=== PATIENT | male | born 1945 | race Caucasian/White ===

== ENCOUNTER 2023-02-10 11:54 | Outpatient (OUT) | payer MEDICARE, MEDICAID, SELFPAY ==
[2023-02-10 12:50] LABS: Basophils Percent Auto 0.4 % (0.2-2.0); Eosinophils Absolute Auto 0.1 10^3/uL (0.0-0.7); Eosinophils Percent Auto 1.3 % (0.9-7.0); Hematocrit 43.6 % (42.0-54.0); Immature Granulocytes Abs Auto 0.02 10^3/uL (0.00-0.03); Immature Granulocytes Pct Auto 0.3 % (0.0-0.5); Lymphocytes Absolute Auto 1.3 10^3/uL (1.2-3.8); Lymphocytes Percent Auto 18.8 % (20.5-60.0); Mean Corpuscular HGB Conc 32.1 g/dL (29.9-35.2); Mean Corpuscular Hemoglobin 28.3 pg (25.9-34.0); Mean Corpuscular Volume 88.1 fL (80.0-94.0); Mean Platelet Volume 12.8 fL (9.5-13.5); Monocytes Absolute Auto 0.7 10^3/uL (0.3-0.8); Monocytes Percent Auto 9.9 % (1.7-12.0); Neutrophils Absolute Auto 4.7 10^3/uL (1.4-6.5); Neutrophils Percent Auto 69.3 % (43.0-75.0); Platelet Count 153 10^3/uL (150-450); Red Blood Count 4.95 10^6/uL (4.70-6.10); Red Cell Distribution Width 14.8 % (11.0-15.0); White Blood Count 6.8 10^3/uL (4.0-11.0)
[2023-02-10 14:02] LABS: Alanine Aminotransferase 16 U/L (16-63); Albumin Globulin Ratio 0.9; Albumin Level 3.4 g/dL (3.4-5.0); Alkaline Phosphatase 77 U/L (46-116); Anion Gap 10.3; Aspartate Amino Transferase 18 U/L (15-37); BUN Creatinine Ratio 11.3; Bilirubin Total 0.7 mg/dL (0.2-1.0); Calcium 9.4 mg/dL (8.5-10.1); Carbon Dioxide 29.7 mmol/L (21.0-32.0); Chloride 104 mmol/L (98-107); Chol HDL Ratio 2.6; Cholesterol 108 mg/dL (<=200); Estimated GFR (African America >60 (>=60); Estimated GFR (Non-African Ame 52 (>=60); Globulin 3.6 g/dL; Glucose 124 mg/dL (74-106); HDL Cholesterol 42 mg/dL (40-60); LDL Cholesterol Calculated 52.6 mg/dL; Sodium 140 mmol/L (136-145); Triglycerides 67 mg/dL (<=150); Uric Acid 9.3 mg/dL (3.5-7.2); VLDL CHOLESTEROL 13.4 mg/dL
== END 2023-02-10 11:55 ==
LOC: LAB 12:00
PROVIDERS: PCP Internal Medicine; Visit Provider Internal Medicine
DX: J44.9 Chronic obstructive pulmonary disease, unspecified (principal); I73.9 Peripheral vascular disease, unspecified; F33.9 Major depressive disorder, recurrent, unspecified; I48.0 Paroxysmal atrial fibrillation; N18.31 Chronic kidney disease, stage 3a; I50.43 Acute on chronic combined systolic (congestive) and diastolic (congestive) heart failure; M48.05 Spinal stenosis, thoracolumbar region; E78.00 Pure hypercholesterolemia, unspecified; I13.0 Hypertensive heart and chronic kidney disease with heart failure and stage 1 through stage 4 chronic kidney disease, or unspecified chronic kidney disease; E79.0 Hyperuricemia without signs of inflammatory arthritis and tophaceous disease
CPT/HCPCS: 36415; 80053; 80061; 84550; 85025

== ENCOUNTER 2023-08-26 13:36 | Outpatient (OUT) | payer MEDICARE, MEDICAID, SELFPAY ==
--- NOTE | 2023-08-26 | XR_ITS ---
[place] [id number] Patient Name: CHOCO WHITE MRN: [id number] date: 1945 Sex: M Assigned Patient Location: [facility] Current Patient Location: Accession/Order Number: [id number] Exam Date: 08/26/2023 14:30 Report Date: 08/28/2023 06:56 At the request of: SAMEER DAVIS Procedure: XR foot LT min 3V PROCEDURE: XR ankle LT min 3V, XR foot LT min 3V HISTORY: LEFT ANKLE PAIN COMPARISON: None. 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 Old, ununited fracture of the lateral malleolus above the level of the ankle joint . Mild degenerative changes of the midfoot and first metatarsophalangeal joint. SOFT TISSUES:Soft tissue swelling surrounding the ankle. Marked atherosclerotic disease. EFFUSION:None visible. OTHER: Negative. XR/XR foot LT min 3V IMPRESSION: 1. Remote fracture of lateral malleolus without visible osseous union. 2. 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 Electronically authenticated by: MABEL BARCLAY Date: 08/28/2023 06:56
--- NOTE | 2023-08-26 | XR_ITS ---
[place] [id number] Patient Name: CHOCO WHITE MRN: [id number] date: 1945 Sex: M Assigned Patient Location: [facility] Current Patient Location: Accession/Order Number: [id number] Exam Date: 08/26/2023 14:30 Report Date: 08/28/2023 06:56 At the request of: SAMEER DAVIS Procedure: XR ankle LT min 3V PROCEDURE: XR ankle LT min 3V, XR foot LT min 3V HISTORY: LEFT ANKLE PAIN COMPARISON: None. 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 Old, ununited fracture of the lateral malleolus above the level of the ankle joint . Mild degenerative changes of the midfoot and first metatarsophalangeal joint. SOFT TISSUES:Soft tissue swelling surrounding the ankle. Marked atherosclerotic disease. EFFUSION:None visible. OTHER: Negative. XR/XR ankle LT min 3V IMPRESSION: 1. Remote fracture of lateral malleolus without visible osseous union. 2. 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 Electronically authenticated by: MABEL BARCLAY Date: 08/28/2023 06:56
== END 2023-08-26 13:37 | disposition home or self-care (01) ==
LOC: RAD 13:39
PROVIDERS: PCP Internal Medicine; Visit Provider Podiatrist Foot & Ankle Surgery
DX: M79.672 Pain in left foot (principal); M25.572 Pain in left ankle and joints of left foot; M19.072 Primary osteoarthritis, left ankle and foot
CPT/HCPCS: 73610; 73630

== ENCOUNTER 2023-09-07 12:20 | Outpatient (OUT) | payer MEDICARE, MEDICAID, SELFPAY ==
--- OUTSIDE RECORDS SUMMARY | 2023-09-07 12:26 | XMS_ITS | CCD ---
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 Name Role Phone PROVIDER, UNKNOWN Attending Unavailable PROVIDER, UNKNOWN Admitting Unavailable PROVIDER, UNKNOWN Attending Unavailable PROVIDER, UNKNOWN Admitting Unavailable PROVIDER, UNKNOWN Attending Unavailable PROVIDER, UNKNOWN Admitting Unavailable PATIENT, SELF Referring Unavailable PROVIDER, UNKNOWN Attending Unavailable PROVIDER, UNKNOWN Admitting Unavailable PROVIDER, UNKNOWN Attending Unavailable PROVIDER, UNKNOWN Admitting Unavailable PROVIDER, UNKNOWN Admitting Unavailable PROVIDER, UNKNOWN Attending Unavailable PROVIDER, UNKNOWN Attending Unavailable PROVIDER, UNKNOWN Admitting Unavailable VALLIER, DWAINE A. Referring Unavailable PROVIDER, UNKNOWN Attending Unavailable VALLIER, DWAINE A. Referring Unavailable PROVIDER, UNKNOWN Admitting Unavailable PROVIDER, UNKNOWN Attending Unavailable PROVIDER, UNKNOWN Admitting Unavailable VALLIER, DWAINE A. Referring Unavailable PROVIDER, UNKNOWN Attending Unavailable PROVIDER, UNKNOWN Admitting Unavailable VALLIER, DWAINE A. Referring Unavailable PROVIDER, UNKNOWN Attending Unavailable PROVIDER, UNKNOWN Admitting Unavailable PROVIDER, UNKNOWN Attending Unavailable PROVIDER, UNKNOWN Admitting Unavailable PROVIDER, UNKNOWN Admitting Unavailable PROVIDER, UNKNOWN Attending Unavailable PROVIDER, UNKNOWN Attending Unavailable PROVIDER, UNKNOWN Admitting Unavailable PROVIDER, UNKNOWN Admitting Unavailable PROVIDER, UNKNOWN Attending Unavailable PROVIDER, UNKNOWN Admitting Unavailable PROVIDER, UNKNOWN Attending Unavailable PROVIDER, UNKNOWN Attending Unavailable PROVIDER, UNKNOWN Admitting Unavailable PROVIDER, UNKNOWN Admitting Unavailable PROVIDER, UNKNOWN Attending Unavailable PROVIDER, UNKNOWN Admitting Unavailable PROVIDER, UNKNOWN Attending Unavailable PROVIDER, UNKNOWN Admitting Unavailable PROVIDER, UNKNOWN Attending Unavailable PROVIDER, UNKNOWN Attending Unavailable PROVIDER, UNKNOWN Admitting Unavailable PATIENT, SELF Referring Unavailable PROVIDER, UNKNOWN Attending Unavailable PROVIDER, UNKNOWN Admitting Unavailable PROVIDER, UNKNOWN Admitting Unavailable PROVIDER, UNKNOWN Attending Unavailable HAJDARI, ASTRIT Referring Unavailable SEGOVIA, NIMITT Admitting Unavailable PROVIDER, UNKNOWN Attending Unavailable HAJDARI, ASTRIT Referring Unavailable SEGOVIA, NIMITT Admitting Unavailable PROVIDER, UNKNOWN Attending Unavailable HAJDARI, ASTRIT Referring Unavailable PROVIDER, UNKNOWN Attending Unavailable PROVIDER, UNKNOWN Admitting Unavailable PROVIDER, UNKNOWN Admitting Unavailable PROVIDER, UNKNOWN Attending Unavailable PROVIDER, UNKNOWN Attending Unavailable PROVIDER, UNKNOWN Admitting Unavailable PROVIDER, UNKNOWN Attending Unavailable PROVIDER, UNKNOWN Admitting Unavailable PROVIDER, UNKNOWN Attending Unavailable PROVIDER, UNKNOWN Admitting Unavailable PROVIDER, UNKNOWN Attending Unavailable PROVIDER, UNKNOWN Admitting Unavailable PROVIDER, UNKNOWN Admitting Unavailable PROVIDER, UNKNOWN Attending Unavailable HAJDARI, ASTRIT Referring Unavailable CARLA MORSE Attending Unavailable CONSULT, IP ORTHOPAEDIC TRAUMA Consulting U navailable SEGOVIA, NIMITT Admitting Unavailable REQUEST, IP PHYSICAL THERAPY SERVICE Consulting Unavailable REQUEST, IP OCCUPATIONAL THERAPY SERVICE Consult ing Unavailable CONSULT, NEUROCRITICAL Consulting Unavailab le CONSULT, IP SURGERY VASCULAR Consulting Usha vailable CONSULT, IP SURGERY NEURO Consulting Unavai lable REQUEST, IP HYPERBARIC NURSE SERVICE Consul ting Unavailable CONSULT, IP CARDIOLOGY ELECTROPHYSIOLOGY (EP) Co nsulting Unavailable REQUEST, IP BANDER OPERATOR SERVICE Consulting Unavaila ble CONSULT, IP DENTISTRY ADULT Consulting Unav ailable HAJDARI, ASTRIT Referring Unavailable SEGOVIA, NIMITT Admitting Unavailable PROVIDER, UNKNOWN Attending Unavailable PROVIDER, UNKNOWN Attending Unavailable PROVIDER, UNKNOWN Admitting Unavailable PATIENT, SELF Referring Unavailable PROVIDER, UNKNOWN Attending Unavailable PROVIDER, UNKNOWN Admitting Unavailable PROVIDER, UNKNOWN Attending Unavailable PROVIDER, UNKNOWN Admitting Unavailable DWAINE SANTOS Referring Unavailable DWAINE SANTOS Attending Unavailable DWAINE SANTOS Referring Unavailable DWAINE SANTOS Admitting Unavailable PROVIDER, UNKNOWN Admitting Unavailable PROVIDER, UNKNOWN Attending Unavailable PROVIDER, UNKNOWN Admitting Unavailable PROVIDER, UNKNOWN Attending Unavailable PROVIDER, UNKNOWN Admitting Unavailable PROVIDER, UNKNOWN Attending Unavailable Lopze MCKINNEY Attending Unavailable DR KARTHIK IRELAND Admitting Unavailable DR KARTHIK IRELAND Attending Unavailable DR KARTHIK IRELAND Primary Care Unavailable DR KARTHIK IRELAND Consulting Unavailable DR KARTHIK IRELAND Admitting Unavailable DR KARTHIK IRELAND Attending Unavailable DR KARTHIK IRELAND Primary Care Unavailable DR KARTHIK IRELAND Consulting Unavailable DR KARTHIK IRELAND Admitting Unavailable DR KARTHIK IRELAND Attending Unavailable DR KARTHIK IRELAND Primary Care Unavailable DR KARTHIK IRELAND Consulting Unavailable Allergies Allergy Classification Reported Allergen(s) Allergy Type Date of Onset Reaction(s) Facility (1 source) SULFA DRUGS CROSS REACTORS; Translations: [SULFA DRUGS CROSS REACTORS] Propensity to adverse reactions to drug (disorder) 1 [facility] Repository (1 source) Sulfamethoxazole ; Translations: [sulfamethoxazol e] Drug Allergy [facility] Repository (1 source) Unable to obtain; Translations: [Unable to obtain] Propensity to adverse reactions (disorder) [facility] Repository (1 source) Sulfonamides (Antibiotic) Drug allergy (disorder) 4 [facility] Repository Problems Active Problems Problem Classification Problem Date Documented Date Episodic/Chronic Cardiac dysrhythmias (2 sources) Unspecified atrial fibrillation; Translations: [Paroxysmal atrial fibrillation] Onset: 2 Chronic Chronic obstructive pulmonary disease and bronchiectasis (5 sources) Chronic obstructive pulmonary disease, unspecified; Translations: [COPD UNSPECIFIED] Onset: 2 Chronic Congestive heart failure; nonhypertensive (1 source) Chronic combined systolic (congestive) and diastolic (congestive) heart failure; Translations: [CHRON COMB SYSTOLIC AND DIASTOLIC CHF] Onset: 2 Chronic Coronary atherosclerosis and other heart disease (1 source) Atherosclerotic heart disease of [place] coronary artery without angina pectoris; Translations: [ASHD NEZ PERCE CA W/O ANGINA PECTORIS] Onset: 2 Chronic Disorders of lipid metabolism (1 source) Pure hypercholesterolemia, unspecified; Translations: [PURE HYPERCHOLESTEROLEMIA UNSPEC] Onset: 2 Chronic Essential hypertension (5 sources) Essential (primary) hypertension; Translations: [ESSENTIAL PRIMARY HYPERTENSION] Onset: 2 Chronic Hypertension with complications and secondary hypertension (1 source) Hypertensive heart disease with heart failure; Translations: [HTN HEART DISEASE W/HEART FAIL] Onset: 2 Chronic Nutritional deficiencies (1 source) Vitamin D deficiency, unspecified; Translations: [VITAMIN D DEFICIENCY UNSPECIFIED] Onset: 2 Chronic Other nervous system disorders (1 source) Chronic pain syndrome; Translations: [CHRONIC PAIN SYNDROME] Onset: 2 Chronic Other nutritional; endocrine; and metabolic disorders (1 source) Hyperuricemia without signs of inflammatory arthritis and tophaceous disease; Translations: [HU W/O SIGNS IA AND TOPHACEOUS DZ] Onset: 3 Episodic Past or Other Problems Problem Classification Problem Date Documented Da te Episodic/Chronic Acute and unspecified renal failure (1 source) Acute kidney failure, unspecified; Translations: [ACUTE KIDNEY FAILURE UNSPECIFIED] Onset: 07-13-2022 Episodic Deficiency and other anemia (1 source) Anemia, unspecified; Translations: [ANEMIA UNSPECIFIED] Onset: 07-13-2022 Episodic Other aftercare (1 source) Other supervisor intermediates (current) drug therapy; Translations: [OTH SENIOR CARE CURRENT DRUG THERAPY] Onset: 07-13-2022 Episodic Other screening for suspected conditions (not mental disorders or infectious disease) (4 sources) Encounter for screening for malignant neoplasm of prostate; Translations: [ENC SCREEN MALIG NEOPLASM PROSTATE] Onset: 07-08-2022 Episodic Residual codes; unclassified (1 source) Edema, unspecified; Translations: [EDEMA UNSPECIFIED] Onset: 02-21-2022 Episodic Results Test Name Value Interpretation Reference Range Facility CBC AUTO DIFFon 11-10-2022 BASO # 0.0 103/ul Normal 0.0-0.1 [facility] Comment on above: Performed By: #### C BC #### [facility] [address] [place] [address] Dr. Karen Marie Basophils/100 WBC (Bld) 0.4 % Normal 0.2-2.0 [facility] Comment on above: Performed By: #### C BC #### [facility] [address] [address] [address] Karen Marie EO # 0.1 103/ul Normal 0.0-0.7 [facility] Comment on above: Performed By: #### C BC #### [facility] [address] [address] [address] Karen Marie Eosinophils/100 WBC (Bld) 1.9 % Normal 0.9-7.0 [facility] Comment on above: Performed By: #### C BC #### [facility] [address] [address] [address] Karen Marie Erythrocyte distribution width (RBC) [Ratio] 16.1 % Critically high 11.0-15.0 [facility] Comment on above: Performed By: #### C BC #### [facility] [address] [place] [address] Dr. Karen Marie Hematocrit (Bld) [Volume fraction] 42.5 % Normal 42.0-54.0 [facility] Comment on above: Performed By: #### C BC #### [facility] [address] [address] [address] Karen Marie Hemoglobin (Bld) [Mass/Vol] 13.5 g/dL Critically low 14.0-18.0 [facility] Comment on above: Performed By: #### C BC #### [facility] [address] [address] [address] Karen Marie IG # 0.03 10e3/ul Normal 0.00-0.03 [facility] Comment on above: Performed By: #### C BC #### [facility] [address] [place] [address] Dr. Karen Marie IG % 0.4 % Normal 0.0-0.5 [facility] Comment on above: Performed By: #### C BC #### [facility] [address] [place] [address] Dr. Karen Marie LYMPH # 1.7 103/ul Normal 1.2-3.8 [facility] Comment on above: Performed By: #### C BC #### [facility] [address] [place] [address] Dr. Karen Marie Lymphocytes/100 WBC (Bld) 22.3 % Normal 20.5-60.0 [facility] Comment on above: Performed By: #### C BC #### [facility] [address] [place] [address] Dr. Karen Marie MANUAL DIFF REQ NO Normal [facility] Comment on above: Performed By: #### C BC #### [facility] [address] [place] [address] Dr. Karen Marie MCH (RBC) [Entitic mass] 27.8 pg Normal 25.9-34.0 [facility] Comment on above: Performed By: #### C BC #### [facility] [address] [place] [address] Dr. Karen Marie MCHC (RBC) [Mass/Vol] 31.8 g/dL Normal 29.9-35.2 [facility] Comment on above: Performed By: #### C BC #### [facility] [address] [address] [address] Karen Marie MCV (RBC) [Entitic vol] 87.4 fL Normal 80.0-94.0 [facility] Comment on above: Performed By: #### C BC #### [facility] [address] [address] [address] Karen Marie MONO # 0.9 103/ul Critically high 0.3-0.8 [facility] Comment on above: Performed By: #### C BC #### [facility] [address] [address] [address] Karen Marie Monocytes/100 WBC (Bld) 11.4 % Normal 1.7-12.0 [facility] Comment on above: Performed By: #### C BC #### [facility] [address] [place] [address] Dr. Karen Marie NEUT # 4.7 103/ul Normal 1.4-6.5 [facility] Comment on above: Performed By: #### C BC #### [facility] [address] [address] [address] Karen Marie Neutrophils/100 WBC (Bld) 63.6 % Normal 43.0-75.0 [facility] Comment on above: Performed By: #### C BC #### [facility] [address] [address] [address] Karen Marie Platelet mean volume (Bld) [Entitic vol] 11.9 fL Normal 9.5-13.5 [facility] Comment on above: Performed By: #### C BC #### [facility] [address] [address] [address] Karen Marie PLT 162 103/ul Normal 150-450 [facility] Comment on above: Performed By: #### C BC #### [facility] [address] [address] [address] Karen Marie RBC 4.86 106/ul Normal 4.70-6.10 [facility] Comment on above: Performed By: #### C BC #### [facility] [address] [address] [address] Karen Marie WBC 7.4 103/ul Normal 4.0-11.0 [facility] Comment on above: Performed By: #### C BC #### [facility] [address] [address] [address] Karen Marie PROF 14(COMP METB)on 023 Albumin [Mass/Vol] 3.8 g/dL Normal 3.4-5.0 [facility] Comment on above: Performed By: #### P SAD, FERR, FETIBC #### [facility] [address] [address] [address] Karen Marie Albumin/Globulin [Mass ratio] 1.1 {ratio} Normal [facility] Comment on above: Performed By: #### P SAD, FERR, FETIBC #### [facility] [address] [address] [address] Karen Marie ALP [Catalytic activity/Vol] 79 U/L Normal 46-116 [facility] Comment on above: Performed By: #### P SAD, FERR, FETIBC #### [facility] [address] [address] [address] Karen Marie ALT [Catalytic activity/Vol] 15 U/L Critically low 16-63 [facility] Comment on above: Performed By: #### P SAD, FERR, FETIBC #### [facility] [address] [address] [address] Karen Marie Anion gap [Moles/Vol] 12.3 mmol/L Normal [facility] Comment on above: Performed By: #### P SAD, FERR, FETIBC #### [facility] [address] [address] [address] Karen Marie AST [Catalytic activity/Vol] 17 U/L Normal 15-37 [facility] Comment on above: Performed By: #### P SAD, FERR, FETIBC #### [facility] [address] [address] [address] Karen Marie Bilirubin [Mass/Vol] 0.9 mg/dL Normal 0.2-1.0 [facility] Comment on above: Performed By: #### P SAD, FERR, FETIBC #### [facility] [address] [address] [address] Karen Marie Calcium [Mass/Vol] 9.3 mg/dL Normal 8.5-10.1 [facility] Comment on above: Performed By: #### P SAD, FERR, FETIBC #### [facility] [address] [place] [address] Dr. Karen Marie Chloride [Moles/Vol] 103 mmol/L Normal 98-107 [facility] Comment on above: Performed By: #### P SAD, FERR, FETIBC #### [facility] [address] [place] [address] Dr. Karen Marie CO2 [Moles/Vol] 30.7 mmol/L Normal 21.0-32.0 [facility] Comment on above: Performed By: #### P SAD, FERR, FETIBC #### [facility] [address] [place] [address] Dr. Karen Marie Creatinine [Mass/Vol] 1.37 mg/dL Critically high 0.70-1.30 [facility] Comment on above: Performed By: #### P SAD, FERR, FETIBC #### [facility] [address] [place] [address] Dr. Karen Marie EGFR-AF GERMAN >60 Normal >=60 [facility] Comment on above: Performed By: #### P SAD, FERR, FETIBC #### [facility] [address] [place] [address] Dr. Karen Marie EGFR-NON AF GERMAN 51 mL/min/1.73m2 Critically low >=60 [facility] Comment on above: Performed By: #### P SAD, FERR, FETIBC #### [facility] [address] [place] [address] Dr. Karen Marie Globulin (S) [Mass/Vol] 3.5 g/dL Normal [facility] Comment on above: Performed By: #### P SAD, FERR, FETIBC #### [facility] [address] [address] [address] Karen Marie Glucose [Mass/Vol] 102 mg/dL Normal 74-106 [facility] Comment on above: Performed By: #### P SAD, FERR, FETIBC #### [facility] [address] [place] [address] Dr. Karen Marie Potassium [Moles/Vol] 4.0 mmol/L Normal 3.5-5.1 [facility] Comment on above: Performed By: #### P SAD, FERR, FETIBC #### [facility] [address] [place] [address] Dr. Karen Marie Protein [Mass/Vol] 7.3 g/dL Normal 6.4-8.2 [facility] Comment on above: Performed By: #### P SAD, FERR, FETIBC #### [facility] [address] [place] [address] Dr. Karen Marie Sodium [Moles/Vol] 142 mmol/L Normal 136-145 [facility] Comment on above: Performed By: #### P SAD, FERR, FETIBC #### [facility] [address] [place] [address] Dr. Karen Marie Urea nitrogen [Mass/Vol] 16.0 mg/dL Normal 7.0-18.0 [facility] Comment on above: Performed By: #### P SAD, FERR, FETIBC #### [facility] [address] [place] [address] Dr. Karen Marie Urea nitrogen/Creatinine [Mass ratio] 11.7 mg/mg Normal [facility] Comment on above: Performed By: #### P SAD, FERR, FETIBC #### [facility] [address] [place] [address] Dr. Karen Marie URIC ACID SERUMon 11-10-2022 Urate [Mass/Vol] 8.9 mg/dL Critically high 3.5-7.2 [facility] Comment on above: Performed By: #### P SAD, FERR, FETIBC #### [facility] [address] [place] [address] Dr. Karen Marie Lab Reportson 07-14-2022 Lab Reports [id number] #[id number]:127 Normal [facility] Lab Reports [id number] #[id number]:127 Normal [facility] CBC AUTO DIFFon 07-08-2022 BASO # 0.0 103/ul Normal 0.0-0.1 [facility] Comment on above: Performed By: #### P SAD, FERR, FETIBC #### [facility] [address] [address] [address] Karen Marie Basophils/100 WBC (Bld) 0.4 % Normal 0.2-2.0 [facility] Comment on above: Performed By: #### P SAD, FERR, FETIBC #### [facility] [address] [place] [address] Dr. Karen Marie EO # 0.1 103/ul Normal 0.0-0.7 [facility] Comment on above: Performed By: #### P SAD, FERR, FETIBC #### [facility] [address] [address] [address] Karen Marie Eosinophils/100 WBC (Bld) 1.7 % Normal 0.9-7.0 [facility] Comment on above: Performed By: #### P SAD, FERR, FETIBC #### [facility] [address] [address] [address] Karen Marie Erythrocyte distribution width (RBC) [Ratio] 13.6 % Normal 11.0-15.0 [facility] Comment on above: Performed By: #### P SAD, FERR, FETIBC #### [facility] [address] [place] [address] Dr. Karen Marie Hematocrit (Bld) [Volume fraction] 43.3 % Normal 42.0-54.0 [facility] Comment on above: Performed By: #### P SAD, FERR, FETIBC #### [facility] [address] [place] [address] Dr. Karen Marie Hemoglobin (Bld) [Mass/Vol] 14.3 g/dL Normal 14.0-18.0 [facility] Comment on above: Performed By: #### P SAD, FERR, FETIBC #### [facility] [address] [place] [address] Dr. Karen Marie IG # 0.01 10e3/ul Normal 0.00-0.03 [facility] Comment on above: Performed By: #### P SAD, FERR, FETIBC #### [facility] [address] [place] [address] Dr. Karen Marie IG % 0.1 % Normal 0.0-0.5 [facility] Comment on above: Performed By: #### P SAD, FERR, FETIBC #### [facility] [address] [place] [address] Dr. Karen Marie LYMPH # 1.9 103/ul Normal 1.2-3.8 [facility] Comment on above: Performed By: #### P SAD, FERR, FETIBC #### [facility] [address] [place] [address] Dr. Karen Marie Lymphocytes/100 WBC (Bld) 27.7 % Normal 20.5-60.0 [facility] Comment on above: Performed By: #### P SAD, FERR, FETIBC #### [facility] [address] [place] [address] Dr. Karen Marie MANUAL DIFF REQ NO Normal [facility] Comment on above: Performed By: #### P SAD, FERR, FETIBC #### [facility] [address] [place] [address] Dr. Karen Marie MCH (RBC) [Entitic mass] 29.9 pg Normal 25.9-34.0 [facility] Comment on above: Performed By: #### P SAD, FERR, FETIBC #### [facility] [address] [place] [address] Dr. Karen Marie MCHC (RBC) [Mass/Vol] 33.0 g/dL Normal 29.9-35.2 [facility] Comment on above: Performed By: #### P SAD, FERR, FETIBC #### [facility] [address] [place] [address] Dr. Karen Marie MCV (RBC) [Entitic vol] 90.6 fL Normal 80.0-94.0 [facility] Comment on above: Performed By: #### P SAD, FERR, FETIBC #### [facility] [address] [place] [address] Dr. Karen Marie MONO # 0.8 103/ul Normal 0.3-0.8 [facility] Comment on above: Performed By: #### P SAD, FERR, FETIBC #### [facility] [address] [place] [address] Dr. Karen Marie Monocytes/100 WBC (Bld) 11.1 % Normal 1.7-12.0 [facility] Comment on above: Performed By: #### P SAD, FERR, FETIBC #### [facility] [address] [place] [address] Dr. Karen Marie NEUT # 4.1 103/ul Normal 1.4-6.5 [facility] Comment on above: Performed By: #### P SAD, FERR, FETIBC #### [facility] [address] [place] [address] Dr. Karen Marie Neutrophils/100 WBC (Bld) 59.0 % Normal 43.0-75.0 [facility] Comment on above: Performed By: #### P SAD, FERR, FETIBC #### [facility] [address] [place] [address] Dr. Karen Marie Platelet mean volume (Bld) [Entitic vol] 11.3 fL Normal 9.5-13.5 [facility] Comment on above: Performed By: #### P SAD, FERR, FETIBC #### [facility] [address] [place] [address] Dr. Karen Marie PLT 175 103/ul Normal 150-450 [facility] Comment on above: Performed By: #### P SAD, FERR, FETIBC #### [facility] [address] [place] [address] Dr. Karen Marie RBC 4.78 106/ul Normal 4.70-6.10 [facility] Comment on above: Performed By: #### P SAD, FERR, FETIBC #### [facility] [address] [address] [address] Karen Marie WBC 7.0 103/ul Normal 4.0-11.0 [facility] Comment on above: Performed By: #### P SAD, FERR, FETIBC #### [facility] [facility] [address] [address] [address] Karen Marie FERRITINon 07-08-2022 Ferritin [Mass/Vol] 43.0 ng/mL Normal 26.0-388.0 [facility] Comment on above: Performed By: #### P SAD, FERR, FETIBC #### [facility] [address] [place] [address] Dr. Karen Marie IRON AND TIBCon 07-08-2022 % SATURATION 12.7 % Normal [facility] Comment on above: Performed By: #### P SAD, FERR, FETIBC #### [facility] [address] [address] [address] Karen Marie Iron [Mass/Vol] 46.0 ug/dL Critically low 65.0-175.0 [facility] Comment on above: Performed By: #### P SAD, FERR, FETIBC #### [facility] [address] [place] [address] Dr. Karen Marie TIBC DIRECT 363.0 ug/dL Normal 250.0-450.0 [facility] Comment on above: Performed By: #### P SAD, FERR, FETIBC #### [facility] [address] [place] [address] Dr. Karen Marie LIPID PROFILEon 07-08-2022 CHOL-HDL RATIO NORM SEE BELOW Normal [facility] Comment on above: Result Comment: 3.3 - 4.4 LOW RISK 4.4 - 7.1 AVERAGE RISK 7.1 - 11.0 MODERATE RISK >11.0 HIGH RISK Performed By: #### L IPID, CMP, URIC, TSH #### [facility] [address] [address] [address] Karen Marie Cholesterol [Mass/Vol] 131 mg/dL Normal <=200 [facility] Comment on above: Performed By: #### L IPID, CMP, URIC, TSH #### [facility] [address] [address] [address] Karen Marie Cholesterol in HDL [Mass/Vol] 52 mg/dL Normal 40-60 [facility] Comment on above: Performed By: #### L IPID, CMP, URIC, TSH #### [facility] [address] [address] [address] Karen Marie Cholesterol in LDL [Mass/Vol] 59.2 mg/dL Normal [facility] Comment on above: Performed By: #### L IPID, CMP, URIC, TSH #### [facility] [address] [address] [address] Karen Marie Cholesterol.total/Chol esterol in HDL [Mass ratio] 2.5 {ratio} Normal [facility] Comment on above: Performed By: #### L IPID, CMP, URIC, TSH #### [facility] [address] [address] [address] Karen Marie HDL NORMAL > or = 60 mg/dl - LOW CARDIOVASCULAR RISK <40 mg/dl - HIGH CARDIOVASCULAR RISK Normal [facility] Comment on above: Performed By: #### L IPID, CMP, URIC, TSH #### [facility] [address] [address] [address] Karen Marie LDL CALC NORMAL SEE BELOW Normal [facility] Comment on above: Result Comment: <100 mg/dl OPTIMAL 100 - 129 mg/dl NEAR OR ABOVE OPTIMAL 130 - 159 mg/dl BORDERLINE HIGH 160 - 189 mg/dl HIGH >190 mg/dl VERY HIGH Performed By: #### L IPID, CMP, URIC, TSH #### [facility] [address] [address] [address] Karen Marie Triglyceride [Mass/Vol] 99 mg/dL Normal <=150 [facility] Comment on above: Performed By: #### L IPID, CMP, URIC, TSH #### [facility] [address] [address] [address] Karen Marie VLDL CALC 19.8 mg/dL Normal [facility] Comment on above: Performed By: #### L IPID, CMP, URIC, TSH #### [facility] [address] [address] [address] Karen Marie PROF 14(COMP METB)on 022 Albumin [Mass/Vol] 3.5 g/dL Normal 3.4-5.0 [facility] Comment on above: Performed By: #### L IPID, CMP, URIC, TSH #### [facility] [address] [address] [address] Karen Marie Albumin/Globulin [Mass ratio] 0.9 {ratio} Normal [facility] Comment on above: Performed By: #### L IPID, CMP, URIC, TSH #### [facility] [address] [place] [address] Dr. Karen Marie ALP [Catalytic activity/Vol] 83 U/L Normal 46-116 [facility] Comment on above: Performed By: #### L IPID, CMP, URIC, TSH #### [facility] [address] [address] [address] Karen Marie ALT [Catalytic activity/Vol] 13 U/L Critically low 16-63 [facility] Comment on above: Performed By: #### L IPID, CMP, URIC, TSH #### [facility] [address] [address] [address] Karen Marie Anion gap [Moles/Vol] 6.9 mmol/L Normal [facility] Comment on above: Performed By: #### L IPID, CMP, URIC, TSH #### [facility] [address] [address] [address] Karen Marie AST [Catalytic activity/Vol] 25 U/L Normal 15-37 [facility] Comment on above: Performed By: #### L IPID, CMP, URIC, TSH #### [facility] [address] [address] [address] Karen Marie Bilirubin [Mass/Vol] 0.5 mg/dL Normal 0.2-1.0 [facility] Comment on above: Performed By: #### L IPID, CMP, URIC, TSH #### [facility] [address] [place] [address] Dr. Karen Marie Calcium [Mass/Vol] 9.9 mg/dL Normal 8.5-10.1 [facility] Comment on above: Performed By: #### L IPID, CMP, URIC, TSH #### [facility] [address] [place] [address] Dr. Karen Marie Chloride [Moles/Vol] 101 mmol/L Normal 98-107 [facility] Comment on above: Performed By: #### L IPID, CMP, URIC, TSH #### [facility] [address] [place] [address] Dr. Karen Marie CO2 [Moles/Vol] 31.5 mmol/L Normal 21.0-32.0 [facility] Comment on above: Performed By: #### L IPID, CMP, URIC, TSH #### [facility] [address] [place] [address] Dr. Karen Marie Creatinine [Mass/Vol] 1.51 mg/dL Critically high 0.70-1.30 [facility] Comment on above: Performed By: #### L IPID, CMP, URIC, TSH #### [facility] [address] [place] [address] Dr. Karen Marie EGFR-AF GERMAN 55 mL/min/1.73m2 Critically low >=60 [facility] Comment on above: Performed By: #### L IPID, CMP, URIC, TSH #### [facility] [address] [place] [address] Dr. Karen Marie EGFR-NON AF GERMAN 45 mL/min/1.73m2 Critically low >=60 [facility] Comment on above: Performed By: #### L IPID, CMP, URIC, TSH #### [facility] [address] [place] [address] Dr. Karen Marie Globulin (S) [Mass/Vol] 3.9 g/dL Normal [facility] Comment on above: Performed By: #### L IPID, CMP, URIC, TSH #### [facility] [address] [place] [address] Dr. Karen Marie Glucose [Mass/Vol] 124 mg/dL Critically high 74-106 [facility] Comment on above: Performed By: #### L IPID, CMP, URIC, TSH #### [facility] [address] [place] [address] Dr. Karen Marie Potassium [Moles/Vol] 3.4 mmol/L Critically low 3.5-5.1 [facility] Comment on above: Performed By: #### L IPID, CMP, URIC, TSH #### [facility] [address] [place] [address] Dr. Karen Marie Protein [Mass/Vol] 7.4 g/dL Normal 6.4-8.2 [facility] Comment on above: Performed By: #### L IPID, CMP, URIC, TSH #### [facility] [address] [place] [address] Dr. Karen Marie Sodium [Moles/Vol] 136 mmol/L Normal 136-145 [facility] Comment on above: Performed By: #### L IPID, CMP, URIC, TSH #### [facility] [address] [place] [address] Dr. Karen Marie Urea nitrogen [Mass/Vol] 13.0 mg/dL Normal 7.0-18.0 [facility] Comment on above: Performed By: #### L IPID, CMP, URIC, TSH #### [facility] [address] [place] [address] Dr. Karen Marie Urea nitrogen/Creatinine [Mass ratio] 8.6 mg/mg Normal [facility] Comment on above: Performed By: #### L IPID, CMP, URIC, TSH #### [facility] [address] [place] [address] Dr. Karen Marie TSHon 07-08-2022 TSH 2.103 uIU/mL Normal 0.358-3.740 [facility] Comment on above: Performed By: #### L IPID, CMP, URIC, TSH #### [facility] [address] [place] [address] Dr. Karen Marie URIC ACID SERUMon 07-08-2022 Urate [Mass/Vol] 9.4 mg/dL Critically high 3.5-7.2 [facility] Comment on above: Performed By: #### L IPID, CMP, URIC, TSH #### [facility] [address] [place] [address] Dr. Karen Marie CBC AUTO DIFFon 02-19-2022 BASO # 0.0 103/ul Normal 0.0-0.1 [facility] Comment on above: Performed By: #### C BC #### [facility] [address] [place] [address] Dr. Karen Marie Basophils/100 WBC (Bld) 0.4 % Normal 0.2-2.0 [facility] Comment on above: Performed By: #### C BC #### [facility] [address] [place] [address] Dr. aKren Marie EO # 0.2 103/ul Normal 0.0-0.7 [facility] Comment on above: Performed By: #### C BC #### [facility] [address] [place] [address] Dr. Karen Marie Eosinophils/100 WBC (Bld) 3.2 % Normal 0.9-7.0 [facility] Comment on above: Performed By: #### C BC #### [facility] [address] [place] [address] Dr. Karen Marie Erythrocyte distribution width (RBC) [Ratio] 13.7 % Normal 11.0-15.0 [facility] Comment on above: Performed By: #### C BC #### [facility] [address] [place] [address] Dr. Karen Marie Hematocrit (Bld) [Volume fraction] 43.2 % Normal 42.0-54.0 [facility] Comment on above: Performed By: #### C BC #### [facility] [address] [place] [address] Dr. Karen Marie Hemoglobin (Bld) [Mass/Vol] 13.8 g/dL Critically low 14.0-18.0 [facility] Comment on above: Performed By: #### C BC #### [facility] [address] [place] [address] Dr. Karen Marie IG # 0.03 10e3/ul Normal 0.00-0.03 [facility] Comment on above: Performed By: #### C BC #### [facility] [address] [place] [address] Dr. Karen Marie IG % 0.4 % Normal 0.0-0.5 [facility] Comment on above: Performed By: #### C BC #### [facility] [address] [place] [address] Dr. Karen Marie LYMPH # 1.6 103/ul Normal 1.2-3.8 [facility] Comment on above: Performed By: #### C BC #### [facility] [address] [place] [address] Dr. Karen Marie Lymphocytes/100 WBC (Bld) 23.7 % Normal 20.5-60.0 [facility] Comment on above: Performed By: #### C BC #### [facility] [address] [place] [address] Dr. Karen Marie MANUAL DIFF REQ NO Normal [facility] Comment on above: Performed By: #### C BC #### [facility] [address] [place] [address] Dr. Karen Marie MCH (RBC) [Entitic mass] 30.1 pg Normal 25.9-34.0 [facility] Comment on above: Performed By: #### C BC #### [facility] [address] [place] [address] Dr. Karen Marie MCHC (RBC) [Mass/Vol] 31.9 g/dL Normal 29.9-35.2 [facility] Comment on above: Performed By: #### C BC #### [facility] [address] [place] [address] Dr. Karen Marie MCV (RBC) [Entitic vol] 94.3 fL Critically high 80.0-94.0 [facility] Comment on above: Performed By: #### C BC #### [facility] [address] [address] [address] Karen Marie MONO # 0.8 103/ul Normal 0.3-0.8 [facility] Comment on above: Performed By: #### C BC #### [facility] [address] [address] [address] Karen Marie Monocytes/100 WBC (Bld) 11.7 % Normal 1.7-12.0 [facility] Comment on above: Performed By: #### C BC #### [facility] [address] [address] [address] Karen Marie NEUT # 4.1 103/ul Normal 1.4-6.5 [facility] Comment on above: Performed By: #### C BC #### [facility] [address] [address] [address] Karen Marie Neutrophils/100 WBC (Bld) 60.6 % Normal 43.0-75.0 [facility] Comment on above: Performed By: #### C BC #### [facility] [address] [address] [address] Karen Marie Platelet mean volume (Bld) [Entitic vol] 11.9 fL Normal 9.5-13.5 [facility] Comment on above: Performed By: #### C BC #### [facility] [address] [address] [address] Karen Marie PLT 129 103/ul Critically low 150-450 [facility] Comment on above: Performed By: #### C BC #### [facility] [address] [address] [address] Karen Marie RBC 4.58 106/ul Critically low 4.70-6.10 [facility] Comment on above: Performed By: #### C BC #### [facility] [address] [address] [address] Karen Marie WBC 6.8 103/ul Normal 4.0-11.0 [facility] Comment on above: Performed By: #### C BC #### [facility] [address] [address] [address] Karen Marie PROF CHEM 8 (BAS METB)on Anion gap [Moles/Vol] 11.7 mmol/L Normal Th [facility] Comment on above: Performed By: #### B MP #### [facility] [address] [address] [address] Karen Marie Calcium [Mass/Vol] 9.3 mg/dL Normal 8.5-10.1 [facility] Comment on above: Performed By: #### B MP #### [facility] [address] [address] [address] Karen Marie Chloride [Moles/Vol] 106 mmol/L Normal 98-107 [facility] Comment on above: Performed By: #### B MP #### [facility] [address] [place] [address] Dr. Karen Marie CO2 [Moles/Vol] 28.3 mmol/L Normal 21.0-32.0 [facility] Comment on above: Performed By: #### B MP #### [facility] [address] [address] [address] Karen Marie Creatinine [Mass/Vol] 1.49 mg/dL Critically high 0.70-1.30 [facility] Comment on above: Performed By: #### B MP #### [facility] [address] [address] [address] Karen Marie EGFR-AF GERMAN 56 mL/min/1.73m2 Critically low >=60 [facility] Comment on above: Performed By: #### B MP #### [facility] [address] [address] [address] Karen Marie EGFR-NON AF GERMAN 46 mL/min/1.73m2 Critically low >=60 [facility] Comment on above: Performed By: #### B MP #### [facility] [address] [address] [address] Karen Marie Glucose [Mass/Vol] 101 mg/dL Normal 74-106 [facility] Comment on above: Performed By: #### B MP #### [facility] [address] [place], [place] [address] Dr. Karen Marie Potassium [Moles/Vol] 5.0 mmol/L Normal 3.5-5.1 [facility] Comment on above: Performed By: #### B MP #### [facility] [address] [place], [place] [address] Dr. Karen Marie Sodium [Moles/Vol] 141 mmol/L Normal 136-145 [facility] Comment on above: Performed By: #### B MP #### [facility] [address] [place], [place] [address] Dr. Karen Marie Urea nitrogen [Mass/Vol] 17.0 mg/dL Normal 7.0-18.0 [facility] Comment on above: Performed By: #### B MP #### [facility] [address] [place], [place] [address] Dr. Karen Marie Urea nitrogen/Creatinine [Mass ratio] 11.4 mg/mg Normal [facility] Comment on above: Performed By: #### B MP #### [facility] [address] [place], [place] [address] Dr. Karen Marie XR Foot Complete Left*on XR Foot Complete Left* CLINICAL HISTORY: Left medial foot pain that radiates to medial ankle for the past year. Patient fell one year ago and treated for multiple foot fractures. COMPARISON: None. TECHNIQUE: 3 Views were obtained. FINDINGS: Bones are demineralized. Marginal spurring at the first MTP joint. There is an old fracture of the distal fibula. Periosteal bone formation is seen along the distal fibula. There is fusion of the fifth DIP joint, normal variant. There are atherosclerotic calcifications and in the distal leg arteries. Tibiotalar in not well visualized. No definite acute fracture. IMPRESSION: NO DEFINITE ACUTE FRACTURE OR DISLOCATION. DEGENERATIVE CHANGES FIRST MTP JOINT. BONES ARE DEMINERALIZED. Report reported and signed by Wandy Lees on 10/17/2021 1252 Normal [facility] [employer] Progress Noteson 08-08-2021 [employer] Authentication Interface Message Text Called pt Dec 6 as scheduled-no ans Called pt Dec 7-no ans Normal [facility] Progress Noteson 06-04-2021 [employer] Authentication Interface Message Text Normal [facility] Progress Noteson 06-03-2021 [employer] Authentication Interface Message Text Patient at risk for falls:No Falls Risk protocol implemented: Yes wheelchair in locked position when not in use for transport Normal [facility] XR ANKLE LEFT 3 VIEWSon 10-0 XR ANKLE LEFT 3 VIEWS Normal [facility] Anesthesia Attestationon [employer] Authentication Interface Message Text Normal [facility] Anesthesia Postprocedure Lucretia luationon 05-21-2021 [employer] Authentication Interface Message Text Normal [facility] Anesthesia Preprocedure Eval uationon 05-21-2021 [employer] Authentication Interface Message Text Normal [facility] Anesthesia Transfer Of Careo n 05-21-2021 [employer] Authentication Interface Message Text Normal [facility] H AND Martin 05-21-2021 [employer] Authentication Interface Message Text Normal [facility] OP Noteon 05-21-2021 [employer] Authentication Interface Message Text Normal [facility] Procedureson 05-21-2021 [employer] Authentication Interface Message Text Preop dx: L ankle fx Postop dx: same Proc; Removal pins L ankle () Removal LLE ex fix () Comp:none Plan NWB LLE, rest, elevation RTC Jun 03 Normal [facility] Progress Noteson 04-29-2021 [employer] Authentication Interface Message Text Patient was identified by name and date of . Mayra Trujillo Applied short leg cast and discussed cast care with patient. Normal [facility] [employer] Authentication Interface Message Text Patient was identified by name and date of . Amy Gonzalez RN Patient at risk for falls:yes Falls Risk protocol implemented: Yes wheelchair in locked position when not in use for transport Normal [facility] [employer] Authentication Interface Message Text Normal [facility] XR ANKLE LEFT 3 VIEWSon 04-02 XR ANKLE LEFT 3 VIEWS Normal [facility] Complete Blood Count Auto Di ffon 04-18-2021 Basophils (Bld) [#/Vol] 0.0 10*3/uL Normal 0.0-0.2 [facility] Comment on above: Order Comment: CAMDEN Souza FAX TO Result Comment: PERF ORMED BY: [place] [address] PATHOLOGIST LINING MARKER DAKOTAH SMITH M.D. Performed By: #### C MP, CBC #### [address] Basophils/100 WBC (Bld) 0.5 % Normal . [facility] Comment on above: Order Comment: PLEAS E FAX TO Performed By: #### C MP, CBC #### [address] Eosinophils (Bld) [#/Vol] 0.2 10*3/uL Normal 0.0-0.45 [facility] Comment on above: Order Comment: PLEAS E FAX TO Performed By: #### C MP, CBC #### [address] Eosinophils/100 WBC (Bld) 3.4 % Normal . [facility] Comment on above: Order Comment: PLEAS E FAX TO Performed By: #### C MP, CBC #### [address] Erythrocyte distribution width (RBC) [Ratio] 15.5 % High 12.0-14.8 [facility] Comment on above: Order Comment: PLEAS E FAX TO Performed By: #### C MP, CBC #### [address] Hematocrit (Bld) [Volume fraction] 36.7 % Low 38.8-50.0 [facility] Comment on above: Order Comment: PLEAS E FAX TO Performed By: #### C MP, CBC #### [address] Hemoglobin (Bld) [Mass/Vol] 12.0 g/dL Low 13.0-17.0 [facility] Comment on above: Order Comment: PLEAS E FAX TO Performed By: #### C MP, CBC #### [address] Lymphocytes (Bld) [#/Vol] 1.8 10*3/uL Normal 1.00-4.8 [facility] Comment on above: Order Comment: PLEAS E FAX TO Performed By: #### C MP, CBC #### [address] Lymphocytes/100 WBC (Bld) 35.6 % Normal . [facility] Comment on above: Order Comment: PLEAS E FAX TO Performed By: #### C MP, CBC #### [address] MCH (RBC) [Entitic mass] 30.5 pg Normal 27.5-35.2 [facility] Comment on above: Order Comment: PLEAS E FAX TO Performed By: #### C MP, CBC #### [address] MCV (RBC) [Entitic vol] 93.1 fL Normal 83.5-101 [facility] Comment on above: Order Comment: PLEAS E FAX TO Performed By: #### C MP, CBC #### [address] Mean Corpuscular HGB Conc 32.7 g/dL Normal 32.5-35.6 [facility] Comment on above: Order Comment: PLEAS E FAX TO Performed By: #### C MP, CBC #### [address] Monocytes (Bld) [#/Vol] 0.7 10*3/uL Normal 0.0-0.8 [facility] Comment on above: Order Comment: PLEAS E FAX TO Performed By: #### C MP, CBC #### [facility] [address] [place] [address] [place] Monocytes/100 WBC (Bld) 14.1 % Normal . [facility] Comment on above: Order Comment: PLEAS E FAX TO Performed By: #### C MP, CBC #### [facility] [address] [place] [address] [place] Neutrophils (Bld) [#/Vol] 2.3 10*3/uL Normal 1.8-7.7 [facility] Comment on above: Order Comment: PLEAS E FAX TO Performed By: #### C MP, CBC #### [address] Neutrophils/100 WBC (Bld) 46.4 % Normal . [facility] Comment on above: Order Comment: PLEAS E FAX TO Performed By: #### C MP, CBC #### [place] [address] [place] Nucleated RBC/100 WBC (Bld) [Ratio] 0.2 % Normal 0-0.5 [facility] Comment on above: Order Comment: PLEAS E FAX TO Performed By: #### C MP, CBC #### [address] Platelet mean volume (Bld) [Entitic vol] 10.0 fL Normal 6.6-10.1 [facility] Comment on above: Order Comment: PLEAS E FAX TO Performed By: #### C MP, CBC #### [facility] [address] [place] [address] [place] Platelets (Bld) [#/Vol] 137 10*3/uL Low 150-450 [facility] Comment on above: Order Comment: PLEAS E FAX TO Performed By: #### C MP, CBC #### [place] [address] [place] RBC (Bld) [#/Vol] 3.95 10*6/uL Normal 3.90-5.60 [facility] Comment on above: Order Comment: PLEAS E FAX TO Performed By: #### C MP, CBC #### [facility] [address] [place] [address] WBC (Bld) [#/Vol] 5.0 10*3/uL Normal 4.5-11.0 [facility] Comment on above: Order Comment: PLEAS E FAX TO Performed By: #### C MP, CBC #### [facility] [address] [place], [place] [id number] Comprehensive Metabolic Pane navin 04-18-2021 Albumin [Mass/Vol] 2.9 g/dL Low 3.2-5.5 [facility] Comment on above: Order Comment: PLEAS E FAX TO Performed By: #### C MP, CBC #### [facility] [address] [place] [address] Albumin/Globulin [Mass ratio] 1.2 {ratio} Normal [facility] Comment on above: Order Comment: PLEAS E FAX TO Performed By: #### C MP, CBC #### [place] [id number] [facility] ALP [Catalytic activity/Vol] 50 U/L Normal 32-92 [facility] Comment on above: Order Comment: PLEAS E FAX TO Result Comment: PERF ORMED BY: [place] [address] PATHOLOGIST LINING MARKER DAKOTAH SMITH M.D. Performed By: #### C MP, CBC #### [facility] [address] [place], [place] [id number] [facility] ALT [Catalytic activity/Vol] 12 U/L Normal 10-60 [facility] Comment on above: Order Comment: PLEAS E FAX TO Performed By: #### C MP, CBC #### [facility] [address] [place] [id number] [facility] AST [Catalytic activity/Vol] 14 U/L Normal 10-42 [facility] Comment on above: Order Comment: PLEAS E FAX TO Performed By: #### C MP, CBC #### [facility] [address] Bilirubin [Mass/Vol] 0.3 mg/dL Normal 0.3-1.2 [facility] Comment on above: Order Comment: PLEAS E FAX TO Performed By: #### C MP, CBC #### [facility] [address] Calcium [Mass/Vol] 8.8 mg/dL Normal 8.2-10.2 [facility] Comment on above: Order Comment: PLEAS E FAX TO Performed By: #### C MP, CBC #### [facility] [address] Chloride [Moles/Vol] 105 mmol/L Normal 95-114 [facility] Comment on above: Order Comment: PLEAS E FAX TO Performed By: #### C MP, CBC #### [facility] [address] [place] [address] CO2 [Moles/Vol] 24.5 mmol/L Normal 22.0-30.0 [facility] Comment on above: Order Comment: PLEAS E FAX TO Performed By: #### C MP, CBC #### [facility] [address] [place] [id number] [place] Creatinine [Mass/Vol] 1.13 mg/dL Normal 0.64-1.27 [facility] Comment on above: Order Comment: PLEAS E FAX TO Performed By: #### C MP, CBC #### [facility] [address] [place] [address] [place] Estimated GFR ( Mary Jo > 60 [facility] Comment on above: Order Comment: PLEAS E FAX TO Result Comment: GFR estimated reference range: According to KDOQI guidelines, <60 ml/min/1.73m2 is sufficient to diagnose a patient with chronic kidney disease. Performed By: #### C MP, CBC #### [address] Estimated GFR (Non- Am > 60 [facility] Comment on above: Order Comment: PLEAS E FAX TO Performed By: #### C MP, CBC #### [facility] [address] Globulin (S) [Mass/Vol] 2.5 g/dL [facility] Comment on above: Order Comment: PLEAS E FAX TO Performed By: #### C MP, CBC #### [address] Glucose [Mass/Vol] 108 mg/dL High 70-100 [facility] Comment on above: Order Comment: PLEAS E FAX TO Result Comment: [place] om Glucose Reference Range is dependent on time and content of last meal. Glucose of more than 200 mg/dL in a nonstressed, ambulatory subject supports the diagnosis of Diabetes Mellitus. ADA recommended reference range Performed By: #### C MP, CBC #### [place] [address] [place] Potassium [Moles/Vol] 3.8 mmol/L Normal 3.5-5.1 [facility] Comment on above: Order Comment: PLEAS E FAX TO Performed By: #### C MP, CBC #### [address] Protein [Mass/Vol] 5.4 g/dL Low 6.1-7.9 [facility] Comment on above: Order Comment: PLEAS E FAX TO Performed By: #### C MP, CBC #### [facility] [address] [place] [id number] [facility] Sodium [Moles/Vol] 138 mmol/L Normal 136-146 [facility] Comment on above: Order Comment: PLEAS E FAX TO Performed By: #### C MP, CBC #### [facility] [address] Urea nitrogen [Mass/Vol] 16 mg/dL Normal 9-23 [facility] Comment on above: Order Comment: PLEAS E FAX TO Performed By: #### C MP, CBC #### [facility] [address] Progress Noteson 04-02-2021 [employer]maker Garment Fitter Authentication Interface Message Text Normal [facility] Progress Noteson 04-01-2021 Dressmaker Garment Fitter Authentication Interface Message Text Patient was identified by name and date of . Lennice Hampton Short leg cast applied. Pins care and extra gauze applied. Care and instructions provided. Normal [facility] Dressmaker Garment Fitter Authentication Interface Message Text Patient at risk for falls:Yes Falls Risk protocol implemented: Yes wheelchair in locked position when not in use for transport Normal [facility] Patient Instructionson 03-18 Dressmaker Garment Fitter Authentication Interface Message Text Normal [facility] Progress Noteson 03-18-2021 Dressmaker Garment Fitter Authentication Interface Message Text Normal [facility] Dressmaker Garment Fitter Authentication Interface Message Text Patient was identified by name and date of . Rehab Zoqash .Patient at risk for falls:No Falls Risk protocol implemented: No Normal [facility] Progress Noteson 03-12-2021 Dressmaker Garment Fitter Authentication Interface Message Text Normal [facility] Progress Noteson 03-11-2021 Dressmaker Garment Fitter Authentication Interface Message Text Patient was identified by name and date of . Lennice Hampton Suture removal. Short leg cast applied to LLE over fixator pins. Care and instructions provided. Normal [facility] Telephone Encounteron 2020 Dressmaker Garment Fitter Authentication Interface Message Text Normal [facility] BASIC METABOLIC PANELon 07-0 Anion gap [Moles/Vol] 13 mmol/L Normal 01-10 [facility] Comment on above: Performed By: #### C H8 ####S PATHOLOGY [id number] [place], Calcium [Mass/Vol] 8.9 mg/dL Normal 8.4-10.4 [facility] Comment on above: Performed By: #### C H8 ####S PATHOLOGY [id number] [place], Chloride [Moles/Vol] 104 mmol/L Normal 97-111 [facility] Comment on above: Performed By: #### C H8 ####S PATHOLOGY [id number] [place], CO2 [Moles/Vol] 25 mmol/L Normal 21-30 [facility] Comment on above: Performed By: #### C H8 ####[facility] PATHOLOGY [id number] [place], Creatinine [Mass/Vol] 0.99 mg/dL Normal 0.80-1.30 [facility] Comment on above: Performed By: #### C H8 ####[facility] PATHOLOGY [id number] [place], ESTIMATED GFR (CKD-EPI) 75 mL/min/1.73sqm Normal >=60 [facility] Comment on above: Performed By: #### C H8 ####S PATHOLOGY [id number] [place], Glucose [Mass/Vol] 101 mg/dL Normal 80-116 [facility] Comment on above: Performed By: #### C H8 ####S PATHOLOGY [id number] [place], Potassium [Moles/Vol] 4.1 mmol/L Normal 3.3-5.3 [facility] Comment on above: Performed By: #### C H8 ####S PATHOLOGY [id number] [place], Sodium [Moles/Vol] 138 mmol/L Normal 135-148 [facility] Comment on above: Performed By: #### C H8 ####S PATHOLOGY [id number] [place], Urea nitrogen [Mass/Vol] 19 mg/dL Normal 8-22 [facility] Comment on above: Performed By: #### Austyn H8 ####[facility] [id number] [place], Care Plan Noteon 02-28-2021 Dressmaker Garment Fitter Authentication Interface Message Text Normal [facility] DIGOXINon 02-28-2021 DIG 0.78 ng/mL Low 0.80-2.00 [facility] Comment on above: Performed By: #### D IG ####S PATHOLOGY [id number] [place], Discharge Planning Noteon [employer]maker Gar[employer] Fitter Authentication Interface Message Text Normal [facility] Progress Noteson 02-28-2021 Dressmaker Garment Fitter Authentication Interface Message Text Report called to next facility to [facility]. Phone number provided to outside facility for any further questions. Reporting off to next shift. Normal [facility] Dressmaker Garment Fitter Authentication Interface Message Text Normal [facility] BASIC METABOLIC PANELon 06-3 Anion gap [Moles/Vol] 13 mmol/L Normal 5-13 [facility] Comment on above: Performed By: #### Austyn H8, MG ####S PATHOLOGY [id number] [place], Calcium [Mass/Vol] 8.8 mg/dL Normal 8.4-10.4 [facility] Comment on above: Performed By: #### Austyn H8, MG ####[facility] [id number] [place], Chloride [Moles/Vol] 104 mmol/L Normal 97-111 [facility] Comment on above: Performed By: #### Austyn H8, MG ####[facility] [id number] [place], CO2 [Moles/Vol] 25 mmol/L Normal 21-30 [facility] Comment on above: Performed By: #### Austyn H8, MG ####[facility] [id number] [place], Creatinine [Mass/Vol] 1.00 mg/dL Normal 0.80-1.30 [facility] Comment on above: Performed By: #### Austyn Tamez, MG ####S PATHOLOGY [id number] [place], ESTIMATED GFR (CKD-EPI) 74 mL/min/1.73sqm Normal >=60 [facility] Comment on above: Performed By: #### Austyn Tamez, MG ####S PATHOLOGY [id number] [place], Glucose [Mass/Vol] 108 mg/dL Normal 80-116 [facility] Comment on above: Performed By: #### Austyn Tamez, MG ####S PATHOLOGY SXNLEBADLE[address] [place] [address], Potassium [Moles/Vol] 4.3 mmol/L Normal 3.3-5.3 [facility] Comment on above: Performed By: #### Austyn Tamez, MG ####[facility] [id number] [place] [address], Sodium [Moles/Vol] 138 mmol/L Normal 135-148 [facility] Comment on above: Performed By: #### Austyn Tamez, MG ####S PATHOLOGY [id number] [place] [address], Urea nitrogen [Mass/Vol] 20 mg/dL Normal 8-22 [facility] Comment on above: Performed By: #### Austyn Tamez, MG ####S PATHOLOGY [id number] [place], COMPLETE BLOOD COUNTon 02-27 Erythrocyte distribution width (RBC) [Ratio] 15.1 % High 11.5-14.5 [facility] Comment on above: Performed By: #### Austyn BC ####[facility] [id number] [place] [address], Hematocrit (Bld) [Volume fraction] 30.9 % Low 41.0-53.0 [facility] Comment on above: Performed By: #### Austyn FAJARDO ####[facility] [id number] [place] [address], Hemoglobin (Bld) [Mass/Vol] 10.3 g/dL Low 13.9-16.3 [facility] Comment on above: Performed By: #### C BC ####[facility] PATHOLOGY [id number] [place], MCH (RBC) [Entitic mass] 31.8 pg Normal 26.0-34.0 [facility] Comment on above: Performed By: #### C BC ####[facility] PATHOLOGY [id number] [place] [address], MCHC (RBC) [Mass/Vol] 33.3 g/dL Normal 32.0-35.9 [facility] Comment on above: Performed By: #### C BC ####[facility] PATHOLOGY [id number] [place] [address], MCV (RBC) [Entitic vol] 95 fL Normal 80-100 [facility] Comment on above: Performed By: #### C BC ####[facility] PATHOLOGY [id number] [place] [address], Platelet mean volume (Bld) [Entitic vol] 10.2 fL Normal 7.5-11.2 [facility] Comment on above: Performed By: #### C BC ####[facility] PATHOLOGY [id number] [place] [address], Platelets (Bld) [#/Vol] 209 10*3/uL Normal 150-400 [facility] Comment on above: Performed By: #### C BC ####[facility] PATHOLOGY [id number] [place] [address], RBC (Bld) [#/Vol] 3.24 10*6/uL Low 4.50-5.90 [facility] Comment on above: Performed By: #### C BC ####[facility] PATHOLOGY [id number] [place] [address], WBC (Bld) [#/Vol] 5.2 10*3/uL Normal 4.5-11.5 [facility] Comment on above: Performed By: #### C BC ####[facility] PATHOLOGY [id number] [place] [address] [place], Care Plan Noteon 02-27-2021 Dressmaker Garment Fitter Authentication Interface Message Text Normal [facility] Consultson 02-27-2021 Dressmaker Garment Fitter Authentication Interface Message Text Normal [facility] Dressmaker Garment Fitter Authentication Interface Message Text Normal [facility] MAGNESIUMon 02-27-2021 Magnesium [Mass/Vol] 2.3 mg/dL Normal 1.6-2.8 [facility] Comment on above: Performed By: #### C H8, MG ####S PATHOLOGY [id number] [place] [address], Progress Noteson 02-27-2021 Dressmaker Garment Fitter Authentication Interface Message Text Normal [facility] Dressmaker Garment Fitter Authentication Interface Message Text Normal [facility] Dressmaker Garment Fitter Authentication Interface Message Text Normal [facility] BASIC METABOLIC PANELon 01-30 Anion gap [Moles/Vol] 14 mmol/L High 5-13 [facility] Comment on above: Performed By: #### Rajiv Roque, CH8 ####S PATHOLOGY [id number] [place] [address], Calcium [Mass/Vol] 9.0 mg/dL Normal 8.4-10.4 [facility] Comment on above: Performed By: #### Rajiv Roque, CH8 ####S PATHOLOGY [id number] [place], Chloride [Moles/Vol] 103 mmol/L Normal 97-111 [facility] Comment on above: Performed By: #### Rajiv Roque, CH8 ####S PATHOLOGY [id number] [place], CO2 [Moles/Vol] 24 mmol/L Normal 21-30 [facility] Comment on above: Performed By: #### Rajiv Roque, CH8 ####S PATHOLOGY [id number] [place], Creatinine [Mass/Vol] 1.00 mg/dL Normal 0.80-1.30 [facility] Comment on above: Performed By: #### Rajiv Roque, CH8 ####S PATHOLOGY [id number] [place], ESTIMATED GFR (CKD-EPI) 74 mL/min/1.73sqm Normal >=60 [facility] Comment on above: Performed By: #### Rajiv Roque, ALESHA8 ####S PATHOLOGY [id number] [place], Glucose [Mass/Vol] 103 mg/dL Normal 80-116 [facility] Comment on above: Performed By: #### Rajiv Roque, ALESHA8 ####S PATHOLOGY [id number] [place], Potassium [Moles/Vol] 4.3 mmol/L Normal 3.3-5.3 [facility] Comment on above: Performed By: #### Rajiv Roque, ALESHA8 ####S PATHOLOGY [id number] [place], Sodium [Moles/Vol] 137 mmol/L Normal 135-148 [facility] Comment on above: Performed By: #### Rajiv Roque, ALESHA8 ####[facility] PATHOLOGY [id number] [place] [address], Urea nitrogen [Mass/Vol] 17 mg/dL Normal 8-22 [facility] Comment on above: Performed By: #### Rajiv Roque, ALESHA8 ####[facility] PATHOLOGY [id number] [place], COMPLETE BLOOD COUNTon 02-26 Erythrocyte distribution width (RBC) [Ratio] 14.6 % High 11.5-14.5 [facility] Comment on above: Performed By: #### Austyn BC ####S PATHOLOGY [id number] [place], Hematocrit (Bld) [Volume fraction] 30.7 % Low 41.0-53.0 [facility] Comment on above: Performed By: #### C BC ####S PATHOLOGY [id number] [place] [address], Hemoglobin (Bld) [Mass/Vol] 10.5 g/dL Low 13.9-16.3 [facility] Comment on above: Performed By: #### Austyn BC ####S PATHOLOGY [id number] [place], MCH (RBC) [Entitic mass] 31.7 pg Normal 26.0-34.0 [facility] Comment on above: Performed By: #### C BC ####S PATHOLOGY [id number] [place], MCHC (RBC) [Mass/Vol] 34.1 g/dL Normal 32.0-35.9 [facility] Comment on above: Performed By: #### C BC ####[facility] PATHOLOGY [id number] [place], MCV (RBC) [Entitic vol] 93 fL Normal 80-100 [facility] Comment on above: Performed By: #### C BC ####[facility] PATHOLOGY [id number] [place], Platelet mean volume (Bld) [Entitic vol] 10.3 fL Normal 7.5-11.2 [facility] Comment on above: Performed By: #### C BC ####[facility] PATHOLOGY [id number] [place], Platelets (Bld) [#/Vol] 205 10*3/uL Normal 150-400 [facility] Comment on above: Performed By: #### C BC ####[facility] PATHOLOGY [id number] [place], RBC (Bld) [#/Vol] 3.30 10*6/uL Low 4.50-5.90 [facility] Comment on above: Performed By: #### C BC ####[facility] PATHOLOGY [id number] [place], WBC (Bld) [#/Vol] 5.3 10*3/uL Normal 4.5-11.5 [facility] Comment on above: Performed By: #### C BC ####S PATHOLOGY [id number] [place], Care Plan Noteon 02-26-2021 [employer]maker Garment [employer]itter Authentication Interface Message Text Normal [facility] Consultson 02-26-2021 Dressmaker Garment Fitter Authentication Interface Message Text Normal [facility] [employer]maker Garment Fitter Authentication Interface Message Text Normal [facility] MAGNESIUMon 02-26-2021 Magnesium [Mass/Vol] 2.2 mg/dL Normal 1.6-2.8 [facility] Comment on above: Performed By: #### Rajiv Roque, ALESHA8 ####[facility] PATHOLOGY [id number] [place], Progress Noteson 02-26-2021 Dressmaker Garment Fitter Authentication Interface Message Text Normal [facility] Dressmaker Garment Fitter Authentication Interface Message Text Normal [facility] Dressmaker Garment Fitter Authentication Interface Message Text Normal [facility] Dressmaker Garment Fitter Authentication Interface Message Text Normal [facility] BASIC METABOLIC PANELon 01-30 Anion gap [Moles/Vol] 15 mmol/L High 5-13 [facility] Comment on above: Performed By: #### Rajiv Roque, ALESHA8 ####[facility] PATHOLOGY [id number] [place] [address], Calcium [Mass/Vol] 9.7 mg/dL Normal 8.4-10.4 [facility] Comment on above: Performed By: #### Rajiv Roque, ALESHA8 ####[facility] PATHOLOGY [id number] [place] [address], Chloride [Moles/Vol] 112 mmol/L High 97-111 [facility] Comment on above: Performed By: #### Rajiv Roque, ALESHA8 ####[facility] PATHOLOGY [id number] [place] [address], CO2 [Moles/Vol] 27 mmol/L Normal 21-30 [facility] Comment on above: Performed By: #### Rajiv Roque, CH8 ####[facility] PATHOLOGY [id number] [place], Creatinine [Mass/Vol] 0.96 mg/dL Normal 0.80-1.30 [facility] Comment on above: Performed By: ###Sabrina Roque, ALESHA8 ####[facility] PATHOLOGY [id number] [place], ESTIMATED GFR (CKD-EPI) 78 mL/min/1.73sqm Normal >=60 [facility] Comment on above: Performed By: ###Sabrina Roque, ALESHA8 ####[facility] PATHOLOGY [id number] [place], Glucose [Mass/Vol] 113 mg/dL Normal 80-116 [facility] Comment on above: Performed By: #### Rajiv Roque, ALESHA8 ####[facility] PATHOLOGY [id number] [place], Potassium [Moles/Vol] 4.9 mmol/L Normal 3.3-5.3 [facility] Comment on above: Performed By: #### Rajiv Roque, ALESHA8 ####[facility] PATHOLOGY [id number] [place] [address], Sodium [Moles/Vol] 149 mmol/L High 135-148 [facility] Comment on above: Performed By: #### Rajiv Roque, ALESHA8 ####[facility] PATHOLOGY [id number] [place] [address], Urea nitrogen [Mass/Vol] 16 mg/dL Normal 8-22 [facility] Comment on above: Performed By: #### Rajiv Roque, ALESHA8 ####[facility] PATHOLOGY [id number] [place] [address], COMPLETE BLOOD COUNTon 02-25 Erythrocyte distribution width (RBC) [Ratio] 14.5 % Normal 11.5-14.5 [facility] Comment on above: Performed By: #### C BC ####[facility] PATHOLOGY [id number] [place] [address], Hematocrit (Bld) [Volume fraction] 29.6 % Low 41.0-53.0 [facility] Comment on above: Performed By: #### C BC ####[facility] PATHOLOGY [id number] [place] [address], Hemoglobin (Bld) [Mass/Vol] 9.9 g/dL Low 13.9-16.3 [facility] Comment on above: Performed By: #### C BC ####[facility] PATHOLOGY [id number] [place] [address], MCH (RBC) [Entitic mass] 31.2 pg Normal 26.0-34.0 [facility] Comment on above: Performed By: #### C BC ####[facility] [id number] [place], MCHC (RBC) [Mass/Vol] 33.6 g/dL Normal 32.0-35.9 [facility] Comment on above: Performed By: #### C BC ####S PATHOLOGY [id number] [place], MCV (RBC) [Entitic vol] 93 fL Normal 80-100 [facility] Comment on above: Performed By: #### C BC ####[facility] PATHOLOGY [id number] [place], Platelet mean volume (Bld) [Entitic vol] 9.8 fL Normal 7.5-11.2 [facility] Comment on above: Performed By: #### C BC ####[facility] PATHOLOGY [id number] [place], Platelets (Bld) [#/Vol] 207 10*3/uL Normal 150-400 [facility] Comment on above: Performed By: #### C BC ####[facility] PATHOLOGY [id number] [place], RBC (Bld) [#/Vol] 3.19 10*6/uL Low 4.50-5.90 [facility] Comment on above: Performed By: #### C BC ####[facility] PATHOLOGY [id number] [place], WBC (Bld) [#/Vol] 5.6 10*3/uL Normal 4.5-11.5 [facility] Comment on above: Performed By: #### C BC ####[facility] PATHOLOGY [id number] [place], Care Plan Noteon 02-25-2021 [employer]maker Garment [employer]itter Authentication Interface Message Text Normal [facility] Consultson 02-25-2021 Dressmaker Garment Fitter Authentication Interface Message Text Normal [facility] [employer]maker Garment Fitter Authentication Interface Message Text Normal [facility] MAGNESIUMon 02-25-2021 Magnesium [Mass/Vol] 2.1 mg/dL Normal 1.6-2.8 [facility] Comment on above: Performed By: #### Rajiv Roque CH8 ####[facility] [id number] [place], Nursing Noteon 02-25-2021 [employer]maker Gar[employer]itter Authentication Interface Message Text Normal [facility] Progress Noteson 02-25-2021 Dressmaker Garment Fitter Authentication Interface Message Text Normal [facility] [employer]maker Gar[employer]itter Authentication Interface Message Text Normal [facility] BASIC METABOLIC PANELon 06- Anion gap [Moles/Vol] 14 mmol/L High 5-13 [facility] Comment on above: Performed By: #### Austyn Saleh8, MG ####[facility] [id number] [place], [place], Calcium [Mass/Vol] 9.0 mg/dL Normal 8.4-10.4 [facility] Comment on above: Performed By: #### Austyn Tamez, MG ####[facility] [id number] [place], Chloride [Moles/Vol] 102 mmol/L Normal 97-111 [facility] Comment on above: Performed By: #### Austyn H8, MG ####[facility] [id number] [place], CO2 [Moles/Vol] 23 mmol/L Normal 21-30 [facility] Comment on above: Performed By: #### Austyn H8, MG ####[facility] [id number] [place], Creatinine [Mass/Vol] 0.94 mg/dL Normal 0.80-1.30 [facility] Comment on above: Performed By: #### Austyn H8, MG ####[facility] [id number] [place], ESTIMATED GFR (CKD-EPI) 80 mL/min/1.73sqm Normal >=60 [facility] Comment on above: Performed By: #### Austyn H8, MG ####[facility] [id number] [place], Glucose [Mass/Vol] 108 mg/dL Normal 80-116 [facility] Comment on above: Performed By: #### Austyn H8, MG ####[facility] [id number] [place], Potassium [Moles/Vol] 4.3 mmol/L Normal 3.3-5.3 [facility] Comment on above: Performed By: #### C H8, MG ####[facility] PATHOLOGY [id number] [place], Sodium [Moles/Vol] 135 mmol/L Normal 135-148 [facility] Comment on above: Performed By: #### C H8, MG ####[facility] PATHOLOGY [id number] [place], Urea nitrogen [Mass/Vol] 15 mg/dL Normal 8-22 [facility] Comment on above: Performed By: #### C H8, MG ####[facility] PATHOLOGY [id number] [place], COMPLETE BLOOD COUNTon 02-24 Erythrocyte distribution width (RBC) [Ratio] 14.9 % High 11.5-14.5 [facility] Comment on above: Performed By: #### C BC ####[facility] PATHOLOGY [id number] [place], Hematocrit (Bld) [Volume fraction] 28.2 % Low 41.0-53.0 [facility] Comment on above: Performed By: #### C BC ####[facility] PATHOLOGY [id number] [place], Hemoglobin (Bld) [Mass/Vol] 9.8 g/dL Low 13.9-16.3 [facility] Comment on above: Performed By: #### C BC ####[facility] PATHOLOGY [id number] [place], MCH (RBC) [Entitic mass] 33.0 pg Normal 26.0-34.0 [facility] Comment on above: Performed By: #### C BC ####[facility] PATHOLOGY [id number] [place] [address], MCHC (RBC) [Mass/Vol] 34.7 g/dL Normal 32.0-35.9 [facility] Comment on above: Performed By: #### C BC ####[facility] PATHOLOGY [id number] [place], MCV (RBC) [Entitic vol] 95 fL Normal 80-100 [facility] Comment on above: Performed By: #### C BC ####[facility] PATHOLOGY [id number] [place], Platelet mean volume (Bld) [Entitic vol] 10.1 fL Normal 7.5-11.2 [facility] Comment on above: Performed By: #### C BC ####[facility] PATHOLOGY [id number] [place], Platelets (Bld) [#/Vol] 206 10*3/uL Normal 150-400 [facility] Comment on above: Performed By: #### C BC ####[facility] PATHOLOGY [id number] [place], RBC (Bld) [#/Vol] 2.96 10*6/uL Low 4.50-5.90 [facility] Comment on above: Performed By: #### C BC ####[facility] PATHOLOGY [id number] [place], WBC (Bld) [#/Vol] 5.8 10*3/uL Normal 4.5-11.5 [facility] Comment on above: Performed By: #### C BC ####[facility] PATHOLOGY [id number] [place], Care Plan Noteon 02-24-2021 [employer] Authentication Interface Message Text Normal [facility] MAGNESIUMon 02-24-2021 Magnesium [Mass/Vol] 1.9 mg/dL Normal 1.6-2.8 [facility] Comment on above: Performed By: #### C H8, MG ####[facility] PATHOLOGY [id number] [place], [place] Noteson 02-24-2021 [employer] Authentication Interface Message Text Normal [facility] BASIC METABOLIC PANELon 01-30 Anion gap [Moles/Vol] 15 mmol/L High 5-13 [facility] Comment on above: Performed By: #### M G, CH8 ####S PATHOLOGY [id number] [place], Calcium [Mass/Vol] 8.9 mg/dL Normal 8.4-10.4 [facility] Comment on above: Performed By: #### Rajiv Roque, CH8 ####S PATHOLOGY [id number] [place], Chloride [Moles/Vol] 105 mmol/L Normal 97-111 [facility] Comment on above: Performed By: #### Rajiv Roque, CH8 ####S PATHOLOGY [id number] [place], CO2 [Moles/Vol] 22 mmol/L Normal 21-30 [facility] Comment on above: Performed By: #### Rajiv Roque, CH8 ####S PATHOLOGY [id number] [place], Creatinine [Mass/Vol] 0.87 mg/dL Normal 0.80-1.30 [facility] Comment on above: Performed By: #### Rajiv Roque, CH8 ####S PATHOLOGY [id number] [place], ESTIMATED GFR (CKD-EPI) 85 mL/min/1.73sqm Normal >=60 [facility] Comment on above: Performed By: #### Rajiv Roque, CH8 ####S PATHOLOGY [id number] [place], Glucose [Mass/Vol] 103 mg/dL Normal 80-116 [facility] Comment on above: Performed By: #### Rajiv Roque, CH8 ####S PATHOLOGY [id number] [place], Potassium [Moles/Vol] 4.6 mmol/L Normal 3.3-5.3 [facility] Comment on above: Performed By: #### Rajiv Roque, CH8 ####S PATHOLOGY [id number] [place], Sodium [Moles/Vol] 137 mmol/L Normal 135-148 [facility] Comment on above: Performed By: #### M G, CH8 ####[facility] [id number] [place], Urea nitrogen [Mass/Vol] 20 mg/dL Normal 8-22 [facility] Comment on above: Performed By: #### Rajiv Roque CH8 ####[facility] PATHOLOGY [id number] [place], COMPLETE BLOOD COUNTon 02-23 Erythrocyte distribution width (RBC) [Ratio] 15.1 % High 11.5-14.5 [facility] Comment on above: Performed By: #### C BC ####[facility] PATHOLOGY [id number] [place], Hematocrit (Bld) [Volume fraction] 29.0 % Low 41.0-53.0 [facility] Comment on above: Performed By: #### C BC ####[facility] PATHOLOGY [id number] [place], Hemoglobin (Bld) [Mass/Vol] 9.6 g/dL Low 13.9-16.3 [facility] Comment on above: Performed By: #### C BC ####[facility] PATHOLOGY [id number] [place], MCH (RBC) [Entitic mass] 31.6 pg Normal 26.0-34.0 [facility] Comment on above: Performed By: #### C BC ####[facility] PATHOLOGY [id number] [place], MCHC (RBC) [Mass/Vol] 33.1 g/dL Normal 32.0-35.9 [facility] Comment on above: Performed By: #### C BC ####[facility] PATHOLOGY [id number] [place], MCV (RBC) [Entitic vol] 95 fL Normal 80-100 [facility] Comment on above: Performed By: #### C BC ####[facility] PATHOLOGY [id number] [place], Platelet mean volume (Bld) [Entitic vol] 10.4 fL Normal 7.5-11.2 [facility] Comment on above: Performed By: #### C BC ####S PATHOLOGY [id number] [place], Platelets (Bld) [#/Vol] 212 10*3/uL Normal 150-400 [facility] Comment on above: Performed By: #### C BC ####S PATHOLOGY [id number] [place], RBC (Bld) [#/Vol] 3.04 10*6/uL Low 4.50-5.90 [facility] Comment on above: Performed By: #### C BC ####[facility] PATHOLOGY [id number] [place], WBC (Bld) [#/Vol] 6.8 10*3/uL Normal 4.5-11.5 [facility] Comment on above: Performed By: #### Austyn BC ####[facility] PATHOLOGY [id number] [place] [address], Care Plan Noteon 02-23-2021 [employer] Authentication Interface Message Text Normal [facility] MAGNESIUMon 02-23-2021 Magnesium [Mass/Vol] 2.0 mg/dL Normal 1.6-2.8 [facility] Comment on above: Performed By: #### Rajiv Roque 8 ####[facility] PATHOLOGY [id number] [place] [address], Progress Noteson 02-23-2021 [employer] Authentication Interface Message Text Normal [facility] BASIC METABOLIC PANELon 01-30 Anion gap [Moles/Vol] 13 mmol/L Normal 5-13 [facility] Comment on above: Performed By: #### Austyn H8, MG ####[facility] PATHOLOGY [id number] [place], Calcium [Mass/Vol] 8.7 mg/dL Normal 8.4-10.4 [facility] Comment on above: Performed By: #### Austyn H8, MG ####S PATHOLOGY [id number] [place], Chloride [Moles/Vol] 106 mmol/L Normal 97-111 [facility] Comment on above: Performed By: #### C H8, MG ####[facility] [id number] [place], CO2 [Moles/Vol] 22 mmol/L Normal 21-30 [facility] Comment on above: Performed By: #### C H8, MG ####[facility] [id number] [place], Creatinine [Mass/Vol] 0.90 mg/dL Normal 0.80-1.30 [facility] Comment on above: Performed By: #### C H8, MG ####[facility] [id number] [place], ESTIMATED GFR (CKD-EPI) 84 mL/min/1.73sqm Normal >=60 [facility] Comment on above: Performed By: #### Austyn H8, MG ####S PATHOLOGY [id number] [place], Glucose [Mass/Vol] 97 mg/dL Normal 80-116 [facility] Comment on above: Performed By: #### Austyn H8, MG ####S PATHOLOGY [id number] [place], Potassium [Moles/Vol] 4.2 mmol/L Normal 3.3-5.3 [facility] Comment on above: Performed By: #### Austyn H8, MG ####S PATHOLOGY [id number] [place], Sodium [Moles/Vol] 137 mmol/L Normal 135-148 [facility] Comment on above: Performed By: #### C H8, MG ####[facility] [id number] [place], Urea nitrogen [Mass/Vol] 17 mg/dL Normal 8-22 [facility] Comment on above: Performed By: #### C H8, MG ####[facility] [id number] [place], COMPLETE BLOOD COUNTon 02-22 Erythrocyte distribution width (RBC) [Ratio] 15.0 % High 11.5-14.5 [facility] Comment on above: Performed By: #### C BC ####[facility] PATHOLOGY [id number] [place], Hematocrit (Bld) [Volume fraction] 27.4 % Low 41.0-53.0 [facility] Comment on above: Performed By: #### C BC ####[facility] PATHOLOGY [id number] [place], Hemoglobin (Bld) [Mass/Vol] 9.2 g/dL Low 13.9-16.3 [facility] Comment on above: Performed By: #### C BC ####[facility] PATHOLOGY [id number] [place], MCH (RBC) [Entitic mass] 31.4 pg Normal 26.0-34.0 [facility] Comment on above: Performed By: #### C BC ####[facility] PATHOLOGY [id number] [place], MCHC (RBC) [Mass/Vol] 33.6 g/dL Normal 32.0-35.9 [facility] Comment on above: Performed By: #### C BC ####[facility] PATHOLOGY [id number] [place], MCV (RBC) [Entitic vol] 93 fL Normal 80-100 [facility] Comment on above: Performed By: #### C BC ####[facility] PATHOLOGY [id number] [place], Platelet mean volume (Bld) [Entitic vol] 9.9 fL Normal 7.5-11.2 [facility] Comment on above: Performed By: #### C BC ####[facility] PATHOLOGY [id number] [place], Platelets (Bld) [#/Vol] 204 10*3/uL Normal 150-400 [facility] Comment on above: Performed By: #### C BC ####[facility] PATHOLOGY [id number] [place], RBC (Bld) [#/Vol] 2.94 10*6/uL Low 4.50-5.90 [facility] Comment on above: Performed By: #### C BC ####[facility] [id number] [place], WBC (Bld) [#/Vol] 6.7 10*3/uL Normal 4.5-11.5 [facility] Comment on above: Performed By: #### C BC ####[facility] [id number] [place], Care Plan Noteon 02-22-2021 [employer] Authentication Interface Message Text Normal [facility] Consultson 02-22-2021 [employer] Authentication Interface Message Text Normal [facility] MAGNESIUMon 02-22-2021 Magnesium [Mass/Vol] 2.0 mg/dL Normal 1.6-2.8 [facility] Comment on above: Performed By: #### Austyn H8, MG ####S PATHOLOGY [id number] [place], Progress Noteson 02-22-2021 [employer] Authentication Interface Message Text Normal [facility] [employer] Authentication Interface Message Text Normal [facility] [employer] Authentication Interface Message Text Normal [facility] BASIC METABOLIC PANELon 01-30 Anion gap [Moles/Vol] 13 mmol/L Normal 5-13 [facility] Comment on above: Performed By: #### Austyn H8, MG ####[facility] [id number] [place], Calcium [Mass/Vol] 8.4 mg/dL Normal 8.4-10.4 [facility] Comment on above: Performed By: #### Austyn H8, MG ####[facility] [id number] [place], Chloride [Moles/Vol] 107 mmol/L Normal 97-111 [facility] Comment on above: Performed By: #### Austyn H8, MG ####[facility] [id number] [place], CO2 [Moles/Vol] 22 mmol/L Normal 21-30 [facility] Comment on above: Performed By: #### Austyn H8, MG ####[facility] [id number] [place], Creatinine [Mass/Vol] 0.85 mg/dL Normal 0.80-1.30 [facility] Comment on above: Performed By: #### Austyn Tamez, MG ####S PATHOLOGY [id number] [place], ESTIMATED GFR (CKD-EPI) 86 mL/min/1.73sqm Normal >=60 [facility] Comment on above: Performed By: #### Austyn Tamez, MG ####S PATHOLOGY [id number] [place], Glucose [Mass/Vol] 107 mg/dL Normal 80-116 [facility] Comment on above: Performed By: #### Austyn Tamez, MG ####S PATHOLOGY [id number] [place], Potassium [Moles/Vol] 4.0 mmol/L Normal 3.3-5.3 [facility] Comment on above: Performed By: #### Austyn Tamez, MG ####S PATHOLOGY [id number] [place], Sodium [Moles/Vol] 138 mmol/L Normal 135-148 [facility] Comment on above: Performed By: #### Austyn Tamez, MG ####S PATHOLOGY [id number] [place], Urea nitrogen [Mass/Vol] 16 mg/dL Normal 8-22 [facility] Comment on above: Performed By: #### Austyn Tamez, MG ####S PATHOLOGY [id number] [place], COMPLETE BLOOD COUNTon 02-21 Erythrocyte distribution width (RBC) [Ratio] 15.2 % High 11.5-14.5 [facility] Comment on above: Performed By: #### Austyn BC ####[facility] [id number] [place], Hematocrit (Bld) [Volume fraction] 26.7 % Low 41.0-53.0 [facility] Comment on above: Performed By: #### Austyn BC ####[facility] [id number] [place], Hemoglobin (Bld) [Mass/Vol] 9.2 g/dL Low 13.9-16.3 [facility] Comment on above: Performed By: #### C BC ####[facility] PATHOLOGY [id number] [place], MCH (RBC) [Entitic mass] 32.3 pg Normal 26.0-34.0 [facility] Comment on above: Performed By: #### C BC ####[facility] PATHOLOGY [id number] [place], MCHC (RBC) [Mass/Vol] 34.2 g/dL Normal 32.0-35.9 [facility] Comment on above: Performed By: #### C BC ####[facility] PATHOLOGY [id number] [place], MCV (RBC) [Entitic vol] 94 fL Normal 80-100 [facility] Comment on above: Performed By: #### C BC ####[facility] PATHOLOGY [id number] [place], Platelet mean volume (Bld) [Entitic vol] 10.2 fL Normal 7.5-11.2 [facility] Comment on above: Performed By: #### C BC ####[facility] PATHOLOGY [id number] [place], Platelets (Bld) [#/Vol] 204 10*3/uL Normal 150-400 [facility] Comment on above: Performed By: #### C BC ####[facility] PATHOLOGY [id number] [place], RBC (Bld) [#/Vol] 2.83 10*6/uL Low 4.50-5.90 [facility] Comment on above: Performed By: #### C BC ####[facility] PATHOLOGY [id number] [place], WBC (Bld) [#/Vol] 7.8 10*3/uL Normal 4.5-11.5 [facility] Comment on above: Performed By: #### C BC ####[facility] [id number] [place], Care Plan Noteon 02-21-2021 [employer] Authentication Interface Message Text Normal [facility] Consultson 02-21-2021 [employer] Authentication Interface Message Text Normal [facility] [employer] Authentication Interface Message Text Normal [facility] [employer] Authentication Interface Message Text Normal [facility] MAGNESIUMon 02-21-2021 Magnesium [Mass/Vol] 2.1 mg/dL Normal 1.6-2.8 [facility] Comment on above: Performed By: #### C H8, MG ####[facility] PATHOLOGY [id number] [place], Progress Noteson 02-21-2021 [employer] Authentication Interface Message Text Per Trauma, unclear when pt is ready for DC. Pt accepted to [facility]. Please alert SW when pt is nearing DC. Pt will require a precert. Amada Saul, [facility], [facility] [phone] Normal [facility] [employer] Authentication Interface Message Text Normal [facility] [employer] Authentication Interface Message Text Normal [facility] BASIC METABOLIC PANELon 01-30 Anion gap [Moles/Vol] 9 mmol/L Normal 5-13 [facility] Comment on above: Performed By: #### Rajiv Roque CH8 ####[facility] [id number] [place], Calcium [Mass/Vol] 8.5 mg/dL Normal 8.4-10.4 [facility] Comment on above: Performed By: #### Rajiv Roque, CH8 ####S PATHOLOGY [id number] [place], Chloride [Moles/Vol] 104 mmol/L Normal 97-111 [facility] Comment on above: Performed By: #### Rajiv Roque, CH8 ####[facility] [id number] [place], CO2 [Moles/Vol] 24 mmol/L Normal 21-30 [facility] Comment on above: Performed By: #### Rajiv Roque, CH8 ####S PATHOLOGY [id number] [place], Creatinine [Mass/Vol] 0.95 mg/dL Normal 0.80-1.30 [facility] Comment on above: Performed By: #### Rajiv Roque, CH8 ####S PATHOLOGY [id number] [place], ESTIMATED GFR (CKD-EPI) 79 mL/min/1.73sqm Normal >=60 [facility] Comment on above: Performed By: #### Rajiv Roque, CH8 ####S PATHOLOGY [id number] [place], Glucose [Mass/Vol] 112 mg/dL Normal 80-116 [facility] Comment on above: Performed By: #### Rajiv Roque, ALESHA8 ####S PATHOLOGY [id number] [place], Potassium [Moles/Vol] 4.3 mmol/L Normal 3.3-5.3 [facility] Comment on above: Performed By: #### Rajiv Roque, ALESHA8 ####[facility] PATHOLOGY [id number] [place], Sodium [Moles/Vol] 133 mmol/L Low 135-148 [facility] Comment on above: Performed By: #### Rajiv Roque, ALESHA8 ####[facility] PATHOLOGY [id number] [place], Urea nitrogen [Mass/Vol] 16 mg/dL Normal 8-22 [facility] Comment on above: Performed By: #### Rajiv Roque, ALESHA8 ####S PATHOLOGY [id number] [place], COMPLETE BLOOD COUNTon 02-20 Erythrocyte distribution width (RBC) [Ratio] 14.9 % High 11.5-14.5 [facility] Comment on above: Performed By: #### Austyn BC ####S PATHOLOGY [id number] [place], Hematocrit (Bld) [Volume fraction] 30.1 % Low 41.0-53.0 [facility] Comment on above: Performed By: #### Austyn BC ####[facility] PATHOLOGY [id number] [place], Hemoglobin (Bld) [Mass/Vol] 10.1 g/dL Low 13.9-16.3 [facility] Comment on above: Performed By: #### C BC ####[facility] PATHOLOGY [id number] [place], MCH (RBC) [Entitic mass] 31.7 pg Normal 26.0-34.0 [facility] Comment on above: Performed By: #### C BC ####[facility] PATHOLOGY [id number] [place], MCHC (RBC) [Mass/Vol] 33.5 g/dL Normal 32.0-35.9 [facility] Comment on above: Performed By: #### C BC ####[facility] PATHOLOGY [id number] [place], MCV (RBC) [Entitic vol] 95 fL Normal 80-100 [facility] Comment on above: Performed By: #### C BC ####[facility] PATHOLOGY [id number] [place], Platelet mean volume (Bld) [Entitic vol] 10.1 fL Normal 7.5-11.2 [facility] Comment on above: Performed By: #### C BC ####[facility] PATHOLOGY [id number] [place], Platelets (Bld) [#/Vol] 225 10*3/uL Normal 150-400 [facility] Comment on above: Performed By: #### C BC ####[facility] PATHOLOGY [id number] [place], RBC (Bld) [#/Vol] 3.18 10*6/uL Low 4.50-5.90 [facility] Comment on above: Performed By: #### C BC ####[facility] PATHOLOGY [id number] [place], WBC (Bld) [#/Vol] 8.3 10*3/uL Normal 4.5-11.5 [facility] Comment on above: Performed By: #### C BC ####[facility] [id number] [place], Care Plan Noteon 02-20-2021 [employer] Authentication Interface Message Text Normal [facility] Consultson 02-20-2021 [employer] Authentication Interface Message Text Normal [facility] H AND Martin 02-20-2021 [employer] Authentication Interface Message Text Normal [facility] MAGNESIUMon 02-20-2021 Magnesium [Mass/Vol] 1.8 mg/dL Normal 1.6-2.8 [facility] Comment on above: Performed By: #### Rajiv Roque CH8 ####S PATHOLOGY [id number] [place], Procedureson 02-20-2021 [employer] Authentication Interface Message Text Normal [facility] Progress Noteson 02-20-2021 [employer] Authentication Interface Message Text Normal The [facility] [employer] Authentication Interface Message Text Entered in error. Normal [facility] [employer] Authentication Interface Message Text Normal [facility] [employer] Authentication Interface Message Text Normal [facility] Anesthesia Acute Painon 01-30 [employer] Authentication Interface Message Text Normal [facility] Anesthesia Attestationon [employer] Authentication Interface Message Text Normal [facility] Anesthesia Postprocedure Lucretia luationon 02-19-2021 [employer] Authentication Interface Message Text Normal [facility] [employer] Authentication Interface Message Text Normal [facility] Anesthesia Procedure Noteson 02-19-2021 [employer] Authentication Interface Message Text Normal [facility] Anesthesia Transfer Of Careo n 02-19-2021 [employer] Authentication Interface Message Text Normal [facility] BASIC METABOLIC PANELon 01-30 Anion gap [Moles/Vol] 13 mmol/L Normal 5-13 [facility] Comment on above: Performed By: #### Rajiv Roque CH8 ####[facility] [id number] [place], Calcium [Mass/Vol] 8.9 mg/dL Normal 8.4-10.4 [facility] Comment on above: Performed By: #### Rajiv Roque, ALESHA8 ####[facility] [id number] [place], Chloride [Moles/Vol] 107 mmol/L Normal 97-111 [facility] Comment on above: Performed By: ###Sabrina Roque, CH8 ####[facility] PATHOLOGY [id number] [place], CO2 [Moles/Vol] 21 mmol/L Normal 21-30 [facility] Comment on above: Performed By: #### Rajiv Roque, CH8 ####[facility] PATHOLOGY [id number] [place] [address], Creatinine [Mass/Vol] 1.00 mg/dL Normal 0.80-1.30 [facility] Comment on above: Performed By: #### Rajiv Roque, ALESHA8 ####[facility] PATHOLOGY [id number] [place], ESTIMATED GFR (CKD-EPI) 74 mL/min/1.73sqm Normal >=60 [facility] Comment on above: Performed By: ###Sabrina Roque, ALESHA8 ####[facility] PATHOLOGY [id number] [place] [address], Glucose [Mass/Vol] 102 mg/dL Normal 80-116 [facility] Comment on above: Performed By: #### Rajiv Roque, ALESHA8 ####[facility] PATHOLOGY [id number] [place] [address], Potassium [Moles/Vol] 4.3 mmol/L Normal 3.3-5.3 [facility] Comment on above: Performed By: ###Sabrina Roque, ALESHA8 ####[facility] PATHOLOGY [id number] [place] [address], Sodium [Moles/Vol] 137 mmol/L Normal 135-148 [facility] Comment on above: Performed By: ###Sabrina oRque, CH8 ####[facility] PATHOLOGY [id number] [place], Urea nitrogen [Mass/Vol] 23 mg/dL High 8-22 [facility] Comment on above: Performed By: ###Sabrina Roque, ALESHA8 ####[facility] PATHOLOGY [id number] [place] [address], BLOOD GAS, ARTERIALon 2020 CR % O2 SAT > 99.4 Normal >=95.1 [facility] Comment on above: Performed By: #### C R GLU, CR COOX, CR ICA, CR BGA, CR LYTES, LACT ####[facility] PATHOLOGY [id number] [place], [place], CR MAYCOL -2.1 mmol/L Low -2.0-2.0 [facility] Comment on above: Performed By: #### C R GLU, CR COOX, CR ICA, CR BGA, CR LYTES, LACT ####[facility] PATHOLOGY [id number] [place], CR PCO2 32.5 mm Hg Low 35.0-45.0 [facility] Comment on above: Performed By: #### C R GLU, CR COOX, CR ICA, CR BGA, CR LYTES, LACT ####[facility] PATHOLOGY [id number] [place] [address], CR PHA 7.429 Normal 7.35-7.45 [facility] Comment on above: Performed By: #### C R GLU, CR COOX, CR ICA, CR BGA, CR LYTES, LACT ####[facility] PATHOLOGY [id number] [place] [address], CR PO2 190 mm Hg High 80-100 mm Hg [facility] Comment on above: Performed By: #### C R GLU, CR COOX, CR ICA, CR BGA, CR LYTES, LACT ####[facility] PATHOLOGY [id number] [place] [address], HCO3 (Bld) [Moles/Vol] 21 mmol/L Low - e [facility] Comment on above: Performed By: #### C R GLU, CR COOX, CR ICA, CR BGA, CR LYTES, LACT ####[facility] PATHOLOGY [id number] [place] [address], Brief Operative Noteon 02-19 [employer] Authentication Interface Message Text Normal [facility] CALCIUM, IONIZEDon CR ICA 1.12 mmol/L Normal 1.10-1.40 [facility] Comment on above: Performed By: #### C R GLU, CR COOX, CR ICA, CR BGA, CR LYTES, LACT ####[facility] PATHOLOGY [id number] [place] [address], CO-OXIMETERon 02-19-2021 CARBOXYHEMOGLOBIN 2.2 % Normal <3.0 [facility] Comment on above: Performed By: #### C R GLU, CR COOX, CR ICA, CR BGA, CR LYTES, LACT ####[facility] PATHOLOGY [id number] [place] [address], CR HBMET 1.4 % Normal <3.0 [facility] Comment on above: Performed By: #### C R GLU, CR COOX, CR ICA, CR BGA, CR LYTES, LACT ####[facility] PATHOLOGY [id number] [place] [address], Hematocrit (Bld) [Volume fraction] 31.1 % Low 42.0-52.0 [facility] Comment on above: Performed By: #### C R GLU, CR COOX, CR ICA, CR BGA, CR LYTES, LACT ####[facility] PATHOLOGY [id number] [place] [address], Hemoglobin (Bld) [Mass/Vol] 10.1 g/dL Low 14.0-18.0 [facility] Comment on above: Performed By: #### C R GLU, CR COOX, CR ICA, CR BGA, CR LYTES, LACT ####[facility] PATHOLOGY [id number] [place] [address], OXYHEMOGLOBIN 96.1 % Normal 95.0-100.0 [facility] Comment on above: Performed By: #### C R GLU, CR COOX, CR ICA, CR BGA, CR LYTES, LACT ####[facility] PATHOLOGY [id number] [place] [address], COMPLETE BLOOD COUNTon 02-19 Erythrocyte distribution width (RBC) [Ratio] 14.9 % High 11.5-14.5 [facility] Comment on above: Performed By: #### C BC ####[facility] PATHOLOGY [id number] [place], Hematocrit (Bld) [Volume fraction] 31.8 % Low 41.0-53.0 [facility] Comment on above: Performed By: #### C BC ####[facility] PATHOLOGY [id number] [place], Hemoglobin (Bld) [Mass/Vol] 10.7 g/dL Low 13.9-16.3 [facility] Comment on above: Performed By: #### C BC ####[facility] PATHOLOGY [id number] [place], MCH (RBC) [Entitic mass] 31.7 pg Normal 26.0-34.0 [facility] Comment on above: Performed By: #### C BC ####[facility] PATHOLOGY [id number] [place], MCHC (RBC) [Mass/Vol] 33.8 g/dL Normal 32.0-35.9 [facility] Comment on above: Performed By: #### C BC ####[facility] PATHOLOGY [id number] [place], MCV (RBC) [Entitic vol] 94 fL Normal 80-100 [facility] Comment on above: Performed By: #### C BC ####[facility] PATHOLOGY [id number] [place], Platelet mean volume (Bld) [Entitic vol] 9.6 fL Normal 7.5-11.2 [facility] Comment on above: Performed By: #### C BC ####[facility] PATHOLOGY [id number] [place], Platelets (Bld) [#/Vol] 235 10*3/uL Normal 150-400 [facility] Comment on above: Performed By: #### C BC ####[facility] PATHOLOGY [id number] [place], RBC (Bld) [#/Vol] 3.38 10*6/uL Low 4.50-5.90 [facility] Comment on above: Performed By: #### C BC ####[facility] PATHOLOGY [id number] [place], WBC (Bld) [#/Vol] 6.3 10*3/uL Normal 4.5-11.5 [facility] Comment on above: Performed By: #### C BC ####[facility] PATHOLOGY [id number] [place], Care Plan Noteon 02-19-2021 [employer] Authentication Interface Message Text Normal [facility] Consultson 02-19-2021 [employer] Authentication Interface Message Text PHYSICAL THERAPY and OCCUPATIONAL THERAPY Attempt at Tx this AM is unsuccessful as Patient is off floor in OR with Orthopedics for definitive fixation of (L) ankle. Will f/u Maribell Ocasio, PT, MPT (B) [phone] Rosa Vick, OTR/L Normal [facility] ELECTROLYTESon 02-19-2021 Chloride [Moles/Vol] 109 mmol/L Normal 97-111 [facility] Comment on above: Performed By: #### C R GLU, CR COOX, CR ICA, CR BGA, CR LYTES, LACT ####[facility] PATHOLOGY [id number] [place], Potassium [Moles/Vol] 3.8 mmol/L Normal 3.3-5.3 [facility] Comment on above: Performed By: #### C R GLU, CR COOX, CR ICA, CR BGA, CR LYTES, LACT ####[facility] PATHOLOGY [id number] [place], Sodium [Moles/Vol] 134 mmol/L Low 135-148 [facility] Comment on above: Performed By: #### C R GLU, CR COOX, CR ICA, CR BGA, CR LYTES, LACT ####[facility] PATHOLOGY [id number] [place], GLUCOSE, WHOLE BLOODon 02-19 CR GLU 101 mg/dL High 68-98 [facility] Comment on above: Performed By: #### C R GLU, CR COOX, CR ICA, CR BGA, CR LYTES, LACT ####[facility] PATHOLOGY [id number] [place], H AND Martin 02-19-2021 [employer] Authentication Interface Message Text Normal [facility] LACTIC ACIDon 02-19-2021 CR LACT 0.7 mmol/L Normal 0.5-2.0 [facility] Comment on above: Performed By: #### C R GLU, CR COOX, CR ICA, CR BGA, CR LYTES, LACT ####[facility] PATHOLOGY [id number] [place] [address], MAGNESIUMon 02-19-2021 Magnesium [Mass/Vol] 2.0 mg/dL Normal 1.6-2.8 [facility] Comment on above: Performed By: #### BRITTANI Blum ####[facility] PATHOLOGY [id number] [place] [address], Magnesium [Mass/Vol] 2.0 mg/dL Normal 1.6-2.8 [facility] Comment on above: Performed By: #### Rajiv Roque CH8 ####[facility] PATHOLOGY [id number] [place] [address], OP Noteon 02-19-2021 [employer] Authentication Interface Message Text Normal [facility] PARTIAL THROMBOPLASTIN TIMEo n 02-19-2021 aPTT Coag (Bld) [Time] 34 s Normal 25-37 Th e [facility] Comment on above: Performed By: #### A PTT, PT ####[facility] PATHOLOGY [id number] [place] [address], PHOSPHORUSon 02-19-2021 Phosphate [Mass/Vol] 3.8 mg/dL Normal 2.3-4.2 [facility] Comment on above: Performed By: #### Rajiv Roque PHOS ####[facility] PATHOLOGY [id number] [place] [address], PROTHROMBIN TIME AND INRon 0 02-19-2021 INR Coag (PPP) [Relative time] 1.09 {INR} Normal 0.90-1.10 [facility] Comment on above: Performed By: #### A PTT, PT ####[facility] PATHOLOGY [id number] [place] [address], PT Coag (PPP) [Time] 12.3 s Normal 9.7-12.9 [facility] Comment on above: Performed By: #### A PTT, PT ####S PATHOLOGY [id number] [place], Progress Noteson 02-19-2021 [employer] Authentication Interface Message Text Normal [facility] [employer] Authentication Interface Message Text Peripheral nerve block has been completed at bedside by anesthesia; will maintain cardiac monitoring for at least 30 minutes. Normal [facility] [employer] [employer] Authentication Interface Message Text OK for patient to get peripheral nerve block per Dr. Santos. Normal [facility] [employer] Authentication Interface Message Text Normal [facility] TYPE AND SCREENon 02-19-2021 ABO and Rh group Nom (Bld) Blood group A Rh(D) positive Normal [facility] Comment on above: Performed By: #### T S ####[facility] [id number] [place], ABSC INT Negative Normal [facility] Comment on above: Performed By: #### T S ####S PATHOLOGY [id number] [place], [place] GUIDANCE NEEDLE PLACEMENT on 02-19-2021 US GUIDANCE NEEDLE PLACEMENT Normal [facility] XR ANKLE LEFTon 02-19-2021 XR ANKLE LEFT Normal The [facility] Anesthesia Preprocedure Eval uationon 02-18-2021 [employer] Authentication Interface Message Text Normal The [facility] Care Plan Noteon 02-18-2021 [employer]maker Gar[employer] Authentication Interface Message Text Normal The [facility] Progress Noteson 02-18-2021 [employer]maker Garment [employer] Authentication Interface Message Text SW is aware pt to go to the OR tomorrow: 02/19/2021. Pt will need post-op PT/OT for SNF placement and precert. [facility] has accepted and following for placement. They were made aware of the above TRINIDAD Malcolm, FLOATLIGHT POWDER MIXER [phone] Normal [facility] [employer] Authentication Interface Message Text Normal [facility] [employer] Authentication Interface Message Text Normal [facility] [employer] Authentication Interface Message Text Normal [facility] BASIC METABOLIC PANELon 06-2 Anion gap [Moles/Vol] 12 mmol/L Normal 5-13 [facility] Comment on above: Performed By: #### EDMOND Dupont, MG ####[facility] [id number] [place], Calcium [Mass/Vol] 8.9 mg/dL Normal 8.4-10.4 [facility] Comment on above: Performed By: #### EDMOND Dupont, MG ####[facility] [id number] [place], Chloride [Moles/Vol] 106 mmol/L Normal 97-111 [facility] Comment on above: Performed By: #### EDMOND Dupont, MG ####[facility] [id number] [place], CO2 [Moles/Vol] 22 mmol/L Normal 21-30 [facility] Comment on above: Performed By: #### EDMOND Dupont, MG ####[facility]Y [id number] [place], Creatinine [Mass/Vol] 1.17 mg/dL Normal 0.80-1.30 [facility] Comment on above: Performed By: #### EDMOND Dupont, MG ####[facility] [id number] [place], ESTIMATED GFR (CKD-EPI) 61 mL/min/1.73sqm Normal >=60 [facility] Comment on above: Performed By: #### EDMOND Dupont, MG ####[facility] [id number] [place], Glucose [Mass/Vol] 104 mg/dL Normal 80-116 [facility] Comment on above: Performed By: #### EDMOND Dupont, MG ####[facility] PATH[facility] [id number] [place], Potassium [Moles/Vol] 4.4 mmol/L Normal 3.3-5.3 [facility] Comment on above: Performed By: #### EDMOND Dupont, MG ####[facility] [id number] [place], Sodium [Moles/Vol] 136 mmol/L Normal 135-148 [facility] Comment on above: Performed By: #### C H8EDMOND, MG ####S PATHOLOGY [id number] [place], Urea nitrogen [Mass/Vol] 33 mg/dL High 8-22 [facility] Comment on above: Performed By: #### C H8EDMOND, MG ####[facility] PATHOLOGY [id number] [place], COMPLETE BLOOD COUNTon 02-17 Erythrocyte distribution width (RBC) [Ratio] 14.6 % High 11.5-14.5 [facility] Comment on above: Performed By: #### C BC ####[facility] PATHOLOGY [id number] [place], Hematocrit (Bld) [Volume fraction] 30.4 % Low 41.0-53.0 [facility] Comment on above: Performed By: #### C BC ####[facility] PATHOLOGY [id number] [place], Hemoglobin (Bld) [Mass/Vol] 10.4 g/dL Low 13.9-16.3 [facility] Comment on above: Performed By: #### C BC ####[facility] PATHOLOGY [id number] [place], MCH (RBC) [Entitic mass] 32.4 pg Normal 26.0-34.0 [facility] Comment on above: Performed By: #### C BC ####[facility] PATHOLOGY [id number] [place], MCHC (RBC) [Mass/Vol] 34.2 g/dL Normal 32.0-35.9 [facility] Comment on above: Performed By: #### C BC ####[facility] PATHOLOGY [id number] [place], MCV (RBC) [Entitic vol] 95 fL Normal 80-100 [facility] Comment on above: Performed By: #### C BC ####S PATHOLOGY [id number] [place], Platelet mean volume (Bld) [Entitic vol] 10.2 fL Normal 7.5-11.2 [facility] Comment on above: Performed By: #### C BC ####S PATHOLOGY [id number] [place], Platelets (Bld) [#/Vol] 207 10*3/uL Normal 150-400 [facility] Comment on above: Performed By: #### C BC ####[facility] PATHOLOGY [id number] [place], RBC (Bld) [#/Vol] 3.20 10*6/uL Low 4.50-5.90 [facility] Comment on above: Performed By: #### C BC ####[facility] PATHOLOGY [id number] [place], WBC (Bld) [#/Vol] 9.1 10*3/uL Normal 4.5-11.5 [facility] Comment on above: Performed By: #### C BC ####[facility] PATHOLOGY [id number] [place], Care Plan Noteon 02-17-2021 [employer] Gar[employer] Authentication Interface Message Text Normal [facility] Consultson 02-17-2021 [employer]maker Garment Fitter Authentication Interface Message Text Normal [facility] [employer]maker [employer]itter Authentication Interface Message Text Normal [facility] DIGOXINon 02-17-2021 DIG 0.91 ng/mL Normal 0.80-2.00 [facility] Comment on above: Performed By: #### C H8, DIG, MG ####[facility] PATHOLOGY [id number] [place], MAGNESIUMon 02-17-2021 Magnesium [Mass/Vol] 2.0 mg/dL Normal 1.6-2.8 [facility] Comment on above: Performed By: #### C H8, DIG, MG ####S PATHOLOGY [id number] [place], Progress Noteson 02-17-2021 [employer] Gar[employer] Authentication Interface Message Text Normal [facility] Care Plan Noteon 02-16-2021 [employer]maker Garment Fitter Authentication Interface Message Text Normal [facility] Progress Noteson 02-16-2021 [employer]maker Garment Fitter Authentication Interface Message Text Normal [facility] 1:1 Interactionon 02-15-2021 [employer]maker Garment Fitter Authentication Interface Message Text Normal [facility] BASIC METABOLIC PANELon 06- Anion gap [Moles/Vol] 11 mmol/L Normal 5-13 [facility] Comment on above: Performed By: #### Rajiv Roque, ALESHA8 ####S PATHOLOGY [id number] [place], Calcium [Mass/Vol] 8.8 mg/dL Normal 8.4-10.4 [facility] Comment on above: Performed By: #### Rajiv Roque, ALESHA8 ####S PATHOLOGY [id number] [place], Chloride [Moles/Vol] 108 mmol/L Normal 97-111 [facility] Comment on above: Performed By: ###Sabrina Roque, ALESHA8 ####S PATHOLOGY [id number] [place], CO2 [Moles/Vol] 23 mmol/L Normal 21-30 [facility] Comment on above: Performed By: ###Sabrina Roque, ALESHA8 ####S PATHOLOGY [id number] [place], Creatinine [Mass/Vol] 1.06 mg/dL Normal 0.80-1.30 [facility] Comment on above: Performed By: ###Sabrina Roque, ALESHA8 ####S PATHOLOGY [id number] [place], ESTIMATED GFR (CKD-EPI) 69 mL/min/1.73sqm Normal >=60 [facility] Comment on above: Performed By: ###Sabrina Roque, ALESHA8 ####S PATHOLOGY [id number] [place], Glucose [Mass/Vol] 110 mg/dL Normal 80-116 [facility] Comment on above: Performed By: #### Rajiv Roque, ALESHA8 ####S PATHOLOGY [id number] [place], Potassium [Moles/Vol] 4.3 mmol/L Normal 3.3-5.3 [facility] Comment on above: Performed By: #### Rajiv Roque, CH8 ####[facility] PATHOLOGY [id number] [place], Sodium [Moles/Vol] 138 mmol/L Normal 135-148 [facility] Comment on above: Performed By: #### Rajiv Roque, ALESHA8 ####[facility] PATHOLOGY [id number] [place], Urea nitrogen [Mass/Vol] 34 mg/dL High 8-22 [facility] Comment on above: Performed By: #### Rajiv Roque CH8 ####[facility] PATHOLOGY [id number] [place] [address], COMPLETE BLOOD COUNTon 02-15 Erythrocyte distribution width (RBC) [Ratio] 14.8 % High 11.5-14.5 [facility] Comment on above: Performed By: #### C BC ####[facility] PATHOLOGY [id number] [place] [address], Hematocrit (Bld) [Volume fraction] 30.1 % Low 41.0-53.0 [facility] Comment on above: Performed By: #### C BC ####[facility] PATHOLOGY [id number] [place], Hemoglobin (Bld) [Mass/Vol] 10.1 g/dL Low 13.9-16.3 [facility] Comment on above: Performed By: #### C BC ####[facility] PATHOLOGY [id number] [place], MCH (RBC) [Entitic mass] 31.3 pg Normal 26.0-34.0 [facility] Comment on above: Performed By: #### C BC ####S PATHOLOGY [id number] [place], MCHC (RBC) [Mass/Vol] 33.5 g/dL Normal 32.0-35.9 [facility] Comment on above: Performed By: #### C BC ####[facility] PATHOLOGY [id number] [place], MCV (RBC) [Entitic vol] 93 fL Normal 80-100 [facility] Comment on above: Performed By: #### C BC ####S PATHOLOGY [id number] [place], Platelet mean volume (Bld) [Entitic vol] 10.2 fL Normal 7.5-11.2 [facility] Comment on above: Performed By: #### C BC ####[facility] PATHOLOGY [id number] [place], Platelets (Bld) [#/Vol] 172 10*3/uL Normal 150-400 [facility] Comment on above: Performed By: #### C BC ####[facility] PATHOLOGY [id number] [place], RBC (Bld) [#/Vol] 3.23 10*6/uL Low 4.50-5.90 [facility] Comment on above: Performed By: #### C BC ####[facility] PATHOLOGY [id number] [place], WBC (Bld) [#/Vol] 9.1 10*3/uL Normal 4.5-11.5 [facility] Comment on above: Performed By: #### C BC ####[facility] PATHOLOGY [id number] [place], Care Plan Noteon 02-15-2021 Dressmaker Garment [employer]itter Authentication Interface Message Text Normal [facility] Consultson 02-15-2021 Dressmaker Garment Fitter Authentication Interface Message Text Normal [facility] Dressmaker Garment Fitter Authentication Interface Message Text Normal [facility] MAGNESIUMon 02-15-2021 Magnesium [Mass/Vol] 2.0 mg/dL Normal 1.6-2.8 [facility] Comment on above: Performed By: #### M ALESHA Roque8 ####[facility] PATHOLOGY [id number] [place], [place], Progress Noteson 02-15-2021 Dressmaker Garment Fitter Authentication Interface Message Text Labs and vitals stable, known current state of variable aflutter block causing HR variability from 70-140s. No acute issues since ICU transfer. Normal [facility] Dressmaker Garment Fitter Authentication Interface Message Text Normal [facility] Dressmaker Garment Fitter Authentication Interface Message Text Normal [facility] 1:1 Interactionon 02-14-2021 Dressmaker Garment Fitter Authentication Interface Message Text Normal [facility] BASIC METABOLIC PANELon 01-29 Anion gap [Moles/Vol] 11 mmol/L Normal 5-13 [facility] Comment on above: Performed By: #### Rajiv Roque, ALESHA8 ####S PATHOLOGY [id number] [place], Calcium [Mass/Vol] 8.6 mg/dL Normal 8.4-10.4 [facility] Comment on above: Performed By: ###Sabrina Roque, ALESHA8 ####S PATHOLOGY [id number] [place], Chloride [Moles/Vol] 110 mmol/L Normal 97-111 [facility] Comment on above: Performed By: ###Sabrina Roque, ALESHA8 ####[facility] PATHOLOGY [id number] [place], CO2 [Moles/Vol] 24 mmol/L Normal 21-30 [facility] Comment on above: Performed By: ###Sabrina Roqeu, ALESHA8 ####S PATHOLOGY [id number] [place], Creatinine [Mass/Vol] 0.92 mg/dL Normal 0.80-1.30 [facility] Comment on above: Performed By: ###Sabrina Roque, ALESHA8 ####S PATHOLOGY [id number] [place], ESTIMATED GFR (CKD-EPI) 82 mL/min/1.73sqm Normal >=60 [facility] Comment on above: Performed By: ###Sabrina Roque, ALESHA8 ####S PATHOLOGY [id number] [place], Glucose [Mass/Vol] 116 mg/dL Normal 80-116 [facility] Comment on above: Performed By: #### Rajiv Roque, ALESHA8 ####S PATHOLOGY [id number] [place], Potassium [Moles/Vol] 4.3 mmol/L Normal 3.3-5.3 [facility] Comment on above: Performed By: #### Rajiv Roque, ALESHA8 ####[facility] PATHOLOGY [id number] [place], Sodium [Moles/Vol] 141 mmol/L Normal 135-148 [facility] Comment on above: Performed By: #### Rajiv Roque, ALESHA8 ####[facility] PATHOLOGY [id number] [place], Urea nitrogen [Mass/Vol] 36 mg/dL High 8-22 [facility] Comment on above: Performed By: #### Rajiv Roque, ALESHA8 ####[facility] PATHOLOGY [id number] [place], COMPLETE BLOOD COUNTon 02-14 Erythrocyte distribution width (RBC) [Ratio] 14.8 % High 11.5-14.5 [facility] Comment on above: Performed By: #### C BC ####[facility] PATHOLOGY [id number] [place] [address], Hematocrit (Bld) [Volume fraction] 29.5 % Low 41.0-53.0 [facility] Comment on above: Performed By: #### C BC ####[facility] PATHOLOGY [id number] [place] [address], Hemoglobin (Bld) [Mass/Vol] 9.9 g/dL Low 13.9-16.3 [facility] Comment on above: Performed By: #### C BC ####[facility] PATHOLOGY [id number] [place], MCH (RBC) [Entitic mass] 31.9 pg Normal 26.0-34.0 [facility] Comment on above: Performed By: #### C BC ####[facility] PATHOLOGY [id number] [place] [address], MCHC (RBC) [Mass/Vol] 33.5 g/dL Normal 32.0-35.9 [facility] Comment on above: Performed By: #### C BC ####[facility] PATHOLOGY [id number] [place] [address], MCV (RBC) [Entitic vol] 95 fL Normal 80-100 [facility] Comment on above: Performed By: #### C BC ####S PATHOLOGY [id number] [place], Platelet mean volume (Bld) [Entitic vol] 10.8 fL Normal 7.5-11.2 [facility] Comment on above: Performed By: #### C BC ####[facility] PATHOLOGY [id number] [place], Platelets (Bld) [#/Vol] 131 10*3/uL Low 150-400 [facility] Comment on above: Performed By: #### C BC ####[facility] PATHOLOGY [id number] [place], RBC (Bld) [#/Vol] 3.09 10*6/uL Low 4.50-5.90 [facility] Comment on above: Performed By: #### C BC ####[facility] PATHOLOGY [id number] [place], WBC (Bld) [#/Vol] 6.8 10*3/uL Normal 4.5-11.5 [facility] Comment on above: Performed By: #### C BC ####[facility] PATHOLOGY [id number] [place] [address], Care Plan Noteon 02-14-2021 Dressmaker Garment Fitter Authentication Interface Message Text Normal [facility] Dressmaker Garment Fitter Authentication Interface Message Text Normal [facility] Consultson 02-14-2021 Dressmaker Garment Fitter Authentication Interface Message Text Normal [facility] Dressmaker Garment Fitter Authentication Interface Message Text Normal [facility] Dressmaker Garment Fitter Authentication Interface Message Text Normal [facility] MAGNESIUMon 02-14-2021 Magnesium [Mass/Vol] 2.5 mg/dL Normal 1.6-2.8 [facility] Comment on above: Performed By: #### M G, CH8 ####S PATHOLOGY [id number] [place], Progress Noteson 02-14-2021 Dressmaker Garment Fitter Authentication Interface Message Text Normal [facility] Dressmaker Garment Fitter Authentication Interface Message Text Normal [facility] Dressmaker Garment Fitter Authentication Interface Message Text Normal [facility] BASIC METABOLIC PANELon 01-29 Anion gap [Moles/Vol] 9 mmol/L Normal 5-13 [facility] Comment on above: Performed By: #### Austyn Saleh8, MG ####[facility] [id number] [place], Calcium [Mass/Vol] 8.9 mg/dL Normal 8.4-10.4 [facility] Comment on above: Performed By: #### Austyn H8, MG ####[facility] [id number] [place], Chloride [Moles/Vol] 108 mmol/L Normal 97-111 [facility] Comment on above: Performed By: #### Austyn Tamez, MG ####S PATHOLOGY [id number] [place], CO2 [Moles/Vol] 27 mmol/L Normal 21-30 [facility] Comment on above: Performed By: #### Austyn H8, MG ####[facility] [id number] [place], Creatinine [Mass/Vol] 0.89 mg/dL Normal 0.80-1.30 [facility] Comment on above: Performed By: #### Austyn H8, MG ####[facility] [id number] [place], ESTIMATED GFR (CKD-EPI) 84 mL/min/1.73sqm Normal >=60 [facility] Comment on above: Performed By: #### Austyn H8, MG ####[facility] [id number] [place], Glucose [Mass/Vol] 127 mg/dL High 80-116 [facility] Comment on above: Performed By: #### Austyn H8, MG ####[facility] [id number] [place], Potassium [Moles/Vol] 3.9 mmol/L Normal 3.3-5.3 [facility] Comment on above: Performed By: #### Austyn H8, MG ####S PATHOLOGY [id number] [place], Sodium [Moles/Vol] 140 mmol/L Normal 135-148 [facility] Comment on above: Performed By: #### C H8, MG ####S PATHOLOGY [id number] [place], Urea nitrogen [Mass/Vol] 29 mg/dL High 8-22 [facility] Comment on above: Performed By: #### C H8, MG ####[facility] PATHOLOGY [id number] [place], COMPLETE BLOOD COUNTon 02-13 Erythrocyte distribution width (RBC) [Ratio] 14.5 % Normal 11.5-14.5 [facility] Comment on above: Performed By: #### C BC ####[facility] PATHOLOGY [id number] [place], Hematocrit (Bld) [Volume fraction] 29.0 % Low 41.0-53.0 [facility] Comment on above: Performed By: #### C BC ####[facility] PATHOLOGY [id number] [place], Hemoglobin (Bld) [Mass/Vol] 9.8 g/dL Low 13.9-16.3 [facility] Comment on above: Performed By: #### C BC ####[facility] PATHOLOGY [id number] [place], MCH (RBC) [Entitic mass] 31.6 pg Normal 26.0-34.0 [facility] Comment on above: Performed By: #### C BC ####[facility] PATHOLOGY [id number] [place], MCHC (RBC) [Mass/Vol] 33.9 g/dL Normal 32.0-35.9 [facility] Comment on above: Performed By: #### C BC ####S PATHOLOGY [id number] [place], MCV (RBC) [Entitic vol] 93 fL Normal 80-100 [facility] Comment on above: Performed By: #### C BC ####S PATHOLOGY [id number] [place], Platelet mean volume (Bld) [Entitic vol] 10.8 fL Normal 7.5-11.2 [facility] Comment on above: Performed By: #### C BC ####[facility] [id number] [place], Platelets (Bld) [#/Vol] 132 10*3/uL Low 150-400 [facility] Comment on above: Performed By: #### C BC ####S PATHOLOGY [id number] [place], RBC (Bld) [#/Vol] 3.11 10*6/uL Low 4.50-5.90 [facility] Comment on above: Performed By: #### C BC ####[facility] PATHOLOGY [id number] [place], WBC (Bld) [#/Vol] 7.1 10*3/uL Normal 4.5-11.5 [facility] Comment on above: Performed By: #### C BC ####[facility] PATHOLOGY [id number] [place], Consultson 02-13-2021 Dressmaker Garment Fitter Authentication Interface Message Text Normal [facility] Dressmaker Garment Fitter Authentication Interface Message Text Normal [facility] MAGNESIUMon 02-13-2021 Magnesium [Mass/Vol] 1.9 mg/dL Normal 1.6-2.8 [facility] Comment on above: Performed By: #### C H8, MG ####S PATHOLOGY [id number] [place], Progress Noteson 02-13-2021 Dressmaker Garment Fitter Authentication Interface Message Text Normal [facility] Dressmaker Garment Fitter Authentication Interface Message Text Normal [facility] 1:1 Interactionon 02-12-2021 Dressmaker Garment Fitter Authentication Interface Message Text Normal [facility] BASIC METABOLIC PANELon 01-29 Anion gap [Moles/Vol] 10 mmol/L Normal 5-13 [facility] Comment on above: Performed By: #### C H8, MG, DIG ####S PATHOLOGY [id number] [place], Calcium [Mass/Vol] 8.7 mg/dL Normal 8.4-10.4 [facility] Comment on above: Performed By: #### Austyn Tamez MG, DIG ####[facility] [id number] [place], Chloride [Moles/Vol] 108 mmol/L Normal 97-111 [facility] Comment on above: Performed By: #### MG Kiah, DIG ####[facility] [id number] [place], CO2 [Moles/Vol] 26 mmol/L Normal 21-30 [facility] Comment on above: Performed By: #### MG Kiah, DIG ####[facility] [id number] [place], Creatinine [Mass/Vol] 1.10 mg/dL Normal 0.80-1.30 [facility] Comment on above: Performed By: #### MG Kiah, DIG ####[facility] [id number] [place], ESTIMATED GFR (CKD-EPI) 66 mL/min/1.73sqm Normal >=60 [facility] Comment on above: Performed By: #### Austyn Tamez MG, DIG ####[facility] [id number] [place], Glucose [Mass/Vol] 116 mg/dL Normal 80-116 [facility] Comment on above: Performed By: #### Austyn Tamez MG, DIG ####[facility] [id number] [place], Potassium [Moles/Vol] 4.2 mmol/L Normal 3.3-5.3 [facility] Comment on above: Performed By: #### Austyn Tamez MG, DIG ####[facility] [id number] [place], Sodium [Moles/Vol] 140 mmol/L Normal 135-148 [facility] Comment on above: Performed By: #### C H8, MG, DIG ####S PATHOLOGY [id number] [place], Urea nitrogen [Mass/Vol] 33 mg/dL High 8-22 [facility] Comment on above: Performed By: #### C MG Joi, DIG ####S PATHOLOGY [id number] [place], COMPLETE BLOOD COUNTon 02-12 Erythrocyte distribution width (RBC) [Ratio] 14.5 % Normal 11.5-14.5 [facility] Comment on above: Performed By: #### C BC ####[facility] PATHOLOGY [id number] [place], Hematocrit (Bld) [Volume fraction] 27.5 % Low 41.0-53.0 [facility] Comment on above: Performed By: #### C BC ####[facility] PATHOLOGY [id number] [place], Hemoglobin (Bld) [Mass/Vol] 9.2 g/dL Low 13.9-16.3 [facility] Comment on above: Performed By: #### C BC ####[facility] PATHOLOGY [id number] [place], MCH (RBC) [Entitic mass] 31.1 pg Normal 26.0-34.0 [facility] Comment on above: Performed By: #### C BC ####[facility] PATHOLOGY [id number] [place], MCHC (RBC) [Mass/Vol] 33.4 g/dL Normal 32.0-35.9 [facility] Comment on above: Performed By: #### C BC ####[facility] PATHOLOGY [id number] [place], MCV (RBC) [Entitic vol] 93 fL Normal 80-100 [facility] Comment on above: Performed By: #### C BC ####S PATHOLOGY [id number] [place], Platelet mean volume (Bld) [Entitic vol] 10.8 fL Normal 7.5-11.2 [facility] Comment on above: Performed By: #### C BC ####[facility] [id number] [place], Platelets (Bld) [#/Vol] 109 10*3/uL Low 150-400 [facility] Comment on above: Performed By: #### C BC ####[facility] [id number] [place], RBC (Bld) [#/Vol] 2.95 10*6/uL Low 4.50-5.90 [facility] Comment on above: Performed By: #### C BC ####S PATHOLOGY [id number] [place], WBC (Bld) [#/Vol] 7.5 10*3/uL Normal 4.5-11.5 [facility] Comment on above: Performed By: #### C BC ####S PATHOLOGY [id number] [place], Care Plan Noteon 02-12-2021 Dressmaker Garment Fitter Authentication Interface Message Text Normal [facility] Consultson 02-12-2021 Dressmaker Garment Fitter Authentication Interface Message Text Normal [facility] Dressmaker Garment Fitter Authentication Interface Message Text Normal [facility] Dressmaker Garment Fitter Authentication Interface Message Text Normal [facility] DIGOXINon 02-12-2021 DIG 0.92 ng/mL Normal 0.80-2.00 [facility] Comment on above: Performed By: #### C H8, MG, DIG ####S PATHOLOGY [id number] [place], [place] MODIFIED BARIUM SWALLOWon 02-12-2021 [place] MODIFIED BARIUM SWALLOW Normal [facility] MAGNESIUMon 02-12-2021 Magnesium [Mass/Vol] 2.0 mg/dL Normal 1.6-2.8 [facility] Comment on above: Performed By: #### C H8, MG, DIG ####[facility] [id number] [place], [place] Noteson 02-12-2021 Dressmaker Garment Fitter Authentication Interface Message Text Normal [facility] Dressmaker Garment Fitter Authentication Interface Message Text Normal [facility] BASIC METABOLIC PANELon 01-291 Anion gap [Moles/Vol] 10 mmol/L Normal 5-13 [facility] Comment on above: Performed By: #### Austyn Tamez, MG ####[facility] PATH[facility] [id number] [place], Calcium [Mass/Vol] 8.6 mg/dL Normal 8.4-10.4 [facility] Comment on above: Performed By: #### Austyn Tamez, MG ####[facility] [id number] [place], Chloride [Moles/Vol] 106 mmol/L Normal 97-111 [facility] Comment on above: Performed By: #### Austyn Tamez, MG ####[facility] [id number] [place], CO2 [Moles/Vol] 26 mmol/L Normal 21-30 [facility] Comment on above: Performed By: #### Austyn Tamez, MG ####S PATHOLOGY [id number] [place], Creatinine [Mass/Vol] 1.01 mg/dL Normal 0.80-1.30 [facility] Comment on above: Performed By: #### Austyn Tamez, MG ####S PATHOLOGY [id number] [place], ESTIMATED GFR (CKD-EPI) 73 mL/min/1.73sqm Normal >=60 [facility] Comment on above: Performed By: #### Austyn Tamez, MG ####[facility] [id number] [place], Glucose [Mass/Vol] 121 mg/dL High 80-116 [facility] Comment on above: Performed By: #### Austyn Tamez, MG ####[facility] [id number] [place], Potassium [Moles/Vol] 4.0 mmol/L Normal 3.3-5.3 [facility] Comment on above: Performed By: #### Austyn Tamez, MG ####[facility] [id number] [place], Sodium [Moles/Vol] 138 mmol/L Normal 135-148 [facility] Comment on above: Performed By: #### C H8, MG ####[facility] PATHOLOGY [id number] [place], Urea nitrogen [Mass/Vol] 22 mg/dL Normal 8-22 [facility] Comment on above: Performed By: #### C H8, MG ####[facility] PATHOLOGY [id number] [place] [address], COMPLETE BLOOD COUNTon 02-11 Erythrocyte distribution width (RBC) [Ratio] 14.1 % Normal 11.5-14.5 [facility] Comment on above: Performed By: #### C BC ####[facility] PATHOLOGY [id number] [place] [address], Hematocrit (Bld) [Volume fraction] 29.6 % Low 41.0-53.0 [facility] Comment on above: Performed By: #### C BC ####[facility] PATHOLOGY [id number] [place] [address], Hemoglobin (Bld) [Mass/Vol] 10.2 g/dL Low 13.9-16.3 [facility] Comment on above: Performed By: #### C BC ####[facility] PATHOLOGY [id number] [place] [address], MCH (RBC) [Entitic mass] 32.3 pg Normal 26.0-34.0 [facility] Comment on above: Performed By: #### C BC ####[facility] PATHOLOGY [id number] [place] [address], MCHC (RBC) [Mass/Vol] 34.4 g/dL Normal 32.0-35.9 [facility] Comment on above: Performed By: #### C BC ####[facility] PATHOLOGY [id number] [place] [address], MCV (RBC) [Entitic vol] 94 fL Normal 80-100 [facility] Comment on above: Performed By: #### C BC ####[facility] PATHOLOGY [id number] [place] [address], Platelet mean volume (Bld) [Entitic vol] 10.3 fL Normal 7.5-11.2 [facility] Comment on above: Performed By: #### C BC ####S PATHOLOGY [id number] [place], Platelets (Bld) [#/Vol] 101 10*3/uL Low 150-400 [facility] Comment on above: Performed By: #### C BC ####[facility] PATHOLOGY [id number] [place] [address], RBC (Bld) [#/Vol] 3.15 10*6/uL Low 4.50-5.90 [facility] Comment on above: Performed By: #### C BC ####[facility] PATHOLOGY [id number] [place], WBC (Bld) [#/Vol] 8.2 10*3/uL Normal 4.5-11.5 [facility] Comment on above: Performed By: #### C BC ####[facility] PATHOLOGY [id number] [place] [address], Care Plan Noteon 02-11-2021 Dressmaker Garment Fitter Authentication Interface Message Text Normal [facility] Dressmaker Garment Fitter Authentication Interface Message Text Normal [facility] Consultson 02-11-2021 Dressmaker Garment Fitter Authentication Interface Message Text Normal [facility] DIGOXINon 02-11-2021 DIG 1.91 ng/mL Normal 0.80-2.00 [facility] Comment on above: Performed By: #### D IG ####S PATHOLOGY [id number] [place] [address], MAGNESIUMon 02-11-2021 Magnesium [Mass/Vol] 2.0 mg/dL Normal 1.6-2.8 [facility] Comment on above: Performed By: #### C H8, MG ####S PATHOLOGY [id number] [place], Progress Noteson 02-11-2021 Dressmaker Garment Fitter Authentication Interface Message Text Normal [facility] Dressmaker Garment Fitter Authentication Interface Message Text Normal [facility] Dressmaker Garment Fitter Authentication Interface Message Text Normal [facility] Dressmaker Garment Fitter Authentication Interface Message Text Normal [facility] Dressmaker Garment Fitter Authentication Interface Message Text Normal [facility] 1:1 Interactionon 02-10-2021 Dressmaker Garment Fitter Authentication Interface Message Text Normal [facility] ANTI FXA-LMW HEPARINon 02-10 ANTI FXA-LMW HEPARIN ASSAY 1.35 IU/mL Normal [facility] Comment on above: Order Comment: The r ecommended therapeutic range for treatment of thrombosis with Low Molecular Weight Heparin is 0.5 - 1.0 IU/mLThe recommended range for VTE prophylaxis with Low Molecular Weight Heparin is 0.2 - 0.4 IU/mL. Performed By: #### A XL ####[facility] [id number] [place], BASIC METABOLIC PANELon 01-29 Anion gap [Moles/Vol] 9 mmol/L Normal 5-13 [facility] Comment on above: Performed By: #### C H8, MG ####S PATHOLOGY [id number] [place], Calcium [Mass/Vol] 8.9 mg/dL Normal 8.4-10.4 [facility] Comment on above: Performed By: #### C H8, MG ####[facility] [id number] [place], Chloride [Moles/Vol] 110 mmol/L Normal 97-111 [facility] Comment on above: Performed By: #### C H8, MG ####[facility] [id number] [place], CO2 [Moles/Vol] 26 mmol/L Normal 21-30 [facility] Comment on above: Performed By: #### C H8, MG ####[facility] [id number] [place], Creatinine [Mass/Vol] 1.10 mg/dL Normal 0.80-1.30 [facility] Comment on above: Performed By: #### C H8, MG ####[facility] [id number] [place], ESTIMATED GFR (CKD-EPI) 66 mL/min/1.73sqm Normal >=60 [facility] Comment on above: Performed By: #### C H8, MG ####[facility] [id number] [place], Glucose [Mass/Vol] 128 mg/dL High 80-116 [facility] Comment on above: Performed By: #### C H8, MG ####[facility] [id number] [place], Potassium [Moles/Vol] 3.7 mmol/L Normal 3.3-5.3 [facility] Comment on above: Performed By: #### C H8, MG ####S PATHOLOGY [id number] [place], [place], Sodium [Moles/Vol] 141 mmol/L Normal 135-148 [facility] Comment on above: Performed By: #### C H8, MG ####S PATHOLOGY [id number] [place], Urea nitrogen [Mass/Vol] 17 mg/dL Normal 8-22 [facility] Comment on above: Performed By: #### C H8, MG ####S PATHOLOGY [id number] [place], COMPLETE BLOOD COUNT 02-10 Erythrocyte distribution width (RBC) [Ratio] 14.0 % Normal 11.5-14.5 [facility] Comment on above: Performed By: #### C BC ####[facility] [id number] [place], Hematocrit (Bld) [Volume fraction] 29.7 % Low 41.0-53.0 [facility] Comment on above: Performed By: #### C BC ####S PATHOLOGY [id number] [place], Hemoglobin (Bld) [Mass/Vol] 10.1 g/dL Low 13.9-16.3 [facility] Comment on above: Performed By: #### C BC ####[facility] PATH[facility] [id number] [place], MCH (RBC) [Entitic mass] 31.5 pg Normal 26.0-34.0 [facility] Comment on above: Performed By: #### C BC ####S PATHOLOGY [id number] [place], MCHC (RBC) [Mass/Vol] 34.0 g/dL Normal 32.0-35.9 [facility] Comment on above: Performed By: #### C BC ####S PATHOLOGY [id number] [place], MCV (RBC) [Entitic vol] 93 fL Normal 80-100 [facility] Comment on above: Performed By: #### C BC ####S PATHOLOGY [id number] [place], Platelet mean volume (Bld) [Entitic vol] 10.6 fL Normal 7.5-11.2 [facility] Comment on above: Performed By: #### C BC ####[facility] PATHOLOGY [id number] [place], Platelets (Bld) [#/Vol] 90 10*3/uL Low 150-400 [facility] Comment on above: Performed By: #### C BC ####[facility] PATHOLOGY [id number] [place], RBC (Bld) [#/Vol] 3.20 10*6/uL Low 4.50-5.90 [facility] Comment on above: Performed By: #### C BC ####S PATHOLOGY [id number] [place], WBC (Bld) [#/Vol] 6.9 10*3/uL Normal 4.5-11.5 [facility] Comment on above: Performed By: #### C BC ####[facility] PATHOLOGY [id number] [place], Care Plan Noteon 02-10-2021 [employer] Authentication Interface Message Text Normal [facility] [employer] [employer] Authentication Interface Message Text Normal [facility] Consultson 02-10-2021 [employer] Authentication Interface Message Text Normal [facility] ED US FOCUSED CARDIACon - ED US FOCUSED CARDIAC Normal [facility] MAGNESIUMon 02-10-2021 Magnesium [Mass/Vol] 1.7 mg/dL Normal 1.6-2.8 [facility] Comment on above: Performed By: #### Austyn Tamez, MG ####[facility] PATHOLOGY [id number] [place], Progress Noteson 02-10-2021 [employer] Authentication Interface Message Text Normal [facility] [employer] Authentication Interface Message Text Normal [facility] [employer] Authentication Interface Message Text Normal [facility] Treatment Plan Noteon 2020 [employer] Authentication Interface Message Text Normal [facility] XR CHEST AP OR PA 1 VIEWon 0 02-10-2021 XR CHEST AP OR PA 1 VIEW Normal [facility] ANTI FXA-LMW HEPARINon 02-09 ANTI FXA-LMW HEPARIN ASSAY 0.41 IU/mL Normal [facility] Comment on above: Order Comment: The r ecommended therapeutic range for treatment of thrombosis with Low Molecular Weight Heparin is 0.5 - 1.0 IU/mLThe recommended range for VTE prophylaxis with Low Molecular Weight Heparin is 0.2 - 0.4 IU/mL. Performed By: #### A XL ####S PATHOLOGY [id number] [place], BASIC METABOLIC PANELon 01-29 Anion gap [Moles/Vol] 12 mmol/L Normal 5-13 [facility] Comment on above: Performed By: #### Austyn HSajan, MG ####[facility] PATHOLOGY [id number] [place], Calcium [Mass/Vol] 8.4 mg/dL Normal 8.4-10.4 [facility] Comment on above: Performed By: #### Austyn Tamez, MG ####[facility] PATHOLOGY [id number] [place], Chloride [Moles/Vol] 114 mmol/L High 97-111 [facility] Comment on above: Performed By: #### Austyn Tamez, MG ####[facility] PATHOLOGY [id number] [place], CO2 [Moles/Vol] 22 mmol/L Normal 21-[address] [facility] Comment on above: Performed By: #### C H8, MG ####[facility] PATHOLOGY [id number] [place], Creatinine [Mass/Vol] 1.04 mg/dL Normal 0.80-1.[address] [facility] Comment on above: Performed By: #### C H8, MG ####[facility] PATHOLOGY [id number] [place], ESTIMATED GFR (CKD-EPI) 70 mL/min/1.73sqm Normal >=[address] [facility] Comment on above: Performed By: #### C H8, MG ####S PATHOLOGY [id number] [place], Glucose [Mass/Vol] 103 mg/dL Normal 80-[address] [facility] Comment on above: Performed By: #### C H8, MG ####S PATHOLOGY [id number] [place], Potassium [Moles/Vol] 3.7 mmol/L Normal 3.3-5.3 [facility] Comment on above: Performed By: #### C H8, MG ####S PATHOLOGY YUJWZLEYWV77[address] [place] [address], Sodium [Moles/Vol] 144 mmol/L Normal 135-[address] [facility] Comment on above: Performed By: #### C H8, MG ####S PATHOLOGY [id number] [place], Urea nitrogen [Mass/Vol] 18 mg/dL Normal 8-[address] [facility] Comment on above: Performed By: #### C H8, MG ####[facility] PATHOLOGY [id number] [place], COMPLETE BLOOD COUNTon 02-09 Erythrocyte distribution width (RBC) [Ratio] 14.0 % Normal 11.5-14.[address] [facility] Comment on above: Performed By: #### C BC ####[facility] PATHOLOGY [id number] [place], Hematocrit (Bld) [Volume fraction] 29.9 % Low 41.0-53.0 [facility] Comment on above: Performed By: #### C BC ####[facility] PATHOLOGY [id number] [place], Hemoglobin (Bld) [Mass/Vol] 10.1 g/dL Low 13.9-16.3 [facility] Comment on above: Performed By: #### C BC ####[facility] PATHOLOGY [id number] [place], MCH (RBC) [Entitic mass] 31.7 pg Normal 26.0-34.0 [facility] Comment on above: Performed By: #### C BC ####[facility] PATHOLOGY [id number] [place], MCHC (RBC) [Mass/Vol] 33.7 g/dL Normal 32.0-35.9 [facility] Comment on above: Performed By: #### C BC ####[facility] PATHOLOGY [id number] [place] [address], MCV (RBC) [Entitic vol] 94 fL Normal 80-100 [facility] Comment on above: Performed By: #### C BC ####[facility] PATHOLOGY [id number] [place], Platelet mean volume (Bld) [Entitic vol] 10.8 fL Normal 7.5-11.2 [facility] Comment on above: Performed By: #### C BC ####[facility] PATHOLOGY [id number] [place], Platelets (Bld) [#/Vol] 92 10*3/uL Low 150-400 [facility] Comment on above: Performed By: #### C BC ####[facility] PATHOLOGY [id number] [place], RBC (Bld) [#/Vol] 3.18 10*6/uL Low 4.50-5.90 [facility] Comment on above: Performed By: #### C BC ####[facility] PATHOLOGY [id number] [place], WBC (Bld) [#/Vol] 6.5 10*3/uL Normal 4.5-11.5 [facility] Comment on above: Performed By: #### C BC ####[facility] PATHOLOGY [id number] [place], Care Plan Noteon 02-09-2021 [employer] Authentication Interface Message Text Normal [facility] [employer] Authentication Interface Message Text Normal [facility] Consultson 02-09-2021 [employer]maker [employer] Authentication Interface Message Text Normal [facility] MAGNESIUMon 02-09-2021 Magnesium [Mass/Vol] 2.0 mg/dL Normal 1.6-2.8 [facility] Comment on above: Performed By: #### Austyn H8, MG ####[facility] PATHOLOGY [id number] [place], Progress Noteson 02-09-2021 [employer] Authentication Interface Message Text Normal [facility] [employer] Authentication Interface Message Text Normal [facility] XR CHEST AP OR PA 1 VIEWon 0 02-09-2021 XR CHEST AP OR PA 1 VIEW Normal [facility] 1:1 Interactionon 02-08-2021 [employer]maker Gar[employer] Authentication Interface Message Text Normal [facility] AMMONIAon 02-08-2021 AMMO 14 umol/L Normal 11-35 [facility] Comment on above: Performed By: #### A MMO ####[facility] PATHOLOGY [id number] [place], BASIC METABOLIC PANELon 01-29 Anion gap [Moles/Vol] 8 mmol/L Normal 5-13 [facility] Comment on above: Performed By: #### Austyn H8, MG, CK ####[facility] PATHOLOGY [id number] [place], Calcium [Mass/Vol] 8.2 mg/dL Low 8.4-10.4 [facility] Comment on above: Performed By: #### Austyn HSajan, MG, CK ####[facility] PATHOLOGY [id number] [place], Chloride [Moles/Vol] 117 mmol/L High 97-111 [facility] Comment on above: Performed By: #### C H8, MG, CK ####[facility] PATHOLOGY [id number] [place], CO2 [Moles/Vol] 22 mmol/L Normal 21-30 [facility] Comment on above: Performed By: #### C H8, MG, CK ####[facility] PATHOLOGY [id number] [place], Creatinine [Mass/Vol] 0.99 mg/dL Normal 0.80-1.30 [facility] Comment on above: Performed By: #### C H8, MG, CK ####[facility] PATHOLOGY [id number] [place], ESTIMATED GFR (CKD-EPI) 75 mL/min/1.73sqm Normal >=60 [facility] Comment on above: Performed By: #### C H8, MG, CK ####S PATHOLOGY [id number] [place], Glucose [Mass/Vol] 93 mg/dL Normal 80-116 [facility] Comment on above: Performed By: #### C H8, MG, CK ####S PATHOLOGY [id number] [place], Potassium [Moles/Vol] 3.9 mmol/L Normal 3.3-5.3 [facility] Comment on above: Performed By: #### C H8, MG, CK ####S PATHOLOGY [id number] [place], Sodium [Moles/Vol] 143 mmol/L Normal 135-148 [facility] Comment on above: Performed By: #### C H8, MG, CK ####S PATHOLOGY [id number] [place], Urea nitrogen [Mass/Vol] 17 mg/dL Normal 8-22 [facility] Comment on above: Performed By: #### C H8, MG, CK ####[facility] PATHOLOGY [id number] [place], BLOOD GAS, ARTERIALon 2020 CR % O2 SAT > 99.4 Normal >=95.1 [facility] Comment on above: Performed By: #### C R BGA ####[facility] PATHOLOGY [id number] [place], CR MAYCOL -3.3 mmol/L Low -2.0-2.0 [facility] Comment on above: Performed By: #### C R BGA ####[facility] PATHOLOGY [id number] [place], CR PCO2 30.3 mm Hg Low 35.0-45.0 [facility] Comment on above: Performed By: #### C R BGA ####[facility] PATHOLOGY [id number] [place] [address], CR PHA 7.430 Normal 7.35-7.45 [facility] Comment on above: Performed By: #### C R BGA ####[facility] PATHOLOGY [id number] [place] [address], CR PO2 179 mm Hg High 80-100 mm Hg [facility] Comment on above: Performed By: #### C R BGA ####[facility] PATHOLOGY [id number] [place] [address], FIO2 (CATEGORY) 5 LPM Normal [facility] Comment on above: Performed By: #### C R BGA ####[facility] PATHOLOGY [id number] [place] [address], HCO3 (Bld) [Moles/Vol] 20 mmol/L Low 22-28 [facility] Comment on above: Performed By: #### C R BGA ####[facility] PATHOLOGY [id number] [place] [address], MODE Nasal Canula Normal [facility] Comment on above: Performed By: #### C R BGA ####[facility] PATHOLOGY [id number] [place], COMPLETE BLOOD COUNTon 02-08 Erythrocyte distribution width (RBC) [Ratio] 14.3 % Normal 11.5-14.5 [facility] Comment on above: Performed By: #### C BC ####[facility] PATHOLOGY [id number] [place] [address], Hematocrit (Bld) [Volume fraction] 31.5 % Low 41.0-53.0 [facility] Comment on above: Performed By: #### C BC ####[facility] PATHOLOGY [id number] [place], Hemoglobin (Bld) [Mass/Vol] 10.4 g/dL Low 13.9-16.3 [facility] Comment on above: Performed By: #### C BC ####[facility] PATHOLOGY [id number] [place] [address], MCH (RBC) [Entitic mass] 31.1 pg Normal 26.0-34.0 [facility] Comment on above: Performed By: #### C BC ####[facility] PATHOLOGY [id number] [place] [address], MCHC (RBC) [Mass/Vol] 33.1 g/dL Normal 32.0-35.9 [facility] Comment on above: Performed By: #### C BC ####[facility] PATHOLOGY [id number] [place] [address], MCV (RBC) [Entitic vol] 94 fL Normal 80-100 [facility] Comment on above: Performed By: #### C BC ####[facility] PATHOLOGY [id number] [place] [address], Platelet mean volume (Bld) [Entitic vol] 11.0 fL Normal 7.5-11.2 [facility] Comment on above: Performed By: #### C BC ####[facility] PATHOLOGY [id number] [place] [address], Platelets (Bld) [#/Vol] 80 10*3/uL Low 150-400 [facility] Comment on above: Performed By: #### C BC ####[facility] PATHOLOGY [id number] [place], RBC (Bld) [#/Vol] 3.34 10*6/uL Low 4.50-5.90 [facility] Comment on above: Performed By: #### C BC ####[facility] PATHOLOGY [id number] [place], WBC (Bld) [#/Vol] 6.9 10*3/uL Normal 4.5-11.5 [facility] Comment on above: Performed By: #### C BC ####[facility] PATHOLOG[facility] [id number] [place], CREATINE KINASEon 02-08-2021 CK [Catalytic activity/Vol] 1850 U/L High 57-374 [facility] Comment on above: Performed By: #### C H8, MG, CK ####[facility] PATH[facility] [id number] [place], CT CEREBRAL PERFUSION W/+W/O CONTRASTon 02-08-2021 CT CEREBRAL PERFUSION W/+W/O CONTRAST Normal [facility] Care Plan Noteon 02-08-2021 [employer] Authentication Interface Message Text Normal [facility] [employer] Authentication Interface Message Text Normal [facility] Consultson 02-08-2021 [employer]maker Gar[employer]itter Authentication Interface Message Text Normal [facility] [employer]itter Authentication Interface Message Text Normal [facility] [employer]itter Authentication Interface Message Text Normal [facility] [employer] Authentication Interface Message Text Normal [facility] FULL LIPID PROFILEon 021 Cholesterol [Mass/Vol] 139 mg/dL Normal <181 [facility] Comment on above: Performed By: #### H DL ####S PATHOLOGY [id number] [place], Cholesterol in LDL [Mass/Vol] 85 mg/dL Normal <111 [facility] Comment on above: Performed By: #### H DL ####[facility] PATHOLOGY [id number] [place], Cholesterol.total/Chol esterol in HDL [Mass ratio] 3.48 {ratio} Normal [facility] Comment on above: Performed By: #### H DL ####[facility] PATHOLOGY [id number] [place], HDL CHOL 40 mg/dL Low >44 [facility] Comment on above: Performed By: #### H DL ####[facility] PATHOLOGY [id number] [place], LDL/HDL 2.13 Normal <3.57 [facility] Comment on above: Performed By: #### H DL ####S PATHOLOGY [id number] [place], NON-HDL CHOLESTEROL 99 mg/dL Normal <130 [facility] Comment on above: Performed By: #### H DL ####S PATHOLOGY [id number] [place], Triglyceride [Mass/Vol] 108 mg/dL Normal <151 [facility] Comment on above: Performed By: #### H DL ####S PATHOLOGY [id number] [place], MAGNESIUMon 02-08-2021 Magnesium [Mass/Vol] 1.8 mg/dL Normal 1.6-2.8 [facility] Comment on above: Performed By: #### M G ####[facility] PATHOLOGY [id number] [place], Magnesium [Mass/Vol] 1.7 mg/dL Normal 1.6-2.8 [facility] Comment on above: Performed By: #### C H8, MG, CK ####[facility] PATHOLOGY [id number] [place], Procedureson 02-08-2021 [employer] Authentication Interface Message Text Normal [facility] [employer] Authentication Interface Message Text Normal [facility] [employer]itter Authentication Interface Message Text Normal [facility] Progress Noteson 02-08-2021 [employer]maker Gar[employer]itter Authentication Interface Message Text Normal [facility] [employer]maker [employer]itter Authentication Interface Message Text Normal [facility] [employer]maker [employer]itter Authentication Interface Message Text Normal [facility] [employer]maker [employer]itter Authentication Interface Message Text Normal [facility] [employer]maker Gar[employer] Fitter Authentication Interface Message Text Normal [facility] XR ABDOMEN APon 02-08-2021 XR ABDOMEN AP Normal [facility] XR CHEST AP OR PA 1 VIEWon 0 02-08-2021 XR CHEST AP OR PA 1 VIEW Normal [facility] XR CHEST AP OR PA 1 VIEW Normal [facility] 1:1 Interactionon 02-07-2021 [employer]maker Garment [employer]itter Authentication Interface Message Text Normal [facility] BASIC METABOLIC PANELon 01-29 Anion gap [Moles/Vol] 11 mmol/L Normal 5-13 [facility] Comment on above: Performed By: #### P HOS, CH8, CK, MG ####S PATHOLOGY [id number] [place], Calcium [Mass/Vol] 8.1 mg/dL Low 8.4-10.4 [facility] Comment on above: Performed By: #### P HOS, CH8, CK, MG ####S PATHOLOGY [id number] [place], Chloride [Moles/Vol] 119 mmol/L High 97-111 [facility] Comment on above: Performed By: #### P HOS, CH8, CK, MG ####S PATHOLOGY [id number] [place], CO2 [Moles/Vol] 21 mmol/L Normal 21-30 [facility] Comment on above: Performed By: #### P HOS, CH8, CK, MG ####S PATHOLOGY [id number] [place], Creatinine [Mass/Vol] 1.05 mg/dL Normal 0.80-1.30 [facility] Comment on above: Performed By: #### P HOS, CH8, CK, MG ####S PATHOLOGY [id number] [place], ESTIMATED GFR (CKD-EPI) 70 mL/min/1.73sqm Normal >=60 [facility] Comment on above: Performed By: #### P HOS, CH8, CK, MG ####S PATHOLOGY [id number] [place], Glucose [Mass/Vol] 98 mg/dL Normal 80-116 [facility] Comment on above: Performed By: #### P HOS, CH8, CK, MG ####[facility] PATH[facility] [id number] [place], Potassium [Moles/Vol] 4.0 mmol/L Normal 3.3-5.3 [facility] Comment on above: Performed By: #### P HOS, CH8, CK, MG ####S PATHOLOGY [id number] [place], Sodium [Moles/Vol] 147 mmol/L Normal 135-148 [facility] Comment on above: Performed By: #### P HOS, CH8, CK, MG ####[facility] PATHOLOGY [id number] [place], Urea nitrogen [Mass/Vol] 26 mg/dL High 8-22 [facility] Comment on above: Performed By: #### P HOS, CH8, CK, MG ####[facility] PATHOLOGY [id number] [place], BLOOD CULTUREon 02-07-2021 Bacteria identified Cx Nom (Bld) C BLOOD: No Growth Normal [facility] Comment on above: Order Comment: The r esults may be compromised due to inadequate volume of fluid received. A negative result does not rule out an infectious process. Performed By: #### C BLOOD ####[facility] P[address]emdpqd8161 [place], [place] BLOOD GAS, ARTERIALon 2020 CR MAYCOL -4.3 mmol/L Low -2.0-2.0 [facility] Comment on above: Performed By: #### C R BGA ####[facility] PATHOLOGY [id number] [place], CR PCO2 35.1 mm Hg Normal 35.0-45.0 [facility] Comment on above: Performed By: #### C R BGA ####S PATHOLOGY [id number] [place], CR PHA 7.371 Normal 7.35-7.45 [facility] Comment on above: Performed By: #### C R BGA ####[facility] PATHOLOGY [id number] [place], CR PO2 110 mm Hg High 80-100 mm Hg [facility] Comment on above: Performed By: #### C R BGA ####[facility] PATHOLOGY [id number] [place], FIO2 (CATEGORY) 40% Normal [facility] Comment on above: Performed By: #### C R BGA ####S PATHOLOGY [id number] [place], HCO3 (Bld) [Moles/Vol] 20 mmol/L Low 22-28 [facility] Comment on above: Performed By: #### C R BGA ####S PATHOLOGY [id number] [place], MODE Vent Normal [facility] Comment on above: Performed By: #### C R BGA ####S PATHOLOGY [id number] [place], Oxygen saturation in Blood 98.0 % Normal >=95.1 [facility] Comment on above: Performed By: #### C R BGA ####[facility] PATHOLOGY [id number] [place], CALCIUM, IONIZEDon CR ICA 1.17 mmol/L Normal 1.10-1.40 [facility] Comment on above: Performed By: #### C R ICA, LACT ####[facility] PATHOLOGY [id number] [place], COMPLETE BLOOD COUNTon 02-07 Erythrocyte distribution width (RBC) [Ratio] 14.7 % High 11.5-14.5 [facility] Comment on above: Performed By: #### C BC ####[facility] PATHOLOGY [id number] [place], Hematocrit (Bld) [Volume fraction] 33.4 % Low 41.0-53.0 [facility] Comment on above: Performed By: #### C BC ####[facility] PATHOLOGY [id number] [place], Hemoglobin (Bld) [Mass/Vol] 10.7 g/dL Low 13.9-16.3 [facility] Comment on above: Performed By: #### C BC ####S PATHOLOGY [id number] [place], MCH (RBC) [Entitic mass] 30.2 pg Normal 26.0-34.0 [facility] Comment on above: Performed By: #### C BC ####S PATHOLOGY [id number] [place], MCHC (RBC) [Mass/Vol] 32.0 g/dL Normal 32.0-35.9 [facility] Comment on above: Performed By: #### C BC ####S PATHOLOGY [id number] [place], MCV (RBC) [Entitic vol] 94 fL Normal 80-100 [facility] Comment on above: Performed By: #### C BC ####S PATHOLOGY [id number] [place], Platelet mean volume (Bld) [Entitic vol] 10.4 fL Normal 7.5-11.2 The [facility] Comment on above: Performed By: #### C BC ####[facility] PATHOLOGY [id number] [place], [place], Platelets (Bld) [#/Vol] 86 10*3/uL Low 150-400 [facility] Comment on above: Performed By: #### C BC ####[facility] PATHOLOGY [id number] [place], [place], RBC (Bld) [#/Vol] 3.54 10*6/uL Low 4.50-5.90 [facility] Comment on above: Performed By: #### C BC ####[facility] PATHOLOGY [id number] [place], [place], WBC (Bld) [#/Vol] 8.2 10*3/uL Normal 4.5-11.5 [facility] Comment on above: Performed By: #### C BC ####S PATHOLOGY [id number] [place], [place], Erythrocyte distribution width (RBC) [Ratio] 14.9 % High 11.5-14.5 [facility] Comment on above: Performed By: #### C BC ####[facility] [id number] [place], [place], Hematocrit (Bld) [Volume fraction] 34.6 % Low 41.0-53.0 [facility] Comment on above: Performed By: #### C BC ####[facility] PATHOLOGY [id number] [place], [place], Hemoglobin (Bld) [Mass/Vol] 11.5 g/dL Low 13.9-16.3 [facility] Comment on above: Performed By: #### C BC ####[facility] PATHOLOGY [id number] [place], [place], MCH (RBC) [Entitic mass] 31.8 pg Normal 26.0-34.0 [facility] Comment on above: Performed By: #### C BC ####[facility] PATHOLOGY [id number] [place], MCHC (RBC) [Mass/Vol] 33.2 g/dL Normal 32.0-35.9 [facility] Comment on above: Performed By: #### C BC ####[facility] PATHOLOGY [id number] [place], MCV (RBC) [Entitic vol] 96 fL Normal 80-100 [facility] Comment on above: Performed By: #### C BC ####[facility] PATHOLOGY [id number] [place], Platelet mean volume (Bld) [Entitic vol] 10.7 fL Normal 7.5-11.2 [facility] Comment on above: Performed By: #### C BC ####[facility] PATHOLOGY [id number] [place], Platelets (Bld) [#/Vol] 85 10*3/uL Low 150-400 [facility] Comment on above: Performed By: #### C BC ####[facility] PATHOLOGY [id number] [place], RBC (Bld) [#/Vol] 3.62 10*6/uL Low 4.50-5.90 [facility] Comment on above: Performed By: #### C BC ####[facility] PATHOLOGY [id number] [place], WBC (Bld) [#/Vol] 10.6 10*3/uL Normal 4.5-11.5 [facility] Comment on above: Performed By: #### C BC ####[facility] PATHOLOGY [id number] [place], CREATINE KINASEon 02-07-2021 CK [Catalytic activity/Vol] 1944 U/L High 57-374 [facility] Comment on above: Performed By: #### C K ####[facility] PATHOLOGY [id number] [place], CK [Catalytic activity/Vol] 1978 U/L High 57-374 [facility] Comment on above: Performed By: #### C K ####[facility] PATHOLOGY [id number] [place], CK [Catalytic activity/Vol] 2265 U/L High 57-374 [facility] Comment on above: Performed By: #### P HOS, CH8, CK, MG ####[facility] PATHOLOGY [id number] [place], [place], CK [Catalytic activity/Vol] 2537 U/L High 57-374 [facility] Comment on above: Performed By: #### C K ####[facility] PATHOLOGY [id number] [place], [place], Care Plan Noteon 02-07-2021 [employer] Authentication Interface Message Text Normal [facility] Consultson 02-07-2021 [employer] Authentication Interface Message Text Normal [facility] [employer] Authentication Interface Message Text Normal [facility] [employer] Authentication Interface Message Text Normal [facility] GLUCOSE, FINGERSTICK-IN OFFI CEon 02-07-2021 Glucose [Mass/Vol] 92 mg/dL Normal 80-116 [facility] Comment on above: Performed By: #### 8 [id number] ####NURSING GLUCOSE [id number] [place], [address] Glucose [Mass/Vol] 82 mg/dL Normal 80-116 [facility] Comment on above: Performed By: #### 8 2948 ####NURSING GLUCOSE [id number] [place], [address] Glucose [Mass/Vol] 89 mg/dL Normal 80-116 [facility] Comment on above: Performed By: #### 8 2948 ####NURSING GLUCOSE [id number] [place], [address] LACTIC ACIDon 02-07-2021 CR LACT 1.0 mmol/L Normal 0.5-2.0 [facility] Comment on above: Performed By: #### C R ICA, LACT ####S PATHOLOGY [id number] [place], MAGNESIUMon 02-07-2021 Magnesium [Mass/Vol] 2.0 mg/dL Normal 1.6-2.8 [facility] Comment on above: Performed By: #### P HOS, CH8, CK, MG ####S PATHOLOGY [id number] [place], NOVEL CORONAVIRUS (COVID-19) on 02-07-2021 SARS-CoV-2 (COVID-19) RNA RICK+probe Ql (Unsp spec) Not detected Normal Not Detected [facility] Comment on above: Order Comment: This test is intended for use only under Emergency Use Authorization (EUA). This test was developed, and its performance characteristics determined by [facility] which is certified under CLIA as qualified to perform high complexity clinical laboratory testing. Result Comment: This assay was performed using [employer] RTPCR technology. Performed By: #### C OVID19 ####S PATHOLOGY [id number] [place], [place], PHOSPHORUSon 02-07-2021 Phosphate [Mass/Vol] 2.5 mg/dL Normal 2.3-4.2 [facility] Comment on above: Performed By: #### P HOS, CH8, CK, MG ####[facility]Y [id number] [place], [place], Procedureson 02-07-2021 [employer] Authentication Interface Message Text Normal [facility] Progress Noteson 02-07-2021 [employer] Authentication Interface Message Text Normal [facility] [employer] Authentication Interface Message Text Normal [facility] [employer]itter Authentication Interface Message Text Normal [facility] [employer]maker [employer]itter Authentication Interface Message Text Normal [facility] [employer]itter Authentication Interface Message Text Normal [facility] TOXICOLOGY SCREEN, UNCONFIRM EDon 02-07-2021 [facility] Negative Normal Negative [facility] Comment on above: Order Comment: This toxicology screen provides unconfirmed analytical results suitable for clinical management. Results are reported as positive (at or above the cutoff) or negative (below the cutoff). Amphetamines 1000 ng/mL Barbiturates 200 ng/mL Methadone 300 ng/mL Opiates 300 ng/mL Oxycodone 100 ng/mL Fentanyl 1 ng/mL Hydrocodone 100 ng/mL Benzodiazepines 200 ng/mL Cocaine Metabolite 300 ng/mL PCP 25 ng/mL THC 50 ng/mL Norbuprenorphine 10 ng/mL Alcohol 10 mg/dLPositive qualitative result does not indicate or measure intoxication. For toxicology consultation please call the laboratory at [phone]. Performed By: #### T OX SC ####S PATHOLOGY [id number] [place], [address] BARBIT Negative Normal Negative [facility] Comment on above: Order Comment: This toxicology screen provides unconfirmed analytical results suitable for clinical management. Results are reported as positive (at or above the cutoff) or negative (below the cutoff). Amphetamines 1000 ng/mL Barbiturates 200 ng/mL Methadone 300 ng/mL Opiates 300 ng/mL Oxycodone 100 ng/mL Fentanyl 1 ng/mL Hydrocodone 100 ng/mL Benzodiazepines 200 ng/mL Cocaine Metabolite 300 ng/mL PCP 25 ng/mL THC 50 ng/mL Norbuprenorphine 10 ng/mL Alcohol 10 mg/dLPositive qualitative result does not indicate or measure intoxication. For toxicology consultation please call the laboratory at [phone]. Performed By: #### T OX SC ####S PATHOLOGY [id number] [place], [place], BENZO Positive Abnormal Negative [facility] Comment on above: Order Comment: This toxicology screen provides unconfirmed analytical results suitable for clinical management. Results are reported as positive (at or above the cutoff) or negative (below the cutoff). Amphetamines 1000 ng/mL Barbiturates 200 ng/mL Methadone 300 ng/mL Opiates 300 ng/mL Oxycodone 100 ng/mL Fentanyl 1 ng/mL Hydrocodone 100 ng/mL Benzodiazepines 200 ng/mL Cocaine Metabolite 300 ng/mL PCP 25 ng/mL THC 50 ng/mL Norbuprenorphine 10 ng/mL Alcohol 10 mg/dLPositive qualitative result does not indicate or measure intoxication. For toxicology consultation please call the laboratory at [phone]. Performed By: #### T OX SC ####[facility] PATHOLOGY [id number] [place], [place], COCAINE CL Negative Normal Negative [facility] Comment on above: Order Comment: This toxicology screen provides unconfirmed analytical results suitable for clinical management. Results are reported as positive (at or above the cutoff) or negative (below the cutoff). Amphetamines 1000 ng/mL Barbiturates 200 ng/mL Methadone 300 ng/mL Opiates 300 ng/mL Oxycodone 100 ng/mL Fentanyl 1 ng/mL Hydrocodone 100 ng/mL Benzodiazepines 200 ng/mL Cocaine Metabolite 300 ng/mL PCP 25 ng/mL THC 50 ng/mL Norbuprenorphine 10 ng/mL Alcohol 10 mg/dLPositive qualitative result does not indicate or measure intoxication. For toxicology consultation please call the laboratory at [phone]. Performed By: #### T OX SC ####[facility] PATHOLOGY [id number] [place], [place], Ethanol [Mass/Vol] Negative Normal Cutoff: 1 0 mg/dL [facility] Comment on above: Order Comment: This toxicology screen provides unconfirmed analytical results suitable for clinical management. Results are reported as positive (at or above the cutoff) or negative (below the cutoff). Amphetamines 1000 ng/mL Barbiturates 200 ng/mL Methadone 300 ng/mL Opiates 300 ng/mL Oxycodone 100 ng/mL Fentanyl 1 ng/mL Hydrocodone 100 ng/mL Benzodiazepines 200 ng/mL Cocaine Metabolite 300 ng/mL PCP 25 ng/mL THC 50 ng/mL Norbuprenorphine 10 ng/mL Alcohol 10 mg/dLPositive qualitative result does not indicate or measure intoxication. For toxicology consultation please call the laboratory at [phone]. Performed By: #### T OX SC ####[facility] PATHOLOGY [id number] [place], [place], FENTANYL Positive Abnormal Negative [facility] Comment on above: Order Comment: This toxicology screen provides unconfirmed analytical results suitable for clinical management. Results are reported as positive (at or above the cutoff) or negative (below the cutoff). Amphetamines 1000 ng/mL Barbiturates 200 ng/mL Methadone 300 ng/mL Opiates 300 ng/mL Oxycodone 100 ng/mL Fentanyl 1 ng/mL Hydrocodone 100 ng/mL Benzodiazepines 200 ng/mL Cocaine Metabolite 300 ng/mL PCP 25 ng/mL THC 50 ng/mL Norbuprenorphine 10 ng/mL Alcohol 10 mg/dLPositive qualitative result does not indicate or measure intoxication. For toxicology consultation please call the laboratory at [phone]. Performed By: #### T OX SC ####[facility] PATHOLOGY [id number] [place] [address], HYDROCODONE (PM) Negative Normal Negative [facility] Comment on above: Order Comment: This toxicology screen provides unconfirmed analytical results suitable for clinical management. Results are reported as positive (at or above the cutoff) or negative (below the cutoff). Amphetamines 1000 ng/mL Barbiturates 200 ng/mL Methadone 300 ng/mL Opiates 300 ng/mL Oxycodone 100 ng/mL Fentanyl 1 ng/mL Hydrocodone 100 ng/mL Benzodiazepines 200 ng/mL Cocaine Metabolite 300 ng/mL PCP 25 ng/mL THC 50 ng/mL Norbuprenorphine 10 ng/mL Alcohol 10 mg/dLPositive qualitative result does not indicate or measure intoxication. For toxicology consultation please call the laboratory at [phone]. Performed By: #### T OX SC ####[facility] PATHOLOGY [id number] [place] [address], Methadone Ql (U) Negative Normal Negative [facility] Comment on above: Order Comment: This toxicology screen provides unconfirmed analytical results suitable for clinical management. Results are reported as positive (at or above the cutoff) or negative (below the cutoff). Amphetamines 1000 ng/mL Barbiturates 200 ng/mL Methadone 300 ng/mL Opiates 300 ng/mL Oxycodone 100 ng/mL Fentanyl 1 ng/mL Hydrocodone 100 ng/mL Benzodiazepines 200 ng/mL Cocaine Metabolite 300 ng/mL PCP 25 ng/mL THC 50 ng/mL Norbuprenorphine 10 ng/mL Alcohol 10 mg/dLPositive qualitative result does not indicate or measure intoxication. For toxicology consultation please call the laboratory at [phone]. Performed By: #### T OX SC ####[facility] PATHOLOGY [id number] [place], [place], NORBUPRENORPHINE Negative Normal Cutoff: 10 ng/mL [facility] Comment on above: Order Comment: This toxicology screen provides unconfirmed analytical results suitable for clinical management. Results are reported as positive (at or above the cutoff) or negative (below the cutoff). Amphetamines 1000 ng/mL Barbiturates 200 ng/mL Methadone 300 ng/mL Opiates 300 ng/mL Oxycodone 100 ng/mL Fentanyl 1 ng/mL Hydrocodone 100 ng/mL Benzodiazepines 200 ng/mL Cocaine Metabolite 300 ng/mL PCP 25 ng/mL THC 50 ng/mL Norbuprenorphine 10 ng/mL Alcohol 10 mg/dLPositive qualitative result does not indicate or measure intoxication. For toxicology consultation please call the laboratory at [phone]. Performed By: #### T OX KS ####[facility] PATHOLOGY [id number] [place], OPIATE Negative Normal Negative [facility] Comment on above: Order Comment: This toxicology screen provides unconfirmed analytical results suitable for clinical management. Results are reported as positive (at or above the cutoff) or negative (below the cutoff). Amphetamines 1000 ng/mL Barbiturates 200 ng/mL Methadone 300 ng/mL Opiates 300 ng/mL Oxycodone 100 ng/mL Fentanyl 1 ng/mL Hydrocodone 100 ng/mL Benzodiazepines 200 ng/mL Cocaine Metabolite 300 ng/mL PCP 25 ng/mL THC 50 ng/mL Norbuprenorphine 10 ng/mL Alcohol 10 mg/dLPositive qualitative result does not indicate or measure intoxication. For toxicology consultation please call the laboratory at [phone]. Performed By: #### T OX SC ####[facility] PATHOLOGY [id number] [place], [place], OXYCODONE Positive Abnormal Cutoff: 100 [facility] Comment on above: Order Comment: This toxicology screen provides unconfirmed analytical results suitable for clinical management. Results are reported as positive (at or above the cutoff) or negative (below the cutoff). Amphetamines 1000 ng/mL Barbiturates 200 ng/mL Methadone 300 ng/mL Opiates 300 ng/mL Oxycodone 100 ng/mL Fentanyl 1 ng/mL Hydrocodone 100 ng/mL Benzodiazepines 200 ng/mL Cocaine Metabolite 300 ng/mL PCP 25 ng/mL THC 50 ng/mL Norbuprenorphine 10 ng/mL Alcohol 10 mg/dLPositive qualitative result does not indicate or measure intoxication. For toxicology consultation please call the laboratory at [phone]. Result Comment: Oxyc odone and metabolites of Oxycodone (Oxymorphone, Noroxycodone, and Noroxymorphone) are measured/detected in this assay method. Performed By: #### T OX SC ####S PATHOLOGY [id number] [place], PHENCYCL Negative Normal Negative [facility] Comment on above: Order Comment: This toxicology screen provides unconfirmed analytical results suitable for clinical management. Results are reported as positive (at or above the cutoff) or negative (below the cutoff). Amphetamines 1000 ng/mL Barbiturates 200 ng/mL Methadone 300 ng/mL Opiates 300 ng/mL Oxycodone 100 ng/mL Fentanyl 1 ng/mL Hydrocodone 100 ng/mL Benzodiazepines 200 ng/mL Cocaine Metabolite 300 ng/mL PCP 25 ng/mL THC 50 ng/mL Norbuprenorphine 10 ng/mL Alcohol 10 mg/dLPositive qualitative result does not indicate or measure intoxication. For toxicology consultation please call the laboratory at [phone]. Performed By: #### T OX SC ####S PATHOLOGY [id number] [place], [address] THC CL Negative Normal Negative [facility] Comment on above: Order Comment: This toxicology screen provides unconfirmed analytical results suitable for clinical management. Results are reported as positive (at or above the cutoff) or negative (below the cutoff). Amphetamines 1000 ng/mL Barbiturates 200 ng/mL Methadone 300 ng/mL Opiates 300 ng/mL Oxycodone 100 ng/mL Fentanyl 1 ng/mL Hydrocodone 100 ng/mL Benzodiazepines 200 ng/mL Cocaine Metabolite 300 ng/mL PCP 25 ng/mL THC 50 ng/mL Norbuprenorphine 10 ng/mL Alcohol 10 mg/dLPositive qualitative result does not indicate or measure intoxication. For toxicology consultation please call the laboratory at [phone]. Performed By: #### T OX SC ####[facility] [id number] [place], [place], AMPH Negative Normal Negative [facility] Comment on above: Order Comment: This toxicology screen provides unconfirmed analytical results suitable for clinical management. Results are reported as positive (at or above the cutoff) or negative (below the cutoff). Amphetamines 1000 ng/mL Barbiturates 200 ng/mL Methadone 300 ng/mL Opiates 300 ng/mL Oxycodone 100 ng/mL Fentanyl 1 ng/mL Hydrocodone 100 ng/mL Benzodiazepines 200 ng/mL Cocaine Metabolite 300 ng/mL PCP 25 ng/mL THC 50 ng/mL Norbuprenorphine 10 ng/mL Alcohol 10 mg/dLPositive qualitative result does not indicate or measure intoxication. For toxicology consultation please call the laboratory at [phone]. Performed By: #### T OX KS ####[facility] PATHOLOGY [id number] [place], BARBIT Negative Normal Negative [facility] Comment on above: Order Comment: This toxicology screen provides unconfirmed analytical results suitable for clinical management. Results are reported as positive (at or above the cutoff) or negative (below the cutoff). Amphetamines 1000 ng/mL Barbiturates 200 ng/mL Methadone 300 ng/mL Opiates 300 ng/mL Oxycodone 100 ng/mL Fentanyl 1 ng/mL Hydrocodone 100 ng/mL Benzodiazepines 200 ng/mL Cocaine Metabolite 300 ng/mL PCP 25 ng/mL THC 50 ng/mL Norbuprenorphine 10 ng/mL Alcohol 10 mg/dLPositive qualitative result does not indicate or measure intoxication. For toxicology consultation please call the laboratory at [phone]. Performed By: #### T OX KS ####[facility] PATHOLOGY [id number] [place], BENZO Positive Abnormal Negative [facility] Comment on above: Order Comment: This toxicology screen provides unconfirmed analytical results suitable for clinical management. Results are reported as positive (at or above the cutoff) or negative (below the cutoff). Amphetamines 1000 ng/mL Barbiturates 200 ng/mL Methadone 300 ng/mL Opiates 300 ng/mL Oxycodone 100 ng/mL Fentanyl 1 ng/mL Hydrocodone 100 ng/mL Benzodiazepines 200 ng/mL Cocaine Metabolite 300 ng/mL PCP 25 ng/mL THC 50 ng/mL Norbuprenorphine 10 ng/mL Alcohol 10 mg/dLPositive qualitative result does not indicate or measure intoxication. For toxicology consultation please call the laboratory at [phone]. Performed By: #### T OX SC ####[facility] PATHOLOGY [id number] [place], COCAINE CL Negative Normal Negative [facility] Comment on above: Order Comment: This toxicology screen provides unconfirmed analytical results suitable for clinical management. Results are reported as positive (at or above the cutoff) or negative (below the cutoff). Amphetamines 1000 ng/mL Barbiturates 200 ng/mL Methadone 300 ng/mL Opiates 300 ng/mL Oxycodone 100 ng/mL Fentanyl 1 ng/mL Hydrocodone 100 ng/mL Benzodiazepines 200 ng/mL Cocaine Metabolite 300 ng/mL PCP 25 ng/mL THC 50 ng/mL Norbuprenorphine 10 ng/mL Alcohol 10 mg/dLPositive qualitative result does not indicate or measure intoxication. For toxicology consultation please call the laboratory at [phone]. Performed By: #### T OX SC ####[facility] PATHOLOGY [id number] [place], Ethanol [Mass/Vol] Negative Normal Cutoff: 1 0 mg/dL [facility] Comment on above: Order Comment: This toxicology screen provides unconfirmed analytical results suitable for clinical management. Results are reported as positive (at or above the cutoff) or negative (below the cutoff). Amphetamines 1000 ng/mL Barbiturates 200 ng/mL Methadone 300 ng/mL Opiates 300 ng/mL Oxycodone 100 ng/mL Fentanyl 1 ng/mL Hydrocodone 100 ng/mL Benzodiazepines 200 ng/mL Cocaine Metabolite 300 ng/mL PCP 25 ng/mL THC 50 ng/mL Norbuprenorphine 10 ng/mL Alcohol 10 mg/dLPositive qualitative result does not indicate or measure intoxication. For toxicology consultation please call the laboratory at [phone]. Performed By: #### T OX SC ####[facility] PATHOLOGY [id number] [place], FENTANYL Positive Abnormal Negative [facility] Comment on above: Order Comment: This toxicology screen provides unconfirmed analytical results suitable for clinical management. Results are reported as positive (at or above the cutoff) or negative (below the cutoff). Amphetamines 1000 ng/mL Barbiturates 200 ng/mL Methadone 300 ng/mL Opiates 300 ng/mL Oxycodone 100 ng/mL Fentanyl 1 ng/mL Hydrocodone 100 ng/mL Benzodiazepines 200 ng/mL Cocaine Metabolite 300 ng/mL PCP 25 ng/mL THC 50 ng/mL Norbuprenorphine 10 ng/mL Alcohol 10 mg/dLPositive qualitative result does not indicate or measure intoxication. For toxicology consultation please call the laboratory at [phone]. Performed By: #### T OX KS ####[facility] PATHOLOGY [id number] [place] [address], HYDROCODONE (PM) Negative Normal Negative [facility] Comment on above: Order Comment: This toxicology screen provides unconfirmed analytical results suitable for clinical management. Results are reported as positive (at or above the cutoff) or negative (below the cutoff). Amphetamines 1000 ng/mL Barbiturates 200 ng/mL Methadone 300 ng/mL Opiates 300 ng/mL Oxycodone 100 ng/mL Fentanyl 1 ng/mL Hydrocodone 100 ng/mL Benzodiazepines 200 ng/mL Cocaine Metabolite 300 ng/mL PCP 25 ng/mL THC 50 ng/mL Norbuprenorphine 10 ng/mL Alcohol 10 mg/dLPositive qualitative result does not indicate or measure intoxication. For toxicology consultation please call the laboratory at [phone]. Performed By: #### T OX KS ####[facility] PATHOLOGY [id number] [place] [address], Methadone Ql (U) Negative Normal Negative [facility] Comment on above: Order Comment: This toxicology screen provides unconfirmed analytical results suitable for clinical management. Results are reported as positive (at or above the cutoff) or negative (below the cutoff). Amphetamines 1000 ng/mL Barbiturates 200 ng/mL Methadone 300 ng/mL Opiates 300 ng/mL Oxycodone 100 ng/mL Fentanyl 1 ng/mL Hydrocodone 100 ng/mL Benzodiazepines 200 ng/mL Cocaine Metabolite 300 ng/mL PCP 25 ng/mL THC 50 ng/mL Norbuprenorphine 10 ng/mL Alcohol 10 mg/dLPositive qualitative result does not indicate or measure intoxication. For toxicology consultation please call the laboratory at [phone]. Performed By: #### T OX SC ####[facility] PATHOLOGY [id number] [place], NORBUPRENORPHINE Negative Normal Cutoff: 10 ng/mL [facility] Comment on above: Order Comment: This toxicology screen provides unconfirmed analytical results suitable for clinical management. Results are reported as positive (at or above the cutoff) or negative (below the cutoff). Amphetamines 1000 ng/mL Barbiturates 200 ng/mL Methadone 300 ng/mL Opiates 300 ng/mL Oxycodone 100 ng/mL Fentanyl 1 ng/mL Hydrocodone 100 ng/mL Benzodiazepines 200 ng/mL Cocaine Metabolite 300 ng/mL PCP 25 ng/mL THC 50 ng/mL Norbuprenorphine 10 ng/mL Alcohol 10 mg/dLPositive qualitative result does not indicate or measure intoxication. For toxicology consultation please call the laboratory at [phone]. Performed By: #### T OX KS ####[facility] PATHOLOGY [id number] [place], [place], OPIATE Negative Normal Negative [facility] Comment on above: Order Comment: This toxicology screen provides unconfirmed analytical results suitable for clinical management. Results are reported as positive (at or above the cutoff) or negative (below the cutoff). Amphetamines 1000 ng/mL Barbiturates 200 ng/mL Methadone 300 ng/mL Opiates 300 ng/mL Oxycodone 100 ng/mL Fentanyl 1 ng/mL Hydrocodone 100 ng/mL Benzodiazepines 200 ng/mL Cocaine Metabolite 300 ng/mL PCP 25 ng/mL THC 50 ng/mL Norbuprenorphine 10 ng/mL Alcohol 10 mg/dLPositive qualitative result does not indicate or measure intoxication. For toxicology consultation please call the laboratory at [phone]. Performed By: #### T OX SC ####[facility] PATHOLOGY [id number] [place], [place], OXYCODONE Positive Abnormal Cutoff: 100 [facility] Comment on above: Order Comment: This toxicology screen provides unconfirmed analytical results suitable for clinical management. Results are reported as positive (at or above the cutoff) or negative (below the cutoff). Amphetamines 1000 ng/mL Barbiturates 200 ng/mL Methadone 300 ng/mL Opiates 300 ng/mL Oxycodone 100 ng/mL Fentanyl 1 ng/mL Hydrocodone 100 ng/mL Benzodiazepines 200 ng/mL Cocaine Metabolite 300 ng/mL PCP 25 ng/mL THC 50 ng/mL Norbuprenorphine 10 ng/mL Alcohol 10 mg/dLPositive qualitative result does not indicate or measure intoxication. For toxicology consultation please call the laboratory at [phone]. Result Comment: Oxyc odone and metabolites of Oxycodone (Oxymorphone, Noroxycodone, and Noroxymorphone) are measured/detected in this assay method. Performed By: #### T OX SC ####[facility] PATHOLOGY [id number] [place] [address], PHENCYCL Negative Normal Negative [facility] Comment on above: Order Comment: This toxicology screen provides unconfirmed analytical results suitable for clinical management. Results are reported as positive (at or above the cutoff) or negative (below the cutoff). Amphetamines 1000 ng/mL Barbiturates 200 ng/mL Methadone 300 ng/mL Opiates 300 ng/mL Oxycodone 100 ng/mL Fentanyl 1 ng/mL Hydrocodone 100 ng/mL Benzodiazepines 200 ng/mL Cocaine Metabolite 300 ng/mL PCP 25 ng/mL THC 50 ng/mL Norbuprenorphine 10 ng/mL Alcohol 10 mg/dLPositive qualitative result does not indicate or measure intoxication. For toxicology consultation please call the laboratory at [phone]. Performed By: #### T OX SC ####[facility] PATHOLOGY [id number] [place] [address], THC CL Negative Normal Negative [facility] Comment on above: Order Comment: This toxicology screen provides unconfirmed analytical results suitable for clinical management. Results are reported as positive (at or above the cutoff) or negative (below the cutoff). Amphetamines 1000 ng/mL Barbiturates 200 ng/mL Methadone 300 ng/mL Opiates 300 ng/mL Oxycodone 100 ng/mL Fentanyl 1 ng/mL Hydrocodone 100 ng/mL Benzodiazepines 200 ng/mL Cocaine Metabolite 300 ng/mL PCP 25 ng/mL THC 50 ng/mL Norbuprenorphine 10 ng/mL Alcohol 10 mg/dLPositive qualitative result does not indicate or measure intoxication. For toxicology consultation please call the laboratory at [phone]. Performed By: #### T OX SC ####[facility] PATHOLOGY [id number] [place], [place], URINALYSISon 02-07-2021 Glucose Ql (U) Negative Normal Negative [facility] Comment on above: Order Comment: A neg ative leukocyte esterase AND negative nitrite test or absence of pyuria (urine WBC count <= 5-10) make a UTI (urinary tract infection) very unlikely in a non-neutropenic adult (<=5% likelihood in many studies). A positive leukocyte esterase, nitrite and/or pyuria is a nonspecific result. This can be seen in conditions other than a UTI e.g. asymptomatic bacteriuria, gynecologic infections, sexually transmitted infections, and noninfectious conditions (positive predictive value for UTI around 50%) Performed By: #### u rinalysis ####[facility] PATHOLOGY [id number] [place] [address], Protein (U) [Mass/Vol] 30 mg/dL Abnormal Negative [facility] Comment on above: Order Comment: A neg ative leukocyte esterase AND negative nitrite test or absence of pyuria (urine WBC count <= 5-10) make a UTI (urinary tract infection) very unlikely in a non-neutropenic adult (<=5% likelihood in many studies). A positive leukocyte esterase, nitrite and/or pyuria is a nonspecific result. This can be seen in conditions other than a UTI e.g. asymptomatic bacteriuria, gynecologic infections, sexually transmitted infections, and noninfectious conditions (positive predictive value for UTI around 50%) Performed By: #### u rinalysis ####[facility] PATHOLOGY [id number] [place] [address], SQUAMOUS EPITHELIAL 0-2 Normal 0-10 [facility] Comment on above: Order Comment: A neg ative leukocyte esterase AND negative nitrite test or absence of pyuria (urine WBC count <= 5-10) make a UTI (urinary tract infection) very unlikely in a non-neutropenic adult (<=5% likelihood in many studies). A positive leukocyte esterase, nitrite and/or pyuria is a nonspecific result. This can be seen in conditions other than a UTI e.g. asymptomatic bacteriuria, gynecologic infections, sexually transmitted infections, and noninfectious conditions (positive predictive value for UTI around 50%) Performed By: #### u rinalysis ####[facility] PATHOLOGY [id number] [place], [place], U APPEAR Hazy Normal Clear [facility] Comment on above: Order Comment: A neg ative leukocyte esterase AND negative nitrite test or absence of pyuria (urine WBC count <= 5-10) make a UTI (urinary tract infection) very unlikely in a non-neutropenic adult (<=5% likelihood in many studies). A positive leukocyte esterase, nitrite and/or pyuria is a nonspecific result. This can be seen in conditions other than a UTI e.g. asymptomatic bacteriuria, gynecologic infections, sexually transmitted infections, and noninfectious conditions (positive predictive value for UTI around 50%) Performed By: #### u rinalysis ####[facility] PATHOLOGY [id number] [place], [place], U BILI Negative Normal Negative [facility] Comment on above: Order Comment: A neg ative leukocyte esterase AND negative nitrite test or absence of pyuria (urine WBC count <= 5-10) make a UTI (urinary tract infection) very unlikely in a non-neutropenic adult (<=5% likelihood in many studies). A positive leukocyte esterase, nitrite and/or pyuria is a nonspecific result. This can be seen in conditions other than a UTI e.g. asymptomatic bacteriuria, gynecologic infections, sexually transmitted infections, and noninfectious conditions (positive predictive value for UTI around 50%) Performed By: #### u rinalysis ####S PATHOLOGY [id number] [place], [place], U BLOOD Moderate Abnormal Negative [facility] Comment on above: Order Comment: A neg ative leukocyte esterase AND negative nitrite test or absence of pyuria (urine WBC count <= 5-10) make a UTI (urinary tract infection) very unlikely in a non-neutropenic adult (<=5% likelihood in many studies). A positive leukocyte esterase, nitrite and/or pyuria is a nonspecific result. This can be seen in conditions other than a UTI e.g. asymptomatic bacteriuria, gynecologic infections, sexually transmitted infections, and noninfectious conditions (positive predictive value for UTI around 50%) Performed By: #### u rinalysis ####[facility]Y [id number] [place], [place], U COLOR Yellow Normal Yellow [facility] Comment on above: Order Comment: A neg ative leukocyte esterase AND negative nitrite test or absence of pyuria (urine WBC count <= 5-10) make a UTI (urinary tract infection) very unlikely in a non-neutropenic adult (<=5% likelihood in many studies). A positive leukocyte esterase, nitrite and/or pyuria is a nonspecific result. This can be seen in conditions other than a UTI e.g. asymptomatic bacteriuria, gynecologic infections, sexually transmitted infections, and noninfectious conditions (positive predictive value for UTI around 50%) Performed By: #### u rinalysis ####[facility] PATHOLOGY [id number] [place], [place], U KETONE Negative Normal Negative [facility] Comment on above: Order Comment: A neg ative leukocyte esterase AND negative nitrite test or absence of pyuria (urine WBC count <= 5-10) make a UTI (urinary tract infection) very unlikely in a non-neutropenic adult (<=5% likelihood in many studies). A positive leukocyte esterase, nitrite and/or pyuria is a nonspecific result. This can be seen in conditions other than a UTI e.g. asymptomatic bacteriuria, gynecologic infections, sexually transmitted infections, and noninfectious conditions (positive predictive value for UTI around 50%) Performed By: #### u rinalysis ####[facility] PATHOLOGY [id number] [place], U LEUK Negative Normal Negative [facility] Comment on above: Order Comment: A neg ative leukocyte esterase AND negative nitrite test or absence of pyuria (urine WBC count <= 5-10) make a UTI (urinary tract infection) very unlikely in a non-neutropenic adult (<=5% likelihood in many studies). A positive leukocyte esterase, nitrite and/or pyuria is a nonspecific result. This can be seen in conditions other than a UTI e.g. asymptomatic bacteriuria, gynecologic infections, sexually transmitted infections, and noninfectious conditions (positive predictive value for UTI around 50%) Performed By: #### u rinalysis ####[facility] PATHOLOGY [id number] [place], [place], U MUCOUS Present Normal [facility] Comment on above: Order Comment: A neg ative leukocyte esterase AND negative nitrite test or absence of pyuria (urine WBC count <= 5-10) make a UTI (urinary tract infection) very unlikely in a non-neutropenic adult (<=5% likelihood in many studies). A positive leukocyte esterase, nitrite and/or pyuria is a nonspecific result. This can be seen in conditions other than a UTI e.g. asymptomatic bacteriuria, gynecologic infections, sexually transmitted infections, and noninfectious conditions (positive predictive value for UTI around 50%) Performed By: #### u rinalysis ####S PATHOLOGY [id number] [place], [place], U NITRITE Negative Normal Negative [facility] Comment on above: Order Comment: A neg ative leukocyte esterase AND negative nitrite test or absence of pyuria (urine WBC count <= 5-10) make a UTI (urinary tract infection) very unlikely in a non-neutropenic adult (<=5% likelihood in many studies). A positive leukocyte esterase, nitrite and/or pyuria is a nonspecific result. This can be seen in conditions other than a UTI e.g. asymptomatic bacteriuria, gynecologic infections, sexually transmitted infections, and noninfectious conditions (positive predictive value for UTI around 50%) Performed By: #### u rinalysis ####S PATHOLOGY [id number] [place], [place], U PH 5.0 Normal 5.0-8.0 [facility] Comment on above: Order Comment: A neg ative leukocyte esterase AND negative nitrite test or absence of pyuria (urine WBC count <= 5-10) make a UTI (urinary tract infection) very unlikely in a non-neutropenic adult (<=5% likelihood in many studies). A positive leukocyte esterase, nitrite and/or pyuria is a nonspecific result. This can be seen in conditions other than a UTI e.g. asymptomatic bacteriuria, gynecologic infections, sexually transmitted infections, and noninfectious conditions (positive predictive value for UTI around 50%) Performed By: #### u rinalysis ####S PATHOLOGY [id number] [place], U RBC 31-100 Abnormal 0-2 [facility] Comment on above: Order Comment: A neg ative leukocyte esterase AND negative nitrite test or absence of pyuria (urine WBC count <= 5-10) make a UTI (urinary tract infection) very unlikely in a non-neutropenic adult (<=5% likelihood in many studies). A positive leukocyte esterase, nitrite and/or pyuria is a nonspecific result. This can be seen in conditions other than a UTI e.g. asymptomatic bacteriuria, gynecologic infections, sexually transmitted infections, and noninfectious conditions (positive predictive value for UTI around 50%) Performed By: #### u rinalysis ####S PATHOLOGY [id number] [place], [place], U SG 1.045 High 1.005-1.030 [facility] Comment on above: Order Comment: A neg ative leukocyte esterase AND negative nitrite test or absence of pyuria (urine WBC count <= 5-10) make a UTI (urinary tract infection) very unlikely in a non-neutropenic adult (<=5% likelihood in many studies). A positive leukocyte esterase, nitrite and/or pyuria is a nonspecific result. This can be seen in conditions other than a UTI e.g. asymptomatic bacteriuria, gynecologic infections, sexually transmitted infections, and noninfectious conditions (positive predictive value for UTI around 50%) Performed By: #### u rinalysis ####[facility] PATHOLOGY [id number] [place], [place] UROBILI Negative Normal 0.1 - 1.0 [facility] Comment on above: Order Comment: A neg ative leukocyte esterase AND negative nitrite test or absence of pyuria (urine WBC count <= 5-10) make a UTI (urinary tract infection) very unlikely in a non-neutropenic adult (<=5% likelihood in many studies). A positive leukocyte esterase, nitrite and/or pyuria is a nonspecific result. This can be seen in conditions other than a UTI e.g. asymptomatic bacteriuria, gynecologic infections, sexually transmitted infections, and noninfectious conditions (positive predictive value for UTI around 50%) Performed By: #### u rinalysis ####S PATHOLOGY [id number] [place], U WBC 3-5 Abnormal 0-2 [facility] Comment on above: Order Comment: A neg ative leukocyte esterase AND negative nitrite test or absence of pyuria (urine WBC count <= 5-10) make a UTI (urinary tract infection) very unlikely in a non-neutropenic adult (<=5% likelihood in many studies). A positive leukocyte esterase, nitrite and/or pyuria is a nonspecific result. This can be seen in conditions other than a UTI e.g. asymptomatic bacteriuria, gynecologic infections, sexually transmitted infections, and noninfectious conditions (positive predictive value for UTI around 50%) Performed By: #### u rinalysis ####[facility] [id number] [place], [place], URINE MYOGLOBINon 02-07-2021 U CARLA Negative Normal Negative [facility] Comment on above: Performed By: #### U CARLA ####[facility] PATHOLOGY [id number] [place], [place], XR ANKLE LEFTon 02-07-2021 XR ANKLE LEFT Normal [facility] XR ANKLE RIGHT 2 VIEWon 01-29 XR ANKLE RIGHT 2 VIEW Normal [facility] XR CHEST AP OR PA 1 VIEWon 0 02-07-2021 XR CHEST AP OR PA 1 VIEW Normal [facility] XR CHEST AP OR PA 1 VIEW Normal [facility] BASIC METABOLIC PANELon - Anion gap [Moles/Vol] 9 mmol/L Normal 5-13 [facility] Comment on above: Performed By: #### C H8, CK, MG, HEPATIC, PHOS ####[facility] [id number] [place], Calcium [Mass/Vol] 6.5 mg/dL Low 8.4-10.4 [facility] Comment on above: Performed By: #### C H8, CK, MG, HEPATIC, PHOS ####[facility] [id number] [place], Chloride [Moles/Vol] 113 mmol/L High 97-[address] [facility] Comment on above: Performed By: #### C H8, CK, MG, HEPATIC, PHOS ####[facility] [id number] [place], CO2 [Moles/Vol] 18 mmol/L Low 21-30 [facility] Comment on above: Performed By: #### C H8, CK, MG, HEPATIC, PHOS ####[facility] [id number] [place], Creatinine [Mass/Vol] 0.96 mg/dL Normal 0.80-1.30 [facility] Comment on above: Performed By: #### C H8, CK, MG, HEPATIC, PHOS ####[facility] [id number] [place], ESTIMATED GFR (CKD-EPI) 78 mL/min/1.73sqm Normal >=60 [facility] Comment on above: Performed By: #### C H8, CK, MG, HEPATIC, PHOS ####S PATHOLOGY [id number] [place], Glucose [Mass/Vol] 87 mg/dL Normal 80-116 [facility] Comment on above: Performed By: #### C H8, CK, MG, HEPATIC, PHOS ####[facility] [id number] [place], Potassium [Moles/Vol] 4.2 mmol/L Normal 3.3-5.3 [facility] Comment on above: Result Comment: Hemo lysis present Performed By: #### C H8, CK, MG, HEPATIC, PHOS ####[facility] [id number] [place], Sodium [Moles/Vol] 136 mmol/L Normal 135-148 [facility] Comment on above: Performed By: #### C H8, CK, MG, HEPATIC, PHOS ####[facility] [id number] [place], Urea nitrogen [Mass/Vol] 26 mg/dL High 8-22 [facility] Comment on above: Performed By: #### C H8, CK, MG, HEPATIC, PHOS ####[facility] [id number] [place], BLOOD GAS, ARTERIALon 2020 CR MAYCOL -4.6 mmol/L Low -2.0-2.0 [facility] Comment on above: Performed By: #### C R BGA ####[facility] PATHOLOGY [id number] [place], CR PCO2 37.3 mm Hg Normal 35.0-45.0 [facility] Comment on above: Performed By: #### C R BGA ####[facility] PATHOLOGY [id number] [place] [address], CR PHA 7.349 Low 7.35-7.45 [facility] Comment on above: Performed By: #### C R BGA ####[facility] PATHOLOGY [id number] [place], CR PO2 113 mm Hg High 80-100 mm Hg [facility] Comment on above: Performed By: #### C R BGA ####[facility] PATHOLOGY [id number] [place] [address], FIO2 (CATEGORY) 40% Normal [facility] Comment on above: Performed By: #### C R BGA ####[facility] PATHOLOGY [id number] [place], HCO3 (Bld) [Moles/Vol] 20 mmol/L Low 22-28 [facility] Comment on above: Performed By: #### C R BGA ####[facility] PATHOLOGY [id number] [place] [address], MODE Vent Normal [facility] Comment on above: Result Comment: 500 x 16 +5 Performed By: #### C R BGA ####[facility] PATHOLOGY [id number] [place], Oxygen saturation in Blood 98.2 % Normal >=95.1 [facility] Comment on above: Performed By: #### C R BGA ####[facility] PATHOLOGY [id number] [place], CBC WITH DIFFERENTIALon 06-0 Basophils (Bld) [#/Vol] 0.02 10*3/uL Normal 0.00-0.20 [facility] Comment on above: Performed By: #### C BCDSAT ####[facility] PATHOLOGY [id number] [place], Basophils/100 WBC (Bld) 0.2 % Normal <=1.9 [facility] Comment on above: Performed By: #### C BCDSAT ####[facility] PATHOLOGY [id number] [place], Eosinophils (Bld) [#/Vol] 0.00 10*3/uL Normal 0.00-0.70 [facility] Comment on above: Performed By: #### C BCDSAT ####[facility] PATHOLOGY [id number] [place], Eosinophils/100 WBC (Bld) 0.0 % Low 0.1-4.0 [facility] Comment on above: Performed By: #### C BCDSAT ####[facility] PATHOLOGY [id number] [place], Erythrocyte distribution width (RBC) [Ratio] 14.6 % High 11.5-14.5 [facility] Comment on above: Performed By: #### C BCDSAT ####[facility] PATHOLOGY [id number] [place], Hematocrit (Bld) [Volume fraction] 37.5 % Low 41.0-53.0 [facility] Comment on above: Performed By: #### C BCDSAT ####[facility] PATHOLOGY [id number] [place], Hemoglobin (Bld) [Mass/Vol] 12.2 g/dL Low 13.9-16.3 [facility] Comment on above: Performed By: #### C BCDSAT ####[facility] PATHOLOGY [id number] [place], Lymphocytes (Bld) [#/Vol] 1.55 10*3/uL Normal 1.00-4.80 [facility] Comment on above: Performed By: #### C BCDSAT ####[facility] PATHOLOGY [id number] [place], Lymphocytes/100 WBC (Bld) 12.9 % Low 24.0-44.0 [facility] Comment on above: Performed By: #### C BCDSAT ####[facility] PATHOLOGY [id number] [place], MCH (RBC) [Entitic mass] 30.6 pg Normal 26.0-34.0 [facility] Comment on above: Performed By: #### C SCOTTYDSAT ####[facility] PATHOLOGY [id number] [place], MCHC (RBC) [Mass/Vol] 32.5 g/dL Normal 32.0-35.9 [facility] Comment on above: Performed By: #### C BCDSAT ####[facility] PATHOLOGY [id number] [place], MCV (RBC) [Entitic vol] 94 fL Normal 80-100 [facility] Comment on above: Performed By: #### C ALEJANDROAT ####[facility] PATHOLOGY [id number] [place] [address], MONOCYTE DISTRIBUTION WIDTH 22 High <=20 [facility] Comment on above: Performed By: #### C SCOTTYDSAT ####[facility] PATHOLOGY [id number] [place], Monocytes (Bld) [#/Vol] 1.48 10*3/uL High 0.20-1.00 [facility] Comment on above: Performed By: #### C BCDSAT ####[facility] PATHOLOGY [id number] [place], Monocytes/100 WBC (Bld) 12.4 % High 2.0-11.0 [facility] Comment on above: Performed By: #### C BCDSAT ####[facility] PATHOLOGY [id number] [place], Neutrophils (Bld) [#/Vol] 8.92 10*3/uL High 1.50-8.00 [facility] Comment on above: Performed By: #### C BCDSAT ####[facility] PATHOLOGY [id number] [place], Neutrophils/100 WBC (Bld) 74.5 % Normal 31.0-76.0 [facility] Comment on above: Performed By: #### C BCDSAT ####[facility] PATHOLOGY [id number] [place], Platelet mean volume (Bld) [Entitic vol] 11.2 fL Normal 7.5-11.2 [facility] Comment on above: Performed By: #### C BCDSAT ####[facility] PATHOLOGY [id number] [place], Platelets (Bld) [#/Vol] 96 10*3/uL Low 150-400 [facility] Comment on above: Performed By: #### C SCOTTYDSAT ####[facility] PATHOLOGY [id number] [place] [address], RBC (Bld) [#/Vol] 3.98 10*6/uL Low 4.50-5.90 [facility] Comment on above: Performed By: #### C SCOTTYDSAT ####[facility] PATHOLOGY [id number] [place] [address], WBC (Bld) [#/Vol] 12.0 10*3/uL High 4.5-11.5 [facility] Comment on above: Performed By: #### C BCDSAT ####[facility] PATHOLOGY [id number] [place] [address], COMPLETE BLOOD COUNTon 02-06 Erythrocyte distribution width (RBC) [Ratio] 14.8 % High 11.5-14.5 [facility] Comment on above: Performed By: #### C BC ####[facility] PATHOLOGY [id number] [place], [place], Hematocrit (Bld) [Volume fraction] 36.9 % Low 41.0-53.0 [facility] Comment on above: Performed By: #### C BC ####S PATHOLOGY [id number] [place], Hemoglobin (Bld) [Mass/Vol] 12.0 g/dL Low 13.9-16.3 [facility] Comment on above: Performed By: #### C BC ####[facility] PATHOLOGY [id number] [place], [place], MCH (RBC) [Entitic mass] 30.5 pg Normal 26.0-34.0 [facility] Comment on above: Performed By: #### C BC ####[facility] PATHOLOGY [id number] [place], MCHC (RBC) [Mass/Vol] 32.4 g/dL Normal 32.0-35.9 [facility] Comment on above: Performed By: #### C BC ####[facility] PATHOLOGY [id number] [place], MCV (RBC) [Entitic vol] 94 fL Normal 80-100 [facility] Comment on above: Performed By: #### C BC ####[facility] PATHOLOGY [id number] [place], Platelet mean volume (Bld) [Entitic vol] 10.5 fL Normal 7.5-11.2 [facility] Comment on above: Performed By: #### C BC ####[facility] PATHOLOGY [id number] [place], Platelets (Bld) [#/Vol] 100 10*3/uL Low 150-400 [facility] Comment on above: Performed By: #### C BC ####[facility] PATHOLOGY [id number] [place], RBC (Bld) [#/Vol] 3.92 10*6/uL Low 4.50-5.90 [facility] Comment on above: Performed By: #### C BC ####[facility] PATHOLOGY [id number] [place], WBC (Bld) [#/Vol] 12.6 10*3/uL High 4.5-11.5 [facility] Comment on above: Performed By: #### C BC ####[facility] PATHOLOGY [id number] [place], CREATINE KINASEon 02-06-2021 CK [Catalytic activity/Vol] 1957 U/L High 57-374 [facility] Comment on above: Performed By: #### C H8, CK, MG, HEPATIC, PHOS ####[facility] [id number] [place], [place], CT C-SPINE W/O CONTRASTon CT C-SPINE W/O CONTRAST Normal [facility] CTA HEAD/NECK W/+W/O CONTRAS Ton 02-06-2021 CTA HEAD/NECK W/+W/O CONTRAST Normal [facility] Consultson 02-06-2021 [employer] Authentication Interface Message Text Normal [facility] ED Provider Noteson 02-07-20 [employer] Authentication Interface Message Text Normal [facility] ED Triage Noteson 02-06-2021 [employer] Authentication Interface Message Text 75M, found down, unresponsive Normal [facility] ETHANOL, SERUMon 02-06-2021 ETHANOL Normal None Detected [facility] Comment on above: Result Comment: Karyna sly hemolyzed, result is invalid.This is a corrected result. Previous result on 02/06/2021 at 1508 EDT was <5 mg/dL Performed By: #### E TOMAS ####[facility] PATH[facility]Y [id number] [place], GLUCOSE, FINGERSTICK-IN OFFI CEon 02-06-2021 Glucose [Mass/Vol] 97 mg/dL Normal 80-116 [facility] Comment on above: Performed By: #### 8 2948 ####NURSING GLUCOSE [id number] [place], [address] Glucose [Mass/Vol] 108 mg/dL Normal 80-116 [facility] Comment on above: Performed By: #### 8 2948 ####NURSING GLUCOSE [id number] [place], [address] H AND Martin 02-06-2021 [employer] Authentication Interface Message Text Normal [facility] HEPATIC FUNCTION PANELon Albumin [Mass/Vol] 2.4 g/dL Low 3.4-5.1 [facility] Comment on above: Performed By: #### C H8, CK, MG, HEPATIC, PHOS ####[facility] PATH[facility]Y [id number] [place], ALK 27 IU/L Low 40-200 [facility] Comment on above: Performed By: #### C H8, CK, MG, HEPATIC, PHOS ####[facility] PATHOLOGY [id number] [place], ALT [Catalytic activity/Vol] 20 U/L Normal 7-40 [facility] Comment on above: Performed By: #### C H8, CK, MG, HEPATIC, PHOS ####[facility] PATHOLOGY [id number] [place], AST [Catalytic activity/Vol] 48 U/L High 7-40 [facility] Comment on above: Result Comment: Hemo lysis present Performed By: #### C H8, CK, MG, HEPATIC, PHOS ####[facility] PATHOLOGY [id number] [place], Bilirubin [Mass/Vol] 1.3 mg/dL Normal 0.1-1.5 [facility] Comment on above: Performed By: #### C H8, CK, MG, HEPATIC, PHOS ####[facility] PATHOLOGY [id number] [place], Bilirubin.direct [Mass/Vol] 0.20 mg/dL Normal 0.10-0.30 [facility] Comment on above: Performed By: #### C H8, CK, MG, HEPATIC, PHOS ####[facility] PATHOLOGY [id number] [place], Protein [Mass/Vol] 3.8 g/dL Low 5.7-8.1 [facility] Comment on above: Performed By: #### C H8, CK, MG, HEPATIC, PHOS ####[facility] PATH[facility]Y [id number] [place], LACTIC ACIDon 02-06-2021 CR LACT 0.9 mmol/L Normal 0.5-2.0 [facility] Comment on above: Performed By: #### L ACT ####[facility] PATHOLOGY [id number] [place], CR LACT 2.8 mmol/L High 0.5-2.0 [facility] Comment on above: Performed By: #### L ACT ####[facility] PATHOLOGY [id number] [place], MAGNESIUMon 02-06-2021 Magnesium [Mass/Vol] 2.2 mg/dL Normal 1.6-2.8 [facility] Comment on above: Result Comment: Hemo lysis present Performed By: #### C H8, CK, MG, HEPATIC, PHOS ####[facility] PATHOLOGY [id number] [place], PARTIAL THROMBOPLASTIN TIMEo n 02-06-2021 aPTT Coag (Bld) [Time] 28 s Normal 25-37 [facility] Comment on above: Performed By: #### A PTT, PT ####[facility] PATHOLOGY [id number] [place], PHOSPHORUSon 02-06-2021 Phosphate [Mass/Vol] 2.4 mg/dL Normal 2.3-4.2 [facility] Comment on above: Performed By: #### C H8, CK, MG, HEPATIC, PHOS ####[facility] PATHOLOGY [id number] [place], PROTHROMBIN TIME AND INRon 0 02-06-2021 INR Coag (PPP) [Relative time] 1.27 {INR} High 0.90-1.10 [facility] Comment on above: Performed By: #### A PTT, PT ####S PATHOLOGY [id number] [place], PT Coag (PPP) [Time] 14.3 s High 9.7-12.9 [facility] Comment on above: Performed By: #### A PTT, PT ####[facility] PATHOLOGY [id number] [place], [place], Progress Noteson 02-06-2021 [employer] Authentication Interface Message Text Normal [facility] [employer] Authentication Interface Message Text Normal [facility] [employer] Authentication Interface Message Text Normal [facility] TROPONIN Ion 02-06-2021 TROP I 0.102 ng/mL Normal <0.120 [facility] Comment on above: Result Comment: Rang e <=0.04 ng/mL: NegativeInterpretation: Repeat testing in four to six hours if clinically indicated.Range 0.04-0.11 ng/mL: Suspected for acute myocardial injury.Interpretation: Serial measurements may be necessary to confirm or exclude the diagnosis of acute coronary syndrome. Repeat testing in four to six hours if clinically indicated.Range >=0.12 ng/mL: Results consistent with myocardial injury. Interpretation: Clinical and laboratory correlation recommended. Performed By: #### T ROP I ####[facility] PATHOLOGY [id number] [place], [place], TYPE AND SCREENon 02-06-2021 ABO and Rh group Nom (Bld) Blood group A Rh(D) positive Normal [facility] Comment on above: Performed By: #### T S ####[facility] PATHOLOGY [id number] [place], ABO and Rh group Nom (Bld) No Previous Results Normal [facility] Comment on above: Performed By: #### T S ####[facility] PATHOLOGY [id number] [place], [place], ABSC INT Negative Normal [facility] Comment on above: Performed By: #### T S ####[facility] PATHOLOGY [id number] [place], [place], XR ANKLE LEFTon 02-06-2021 XR ANKLE LEFT Normal [facility] XR ANKLE LEFT Normal [facility] XR ANKLE RIGHTon 02-06-2021 XR ANKLE RIGHT Normal [facility] XR CHEST AP OR PA 1 VIEWon 0 02-06-2021 XR CHEST AP OR PA 1 VIEW Normal [facility] XR KNEE LEFT AP+LATon 2020 XR KNEE LEFT AP+LAT Normal [facility] XR KNEE RIGHT AP+LATon 02-06 XR KNEE RIGHT AP+LAT Normal [facility] XR TIBIA LEFTon 02-06-2021 XR TIBIA LEFT Normal [facility] XR TIBIA RIGHTon 02-06-2021 XR TIBIA RIGHT Normal [facility] Dermatopathologyon Dermatopathology [facility] Dermatopathology [facility] [address] [place] [id number] DERMATOPATHOLOGY REPORT Name:CHOCO WHITE [facility]. Rec #. [id number] Location: [facility] Date of Procedure: 04/05/2020 Race: Date Received: 04/09/2020 /Sex: 1945 (Age: 74) / M Date Reported: 04/10/2020 Other: Submitting Physician:VICTORINA WILKS MD FINAL DIAGNOSIS SKIN, L CHEEK, BIOPSY: ACTINIC KERATOSIS WITH ADNEXAL INVOLVEMENT, PRESENT ON THE DEEP AND PERIPHERAL MARGIN. Electronically Signed Out by BROCK OTT M.D. Electronically Signed Out By BROCK OTT MD/[facility] By the signature on this report, the individual or group listed as making the Final Interpretation/Diagn osis certifies that they have reviewed this case. Clinical History: 1.0x0.8cm AK vs. SCC. Biopsy. Specimens Submitted As: A: SKIN, L CHEEK Gross Description: Received in formalin is a huang piece of skin measuring [id number]. The specimen is inked and embedded in toto. ink/04/09/2020 Microscopic Description: Microscopic analysis shows disordered keratinocyte proliferation with focal areas of parakeratosis and atrophy. Crowding of basal keratinocyte nuclei is present, and the atypia involves the lower one-third of the epidermis. The actinic keratosis lines adnexal epithelium, and the lesion may extend more deeply than apparent in these sections, via the adnexae. The dermis shows elastotic actinic damage. Normal [facility] Comment on above: Performed By: #### D #### Dermatopathology Encounters Encounter Date Encounter Type Care Provider Facility Start: 11-10-2022 End: 11-11-[address] KARTHIK IRELAND Facility:[facility] Start: 08-18-2022 End: 08-19-2022 ambulatory Lopez MCKINNEY Facility:[facility] Start: 07-08-2022 End: 07-09-[address] KARTHIK IRELAND Facility:[facility] Start: 02-19-2022 End: 02-20-[address] KARTHIK IRELAND Facility:[facility] Start: 08-08-2021 End: 08-08-2021 ambulatory UNKNOWN PROVIDER Facility:[facility] Start: 06-03-2021 End: 06-05-2021 ambulatory UNKNOWN PROVIDER Facility:[facility] Start: 05-21-2021 End: 05-21-2021 ambulatory DWAINE SANTOS Facility:[facility] Start: 04-29-2021 End: 04-30-2021 ambulatory UNKNOWN PROVIDER Facility:[facility] Start: 04-01-2021 End: 04-03-2021 ambulatory SELF PATIENT Facility:[facility] Start: 03-18-2021 End: 03-18-2021 ambulatory SELF PATIENT Facility:[facility] Start: 03-11-2021 End: 03-13-2021 ambulatory UNKNOWN PROVIDER Facility:[facility] Start: 02-19-2021 ambulatory UNKNOWN PROVIDER Facili ty:[facility] Start: 02-10-2021 ambulatory UNKNOWN PROVIDER Facili ty:[facility] Start: 02-08-2021 ambulatory [facility]ARI [facility] Start: 02-07-2021 [facility]ulatory [facility] Start: 02-06-2021 End: 03-01-2021 Evaluation and management of inpatient ASTRIT HAJDARI [facility] Start: 02-06-2021 End: 02-06-2021 ambulatory UNKNOWN PROVIDER Facility:[facility] Procedures Date Procedure Procedure Detail Performing Clinician Start: 07-08-[address] RADHA IRELAND Comment on above: Performed By: #### P SAD, FERR, FETIBC #### [facility] [address] [place] [address] Dr. Karen Marie Payers Date Payer Category Payer Medicaid [id number] 1958 Medicare [id number] 1945 Unknown [id number] .1.472238.3.579.2. 1945 Unknown [id number] .1.269799.3.579.2 1945 Unknown [id number] .1.461669.3.579.2. 1945 Unknown [id number] 2.16. 840.1.269325.3.579.2.732 1945 Unknown [id number] 2.16. 840.1.123954.3.579.2. 1945 Unknown [id number] 2.16. 840.1.363527.3.579.2.73 1945 Unknown [id number] 2.16. 840.1.353462.3.579.2. 1945 Unknown [id number] 2.16. 840.1.377010.3.579.2. 1945 Unknown [id number] 2.16 840.1.550758.3.579.2 1945 Unknown [id number] 2.16 840.1.248231.3.579.2 1945 Unknown [id number] 2.16 840.1.553640.3.579.2 1945 Unknown [id number] 2.16 840.1.470100.3.579.2. 1945 Unknown [id number] 2.16 840.1.932856.3.579.2 1945 Unknown [id number] 2.16 840.1.250655.3.579.2. 1945 Unknown [id number] 2.16 840.1.748121.3.579.2 1945 Unknown [id number] 2.16. 840.1.633204.3.579.2. 1945 Unknown [id number] 2.16. 840.1.505815.3.579.2 1945 Unknown [id number] 2.16. 840.1.757446.3.579.2. 1945 Unknown [id number] 2.16. 840.1.676070.3.579.2.732 1945 Unknown [id number] 2.16. 840.1.617614.3.579.2.732 1945 Unknown [id number] 2.16. 840.1.634658.3.579.2.732 1945 Unknown [id number] 2.16. 840.1.758915.3.579.2.73 1945 Unknown [id number] 2.16. 840.1.917186.3.579.2.73 1945 Unknown [id number] 2.16. 840.1.191271.3.579.2. 1945 Unknown [id number] 2.16. 840.1.483985.3.579.2. 1945 Unknown [id number] 2.16. 840.1.780918.3.579.2. 1945 Unknown [id number] 2.16. 840.1.883996.3.579.2.73 1945 Unknown [id number] 2.16. 840.1.839704.3.579.2. 1945 Unknown [id number] 2.16. 840.1.569495.3.579.2.73 1945 Unknown [id number] 2.16. 840.1.844754.3.579.2. 1945 Unknown [id number] 2.16. 840.1.762383.3.579.2.73 1945 Unknown [id number] 2.16. 840.1.146436.3.579.2. 1945 Unknown [id number] 2.16. 840.1.663317.3.579.2.73 1945 Unknown [id number] 2.16. 840.1.272818.3.579.2.736 Unknown [id number] 2.16. 840.1.426429.3.579.2.732 1945 Unknown [id number] 2.16. 840.1.381672.3.579.2.732 1945 Unknown [id number] 2.16. 840.1.403217.3.579.2.732 1945 Unknown [id number] 2.16. 840.1.549017.3.579.2.732 1945 Unknown [id number] 2.16. 840.1.586785.3.579.2.732 1945 Unknown [id number] 2.16. 840.1.735273.3.579.2.732 1945 Unknown [id number] 2.16. 840.1.121853.3.579.2.732 1945 Unknown [id number] 2.16.8 40.1.907659.3.579.2.727 1945 Unknown [id number] 2.16.84 0.1.259095.3.579.2.593 1945 Unknown [id number] 2.16.84 0.1.044857.3.579.2.593 1945 Unknown [id number] 2.16.84 0.1.142651.3.579.2.593 Discharge summary note 02-28-2021 Note Date & Type Note Facility 02-28-2021 Note [facility] Clinical Note 02-07-2021 Note Date & Type Note Facility 02-07-2021 Note Problem: Restraint: Goal: Remain safe while in restraints and once discontinued Outcome: Progressing Restraints needed to maintain safety/airway [facility] Summary Purpose Family History No Family History Records FoundNo Family History Records FoundNo Family History Records FoundNo Family History Records FoundNo Family History Records FoundNo Family History Records Found Advance Directives No Advanced Directives Records FoundNo Advanced Directives Records FoundNo Advanced Directives Records FoundNo Advanced Directives Records FoundNo Advanced Directives Records FoundNo Advanced Directives Records Found Additional Source Comments (unrecognized sect ion and content) No Status Records FoundNo Status Records FoundNo Status Records FoundNo Status Records FoundNo Status Records FoundNo Status Records Found INFORMATION SOURCE (unrecogn ized section and content) DATE CREATED AUTHOR 04/11/2020 [facility] DATE CREATED AUTHOR AUTHOR'S ORGANIZ ATION 09/23/2021 [facility] DATE CREATED AUTHOR AUTHOR'S ORGANIZ ATION 10/07/2021 [facility] DATE CREATED AUTHOR AUTHOR'S ORGANIZ ATION 10/18/2021 [facility] Special[facility] DATE CREATED AUTHOR AUTHOR'S ORGANIZ ATION 08/22/2022 [facility] DATE CREATED AUTHOR AUTHOR'S ORGANIZ ATION 11/17/2022 [facility] FOR RECORDS PERTAINING TO PATIENTS WHO ARE OR HAVE BEEN ENROLLED IN A CHEMICAL DEPENDENCY/SUBSTANCEABUSE PROGRAM, SOME INFORMATION MAY BE OMITTED. This clinical summary was aggregated from multiple sources. Caution should be exercised in using it in the provision of clinical care. This summary normalizes information from multiple sources, and as a consequence, information in this document may materially change the coding, format and clinical context of patient data. In addition, data may be omitted in some cases. CLINICAL DECISIONS SHOULD BE BASED ON THE PRIMARY CLINICAL RECORDS. [facility] [employer] [facility]. provides no warranty or guarantee of the accuracy or completeness of information in this document.
[2023-09-07 13:04] LABS: Basophils Percent Auto 0.6 % (0.2-2.0); Eosinophils Absolute Auto 0.1 10^3/uL (0.0-0.7); Hematocrit 43.4 % (42.0-54.0); Hemoglobin 13.6 g/dL (14.0-18.0); Immature Granulocytes Abs Auto 0.01 10^3/uL (0.00-0.03); Immature Granulocytes Pct Auto 0.2 % (0.0-0.5); Lymphocytes Absolute Auto 1.5 10^3/uL (1.2-3.8); Lymphocytes Percent Auto 28.4 % (20.5-60.0); Mean Corpuscular HGB Conc 31.3 g/dL (29.9-35.2); Mean Corpuscular Volume 92.5 fL (80.0-94.0); Mean Platelet Volume 12.1 fL (9.5-13.5); Monocytes Absolute Auto 0.7 10^3/uL (0.3-0.8); Monocytes Percent Auto 12.4 % (1.7-12.0); Neutrophils Absolute Auto 3.1 10^3/uL (1.4-6.5); Neutrophils Percent Auto 56.4 % (43.0-75.0); Platelet Count 131 10^3/uL (150-450); Red Blood Count 4.69 10^6/uL (4.70-6.10); Red Cell Distribution Width 14.9 % (11.0-15.0); White Blood Count 5.4 10^3/uL (4.0-11.0)
[2023-09-07 14:56] LABS: Prostate Specific Antigen Dx 6.71 ng/mL (<=4.00)
[2023-09-07 15:35] LABS: Alanine Aminotransferase 19 U/L (16-63); Albumin Level 3.6 g/dL (3.4-5.0); Alkaline Phosphatase 69 U/L (46-116); Anion Gap 10.2; Aspartate Amino Transferase 14 U/L (15-37); BUN Creatinine Ratio 11.1; Bilirubin Total 0.7 mg/dL (0.2-1.0); Calcium 9.4 mg/dL (8.5-10.1); Carbon Dioxide 30.9 mmol/L (21.0-32.0); Chloride 100 mmol/L (98-107); Chol HDL Ratio 2.4; Cholesterol 114 mg/dL (<=200); Estimated GFR (African America 54 (>=60); Estimated GFR (Non-African Ame 44 (>=60); Globulin 3.5 g/dL; Glucose 110 mg/dL (74-106); HDL Cholesterol 47 mg/dL (40-60); LDL Cholesterol Calculated 54.8 mg/dL; Potassium 4.1 mmol/L (3.5-5.1); Sodium 137 mmol/L (136-145); Total Protein 7.1 g/dL (6.4-8.2); Triglycerides 61 mg/dL (<=150); Uric Acid 8.8 mg/dL (3.5-7.2); VLDL CHOLESTEROL 12.2 mg/dL
== END 2023-09-07 12:21 | disposition home or self-care (01) ==
PROVIDERS: PCP Internal Medicine; Visit Provider Nurse Practitioner Adult Health
DX: I12.9 Hypertensive chronic kidney disease with stage 1 through stage 4 chronic kidney disease, or unspecified chronic kidney disease (principal); N18.31 Chronic kidney disease, stage 3a; Z51.81 Encounter for therapeutic drug level monitoring; R97.20 Elevated prostate specific antigen [PSA]; E79.0 Hyperuricemia without signs of inflammatory arthritis and tophaceous disease; E78.2 Mixed hyperlipidemia
CPT/HCPCS: 36415; 80053; 80061; 84153; 84550; 85025

== ENCOUNTER 2023-12-28 12:47 | Outpatient (OUT) | payer MEDICARE, MEDICAID, SELFPAY ==
[2023-12-28 14:29] LABS: Alanine Aminotransferase 19 U/L (16-63); Albumin Globulin Ratio 0.9; Albumin Level 3.2 g/dL (3.4-5.0); Alkaline Phosphatase 73 U/L (46-116); Anion Gap 9.3; Aspartate Amino Transferase 19 U/L (15-37); BUN Creatinine Ratio 11.9; Bilirubin Total 0.5 mg/dL (0.2-1.0); Calcium 9.6 mg/dL (8.5-10.1); Carbon Dioxide 30.5 mmol/L (21.0-32.0); Chloride 104 mmol/L (98-107); Estimated GFR (African America 58 (>=60); Estimated GFR (Non-African Ame 48 (>=60); Globulin 3.5 g/dL; Glucose 132 mg/dL (74-106); Potassium 3.8 mmol/L (3.5-5.1); Sodium 140 mmol/L (136-145); Total Protein 6.7 g/dL (6.4-8.2)
== END 2023-12-28 12:48 | disposition home or self-care (01) ==
LOC: LAB 12:49
PROVIDERS: PCP Internal Medicine; Visit Provider Nurse Practitioner Adult Health
DX: I10 Essential (primary) hypertension (principal)
CPT/HCPCS: 36415; 80053

== ENCOUNTER 2024-03-29 12:51 | Outpatient (OUT) | payer MEDICARE, MEDICAID, SELFPAY ==
[2024-03-29 13:34] LABS: Basophils Percent Auto 0.5 % (0.2-2.0); Eosinophils Absolute Auto 0.2 10^3/uL (0.0-0.7); Hematocrit 42.7 % (42.0-54.0); Hemoglobin 13.6 g/dL (14.0-18.0); Immature Granulocytes Abs Auto 0.01 10^3/uL (0.00-0.03); Immature Granulocytes Pct Auto 0.2 % (0.0-0.5); Lymphocytes Absolute Auto 1.5 10^3/uL (1.2-3.8); Lymphocytes Percent Auto 22.7 % (20.5-60.0); Mean Corpuscular HGB Conc 31.9 g/dL (29.9-35.2); Mean Corpuscular Hemoglobin 29.9 pg (25.9-34.0); Mean Corpuscular Volume 93.8 fL (80.0-94.0); Mean Platelet Volume 12.2 fL (9.5-13.5); Monocytes Absolute Auto 0.7 10^3/uL (0.3-0.8); Neutrophils Percent Auto 62.6 % (43.0-75.0); Platelet Count 124 10^3/uL (150-450); Red Blood Count 4.55 10^6/uL (4.70-6.10); Red Cell Distribution Width 15.8 % (11.0-15.0); White Blood Count 6.4 10^3/uL (4.0-11.0)
[2024-03-29 13:46] LABS: Creatinine Urine Random 124.27 mg/dL (20.00-300.00); Microalbum Creatinine Ratio Ur 11.2 mg/g (0.0-29.9); Microalbumin Urine Random 1.4 mg/dL (<=30.0)
[2024-03-29 14:22] LABS: Alanine Aminotransferase 20 U/L (16-63); Albumin Globulin Ratio 1.1; Albumin Level 3.3 g/dL (3.4-5.0); Alkaline Phosphatase 57 U/L (46-116); Anion Gap 6.7; Aspartate Amino Transferase 14 U/L (15-37); BUN Creatinine Ratio 13.8; Bilirubin Total 0.7 mg/dL (0.2-1.0); Carbon Dioxide 33.2 mmol/L (21.0-32.0); Chloride 103 mmol/L (98-107); Chol HDL Ratio 2.2; Cholesterol 114 mg/dL (<=200); Estimated GFR (African America >60 (>=60); Estimated GFR (Non-African Ame 50 (>=60); Free T3 2.42 pg/mL (2.18-3.98); Globulin 3.1 g/dL; Glucose 102 mg/dL (74-106); HDL Cholesterol 52 mg/dL (40-60); LDL Cholesterol Calculated 51.4 mg/dL; Potassium 3.9 mmol/L (3.5-5.1); Sodium 139 mmol/L (136-145); Thyroid Stimulating Hormone 2.863 uIU/mL (0.358-3.740); Total Protein 6.4 g/dL (6.4-8.2); Triglycerides 53 mg/dL (<=150); VLDL CHOLESTEROL 10.6 mg/dL
== END 2024-03-29 12:52 | disposition home or self-care (01) ==
LOC: LAB 12:53
PROVIDERS: PCP Internal Medicine; Visit Provider Internal Medicine
DX: G89.4 Chronic pain syndrome (principal); D68.59 Other primary thrombophilia; N18.31 Chronic kidney disease, stage 3a; E78.2 Mixed hyperlipidemia; R97.20 Elevated prostate specific antigen [PSA]; F33.9 Major depressive disorder, recurrent, unspecified; I73.9 Peripheral vascular disease, unspecified; G62.89 Other specified polyneuropathies; J44.9 Chronic obstructive pulmonary disease, unspecified; I50.42 Chronic combined systolic (congestive) and diastolic (congestive) heart failure; I25.10 Atherosclerotic heart disease of native coronary artery without angina pectoris; I48.0 Paroxysmal atrial fibrillation; M53.3 Sacrococcygeal disorders, not elsewhere classified; M47.817 Spondylosis without myelopathy or radiculopathy, lumbosacral region
CPT/HCPCS: 36415; 80053; 80061; 82043; 82306; 82570; 84439; 84443; 84481; 85025; G0103

== ENCOUNTER 2024-04-16 18:41 | Inpatient (IN) | payer MEDICARE, MEDICAID, SELFPAY ==
[2024-04-16] VITALS (12 sets, daily range): BP systolic 94–128; BP diastolic 63–88; PULSE 74–103; TEMP 36.8; O2SAT 93–96; BMI 27.5
--- OUTSIDE RECORDS SUMMARY | 2024-04-16 19:00 | XMS_ITS | CCD ---
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 Name Role Phone PROVIDER, UNKNOWN Attending Unavailable [...] SURGERY NEURO Consulting Unavai lable REQUEST, IP CHAIN SALES CONSULTANT SERVICE Consul ting Unavailable CONSULT, IP CARDIOLOGY ELECTROPHYSIOLOGY (EP) Co nsulting Unavailable REQUEST, IP TENTER SERVICE Consulting Unavaila ble CONSULT, IP DENTISTRY ADULT Consulting Unav ailable HAJDARI, ASTRIT Referring Unavailable SEGOVIA, NIMITT Admitting Unavailable PROVIDER, UNKNOWN Attending Unavailable PROVIDER, UNKNOWN Attending Unavailable PROVIDER, UNKNOWN Admitting Unavailable PATIENT, SELF Referring Unavailable PROVIDER, UNKNOWN Attending Unavailable PROVIDER, UNKNOWN Admitting Unavailable PROVIDER, UNKNOWN Attending Unavailable PROVIDER, UNKNOWN Admitting Unavailable MENG DWAINE AHilda Referring Unavailable DWAINE SANTOS Attending Unavailable DWANIE SANTOS Referring Unavailable DWAINE SANTOS Admitting Unavailable PROVIDER, UNKNOWN Admitting Unavailable PROVIDER, UNKNOWN Attending Unavailable PROVIDER, UNKNOWN Admitting Unavailable PROVIDER, UNKNOWN Attending Unavailable PROVIDER, UNKNOWN Admitting Unavailable PROVIDER, UNKNOWN Attending Unavailable DR KARTHIK IRELAND Admitting Unavailable [...] Care Unavailable DR KARTHIK IRELAND Consulting Unavailable Karthik Ireland DO Primary Care Provider [phone] Karthik Ireland DO Unavailable [phone] KARTHIK IRELAND Primary Care Physician Unavail able Cody Celeste Unavailable Unavailable SWAPNA FONSECA Referring Unavailable Lincoln MATTHEWS Attending Unavailable KARTHIK IRELAND Attending Unavailable KARTHIK IRELAND Referring Unavailable GIGI YU Attending Unavailable GIGI YU Referring Unavailable GIGI YU Attending Unavailable KARTHIK IRELAND Attending Unavailable KARTHIK IRELAND Referring Unavailable GIGI YU Attending Unavailable JUAN RAMON FERRARA Attending Unavailable GIGI YU Attending Unavailable SWAPNA FONSECA Attending Unavailable Allergies Allergy Classification Reported Allergen(s) Allergy Type Date of Onset Reaction(s) Facility (1 source) SULFA DRUGS CROSS REACTORS; Translations: [SULFA DRUGS CROSS REACTORS] Propensity to adverse reactions to drug (disorder) 1 [facility] (1 source) Sulfonamides (Antibiotic) Drug allergy (disorder) 4 [facility] (2 sources) Sulfonamides (Antibiotic) Drug Allergy 3 [facility] (2 sources) Sulfamethoxazole ; Translations: [sulfamethoxazol e] Drug Allergy Unknown (qualifier value) [facility] (2 sources) Unable to obtain; Translations: [Unable to obtain] Drug allergy [facility] Medications Current Medications Medication Drug Class(es) Dates Sig (Normalized) Sig (Original) [id number] 200 actuat albuterol 0.09 mg/actuat metered dose inhaler (2 sources) beta2-Adrenergic Agonist Start: 09-10-2023 take 1 puff(s) by mouth every four hours as needed for wheezing albuterol HFA 90 mcg/act inhaler Indications: 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 0 07/22/2022 Active apixaban 5 mg oral tablet (3 sources) Factor Xa Inhibitor Start: 06-20-2019 take 1 tablet by mouth twice daily apixaban (Eliquis) 5 MG tablet Indications: Other pulmonary embolism with acute cor pulmonale, unspecified chronicity (CMS/HCC) TAKE ONE (1) TABLET BY MOUTH TWICE DAILY 180 tablet 3 08/03/2023 Active aspirin 81 mg chewable tablet (2 sources) Platelet Aggregation Inhibitor, Nonsteroidal Anti-inflammatory Drug Start: 08-03-2023 take 1 tablet by mouth once daily aspirin (Aspirin Low Dose) 81 MG chewable tablet Indications: Other pulmonary embolism with acute cor pulmonale, unspecified chronicity (CMS/HCC) CHEW AND SWALLOW 1 TABLET BY MOUTH ONCE DAILY 90 tablet 3 08/03/2023 Active Atenolol (1 source) beta-Adrenergic Dann Start: 06-08-2019 atenolol Start Date: 06/08/19 Status: Ordered calcium carbonate 1500 mg oral tablet (2 sources) Start: 08-03-2023 take 1 tablet by mouth twice daily at mealtime calcium carbonate 1500 (600 Ca) MG tablet Indications: Hypocalcemia TAKE ONE (1) TABLET BY MOUTH TWICE DAILY WITH MEALS 180 tablet 3 08/03/2023 Active calcium polycarbophil 625 mg oral tablet (2 sources) take 2 capsules by mouth once daily [facility] Fiber Laxative 625 MG tablet TAKE 2 CAPSULES BY MOUTH EVERY DAY for 14 0 Active cholecalciferol 0.025 mg oral tablet (4 sources) Vitamin D Start: 05-06-2023 take 1 tablet by mouth once daily cholecalciferol (Vitamin D3) 25 MCG (1000 UT) tablet Indications: Mixed hyperlipidemia ([facility]) TAKE 1 TABLET BY MOUTH DAILY DIRECTED 30 tablet 10 05/06/2023 Active Start: 08-27-2022 cholecalcifero l (Vitamin D-3) 25 MCG (1000 UT) capsule Take by mouth Daily. as directed 0 08/27/2022 Active diclofenac sodium 0.01 mg/mg topical gel (3 sources) Nonsteroidal Anti-inflammatory Drug Start: 10-05-2023 diclofenac sodium 1 % gel Indications: Chronic pain syndrome APPLY TO AFFECTED AREA ON KNEE AND BACK 4 TIMES DAILY 100 g 5 10/05/2023 Active Start: 06-20-2019 Voltaren Gel 1 % Gel gram, Topical, QID Start Date: 06/20/19 Status: Ordered fluticasone / vilanterol (3 sources) Corticosteroid, beta2-Adrenergic Agonist Start: 03-26-2020 Breo Ellipta Inhalation, Daily, Refill(s) 0 Start Date: 03/26/20 Status: Ordered Fluticasone Furo ate-Vilanterol (Breo Ellipta) 100-25 MCG/ACT aerosol powder 1 puff in the morning. 0 Active furosemide 40 mg oral tablet (5 sources) Loop Diuretic Start: 05-28-2023 End: 05-27-2024 take 1 tablet by mouth once daily furosemide (Lasix) 40 MG tablet Indications: Acute on chronic combined systolic (congestive) and diastolic (congestive) heart failure (CMS/HCC) TAKE 1 TABLET BY MOUTH EVERY DAY FOR 90 DAYS 90 tablet 3 06/01/2023 Active Start: 03-26-2020 take 1 mg by mouth once daily furosemide 20 mg Tab mg tab(s), Oral, Daily, Refills(s) 0 Start Date: 03/26/20 Status: Ordered gabapentin 300 mg oral capsule (2 sources) Anti-epileptic Agent Start: 03-05-2023 take 1 capsule by mouth twice daily gabapentin (Neurontin) 300 MG capsule Indications: Chronic pain syndrome TAKE ONE (1) CAPSULE BY MOUTH TWICE DAILY 60 capsule 10 03/05/2023 Active HYDROcodone (1 source) Opioid Agonist Start: 06-08-2019 hydrocodone Refills(s) 0 Start Date: 06/08/19 Status: Ordered hydrocortisone 10 mg/ml rectal cream (2 sources) Corticosteroid hydrocortisone 1 % cream Apply topically 2 (two) times a day. 0 Active ibuprofen 800 mg oral tablet (2 sources) Nonsteroidal Anti-inflammatory Drug Start: 06-25-2022 take 1 tablet by mouth every eight hours as needed ibuprofen 800 MG tablet Take 800 mg by mouth every 8 (eight) hours if needed. 0 06/25/2022 Active magnesium hydroxide 80 mg/ml oral suspension (2 sources) magnesium hydrox torey (Milk of Magnesia) 400 MG/5ML suspension Take by mouth every 6 (six) hours. 0 Active metoprolol tartrate 25 mg oral tablet (2 sources) beta-Adrenergic Dann Start: 05-06-2023 take 1 tablet by mouth twice daily at mealtime metoprolol tartrate (Lopressor) 25 MG tablet Indications: Mixed hyperlipidemia (CMS/HCC) TAKE ONE (1) TABLET BY MOUTH TWICE DAILY WITH FOOD 180 tablet 3 05/06/2023 Active omeprazole 40 mg delayed release oral capsule (3 sources) Proton Pump Inhibitor Start: 06-20-2019 take 1 capsule by mouth once daily omeprazole (PriLOSEC) [address] capsule Indications: Gastro-esophageal reflux disease without esophagitis TAKE ONE (1) CAPSULE BY MOUTH ONCE DAILY 30 capsule 10 03/06/2023 Active oxyCODONE hydrochloride 10 mg oral tablet (3 sources) Opioid Agonist Start: 10-05-2023 End: 11-04-2023 take 1 tablet by mouth in the morning, then take 1 tablet by mouth in the evening, then take 1 tablet by mouth at bedtime oxyCODONE (Roxicodone) 10 MG immediate release tablet Indications: Chronic pain syndrome Take 1 tablet (10 mg) by mouth in the morning and 1 tablet (10 mg) in the evening and 1 tablet (10 mg) before bedtime. 90 tablet 0 10/05/2023 11/04/2023 Active Start: 06-08-2019 oxycodone Refi lls(s) 0 Start Date: 06/08/19 Status: Ordered Respiratory Therapy Supplies (Nebulizer/Tubing/Mouthpiece) kit (2 sources) Respiratory Ther apy Supplies (Nebulizer/Tubing/Mouthpiece) kit Sertraline (1 source) Serotonin Reuptake Inhibitor St ar t: 0 sertraline Start Date: Status: Ordered simvastatin 40 mg oral table t (3 sources) HMG-CoA Reductase Inhibitor St ar t: 06 0 take 1 tablet by mouth at bedtime simvastatin (Zocor) 40 MG tablet Indications: Pure hypertriglyceridemia (CMS/HCC) Take 1 tablet (40 mg) by mouth at bedtime. 90 tablet 3 02/05/2023 Active Start: 06-08-[address] art Date: 06/08/19 Status: Ordered Spiriva HandiHaler (1 source) Start: 03-26-2020 Spiriva HandiH aler microgram, Inhalation, Daily, Refills(s) 0 Start Date: 03/26/20 Status: Ordered tamsulosin hydrochloride 0.4 mg oral capsule (3 sources) alpha-Adrenergic Dann Start: 03-05-2023 tamsulosin (Flomax) 0.4 MG 24 hr capsule Indications: BPH without obstruction/lower urinary tract symptoms TAKE ONE (1) CAPSULE BY MOUTH ONCE DAILY 30 MINUTES AFTER THE SAME MEAL 30 capsule 03/05/2023 Active Start: 06-08-2019 tamsulosin mg Start Date: 06/08/19 Status: Ordered tiotropium 0.018 mg inhalation powder (2 sources) Anticholinergic Start: 02-05-2023 take 1 capsule by inhalation in the morning Spiriva HandiHaler 18 MCG inhalation capsule Indications: 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) Place 1 capsule (18 mcg) into inhaler and inhale in the morning. 90 capsule 3 02/05/2023 Active tiZANidine 4 mg oral tablet (3 sources) Central alpha-2 Adrenergic Agonist Start: 03-05-2023 take 1 tablet by mouth twice daily as needed tiZANidine (Zanaflex) 4 MG tablet Indications: Chronic pain syndrome TAKE ONE (1) TABLET BY MOUTH TWICE DAILY NEEDED 60 tablet 10 03/05/2023 Active Start: 06-08-2019 Zanaflex Start Date: 06/08/19 Status: Ordered traZODone hydrochloride 100 mg oral tablet (2 sources) Serotonin Reuptake Inhibitor Start: 07-10-2023 take 1 tablet by mouth once daily at bedtime as needed traZODone (Desyrel) 100 MG tablet Indications: Essential hypertension, benign (CMS/HCC) TAKE 1 TABLET BY MOUTH EVERY DAY AT BEDTIME NEEDED 90 tablet 3 07/10/2023 Active Ambien (1 source) gamma-Aminobutyr ic Acid-ergic Agonist Start: 06-08-2019 Ambien Start Date: 06/08/19 Status: Ordered Problems Active Problems Problem Classification Problem Date Documented Date Episodic/Chronic Acute myocardial infarction (1 source) Myocardial infarction 02-06-2021 Chronic Cardiac dysrhythmias (4 sources) Unspecified atrial fibrillation; Translations: [Paroxysmal atrial fibrillation] Onset: 02-21-2022 02-09-2023 Chronic Chronic kidney disease (2 sources) Chronic kidney disease stage 3A ; Translations: [Stage 3a chronic kidney disease (HCC)] Onset: 02-09-2023 02-09-2023 Chronic Chronic obstructive pulmonary disease and bronchiectasis (7 sources) Chronic obstructive pulmonary disease, unspecified; Translations: [Chronic obstructive lung disease] Onset: 02-19-2022 Chronic Congestive heart failure; nonhypertensive (3 sources) Chronic combined systolic (congestive) and diastolic (congestive) heart failure; Translations: [Chronic combined systolic and diastolic heart failure] Onset: 02-21-2022 02-09-2023 Chronic Coronary atherosclerosis and other heart disease (4 sources) Atherosclerotic heart disease of [place] coronary artery without angina pectoris; Translations: [Coronary atherosclerosis] Onset: 07-13-2022 02-09-2023 Chronic Disorders of lipid metabolism (4 sources) Pure hypercholesterolemia, unspecified; Translations: [Mixed hyperlipidemia] Onset: 07-13-2022 02-09-2023 Chronic Esophageal disorders (3 sources) Gastroesophageal reflux disease without esophagitis; Translations: [Gastro-esophageal reflux disease without esophagitis] Onset: 02-09-2023 02-09-2023 Chronic Essential hypertension (8 sources) Essential (primary) hypertension; Translations: [Essential hypertension] Onset: 07-13-2022 Chronic Genitourinary symptoms and ill-defined conditions (1 source) Post-micturition incontinence 02-06-2021 Chronic Genitourinary symptoms and ill-defined conditions (3 sources) Increased frequency of urination; Translations: [Microscopic hematuria] 02-06-2021 Episodic Hyperplasia of prostate (3 sources) Benign prostatic hyperplasia; Translations: [Benign prostatic hyperplasia without lower urinary tract symptoms] Onset: 02-09-2023 02-09-2023 Chronic Hypertension with complications and secondary hypertension (1 source) Hypertensive heart disease with heart failure; Translations: [HTN HEART DISEASE W/HEART FAIL] Onset: 02-21-2022 Chronic Mycoses (1 source) Onychomycosis; Translations: [Tinea unguium] 10-15-2023 Episodic Nutritional deficiencies (1 source) Vitamin D deficiency, unspecified; Translations: [VITAMIN D DEFICIENCY UNSPECIFIED] Onset: 07-13-2022 Chronic Osteoarthritis (1 source) Degenerative joint disease of ankle AND/OR foot; Translations: [Primary osteoarthritis, left ankle and foot] 10-15-2023 Chronic Other connective tissue disease (1 source) Pain of toe of right foot; Translations: [Pain in right toe(s)] 10-15-2023 Episodic Other connective tissue disease (1 source) Pain of toe of left foot; Translations: [Pain in left toe(s)] 10-15-2023 Episodic Other diseases of veins and lymphatics (1 source) Vascular insufficiency; Translations: [Venous insufficiency (chronic) (peripheral)] 10-15-2023 Episodic Other nervous system disorders (1 source) Chronic pain syndrome; Translations: [CHRONIC PAIN SYNDROME] Onset: 07-13-2022 Chronic Other nervous system disorders (2 sources) Chronic pain syndrome; Translations: [Chronic pain syndrome] Onset: 02-09-2023 02-09-2023 Chronic Other nervous system disorders (2 sources) Peripheral nerve disease ; Translations: [Polyneuropathy, unspecified] Onset: 02-09-2023 02-09-2023 Chronic Other nervous system disorders (1 source) Polyneuropathy; Translations: [Other specified polyneuropathies] 10-15-2023 Chronic Other nutritional; endocrine; and metabolic disorders (1 source) Hyperuricemia without signs of inflammatory arthritis and tophaceous disease; Translations: [HU W/O SIGNS IA AND TOPHACEOUS DZ] Onset: 11-17-2022 Episodic Other screening for suspected conditions (not mental disorders or infectious disease) (7 sources) Encounter for screening for malignant neoplasm of prostate; Translations: [Raised prostate specific antigen] Onset: 07-08-2022 Episodic Peripheral and visceral atherosclerosis (2 sources) Peripheral vascular disease; Translations: [Peripheral vascular disease, unspecified] Onset: 02-09-2023 02-09-2023 Chronic Pulmonary heart disease (3 sources) Pulmonary embolism; Translations: [Other pulmonary embolism without acute cor pulmonale] Onset: 02-09-2023 02-09-2023 Episodic Residual codes; unclassified (1 source) H/O: anticoagulant therapy 02-06-2021 Episodic Thyroid disorders (2 sources) Thyroid nodule; Translations: [Nontoxic single thyroid nodule] Onset: 02-09-2023 02-09-2023 Chronic Past or Other Problems Problem Classification Problem Date Documented Da te Episodic/Chronic Acute and unspecified renal failure (1 source) Acute kidney failure, unspecified; Translations: [ACUTE KIDNEY FAILURE UNSPECIFIED] Onset: 07-13-2022 Episodic Administrative/social admission (2 sources) Patient encounter status; Translations: [Other specified counseling] Onset: 02-12-2023 Resolved: 09-10-2023 09-10-2023 Episodic Deficiency and other anemia (1 source) Anemia, unspecified; Translations: [ANEMIA UNSPECIFIED] Onset: 07-13-2022 Episodic Other aftercare (1 source) Other retirement (current) drug therapy; Translations: [OTH 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] Onset: 07-13-2022 Episodic Other gastrointestinal disorders (2 sources) Constipation; Translations: [Constipation, unspecified] Onset: 02-09-2023 Resolved: 09-10-2023 09-10-2023 Episodic Other nutritional; endocrine; and metabolic disorders (2 sources) Hyperuricemia; Translations: [Hyperuricemia without signs of inflammatory arthritis and tophaceous disease] Onset: 02-09-2023 02-09-2023 Episodic Residual codes; unclassified (1 source) Edema, unspecified; Translations: [EDEMA UNSPECIFIED] Onset: 02-21-2022 Episodic Residual codes; unclassified (2 sources) Insomnia; Translations: [Insomnia, unspecified] Onset: 02-09-2023 02-09-2023 Episodic Results Test Name Value Interpretation Reference Range Facility CBC AUTO DIFFon 11-10-2022 BASO # 0.0 103/ul Normal 0.0-0.1 [facility] Comment on above: Performed By: #### C BC #### [facility] [address] [place] [address] Dr. Karen Marie Basophils/100 WBC (Bld) 0.4 % Normal 0.2-2.0 [facility] Comment on above: Performed By: #### C BC #### [facility] [address] [place] [address] Dr. Karen Marie EO # 0.1 103/ul Normal 0.0-0.7 [facility] Comment on above: Performed By: #### C BC #### [facility] [address] [place] [address] Dr. Karen Marie Eosinophils/100 WBC (Bld) 1.9 % Normal 0.9-7.0 [facility] Comment on above: Performed By: #### C BC #### [facility] [address] [place] [address] Dr. Karen Marie Erythrocyte distribution width (RBC) [Ratio] 16.1 % Critically high 11.0-15.0 [facility] Comment on above: Performed By: #### C BC #### [facility] [address] [place] [address] Dr. Karen Marie Hematocrit (Bld) [Volume fraction] 42.5 % Normal 42.0-54.0 [facility] Comment on above: Performed By: #### C BC #### [facility] [address] [place] [address] Dr. Karen Marie Hemoglobin (Bld) [Mass/Vol] 13.5 g/dL Critically low 14.0-18.0 [facility] Comment on above: Performed By: #### C BC #### [facility] [address] [place] [address] Dr. Karen Marie IG # 0.03 10e3/ul Normal 0.00-0.03 [facility] Comment on above: Performed By: #### C BC #### [facility] [address] [place] [address] Dr. Karen Marie IG % 0.4 % Normal 0.0-0.5 [facility] Comment on above: Performed By: #### C BC #### [facility] [address] [place] [address] Dr. Karen Marie LYMPH # 1.7 103/ul Normal 1.2-3.8 [facility] Comment on above: Performed By: #### C BC #### [facility] [address] [place] [address] Dr. Karen Marie Lymphocytes/100 WBC (Bld) 22.3 % Normal 20.5-60.0 [facility] Comment on above: Performed By: #### C BC #### [facility] [address] [place] [address] Dr. Karen Marie MANUAL DIFF REQ NO Normal [facility] Comment on above: Performed By: #### C BC #### [facility] [address] [place] [address] Dr. Karen Marie MCH (RBC) [Entitic mass] 27.8 pg Normal 25.9-34.0 [facility] Comment on above: Performed By: #### C BC #### [facility] [address] [place] [address] Dr. Karen Marie MCHC (RBC) [Mass/Vol] 31.8 g/dL Normal 29.9-35.2 [facility] Comment on above: Performed By: #### C BC #### [facility] [address] [place] [address] Dr. Karen Marie MCV (RBC) [Entitic vol] 87.4 fL Normal 80.0-94.0 [facility] Comment on above: Performed By: #### C BC #### [facility] [address] [address] [address] Karen Marie MONO # 0.9 103/ul Critically high 0.3-0.[address] [facility] Comment on above: Performed By: #### C BC #### [facility] [address] [place] [address] Dr. Karen Marie Monocytes/100 WBC (Bld) 11.4 % Normal 1.7-12.0 [facility] Comment on above: Performed By: #### C BC #### [facility] [address] [place] [address] Dr. Karen Marie NEUT # 4.7 103/ul Normal 1.4-6.5 [facility] Comment on above: Performed By: #### C BC #### [facility] [address] [place] [address] Dr. Karen Marie Neutrophils/100 WBC (Bld) 63.6 % Normal 43.0-75.0 [facility] Comment on above: Performed By: #### C BC #### [facility] [address] [place] [address] Dr. Karen Marie Platelet mean volume (Bld) [Entitic vol] 11.9 fL Normal 9.5-13.5 [facility] Comment on above: Performed By: #### C BC #### [facility] [address] [place] [address] Dr. Karen Marie PLT 162 103/ul Normal 150-450 [facility] Comment on above: Performed By: #### C BC #### [facility] [address] [place] [address] Dr. Karen Marie RBC 4.86 106/ul Normal 4.70-6.10 [facility] Comment on above: Performed By: #### C BC #### [facility] [address] [place] [address] Dr. Karen Marie WBC 7.4 103/ul Normal 4.0-11.0 [facility] Comment on above: Performed By: #### C BC #### [facility] [address] [place] [address] Dr. Karen Marie PROF 14(COMP METB)on 023 Albumin [Mass/Vol] 3.8 g/dL Normal 3.4-5.0 [facility] Comment on above: Performed By: #### P SAD, FERR, FETIBC #### [facility] [address] [place] [address] Dr. Karen Marie Albumin/Globulin [Mass ratio] 1.1 {ratio} Normal [facility] Comment on above: Performed By: #### P SAD, FERR, FETIBC #### [facility] [address] [place] [address] Dr. Karen Marie ALP [Catalytic activity/Vol] 79 U/L Normal 46-116 [facility] Comment on above: Performed By: #### P SAD, FERR, FETIBC #### [facility] [address] [place] [address] Dr. Karen Marie ALT [Catalytic activity/Vol] 15 U/L Critically low 16-63 [facility] Comment on above: Performed By: #### P SAD, FERR, FETIBC #### [facility] [address] [place] [address] Dr. Karen Marie Anion gap [Moles/Vol] 12.3 mmol/L Normal [facility] Comment on above: Performed By: #### P SAD, FERR, FETIBC #### [facility] [address] [place] [address] Dr. Karen Marie AST [Catalytic activity/Vol] 17 U/L Normal 15-37 [facility] Comment on above: Performed By: #### P SAD, FERR, FETIBC #### [facility] [address] [address] [address] Karen Marie Bilirubin [Mass/Vol] 0.9 mg/dL Normal 0.2-1.0 [facility] Comment on above: Performed By: #### P SAD, FERR, FETIBC #### [facility] [address] [address] [address] Karen Marie Calcium [Mass/Vol] 9.3 mg/dL Normal 8.5-10.1 [facility] Comment on above: Performed By: #### P SAD, FERR, FETIBC #### [facility] [address] [address] [address] Karen Marie Chloride [Moles/Vol] 103 mmol/L Normal 98-107 [facility] Comment on above: Performed By: #### P SAD, FERR, FETIBC #### [facility] [address] [place] [address] Dr. Karen Marie CO2 [Moles/Vol] 30.7 mmol/L Normal 21.0-32.0 [facility] Comment on above: Performed By: #### P SAD, FERR, FETIBC #### [facility] [facility] [address] [address] [address] Karen Marie Creatinine [Mass/Vol] 1.37 mg/dL Critically high 0.70-1.30 [facility] Comment on above: Performed By: #### P SAD, FERR, FETIBC #### [facility] [address] [address] [address] Karen Marie EGFR-AF TRINIDADIAN >60 Normal >=60 [facility] Comment on above: Performed By: #### P SAD, FERR, FETIBC #### [facility] [address] [address] [address] Karen Marie EGFR-NON AF TRINIDADIAN 51 mL/min/1.73m2 Critically low >=60 [facility] Comment on above: Performed By: #### P SAD, FERR, FETIBC #### [facility] [address] [address] [address] Karen Marie Globulin (S) [Mass/Vol] 3.5 g/dL Normal [facility] Comment on above: Performed By: #### P SAD, FERR, FETIBC #### [facility] [address] [address] [address] Karen Marie Glucose [Mass/Vol] 102 mg/dL Normal 74-106 [facility] Comment on above: Performed By: #### P SAD, FERR, FETIBC #### [facility] [address] [place] [address] Dr. Karen Marie Potassium [Moles/Vol] 4.0 mmol/L Normal 3.5-5.1 [facility] Comment on above: Performed By: #### P SAD FERR, FETIBC #### [facility] [address] [place] [address] Dr. Karen Marie Protein [Mass/Vol] 7.3 g/dL Normal 6.4-8.2 [facility] Comment on above: Performed By: #### P SAD FERR, FETIBC #### [facility] [address] [place] [address] Dr. Karen Marie Sodium [Moles/Vol] 142 mmol/L Normal 136-145 [facility] Comment on above: Performed By: #### P SAD FERR, FETIBC #### [facility] [address] [place] [address] Dr. Karen Marie Urea nitrogen [Mass/Vol] 16.0 mg/dL Normal 7.0-18.0 [facility] Comment on above: Performed By: #### P SAD, FERR, FETIBC #### [facility] [address] [place] [address] Dr. Karen Marie Urea nitrogen/Creatinine [Mass ratio] 11.7 mg/mg Normal [facility] Comment on above: Performed By: #### P SAD, FERR, FETIBC #### [facility] [address] [place] [address] Dr. Karen Marie URIC ACID SERUMon 11-10-2022 Urate [Mass/Vol] 8.9 mg/dL Critically high 3.5-7.2 [facility] Comment on above: Performed By: #### P SAD, FERR, FETIBC #### [facility] [address] [place] [address] Dr. Karen Marie CBC AUTO DIFFon 07-08-2022 BASO # 0.0 103/ul Normal 0.0-0.1 [facility] Comment on above: Performed By: #### P SAD, FERR, FETIBC #### [facility] [address] [place] [address] Dr. Karen Marie Basophils/100 WBC (Bld) 0.4 % Normal 0.2-2.0 [facility] Comment on above: Performed By: #### P SAD, FERR, FETIBC #### [facility] [address] [place] [address] Dr. Karen Marie EO # 0.1 103/ul Normal 0.0-0.7 [facility] Comment on above: Performed By: #### P SAD, FERR, FETIBC #### [facility] [address] [place] [address] Dr. Karen Marie Eosinophils/100 WBC (Bld) 1.7 % Normal 0.9-7.0 [facility] Comment on above: Performed By: #### P SAD, FERR, FETIBC #### [facility] [address] [place] [address] Dr. Karen Marie Erythrocyte distribution width (RBC) [Ratio] 13.6 % Normal 11.0-15.0 [facility] Comment on above: Performed By: #### P SAD, FERR, FETIBC #### [facility] [address] [place] [address] Dr. Karen Marie Hematocrit (Bld) [Volume fraction] 43.3 % Normal 42.0-54.0 [facility] Comment on above: Performed By: #### P SAD, FERR, FETIBC #### [facility] [address] [place] [address] Dr. Karen Marie Hemoglobin (Bld) [Mass/Vol] 14.3 g/dL Normal 14.0-18.0 [facility] Comment on above: Performed By: #### P SAD, FERR, FETIBC #### [facility] [address] [address] [address] Karen Marie IG # 0.01 10e3/ul Normal 0.00-0.03 [facility] Comment on above: Performed By: #### P SAD, FERR, FETIBC #### [facility] [address] [place] [address] Dr. Karen Marie IG % 0.1 % Normal 0.0-0.5 [facility] Comment on above: Performed By: #### P SAD, FERR, FETIBC #### [facility] [address] [place] [address] Dr. Karen Marie LYMPH # 1.9 103/ul Normal 1.2-3.8 [facility] Comment on above: Performed By: #### P SAD, FERR, FETIBC #### [facility] [address] [place] [address] Dr. Karen Marie Lymphocytes/100 WBC (Bld) 27.7 % Normal 20.5-60.0 [facility] Comment on above: Performed By: #### P SAD, FERR, FETIBC #### [facility] [address] [place] [address] Dr. Karen Marie MANUAL DIFF REQ NO Normal [facility] Comment on above: Performed By: #### P SAD, FERR, FETIBC #### [facility] [address] [place] [address] Dr. Karen Marie MCH (RBC) [Entitic mass] 29.9 pg Normal 25.9-34.0 [facility] Comment on above: Performed By: #### P SAD, FERR, FETIBC #### [facility] [address] [place] [address] Dr. Karen Marie MCHC (RBC) [Mass/Vol] 33.0 g/dL Normal 29.9-35.2 [facility] Comment on above: Performed By: #### P SAD, FERR, FETIBC #### [facility] [address] [place] [address] Dr. Karen Marie MCV (RBC) [Entitic vol] 90.6 fL Normal 80.0-94.0 [facility] Comment on above: Performed By: #### P SAD, FERR, FETIBC #### [facility] [address] [place] [address] Dr. Karen Marie MONO # 0.8 103/ul Normal 0.3-0.8 [facility] Comment on above: Performed By: #### P SAD, FERR, FETIBC #### [facility] [address] [place] [address] Dr. Karen Marie Monocytes/100 WBC (Bld) 11.1 % Normal 1.7-12.0 [facility] Comment on above: Performed By: #### P SAD, FERR, FETIBC #### [facility] [address] [place] [address] Dr. Karen Marie NEUT # 4.1 103/ul Normal 1.4-6.5 [facility] Comment on above: Performed By: #### P SAD, FERR, FETIBC #### [facility] [address] [place] [address] Dr. Karen Marie Neutrophils/100 WBC (Bld) 59.0 % Normal 43.0-75.0 [facility] Comment on above: Performed By: #### P SAD, FERR, FETIBC #### [facility] [address] [place] [address] Dr. Karen Marie Platelet mean volume (Bld) [Entitic vol] 11.3 fL Normal 9.5-13.5 [facility] Comment on above: Performed By: #### P SAD, FERR, FETIBC #### [facility] [address] [place] [address] Dr. Karen Marie PLT 175 103/ul Normal 150-450 [facility] Comment on above: Performed By: #### P SAD, FERR, FETIBC #### [facility] [address] [place] [address] Dr. Karen Marie RBC 4.78 106/ul Normal 4.70-6.10 [facility] Comment on above: Performed By: #### P SAD, FERR, FETIBC #### [facility] [address] [address] [address] Karen Marie WBC 7.0 103/ul Normal 4.0-11.0 [facility] Comment on above: Performed By: #### P SAD, FERR, FETIBC #### [facility] [address] [address] [address] Karen Marie FERRITINon 07-08-2022 Ferritin [Mass/Vol] 43.0 ng/mL Normal 26.0-388.0 [facility] Comment on above: Performed By: #### P SAD, FERR, FETIBC #### [facility] [address] [place] [address] Dr. Karen Marie IRON AND TIBCon 07-08-2022 % SATURATION 12.7 % Normal [facility] Comment on above: Performed By: #### P SAD, FERR, FETIBC #### [facility] [address] [place] [address] Dr. Karen Marie Iron [Mass/Vol] 46.0 ug/dL Critically low 65.0-175.0 [facility] Comment on above: Performed By: #### P SAD, FERR, FETIBC #### [facility] [address] [place] [address] Dr. Karen Marie TIBC DIRECT 363.0 ug/dL Normal 250.0-450.0 [facility] Comment on above: Performed By: #### P SAD, FERR, FETIBC #### [facility] [address] [place] [address] Dr. Karen Marie LIPID PROFILEon 07-08-2022 CHOL-HDL RATIO NORM SEE BELOW Normal [facility] Comment on above: Result Comment: 3.3 - 4.4 LOW RISK 4.4 - 7.1 AVERAGE RISK 7.1 - 11.0 MODERATE RISK >11.0 HIGH RISK Performed By: #### L IPID, CMP, URIC, TSH #### [facility] [address] [place] [address] Dr. Karen Marie Cholesterol [Mass/Vol] 131 mg/dL Normal <=[address] [facility] Comment on above: Performed By: #### L IPID, CMP, URIC, TSH #### [facility] [address] [address] [address] Karen Marie Cholesterol in HDL [Mass/Vol] 52 mg/dL Normal 40-60 [facility] Comment on above: Performed By: #### L IPID, CMP, URIC, TSH #### [facility] [address] [address] [address] Karen Marie Cholesterol in LDL [Mass/Vol] 59.2 mg/dL Normal [facility] Comment on above: Performed By: #### L IPID, CMP, URIC, TSH #### [facility] [address] [address] [address] Karen Marie Cholesterol.total/Chol esterol in HDL [Mass ratio] 2.5 {ratio} Normal [facility] Comment on above: Performed By: #### L IPID, CMP, URIC, TSH #### [facility] [address] [address] [address] Karen Marie HDL NORMAL > or = 60 mg/dl - LOW CARDIOVASCULAR RISK <40 mg/dl - HIGH CARDIOVASCULAR RISK Normal [facility] Comment on above: Performed By: #### L IPID, CMP, URIC, TSH #### [facility] [address] [address] [address] Karen Marie LDL CALC NORMAL SEE BELOW Normal [facility] Comment on above: Result Comment: <100 mg/dl OPTIMAL 100 - 129 mg/dl NEAR OR ABOVE OPTIMAL 130 - 159 mg/dl BORDERLINE HIGH 160 - 189 mg/dl HIGH >190 mg/dl VERY HIGH Performed By: #### L IPID, CMP, URIC, TSH #### [facility] [address] [address] [address] Karen Marie Triglyceride [Mass/Vol] 99 mg/dL Normal <=150 [facility] Comment on above: Performed By: #### L IPID, CMP, URIC, TSH #### [facility] [address] [address] [address] Karen Marie VLDL CALC 19.8 mg/dL Normal [facility] Comment on above: Performed By: #### L IPID, CMP, URIC, TSH #### [facility] [address] [place] [address] Dr. Karen Marie PROF 14(COMP METB)on 022 Albumin [Mass/Vol] 3.5 g/dL Normal 3.4-5.0 [facility] Comment on above: Performed By: #### L IPID, CMP, URIC, TSH #### [facility] [address] [place] [address] Dr. Karen Marie Albumin/Globulin [Mass ratio] 0.9 {ratio} Normal [facility] Comment on above: Performed By: #### L IPID, CMP, URIC, TSH #### [facility] [address] [place] [address] Dr. Karen Marie ALP [Catalytic activity/Vol] 83 U/L Normal 46-116 [facility] Comment on above: Performed By: #### L IPID, CMP, URIC, TSH #### [facility] [address] [place] [address] Dr. Karen Marie ALT [Catalytic activity/Vol] 13 U/L Critically low 16-63 [facility] Comment on above: Performed By: #### L IPID, CMP, URIC, TSH #### [facility] [address] [place] [address] Dr. Karen Marie Anion gap [Moles/Vol] 6.9 mmol/L Normal [facility] Comment on above: Performed By: #### L IPID, CMP, URIC, TSH #### [facility] [address] [place] [address] Dr. Karen Marie AST [Catalytic activity/Vol] 25 U/L Normal 15-37 [facility] Comment on above: Performed By: #### L IPID, CMP, URIC, TSH #### [facility] [address] [place] [address] Dr. Karen Marie Bilirubin [Mass/Vol] 0.5 mg/dL Normal 0.2-1.0 [facility] Comment on above: Performed By: #### L IPID, CMP, URIC, TSH #### [facility] [address] [address] [address] Karen Marie Calcium [Mass/Vol] 9.9 mg/dL Normal 8.5-10.1 [facility] Comment on above: Performed By: #### L IPID, CMP, URIC, TSH #### [facility] [address] [address] [address] Karen Marie Chloride [Moles/Vol] 101 mmol/L Normal 98-107 [facility] Comment on above: Performed By: #### L IPID, CMP, URIC, TSH #### [facility] [address] [address] [address] Karen Marie CO2 [Moles/Vol] 31.5 mmol/L Normal 21.0-32.0 [facility] Comment on above: Performed By: #### L IPID, CMP, URIC, TSH #### [facility] [address] [place] [address] Dr. Karen Marie Creatinine [Mass/Vol] 1.51 mg/dL Critically high 0.70-1.30 [facility] Comment on above: Performed By: #### L IPID, CMP, URIC, TSH #### [facility] [address] [address] [address] Karen Marie EGFR-AF TRINIDADIAN 55 mL/min/1.73m2 Critically low >=60 [facility] Comment on above: Performed By: #### L IPID, CMP, URIC, TSH #### [facility] [address] [address] [address] Karen Marie EGFR-NON AF TRINIDADIAN 45 mL/min/1.73m2 Critically low >=60 [facility] Comment on above: Performed By: #### L IPID, CMP, URIC, TSH #### [facility] [address] [address] [address] Karen Marie Globulin (S) [Mass/Vol] 3.9 g/dL Normal [facility] Comment on above: Performed By: #### L IPID, CMP, URIC, TSH #### [facility] [address] [address] [address] Karen Marie Glucose [Mass/Vol] 124 mg/dL Critically high 74-106 [facility] Comment on above: Performed By: #### L IPID, CMP, URIC, TSH #### [facility] [address] [place] [address] Dr. Karen Marie Potassium [Moles/Vol] 3.4 mmol/L Critically low 3.5-5.1 [facility] Comment on above: Performed By: #### L IPID, CMP, URIC, TSH #### [facility] [address] [address] [address] Karen Marie Protein [Mass/Vol] 7.4 g/dL Normal 6.4-8.2 [facility] Comment on above: Performed By: #### L IPID, CMP, URIC, TSH #### [facility] [address] [place] [address] Dr. Karen Marie Sodium [Moles/Vol] 136 mmol/L Normal 136-145 [facility] Comment on above: Performed By: #### L IPID, CMP, URIC, TSH #### [facility] [address] [address] [address] Karen Marie Urea nitrogen [Mass/Vol] 13.0 mg/dL Normal 7.0-18.0 [facility] Comment on above: Performed By: #### L IPID, CMP, URIC, TSH #### [facility] [address] [place] [address] Dr. Karen Marie Urea nitrogen/Creatinine [Mass ratio] 8.6 mg/mg Normal [facility] Comment on above: Performed By: #### L IPID, CMP, URIC, TSH #### [facility] [address] [place] [address] Dr. Karen Marie TSHon 07-08-2022 TSH 2.103 uIU/mL Normal 0.358-3.740 [facility] Comment on above: Performed By: #### L IPID, CMP, URIC, TSH #### [facility] [address] [place] [address] Dr. Karen Marie URIC ACID SERUMon 07-08-2022 Urate [Mass/Vol] 9.4 mg/dL Critically high 3.5-7.2 [facility] Comment on above: Performed By: #### L IPID, CMP, URIC, TSH #### [facility] [address] [place] [address] Dr. Karen Marie CBC AUTO DIFFon 02-19-2022 BASO # 0.0 103/ul Normal 0.0-0.1 [facility] Comment on above: Performed By: #### C BC #### [facility] [address] [place] [address] Dr. Karen Marie Basophils/100 WBC (Bld) 0.4 % Normal 0.2-2.0 [facility] Comment on above: Performed By: #### C BC #### [facility] [address] [place] [address] Dr. Karen Marie EO # 0.2 103/ul Normal 0.0-0.7 [facility] Comment on above: Performed By: #### C BC #### [facility] [address] [place] [address] Dr. Karen Marie Eosinophils/100 WBC (Bld) 3.2 % Normal 0.9-7.0 [facility] Comment on above: Performed By: #### C BC #### [facility] [address] [place] [address] Dr. Karen Marie Erythrocyte distribution width (RBC) [Ratio] 13.7 % Normal 11.0-15.0 [facility] Comment on above: Performed By: #### C BC #### [facility] [address] [place] [address] Dr. Karen Marie Hematocrit (Bld) [Volume fraction] 43.2 % Normal 42.0-54.0 [facility] Comment on above: Performed By: #### C BC #### [facility] [address] [place] [address] Dr. Karen Marie Hemoglobin (Bld) [Mass/Vol] 13.8 g/dL Critically low 14.0-18.0 [facility] Comment on above: Performed By: #### C BC #### [facility] [address] [place] [address] Dr. Karen Marie IG # 0.03 10e3/ul Normal 0.00-0.03 [facility] Comment on above: Performed By: #### C BC #### [facility] [address] [place] [address] Dr. Karen Marie IG % 0.4 % Normal 0.0-0.5 [facility] Comment on above: Performed By: #### C BC #### [facility] [address] [place] [address] Dr. Karen Marie LYMPH # 1.6 103/ul Normal 1.2-3.8 [facility] Comment on above: Performed By: #### C BC #### [facility] [address] [place] [address] Dr. Karen Marie Lymphocytes/100 WBC (Bld) 23.7 % Normal 20.5-60.0 [facility] Comment on above: Performed By: #### C BC #### [facility] [address] [place] [address] Dr. Karen Marie MANUAL DIFF REQ NO Normal [facility] Comment on above: Performed By: #### C BC #### [facility] [address] [place] [address] Dr. Karen Marie MCH (RBC) [Entitic mass] 30.1 pg Normal 25.9-34.0 [facility] Comment on above: Performed By: #### C BC #### [facility] [address] [place] [address] Dr. Karen Marie MCHC (RBC) [Mass/Vol] 31.9 g/dL Normal 29.9-35.2 [facility] Comment on above: Performed By: #### C BC #### [facility] [address] [place] [address] Dr. Karen Marie MCV (RBC) [Entitic vol] 94.3 fL Critically high 80.0-94.0 [facility] Comment on above: Performed By: #### C BC #### [facility] [address] [place] [address] Dr. Karen Marie MONO # 0.8 103/ul Normal 0.3-0.8 [facility] Comment on above: Performed By: #### C BC #### [facility] [address] [place] [address] Dr. Karen Marie Monocytes/100 WBC (Bld) 11.7 % Normal 1.7-12.0 [facility] Comment on above: Performed By: #### C BC #### [facility] [address] [place] [address] Dr. Karen Marie NEUT # 4.1 103/ul Normal 1.4-6.5 [facility] Comment on above: Performed By: #### C BC #### [facility] [address] [place] [address] Dr. Karen Marie Neutrophils/100 WBC (Bld) 60.6 % Normal 43.0-75.0 [facility] Comment on above: Performed By: #### C BC #### [facility] [address] [place] [address] Dr. Karen Marie Platelet mean volume (Bld) [Entitic vol] 11.9 fL Normal 9.5-13.5 [facility] Comment on above: Performed By: #### C BC #### [facility] [address] [place] [address] Dr. Karen Marie PLT 129 103/ul Critically low 150-450 [facility] Comment on above: Performed By: #### C BC #### [facility] [address] [place] [address] Dr. Karen Marie RBC 4.58 106/ul Critically low 4.70-6.[address] [facility] Comment on above: Performed By: #### C BC #### [facility] [address] [place] [address] Dr. Karen Marie WBC 6.8 103/ul Normal 4.0-11.0 [facility] Comment on above: Performed By: #### C BC #### [facility] [address] [place] [address] Dr. Karen Marie PROF CHEM 8 (BAS METB)on Anion gap [Moles/Vol] 11.7 mmol/L Normal [facility] Comment on above: Performed By: #### B MP #### [facility] [address] [address] [address] Karen Marie Calcium [Mass/Vol] 9.3 mg/dL Normal 8.5-10.1 [facility] Comment on above: Performed By: #### B MP #### [facility] [address] [address] [address] Karen Marie Chloride [Moles/Vol] 106 mmol/L Normal 98-107 [facility] Comment on above: Performed By: #### B MP #### [facility] [address] [place] [address] Dr. Karen Marie CO2 [Moles/Vol] 28.3 mmol/L Normal 21.0-32.0 [facility] Comment on above: Performed By: #### B MP #### [facility] [address] [address] [address] Karen Marie Creatinine [Mass/Vol] 1.49 mg/dL Critically high 0.70-1.30 [facility] Comment on above: Performed By: #### B MP #### [facility] [address] [place] [address] Dr. Karen Marie EGFR-AF TRINIDADIAN 56 mL/min/1.73m2 Critically low >=60 [facility] Comment on above: Performed By: #### B MP #### [facility] [address] [address] [address] Karen Marie EGFR-NON AF TRINIDADIAN 46 mL/min/1.73m2 Critically low >=60 [facility] Comment on above: Performed By: #### B MP #### [facility] [address] [address] [address] Kraen Marie Glucose [Mass/Vol] 101 mg/dL Normal 74-106 [facility] Comment on above: Performed By: #### B MP #### [facility] [address] [address] [address] Karen Marie Potassium [Moles/Vol] 5.0 mmol/L Normal 3.5-5.1 [facility] Comment on above: Performed By: #### B MP #### [facility] [address] [address] [address] Karen Marie Sodium [Moles/Vol] 141 mmol/L Normal 136-145 [facility] Comment on above: Performed By: #### B MP #### [facility] [id number] Karen Marie Urea nitrogen [Mass/Vol] 17.0 mg/dL Normal 7.0-18.0 [facility] Comment on above: Performed By: #### B MP #### [facility] [address] [address] [address] Karen Marie Urea nitrogen/Creatinine [Mass ratio] 11.4 mg/mg Normal [facility] Comment on above: Performed By: #### B MP #### [facility] [address] [address] [address] Karen Marie XR Foot Complete Left*on [...] by Wandy Lees on 10/17/2021 1252 Normal [facility] [employer] Operator Progress Noteson 08-08-2021 [employer] Operator Authentication Interface Message Text Called pt Jul 6 as scheduled-no ans Called pt Jul 7-no ans [facility]-2021 [employer] Operator Authentication Interface Message Text Normal [facility] Progress Noteson 06-03-2021 [employer] Operator Authentication Interface Message Text Patient at risk for falls:No Falls Risk protocol implemented: Yes wheelchair in locked position when not in use for transport Normal [facility] XR ANKLE LEFT 3 VIEWSon 10-0 XR ANKLE LEFT 3 VIEWS Normal [facility] Anesthesia Attestationon [employer] Operator Authentication Interface Message Text Normal [facility] Anesthesia Postprocedure Lucretia luationon 05-21-2021 [employer] Operator Authentication Interface Message Text Normal [facility] Anesthesia Preprocedure Eval uationon 05-21-2021 [employer] Operator Authentication Interface Message Text Normal [facility] Anesthesia Transfer Of Careo n 05-21-2021 [employer] Gr[employer] Operator Authentication Interface Message Text Normal [facility] H AND Martin 05-21-2021 [employer] Gr[employer] Operator Authentication Interface Message Text Normal [facility] OP Noteon 05-21-2021 [employer] Gr[employer] Operator Authentication Interface Message Text Normal [facility] Procedureson 05-21-2021 [employer] Operator Authentication Interface Message Text Preop dx: L ankle fx Postop dx: same Proc; Removal pins L ankle ([id number]) Removal LLE ex fix () Comp:none Plan NWB LLE, rest, elevation RTC Oct Normal [facility] Progress Noteson 04-29-2021 [employer] Operator Authentication Interface Message Text Patient was identified by name and date of . Mayra Trujillo Applied short leg cast and discussed cast care with patient. Normal [facility] Prec[employer] Thread Grinder Operator Authentication Interface Message Text Patient was identified by name and date of . Amy Gonzalez RN Patient at risk for falls:yes Falls Risk protocol implemented: Yes wheelchair in locked position when not in use for transport Normal [facility] [employer] Operator Authentication Interface Message Text Normal [facility] XR ANKLE LEFT 3 VIEWSon 08-3 XR ANKLE LEFT 3 VIEWS Normal [facility] Complete Blood Count Auto Di ffon 04-18-2021 Basophils (Bld) [#/Vol] 0.0 10*3/uL Normal 0.0-0.2 [facility] Comment on above: Order Comment: CAMDEN Souza FAX TO Result Comment: PERF ORMED BY: [address] [address] PATHOLOGIST SHOE LAY OUT PLANNER JIANLAN SUN M.D. Performed By: #### C MP, CBC #### [address] Basophils/100 WBC (Bld) 0.5 % Normal . [facility] Comment on above: Order Comment: PLEAS E FAX TO Performed By: #### C MP, CBC #### [address] Eosinophils (Bld) [#/Vol] 0.2 10*3/uL Normal 0.0-0.45 [facility] Comment on above: Order Comment: PLEAS E FAX TO Performed By: #### C MP, CBC #### [address] Eosinophils/100 WBC (Bld) 3.4 % Normal . [facility] Comment on above: Order Comment: PLEAS E FAX TO Performed By: #### C MP, CBC #### [address] Erythrocyte distribution width (RBC) [Ratio] 15.5 % High 12.0-14.8 [facility] Comment on above: Order Comment: PLEAS E FAX TO Performed By: #### C MP, CBC #### [address] Hematocrit (Bld) [Volume fraction] 36.7 % Low 38.8-50.0 [facility] Comment on above: Order Comment: PLEAS E FAX TO Performed By: #### C MP, CBC #### [address] Hemoglobin (Bld) [Mass/Vol] 12.0 g/dL Low 13.0-17.0 [facility] Comment on above: Order Comment: PLEAS E FAX TO Performed By: #### C MP, CBC #### [address] Lymphocytes (Bld) [#/Vol] 1.8 10*3/uL Normal 1.00-4.8 [facility] Comment on above: Order Comment: PLEAS E FAX TO Performed By: #### C MP, CBC #### [address] Lymphocytes/100 WBC (Bld) 35.6 % Normal . [facility] Comment on above: Order Comment: PLEAS E FAX TO Performed By: #### C MP, CBC #### [address] MCH (RBC) [Entitic mass] 30.5 pg Normal 27.5-35.2 [facility] Comment on above: Order Comment: PLEAS E FAX TO Performed By: #### C MP, CBC #### [address] MCV (RBC) [Entitic vol] 93.1 fL Normal 83.5-101 [facility] Comment on above: Order Comment: PLEAS E FAX TO Performed By: #### C MP, CBC #### [address] Mean Corpuscular HGB Conc 32.7 g/dL Normal 32.5-35.6 [facility] Comment on above: Order Comment: PLEAS E FAX TO Performed By: #### C MP, CBC #### [place] [address] [place] Monocytes (Bld) [#/Vol] 0.7 10*3/uL Normal 0.0-0.8 [facility] Comment on above: Order Comment: PLEAS E FAX TO Performed By: #### C MP, CBC #### [place] [address] [place] Monocytes/100 WBC (Bld) 14.1 % Normal . [facility] Comment on above: Order Comment: PLEAS E FAX TO Performed By: #### C MP, CBC #### [facility] [address] [place] [address] [place] Neutrophils (Bld) [#/Vol] 2.3 10*3/uL Normal 1.8-7.7 [facility] Comment on above: Order Comment: PLEAS E FAX TO Performed By: #### C MP, CBC #### [address] Neutrophils/100 WBC (Bld) 46.4 % Normal . [facility] Comment on above: Order Comment: PLEAS E FAX TO Performed By: #### C MP, CBC #### [facility] [address] [place] [address] [place] Nucleated RBC/100 WBC (Bld) [Ratio] 0.2 % Normal 0-0.5 [facility] Comment on above: Order Comment: PLEAS E FAX TO Performed By: #### C MP, CBC #### [facility] [address] [place] [address] Platelet mean volume (Bld) [Entitic vol] 10.0 fL Normal 6.6-10.1 [facility] Comment on above: Order Comment: PLEAS E FAX TO Performed By: #### C MP, CBC #### [facility] [address] [place] [address] [place] Platelets (Bld) [#/Vol] 137 10*3/uL Low 150-450 [facility] Comment on above: Order Comment: PLEAS E FAX TO Performed By: #### C MP, CBC #### [facility] [address] [place] [address] [place] RBC (Bld) [#/Vol] 3.95 10*6/uL Normal 3.90-5.60 [facility] Comment on above: Order Comment: PLEAS E FAX TO Performed By: #### C MP, CBC #### [facility] [address] [place] [address] WBC (Bld) [#/Vol] 5.0 10*3/uL Normal 4.5-11.0 [facility] Comment on above: Order Comment: PLEAS E FAX TO Performed By: #### C MP, CBC #### [facility] [address] [place] [address] Comprehensive Metabolic Pane navin 04-18-2021 Albumin [Mass/Vol] 2.9 g/dL Low 3.2-5.5 [facility] Comment on above: Order Comment: PLEAS E FAX TO Performed By: #### C MP, CBC #### [facility] [address] [place] [address] Albumin/Globulin [Mass ratio] 1.2 {ratio} Normal [facility] Comment on above: Order Comment: PLEAS E FAX TO Performed By: #### C MP, CBC #### [facility] [address] [place] [address] ALP [Catalytic activity/Vol] 50 U/L Normal 32-92 [facility] Comment on above: Order Comment: PLEAS E FAX TO Result Comment: PERF ORMED BY: [place] [address] PATHOLOGIST SHOE LAY OUT PLANNER DAKOTAH SMITH M.D. Performed By: #### C MP, CBC #### [facility] [address] [place] [address] ALT [Catalytic activity/Vol] 12 U/L Normal 10-60 [facility] Comment on above: Order Comment: PLEAS E FAX TO Performed By: #### C MP, CBC #### [facility] [address] [place] [address] AST [Catalytic activity/Vol] 14 U/L Normal 10-42 [facility] Comment on above: Order Comment: PLEAS E FAX TO Performed By: #### C MP, CBC #### [facility] [address] Bilirubin [Mass/Vol] 0.3 mg/dL Normal 0.3-1.2 [facility] Comment on above: Order Comment: PLEAS E FAX TO Performed By: #### C MP, CBC #### [facility] [address] Calcium [Mass/Vol] 8.8 mg/dL Normal 8.2-10.2 [facility] Comment on above: Order Comment: PLEAS E FAX TO Performed By: #### C MP, CBC #### [facility] [address] [place] [address] Chloride [Moles/Vol] 105 mmol/L Normal 95-114 [facility] Comment on above: Order Comment: PLEAS E FAX TO Performed By: #### C MP, CBC #### [facility] [address] [place] [address] [place] CO2 [Moles/Vol] 24.5 mmol/L Normal 22.0-30.0 [facility] Comment on above: Order Comment: PLEAS E FAX TO Performed By: #### C MP, CBC #### [facility] [address] [place] [address] [place] Creatinine [Mass/Vol] 1.13 mg/dL Normal 0.64-1.27 [facility] Comment on above: Order Comment: PLEAS E FAX TO Performed By: #### C MP, CBC #### [facility] [address] [place] [address] [place] Estimated GFR ( Mary Jo > 60 Normal [facility] Comment on above: Order Comment: PLEAS E FAX TO Result Comment: GFR estimated reference range: According to KDOQI guidelines, <60 ml/min/1.73m2 is sufficient to diagnose a patient with chronic kidney disease. Performed By: #### C MP, CBC #### [address] Estimated GFR (Non- Am > 60 [facility] Comment on above: Order Comment: PLEAS E FAX TO Performed By: #### C MP, CBC #### [address] Globulin (S) [Mass/Vol] 2.5 g/dL [facility] Comment on above: Order Comment: PLEAS E FAX TO Performed By: #### C MP, CBC #### [address] Glucose [Mass/Vol] 108 mg/dL High 70-100 [facility] Comment on above: Order Comment: PLEAS E FAX TO Result Comment: [place] om Glucose Reference Range is dependent on time and content of last meal. Glucose of more than 200 mg/dL in a nonstressed, ambulatory subject supports the diagnosis of Diabetes Mellitus. ADA recommended reference range Performed By: #### C MP, CBC #### [address] Potassium [Moles/Vol] 3.8 mmol/L Normal 3.5-5.1 [facility] Comment on above: Order Comment: PLEAS E FAX TO Performed By: #### C MP, CBC #### [place] [address] [place] Protein [Mass/Vol] 5.4 g/dL Low 6.1-7.9 [facility] Comment on above: Order Comment: PLEAS E FAX TO Performed By: #### C MP, CBC #### [place] [address] [place] Sodium [Moles/Vol] 138 mmol/L Normal 136-146 [facility] Comment on above: Order Comment: PLEAS E FAX TO Performed By: #### C MP, CBC #### [facility] [address] [place] [id number] [facility] Urea nitrogen [Mass/Vol] 16 mg/dL Normal 9- [facility] Comment on above: Order Comment: PLEAS E FAX TO Performed By: #### C MP, CBC #### [facility] [address] [place] [id number] [facility] Progress Noteson 04-02-2021 Precision Thread Grinder Operator Authentication Interface Message Text Normal [facility] [employer] [facility] Progress Noteson 04-01-2021 Precision Thread Grinder Operator Authentication Interface Message Text Patient was identified by name and date of . Lennice Hampton Short leg cast applied. Pins care and extra gauze applied. Care and instructions provided. Normal [facility] [employer] [facility] Precision Thread Grinder Operator Authentication Interface Message Text Patient at risk for falls:Yes Falls Risk protocol implemented: Yes wheelchair in locked position when not in use for transport Normal [facility] [employer] [facility] Patient Instructionson 03-18 Precision Thread Grinder Operator Authentication Interface Message Text Normal [facility] [employer] [facility] Progress Noteson 03-18-2021 Precision Thread Grinder Operator Authentication Interface Message Text Normal [facility] [employer] [facility] Precision Thread Grinder Operator Authentication Interface Message Text Patient was identified by name and date of . Rehab Zoqash .Patient at risk for falls:No Falls Risk protocol implemented: No Normal [facility] [employer] [facility] Progress Noteson 03-12-2021 Precision Thread Grinder Operator Authentication Interface Message Text Normal [facility] [employer] [facility] Progress Noteson 03-11-2021 Precision Thread Grinder Operator Authentication Interface Message Text Patient was identified by name and date of . Lennice Hampton Suture removal. Short leg cast applied to LLE over fixator pins. Care and instructions provided. Normal [facility] [employer] [facility] Telephone Encounteron 2020 Precision Thread Grinder Operator Authentication Interface Message Text Normal [facility] [employer] [facility] BASIC METABOLIC PANELon Anion gap [Moles/Vol] 13 mmol/L Normal - [facility] [employer] [facility] Comment on above: Performed By: #### C H8 ####[facility] [id number] [place], [place], Calcium [Mass/Vol] 8.9 mg/dL Normal 8.4-10.4 [facility] Comment on above: Performed By: #### C H8 ####S PATHOLOGY [id number] [place], [place], Chloride [Moles/Vol] 104 mmol/L Normal 97-111 [facility] Comment on above: Performed By: #### C H8 ####S PATHOLOGY [id number] [place], [place], CO2 [Moles/Vol] 25 mmol/L Normal 21-30 [facility] Comment on above: Performed By: #### C H8 ####[facility] PATHOLOGY [id number] [place], [place], Creatinine [Mass/Vol] 0.99 mg/dL Normal 0.80-1.30 [facility] Comment on above: Performed By: #### C H8 ####[facility] PATHOLOGY [id number] [place], [place], ESTIMATED GFR (CKD-EPI) 75 mL/min/1.73sqm Normal >=60 [facility] Comment on above: Performed By: #### C H8 ####S PATHOLOGY [id number] [place], [place], Glucose [Mass/Vol] 101 mg/dL Normal 80-116 [facility] Comment on above: Performed By: #### C H8 ####S PATHOLOGY [id number] [place], [place], Potassium [Moles/Vol] 4.1 mmol/L Normal 3.3-5.3 [facility] Comment on above: Performed By: #### C H8 ####S PATHOLOGY [id number] [place], Sodium [Moles/Vol] 138 mmol/L Normal 135-148 [facility] Comment on above: Performed By: #### C H8 ####S PATHOLOGY [id number] [place], Urea nitrogen [Mass/Vol] 19 mg/dL Normal 8-22 [facility] Comment on above: Performed By: #### C H8 ####[facility] [id number] [place], [place], Care Plan Noteon 02-28-2021 Precision Thread Grinder Operator Authentication Interface Message Text Normal [facility] DIGOXINon 02-28-2021 DIG 0.78 ng/mL Low 0.80-2.00 [facility] Comment on above: Performed By: #### D IG ####[facility] [id number] [place], [place], Discharge Planning Noteon Prec[employer] Grinder Operator Authentication Interface Message Text Normal [facility] Progress Noteson 02-28-2021 Precision Thread Grinder Operator Authentication Interface Message Text Report called to next facility to [facility]. Phone number provided to outside facility for any further questions. Reporting off to next shift. Normal [facility] Precision Thread Grinder Operator Authentication Interface Message Text Normal [facility] BASIC METABOLIC PANELon 01-31 Anion gap [Moles/Vol] 13 mmol/L Normal 5-13 [facility] Comment on above: Performed By: #### C H8, MG ####[facility] [id number] [place], Calcium [Mass/Vol] 8.8 mg/dL Normal 8.4-10.4 [facility] Comment on above: Performed By: #### C H8, MG ####[facility] [id number] [place], Chloride [Moles/Vol] 104 mmol/L Normal 97-111 [facility] Comment on above: Performed By: #### C H8, MG ####[facility] [id number] [place], CO2 [Moles/Vol] 25 mmol/L Normal 21-30 [facility] Comment on above: Performed By: #### C H8, MG ####[facility] [id number] [place], Creatinine [Mass/Vol] 1.00 mg/dL Normal 0.80-1.30 [facility] Comment on above: Performed By: #### C H8, MG ####[facility] [id number] [place], ESTIMATED GFR (CKD-EPI) 74 mL/min/1.73sqm Normal >=60 [facility] Comment on above: Performed By: #### Austyn Tamez, MG ####[facility] [id number] [place], Glucose [Mass/Vol] 108 mg/dL Normal 80-116 [facility] Comment on above: Performed By: #### Austyn Tamez, MG ####[facility] [id number] [place], Potassium [Moles/Vol] 4.3 mmol/L Normal 3.3-5.3 [facility] Comment on above: Performed By: #### Austyn Tamez, MG ####S PATHOLOGY [id number] [place], Sodium [Moles/Vol] 138 mmol/L Normal 135-148 [facility] Comment on above: Performed By: #### Austyn Tamez, MG ####S PATHOLOGY [id number] [place], Urea nitrogen [Mass/Vol] 20 mg/dL Normal 8-22 [facility] Comment on above: Performed By: #### Austyn Saleh8, MG ####[facility] [id number] [place], COMPLETE BLOOD COUNTon 02-27 Erythrocyte distribution width (RBC) [Ratio] 15.1 % High 11.5-14.5 [facility] Comment on above: Performed By: #### C BC ####[facility] [id number] [place], Hematocrit (Bld) [Volume fraction] 30.9 % Low 41.0-53.0 [facility] Comment on above: Performed By: #### C BC ####[facility] [id number] [place], Hemoglobin (Bld) [Mass/Vol] 10.3 g/dL Low 13.9-16.3 [facility] Comment on above: Performed By: #### C BC ####[facility] PATHOLOGY [id number] [place], MCH (RBC) [Entitic mass] 31.8 pg Normal 26.0-34.0 [facility] Comment on above: Performed By: #### C BC ####S PATHOLOGY [id number] [place], MCHC (RBC) [Mass/Vol] 33.3 g/dL Normal 32.0-35.9 [facility] Comment on above: Performed By: #### C BC ####[facility] PATHOLOGY [id number] [place], MCV (RBC) [Entitic vol] 95 fL Normal 80-100 [facility] Comment on above: Performed By: #### C BC ####[facility] PATHOLOG[facility] [id number] [place], Platelet mean volume (Bld) [Entitic vol] 10.2 fL Normal 7.5-11.2 [facility] Comment on above: Performed By: #### C BC ####[facility] PATHOLOG[facility] [id number] [place], Platelets (Bld) [#/Vol] 209 10*3/uL Normal 150-400 [facility] Comment on above: Performed By: #### C BC ####[facility] PATHOLOGY [id number] [place], RBC (Bld) [#/Vol] 3.24 10*6/uL Low 4.50-5.90 [facility] Comment on above: Performed By: #### C BC ####[facility] PATHOLOGY [id number] [place], WBC (Bld) [#/Vol] 5.2 10*3/uL Normal 4.5-11.5 [facility] Comment on above: Performed By: #### C BC ####S PATHOLOGY [id number] [place], Care Plan Noteon 02-27-2021 [employer] Operator Authentication Interface Message Text Normal [facility] Consultson 02-27-2021 [employer] Operator Authentication Interface Message Text Normal [facility] [employer] Gr[employer] Operator Authentication Interface Message Text Normal [facility] MAGNESIUMon 02-27-2021 Magnesium [Mass/Vol] 2.3 mg/dL Normal 1.6-2.8 [facility] Comment on above: Performed By: #### C H8, MG ####S PATHOLOGY [id number] [place], [place], Progress Noteson 02-27-2021 [employer] Gr[employer] Operator Authentication Interface Message Text Normal [facility] [employer] Grinder Operator Authentication Interface Message Text Normal [facility] [employer] Grinder Operator Authentication Interface Message Text Normal [facility] BASIC METABOLIC PANELon 01-30 Anion gap [Moles/Vol] 14 mmol/L High 5-13 [facility] Comment on above: Performed By: #### Rajiv Roque, CH8 ####S PATHOLOGY [id number] [place], Calcium [Mass/Vol] 9.0 mg/dL Normal 8.4-10.4 [facility] Comment on above: Performed By: #### Rajiv Roque, CH8 ####S PATHOLOGY [id number] [place], Chloride [Moles/Vol] 103 mmol/L Normal 97-111 [facility] Comment on above: Performed By: #### Rajiv Roque, CH8 ####S PATHOLOGY [id number] [place], CO2 [Moles/Vol] 24 mmol/L Normal 21-30 [facility] Comment on above: Performed By: #### Rajiv Roque, CH8 ####S PATHOLOGY [id number] [place], Creatinine [Mass/Vol] 1.00 mg/dL Normal 0.80-1.30 [facility] Comment on above: Performed By: #### Rajiv Roque, CH8 ####S PATHOLOGY [id number] [place], ESTIMATED GFR (CKD-EPI) 74 mL/min/1.73sqm Normal >=60 [facility] Comment on above: Performed By: #### Rajiv Roque, CH8 ####S PATHOLOGY [id number] [place], Glucose [Mass/Vol] 103 mg/dL Normal 80-116 [facility] Comment on above: Performed By: #### Rajiv Roque, CH8 ####S PATHOLOGY [id number] [place], Potassium [Moles/Vol] 4.3 mmol/L Normal 3.3-5.3 [facility] Comment on above: Performed By: #### Rajiv Roque, CH8 ####[facility] PATHOLOGY [id number] [place], Sodium [Moles/Vol] 137 mmol/L Normal 135-148 [facility] Comment on above: Performed By: #### Rajiv Roque, CH8 ####[facility] PATHOLOGY [id number] [place], Urea nitrogen [Mass/Vol] 17 mg/dL Normal 8-22 [facility] Comment on above: Performed By: #### Rajiv Roque, CH8 ####[facility] PATHOLOGY [id number] [place], COMPLETE BLOOD COUNTon 02-26 Erythrocyte distribution width (RBC) [Ratio] 14.6 % High 11.5-14.5 [facility] Comment on above: Performed By: #### C BC ####[facility] PATHOLOGY [id number] [place], Hematocrit (Bld) [Volume fraction] 30.7 % Low 41.0-53.0 [facility] Comment on above: Performed By: #### C BC ####[facility] PATHOLOGY [id number] [place], Hemoglobin (Bld) [Mass/Vol] 10.5 g/dL Low 13.9-16.3 [facility] Comment on above: Performed By: #### C BC ####[facility] PATHOLOGY [id number] [place], MCH (RBC) [Entitic mass] 31.7 pg Normal 26.0-34.0 [facility] Comment on above: Performed By: #### C BC ####S PATHOLOGY [id number] [place], MCHC (RBC) [Mass/Vol] 34.1 g/dL Normal 32.0-35.9 [facility] Comment on above: Performed By: #### C BC ####S PATHOLOGY [id number] [place], MCV (RBC) [Entitic vol] 93 fL Normal 80-100 [facility] Comment on above: Performed By: #### C BC ####S PATHOLOGY [id number] [place], Platelet mean volume (Bld) [Entitic vol] 10.3 fL Normal 7.5-11.2 [facility] Comment on above: Performed By: #### C BC ####[facility] PATHOLOGY [id number] [place], [place], Platelets (Bld) [#/Vol] 205 10*3/uL Normal 150-400 [facility] Comment on above: Performed By: #### C BC ####[facility] PATHOLOGY [id number] [place], RBC (Bld) [#/Vol] 3.30 10*6/uL Low 4.50-5.90 [facility] Comment on above: Performed By: #### C BC ####[facility] PATHOLOGY [id number] [place], WBC (Bld) [#/Vol] 5.3 10*3/uL Normal 4.5-11.5 [facility] Comment on above: Performed By: #### C BC ####S PATHOLOGY [id number] [place], [place], Care Plan Noteon 02-26-2021 [employer] Authentication Interface Message Text Normal [facility] Consultson 02-26-2021 [employer] Operator Authentication Interface Message Text Normal [facility] [employer] Operator Authentication Interface Message Text Normal [facility] MAGNESIUMon 02-26-2021 Magnesium [Mass/Vol] 2.2 mg/dL Normal 1.6-2.8 [facility] Comment on above: Performed By: #### Rajiv Roque, CH8 ####S PATHOLOGY [id number] [place], [place], Progress Noteson 02-26-2021 [employer] Operator Authentication Interface Message Text Normal [facility] [employer] Operator Authentication Interface Message Text Normal [facility] [employer] Operator Authentication Interface Message Text Normal [facility] [employer] Operator Authentication Interface Message Text Normal [facility] BASIC METABOLIC PANELon 06-2 Anion gap [Moles/Vol] 15 mmol/L High 5-13 [facility] Comment on above: Performed By: #### Rajiv Roque, ALESHA8 ####S PATHOLOGY [id number] [place], Calcium [Mass/Vol] 9.7 mg/dL Normal 8.4-10.4 [facility] Comment on above: Performed By: #### Rajiv Roque, ALESHA8 ####S PATHOLOGY [id number] [place], Chloride [Moles/Vol] 112 mmol/L High 97-111 [facility] Comment on above: Performed By: #### Rajiv Roque, ALESHA8 ####S PATHOLOGY [id number] [place], CO2 [Moles/Vol] 27 mmol/L Normal 21-30 [facility] Comment on above: Performed By: #### Rajiv Roque, ALESHA8 ####S PATHOLOGY [id number] [place], Creatinine [Mass/Vol] 0.96 mg/dL Normal 0.80-1.30 [facility] Comment on above: Performed By: #### Rajiv Roque, CH8 ####S PATHOLOGY [id number] [place], ESTIMATED GFR (CKD-EPI) 78 mL/min/1.73sqm Normal >=60 [facility] Comment on above: Performed By: #### Rajiv Roque, CH8 ####[facility] [id number] [place], Glucose [Mass/Vol] 113 mg/dL Normal 80-116 [facility] Comment on above: Performed By: #### Rajiv Roque, CH8 ####S PATHOLOGY [id number] [place], Potassium [Moles/Vol] 4.9 mmol/L Normal 3.3-5.3 [facility] Comment on above: Performed By: #### Rajiv Roque, CH8 ####S PATHOLOGY [id number] [place], Sodium [Moles/Vol] 149 mmol/L High 135-148 [facility] Comment on above: Performed By: #### Rajiv Roque, CH8 ####[facility] PATHOLOGY [id number] [place], Urea nitrogen [Mass/Vol] 16 mg/dL Normal 8-22 [facility] Comment on above: Performed By: #### Rajiv Roque, ALESHA8 ####[facility] PATHOLOGY [id number] [place], COMPLETE BLOOD COUNTon 02-25 Erythrocyte distribution width (RBC) [Ratio] 14.5 % Normal 11.5-14.5 [facility] Comment on above: Performed By: #### C BC ####[facility] PATHOLOGY [id number] [place], Hematocrit (Bld) [Volume fraction] 29.6 % Low 41.0-53.0 [facility] Comment on above: Performed By: #### C BC ####[facility] PATHOLOGY [id number] [place], Hemoglobin (Bld) [Mass/Vol] 9.9 g/dL Low 13.9-16.3 [facility] Comment on above: Performed By: #### C BC ####S PATHOLOGY [id number] [place], MCH (RBC) [Entitic mass] 31.2 pg Normal 26.0-34.0 [facility] Comment on above: Performed By: #### C BC ####S PATHOLOGY [id number] [place], MCHC (RBC) [Mass/Vol] 33.6 g/dL Normal 32.0-35.9 [facility] Comment on above: Performed By: #### C BC ####S PATHOLOGY [id number] [place], MCV (RBC) [Entitic vol] 93 fL Normal 80-100 [facility] Comment on above: Performed By: #### C BC ####[facility] [id number] [place], Platelet mean volume (Bld) [Entitic vol] 9.8 fL Normal 7.5-11.2 [facility] Comment on above: Performed By: #### C BC ####S PATHOLOGY [id number] [place], Platelets (Bld) [#/Vol] 207 10*3/uL Normal 150-400 [facility] Comment on above: Performed By: #### C BC ####[facility] PATHOLOGY [id number] [place], RBC (Bld) [#/Vol] 3.19 10*6/uL Low 4.50-5.90 [facility] Comment on above: Performed By: #### C BC ####[facility] PATHOLOGY [id number] [place], WBC (Bld) [#/Vol] 5.6 10*3/uL Normal 4.5-11.5 [facility] Comment on above: Performed By: #### C BC ####[facility] PATHOLOGY [id number] [place], Care Plan Noteon 02-25-2021 [employer] Operator Authentication Interface Message Text Normal [facility] Consultson 02-25-2021 [employer] Operator Authentication Interface Message Text Normal [facility] [employer] Operator Authentication Interface Message Text Normal [facility] MAGNESIUMon 02-25-2021 Magnesium [Mass/Vol] 2.1 mg/dL Normal 1.6-2.8 [facility] Comment on above: Performed By: #### M Mya, CH8 ####S PATHOLOGY [id number] [place], Nursing Noteon 02-25-2021 [employer] Operator Authentication Interface Message Text Normal [facility] Progress Noteson 02-25-2021 [employer] Operator Authentication Interface Message Text Normal [facility] [employer] Operator Authentication Interface Message Text Normal [facility] BASIC METABOLIC PANELon - Anion gap [Moles/Vol] 14 mmol/L High 5-13 [facility] Comment on above: Performed By: #### C H8, MG ####[facility] [id number] [place], Calcium [Mass/Vol] 9.0 mg/dL Normal 8.4-10.4 [facility] Comment on above: Performed By: #### C H8, MG ####[facility] [id number] [place], Chloride [Moles/Vol] 102 mmol/L Normal 97-111 [facility] Comment on above: Performed By: #### C H8, MG ####[facility] [id number] [place], CO2 [Moles/Vol] 23 mmol/L Normal 21-30 [facility] Comment on above: Performed By: #### C H8, MG ####[facility] [id number] [place], Creatinine [Mass/Vol] 0.94 mg/dL Normal 0.80-1.30 [facility] Comment on above: Performed By: #### C H8, MG ####[facility] [id number] [place], ESTIMATED GFR (CKD-EPI) 80 mL/min/1.73sqm Normal >=60 [facility] Comment on above: Performed By: #### C H8, MG ####[facility] [id number] [place], Glucose [Mass/Vol] 108 mg/dL Normal 80-116 [facility] Comment on above: Performed By: #### C H8, MG ####[facility] [id number] [place], Potassium [Moles/Vol] 4.3 mmol/L Normal 3.3-5.3 [facility] Comment on above: Performed By: #### C H8, MG ####S PATHOLOGY [id number] [place], Sodium [Moles/Vol] 135 mmol/L Normal 135-148 [facility] Comment on above: Performed By: #### C H8, MG ####[facility] PATHOLOGY [id number] [place], Urea nitrogen [Mass/Vol] 15 mg/dL Normal 8-22 [facility] Comment on above: Performed By: #### C H8, MG ####[facility] PATHOLOGY [id number] [place], COMPLETE BLOOD COUNTon 02-24 Erythrocyte distribution width (RBC) [Ratio] 14.9 % High 11.5-14.5 [facility] Comment on above: Performed By: #### C BC ####[facility] PATHOLOGY [id number] [place], Hematocrit (Bld) [Volume fraction] 28.2 % Low 41.0-53.0 [facility] Comment on above: Performed By: #### C BC ####[facility] PATHOLOGY [id number] [place], Hemoglobin (Bld) [Mass/Vol] 9.8 g/dL Low 13.9-16.3 [facility] Comment on above: Performed By: #### C BC ####[facility] PATHOLOGY [id number] [place], MCH (RBC) [Entitic mass] 33.0 pg Normal 26.0-34.0 [facility] Comment on above: Performed By: #### C BC ####[facility] PATHOLOGY [id number] [place], MCHC (RBC) [Mass/Vol] 34.7 g/dL Normal 32.0-35.9 [facility] Comment on above: Performed By: #### C BC ####S PATHOLOGY [id number] [place], MCV (RBC) [Entitic vol] 95 fL Normal 80-100 [facility] Comment on above: Performed By: #### C BC ####S PATHOLOGY [id number] [place], Platelet mean volume (Bld) [Entitic vol] 10.1 fL Normal 7.5-11.2 [facility] Comment on above: Performed By: #### C BC ####S PATHOLOGY [id number] [place], Platelets (Bld) [#/Vol] 206 10*3/uL Normal 150-400 [facility] Comment on above: Performed By: #### C BC ####[facility] PATHOLOGY [id number] [place], RBC (Bld) [#/Vol] 2.96 10*6/uL Low 4.50-5.90 [facility] Comment on above: Performed By: #### C BC ####[facility] PATHOLOGY [id number] [place], WBC (Bld) [#/Vol] 5.8 10*3/uL Normal 4.5-11.5 [facility] Comment on above: Performed By: #### C BC ####[facility] PATHOLOGY [id number] [place], Care Plan Noteon 02-24-2021 [employer] Operator Authentication Interface Message Text Normal [facility] MAGNESIUMon 02-24-2021 Magnesium [Mass/Vol] 1.9 mg/dL Normal 1.6-2.8 [facility] Comment on above: Performed By: #### C H8, MG ####S PATHOLOGY [id number] [place], Progress Noteson 02-24-2021 [employer] Operator Authentication Interface Message Text Normal [facility] BASIC METABOLIC PANELon 01-30 Anion gap [Moles/Vol] 15 mmol/L High 5-13 [facility] Comment on above: Performed By: #### M G, CH8 ####S PATHOLOGY [id number] [place], Calcium [Mass/Vol] 8.9 mg/dL Normal 8.4-10.4 [facility] Comment on above: Performed By: #### Rajiv Roque, CH8 ####S PATHOLOGY [id number] [place], Chloride [Moles/Vol] 105 mmol/L Normal 97-111 [facility] Comment on above: Performed By: #### Rajiv Roque, CH8 ####S PATHOLOGY [id number] [place], CO2 [Moles/Vol] 22 mmol/L Normal 21-30 [facility] Comment on above: Performed By: #### Rajiv Roque, CH8 ####S PATHOLOGY [id number] [place], Creatinine [Mass/Vol] 0.87 mg/dL Normal 0.80-1.30 [facility] Comment on above: Performed By: #### Rajiv Roque, CH8 ####[facility] PATHOLOGY [id number] [place], ESTIMATED GFR (CKD-EPI) 85 mL/min/1.73sqm Normal >=60 [facility] Comment on above: Performed By: #### Rajiv Roque, CH8 ####[facility] PATHOLOGY [id number] [place], Glucose [Mass/Vol] 103 mg/dL Normal 80-116 [facility] Comment on above: Performed By: #### Rajiv Roque, CH8 ####S PATHOLOGY [id number] [place], Potassium [Moles/Vol] 4.6 mmol/L Normal 3.3-5.3 [facility] Comment on above: Performed By: #### Rajiv Roque, CH8 ####S PATHOLOGY [id number] [place], Sodium [Moles/Vol] 137 mmol/L Normal 135-148 [facility] Comment on above: Performed By: #### Rajiv Roque, ALESHA8 ####S PATHOLOGY [id number] [place], Urea nitrogen [Mass/Vol] 20 mg/dL Normal 8-22 [facility] Comment on above: Performed By: #### M G, CH8 ####[facility] PATHOLOGY [id number] [place], COMPLETE BLOOD COUNTon 02-23 Erythrocyte distribution width (RBC) [Ratio] 15.1 % High 11.5-14.5 [facility] Comment on above: Performed By: #### C BC ####[facility] PATHOLOGY [id number] [place], Hematocrit (Bld) [Volume fraction] 29.0 % Low 41.0-53.0 [facility] Comment on above: Performed By: #### C BC ####[facility] PATHOLOGY [id number] [place], Hemoglobin (Bld) [Mass/Vol] 9.6 g/dL Low 13.9-16.3 [facility] Comment on above: Performed By: #### C BC ####[facility] PATHOLOGY [id number] [place] [address], MCH (RBC) [Entitic mass] 31.6 pg Normal 26.0-34.0 [facility] Comment on above: Performed By: #### C BC ####[facility] PATHOLOGY [id number] [place], MCHC (RBC) [Mass/Vol] 33.1 g/dL Normal 32.0-35.9 [facility] Comment on above: Performed By: #### C BC ####[facility] PATHOLOGY [id number] [place], MCV (RBC) [Entitic vol] 95 fL Normal 80-100 [facility] Comment on above: Performed By: #### C BC ####[facility] PATHOLOGY [id number] [place], Platelet mean volume (Bld) [Entitic vol] 10.4 fL Normal 7.5-11.2 [facility] Comment on above: Performed By: #### C BC ####[facility] PATHOLOGY [id number] [place], Platelets (Bld) [#/Vol] 212 10*3/uL Normal 150-400 [facility] Comment on above: Performed By: #### C BC ####S PATHOLOGY [id number] [place], RBC (Bld) [#/Vol] 3.04 10*6/uL Low 4.50-5.90 [facility] Comment on above: Performed By: #### C BC ####[facility] PATHOLOGY [id number] [place], WBC (Bld) [#/Vol] 6.8 10*3/uL Normal 4.5-11.5 [facility] Comment on above: Performed By: #### C BC ####[facility] PATHOLOGY [id number] [place], Care Plan Noteon 02-23-2021 [employer] Operator Authentication Interface Message Text Normal [facility] MAGNESIUMon 02-23-2021 Magnesium [Mass/Vol] 2.0 mg/dL Normal 1.6-2.8 [facility] Comment on above: Performed By: #### Rajiv Roque CH8 ####[facility] PATHOLOGY [id number] [place] [address], Progress Noteson 02-23-2021 [employer] Operator Authentication Interface Message Text Normal [facility] BASIC METABOLIC PANELon 01-30 Anion gap [Moles/Vol] 13 mmol/L Normal 5-13 [facility] Comment on above: Performed By: #### Austyn H8, MG ####S PATHOLOGY [id number] [place], Calcium [Mass/Vol] 8.7 mg/dL Normal 8.4-10.4 [facility] Comment on above: Performed By: #### Austyn H8, MG ####S PATHOLOGY [id number] [place], Chloride [Moles/Vol] 106 mmol/L Normal 97-111 [facility] Comment on above: Performed By: #### Austyn H8, MG ####S PATHOLOGY [id number] [place], CO2 [Moles/Vol] 22 mmol/L Normal 21-30 [facility] Comment on above: Performed By: #### C H8, MG ####S PATHOLOGY [id number] [place], Creatinine [Mass/Vol] 0.90 mg/dL Normal 0.80-1.30 [facility] Comment on above: Performed By: #### C H8, MG ####S PATHOLOGY [id number] [place], ESTIMATED GFR (CKD-EPI) 84 mL/min/1.73sqm Normal >=60 [facility] Comment on above: Performed By: #### C H8, MG ####S PATHOLOGY [id number] [place], Glucose [Mass/Vol] 97 mg/dL Normal 80-116 [facility] Comment on above: Performed By: #### C H8, MG ####S PATHOLOGY [id number] [place], Potassium [Moles/Vol] 4.2 mmol/L Normal 3.3-5.3 [facility] Comment on above: Performed By: #### C H8, MG ####S PATHOLOGY [id number] [place] [address], Sodium [Moles/Vol] 137 mmol/L Normal 135-148 [facility] Comment on above: Performed By: #### C H8, MG ####S PATHOLOGY [id number] [place], Urea nitrogen [Mass/Vol] 17 mg/dL Normal 8-22 [facility] Comment on above: Performed By: #### C H8, MG ####[facility] [id number] [place], COMPLETE BLOOD COUNTon 02-22 Erythrocyte distribution width (RBC) [Ratio] 15.0 % High 11.5-14.5 [facility] Comment on above: Performed By: #### C BC ####[facility] [id number] [place] [address], Hematocrit (Bld) [Volume fraction] 27.4 % Low 41.0-53.0 [facility] Comment on above: Performed By: #### C BC ####[facility] PATHOLOG[facility] [id number] [place], Hemoglobin (Bld) [Mass/Vol] 9.2 g/dL Low 13.9-16.3 [facility] Comment on above: Performed By: #### C BC ####[facility] PATHOLOG[facility] [id number] [place], MCH (RBC) [Entitic mass] 31.4 pg Normal 26.0-34.0 [facility] Comment on above: Performed By: #### C BC ####[facility] PATHOLOGY [id number] [place] [address], MCHC (RBC) [Mass/Vol] 33.6 g/dL Normal 32.0-35.9 [facility] Comment on above: Performed By: #### C BC ####[facility] PATHOLOGY [id number] [place] [address], MCV (RBC) [Entitic vol] 93 fL Normal 80-100 [facility] Comment on above: Performed By: #### C BC ####[facility] PATHOLOGY [id number] [place] [address], Platelet mean volume (Bld) [Entitic vol] 9.9 fL Normal 7.5-11.2 [facility] Comment on above: Performed By: #### C BC ####[facility] PATHOLOG[facility] [id number] [place], Platelets (Bld) [#/Vol] 204 10*3/uL Normal 150-400 [facility] Comment on above: Performed By: #### C BC ####[facility] PATHOLOG[facility] [id number] [place], RBC (Bld) [#/Vol] 2.94 10*6/uL Low 4.50-5.90 [facility] Comment on above: Performed By: #### C BC ####[facility]OLOG[facility] [id number] [place], WBC (Bld) [#/Vol] 6.7 10*3/uL Normal 4.5-11.5 [facility] Comment on above: Performed By: #### C BC ####[facility] [id number] [place], Care Plan Noteon 02-22-2021 [employer] Operator Authentication Interface Message Text Normal [facility] Consultson 02-22-2021 [employer] Operator Authentication Interface Message Text Normal [facility] MAGNESIUMon 02-22-2021 Magnesium [Mass/Vol] 2.0 mg/dL Normal 1.6-2.8 [facility] Comment on above: Performed By: #### C H8, MG ####[facility] [id number] [place], Progress Noteson 02-22-2021 [employer] Operator Authentication Interface Message Text Normal [facility] [employer] Operator Authentication Interface Message Text Normal [facility] [employer] Operator Authentication Interface Message Text Normal [facility] BASIC METABOLIC PANELon 01-30 Anion gap [Moles/Vol] 13 mmol/L Normal 5-13 [facility] Comment on above: Performed By: #### Austyn H8, MG ####[facility] [id number] [place], Calcium [Mass/Vol] 8.4 mg/dL Normal 8.4-10.4 [facility] Comment on above: Performed By: #### C H8, MG ####[facility] [id number] [place], Chloride [Moles/Vol] 107 mmol/L Normal 97-111 [facility] Comment on above: Performed By: #### C H8, MG ####[facility] [id number] [place], CO2 [Moles/Vol] 22 mmol/L Normal 21-30 [facility] Comment on above: Performed By: #### C H8, MG ####[facility] [id number] [place], Creatinine [Mass/Vol] 0.85 mg/dL Normal 0.80-1.30 [facility] Comment on above: Performed By: #### C H8, MG ####[facility] [id number] [place], ESTIMATED GFR (CKD-EPI) 86 mL/min/1.73sqm Normal >=60 [facility] Comment on above: Performed By: #### C H8, MG ####[facility] [id number] [place], Glucose [Mass/Vol] 107 mg/dL Normal 80-116 [facility] Comment on above: Performed By: #### C H8, MG ####[facility] [id number] [place], Potassium [Moles/Vol] 4.0 mmol/L Normal 3.3-5.3 [facility] Comment on above: Performed By: #### C H8, MG ####[facility] [id number] [place], Sodium [Moles/Vol] 138 mmol/L Normal 135-148 [facility] Comment on above: Performed By: #### C H8, MG ####[facility] [id number] [place], Urea nitrogen [Mass/Vol] 16 mg/dL Normal 8-22 [facility] Comment on above: Performed By: #### C H8, MG ####[facility] [id number] [place], COMPLETE BLOOD COUNTon 02-21 Erythrocyte distribution width (RBC) [Ratio] 15.2 % High 11.5-14.5 [facility] Comment on above: Performed By: #### C BC ####[facility] [id number] [place], [place], Hematocrit (Bld) [Volume fraction] 26.7 % Low 41.0-53.0 [facility] Comment on above: Performed By: #### C BC ####[facility] [id number] [place], [place], Hemoglobin (Bld) [Mass/Vol] 9.2 g/dL Low 13.9-16.3 [facility] Comment on above: Performed By: #### C BC ####[facility] PATHOLOGY [id number] [place], [place], MCH (RBC) [Entitic mass] 32.3 pg Normal 26.0-34.0 [facility] Comment on above: Performed By: #### C BC ####[facility] PATHOLOGY [id number] [place], MCHC (RBC) [Mass/Vol] 34.2 g/dL Normal 32.0-35.9 [facility] Comment on above: Performed By: #### C BC ####[facility] PATHOLOGY [id number] [place], MCV (RBC) [Entitic vol] 94 fL Normal 80-100 [facility] Comment on above: Performed By: #### C BC ####[facility] PATHOLOGY [id number] [place], Platelet mean volume (Bld) [Entitic vol] 10.2 fL Normal 7.5-11.2 [facility] Comment on above: Performed By: #### C BC ####[facility] PATHOLOGY [id number] [place], Platelets (Bld) [#/Vol] 204 10*3/uL Normal 150-400 [facility] Comment on above: Performed By: #### C BC ####[facility] PATHOLOGY [id number] [place], RBC (Bld) [#/Vol] 2.83 10*6/uL Low 4.50-5.90 [facility] Comment on above: Performed By: #### C BC ####[facility] PATHOLOGY [id number] [place], WBC (Bld) [#/Vol] 7.8 10*3/uL Normal 4.5-11.5 [facility] Comment on above: Performed By: #### C BC ####S PATHOLOGY [id number] [place], Care Plan Noteon 02-21-2021 [employer] Authentication Interface Message Text Normal [facility] Consultson 02-21-2021 [employer] Operator Authentication Interface Message Text Normal [facility] [employer] Operator Authentication Interface Message Text Normal [facility] [employer] Gr[employer] Operator Authentication Interface Message Text Normal [facility] MAGNESIUMon 02-21-2021 Magnesium [Mass/Vol] 2.1 mg/dL Normal 1.6-2.8 [facility] Comment on above: Performed By: #### C H8, MG ####[facility] [id number] [place], [place], Progress Noteson 02-21-2021 [employer] Operator Authentication Interface Message Text Per Trauma, unclear when pt is ready for DC. Pt accepted to [facility]. Please alert SW when pt is nearing DC. Pt will require a precert. Amada Saul [facility], DRESS FITTER [phone] Normal [facility] [employer] Grinder Operator Authentication Interface Message Text Normal [facility] [employer] Grinder Operator Authentication Interface Message Text Normal [facility] BASIC METABOLIC PANELon 01-30 Anion gap [Moles/Vol] 9 mmol/L Normal 5-13 [facility] Comment on above: Performed By: #### Rajiv Roque CH8 ####[facility] [id number] [place], Calcium [Mass/Vol] 8.5 mg/dL Normal 8.4-10.4 [facility] Comment on above: Performed By: #### Rajiv Roque, CH8 ####[facility] [id number] [place], Chloride [Moles/Vol] 104 mmol/L Normal 97-111 [facility] Comment on above: Performed By: #### Rajiv Roque, CH8 ####[facility] [id number] [place], CO2 [Moles/Vol] 24 mmol/L Normal 21-30 [facility] Comment on above: Performed By: #### Rajiv Roque, CH8 ####[facility] [id number] [place], Creatinine [Mass/Vol] 0.95 mg/dL Normal 0.80-1.30 [facility] Comment on above: Performed By: #### Rajiv Roque, CH8 ####S PATHOLOGY [id number] [place], ESTIMATED GFR (CKD-EPI) 79 mL/min/1.73sqm Normal >=60 [facility] Comment on above: Performed By: #### Rajiv Roque, CH8 ####S PATHOLOGY [id number] [place], Glucose [Mass/Vol] 112 mg/dL Normal 80-116 [facility] Comment on above: Performed By: #### Rajiv Roque, CH8 ####S PATHOLOGY [id number] [place], Potassium [Moles/Vol] 4.3 mmol/L Normal 3.3-5.3 [facility] Comment on above: Performed By: #### Rajiv Roque, CH8 ####S PATHOLOGY [id number] [place], Sodium [Moles/Vol] 133 mmol/L Low 135-148 [facility] Comment on above: Performed By: #### Rajiv Roque, CH8 ####S PATHOLOGY [id number] [place], Urea nitrogen [Mass/Vol] 16 mg/dL Normal 8-22 [facility] Comment on above: Performed By: #### Rajiv Roque, CH8 ####S PATHOLOGY [id number] [place], COMPLETE BLOOD COUNTon 02-20 Erythrocyte distribution width (RBC) [Ratio] 14.9 % High 11.5-14.5 [facility] Comment on above: Performed By: #### C BC ####S PATHOLOGY [id number] [place], Hematocrit (Bld) [Volume fraction] 30.1 % Low 41.0-53.0 [facility] Comment on above: Performed By: #### C BC ####S PATHOLOGY [id number] [place], Hemoglobin (Bld) [Mass/Vol] 10.1 g/dL Low 13.9-16.3 [facility] Comment on above: Performed By: #### C BC ####[facility] PATHOLOGY [id number] [place], MCH (RBC) [Entitic mass] 31.7 pg Normal 26.0-34.0 [facility] Comment on above: Performed By: #### C BC ####[facility] PATHOLOGY [id number] [place], MCHC (RBC) [Mass/Vol] 33.5 g/dL Normal 32.0-35.9 [facility] Comment on above: Performed By: #### C BC ####[facility] PATHOLOGY [id number] [place], MCV (RBC) [Entitic vol] 95 fL Normal 80-100 [facility] Comment on above: Performed By: #### C BC ####[facility] PATHOLOGY [id number] [place], Platelet mean volume (Bld) [Entitic vol] 10.1 fL Normal 7.5-11.2 [facility] Comment on above: Performed By: #### C BC ####[facility] PATHOLOGY [id number] [place], Platelets (Bld) [#/Vol] 225 10*3/uL Normal 150-400 [facility] Comment on above: Performed By: #### C BC ####[facility] PATHOLOGY [id number] [place], RBC (Bld) [#/Vol] 3.18 10*6/uL Low 4.50-5.90 [facility] Comment on above: Performed By: #### C BC ####[facility] PATHOLOGY [id number] [place], WBC (Bld) [#/Vol] 8.3 10*3/uL Normal 4.5-11.5 [facility] Comment on above: Performed By: #### C BC ####[facility] PATHOLOGY [id number] [place], Care Plan Noteon 02-20-2021 [employer] Operator Authentication Interface Message Text Normal [facility] Consultson 02-20-2021 [employer] Operator Authentication Interface Message Text Normal [facility] H AND Martin 02-20-2021 [employer] Operator Authentication Interface Message Text Normal [facility] MAGNESIUMon 02-20-2021 Magnesium [Mass/Vol] 1.8 mg/dL Normal 1.6-2.8 [facility] Comment on above: Performed By: #### JENNIFER Blum ####S PATHOLOGY [id number] [place], Procedureson 02-20-2021 [employer] Operator Authentication Interface Message Text Normal [facility] Progress Noteson 02-20-2021 [employer] Operator Authentication Interface Message Text Normal [facility] [employer] Operator Authentication Interface Message Text Entered in error. Normal [facility] [employer] Grinder Operator Authentication Interface Message Text Normal [facility] [employer] Operator Authentication Interface Message Text Normal [facility] Anesthesia Acute Painon 01-30 [employer] Operator Authentication Interface Message Text Normal [facility] Anesthesia Attestationon [employer] Operator Authentication Interface Message Text Normal [facility] Anesthesia Postprocedure Lucretia luationon 02-19-2021 [employer] Gr[employer] Operator Authentication Interface Message Text Normal [facility] [employer] Operator Authentication Interface Message Text Normal [facility] Anesthesia Procedure Noteson 02-19-2021 [employer] Operator Authentication Interface Message Text Normal [facility] Anesthesia Transfer Of Careo n 02-19-2021 [employer] Operator Authentication Interface Message Text Normal [facility] BASIC METABOLIC PANELon 01-30 Anion gap [Moles/Vol] 13 mmol/L Normal 5-13 [facility] Comment on above: Performed By: #### JENNIFER Blum ####[facility] [id number] [place], Calcium [Mass/Vol] 8.9 mg/dL Normal 8.4-10.4 [facility] Comment on above: Performed By: #### JENNIFER Blum ####[facility] [id number] [place], Chloride [Moles/Vol] 107 mmol/L Normal 97-111 [facility] Comment on above: Performed By: #### Rajiv Roque, CH8 ####S PATHOLOGY [id number] [place], CO2 [Moles/Vol] 21 mmol/L Normal 21-30 [facility] Comment on above: Performed By: #### Rajiv Roque, CH8 ####S PATHOLOGY [id number] [place], Creatinine [Mass/Vol] 1.00 mg/dL Normal 0.80-1.30 [facility] Comment on above: Performed By: #### Rajiv Roque, CH8 ####S PATHOLOGY [id number] [place], ESTIMATED GFR (CKD-EPI) 74 mL/min/1.73sqm Normal >=60 [facility] Comment on above: Performed By: #### Rajiv Roque, CH8 ####S PATHOLOGY [id number] [place], Glucose [Mass/Vol] 102 mg/dL Normal 80-116 [facility] Comment on above: Performed By: #### Rajiv Roque, CH8 ####S PATHOLOGY [id number] [place], Potassium [Moles/Vol] 4.3 mmol/L Normal 3.3-5.3 [facility] Comment on above: Performed By: #### Rajiv Roque, CH8 ####S PATHOLOGY [id number] [place], Sodium [Moles/Vol] 137 mmol/L Normal 135-148 [facility] Comment on above: Performed By: #### Rajiv Roque, CH8 ####S PATHOLOGY [id number] [place], Urea nitrogen [Mass/Vol] 23 mg/dL High 8-22 [facility] Comment on above: Performed By: #### Rajiv Roque, CH8 ####S PATHOLOGY [id number] [place], BLOOD GAS, ARTERIALon 2020 CR % O2 SAT > 99.4 Normal >=95.1 [facility] Comment on above: Performed By: #### C R GLU, CR COOX, CR ICA, CR BGA, CR LYTES, LACT ####[facility] PATHOLOGY [id number] [place] [address], CR MAYCOL -2.1 mmol/L Low -2.0-2.0 [facility] Comment on above: Performed By: #### C R GLU, CR COOX, CR ICA, CR BGA, CR LYTES, LACT ####[facility] PATHOLOGY [id number] [place] [address], CR PCO2 32.5 mm Hg Low 35.0-45.0 [facility] Comment on above: Performed By: #### C R GLU, CR COOX, CR ICA, CR BGA, CR LYTES, LACT ####[facility] PATHOLOGY [id number] [place] [address], CR PHA 7.429 Normal 7.35-7.45 [facility] Comment on above: Performed By: #### C R GLU, CR COOX, CR ICA, CR BGA, CR LYTES, LACT ####[facility] PATHOLOGY [id number] [place] [address], CR PO2 190 mm Hg High 80-100 mm Hg [facility] Comment on above: Performed By: #### C R GLU, CR COOX, CR ICA, CR BGA, CR LYTES, LACT ####[facility] PATHOLOGY [id number] [place] [address], HCO3 (Bld) [Moles/Vol] 21 mmol/L Low 22-28 e [facility] Comment on above: Performed By: #### C R GLU, CR COOX, CR ICA, CR BGA, CR LYTES, LACT ####[facility] PATHOLOGY [id number] [place] [address], Brief Operative Noteon 02-19 [employer] Operator Authentication Interface Message Text Normal [facility] CALCIUM, IONIZEDon CR ICA 1.12 mmol/L Normal 1.10-1.40 [facility] Comment on above: Performed By: #### C R GLU, CR COOX, CR ICA, CR BGA, CR LYTES, LACT ####[facility] PATHOLOGY [id number] [place] [address], CO-OXIMETERon 02-19-2021 CARBOXYHEMOGLOBIN 2.2 % Normal <3.0 [facility] Comment on above: Performed By: #### C R GLU, CR COOX, CR ICA, CR BGA, CR LYTES, LACT ####[facility] PATHOLOGY [id number] [place] [address], CR HBMET 1.4 % Normal <3.0 [facility] Comment on above: Performed By: #### C R GLU, CR COOX, CR ICA, CR BGA, CR LYTES, LACT ####[facility] PATHOLOGY [id number] [place] [address], Hematocrit (Bld) [Volume fraction] 31.1 % Low 42.0-52.0 [facility] Comment on above: Performed By: #### C R GLU, CR COOX, CR ICA, CR BGA, CR LYTES, LACT ####[facility] PATHOLOGY [id number] [place] [address], Hemoglobin (Bld) [Mass/Vol] 10.1 g/dL Low 14.0-18.0 [facility] Comment on above: Performed By: #### C R GLU, CR COOX, CR ICA, CR BGA, CR LYTES, LACT ####[facility] PATHOLOGY [id number] [place] [address], OXYHEMOGLOBIN 96.1 % Normal 95.0-100.0 [facility] Comment on above: Performed By: #### C R GLU, CR COOX, CR ICA, CR BGA, CR LYTES, LACT ####[facility] PATHOLOGY [id number] [place] [address], COMPLETE BLOOD COUNTon 02-19 Erythrocyte distribution width (RBC) [Ratio] 14.9 % High 11.5-14.5 [facility] Comment on above: Performed By: #### C BC ####[facility] PATHOLOGY [id number] [place] [address], Hematocrit (Bld) [Volume fraction] 31.8 % Low 41.0-53.0 [facility] Comment on above: Performed By: #### C BC ####[facility] PATHOLOG[facility] [id number] [place], Hemoglobin (Bld) [Mass/Vol] 10.7 g/dL Low 13.9-16.3 [facility] Comment on above: Performed By: #### C BC ####[facility] PATHOLOG[facility] [id number] [place], MCH (RBC) [Entitic mass] 31.7 pg Normal 26.0-34.0 [facility] Comment on above: Performed By: #### C BC ####[facility] PATHOLOGY [id number] [place], MCHC (RBC) [Mass/Vol] 33.8 g/dL Normal 32.0-35.9 [facility] Comment on above: Performed By: #### C BC ####[facility] PATHOLOGY [id number] [place] [address], MCV (RBC) [Entitic vol] 94 fL Normal 80-100 [facility] Comment on above: Performed By: #### C BC ####[facility] PATHOLOG[facility] [id number] [place], Platelet mean volume (Bld) [Entitic vol] 9.6 fL Normal 7.5-11.2 [facility] Comment on above: Performed By: #### C BC ####[facility] PATHOLOGY [id number] [place], Platelets (Bld) [#/Vol] 235 10*3/uL Normal 150-400 [facility] Comment on above: Performed By: #### C BC ####[facility] PATHOLOG[facility] [id number] [place], RBC (Bld) [#/Vol] 3.38 10*6/uL Low 4.50-5.90 [facility] Comment on above: Performed By: #### C BC ####[facility] PATHOLOG[facility] [id number] [place], WBC (Bld) [#/Vol] 6.3 10*3/uL Normal 4.5-11.5 [facility] Comment on above: Performed By: #### C BC ####[facility] PATHOLOGY [id number] [place], Care Plan Noteon 02-19-2021 [employer] Operator Authentication Interface Message Text Normal [facility] Consultson 02-19-2021 [employer] Operator Authentication Interface Message Text PHYSICAL THERAPY and OCCUPATIONAL THERAPY Attempt at Tx this AM is unsuccessful as Patient is off floor in OR with Orthopedics for definitive fixation of (L) ankle. Will f/u Maribell Ocasio, PT, MPT (B) [phone] Rosa Vick, OTR/L Normal [facility] ELECTROLYTESon 02-19-2021 Chloride [Moles/Vol] 109 mmol/L Normal 97-111 [facility] Comment on above: Performed By: #### C R GLU, CR COOX, CR ICA, CR BGA, CR LYTES, LACT ####[facility] PATHOLOG[facility] [id number] [place], Potassium [Moles/Vol] 3.8 mmol/L Normal 3.3-5.3 [facility] Comment on above: Performed By: #### C R GLU, CR COOX, CR ICA, CR BGA, CR LYTES, LACT ####[facility] PATHOLOG[facility] [id number] [place], Sodium [Moles/Vol] 134 mmol/L Low 135-148 [facility] Comment on above: Performed By: #### C R GLU, CR COOX, CR ICA, CR BGA, CR LYTES, LACT ####[facility] PATHOLOG[facility] [id number] [place], GLUCOSE, WHOLE BLOODon 02-19 CR GLU 101 mg/dL High 68-98 [facility] Comment on above: Performed By: #### C R GLU, CR COOX, CR ICA, CR BGA, CR LYTES, LACT ####[facility] PATHOLOG[facility] [id number] [place], H AND Martin 02-19-2021 [employer] Operator Authentication Interface Message Text Normal [facility] LACTIC ACIDon 02-19-2021 CR LACT 0.7 mmol/L Normal 0.5-2.0 [facility] Comment on above: Performed By: #### C R GLU, CR COOX, CR ICA, CR BGA, CR LYTES, LACT ####[facility] PATHOLOG[facility] [id number] [place], MAGNESIUMon 02-19-2021 Magnesium [Mass/Vol] 2.0 mg/dL Normal 1.6-2.8 [facility] Comment on above: Performed By: #### Rajiv Roque PHOS ####[facility] PATHOLOG[facility] [id number] [place], Magnesium [Mass/Vol] 2.0 mg/dL Normal 1.6-2.8 [facility] Comment on above: Performed By: #### Rajiv Roque, CH8 ####[facility] PATHOLOGY [id number] [place] [address], OP Noteon 02-19-2021 [employer] Operator Authentication Interface Message Text Normal [facility] PARTIAL THROMBOPLASTIN TIMEo n 02-19-2021 aPTT Coag (Bld) [Time] 34 s Normal 25-37 Th [facility] Comment on above: Performed By: #### A PTT, PT ####[facility] PATHOLOG[facility] [id number] [place], PHOSPHORUSon 02-19-2021 Phosphate [Mass/Vol] 3.8 mg/dL Normal 2.3-4.2 [facility] Comment on above: Performed By: #### Rajiv Roque PHOS ####[facility] PATHOLOGY [id number] [place] [address], PROTHROMBIN TIME AND INRon 0 02-19-2021 INR Coag (PPP) [Relative time] 1.09 {INR} Normal 0.90-1.10 [facility] Comment on above: Performed By: #### A PTT, PT ####[facility] PATHOLOGY [id number] [place] [address], PT Coag (PPP) [Time] 12.3 s Normal 9.7-12.9 [facility] Comment on above: Performed By: #### A PTT, PT ####S PATHOLOGY [id number] [place], Progress Noteson 02-19-2021 [employer] Operator Authentication Interface Message Text Normal [facility] [employer] Operator Authentication Interface Message Text Peripheral nerve block has been completed at bedside by anesthesia; will maintain cardiac monitoring for at least 30 minutes. Normal [facility] [employer]inder Operator Authentication Interface Message Text OK for patient to get peripheral nerve block per Dr. Santos. Normal [facility] [employer] Grinder Operator Authentication Interface Message Text Normal [facility] TYPE AND SCREENon 02-19-2021 ABO and Rh group Nom (Bld) Blood group A Rh(D) positive Normal [facility] Comment on above: Performed By: #### T S ####[facility] [id number] [place], ABSC INT Negative Normal [facility] Comment on above: Performed By: #### T S ####[facility] [id number] [place], [place] GUIDANCE NEEDLE PLACEMENT on 02-19-2021 US GUIDANCE NEEDLE PLACEMENT Normal [facility] XR ANKLE LEFTon 02-19-2021 XR ANKLE LEFT Normal [facility] Anesthesia Preprocedure Eval uationon 02-18-2021 [employer] Operator Authentication Interface Message Text Normal The [employer] [facility] Care Plan Noteon 02-18-2021 [employer] Gr[employer] Operator Authentication Interface Message Text Normal [facility] Progress Noteson 02-18-2021 [employer] Operator Authentication Interface Message Text SW is aware pt to go to the OR tomorrow: 02/19/2021. Pt will need post-op PT/OT for SNF placement and precert. [facility] has accepted and following for placement. 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 [phone] Normal [facility] [employer] Grinder Operator Authentication Interface Message Text Normal [facility] [employer] Grinder Operator Authentication Interface Message Text Normal [facility] [employer] Grinder Operator Authentication Interface Message Text Normal The [employer] [facility] BASIC METABOLIC PANELon - Anion gap [Moles/Vol] 12 mmol/L Normal 5-13 [facility] [employer] [facility] Comment on above: Performed By: #### C H8, DIG, MG ####[facility] [id number] [place], Calcium [Mass/Vol] 8.9 mg/dL Normal 8.4-10.4 [facility] Comment on above: Performed By: #### C H8, DIG, MG ####[facility] [id number] [place], Chloride [Moles/Vol] 106 mmol/L Normal 97-111 [facility] Comment on above: Performed By: #### C H8, DIG, MG ####[facility] [id number] [place], CO2 [Moles/Vol] 22 mmol/L Normal 21-30 [facility] Comment on above: Performed By: #### C H8, DIG, MG ####[facility] [id number] [place], Creatinine [Mass/Vol] 1.17 mg/dL Normal 0.80-1.30 [facility] Comment on above: Performed By: #### Austyn HSajan, DIG, MG ####[facility] [id number] [place], ESTIMATED GFR (CKD-EPI) 61 mL/min/1.73sqm Normal >=60 [facility] Comment on above: Performed By: #### C H8, DIG, MG ####[facility] [id number] [place], [place], Glucose [Mass/Vol] 104 mg/dL Normal 80-116 [facility] Comment on above: Performed By: #### C H8, DIG, MG ####[facility] [id number] [place], [place], Potassium [Moles/Vol] 4.4 mmol/L Normal 3.3-5.3 [facility] Comment on above: Performed By: #### C H8, DIG, MG ####[facility] [id number] [place], Sodium [Moles/Vol] 136 mmol/L Normal 135-148 [facility] Comment on above: Performed By: #### C H8, DIG, MG ####S PATHOLOGY [id number] [place], Urea nitrogen [Mass/Vol] 33 mg/dL High 8-22 [facility] Comment on above: Performed By: #### C H8, DIG, MG ####S PATHOLOGY [id number] [place], COMPLETE BLOOD COUNTon 02-17 Erythrocyte distribution width (RBC) [Ratio] 14.6 % High 11.5-14.5 [facility] Comment on above: Performed By: #### C BC ####[facility] PATHOLOGY [id number] [place], [place], Hematocrit (Bld) [Volume fraction] 30.4 % Low 41.0-53.0 [facility] Comment on above: Performed By: #### C BC ####[facility] PATHOLOGY [id number] [place], Hemoglobin (Bld) [Mass/Vol] 10.4 g/dL Low 13.9-16.3 [facility] Comment on above: Performed By: #### C BC ####[facility] PATHOLOGY [id number] [place], MCH (RBC) [Entitic mass] 32.4 pg Normal 26.0-34.0 [facility] Comment on above: Performed By: #### C BC ####S PATHOLOGY [id number] [place], MCHC (RBC) [Mass/Vol] 34.2 g/dL Normal 32.0-35.9 [facility] Comment on above: Performed By: #### C BC ####S PATHOLOGY [id number] [place], MCV (RBC) [Entitic vol] 95 fL Normal 80-100 [facility] Comment on above: Performed By: #### C BC ####S PATHOLOGY [id number] [place], Platelet mean volume (Bld) [Entitic vol] 10.2 fL Normal 7.5-11.2 [facility] Comment on above: Performed By: #### C BC ####S PATHOLOGY [id number] [place], Platelets (Bld) [#/Vol] 207 10*3/uL Normal 150-400 [facility] Comment on above: Performed By: #### C BC ####S PATHOLOGY [id number] [place], RBC (Bld) [#/Vol] 3.20 10*6/uL Low 4.50-5.90 [facility] Comment on above: Performed By: #### C BC ####[facility] PATHOLOGY [id number] [place], WBC (Bld) [#/Vol] 9.1 10*3/uL Normal 4.5-11.5 [facility] Comment on above: Performed By: #### C BC ####[facility] PATHOLOGY [id number] [place], Care Plan Noteon 02-17-2021 [employer] Authentication Interface Message Text Normal [facility] Consultson 02-17-2021 [employer] Operator Authentication Interface Message Text Normal [facility] [employer] Operator Authentication Interface Message Text Normal [facility] DIGOXINon 02-17-2021 DIG 0.91 ng/mL Normal 0.80-2.00 [facility] Comment on above: Performed By: #### Austyn H8, DIG, MG ####S PATHOLOGY [id number] [place], MAGNESIUMon 02-17-2021 Magnesium [Mass/Vol] 2.0 mg/dL Normal 1.6-2.8 [facility] Comment on above: Performed By: #### Austyn H8, DIG, MG ####[facility] [id number] [place], [place], Progress Noteson 02-17-2021 [employer] Operator Authentication Interface Message Text Normal [facility] Care Plan Noteon 02-16-2021 [employer] Operator Authentication Interface Message Text Normal [facility] Progress Noteson 02-16-2021 [employer] Operator Authentication Interface Message Text Normal [facility]:1 Interactionon 02-15-2021 [employer] Operator Authentication Interface Message Text Normal [facility] BASIC METABOLIC PANELon 01-29 Anion gap [Moles/Vol] 11 mmol/L Normal 5-13 [facility] Comment on above: Performed By: #### Rajiv Roque, ALESHA8 ####[facility] [id number] [place], Calcium [Mass/Vol] 8.8 mg/dL Normal 8.4-10.4 [facility] Comment on above: Performed By: #### Rajiv Roque, ALESHA8 ####S PATHOLOGY [id number] [place], Chloride [Moles/Vol] 108 mmol/L Normal 97-111 [facility] Comment on above: Performed By: #### Rajiv Roque, ALESHA8 ####S PATHOLOGY [id number] [place], CO2 [Moles/Vol] 23 mmol/L Normal 21-30 [facility] Comment on above: Performed By: #### Rajiv Roque, ALESHA8 ####[facility] [id number] [place], Creatinine [Mass/Vol] 1.06 mg/dL Normal 0.80-1.30 [facility] Comment on above: Performed By: #### Rajiv Roque, ALESHA8 ####[facility] [id number] [place], ESTIMATED GFR (CKD-EPI) 69 mL/min/1.73sqm Normal >=60 [facility] Comment on above: Performed By: #### Rajiv Roque, CH8 ####[facility] [id number] [place], Glucose [Mass/Vol] 110 mg/dL Normal 80-116 [facility] Comment on above: Performed By: #### Rajiv Roque, CH8 ####[facility] [id number] [place], Potassium [Moles/Vol] 4.3 mmol/L Normal 3.3-5.3 [facility] Comment on above: Performed By: #### Rajiv Roque, CH8 ####S PATHOLOGY [id number] [place], Sodium [Moles/Vol] 138 mmol/L Normal 135-148 [facility] Comment on above: Performed By: #### Rajiv Roque, CH8 ####S PATHOLOGY [id number] [place], Urea nitrogen [Mass/Vol] 34 mg/dL High 8-22 [facility] Comment on above: Performed By: #### Rajiv Roque, ALESHA8 ####[facility] PATHOLOGY [id number] [place], COMPLETE BLOOD COUNTon 02-15 Erythrocyte distribution width (RBC) [Ratio] 14.8 % High 11.5-14.5 [facility] Comment on above: Performed By: #### C BC ####[facility] PATHOLOGY [id number] [place], Hematocrit (Bld) [Volume fraction] 30.1 % Low 41.0-53.0 [facility] Comment on above: Performed By: #### C BC ####[facility] PATHOLOGY [id number] [place], Hemoglobin (Bld) [Mass/Vol] 10.1 g/dL Low 13.9-16.3 [facility] Comment on above: Performed By: #### C BC ####[facility] PATHOLOGY [id number] [place], MCH (RBC) [Entitic mass] 31.3 pg Normal 26.0-34.0 [facility] Comment on above: Performed By: #### C BC ####[facility] PATHOLOGY [id number] [place], MCHC (RBC) [Mass/Vol] 33.5 g/dL Normal 32.0-35.9 [facility] Comment on above: Performed By: #### C BC ####S PATHOLOGY [id number] [place], MCV (RBC) [Entitic vol] 93 fL Normal 80-100 [facility] Comment on above: Performed By: #### C BC ####S PATHOLOGY [id number] [place], Platelet mean volume (Bld) [Entitic vol] 10.2 fL Normal 7.5-11.2 [facility] Comment on above: Performed By: #### C BC ####[facility] [id number] [place], Platelets (Bld) [#/Vol] 172 10*3/uL Normal 150-400 [facility] Comment on above: Performed By: #### C BC ####S PATHOLOGY [id number] [place], RBC (Bld) [#/Vol] 3.23 10*6/uL Low 4.50-5.90 [facility] Comment on above: Performed By: #### C BC ####S PATHOLOGY [id number] [place], WBC (Bld) [#/Vol] 9.1 10*3/uL Normal 4.5-11.5 [facility] Comment on above: Performed By: #### C BC ####[facility] PATHOLOGY [id number] [place], Care Plan Noteon 02-15-2021 [employer] Operator Authentication Interface Message Text Normal [facility] Consultson 02-15-2021 [employer] Operator Authentication Interface Message Text Normal [facility] [employer] Operator Authentication Interface Message Text Normal [facility] MAGNESIUMon 02-15-2021 Magnesium [Mass/Vol] 2.0 mg/dL Normal 1.6-2.8 [facility] Comment on above: Performed By: #### Rajiv G, CH8 ####S PATHOLOGY [id number] [place], Progress Noteson 02-15-2021 [employer] Operator Authentication Interface Message Text Labs and vitals stable, known current state of variable aflutter block causing HR variability from 70-140s. No acute issues since ICU transfer. Normal [facility] [employer] Operator Authentication Interface Message Text Normal [facility] [employer] Operator Authentication Interface Message Text Normal [facility] 1:1 Interactionon 02-14-2021 [employer] Operator Authentication Interface Message Text Normal [facility] BASIC METABOLIC PANELon 01-29 Anion gap [Moles/Vol] 11 mmol/L Normal 5-13 [facility] Comment on above: Performed By: #### Rajiv Roque, CH8 ####S PATHOLOGY [id number] [place], Calcium [Mass/Vol] 8.6 mg/dL Normal 8.4-10.4 [facility] Comment on above: Performed By: #### Rajiv Roque, CH8 ####S PATHOLOGY [id number] [place], Chloride [Moles/Vol] 110 mmol/L Normal 97-111 [facility] Comment on above: Performed By: #### Rajiv Roque, ALESHA8 ####[facility] PATHOLOGY [id number] [place], CO2 [Moles/Vol] 24 mmol/L Normal 21-30 [facility] Comment on above: Performed By: #### Rajiv Roque, ALESHA8 ####[facility] PATHOLOGY [id number] [place], Creatinine [Mass/Vol] 0.92 mg/dL Normal 0.80-1.30 [facility] Comment on above: Performed By: ###Sabrina Roque, CH8 ####[facility] PATHOLOGY [id number] [place], ESTIMATED GFR (CKD-EPI) 82 mL/min/1.73sqm Normal >=60 [facility] Comment on above: Performed By: #### Rajiv Roque, CH8 ####S PATHOLOGY [id number] [place], Glucose [Mass/Vol] 116 mg/dL Normal 80-116 [facility] Comment on above: Performed By: #### Rajiv Roque, CH8 ####S PATHOLOGY [id number] [place], Potassium [Moles/Vol] 4.3 mmol/L Normal 3.3-5.3 [facility] Comment on above: Performed By: #### Rajiv Roque, CH8 ####[facility] PATHOLOGY [id number] [place], Sodium [Moles/Vol] 141 mmol/L Normal 135-148 [facility] Comment on above: Performed By: #### Rajiv Roque, CH8 ####[facility] PATHOLOGY [id number] [place], Urea nitrogen [Mass/Vol] 36 mg/dL High 8-22 [facility] Comment on above: Performed By: #### Rajiv Roque, CH8 ####[facility] PATHOLOGY [id number] [place], COMPLETE BLOOD COUNTon 02-14 Erythrocyte distribution width (RBC) [Ratio] 14.8 % High 11.5-14.5 [facility] Comment on above: Performed By: #### C BC ####[facility] PATHOLOGY [id number] [place], Hematocrit (Bld) [Volume fraction] 29.5 % Low 41.0-53.0 [facility] Comment on above: Performed By: #### C BC ####[facility] PATHOLOGY [id number] [place], Hemoglobin (Bld) [Mass/Vol] 9.9 g/dL Low 13.9-16.3 [facility] Comment on above: Performed By: #### C BC ####[facility] PATHOLOGY [id number] [place], MCH (RBC) [Entitic mass] 31.9 pg Normal 26.0-34.0 [facility] Comment on above: Performed By: #### C BC ####[facility] PATHOLOGY [id number] [place], MCHC (RBC) [Mass/Vol] 33.5 g/dL Normal 32.0-35.9 [facility] Comment on above: Performed By: #### C BC ####[facility] PATHOLOGY [id number] [place], MCV (RBC) [Entitic vol] 95 fL Normal 80-100 [facility] Comment on above: Performed By: #### C BC ####S PATHOLOGY [id number] [place], Platelet mean volume (Bld) [Entitic vol] 10.8 fL Normal 7.5-11.2 [facility] Comment on above: Performed By: #### C BC ####S PATHOLOGY [id number] [place], Platelets (Bld) [#/Vol] 131 10*3/uL Low 150-400 [facility] Comment on above: Performed By: #### C BC ####[facility] PATHOLOGY [id number] [place], RBC (Bld) [#/Vol] 3.09 10*6/uL Low 4.50-5.90 [facility] Comment on above: Performed By: #### C BC ####[facility] PATHOLOGY [id number] [place], WBC (Bld) [#/Vol] 6.8 10*3/uL Normal 4.5-11.5 [facility] Comment on above: Performed By: #### C BC ####[facility] PATHOLOGY [id number] [place], Care Plan Noteon 02-14-2021 [employer] Operator Authentication Interface Message Text Normal [facility] [employer] Operator Authentication Interface Message Text Normal [facility] Consultson 02-14-2021 [employer] Operator Authentication Interface Message Text Normal [facility] [employer] Operator Authentication Interface Message Text Normal [facility] [employer] Operator Authentication Interface Message Text Normal [facility] MAGNESIUMon 02-14-2021 Magnesium [Mass/Vol] 2.5 mg/dL Normal 1.6-2.8 [facility] Comment on above: Performed By: #### Rajiv Roque CH8 ####[facility] PATHOLOGY [id number] [place], Progress Noteson 02-14-2021 [employer] Operator Authentication Interface Message Text Normal [facility] [employer] Operator Authentication Interface Message Text Normal [facility] [employer] Operator Authentication Interface Message Text Normal [facility] BASIC METABOLIC PANELon 01-29 Anion gap [Moles/Vol] 9 mmol/L Normal 5-13 [facility] Comment on above: Performed By: #### C H8, MG ####[facility] [id number] [place], Calcium [Mass/Vol] 8.9 mg/dL Normal 8.4-10.4 [facility] Comment on above: Performed By: #### C H8, MG ####[facility] [id number] [place], Chloride [Moles/Vol] 108 mmol/L Normal 97-111 [facility] Comment on above: Performed By: #### C H8, MG ####[facility] [id number] [place], CO2 [Moles/Vol] 27 mmol/L Normal 21-30 [facility] Comment on above: Performed By: #### C H8, MG ####[facility] [id number] [place], Creatinine [Mass/Vol] 0.89 mg/dL Normal 0.80-1.30 [facility] Comment on above: Performed By: #### C H8, MG ####[facility] [id number] [place], ESTIMATED GFR (CKD-EPI) 84 mL/min/1.73sqm Normal >=60 [facility] Comment on above: Performed By: #### C H8, MG ####[facility] [id number] [place], Glucose [Mass/Vol] 127 mg/dL High 80-116 [facility] Comment on above: Performed By: #### C H8, MG ####[facility] [id number] [place], Potassium [Moles/Vol] 3.9 mmol/L Normal 3.3-5.3 [facility] Comment on above: Performed By: #### C H8, MG ####[facility] [id number] [place], Sodium [Moles/Vol] 140 mmol/L Normal 135-148 [facility] Comment on above: Performed By: #### C H8, MG ####S PATHOLOGY [id number] [place], Urea nitrogen [Mass/Vol] 29 mg/dL High 8-22 [facility] Comment on above: Performed By: #### C H8, MG ####[facility] PATHOLOGY [id number] [place], COMPLETE BLOOD COUNTon 02-13 Erythrocyte distribution width (RBC) [Ratio] 14.5 % Normal 11.5-14.5 [facility] Comment on above: Performed By: #### C BC ####[facility] PATHOLOGY [id number] [place], Hematocrit (Bld) [Volume fraction] 29.0 % Low 41.0-53.0 [facility] Comment on above: Performed By: #### C BC ####[facility] PATHOLOGY [id number] [place], Hemoglobin (Bld) [Mass/Vol] 9.8 g/dL Low 13.9-16.3 [facility] Comment on above: Performed By: #### C BC ####[facility] PATHOLOGY [id number] [place], MCH (RBC) [Entitic mass] 31.6 pg Normal 26.0-34.0 [facility] Comment on above: Performed By: #### C BC ####S PATHOLOGY [id number] [place], MCHC (RBC) [Mass/Vol] 33.9 g/dL Normal 32.0-35.9 [facility] Comment on above: Performed By: #### C BC ####S PATHOLOGY [id number] [place], MCV (RBC) [Entitic vol] 93 fL Normal 80-100 [facility] Comment on above: Performed By: #### C BC ####S PATHOLOGY [id number] [place], Platelet mean volume (Bld) [Entitic vol] 10.8 fL Normal 7.5-11.2 [facility] Comment on above: Performed By: #### C BC ####S PATHOLOGY [id number] [place], Platelets (Bld) [#/Vol] 132 10*3/uL Low 150-400 [facility] Comment on above: Performed By: #### C BC ####S PATHOLOGY [id number] [place], RBC (Bld) [#/Vol] 3.11 10*6/uL Low 4.50-5.90 [facility] Comment on above: Performed By: #### C BC ####[facility] PATHOLOGY [id number] [place], WBC (Bld) [#/Vol] 7.1 10*3/uL Normal 4.5-11.5 [facility] Comment on above: Performed By: #### C BC ####[facility] PATHOLOGY [id number] [place], Consultson 02-13-2021 [employer] Operator Authentication Interface Message Text Normal [facility] [employer] Operator Authentication Interface Message Text Normal [facility] MAGNESIUMon 02-13-2021 Magnesium [Mass/Vol] 1.9 mg/dL Normal 1.6-2.8 [facility] Comment on above: Performed By: #### C H8, MG ####[facility] PATHOLOGY [id number] [place], Progress Noteson 02-13-2021 [employer] Operator Authentication Interface Message Text Normal [facility] [employer] Operator Authentication Interface Message Text Normal [facility] 1:1 Interactionon 02-12-2021 [employer] Operator Authentication Interface Message Text Normal [facility] BASIC METABOLIC PANELon 01-29 Anion gap [Moles/Vol] 10 mmol/L Normal 5-13 [facility] Comment on above: Performed By: #### C H8, MG, DIG ####S PATHOLOGY [id number] [place], Calcium [Mass/Vol] 8.7 mg/dL Normal 8.4-10.4 [facility] Comment on above: Performed By: #### C H8, MG, DIG ####[facility] [id number] [place], Chloride [Moles/Vol] 108 mmol/L Normal 97-111 [facility] Comment on above: Performed By: #### C H8, MG, DIG ####[facility] [id number] [place], CO2 [Moles/Vol] 26 mmol/L Normal 21-30 [facility] Comment on above: Performed By: #### C H8, MG, DIG ####[facility] [id number] [place], Creatinine [Mass/Vol] 1.10 mg/dL Normal 0.80-1.30 [facility] Comment on above: Performed By: #### C H8, MG, DIG ####[facility] [id number] [place], ESTIMATED GFR (CKD-EPI) 66 mL/min/1.73sqm Normal >=60 [facility] Comment on above: Performed By: #### C HSajan, MG, DIG ####[facility] [id number] [place], Glucose [Mass/Vol] 116 mg/dL Normal 80-116 [facility] Comment on above: Performed By: #### C H8, MG, DIG ####[facility] [id number] [place], Potassium [Moles/Vol] 4.2 mmol/L Normal 3.3-5.3 [facility] Comment on above: Performed By: #### C H8, MG, DIG ####[facility] [id number] [place], Sodium [Moles/Vol] 140 mmol/L Normal 135-148 [facility] Comment on above: Performed By: #### C H8, MG, DIG ####[facility] [id number] [place], Urea nitrogen [Mass/Vol] 33 mg/dL High 8-22 [facility] Comment on above: Performed By: #### C H8, MG, DIG ####[facility] PATHOLOGY [id number] [place], COMPLETE BLOOD COUNTon 02-12 Erythrocyte distribution width (RBC) [Ratio] 14.5 % Normal 11.5-14.5 [facility] Comment on above: Performed By: #### C BC ####[facility] PATHOLOGY [id number] [place] [address], Hematocrit (Bld) [Volume fraction] 27.5 % Low 41.0-53.0 [facility] Comment on above: Performed By: #### C BC ####[facility] PATHOLOGY [id number] [place] [address], Hemoglobin (Bld) [Mass/Vol] 9.2 g/dL Low 13.9-16.3 [facility] Comment on above: Performed By: #### C BC ####[facility] PATHOLOGY [id number] [place] [address], MCH (RBC) [Entitic mass] 31.1 pg Normal 26.0-34.0 [facility] Comment on above: Performed By: #### C BC ####[facility] PATHOLOGY [id number] [place] [address], MCHC (RBC) [Mass/Vol] 33.4 g/dL Normal 32.0-35.9 [facility] Comment on above: Performed By: #### C BC ####[facility] PATHOLOGY [id number] [place] [address], MCV (RBC) [Entitic vol] 93 fL Normal 80-100 [facility] Comment on above: Performed By: #### C BC ####[facility] PATHOLOG[facility] [id number] [place], [place], Platelet mean volume (Bld) [Entitic vol] 10.8 fL Normal 7.5-11.2 [facility] Comment on above: Performed By: #### C BC ####[facility] PATHOLOGY [id number] [place] [address], Platelets (Bld) [#/Vol] 109 10*3/uL Low 150-400 [facility] Comment on above: Performed By: #### C BC ####[facility] [id number] [place], [place], RBC (Bld) [#/Vol] 2.95 10*6/uL Low 4.50-5.90 [facility] Comment on above: Performed By: #### C BC ####[facility] [id number] [place], [place], WBC (Bld) [#/Vol] 7.5 10*3/uL Normal 4.5-11.5 [facility] Comment on above: Performed By: #### C BC ####[facility] [id number] [place], [place], Care Plan Noteon 02-12-2021 [employer] Authentication Interface Message Text Normal [facility] Consultson 02-12-2021 [employer] Operator Authentication Interface Message Text Normal [facility] [employer] Operator Authentication Interface Message Text Normal [facility] [employer] Operator Authentication Interface Message Text Normal [facility] DIGOXINon 02-12-2021 DIG 0.92 ng/mL Normal 0.80-2.00 [facility] Comment on above: Performed By: #### Austyn H8, MG, DIG ####[facility] [id number] [place], [place], [place] MODIFIED BARIUM SWALLOWon 02-12-2021 [place] MODIFIED BARIUM SWALLOW Normal [facility] MAGNESIUMon 02-12-2021 Magnesium [Mass/Vol] 2.0 mg/dL Normal 1.6-2.8 [facility] Comment on above: Performed By: #### C H8, MG, DIG ####[facility] [id number] [place], [place], Progress Noteson 02-12-2021 [employer] Authentication Interface Message Text Normal [facility] [employer] Operator Authentication Interface Message Text Normal [facility] BASIC METABOLIC PANELon 01-29 Anion gap [Moles/Vol] 10 mmol/L Normal 5-13 [facility] Comment on above: Performed By: #### C H8, MG ####[facility] [id number] [place], Calcium [Mass/Vol] 8.6 mg/dL Normal 8.4-10.4 [facility] Comment on above: Performed By: #### Austyn Saleh8, MG ####[facility] [id number] [place], Chloride [Moles/Vol] 106 mmol/L Normal 97-111 [facility] Comment on above: Performed By: #### Austyn Tamez, MG ####[facility] [id number] [place], CO2 [Moles/Vol] 26 mmol/L Normal 21-30 [facility] Comment on above: Performed By: #### Austyn Tamez, MG ####[facility] [id number] [place], Creatinine [Mass/Vol] 1.01 mg/dL Normal 0.80-1.30 [facility] Comment on above: Performed By: #### Austyn Tamez, MG ####[facility] [id number] [place], ESTIMATED GFR (CKD-EPI) 73 mL/min/1.73sqm Normal >=60 [facility] Comment on above: Performed By: #### Austyn Tamez, MG ####[facility] [id number] [place], Glucose [Mass/Vol] 121 mg/dL High 80-116 [facility] Comment on above: Performed By: #### Austyn H8, MG ####[facility] [id number] [place], Potassium [Moles/Vol] 4.0 mmol/L Normal 3.3-5.3 [facility] Comment on above: Performed By: #### Austyn H8, MG ####[facility] [id number] [place], Sodium [Moles/Vol] 138 mmol/L Normal 135-148 [facility] Comment on above: Performed By: #### Austyn H8, MG ####[facility] [id number] [place], Urea nitrogen [Mass/Vol] 22 mg/dL Normal 8-22 [facility] Comment on above: Performed By: #### C H8, MG ####[facility] PATHOLOG[facility] [id number] [place], COMPLETE BLOOD COUNTon 02-11 Erythrocyte distribution width (RBC) [Ratio] 14.1 % Normal 11.5-14.5 [facility] Comment on above: Performed By: #### C BC ####[facility] PATH[facility] [id number] [place], Hematocrit (Bld) [Volume fraction] 29.6 % Low 41.0-53.0 [facility] Comment on above: Performed By: #### C BC ####[facility] PATH[facility] [id number] [place], Hemoglobin (Bld) [Mass/Vol] 10.2 g/dL Low 13.9-16.3 [facility] Comment on above: Performed By: #### C BC ####[facility] PATHOLOG[facility] [id number] [place], MCH (RBC) [Entitic mass] 32.3 pg Normal 26.0-34.0 [facility] Comment on above: Performed By: #### C BC ####[facility] PATHOLOG[facility] [id number] [place], MCHC (RBC) [Mass/Vol] 34.4 g/dL Normal 32.0-35.9 [facility] Comment on above: Performed By: #### C BC ####[facility] PATHOLOG[facility] [id number] [place], MCV (RBC) [Entitic vol] 94 fL Normal 80-100 [facility] Comment on above: Performed By: #### C BC ####[facility] PATHOLOG[facility] [id number] [place], Platelet mean volume (Bld) [Entitic vol] 10.3 fL Normal 7.5-11.2 [facility] Comment on above: Performed By: #### C BC ####[facility] [id number] [place], Platelets (Bld) [#/Vol] 101 10*3/uL Low 150-400 [facility] Comment on above: Performed By: #### C BC ####S PATHOLOGY [id number] [place], RBC (Bld) [#/Vol] 3.15 10*6/uL Low 4.50-5.90 [facility] Comment on above: Performed By: #### C BC ####S PATHOLOGY [id number] [place], WBC (Bld) [#/Vol] 8.2 10*3/uL Normal 4.5-11.5 [facility] Comment on above: Performed By: #### C BC ####[facility] PATHOLOG[facility] [id number] [place], Care Plan Noteon 02-11-2021 [employer] Operator Authentication Interface Message Text Normal [facility] [employer] Operator Authentication Interface Message Text Normal [facility] Consultson 02-11-2021 [employer] Operator Authentication Interface Message Text Normal [facility] DIGOXINon 02-11-2021 DIG 1.91 ng/mL Normal 0.80-2.00 [facility] Comment on above: Performed By: #### D IG ####S PATHOLOGY [id number] [place], MAGNESIUMon 02-11-2021 Magnesium [Mass/Vol] 2.0 mg/dL Normal 1.6-2.8 [facility] Comment on above: Performed By: #### C H8, MG ####S PATHOLOGY [id number] [place], Progress Noteson 02-11-2021 [employer] Operator Authentication Interface Message Text Normal [facility] [employer] Operator Authentication Interface Message Text Normal [facility] [employer] Operator Authentication Interface Message Text Normal [facility] [employer] Operator Authentication Interface Message Text Normal [facility] [employer] Operator Authentication Interface Message Text Normal [facility] 1:1 Interactionon 02-10-2021 [employer] Operator Authentication Interface Message Text Normal [facility] ANTI FXA-LMW HEPARINon 02-10 ANTI FXA-LMW HEPARIN ASSAY 1.35 IU/mL Normal [facility] Comment on above: Order Comment: The r ecommended therapeutic range for treatment of thrombosis with Low Molecular Weight Heparin is 0.5 - 1.0 IU/mLThe recommended range for VTE prophylaxis with Low Molecular Weight Heparin is 0.2 - 0.4 IU/mL. Performed By: #### A XL ####S PATHOLOGY [id number] [place] [address], BASIC METABOLIC PANELon 01-29 Anion gap [Moles/Vol] 9 mmol/L Normal 5-13 [facility] Comment on above: Performed By: #### Austyn Tamez, MG ####S PATHOLOGY [id number] [place] [address], Calcium [Mass/Vol] 8.9 mg/dL Normal 8.4-10.4 [facility] Comment on above: Performed By: #### Austyn Tamez, MG ####[facility] PATHOLOGY [id number] [place] [address], Chloride [Moles/Vol] 110 mmol/L Normal 97-111 [facility] Comment on above: Performed By: #### Austyn Tamez, MG ####[facility] PATHOLOGY [id number] [place] [address], CO2 [Moles/Vol] 26 mmol/L Normal 21-30 [facility] Comment on above: Performed By: #### Austyn Tamez, MG ####S PATHOLOGY [id number] [place] [address], Creatinine [Mass/Vol] 1.10 mg/dL Normal 0.80-1.30 [facility] Comment on above: Performed By: #### Austyn Saleh8, MG ####S PATHOLOGY [id number] [place] [address], ESTIMATED GFR (CKD-EPI) 66 mL/min/1.73sqm Normal >=60 [facility] Comment on above: Performed By: #### Austyn Saleh8, MG ####S PATHOLOGY [id number] [place] [address], Glucose [Mass/Vol] 128 mg/dL High 80-116 [facility] Comment on above: Performed By: #### Austyn H8, MG ####S PATHOLOGY [id number] [place], Potassium [Moles/Vol] 3.7 mmol/L Normal 3.3-5.3 [facility] Comment on above: Performed By: #### Austyn H8, MG ####[facility] PATH[facility] [id number] [place], Sodium [Moles/Vol] 141 mmol/L Normal 135-148 [facility] Comment on above: Performed By: #### Austyn Saleh8, MG ####[facility] PATHOLOGY [id number] [place] [address], Urea nitrogen [Mass/Vol] 17 mg/dL Normal 8-22 [facility] Comment on above: Performed By: #### Austyn Saleh8, MG ####[facility] PATHOLOGY [id number] [place] [address], COMPLETE BLOOD COUNTon 02-10 Erythrocyte distribution width (RBC) [Ratio] 14.0 % Normal 11.5-14.5 [facility] Comment on above: Performed By: #### C BC ####[facility] PATHOLOGY [id number] [place], Hematocrit (Bld) [Volume fraction] 29.7 % Low 41.0-53.0 [facility] Comment on above: Performed By: #### C BC ####[facility] PATHOLOG[facility] [id number] [place], Hemoglobin (Bld) [Mass/Vol] 10.1 g/dL Low 13.9-16.3 [facility] Comment on above: Performed By: #### C BC ####S PATHOLOGY [id number] [place] [address], MCH (RBC) [Entitic mass] 31.5 pg Normal 26.0-34.0 [facility] Comment on above: Performed By: #### C BC ####S PATHOLOGY [id number] [place] [address], MCHC (RBC) [Mass/Vol] 34.0 g/dL Normal 32.0-35.9 [facility] Comment on above: Performed By: #### C BC ####S PATHOLOGY [id number] [place], MCV (RBC) [Entitic vol] 93 fL Normal 80-100 [facility] Comment on above: Performed By: #### C BC ####[facility] PATHOLOG[facility] [id number] [place], Platelet mean volume (Bld) [Entitic vol] 10.6 fL Normal 7.5-11.2 [facility] Comment on above: Performed By: #### C BC ####S PATHOLOGY [id number] [place], Platelets (Bld) [#/Vol] 90 10*3/uL Low 150-400 [facility] Comment on above: Performed By: #### C BC ####[facility] PATHOLOG[facility] [id number] [place], RBC (Bld) [#/Vol] 3.20 10*6/uL Low 4.50-5.90 [facility] Comment on above: Performed By: #### C BC ####[facility] PATHOLOGY [id number] [place], WBC (Bld) [#/Vol] 6.9 10*3/uL Normal 4.5-11.5 [facility] Comment on above: Performed By: #### C BC ####[facility] PATHOLOGY [id number] [place] [address], Care Plan Noteon 02-10-2021 [employer] Operator Authentication Interface Message Text Normal [facility] [employer] Operator Authentication Interface Message Text Normal [facility] Consultson 02-10-2021 [employer] Operator Authentication Interface Message Text Normal [facility] ED US FOCUSED CARDIACon 01-29 ED US FOCUSED CARDIAC Normal [facility] MAGNESIUMon 02-10-2021 Magnesium [Mass/Vol] 1.7 mg/dL Normal 1.6-2.8 [facility] Comment on above: Performed By: #### Austyn Tamez, MG ####S PATHOLOGY [id number] [place], Progress Noteson 02-10-2021 [employer] Operator Authentication Interface Message Text Normal [facility] [employer] Operator Authentication Interface Message Text Normal [facility] [employer] Operator Authentication Interface Message Text Normal [facility] Treatment Plan Noteon 2020 [employer] Operator Authentication Interface Message Text Normal [facility] XR CHEST AP OR PA 1 VIEWon 0 02-10-2021 XR CHEST AP OR PA 1 VIEW Normal [facility] ANTI FXA-LMW HEPARINon 02-09 ANTI FXA-LMW HEPARIN ASSAY 0.41 IU/mL Normal [facility] Comment on above: Order Comment: The r ecommended therapeutic range for treatment of thrombosis with Low Molecular Weight Heparin is 0.5 - 1.0 IU/mLThe recommended range for VTE prophylaxis with Low Molecular Weight Heparin is 0.2 - 0.4 IU/mL. Performed By: #### A XL ####S PATHOLOGY [id number] [place], BASIC METABOLIC PANELon 01-29 Anion gap [Moles/Vol] 12 mmol/L Normal 5-13 [facility] Comment on above: Performed By: #### Austyn Tamez, MG ####S PATHOLOGY [id number] [place], Calcium [Mass/Vol] 8.4 mg/dL Normal 8.4-10.4 [facility] Comment on above: Performed By: #### Austyn Tamez, MG ####S PATHOLOGY [id number] [place], Chloride [Moles/Vol] 114 mmol/L High 97-111 [facility] Comment on above: Performed By: #### Austyn Tamez, MG ####[facility] [id number] [place], CO2 [Moles/Vol] 22 mmol/L Normal 21-30 [facility] Comment on above: Performed By: #### Austyn Tamez, MG ####S PATHOLOGY [id number] [place], Creatinine [Mass/Vol] 1.04 mg/dL Normal 0.80-1.30 [facility] Comment on above: Performed By: #### Austyn Tamez, MG ####[facility] PATHOLOGY [id number] [place] [address], ESTIMATED GFR (CKD-EPI) 70 mL/min/1.73sqm Normal >=60 [facility] Comment on above: Performed By: #### Austyn Tamez, MG ####S PATHOLOGY [id number] [place] [address], Glucose [Mass/Vol] 103 mg/dL Normal 80-116 [facility] Comment on above: Performed By: #### Austyn Tamez, MG ####S PATHOLOGY [id number] [place] [address], Potassium [Moles/Vol] 3.7 mmol/L Normal 3.3-5.3 [facility] Comment on above: Performed By: #### Austyn Tamez, MG ####[facility] PATHOLOGY [id number] [place] [address], Sodium [Moles/Vol] 144 mmol/L Normal 135-148 [facility] Comment on above: Performed By: #### Austyn Tamez, MG ####[facility] PATHOLOG[facility] [id number] [place] [address], Urea nitrogen [Mass/Vol] 18 mg/dL Normal 8-22 [facility] Comment on above: Performed By: ###Sabrina Tamez, MG ####S PATHOLOGY [id number] [place] [address], COMPLETE BLOOD COUNTon 02-09 Erythrocyte distribution width (RBC) [Ratio] 14.0 % Normal 11.5-14.5 [facility] Comment on above: Performed By: #### Austyn FAJARDO ####S PATHOLOGY [id number] [place] [address], Hematocrit (Bld) [Volume fraction] 29.9 % Low 41.0-53.0 [facility] Comment on above: Performed By: #### Austyn FAJARDO ####S PATHOLOGY [id number] [place], Hemoglobin (Bld) [Mass/Vol] 10.1 g/dL Low 13.9-16.3 [facility] Comment on above: Performed By: #### C BC ####[facility] [id number] [place], MCH (RBC) [Entitic mass] 31.7 pg Normal 26.0-34.0 [facility] Comment on above: Performed By: #### C BC ####[facility] [id number] [place], MCHC (RBC) [Mass/Vol] 33.7 g/dL Normal 32.0-35.9 [facility] Comment on above: Performed By: #### C BC ####[facility] PATHOLOG[facility] [id number] [place] [address], MCV (RBC) [Entitic vol] 94 fL Normal 80-100 [facility] Comment on above: Performed By: #### C BC ####[facility] [id number] [place], Platelet mean volume (Bld) [Entitic vol] 10.8 fL Normal 7.5-11.2 [facility] Comment on above: Performed By: #### C BC ####[facility] PATHOLOG[facility] [id number] [place], Platelets (Bld) [#/Vol] 92 10*3/uL Low 150-400 [facility] Comment on above: Performed By: #### C BC ####[facility] PATHOLOG[facility] [id number] [place], RBC (Bld) [#/Vol] 3.18 10*6/uL Low 4.50-5.90 [facility] Comment on above: Performed By: #### C BC ####[facility] [id number] [place], WBC (Bld) [#/Vol] 6.5 10*3/uL Normal 4.5-11.5 [facility] Comment on above: Performed By: #### C BC ####[facility] PATHOLOG[facility] [id number] [place], Care Plan Noteon 02-09-2021 [employer] Operator Authentication Interface Message Text Normal [facility] [employer] Operator Authentication Interface Message Text Normal [facility] Consultson 02-09-2021 [employer] Operator Authentication Interface Message Text Normal [facility] MAGNESIUMon 02-09-2021 Magnesium [Mass/Vol] 2.0 mg/dL Normal 1.6-2.8 [facility] Comment on above: Performed By: #### C H8, MG ####[facility] [id number] [place], Progress Noteson 02-09-2021 [employer] Operator Authentication Interface Message Text Normal [facility] [employer] Operator Authentication Interface Message Text Normal [facility] XR CHEST AP OR PA 1 VIEWon 0 02-09-2021 XR CHEST AP OR PA 1 VIEW Normal [facility] 1:1 Interactionon 02-08-2021 [employer] Operator Authentication Interface Message Text Normal [facility] AMMONIAon 02-08-2021 AMMO 14 umol/L Normal 11-35 [facility] Comment on above: Performed By: #### A MMO ####S PATHOLOGY [id number] [place], BASIC METABOLIC PANELon 01-29 Anion gap [Moles/Vol] 8 mmol/L Normal 5-13 [facility] Comment on above: Performed By: #### C H8, MG, CK ####[facility] [id number] [place], Calcium [Mass/Vol] 8.2 mg/dL Low 8.4-10.4 [facility] Comment on above: Performed By: #### Austyn H8, MG, CK ####[facility] [id number] [place], Chloride [Moles/Vol] 117 mmol/L High 97-111 [facility] Comment on above: Performed By: #### C H8, MG, CK ####[facility] [id number] [place], CO2 [Moles/Vol] 22 mmol/L Normal 21-30 [facility] Comment on above: Performed By: #### Austyn Tamez MG, CK ####S PATHOLOGY [id number] [place], Creatinine [Mass/Vol] 0.99 mg/dL Normal 0.80-1.30 [facility] Comment on above: Performed By: #### Austyn Tamez MG, CK ####[facility] PATH[facility] [id number] [place], ESTIMATED GFR (CKD-EPI) 75 mL/min/1.73sqm Normal >=60 [facility] Comment on above: Performed By: #### Austyn Tamez MG, CK ####[facility] PATHOLOG[facility] [id number] [place], Glucose [Mass/Vol] 93 mg/dL Normal 80-116 [facility] Comment on above: Performed By: #### Austyn Tamez MG, CK ####[facility] PATHOLOG[facility] [id number] [place], Potassium [Moles/Vol] 3.9 mmol/L Normal 3.3-5.3 [facility] Comment on above: Performed By: #### Austyn Tamez MG, CK ####[facility] [id number] [place], Sodium [Moles/Vol] 143 mmol/L Normal 135-148 [facility] Comment on above: Performed By: #### Austyn Tamez MG, CK ####S PATHOLOGY [id number] [place], Urea nitrogen [Mass/Vol] 17 mg/dL Normal 8-22 [facility] Comment on above: Performed By: #### Austyn HSajan MG, CK ####S PATHOLOGY [id number] [place], BLOOD GAS, ARTERIALon 2020 CR % O2 SAT > 99.4 Normal >=95.1 [facility] Comment on above: Performed By: #### Austyn R BGA ####S PATHOLOGY [id number] [place], CR MAYCOL -3.3 mmol/L Low -2.0-2.0 [facility] Comment on above: Performed By: #### C R BGA ####[facility] [id number] [place], CR PCO2 30.3 mm Hg Low 35.0-45.0 [facility] Comment on above: Performed By: #### C R BGA ####[facility] PATHOLOGY [id number] [place] [address], CR PHA 7.430 Normal 7.35-7.45 [facility] Comment on above: Performed By: #### C R BGA ####[facility] PATHOLOGY [id number] [place] [address], CR PO2 179 mm Hg High 80-100 mm Hg [facility] Comment on above: Performed By: #### C R BGA ####[facility] [id number] [place] [address], FIO2 (CATEGORY) 5 LPM Normal [facility] Comment on above: Performed By: #### C R BGA ####[facility] [id number] [place] [address], HCO3 (Bld) [Moles/Vol] 20 mmol/L Low 22-28 [facility] Comment on above: Performed By: #### C R BGA ####[facility] [id number] [place], [place], MODE Nasal Canula Normal [facility] Comment on above: Performed By: #### C R BGA ####[facility] [id number] [place] [address], COMPLETE BLOOD COUNTon 02-08 Erythrocyte distribution width (RBC) [Ratio] 14.3 % Normal 11.5-14.5 [facility] Comment on above: Performed By: #### C BC ####[facility] [id number] [place], [place], Hematocrit (Bld) [Volume fraction] 31.5 % Low 41.0-53.0 [facility] Comment on above: Performed By: #### C BC ####[facility] [id number] [place], [place], Hemoglobin (Bld) [Mass/Vol] 10.4 g/dL Low 13.9-16.3 [facility] Comment on above: Performed By: #### C BC ####[facility] [id number] [place], MCH (RBC) [Entitic mass] 31.1 pg Normal 26.0-34.0 [facility] Comment on above: Performed By: #### C BC ####[facility] [id number] [place], MCHC (RBC) [Mass/Vol] 33.1 g/dL Normal 32.0-35.9 [facility] Comment on above: Performed By: #### C BC ####[facility] [id number] [place], MCV (RBC) [Entitic vol] 94 fL Normal 80-100 [facility] Comment on above: Performed By: #### C BC ####[facility] [id number] [place], Platelet mean volume (Bld) [Entitic vol] 11.0 fL Normal 7.5-11.2 [facility] Comment on above: Performed By: #### C BC ####[facility] [id number] [place], Platelets (Bld) [#/Vol] 80 10*3/uL Low 150-400 [facility] Comment on above: Performed By: #### C BC ####[facility] [id number] [place], RBC (Bld) [#/Vol] 3.34 10*6/uL Low 4.50-5.90 [facility] Comment on above: Performed By: #### C BC ####[facility] [id number] [place], WBC (Bld) [#/Vol] 6.9 10*3/uL Normal 4.5-11.5 [facility] Comment on above: Performed By: #### C BC ####[facility] [id number] [place], [place], CREATINE KINASEon 02-08-2021 CK [Catalytic activity/Vol] 1850 U/L High 57-374 [facility] Comment on above: Performed By: #### C H8, MG, CK ####[facility] [id number] [place], [place], CT CEREBRAL PERFUSION W/+W/O CONTRASTon 02-08-2021 CT CEREBRAL PERFUSION W/+W/O CONTRAST Normal [facility] Care Plan Noteon 02-08-2021 Precision Thread Grinder Operator Authentication Interface Message Text Normal [facility] Prec[employer] Thread Grinder Operator Authentication Interface Message Text Normal [facility] Consultson 02-08-2021 [employer] Thread Grinder Operator Authentication Interface Message Text Normal [facility] Precision Thread Grinder Operator Authentication Interface Message Text Normal [facility] Prec[employer] Thread Grinder Operator Authentication Interface Message Text Normal [facility] Prec[employer] Thread Grinder Operator Authentication Interface Message Text Normal [facility] FULL LIPID PROFILEon 021 Cholesterol [Mass/Vol] 139 mg/dL Normal <181 [facility] Comment on above: Performed By: #### H DL ####[facility] [id number] [place], Cholesterol in LDL [Mass/Vol] 85 mg/dL Normal <111 [facility] Comment on above: Performed By: #### H DL ####[facility] [id number] [place], Cholesterol.total/Chol esterol in HDL [Mass ratio] 3.48 {ratio} Normal [facility] Comment on above: Performed By: #### H DL ####S PATHOLOGY [id number] [place], HDL CHOL 40 mg/dL Low >44 [facility] Comment on above: Performed By: #### H DL ####S PATHOLOGY [id number] [place], LDL/HDL 2.13 Normal <3.57 [facility] Comment on above: Performed By: #### H DL ####S PATHOLOGY [id number] [place], NON-HDL CHOLESTEROL 99 mg/dL Normal <130 [facility] Comment on above: Performed By: #### H DL ####S PATHOLOGY [id number] [place], Triglyceride [Mass/Vol] 108 mg/dL Normal <151 [facility] Comment on above: Performed By: #### H DL ####[facility] [id number] [place], MAGNESIUMon 02-08-2021 Magnesium [Mass/Vol] 1.8 mg/dL Normal 1.6-2.8 [facility] Comment on above: Performed By: #### M G ####[facility] [id number] [place], Magnesium [Mass/Vol] 1.7 mg/dL Normal 1.6-2.8 [facility] Comment on above: Performed By: #### C H8, MG, CK ####[facility] [id number] [place], [place], Procedureson 02-08-2021 [employer] Thread Grinder Operator Authentication Interface Message Text Normal [facility] Precision Thread Grinder Operator Authentication Interface Message Text Normal [facility] Precision Thread Grinder Operator Authentication Interface Message Text Normal [facility] Progress Noteson 02-08-2021 Prec[employer] Thread Grinder Operator Authentication Interface Message Text Normal [facility] Prec[employer] Grinder Operator Authentication Interface Message Text Normal [facility] Prec[employer] Thread Grinder Operator Authentication Interface Message Text Normal [facility] Precision Thread Grinder Operator Authentication Interface Message Text Normal [facility] Precision Thread Grinder Operator Authentication Interface Message Text Normal [facility] XR ABDOMEN APon 02-08-2021 XR ABDOMEN AP Normal [facility] XR CHEST AP OR PA 1 VIEWon 0 02-08-2021 XR CHEST AP OR PA 1 VIEW Normal [facility] XR CHEST AP OR PA 1 VIEW Normal [facility] 1:1 Interactionon 02-07-2021 [employer] Grinder Operator Authentication Interface Message Text Normal [facility] BASIC METABOLIC PANELon 01-29 Anion gap [Moles/Vol] 11 mmol/L Normal 5-13 [facility] Comment on above: Performed By: #### P HOS, CH8, CK, MG ####[facility] [id number] [place], Calcium [Mass/Vol] 8.1 mg/dL Low 8.4-10.4 [facility] Comment on above: Performed By: #### P HOS, CH8, CK, MG ####[facility] [id number] [place], Chloride [Moles/Vol] 119 mmol/L High 97-111 [facility] Comment on above: Performed By: #### P HOS, CH8, CK, MG ####S PATHOLOGY [id number] [place], CO2 [Moles/Vol] 21 mmol/L Normal 21-30 [facility] Comment on above: Performed By: #### P HOS, CH8, CK, MG ####S PATHOLOGY [id number] [place], Creatinine [Mass/Vol] 1.05 mg/dL Normal 0.80-1.30 [facility] Comment on above: Performed By: #### P HOS, CH8, CK, MG ####S PATHOLOGY [id number] [place], ESTIMATED GFR (CKD-EPI) 70 mL/min/1.73sqm Normal >=60 [facility] Comment on above: Performed By: #### P HOS, CH8, CK, MG ####S PATHOLOGY [id number] [place], Glucose [Mass/Vol] 98 mg/dL Normal 80-116 [facility] Comment on above: Performed By: #### P HOS, CH8, CK, MG ####S PATHOLOGY [id number] [place], Potassium [Moles/Vol] 4.0 mmol/L Normal 3.3-5.3 [facility] Comment on above: Performed By: #### P HOS, CH8, CK, MG ####[facility] [id number] [place], Sodium [Moles/Vol] 147 mmol/L Normal 135-148 [facility] Comment on above: Performed By: #### P HOS, CH8, CK, MG ####[facility] [id number] [place], Urea nitrogen [Mass/Vol] 26 mg/dL High 8-22 [facility] Comment on above: Performed By: #### P HOS, CH8, CK, MG ####[facility] [id number] [place], BLOOD CULTUREon 02-07-2021 Bacteria identified Cx Nom (Bld) C BLOOD: No Growth Normal [facility] Comment on above: Order Comment: The r esults may be compromised due to inadequate volume of fluid received. A negative result does not rule out an infectious process. Performed By: #### C BLOOD ####[facility] Airsemffn4523 [place], [place] BLOOD GAS, ARTERIALon 2020 CR MAYCOL -4.3 mmol/L Low -2.0-2.0 [facility] Comment on above: Performed By: #### C R BGA ####[facility] [id number] [place], [place], CR PCO2 35.1 mm Hg Normal 35.0-45.0 [facility] Comment on above: Performed By: #### C R BGA ####[facility] [id number] [place], CR PHA 7.371 Normal 7.35-7.45 [facility] Comment on above: Performed By: #### C R BGA ####[facility] [id number] [place], CR PO2 110 mm Hg High 80-100 mm Hg [facility] Comment on above: Performed By: #### C R BGA ####[facility] [id number] [place], FIO2 (CATEGORY) 40% Normal [facility] Comment on above: Performed By: #### C R BGA ####[facility] [id number] [place], HCO3 (Bld) [Moles/Vol] 20 mmol/L Low 22-28 [facility] Comment on above: Performed By: #### C R BGA ####[facility] [id number] [place], MODE Vent Normal [facility] Comment on above: Performed By: #### C R BGA ####[facility] [id number] [place], Oxygen saturation in Blood 98.0 % Normal >=95.1 [facility] Comment on above: Performed By: #### C R BGA ####[facility] [id number] [place], CALCIUM, IONIZEDon CR ICA 1.17 mmol/L Normal 1.10-1.40 [facility] Comment on above: Performed By: #### C R ICA, LACT ####[facility] [id number] [place] [address], COMPLETE BLOOD COUNTon 02-07 Erythrocyte distribution width (RBC) [Ratio] 14.7 % High 11.5-14.5 [facility] Comment on above: Performed By: #### C BC ####[facility] [id number] [place] [address], Hematocrit (Bld) [Volume fraction] 33.4 % Low 41.0-53.0 [facility] Comment on above: Performed By: #### C BC ####[facility] [id number] [place], Hemoglobin (Bld) [Mass/Vol] 10.7 g/dL Low 13.9-16.3 [facility] Comment on above: Performed By: #### C BC ####[facility] [id number] [place], MCH (RBC) [Entitic mass] 30.2 pg Normal 26.0-34.0 [facility] Comment on above: Performed By: #### C BC ####[facility] [id number] [place], MCHC (RBC) [Mass/Vol] 32.0 g/dL Normal 32.0-35.9 [facility] Comment on above: Performed By: #### C BC ####[facility] [id number] [place], MCV (RBC) [Entitic vol] 94 fL Normal 80-100 [facility] Comment on above: Performed By: #### C BC ####[facility] [id number] [place], Platelet mean volume (Bld) [Entitic vol] 10.4 fL Normal 7.5-11.2 [facility] Comment on above: Performed By: #### C BC ####[facility] [id number] [place] [address], Platelets (Bld) [#/Vol] 86 10*3/uL Low 150-400 [facility] Comment on above: Performed By: #### C BC ####[facility] [id number] [place] [address], RBC (Bld) [#/Vol] 3.54 10*6/uL Low 4.50-5.90 [facility] Comment on above: Performed By: #### C BC ####[facility] [id number] [place] [address], WBC (Bld) [#/Vol] 8.2 10*3/uL Normal 4.5-11.5 [facility] Comment on above: Performed By: #### C BC ####[facility] [id number] [place] [address], Erythrocyte distribution width (RBC) [Ratio] 14.9 % High 11.5-14.5 [facility] Comment on above: Performed By: #### C BC ####[facility] [id number] [place] [address], Hematocrit (Bld) [Volume fraction] 34.6 % Low 41.0-53.0 [facility] Comment on above: Performed By: #### C BC ####[facility] [id number] [place] [address], Hemoglobin (Bld) [Mass/Vol] 11.5 g/dL Low 13.9-16.3 [facility] Comment on above: Performed By: #### C BC ####[facility] [id number] [place], MCH (RBC) [Entitic mass] 31.8 pg Normal 26.0-34.0 [facility] Comment on above: Performed By: #### C BC ####[facility] [id number] [place], MCHC (RBC) [Mass/Vol] 33.2 g/dL Normal 32.0-35.9 [facility] Comment on above: Performed By: #### C BC ####[facility] [id number] [place] [address], MCV (RBC) [Entitic vol] 96 fL Normal 80-100 [facility] Comment on above: Performed By: #### C BC ####[facility] [id number] [place] [address], Platelet mean volume (Bld) [Entitic vol] 10.7 fL Normal 7.5-11.2 [facility] Comment on above: Performed By: #### C BC ####[facility] [id number] [place] [address], Platelets (Bld) [#/Vol] 85 10*3/uL Low 150-400 [facility] Comment on above: Performed By: #### C BC ####[facility] [id number] [place] [address], RBC (Bld) [#/Vol] 3.62 10*6/uL Low 4.50-5.90 [facility] Comment on above: Performed By: #### C BC ####[facility] [id number] [place] [address], WBC (Bld) [#/Vol] 10.6 10*3/uL Normal 4.5-11.5 [facility] Comment on above: Performed By: #### C BC ####[facility] [id number] [place], CREATINE KINASEon 02-07-2021 CK [Catalytic activity/Vol] 1944 U/L High 57-374 [facility] Comment on above: Performed By: #### C K ####[facility] [id number] [place], CK [Catalytic activity/Vol] 1978 U/L High 57-374 [facility] Comment on above: Performed By: #### C K ####[facility] [id number] [place], CK [Catalytic activity/Vol] 2265 U/L High 57-374 [facility] Comment on above: Performed By: #### P HOS, CH8, CK, MG ####[facility] [id number] [place], CK [Catalytic activity/Vol] 2537 U/L High 57-374 [facility] Comment on above: Performed By: #### C K ####[facility] [id number] [place], Care Plan Noteon 02-07-2021 Precision Thread Grinder Operator Authentication Interface Message Text Normal [facility] Consultson 02-07-2021 Precision Thread Grinder Operator Authentication Interface Message Text Normal [facility] Precision Thread Grinder Operator Authentication Interface Message Text Normal [facility] Precision Thread Grinder Operator Authentication Interface Message Text Normal [facility] GLUCOSE, FINGERSTICK-IN OFFI CEon 02-07-2021 Glucose [Mass/Vol] 92 mg/dL Normal 80-116 [facility] Comment on above: Performed By: #### 8 2948 ####NURSING GLUCOSE [id number] [place], [address] Glucose [Mass/Vol] 82 mg/dL Normal 80-116 [facility] Comment on above: Performed By: #### 8 2948 ####NURSING GLUCOSE [id number] [place], [address] Glucose [Mass/Vol] 89 mg/dL Normal 80-116 [facility] Comment on above: Performed By: #### 8 2948 ####NURSING GLUCOSE [id number] [place], [address] LACTIC ACIDon 02-07-2021 CR LACT 1.0 mmol/L Normal 0.5-2.0 [facility] Comment on above: Performed By: #### C R ICA, LACT ####S PATHOLOGY [id number] [place], MAGNESIUMon 02-07-2021 Magnesium [Mass/Vol] 2.0 mg/dL Normal 1.6-2.8 [facility] Comment on above: Performed By: #### P HOS, CH8, CK, MG ####[facility] [id number] [place], NOVEL CORONAVIRUS (COVID-19) on 02-07-2021 SARS-CoV-2 (COVID-19) RNA RICK+probe Ql (Unsp spec) Not detected Normal Not Detected [facility] Comment on above: Order Comment: This test is intended for use only under Emergency Use Authorization (EUA). This test was developed, and its performance characteristics determined by [facility] which is certified under CLIA as qualified to perform high complexity clinical laboratory testing. Result Comment: This assay was performed using [employer] RTPCR technology. Performed By: #### C OVID19 ####[facility] [id number] [place], PHOSPHORUSon 02-07-2021 Phosphate [Mass/Vol] 2.5 mg/dL Normal 2.3-4.2 [facility] Comment on above: Performed By: #### P HOS, CH8, CK, MG ####[facility] [id number] [place], Procedureson 02-07-2021 Precision Thread Grinder Operator Authentication Interface Message Text Normal [facility] Progress Noteson 02-07-2021 Precision Thread Grinder Operator Authentication Interface Message Text Normal [facility] Precision Thread Grinder Operator Authentication Interface Message Text Normal [facility] Precision Thread Grinder Operator Authentication Interface Message Text Normal [facility] Precision Thread Grinder Operator Authentication Interface Message Text Normal [facility] Precision Thread Grinder Operator Authentication Interface Message Text Normal [facility] TOXICOLOGY SCREEN, UNCONFIRM EDon 02-07-2021 AMPH Negative Normal Negative [facility] Comment on above: Order Comment: This [...] toxicology consultation please call the laboratory at [phone]. Performed By: #### T OX CT ####S PATHOLOGY [id number] [place] [address], [id number] BARBIT Negative Normal Negative [facility] [employer] [facility] Comment on above: Order Comment: This [...] toxicology consultation please call the laboratory at [phone]. Performed By: #### T OX CT ####S PATHOLOGY [id number] [place] [address], BENZO Positive Abnormal Negative [facility] [employer] [facility] Comment on above: Order Comment: This [...] toxicology consultation please call the laboratory at [phone]. Performed By: #### T OX CT ####S PATHOLOGY [id number] [place], COCAINE CL Negative Normal Negative [facility] [employer] [facility] Comment on above: Order Comment: This [...] toxicology consultation please call the laboratory at [phone]. Performed By: #### T OX CT ####S PATHOLOGY [id number] [place], Ethanol [Mass/Vol] Negative Normal Cutoff: 1 0 mg/dL [facility] [employer] [facility] Comment on above: Order Comment: This [...] toxicology consultation please call the laboratory at [phone]. Performed By: #### T OX CT ####S PATHOLOGY [id number] [place], FENTANYL Positive Abnormal Negative [facility] [employer] [facility] Comment on above: Order Comment: This [...] toxicology consultation please call the laboratory at [phone]. Performed By: #### T OX SC ####S PATHOLOGY [id number] [place], HYDROCODONE (PM) Negative Normal Negative [facility] [employer] [facility] Comment on above: Order Comment: This [...] toxicology consultation please call the laboratory at [phone]. Performed By: #### T OX SC ####S PATHOLOGY [id number] [place], Methadone Ql (U) Negative Normal Negative [facility] [employer] [facility] Comment on above: Order Comment: This [...] toxicology consultation please call the laboratory at [phone]. Performed By: #### T OX SC ####S PATHOLOGY [id number] [place], NORBUPRENORPHINE Negative Normal Cutoff: 10 ng/mL [facility] [employer] [facility] Comment on above: Order Comment: This [...] toxicology consultation please call the laboratory at [phone]. Performed By: #### T OX SC ####S PATHOLOGY [id number] [place], OPIATE Negative Normal Negative [facility] [employer] Comment on above: Order Comment: This toxicology [...] toxicology consultation please call the laboratory at [phone]. Performed By: #### T OX SC ####S PATHOLOGY [id number] [place], OXYCODONE Positive Abnormal Cutoff: 100 [facility] [employer] [facility] Comment on above: Order Comment: This [...] toxicology consultation please call the laboratory at [phone]. Result Comment: Oxyc odone and metabolites of Oxycodone (Oxymorphone, Noroxycodone, and Noroxymorphone) are measured/detected in this assay method. Performed By: #### T OX CT ####[facility] [id number] [place], PHENCYCL Negative Normal Negative [facility] Comment on above: Order Comment: This [...] toxicology consultation please call the laboratory at [phone]. Performed By: #### T OX CT ####[facility] [id number] [place], THC CL Negative Normal Negative [facility] Comment on above: Order Comment: This [...] toxicology consultation please call the laboratory at [phone]. Performed By: #### T OX CT ####S PATHOLOGY [id number] [place], AMPH Negative Normal Negative [facility] [facility] Comment on above: Order Comment: This [...] toxicology consultation please call the laboratory at [phone]. Performed By: #### T OX CT ####[facility] [id number] [place], [place], BARBIT Negative Normal Negative [facility] [employer] [facility] Comment on above: Order Comment: This [...] toxicology consultation please call the laboratory at [phone]. Performed By: #### T OX CT ####[facility] PATH[facility] [id number] [place], [place], BENZO Positive Abnormal Negative [facility] [employer] [facility] Comment on above: Order Comment: This [...] toxicology consultation please call the laboratory at [phone]. Performed By: #### T OX SC ####S PATHOLOGY [id number] [place], [place], COCAINE CL Negative Normal Negative [facility] [employer] [facility] Comment on above: Order Comment: This [...] toxicology consultation please call the laboratory at [phone]. Performed By: #### T OX SC ####S PATHOLOGY [id number] [place], [place], Ethanol [Mass/Vol] Negative Normal Cutoff: 1 0 mg/dL [facility] Comment on above: Order Comment: This [...] toxicology consultation please call the laboratory at [phone]. Performed By: #### T OX SC ####S PATHOLOGY [id number] [place], [place], FENTANYL Positive Abnormal Negative [facility] Comment on above: Order Comment: This toxicology [...] toxicology consultation please call the laboratory at [phone]. Performed By: #### T OX SC ####S PATHOLOGY [id number] [place], [place], HYDROCODONE (PM) Negative Normal Negative [facility] [employer] [facility] Comment on above: Order Comment: This [...] toxicology consultation please call the laboratory at [phone]. Performed By: #### T OX SC ####S PATHOLOGY [id number] [place] [address], Methadone Ql (U) Negative Normal Negative [facility] [employer] [facility] Comment on above: Order Comment: This [...] toxicology consultation please call the laboratory at [phone]. Performed By: #### T OX SC ####S PATHOLOGY [id number] [place], NORBUPRENORPHINE Negative Normal Cutoff: 10 ng/mL [facility] [employer] [facility] Comment on above: Order Comment: This [...] toxicology consultation please call the laboratory at [phone]. Performed By: #### T OX CT ####[facility] PATH[facility] [id number] [place], OPIATE Negative Normal Negative [facility] [employer] [facility] Comment on above: Order Comment: This [...] toxicology consultation please call the laboratory at [phone]. Performed By: #### T OX CT ####S PATHOLOGY [id number] [place], OXYCODONE Positive Abnormal Cutoff: 100 [facility] [employer] [facility] Comment on above: Order Comment: This [...] toxicology consultation please call the laboratory at [phone]. Result Comment: Oxyc odone and metabolites of Oxycodone (Oxymorphone, Noroxycodone, and Noroxymorphone) are measured/detected in this assay method. Performed By: #### T OX SC ####S PATHOLOGY [id number] [place], PHENCYCL Negative Normal Negative [facility] Comment on above: Order Comment: This [...] toxicology consultation please call the laboratory at [phone]. Performed By: #### T OX SC ####[facility] [id number] [place], THC CL Negative Normal Negative [facility] Comment on above: Order Comment: This [...] toxicology consultation please call the laboratory at [phone]. Performed By: #### T OX SC ####S PATHOLOGY [id number] [place], URINALYSISon 02-07-2021 Glucose Ql (U) Negative Normal Negative [facility] [employer] [facility] Comment on above: Order Comment: A [...] Performed By: #### u rinalysis ####S PATHOLOGY [id number] [place], Protein (U) [Mass/Vol] 30 mg/dL Abnormal Negative Th [facility] [employer] [facility] Comment on above: Order Comment: A [...] Performed By: #### u rinalysis ####S PATHOLOGY [id number] [place], SQUAMOUS EPITHELIAL 0-2 Normal 0-10 [facility] Comment on above: Order Comment: A [...] Performed By: #### u rinalysis ####S PATHOLOGY [id number] [place], [place], U APPEAR Hazy Normal Clear [facility] Comment on above: Order Comment: A [...] around 50%) Performed By: #### u rinalysis ####[facility] PATH[facility] [id number] [place] [address], U BILI Negative Normal Negative [facility] Comment on above: Order Comment: A [...] around 50%) Performed By: #### u rinalysis ####[facility] PATH[facility] [id number] [place] [address], U BLOOD Moderate Abnormal Negative [facility] Comment on above: Order Comment: A [...] around 50%) Performed By: #### u rinalysis ####[facility] PATH[facility] [id number] [place] [address], U COLOR Yellow Normal Yellow [facility] Comment on above: Order Comment: A [...] Performed By: #### u rinalysis ####S PATHOLOGY [id number] [place], [place] KETONE Negative Normal Negative [facility] Comment on above: Order Comment: A [...] around 50%) Performed By: #### u rinalysis ####[facility] PATH[facility] [id number] [place] [address], U LEUK Negative Normal Negative [facility] Comment on above: Order Comment: A [...] Performed By: #### u rinalysis ####S PATHOLOGY [id number] [place] [address], U MUCOUS Present Normal [facility] Comment on above: Order Comment: A [...] around 50%) Performed By: #### u rinalysis ####[facility] [id number] [place], [place] NITRITE Negative Normal Negative [facility] Comment on above: Order Comment: A [...] around 50%) Performed By: #### u rinalysis ####[facility] [id number] [place], [place] PH 5.0 Normal 5.0-8.0 [facility] Comment on above: Order Comment: A [...] around 50%) Performed By: #### u rinalysis ####[facility] [id number] [place], [place] RBC 31-100 Abnormal 0-2 [facility] Comment on above: Order Comment: A [...] around 50%) Performed By: #### u rinalysis ####[facility] [id number] [place], [place], [place] SG 1.045 High 1.005-1.030 [facility] Comment on above: Order Comment: A [...] around 50%) Performed By: #### u rinalysis ####[facility] [id number] [place], [place] UROBILI Negative Normal 0.1 - 1.0 [facility] Comment on above: Order Comment: A [...] around 50%) Performed By: #### u rinalysis ####[facility] [id number] [place], [place] WBC 3-5 Abnormal 0-2 [facility] Comment on above: Order Comment: A [...] Performed By: #### u rinalysis ####S PATHOLOGY [id number] [place], URINE MYOGLOBINon 02-07-2021 U CARLA Negative Normal Negative [facility] Comment on above: Performed By: #### U CARLA ####[facility] PATH[facility] [id number] [place], XR ANKLE LEFTon 02-07-2021 XR ANKLE LEFT Normal [facility] XR ANKLE RIGHT 2 VIEWon 01-29 XR ANKLE RIGHT 2 VIEW Normal [facility] XR CHEST AP OR PA 1 VIEWon 0 02-07-2021 XR CHEST AP OR PA 1 VIEW Normal [facility] XR CHEST AP OR PA 1 VIEW Normal [facility] BASIC METABOLIC PANELon Anion gap [Moles/Vol] 9 mmol/L Normal 5-13 [facility] Comment on above: Performed By: #### C H8, CK, MG, HEPATIC, PHOS ####S PATHOLOGY [id number] [place], Calcium [Mass/Vol] 6.5 mg/dL Low 8.4-10.4 [facility] Comment on above: Performed By: #### C H8, CK, MG, HEPATIC, PHOS ####[facility] [id number] [place], Chloride [Moles/Vol] 113 mmol/L High 97-111 [facility] Comment on above: Performed By: #### C H8, CK, MG, HEPATIC, PHOS ####[facility] [id number] [place], CO2 [Moles/Vol] 18 mmol/L Low 21-30 [facility] Comment on above: Performed By: #### C H8, CK, MG, HEPATIC, PHOS ####S PATHOLOGY [id number] [place], Creatinine [Mass/Vol] 0.96 mg/dL Normal 0.80-1.30 [facility] Comment on above: Performed By: #### C H8, CK, MG, HEPATIC, PHOS ####[facility] [id number] [place], ESTIMATED GFR (CKD-EPI) 78 mL/min/1.73sqm Normal >=60 [facility] Comment on above: Performed By: #### C H8, CK, MG, HEPATIC, PHOS ####S PATHOLOGY [id number] [place], Glucose [Mass/Vol] 87 mg/dL Normal 80-116 [facility] Comment on above: Performed By: #### C H8, CK, MG, HEPATIC, PHOS ####S PATHOLOGY [id number] [place] [address], Potassium [Moles/Vol] 4.2 mmol/L Normal 3.3-5.3 [facility] Comment on above: Result Comment: Hemo lysis present Performed By: #### C H8, CK, MG, HEPATIC, PHOS ####[facility] [id number] [place], Sodium [Moles/Vol] 136 mmol/L Normal 135-148 [facility] Comment on above: Performed By: #### C H8, CK, MG, HEPATIC, PHOS ####S PATHOLOGY [id number] [place], Urea nitrogen [Mass/Vol] 26 mg/dL High 8-22 [facility] Comment on above: Performed By: #### C H8, CK, MG, HEPATIC, PHOS ####[facility] [id number] [place], BLOOD GAS, ARTERIALon 2020 CR MAYCOL -4.6 mmol/L Low -2.0-2.0 [facility] Comment on above: Performed By: #### C R BGA ####[facility] [id number] [place], CR PCO2 37.3 mm Hg Normal 35.0-45.0 [facility] Comment on above: Performed By: #### C R BGA ####[facility] [id number] [place], CR PHA 7.349 Low 7.35-7.45 [facility] Comment on above: Performed By: #### C R BGA ####[facility] PATHOLOG[facility] [id number] [place] [address], CR PO2 113 mm Hg High 80-100 mm Hg [facility] Comment on above: Performed By: #### C R BGA ####[facility] PATHOLOG[facility] [id number] [place] [address], FIO2 (CATEGORY) 40% Normal [facility] Comment on above: Performed By: #### C R BGA ####[facility] PATH[facility] [id number] [place] [address], HCO3 (Bld) [Moles/Vol] 20 mmol/L Low 22-28 [facility] Comment on above: Performed By: #### C R BGA ####[facility] PATH[facility] [id number] [place] [address], MODE Vent Normal [facility] Comment on above: Result Comment: 500 x 16 +5 Performed By: #### C R BGA ####[facility] PATH[facility] [id number] [place] [address], Oxygen saturation in Blood 98.2 % Normal >=95.1 [facility] Comment on above: Performed By: #### C R BGA ####[facility] [id number] [place], CBC WITH DIFFERENTIALon 06-0 -2020 Basophils (Bld) [#/Vol] 0.02 10*3/uL Normal 0.00-0.20 [facility] Comment on above: Performed By: #### C BCDSAT ####[facility] PATHOLOG[facility] [id number] [place] [address], Basophils/100 WBC (Bld) 0.2 % Normal <=1.9 [facility] Comment on above: Performed By: #### C BCDSAT ####[facility] PATH[facility] [id number] [place], Eosinophils (Bld) [#/Vol] 0.00 10*3/uL Normal 0.00-0.70 [facility] Comment on above: Performed By: #### C BCDSAT ####[facility] PATHOLOG[facility] [id number] [place] [address], Eosinophils/100 WBC (Bld) 0.0 % Low 0.1-4.0 [facility] Comment on above: Performed By: #### C BCDSAT ####[facility] PATHOLOG[facility] [id number] [place] [address], Erythrocyte distribution width (RBC) [Ratio] 14.6 % High 11.5-14.5 [facility] Comment on above: Performed By: #### C BCDSAT ####[facility] PATHOLOG[facility] [id number] [place] [address], Hematocrit (Bld) [Volume fraction] 37.5 % Low 41.0-53.0 [facility] Comment on above: Performed By: #### C BCDSAT ####[facility] PATH[facility] [id number] [place] [address], Hemoglobin (Bld) [Mass/Vol] 12.2 g/dL Low 13.9-16.3 [facility] Comment on above: Performed By: #### C BCDSAT ####[facility] PATHOLOG[facility] [id number] [place] [address], Lymphocytes (Bld) [#/Vol] 1.55 10*3/uL Normal 1.00-4.80 [facility] Comment on above: Performed By: #### C BCDSAT ####[facility]OLOG[facility] [id number] [place] [address], Lymphocytes/100 WBC (Bld) 12.9 % Low 24.0-44.0 [facility] Comment on above: Performed By: #### C BCDSAT ####[facility] [id number] [place], MCH (RBC) [Entitic mass] 30.6 pg Normal 26.0-34.0 [facility] Comment on above: Performed By: #### Austyn ALLENAT ####[facility] [id number] [place], MCHC (RBC) [Mass/Vol] 32.5 g/dL Normal 32.0-35.9 [facility] Comment on above: Performed By: #### Austyn ALLENAT ####[facility] [id number] [place], MCV (RBC) [Entitic vol] 94 fL Normal 80-100 [facility] Comment on above: Performed By: #### Austyn ALLENAT ####[facility] [id number] [place], MONOCYTE DISTRIBUTION WIDTH 22 High <=20 [facility] Comment on above: Performed By: #### Austyn ALLENAT ####[facility] [id number] [place], Monocytes (Bld) [#/Vol] 1.48 10*3/uL High 0.20-1.00 [facility] Comment on above: Performed By: #### Austyn ALLENAT ####[facility] [id number] [place], Monocytes/100 WBC (Bld) 12.4 % High 2.0-11.0 [facility] Comment on above: Performed By: #### Austyn ALLENAT ####[facility] [id number] [place], Neutrophils (Bld) [#/Vol] 8.92 10*3/uL High 1.50-8.00 [facility] Comment on above: Performed By: #### Austyn ALLENAT ####[facility] [id number] [place], Neutrophils/100 WBC (Bld) 74.5 % Normal 31.0-76.0 [facility] Comment on above: Performed By: #### C BCDSAT ####[facility] [id number] [place], Platelet mean volume (Bld) [Entitic vol] 11.2 fL Normal 7.5-11.2 [facility] Comment on above: Performed By: #### C BCDSAT ####[facility] [id number] [place], Platelets (Bld) [#/Vol] 96 10*3/uL Low 150-400 [facility] Comment on above: Performed By: #### C BCDSAT ####[facility] [id number] [place], RBC (Bld) [#/Vol] 3.98 10*6/uL Low 4.50-5.90 [facility] Comment on above: Performed By: #### C BCDSAT ####[facility] [id number] [place], WBC (Bld) [#/Vol] 12.0 10*3/uL High 4.5-11.5 [facility] Comment on above: Performed By: #### C BCDSAT ####[facility] [id number] [place], COMPLETE BLOOD COUNTon 02-06 Erythrocyte distribution width (RBC) [Ratio] 14.8 % High 11.5-14.5 [facility] Comment on above: Performed By: #### C BC ####[facility] [id number] [place], Hematocrit (Bld) [Volume fraction] 36.9 % Low 41.0-53.0 [facility] Comment on above: Performed By: #### C BC ####[facility] [id number] [place], Hemoglobin (Bld) [Mass/Vol] 12.0 g/dL Low 13.9-16.3 [facility] Comment on above: Performed By: #### C BC ####[facility] [id number] [place], MCH (RBC) [Entitic mass] 30.5 pg Normal 26.0-34.0 [facility] Comment on above: Performed By: #### C BC ####[facility] [id number] [place], MCHC (RBC) [Mass/Vol] 32.4 g/dL Normal 32.0-35.9 [facility] Comment on above: Performed By: #### C BC ####[facility] [id number] [place], MCV (RBC) [Entitic vol] 94 fL Normal 80-100 [facility] Comment on above: Performed By: #### C BC ####[facility] [id number] [place], Platelet mean volume (Bld) [Entitic vol] 10.5 fL Normal 7.5-11.2 [facility] Comment on above: Performed By: #### C BC ####[facility] [id number] [place], Platelets (Bld) [#/Vol] 100 10*3/uL Low 150-400 [facility] Comment on above: Performed By: #### C BC ####[facility] [id number] [place], RBC (Bld) [#/Vol] 3.92 10*6/uL Low 4.50-5.90 [facility] Comment on above: Performed By: #### C BC ####[facility] [id number] [place], WBC (Bld) [#/Vol] 12.6 10*3/uL High 4.5-11.5 [facility] Comment on above: Performed By: #### C BC ####[facility] [id number] [place], CREATINE KINASEon 02-06-2021 CK [Catalytic activity/Vol] 1957 U/L High 57-374 [facility] Comment on above: Performed By: #### C H8, CK, MG, HEPATIC, PHOS ####[facility] [id number] [place], [place], CT C-SPINE W/O CONTRASTon CT C-SPINE W/O CONTRAST Normal [facility] CTA HEAD/NECK W/+W/O CONTRAS Ton 02-06-2021 CTA HEAD/NECK W/+W/O CONTRAST Normal [facility] Consultson 02-06-2021 [employer] Authentication Interface Message Text Normal [facility] ED Provider Noteson 02-07-20 [employer] Authentication Interface Message Text Normal [facility] ED Triage Noteson 02-06-2021 [employer] Authentication Interface Message Text 75M, found down, unresponsive Normal [facility] ETHANOL, SERUMon 02-06-2021 ETHANOL Normal None Detected [facility] Comment on above: Result Comment: Karyna sly hemolyzed, result is invalid.This is a corrected result. Previous result on 02/06/2021 at 1508 EDT was <5 mg/dL Performed By: #### E TOMAS ####[facility] [id number] [place], GLUCOSE, FINGERSTICK-IN OFFI CEon 02-06-2021 Glucose [Mass/Vol] 97 mg/dL Normal 80-116 [facility] Comment on above: Performed By: #### 8 2948 ####NURSING GLUCOSE [id number] [place], [address] Glucose [Mass/Vol] 108 mg/dL Normal 80-116 [facility] Comment on above: Performed By: #### 8 2948 ####NURSING GLUCOSE [id number] [place], [address] H AND Martin 02-06-2021 [employer] Authentication Interface Message Text Normal [facility] HEPATIC FUNCTION PANELon Albumin [Mass/Vol] 2.4 g/dL Low 3.4-5.1 [facility] Comment on above: Performed By: #### C H8, CK, MG, HEPATIC, PHOS ####[facility] [id number] [place], ALK 27 IU/L Low 40-200 [facility] Comment on above: Performed By: #### C H8, CK, MG, HEPATIC, PHOS ####S PATHOLOGY [id number] [place], ALT [Catalytic activity/Vol] 20 U/L Normal 7-40 [facility] Comment on above: Performed By: #### C H8, CK, MG, HEPATIC, PHOS ####S PATHOLOGY [id number] [place], AST [Catalytic activity/Vol] 48 U/L High 7-40 [facility] Comment on above: Result Comment: Hemo lysis present Performed By: #### C H8, CK, MG, HEPATIC, PHOS ####[facility] [id number] [place], Bilirubin [Mass/Vol] 1.3 mg/dL Normal 0.1-1.5 [facility] Comment on above: Performed By: #### Austyn H8, CK, MG, HEPATIC, PHOS ####[facility] [id number] [place] [address], Bilirubin.direct [Mass/Vol] 0.20 mg/dL Normal 0.10-0.30 [facility] Comment on above: Performed By: #### C H8, CK, MG, HEPATIC, PHOS ####[facility] [id number] [place] [address], Protein [Mass/Vol] 3.8 g/dL Low 5.7-8.1 [facility] Comment on above: Performed By: #### C H8, CK, MG, HEPATIC, PHOS ####[facility] [id number] [place] [address], LACTIC ACIDon 02-06-2021 CR LACT 0.9 mmol/L Normal 0.5-2.0 [facility] Comment on above: Performed By: #### L ACT ####[facility] [id number] [place] [address], CR LACT 2.8 mmol/L High 0.5-2.0 [facility] Comment on above: Performed By: #### L ACT ####[facility] [id number] [place] [address], MAGNESIUMon 02-06-2021 Magnesium [Mass/Vol] 2.2 mg/dL Normal 1.6-2.8 [facility] Comment on above: Result Comment: Hemo lysis present Performed By: #### C H8, CK, MG, HEPATIC, PHOS ####[facility] [id number] [place], PARTIAL THROMBOPLASTIN TIMEo n 02-06-2021 aPTT Coag (Bld) [Time] 28 s Normal 25-37 [facility] Comment on above: Performed By: #### A PTT, PT ####[facility] [id number] [place], PHOSPHORUSon 02-06-2021 Phosphate [Mass/Vol] 2.4 mg/dL Normal 2.3-4.2 [facility] Comment on above: Performed By: #### C H8, CK, MG, HEPATIC, PHOS ####[facility] [id number] [place], PROTHROMBIN TIME AND INRon 0 02-06-2021 INR Coag (PPP) [Relative time] 1.27 {INR} High 0.90-1.10 [facility] Comment on above: Performed By: #### A PTT, PT ####S PATHOLOGY [id number] [place], PT Coag (PPP) [Time] 14.3 s High 9.7-12.9 [facility] Comment on above: Performed By: #### A PTT, PT ####[facility] [id number] [place], [place], Progress Noteson 02-06-2021 Precision Thread Grinder Operator Authentication Interface Message Text Normal [facility]ision Thread Grinder Operator Authentication Interface Message Text Normal [facility] Precision Thread Grinder Operator Authentication Interface Message Text Normal [facility] TROPONIN Ion 02-06-2021 TROP I 0.102 ng/mL Normal <0.120 [facility] Comment on above: Result Comment: Rang [...] recommended. Performed By: #### T ROP I ####S PATHOLOGY [id number] [place], [place], TYPE AND SCREENon 02-06-2021 ABO and Rh group Nom (Bld) Blood group A Rh(D) positive Normal [facility] Comment on above: Performed By: #### T S ####[facility] PATHOLOGY [id number] [place], [place], ABO and Rh group Nom (Bld) No Previous Results Normal [facility] Comment on above: Performed By: #### T S ####S PATHOLOGY [id number] [place], [place], ABSC INT Negative Normal [facility] Comment on above: Performed By: #### T S ####[facility] PATHOLOGY [id number] [place], [place], XR ANKLE LEFTon 02-06-2021 XR ANKLE [...] RIGHT Normal [facility] Dermatopathologyon Dermatopathology [facility] Dermatopathology Laboratory [address] [place] [id number] DERMATOPATHOLOGY REPORT Name:CHOCO ACUNA [facility]. Rec #. [id number] Location: [facility] Date of Procedure: 04/05/2020 Race: Date Received: 04/09/2020 /Sex: 1945 (Age: 74) / M Date Reported: 04/10/2020 Other: Submitting Physician:VICTORINA WILKS MD FINAL DIAGNOSIS SKIN, L CHEEK, BIOPSY: ACTINIC KERATOSIS WITH ADNEXAL INVOLVEMENT, PRESENT ON THE DEEP AND PERIPHERAL MARGIN. Electronically Signed Out by BROCK OTT M.D. Electronically Signed Out By BROCK OTT MD/[facility] By the signature on this report, the individual or group listed as making the Final Interpretation/Diagn osis certifies that they have reviewed this case. Clinical History: 1.0x0.8cm AK vs. SCC. Biopsy. Specimens Submitted As: A: SKIN, L CHEEK Gross Description: Received in formalin is a huang piece of skin measuring [id number]. The specimen is inked and embedded in [...] The dermis shows elastotic actinic damage. Normal [facility] Comment on above: Performed By: #### D #### Dermatopathology Vital Signs Date Time Vital Sign Value Performing Clinician Faci lity 10-15-2023 13:16050 Body height 180.3 cm Gigi BARRIENTOSM Work Phone: [facility] 10-15-2023 13:16050 Body mass index (BMI) [Ratio] 29.57 kg/m2 Gigi uY DPM Work Phone: [facility] 10-15-2023 13:16050 Body weight 96.16 kg Gigi Yu DPM Work Phone: [facility] 10-15-2023 13:16-0500 Diastolic blood pressure 81 mm[Hg] Gigi Yu DPM Work Phone: [facility] 10-15-2023 13:16-0500 Heart rate 88 /min Gigi Yu DPM Work Phone: [facility] 10-15-2023 13:16-0500 Systolic blood pressure 130 mm[Hg] Gigi Yu DPM Work Phone: [facility] Encounters Encounter Date Encounter Type Care Provider Facility Start: 04-05-2024 End: 04-05-2024 ambulatory SWAPNA FONSECA Not Available Start: 03-10-2024 End: 03-10-2024 ambulatory GIGI YU Not Available Start: 02-24-2024 End: 02-24-2024 ambulatory JUAN RAMON FERRARA Not Available Start: 02-11-2024 End: 02-11-2024 ambulatory GIGI YU Not Available Start: 12-31-2023 End: 12-31-2023 ambulatory KARTHIK IRELAND Not Available Start: 12-24-2023 End: 12-24-2023 ambulatory GIGI YU Not Available Start: 11-30-2023 End: 12-01-2023 ambulatory SWAPNA FONSECA Facility:[facility] Start: 11-30-2023 End: 11-30-2023 Patient encounter procedure Lincoln MATTHEWS [facility] Start: 10-15-2023 Chart abstracting Gigi husain DPM Work Phone: [facility] Start: 10-15-2023 End: 10-15-2023 Office outpatient visit 15 minutes Gigi Yu DPM Work Phone: [facility] Comment on above: Venous insufficiency (Primary Dx); Other polyneuropathy; Onychomycosis; Toe pain, right; Toe pain, left; DJD (degenerative joint disease), ankle and foot, left Start: 10-15-2023 End: 10-15-2023 ambulatory GIGI YU Not Available Start: 09-17-2023 ambulatory SWAPNA FONSECA Facility :[facility] Start: 09-10-2023 End: 09-10-2023 ambulatory KARTHIK IRELAND Not Available Start: 02-12-2023 End: 09-10-2023 Patient encounter procedure Gigi Yu DPRajiv Work Phone: [facility] Start: 11-10-2022 End: 11-11-[address] KARTHIK IRELAND Facility:[facility] Start: 07-08-2022 End: 07-09-[address] KARTHIK [...] UNKNOWN PROVIDER Facili ty:[facility] Start: 02-08-2021 ambulatory ASTRIT HAJDARI Facility :[facility] Start: 02-07-2021 ambulatory UNKNOWN PROVIDER Facili ty:[facility] Start: 02-06-2021 End: 03-01-2021 Evaluation and management of inpatient ASTRIT HAJDARI Facility:[facility] Start: 02-06-2021 End: 02-06-2021 ambulatory UNKNOWN PROVIDER Facility:[facility] Procedures Date Procedure Procedure Detail Performing Clinician Start: 07-08-[address] RADHA IRELAND Comment on above: Performed By: #### P PEYTON VENTURA, RENEA #### [facility] [address] [place] [address] Dr. Karen Marie Colonoscopy [place] MATTHEWS Extraction of cataract Adam MATTHEWS Comment on above: Bilateral Eye Surgery Lincoln MATTHEWS Hernia repair Lincoln MATTHEWS Tonsillectomy Lincoln MATTHEWS Plan of Treatment Date Care Activity Detail Author Start: 02-13-2024 Medicare Annual Well ness (AWV) Medicare Annual Wellness (AWV) [facility] Start: 12-31-2023 End: 12-31-2023 Patient encounter procedure 12/31/2023 11:15 AM EDT Office Visit [facility] [address] [place] [address] Karthik Ireland, DO [address] [facility] [address] [place] [address] [facility] Start: 10-15-2023 End: 10-15-2023 Patient encounter procedure 10/15/2023 1:30 PM EST Procedure Visit [facility] [address] [facility] [address] [place] [address] Gigi Yu, DPM [address] [facility] [address] [place] [address] [facility] Immunizations Immunization Date Immunization Notes Care Provider Fa cility 08-18-2023 Pneumococcal Conjuga te PCV 20 Gigi Yu DPM Work Phone: [facility] 05-11-2023 Influenza, Seasonal, Quadrivalent, Adjuvanted Gigi Yu DPM Work Phone: [facility] Payers Date Payer Category Payer Medicare [facility] MEDICARE ADVANTAGE [facility] MEDICARE ADVANTAGE [id number] 2019-Present [address] [place] [address] [id number] 2018 Medicaid MEDICAID [place] [facility] [id number] 2018-Present [phone] [address] [place] [address] Medicaid [id number] 1959 Medicaid [id number] 1959 Medicare [id number] 1945 Unknown [id number] 2.16.840.1.869349.3.579.2.732 1945 Unknown [id number] 2.16.840.1.594436.3.579.2.73 1945 Unknown [id number] 2.16.840.1.362714.3.579.2.732 1945 Unknown [id number] 2.16.840.1.491263.3.579.2.732 1945 Unknown [id number] 2.16.840.1.475923.3.579.2.732 1945 Unknown [id number] 2.16.840.1.159499.3.579.2.732 1945 Unknown [id number] 2.16.840.1.647126.3.579.2.732 1945 Unknown [id number] 2.16.840.1.840514.3.579.2.732 1945 Unknown [id number] 2.16.840.1.844934.3.579.2.732 1945 Unknown [id number] 2.16.840.1.339474.3.579.2.732 1945 Unknown [id number] 2.16.840.1.637790.3.579.2.732 1945 Unknown [id number] 2.16.840.1.247505.3.579.2.732 1945 Unknown [id number] 2.16.840.1.511839.3.579.2.73 1945 Unknown [id number] 2.16.840.1.498043.3.579.2. 1945 Unknown [id number] 2.16.840.1.040539.3.579.2. 1945 Unknown [id number] 2.16.840.1.847708.3.579.2. 1945 Unknown [id number] 2.16.840.1.994864.3.579.2. 1945 Unknown [id number] 2.16.840.1.931732.3.579.2 1945 Unknown [id number] 2.16.840.1.526063.3.579.2 1945 Unknown [id number] 2.16.840.1.231646.3.579.2 1945 Unknown [id number] 2.16.840.1.181060.3.579.2 1945 Unknown [id number] 2.16.840.1.048222.3.579.2 1945 Unknown [id number] 2.16.840.1.756820.3.579.2. 1945 Unknown [id number] 2.16.840.1.337363.3.579.2. 1945 Unknown [id number] 2.16.840.1.701875.3.579.2. 1945 Unknown [id number] 2.16.840.1.804943.3.579.2. 1945 Unknown [id number] 2.16.840.1.228482.3.579.2 1945 Unknown [id number] 2.16.840.1.172454.3.579.2.732 1945 Unknown [id number] 2.16.840.1.187566.3.579.2.732 1945 Unknown [id number] 2.16.840.1.407863.3.579.2.732 1945 Unknown [id number] 2.16.840.1.028181.3.579.2.73 1945 Unknown [id number] 2.16.840.1.927217.3.579.2.73 1945 Unknown [id number] 2.16.840.1.010168.3.579.2.73 1945 Unknown [id number] 2.16.840.1.473278.3.579.2.73 1945 Unknown [id number] 2.16.840.1.460668.3.579.2.73 1945 Unknown [id number] 2.16.840.1.632537.3.579.2.732 1945 Unknown [id number] 2.16.840.1.042657.3.579.2.732 1945 Unknown [id number] 2.16.840.1.595384.3.579.2.73 1945 Unknown [id number] 2.16.840.1.389394.3.579.2.73 1945 Unknown [id number] 2.16.840.1.017591.3.579.2.732 1945 Unknown [id number] 2.16.840.1.401119.3.579.2.73 1945 Unknown [id number] 2.16.840.1.223781.3.579.2.593 1945 Unknown [id number] 2.16.840.1.062616.3.579.2.593 1945 Unknown [id number] 2.16.840.1.886226.3.579.2.593 1945 Unknown [id number] 2.16.840.1.933037.3.579.2.727 1945 Unknown [id number] 2.16.840.1.117165.3.579.2.1259 1946 Unknown [id number] 2.16.840.1.443146.3.579.2.1259 1946 Unknown [id number] 2.16.840.1.808017.3.579.2.1259 1946 Unknown [id number] 2.16.840.1.584654.3.579.2.1259 1946 Unknown [id number] 2.16.840.1.622889.3.579.2.1259 1946 Unknown [id number] 2.16.840.1.830525.3.579.2.1259 1945 Unknown [id number] 2.16.840.1.932434.3.579.2.1259 1945 Unknown [id number] 2.16.840.1.458043.3.579.2.1259 Social History Date Type Detail Facility Start: 02-12-2023 Tobacco smoking stat [facility] Ex-smoker [facility] End: 07-11-2021 History of tobacco use Current smoker [facility] End: 07-11-2021 History of tobacco use Cigarette Smoker [facility] History of tobacco use Passive smoker [facility] Start: 02-12-2023 Tobacco use and exposure Smokeless tobacco non-user [facility] Start: 09-10-2023 End: 10-15-2023 Alcohol intake Lifetime non-drinker (finding) [facility] Start: 02-12-2023 End: 09-10-2023 History of Social function [facility] Start: 02-12-2023 End: 09-10-2023 Tobacco use panel [facility] Start: 02-11-2023 Alcohol Comment Caffeine: 1-2 cups/day tea, 7up [facility] Start: 1945 Sex Assigned At Not on file N [facility] Start: 03-26-2020 Tobacco smoking status Never s moked tobacco (finding) [facility] Tobacco smoking status Never [facility] History of Present illness Narrative 10-15-2023 Gigi Yu, KATH - 10/15/2023 1:30 PM EST Note Date & Type Note Facility 10-15-2023 History of Presen t illness Narrative Patient: Choco Acuna : 1945 PCP: Karthik Ireland, SUBJECTIVE This is a 78 y.o. male that presents today with a CC of elongated, thick nails. Pt states nails have been elongated and thick for many years and cause pain with ambulation in shoegear. Pt has tried previous treatment with minimal relief. Pt presents today for nail care and treatment. Patient has positive history of peripheral neuropathy Patient states increased pain left ankle since prior fracture and has issues with degenerative joint disease to the ankle and is achy and painful at all times had multiple injections in the past with minimal improvement and states now he has increased swelling to bilateral lower extremities and would like to try compression stockings. 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 Dental caries GERD (gastroesophageal reflux disease) HTN (hypertension), benign (CMS/HCC) Lung granuloma (CMS/HCC) Marijuana smoker Myocardial infarction (CMS/HCC) OM (onychomycosis) Peripheral neuropathy Primary localized osteoarthrosis, lower leg Pulmonary embolism (CMS/HCC) Snuff user Thyroid nodule (CMS/HCC) Medications: Current Outpatient Medications: albuterol HFA 90 mcg/act inhaler, INHALE ONE (1) PUFF BY MOUTH EVERY 4 HOURS NEEDED FOR SHORTNESS OF BREATH/WHEEZING, Disp: 18 g, Rfl: 10 apixaban (Eliquis) 5 MG tablet, TAKE ONE (1) TABLET BY MOUTH TWICE DAILY, Disp: 180 tablet, Rfl: 3 aspirin (Aspirin Low Dose) 81 MG chewable tablet, CHEW AND SWALLOW 1 TABLET BY MOUTH ONCE DAILY, Disp: 90 tablet, Rfl: 3 calcium carbonate 1500 (600 Ca) MG tablet, TAKE ONE (1) TABLET BY MOUTH TWICE DAILY WITH MEALS, Disp: 180 tablet, Rfl: 3 cholecalciferol (Vitamin D-3) 25 MCG (1000 UT) capsule, Take by mouth Daily. as directed, Disp: , Rfl: cholecalciferol (Vitamin D3) 25 MCG (1000 UT) tablet, TAKE 1 TABLET BY MOUTH DAILY DIRECTED, Disp: 30 tablet, Rfl: 10 [employer] Fiber Laxative 625 MG tablet, TAKE 2 CAPSULES BY MOUTH EVERY DAY for 14, Disp: , Rfl: diclofenac sodium 1 % gel, APPLY TO AFFECTED AREA ON KNEE AND BACK 4 TIMES DAILY, Disp: 100 g, Rfl: 5 Fluticasone Furoate-Vilanterol (Breo Ellipta) 100-25 MCG/ACT aerosol powder , 1 puff in the morning., Disp: , Rfl: furosemide (Lasix) 40 MG tablet, Take 1 tablet (40 mg) by mouth in the morning., Disp: 90 tablet, Rfl: 3 furosemide (Lasix) 40 MG tablet, TAKE 1 TABLET BY MOUTH EVERY DAY FOR 90 DAYS, Disp: 90 tablet, Rfl: 3 gabapentin (Neurontin) 300 MG capsule, TAKE ONE (1) CAPSULE BY MOUTH TWICE DAILY, Disp: 60 capsule, Rfl: 10 hydrocortisone 1 % cream, Apply topically 2 (two) times a day., Disp: , Rfl: ibuprofen 800 MG tablet, Take 800 mg by mouth every 8 (eight) hours if needed., Disp: , Rfl: ipratropium-albuterol (Duo-Neb) 0.5-2.5 mg/3 mL nebulizer solution, Take 3 mL by nebulization in the morning and 3 mL at noon and 3 mL in the evening and 3 mL before bedtime., Disp: , Rfl: magnesium hydroxide (Milk of Magnesia) 400 MG/5ML suspension, Take by mouth every 6 (six) hours., Disp: , Rfl: metoprolol tartrate (Lopressor) 25 MG tablet, TAKE ONE (1) TABLET BY MOUTH TWICE DAILY WITH FOOD, Disp: 180 tablet, Rfl: 3 omeprazole (PriLOSEC) [address] capsule, TAKE ONE (1) CAPSULE BY MOUTH ONCE DAILY, Disp: 30 capsule, Rfl: 10 oxyCODONE (Roxicodone) 10 MG immediate release tablet, Take 1 tablet (10 mg) by mouth in the morning and 1 tablet (10 mg) in the evening and 1 tablet (10 mg) before bedtime., Disp: 90 tablet, Rfl: 0 Respiratory Therapy Supplies (Nebulizer/Tubing/Mouthpiece) kit, , Disp: , Rfl: simvastatin (Zocor) 40 MG tablet, Take 1 tablet (40 mg) by mouth at bedtime., Disp: 90 tablet, Rfl: 3 Spiriva HandiHaler 18 MCG inhalation capsule, Place 1 capsule (18 mcg) into inhaler and inhale in the morning., Disp: 90 capsule, Rfl: 3 tamsulosin (Flomax) 0.4 MG 24 hr capsule, TAKE ONE (1) CAPSULE BY MOUTH ONCE DAILY 30 MINUTES AFTER THE SAME MEAL, Disp: 30 capsule, Rfl: 10 tiZANidine (Zanaflex) 4 MG tablet, TAKE ONE (1) TABLET BY MOUTH TWICE DAILY NEEDED, Disp: 60 tablet, Rfl: 10 traZODone (Desyrel) 100 MG tablet, TAKE 1 TABLET BY MOUTH EVERY DAY AT BEDTIME NEEDED, Disp: 90 tablet, Rfl: 3 Social History: Social History Socioeconomic History Marital status: Spouse name: Not on file Number of children: Not on file Years of education: Not on file Highest education level: Not on file Occupational History Not on file Tobacco Use Smoking status: Former Types: Cigarettes Quit date: 07/11/2021 Years since quittin.2 Passive exposure: Past Smokeless tobacco: Never Vaping Use Vaping Use: Unknown Substance and Sexual Activity Alcohol use: Never Comment: Caffeine: 1-2 cups/day tea, 7up Drug use: Yes Types: Marijuana Sexual activity: Defer Partners: Decline to Answer Other Topics Concern Not on file Social History Narrative Not on file Social Determinants of Health Financial Resource Strain: Not on file Food Insecurity: Not on file Transportation Needs: Not on file Physical Activity: Not on file Stress: Not on file Social Connections: Not on file Intimate Partner Violence: Not on file Housing Stability: Not on file ROS: General: denies fever, chills, fatigue, malaise OBJECTIVE LE EXAM: DERM: Elongated thick yellow crumbly nails digits 1 through 10. Positive hair growth b/l feet. Plus one pitting edema to bilateral ankles VASC: Positive palpable pedal pulses bilaterally NEURO: Gross sensation diminished to bilateral feet ORTHO: Positive pain on palpation to nails 1 through 10 Deformity to left ankle with pes planovalgus left secondary to the ankle fracture in past Positive palpation left tibiotalar joint ASSESSMENT 1. Other polyneuropathy 2. Onychomycosis 3. Toe pain, right 4. Toe pain, left 5. DJD (degenerative joint disease), ankle and foot, left 6. Venous insufficiency PLAN Discussed proper foot care with patient today. Debride nails in length and thickness digits 1 through 10 Patient to continue with oral anti - inflammatories as needed for pain and recommended OTC medications such as tylenol or Ibuprofen Visit spent with patient education on condition and treatment of condition. Pt to continue with elevation of feet while resting or NWB. Discussed compression hose and the use of stockings for edema. Discussed condition in detail. Recommendation for jgcf-[id number]-[id number] compression stockings at this time and may consider prescription stockings in the future. Patient is to begin with dwqr-zhw-aacohaw compression stockings and discussed where to purchase today Gigi Yu DPM documented in this encounter [facility] Discharge instructions 09-15-2023 Note Date & Type Note Facility 09-15-2023 Hospital Discharg e instructions Follow Up Care 09/15/2023 10:44:19 With:BYRON MCCLOUD, Lincoln Patricia, URL Address: [facility] [address] [place] [address] [phone] When: Unknown [facility] Discharge summary note 02-28-2021 Note Date & Type Note Facility 02-28-2021 Note [facility] Clinical Note 02-07-2021 Note Date & Type Note Facility 02-07-2021 Note Problem: Restraint: Goal: Remain safe while in restraints and once discontinued Outcome: Progressing Restraints needed to maintain safety/airway [facility] Evaluation + Plan note Note Date & Type Note Facility Evaluation + Plan note No data available for this section [facility] Evaluation note Note Date & Type Note Facility Evaluation note Diagnosis Venous insufficiency- Primary Unspecified venous (peripheral) insufficiency Other polyneuropathy Onychomycosis Dermatophytosis of nail Toe pain, right Pain in soft tissues of limb Toe pain, left Pain in soft tissues of limb DJD (degenerative joint disease), ankle and foot, left documented in this encounter [facility] Progress note Note Date & Type Note Facility Progress note No data available for this section [facility] Summary Purpose Family History No Family History Records FoundNo Family History Records FoundNo Family History Records FoundNo Family History Records FoundNo Family History Records Found No data available for this section No Family History Records FoundNo Family History [...] section and content) DATE CREATED AUTHOR 04/11/2020 [facility] DATE CREATED AUTHOR AUTHOR'S ORGANIZ ATION 09/23/2021 [facility] DATE CREATED AUTHOR AUTHOR'S ORGANIZ ATION 10/07/2021 [facility] DATE CREATED AUTHOR AUTHOR'S ORGANIZ ATION 10/18/2021 [facility] Specialist DATE CREATED AUTHOR AUTHOR'S ORGANIZ ATION 11/17/2022 [facility] DATE CREATED AUTHOR AUTHOR'S ORGANIZ ATION 12/01/2023 [facility] DATE CREATED AUTHOR AUTHOR'S ORGANIZ ATION 04/07/2024 [facility] dical Specialists EPIC Care Teams (unrecognized sec tion and content) 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 Relationship Specialty Start Date End Date Karthik Ireland DO [address] [place] [address] PCP - General Internal Medicine 01/29/23 Karthik Ireland DO [address] [place] [address] PCP - Toña TELLEZ 05/01/23 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 [employer] provides no warranty or guarantee of the accuracy or completeness of information in this document.
--- NOTE | 2024-04-16 19:45 | ECG_ITS ---
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
--- NOTE | 2024-04-16 19:45 | XR_ITS ---
The [address] [address] Patient Name: CHOCO WHITE MRN: [id number] date: 1945 Sex: M Assigned Patient Location: ER Current Patient Location: ER Accession/Order Number: [id number] Exam Date: 04/16/2024 20:24 Report Date: 04/16/2024 21:45 At the request of: BUCK NAVARRO Procedure: XR chest 1V EXAM: XR chest 1V HISTORY: Peripheral edema COMPARISON: Chest x-ray 07/30/2020. Chest CT 01/14/2017. TECHNIQUE: AP portable upright chest x-ray. FINDINGS: Cardiac enlargement is similar to previous. Lung markings prominent slightly increased. Questionable groundglass density right mid lower lung field new from previous may be mild edema or pneumonitis. No dense consolidation. Slight elevation left diaphragm with blunting the costophrenic angle suggesting pleural thickening or small effusion. No effusion on the right. No pneumothorax Distended bowel upper abdomen. XR/XR chest 1V IMPRESSION: Mild groundglass density right mid lower lung field is a change from previous. Questionable mild edema or pneumonitis. No definite focal infiltrate or consolidation. Poorly defined left costophrenic angle, questionable small effusion versus pleural thickening. Follow-up recommended.. Electronically authenticated by: AUGUSTO MATTA Date: 04/16/2024 21:45
--- NOTE | 2024-04-16 19:46 | ED.GENADUL1 ---
HPI HPI - General Adult General Chief complaint: Extremity Problem, Nontraumatic Stated complaint: LOWER EXTREMITY SWELLING, DISCOLORATION Time Seen by Provider: 04/16/24 19:31 Source: patient and family Mode of arrival: walk-in Limitations: no limitations History of Present Illness HPI narrative: 78-year-old male presents to the emergency department for a chief complaint of swelling to his legs. Family was not able to tell me how long this has been going on but they think maybe months. It is not clear what was different about it tonight. He was having some trouble getting up and walking around but that has been an ongoing issue. He does not complain of chest pain or shortness of breath. He is on a diuretic and has been taking it. Related Data Home Medications ?Medication ?Instructions ?Recorded ?Confirmed albuterol sulfate 90 mcg/actuation 2 inh inhalation Q8H PRN shortness 04/16/24 04/16/24 aerosol inhaler of breath or wheezing apixaban 5 mg tablet (Eliquis) 5 mg PO BID 04/16/24 04/16/24 aspirin 81 mg chewable tablet 1 tab PO DAILY 04/16/24 04/16/24 calcium carbonate 600 mg PO DAILY 04/16/24 04/16/24 cholecalciferol (vitamin D3) 25 1,000 unit PO DAILY 04/16/24 04/16/24 mcg (1,000 unit) tablet furosemide 20 mg tablet 20 mg PO DAILY 04/16/24 04/16/24 gabapentin 300 mg capsule 300 mg PO BID 04/16/24 04/16/24 metoprolol tartrate 25 mg tablet 25 mg PO DAILY 04/16/24 04/16/24 omeprazole 40 mg capsule,delayed 40 mg PO DAILY 04/16/24 04/16/24 release oxycodone 10 mg tablet 5 mg PO TID 04/16/24 04/16/24 simvastatin 40 mg tablet 40 mg PO DAILY 04/16/24 04/16/24 tamsulosin 0.4 mg capsule 0.4 mg PO DAILY 04/16/24 04/16/24 tiotropium bromide 18 mcg capsule 1 cap inhalation DAILY 04/16/24 04/16/24 with inhalation device tizanidine 4 mg tablet 4 mg PO BID 04/16/24 04/16/24 trazodone 100 mg tablet 100 mg PO BEDTIME PRN insomnia 04/16/24 04/16/24 Allergies Allergy/AdvReac Type Severity Reaction Status Date / Time Sulfa (Sulfonamide AdvReac Mild Hives Verified 04/16/24 19:10 Antibiotics) Opioid HPI Opioid Management Most Recent Opioid Data: No Data to Display Review of Systems ROS Narrative A ten point review of systems is negative except as noted above. Exam Narrative Exam Narrative: Nurses note and vital signs reviewed and patient is not hypoxic. General: The patient appears in no apparent distress. Patient is resting comfortably on cart. Skin: Warm, dry, no pallor noted. There is no rash noted. Head: Normocephalic, atraumatic Eye: Normal conjunctiva, no drainage Ears, Nose, Mouth, and Throat: oral mucosa is moist. Nares patent. Cardiovascular: Regular Rate and Rhythm Respiratory: Patient is in no distress, no accessory muscle use, lungs are clear to auscultation, no wheezing, rales or rhonchi Back: non-tender GI: Soft and nontender Musculoskeletal: Significant bilateral lower extremity edema in his feet ankles and legs up to just distal to the knees. There is some erythema bilaterally in the distal lower leg as well. No open area or purulent drainage. Neurological: A&O, normal speech Psychiatric: Cooperative Constitutional Vital Signs, click to edit/add: Last Vital Signs Temp 98.2 F 04/16/24 18:46 Pulse 95 H 04/16/24 21:30 Resp 19 04/16/24 21:30 BP 128/82 04/16/24 21:30 Pulse Ox 96 04/16/24 21:30 O2 Del Method Room Air 04/16/24 19:15 Course Vital Signs Vital signs: Vital Signs Temperature 98.2 F 04/16/24 18:46 Pulse Rate 103 H 04/16/24 18:46 Respiratory Rate 16 04/16/24 18:46 Blood Pressure 123/85 04/16/24 18:46 Pulse Oximetry 94 L 04/16/24 18:46 Oxygen Delivery Method Room Air 04/16/24 18:46 Temperature 98.2 F 04/16/24 18:46 Pulse Rate 95 H 04/16/24 21:30 Respiratory Rate 19 04/16/24 21:30 Blood Pressure 128/82 04/16/24 21:30 Pulse Oximetry 96 04/16/24 21:30 Oxygen Delivery Method Room Air 04/16/24 19:15 Medical Decision Making MDM Narrative Medical decision making narrative: On physical exam he has significant lower extremity edema. Chest x-ray per radiologist also suggest the possibility of edema. He was given IV Bumex and is being admitted. Treatment diagnosis and disposition were discussed with the patient and his family. At this point I do not suspect cellulitis in his legs. The erythema is likely from venous stasis Differential Diagnosis Differential Diagnosis: Peripheral edema, cellulitis Lab Data Lab results reviewed: Yes I reviewed the patient's lab results Labs: Lab Results 04/16/24 Range/Units 20:15 WBC 7.5 (4.0-11.0) 10^3/uL RBC 4.37 L (4.70-6.10) 10^6/uL Hgb 13.3 L (14.0-18.0) g/dL Hct 40.7 L (42.0-54.0) % MCV 93.1 (80.0-94.0) fL MCH 30.4 (25.9-34.0) pg MCHC 32.7 (29.9-35.2) g/dL RDW 14.6 (11.0-15.0) % Plt Count 116 L (150-450) 10^3/uL MPV 12.1 (9.5-13.5) fL Neut % (Auto) 66.1 (43.0-75.0) % Lymph % (Auto) 17.9 L (20.5-60.0) % Osborne % (Auto) 13.2 H (1.7-12.0) % Eos % (Auto) 2.1 (0.9-7.0) % Baso % (Auto) 0.4 (0.2-2.0) % Neut # (Auto) 5.0 (1.4-6.5) 10^3/uL Lymph # (Auto) 1.3 (1.2-3.8) 10^3/uL Osborne # (Auto) 1.0 H (0.3-0.8) 10^3/uL Eos # (Auto) 0.2 (0.0-0.7) 10^3/uL Baso # (Auto) 0.0 (0.0-0.1) 10^3/uL Abs Immat Gran (auto) 0.02 (0.00-0.03) 10^3/uL Imm/Tot Granulo (auto) 0.3 (0.0-0.5) % Sodium 139 (136-145) mmol/L Potassium 3.5 (3.5-5.1) mmol/L Chloride 101 (98-107) mmol/L Carbon Dioxide 35.3 H (21.0-32.0) mmol/L Anion Gap 6.2 BUN 15.0 (7.0-18.0) mg/dL Creatinine 1.68 H (0.70-1.30) mg/dL Est GFR ( Amer) 48 L (>=60) Est GFR (Non-Af Amer) 40 L (>=60) BUN/Creatinine Ratio 8.9 Glucose 109 H (74-106) mg/dL Calcium 9.4 (8.5-10.1) mg/dL Troponin I High Sens 5.7 (4.0-76.1) pg/mL NT-Pro-B Natriuret Pep 1676.0 (<=1800.0) pg/mL Imaging Data Chest x-ray: Radiologist's impression: ITS Impressions Chest X-Ray 04/16/24 19:45 IMPRESSION: Mild groundglass density right mid lower lung field is a change from previous. Questionable mild edema or pneumonitis. No definite focal infiltrate or consolidation. Poorly defined left costophrenic angle, questionable small effusion versus pleural thickening. Follow-up recommended.. Electronically authenticated by: AUGUSTO MATTA Date: 04/16/2024 21:45 ECG Data Attestation: I personally reviewed and interpreted this ECG as follows: (EKG on my interpretation shows A-fib with a rate of 94) Critical Care Time Critical Care Time Critical Care Time: Yes Total Critical Care Time: 35 Attestation: Due to the high probability of sudden and clinically significant deterioration in the patient's condition he/she required the highest level of my preparedness to intervene urgently I provided critical care time including documentation time, medication orders and management, reevaluation, vital sign assessment, ordering and reviewing of lab tests, ordering and reviewing of x-ray studies, and admission orders. Aggregate critical care time is 35 minutes including only time during which I was engaged in work directly related to his/her care and did not include time spent treating other patients simultaneously. Discharge Plan Discharge Chief Complaint: Extremity Problem, Nontraumatic Clinical Impression: Peripheral edema, Congestive heart failure Patient Disposition: Admitted As Inpatient Time of Disposition Decision: 22:14 Condition: Fair
[2024-04-16 20:31] LABS: Basophils Percent Auto 0.4 % (0.2-2.0); Eosinophils Absolute Auto 0.2 10^3/uL (0.0-0.7); Eosinophils Percent Auto 2.1 % (0.9-7.0); Hematocrit 40.7 % (42.0-54.0); Hemoglobin 13.3 g/dL (14.0-18.0); Immature Granulocytes Abs Auto 0.02 10^3/uL (0.00-0.03); Immature Granulocytes Pct Auto 0.3 % (0.0-0.5); Lymphocytes Absolute Auto 1.3 10^3/uL (1.2-3.8); Lymphocytes Percent Auto 17.9 % (20.5-60.0); Mean Corpuscular HGB Conc 32.7 g/dL (29.9-35.2); Mean Corpuscular Hemoglobin 30.4 pg (25.9-34.0); Mean Corpuscular Volume 93.1 fL (80.0-94.0); Mean Platelet Volume 12.1 fL (9.5-13.5); Monocytes Percent Auto 13.2 % (1.7-12.0); Neutrophils Percent Auto 66.1 % (43.0-75.0); Platelet Count 116 10^3/uL (150-450); Red Blood Count 4.37 10^6/uL (4.70-6.10); Red Cell Distribution Width 14.6 % (11.0-15.0); White Blood Count 7.5 10^3/uL (4.0-11.0)
[2024-04-16 20:55] LABS: Anion Gap 6.2; BUN Creatinine Ratio 8.9; Calcium 9.4 mg/dL (8.5-10.1); Carbon Dioxide 35.3 mmol/L (21.0-32.0); Chloride 101 mmol/L (98-107); Estimated GFR (African America 48 (>=60); Estimated GFR (Non-African Ame 40 (>=60); Glucose 109 mg/dL (74-106); Potassium 3.5 mmol/L (3.5-5.1); Sodium 139 mmol/L (136-145); Troponin I High Sensitivity 5.7 pg/mL (4.0-76.1)
[2024-04-16] MEDS: BUMETANIDE 1 MG/4 ML VIAL IVP (22:00)
[2024-04-17] VITALS (18 sets, daily range): BP systolic 88–114; BP diastolic 51–76; PULSE 69–125; TEMP 36.3–37.3; O2SAT 90–96; BMI 27.5
--- OUTSIDE RECORDS SUMMARY | 2024-04-17 00:08 | XMS_ITS | CCD ---
Author Organization [facility] Care Team Providers Care Senior Sales Associate Name Role Phone PROVIDER, UNKNOWN Attending Unavailable [...] SURGERY NEURO Consulting Unavai lable REQUEST, IP PAYROLL HUMAN RESOURCES ASSISTANT SERVICE Consul ting Unavailable CONSULT, IP CARDIOLOGY ELECTROPHYSIOLOGY (EP) Co nsulting Unavailable REQUEST, IP SENIOR JAVA WEB APPLICATION DEVELOPER SERVICE Consulting Unavaila ble CONSULT, IP DENTISTRY ADULT Consulting Unav ailable HAJDARI, ASTRIT Referring Unavailable SEGOVIA, NIMITT Admitting Unavailable PROVIDER, UNKNOWN Attending Unavailable PROVIDER, UNKNOWN Attending Unavailable PROVIDER, UNKNOWN Admitting Unavailable PATIENT, SELF Referring Unavailable PROVIDER, UNKNOWN Attending Unavailable PROVIDER, UNKNOWN Admitting Unavailable PROVIDER, UNKNOWN Attending Unavailable PROVIDER, UNKNOWN Admitting Unavailable MENG DWAINE AHilda Referring Unavailable DWAINE SANTOS Attending Unavailable DWAINE [...] Unavailable Karthik Ireland DO Primary Care Provider Karthik Ireland DO Unavailable [phone] KARTHIK IRELAND Primary Care Physician Unavail able [...] adverse reactions to drug (disorder) 1 [facility] Rep[facility] (1 source) Sulfonamides (Antibiotic) Drug allergy (disorder) 4 [facility] Rep[facility] (2 sources) Sulfonamides (Antibiotic) Drug Allergy 3 [facility] (2 sources) Sulfamethoxazole ; Translations: [sulfamethoxazol e] Drug Allergy Unknown (qualifier value) [facility] (2 sources) Unable to obtain; Translations: [Unable to obtain] Drug allergy [facility] Medications Current Medications Medication Drug Class(es) Dates Sig (Normalized) Sig (Original) [id number] 200 actuat albuterol 0.09 mg/actuat metered dose [...] MCG (1000 UT) tablet Indications: Mixed hyperlipidemia ([facility]) TAKE 1 TABLET BY MOUTH DAILY DIRECTED [...] disease (4 sources) Atherosclerotic heart disease of [place] coronary artery without angina pectoris; Translations: [Coronary [...] 07-13-2022 Episodic Other aftercare (1 source) Other fpc (current) drug therapy; Translations: [OTH ACCESS SPECIALIST CURRENT DRUG THERAPY] Onset: 07-13-2022 Episodic Other [...] 11-10-2022 BASO # 0.0 103/ul Normal 0.0-0.1 [facility] Comment on above: Performed By: #### C BC #### [facility] [address] [place] [address] Dr. Karen Marie Basophils/100 WBC (Bld) 0.4 % Normal 0.2-2.0 [facility] Comment on above: Performed By: #### C BC #### [facility] [address] [place] [address] Dr. Karen Marie EO # 0.1 103/ul Normal 0.0-0.7 [facility] Comment on above: Performed By: #### C BC #### [facility] [address] [place] [address] Dr. Karen Marie Eosinophils/100 WBC (Bld) 1.9 % Normal 0.9-7.0 [facility] Comment on above: Performed By: #### C BC #### [facility] [address] [place] [address] Dr. Karen Marie Erythrocyte distribution width (RBC) [Ratio] 16.1 % Critically high 11.0-15.0 [facility] Comment on above: Performed By: #### C BC #### [facility] [address] [place] [address] Dr. Karen Marie Hematocrit (Bld) [Volume fraction] 42.5 % Normal 42.0-54.0 [facility] Comment on above: Performed By: #### C BC #### [facility] [address] [place] [address] Dr. Karen Marie Hemoglobin (Bld) [Mass/Vol] 13.5 g/dL Critically low 14.0-18.0 [facility] Comment on above: Performed By: #### C BC #### [facility] [address] [place] [address] Dr. Karen Marie IG # 0.03 10e3/ul Normal 0.00-0.03 [facility] Comment on above: Performed By: #### C BC #### [facility] [address] [place] [address] Dr. Karen Marie IG % 0.4 % Normal 0.0-0.5 [facility] Comment on above: Performed By: #### C BC #### [facility] [address] [place] [address] Dr. Karen Marie LYMPH # 1.7 103/ul Normal 1.2-3.8 [facility] Comment on above: Performed By: #### C BC #### [facility] [address] [place] [address] Dr. Karen Marie Lymphocytes/100 WBC (Bld) 22.3 % Normal 20.5-60.0 [facility] Comment on above: Performed By: #### C BC #### [facility] [address] [place] [address] Dr. Karen Marie MANUAL DIFF REQ NO Normal [facility] Comment on above: Performed By: #### C BC #### [facility] [address] [place] [address] Dr. Karen Marie MCH (RBC) [Entitic mass] 27.8 pg Normal 25.9-34.0 [facility] Comment on above: Performed By: #### C BC #### [facility] [address] [place] [address] Dr. Karen Marie MCHC (RBC) [Mass/Vol] 31.8 g/dL Normal 29.9-35.2 [facility] Comment on above: Performed By: #### C BC #### [facility] [address] [place] [address] Dr. Karen Marie MCV (RBC) [Entitic vol] 87.4 fL Normal 80.0-94.0 [facility] Comment on above: Performed By: #### C BC #### [facility] [address] [address] [address] Karen Marie MONO # 0.9 103/ul Critically high 0.3-0.8 [facility] Comment on above: Performed By: #### C BC #### [facility] [address] [place] [address] Dr. Karen Marie Monocytes/100 WBC (Bld) 11.4 % Normal 1.7-12.0 [facility] Comment on above: Performed By: #### C BC #### [facility] [address] [place] [address] Dr. Karen Marie NEUT # 4.7 103/ul Normal 1.4-6.5 [facility] Comment on above: Performed By: #### C BC #### [facility] [address] [place] [address] Dr. Karen Marie Neutrophils/100 WBC (Bld) 63.6 % Normal 43.0-75.0 [facility] Comment on above: Performed By: #### C BC #### [facility] [address] [place] [address] Dr. Karen Marie Platelet mean volume (Bld) [Entitic vol] 11.9 fL Normal 9.5-13.5 [facility] Comment on above: Performed By: #### C BC #### [facility] [address] [place] [address] Dr. Karen Marie PLT 162 103/ul Normal 150-450 [facility] Comment on above: Performed By: #### C BC #### [facility] [address] [place] [address] Dr. Karen Marie RBC 4.86 106/ul Normal 4.70-6.10 [facility] Comment on above: Performed By: #### C BC #### [facility] [address] [place] [address] Dr. Karen Marie WBC 7.4 103/ul Normal 4.0-11.0 [facility] Comment on above: Performed By: #### C BC #### [facility] [address] [place] [address] Dr. Karen Marie PROF 14(COMP METB)on 023 Albumin [Mass/Vol] 3.8 g/dL Normal 3.4-5.0 [facility] Comment on above: Performed By: #### P SAD, FERR, FETIBC #### [facility] [address] [place] [address] Dr. Karen Marie Albumin/Globulin [Mass ratio] 1.1 {ratio} Normal [facility] Comment on above: Performed By: #### P SAD, FERR, FETIBC #### [facility] [address] [place] [address] Dr. Karen Marie ALP [Catalytic activity/Vol] 79 U/L Normal 46-116 [facility] Comment on above: Performed By: #### P SAD, FERR, FETIBC #### [facility] [address] [place] [address] Dr. Karen Marie ALT [Catalytic activity/Vol] 15 U/L Critically low 16-63 [facility] Comment on above: Performed By: #### P SAD, FERR, FETIBC #### [facility] [address] [place] [address] Dr. Karen Marie Anion gap [Moles/Vol] 12.3 mmol/L Normal [facility] Comment on above: Performed By: #### P SAD, FERR, FETIBC #### [facility] [address] [place] [address] Dr. Karen Marie AST [Catalytic activity/Vol] 17 U/L Normal 15-37 [facility] Comment on above: Performed By: #### P SAD, FERR, FETIBC #### [facility] [address] [address] [address] Karen Marie Bilirubin [Mass/Vol] 0.9 mg/dL Normal 0.2-1.0 [facility] Comment on above: Performed By: #### P SAD, FERR, FETIBC #### [facility] [address] [address] [address] Karen Marie Calcium [Mass/Vol] 9.3 mg/dL Normal 8.5-10.1 [facility] Comment on above: Performed By: #### P SAD, FERR, FETIBC #### [facility] [address] [address] [address] Karen Marie Chloride [Moles/Vol] 103 mmol/L Normal 98-107 [facility] Comment on above: Performed By: #### P SAD, FERR, FETIBC #### [facility] [address] [place] [address] Dr. Karen Marie CO2 [Moles/Vol] 30.7 mmol/L Normal 21.0-32.0 [facility] Comment on above: Performed By: #### P SAD, FERR, FETIBC #### [facility] [address] [address] [address] Karen Marie Creatinine [Mass/Vol] 1.37 mg/dL Critically high 0.70-1.30 [facility] Comment on above: Performed By: #### P SAD, FERR, FETIBC #### [facility] [address] [address] [address] Karen Marie EGFR-AF HONDURAN >60 Normal >=60 [facility] Comment on above: Performed By: #### P SAD, FERR, FETIBC #### [facility] [address] [address] [address] Karen Marie EGFR-NON AF HONDURAN 51 mL/min/1.73m2 Critically low >=60 [facility] Comment on above: Performed By: #### P SAD, FERR, FETIBC #### [facility] [address] [address] [address] Karen Marie Globulin (S) [Mass/Vol] 3.5 g/dL Normal [facility] Comment on above: Performed By: #### P SAD, FERR, FETIBC #### [facility] [address] [address] [address] Karen Marie Glucose [Mass/Vol] 102 mg/dL Normal 74-106 [facility] Comment on above: Performed By: #### P SAD, FERR, FETIBC #### [facility] [address] [place] [address] Dr. Karen Marie Potassium [Moles/Vol] 4.0 mmol/L Normal 3.5-5.1 [facility] Comment on above: Performed By: #### P SAD FERR, FETIBC #### [facility] [address] [place] [address] Dr. Karen Marie Protein [Mass/Vol] 7.3 g/dL Normal 6.4-8.2 [facility] Comment on above: Performed By: #### P SAD FERR, FETIBC #### [facility] [address] [place] [address] Dr. Karen Marie Sodium [Moles/Vol] 142 mmol/L Normal 136-145 [facility] Comment on above: Performed By: #### P SAD FERR, FETIBC #### [facility] [address] [place] [address] Dr. Karen Marie Urea nitrogen [Mass/Vol] 16.0 mg/dL Normal 7.0-18.0 [facility] Comment on above: Performed By: #### P SAD, FERR, FETIBC #### [facility] [address] [place] [address] Dr. Karen Marie Urea nitrogen/Creatinine [Mass ratio] 11.7 mg/mg Normal [facility] Comment on above: Performed By: #### P SAD, FERR, FETIBC #### [facility] [address] [place] [address] Dr. Karen Marie URIC ACID SERUMon 11-10-2022 Urate [Mass/Vol] 8.9 mg/dL Critically high 3.5-7.2 [facility] Comment on above: Performed By: #### P SAD, FERR, FETIBC #### [facility] [address] [place] [address] Dr. Karen Marie CBC AUTO DIFFon 07-08-2022 BASO # 0.0 103/ul Normal 0.0-0.1 [facility] Comment on above: Performed By: #### P SAD, FERR, FETIBC #### [facility] [address] [place] [address] Dr. Karen Marie Basophils/100 WBC (Bld) 0.4 % Normal 0.2-2.0 [facility] Comment on above: Performed By: #### P SAD, FERR, FETIBC #### [facility] [address] [place] [address] Dr. Karen Marie EO # 0.1 103/ul Normal 0.0-0.7 [facility] Comment on above: Performed By: #### P SAD, FERR, FETIBC #### [facility] [address] [place] [address] Dr. Karen Marie Eosinophils/100 WBC (Bld) 1.7 % Normal 0.9-7.0 [facility] Comment on above: Performed By: #### P SAD, FERR, FETIBC #### [facility] [address] [place] [address] Dr. Karen Marie Erythrocyte distribution width (RBC) [Ratio] 13.6 % Normal 11.0-15.0 [facility] Comment on above: Performed By: #### P SAD, FERR, FETIBC #### [facility] [address] [place] [address] Dr. Karen Marie Hematocrit (Bld) [Volume fraction] 43.3 % Normal 42.0-54.0 [facility] Comment on above: Performed By: #### P SAD, FERR, FETIBC #### [facility] [address] [place] [address] Dr. Karen Marie Hemoglobin (Bld) [Mass/Vol] 14.3 g/dL Normal 14.0-18.0 [facility] Comment on above: Performed By: #### P SAD, FERR, FETIBC #### [facility] [address] [address] [address] Karen Marie IG # 0.01 10e3/ul Normal 0.00-0.03 [facility] Comment on above: Performed By: #### P SAD, FERR, FETIBC #### [facility] [address] [place] [address] Dr. Karen Marie IG % 0.1 % Normal 0.0-0.5 [facility] Comment on above: Performed By: #### P SAD, FERR, FETIBC #### [facility] [address] [place] [address] Dr. Karen Marie LYMPH # 1.9 103/ul Normal 1.2-3.8 [facility] Comment on above: Performed By: #### P SAD, FERR, FETIBC #### [facility] [address] [place] [address] Dr. Karen Marie Lymphocytes/100 WBC (Bld) 27.7 % Normal 20.5-60.0 [facility] Comment on above: Performed By: #### P SAD, FERR, FETIBC #### [facility] [address] [place] [address] Dr. Karen Marie MANUAL DIFF REQ NO Normal [facility] Comment on above: Performed By: #### P SAD, FERR, FETIBC #### [facility] [address] [place] [address] Dr. Karen Marie MCH (RBC) [Entitic mass] 29.9 pg Normal 25.9-34.0 [facility] Comment on above: Performed By: #### P SAD, FERR, FETIBC #### [facility] [address] [place] [address] Dr. Karen Marie MCHC (RBC) [Mass/Vol] 33.0 g/dL Normal 29.9-35.2 [facility] Comment on above: Performed By: #### P SAD, FERR, FETIBC #### [facility] [address] [place] [address] Dr. Karen Marie MCV (RBC) [Entitic vol] 90.6 fL Normal 80.0-94.0 [facility] Comment on above: Performed By: #### P SAD, FERR, FETIBC #### [facility] [address] [place] [address] Dr. Karen Marie MONO # 0.8 103/ul Normal 0.3-0.8 [facility] Comment on above: Performed By: #### P SAD, FERR, FETIBC #### [facility] [address] [place] [address] Dr. Karen Marie Monocytes/100 WBC (Bld) 11.1 % Normal 1.7-12.0 [facility] Comment on above: Performed By: #### P SAD, FERR, FETIBC #### [facility] [address] [place] [address] Dr. Karen Marie NEUT # 4.1 103/ul Normal 1.4-6.5 [facility] Comment on above: Performed By: #### P SAD, FERR, FETIBC #### [facility] [address] [place] [address] Dr. Karen Marie Neutrophils/100 WBC (Bld) 59.0 % Normal 43.0-75.0 [facility] Comment on above: Performed By: #### P SAD, FERR, FETIBC #### [facility] [address] [place] [address] Dr. Karen Marie Platelet mean volume (Bld) [Entitic vol] 11.3 fL Normal 9.5-13.5 [facility] Comment on above: Performed By: #### P SAD, FERR, FETIBC #### [facility] [address] [place] [address] Dr. Karen Marie PLT 175 103/ul Normal 150-450 [facility] Comment on above: Performed By: #### P SAD, FERR, FETIBC #### [facility] [address] [place] [address] Dr. Karen Marie RBC 4.78 106/ul Normal 4.70-6.10 [facility] Comment on above: Performed By: #### P SAD, FERR, FETIBC #### [facility] [address] [address] [address] Karen Marie WBC 7.0 103/ul Normal 4.0-11.0 [facility] Comment on above: Performed By: #### P SAD, FERR, FETIBC #### [facility] [address] [address] [address] Karen Marie FERRITINon 07-08-2022 Ferritin [Mass/Vol] 43.0 ng/mL Normal 26.0-388.0 [facility] Comment on above: Performed By: #### P SAD, FERR, FETIBC #### [facility] [address] [place] [address] Dr. Karen Marie IRON AND TIBCon 07-08-2022 % SATURATION 12.7 % Normal [facility] Comment on above: Performed By: #### P SAD, FERR, FETIBC #### [facility] [address] [place] [address] Dr. Karen Marie Iron [Mass/Vol] 46.0 ug/dL Critically low 65.0-175.0 [facility] Comment on above: Performed By: #### P SAD, FERR, FETIBC #### [facility] [address] [place] [address] Dr. Karen Marie TIBC DIRECT 363.0 ug/dL Normal 250.0-450.0 [facility] Comment on above: Performed By: #### P SAD, FERR, FETIBC #### [facility] [address] [place] [address] Dr. Karen Marie LIPID PROFILEon 07-08-2022 CHOL-HDL RATIO NORM SEE BELOW Normal [facility] Comment on above: Result Comment: 3.3 - 4.4 LOW RISK 4.4 - 7.1 AVERAGE RISK 7.1 - 11.0 MODERATE RISK >11.0 HIGH RISK Performed By: #### L IPID, CMP, URIC, TSH #### [facility] [address] [place] [address] Dr. Karen Marie Cholesterol [Mass/Vol] 131 mg/dL Normal <=200 [facility] Comment on above: Performed By: #### L IPID, CMP, URIC, TSH #### [facility] [address] [address] [address] Karen Marie Cholesterol in HDL [Mass/Vol] 52 mg/dL Normal 40-60 [facility] Comment on above: Performed By: #### L IPID, CMP, URIC, TSH #### [facility] [address] [address] [address] Karen Marie Cholesterol in LDL [Mass/Vol] 59.2 mg/dL Normal [facility] Comment on above: Performed By: #### L IPID, CMP, URIC, TSH #### [facility] [address] [address] [address] Karen Marie Cholesterol.total/Chol esterol in HDL [Mass ratio] 2.5 {ratio} Normal [facility] Comment on above: Performed By: #### L IPID, CMP, URIC, TSH #### [facility] [address] [address] [address] Karen Marie HDL NORMAL > or = 60 mg/dl - LOW CARDIOVASCULAR RISK <40 mg/dl - HIGH CARDIOVASCULAR RISK Normal [facility] Comment on above: Performed By: #### L IPID, CMP, URIC, TSH #### [facility] [address] [address] [address] Karen Marie LDL CALC NORMAL SEE BELOW Normal [facility] Comment on above: Result Comment: <100 mg/dl OPTIMAL 100 - 129 mg/dl NEAR OR ABOVE OPTIMAL 130 - 159 mg/dl BORDERLINE HIGH 160 - 189 mg/dl HIGH >190 mg/dl VERY HIGH Performed By: #### L IPID, CMP, URIC, TSH #### [facility] [address] [address] [address] Karen Marie Triglyceride [Mass/Vol] 99 mg/dL Normal <=150 [facility] Comment on above: Performed By: #### L IPID, CMP, URIC, TSH #### [facility] [address] [address] [address] Karen Marie VLDL CALC 19.8 mg/dL Normal [facility] Comment on above: Performed By: #### L IPID, CMP, URIC, TSH #### [facility] [address] [place] [address] Dr. Karen Marie PROF 14(COMP METB)on 022 Albumin [Mass/Vol] 3.5 g/dL Normal 3.4-5.0 [facility] Comment on above: Performed By: #### L IPID, CMP, URIC, TSH #### [facility] [address] [place] [address] Dr. Karen Marie Albumin/Globulin [Mass ratio] 0.9 {ratio} Normal [facility] Comment on above: Performed By: #### L IPID, CMP, URIC, TSH #### [facility] [address] [place] [address] Dr. Karen Marie ALP [Catalytic activity/Vol] 83 U/L Normal 46-116 [facility] Comment on above: Performed By: #### L IPID, CMP, URIC, TSH #### [facility] [address] [place] [address] Dr. Karen Marie ALT [Catalytic activity/Vol] 13 U/L Critically low 16-63 [facility] Comment on above: Performed By: #### L IPID, CMP, URIC, TSH #### [facility] [address] [place] [address] Dr. Karen Marie Anion gap [Moles/Vol] 6.9 mmol/L Normal [facility] Comment on above: Performed By: #### L IPID, CMP, URIC, TSH #### [facility] [address] [place] [address] Dr. Karen Marie AST [Catalytic activity/Vol] 25 U/L Normal 15-37 [facility] Comment on above: Performed By: #### L IPID, CMP, URIC, TSH #### [facility] [address] [place] [address] Dr. Karen Marie Bilirubin [Mass/Vol] 0.5 mg/dL Normal 0.2-1.0 [facility] Comment on above: Performed By: #### L IPID, CMP, URIC, TSH #### [facility] [address] [address] [address] Karen Marie Calcium [Mass/Vol] 9.9 mg/dL Normal 8.5-10.1 [facility] Comment on above: Performed By: #### L IPID, CMP, URIC, TSH #### [facility] [address] [address] [address] Karen Marie Chloride [Moles/Vol] 101 mmol/L Normal 98-107 [facility] Comment on above: Performed By: #### L IPID, CMP, URIC, TSH #### [facility] [address] [address] [address] Karen Marie CO2 [Moles/Vol] 31.5 mmol/L Normal 21.0-32.0 [facility] Comment on above: Performed By: #### L IPID, CMP, URIC, TSH #### [facility] [address] [place] [address] Dr. Karen Marie Creatinine [Mass/Vol] 1.51 mg/dL Critically high 0.70-1.30 [facility] Comment on above: Performed By: #### L IPID, CMP, URIC, TSH #### [facility] [address] [address] [address] Karen Marie EGFR-AF HONDURAN 55 mL/min/1.73m2 Critically low >=60 [facility] Comment on above: Performed By: #### L IPID, CMP, URIC, TSH #### [facility] [address] [address] [address] Karen Marie EGFR-NON AF HONDURAN 45 mL/min/1.73m2 Critically low >=60 [facility] Comment on above: Performed By: #### L IPID, CMP, URIC, TSH #### [facility] [address] [address] [address] Karen Marie Globulin (S) [Mass/Vol] 3.9 g/dL Normal [facility] Comment on above: Performed By: #### L IPID, CMP, URIC, TSH #### [facility] [address] [address] [address] Karen Marie Glucose [Mass/Vol] 124 mg/dL Critically high 74-106 T [facility] Comment on above: Performed By: #### L IPID, CMP, URIC, TSH #### [facility] [address] [place] [address] Dr. Karen Marie Potassium [Moles/Vol] 3.4 mmol/L Critically low 3.5-5.1 [facility] Comment on above: Performed By: #### L IPID, CMP, URIC, TSH #### [facility] [address] [address] [address] Karen Marie Protein [Mass/Vol] 7.4 g/dL Normal 6.4-8.2 [facility] Comment on above: Performed By: #### L IPID, CMP, URIC, TSH #### [facility] [address] [place] [address] Dr. Karen Marie Sodium [Moles/Vol] 136 mmol/L Normal 136-145 [facility] Comment on above: Performed By: #### L IPID, CMP, URIC, TSH #### [facility] [address] [address] [address] Karen Marie Urea nitrogen [Mass/Vol] 13.0 mg/dL Normal 7.0-18.0 [facility] Comment on above: Performed By: #### L IPID, CMP, URIC, TSH #### [facility] [address] [place] [address] Dr. Karen Marie Urea nitrogen/Creatinine [Mass ratio] 8.6 mg/mg Normal The [facility] Comment on above: Performed By: #### L IPID, CMP, URIC, TSH #### [facility] [address] [place] [address] Dr. Karen Marie TSHon 07-08-2022 TSH 2.103 uIU/mL Normal 0.358-3.740 [facility] Comment on above: Performed By: #### L IPID, CMP, URIC, TSH #### [facility] [address] [place] [address] Dr. Karen Marie URIC ACID SERUMon 07-08-2022 Urate [Mass/Vol] 9.4 mg/dL Critically high 3.5-7.2 The [facility] Comment on above: Performed By: #### L IPID, CMP, URIC, TSH #### [facility] [address] [place] [address] Dr. Karen Marie CBC AUTO DIFFon 02-19-2022 BASO # 0.0 103/ul Normal 0.0-0.1 The [facility] Comment on above: Performed By: #### C BC #### [facility] [address] [place] [address] Dr. Karen Marie Basophils/100 WBC (Bld) 0.4 % Normal 0.2-2.0 The [facility] Comment on above: Performed By: #### C BC #### [facility] [address] [place] [address] Dr. Karen Marie EO # 0.2 103/ul Normal 0.0-0.7 The [facility] Comment on above: Performed By: #### C BC #### [facility] [address] [place] [address] Dr. Karen Marie Eosinophils/100 WBC (Bld) 3.2 % Normal 0.9-7.0 The [facility] Comment on above: Performed By: #### C BC #### [facility] [address] [place] [address] Dr. Karen Marie Erythrocyte distribution width (RBC) [Ratio] 13.7 % Normal 11.0-15.0 The [facility] Comment on above: Performed By: #### C BC #### [facility] [address] [place] [address] Dr. Karen Marie Hematocrit (Bld) [Volume fraction] 43.2 % Normal 42.0-54.0 The [facility] Comment on above: Performed By: #### C BC #### [facility] [address] [place] [address] Dr. Karen Marie Hemoglobin (Bld) [Mass/Vol] 13.8 g/dL Critically low 14.0-18.0 The [facility] Comment on above: Performed By: #### C BC #### [facility] [address] [place] [address] Dr. Karen Marie IG # 0.03 10e3/ul Normal 0.00-0.03 [facility] Comment on above: Performed By: #### C BC #### [facility] [address] [place] [address] Dr. Karen Marie IG % 0.4 % Normal 0.0-0.5 [facility] Comment on above: Performed By: #### C BC #### [facility] [address] [place] [address] Dr. Karen Marie LYMPH # 1.6 103/ul Normal 1.2-3.8 [facility] Comment on above: Performed By: #### C BC #### [facility] [address] [place] [address] Dr. Karen Marie Lymphocytes/100 WBC (Bld) 23.7 % Normal 20.5-60.0 [facility] Comment on above: Performed By: #### C BC #### [facility] [address] [place] [address] Dr. Karen Marie MANUAL DIFF REQ NO Normal [facility] Comment on above: Performed By: #### C BC #### [facility] [address] [place] [address] Dr. Karen Marie MCH (RBC) [Entitic mass] 30.1 pg Normal 25.9-34.0 [facility] Comment on above: Performed By: #### C BC #### [facility] [address] [place] [address] Dr. Karen Marie MCHC (RBC) [Mass/Vol] 31.9 g/dL Normal 29.9-35.2 The [facility] Comment on above: Performed By: #### C BC #### [facility] [address] [place] [address] Dr. Karen Marie MCV (RBC) [Entitic vol] 94.3 fL Critically high 80.0-94.0 [facility] Comment on above: Performed By: #### C BC #### [facility] [address] [place] [address] Dr. Karen Marie MONO # 0.8 103/ul Normal 0.3-0.8 [facility] Comment on above: Performed By: #### C BC #### [facility] [address] [place] [address] Dr. Karen Marie Monocytes/100 WBC (Bld) 11.7 % Normal 1.7-12.0 [facility] Comment on above: Performed By: #### C BC #### [facility] [address] [place] [address] Dr. Karen Marie NEUT # 4.1 103/ul Normal 1.4-6.5 [facility] Comment on above: Performed By: #### C BC #### [facility] [address] [place] [address] Dr. Karen Marie Neutrophils/100 WBC (Bld) 60.6 % Normal 43.0-75.0 [facility] Comment on above: Performed By: #### C BC #### [facility] [address] [place] [address] Dr. Karen Marie Platelet mean volume (Bld) [Entitic vol] 11.9 fL Normal 9.5-13.5 [facility] Comment on above: Performed By: #### C BC #### [facility] [address] [place] [address] Dr. Karen Marie PLT 129 103/ul Critically low 150-450 [facility] Comment on above: Performed By: #### C BC #### [facility] [address] [place] [address] Dr. Karen Marie RBC 4.58 106/ul Critically low 4.70-6.10 [facility] Comment on above: Performed By: #### C BC #### [facility] [address] [place] [address] Dr. Karne Marie WBC 6.8 103/ul Normal 4.0-11.0 The [facility] Comment on above: Performed By: #### C BC #### [facility] [address] [place] [address] Dr. Karen Marie PROF CHEM 8 (BAS METB)on Anion gap [Moles/Vol] 11.7 mmol/L Normal Th [facility] Comment on above: Performed By: #### B MP #### [facility] [address] [address] [address] Karen Marie Calcium [Mass/Vol] 9.3 mg/dL Normal 8.5-10.1 [facility] Comment on above: Performed By: #### B MP #### [facility] [address] [address] [address] Karen Marie Chloride [Moles/Vol] 106 mmol/L Normal 98-107 [facility] Comment on above: Performed By: #### B MP #### [facility] [address] [place] [address] Dr. Karen Marie CO2 [Moles/Vol] 28.3 mmol/L Normal 21.0-32.0 [facility] Comment on above: Performed By: #### B MP #### [facility] [address] [address] [address] Karen Marie Creatinine [Mass/Vol] 1.49 mg/dL Critically high 0.70-1.30 [facility] Comment on above: Performed By: #### B MP #### [facility] [address] [place] [address] Dr. Karen Marie EGFR-AF HONDURAN 56 mL/min/1.73m2 Critically low >=60 [facility] Comment on above: Performed By: #### B MP #### [facility] [address] [address] [address] Karen Marie EGFR-NON AF HONDURAN 46 mL/min/1.73m2 Critically low >=60 [facility] Comment on above: Performed By: #### B MP #### [facility] [address] [address] [address] Karen Marie Glucose [Mass/Vol] 101 mg/dL Normal 74-106 [facility] Comment on above: Performed By: #### B MP #### [facility] [address] [address] [address] Karen Marie Potassium [Moles/Vol] 5.0 mmol/L Normal 3.5-5.1 [facility] Comment on above: Performed By: #### B MP #### [facility] [address] [address] [address] Karen Marie Sodium [Moles/Vol] 141 mmol/L Normal 136-145 [facility] Comment on above: Performed By: #### B MP #### [facility] [id number] Karen Marie Urea nitrogen [Mass/Vol] 17.0 mg/dL Normal 7.0-18.0 [facility] Comment on above: Performed By: #### B MP #### [facility] [address] [address] [address] Karen Marie Urea nitrogen/Creatinine [Mass ratio] 11.4 mg/mg Normal [facility] Comment on above: Performed By: #### B MP #### [facility] [address] [address] [address] 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 08-08-2021 Stereo Equipment Repairer Authentication Interface Message Text Called pt Jul 6 as scheduled-no ans Called pt Jul 7-no ans Normal [facility] 06-04-2021 Stereo Equipment Repairer Authentication Interface Message Text Normal [facility] Progress Noteson 06-03-2021 Stereo Equipment Repairer Authentication Interface Message Text Patient at risk for falls:No Falls Risk protocol implemented: Yes wheelchair in locked position when not in use for transport Normal [facility] XR ANKLE LEFT 3 VIEWSon 10-0 XR ANKLE LEFT 3 VIEWS Normal [facility] Anesthesia Attestationon Stereo Equipment Repairer Authentication Interface Message Text Normal [facility] Anesthesia Postprocedure Lucretia luationon 05-21-2021 Stereo Equipment Repairer Authentication Interface Message Text Normal [facility] Anesthesia Preprocedure Eval uationon 05-21-2021 Stereo Equipment Repairer Authentication Interface Message Text Normal [facility] Anesthesia Transfer Of Careo n 05-21-2021 Stereo Equipment Repairer Authentication Interface Message Text Normal [facility] H AND Martin 05-21-2021 Stereo Equipment Repairer Authentication Interface Message Text Normal [facility] OP Noteon 05-21-2021 Stereo Equipment Repairer Authentication Interface Message Text Normal [facility] Procedureson 05-21-2021 Stereo Equipment Repairer Authentication Interface Message Text Preop dx: L ankle fx Postop dx: same Proc; Removal pins L ankle ([id number]) Removal LLE ex fix () Comp:none Plan NWB LLE, rest, elevation RTC Oct Normal [facility] Progress Noteson 04-29-2021 Stereo Equipment Repairer Authentication Interface Message Text Patient was identified by name and date of . Mayra Trujillo Applied short leg cast and discussed cast care with patient. Normal [facility] Stereo Equipment Repairer Authentication Interface Message Text Patient was identified by name and date of . Amy Gonzalez RN Patient at risk for falls:yes Falls Risk protocol implemented: Yes wheelchair in locked position when not in use for transport Normal [facility] Stereo Equipment Repairer Authentication Interface Message Text Normal [facility] XR ANKLE LEFT 3 VIEWSon 08-3 XR ANKLE LEFT 3 VIEWS Normal [facility] Complete Blood Count Auto Di ffon 04-18-2021 Basophils (Bld) [#/Vol] 0.0 10*3/uL Normal 0.0-0.2 [facility] Comment on above: Order Comment: CAMDEN Souza FAX TO Result Comment: PERF ORMED BY: [address] [place] [address] PATHOLOGIST WHITING CAN WORKER JIANLAN SUN M.D. Performed By: #### C MP, CBC #### [address] Basophils/100 WBC (Bld) 0.5 % Normal . [facility] Comment on above: Order Comment: PLEAS E FAX TO Performed By: #### C MP, CBC #### [address] Eosinophils (Bld) [#/Vol] 0.2 10*3/uL Normal 0.0-0.45 [facility] Comment on above: Order Comment: PLEAS E FAX TO Performed By: #### C MP, CBC #### [address] Eosinophils/100 WBC (Bld) 3.4 % Normal . [facility] Comment on above: Order Comment: PLEAS E FAX TO Performed By: #### C MP, CBC #### [address] Erythrocyte distribution width (RBC) [Ratio] 15.5 % High 12.0-14.8 [facility] Comment on above: Order Comment: PLEAS E FAX TO Performed By: #### C MP, CBC #### [address] Hematocrit (Bld) [Volume fraction] 36.7 % Low 38.8-50.0 [facility] Comment on above: Order Comment: PLEAS E FAX TO Performed By: #### C MP, CBC #### [address] Hemoglobin (Bld) [Mass/Vol] 12.0 g/dL Low 13.0-17.0 [facility] Comment on above: Order Comment: PLEAS E FAX TO Performed By: #### C MP, CBC #### [address] Lymphocytes (Bld) [#/Vol] 1.8 10*3/uL Normal 1.00-4.8 [facility] Comment on above: Order Comment: PLEAS E FAX TO Performed By: #### C MP, CBC #### [address] Lymphocytes/100 WBC (Bld) 35.6 % Normal . [facility] Comment on above: Order Comment: PLEAS E FAX TO Performed By: #### C MP, CBC #### [address] MCH (RBC) [Entitic mass] 30.5 pg Normal 27.5-35.2 [facility] Comment on above: Order Comment: PLEAS E FAX TO Performed By: #### C MP, CBC #### [address] MCV (RBC) [Entitic vol] 93.1 fL Normal 83.5-101 [facility] Comment on above: Order Comment: PLEAS E FAX TO Performed By: #### C MP, CBC #### [address] Mean Corpuscular HGB Conc 32.7 g/dL Normal 32.5-35.6 [facility] Comment on above: Order Comment: PLEAS E FAX TO Performed By: #### C MP, CBC #### [place] [address] [place] Monocytes (Bld) [#/Vol] 0.7 10*3/uL Normal 0.0-0.8 [facility] Comment on above: Order Comment: PLEAS E FAX TO Performed By: #### C MP, CBC #### [place] [address] [place] Monocytes/100 WBC (Bld) 14.1 % Normal . [facility] Comment on above: Order Comment: PLEAS E FAX TO Performed By: #### C MP, CBC #### [facility] [address] [place] [address] [place] Neutrophils (Bld) [#/Vol] 2.3 10*3/uL Normal 1.8-7.7 [facility] Comment on above: Order Comment: PLEAS E FAX TO Performed By: #### C MP, CBC #### [address] Neutrophils/100 WBC (Bld) 46.4 % Normal . [facility] Comment on above: Order Comment: PLEAS E FAX TO Performed By: #### C MP, CBC #### [facility] [address] [place] [address] [place] Nucleated RBC/100 WBC (Bld) [Ratio] 0.2 % Normal 0-0.5 [facility] Comment on above: Order Comment: PLEAS E FAX TO Performed By: #### C MP, CBC #### [facility] [address] [place] [address] Platelet mean volume (Bld) [Entitic vol] 10.0 fL Normal 6.6-10.1 [facility] Comment on above: Order Comment: PLEAS E FAX TO Performed By: #### C MP, CBC #### [facility] [address] [place] [address] [place] Platelets (Bld) [#/Vol] 137 10*3/uL Low 150-450 [facility] Comment on above: Order Comment: PLEAS E FAX TO Performed By: #### C MP, CBC #### [facility] [address] [place] [address] [place] RBC (Bld) [#/Vol] 3.95 10*6/uL Normal 3.90-5.60 [facility] Comment on above: Order Comment: PLEAS E FAX TO Performed By: #### C MP, CBC #### [facility] [address] [place] [address] WBC (Bld) [#/Vol] 5.0 10*3/uL Normal 4.5-11.0 [facility] Comment on above: Order Comment: PLEAS E FAX TO Performed By: #### C MP, CBC #### [facility] [address] [place] [address] Comprehensive Metabolic Pane navin 04-18-2021 Albumin [Mass/Vol] 2.9 g/dL Low 3.2-5.5 [facility] Comment on above: Order Comment: PLEAS E FAX TO Performed By: #### C MP, CBC #### [facility] [address] [place] [address] Albumin/Globulin [Mass ratio] 1.2 {ratio} Normal [facility] Comment on above: Order Comment: PLEAS E FAX TO Performed By: #### C MP, CBC #### [facility] [address] [place] [address] ALP [Catalytic activity/Vol] 50 U/L Normal 32-92 [facility] Comment on above: Order Comment: PLEAS E FAX TO Result Comment: PERF ORMED BY: [place] [address] PATHOLOGIST WHITING CAN WORKER DAKOTAH SMITH M.D. Performed By: #### C MP, CBC #### [facility] [address] [place] [address] ALT [Catalytic activity/Vol] 12 U/L Normal 10-60 [facility] Comment on above: Order Comment: PLEAS E FAX TO Performed By: #### C MP, CBC #### [facility] [address] [place] [address] AST [Catalytic activity/Vol] 14 U/L Normal 10-42 [facility] Comment on above: Order Comment: PLEAS E FAX TO Performed By: #### C MP, CBC #### [facility] [address] Bilirubin [Mass/Vol] 0.3 mg/dL Normal 0.3-1.2 [facility] Comment on above: Order Comment: PLEAS E FAX TO Performed By: #### C MP, CBC #### [facility] [address] Calcium [Mass/Vol] 8.8 mg/dL Normal 8.2-10.2 [facility] Comment on above: Order Comment: PLEAS E FAX TO Performed By: #### C MP, CBC #### [facility] [address] [place] [address] Chloride [Moles/Vol] 105 mmol/L Normal 95-114 [facility] Comment on above: Order Comment: PLEAS E FAX TO Performed By: #### C MP, CBC #### [facility] [address] [place] [address] [place] CO2 [Moles/Vol] 24.5 mmol/L Normal 22.0-30.0 [facility] Comment on above: Order Comment: PLEAS E FAX TO Performed By: #### C MP, CBC #### [facility] [address] [place] [address] [place] Creatinine [Mass/Vol] 1.13 mg/dL Normal 0.64-1.27 [facility] Comment on above: Order Comment: PLEAS E FAX TO Performed By: #### C MP, CBC #### [facility] [address] [place] [address] [place] Estimated GFR ( Mary Jo > 60 Normal [facility] Comment on above: Order Comment: PLEAS E FAX TO Result Comment: GFR estimated reference range: According to KDOQI guidelines, <60 ml/min/1.73m2 is sufficient to diagnose a patient with chronic kidney disease. Performed By: #### C MP, CBC #### [address] Estimated GFR (Non- Am > 60 [facility] Comment on above: Order Comment: PLEAS E FAX TO Performed By: #### C MP, CBC #### [address] Globulin (S) [Mass/Vol] 2.5 g/dL [facility] Comment on above: Order Comment: PLEAS E FAX TO Performed By: #### C MP, CBC #### [address] Glucose [Mass/Vol] 108 mg/dL High 70-100 [facility] Comment on above: Order Comment: PLEAS E FAX TO Result Comment: [place] om Glucose Reference Range is dependent on time and content of last meal. Glucose of more than 200 mg/dL in a nonstressed, ambulatory subject supports the diagnosis of Diabetes Mellitus. ADA recommended reference range Performed By: #### C MP, CBC #### [address] Potassium [Moles/Vol] 3.8 mmol/L Normal 3.5-5.1 [facility] Comment on above: Order Comment: PLEAS E FAX TO Performed By: #### C MP, CBC #### [place] [address] [place] Protein [Mass/Vol] 5.4 g/dL Low 6.1-7.9 [facility] Comment on above: Order Comment: PLEAS E FAX TO Performed By: #### C MP, CBC #### [place] [address] [place] Sodium [Moles/Vol] 138 mmol/L Normal 136-146 [facility] Comment on above: Order Comment: PLEAS E FAX TO Performed By: #### C MP, CBC #### [facility] [address] [id number] [email or web address]] Urea nitrogen [Mass/Vol] 16 mg/dL Normal 9- [facility] Comment on above: Order Comment: PLEAS E FAX TO Performed By: #### C MP, CBC #### [facility] [address] [id number] [facility] [[email or web address]] Progress Noteson 04-02-2021 Stereo Equipment Repairer Authentication Interface Message Text Normal [facility] Progress Noteson 04-01-2021 Stereo Equipment Repairer Authentication Interface Message Text Patient was identified by name and date of . Lennice Hampton Short leg cast applied. Pins care and extra gauze applied. Care and instructions provided. Normal [facility] Stereo Equipment Repairer Authentication Interface Message Text Patient at risk for falls:Yes Falls Risk protocol implemented: Yes wheelchair in locked position when not in use for transport Normal [facility] Patient Instructionson 03-18 Stereo Equipment Repairer Authentication Interface Message Text Normal [facility] Progress Noteson 03-18-2021 Stereo Equipment Repairer Authentication Interface Message Text Normal [facility] Stereo Equipment Repairer Authentication Interface Message Text Patient was identified by name and date of . Rehab Zoqash .Patient at risk for falls:No Falls Risk protocol implemented: No Normal [facility] Progress Noteson 03-12-2021 Stereo Equipment Repairer Authentication Interface Message Text Normal [facility] Progress Noteson 03-11-2021 Stereo Equipment Repairer Authentication Interface Message Text Patient was identified by name and date of . Lennice Hampton Suture removal. Short leg cast applied to LLE over fixator pins. Care and instructions provided. Normal [facility] Telephone Encounteron 2020 Stereo Equipment Repairer Authentication Interface Message Text Normal [facility] BASIC METABOLIC PANELon Anion gap [Moles/Vol] 13 mmol/L Normal - [facility] Comment on above: Performed By: #### C H8 ####[facility] [id number] [place], [place], Calcium [Mass/Vol] 8.9 mg/dL Normal 8.4-10.4 [facility] Comment on above: Performed By: #### C H8 ####S PATHOLOGY [id number] [place], [place], Chloride [Moles/Vol] 104 mmol/L Normal 97-111 [facility] Comment on above: Performed By: #### C H8 ####S PATHOLOGY [id number] [place], [place], CO2 [Moles/Vol] 25 mmol/L Normal 21-30 [facility] Comment on above: Performed By: #### C H8 ####[facility] PATHOLOGY [id number] [place], [place], Creatinine [Mass/Vol] 0.99 mg/dL Normal 0.80-1.30 [facility] Comment on above: Performed By: #### C H8 ####[facility] PATHOLOGY [id number] [place], [place], ESTIMATED GFR (CKD-EPI) 75 mL/min/1.73sqm Normal >=60 [facility] Comment on above: Performed By: #### C H8 ####S PATHOLOGY [id number] [place], [place], Glucose [Mass/Vol] 101 mg/dL Normal 80-116 [facility] Comment on above: Performed By: #### C H8 ####S PATHOLOGY [id number] [place], [place], Potassium [Moles/Vol] 4.1 mmol/L Normal 3.3-5.3 [facility] Comment on above: Performed By: #### C H8 ####S PATHOLOGY [id number] [place], [place], Sodium [Moles/Vol] 138 mmol/L Normal 135-148 [facility] Comment on above: Performed By: #### C H8 ####S PATHOLOGY [id number] [place], Urea nitrogen [Mass/Vol] 19 mg/dL Normal 8-22 [facility] Comment on above: Performed By: #### C H8 ####[facility] [id number] [place], [place], Care Plan Noteon 02-28-2021 Stereo Equipment Repairer Authentication Interface Message Text Normal [facility] DIGOXINon 02-28-2021 DIG 0.78 ng/mL Low 0.80-2.00 [facility] Comment on above: Performed By: #### D IG ####[facility] [id number] [place], [place], Discharge Planning Noteon Stereo Equipment Repairer Authentication Interface Message Text Normal [facility] Progress Noteson 02-28-2021 Stereo Equipment Repairer Authentication Interface Message Text Report called to next facility to [facility]. Phone number provided to outside facility for any further questions. Reporting off to next shift. Normal [facility] Stereo Equipment Repairer Authentication Interface Message Text Normal [facility] BASIC METABOLIC PANELon 01-31 Anion gap [Moles/Vol] 13 mmol/L Normal 5-13 [facility] Comment on above: Performed By: #### C H8, MG ####[facility] [id number] [place], Calcium [Mass/Vol] 8.8 mg/dL Normal 8.4-10.4 [facility] Comment on above: Performed By: #### C H8, MG ####[facility] [id number] [place], Chloride [Moles/Vol] 104 mmol/L Normal 97-111 [facility] Comment on above: Performed By: #### C H8, MG ####[facility] [id number] [place], CO2 [Moles/Vol] 25 mmol/L Normal 21-30 [facility] Comment on above: Performed By: #### C H8, MG ####[facility] [id number] [place], Creatinine [Mass/Vol] 1.00 mg/dL Normal 0.80-1.30 [facility] Comment on above: Performed By: #### C H8, MG ####[facility] [id number] [place], ESTIMATED GFR (CKD-EPI) 74 mL/min/1.73sqm Normal >=60 [facility] Comment on above: Performed By: #### Austyn Tamez, MG ####[facility] [id number] [place], Glucose [Mass/Vol] 108 mg/dL Normal 80-116 [facility] Comment on above: Performed By: #### Austyn Tamez, MG ####[facility] [id number] [place], Potassium [Moles/Vol] 4.3 mmol/L Normal 3.3-5.3 [facility] Comment on above: Performed By: #### Austyn Tamez, MG ####S PATHOLOGY [id number] [place], Sodium [Moles/Vol] 138 mmol/L Normal 135-148 [facility] Comment on above: Performed By: #### Austyn Tamez, MG ####S PATHOLOGY [id number] [place], Urea nitrogen [Mass/Vol] 20 mg/dL Normal 8-22 [facility] Comment on above: Performed By: #### Austyn Saleh8, MG ####[facility] [id number] [place], COMPLETE BLOOD COUNTon 02-27 Erythrocyte distribution width (RBC) [Ratio] 15.1 % High 11.5-14.5 [facility] Comment on above: Performed By: #### C BC ####[facility] [id number] [place], Hematocrit (Bld) [Volume fraction] 30.9 % Low 41.0-53.0 [facility] Comment on above: Performed By: #### C BC ####[facility] [id number] [place], Hemoglobin (Bld) [Mass/Vol] 10.3 g/dL Low 13.9-16.3 [facility] Comment on above: Performed By: #### C BC ####[facility] PATHOLOGY [id number] [place], MCH (RBC) [Entitic mass] 31.8 pg Normal 26.0-34.0 [facility] Comment on above: Performed By: #### C BC ####S PATHOLOGY [id number] [place], MCHC (RBC) [Mass/Vol] 33.3 g/dL Normal 32.0-35.9 [facility] Comment on above: Performed By: #### C BC ####[facility] PATHOLOGY [id number] [place], MCV (RBC) [Entitic vol] 95 fL Normal 80-100 [facility] Comment on above: Performed By: #### C BC ####[facility] PATHOLOGY [id number] [place], Platelet mean volume (Bld) [Entitic vol] 10.2 fL Normal 7.5-11.2 [facility] Comment on above: Performed By: #### C BC ####[facility] PATHOLOGY [id number] [place], Platelets (Bld) [#/Vol] 209 10*3/uL Normal 150-400 [facility] Comment on above: Performed By: #### C BC ####[facility] PATHOLOGY [id number] [place], RBC (Bld) [#/Vol] 3.24 10*6/uL Low 4.50-5.90 [facility] Comment on above: Performed By: #### C BC ####[facility] PATHOLOGY [id number] [place], WBC (Bld) [#/Vol] 5.2 10*3/uL Normal 4.5-11.5 [facility] Comment on above: Performed By: #### C BC ####S PATHOLOGY [id number] [place], Care Plan Noteon 02-27-2021 Stereo Equipment Repairer Authentication Interface Message Text Normal [facility] Consultson 02-27-2021 Stereo Equipment Repairer Authentication Interface Message Text Normal [facility] Stereo Equipment Repairer Authentication Interface Message Text Normal [facility] MAGNESIUMon 02-27-2021 Magnesium [Mass/Vol] 2.3 mg/dL Normal 1.6-2.8 [facility] Comment on above: Performed By: #### C H8, MG ####S PATHOLOGY [id number] [place], Progress Noteson 02-27-2021 Stereo Equipment Repairer Authentication Interface Message Text Normal [facility] Stereo Equipment Repairer Authentication Interface Message Text Normal [facility] Stereo Equipment Repairer Authentication Interface Message Text Normal [facility] BASIC METABOLIC PANELon 01-30 Anion gap [Moles/Vol] 14 mmol/L High 5-13 [facility] Comment on above: Performed By: #### Rajiv Roque, CH8 ####S PATHOLOGY [id number] [place], Calcium [Mass/Vol] 9.0 mg/dL Normal 8.4-10.4 [facility] Comment on above: Performed By: #### Rajiv Roque, CH8 ####S PATHOLOGY [id number] [place], Chloride [Moles/Vol] 103 mmol/L Normal 97-111 [facility] Comment on above: Performed By: #### Rajiv Roque, CH8 ####S PATHOLOGY [id number] [place], CO2 [Moles/Vol] 24 mmol/L Normal 21-30 [facility] Comment on above: Performed By: #### Rajiv Roque, CH8 ####S PATHOLOGY [id number] [place], Creatinine [Mass/Vol] 1.00 mg/dL Normal 0.80-1.30 [facility] Comment on above: Performed By: #### Rajiv Roque, CH8 ####S PATHOLOGY [id number] [place], ESTIMATED GFR (CKD-EPI) 74 mL/min/1.73sqm Normal >=60 [facility] Comment on above: Performed By: #### Rajiv Roque, CH8 ####S PATHOLOGY [id number] [place], Glucose [Mass/Vol] 103 mg/dL Normal 80-116 The [facility] Comment on above: Performed By: #### Rajiv Roque, CH8 ####S PATHOLOGY [id number] [place], Potassium [Moles/Vol] 4.3 mmol/L Normal 3.3-5.3 [facility] Comment on above: Performed By: #### Rajiv Roque, CH8 ####[facility] PATHOLOGY [id number] [place], Sodium [Moles/Vol] 137 mmol/L Normal 135-148 [facility] Comment on above: Performed By: #### Rajiv Roque, CH8 ####[facility] PATHOLOGY [id number] [place], Urea nitrogen [Mass/Vol] 17 mg/dL Normal 8-22 [facility] Comment on above: Performed By: #### Rajiv Roque, CH8 ####[facility] PATHOLOGY [id number] [place], COMPLETE BLOOD COUNTon 02-26 Erythrocyte distribution width (RBC) [Ratio] 14.6 % High 11.5-14.5 [facility] Comment on above: Performed By: #### C BC ####[facility] PATHOLOGY [id number] [place], Hematocrit (Bld) [Volume fraction] 30.7 % Low 41.0-53.0 [facility] Comment on above: Performed By: #### C BC ####[facility] PATHOLOGY [id number] [place], Hemoglobin (Bld) [Mass/Vol] 10.5 g/dL Low 13.9-16.3 [facility] Comment on above: Performed By: #### C BC ####[facility] PATHOLOGY [id number] [place], MCH (RBC) [Entitic mass] 31.7 pg Normal 26.0-34.0 [facility] Comment on above: Performed By: #### C BC ####S PATHOLOGY [id number] [place], MCHC (RBC) [Mass/Vol] 34.1 g/dL Normal 32.0-35.9 [facility] Comment on above: Performed By: #### C BC ####S PATHOLOGY [id number] [place], MCV (RBC) [Entitic vol] 93 fL Normal 80-100 [facility] Comment on above: Performed By: #### C BC ####S PATHOLOGY [id number] [place], Platelet mean volume (Bld) [Entitic vol] 10.3 fL Normal 7.5-11.2 [facility] Comment on above: Performed By: #### C BC ####[facility] PATHOLOGY [id number] [place], Platelets (Bld) [#/Vol] 205 10*3/uL Normal 150-400 [facility] Comment on above: Performed By: #### C BC ####[facility] PATHOLOGY [id number] [place], RBC (Bld) [#/Vol] 3.30 10*6/uL Low 4.50-5.90 [facility] Comment on above: Performed By: #### C BC ####[facility] PATHOLOGY [id number] [place], WBC (Bld) [#/Vol] 5.3 10*3/uL Normal 4.5-11.5 [facility] Comment on above: Performed By: #### C BC ####S PATHOLOGY [id number] [place], Care Plan Noteon 02-26-2021 Stereo Equipment Repairer Authentication Interface Message Text Normal [facility] Consultson 02-26-2021 Stereo Equipment Repairer Authentication Interface Message Text Normal [facility] Stereo Equipment Repairer Authentication Interface Message Text Normal [facility] MAGNESIUMon 02-26-2021 Magnesium [Mass/Vol] 2.2 mg/dL Normal 1.6-2.8 [facility] Comment on above: Performed By: #### Rajiv Roque, CH8 ####S PATHOLOGY [id number] [place], Progress Noteson 02-26-2021 Stereo Equipment Repairer Authentication Interface Message Text Normal [facility] Stereo Equipment Repairer Authentication Interface Message Text Normal [facility] Stereo Equipment Repairer Authentication Interface Message Text Normal [facility] Stereo Equipment Repairer Authentication Interface Message Text Normal [facility] BASIC METABOLIC PANELon 06-2 Anion gap [Moles/Vol] 15 mmol/L High 5-13 [facility] Comment on above: Performed By: #### Rajiv Roque, ALESHA8 ####S PATHOLOGY [id number] [place], Calcium [Mass/Vol] 9.7 mg/dL Normal 8.4-10.4 [facility] Comment on above: Performed By: #### Rajiv Roque, ALESHA8 ####S PATHOLOGY [id number] [place], Chloride [Moles/Vol] 112 mmol/L High 97-111 [facility] Comment on above: Performed By: #### Rajiv Roque, ALESHA8 ####S PATHOLOGY [id number] [place], CO2 [Moles/Vol] 27 mmol/L Normal 21-30 [facility] Comment on above: Performed By: #### Rajiv Roque, ALESHA8 ####S PATHOLOGY [id number] [place], Creatinine [Mass/Vol] 0.96 mg/dL Normal 0.80-1.30 [facility] Comment on above: Performed By: #### Rajiv Roque, CH8 ####S PATHOLOGY [id number] [place], ESTIMATED GFR (CKD-EPI) 78 mL/min/1.73sqm Normal >=60 [facility] Comment on above: Performed By: #### Rajiv Roque, CH8 ####[facility] [id number] [place], Glucose [Mass/Vol] 113 mg/dL Normal 80-116 [facility] Comment on above: Performed By: #### Rajiv Roque, CH8 ####S PATHOLOGY [id number] [place], Potassium [Moles/Vol] 4.9 mmol/L Normal 3.3-5.3 [facility] Comment on above: Performed By: #### Rajiv Roque, CH8 ####S PATHOLOGY [id number] [place], Sodium [Moles/Vol] 149 mmol/L High 135-148 [facility] Comment on above: Performed By: #### Rajiv Roque, CH8 ####[facility] PATHOLOGY [id number] [place], Urea nitrogen [Mass/Vol] 16 mg/dL Normal 8-22 [facility] Comment on above: Performed By: #### Rajiv Roque, ALESHA8 ####[facility] PATHOLOGY [id number] [place], COMPLETE BLOOD COUNTon 02-25 Erythrocyte distribution width (RBC) [Ratio] 14.5 % Normal 11.5-14.5 [facility] Comment on above: Performed By: #### C BC ####[facility] PATHOLOGY [id number] [place], Hematocrit (Bld) [Volume fraction] 29.6 % Low 41.0-53.0 [facility] Comment on above: Performed By: #### C BC ####[facility] PATHOLOGY [id number] [place], Hemoglobin (Bld) [Mass/Vol] 9.9 g/dL Low 13.9-16.3 [facility] Comment on above: Performed By: #### C BC ####S PATHOLOGY [id number] [place], MCH (RBC) [Entitic mass] 31.2 pg Normal 26.0-34.0 [facility] Comment on above: Performed By: #### C BC ####S PATHOLOGY [id number] [place], MCHC (RBC) [Mass/Vol] 33.6 g/dL Normal 32.0-35.9 [facility] Comment on above: Performed By: #### C BC ####S PATHOLOGY [id number] [place], MCV (RBC) [Entitic vol] 93 fL Normal 80-100 [facility] Comment on above: Performed By: #### C BC ####[facility] [id number] [place], Platelet mean volume (Bld) [Entitic vol] 9.8 fL Normal 7.5-11.2 [facility] Comment on above: Performed By: #### C BC ####S PATHOLOGY [id number] [place], Platelets (Bld) [#/Vol] 207 10*3/uL Normal 150-400 [facility] Comment on above: Performed By: #### C BC ####[facility] PATHOLOGY [id number] [place], RBC (Bld) [#/Vol] 3.19 10*6/uL Low 4.50-5.90 [facility] Comment on above: Performed By: #### C BC ####[facility] PATHOLOGY [id number] [place], WBC (Bld) [#/Vol] 5.6 10*3/uL Normal 4.5-11.5 [facility] Comment on above: Performed By: #### C BC ####[facility] PATHOLOGY [id number] [place], Care Plan Noteon 02-25-2021 Stereo Equipment Repairer Authentication Interface Message Text Normal [facility] Consultson 02-25-2021 Stereo Equipment Repairer Authentication Interface Message Text Normal [facility] Stereo Equipment Repairer Authentication Interface Message Text Normal [facility] MAGNESIUMon 02-25-2021 Magnesium [Mass/Vol] 2.1 mg/dL Normal 1.6-2.8 [facility] Comment on above: Performed By: #### M Mya, CH8 ####S PATHOLOGY [id number] [place], Nursing Noteon 02-25-2021 Stereo Equipment Repairer Authentication Interface Message Text Normal [facility] Progress Noteson 02-25-2021 Stereo Equipment Repairer Authentication Interface Message Text Normal [facility] Stereo Equipment Repairer Authentication Interface Message Text Normal [facility] BASIC METABOLIC PANELon - Anion gap [Moles/Vol] 14 mmol/L High 5-13 [facility] Comment on above: Performed By: #### C H8, MG ####[facility] [id number] [place], Calcium [Mass/Vol] 9.0 mg/dL Normal 8.4-10.4 [facility] Comment on above: Performed By: #### C H8, MG ####[facility] [id number] [place], Chloride [Moles/Vol] 102 mmol/L Normal 97-111 [facility] Comment on above: Performed By: #### C H8, MG ####[facility] [id number] [place], CO2 [Moles/Vol] 23 mmol/L Normal 21-30 [facility] Comment on above: Performed By: #### C H8, MG ####[facility] [id number] [place], Creatinine [Mass/Vol] 0.94 mg/dL Normal 0.80-1.30 [facility] Comment on above: Performed By: #### C H8, MG ####[facility] [id number] [place], ESTIMATED GFR (CKD-EPI) 80 mL/min/1.73sqm Normal >=60 [facility] Comment on above: Performed By: #### C H8, MG ####[facility] PATH[facility] [id number] [place], Glucose [Mass/Vol] 108 mg/dL Normal 80-116 [facility] Comment on above: Performed By: #### C H8, MG ####[facility] [id number] [place], Potassium [Moles/Vol] 4.3 mmol/L Normal 3.3-5.3 [facility] Comment on above: Performed By: #### C H8, MG ####S PATHOLOGY [id number] [place], Sodium [Moles/Vol] 135 mmol/L Normal 135-148 [facility] Comment on above: Performed By: #### C H8, MG ####[facility] PATHOLOGY [id number] [place], Urea nitrogen [Mass/Vol] 15 mg/dL Normal 8-22 [facility] Comment on above: Performed By: #### C H8, MG ####[facility] PATHOLOGY [id number] [place], COMPLETE BLOOD COUNTon 02-24 Erythrocyte distribution width (RBC) [Ratio] 14.9 % High 11.5-14.5 [facility] Comment on above: Performed By: #### C BC ####[facility] PATHOLOGY [id number] [place], Hematocrit (Bld) [Volume fraction] 28.2 % Low 41.0-53.0 [facility] Comment on above: Performed By: #### C BC ####[facility] PATHOLOGY [id number] [place], Hemoglobin (Bld) [Mass/Vol] 9.8 g/dL Low 13.9-16.3 [facility] Comment on above: Performed By: #### C BC ####[facility] PATHOLOGY [id number] [place], MCH (RBC) [Entitic mass] 33.0 pg Normal 26.0-34.0 [facility] Comment on above: Performed By: #### C BC ####[facility] PATHOLOGY [id number] [place], MCHC (RBC) [Mass/Vol] 34.7 g/dL Normal 32.0-35.9 [facility] Comment on above: Performed By: #### C BC ####S PATHOLOGY [id number] [place], MCV (RBC) [Entitic vol] 95 fL Normal 80-100 [facility] Comment on above: Performed By: #### C BC ####S PATHOLOGY [id number] [place], Platelet mean volume (Bld) [Entitic vol] 10.1 fL Normal 7.5-11.2 [facility] Comment on above: Performed By: #### C BC ####S PATHOLOGY [id number] [place], Platelets (Bld) [#/Vol] 206 10*3/uL Normal 150-400 [facility] Comment on above: Performed By: #### C BC ####[facility] PATHOLOGY [id number] [place], RBC (Bld) [#/Vol] 2.96 10*6/uL Low 4.50-5.90 [facility] Comment on above: Performed By: #### C BC ####[facility] PATHOLOGY [id number] [place], WBC (Bld) [#/Vol] 5.8 10*3/uL Normal 4.5-11.5 [facility] Comment on above: Performed By: #### C BC ####[facility] PATHOLOGY [id number] [place], Care Plan Noteon 02-24-2021 Stereo Equipment Repairer Authentication Interface Message Text Normal [facility] MAGNESIUMon 02-24-2021 Magnesium [Mass/Vol] 1.9 mg/dL Normal 1.6-2.8 [facility] Comment on above: Performed By: #### C H8, MG ####S PATHOLOGY [id number] [place], Progress Noteson 02-24-2021 Stereo Equipment Repairer Authentication Interface Message Text Normal [facility] BASIC METABOLIC PANELon 01-30 Anion gap [Moles/Vol] 15 mmol/L High 5-13 [facility] Comment on above: Performed By: #### M G, CH8 ####S PATHOLOGY [id number] [place], Calcium [Mass/Vol] 8.9 mg/dL Normal 8.4-10.4 [facility] Comment on above: Performed By: #### Rajiv Roque, CH8 ####S PATHOLOGY [id number] [place], Chloride [Moles/Vol] 105 mmol/L Normal 97-111 [facility] Comment on above: Performed By: #### Rajiv Roque, CH8 ####S PATHOLOGY [id number] [place], CO2 [Moles/Vol] 22 mmol/L Normal 21-30 [facility] Comment on above: Performed By: #### Rajiv Roque, CH8 ####S PATHOLOGY [id number] [place], Creatinine [Mass/Vol] 0.87 mg/dL Normal 0.80-1.30 [facility] Comment on above: Performed By: #### Rajiv Roque, CH8 ####[facility] PATHOLOGY [id number] [place], ESTIMATED GFR (CKD-EPI) 85 mL/min/1.73sqm Normal >=60 [facility] Comment on above: Performed By: #### Rajiv Roque, CH8 ####[facility] PATHOLOGY [id number] [place], Glucose [Mass/Vol] 103 mg/dL Normal 80-116 [facility] Comment on above: Performed By: #### Rajiv Roque, CH8 ####S PATHOLOGY [id number] [place], Potassium [Moles/Vol] 4.6 mmol/L Normal 3.3-5.3 [facility] Comment on above: Performed By: #### Rajiv Roque, CH8 ####S PATHOLOGY [id number] [place], Sodium [Moles/Vol] 137 mmol/L Normal 135-148 [facility] Comment on above: Performed By: #### Rajiv Roque, ALESHA8 ####S PATHOLOGY [id number] [place], Urea nitrogen [Mass/Vol] 20 mg/dL Normal 8-22 [facility] Comment on above: Performed By: #### M G, CH8 ####[facility] PATHOLOGY [id number] [place], COMPLETE BLOOD COUNTon 02-23 Erythrocyte distribution width (RBC) [Ratio] 15.1 % High 11.5-14.5 [facility] Comment on above: Performed By: #### C BC ####[facility] PATHOLOGY [id number] [place], Hematocrit (Bld) [Volume fraction] 29.0 % Low 41.0-53.0 [facility] Comment on above: Performed By: #### C BC ####[facility] PATHOLOGY [id number] [place], Hemoglobin (Bld) [Mass/Vol] 9.6 g/dL Low 13.9-16.3 [facility] Comment on above: Performed By: #### C BC ####[facility] PATHOLOGY [id number] [place] [address], MCH (RBC) [Entitic mass] 31.6 pg Normal 26.0-34.0 [facility] Comment on above: Performed By: #### C BC ####[facility] PATHOLOGY [id number] [place] MCHC (RBC) [Mass/Vol] 33.1 g/dL Normal 32.0-35.9 [facility] Comment on above: Performed By: #### C BC ####[facility] PATHOLOGY [id number] [place], MCV (RBC) [Entitic vol] 95 fL Normal 80-100 [facility] Comment on above: Performed By: #### C BC ####[facility] PATHOLOGY [id number] [place], Platelet mean volume (Bld) [Entitic vol] 10.4 fL Normal 7.5-11.2 The [facility] Comment on above: Performed By: #### C BC ####[facility] PATHOLOGY [id number] [place], [place], Platelets (Bld) [#/Vol] 212 10*3/uL Normal 150-400 The [facility] Comment on above: Performed By: #### C BC ####S PATHOLOGY [id number] [place], RBC (Bld) [#/Vol] 3.04 10*6/uL Low 4.50-5.90 The [facility] Comment on above: Performed By: #### C BC ####[facility] PATHOLOGY [id number] [place], WBC (Bld) [#/Vol] 6.8 10*3/uL Normal 4.5-11.5 The [facility] Comment on above: Performed By: #### C BC ####[facility] PATHOLOGY [id number] [place], Care Plan Noteon 02-23-2021 Stereo Equipment Repairer Authentication Interface Message Text Normal [facility] MAGNESIUMon 02-23-2021 Magnesium [Mass/Vol] 2.0 mg/dL Normal 1.6-2.8 The [facility] Comment on above: Performed By: #### Rajiv Roque CH8 ####[facility] PATHOLOGY [id number] [place] [address], Progress Noteson 02-23-2021 Stereo Equipment Repairer Authentication Interface Message Text Normal The [facility] BASIC METABOLIC PANELon 01-30 Anion gap [Moles/Vol] 13 mmol/L Normal 5-13 The [facility] Comment on above: Performed By: #### Austyn H8, MG ####S PATHOLOGY [id number] [place], Calcium [Mass/Vol] 8.7 mg/dL Normal 8.4-10.4 The [facility] Comment on above: Performed By: #### Austyn H8, MG ####S PATHOLOGY [id number] [place], Chloride [Moles/Vol] 106 mmol/L Normal 97-111 The [facility] Comment on above: Performed By: #### Austyn H8, MG ####S PATHOLOGY [id number] [place], CO2 [Moles/Vol] 22 mmol/L Normal 21-30 The [facility] Comment on above: Performed By: #### C H8, MG ####S PATHOLOGY [id number] [place], Creatinine [Mass/Vol] 0.90 mg/dL Normal 0.80-1.30 The [facility] Comment on above: Performed By: #### C H8, MG ####S PATHOLOGY [id number] [place], ESTIMATED GFR (CKD-EPI) 84 mL/min/1.73sqm Normal >=60 The [facility] Comment on above: Performed By: #### C H8, MG ####S PATHOLOGY [id number] [place], Glucose [Mass/Vol] 97 mg/dL Normal 80-116 The [facility] Comment on above: Performed By: #### C H8, MG ####S PATHOLOGY [id number] [place], Potassium [Moles/Vol] 4.2 mmol/L Normal 3.3-5.3 The [facility] Comment on above: Performed By: #### C H8, MG ####S PATHOLOGY [id number] [place] [address], Sodium [Moles/Vol] 137 mmol/L Normal 135-148 The [facility] Comment on above: Performed By: #### C H8, MG ####S PATHOLOGY [id number] [place], Urea nitrogen [Mass/Vol] 17 mg/dL Normal 8-22 The [facility] Comment on above: Performed By: #### C H8, MG ####[facility] [id number] [place], COMPLETE BLOOD COUNTon 02-22 Erythrocyte distribution width (RBC) [Ratio] 15.0 % High 11.5-14.5 The [facility] Comment on above: Performed By: #### C BC ####[facility] PATHOLOGY [id number] [place] [address], Hematocrit (Bld) [Volume fraction] 27.4 % Low 41.0-53.0 The [facility] Comment on above: Performed By: #### C BC ####[facility] PATHOLOGY [id number] [place], Hemoglobin (Bld) [Mass/Vol] 9.2 g/dL Low 13.9-16.3 The [facility] Comment on above: Performed By: #### C BC ####[facility] PATHOLOGY [id number] [place], MCH (RBC) [Entitic mass] 31.4 pg Normal 26.0-34.0 The [facility] Comment on above: Performed By: #### C BC ####[facility] PATHOLOGY [id number] [place] [address], MCHC (RBC) [Mass/Vol] 33.6 g/dL Normal 32.0-35.9 The [facility] Comment on above: Performed By: #### C BC ####[facility] PATHOLOGY [id number] [place] [address], MCV (RBC) [Entitic vol] 93 fL Normal 80-100 The [facility] Comment on above: Performed By: #### C BC ####[facility] PATHOLOGY [id number] [place] [address], Platelet mean volume (Bld) [Entitic vol] 9.9 fL Normal 7.5-11.2 The [facility] Comment on above: Performed By: #### C BC ####[facility] PATHOLOGY [id number] [place], Platelets (Bld) [#/Vol] 204 10*3/uL Normal 150-400 The [facility] Comment on above: Performed By: #### C BC ####[facility] PATHOLOGY [id number] [place], RBC (Bld) [#/Vol] 2.94 10*6/uL Low 4.50-5.90 The [facility] Comment on above: Performed By: #### C BC ####[facility] PATHOLOGY [id number] [place], WBC (Bld) [#/Vol] 6.7 10*3/uL Normal 4.5-11.5 The [facility] Comment on above: Performed By: #### C BC ####[facility] [id number] [place], Care Plan Noteon 02-22-2021 Stereo Equipment Repairer Authentication Interface Message Text Normal [facility] Consultson 02-22-2021 Stereo Equipment Repairer Authentication Interface Message Text Normal [facility] MAGNESIUMon 02-22-2021 Magnesium [Mass/Vol] 2.0 mg/dL Normal 1.6-2.8 The [facility] Comment on above: Performed By: #### C H8, MG ####[facility] PATH[facility]Y [id number] [place], Progress Noteson 02-22-2021 Stereo Equipment Repairer Authentication Interface Message Text Normal [facility] Stereo Equipment Repairer Authentication Interface Message Text Normal [facility] Stereo Equipment Repairer Authentication Interface Message Text Normal [facility] BASIC METABOLIC PANELon 01-30 Anion gap [Moles/Vol] 13 mmol/L Normal 5-13 The [facility] Comment on above: Performed By: #### Austyn H8, MG ####[facility] PATH[facility]Y [id number] [place], Calcium [Mass/Vol] 8.4 mg/dL Normal 8.4-10.4 The [facility] Comment on above: Performed By: #### C H8, MG ####[facility] PATH[facility]Y [id number] [place], Chloride [Moles/Vol] 107 mmol/L Normal 97-111 The [facility] Comment on above: Performed By: #### C H8, MG ####[facility] PATH[facility]Y [id number] [place], CO2 [Moles/Vol] 22 mmol/L Normal 21-30 [facility] Comment on above: Performed By: #### C H8, MG ####[facility] PATH[facility]Y [id number] [place], Creatinine [Mass/Vol] 0.85 mg/dL Normal 0.80-1.30 The [facility] Comment on above: Performed By: #### C H8, MG ####[facility] PATH[facility]Y [id number] [place], ESTIMATED GFR (CKD-EPI) 86 mL/min/1.73sqm Normal >=60 The [facility] Comment on above: Performed By: #### C H8, MG ####[facility] PATH[facility]Y [id number] [place], Glucose [Mass/Vol] 107 mg/dL Normal 80-116 The [facility] Comment on above: Performed By: #### C H8, MG ####[facility] PATH[facility]Y [id number] [place], Potassium [Moles/Vol] 4.0 mmol/L Normal 3.3-5.3 The [facility] Comment on above: Performed By: #### C H8, MG ####[facility] PATH[facility]Y [id number] [place], Sodium [Moles/Vol] 138 mmol/L Normal 135-148 The [facility] Comment on above: Performed By: #### C H8, MG ####[facility] PATH[facility]Y [id number] [place], Urea nitrogen [Mass/Vol] 16 mg/dL Normal 8-22 The [facility] Comment on above: Performed By: #### C H8, MG ####[facility] PATH[facility]Y [id number] [place], COMPLETE BLOOD COUNTon 02-21 Erythrocyte distribution width (RBC) [Ratio] 15.2 % High 11.5-14.5 The [facility] Comment on above: Performed By: #### C BC ####[facility] [id number] [place], Hematocrit (Bld) [Volume fraction] 26.7 % Low 41.0-53.0 The [facility] Comment on above: Performed By: #### C BC ####[facility] PATH[facility] [id number] [place], Hemoglobin (Bld) [Mass/Vol] 9.2 g/dL Low 13.9-16.3 The [facility] Comment on above: Performed By: #### C BC ####[facility] PATHOLOGY [id number] [place], MCH (RBC) [Entitic mass] 32.3 pg Normal 26.0-34.0 The [facility] Comment on above: Performed By: #### C BC ####[facility] PATHOLOGY [id number] [place], MCHC (RBC) [Mass/Vol] 34.2 g/dL Normal 32.0-35.9 The [facility] Comment on above: Performed By: #### C BC ####[facility] PATHOLOGY [id number] [place], MCV (RBC) [Entitic vol] 94 fL Normal 80-100 The [facility] Comment on above: Performed By: #### C BC ####[facility] PATHOLOGY [id number] [place], Plate[place] mean volume (Bld) [Entitic vol] 10.2 fL Normal 7.5-11.2 The [facility] Comment on above: Performed By: #### C BC ####[facility] PATHOLOGY [id number] [place], Platelets (Bld) [#/Vol] 204 10*3/uL Normal 150-400 The [facility] Comment on above: Performed By: #### C BC ####[facility] PATHOLOGY [id number] [place], RBC (Bld) [#/Vol] 2.83 10*6/uL Low 4.50-5.90 The [facility] Comment on above: Performed By: #### C BC ####[facility] PATHOLOGY [id number] [place], WBC (Bld) [#/Vol] 7.8 10*3/uL Normal 4.5-11.5 The [facility] Comment on above: Performed By: #### C BC ####S PATHOLOGY [id number] [place], Care Plan Noteon 02-21-2021 Stereo Equipment Repairer Authentication Interface Message Text Normal The [facility] Consultson 02-21-2021 Stereo Equipment Repairer Authentication Interface Message Text Normal [facility] Stereo Equipment Repairer Authentication Interface Message Text Normal [facility] Stereo Equipment Repairer Authentication Interface Message Text Normal [facility] MAGNESIUMon 02-21-2021 Magnesium [Mass/Vol] 2.1 mg/dL Normal 1.6-2.8 [facility] Comment on above: Performed By: #### C H8, MG ####[facility] [id number] [place], Progress Noteson 02-21-2021 Stereo Equipment Repairer Authentication Interface Message Text Per Trauma, unclear when pt is ready for DC. Pt accepted to [facility]. Please alert SW when pt is nearing DC. Pt will require a precert. Amada Saul [facility], [employer] [phone] Normal The [facility] Stereo Equipment Repairer Authentication Interface Message Text Normal [facility] Stereo Equipment Repairer Authentication Interface Message Text Normal [facility] BASIC METABOLIC PANELon 01-30 Anion gap [Moles/Vol] 9 mmol/L Normal 5-13 [facility] Comment on above: Performed By: #### Rajiv Roque CH8 ####[facility] [id number] [place], Calcium [Mass/Vol] 8.5 mg/dL Normal 8.4-10.4 [facility] Comment on above: Performed By: #### Rajiv Roque, CH8 ####[facility] [id number] [place], Chloride [Moles/Vol] 104 mmol/L Normal 97-111 [facility] Comment on above: Performed By: #### Rajiv Roque, CH8 ####[facility] PATH[facility]Y [id number] [place], CO2 [Moles/Vol] 24 mmol/L Normal 21-30 [facility] Comment on above: Performed By: #### Rajiv Roque, CH8 ####[facility]Y [id number] [place], Creatinine [Mass/Vol] 0.95 mg/dL Normal 0.80-1.30 The [facility] Comment on above: Performed By: #### Rajiv Roque, CH8 ####S PATHOLOGY [id number] [place], ESTIMATED GFR (CKD-EPI) 79 mL/min/1.73sqm Normal >=60 The [facility] Comment on above: Performed By: #### Rajiv Roque, CH8 ####S PATHOLOGY [id number] [place], Glucose [Mass/Vol] 112 mg/dL Normal 80-116 The [facility] Comment on above: Performed By: #### Rajiv Roque, CH8 ####S PATHOLOGY [id number] [place], Potassium [Moles/Vol] 4.3 mmol/L Normal 3.3-5.3 The [facility] Comment on above: Performed By: #### Rajiv Roque, CH8 ####S PATHOLOGY [id number] [place], Sodium [Moles/Vol] 133 mmol/L Low 135-148 The [facility] Comment on above: Performed By: #### Rajiv Roque, CH8 ####S PATHOLOGY [id number] [place], Urea nitrogen [Mass/Vol] 16 mg/dL Normal 8-22 The [facility] Comment on above: Performed By: #### Rajiv Roque, CH8 ####S PATHOLOGY [id number] [place], COMPLETE BLOOD COUNTon 02-20 Erythrocyte distribution width (RBC) [Ratio] 14.9 % High 11.5-14.5 The [facility] Comment on above: Performed By: #### C BC ####S PATHOLOGY [id number] [place], Hematocrit (Bld) [Volume fraction] 30.1 % Low 41.0-53.0 The [facility] Comment on above: Performed By: #### C BC ####S PATHOLOGY [id number] [place], Hemoglobin (Bld) [Mass/Vol] 10.1 g/dL Low 13.9-16.3 The [facility] Comment on above: Performed By: #### C BC ####[facility] PATHOLOGY [id number] [place], MCH (RBC) [Entitic mass] 31.7 pg Normal 26.0-34.0 The [facility] Comment on above: Performed By: #### C BC ####[facility] PATHOLOGY [id number] [place], MCHC (RBC) [Mass/Vol] 33.5 g/dL Normal 32.0-35.9 The [facility] Comment on above: Performed By: #### C BC ####[facility] PATHOLOGY [id number] [place], MCV (RBC) [Entitic vol] 95 fL Normal 80-100 The [facility] Comment on above: Performed By: #### C BC ####[facility] PATHOLOGY [id number] [place], Platelet mean volume (Bld) [Entitic vol] 10.1 fL Normal 7.5-11.2 The [facility] Comment on above: Performed By: #### C BC ####[facility] PATHOLOGY [id number] [place], Platelets (Bld) [#/Vol] 225 10*3/uL Normal 150-400 The [facility] Comment on above: Performed By: #### C BC ####[facility] PATHOLOGY [id number] [place], RBC (Bld) [#/Vol] 3.18 10*6/uL Low 4.50-5.90 The [facility] Comment on above: Performed By: #### C BC ####[facility] PATHOLOGY [id number] [place], WBC (Bld) [#/Vol] 8.3 10*3/uL Normal 4.5-11.5 The [facility] Comment on above: Performed By: #### C BC ####[facility] PATHOLOGY [id number] [place], Care Plan Noteon 02-20-2021 Stereo Equipment Repairer Authentication Interface Message Text Normal [facility] Consultson 02-20-2021 Stereo Equipment Repairer Authentication Interface Message Text Normal [facility] H AND Martin 02-20-2021 Stereo Equipment Repairer Authentication Interface Message Text Normal [facility] MAGNESIUMon 02-20-2021 Magnesium [Mass/Vol] 1.8 mg/dL Normal 1.6-2.8 [facility] Comment on above: Performed By: #### JENNIFER Blum ####S PATHOLOGY [id number] [place], Procedureson 02-20-2021 Stereo Equipment Repairer Authentication Interface Message Text Normal The [facility] Progress Noteson 02-20-2021 Stereo Equipment Repairer Authentication Interface Message Text Normal [facility] Stereo Equipment Repairer Authentication Interface Message Text Entered in error. Normal [facility] Stereo Equipment Repairer Authentication Interface Message Text Normal [facility] Stereo Equipment Repairer Authentication Interface Message Text Normal [facility] Anesthesia Acute Painon 01-30 Stereo Equipment Repairer Authentication Interface Message Text Normal [facility] Anesthesia Attestationon Stereo Equipment Repairer Authentication Interface Message Text Normal [facility] Anesthesia Postprocedure Lucretia luationon 02-19-2021 Stereo Equipment Repairer Authentication Interface Message Text Normal [facility] Stereo Equipment Repairer Authentication Interface Message Text Normal [facility] Anesthesia Procedure Noteson 02-19-2021 Stereo Equipment Repairer Authentication Interface Message Text Normal [facility] Anesthesia Transfer Of Careo n 02-19-2021 Stereo Equipment Repairer Authentication Interface Message Text Normal [facility] BASIC METABOLIC PANELon 01-30 Anion gap [Moles/Vol] 13 mmol/L Normal 5-13 [facility] Comment on above: Performed By: #### JENNIFER Blum ####[facility] [id number] [place], Calcium [Mass/Vol] 8.9 mg/dL Normal 8.4-10.4 The [facility] Comment on above: Performed By: #### JENNIFER Blum ####[facility] [id number] [place], Chloride [Moles/Vol] 107 mmol/L Normal 97-111 The [facility] Comment on above: Performed By: #### Rajiv Roque, CH8 ####S PATHOLOGY [id number] [place], CO2 [Moles/Vol] 21 mmol/L Normal 21-30 [facility] Comment on above: Performed By: #### Rajiv Roque, CH8 ####S PATHOLOGY [id number] [place], Creatinine [Mass/Vol] 1.00 mg/dL Normal 0.80-1.30 [facility] Comment on above: Performed By: #### Rajiv Roque, CH8 ####S PATHOLOGY [id number] [place], ESTIMATED GFR (CKD-EPI) 74 mL/min/1.73sqm Normal >=60 [facility] Comment on above: Performed By: #### Rajiv Roque, CH8 ####S PATHOLOGY [id number] [place], Glucose [Mass/Vol] 102 mg/dL Normal 80-116 [facility] Comment on above: Performed By: #### Rajiv Roque, CH8 ####S PATHOLOGY [id number] [place], Potassium [Moles/Vol] 4.3 mmol/L Normal 3.3-5.3 [facility] Comment on above: Performed By: #### Rajiv Roque, CH8 ####S PATHOLOGY [id number] [place], Sodium [Moles/Vol] 137 mmol/L Normal 135-148 [facility] Comment on above: Performed By: #### Rajiv Roque, CH8 ####S PATHOLOGY [id number] [place], Urea nitrogen [Mass/Vol] 23 mg/dL High 8-22 [facility] Comment on above: Performed By: #### Rajiv Roque, CH8 ####S PATHOLOGY [id number] [place], BLOOD GAS, ARTERIALon 2020 CR % O2 SAT > 99.4 Normal >=95.1 [facility] Comment on above: Performed By: #### C R GLU, CR COOX, CR ICA, CR BGA, CR LYTES, LACT ####[facility] PATHOLOGY [id number] [place] [address], CR MAYCOL -2.1 mmol/L Low -2.0-2.0 [facility] Comment on above: Performed By: #### C R GLU, CR COOX, CR ICA, CR BGA, CR LYTES, LACT ####[facility] PATHOLOGY [id number] [place] [address], CR PCO2 32.5 mm Hg Low 35.0-45.0 [facility] Comment on above: Performed By: #### C R GLU, CR COOX, CR ICA, CR BGA, CR LYTES, LACT ####[facility] PATHOLOGY [id number] [place] [address], CR PHA 7.429 Normal 7.35-7.45 The [facility] Comment on above: Performed By: #### C R GLU, CR COOX, CR ICA, CR BGA, CR LYTES, LACT ####[facility] PATHOLOGY [id number] [place] [address], CR PO2 190 mm Hg High 80-100 mm Hg [facility] Comment on above: Performed By: #### C R GLU, CR COOX, CR ICA, CR BGA, CR LYTES, LACT ####[facility] PATHOLOGY [id number] [place] [address], HCO3 (Bld) [Moles/Vol] 21 mmol/L Low 22-28 [facility] Comment on above: Performed By: #### C R GLU, CR COOX, CR ICA, CR BGA, CR LYTES, LACT ####[facility] PATHOLOGY [id number] [place] [address], Brief Operative Noteon 02-19 Stereo Equipment Repairer Authentication Interface Message Text Normal [facility] CALCIUM, IONIZEDon CR ICA 1.12 mmol/L Normal 1.10-1.40 [facility] Comment on above: Performed By: #### C R GLU, CR COOX, CR ICA, CR BGA, CR LYTES, LACT ####[facility] PATHOLOGY [id number] [place] [address], CO-OXIMETERon 02-19-2021 CARBOXYHEMOGLOBIN 2.2 % Normal <3.0 The [facility] Comment on above: Performed By: #### C R GLU, CR COOX, CR ICA, CR BGA, CR LYTES, LACT ####[facility] PATHOLOGY [id number] [place] [address], CR HBMET 1.4 % Normal <3.0 The [facility] Comment on above: Performed By: #### C R GLU, CR COOX, CR ICA, CR BGA, CR LYTES, LACT ####[facility] PATHOLOGY [id number] [place] [address], Hematocrit (Bld) [Volume fraction] 31.1 % Low 42.0-52.0 [facility] Comment on above: Performed By: #### C R GLU, CR COOX, CR ICA, CR BGA, CR LYTES, LACT ####[facility] PATHOLOGY [id number] [place] [address], Hemoglobin (Bld) [Mass/Vol] 10.1 g/dL Low 14.0-18.0 The [facility] Comment on above: Performed By: #### C R GLU, CR COOX, CR ICA, CR BGA, CR LYTES, LACT ####[facility] PATHOLOGY [id number] [place] [address], OXYHEMOGLOBIN 96.1 % Normal 95.0-100.0 The [facility] Comment on above: Performed By: #### C R GLU, CR COOX, CR ICA, CR BGA, CR LYTES, LACT ####[facility] PATHOLOGY [id number] [place] [address], COMPLETE BLOOD COUNTon 02-19 Erythrocyte distribution width (RBC) [Ratio] 14.9 % High 11.5-14.5 The [facility] Comment on above: Performed By: #### C BC ####[facility] PATHOLOGY [id number] [place] [address], Hematocrit (Bld) [Volume fraction] 31.8 % Low 41.0-53.0 The [facility] Comment on above: Performed By: #### C BC ####[facility] PATHOLOGY [id number] [place], Hemoglobin (Bld) [Mass/Vol] 10.7 g/dL Low 13.9-16.3 The [facility] Comment on above: Performed By: #### C BC ####[facility] PATHOLOGY [id number] [place], MCH (RBC) [Entitic mass] 31.7 pg Normal 26.0-34.0 The [facility] Comment on above: Performed By: #### C BC ####[facility] PATHOLOGY [id number] [place], MCHC (RBC) [Mass/Vol] 33.8 g/dL Normal 32.0-35.9 The [facility] Comment on above: Performed By: #### C BC ####[facility] PATHOLOGY [id number] [place] [address], MCV (RBC) [Entitic vol] 94 fL Normal 80-100 The [facility] Comment on above: Performed By: #### C BC ####[facility] PATHOLOGY [id number] [place], [place], Platelet mean volume (Bld) [Entitic vol] 9.6 fL Normal 7.5-11.2 The [facility] Comment on above: Performed By: #### C BC ####[facility] PATHOLOGY [id number] [place], Platelets (Bld) [#/Vol] 235 10*3/uL Normal 150-400 The [facility] Comment on above: Performed By: #### C BC ####[facility] PATHOLOGY [id number] [place], RBC (Bld) [#/Vol] 3.38 10*6/uL Low 4.50-5.90 The [facility] Comment on above: Performed By: #### C BC ####[facility] PATHOLOGY [id number] [place], WBC (Bld) [#/Vol] 6.3 10*3/uL Normal 4.5-11.5 [facility] Comment on above: Performed By: #### C BC ####[facility] PATHOLOGY [id number] [place], Care Plan Noteon 02-19-2021 Stereo Equipment Repairer Authentication Interface Message Text Normal [facility] Consultson 02-19-2021 Stereo Equipment Repairer Authentication Interface Message Text PHYSICAL THERAPY and OCCUPATIONAL THERAPY Attempt at Tx this AM is unsuccessful as Patient is off floor in OR with Orthopedics for definitive fixation of (L) ankle. Will f/u Maribell Ocasio, PT, MPT (B) [phone] Rosa Vcik, OTR/L Normal [facility] ELECTROLYTESon 02-19-2021 Chloride [Moles/Vol] 109 mmol/L Normal 97-111 [facility] Comment on above: Performed By: #### C R GLU, CR COOX, CR ICA, CR BGA, CR LYTES, LACT ####[facility] PATHOLOGY [id number] [place], Potassium [Moles/Vol] 3.8 mmol/L Normal 3.3-5.3 [facility] Comment on above: Performed By: #### C R GLU, CR COOX, CR ICA, CR BGA, CR LYTES, LACT ####[facility] PATHOLOGY [id number] [place], Sodium [Moles/Vol] 134 mmol/L Low 135-148 [facility] Comment on above: Performed By: #### C R GLU, CR COOX, CR ICA, CR BGA, CR LYTES, LACT ####[facility] PATHOLOGY [id number] [place], GLUCOSE, WHOLE BLOODon 02-19 CR GLU 101 mg/dL High 68-98 [facility] Comment on above: Performed By: #### C R GLU, CR COOX, CR ICA, CR BGA, CR LYTES, LACT ####[facility] PATHOLOGY [id number] [place], H AND Martin 02-19-2021 Stereo Equipment Repairer Authentication Interface Message Text Normal [facility] LACTIC ACIDon 02-19-2021 CR LACT 0.7 mmol/L Normal 0.5-2.0 [facility] Comment on above: Performed By: #### C R GLU, CR COOX, CR ICA, CR BGA, CR LYTES, LACT ####[facility] PATHOLOGY [id number] [place], MAGNESIUMon 02-19-2021 Magnesium [Mass/Vol] 2.0 mg/dL Normal 1.6-2.8 [facility] Comment on above: Performed By: #### Rajiv Roque PHOS ####[facility] PATHOLOGY [id number] [place], Magnesium [Mass/Vol] 2.0 mg/dL Normal 1.6-2.8 [facility] Comment on above: Performed By: #### Rajiv Roque, CH8 ####[facility] PATHOLOGY [id number] [place] [address], OP Noteon 02-19-2021 Stereo Equipment Repairer Authentication Interface Message Text Normal [facility] PARTIAL THROMBOPLASTIN TIMEo n 02-19-2021 aPTT Coag (Bld) [Time] 34 s Normal 25-37 Th [facility] Comment on above: Performed By: #### A PTT, PT ####[facility] PATHOLOGY [id number] [place], PHOSPHORUSon 02-19-2021 Phosphate [Mass/Vol] 3.8 mg/dL Normal 2.3-4.2 [facility] Comment on above: Performed By: #### Rajiv Roque PHOS ####[facility] PATHOLOGY [id number] [place] [address], PROTHROMBIN TIME AND INRon 0 02-19-2021 INR Coag (PPP) [Relative time] 1.09 {INR} Normal 0.90-1.10 [facility] Comment on above: Performed By: #### A PTT, PT ####[facility] PATHOLOGY [id number] [place] [address], PT Coag (PPP) [Time] 12.3 s Normal 9.7-12.9 [facility] Comment on above: Performed By: #### A PTT, PT ####S PATHOLOGY [id number] [place], Progress Noteson 02-19-2021 Stereo Equipment Repairer Authentication Interface Message Text Normal [facility] Stereo Equipment Repairer Authentication Interface Message Text Peripheral nerve block has been completed at bedside by anesthesia; will maintain cardiac monitoring for at least 30 minutes. Normal [facility] Stereo Equipment Repairer Authentication Interface Message Text OK for patient to get peripheral nerve block per Dr. Santos. Normal [facility] Stereo Equipment Repairer Authentication Interface Message Text Normal [facility] TYPE AND SCREENon 02-19-2021 ABO and Rh group Nom (Bld) Blood group A Rh(D) positive Normal [facility] Comment on above: Performed By: #### T S ####[facility] [id number] [place], ABSC INT Negative Normal [facility] Comment on above: Performed By: #### T S ####[facility] [id number] [place], [place] GUIDANCE NEEDLE PLACEMENT on 02-19-2021 US GUIDANCE NEEDLE PLACEMENT Normal [facility] XR ANKLE LEFTon 02-19-2021 XR ANKLE LEFT Normal [facility] Anesthesia Preprocedure Eval uationon 02-18-2021 Stereo Equipment Repairer Authentication Interface Message Text Normal The [facility] Care Plan Noteon 02-18-2021 Stereo Equipment Repairer Authentication Interface Message Text Normal [facility] Progress Noteson 02-18-2021 Stereo Equipment Repairer Authentication Interface Message Text SW is aware pt to go to the OR tomorrow: 02/19/2021. Pt will need post-op PT/OT for SNF placement and precert. [facility] has accepted and following for placement. They were made aware of the above TRINIDAD Malcolm, SPINNING SUPERVISOR [phone] Normal The [facility] Stereo Equipment Repairer Authentication Interface Message Text Normal [facility] Stereo Equipment Repairer Authentication Interface Message Text Normal [facility] Stereo Equipment Repairer Authentication Interface Message Text Normal The [facility] BASIC METABOLIC PANELon - Anion gap [Moles/Vol] 12 mmol/L Normal 5-13 The [facility] Comment on above: Performed By: #### C H8, DIG, MG ####[facility] [id number] [place], Calcium [Mass/Vol] 8.9 mg/dL Normal 8.4-10.4 The [facility] Comment on above: Performed By: #### C H8, DIG, MG ####[facility] [id number] [place], Chloride [Moles/Vol] 106 mmol/L Normal 97-111 The [facility] Comment on above: Performed By: #### C H8, DIG, MG ####[facility]Y [id number] [place], CO2 [Moles/Vol] 22 mmol/L Normal 21-30 The [facility] Comment on above: Performed By: #### C H8, DIG, MG ####[facility]Y [id number] [place], Creatinine [Mass/Vol] 1.17 mg/dL Normal 0.80-1.30 The [facility] Comment on above: Performed By: #### Austyn HSajan, DIG, MG ####[facility]Y [id number] [place], ESTIMATED GFR (CKD-EPI) 61 mL/min/1.73sqm Normal >=60 The [facility] Comment on above: Performed By: #### C H8, DIG, MG ####[facility]Y [id number] [place], Glucose [Mass/Vol] 104 mg/dL Normal 80-116 The [facility] Comment on above: Performed By: #### C H8, DIG, MG ####[facility]Y [id number] [place], Potassium [Moles/Vol] 4.4 mmol/L Normal 3.3-5.3 The [facility] Comment on above: Performed By: #### C H8, DIG, MG ####[facility]Y [id number] [place], Sodium [Moles/Vol] 136 mmol/L Normal 135-148 The [facility] Comment on above: Performed By: #### C H8, DIG, MG ####S PATHOLOGY [id number] [place], Urea nitrogen [Mass/Vol] 33 mg/dL High 8-22 The [facility] Comment on above: Performed By: #### C H8, DIG, MG ####S PATHOLOGY [id number] [place], COMPLETE BLOOD COUNTon 02-17 Erythrocyte distribution width (RBC) [Ratio] 14.6 % High 11.5-14.5 The [facility] Comment on above: Performed By: #### C BC ####[facility] PATHOLOGY [id number] [place], Hematocrit (Bld) [Volume fraction] 30.4 % Low 41.0-53.0 [facility] Comment on above: Performed By: #### C BC ####[facility] PATHOLOGY [id number] [place], Hemoglobin (Bld) [Mass/Vol] 10.4 g/dL Low 13.9-16.3 The [facility] Comment on above: Performed By: #### C BC ####[facility] PATHOLOGY [id number] [place], MCH (RBC) [Entitic mass] 32.4 pg Normal 26.0-34.0 The [facility] Comment on above: Performed By: #### C BC ####S PATHOLOGY [id number] [place], MCHC (RBC) [Mass/Vol] 34.2 g/dL Normal 32.0-35.9 The [facility] Comment on above: Performed By: #### C BC ####S PATHOLOGY [id number] [place], MCV (RBC) [Entitic vol] 95 fL Normal 80-100 The [facility] Comment on above: Performed By: #### C BC ####S PATHOLOGY [id number] [place], Platelet mean volume (Bld) [Entitic vol] 10.2 fL Normal 7.5-11.2 The [facility] Comment on above: Performed By: #### C BC ####S PATHOLOGY [id number] [place], Platelets (Bld) [#/Vol] 207 10*3/uL Normal 150-400 The [facility] Comment on above: Performed By: #### C BC ####S PATHOLOGY [id number] [place], RBC (Bld) [#/Vol] 3.20 10*6/uL Low 4.50-5.90 The [facility] Comment on above: Performed By: #### C BC ####[facility] PATHOLOGY [id number] [place], WBC (Bld) [#/Vol] 9.1 10*3/uL Normal 4.5-11.5 The [facility] Comment on above: Performed By: #### C BC ####[facility] PATHOLOGY [id number] [place], Care Plan Noteon 02-17-2021 Stereo Equipment Repairer Authentication Interface Message Text Normal [facility] Consultson 02-17-2021 Stereo Equipment Repairer Authentication Interface Message Text Normal The [facility] Stereo Equipment Repairer Authentication Interface Message Text Normal [facility] DIGOXINon 02-17-2021 DIG 0.91 ng/mL Normal 0.80-2.00 The [facility] Comment on above: Performed By: #### Austyn H8, DIG, MG ####S PATHOLOGY [id number] [place], MAGNESIUMon 02-17-2021 Magnesium [Mass/Vol] 2.0 mg/dL Normal 1.6-2.8 The [facility] Comment on above: Performed By: #### Austyn H8, DIG, MG ####[facility] [id number] [place], Progress Noteson 02-17-2021 Stereo Equipment Repairer Authentication Interface Message Text Normal The [facility] Care Plan Noteon 02-16-2021 Stereo Equipment Repairer Authentication Interface Message Text Normal [facility] Progress Noteson 02-16-2021 Stereo Equipment Repairer Authentication Interface Message Text Normal [facility] 1:1 Interactionon 02-15-2021 Stereo Equipment Repairer Authentication Interface Message Text Normal [facility] BASIC METABOLIC PANELon 01-29 Anion gap [Moles/Vol] 11 mmol/L Normal 5-13 [facility] Comment on above: Performed By: #### Rajiv Roque, ALESHA8 ####[facility] [id number] [place], Calcium [Mass/Vol] 8.8 mg/dL Normal 8.4-10.4 [facility] Comment on above: Performed By: #### Rajvi Roque, ALESHA8 ####S PATHOLOGY [id number] [place], Chloride [Moles/Vol] 108 mmol/L Normal 97-111 [facility] Comment on above: Performed By: #### Rajiv Roque, ALESHA8 ####S PATHOLOGY [id number] [place], CO2 [Moles/Vol] 23 mmol/L Normal 21-30 [facility] Comment on above: Performed By: #### Rajiv Roque, ALESHA8 ####[facility] [id number] [place], Creatinine [Mass/Vol] 1.06 mg/dL Normal 0.80-1.30 [facility] Comment on above: Performed By: #### Rajiv Roque, ALESHA8 ####[facility] [id number] [place], ESTIMATED GFR (CKD-EPI) 69 mL/min/1.73sqm Normal >=60 [facility] Comment on above: Performed By: #### Rajiv Roque, CH8 ####[facility] [id number] [place], Glucose [Mass/Vol] 110 mg/dL Normal 80-116 The [facility] Comment on above: Performed By: #### Rajiv Roque, CH8 ####[facility] [id number] [place], Potassium [Moles/Vol] 4.3 mmol/L Normal 3.3-5.3 [facility] Comment on above: Performed By: #### Rajiv Roque, CH8 ####S PATHOLOGY [id number] [place], Sodium [Moles/Vol] 138 mmol/L Normal 135-148 The [facility] Comment on above: Performed By: #### Rajiv Roque, CH8 ####S PATHOLOGY [id number] [place], Urea nitrogen [Mass/Vol] 34 mg/dL High 8-22 The [facility] Comment on above: Performed By: #### Rajiv Roque, ALESHA8 ####[facility] PATHOLOGY [id number] [place], COMPLETE BLOOD COUNTon 02-15 Erythrocyte distribution width (RBC) [Ratio] 14.8 % High 11.5-14.5 The [facility] Comment on above: Performed By: #### C BC ####[facility] PATHOLOGY [id number] [place], Hematocrit (Bld) [Volume fraction] 30.1 % Low 41.0-53.0 The [facility] Comment on above: Performed By: #### C BC ####[facility] PATHOLOGY [id number] [place], Hemoglobin (Bld) [Mass/Vol] 10.1 g/dL Low 13.9-16.3 The [facility] Comment on above: Performed By: #### C BC ####[facility] PATHOLOGY [id number] [place], MCH (RBC) [Entitic mass] 31.3 pg Normal 26.0-34.0 The [facility] Comment on above: Performed By: #### C BC ####[facility] PATHOLOGY [id number] [place], MCHC (RBC) [Mass/Vol] 33.5 g/dL Normal 32.0-35.9 The [facility] Comment on above: Performed By: #### C BC ####S PATHOLOGY [id number] [place], MCV (RBC) [Entitic vol] 93 fL Normal 80-100 The [facility] Comment on above: Performed By: #### C BC ####S PATHOLOGY [id number] [place], Platelet mean volume (Bld) [Entitic vol] 10.2 fL Normal 7.5-11.2 [facility] Comment on above: Performed By: #### C BC ####[facility] [id number] [place], Platelets (Bld) [#/Vol] 172 10*3/uL Normal 150-400 [facility] Comment on above: Performed By: #### C BC ####S PATHOLOGY [id number] [place], RBC (Bld) [#/Vol] 3.23 10*6/uL Low 4.50-5.90 [facility] Comment on above: Performed By: #### C BC ####S PATHOLOGY [id number] [place], WBC (Bld) [#/Vol] 9.1 10*3/uL Normal 4.5-11.5 [facility] Comment on above: Performed By: #### C BC ####[facility] PATHOLOGY [id number] [place], Care Plan Noteon 02-15-2021 Stereo Equipment Repairer Authentication Interface Message Text Normal [facility] Consultson 02-15-2021 Stereo Equipment Repairer Authentication Interface Message Text Normal [facility] Stereo Equipment Repairer Authentication Interface Message Text Normal [facility] MAGNESIUMon 02-15-2021 Magnesium [Mass/Vol] 2.0 mg/dL Normal 1.6-2.8 [facility] Comment on above: Performed By: #### Rajiv G, CH8 ####S PATHOLOGY [id number] [place], Progress Noteson 02-15-2021 Stereo Equipment Repairer Authentication Interface Message Text Labs and vitals stable, known current state of variable aflutter block causing HR variability from 70-140s. No acute issues since ICU transfer. Normal The [facility] Stereo Equipment Repairer Authentication Interface Message Text Normal The [facility] Stereo Equipment Repairer Authentication Interface Message Text Normal [facility] 1:1 Interactionon 02-14-2021 Stereo Equipment Repairer Authentication Interface Message Text Normal [facility] BASIC METABOLIC PANELon 01-29 Anion gap [Moles/Vol] 11 mmol/L Normal 5-13 The [facility] Comment on above: Performed By: #### Rajiv Roque, CH8 ####S PATHOLOGY [id number] [place], Calcium [Mass/Vol] 8.6 mg/dL Normal 8.4-10.4 [facility] Comment on above: Performed By: #### Rajiv Roque, CH8 ####S PATHOLOGY [id number] [place], Chloride [Moles/Vol] 110 mmol/L Normal 97-111 [facility] Comment on above: Performed By: #### Rajiv Roque, ALESHA8 ####[facility] PATHOLOGY [id number] [place], CO2 [Moles/Vol] 24 mmol/L Normal 21-30 [facility] Comment on above: Performed By: #### Rajiv Roque, ALESHA8 ####[facility] PATHOLOGY [id number] [place], Creatinine [Mass/Vol] 0.92 mg/dL Normal 0.80-1.30 The [facility] Comment on above: Performed By: ###Sabrina Roque, CH8 ####[facility] PATHOLOGY [id number] [place], ESTIMATED GFR (CKD-EPI) 82 mL/min/1.73sqm Normal >=60 The [facility] Comment on above: Performed By: #### Rajiv Roque, CH8 ####S PATHOLOGY [id number] [place], Glucose [Mass/Vol] 116 mg/dL Normal 80-116 The [facility] Comment on above: Performed By: #### Rajiv Roque, CH8 ####S PATHOLOGY [id number] [place], Potassium [Moles/Vol] 4.3 mmol/L Normal 3.3-5.3 [facility] Comment on above: Performed By: #### Rajiv Roque, CH8 ####[facility] PATHOLOGY [id number] [place], Sodium [Moles/Vol] 141 mmol/L Normal 135-148 [facility] Comment on above: Performed By: #### Rajiv Roque, CH8 ####[facility] PATHOLOGY [id number] [place], Urea nitrogen [Mass/Vol] 36 mg/dL High 8-22 [facility] Comment on above: Performed By: #### Rajiv Roque, CH8 ####[facility] PATHOLOGY [id number] [place], COMPLETE BLOOD COUNTon 02-14 Erythrocyte distribution width (RBC) [Ratio] 14.8 % High 11.5-14.5 [facility] Comment on above: Performed By: #### C BC ####[facility] PATHOLOGY [id number] [place], Hematocrit (Bld) [Volume fraction] 29.5 % Low 41.0-53.0 [facility] Comment on above: Performed By: #### C BC ####[facility] PATHOLOGY [id number] [place], Hemoglobin (Bld) [Mass/Vol] 9.9 g/dL Low 13.9-16.3 [facility] Comment on above: Performed By: #### C BC ####[facility] PATHOLOGY [id number] [place], MCH (RBC) [Entitic mass] 31.9 pg Normal 26.0-34.0 [facility] Comment on above: Performed By: #### C BC ####[facility] PATHOLOGY [id number] [place], MCHC (RBC) [Mass/Vol] 33.5 g/dL Normal 32.0-35.9 [facility] Comment on above: Performed By: #### C BC ####[facility] PATHOLOGY [id number] [place], MCV (RBC) [Entitic vol] 95 fL Normal 80-100 [facility] Comment on above: Performed By: #### C BC ####S PATHOLOGY [id number] [place], Platelet mean volume (Bld) [Entitic vol] 10.8 fL Normal 7.5-11.2 [facility] Comment on above: Performed By: #### C BC ####S PATHOLOGY [id number] [place], Platelets (Bld) [#/Vol] 131 10*3/uL Low 150-400 [facility] Comment on above: Performed By: #### C BC ####[facility] PATHOLOGY [id number] [place], RBC (Bld) [#/Vol] 3.09 10*6/uL Low 4.50-5.90 [facility] Comment on above: Performed By: #### C BC ####[facility] PATHOLOGY [id number] [place], WBC (Bld) [#/Vol] 6.8 10*3/uL Normal 4.5-11.5 [facility] Comment on above: Performed By: #### C BC ####[facility] PATHOLOGY [id number] [place], Care Plan Noteon 02-14-2021 Stereo Equipment Repairer Authentication Interface Message Text Normal [facility] Stereo Equipment Repairer Authentication Interface Message Text Normal [facility] Consultson 02-14-2021 Stereo Equipment Repairer Authentication Interface Message Text Normal [facility] Stereo Equipment Repairer Authentication Interface Message Text Normal [facility] Stereo Equipment Repairer Authentication Interface Message Text Normal [facility] MAGNESIUMon 02-14-2021 Magnesium [Mass/Vol] 2.5 mg/dL Normal 1.6-2.8 [facility] Comment on above: Performed By: #### Rajiv Roque CH8 ####[facility] PATHOLOGY [id number] [place], Progress Noteson 02-14-2021 Stereo Equipment Repairer Authentication Interface Message Text Normal [facility] Stereo Equipment Repairer Authentication Interface Message Text Normal [facility] Stereo Equipment Repairer Authentication Interface Message Text Normal [facility] BASIC METABOLIC PANELon 01-29 Anion gap [Moles/Vol] 9 mmol/L Normal 5-13 The [facility] Comment on above: Performed By: #### C H8, MG ####[facility] [id number] [place], Calcium [Mass/Vol] 8.9 mg/dL Normal 8.4-10.4 The [facility] Comment on above: Performed By: #### C H8, MG ####[facility] [id number] [place], Chloride [Moles/Vol] 108 mmol/L Normal 97-111 The [facility] Comment on above: Performed By: #### C H8, MG ####[facility] [id number] [place], CO2 [Moles/Vol] 27 mmol/L Normal 21-30 The [facility] Comment on above: Performed By: #### C H8, MG ####[facility] [id number] [place], Creatinine [Mass/Vol] 0.89 mg/dL Normal 0.80-1.30 The [facility] Comment on above: Performed By: #### C H8, MG ####[facility] [id number] [place], ESTIMATED GFR (CKD-EPI) 84 mL/min/1.73sqm Normal >=60 The [facility] Comment on above: Performed By: #### C H8, MG ####[facility] [id number] [place], Glucose [Mass/Vol] 127 mg/dL High 80-116 The [facility] Comment on above: Performed By: #### C H8, MG ####[facility] [id number] [place], [place], Potassium [Moles/Vol] 3.9 mmol/L Normal 3.3-5.3 The [facility] Comment on above: Performed By: #### C H8, MG ####[facility] [id number] [place], Sodium [Moles/Vol] 140 mmol/L Normal 135-148 The [facility] Comment on above: Performed By: #### C H8, MG ####S PATHOLOGY [id number] [place], Urea nitrogen [Mass/Vol] 29 mg/dL High 8-22 The [facility] Comment on above: Performed By: #### C H8, MG ####[facility] PATHOLOGY [id number] [place], COMPLETE BLOOD COUNTon 02-13 Erythrocyte distribution width (RBC) [Ratio] 14.5 % Normal 11.5-14.5 The [facility] Comment on above: Performed By: #### C BC ####[facility] PATHOLOGY [id number] [place], Hematocrit (Bld) [Volume fraction] 29.0 % Low 41.0-53.0 The [facility] Comment on above: Performed By: #### C BC ####[facility] PATHOLOGY [id number] [place], Hemoglobin (Bld) [Mass/Vol] 9.8 g/dL Low 13.9-16.3 The [facility] Comment on above: Performed By: #### C BC ####[facility] PATHOLOGY [id number] [place], MCH (RBC) [Entitic mass] 31.6 pg Normal 26.0-34.0 The [facility] Comment on above: Performed By: #### C BC ####S PATHOLOGY [id number] [place], MCHC (RBC) [Mass/Vol] 33.9 g/dL Normal 32.0-35.9 The [facility] Comment on above: Performed By: #### C BC ####S PATHOLOGY [id number] [place], MCV (RBC) [Entitic vol] 93 fL Normal 80-100 The [facility] Comment on above: Performed By: #### C BC ####S PATHOLOGY [id number] [place], Platelet mean volume (Bld) [Entitic vol] 10.8 fL Normal 7.5-11.2 [facility] Comment on above: Performed By: #### C BC ####S PATHOLOGY [id number] [place], Platelets (Bld) [#/Vol] 132 10*3/uL Low 150-400 The [facility] Comment on above: Performed By: #### C BC ####S PATHOLOGY [id number] [place], RBC (Bld) [#/Vol] 3.11 10*6/uL Low 4.50-5.90 The [facility] Comment on above: Performed By: #### C BC ####[facility] PATHOLOGY [id number] [place], WBC (Bld) [#/Vol] 7.1 10*3/uL Normal 4.5-11.5 The [facility] Comment on above: Performed By: #### C BC ####[facility] PATHOLOGY [id number] [place], Consultson 02-13-2021 Stereo Equipment Repairer Authentication Interface Message Text Normal [facility] Stereo Equipment Repairer Authentication Interface Message Text Normal [facility] MAGNESIUMon 02-13-2021 Magnesium [Mass/Vol] 1.9 mg/dL Normal 1.6-2.8 The [facility] Comment on above: Performed By: #### C H8, MG ####[facility] PATHOLOGY [id number] [place], Progress Noteson 02-13-2021 Stereo Equipment Repairer Authentication Interface Message Text Normal [facility] Stereo Equipment Repairer Authentication Interface Message Text Normal [facility] 1:1 Interactionon 02-12-2021 Stereo Equipment Repairer Authentication Interface Message Text Normal [facility] BASIC METABOLIC PANELon 01-29 Anion gap [Moles/Vol] 10 mmol/L Normal 5-13 The [facility] Comment on above: Performed By: #### C H8, MG, DIG ####S PATHOLOGY [id number] [place], Calcium [Mass/Vol] 8.7 mg/dL Normal 8.4-10.4 The [facility] Comment on above: Performed By: #### C H8, MG, DIG ####[facility] [id number] [place], Chloride [Moles/Vol] 108 mmol/L Normal 97-111 The [facility] Comment on above: Performed By: #### C H8, MG, DIG ####[facility] [id number] [place], CO2 [Moles/Vol] 26 mmol/L Normal 21-30 The [facility] Comment on above: Performed By: #### C H8, MG, DIG ####[facility] [id number] [place], Creatinine [Mass/Vol] 1.10 mg/dL Normal 0.80-1.30 The [facility] Comment on above: Performed By: #### C H8, MG, DIG ####[facility] [id number] [place], ESTIMATED GFR (CKD-EPI) 66 mL/min/1.73sqm Normal >=60 The [facility] Comment on above: Performed By: #### C HSajan, MG, DIG ####[facility] [id number] [place], Glucose [Mass/Vol] 116 mg/dL Normal 80-116 The [facility] Comment on above: Performed By: #### C H8, MG, DIG ####[facility] [id number] [place], Potassium [Moles/Vol] 4.2 mmol/L Normal 3.3-5.3 The [facility] Comment on above: Performed By: #### C H8, MG, DIG ####[facility] [id number] [place], Sodium [Moles/Vol] 140 mmol/L Normal 135-148 The [facility] Comment on above: Performed By: #### C H8, MG, DIG ####[facility] [id number] [place], Urea nitrogen [Mass/Vol] 33 mg/dL High 8-22 The [facility] Comment on above: Performed By: #### C H8, MG, DIG ####[facility] PATHOLOGY [id number] [place], COMPLETE BLOOD COUNTon 02-12 Erythrocyte distribution width (RBC) [Ratio] 14.5 % Normal 11.5-14.5 The [facility] Comment on above: Performed By: #### C BC ####[facility] PATHOLOGY [id number] [place] [address], Hematocrit (Bld) [Volume fraction] 27.5 % Low 41.0-53.0 The [facility] Comment on above: Performed By: #### C BC ####[facility] PATHOLOGY [id number] [place] [address], Hemoglobin (Bld) [Mass/Vol] 9.2 g/dL Low 13.9-16.3 The [facility] Comment on above: Performed By: #### C BC ####[facility] PATHOLOGY [id number] [place] [address], MCH (RBC) [Entitic mass] 31.1 pg Normal 26.0-34.0 The [facility] Comment on above: Performed By: #### C BC ####[facility] PATHOLOGY [id number] [place] [address], MCHC (RBC) [Mass/Vol] 33.4 g/dL Normal 32.0-35.9 The [facility] Comment on above: Performed By: #### C BC ####[facility] PATHOLOGY [id number] [place] [address], MCV (RBC) [Entitic vol] 93 fL Normal 80-100 The [facility] Comment on above: Performed By: #### C BC ####[facility] PATHOLOGY [id number] [place], Platelet mean volume (Bld) [Entitic vol] 10.8 fL Normal 7.5-11.2 The [facility] Comment on above: Performed By: #### C BC ####[facility] PATHOLOGY [id number] [place] [address], Platelets (Bld) [#/Vol] 109 10*3/uL Low 150-400 The [facility] Comment on above: Performed By: #### C BC ####[facility] [id number] [place], RBC (Bld) [#/Vol] 2.95 10*6/uL Low 4.50-5.90 The [facility] Comment on above: Performed By: #### C BC ####[facility] PATH[facility] [id number] [place], WBC (Bld) [#/Vol] 7.5 10*3/uL Normal 4.5-11.5 The [facility] Comment on above: Performed By: #### C BC ####[facility] [id number] [place], Care Plan Noteon 02-12-2021 Stereo Equipment Repairer Authentication Interface Message Text Normal [facility] Consultson 02-12-2021 Stereo Equipment Repairer Authentication Interface Message Text Normal [facility] Stereo Equipment Repairer Authentication Interface Message Text Normal [facility] Stereo Equipment Repairer Authentication Interface Message Text Normal [facility] DIGOXINon 02-12-2021 DIG 0.92 ng/mL Normal 0.80-2.00 The [facility] Comment on above: Performed By: #### Austyn H8, MG, DIG ####[facility] PATH[facility] [id number] [place], [place] MODIFIED BARIUM SWALLOWon 02-12-2021 [place] MODIFIED BARIUM SWALLOW Normal [facility] MAGNESIUMon 02-12-2021 Magnesium [Mass/Vol] 2.0 mg/dL Normal 1.6-2.8 The [facility] Comment on above: Performed By: #### C H8, MG, DIG ####[facility] PATH[facility] [id number] [place], Progress Noteson 02-12-2021 Stereo Equipment Repairer Authentication Interface Message Text Normal [facility] Stereo Equipment Repairer Authentication Interface Message Text Normal [facility] BASIC METABOLIC PANELon 01-29 Anion gap [Moles/Vol] 10 mmol/L Normal 5-13 The [facility] Comment on above: Performed By: #### C H8, MG ####[facility] PATH[facility] [id number] [place], Calcium [Mass/Vol] 8.6 mg/dL Normal 8.4-10.4 [facility] Comment on above: Performed By: #### Austyn Saleh8, MG ####[facility] [id number] [place], Chloride [Moles/Vol] 106 mmol/L Normal 97-111 The [facility] Comment on above: Performed By: #### Austyn Tamez, MG ####[facility] HSBDAWNCXM0117 [place], CO2 [Moles/Vol] 26 mmol/L Normal 21-30 The [facility] Comment on above: Performed By: #### Austyn Tamez, MG ####[facility] PATH[facility] [id number] [place], Creatinine [Mass/Vol] 1.01 mg/dL Normal 0.80-1.30 The [facility] Comment on above: Performed By: #### Austyn Tamez, MG ####[facility] [id number] [place], ESTIMATED GFR (CKD-EPI) 73 mL/min/1.73sqm Normal >=60 The [facility] Comment on above: Performed By: #### Austyn Tamez, MG ####[facility] [id number] [place], Glucose [Mass/Vol] 121 mg/dL High 80-116 The [facility] Comment on above: Performed By: #### Austyn H8, MG ####[facility] PATH[facility] [id number] [place], Potassium [Moles/Vol] 4.0 mmol/L Normal 3.3-5.3 The [facility] Comment on above: Performed By: #### Austyn H8, MG ####[facility] PATH[facility] [id number] [place], Sodium [Moles/Vol] 138 mmol/L Normal 135-148 The [facility] Comment on above: Performed By: #### Austyn H8, MG ####[facility] PATH[facility] [id number] [place], Urea nitrogen [Mass/Vol] 22 mg/dL Normal 8-22 [facility] Comment on above: Performed By: #### C H8, MG ####[facility] PATHOLOGY [id number] [place], COMPLETE BLOOD COUNTon 02-11 Erythrocyte distribution width (RBC) [Ratio] 14.1 % Normal 11.5-14.5 [facility] Comment on above: Performed By: #### C BC ####[facility] PATHOLOGY [id number] [place], Hematocrit (Bld) [Volume fraction] 29.6 % Low 41.0-53.0 [facility] Comment on above: Performed By: #### C BC ####[facility] PATHOLOGY [id number] [place], Hemoglobin (Bld) [Mass/Vol] 10.2 g/dL Low 13.9-16.3 [facility] Comment on above: Performed By: #### C BC ####[facility] PATHOLOGY [id number] [place], MCH (RBC) [Entitic mass] 32.3 pg Normal 26.0-34.0 The [facility] Comment on above: Performed By: #### C BC ####[facility] PATHOLOGY [id number] [place], MCHC (RBC) [Mass/Vol] 34.4 g/dL Normal 32.0-35.9 [facility] Comment on above: Performed By: #### C BC ####[facility] PATHOLOGY [id number] [place], MCV (RBC) [Entitic vol] 94 fL Normal 80-100 The [facility] Comment on above: Performed By: #### C BC ####[facility] PATHOLOGY [id number] [place], Platelet mean volume (Bld) [Entitic vol] 10.3 fL Normal 7.5-11.2 [facility] Comment on above: Performed By: #### C BC ####[facility] [id number] [place], Platelets (Bld) [#/Vol] 101 10*3/uL Low 150-400 [facility] Comment on above: Performed By: #### C BC ####S PATHOLOGY [id number] [place], RBC (Bld) [#/Vol] 3.15 10*6/uL Low 4.50-5.90 [facility] Comment on above: Performed By: #### C BC ####S PATHOLOGY [id number] [place], WBC (Bld) [#/Vol] 8.2 10*3/uL Normal 4.5-11.5 [facility] Comment on above: Performed By: #### C BC ####[facility] PATHOLOGY [id number] [place], Care Plan Noteon 02-11-2021 Stereo Equipment Repairer Authentication Interface Message Text Normal [facility] Stereo Equipment Repairer Authentication Interface Message Text Normal [facility] Consultson 02-11-2021 Stereo Equipment Repairer Authentication Interface Message Text Normal [facility] DIGOXINon 02-11-2021 DIG 1.91 ng/mL Normal 0.80-2.00 [facility] Comment on above: Performed By: #### D IG ####S PATHOLOGY [id number] [place], MAGNESIUMon 02-11-2021 Magnesium [Mass/Vol] 2.0 mg/dL Normal 1.6-2.8 [facility] Comment on above: Performed By: #### C H8, MG ####S PATHOLOGY [id number] [place], Progress Noteson 02-11-2021 Stereo Equipment Repairer Authentication Interface Message Text Normal The [facility] Stereo Equipment Repairer Authentication Interface Message Text Normal The [facility] Stereo Equipment Repairer Authentication Interface Message Text Normal [facility] Stereo Equipment Repairer Authentication Interface Message Text Normal [facility] Stereo Equipment Repairer Authentication Interface Message Text Normal The [facility] 1:1 Interactionon 02-10-2021 Stereo Equipment Repairer Authentication Interface Message Text Normal The [facility] ANTI FXA-LMW HEPARINon 02-10 ANTI FXA-LMW HEPARIN ASSAY 1.35 IU/mL Normal [facility] Comment on above: Order Comment: The r ecommended therapeutic range for treatment of thrombosis with Low Molecular Weight Heparin is 0.5 - 1.0 IU/mLThe recommended range for VTE prophylaxis with Low Molecular Weight Heparin is 0.2 - 0.4 IU/mL. Performed By: #### A XL ####S PATHOLOGY [id number] [place] [address], BASIC METABOLIC PANELon 01-29 Anion gap [Moles/Vol] 9 mmol/L Normal 5-13 The [facility] Comment on above: Performed By: #### Austyn Tamez, MG ####S PATHOLOGY [id number] [place] [address], Calcium [Mass/Vol] 8.9 mg/dL Normal 8.4-10.4 [facility] Comment on above: Performed By: #### Austyn Tamez, MG ####[facility] PATHOLOGY [id number] [place] [address], Chloride [Moles/Vol] 110 mmol/L Normal 97-111 The [facility] Comment on above: Performed By: #### Austyn Tamez, MG ####[facility] PATHOLOGY [id number] [place] [address], CO2 [Moles/Vol] 26 mmol/L Normal 21-30 The [facility] Comment on above: Performed By: #### Austyn Tamez, MG ####S PATHOLOGY [id number] [place] [address], Creatinine [Mass/Vol] 1.10 mg/dL Normal 0.80-1.30 The [facility] Comment on above: Performed By: #### Austyn Saleh8, MG ####S PATHOLOGY [id number] [place] [address], ESTIMATED GFR (CKD-EPI) 66 mL/min/1.73sqm Normal >=60 The [facility] Comment on above: Performed By: #### Austyn Saleh8, MG ####S PATHOLOGY [id number] [place] [address], Glucose [Mass/Vol] 128 mg/dL High 80-116 The [facility] Comment on above: Performed By: #### Austyn H8, MG ####S PATHOLOGY [id number] [place], Potassium [Moles/Vol] 3.7 mmol/L Normal 3.3-5.3 The [facility] Comment on above: Performed By: #### Austyn H8, MG ####[facility] PATHOLOGY [id number] [place], Sodium [Moles/Vol] 141 mmol/L Normal 135-148 The [facility] Comment on above: Performed By: #### Austyn Saleh8, MG ####[facility] PATHOLOGY [id number] [place] [address], Urea nitrogen [Mass/Vol] 17 mg/dL Normal 8-22 The [facility] Comment on above: Performed By: #### Austyn Saleh8, MG ####[facility] PATHOLOGY [id number] [place] [address], COMPLETE BLOOD COUNTon 02-10 Erythrocyte distribution width (RBC) [Ratio] 14.0 % Normal 11.5-14.5 The [facility] Comment on above: Performed By: #### C BC ####[facility] PATHOLOGY [id number] [place], Hematocrit (Bld) [Volume fraction] 29.7 % Low 41.0-53.0 The [facility] Comment on above: Performed By: #### C BC ####[facility] PATHOLOGY [id number] [place], Hemoglobin (Bld) [Mass/Vol] 10.1 g/dL Low 13.9-16.3 The [facility] Comment on above: Performed By: #### C BC ####S PATHOLOGY [id number] [place] [address], MCH (RBC) [Entitic mass] 31.5 pg Normal 26.0-34.0 The [facility] Comment on above: Performed By: #### C BC ####S PATHOLOGY [id number] [place] [address], MCHC (RBC) [Mass/Vol] 34.0 g/dL Normal 32.0-35.9 [facility] Comment on above: Performed By: #### C BC ####S PATHOLOGY [id number] [place], MCV (RBC) [Entitic vol] 93 fL Normal 80-100 [facility] Comment on above: Performed By: #### C BC ####[facility] PATHOLOGY [id number] [place], Platelet mean volume (Bld) [Entitic vol] 10.6 fL Normal 7.5-11.2 [facility] Comment on above: Performed By: #### C BC ####S PATHOLOGY [id number] [place], Platelets (Bld) [#/Vol] 90 10*3/uL Low 150-400 [facility] Comment on above: Performed By: #### C BC ####[facility] PATHOLOGY [id number] [place], RBC (Bld) [#/Vol] 3.20 10*6/uL Low 4.50-5.90 [facility] Comment on above: Performed By: #### C BC ####[facility] PATHOLOGY [id number] [place], WBC (Bld) [#/Vol] 6.9 10*3/uL Normal 4.5-11.5 [facility] Comment on above: Performed By: #### C BC ####[facility] PATHOLOGY [id number] [place] [address], Care Plan Noteon 02-10-2021 Stereo Equipment Repairer Authentication Interface Message Text Normal [facility] Stereo Equipment Repairer Authentication Interface Message Text Normal [facility] Consultson 02-10-2021 Stereo Equipment Repairer Authentication Interface Message Text Normal [facility] ED US FOCUSED CARDIACon 01-29 ED US FOCUSED CARDIAC Normal [facility] MAGNESIUMon 02-10-2021 Magnesium [Mass/Vol] 1.7 mg/dL Normal 1.6-2.8 [facility] Comment on above: Performed By: #### Austyn Tamez, MG ####S PATHOLOGY [id number] [place], Progress Noteson 02-10-2021 Stereo Equipment Repairer Authentication Interface Message Text Normal [facility] Stereo Equipment Repairer Authentication Interface Message Text Normal [facility] Stereo Equipment Repairer Authentication Interface Message Text Normal [facility] Treatment Plan Noteon 2020 Stereo Equipment Repairer Authentication Interface Message Text Normal [facility] XR CHEST AP OR PA 1 VIEWon 0 02-10-2021 XR CHEST AP OR PA 1 VIEW Normal [facility] ANTI FXA-LMW HEPARINon 02-09 ANTI FXA-LMW HEPARIN ASSAY 0.41 IU/mL Normal [facility] Comment on above: Order Comment: The r ecommended therapeutic range for treatment of thrombosis with Low Molecular Weight Heparin is 0.5 - 1.0 IU/mLThe recommended range for VTE prophylaxis with Low Molecular Weight Heparin is 0.2 - 0.4 IU/mL. Performed By: #### A XL ####S PATHOLOGY [id number] [place], BASIC METABOLIC PANELon 01-29 Anion gap [Moles/Vol] 12 mmol/L Normal 5-13 The [facility] Comment on above: Performed By: #### Austyn Tamez, MG ####S PATHOLOGY [id number] [place], Calcium [Mass/Vol] 8.4 mg/dL Normal 8.4-10.4 The [facility] Comment on above: Performed By: #### Austyn Tamez, MG ####S PATHOLOGY [id number] [place], Chloride [Moles/Vol] 114 mmol/L High 97-111 The [facility] Comment on above: Performed By: #### Austyn Tamez, MG ####[facility] [id number] [place], CO2 [Moles/Vol] 22 mmol/L Normal 21-30 The [facility] Comment on above: Performed By: #### Austyn Tamez, MG ####S PATHOLOGY [id number] [place], Creatinine [Mass/Vol] 1.04 mg/dL Normal 0.80-1.30 The [facility] Comment on above: Performed By: #### Austyn Tamez, MG ####[facility] PATHOLOGY [id number] [place] [address], ESTIMATED GFR (CKD-EPI) 70 mL/min/1.73sqm Normal >=60 [facility] Comment on above: Performed By: #### Austyn Tamez, MG ####S PATHOLOGY [id number] [place] [address], Glucose [Mass/Vol] 103 mg/dL Normal 80-116 The [facility] Comment on above: Performed By: #### Austyn Tamez, MG ####S PATHOLOGY [id number] [place] [address], Potassium [Moles/Vol] 3.7 mmol/L Normal 3.3-5.3 The [facility] Comment on above: Performed By: #### Austyn Tamez, MG ####[facility] PATHOLOGY [id number] [place] [address], Sodium [Moles/Vol] 144 mmol/L Normal 135-148 The [facility] Comment on above: Performed By: #### Austyn Tamez, MG ####[facility] PATHOLOGY [id number] [place] [address], Urea nitrogen [Mass/Vol] 18 mg/dL Normal 8-22 The [facility] Comment on above: Performed By: ###Sabrina Tamez, MG ####S PATHOLOGY [id number] [place] [address], COMPLETE BLOOD COUNTon 02-09 Erythrocyte distribution width (RBC) [Ratio] 14.0 % Normal 11.5-14.5 The [facility] Comment on above: Performed By: #### Austyn FAJARDO ####S PATHOLOGY [id number] [place] [address], Hematocrit (Bld) [Volume fraction] 29.9 % Low 41.0-53.0 [facility] Comment on above: Performed By: #### Austyn FAJARDO ####S PATHOLOGY [id number] [place], Hemoglobin (Bld) [Mass/Vol] 10.1 g/dL Low 13.9-16.3 The [facility] Comment on above: Performed By: #### C BC ####[facility] PATHOLOGY [id number] [place], [place], MCH (RBC) [Entitic mass] 31.7 pg Normal 26.0-34.0 The [facility] Comment on above: Performed By: #### C BC ####[facility] PATHOLOGY [id number] [place], MCHC (RBC) [Mass/Vol] 33.7 g/dL Normal 32.0-35.9 The [facility] Comment on above: Performed By: #### C BC ####[facility] PATHOLOGY [id number] [place] [address], MCV (RBC) [Entitic vol] 94 fL Normal 80-100 The [facility] Comment on above: Performed By: #### C BC ####[facility] PATHOLOGY [id number] [place], Platelet mean volume (Bld) [Entitic vol] 10.8 fL Normal 7.5-11.2 [facility] Comment on above: Performed By: #### C BC ####[facility] PATHOLOGY [id number] [place], Platelets (Bld) [#/Vol] 92 10*3/uL Low 150-400 The [facility] Comment on above: Performed By: #### C BC ####[facility] PATHOLOGY [id number] [place], RBC (Bld) [#/Vol] 3.18 10*6/uL Low 4.50-5.90 The [facility] Comment on above: Performed By: #### C BC ####[facility] PATHOLOGY [id number] [place], WBC (Bld) [#/Vol] 6.5 10*3/uL Normal 4.5-11.5 [facility] Comment on above: Performed By: #### C BC ####[facility] PATHOLOGY [id number] [place], Care Plan Noteon 02-09-2021 Stereo Equipment Repairer Authentication Interface Message Text Normal The [facility] Stereo Equipment Repairer Authentication Interface Message Text Normal [facility] Consultson 02-09-2021 Stereo Equipment Repairer Authentication Interface Message Text Normal [facility] MAGNESIUMon 02-09-2021 Magnesium [Mass/Vol] 2.0 mg/dL Normal 1.6-2.8 The [facility] Comment on above: Performed By: #### C H8, MG ####[facility] [id number] [place], Progress Noteson 02-09-2021 Stereo Equipment Repairer Authentication Interface Message Text Normal [facility] Stereo Equipment Repairer Authentication Interface Message Text Normal [facility] XR CHEST AP OR PA 1 VIEWon 0 02-09-2021 XR CHEST AP OR PA 1 VIEW Normal [facility] 1:1 Interactionon 02-08-2021 Stereo Equipment Repairer Authentication Interface Message Text Normal [facility] AMMONIAon 02-08-2021 AMMO 14 umol/L Normal 11-35 The [facility] Comment on above: Performed By: #### A MMO ####S PATHOLOGY [id number] [place], BASIC METABOLIC PANELon 01-29 Anion gap [Moles/Vol] 8 mmol/L Normal 5-13 The [facility] Comment on above: Performed By: #### C H8, MG, CK ####[facility] [id number] [place], Calcium [Mass/Vol] 8.2 mg/dL Low 8.4-10.4 The [facility] Comment on above: Performed By: #### Austyn H8, MG, CK ####[facility] [id number] [place], Chloride [Moles/Vol] 117 mmol/L High 97-111 The [facility] Comment on above: Performed By: #### C H8, MG, CK ####[facility] [id number] [place], CO2 [Moles/Vol] 22 mmol/L Normal 21-30 The [facility] Comment on above: Performed By: #### Austyn Tamez MG, CK ####S PATHOLOGY [id number] [place], Creatinine [Mass/Vol] 0.99 mg/dL Normal 0.80-1.30 The [facility] Comment on above: Performed By: #### Austyn Tamez MG, CK ####[facility] PATHOLOGY [id number] [place], ESTIMATED GFR (CKD-EPI) 75 mL/min/1.73sqm Normal >=60 The [facility] Comment on above: Performed By: #### Austyn Tamez MG, CK ####[facility] PATHOLOGY [id number] [place], Glucose [Mass/Vol] 93 mg/dL Normal 80-116 The [facility] Comment on above: Performed By: #### Austyn Tamez MG, CK ####[facility] PATHOLOGY [id number] [place], Potassium [Moles/Vol] 3.9 mmol/L Normal 3.3-5.3 The [facility] Comment on above: Performed By: #### Austyn Tamez MG, CK ####[facility] PATHOLOGY [id number] [place], Sodium [Moles/Vol] 143 mmol/L Normal 135-148 The [facility] Comment on above: Performed By: #### Austyn Tamez MG, CK ####S PATHOLOGY [id number] [place], Urea nitrogen [Mass/Vol] 17 mg/dL Normal 8-22 The [facility] Comment on above: Performed By: #### Austyn HSajan MG, CK ####S PATHOLOGY [id number] [place], BLOOD GAS, ARTERIALon 2020 CR % O2 SAT > 99.4 Normal >=95.1 The [facility] Comment on above: Performed By: #### Austyn R BGA ####S PATHOLOGY [id number] [place], CR MAYCOL -3.3 mmol/L Low -2.0-2.0 [facility] Comment on above: Performed By: #### C R BGA ####[facility] PATHOLOGY [id number] [place], CR PCO2 30.3 mm Hg Low 35.0-45.0 [facility] Comment on above: Performed By: #### C R BGA ####[facility] PATHOLOGY [id number] [place] [address], CR PHA 7.430 Normal 7.35-7.45 [facility] Comment on above: Performed By: #### C R BGA ####[facility] PATHOLOGY [id number] [place] [address], CR PO2 179 mm Hg High 80-100 mm Hg [facility] Comment on above: Performed By: #### C R BGA ####[facility] PATHOLOGY [id number] [place] [address], FIO2 (CATEGORY) 5 LPM Normal [facility] Comment on above: Performed By: #### C R BGA ####[facility] PATHOLOGY [id number] [place] [address], HCO3 (Bld) [Moles/Vol] 20 mmol/L Low 22-28 Th e [facility] Comment on above: Performed By: #### C R BGA ####[facility] PATHOLOGY [id number] [place], MODE Nasal Canula Normal [facility] Comment on above: Performed By: #### C R BGA ####[facility] PATHOLOGY [id number] [place] [address], COMPLETE BLOOD COUNTon 02-08 Erythrocyte distribution width (RBC) [Ratio] 14.3 % Normal 11.5-14.5 [facility] Comment on above: Performed By: #### C BC ####[facility] PATHOLOGY [id number] [place], Hematocrit (Bld) [Volume fraction] 31.5 % Low 41.0-53.0 [facility] Comment on above: Performed By: #### C BC ####[facility] PATHOLOGY [id number] [place], Hemoglobin (Bld) [Mass/Vol] 10.4 g/dL Low 13.9-16.3 [facility] Comment on above: Performed By: #### C BC ####[facility] PATHOLOGY [id number] [place], MCH (RBC) [Entitic mass] 31.1 pg Normal 26.0-34.0 [facility] Comment on above: Performed By: #### C BC ####[facility] PATHOLOGY [id number] [place], MCHC (RBC) [Mass/Vol] 33.1 g/dL Normal 32.0-35.9 [facility] Comment on above: Performed By: #### C BC ####[facility] PATHOLOGY [id number] [place], MCV (RBC) [Entitic vol] 94 fL Normal 80-100 [facility] Comment on above: Performed By: #### C BC ####[facility] PATHOLOGY [id number] [place], Platelet mean volume (Bld) [Entitic vol] 11.0 fL Normal 7.5-11.2 [facility] Comment on above: Performed By: #### C BC ####[facility] PATHOLOGY [id number] [place], Platelets (Bld) [#/Vol] 80 10*3/uL Low 150-400 [facility] Comment on above: Performed By: #### C BC ####[facility] PATHOLOGY [id number] [place], RBC (Bld) [#/Vol] 3.34 10*6/uL Low 4.50-5.90 [facility] Comment on above: Performed By: #### C BC ####[facility] PATHOLOGY [id number] [place], WBC (Bld) [#/Vol] 6.9 10*3/uL Normal 4.5-11.5 The [facility] Comment on above: Performed By: #### C BC ####[facility] PATHOLOGY [id number] [place], CREATINE KINASEon 02-08-2021 CK [Catalytic activity/Vol] 1850 U/L High 57-374 The [facility] Comment on above: Performed By: #### C H8, MG, CK ####[facility] PATHOLOGY [id number] [place], CT CEREBRAL PERFUSION W/+W/O CONTRASTon 02-08-2021 CT CEREBRAL PERFUSION W/+W/O CONTRAST Normal The [facility] Care Plan Noteon 02-08-2021 Stereo Equipment Repairer Authentication Interface Message Text Normal [facility] Stereo Equipment Repairer Authentication Interface Message Text Normal [facility] Consultson 02-08-2021 Stereo Equipment Repairer Authentication Interface Message Text Normal [facility] Stereo Equipment Repairer Authentication Interface Message Text Normal The [facility] Stereo Equipment Repairer Authentication Interface Message Text Normal The [facility] Stereo Equipment Repairer Authentication Interface Message Text Normal The [facility] FULL LIPID PROFILEon 021 Cholesterol [Mass/Vol] 139 mg/dL Normal <181 Th e [facility] Comment on above: Performed By: #### H DL ####[facility] PATHOLOGY [id number] [place], Cholesterol in LDL [Mass/Vol] 85 mg/dL Normal <111 The [facility] Comment on above: Performed By: #### H DL ####[facility] PATHOLOGY [id number] [place], Cholesterol.total/Chol esterol in HDL [Mass ratio] 3.48 {ratio} Normal The [facility] Comment on above: Performed By: #### H DL ####S PATHOLOGY [id number] [place], HDL CHOL 40 mg/dL Low >44 The [facility] Comment on above: Performed By: #### H DL ####S PATHOLOGY [id number] [place], LDL/HDL 2.13 Normal <3.57 The [facility] Comment on above: Performed By: #### H DL ####S PATHOLOGY [id number] [place], NON-HDL CHOLESTEROL 99 mg/dL Normal <130 [facility] Comment on above: Performed By: #### H DL ####S PATHOLOGY [id number] [place], Triglyceride [Mass/Vol] 108 mg/dL Normal <151 [facility] Comment on above: Performed By: #### H DL ####[facility] PATHOLOGY [id number] [place], MAGNESIUMon 02-08-2021 Magnesium [Mass/Vol] 1.8 mg/dL Normal 1.6-2.8 [facility] Comment on above: Performed By: #### M G ####[facility] PATHOLOGY [id number] [place], Magnesium [Mass/Vol] 1.7 mg/dL Normal 1.6-2.8 [facility] Comment on above: Performed By: #### C H8, MG, CK ####[facility] PATHOLOGY [id number] [place], Procedureson 02-08-2021 Stereo Equipment Repairer Authentication Interface Message Text Normal [facility] Stereo Equipment Repairer Authentication Interface Message Text Normal [facility] Stereo Equipment Repairer Authentication Interface Message Text Normal [facility] Progress Noteson 02-08-2021 Stereo Equipment Repairer Authentication Interface Message Text Normal [facility] Stereo Equipment Repairer Authentication Interface Message Text Normal [facility] Stereo Equipment Repairer Authentication Interface Message Text Normal [facility] Stereo Equipment Repairer Authentication Interface Message Text Normal [facility] Stereo Equipment Repairer Authentication Interface Message Text Normal [facility] XR ABDOMEN APon 02-08-2021 XR ABDOMEN AP Normal [facility] XR CHEST AP OR PA 1 VIEWon 0 02-08-2021 XR CHEST AP OR PA 1 VIEW Normal [facility] XR CHEST AP OR PA 1 VIEW Normal [facility] 1:1 Interactionon 02-07-2021 Stereo Equipment Repairer Authentication Interface Message Text Normal The [facility] BASIC METABOLIC PANELon 01-29 Anion gap [Moles/Vol] 11 mmol/L Normal 5-13 [facility] Comment on above: Performed By: #### P HOS, CH8, CK, MG ####[facility] [id number] [place], Calcium [Mass/Vol] 8.1 mg/dL Low 8.4-10.4 The [facility] Comment on above: Performed By: #### P HOS, CH8, CK, MG ####[facility] [id number] [place], Chloride [Moles/Vol] 119 mmol/L High 97-111 The [facility] Comment on above: Performed By: #### P HOS, CH8, CK, MG ####S PATHOLOGY [id number] [place], CO2 [Moles/Vol] 21 mmol/L Normal 21-30 The [facility] Comment on above: Performed By: #### P HOS, CH8, CK, MG ####S PATHOLOGY SELATKCCBX5751 [place], Creatinine [Mass/Vol] 1.05 mg/dL Normal 0.80-1.30 The [facility] Comment on above: Performed By: #### P HOS, CH8, CK, MG ####S PATHOLOGY [id number] [place], ESTIMATED GFR (CKD-EPI) 70 mL/min/1.73sqm Normal >=60 The [facility] Comment on above: Performed By: #### P HOS, CH8, CK, MG ####S PATHOLOGY [id number] [place], Glucose [Mass/Vol] 98 mg/dL Normal 80-116 The [facility] Comment on above: Performed By: #### P HOS, CH8, CK, MG ####S PATHOLOGY UYNTHFYQGX5990 [place], Potassium [Moles/Vol] 4.0 mmol/L Normal 3.3-5.3 The [facility] Comment on above: Performed By: #### P HOS, CH8, CK, MG ####[facility] MNUVNDCRAO7163 [place], Sodium [Moles/Vol] 147 mmol/L Normal 135-148 The [facility] Comment on above: Performed By: #### P HOS, CH8, CK, MG ####[facility] PATHOLOGY [id number] [place], Urea nitrogen [Mass/Vol] 26 mg/dL High 8-22 The [facility] Comment on above: Performed By: #### P HOS, CH8, CK, MG ####[facility] PATHOLOGY [id number] [place], BLOOD CULTUREon 02-07-2021 Bacteria identified Cx Nom (Bld) C BLOOD: No Growth Normal The [facility] Comment on above: Order Comment: The r esults may be compromised due to inadequate volume of fluid received. A negative result does not rule out an infectious process. Performed By: #### C BLOOD ####[facility] Iaycmpxvn0809 [place], [place] BLOOD GAS, ARTERIALon 2020 CR MAYCOL -4.3 mmol/L Low -2.0-2.0 The [facility] Comment on above: Performed By: #### C R BGA ####[facility] PATHOLOGY [id number] [place], CR PCO2 35.1 mm Hg Normal 35.0-45.0 The [facility] Comment on above: Performed By: #### C R BGA ####[facility] PATHOLOGY [id number] [place], CR PHA 7.371 Normal 7.35-7.45 The [facility] Comment on above: Performed By: #### C R BGA ####[facility] PATHOLOGY [id number] [place], CR PO2 110 mm Hg High 80-100 mm Hg [facility] Comment on above: Performed By: #### C R BGA ####[facility] PATHOLOGY [id number] [place], FIO2 (CATEGORY) 40% Normal [facility] Comment on above: Performed By: #### C R BGA ####[facility] PATHOLOGY [id number] [place], HCO3 (Bld) [Moles/Vol] 20 mmol/L Low 22-28 Th e [facility] Comment on above: Performed By: #### C R BGA ####[facility] PATHOLOGY [id number] [place], MODE Vent Normal [facility] Comment on above: Performed By: #### C R BGA ####[facility] PATHOLOGY [id number] [place], Oxygen saturation in Blood 98.0 % Normal >=95.1 [facility] Comment on above: Performed By: #### C R BGA ####[facility] PATHOLOGY [id number] [place], CALCIUM, IONIZEDon CR ICA 1.17 mmol/L Normal 1.10-1.40 [facility] Comment on above: Performed By: #### C R ICA, LACT ####[facility] PATHOLOGY [id number] [place] [address], COMPLETE BLOOD COUNTon 02-07 Erythrocyte distribution width (RBC) [Ratio] 14.7 % High 11.5-14.5 [facility] Comment on above: Performed By: #### C BC ####[facility] PATHOLOGY [id number] [place] [address], Hematocrit (Bld) [Volume fraction] 33.4 % Low 41.0-53.0 [facility] Comment on above: Performed By: #### C BC ####[facility] PATHOLOGY [id number] [place], Hemoglobin (Bld) [Mass/Vol] 10.7 g/dL Low 13.9-16.3 [facility] Comment on above: Performed By: #### C BC ####[facility] PATHOLOGY [id number] [place], MCH (RBC) [Entitic mass] 30.2 pg Normal 26.0-34.0 [facility] Comment on above: Performed By: #### C BC ####[facility] PATHOLOGY [id number] [place], MCHC (RBC) [Mass/Vol] 32.0 g/dL Normal 32.0-35.9 [facility] Comment on above: Performed By: #### C BC ####[facility] PATHOLOGY [id number] [place], MCV (RBC) [Entitic vol] 94 fL Normal 80-100 [facility] Comment on above: Performed By: #### C BC ####[facility] PATHOLOGY [id number] [place], Platelet mean volume (Bld) [Entitic vol] 10.4 fL Normal 7.5-11.2 [facility] Comment on above: Performed By: #### C BC ####[facility] PATHOLOGY [id number] [place] [address], Platelets (Bld) [#/Vol] 86 10*3/uL Low 150-400 [facility] Comment on above: Performed By: #### C BC ####[facility] PATHOLOGY [id number] [place] [address], RBC (Bld) [#/Vol] 3.54 10*6/uL Low 4.50-5.90 [facility] Comment on above: Performed By: #### C BC ####[facility] PATHOLOGY [id number] [place] [address], WBC (Bld) [#/Vol] 8.2 10*3/uL Normal 4.5-11.5 [facility] Comment on above: Performed By: #### C BC ####[facility] PATHOLOGY [id number] [place] [address], Erythrocyte distribution width (RBC) [Ratio] 14.9 % High 11.5-14.5 The [facility] Comment on above: Performed By: #### C BC ####[facility] PATHOLOGY [id number] [place] [address], Hematocrit (Bld) [Volume fraction] 34.6 % Low 41.0-53.0 [facility] Comment on above: Performed By: #### C BC ####[facility] PATHOLOGY [id number] [place] [address], Hemoglobin (Bld) [Mass/Vol] 11.5 g/dL Low 13.9-16.3 The [facility] Comment on above: Performed By: #### C BC ####[facility] PATHOLOGY [id number] [place], MCH (RBC) [Entitic mass] 31.8 pg Normal 26.0-34.0 The [facility] Comment on above: Performed By: #### C BC ####[facility] PATHOLOGY [id number] [place], MCHC (RBC) [Mass/Vol] 33.2 g/dL Normal 32.0-35.9 The [facility] Comment on above: Performed By: #### C BC ####[facility] PATHOLOGY [id number] [place] [address], MCV (RBC) [Entitic vol] 96 fL Normal 80-100 The [facility] Comment on above: Performed By: #### C BC ####[facility] PATHOLOGY [id number] [place] [address], Platelet mean volume (Bld) [Entitic vol] 10.7 fL Normal 7.5-11.2 The [facility] Comment on above: Performed By: #### C BC ####[facility] PATHOLOGY [id number] [place] [address], Platelets (Bld) [#/Vol] 85 10*3/uL Low 150-400 The [facility] Comment on above: Performed By: #### C BC ####[facility] PATHOLOGY [id number] [place] [address], RBC (Bld) [#/Vol] 3.62 10*6/uL Low 4.50-5.90 The [facility] Comment on above: Performed By: #### C BC ####[facility] PATHOLOGY [id number] [place] [address], WBC (Bld) [#/Vol] 10.6 10*3/uL Normal 4.5-11.5 The [facility] Comment on above: Performed By: #### C BC ####[facility] PATHOLOGY [id number] [place], CREATINE KINASEon 02-07-2021 CK [Catalytic activity/Vol] 1944 U/L High 57-374 [facility] Comment on above: Performed By: #### C K ####[facility] [id number] [place], CK [Catalytic activity/Vol] 1978 U/L High 57-374 [facility] Comment on above: Performed By: #### C K ####[facility] [id number] [place], CK [Catalytic activity/Vol] 2265 U/L High 57-374 [facility] Comment on above: Performed By: #### P HOS, CH8, CK, MG ####[facility] [id number] [place], CK [Catalytic activity/Vol] 2537 U/L High 57-374 [facility] Comment on above: Performed By: #### C K ####[facility] PATHOLOGY [id number] [place], Care Plan Noteon 02-07-2021 Stereo Equipment Repairer Authentication Interface Message Text Normal [facility] Consultson 02-07-2021 Stereo Equipment Repairer Authentication Interface Message Text Normal [facility] Stereo Equipment Repairer Authentication Interface Message Text Normal [facility] Stereo Equipment Repairer Authentication Interface Message Text Normal [facility] GLUCOSE, FINGERSTICK-IN OFFI CEon 02-07-2021 Glucose [Mass/Vol] 92 mg/dL Normal 80-116 [facility] Comment on above: Performed By: #### 8 2948 ####NURSING GLUCOSE [id number] [place], [address] Glucose [Mass/Vol] 82 mg/dL Normal 80-116 [facility] Comment on above: Performed By: #### 8 2948 ####NURSING GLUCOSE [id number] [place], [address] Glucose [Mass/Vol] 89 mg/dL Normal 80-116 [facility] Comment on above: Performed By: #### 8 2948 ####NURSING GLUCOSE [id number] [place], [address] LACTIC ACIDon 02-07-2021 CR LACT 1.0 mmol/L Normal 0.5-2.0 [facility] Comment on above: Performed By: #### C R ICA, LACT ####S PATHOLOGY [id number] [place], [place], MAGNESIUMon 02-07-2021 Magnesium [Mass/Vol] 2.0 mg/dL Normal 1.6-2.8 [facility] Comment on above: Performed By: #### P HOS, CH8, CK, MG ####[facility] PATH[facility] [id number] [place], NOVEL CORONAVIRUS (COVID-19) on 02-07-2021 SARS-CoV-2 (COVID-19) RNA RICK+probe Ql (Unsp spec) Not detected Normal Not Detected [facility] Comment on above: Order Comment: This test is intended for use only under Emergency Use Authorization (EUA). This test was developed, and its performance characteristics determined by [facility] which is certified under CLIA as qualified to perform high complexity clinical laboratory testing. Result Comment: This assay was performed using [employer] LIONEL RTPCR technology. Performed By: #### C OVID19 ####[facility] PATH[facility]Y [id number] [place], PHOSPHORUSon 02-07-2021 Phosphate [Mass/Vol] 2.5 mg/dL Normal 2.3-4.2 [facility] Comment on above: Performed By: #### P HOS, CH8, CK, MG ####[facility] PATHOLOGY [id number] [place], [place], Procedureson 02-07-2021 Stereo Equipment Repairer Authentication Interface Message Text Normal [facility] Progress Noteson 02-07-2021 Stereo Equipment Repairer Authentication Interface Message Text Normal [facility] Stereo Equipment Repairer Authentication Interface Message Text Normal [facility] Stereo Equipment Repairer Authentication Interface Message Text Normal [facility] Stereo Equipment Repairer Authentication Interface Message Text Normal [facility] Stereo Equipment Repairer Authentication Interface Message Text Normal [facility] TOXICOLOGY SCREEN, UNCONFIRM EDon 02-07-2021 AMPH Negative Normal Negative [facility] Comment on above: Order Comment: This [...] toxicology consultation please call the laboratory at [phone]. Performed By: #### T OX CO ####S PATHOLOGY [id number] [place] [address], [id number] BARBIT Negative Normal Negative The [facility] Comment on above: Order Comment: This [...] toxicology consultation please call the laboratory at [phone]. Performed By: #### T OX CO ####S PATHOLOGY [id number] [place] [address], BENZO Positive Abnormal Negative The [facility] Comment on above: Order Comment: This [...] toxicology consultation please call the laboratory at [phone]. Performed By: #### T OX CO ####S PATHOLOGY [id number] [place], COCAINE CL Negative Normal Negative The [facility] Comment on above: Order Comment: This [...] toxicology consultation please call the laboratory at [phone]. Performed By: #### T OX CO ####S PATHOLOGY [id number] [place], Ethanol [Mass/Vol] Negative Normal Cutoff: 1 0 mg/dL The [facility] Comment on above: Order Comment: This [...] toxicology consultation please call the laboratory at [phone]. Performed By: #### T OX CO ####S PATHOLOGY [id number] [place], FENTANYL Positive Abnormal Negative The [facility] Comment on above: Order Comment: This [...] toxicology consultation please call the laboratory at [phone]. Performed By: #### T OX SC ####S PATHOLOGY [id number] [place], HYDROCODONE (PM) Negative Normal Negative The [facility] Comment on above: Order Comment: This [...] toxicology consultation please call the laboratory at [phone]. Performed By: #### T OX SC ####S PATHOLOGY [id number] [place], Methadone Ql (U) Negative Normal Negative The [facility] Comment on above: Order Comment: This [...] toxicology consultation please call the laboratory at [phone]. Performed By: #### T OX SC ####S PATHOLOGY [id number] [place], NORBUPRENORPHINE Negative Normal Cutoff: 10 ng/mL The [facility] Comment on above: Order Comment: This [...] toxicology consultation please call the laboratory at [phone]. Performed By: #### T OX SC ####S PATHOLOGY [id number] [place], OPIATE Negative Normal Negative The [employer] [facility] Comment on above: Order Comment: This toxicology [...] toxicology consultation please call the laboratory at [phone]. Performed By: #### T OX SC ####S PATHOLOGY [id number] [place], OXYCODONE Positive Abnormal Cutoff: 100 The [facility] Comment on above: Order Comment: This [...] toxicology consultation please call the laboratory at [phone]. Result Comment: Oxyc odone and metabolites of Oxycodone (Oxymorphone, Noroxycodone, and Noroxymorphone) are measured/detected in this assay method. Performed By: #### T OX CO ####[facility] PATHOLOGY [id number] [place], PHENCYCL Negative Normal Negative [facility] Comment on above: Order Comment: This [...] toxicology consultation please call the laboratory at [phone]. Performed By: #### T OX CO ####[facility] PATHOLOGY [id number] [place], THC CL Negative Normal Negative [facility] Comment on above: Order Comment: This toxicology [...] toxicology consultation please call the laboratory at [phone]. Performed By: #### T OX CO ####S PATHOLOGY [id number] [place], AMPH Negative Normal Negative [facility] Comment on above: Order Comment: This toxicology [...] toxicology consultation please call the laboratory at [phone]. Performed By: #### T OX CO ####[facility] PATHOLOGY [id number] [place], BARBIT Negative Normal Negative The [facility] Comment on above: Order Comment: This [...] toxicology consultation please call the laboratory at [phone]. Performed By: #### T OX CO ####[facility] PATHOLOGY [id number] [place], BENZO Positive Abnormal Negative The [facility] Comment on above: Order Comment: This [...] toxicology consultation please call the laboratory at [phone]. Performed By: #### T OX SC ####S PATHOLOGY [id number] [place], COCAINE CL Negative Normal Negative The [facility] Comment on above: Order Comment: This [...] toxicology consultation please call the laboratory at [phone]. Performed By: #### T OX SC ####S PATHOLOGY HIZPRAMYQL8816 [place], Ethanol [Mass/Vol] Negative Normal Cutoff: 1 0 mg/dL [facility] Comment on above: Order Comment: This [...] toxicology consultation please call the laboratory at [phone]. Performed By: #### T OX SC ####S PATHOLOGY [id number] [place], FENTANYL Positive Abnormal Negative [facility] Comment on above: Order Comment: This toxicology [...] toxicology consultation please call the laboratory at [phone]. Performed By: #### T OX SC ####S PATHOLOGY [id number] [place], HYDROCODONE (PM) Negative Normal Negative The [facility] Comment on above: Order Comment: This [...] toxicology consultation please call the laboratory at [phone]. Performed By: #### T OX SC ####S PATHOLOGY [id number] [place] [address], Methadone Ql (U) Negative Normal Negative The [facility] Comment on above: Order Comment: This [...] toxicology consultation please call the laboratory at [phone]. Performed By: #### T OX SC ####S PATHOLOGY [id number] [place], NORBUPRENORPHINE Negative Normal Cutoff: 10 ng/mL The [facility] Comment on above: Order Comment: This [...] toxicology consultation please call the laboratory at [phone]. Performed By: #### T OX CO ####[facility] PATHOLOGY [id number] [place], OPIATE Negative Normal Negative The [facility] Comment on above: Order Comment: This [...] toxicology consultation please call the laboratory at [phone]. Performed By: #### T OX CO ####S PATHOLOGY [id number] [place], OXYCODONE Positive Abnormal Cutoff: 100 The [facility] Comment on above: Order Comment: This [...] toxicology consultation please call the laboratory at [phone]. Result Comment: Oxyc odone and metabolites of Oxycodone (Oxymorphone, Noroxycodone, and Noroxymorphone) are measured/detected in this assay method. Performed By: #### T OX SC ####S PATHOLOGY [id number] [place], PHENCYCL Negative Normal Negative [facility] Comment on above: Order Comment: This [...] toxicology consultation please call the laboratory at [phone]. Performed By: #### T OX SC ####[facility] PATHOLOGY [id number] [place], THC CL Negative Normal Negative [facility] Comment on above: Order Comment: This [...] toxicology consultation please call the laboratory at [phone]. Performed By: #### T OX SC ####S PATHOLOGY [id number] [place], URINALYSISon 02-07-2021 Glucose Ql (U) Negative Normal Negative The [facility] Comment on above: Order Comment: A [...] Performed By: #### u rinalysis ####S PATHOLOGY [id number] [place], Protein (U) [Mass/Vol] 30 mg/dL Abnormal Negative Th e [facility] Comment on above: Order Comment: A [...] Performed By: #### u rinalysis ####S PATHOLOGY [id number] [place], SQUAMOUS EPITHELIAL 0-2 Normal 0-10 [facility] Comment on above: Order Comment: A [...] Performed By: #### u rinalysis ####S PATHOLOGY [id number] [place], [place] APPEAR Hazy Normal Clear [facility] Comment on above: Order Comment: A [...] around 50%) Performed By: #### u rinalysis ####[facility] PATHOLOGY [id number] [place] [address], U BILI Negative Normal Negative [facility] Comment on above: Order Comment: A [...] around 50%) Performed By: #### u rinalysis ####[facility] PATHOLOGY [id number] [place] [address], U BLOOD Moderate Abnormal Negative [facility] Comment on above: Order Comment: A [...] around 50%) Performed By: #### u rinalysis ####[facility] PATHOLOGY [id number] [place] [address], U COLOR Yellow Normal Yellow [facility] Comment on above: Order Comment: A [...] Performed By: #### u rinalysis ####S PATHOLOGY [id number] [place], [place] KETONE Negative Normal Negative [facility] Comment on above: Order Comment: A [...] around 50%) Performed By: #### u rinalysis ####[facility] PATHOLOGY [id number] [place] [address], U LEUK Negative Normal Negative [facility] Comment on above: Order Comment: A [...] Performed By: #### u rinalysis ####S PATHOLOGY [id number] [place] [address], U MUCOUS Present Normal [facility] Comment on above: Order Comment: A [...] around 50%) Performed By: #### u rinalysis ####[facility] PATHOLOGY [id number] [place], [place] NITRITE Negative Normal Negative [facility] Comment on above: Order Comment: A [...] around 50%) Performed By: #### u rinalysis ####[facility] PATHOLOGY [id number] [place], [place] PH 5.0 Normal 5.0-8.0 [facility] Comment on above: Order Comment: A [...] around 50%) Performed By: #### u rinalysis ####[facility] PATHOLOGY [id number] [place], U RBC 31-100 Abnormal 0-2 [facility] Comment on above: Order Comment: A [...] around 50%) Performed By: #### u rinalysis ####[facility] PATHOLOGY [id number] [place], [place] SG 1.045 High 1.005-1.030 [facility] Comment on above: Order Comment: A [...] around 50%) Performed By: #### u rinalysis ####[facility] PATHOLOGY [id number] [place], [place] UROBILI Negative Normal 0.1 - 1.0 [facility] Comment on above: Order Comment: A [...] around 50%) Performed By: #### u rinalysis ####[facility] PATHOLOGY [id number] [place], U WBC 3-5 Abnormal 0-2 [facility] Comment on above: Order Comment: A [...] Performed By: #### u rinalysis ####S PATHOLOGY [id number] [place], URINE MYOGLOBINon 02-07-2021 U CARLA Negative Normal Negative [facility] Comment on above: Performed By: #### U CARLA ####[facility] PATHOLOGY [id number] [place], XR ANKLE LEFTon 02-07-2021 XR ANKLE LEFT Normal [facility] XR ANKLE RIGHT 2 VIEWon 01-29 XR ANKLE RIGHT 2 VIEW Normal [facility] XR CHEST AP OR PA 1 VIEWon 0 02-07-2021 XR CHEST AP OR PA 1 VIEW Normal [facility] XR CHEST AP OR PA 1 VIEW Normal [facility] BASIC METABOLIC PANELon Anion gap [Moles/Vol] 9 mmol/L Normal 5-13 [facility] Comment on above: Performed By: #### C H8, CK, MG, HEPATIC, PHOS ####S PATHOLOGY [id number] [place], Calcium [Mass/Vol] 6.5 mg/dL Low 8.4-10.4 [facility] Comment on above: Performed By: #### C H8, CK, MG, HEPATIC, PHOS ####[facility] PATH[facility] [id number] [place], Chloride [Moles/Vol] 113 mmol/L High 97-111 [facility] Comment on above: Performed By: #### C H8, CK, MG, HEPATIC, PHOS ####[facility] PATHOLOGY [id number] [place], CO2 [Moles/Vol] 18 mmol/L Low 21-30 [facility] Comment on above: Performed By: #### C H8, CK, MG, HEPATIC, PHOS ####S PATHOLOGY [id number] [place], Creatinine [Mass/Vol] 0.96 mg/dL Normal 0.80-1.30 The [facility] Comment on above: Performed By: #### C H8, CK, MG, HEPATIC, PHOS ####[facility] PATHOLOGY [id number] [place], ESTIMATED GFR (CKD-EPI) 78 mL/min/1.73sqm Normal >=60 The [facility] Comment on above: Performed By: #### C H8, CK, MG, HEPATIC, PHOS ####S PATHOLOGY [id number] [place], Glucose [Mass/Vol] 87 mg/dL Normal 80-116 The [facility] Comment on above: Performed By: #### C H8, CK, MG, HEPATIC, PHOS ####S PATHOLOGY [address]QPGNVEQC[address] [place] [address], Potassium [Moles/Vol] 4.2 mmol/L Normal 3.3-5.3 The [facility] Comment on above: Result Comment: Hemo lysis present Performed By: #### C H8, CK, MG, HEPATIC, PHOS ####[facility] PATH[facility]Y [id number] [place], Sodium [Moles/Vol] 136 mmol/L Normal 135-148 The [facility] Comment on above: Performed By: #### C H8, CK, MG, HEPATIC, PHOS ####S PATHOLOGY [id number] [place], Urea nitrogen [Mass/Vol] 26 mg/dL High 8-22 The [facility] Comment on above: Performed By: #### C H8, CK, MG, HEPATIC, PHOS ####[facility] PATHOLOGY [id number] [place], BLOOD GAS, ARTERIALon 2020 CR MAYCOL -4.6 mmol/L Low -2.0-2.0 The [facility] Comment on above: Performed By: #### C R BGA ####[facility] PATHOLOGY [id number] [place], CR PCO2 37.3 mm Hg Normal 35.0-45.0 [facility] Comment on above: Performed By: #### C R BGA ####[facility] PATHOLOGY [id number] [place], CR PHA 7.349 Low 7.35-7.45 [facility] Comment on above: Performed By: #### C R BGA ####[facility] PATHOLOGY [id number] [place] [address], CR PO2 113 mm Hg High 80-100 mm Hg [facility] Comment on above: Performed By: #### C R BGA ####[facility] PATHOLOGY [id number] [place] [address], FIO2 (CATEGORY) 40% Normal [facility] Comment on above: Performed By: #### C R BGA ####[facility] PATHOLOGY [id number] [place] [address], HCO3 (Bld) [Moles/Vol] 20 mmol/L Low 22-28 Th e [facility] Comment on above: Performed By: #### C R BGA ####[facility] PATHOLOGY [id number] [place] [address], MODE Vent Normal [facility] Comment on above: Result Comment: 500 x 16 +5 Performed By: #### C R BGA ####[facility] PATHOLOGY [id number] [place] [address], Oxygen saturation in Blood 98.2 % Normal >=95.1 The [facility] Comment on above: Performed By: #### C R BGA ####[facility] PATHOLOGY [id number] [place], CBC WITH DIFFERENTIALon 06-0 -2020 Basophils (Bld) [#/Vol] 0.02 10*3/uL Normal 0.00-0.20 [facility] Comment on above: Performed By: #### C BCDSAT ####[facility] PATHOLOGY [id number] [place] [address], Basophils/100 WBC (Bld) 0.2 % Normal <=1.9 [facility] Comment on above: Performed By: #### C BCDSAT ####[facility] PATHOLOGY [id number] [place], Eosinophils (Bld) [#/Vol] 0.00 10*3/uL Normal 0.00-0.70 [facility] Comment on above: Performed By: #### C BCDSAT ####[facility] PATHOLOGY [id number] [place] [address], Eosinophils/100 WBC (Bld) 0.0 % Low 0.1-4.0 [facility] Comment on above: Performed By: #### C BCDSAT ####[facility] PATHOLOGY [id number] [place] [address], Erythrocyte distribution width (RBC) [Ratio] 14.6 % High 11.5-14.5 [facility] Comment on above: Performed By: #### C BCDSAT ####[facility] PATHOLOGY [id number] [place] [address], Hematocrit (Bld) [Volume fraction] 37.5 % Low 41.0-53.0 [facility] Comment on above: Performed By: #### C BCDSAT ####[facility] PATHOLOGY [id number] [place] [address], Hemoglobin (Bld) [Mass/Vol] 12.2 g/dL Low 13.9-16.3 [facility] Comment on above: Performed By: #### C BCDSAT ####[facility] PATHOLOGY [id number] [place] [address], Lymphocytes (Bld) [#/Vol] 1.55 10*3/uL Normal 1.00-4.80 [facility] Comment on above: Performed By: #### C BCDSAT ####[facility] PATHOLOGY [id number] [place] [address], Lymphocytes/100 WBC (Bld) 12.9 % Low 24.0-44.0 [facility] Comment on above: Performed By: #### C BCDSAT ####[facility] PATHOLOGY [id number] [place], MCH (RBC) [Entitic mass] 30.6 pg Normal 26.0-34.0 [facility] Comment on above: Performed By: #### Austyn ALLENAT ####[facility] PATHOLOGY [id number] [place], MCHC (RBC) [Mass/Vol] 32.5 g/dL Normal 32.0-35.9 The [facility] Comment on above: Performed By: #### Austyn ALLENAT ####[facility] PATHOLOGY [id number] [place], MCV (RBC) [Entitic vol] 94 fL Normal 80-100 The [facility] Comment on above: Performed By: #### Austyn ALLENAT ####[facility] PATHOLOGY [id number] [place], MONOCYTE DISTRIBUTION WIDTH 22 High <=20 [facility] Comment on above: Performed By: #### Austyn ALLENAT ####[facility] PATHOLOGY [id number] [place], Monocytes (Bld) [#/Vol] 1.48 10*3/uL High 0.20-1.00 [facility] Comment on above: Performed By: #### Austyn ALLENAT ####[facility] PATHOLOGY [id number] [place], Monocytes/100 WBC (Bld) 12.4 % High 2.0-11.0 [facility] Comment on above: Performed By: #### Austyn ALLENAT ####[facility] PATHOLOGY [id number] [place], Neutrophils (Bld) [#/Vol] 8.92 10*3/uL High 1.50-8.00 [facility] Comment on above: Performed By: #### Austyn ALLENAT ####[facility] PATHOLOGY [id number] [place], Neutrophils/100 WBC (Bld) 74.5 % Normal 31.0-76.0 [facility] Comment on above: Performed By: #### C BCDSAT ####[facility] PATH[facility] [id number] [place], Platelet mean volume (Bld) [Entitic vol] 11.2 fL Normal 7.5-11.2 The [facility] Comment on above: Performed By: #### C BCDSAT ####[facility] PATHOLOGY [id number] [place], Platelets (Bld) [#/Vol] 96 10*3/uL Low 150-400 [facility] Comment on above: Performed By: #### C BCDSAT ####[facility] PATHOLOGY [id number] [place], RBC (Bld) [#/Vol] 3.98 10*6/uL Low 4.50-5.90 The [facility] Comment on above: Performed By: #### C BCDSAT ####[facility] PATHOLOGY [id number] [place], WBC (Bld) [#/Vol] 12.0 10*3/uL High 4.5-11.5 The [facility] Comment on above: Performed By: #### C BCDSAT ####[facility] PATHOLOGY [id number] [place], COMPLETE BLOOD COUNTon 02-06 Erythrocyte distribution width (RBC) [Ratio] 14.8 % High 11.5-14.5 The [facility] Comment on above: Performed By: #### C BC ####[facility] PATHOLOGY [id number] [place], Hematocrit (Bld) [Volume fraction] 36.9 % Low 41.0-53.0 The [facility] Comment on above: Performed By: #### C BC ####[facility] PATHOLOGY [id number] [place], Hemoglobin (Bld) [Mass/Vol] 12.0 g/dL Low 13.9-16.3 The [facility] Comment on above: Performed By: #### C BC ####[facility] PATHOLOGY [id number] [place], MCH (RBC) [Entitic mass] 30.5 pg Normal 26.0-34.0 The [facility] Comment on above: Performed By: #### C BC ####[facility] PATHOLOGY [id number] [place], MCHC (RBC) [Mass/Vol] 32.4 g/dL Normal 32.0-35.9 The [facility] Comment on above: Performed By: #### C BC ####[facility] PATHOLOGY [id number] [place], MCV (RBC) [Entitic vol] 94 fL Normal 80-100 The [facility] Comment on above: Performed By: #### C BC ####[facility] PATHOLOGY [id number] [place], Platelet mean volume (Bld) [Entitic vol] 10.5 fL Normal 7.5-11.2 The [facility] Comment on above: Performed By: #### C BC ####[facility] PATHOLOGY [id number] [place], Platelets (Bld) [#/Vol] 100 10*3/uL Low 150-400 The [facility] Comment on above: Performed By: #### C BC ####[facility] PATHOLOGY [id number] [place], RBC (Bld) [#/Vol] 3.92 10*6/uL Low 4.50-5.90 The [facility] Comment on above: Performed By: #### C BC ####[facility] PATHOLOGY [id number] [place], WBC (Bld) [#/Vol] 12.6 10*3/uL High 4.5-11.5 The [facility] Comment on above: Performed By: #### C BC ####[facility] PATHOLOGY [id number] [place], CREATINE KINASEon 02-06-2021 CK [Catalytic activity/Vol] 1957 U/L High 57-374 [facility] [facility] Comment on above: Performed By: #### C H8, CK, MG, HEPATIC, PHOS ####[facility] PATHOLOGY [id number] [place], [place], CT C-SPINE W/O CONTRASTon CT C-SPINE W/O CONTRAST Normal [facility] CTA HEAD/NECK W/+W/O CONTRAS Ton 02-06-2021 CTA HEAD/NECK W/+W/O CONTRAST Normal [facility] Consultson 02-06-2021 Stereo Equipment Repairer Authentication Interface Message Text Normal [facility] ED Provider Noteson 02-07-20 Stereo Equipment Repairer Authentication Interface Message Text Normal [facility] ED Triage Noteson 02-06-2021 Stereo Equipment Repairer Authentication Interface Message Text 75M, found down, unresponsive Normal [facility] ETHANOL, SERUMon 02-06-2021 ETHANOL Normal None Detected [facility] Comment on above: Result Comment: Karyna sly hemolyzed, result is invalid.This is a corrected result. Previous result on 02/06/2021 at 1508 EDT was <5 mg/dL Performed By: #### E TOMAS ####[facility] [id number] [place], GLUCOSE, FINGERSTICK-IN OFFI CEon 02-06-2021 Glucose [Mass/Vol] 97 mg/dL Normal 80-116 [facility] Comment on above: Performed By: #### 8 2948 ####NURSING GLUCOSE [id number] [place], [address] Glucose [Mass/Vol] 108 mg/dL Normal 80-116 [facility] Comment on above: Performed By: #### 8 2948 ####NURSING GLUCOSE [id number] [place], [address] H AND Martin 02-06-2021 Stereo Equipment Repairer Authentication Interface Message Text Normal [facility] HEPATIC FUNCTION PANELon Albumin [Mass/Vol] 2.4 g/dL Low 3.4-5.1 [facility] Comment on above: Performed By: #### C H8, CK, MG, HEPATIC, PHOS ####[facility] [id number] [place], ALK 27 IU/L Low 40-200 [facility] Comment on above: Performed By: #### C H8, CK, MG, HEPATIC, PHOS ####S PATHOLOGY [id number] [place], ALT [Catalytic activity/Vol] 20 U/L Normal 7-40 The [facility] Comment on above: Performed By: #### C H8, CK, MG, HEPATIC, PHOS ####S PATHOLOGY [id number] [place], AST [Catalytic activity/Vol] 48 U/L High 7-40 [facility] Comment on above: Result Comment: Hemo lysis present Performed By: #### C H8, CK, MG, HEPATIC, PHOS ####[facility] PATHOLOGY [id number] [place], Bilirubin [Mass/Vol] 1.3 mg/dL Normal 0.1-1.5 [facility] Comment on above: Performed By: #### Austyn H8, CK, MG, HEPATIC, PHOS ####[facility] PATHOLOGY [id number] [place] [address], Bilirubin.direct [Mass/Vol] 0.20 mg/dL Normal 0.10-0.30 [facility] Comment on above: Performed By: #### C H8, CK, MG, HEPATIC, PHOS ####[facility] PATHOLOGY [id number] [place] [address], Protein [Mass/Vol] 3.8 g/dL Low 5.7-8.1 [facility] Comment on above: Performed By: #### C H8, CK, MG, HEPATIC, PHOS ####[facility] PATHOLOGY [id number] [place] [address], LACTIC ACIDon 02-06-2021 CR LACT 0.9 mmol/L Normal 0.5-2.0 [facility] Comment on above: Performed By: #### L ACT ####[facility] PATHOLOGY [id number] [place] [address], CR LACT 2.8 mmol/L High 0.5-2.0 [facility] Comment on above: Performed By: #### L ACT ####[facility] PATHOLOGY [id number] [place] [address], MAGNESIUMon 02-06-2021 Magnesium [Mass/Vol] 2.2 mg/dL Normal 1.6-2.8 [facility] Comment on above: Result Comment: Hemo lysis present Performed By: #### C H8, CK, MG, HEPATIC, PHOS ####[facility] PATHOLOGY [id number] [place], PARTIAL THROMBOPLASTIN TIMEo n 02-06-2021 aPTT Coag (Bld) [Time] 28 s Normal 25-37 [facility] Comment on above: Performed By: #### A PTT, PT ####[facility] PATHOLOGY [id number] [place], PHOSPHORUSon 02-06-2021 Phosphate [Mass/Vol] 2.4 mg/dL Normal 2.3-4.2 [facility] Comment on above: Performed By: #### C H8, CK, MG, HEPATIC, PHOS ####[facility] PATHOLOGY [id number] [place], PROTHROMBIN TIME AND INRon 0 02-06-2021 INR Coag (PPP) [Relative time] 1.27 {INR} High 0.90-1.10 [facility] Comment on above: Performed By: #### A PTT, PT ####S PATHOLOGY [id number] [place], PT Coag (PPP) [Time] 14.3 s High 9.7-12.9 [facility] Comment on above: Performed By: #### A PTT, PT ####[facility] PATHOLOGY [id number] [place], Progress Noteson 02-06-2021 Stereo Equipment Repairer Authentication Interface Message Text Normal [facility] Stereo Equipment Repairer Authentication Interface Message Text Normal [facility] Stereo Equipment Repairer Authentication Interface Message Text Normal [facility] TROPONIN Ion 02-06-2021 TROP I 0.102 ng/mL Normal <0.120 [facility] Comment on above: Result Comment: Rang [...] By: #### T ROP I ####S PATHOLOGY [id number] [place], TYPE AND SCREENon 02-06-2021 ABO and Rh group Nom (Bld) Blood group A Rh(D) positive Normal [facility] Comment on above: Performed By: #### T S ####[facility] PATHOLOGY [id number] [place], ABO and Rh group Nom (Bld) No Previous Results Normal [facility] Comment on above: Performed By: #### T S ####S PATHOLOGY [id number] [place], ABSC INT Negative Normal [facility] Comment on above: Performed By: #### T S ####[facility] PATHOLOGY [id number] [place], XR ANKLE LEFTon 02-06-2021 XR ANKLE [...] RIGHT Normal [facility] Dermatopathologyon Dermatopathology [facility] Dermatopathology Laboratory [address] [place] [id number] DERMATOPATHOLOGY REPORT Name:CHOCO ACUNA [facility]. Rec #. [id number] Location: [facility] Date of Procedure: 04/05/2020 Race: Date Received: 04/09/2020 /Sex: 1945 (Age: 74) / M Date Reported: 04/10/2020 Other: Submitting Physician:VICTORINA WILKS MD FINAL DIAGNOSIS SKIN, L CHEEK, BIOPSY: ACTINIC KERATOSIS WITH ADNEXAL INVOLVEMENT, PRESENT ON THE DEEP AND PERIPHERAL MARGIN. Electronically Signed Out by BROCK OTT M.D. Electronically Signed Out By BROCK OTT MD/[facility] By the signature on this report, the individual or group listed as making the Final Interpretation/Diagn osis certifies that they have reviewed this case. Clinical History: 1.0x0.8cm AK vs. SCC. Biopsy. Specimens Submitted As: A: SKIN, L CHEEK Gross Description: Received in formalin is a huang piece of skin measuring 5o3t3tu. The specimen is inked and embedded in [...] The dermis shows elastotic actinic damage. Normal [facility] Comment on above: Performed By: #### D #### Dermatopathology Vital Signs Date Time Vital Sign Value Performing Clinician Faci lity 10-15-2023 13:16050 Body height 180.3 cm Gigi BARRIENTOSM Work Phone: [facility] 10-15-2023 13:16050 Body mass index (BMI) [Ratio] 29.57 kg/m2 Gigi Yu DPM Work Phone: [facility] 10-15-2023 13:16050 Body weight 96.16 kg Gigi Yu DPM Work Phone: [facility] 10-15-2023 13:16-0500 Diastolic blood pressure 81 mm[Hg] Gigi Yu DPM Work Phone: [facility] 10-15-2023 13:16-0500 Heart rate 88 /min Gigi Yu DPM Work Phone: [facility] 10-15-2023 13:16-0500 Systolic blood pressure 130 mm[Hg] Gigi Yu DPM Work Phone: [facility] Encounters Encounter Date Encounter Type [...] Start: 11-30-2023 End: 12-01-2023 ambulatory SWAPNA FONSECA Facility:[facility] Start: 11-30-2023 End: 11-30-2023 Patient encounter procedure Lincoln MATTHEWS [facility] Start: 10-15-2023 Chart abstracting Gigi husain DPM Work Phone: [facility] Start: 10-15-2023 End: 10-15-2023 Office outpatient visit 15 minutes Gigi Yu DPM Work Phone: [facility] Comment on above: Venous insufficiency (Primary Dx); Other polyneuropathy; Onychomycosis; Toe pain, right; Toe pain, left; DJD (degenerative joint disease), ankle and foot, left Start: 10-15-2023 End: 10-15-2023 ambulatory GIGI YU Not Available Start: 09-17-2023 ambulatory SWAPNA FONSECA Facility :[facility] Start: 09-10-2023 End: 09-10-2023 ambulatory KARTHIK IRELAND Not Available Start: 02-12-2023 End: 09-10-2023 Patient encounter procedure Gigi Yu DPRajiv Work Phone: [facility] Start: 11-10-2022 End: 11-11-[address] KARTHIK [...] Start: 02-06-2021 End: 02-06-2021 ambulatory UNKNOWN PROVIDER Facility:[facility] Procedures Date Procedure Procedure Detail Performing Clinician Start: 07-08-[address] RADHA IRELAND Comment on above: Performed By: #### P PEYTON VENTURA, RENEA #### [facility] [address] [place] [address] Dr. Karen Marie Colonoscopy Lincoln MATTHEWS Extraction [...] IM [address] [place] [address] Karthik Ireland, DO [address] [facility] [address] [place] [address] [facility] Start: 10-15-2023 End: 10-15-2023 Patient encounter procedure 10/15/2023 1:30 PM EST Procedure Visit [facility] [address] [facility] [address] [place] [address] Gigi Yu, DPM [address] [facility] [address] [place] [address] [facility] Immunizations Immunization Date Immunization Notes Care Provider Fa cility 08-18-2023 Pneumococcal Conjuga te PCV 20 Gigi Yu DPM Work Phone: [facility] 05-11-2023 Influenza, Seasonal, Quadrivalent, Adjuvanted Gigi Yu DPM Work Phone: [facility] Payers Date Payer Category Payer Medicare [facility] MEDICARE ADVANTAGE [facility] MEDICARE ADVANTAGE [id number] 2019-Present [address] [place] [address] [id number] 2018 Medicaid MEDICAID [place] [employer] [id number] 2018-Present [phone] [address] [place] [address] Medicaid [id number] [id number] 1959 Medicaid [id number] 1959 Medicare [id number] 1945 Unknown [id number] 2.16.840.1.997038.3.579.2.732 1945 Unknown [id number] 2.16.840.1.642441.3.579.2.73 1945 Unknown [id number] 2.16.840.1.182519.3.579.2.732 1945 Unknown [id number] 2.16.840.1.113094.3.579.2.732 1945 Unknown [id number] 2.16.840.1.017446.3.579.2.732 1945 Unknown [id number] 2.16.840.1.212990.3.579.2.732 1945 Unknown [id number] 2.16.840.1.216878.3.579.2.732 1945 Unknown [id number] 2.16.840.1.742051.3.579.2.732 1945 Unknown [id number] 2.16.840.1.291140.3.579.2.732 1945 Unknown [id number] 2.16.840.1.899717.3.579.2.732 1945 Unknown [id number] 2.16.840.1.255191.3.579.2.732 1945 Unknown [id number] 2.16.840.1.812744.3.579.2.732 1945 Unknown [id number] 2.16.840.1.789610.3.579.2.73 1945 Unknown [id number] 2.16.840.1.959407.3.579.2. 1945 Unknown [id number] 2.16.840.1.646696.3.579.2. 1945 Unknown [id number] 2.16.840.1.684938.3.579.2. 1945 Unknown [id number] 2.16.840.1.132666.3.579.2. 1945 Unknown [id number] 2.16.840.1.220361.3.579.2 1945 Unknown [id number] 2.16.840.1.678154.3.579.2 1945 Unknown [id number] 2.16.840.1.274607.3.579.2 1945 Unknown [id number] 2.16.840.1.003015.3.579.2 1945 Unknown [id number] 2.16.840.1.931736.3.579.2 1945 Unknown [id number] 2.16.840.1.136020.3.579.2. 1945 Unknown [id number] 2.16.840.1.276163.3.579.2. 1945 Unknown [id number] 2.16.840.1.498362.3.579.2. 1945 Unknown [id number] 2.16.840.1.176698.3.579.2. 1945 Unknown [id number] 2.16.840.1.235193.3.579.2 1945 Unknown [id number] 2.16.840.1.319061.3.579.2.732 1945 Unknown [id number] 2.16.840.1.300834.3.579.2.732 1945 Unknown [id number] 2.16.840.1.915269.3.579.2.732 1945 Unknown [id number] 2.16.840.1.092505.3.579.2.73 1945 Unknown [id number] 2.16.840.1.608562.3.579.2.73 1945 Unknown [id number] 2.16.840.1.124719.3.579.2.73 1945 Unknown [id number] 2.16.840.1.975920.3.579.2.73 1945 Unknown [id number] 2.16.840.1.342206.3.579.2.73 1945 Unknown [id number] 2.16.840.1.008273.3.579.2.732 1945 Unknown [id number] 2.16.840.1.284876.3.579.2.732 1946 Unknown [id number] 2.16.840.1.278346.3.579.2.73 1945 Unknown [id number] 2.16.840.1.421161.3.579.2.73 1945 Unknown [id number] 2.16.840.1.025060.3.579.2.732 1945 Unknown [id number] 2.16.840.1.670224.3.579.2.73 1945 Unknown [id number] 2.16.840.1.418029.3.579.2.593 1945 Unknown [id number] 2.16.840.1.850318.3.579.2.593 1945 Unknown [id number] 2.16.840.1.894005.3.579.2.593 1945 Unknown [id number] 2.16.840.1.438201.3.579.2.727 1945 Unknown [id number] 2.16.840.1.242117.3.579.2.1259 1946 Unknown [id number] 2.16.840.1.250140.3.579.2.1259 1946 Unknown [id number] 2.16.840.1.024982.3.579.2.1259 1946 Unknown [id number] 2.16.840.1.061757.3.579.2.1259 1946 Unknown [id number] 2.16.840.1.595332.3.579.2.1259 1946 Unknown [id number] 2.16.840.1.301268.3.579.2.1259 1945 Unknown [id number] 2.16.840.1.336820.3.579.2.1259 1945 Unknown [id number] 2.16.840.1.815058.3.579.2.1259 Social History Date Type Detail Facility Start: 02-12-2023 Tobacco smoking stat [facility] Ex-smoker [facility] End: 07-11-2021 History of [...] Alcohol Comment Caffeine: 1-2 cups/day tea, 7up [facility] Start: 1945 Sex Assigned At Not on file N [facility] Start: 03-26-2020 Tobacco smoking status Never s moked tobacco (finding) [facility] Tobacco smoking status Never Chrissie [facility] History of Present illness Narrative 10-15-2023 Gigi [...] edema. Discussed condition in detail. Recommendation for jpdh-kqv-rgcaojv compression stockings at this time and may consider prescription stockings in the future. Patient is to begin with twil-wdk-icrawbd compression stockings and discussed where to purchase today Gigi Yu DPM documented in this encounter [facility] Discharge instructions 09-15-2023 Note Date & Type Note Facility 09-15-2023 Hospital Discharg e instructions Follow Up Care 09/15/2023 10:44:19 With:BYRON MCCLOUD, Lincoln Patricia, URL Address: [facility] [address] [place] [phone] When: Unknown [facility] Discharge summary note 02-28-2021 Note Date & Type Note Facility 02-28-2021 Note [facility] Clinical Note 02-07-2021 Note Date & Type Note Facility 02-07-2021 Note Problem: Restraint: Goal: Remain safe while in restraints and once discontinued Outcome: Progressing Restraints needed to maintain safety/airway [facility] Evaluation + Plan note Note Date & Type Note Facility Evaluation + Plan note No data available for this section [facility] Evaluation note Note Date & Type [...] available for this section [facility] Summary Purpose Family History No Family History [...] section and content) DATE CREATED AUTHOR 04/11/2020 [facility] DATE CREATED AUTHOR AUTHOR'S ORGANIZ ATION 09/23/2021 [facility] DATE CREATED AUTHOR AUTHOR'S ORGANIZ ATION 10/07/2021 [facility] DATE CREATED AUTHOR AUTHOR'S ORGANIZ ATION 10/18/2021 [facility] dical Specialist DATE CREATED AUTHOR AUTHOR'S ORGANIZ ATION 11/17/2022 [facility] DATE CREATED AUTHOR AUTHOR'S ORGANIZ ATION 12/01/2023 [facility] DATE CREATED AUTHOR AUTHOR'S ORGANIZ ATION 04/07/2024 [facility] dical Specialists EPIC Care Teams (unrecognized sec tion and content) Senior Sales Associate Relationship Specialty Start Date End Date Karthik Ireland DO [address] [place] [address] PCP - General Internal Medicine 01/29/23 Karthik Ireland DO [address] [place] [address] PCP - Toña TELLEZ 05/01/23 Senior Sales Associate Relationship Specialty Start Date End Date Karthik Ireland DO [address] [place] [address] PCP - General Internal Medicine 01/29/23 Karthik Ireland DO [address] [place] [address] PCP - Toña TELLEZ 05/01/23 Reason for [...] BE BASED ON THE PRIMARY CLINICAL RECORDS. [employer] provides no warranty or guarantee of the accuracy or completeness of information in this document.
[2024-04-17 08:11] LABS: Basophils Percent Auto 0.5 % (0.2-2.0); Eosinophils Absolute Auto 0.1 10^3/uL (0.0-0.7); Eosinophils Percent Auto 2.3 % (0.9-7.0); Hematocrit 37.9 % (42.0-54.0); Hemoglobin 12.1 g/dL (14.0-18.0); Immature Granulocytes Abs Auto 0.01 10^3/uL (0.00-0.03); Immature Granulocytes Pct Auto 0.2 % (0.0-0.5); Lymphocytes Absolute Auto 1.3 10^3/uL (1.2-3.8); Lymphocytes Percent Auto 29.5 % (20.5-60.0); Mean Corpuscular HGB Conc 31.9 g/dL (29.9-35.2); Mean Corpuscular Hemoglobin 29.8 pg (25.9-34.0); Mean Corpuscular Volume 93.3 fL (80.0-94.0); Mean Platelet Volume 12.8 fL (9.5-13.5); Monocytes Absolute Auto 0.8 10^3/uL (0.3-0.8); Monocytes Percent Auto 18.7 % (1.7-12.0); Neutrophils Absolute Auto 2.1 10^3/uL (1.4-6.5); Neutrophils Percent Auto 48.8 % (43.0-75.0); Platelet Count 107 10^3/uL (150-450); Red Blood Count 4.06 10^6/uL (4.70-6.10); Red Cell Distribution Width 14.6 % (11.0-15.0); White Blood Count 4.3 10^3/uL (4.0-11.0)
[2024-04-17 08:26] LABS: INR 1.16; Partial Thromboplastin Time 25.4 sec (22.3-36.2); Prothrombin Time 12.1 sec (9.0-11.6)
[2024-04-17] MEDS: OMEPRAZOLE 40 MG CAPSULE.DR PO (08:33)
[2024-04-17] MEDS: TAMSULOSIN HCL 0.4 MG CAPSULE PO (08:33)
[2024-04-17] MEDS: ASPIRIN 81 MG TAB.CHEW PO (08:33)
[2024-04-17] MEDS: CHOLECALCIFEROL (VITAMIN D3) 25 MCG/1,000 UNITS TABLET PO (08:33)
[2024-04-17] MEDS: FUROSEMIDE 20 MG TABLET PO (08:33)
[2024-04-17] MEDS: ATORVASTATIN CALCIUM 20 MG TABLET PO (08:33)
[2024-04-17] MEDS: GABAPENTIN 300 MG CAPSULE PO ×2 (08:33→22:34)
[2024-04-17] MEDS: TIZANIDINE HCL 4 MG TABLET PO ×2 (08:34→22:34)
[2024-04-17] MEDS: METOPROLOL TARTRATE 25 MG TABLET PO (08:34)
[2024-04-17] MEDS: APIXABAN 5 MG TABLET PO ×2 (08:34→22:35)
[2024-04-17] MEDS: CALCIUM CARBONATE 600 MG TABLET PO (08:34)
[2024-04-17 08:37] LABS: Alanine Aminotransferase 16 U/L (16-63); Albumin Level 2.7 g/dL (3.4-5.0); Alkaline Phosphatase 58 U/L (46-116); Anion Gap 9.5; Aspartate Amino Transferase 17 U/L (15-37); Bilirubin Total 0.8 mg/dL (0.2-1.0); Carbon Dioxide 30.6 mmol/L (21.0-32.0); Chloride 105 mmol/L (98-107); Estimated GFR (African America >60 (>=60); Estimated GFR (Non-African Ame 54 (>=60); Globulin 2.6 g/dL; Glucose 90 mg/dL (74-106); Phosphorus 3.2 mg/dL (2.6-4.7); Potassium 3.1 mmol/L (3.5-5.1); Sodium 142 mmol/L (136-145); Total Protein 5.3 g/dL (6.4-8.2)
[2024-04-17] MEDS: VANCOMYCIN HCL 1,000 MG in 0.9 % SODIUM CHLORIDE 250 ML 250 MG IV (09:39)
[2024-04-17] MEDS: FUROSEMIDE 40 MG/4 ML VIAL IVP ×2 (09:39→22:33)
--- OUTSIDE RECORDS SUMMARY | 2024-04-17 10:03 | XMS_ITS | CCD ---
Author Organization [facility] Care Team Providers Care Coffee Sampler Name Role Phone PROVIDER, UNKNOWN Attending Unavailable [...] SURGERY NEURO Consulting Unavai lable REQUEST, IP HEAD PASTRY CHEF SERVICE Consul ting Unavailable CONSULT, IP CARDIOLOGY ELECTROPHYSIOLOGY (EP) Co nsulting Unavailable REQUEST, IP BRAND MANAGER SERVICE Consulting Unavaila ble CONSULT, IP DENTISTRY [...] Unavailable Karthik Ireland DO Primary Care Provider [phone] Karthik Ireland DO Unavailable [phone] KARTHIK IRELAND Primary Care Physician Unavail able [...] adverse reactions to drug (disorder) 1 [facility] (1 source) Sulfonamides (Antibiotic) Drug allergy (disorder) 4 [facility] (2 sources) Sulfonamides (Antibiotic) Drug Allergy 3 [facility] (2 sources) Sulfamethoxazole ; Translations: [sulfamethoxazol e] Drug Allergy Unknown (qualifier value) [facility] (2 sources) Unable to obtain; Translations: [Unable to obtain] Drug allergy [facility] Medications Current Medications Medication Drug Class(es) Dates Sig (Normalized) Sig (Original) [id number] 200 actuat albuterol 0.09 mg/actuat metered dose [...] MCG (1000 UT) tablet Indications: Mixed hyperlipidemia ([facility]) TAKE 1 TABLET BY MOUTH [...] disease (4 sources) Atherosclerotic heart disease of [place] coronary artery without angina pectoris; Translations: [Coronary [...] 07-13-2022 Episodic Other aftercare (1 source) Other longterm (current) drug therapy; Translations: [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 Karen Marie Basophils/100 WBC (Bld) 0.4 % Normal 0.2-2.0 [facility] Comment on above: Performed By: #### C BC #### [facility] [address] [place] [address] Dr. Karen Marie EO # 0.1 103/ul Normal 0.0-0.7 [facility] Comment on above: Performed By: #### C BC #### [facility] [address] [place] [address] Dr. Karen Marie Eosinophils/100 WBC (Bld) 1.9 % Normal 0.9-7.0 [facility] Comment on above: Performed By: #### C BC #### [facility] [address] [place] [address] Dr. Karen Marie Erythrocyte distribution width (RBC) [Ratio] 16.1 % Critically high 11.0-15.0 [facility] Comment on above: Performed By: #### C BC #### [facility] [address] [place] [address] Dr. Karen Marie Hematocrit (Bld) [Volume fraction] 42.5 % Normal 42.0-54.0 [facility] Comment on above: Performed By: #### C BC #### [facility] [address] [place] [address] Dr. Karen Marie Hemoglobin (Bld) [Mass/Vol] 13.5 g/dL Critically low 14.0-18.0 [facility] Comment on above: Performed By: #### C BC #### [facility] [address] [place] [address] Dr. Karen Marie IG # 0.03 10e3/ul Normal 0.00-0.03 [facility] Comment on above: Performed By: #### C BC #### [facility] [address] [place] [address] Dr. Karen Marie IG % 0.4 % Normal 0.0-0.5 [facility] Comment on above: Performed By: #### C BC #### [facility] [address] [place] [address] Dr. Karen Marie LYMPH # 1.7 103/ul Normal 1.2-3.8 [facility] Comment on above: Performed By: #### C BC #### [facility] [address] [place] [address] Dr. Karen Marie Lymphocytes/100 WBC (Bld) 22.3 % Normal 20.5-60.0 [facility] Comment on above: Performed By: #### C BC #### [facility] [address] [place] [address] Dr. Karen Marie MANUAL DIFF REQ NO Normal [facility] Comment on above: Performed By: #### C BC #### [facility] [address] [place] [address] Dr. Karen Marie MCH (RBC) [Entitic mass] 27.8 pg Normal 25.9-34.0 [facility] Comment on above: Performed By: #### C BC #### [facility] [address] [place] [address] Dr. Karen Marie MCHC (RBC) [Mass/Vol] 31.8 g/dL Normal 29.9-35.2 [facility] Comment on above: Performed By: #### C BC #### [facility] [address] [place] [address] Dr. Karen Marie MCV (RBC) [Entitic vol] 87.4 fL Normal 80.0-94.0 [facility] Comment on above: Performed By: #### C BC #### [facility] [address] [address] [address] Karen Marie MONO # 0.9 103/ul Critically high 0.3-0.8 [facility] Comment on above: Performed By: #### C BC #### [facility] [address] [place] [address] Dr. Karen Marie Monocytes/100 WBC (Bld) 11.4 % Normal 1.7-12.0 [facility] Comment on above: Performed By: #### C BC #### [facility] [address] [place] [address] Dr. Karen Marie NEUT # 4.7 103/ul Normal 1.4-6.5 [facility] Comment on above: Performed By: #### C BC #### [facility] [address] [place] [address] Dr. Karen Marie Neutrophils/100 WBC (Bld) 63.6 % Normal 43.0-75.0 [facility] Comment on above: Performed By: #### C BC #### [facility] [address] [place] [address] Dr. Karen Marie Platelet mean volume (Bld) [Entitic vol] 11.9 fL Normal 9.5-13.5 [facility] Comment on above: Performed By: #### C BC #### [facility] [address] [place] [address] Dr. Karen Marie PLT 162 103/ul Normal 150-450 [facility] Comment on above: Performed By: #### C BC #### [facility] [address] [place] [address] Dr. Karen Marie RBC 4.86 106/ul Normal 4.70-6.10 [facility] Comment on above: Performed By: #### C BC #### [facility] [address] [place] [address] Dr. Karen Marie WBC 7.4 103/ul Normal 4.0-11.0 [facility] Comment on above: Performed By: #### C BC #### [facility] [address] [place] [address] Dr. Karen Marie PROF 14(COMP METB)on 023 Albumin [Mass/Vol] 3.8 g/dL Normal 3.4-5.[address] [facility] Comment on above: Performed By: #### P SAD, FERR, FETIBC #### [facility] [address] [place] [address] Dr. Karen Marie Albumin/Globulin [Mass ratio] 1.1 {ratio} Normal [facility] Comment on above: Performed By: #### P SAD, FERR, FETIBC #### [facility] [address] [place] [address] Dr. Karen Marie ALP [Catalytic activity/Vol] 79 U/L Normal 46-116 [facility] Comment on above: Performed By: #### P SAD, FERR, FETIBC #### [facility] [address] [place] [address] Dr. Karen Marie ALT [Catalytic activity/Vol] 15 U/L Critically low 16-63 [facility] Comment on above: Performed By: #### P SAD, FERR, FETIBC #### [facility] [address] [place] [address] Dr. Karen Marie Anion gap [Moles/Vol] 12.3 mmol/L Normal [facility] Comment on above: Performed By: #### P SAD, FERR, FETIBC #### [facility] [address] [place] [address] Dr. Karen Marie AST [Catalytic activity/Vol] 17 U/L Normal 15-37 [facility] Comment on above: Performed By: #### P SAD, FERR, FETIBC #### [facility] [address] [address] [address] Karen Marie Bilirubin [Mass/Vol] 0.9 mg/dL Normal 0.2-1.0 [facility] Comment on above: Performed By: #### P SAD, FERR, FETIBC #### [facility] [address] [address] [address] Karen Marie Calcium [Mass/Vol] 9.3 mg/dL Normal 8.5-10.[address] [facility] Comment on above: Performed By: #### P SAD, FERR, FETIBC #### [facility] [address] [address] [address] Karen Marie Chloride [Moles/Vol] 103 mmol/L Normal 98-107 [facility] Comment on above: Performed By: #### P SAD, FERR, FETIBC #### [facility] [address] [place] [address] Dr. Karen Marie CO2 [Moles/Vol] 30.7 mmol/L Normal 21.0-32.0 [facility] Comment on above: Performed By: #### P SAD, FERR, FETIBC #### [facility] [address] [address] [address] Karen Marie Creatinine [Mass/Vol] 1.37 mg/dL Critically high 0.70-1.30 [facility] Comment on above: Performed By: #### P SAD, FERR, FETIBC #### [facility] [address] [address] [address] Karen Marie EGFR-AF JAMAICAN >60 Normal >=60 [facility] Comment on above: Performed By: #### P SAD, FERR, FETIBC #### [facility] [address] [address] [address] Karen Marie EGFR-NON AF [place] 51 mL/min/1.73m2 Critically low >=60 [facility] Comment on above: Performed By: #### P SAD, FERR, FETIBC #### [facility] [address] [address] [address] Karen Marie Globulin (S) [Mass/Vol] 3.5 g/dL Normal [facility] Comment on above: Performed By: #### P SAD, FERR, FETIBC #### [facility] [address] [address] [address] Karen Marie Glucose [Mass/Vol] 102 mg/dL Normal 74-[address] [facility] Comment on above: Performed By: #### P SAD, FERR, FETIBC #### [facility] [address] [place] [address] Dr. Karen Marie Potassium [Moles/Vol] 4.0 mmol/L Normal 3.5-5.1 [facility] Comment on above: Performed By: #### P SAD FERR, FETIBC #### [facility] [address] [place] [address] Dr. Karen Marie Protein [Mass/Vol] 7.3 g/dL Normal 6.4-8.[address] [facility] Comment on above: Performed By: #### P SAD FERR, FETIBC #### [facility] [address] [place] [address] Dr. Karen Marie Sodium [Moles/Vol] 142 mmol/L Normal 136-[address] [facility] Comment on above: Performed By: #### P SAD FERR, FETIBC #### [facility] [address] [place] [address] Dr. Karen Marie Urea nitrogen [Mass/Vol] 16.0 mg/dL Normal 7.0-18.0 [facility] Comment on above: Performed By: #### P SAD, FERR, FETIBC #### [facility] [address] [place] [address] Dr. Karen Marie Urea nitrogen/Creatinine [Mass ratio] 11.7 mg/mg Normal [facility] Comment on above: Performed By: #### P SAD, FERR, FETIBC #### [facility] [address] [place] [address] Dr. Karen Marie URIC ACID SERUMon 11-10-2022 Urate [Mass/Vol] 8.9 mg/dL Critically high 3.5-7.2 [facility] Comment on above: Performed By: #### P SAD, FERR, FETIBC #### [facility] [address] [place] [address] Dr. Karen Marie CBC AUTO DIFFon 07-08-2022 BASO # 0.0 103/ul Normal 0.0-0.1 [facility] Comment on above: Performed By: #### P SAD, FERR, FETIBC #### [facility] [address] [place] [address] Dr. Karen Marie Basophils/100 WBC (Bld) 0.4 % Normal 0.2-2.0 [facility] Comment on above: Performed By: #### P SAD, FERR, FETIBC #### [facility] [address] [place] [address] Dr. Karen Marie EO # 0.1 103/ul Normal 0.0-0.7 [facility] Comment on above: Performed By: #### P SAD, FERR, FETIBC #### [facility] [address] [place] [address] Dr. Karen Marie Eosinophils/100 WBC (Bld) 1.7 % Normal 0.9-7.0 [facility] Comment on above: Performed By: #### P SAD, FERR, FETIBC #### [facility] [address] [place] [address] Dr. Karen Marie Erythrocyte distribution width (RBC) [Ratio] 13.6 % Normal 11.0-15.0 [facility] Comment on above: Performed By: #### P SAD, FERR, FETIBC #### [facility] [address] [place] [address] Dr. Karen Marie Hematocrit (Bld) [Volume fraction] 43.3 % Normal 42.0-54.0 [facility] Comment on above: Performed By: #### P SAD, FERR, FETIBC #### [facility] [address] [place] [address] Dr. Karen Marie Hemoglobin (Bld) [Mass/Vol] 14.3 g/dL Normal 14.0-18.0 [facility] Comment on above: Performed By: #### P SAD, FERR, FETIBC #### [facility] [address] [address] [address] Karen Marie IG # 0.01 10e3/ul Normal 0.00-0.03 [facility] Comment on above: Performed By: #### P SAD, FERR, FETIBC #### [facility] [address] [place] [address] Dr. Karen Marie IG % 0.1 % Normal 0.0-0.5 [facility] Comment on above: Performed By: #### P SAD, FERR, FETIBC #### [facility] [address] [place] [address] Dr. Karen Marie LYMPH # 1.9 103/ul Normal 1.2-3.8 [facility] Comment on above: Performed By: #### P SAD, FERR, FETIBC #### [facility] [address] [place] [address] Dr. Karen Marie Lymphocytes/100 WBC (Bld) 27.7 % Normal 20.5-60.0 [facility] Comment on above: Performed By: #### P SAD, FERR, FETIBC #### [facility] [address] [place] [address] Dr. Karen Marie MANUAL DIFF REQ NO Normal [facility] Comment on above: Performed By: #### P SAD, FERR, FETIBC #### [facility] [address] [place] [address] Dr. Karen Marie MCH (RBC) [Entitic mass] 29.9 pg Normal 25.9-34.0 [facility] Comment on above: Performed By: #### P SAD, FERR, FETIBC #### [facility] [address] [place] [address] Dr. Karen Marie MCHC (RBC) [Mass/Vol] 33.0 g/dL Normal 29.9-35.2 [facility] Comment on above: Performed By: #### P SAD, FERR, FETIBC #### [facility] [address] [place] [address] Dr. Karen Marie MCV (RBC) [Entitic vol] 90.6 fL Normal 80.0-94.0 [facility] Comment on above: Performed By: #### P SAD, FERR, FETIBC #### [facility] [address] [place] [address] Dr. Karen Marie MONO # 0.8 103/ul Normal 0.3-0.8 [facility] Comment on above: Performed By: #### P SAD, FERR, FETIBC #### [facility] [address] [place] [address] Dr. Karen Marie Monocytes/100 WBC (Bld) 11.1 % Normal 1.7-12.0 [facility] Comment on above: Performed By: #### P SAD, FERR, FETIBC #### [facility] [address] [place] [address] Dr. Karen Marie NEUT # 4.1 103/ul Normal 1.4-6.5 [facility] Comment on above: Performed By: #### P SAD, FERR, FETIBC #### [facility] [address] [place] [address] Dr. Karen Marie Neutrophils/100 WBC (Bld) 59.0 % Normal 43.0-75.0 [facility] Comment on above: Performed By: #### P SAD, FERR, FETIBC #### [facility] [address] [place] [address] Dr. Karen Marie Platelet mean volume (Bld) [Entitic vol] 11.3 fL Normal 9.5-13.5 [facility] Comment on above: Performed By: #### P SAD, FERR, FETIBC #### [facility] [address] [place] [address] Dr. Karen Marie PLT 175 103/ul Normal 150-450 [facility] Comment on above: Performed By: #### P SAD, FERR, FETIBC #### [facility] [address] [place] [address] Dr. Karen Marie RBC 4.78 106/ul Normal 4.70-6.10 [facility] Comment on above: Performed By: #### P SAD, FERR, FETIBC #### [facility] [address] [address] [address] Karen Marie WBC 7.0 103/ul Normal 4.0-11.0 [facility] Comment on above: Performed By: #### P SAD, FERR, FETIBC #### [facility] [address] [address] [address] Karen Marie FERRITINon 07-08-2022 Ferritin [Mass/Vol] 43.0 ng/mL Normal 26.0-388.0 The [facility] Comment on above: Performed By: #### P SAD, FERR, FETIBC #### [facility] [address] [place] [address] Dr. Karen Marie IRON AND TIBCon 07-08-2022 % SATURATION 12.7 % Normal [facility] Comment on above: Performed By: #### P SAD, FERR, FETIBC #### [facility] [address] [place] [address] Dr. Karen Marie Iron [Mass/Vol] 46.0 ug/dL Critically low 65.0-175.0 The [facility] Comment on above: Performed By: #### P SAD, FERR, FETIBC #### [facility] [address] [place] [address] Dr. Karen Marie TIBC DIRECT 363.0 ug/dL Normal 250.0-450.0 [facility] Comment on above: Performed By: #### P SAD, FERR, FETIBC #### [facility] [address] [place] [address] Dr. Karen Marie LIPID PROFILEon 07-08-2022 CHOL-HDL RATIO NORM SEE BELOW Normal The [facility] Comment on above: Result Comment: 3.3 - 4.4 LOW RISK 4.4 - 7.1 AVERAGE RISK 7.1 - 11.0 MODERATE RISK >11.0 HIGH RISK Performed By: #### L IPID, CMP, URIC, TSH #### [facility] [address] [place] [address] Dr. Karen Marie Cholesterol [Mass/Vol] 131 mg/dL Normal <=200 [facility] Comment on above: Performed By: #### L IPID, CMP, URIC, TSH #### [facility] [address] [address] [address] Karen Marie Cholesterol in HDL [Mass/Vol] 52 mg/dL Normal 40-60 [facility] Comment on above: Performed By: #### L IPID, CMP, URIC, TSH #### [facility] [address] [address] [address] Karen Marie Cholesterol in LDL [Mass/Vol] 59.2 mg/dL Normal [facility] Comment on above: Performed By: #### L IPID, CMP, URIC, TSH #### [facility] [address] [address] [address] Karen Marie Cholesterol.total/Chol esterol in HDL [Mass ratio] 2.5 {ratio} Normal [facility] Comment on above: Performed By: #### L IPID, CMP, URIC, TSH #### [facility] [address] [address] [address] Karen Marie HDL NORMAL > or = 60 mg/dl - LOW CARDIOVASCULAR RISK <40 mg/dl - HIGH CARDIOVASCULAR RISK Normal [facility] Comment on above: Performed By: #### L IPID, CMP, URIC, TSH #### [facility] [address] [address] [address] Karen Marie LDL CALC NORMAL SEE BELOW Normal [facility] Comment on above: Result Comment: <100 mg/dl OPTIMAL 100 - 129 mg/dl NEAR OR ABOVE OPTIMAL 130 - 159 mg/dl BORDERLINE HIGH 160 - 189 mg/dl HIGH >190 mg/dl VERY HIGH Performed By: #### L IPID, CMP, URIC, TSH #### [facility] [address] [address] [address] Karen Marie Triglyceride [Mass/Vol] 99 mg/dL Normal <=150 [facility] Comment on above: Performed By: #### L IPID, CMP, URIC, TSH #### [facility] [address] [address] [address] Karen Marie VLDL CALC 19.8 mg/dL Normal [facility] Comment on above: Performed By: #### L IPID, CMP, URIC, TSH #### [facility] [address] [place] [address] Dr. Karen Marie PROF 14(COMP METB)on 022 Albumin [Mass/Vol] 3.5 g/dL Normal 3.4-5.[address] [facility] Comment on above: Performed By: #### L IPID, CMP, URIC, TSH #### [facility] [address] [place] [address] Dr. Karen Marie Albumin/Globulin [Mass ratio] 0.9 {ratio} Normal [facility] Comment on above: Performed By: #### L IPID, CMP, URIC, TSH #### [facility] [address] [place] [address] Dr. Karen Marie ALP [Catalytic activity/Vol] 83 U/L Normal 46-116 [facility] Comment on above: Performed By: #### L IPID, CMP, URIC, TSH #### [facility] [address] [place] [address] Dr. Karen Marie ALT [Catalytic activity/Vol] 13 U/L Critically low 16-63 [facility] Comment on above: Performed By: #### L IPID, CMP, URIC, TSH #### [facility] [address] [place] [address] Dr. Karen Marie Anion gap [Moles/Vol] 6.9 mmol/L Normal [facility] Comment on above: Performed By: #### L IPID, CMP, URIC, TSH #### [facility] [address] [place] [address] Dr. Karen Marie AST [Catalytic activity/Vol] 25 U/L Normal 15-37 [facility] Comment on above: Performed By: #### L IPID, CMP, URIC, TSH #### [facility] [address] [place] [address] Dr. Karen Marie Bilirubin [Mass/Vol] 0.5 mg/dL Normal 0.2-1.0 [facility] Comment on above: Performed By: #### L IPID, CMP, URIC, TSH #### [facility] [address] [address] [address] Karen Marie Calcium [Mass/Vol] 9.9 mg/dL Normal 8.5-10.[address] [facility] Comment on above: Performed By: #### L IPID, CMP, URIC, TSH #### [facility] [address] [address] [address] Karen Marie Chloride [Moles/Vol] 101 mmol/L Normal 98-107 [facility] Comment on above: Performed By: #### L IPID, CMP, URIC, TSH #### [facility] [address] [address] [address] Karen Marie CO2 [Moles/Vol] 31.5 mmol/L Normal 21.0-32.0 [facility] Comment on above: Performed By: #### L IPID, CMP, URIC, TSH #### [facility] [address] [place] [address] Dr. Karen Marie Creatinine [Mass/Vol] 1.51 mg/dL Critically high 0.70-1.30 [facility] Comment on above: Performed By: #### L IPID, CMP, URIC, TSH #### [facility] [address] [address] [address] Karen Marie EGFR-AF [place] 55 mL/min/1.73m2 Critically low >=60 [facility] Comment on above: Performed By: #### L IPID, CMP, URIC, TSH #### [facility] [address] [address] [address] Karen Marie EGFR-NON AF [place] 45 mL/min/1.73m2 Critically low >=60 [facility] Comment on above: Performed By: #### L IPID, CMP, URIC, TSH #### [facility] [address] [address] [address] Karen Marie Globulin (S) [Mass/Vol] 3.9 g/dL Normal [facility] Comment on above: Performed By: #### L IPID, CMP, URIC, TSH #### [facility] [address] [address] [address] Karen Marie Glucose [Mass/Vol] 124 mg/dL Critically high 74-106 [facility] Comment on above: Performed By: #### L IPID, CMP, URIC, TSH #### [facility] [address] [place] [address] Dr. Karen Marie Potassium [Moles/Vol] 3.4 mmol/L Critically low 3.5-5.1 [facility] Comment on above: Performed By: #### L IPID, CMP, URIC, TSH #### [facility] [address] [address] [address] Karen Marie Protein [Mass/Vol] 7.4 g/dL Normal 6.4-8.[address] [facility] Comment on above: Performed By: #### L IPID, CMP, URIC, TSH #### [facility] [address] [place] [address] Dr. Karen Marie Sodium [Moles/Vol] 136 mmol/L Normal 136-[address] [facility] Comment on above: Performed By: #### L IPID, CMP, URIC, TSH #### [facility] [address] [address] [address] Karen Marie Urea nitrogen [Mass/Vol] 13.0 mg/dL Normal 7.0-18.0 [facility] Comment on above: Performed By: #### L IPID, CMP, URIC, TSH #### [facility] [address] [place] [address] Dr. Karen Marie Urea nitrogen/Creatinine [Mass ratio] 8.6 mg/mg Normal [facility] Comment on above: Performed By: #### L IPID, CMP, URIC, TSH #### [facility] [address] [place] [address] Dr. Karen Marie TSHon 07-08-2022 TSH 2.103 uIU/mL Normal 0.358-3.740 [facility] Comment on above: Performed By: #### L IPID, CMP, URIC, TSH #### [facility] [address] [place] [address] Dr. Karen Marie URIC ACID SERUMon 07-08-2022 Urate [Mass/Vol] 9.4 mg/dL Critically high 3.5-7.2 [facility] Comment on above: Performed By: #### L IPID, CMP, URIC, TSH #### [facility] [address] [place] [address] Dr. Karen Marie CBC AUTO DIFFon 02-19-2022 BASO # 0.0 103/ul Normal 0.0-0.1 [facility] Comment on above: Performed By: #### C BC #### [facility] [address] [place] [address] Dr. Karen Marie Basophils/100 WBC (Bld) 0.4 % Normal 0.2-2.0 [facility] Comment on above: Performed By: #### C BC #### [facility] [address] [place] [address] Dr. Karen Marie EO # 0.2 103/ul Normal 0.0-0.7 [facility] Comment on above: Performed By: #### C BC #### [facility] [address] [place] [address] Dr. Karen Marie Eosinophils/100 WBC (Bld) 3.2 % Normal 0.9-7.0 [facility] Comment on above: Performed By: #### C BC #### [facility] [address] [place] [address] Dr. Karen Marie Erythrocyte distribution width (RBC) [Ratio] 13.7 % Normal 11.0-15.0 [facility] Comment on above: Performed By: #### C BC #### [facility] [address] [place] [address] Dr. Karen Marie Hematocrit (Bld) [Volume fraction] 43.2 % Normal 42.0-54.0 [facility] Comment on above: Performed By: #### C BC #### [facility] [address] [place] [address] Dr. Karen Marie Hemoglobin (Bld) [Mass/Vol] 13.8 g/dL Critically low 14.0-18.0 [facility] Comment on above: Performed By: #### C BC #### [facility] [address] [place] [address] Dr. Karen Marie IG # 0.03 10e3/ul Normal 0.00-0.03 [facility] Comment on above: Performed By: #### C BC #### [facility] [address] [place] [address] Dr. Karen Marie IG % 0.4 % Normal 0.0-0.5 [facility] Comment on above: Performed By: #### C BC #### [facility] [address] [place] [address] Dr. Karen Marie LYMPH # 1.6 103/ul Normal 1.2-3.8 [facility] Comment on above: Performed By: #### C BC #### [facility] [address] [place] [address] Dr. Karen Marie Lymphocytes/100 WBC (Bld) 23.7 % Normal 20.5-60.0 [facility] Comment on above: Performed By: #### C BC #### [facility] [address] [place] [address] Dr. Karen Marie MANUAL DIFF REQ NO Normal [facility] Comment on above: Performed By: #### C BC #### [facility] [address] [place] [address] Dr. Karen Marie MCH (RBC) [Entitic mass] 30.1 pg Normal 25.9-34.0 [facility] Comment on above: Performed By: #### C BC #### [facility] [address] [place] [address] Dr. Karen Marie MCHC (RBC) [Mass/Vol] 31.9 g/dL Normal 29.9-35.2 [facility] Comment on above: Performed By: #### C BC #### [facility] [address] [place] [address] Dr. Karen Marie MCV (RBC) [Entitic vol] 94.3 fL Critically high 80.0-94.0 [facility] Comment on above: Performed By: #### C BC #### [facility] [address] [place] [address] Dr. Karen Marie MONO # 0.8 103/ul Normal 0.3-0.8 [facility] Comment on above: Performed By: #### C BC #### [facility] [address] [place] [address] Dr. Karen Marie Monocytes/100 WBC (Bld) 11.7 % Normal 1.7-12.0 [facility] Comment on above: Performed By: #### C BC #### [facility] [address] [place] [address] Dr. Karen Marie NEUT # 4.1 103/ul Normal 1.4-6.5 [facility] Comment on above: Performed By: #### C BC #### [facility] [address] [place] [address] Dr. Karen Marie Neutrophils/100 WBC (Bld) 60.6 % Normal 43.0-75.0 [facility] Comment on above: Performed By: #### C BC #### [facility] [address] [place] [address] Dr. Karen Marie Platelet mean volume (Bld) [Entitic vol] 11.9 fL Normal 9.5-13.5 [facility] Comment on above: Performed By: #### C BC #### [facility] [address] [place] [address] Dr. Karen Marie PLT 129 103/ul Critically low 150-450 [facility] Comment on above: Performed By: #### C BC #### [facility] [address] [place] [address] Dr. Karen Marie RBC 4.58 106/ul Critically low 4.70-6.10 [facility] Comment on above: Performed By: #### C BC #### [facility] [address] [place] [address] Dr. Karen Marie WBC 6.8 103/ul Normal 4.0-11.0 [facility] Comment on above: Performed By: #### C BC #### [facility] [address] [place] [address] Dr. Karen Marie PROF CHEM 8 (BAS METB)on Anion gap [Moles/Vol] 11.7 mmol/L Normal Th [facility] Comment on above: Performed By: #### B MP #### [facility] [address] [address] [address] Karen Marie Calcium [Mass/Vol] 9.3 mg/dL Normal 8.5-10.[address] [facility] Comment on above: Performed By: #### B MP #### [facility] [address] [address] [address] Karen Marie Chloride [Moles/Vol] 106 mmol/L Normal 98-107 [facility] Comment on above: Performed By: #### B MP #### [facility] [address] [place] [address] Dr. Karen Marie CO2 [Moles/Vol] 28.3 mmol/L Normal 21.0-32.0 [facility] Comment on above: Performed By: #### B MP #### [facility] [address] [address] [address] Karen Marie Creatinine [Mass/Vol] 1.49 mg/dL Critically high 0.70-1.30 [facility] Comment on above: Performed By: #### B MP #### [facility] [address] [place] [address] Dr. Karen Marie EGFR-AF JAMAICAN 56 mL/min/1.73m2 Critically low >=60 [facility] Comment on above: Performed By: #### B MP #### [facility] [address] [address] [address] Karen Marie EGFR-NON AF J[place] 46 mL/min/1.73m2 Critically low >=60 [facility] Comment on above: Performed By: #### B MP #### [facility] [address] [address] [address] Karen Marie Glucose [Mass/Vol] 101 mg/dL Normal 74-[address] [facility] Comment on above: Performed By: #### B MP #### [facility] [address] [address] [address] Karen Marie Potassium [Moles/Vol] 5.0 mmol/L Normal 3.5-5.1 [facility] Comment on above: Performed By: #### B MP #### [facility] [address] [address] [address] Karen Marie Sodium [Moles/Vol] 141 mmol/L Normal 136-[address] [facility] Comment on above: Performed By: #### B MP #### [facility] [id number] Karen Marie Urea nitrogen [Mass/Vol] 17.0 mg/dL Normal 7.0-18.0 [facility] Comment on above: Performed By: #### B MP #### [facility] [address] [address] [address] Karen Marie Urea nitrogen/Creatinine [Mass ratio] 11.4 mg/mg Normal [facility] Comment on above: Performed By: #### B MP #### [facility] [address] [address] [address] Karen Marie XR Foot Complete Left*on [...] by Wandy Lees on 10/17/2021 1252 Normal [facility] Progress Noteson 08-08-2021 [employer] Authentication Interface Message Text Called pt Jul 6 as scheduled-no ans Called pt Jul 7-no ans [facility] 06-04-2021 [employer] Authentication Interface Message Text Normal [facility] 06-03-2021 [employer] Authentication Interface Message Text Patient at risk for falls:No Falls Risk protocol implemented: Yes wheelchair in locked position when not in use for transport Normal [facility] XR ANKLE LEFT 3 VIEWSon 10-0 XR ANKLE LEFT 3 VIEWS Normal [facility] Anesthesia Attestationon [employer] Authentication Interface Message Text Normal [facility] Anesthesia Postprocedure Lucretia luationon 05-21-2021 [employer] Authentication Interface Message Text Normal [facility] Anesthesia Preprocedure Eval uationon 05-21-2021 [employer] Authentication Interface Message Text Normal [facility] Anesthesia Transfer Of Careo n 05-21-2021 [employer] Authentication Interface Message Text Normal [facility] H AND Martin 05-21-2021 [employer] Authentication Interface Message Text Normal [facility] OP Noteon 05-21-2021 [employer] Authentication Interface Message Text Normal [facility] Procedureson 05-21-2021 [employer] Authentication Interface Message Text Preop dx: L ankle fx Postop dx: same Proc; Removal pins L ankle ([id number]) Removal LLE ex fix () Comp:none Plan NWB LLE, rest, elevation RTC Oct Normal [facility] Progress Noteson 04-29-2021 [employer] Authentication Interface Message Text Patient was identified by name and date of . Mayra Trujillo Applied short leg cast and discussed cast care with patient. Normal [facility] [employer] Authentication Interface Message Text Patient was identified by name and date of . Amy Gonzalez RN Patient at risk for falls:yes Falls Risk protocol implemented: Yes wheelchair in locked position when not in use for transport Normal [facility] [employer] Authentication Interface Message Text Normal [facility] XR ANKLE LEFT 3 VIEWSon 08-3 XR ANKLE LEFT 3 VIEWS Normal [facility] Complete Blood Count Auto Di ffon 04-18-2021 Basophils (Bld) [#/Vol] 0.0 10*3/uL Normal 0.0-0.2 [facility] Comment on above: Order Comment: CAMDEN Souza FAX TO Result Comment: PERF ORMED BY: [address] [place] [address] PATHOLOGIST PROGRAM TRAINER JIANLAN SUN M.D. Performed By: #### C MP, CBC #### [address] Basophils/100 WBC (Bld) 0.5 % Normal . [facility] Comment on above: Order Comment: PLEAS E FAX TO Performed By: #### C MP, CBC #### [address] Eosinophils (Bld) [#/Vol] 0.2 10*3/uL Normal 0.0-0.45 [facility] Comment on above: Order Comment: PLEAS E FAX TO Performed By: #### C MP, CBC #### [address] Eosinophils/100 WBC (Bld) 3.4 % Normal . [facility] Comment on above: Order Comment: PLEAS E FAX TO Performed By: #### C MP, CBC #### [address] Erythrocyte distribution width (RBC) [Ratio] 15.5 % High 12.0-14.8 [facility] Comment on above: Order Comment: PLEAS E FAX TO Performed By: #### C MP, CBC #### [address] Hematocrit (Bld) [Volume fraction] 36.7 % Low 38.8-50.0 [facility] Comment on above: Order Comment: PLEAS E FAX TO Performed By: #### C MP, CBC #### [address] Hemoglobin (Bld) [Mass/Vol] 12.0 g/dL Low 13.0-17.0 [facility] Comment on above: Order Comment: PLEAS E FAX TO Performed By: #### C MP, CBC #### [address] Lymphocytes (Bld) [#/Vol] 1.8 10*3/uL Normal 1.00-4.8 [facility] Comment on above: Order Comment: PLEAS E FAX TO Performed By: #### C MP, CBC #### [address] Lymphocytes/100 WBC (Bld) 35.6 % Normal . [facility] Comment on above: Order Comment: PLEAS E FAX TO Performed By: #### C MP, CBC #### [address] MCH (RBC) [Entitic mass] 30.5 pg Normal 27.5-35.2 [facility] Comment on above: Order Comment: PLEAS E FAX TO Performed By: #### C MP, CBC #### [address] MCV (RBC) [Entitic vol] 93.1 fL Normal 83.5-101 [facility] Comment on above: Order Comment: PLEAS E FAX TO Performed By: #### C MP, CBC #### [address] Mean Corpuscular HGB Conc 32.7 g/dL Normal 32.5-35.6 [facility] Comment on above: Order Comment: PLEAS E FAX TO Performed By: #### C MP, CBC #### [place] [address] [place] Monocytes (Bld) [#/Vol] 0.7 10*3/uL Normal 0.0-0.8 [facility] Comment on above: Order Comment: PLEAS E FAX TO Performed By: #### C MP, CBC #### [place] [address] [place] Monocytes/100 WBC (Bld) 14.1 % Normal . [facility] Comment on above: Order Comment: PLEAS E FAX TO Performed By: #### C MP, CBC #### [facility] [address] [place] [address] [place] Neutrophils (Bld) [#/Vol] 2.3 10*3/uL Normal 1.8-7.7 [facility] Comment on above: Order Comment: PLEAS E FAX TO Performed By: #### C MP, CBC #### [address] Neutrophils/100 WBC (Bld) 46.4 % Normal . [facility] Comment on above: Order Comment: PLEAS E FAX TO Performed By: #### C MP, CBC #### [facility] [address] [place] [address] [place] Nucleated RBC/100 WBC (Bld) [Ratio] 0.2 % Normal 0-0.5 [facility] Comment on above: Order Comment: PLEAS E FAX TO Performed By: #### C MP, CBC #### [facility] [address] [place] [address] Platelet mean volume (Bld) [Entitic vol] 10.0 fL Normal 6.6-10.1 [facility] Comment on above: Order Comment: PLEAS E FAX TO Performed By: #### C MP, CBC #### [facility] [address] [place] [address] [place] Platelets (Bld) [#/Vol] 137 10*3/uL Low 150-450 [facility] Comment on above: Order Comment: PLEAS E FAX TO Performed By: #### C MP, CBC #### [facility] [address] [place] [address] [place] RBC (Bld) [#/Vol] 3.95 10*6/uL Normal 3.90-5.60 [facility] Comment on above: Order Comment: PLEAS E FAX TO Performed By: #### C MP, CBC #### [facility] [address] [place] [address] WBC (Bld) [#/Vol] 5.0 10*3/uL Normal 4.5-11.0 [facility] Comment on above: Order Comment: PLEAS E FAX TO Performed By: #### C MP, CBC #### [facility] [address] [place] [address] Comprehensive Metabolic Pane navin 04-18-2021 Albumin [Mass/Vol] 2.9 g/dL Low 3.2-5.5 [facility] Comment on above: Order Comment: PLEAS E FAX TO Performed By: #### C MP, CBC #### [facility] [address] [place] [address] Albumin/Globulin [Mass ratio] 1.2 {ratio} Normal [facility] Comment on above: Order Comment: PLEAS E FAX TO Performed By: #### C MP, CBC #### [facility] [address] [place] [address] ALP [Catalytic activity/Vol] 50 U/L Normal 32-92 [facility] Comment on above: Order Comment: PLEAS E FAX TO Result Comment: PERF ORMED BY: [place] [address] PATHOLOGIST PROGRAM TRAINER DAKOTAH SMITH M.D. Performed By: #### C MP, CBC #### [facility] [address] [place] [address] ALT [Catalytic activity/Vol] 12 U/L Normal 10-60 [facility] Comment on above: Order Comment: PLEAS E FAX TO Performed By: #### C MP, CBC #### [facility] [address] [place] [address] AST [Catalytic activity/Vol] 14 U/L Normal 10-42 [facility] Comment on above: Order Comment: PLEAS E FAX TO Performed By: #### C MP, CBC #### [facility] [address] Bilirubin [Mass/Vol] 0.3 mg/dL Normal 0.3-1.2 [facility] Comment on above: Order Comment: PLEAS E FAX TO Performed By: #### C MP, CBC #### [facility] [address] Calcium [Mass/Vol] 8.8 mg/dL Normal 8.2-10.2 [facility] Comment on above: Order Comment: PLEAS E FAX TO Performed By: #### C MP, CBC #### [facility] [address] [place] [address] Chloride [Moles/Vol] 105 mmol/L Normal 95-114 [facility] Comment on above: Order Comment: PLEAS E FAX TO Performed By: #### C MP, CBC #### [facility] [address] [place] [address] [place] CO2 [Moles/Vol] 24.5 mmol/L Normal 22.0-30.0 [facility] Comment on above: Order Comment: PLEAS E FAX TO Performed By: #### C MP, CBC #### [facility] [address] [place] [address] [place] Creatinine [Mass/Vol] 1.13 mg/dL Normal 0.64-1.27 [facility] Comment on above: Order Comment: PLEAS E FAX TO Performed By: #### C MP, CBC #### [facility] [address] [place] [address] [place] Estimated GFR ( Mary Jo > 60 Normal [facility] Comment on above: Order Comment: PLEAS E FAX TO Result Comment: GFR estimated reference range: According to KDOQI guidelines, <60 ml/min/1.73m2 is sufficient to diagnose a patient with chronic kidney disease. Performed By: #### C MP, CBC #### [address] Estimated GFR (Non- Am > 60 [facility] Comment on above: Order Comment: PLEAS E FAX TO Performed By: #### C MP, CBC #### [address] Globulin (S) [Mass/Vol] 2.5 g/dL [facility] Comment on above: Order Comment: PLEAS E FAX TO Performed By: #### C MP, CBC #### [address] Glucose [Mass/Vol] 108 mg/dL High 70-100 [facility] Comment on above: Order Comment: PLEAS E FAX TO Result Comment: [place] om Glucose Reference Range is dependent on time and content of last meal. Glucose of more than 200 mg/dL in a nonstressed, ambulatory subject supports the diagnosis of Diabetes Mellitus. ADA recommended reference range Performed By: #### C MP, CBC #### [address] Potassium [Moles/Vol] 3.8 mmol/L Normal 3.5-5.1 [facility] Comment on above: Order Comment: PLEAS E FAX TO Performed By: #### C MP, CBC #### [place] [address] [place] Protein [Mass/Vol] 5.4 g/dL Low 6.1-7.9 [facility] Comment on above: Order Comment: PLEAS E FAX TO Performed By: #### C MP, CBC #### [place] [address] [place] Sodium [Moles/Vol] 138 mmol/L Normal 136-146 [facility] Comment on above: Order Comment: PLEAS E FAX TO Performed By: #### C MP, CBC #### [facility] [address] [id number] [facility] Urea nitrogen [Mass/Vol] 16 mg/dL Normal 9- [facility] Comment on above: Order Comment: PLEAS E FAX TO Performed By: #### C MP, CBC #### [facility] [address] [id number] [facility] Progress Noteson 04-02-2021 [employer] Authentication Interface Message Text Normal [facility] Progress Noteson 04-01-2021 [employer] Authentication Interface Message Text Patient was identified by name and date of . Lennice Hampton Short leg cast applied. Pins care and extra gauze applied. Care and instructions provided. Normal [facility] [employer] Authentication Interface Message Text Patient at risk for falls:Yes Falls Risk protocol implemented: Yes wheelchair in locked position when not in use for transport Normal [facility] Patient Instructionson 03-18 [employer] Authentication Interface Message Text Normal [facility] Progress Noteson 03-18-2021 [employer] Authentication Interface Message Text Normal [facility] [employer] Authentication Interface Message Text Patient was identified by name and date of . Rehab Zoqash .Patient at risk for falls:No Falls Risk protocol implemented: No Normal [facility] Progress Noteson 03-12-2021 [employer] Authentication Interface Message Text Normal [facility] Progress Noteson 03-11-2021 [employer] Authentication Interface Message Text Patient was identified by name and date of . Lennice Hampton Suture removal. Short leg cast applied to LLE over fixator pins. Care and instructions provided. Normal [facility] Telephone Encounteron 2020 [employer] Authentication Interface Message Text Normal [facility] BASIC METABOLIC PANELon Anion gap [Moles/Vol] 13 mmol/L Normal - [facility] Comment on above: Performed By: #### C H8 ####[facility] [id number] [place], [place], Calcium [Mass/Vol] 8.9 mg/dL Normal 8.4-10.4 [facility] Comment on above: Performed By: #### C H8 ####S PATHOLOGY [id number] [place], [place], Chloride [Moles/Vol] 104 mmol/L Normal 97-111 [facility] Comment on above: Performed By: #### C H8 ####S PATHOLOGY [id number] [place], CO2 [Moles/Vol] 25 mmol/L Normal 21-30 [facility] Comment on above: Performed By: #### C H8 ####[facility] PATHOLOGY [id number] [place], Creatinine [Mass/Vol] 0.99 mg/dL Normal 0.80-1.30 [facility] Comment on above: Performed By: #### C H8 ####[facility] PATHOLOGY [id number] [place], ESTIMATED GFR (CKD-EPI) 75 mL/min/1.73sqm Normal >=60 [facility] Comment on above: Performed By: #### C H8 ####S PATHOLOGY [id number] [place], Glucose [Mass/Vol] 101 mg/dL Normal 80-116 [facility] Comment on above: Performed By: #### C H8 ####S PATHOLOGY [id number] [place], Potassium [Moles/Vol] 4.1 mmol/L Normal 3.3-5.3 [facility] Comment on above: Performed By: #### C H8 ####S PATHOLOGY [id number] [place], Sodium [Moles/Vol] 138 mmol/L Normal 135-148 [facility] Comment on above: Performed By: #### C H8 ####S PATHOLOGY [id number] [place], Urea nitrogen [Mass/Vol] 19 mg/dL Normal 8-22 [facility] Comment on above: Performed By: #### C H8 ####[facility] [id number] [place], [place], Care Plan Noteon 02-28-2021 [employer] Authentication Interface Message Text Normal [facility] DIGOXINon 02-28-2021 DIG 0.78 ng/mL Low 0.80-2.00 [facility] Comment on above: Performed By: #### D IG ####[facility] [id number] [place], [place], Discharge Planning Noteon [employer] Authentication Interface Message Text Normal [facility] Progress Noteson 02-28-2021 [employer] Authentication Interface Message Text Report called to next facility to [facility]. Phone number provided to outside facility for any further questions. Reporting off to next shift. Normal [facility] [employer] Controller Authentication Interface Message Text Normal [facility] BASIC METABOLIC PANELon 01-31 Anion gap [Moles/Vol] 13 mmol/L Normal 5-13 [facility] Comment on above: Performed By: #### C H8, MG ####[facility] [id number] [place], Calcium [Mass/Vol] 8.8 mg/dL Normal 8.4-10.4 [facility] Comment on above: Performed By: #### C H8, MG ####[facility] [id number] [place], Chloride [Moles/Vol] 104 mmol/L Normal 97-111 [facility] Comment on above: Performed By: #### C H8, MG ####[facility] [id number] [place], CO2 [Moles/Vol] 25 mmol/L Normal 21-30 [facility] Comment on above: Performed By: #### C H8, MG ####[facility] [id number] [place], Creatinine [Mass/Vol] 1.00 mg/dL Normal 0.80-1.30 [facility] Comment on above: Performed By: #### C H8, MG ####[facility] [id number] [place], ESTIMATED GFR (CKD-EPI) 74 mL/min/1.73sqm Normal >=60 [facility] Comment on above: Performed By: #### Austyn Tamez, MG ####[facility] [id number] [place], Glucose [Mass/Vol] 108 mg/dL Normal 80-116 [facility] Comment on above: Performed By: #### Austyn Tamez, MG ####[facility] [id number] [place], Potassium [Moles/Vol] 4.3 mmol/L Normal 3.3-5.3 [facility] Comment on above: Performed By: #### Austyn Tamez, MG ####S PATHOLOGY [id number] [place], Sodium [Moles/Vol] 138 mmol/L Normal 135-148 [facility] Comment on above: Performed By: #### Austyn Tamez, MG ####S PATHOLOGY [id number] [place], Urea nitrogen [Mass/Vol] 20 mg/dL Normal 8-22 [facility] Comment on above: Performed By: #### Austyn Saleh8, MG ####[facility] [id number] [place], COMPLETE BLOOD COUNTon 02-27 Erythrocyte distribution width (RBC) [Ratio] 15.1 % High 11.5-14.5 [facility] Comment on above: Performed By: #### C BC ####[facility] [id number] [place], Hematocrit (Bld) [Volume fraction] 30.9 % Low 41.0-53.0 [facility] Comment on above: Performed By: #### C BC ####[facility] [id number] [place], Hemoglobin (Bld) [Mass/Vol] 10.3 g/dL Low 13.9-16.3 [facility] Comment on above: Performed By: #### C BC ####[facility] PATHOLOGY [id number] [place], MCH (RBC) [Entitic mass] 31.8 pg Normal 26.0-34.0 [facility] Comment on above: Performed By: #### C BC ####S PATHOLOGY [id number] [place], MCHC (RBC) [Mass/Vol] 33.3 g/dL Normal 32.0-35.9 [facility] Comment on above: Performed By: #### C BC ####[facility] PATHOLOGY [id number] [place], MCV (RBC) [Entitic vol] 95 fL Normal 80-100 [facility] Comment on above: Performed By: #### C BC ####[facility] PATHOLOGY [id number] [place], Plate[place] mean volume (Bld) [Entitic vol] 10.2 fL Normal 7.5-11.2 [facility] Comment on above: Performed By: #### C BC ####[facility] PATHOLOGY [id number] [place], Platelets (Bld) [#/Vol] 209 10*3/uL Normal 150-400 [facility] Comment on above: Performed By: #### C BC ####[facility] PATHOLOGY [id number] [place], RBC (Bld) [#/Vol] 3.24 10*6/uL Low 4.50-5.90 [facility] Comment on above: Performed By: #### C BC ####[facility] PATHOLOGY [id number] [place], WBC (Bld) [#/Vol] 5.2 10*3/uL Normal 4.5-11.5 [facility] Comment on above: Performed By: #### C BC ####S PATHOLOGY [id number] [place], Care Plan Noteon 02-27-2021 [employer] Authentication Interface Message Text Normal [facility] Consultson 02-27-2021 [employer] Attack Controller Authentication Interface Message Text Normal [facility] [employer] Attack Controller Authentication Interface Message Text Normal [facility] MAGNESIUMon 02-27-2021 Magnesium [Mass/Vol] 2.3 mg/dL Normal 1.6-2.8 [facility] Comment on above: Performed By: #### C H8, MG ####S PATHOLOGY [id number] [place], [place] Noteson 02-27-2021 [employer] Authentication Interface Message Text Normal [facility] [employer] Controller Authentication Interface Message Text Normal [facility] [employer] Controller Authentication Interface Message Text Normal [facility] BASIC METABOLIC PANELon 01-30 Anion gap [Moles/Vol] 14 mmol/L High 5-13 [facility] Comment on above: Performed By: #### Rajiv Roque, CH8 ####S PATHOLOGY [id number] [place], Calcium [Mass/Vol] 9.0 mg/dL Normal 8.4-10.4 [facility] Comment on above: Performed By: #### Rajiv Roque, CH8 ####S PATHOLOGY [id number] [place], Chloride [Moles/Vol] 103 mmol/L Normal 97-111 [facility] Comment on above: Performed By: #### Rajiv Roque, CH8 ####S PATHOLOGY [id number] [place], CO2 [Moles/Vol] 24 mmol/L Normal 21-30 [facility] Comment on above: Performed By: #### Rajiv Roque, CH8 ####S PATHOLOGY [id number] [place], Creatinine [Mass/Vol] 1.00 mg/dL Normal 0.80-1.30 [facility] Comment on above: Performed By: #### Rajiv Roque, CH8 ####S PATHOLOGY [id number] [place], ESTIMATED GFR (CKD-EPI) 74 mL/min/1.73sqm Normal >=60 [facility] Comment on above: Performed By: #### Rajiv Roque, CH8 ####S PATHOLOGY [id number] [place], Glucose [Mass/Vol] 103 mg/dL Normal 80-116 [facility] Comment on above: Performed By: #### Rajiv Roque, CH8 ####S PATHOLOGY [id number] [place], Potassium [Moles/Vol] 4.3 mmol/L Normal 3.3-5.3 [facility] Comment on above: Performed By: #### Rajiv Roque, CH8 ####[facility] PATHOLOGY [id number] [place], Sodium [Moles/Vol] 137 mmol/L Normal 135-148 [facility] Comment on above: Performed By: #### Rajiv Roque, CH8 ####[facility] PATHOLOGY [id number] [place], Urea nitrogen [Mass/Vol] 17 mg/dL Normal 8-22 [facility] Comment on above: Performed By: #### Rajiv Roque, CH8 ####[facility] PATHOLOGY [id number] [place], COMPLETE BLOOD COUNTon 02-26 Erythrocyte distribution width (RBC) [Ratio] 14.6 % High 11.5-14.5 [facility] Comment on above: Performed By: #### C BC ####[facility] PATHOLOGY [id number] [place], Hematocrit (Bld) [Volume fraction] 30.7 % Low 41.0-53.0 [facility] Comment on above: Performed By: #### C BC ####[facility] PATHOLOGY [id number] [place], Hemoglobin (Bld) [Mass/Vol] 10.5 g/dL Low 13.9-16.3 [facility] Comment on above: Performed By: #### C BC ####[facility] PATHOLOGY [id number] [place], MCH (RBC) [Entitic mass] 31.7 pg Normal 26.0-34.0 [facility] Comment on above: Performed By: #### C BC ####S PATHOLOGY [id number] [place], MCHC (RBC) [Mass/Vol] 34.1 g/dL Normal 32.0-35.9 [facility] Comment on above: Performed By: #### C BC ####S PATHOLOGY [id number] [place], MCV (RBC) [Entitic vol] 93 fL Normal 80-100 [facility] Comment on above: Performed By: #### C BC ####S PATHOLOGY [id number] [place], Plate[place] mean volume (Bld) [Entitic vol] 10.3 fL Normal 7.5-11.2 [facility] Comment on above: Performed By: #### C BC ####[facility] PATHOLOGY [id number] [place], Platelets (Bld) [#/Vol] 205 10*3/uL Normal 150-400 [facility] Comment on above: Performed By: #### C BC ####[facility] PATHOLOGY [id number] [place], RBC (Bld) [#/Vol] 3.30 10*6/uL Low 4.50-5.90 [facility] Comment on above: Performed By: #### C BC ####[facility] PATHOLOGY [id number] [place], WBC (Bld) [#/Vol] 5.3 10*3/uL Normal 4.5-11.5 [facility] Comment on above: Performed By: #### C BC ####S PATHOLOGY [id number] [place], Care Plan Noteon 02-26-2021 [employer] Authentication Interface Message Text Normal [facility] Consultson 02-26-2021 [employer] Attack Controller Authentication Interface Message Text Normal [facility] [employer] Attack Controller Authentication Interface Message Text Normal [facility] MAGNESIUMon 02-26-2021 Magnesium [Mass/Vol] 2.2 mg/dL Normal 1.6-2.8 [facility] Comment on above: Performed By: #### Rajiv Roque, CH8 ####S PATHOLOGY [id number] [place], Progress Noteson 02-26-2021 [employer] Controller Authentication Interface Message Text Normal [facility] [employer] Attack Controller Authentication Interface Message Text Normal [facility] [employer] Attack Controller Authentication Interface Message Text Normal [facility] [employer] Attack Controller Authentication Interface Message Text Normal [facility] BASIC METABOLIC PANELon 06-2 Anion gap [Moles/Vol] 15 mmol/L High 5-13 [facility] Comment on above: Performed By: #### Rajiv Roque, ALESHA8 ####S PATHOLOGY [id number] [place], Calcium [Mass/Vol] 9.7 mg/dL Normal 8.4-10.4 [facility] Comment on above: Performed By: #### Rajiv Roque, ALESHA8 ####S PATHOLOGY [id number] [place], Chloride [Moles/Vol] 112 mmol/L High 97-111 [facility] Comment on above: Performed By: #### Rajiv Roque, ALESHA8 ####S PATHOLOGY [id number] [place], CO2 [Moles/Vol] 27 mmol/L Normal 21-30 [facility] Comment on above: Performed By: #### Rajiv Roque, ALESHA8 ####S PATHOLOGY [id number] [place], Creatinine [Mass/Vol] 0.96 mg/dL Normal 0.80-1.30 [facility] Comment on above: Performed By: #### Rajiv Roque, CH8 ####S PATHOLOGY [id number] [place], ESTIMATED GFR (CKD-EPI) 78 mL/min/1.73sqm Normal >=60 [facility] Comment on above: Performed By: #### Rajiv Roque, CH8 ####[facility] [id number] [place], Glucose [Mass/Vol] 113 mg/dL Normal 80-116 [facility] Comment on above: Performed By: #### Rajiv Roque, CH8 ####S PATHOLOGY [id number] [place], Potassium [Moles/Vol] 4.9 mmol/L Normal 3.3-5.3 [facility] Comment on above: Performed By: #### Rajiv Roque, CH8 ####S PATHOLOGY [id number] [place], Sodium [Moles/Vol] 149 mmol/L High 135-148 [facility] Comment on above: Performed By: #### Rajiv Roque, CH8 ####[facility] PATHOLOGY [id number] [place], Urea nitrogen [Mass/Vol] 16 mg/dL Normal 8-22 [facility] Comment on above: Performed By: #### Rajiv Roque, ALESHA8 ####[facility] PATHOLOGY [id number] [place], COMPLETE BLOOD COUNTon 02-25 Erythrocyte distribution width (RBC) [Ratio] 14.5 % Normal 11.5-14.5 [facility] Comment on above: Performed By: #### C BC ####[facility] PATHOLOGY [id number] [place], Hematocrit (Bld) [Volume fraction] 29.6 % Low 41.0-53.0 [facility] Comment on above: Performed By: #### C BC ####[facility] PATHOLOGY [id number] [place], Hemoglobin (Bld) [Mass/Vol] 9.9 g/dL Low 13.9-16.3 [facility] Comment on above: Performed By: #### C BC ####S PATHOLOGY [id number] [place], MCH (RBC) [Entitic mass] 31.2 pg Normal 26.0-34.0 [facility] Comment on above: Performed By: #### C BC ####S PATHOLOGY RHMKJKDOWN0461 [place], MCHC (RBC) [Mass/Vol] 33.6 g/dL Normal 32.0-35.9 [facility] Comment on above: Performed By: #### C BC ####S PATHOLOGY HQCRNUWEQU7412 [place], MCV (RBC) [Entitic vol] 93 fL Normal 80-100 [facility] Comment on above: Performed By: #### C BC ####[facility] [id number] [place], Platelet mean volume (Bld) [Entitic vol] 9.8 fL Normal 7.5-11.2 [facility] Comment on above: Performed By: #### C BC ####S PATHOLOGY [id number] [place], Platelets (Bld) [#/Vol] 207 10*3/uL Normal 150-400 [facility] Comment on above: Performed By: #### C BC ####[facility] PATHOLOGY [id number] [place], RBC (Bld) [#/Vol] 3.19 10*6/uL Low 4.50-5.90 [facility] Comment on above: Performed By: #### C BC ####[facility] PATHOLOGY [id number] [place], WBC (Bld) [#/Vol] 5.6 10*3/uL Normal 4.5-11.5 [facility] Comment on above: Performed By: #### C BC ####[facility] PATHOLOGY [id number] [place], Care Plan Noteon 02-25-2021 [employer] Controller Authentication Interface Message Text Normal [facility] Consultson 02-25-2021 [employer] Attack Controller Authentication Interface Message Text Normal [facility] [employer] Attack Controller Authentication Interface Message Text Normal [facility] MAGNESIUMon 02-25-2021 Magnesium [Mass/Vol] 2.1 mg/dL Normal 1.6-2.8 [facility] Comment on above: Performed By: #### M Mya, CH8 ####S PATHOLOGY [id number] [place], Nursing Noteon 02-25-2021 [employer] Attack Controller Authentication Interface Message Text Normal [facility] Progress Noteson 02-25-2021 [employer] Attack Controller Authentication Interface Message Text Normal [facility] [employer] Attack Controller Authentication Interface Message Text Normal [facility] BASIC METABOLIC PANELon - Anion gap [Moles/Vol] 14 mmol/L High 5-13 [facility] Comment on above: Performed By: #### C H8, MG ####[facility] [id number] [place], Calcium [Mass/Vol] 9.0 mg/dL Normal 8.4-10.4 [facility] Comment on above: Performed By: #### C H8, MG ####[facility] [id number] [place], Chloride [Moles/Vol] 102 mmol/L Normal 97-111 [facility] Comment on above: Performed By: #### C H8, MG ####[facility] [id number] [place], CO2 [Moles/Vol] 23 mmol/L Normal 21-30 [facility] Comment on above: Performed By: #### C H8, MG ####[facility] [id number] [place], Creatinine [Mass/Vol] 0.94 mg/dL Normal 0.80-1.30 [facility] Comment on above: Performed By: #### C H8, MG ####[facility] [id number] [place], ESTIMATED GFR (CKD-EPI) 80 mL/min/1.73sqm Normal >=60 [facility] Comment on above: Performed By: #### C H8, MG ####[facility] [id number] [place], Glucose [Mass/Vol] 108 mg/dL Normal 80-116 [facility] Comment on above: Performed By: #### C H8, MG ####[facility] [id number] [place], Potassium [Moles/Vol] 4.3 mmol/L Normal 3.3-5.3 [facility] Comment on above: Performed By: #### C H8, MG ####S PATHOLOGY [id number] [place], Sodium [Moles/Vol] 135 mmol/L Normal 135-148 [facility] Comment on above: Performed By: #### C H8, MG ####[facility] PATHOLOGY [id number] [place], Urea nitrogen [Mass/Vol] 15 mg/dL Normal 8-22 [facility] Comment on above: Performed By: #### C H8, MG ####[facility] PATHOLOGY [id number] [place], COMPLETE BLOOD COUNTon 02-24 Erythrocyte distribution width (RBC) [Ratio] 14.9 % High 11.5-14.5 [facility] Comment on above: Performed By: #### C BC ####[facility] PATHOLOGY [id number] [place], Hematocrit (Bld) [Volume fraction] 28.2 % Low 41.0-53.0 [facility] Comment on above: Performed By: #### C BC ####[facility] PATHOLOGY [id number] [place], Hemoglobin (Bld) [Mass/Vol] 9.8 g/dL Low 13.9-16.3 [facility] Comment on above: Performed By: #### C BC ####[facility] PATHOLOGY [id number] [place], MCH (RBC) [Entitic mass] 33.0 pg Normal 26.0-34.0 [facility] Comment on above: Performed By: #### C BC ####[facility] PATHOLOGY [id number] [place], MCHC (RBC) [Mass/Vol] 34.7 g/dL Normal 32.0-35.9 [facility] Comment on above: Performed By: #### C BC ####S PATHOLOGY [id number] [place], MCV (RBC) [Entitic vol] 95 fL Normal 80-100 [facility] Comment on above: Performed By: #### C BC ####S PATHOLOGY [id number] [place], Platelet mean volume (Bld) [Entitic vol] 10.1 fL Normal 7.5-11.2 [facility] Comment on above: Performed By: #### C BC ####S PATHOLOGY [id number] [place], Platelets (Bld) [#/Vol] 206 10*3/uL Normal 150-400 [facility] Comment on above: Performed By: #### C BC ####[facility] PATHOLOGY [id number] [place], RBC (Bld) [#/Vol] 2.96 10*6/uL Low 4.50-5.90 [facility] Comment on above: Performed By: #### C BC ####[facility] PATHOLOGY [id number] [place], WBC (Bld) [#/Vol] 5.8 10*3/uL Normal 4.5-11.5 [facility] Comment on above: Performed By: #### C BC ####[facility] PATHOLOGY [id number] [place], Care Plan Noteon 02-24-2021 [employer] Attack Controller Authentication Interface Message Text Normal [facility] MAGNESIUMon 02-24-2021 Magnesium [Mass/Vol] 1.9 mg/dL Normal 1.6-2.8 [facility] Comment on above: Performed By: #### C H8, MG ####S PATHOLOGY [id number] [place], Progress Noteson 02-24-2021 [employer] Controller Authentication Interface Message Text Normal [facility] BASIC METABOLIC PANELon 01-30 Anion gap [Moles/Vol] 15 mmol/L High 5-13 [facility] Comment on above: Performed By: #### M G, CH8 ####S PATHOLOGY [id number] [place], Calcium [Mass/Vol] 8.9 mg/dL Normal 8.4-10.4 [facility] Comment on above: Performed By: #### Rajiv Roque, CH8 ####S PATHOLOGY [id number] [place], Chloride [Moles/Vol] 105 mmol/L Normal 97-111 [facility] Comment on above: Performed By: #### Rajiv Roque, CH8 ####S PATHOLOGY [id number] [place], CO2 [Moles/Vol] 22 mmol/L Normal 21-30 [facility] Comment on above: Performed By: #### Rajiv Roque, CH8 ####S PATHOLOGY [id number] [place], Creatinine [Mass/Vol] 0.87 mg/dL Normal 0.80-1.30 [facility] Comment on above: Performed By: #### Rajiv Roque, CH8 ####[facility] PATHOLOGY [id number] [place], ESTIMATED GFR (CKD-EPI) 85 mL/min/1.73sqm Normal >=60 [facility] Comment on above: Performed By: #### Rajiv Roque, CH8 ####[facility] PATHOLOGY [id number] [place], Glucose [Mass/Vol] 103 mg/dL Normal 80-116 [facility] Comment on above: Performed By: #### Rajiv Roque, CH8 ####S PATHOLOGY [id number] [place], Potassium [Moles/Vol] 4.6 mmol/L Normal 3.3-5.3 [facility] Comment on above: Performed By: #### Rajiv Roque, CH8 ####S PATHOLOGY [id number] [place], Sodium [Moles/Vol] 137 mmol/L Normal 135-148 [facility] Comment on above: Performed By: #### Rajiv Roque, ALESHA8 ####S PATHOLOGY [id number] [place], Urea nitrogen [Mass/Vol] 20 mg/dL Normal 8-22 [facility] Comment on above: Performed By: #### M G, CH8 ####[facility] PATHOLOGY [id number] [place], COMPLETE BLOOD COUNTon 02-23 Erythrocyte distribution width (RBC) [Ratio] 15.1 % High 11.5-14.5 [facility] Comment on above: Performed By: #### C BC ####[facility] PATHOLOGY [id number] [place], Hematocrit (Bld) [Volume fraction] 29.0 % Low 41.0-53.0 [facility] Comment on above: Performed By: #### C BC ####[facility] PATHOLOGY [id number] [place], Hemoglobin (Bld) [Mass/Vol] 9.6 g/dL Low 13.9-16.3 [facility] Comment on above: Performed By: #### C BC ####[facility] PATHOLOGY [id number] [place] [address], MCH (RBC) [Entitic mass] 31.6 pg Normal 26.0-34.0 [facility] Comment on above: Performed By: #### C BC ####[facility] PATHOLOGY [id number] [place], MCHC (RBC) [Mass/Vol] 33.1 g/dL Normal 32.0-35.9 [facility] Comment on above: Performed By: #### C BC ####[facility] PATHOLOGY [id number] [place], MCV (RBC) [Entitic vol] 95 fL Normal 80-100 [facility] Comment on above: Performed By: #### C BC ####[facility] PATHOLOGY [id number] [place], Platelet mean volume (Bld) [Entitic vol] 10.4 fL Normal 7.5-11.2 [facility] Comment on above: Performed By: #### C BC ####[facility] PATHOLOGY [id number] [place], Platelets (Bld) [#/Vol] 212 10*3/uL Normal 150-400 [facility] Comment on above: Performed By: #### C BC ####S PATHOLOGY [id number] [place], RBC (Bld) [#/Vol] 3.04 10*6/uL Low 4.50-5.90 [facility] Comment on above: Performed By: #### C BC ####[facility] PATHOLOGY [id number] [place], WBC (Bld) [#/Vol] 6.8 10*3/uL Normal 4.5-11.5 The [facility] Comment on above: Performed By: #### C BC ####[facility] PATHOLOGY [id number] [place], [place], Care Plan Noteon 02-23-2021 [employer] Controller Authentication Interface Message Text Normal [facility] MAGNESIUMon 02-23-2021 Magnesium [Mass/Vol] 2.0 mg/dL Normal 1.6-2.8 The [facility] Comment on above: Performed By: #### Rajiv Roque CH8 ####[facility] PATHOLOGY [id number] [place] [address], Progress Noteson 02-23-2021 [employer] Attack Controller Authentication Interface Message Text Normal The [facility] BASIC METABOLIC PANELon 01-30 Anion gap [Moles/Vol] 13 mmol/L Normal 5-13 The [facility] Comment on above: Performed By: #### Austyn H8, MG ####S PATHOLOGY [id number] [place], Calcium [Mass/Vol] 8.7 mg/dL Normal 8.4-10.4 The [facility] Comment on above: Performed By: #### Austyn H8, MG ####S PATHOLOGY [id number] [place], Chloride [Moles/Vol] 106 mmol/L Normal 97-111 The [facility] Comment on above: Performed By: #### Austyn H8, MG ####S PATHOLOGY [id number] [place], CO2 [Moles/Vol] 22 mmol/L Normal 21-30 The [facility] Comment on above: Performed By: #### C H8, MG ####S PATHOLOGY [id number] [place], Creatinine [Mass/Vol] 0.90 mg/dL Normal 0.80-1.30 The [facility] Comment on above: Performed By: #### C H8, MG ####S PATHOLOGY [id number] [place], ESTIMATED GFR (CKD-EPI) 84 mL/min/1.73sqm Normal >=60 The [facility] Comment on above: Performed By: #### C H8, MG ####S PATHOLOGY [id number] [place], Glucose [Mass/Vol] 97 mg/dL Normal 80-116 The [facility] Comment on above: Performed By: #### C H8, MG ####S PATHOLOGY [id number] [place], Potassium [Moles/Vol] 4.2 mmol/L Normal 3.3-5.3 The [facility] Comment on above: Performed By: #### C H8, MG ####S PATHOLOGY [id number] [place] [address], Sodium [Moles/Vol] 137 mmol/L Normal 135-148 The [facility] Comment on above: Performed By: #### C H8, MG ####S PATHOLOGY [id number] [place], Urea nitrogen [Mass/Vol] 17 mg/dL Normal 8-22 [facility] Comment on above: Performed By: #### C H8, MG ####[facility] [id number] [place], COMPLETE BLOOD COUNTon 02-22 Erythrocyte distribution width (RBC) [Ratio] 15.0 % High 11.5-14.5 The [facility] Comment on above: Performed By: #### C BC ####[facility] PATH[facility] [id number] [place] [address], Hematocrit (Bld) [Volume fraction] 27.4 % Low 41.0-53.0 The [facility] Comment on above: Performed By: #### C BC ####[facility] PATHOLOGY [id number] [place], Hemoglobin (Bld) [Mass/Vol] 9.2 g/dL Low 13.9-16.3 The [facility] Comment on above: Performed By: #### C BC ####[facility] PATHOLOGY [id number] [place], MCH (RBC) [Entitic mass] 31.4 pg Normal 26.0-34.0 The [facility] Comment on above: Performed By: #### C BC ####[facility] PATHOLOGY [id number] [place] [address], MCHC (RBC) [Mass/Vol] 33.6 g/dL Normal 32.0-35.9 The [facility] Comment on above: Performed By: #### C BC ####[facility] PATHOLOGY [id number] [place] [address], MCV (RBC) [Entitic vol] 93 fL Normal 80-100 The [facility] Comment on above: Performed By: #### C BC ####[facility] PATHOLOGY [id number] [place] [address], Platelet mean volume (Bld) [Entitic vol] 9.9 fL Normal 7.5-11.2 The [facility] Comment on above: Performed By: #### C BC ####[facility] PATHOLOGY [id number] [place], Platelets (Bld) [#/Vol] 204 10*3/uL Normal 150-400 The [facility] Comment on above: Performed By: #### C BC ####[facility] PATHOLOGY [id number] [place], RBC (Bld) [#/Vol] 2.94 10*6/uL Low 4.50-5.90 The [facility] Comment on above: Performed By: #### C BC ####[facility] PATHOLOGY [id number] [place], WBC (Bld) [#/Vol] 6.7 10*3/uL Normal 4.5-11.5 The [facility] Comment on above: Performed By: #### C BC ####[facility] [id number] [place], Care Plan Noteon 02-22-2021 [employer] Controller Authentication Interface Message Text Normal [facility] Consultson 02-22-2021 [employer] Attack Controller Authentication Interface Message Text Normal [facility] MAGNESIUMon 02-22-2021 Magnesium [Mass/Vol] 2.0 mg/dL Normal 1.6-2.8 The [facility] Comment on above: Performed By: #### C H8, MG ####[facility] PATH[facility]Y [id number] [place], Progress Noteson 02-22-2021 [employer] Controller Authentication Interface Message Text Normal [facility] Joint Terminal Attack Controller Authentication Interface Message Text Normal [facility] Joint Terminal Attack Controller Authentication Interface Message Text Normal [facility] BASIC METABOLIC PANELon 01-30 Anion gap [Moles/Vol] 13 mmol/L Normal 5-13 The [facility] Comment on above: Performed By: #### Austyn H8, MG ####[facility] PATH[facility]Y [id number] [place], Calcium [Mass/Vol] 8.4 mg/dL Normal 8.4-10.4 The [facility] Comment on above: Performed By: #### C H8, MG ####[facility] PATH[facility] [id number] [place], Chloride [Moles/Vol] 107 mmol/L Normal 97-111 The [facility] Comment on above: Performed By: #### C H8, MG ####[facility] PATH[facility]Y [id number] [place], CO2 [Moles/Vol] 22 mmol/L Normal 21-30 [facility] Comment on above: Performed By: #### C H8, MG ####[facility] PATH[facility]Y [id number] [place], Creatinine [Mass/Vol] 0.85 mg/dL Normal 0.80-1.30 The [facility] Comment on above: Performed By: #### C H8, MG ####[facility] PATH[facility]Y [id number] [place], ESTIMATED GFR (CKD-EPI) 86 mL/min/1.73sqm Normal >=60 The [facility] Comment on above: Performed By: #### C H8, MG ####[facility] PATHOLOGY [id number] [place], Glucose [Mass/Vol] 107 mg/dL Normal 80-116 The [facility] Comment on above: Performed By: #### C H8, MG ####[facility] PATHOLOGY [id number] [place], Potassium [Moles/Vol] 4.0 mmol/L Normal 3.3-5.3 The [facility] Comment on above: Performed By: #### C H8, MG ####[facility] PATH[facility] [id number] [place], Sodium [Moles/Vol] 138 mmol/L Normal 135-148 The [facility] Comment on above: Performed By: #### C H8, MG ####[facility] PATH[facility] [id number] [place], Urea nitrogen [Mass/Vol] 16 mg/dL Normal 8-22 [facility] Comment on above: Performed By: #### C H8, MG ####[facility] PATH[facility] [id number] [place], COMPLETE BLOOD COUNTon 02-21 Erythrocyte distribution width (RBC) [Ratio] 15.2 % High 11.5-14.5 [facility] Comment on above: Performed By: #### C BC ####[facility] PATH[facility] [id number] [place], Hematocrit (Bld) [Volume fraction] 26.7 % Low 41.0-53.0 The [facility] Comment on above: Performed By: #### C BC ####[facility] PATH[facility] [id number] [place], Hemoglobin (Bld) [Mass/Vol] 9.2 g/dL Low 13.9-16.3 The [facility] Comment on above: Performed By: #### C BC ####[facility] PATHOLOGY [id number] [place], MCH (RBC) [Entitic mass] 32.3 pg Normal 26.0-34.0 The [facility] Comment on above: Performed By: #### C BC ####[facility] PATHOLOGY [id number] [place], MCHC (RBC) [Mass/Vol] 34.2 g/dL Normal 32.0-35.9 The [facility] Comment on above: Performed By: #### C BC ####[facility] PATHOLOGY [id number] [place], MCV (RBC) [Entitic vol] 94 fL Normal 80-100 The [facility] Comment on above: Performed By: #### C BC ####[facility] PATHOLOGY [id number] [place], Platelet mean volume (Bld) [Entitic vol] 10.2 fL Normal 7.5-11.2 The [facility] Comment on above: Performed By: #### C BC ####[facility] PATHOLOGY [id number] [place], Platelets (Bld) [#/Vol] 204 10*3/uL Normal 150-400 The [facility] Comment on above: Performed By: #### C BC ####[facility] PATHOLOGY [id number] [place], RBC (Bld) [#/Vol] 2.83 10*6/uL Low 4.50-5.90 The [facility] Comment on above: Performed By: #### C BC ####[facility] PATHOLOGY [id number] [place], WBC (Bld) [#/Vol] 7.8 10*3/uL Normal 4.5-11.5 The [facility] Comment on above: Performed By: #### C BC ####S PATHOLOGY [id number] [place], Care Plan Noteon 02-21-2021 [employer] Attack Controller Authentication Interface Message Text Normal [facility] Consultson 02-21-2021 Joint Terminal Attack Controller Authentication Interface Message Text Normal [facility] Joint Terminal Attack Controller Authentication Interface Message Text Normal [facility] Joint Terminal Attack Controller Authentication Interface Message Text Normal [facility] MAGNESIUMon 02-21-2021 Magnesium [Mass/Vol] 2.1 mg/dL Normal 1.6-2.8 [facility] Comment on above: Performed By: #### C H8, MG ####[facility] PATH[facility] [id number] [place], Progress Noteson 02-21-2021 [employer] Attack Controller Authentication Interface Message Text Per Trauma, unclear when pt is ready for DC. Pt accepted to [facility]. Please alert SW when pt is nearing DC. Pt will require a precert. Amada Saul [facility], [employer] ATTENDANT [phone] Normal [facility] Joint Terminal Attack Controller Authentication Interface Message Text Normal [facility] Joint [employer] Attack Controller Authentication Interface Message Text Normal [facility] BASIC METABOLIC PANELon 01-30 Anion gap [Moles/Vol] 9 mmol/L Normal 5-13 [facility] Comment on above: Performed By: #### Rajiv Roque CH8 ####[facility] PATH[facility] [id number] [place], Calcium [Mass/Vol] 8.5 mg/dL Normal 8.4-10.4 [facility] Comment on above: Performed By: #### Rajiv Roque, CH8 ####[facility] [id number] [place], Chloride [Moles/Vol] 104 mmol/L Normal 97-111 [facility] Comment on above: Performed By: #### Rajiv Roque, CH8 ####[facility] PATH[facility] [id number] [place], CO2 [Moles/Vol] 24 mmol/L Normal 21-30 [facility] Comment on above: Performed By: #### Rajiv Roque, CH8 ####[facility] PATH[facility]Y [id number] [place], Creatinine [Mass/Vol] 0.95 mg/dL Normal 0.80-1.30 The [facility] Comment on above: Performed By: #### Rajiv Roque, CH8 ####S PATHOLOGY [id number] [place], ESTIMATED GFR (CKD-EPI) 79 mL/min/1.73sqm Normal >=60 The [facility] Comment on above: Performed By: #### Rajiv Roque, CH8 ####S PATHOLOGY [id number] [place], Glucose [Mass/Vol] 112 mg/dL Normal 80-116 The [facility] Comment on above: Performed By: #### Rajiv Roque, CH8 ####S PATHOLOGY [id number] [place], Potassium [Moles/Vol] 4.3 mmol/L Normal 3.3-5.3 The [facility] Comment on above: Performed By: #### Rajiv Roque, CH8 ####S PATHOLOGY [id number] [place], Sodium [Moles/Vol] 133 mmol/L Low 135-148 The [facility] Comment on above: Performed By: #### Rajiv Roque, CH8 ####S PATHOLOGY [id number] [place], Urea nitrogen [Mass/Vol] 16 mg/dL Normal 8-22 [facility] Comment on above: Performed By: #### Rajiv Roque, CH8 ####S PATHOLOGY [id number] [place], COMPLETE BLOOD COUNTon 02-20 Erythrocyte distribution width (RBC) [Ratio] 14.9 % High 11.5-14.5 [facility] Comment on above: Performed By: #### C BC ####S PATHOLOGY [id number] [place], Hematocrit (Bld) [Volume fraction] 30.1 % Low 41.0-53.0 The [facility] Comment on above: Performed By: #### C BC ####S PATHOLOGY [id number] [place], Hemoglobin (Bld) [Mass/Vol] 10.1 g/dL Low 13.9-16.3 The [facility] Comment on above: Performed By: #### C BC ####[facility] PATHOLOGY [id number] [place], MCH (RBC) [Entitic mass] 31.7 pg Normal 26.0-34.0 The [facility] Comment on above: Performed By: #### C BC ####[facility] PATHOLOGY [id number] [place], MCHC (RBC) [Mass/Vol] 33.5 g/dL Normal 32.0-35.9 The [facility] Comment on above: Performed By: #### C BC ####[facility] PATHOLOGY [id number] [place], MCV (RBC) [Entitic vol] 95 fL Normal 80-100 The [facility] Comment on above: Performed By: #### C BC ####[facility] PATHOLOGY [id number] [place], Platelet mean volume (Bld) [Entitic vol] 10.1 fL Normal 7.5-11.2 The [facility] Comment on above: Performed By: #### C BC ####[facility] PATHOLOGY [id number] [place], Platelets (Bld) [#/Vol] 225 10*3/uL Normal 150-400 The [facility] Comment on above: Performed By: #### C BC ####[facility] PATHOLOGY [id number] [place], RBC (Bld) [#/Vol] 3.18 10*6/uL Low 4.50-5.90 The [facility] Comment on above: Performed By: #### C BC ####[facility] PATHOLOGY [id number] [place], WBC (Bld) [#/Vol] 8.3 10*3/uL Normal 4.5-11.5 The [facility] Comment on above: Performed By: #### C BC ####[facility] PATHOLOGY [id number] [place], Care Plan Noteon 02-20-2021 [employer] Controller Authentication Interface Message Text Normal [facility] Consultson 02-20-2021 Joint Terminal Attack Controller Authentication Interface Message Text Normal [facility] H AND Martin 02-20-2021 Joint Terminal Attack Controller Authentication Interface Message Text Normal [facility] MAGNESIUMon 02-20-2021 Magnesium [Mass/Vol] 1.8 mg/dL Normal 1.6-2.8 [facility] Comment on above: Performed By: #### JENNIFER Blum ####S PATHOLOGY [id number] [place], Procedureson 02-20-2021 [employer] Attack Controller Authentication Interface Message Text Normal [facility] Progress Noteson 02-20-2021 [employer] Attack Controller Authentication Interface Message Text Normal [facility] Joint [employer] Attack Controller Authentication Interface Message Text Entered in error. Normal [facility] Joint [employer] Attack Controller Authentication Interface Message Text Normal [facility] [employer] Attack Controller Authentication Interface Message Text Normal [facility] Anesthesia Acute Painon 01-30 [employer] Controller Authentication Interface Message Text Normal [facility] Anesthesia Attestationon [employer] Controller Authentication Interface Message Text Normal [facility] Anesthesia Postprocedure Lucretia luationon 02-19-2021 Joint [employer] Attack Controller Authentication Interface Message Text Normal [facility] [employer] Attack Controller Authentication Interface Message Text Normal [facility] Anesthesia Procedure Noteson 02-19-2021 Joint [employer] Attack Controller Authentication Interface Message Text Normal [facility] Anesthesia Transfer Of Careo n 02-19-2021 Joint Terminal Attack Controller Authentication Interface Message Text Normal [facility] BASIC METABOLIC PANELon 01-30 Anion gap [Moles/Vol] 13 mmol/L Normal 5-13 [facility] Comment on above: Performed By: #### JENNIFER Blum ####[facility] [id number] [place], Calcium [Mass/Vol] 8.9 mg/dL Normal 8.4-10.4 The [facility] Comment on above: Performed By: #### JENNIFER Blum ####[facility] PATH[facility] [id number] [place], Chloride [Moles/Vol] 107 mmol/L Normal 97-111 The [facility] Comment on above: Performed By: #### Rajiv Roque, CH8 ####S PATHOLOGY [id number] [place], CO2 [Moles/Vol] 21 mmol/L Normal 21-30 [facility] Comment on above: Performed By: #### Rajiv Roque, CH8 ####S PATHOLOGY [id number] [place], Creatinine [Mass/Vol] 1.00 mg/dL Normal 0.80-1.30 [facility] Comment on above: Performed By: #### Rajiv Roque, CH8 ####S PATHOLOGY [id number] [place], ESTIMATED GFR (CKD-EPI) 74 mL/min/1.73sqm Normal >=60 [facility] Comment on above: Performed By: #### Rajiv Roque, CH8 ####S PATHOLOGY [id number] [place], Glucose [Mass/Vol] 102 mg/dL Normal 80-116 [facility] Comment on above: Performed By: #### Rajiv Roque, CH8 ####S PATHOLOGY [id number] [place], Potassium [Moles/Vol] 4.3 mmol/L Normal 3.3-5.3 [facility] Comment on above: Performed By: #### Rajiv Roque, CH8 ####S PATHOLOGY [id number] [place], Sodium [Moles/Vol] 137 mmol/L Normal 135-148 [facility] Comment on above: Performed By: #### Rajiv Roque, CH8 ####S PATHOLOGY [id number] [place], Urea nitrogen [Mass/Vol] 23 mg/dL High 8-22 [facility] Comment on above: Performed By: #### Rajiv Roque, CH8 ####S PATHOLOGY [id number] [place], BLOOD GAS, ARTERIALon 2020 CR % O2 SAT > 99.4 Normal >=95.1 [facility] Comment on above: Performed By: #### C R GLU, CR COOX, CR ICA, CR BGA, CR LYTES, LACT ####[facility] PATHOLOGY [id number] [place] [address], CR MAYCOL -2.1 mmol/L Low -2.0-2.0 [facility] Comment on above: Performed By: #### C R GLU, CR COOX, CR ICA, CR BGA, CR LYTES, LACT ####[facility] PATHOLOGY [id number] [place] [address], CR PCO2 32.5 mm Hg Low 35.0-45.0 [facility] Comment on above: Performed By: #### C R GLU, CR COOX, CR ICA, CR BGA, CR LYTES, LACT ####[facility] PATHOLOGY [id number] [place] [address], CR PHA 7.429 Normal 7.35-7.45 The [facility] Comment on above: Performed By: #### C R GLU, CR COOX, CR ICA, CR BGA, CR LYTES, LACT ####[facility] PATHOLOGY [id number] [place] [address], CR PO2 190 mm Hg High 80-100 mm Hg [facility] Comment on above: Performed By: #### C R GLU, CR COOX, CR ICA, CR BGA, CR LYTES, LACT ####[facility] PATHOLOGY [id number] [place] [address], HCO3 (Bld) [Moles/Vol] 21 mmol/L Low 22-28 [facility] Comment on above: Performed By: #### C R GLU, CR COOX, CR ICA, CR BGA, CR LYTES, LACT ####[facility] PATHOLOGY [id number] [place] [address], Brief Operative Noteon 02-19 Joint [employer] Attack Controller Authentication Interface Message Text Normal [facility] CALCIUM, IONIZEDon CR ICA 1.12 mmol/L Normal 1.10-1.40 [facility] Comment on above: Performed By: #### C R GLU, CR COOX, CR ICA, CR BGA, CR LYTES, LACT ####[facility] PATHOLOGY [id number] [place] [address], CO-OXIMETERon 02-19-2021 CARBOXYHEMOGLOBIN 2.2 % Normal <3.0 The [facility] Comment on above: Performed By: #### C R GLU, CR COOX, CR ICA, CR BGA, CR LYTES, LACT ####[facility] PATHOLOGY [id number] [place] [address], CR HBMET 1.4 % Normal <3.0 The [facility] Comment on above: Performed By: #### C R GLU, CR COOX, CR ICA, CR BGA, CR LYTES, LACT ####[facility] PATHOLOGY [id number] [place] [address], Hematocrit (Bld) [Volume fraction] 31.1 % Low 42.0-52.0 [facility] Comment on above: Performed By: #### C R GLU, CR COOX, CR ICA, CR BGA, CR LYTES, LACT ####[facility] PATHOLOGY [id number] [place] [address], Hemoglobin (Bld) [Mass/Vol] 10.1 g/dL Low 14.0-18.0 The [facility] Comment on above: Performed By: #### C R GLU, CR COOX, CR ICA, CR BGA, CR LYTES, LACT ####[facility] PATHOLOGY [id number] [place] [address], OXYHEMOGLOBIN 96.1 % Normal 95.0-100.0 The [facility] Comment on above: Performed By: #### C R GLU, CR COOX, CR ICA, CR BGA, CR LYTES, LACT ####[facility] PATHOLOGY [id number] [place] [address], COMPLETE BLOOD COUNTon 02-19 Erythrocyte distribution width (RBC) [Ratio] 14.9 % High 11.5-14.5 The [facility] Comment on above: Performed By: #### C BC ####[facility] PATHOLOGY [id number] [place] [address], Hematocrit (Bld) [Volume fraction] 31.8 % Low 41.0-53.0 The [facility] Comment on above: Performed By: #### C BC ####[facility] PATHOLOGY [id number] [place], Hemoglobin (Bld) [Mass/Vol] 10.7 g/dL Low 13.9-16.3 The [facility] Comment on above: Performed By: #### C BC ####[facility] PATHOLOGY [id number] [place], MCH (RBC) [Entitic mass] 31.7 pg Normal 26.0-34.0 [facility] Comment on above: Performed By: #### C BC ####[facility] PATHOLOGY [id number] [place], MCHC (RBC) [Mass/Vol] 33.8 g/dL Normal 32.0-35.9 [facility] Comment on above: Performed By: #### C BC ####[facility] PATHOLOGY [id number] [place] [address], MCV (RBC) [Entitic vol] 94 fL Normal 80-100 The [facility] Comment on above: Performed By: #### C BC ####[facility] PATHOLOGY [id number] [place], Platelet mean volume (Bld) [Entitic vol] 9.6 fL Normal 7.5-11.2 The [facility] Comment on above: Performed By: #### C BC ####[facility] PATHOLOGY [id number] [place], [place], Platelets (Bld) [#/Vol] 235 10*3/uL Normal 150-400 [facility] Comment on above: Performed By: #### C BC ####[facility] PATHOLOGY [id number] [place], RBC (Bld) [#/Vol] 3.38 10*6/uL Low 4.50-5.90 [facility] Comment on above: Performed By: #### C BC ####[facility] PATHOLOGY [id number] [place], WBC (Bld) [#/Vol] 6.3 10*3/uL Normal 4.5-11.5 [facility] Comment on above: Performed By: #### C BC ####[facility] PATHOLOGY [id number] [place], Care Plan Noteon 02-19-2021 [employer] Authentication Interface Message Text Normal [facility] Consultson 02-19-2021 [employer] Controller Authentication Interface Message Text PHYSICAL THERAPY and OCCUPATIONAL THERAPY Attempt at Tx this AM is unsuccessful as Patient is off floor in OR with Orthopedics for definitive fixation of (L) ankle. Will f/u Maribell Ocasio, PT, MPT (B) [phone] Rosa Vick, OTR/L Normal [facility] ELECTROLYTESon 02-19-2021 Chloride [Moles/Vol] 109 mmol/L Normal 97-111 [facility] Comment on above: Performed By: #### C R GLU, CR COOX, CR ICA, CR BGA, CR LYTES, LACT ####[facility] PATHOLOGY [id number] [place], Potassium [Moles/Vol] 3.8 mmol/L Normal 3.3-5.3 [facility] Comment on above: Performed By: #### C R GLU, CR COOX, CR ICA, CR BGA, CR LYTES, LACT ####[facility] PATHOLOGY [id number] [place], Sodium [Moles/Vol] 134 mmol/L Low 135-148 [facility] Comment on above: Performed By: #### C R GLU, CR COOX, CR ICA, CR BGA, CR LYTES, LACT ####[facility] PATHOLOGY [id number] [place], GLUCOSE, WHOLE BLOODon 02-19 CR GLU 101 mg/dL High 68-98 [facility] Comment on above: Performed By: #### C R GLU, CR COOX, CR ICA, CR BGA, CR LYTES, LACT ####[facility] PATHOLOGY [id number] [place], H AND Martin 02-19-2021 [employer] Controller Authentication Interface Message Text Normal [facility] LACTIC ACIDon 02-19-2021 CR LACT 0.7 mmol/L Normal 0.5-2.0 [facility] Comment on above: Performed By: #### C R GLU, CR COOX, CR ICA, CR BGA, CR LYTES, LACT ####[facility] PATHOLOGY [id number] [place], MAGNESIUMon 02-19-2021 Magnesium [Mass/Vol] 2.0 mg/dL Normal 1.6-2.8 [facility] Comment on above: Performed By: #### Rajiv Roque PHOS ####[facility] PATHOLOGY [id number] [place], Magnesium [Mass/Vol] 2.0 mg/dL Normal 1.6-2.8 [facility] Comment on above: Performed By: #### Rajiv Roque, CH8 ####[facility] PATHOLOGY [id number] [place] [address], OP Noteon 02-19-2021 [employer] Controller Authentication Interface Message Text Normal [facility] PARTIAL THROMBOPLASTIN TIMEo n 02-19-2021 aPTT Coag (Bld) [Time] 34 s Normal 25-37 Th [facility] Comment on above: Performed By: #### A PTT, PT ####[facility] PATHOLOGY [id number] [place], PHOSPHORUSon 02-19-2021 Phosphate [Mass/Vol] 3.8 mg/dL Normal 2.3-4.2 [facility] Comment on above: Performed By: #### Rajiv Roque PHOS ####[facility] PATHOLOGY [id number] [place] [address], PROTHROMBIN TIME AND INRon 0 02-19-2021 INR Coag (PPP) [Relative time] 1.09 {INR} Normal 0.90-1.10 [facility] Comment on above: Performed By: #### A PTT, PT ####[facility] PATHOLOGY [id number] [place] [address], PT Coag (PPP) [Time] 12.3 s Normal 9.7-12.9 [facility] Comment on above: Performed By: #### A PTT, PT ####S PATHOLOGY [id number] [place], Progress Noteson 02-19-2021 [employer] Controller Authentication Interface Message Text Normal [facility] [employer] Attack Controller Authentication Interface Message Text Peripheral nerve block has been completed at bedside by anesthesia; will maintain cardiac monitoring for at least 30 minutes. Normal [facility] [employer] Attack Controller Authentication Interface Message Text OK for patient to get peripheral nerve block per Dr. Santos. Normal [facility] [employer] Attack Controller Authentication Interface Message Text Normal [facility] TYPE AND SCREENon 02-19-2021 ABO and Rh group Nom (Bld) Blood group A Rh(D) positive Normal [facility] Comment on above: Performed By: #### T S ####[facility] [id number] [place], ABSC INT Negative Normal [facility] Comment on above: Performed By: #### T S ####[facility] [id number] [place], [place] GUIDANCE NEEDLE PLACEMENT on 02-19-2021 US GUIDANCE NEEDLE PLACEMENT Normal [facility] XR ANKLE LEFTon 02-19-2021 XR ANKLE LEFT Normal [facility] Anesthesia Preprocedure Eval uationon 02-18-2021 [employer] Controller Authentication Interface Message Text Normal The [facility] Care Plan Noteon 02-18-2021 [employer] Attack Controller Authentication Interface Message Text Normal The [facility] Progress Noteson 02-18-2021 [employer] Attack Controller Authentication Interface Message Text SW is aware pt to go to the OR tomorrow: 02/19/2021. Pt will need post-op PT/OT for SNF placement and precert. [facility] has accepted and following for placement. They were made aware of the above TRINIDAD Malcolm, AIRPORT RAMP ATTENDANT [phone] Normal [facility] Joint [employer] Attack Controller Authentication Interface Message Text Normal [facility] [employer] Attack Controller Authentication Interface Message Text Normal [facility] [employer] Controller Authentication Interface Message Text Normal [facility] BASIC METABOLIC PANELon - Anion gap [Moles/Vol] 12 mmol/L Normal 5-13 [facility] Comment on above: Performed By: #### C H8, DIG, MG ####[facility] [id number] [place], Calcium [Mass/Vol] 8.9 mg/dL Normal 8.4-10.4 [facility] Comment on above: Performed By: #### C H8, DIG, MG ####[facility] [id number] [place], Chloride [Moles/Vol] 106 mmol/L Normal 97-111 [facility] Comment on above: Performed By: #### C H8, DIG, MG ####[facility] [id number] [place], CO2 [Moles/Vol] 22 mmol/L Normal 21-30 [facility] Comment on above: Performed By: #### C H8, DIG, MG ####[facility] [id number] [place], Creatinine [Mass/Vol] 1.17 mg/dL Normal 0.80-1.30 [facility] Comment on above: Performed By: #### Austyn HSajan, DIG, MG ####[facility] [id number] [place], ESTIMATED GFR (CKD-EPI) 61 mL/min/1.73sqm Normal >=60 [facility] Comment on above: Performed By: #### C H8, DIG, MG ####[facility] [id number] [place], Glucose [Mass/Vol] 104 mg/dL Normal 80-116 [facility] Comment on above: Performed By: #### C H8, DIG, MG ####[facility] [id number] [place], Potassium [Moles/Vol] 4.4 mmol/L Normal 3.3-5.3 [facility] Comment on above: Performed By: #### C H8, DIG, MG ####[facility] [id number] [place], Sodium [Moles/Vol] 136 mmol/L Normal 135-148 [facility] Comment on above: Performed By: #### C H8, DIG, MG ####S PATHOLOGY [id number] [place], Urea nitrogen [Mass/Vol] 33 mg/dL High 8-22 [facility] Comment on above: Performed By: #### C H8, DIG, MG ####S PATHOLOGY [id number] [place], COMPLETE BLOOD COUNTon 02-17 Erythrocyte distribution width (RBC) [Ratio] 14.6 % High 11.5-14.5 [facility] Comment on above: Performed By: #### C BC ####[facility] PATHOLOGY [id number] [place], Hematocrit (Bld) [Volume fraction] 30.4 % Low 41.0-53.0 [facility] Comment on above: Performed By: #### C BC ####[facility] PATHOLOGY [id number] [place], Hemoglobin (Bld) [Mass/Vol] 10.4 g/dL Low 13.9-16.3 [facility] Comment on above: Performed By: #### C BC ####[facility] PATHOLOGY [id number] [place], MCH (RBC) [Entitic mass] 32.4 pg Normal 26.0-34.0 [facility] Comment on above: Performed By: #### C BC ####S PATHOLOGY [id number] [place], MCHC (RBC) [Mass/Vol] 34.2 g/dL Normal 32.0-35.9 [facility] Comment on above: Performed By: #### C BC ####S PATHOLOGY [id number] [place], MCV (RBC) [Entitic vol] 95 fL Normal 80-100 [facility] Comment on above: Performed By: #### C BC ####S PATHOLOGY [id number] [place], Platelet mean volume (Bld) [Entitic vol] 10.2 fL Normal 7.5-11.2 [facility] Comment on above: Performed By: #### C BC ####S PATHOLOGY [id number] [place], Platelets (Bld) [#/Vol] 207 10*3/uL Normal 150-400 [facility] Comment on above: Performed By: #### C BC ####S PATHOLOGY [id number] [place], RBC (Bld) [#/Vol] 3.20 10*6/uL Low 4.50-5.90 [facility] Comment on above: Performed By: #### C BC ####[facility] PATHOLOGY [id number] [place], WBC (Bld) [#/Vol] 9.1 10*3/uL Normal 4.5-11.5 [facility] Comment on above: Performed By: #### C BC ####[facility] PATHOLOGY [id number] [place], Care Plan Noteon 02-17-2021 Joint [employer] Attack Controller Authentication Interface Message Text Normal [facility] Consultson 02-17-2021 Joint Terminal Attack Controller Authentication Interface Message Text Normal [facility] Joint Terminal Attack Controller Authentication Interface Message Text Normal [facility] DIGOXINon 02-17-2021 DIG 0.91 ng/mL Normal 0.80-2.00 [facility] Comment on above: Performed By: #### Austyn H8, DIG, MG ####S PATHOLOGY [id number] [place], MAGNESIUMon 02-17-2021 Magnesium [Mass/Vol] 2.0 mg/dL Normal 1.6-2.8 [facility] Comment on above: Performed By: #### Austyn H8, DIG, MG ####[facility] [id number] [place], Progress Noteson 02-17-2021 Joint [employer] Attack Controller Authentication Interface Message Text Normal [facility] Care Plan Noteon 02-16-2021 Joint Terminal Attack Controller Authentication Interface Message Text Normal [facility] Progress Noteson 02-16-2021 Joint Terminal Attack Controller Authentication Interface Message Text Normal [facility] 1:1 Interactionon 02-15-2021 Joint Terminal Attack Controller Authentication Interface Message Text Normal [facility] BASIC METABOLIC PANELon 01-29 Anion gap [Moles/Vol] 11 mmol/L Normal 5-13 [facility] Comment on above: Performed By: #### Rajiv Roque, ALESHA8 ####[facility] [id number] [place], Calcium [Mass/Vol] 8.8 mg/dL Normal 8.4-10.4 [facility] Comment on above: Performed By: #### Rajiv Roque, ALESHA8 ####S PATHOLOGY [id number] [place], Chloride [Moles/Vol] 108 mmol/L Normal 97-111 [facility] Comment on above: Performed By: #### Rajiv Roque, ALESHA8 ####S PATHOLOGY [id number] [place], CO2 [Moles/Vol] 23 mmol/L Normal 21-30 [facility] Comment on above: Performed By: #### Rajiv Roque, ALESHA8 ####[facility] [id number] [place], Creatinine [Mass/Vol] 1.06 mg/dL Normal 0.80-1.30 [facility] Comment on above: Performed By: #### Rajiv Roque, ALESHA8 ####[facility] [id number] [place], ESTIMATED GFR (CKD-EPI) 69 mL/min/1.73sqm Normal >=60 [facility] Comment on above: Performed By: #### Rajiv Roque, CH8 ####[facility] [id number] [place], Glucose [Mass/Vol] 110 mg/dL Normal 80-116 [facility] Comment on above: Performed By: #### Rajiv Roque, CH8 ####[facility] [id number] [place], Potassium [Moles/Vol] 4.3 mmol/L Normal 3.3-5.3 [facility] Comment on above: Performed By: #### Rajiv Roque, CH8 ####S PATHOLOGY [id number] [place], Sodium [Moles/Vol] 138 mmol/L Normal 135-148 [facility] Comment on above: Performed By: #### Rajiv Roque, CH8 ####S PATHOLOGY [id number] [place], Urea nitrogen [Mass/Vol] 34 mg/dL High 8-22 [facility] Comment on above: Performed By: #### Rajiv Roque, ALESHA8 ####[facility] PATHOLOGY [id number] [place], COMPLETE BLOOD COUNTon 02-15 Erythrocyte distribution width (RBC) [Ratio] 14.8 % High 11.5-14.5 [facility] Comment on above: Performed By: #### C BC ####[facility] PATHOLOGY [id number] [place], Hematocrit (Bld) [Volume fraction] 30.1 % Low 41.0-53.0 [facility] Comment on above: Performed By: #### C BC ####[facility] PATHOLOGY [id number] [place], Hemoglobin (Bld) [Mass/Vol] 10.1 g/dL Low 13.9-16.3 [facility] Comment on above: Performed By: #### C BC ####[facility] PATHOLOGY [id number] [place], MCH (RBC) [Entitic mass] 31.3 pg Normal 26.0-34.0 [facility] Comment on above: Performed By: #### C BC ####[facility] PATHOLOGY [id number] [place], MCHC (RBC) [Mass/Vol] 33.5 g/dL Normal 32.0-35.9 [facility] Comment on above: Performed By: #### C BC ####S PATHOLOGY [id number] [place], MCV (RBC) [Entitic vol] 93 fL Normal 80-100 [facility] Comment on above: Performed By: #### C BC ####S PATHOLOGY [id number] [place], Plate[place] mean volume (Bld) [Entitic vol] 10.2 fL Normal 7.5-11.2 [facility] Comment on above: Performed By: #### C BC ####[facility] [id number] [place], Platelets (Bld) [#/Vol] 172 10*3/uL Normal 150-400 [facility] Comment on above: Performed By: #### C BC ####S PATHOLOGY [id number] [place], RBC (Bld) [#/Vol] 3.23 10*6/uL Low 4.50-5.90 [facility] Comment on above: Performed By: #### C BC ####S PATHOLOGY [id number] [place], WBC (Bld) [#/Vol] 9.1 10*3/uL Normal 4.5-11.5 [facility] Comment on above: Performed By: #### C BC ####[facility] PATHOLOGY [id number] [place], Care Plan Noteon 02-15-2021 [employer] Attack Controller Authentication Interface Message Text Normal [facility] Consultson 02-15-2021 Joint Terminal Attack Controller Authentication Interface Message Text Normal [facility] [employer] Attack Controller Authentication Interface Message Text Normal [facility] MAGNESIUMon 02-15-2021 Magnesium [Mass/Vol] 2.0 mg/dL Normal 1.6-2.8 [facility] Comment on above: Performed By: #### Rajiv G, CH8 ####S PATHOLOGY [id number] [place], Progress Noteson 02-15-2021 [employer] Attack Controller Authentication Interface Message Text Labs and vitals stable, known current state of variable aflutter block causing HR variability from 70-140s. No acute issues since ICU transfer. Normal [facility] Joint Terminal Attack Controller Authentication Interface Message Text Normal [facility] Joint Terminal Attack Controller Authentication Interface Message Text Normal [facility] 1:1 Interactionon 02-14-2021 Joint Terminal Attack Controller Authentication Interface Message Text Normal [facility] BASIC METABOLIC PANELon 01-29 Anion gap [Moles/Vol] 11 mmol/L Normal 5-13 [facility] Comment on above: Performed By: #### Rajiv Roque, CH8 ####S PATHOLOGY [id number] [place], Calcium [Mass/Vol] 8.6 mg/dL Normal 8.4-10.4 [facility] Comment on above: Performed By: #### aRjiv Roque, CH8 ####S PATHOLOGY [id number] [place], Chloride [Moles/Vol] 110 mmol/L Normal 97-111 [facility] Comment on above: Performed By: #### Rajiv Roque, ALESHA8 ####[facility] PATHOLOGY [id number] [place], CO2 [Moles/Vol] 24 mmol/L Normal 21-30 [facility] Comment on above: Performed By: #### Rajiv Roque, ALESHA8 ####[facility] PATHOLOGY [id number] [place], Creatinine [Mass/Vol] 0.92 mg/dL Normal 0.80-1.30 [facility] Comment on above: Performed By: ###Sabrina Roque, CH8 ####[facility] PATHOLOGY [id number] [place], ESTIMATED GFR (CKD-EPI) 82 mL/min/1.73sqm Normal >=60 [facility] Comment on above: Performed By: #### Rajiv Roque, CH8 ####S PATHOLOGY [id number] [place], Glucose [Mass/Vol] 116 mg/dL Normal 80-116 [facility] Comment on above: Performed By: #### Rajiv Roque, CH8 ####S PATHOLOGY [id number] [place], Potassium [Moles/Vol] 4.3 mmol/L Normal 3.3-5.3 [facility] Comment on above: Performed By: #### Rajiv Roque, CH8 ####[facility] PATHOLOGY [id number] [place], Sodium [Moles/Vol] 141 mmol/L Normal 135-148 [facility] Comment on above: Performed By: #### Rajiv Roque, CH8 ####[facility] PATHOLOGY [id number] [place], Urea nitrogen [Mass/Vol] 36 mg/dL High 8-22 [facility] Comment on above: Performed By: #### Rajiv Roque, CH8 ####[facility] PATHOLOGY [id number] [place], COMPLETE BLOOD COUNTon 02-14 Erythrocyte distribution width (RBC) [Ratio] 14.8 % High 11.5-14.5 [facility] Comment on above: Performed By: #### C BC ####[facility] PATHOLOGY [id number] [place], Hematocrit (Bld) [Volume fraction] 29.5 % Low 41.0-53.0 [facility] Comment on above: Performed By: #### C BC ####[facility] PATHOLOGY [id number] [place], Hemoglobin (Bld) [Mass/Vol] 9.9 g/dL Low 13.9-16.3 [facility] Comment on above: Performed By: #### C BC ####[facility] PATHOLOGY [id number] [place], MCH (RBC) [Entitic mass] 31.9 pg Normal 26.0-34.0 [facility] Comment on above: Performed By: #### C BC ####[facility] PATHOLOGY [id number] [place], MCHC (RBC) [Mass/Vol] 33.5 g/dL Normal 32.0-35.9 [facility] Comment on above: Performed By: #### C BC ####[facility] PATHOLOGY [id number] [place], MCV (RBC) [Entitic vol] 95 fL Normal 80-100 [facility] Comment on above: Performed By: #### C BC ####S PATHOLOGY [id number] [place], Plate[place] mean volume (Bld) [Entitic vol] 10.8 fL Normal 7.5-11.2 [facility] Comment on above: Performed By: #### C BC ####S PATHOLOGY [id number] [place], Platelets (Bld) [#/Vol] 131 10*3/uL Low 150-400 [facility] Comment on above: Performed By: #### C BC ####[facility] PATHOLOGY [id number] [place], RBC (Bld) [#/Vol] 3.09 10*6/uL Low 4.50-5.90 [facility] Comment on above: Performed By: #### C BC ####[facility] PATHOLOGY [id number] [place], WBC (Bld) [#/Vol] 6.8 10*3/uL Normal 4.5-11.5 [facility] Comment on above: Performed By: #### C BC ####[facility] PATHOLOGY [id number] [place], Care Plan Noteon 02-14-2021 [employer] Attack Controller Authentication Interface Message Text Normal [facility] Joint [employer] Attack Controller Authentication Interface Message Text Normal [facility] Consultson 02-14-2021 Joint Terminal Attack Controller Authentication Interface Message Text Normal [facility] Joint Terminal Attack Controller Authentication Interface Message Text Normal [facility] Joint Terminal Attack Controller Authentication Interface Message Text Normal [facility] MAGNESIUMon 02-14-2021 Magnesium [Mass/Vol] 2.5 mg/dL Normal 1.6-2.8 [facility] Comment on above: Performed By: #### Rajiv Roque CH8 ####[facility] PATHOLOGY [id number] [place], Progress Noteson 02-14-2021 [employer] Attack Controller Authentication Interface Message Text Normal [facility] Joint [employer] Attack Controller Authentication Interface Message Text Normal [facility] [employer] Attack Controller Authentication Interface Message Text Normal [facility] BASIC METABOLIC PANELon 01-29 Anion gap [Moles/Vol] 9 mmol/L Normal 5-13 [facility] Comment on above: Performed By: #### C H8, MG ####[facility] [id number] [place], Calcium [Mass/Vol] 8.9 mg/dL Normal 8.4-10.4 [facility] Comment on above: Performed By: #### C H8, MG ####[facility] [id number] [place], Chloride [Moles/Vol] 108 mmol/L Normal 97-111 [facility] Comment on above: Performed By: #### C H8, MG ####[facility] [id number] [place], CO2 [Moles/Vol] 27 mmol/L Normal 21-30 [facility] Comment on above: Performed By: #### C H8, MG ####[facility] [id number] [place], Creatinine [Mass/Vol] 0.89 mg/dL Normal 0.80-1.30 [facility] Comment on above: Performed By: #### C H8, MG ####[facility] [id number] [place], ESTIMATED GFR (CKD-EPI) 84 mL/min/1.73sqm Normal >=60 [facility] Comment on above: Performed By: #### C H8, MG ####[facility] [id number] [place], Glucose [Mass/Vol] 127 mg/dL High 80-116 [facility] Comment on above: Performed By: #### C H8, MG ####[facility] [id number] [place], Potassium [Moles/Vol] 3.9 mmol/L Normal 3.3-5.3 [facility] Comment on above: Performed By: #### C H8, MG ####[facility] [id number] [place], [place], Sodium [Moles/Vol] 140 mmol/L Normal 135-148 [facility] Comment on above: Performed By: #### C H8, MG ####S PATHOLOGY [id number] [place], Urea nitrogen [Mass/Vol] 29 mg/dL High 8-22 [facility] Comment on above: Performed By: #### C H8, MG ####[facility] PATHOLOGY [id number] [place], COMPLETE BLOOD COUNTon 02-13 Erythrocyte distribution width (RBC) [Ratio] 14.5 % Normal 11.5-14.5 [facility] Comment on above: Performed By: #### C BC ####[facility] PATHOLOGY [id number] [place], Hematocrit (Bld) [Volume fraction] 29.0 % Low 41.0-53.0 [facility] Comment on above: Performed By: #### C BC ####[facility] PATHOLOGY [id number] [place], Hemoglobin (Bld) [Mass/Vol] 9.8 g/dL Low 13.9-16.3 [facility] Comment on above: Performed By: #### C BC ####[facility] PATHOLOGY [id number] [place], MCH (RBC) [Entitic mass] 31.6 pg Normal 26.0-34.0 [facility] Comment on above: Performed By: #### C BC ####S PATHOLOGY [id number] [place], MCHC (RBC) [Mass/Vol] 33.9 g/dL Normal 32.0-35.9 [facility] Comment on above: Performed By: #### C BC ####S PATHOLOGY [id number] [place], MCV (RBC) [Entitic vol] 93 fL Normal 80-100 [facility] Comment on above: Performed By: #### C BC ####S PATHOLOGY [id number] [place], Platelet mean volume (Bld) [Entitic vol] 10.8 fL Normal 7.5-11.2 [facility] Comment on above: Performed By: #### C BC ####S PATHOLOGY [id number] [place], Platelets (Bld) [#/Vol] 132 10*3/uL Low 150-400 [facility] Comment on above: Performed By: #### C BC ####S PATHOLOGY [id number] [place], RBC (Bld) [#/Vol] 3.11 10*6/uL Low 4.50-5.90 [facility] Comment on above: Performed By: #### C BC ####[facility] PATHOLOGY [id number] [place], WBC (Bld) [#/Vol] 7.1 10*3/uL Normal 4.5-11.5 [facility] Comment on above: Performed By: #### C BC ####[facility] PATHOLOGY [id number] [place], Consultson 02-13-2021 [employer] Authentication Interface Message Text Normal [facility] [employer] Authentication Interface Message Text Normal [facility] MAGNESIUMon 02-13-2021 Magnesium [Mass/Vol] 1.9 mg/dL Normal 1.6-2.8 [facility] Comment on above: Performed By: #### C H8, MG ####[facility] PATHOLOGY [id number] [place], Progress Noteson 02-13-2021 [employer] Authentication Interface Message Text Normal [facility] [employer] Authentication Interface Message Text Normal [facility] 1:1 Interactionon 02-12-2021 [employer] Authentication Interface Message Text Normal [facility] BASIC METABOLIC PANELon 01-29 Anion gap [Moles/Vol] 10 mmol/L Normal 5-13 [facility] Comment on above: Performed By: #### C H8, MG, DIG ####S PATHOLOGY [id number] [place], Calcium [Mass/Vol] 8.7 mg/dL Normal 8.4-10.4 [facility] Comment on above: Performed By: #### C H8, MG, DIG ####[facility] [id number] [place], Chloride [Moles/Vol] 108 mmol/L Normal 97-111 [facility] Comment on above: Performed By: #### C H8, MG, DIG ####[facility] [id number] [place], CO2 [Moles/Vol] 26 mmol/L Normal 21-30 [facility] Comment on above: Performed By: #### C H8, MG, DIG ####[facility] [id number] [place], Creatinine [Mass/Vol] 1.10 mg/dL Normal 0.80-1.30 [facility] Comment on above: Performed By: #### C H8, MG, DIG ####[facility] [id number] [place], ESTIMATED GFR (CKD-EPI) 66 mL/min/1.73sqm Normal >=60 [facility] Comment on above: Performed By: #### C HSajan, MG, DIG ####[facility] [id number] [place], Glucose [Mass/Vol] 116 mg/dL Normal 80-116 [facility] Comment on above: Performed By: #### C H8, MG, DIG ####[facility] [id number] [place], Potassium [Moles/Vol] 4.2 mmol/L Normal 3.3-5.3 [facility] Comment on above: Performed By: #### C H8, MG, DIG ####[facility] [id number] [place], Sodium [Moles/Vol] 140 mmol/L Normal 135-148 [facility] Comment on above: Performed By: #### C H8, MG, DIG ####[facility] [id number] [place], Urea nitrogen [Mass/Vol] 33 mg/dL High 8-22 [facility] Comment on above: Performed By: #### C H8, MG, DIG ####[facility] PATHOLOGY [id number] [place], COMPLETE BLOOD COUNTon 02-12 Erythrocyte distribution width (RBC) [Ratio] 14.5 % Normal 11.5-14.5 [facility] Comment on above: Performed By: #### C BC ####[facility] PATHOLOGY [id number] [place] [address], Hematocrit (Bld) [Volume fraction] 27.5 % Low 41.0-53.0 [facility] Comment on above: Performed By: #### C BC ####[facility] PATHOLOGY [id number] [place] [address], Hemoglobin (Bld) [Mass/Vol] 9.2 g/dL Low 13.9-16.3 [facility] Comment on above: Performed By: #### C BC ####[facility] PATHOLOGY [id number] [place] [address], MCH (RBC) [Entitic mass] 31.1 pg Normal 26.0-34.0 [facility] Comment on above: Performed By: #### C BC ####[facility] PATHOLOGY [id number] [place] [address], MCHC (RBC) [Mass/Vol] 33.4 g/dL Normal 32.0-35.9 [facility] Comment on above: Performed By: #### C BC ####[facility] PATHOLOGY [id number] [place] [address], MCV (RBC) [Entitic vol] 93 fL Normal 80-100 [facility] Comment on above: Performed By: #### C BC ####[facility] PATHOLOGY [id number] [place], Platelet mean volume (Bld) [Entitic vol] 10.8 fL Normal 7.5-11.2 [facility] Comment on above: Performed By: #### C BC ####[facility] PATHOLOGY [id number] [place] [address], Platelets (Bld) [#/Vol] 109 10*3/uL Low 150-400 [facility] Comment on above: Performed By: #### C BC ####[facility] [id number] [place], RBC (Bld) [#/Vol] 2.95 10*6/uL Low 4.50-5.90 [facility] Comment on above: Performed By: #### C BC ####[facility] [id number] [place], WBC (Bld) [#/Vol] 7.5 10*3/uL Normal 4.5-11.5 [facility] Comment on above: Performed By: #### C BC ####[facility] [id number] [place], Care Plan Noteon 02-12-2021 [employer] Authentication Interface Message Text Normal [facility] Consultson 02-12-2021 [employer] Authentication Interface Message Text Normal [facility] [employer] Authentication Interface Message Text Normal [facility] [employer] Authentication Interface Message Text Normal [facility] DIGOXINon 02-12-2021 DIG 0.92 ng/mL Normal 0.80-2.00 [facility] Comment on above: Performed By: #### Austyn H8, MG, DIG ####[facility] [id number] [place], [place] MODIFIED BARIUM SWALLOWon 02-12-2021 [place] MODIFIED BARIUM SWALLOW Normal [facility] MAGNESIUMon 02-12-2021 Magnesium [Mass/Vol] 2.0 mg/dL Normal 1.6-2.8 [facility] Comment on above: Performed By: #### C H8, MG, DIG ####[facility] [id number] [place], Progress Noteson 02-12-2021 [employer] Authentication Interface Message Text Normal [facility] [employer] Authentication Interface Message Text Normal [facility] BASIC METABOLIC PANELon 01-29 Anion gap [Moles/Vol] 10 mmol/L Normal 5-13 [facility] Comment on above: Performed By: #### C H8, MG ####[facility] [id number] [place], Calcium [Mass/Vol] 8.6 mg/dL Normal 8.4-10.4 [facility] Comment on above: Performed By: #### Austyn Saleh8, MG ####[facility] [id number] [place], Chloride [Moles/Vol] 106 mmol/L Normal 97-111 [facility] Comment on above: Performed By: #### Austyn Tamez, MG ####[facility] [id number] [place], CO2 [Moles/Vol] 26 mmol/L Normal 21-30 [facility] Comment on above: Performed By: #### Austyn Tamez, MG ####[facility] [id number] [place], Creatinine [Mass/Vol] 1.01 mg/dL Normal 0.80-1.30 [facility] Comment on above: Performed By: #### Austyn Tamez, MG ####[facility] [id number] [place], ESTIMATED GFR (CKD-EPI) 73 mL/min/1.73sqm Normal >=60 [facility] Comment on above: Performed By: #### Austyn Tamez, MG ####[facility] [id number] [place], Glucose [Mass/Vol] 121 mg/dL High 80-116 [facility] Comment on above: Performed By: #### Austyn H8, MG ####[facility] [id number] [place], Potassium [Moles/Vol] 4.0 mmol/L Normal 3.3-5.3 [facility] Comment on above: Performed By: #### Austyn H8, MG ####[facility] [id number] [place], Sodium [Moles/Vol] 138 mmol/L Normal 135-148 [facility] Comment on above: Performed By: #### Austyn H8, MG ####[facility] [id number] [place], Urea nitrogen [Mass/Vol] 22 mg/dL Normal 8-22 [facility] Comment on above: Performed By: #### C H8, MG ####[facility] PATHOLOGY [id number] [place], COMPLETE BLOOD COUNTon 02-11 Erythrocyte distribution width (RBC) [Ratio] 14.1 % Normal 11.5-14.5 [facility] Comment on above: Performed By: #### C BC ####[facility] PATHOLOGY [id number] [place], Hematocrit (Bld) [Volume fraction] 29.6 % Low 41.0-53.0 [facility] Comment on above: Performed By: #### C BC ####[facility] PATHOLOGY [id number] [place], Hemoglobin (Bld) [Mass/Vol] 10.2 g/dL Low 13.9-16.3 [facility] Comment on above: Performed By: #### C BC ####[facility] PATHOLOGY [id number] [place], MCH (RBC) [Entitic mass] 32.3 pg Normal 26.0-34.0 [facility] Comment on above: Performed By: #### C BC ####[facility] PATHOLOGY [id number] [place], MCHC (RBC) [Mass/Vol] 34.4 g/dL Normal 32.0-35.9 [facility] Comment on above: Performed By: #### C BC ####[facility] PATHOLOGY [id number] [place], MCV (RBC) [Entitic vol] 94 fL Normal 80-100 [facility] Comment on above: Performed By: #### C BC ####[facility] PATHOLOGY [id number] [place], Platelet mean volume (Bld) [Entitic vol] 10.3 fL Normal 7.5-11.2 [facility] Comment on above: Performed By: #### C BC ####[facility] [id number] [place], Platelets (Bld) [#/Vol] 101 10*3/uL Low 150-400 [facility] Comment on above: Performed By: #### C BC ####S PATHOLOGY [id number] [place], RBC (Bld) [#/Vol] 3.15 10*6/uL Low 4.50-5.90 [facility] Comment on above: Performed By: #### C BC ####S PATHOLOGY [id number] [place], WBC (Bld) [#/Vol] 8.2 10*3/uL Normal 4.5-11.5 [facility] Comment on above: Performed By: #### C BC ####[facility] PATHOLOGY [id number] [place], Care Plan Noteon 02-11-2021 [employer] Authentication Interface Message Text Normal [facility] [employer] Authentication Interface Message Text Normal [facility] Consultson 02-11-2021 [employer] Authentication Interface Message Text Normal [facility] DIGOXINon 02-11-2021 DIG 1.91 ng/mL Normal 0.80-2.00 [facility] Comment on above: Performed By: #### D IG ####S PATHOLOGY [id number] [place], MAGNESIUMon 02-11-2021 Magnesium [Mass/Vol] 2.0 mg/dL Normal 1.6-2.8 [facility] Comment on above: Performed By: #### C H8, MG ####S PATHOLOGY [id number] [place], Progress Noteson 02-11-2021 [employer] Authentication Interface Message Text Normal [facility] [employer] Authentication Interface Message Text Normal [facility] [employer] Authentication Interface Message Text Normal [facility] [employer] Authentication Interface Message Text Normal [facility] [employer] Authentication Interface Message Text Normal [facility] 1:1 Interactionon 02-10-2021 [employer] Authentication Interface Message Text Normal [facility] ANTI FXA-LMW HEPARINon 02-10 ANTI FXA-LMW HEPARIN ASSAY 1.35 IU/mL Normal [facility] Comment on above: Order Comment: The r ecommended therapeutic range for treatment of thrombosis with Low Molecular Weight Heparin is 0.5 - 1.0 IU/mLThe recommended range for VTE prophylaxis with Low Molecular Weight Heparin is 0.2 - 0.4 IU/mL. Performed By: #### A XL ####S PATHOLOGY [id number] [place] [address], BASIC METABOLIC PANELon 01-29 Anion gap [Moles/Vol] 9 mmol/L Normal 5-13 [facility] Comment on above: Performed By: #### Austyn Tamez, MG ####S PATHOLOGY [id number] [place] [address], Calcium [Mass/Vol] 8.9 mg/dL Normal 8.4-10.4 [facility] Comment on above: Performed By: #### Austyn Tamez, MG ####[facility] PATHOLOGY [id number] [place] [address], Chloride [Moles/Vol] 110 mmol/L Normal 97-111 [facility] Comment on above: Performed By: #### Austyn Tamez, MG ####[facility] PATHOLOGY [id number] [place] [address], CO2 [Moles/Vol] 26 mmol/L Normal 21-30 [facility] Comment on above: Performed By: #### Austyn Tamez, MG ####S PATHOLOGY [id number] [place] [address], Creatinine [Mass/Vol] 1.10 mg/dL Normal 0.80-1.30 [facility] Comment on above: Performed By: #### Austyn Saleh8, MG ####S PATHOLOGY [id number] [place] [address], ESTIMATED GFR (CKD-EPI) 66 mL/min/1.73sqm Normal >=60 [facility] Comment on above: Performed By: #### Austyn Saleh8, MG ####S PATHOLOGY [id number] [place] [address], Glucose [Mass/Vol] 128 mg/dL High 80-116 [facility] Comment on above: Performed By: #### Austyn H8, MG ####S PATHOLOGY [id number] [place], Potassium [Moles/Vol] 3.7 mmol/L Normal 3.3-5.3 [facility] Comment on above: Performed By: #### Austyn H8, MG ####[facility] PATHOLOGY [id number] [place], Sodium [Moles/Vol] 141 mmol/L Normal 135-148 [facility] Comment on above: Performed By: #### Austyn Saleh8, MG ####[facility] PATHOLOGY [id number] [place] [address], Urea nitrogen [Mass/Vol] 17 mg/dL Normal 8-22 [facility] Comment on above: Performed By: #### Austyn Saleh8, MG ####[facility] PATHOLOGY [id number] [place] [address], COMPLETE BLOOD COUNTon 02-10 Erythrocyte distribution width (RBC) [Ratio] 14.0 % Normal 11.5-14.5 [facility] Comment on above: Performed By: #### C BC ####[facility] PATHOLOGY [id number] [place], Hematocrit (Bld) [Volume fraction] 29.7 % Low 41.0-53.0 [facility] Comment on above: Performed By: #### C BC ####[facility] PATHOLOGY [id number] [place], Hemoglobin (Bld) [Mass/Vol] 10.1 g/dL Low 13.9-16.3 [facility] Comment on above: Performed By: #### C BC ####S PATHOLOGY [id number] [place] [address], MCH (RBC) [Entitic mass] 31.5 pg Normal 26.0-34.0 [facility] Comment on above: Performed By: #### C BC ####S PATHOLOGY [id number] [place] [address], MCHC (RBC) [Mass/Vol] 34.0 g/dL Normal 32.0-35.9 [facility] Comment on above: Performed By: #### C BC ####S PATHOLOGY [id number] [place], MCV (RBC) [Entitic vol] 93 fL Normal 80-100 [facility] Comment on above: Performed By: #### C BC ####[facility] PATHOLOGY [id number] [place], Platelet mean volume (Bld) [Entitic vol] 10.6 fL Normal 7.5-11.2 [facility] Comment on above: Performed By: #### C BC ####S PATHOLOGY [id number] [place], Platelets (Bld) [#/Vol] 90 10*3/uL Low 150-400 [facility] Comment on above: Performed By: #### C BC ####[facility] PATHOLOGY [id number] [place], RBC (Bld) [#/Vol] 3.20 10*6/uL Low 4.50-5.90 [facility] Comment on above: Performed By: #### C BC ####[facility] PATHOLOGY [id number] [place], WBC (Bld) [#/Vol] 6.9 10*3/uL Normal 4.5-11.5 [facility] Comment on above: Performed By: #### C BC ####[facility] PATHOLOGY [id number] [place] [address], Care Plan Noteon 02-10-2021 [employer] Authentication Interface Message Text Normal [facility] [employer] Authentication Interface Message Text Normal [facility] Consultson 02-10-2021 [employer] Authentication Interface Message Text Normal [facility] ED US FOCUSED CARDIACon 01-29 ED US FOCUSED CARDIAC Normal [facility] MAGNESIUMon 02-10-2021 Magnesium [Mass/Vol] 1.7 mg/dL Normal 1.6-2.8 [facility] Comment on above: Performed By: #### Austyn Tamez, MG ####S PATHOLOGY [id number] [place], Progress Noteson 02-10-2021 [employer] Authentication Interface Message Text Normal [facility] [employer] Authentication Interface Message Text Normal [facility] [employer] Authentication Interface Message Text Normal [facility] Treatment Plan Noteon 2020 [employer] Authentication Interface Message Text Normal [facility] XR CHEST AP OR PA 1 VIEWon 0 02-10-2021 XR CHEST AP OR PA 1 VIEW Normal [facility] ANTI FXA-LMW HEPARINon 02-09 ANTI FXA-LMW HEPARIN ASSAY 0.41 IU/mL Normal [facility] Comment on above: Order Comment: The r ecommended therapeutic range for treatment of thrombosis with Low Molecular Weight Heparin is 0.5 - 1.0 IU/mLThe recommended range for VTE prophylaxis with Low Molecular Weight Heparin is 0.2 - 0.4 IU/mL. Performed By: #### A XL ####S PATHOLOGY [id number] [place], BASIC METABOLIC PANELon 01-29 Anion gap [Moles/Vol] 12 mmol/L Normal 5-13 [facility] Comment on above: Performed By: #### Austyn Tamez, MG ####S PATHOLOGY [id number] [place], Calcium [Mass/Vol] 8.4 mg/dL Normal 8.4-10.4 [facility] Comment on above: Performed By: #### Austyn Tamez, MG ####S PATHOLOGY [id number] [place], Chloride [Moles/Vol] 114 mmol/L High 97-111 [facility] Comment on above: Performed By: #### Austyn Tamez, MG ####[facility] [id number] [place], CO2 [Moles/Vol] 22 mmol/L Normal 21-30 [facility] Comment on above: Performed By: #### Austyn Tamez, MG ####S PATHOLOGY [id number] [place], Creatinine [Mass/Vol] 1.04 mg/dL Normal 0.80-1.30 [facility] Comment on above: Performed By: #### Austyn Tamez, MG ####[facility] PATHOLOGY [id number] [place] [address], ESTIMATED GFR (CKD-EPI) 70 mL/min/1.73sqm Normal >=60 [facility] Comment on above: Performed By: #### Austyn Tamez, MG ####S PATHOLOGY [id number] [place] [address], Glucose [Mass/Vol] 103 mg/dL Normal 80-116 [facility] Comment on above: Performed By: #### Austyn Tamez, MG ####S PATHOLOGY [id number] [place] [address], Potassium [Moles/Vol] 3.7 mmol/L Normal 3.3-5.3 [facility] Comment on above: Performed By: #### Austyn Tamez, MG ####[facility] PATHOLOGY [id number] [place] [address], Sodium [Moles/Vol] 144 mmol/L Normal 135-148 [facility] Comment on above: Performed By: #### Austyn Tamez, MG ####[facility] PATHOLOGY [id number] [place] [address], Urea nitrogen [Mass/Vol] 18 mg/dL Normal 8-22 [facility] Comment on above: Performed By: ###Sabrina Tamez, MG ####S PATHOLOGY [id number] [place] [address], COMPLETE BLOOD COUNTon 02-09 Erythrocyte distribution width (RBC) [Ratio] 14.0 % Normal 11.5-14.5 [facility] Comment on above: Performed By: #### Austyn FAJARDO ####S PATHOLOGY [id number] [place] [address], Hematocrit (Bld) [Volume fraction] 29.9 % Low 41.0-53.0 [facility] Comment on above: Performed By: #### Austyn FAJARDO ####S PATHOLOGY [id number] [place], Hemoglobin (Bld) [Mass/Vol] 10.1 g/dL Low 13.9-16.3 [facility] [facility] Comment on above: Performed By: #### C BC ####[facility] PATHOLOGY [id number] [place], [place], MCH (RBC) [Entitic mass] 31.7 pg Normal 26.0-34.0 The [facility] Comment on above: Performed By: #### C BC ####[facility] PATHOLOGY [id number] [place], MCHC (RBC) [Mass/Vol] 33.7 g/dL Normal 32.0-35.9 The [facility] Comment on above: Performed By: #### C BC ####[facility] PATHOLOGY [id number] [place] [address], MCV (RBC) [Entitic vol] 94 fL Normal 80-100 The [facility] Comment on above: Performed By: #### C BC ####[facility] PATHOLOGY [id number] [place], Platelet mean volume (Bld) [Entitic vol] 10.8 fL Normal 7.5-11.2 [facility] Comment on above: Performed By: #### C BC ####[facility] PATHOLOGY [id number] [place], Platelets (Bld) [#/Vol] 92 10*3/uL Low 150-400 The [facility] Comment on above: Performed By: #### C BC ####[facility] PATHOLOGY [id number] [place], RBC (Bld) [#/Vol] 3.18 10*6/uL Low 4.50-5.90 The [facility] Comment on above: Performed By: #### C BC ####[facility] PATHOLOGY [id number] [place], WBC (Bld) [#/Vol] 6.5 10*3/uL Normal 4.5-11.5 [facility] Comment on above: Performed By: #### C BC ####[facility] PATHOLOGY [id number] [place], Care Plan Noteon 02-09-2021 [employer] Authentication Interface Message Text Normal [facility] [employer] Controller Authentication Interface Message Text Normal [facility] Consultson 02-09-2021 [employer] Controller Authentication Interface Message Text Normal [facility] MAGNESIUMon 02-09-2021 Magnesium [Mass/Vol] 2.0 mg/dL Normal 1.6-2.8 The [facility] Comment on above: Performed By: #### C H8, MG ####[facility] [id number] [place], Progress Noteson 02-09-2021 [employer] Controller Authentication Interface Message Text Normal [facility] [employer] Attack Controller Authentication Interface Message Text Normal [facility] XR CHEST AP OR PA 1 VIEWon 0 02-09-2021 XR CHEST AP OR PA 1 VIEW Normal [facility] 1:1 Interactionon 02-08-2021 [employer] Controller Authentication Interface Message Text Normal [facility] AMMONIAon 02-08-2021 AMMO 14 umol/L Normal 11-35 The [facility] Comment on above: Performed By: #### A MMO ####S PATHOLOGY [id number] [place], BASIC METABOLIC PANELon 01-29 Anion gap [Moles/Vol] 8 mmol/L Normal 5-13 The [facility] Comment on above: Performed By: #### C H8, MG, CK ####[facility] [id number] [place], Calcium [Mass/Vol] 8.2 mg/dL Low 8.4-10.4 The [facility] Comment on above: Performed By: #### Austyn H8, MG, CK ####[facility] [id number] [place], Chloride [Moles/Vol] 117 mmol/L High 97-111 The [facility] Comment on above: Performed By: #### C H8, MG, CK ####[facility] [id number] [place], CO2 [Moles/Vol] 22 mmol/L Normal 21-30 The [facility] Comment on above: Performed By: #### Austyn Tamez MG, CK ####S PATHOLOGY [id number] [place], Creatinine [Mass/Vol] 0.99 mg/dL Normal 0.80-1.30 The [facility] Comment on above: Performed By: #### Austyn Tamez MG, CK ####[facility] PATHOLOGY [id number] [place], ESTIMATED GFR (CKD-EPI) 75 mL/min/1.73sqm Normal >=60 The [facility] Comment on above: Performed By: #### Austyn Tamez MG, CK ####[facility] PATHOLOGY [id number] [place], Glucose [Mass/Vol] 93 mg/dL Normal 80-116 The [facility] Comment on above: Performed By: #### Austyn Tamez MG, CK ####[facility] PATHOLOGY [id number] [place], Potassium [Moles/Vol] 3.9 mmol/L Normal 3.3-5.3 The [facility] Comment on above: Performed By: #### Austyn Tamez MG, CK ####[facility] PATHOLOGY [id number] [place], Sodium [Moles/Vol] 143 mmol/L Normal 135-148 The [facility] Comment on above: Performed By: #### Austyn Tamez MG, CK ####S PATHOLOGY [id number] [place], Urea nitrogen [Mass/Vol] 17 mg/dL Normal 8-22 The [facility] Comment on above: Performed By: #### Austyn HSajan MG, CK ####S PATHOLOGY [id number] [place], BLOOD GAS, ARTERIALon 2020 CR % O2 SAT > 99.4 Normal >=95.1 The [facility] Comment on above: Performed By: #### Austyn R BGA ####S PATHOLOGY [id number] [place], CR MAYCOL -3.3 mmol/L Low -2.0-2.0 [facility] Comment on above: Performed By: #### C R BGA ####[facility] PATHOLOGY [id number] [place], CR PCO2 30.3 mm Hg Low 35.0-45.0 [facility] Comment on above: Performed By: #### C R BGA ####[facility] PATHOLOGY [id number] [place] [address], CR PHA 7.430 Normal 7.35-7.45 [facility] Comment on above: Performed By: #### C R BGA ####[facility] PATHOLOGY [id number] [place] [address], CR PO2 179 mm Hg High 80-100 mm Hg [facility] Comment on above: Performed By: #### C R BGA ####[facility] PATHOLOGY [id number] [place] [address], FIO2 (CATEGORY) 5 LPM Normal [facility] Comment on above: Performed By: #### C R BGA ####[facility] PATHOLOGY [id number] [place] [address], HCO3 (Bld) [Moles/Vol] 20 mmol/L Low 22-28 Th e [facility] Comment on above: Performed By: #### C R BGA ####[facility] PATHOLOGY [id number] [place], MODE Nasal Canula Normal [facility] Comment on above: Performed By: #### C R BGA ####[facility] PATHOLOGY [id number] [place] [address], COMPLETE BLOOD COUNTon 02-08 Erythrocyte distribution width (RBC) [Ratio] 14.3 % Normal 11.5-14.5 [facility] Comment on above: Performed By: #### C BC ####[facility] PATHOLOGY [id number] [place], Hematocrit (Bld) [Volume fraction] 31.5 % Low 41.0-53.0 [facility] Comment on above: Performed By: #### C BC ####[facility] PATHOLOGY [id number] [place], Hemoglobin (Bld) [Mass/Vol] 10.4 g/dL Low 13.9-16.3 [facility] Comment on above: Performed By: #### C BC ####[facility] PATHOLOGY [id number] [place], MCH (RBC) [Entitic mass] 31.1 pg Normal 26.0-34.0 [facility] Comment on above: Performed By: #### C BC ####[facility] PATHOLOGY [id number] [place], MCHC (RBC) [Mass/Vol] 33.1 g/dL Normal 32.0-35.9 [facility] Comment on above: Performed By: #### C BC ####[facility] PATHOLOGY [id number] [place], MCV (RBC) [Entitic vol] 94 fL Normal 80-100 [facility] Comment on above: Performed By: #### C BC ####[facility] PATHOLOGY [id number] [place], Platelet mean volume (Bld) [Entitic vol] 11.0 fL Normal 7.5-11.2 [facility] Comment on above: Performed By: #### C BC ####[facility] PATHOLOGY [id number] [place], Platelets (Bld) [#/Vol] 80 10*3/uL Low 150-400 [facility] Comment on above: Performed By: #### C BC ####[facility] PATHOLOGY [id number] [place], RBC (Bld) [#/Vol] 3.34 10*6/uL Low 4.50-5.90 [facility] Comment on above: Performed By: #### C BC ####[facility] PATHOLOGY [id number] [place], WBC (Bld) [#/Vol] 6.9 10*3/uL Normal 4.5-11.5 The [facility] Comment on above: Performed By: #### C BC ####[facility] PATHOLOGY [id number] [place], CREATINE KINASEon 02-08-2021 CK [Catalytic activity/Vol] 1850 U/L High 57-374 The [facility] Comment on above: Performed By: #### C H8, MG, CK ####[facility] PATHOLOGY [id number] [place], [place], [place] CEREBRAL PERFUSION W/+W/O CONTRASTon 02-08-2021 CT CEREBRAL PERFUSION W/+W/O CONTRAST Normal The [facility] Care Plan Noteon 02-08-2021 [employer] Controller Authentication Interface Message Text Normal [facility] [employer] Controller Authentication Interface Message Text Normal [facility] Consultson 02-08-2021 [employer] Attack Controller Authentication Interface Message Text Normal [facility] [employer] Controller Authentication Interface Message Text Normal The [facility] [employer] Controller Authentication Interface Message Text Normal The [facility] [employer] Attack Controller Authentication Interface Message Text Normal The [facility] FULL LIPID PROFILEon 021 Cholesterol [Mass/Vol] 139 mg/dL Normal <181 Th e [facility] Comment on above: Performed By: #### H DL ####[facility] PATHOLOGY [id number] [place], Cholesterol in LDL [Mass/Vol] 85 mg/dL Normal <111 The [facility] Comment on above: Performed By: #### H DL ####[facility] PATHOLOGY [id number] [place], Cholesterol.total/Chol esterol in HDL [Mass ratio] 3.48 {ratio} Normal The [facility] Comment on above: Performed By: #### H DL ####S PATHOLOGY [id number] [place], HDL CHOL 40 mg/dL Low >44 The [facility] Comment on above: Performed By: #### H DL ####S PATHOLOGY [id number] [place], LDL/HDL 2.13 Normal <3.57 The [facility] Comment on above: Performed By: #### H DL ####S PATHOLOGY [id number] [place], NON-HDL CHOLESTEROL 99 mg/dL Normal <130 [facility] Comment on above: Performed By: #### H DL ####S PATHOLOGY [id number] [place], Triglyceride [Mass/Vol] 108 mg/dL Normal <151 [facility] Comment on above: Performed By: #### H DL ####[facility] PATHOLOGY [id number] [place], MAGNESIUMon 02-08-2021 Magnesium [Mass/Vol] 1.8 mg/dL Normal 1.6-2.8 [facility] Comment on above: Performed By: #### M G ####[facility] PATHOLOGY [id number] [place], Magnesium [Mass/Vol] 1.7 mg/dL Normal 1.6-2.8 [facility] Comment on above: Performed By: #### C H8, MG, CK ####[facility] PATHOLOGY [id number] [place], Procedureson 02-08-2021 [employer] Controller Authentication Interface Message Text Normal [facility] Joint [employer] Attack Controller Authentication Interface Message Text Normal [facility] [employer] Attack Controller Authentication Interface Message Text Normal [facility] Progress Noteson 02-08-2021 Joint [employer] Attack Controller Authentication Interface Message Text Normal [facility] [employer] Attack Controller Authentication Interface Message Text Normal [facility] [employer] Attack Controller Authentication Interface Message Text Normal [facility] Joint [employer] Attack Controller Authentication Interface Message Text Normal [facility] Joint [employer] Attack Controller Authentication Interface Message Text Normal [facility] XR ABDOMEN APon 02-08-2021 XR ABDOMEN AP Normal [facility] XR CHEST AP OR PA 1 VIEWon 0 02-08-2021 XR CHEST AP OR PA 1 VIEW Normal [facility] XR CHEST AP OR PA 1 VIEW Normal [facility] 1:1 Interactionon 02-07-2021 [employer] Attack Controller Authentication Interface Message Text Normal [facility] BASIC METABOLIC PANELon 01-29 Anion gap [Moles/Vol] 11 mmol/L Normal 5-13 [facility] Comment on above: Performed By: #### P HOS, CH8, CK, MG ####[facility] [id number] [place], Calcium [Mass/Vol] 8.1 mg/dL Low 8.4-10.4 The [facility] Comment on above: Performed By: #### P HOS, CH8, CK, MG ####[facility] [id number] [place], Chloride [Moles/Vol] 119 mmol/L High 97-111 The [facility] Comment on above: Performed By: #### P HOS, CH8, CK, MG ####S PATHOLOGY [id number] [place], CO2 [Moles/Vol] 21 mmol/L Normal 21-30 The [facility] Comment on above: Performed By: #### P HOS, CH8, CK, MG ####S PATHOLOGY [id number] [place], Creatinine [Mass/Vol] 1.05 mg/dL Normal 0.80-1.30 The [facility] Comment on above: Performed By: #### P HOS, CH8, CK, MG ####S PATHOLOGY [id number] [place], ESTIMATED GFR (CKD-EPI) 70 mL/min/1.73sqm Normal >=60 The [facility] Comment on above: Performed By: #### P HOS, CH8, CK, MG ####S PATHOLOGY [id number] [place], Glucose [Mass/Vol] 98 mg/dL Normal 80-116 The [facility] Comment on above: Performed By: #### P HOS, CH8, CK, MG ####S PATHOLOGY [id number] [place], Potassium [Moles/Vol] 4.0 mmol/L Normal 3.3-5.3 The [facility] Comment on above: Performed By: #### P HOS, CH8, CK, MG ####[facility] [id number] [place], Sodium [Moles/Vol] 147 mmol/L Normal 135-148 The [facility] Comment on above: Performed By: #### P HOS, CH8, CK, MG ####[facility] PATHOLOGY [id number] [place], Urea nitrogen [Mass/Vol] 26 mg/dL High 8-22 The [facility] Comment on above: Performed By: #### P HOS, CH8, CK, MG ####[facility] PATHOLOGY [id number] [place], BLOOD CULTUREon 02-07-2021 Bacteria identified Cx Nom (Bld) C BLOOD: No Growth Normal The [facility] Comment on above: Order Comment: The r esults may be compromised due to inadequate volume of fluid received. A negative result does not rule out an infectious process. Performed By: #### C BLOOD ####[facility] Hmpjsgzih5087 [place], [place] BLOOD GAS, ARTERIALon 2020 CR MAYCOL -4.3 mmol/L Low -2.0-2.0 The [facility] Comment on above: Performed By: #### C R BGA ####[facility] PATHOLOGY [id number] [place], CR PCO2 35.1 mm Hg Normal 35.0-45.0 The [facility] Comment on above: Performed By: #### C R BGA ####[facility] PATHOLOGY [id number] [place], CR PHA 7.371 Normal 7.35-7.45 The [facility] Comment on above: Performed By: #### C R BGA ####[facility] PATHOLOGY [id number] [place], CR PO2 110 mm Hg High 80-100 mm Hg [facility] Comment on above: Performed By: #### C R BGA ####[facility] PATHOLOGY [id number] [place], FIO2 (CATEGORY) 40% Normal [facility] Comment on above: Performed By: #### C R BGA ####[facility] PATHOLOGY [id number] [place], HCO3 (Bld) [Moles/Vol] 20 mmol/L Low 22-28 Th [facility] Comment on above: Performed By: #### C R BGA ####[facility] PATHOLOGY [id number] [place], MODE Vent Normal [facility] Comment on above: Performed By: #### C R BGA ####[facility] PATHOLOGY [id number] [place], Oxygen saturation in Blood 98.0 % Normal >=95.1 [facility] Comment on above: Performed By: #### C R BGA ####[facility] PATHOLOGY [id number] [place], CALCIUM, IONIZEDon CR ICA 1.17 mmol/L Normal 1.10-1.40 [facility] Comment on above: Performed By: #### C R ICA, LACT ####[facility] PATHOLOGY [id number] [place] [address], COMPLETE BLOOD COUNTon 02-07 Erythrocyte distribution width (RBC) [Ratio] 14.7 % High 11.5-14.5 [facility] Comment on above: Performed By: #### C BC ####[facility] PATHOLOGY [id number] [place] [address], Hematocrit (Bld) [Volume fraction] 33.4 % Low 41.0-53.0 [facility] Comment on above: Performed By: #### C BC ####[facility] PATHOLOGY [id number] [place], Hemoglobin (Bld) [Mass/Vol] 10.7 g/dL Low 13.9-16.3 [facility] Comment on above: Performed By: #### C BC ####[facility] PATHOLOGY [id number] [place], MCH (RBC) [Entitic mass] 30.2 pg Normal 26.0-34.0 [facility] Comment on above: Performed By: #### C BC ####[facility] PATHOLOGY [id number] [place], MCHC (RBC) [Mass/Vol] 32.0 g/dL Normal 32.0-35.9 [facility] Comment on above: Performed By: #### C BC ####[facility] PATHOLOGY [id number] [place], MCV (RBC) [Entitic vol] 94 fL Normal 80-100 [facility] Comment on above: Performed By: #### C BC ####[facility] PATHOLOGY [id number] [place], Platelet mean volume (Bld) [Entitic vol] 10.4 fL Normal 7.5-11.2 [facility] Comment on above: Performed By: #### C BC ####[facility] PATHOLOGY [id number] [place] [address], Platelets (Bld) [#/Vol] 86 10*3/uL Low 150-400 [facility] Comment on above: Performed By: #### C BC ####[facility] PATHOLOGY [id number] [place] [address], RBC (Bld) [#/Vol] 3.54 10*6/uL Low 4.50-5.90 [facility] Comment on above: Performed By: #### C BC ####[facility] PATHOLOGY [id number] [place] [address], WBC (Bld) [#/Vol] 8.2 10*3/uL Normal 4.5-11.5 [facility] Comment on above: Performed By: #### C BC ####[facility] PATHOLOGY [id number] [place] [address], Erythrocyte distribution width (RBC) [Ratio] 14.9 % High 11.5-14.5 The [facility] Comment on above: Performed By: #### C BC ####[facility] PATHOLOGY [id number] [place] [address], Hematocrit (Bld) [Volume fraction] 34.6 % Low 41.0-53.0 [facility] Comment on above: Performed By: #### C BC ####[facility] PATHOLOGY [id number] [place] [address], Hemoglobin (Bld) [Mass/Vol] 11.5 g/dL Low 13.9-16.3 The [facility] Comment on above: Performed By: #### C BC ####[facility] PATHOLOGY [id number] [place], MCH (RBC) [Entitic mass] 31.8 pg Normal 26.0-34.0 The [facility] Comment on above: Performed By: #### C BC ####[facility] PATHOLOGY [id number] [place], MCHC (RBC) [Mass/Vol] 33.2 g/dL Normal 32.0-35.9 The [facility] Comment on above: Performed By: #### C BC ####[facility] PATHOLOGY [id number] [place] [address], MCV (RBC) [Entitic vol] 96 fL Normal 80-100 The [facility] Comment on above: Performed By: #### C BC ####[facility] PATHOLOGY [id number] [place] [address], Platelet mean volume (Bld) [Entitic vol] 10.7 fL Normal 7.5-11.2 The [facility] Comment on above: Performed By: #### C BC ####[facility] PATHOLOGY [id number] [place] [address], Platelets (Bld) [#/Vol] 85 10*3/uL Low 150-400 The [facility] Comment on above: Performed By: #### C BC ####[facility] PATHOLOGY [id number] [place] [address], RBC (Bld) [#/Vol] 3.62 10*6/uL Low 4.50-5.90 The [facility] Comment on above: Performed By: #### C BC ####[facility] PATHOLOGY [id number] [place] [address], WBC (Bld) [#/Vol] 10.6 10*3/uL Normal 4.5-11.5 The [facility] Comment on above: Performed By: #### C BC ####[facility] PATHOLOGY [id number] [place], CREATINE KINASEon 02-07-2021 CK [Catalytic activity/Vol] 1944 U/L High 57-374 [facility] Comment on above: Performed By: #### C K ####[facility] [id number] [place], CK [Catalytic activity/Vol] 1978 U/L High 57-374 [facility] Comment on above: Performed By: #### C K ####[facility] [id number] [place], CK [Catalytic activity/Vol] 2265 U/L High 57-374 [facility] Comment on above: Performed By: #### P HOS, CH8, CK, MG ####[facility] [id number] [place], CK [Catalytic activity/Vol] 2537 U/L High 57-374 [facility] Comment on above: Performed By: #### C K ####[facility] PATHOLOGY [id number] [place], Care Plan Noteon 02-07-2021 [employer] Controller Authentication Interface Message Text Normal [facility] Consultson 02-07-2021 [employer] Attack Controller Authentication Interface Message Text Normal [facility] Joint [employer] Attack Controller Authentication Interface Message Text Normal [facility] [employer] Attack Controller Authentication Interface Message Text Normal [facility] GLUCOSE, FINGERSTICK-IN OFFI CEon 02-07-2021 Glucose [Mass/Vol] 92 mg/dL Normal 80-116 [facility] Comment on above: Performed By: #### 8 2948 ####NURSING GLUCOSE [id number] [place], [address] Glucose [Mass/Vol] 82 mg/dL Normal 80-116 [facility] Comment on above: Performed By: #### 8 2948 ####NURSING GLUCOSE [id number] [place], [address] Glucose [Mass/Vol] 89 mg/dL Normal 80-116 [facility] Comment on above: Performed By: #### [id number] ####NURSING GLUCOSE [id number] [place], [address] LACTIC ACIDon 02-07-2021 CR LACT 1.0 mmol/L Normal 0.5-2.0 [facility] Comment on above: Performed By: #### C R ICA, LACT ####S PATHOLOGY [id number] [place], MAGNESIUMon 02-07-2021 Magnesium [Mass/Vol] 2.0 mg/dL Normal 1.6-2.8 [facility] Comment on above: Performed By: #### P HOS, CH8, CK, MG ####[facility] [id number] [place], NOVEL CORONAVIRUS (COVID-19) on 02-07-2021 SARS-CoV-2 (COVID-19) RNA RICK+probe Ql (Unsp spec) Not detected Normal Not Detected [facility] Comment on above: Order Comment: This test is intended for use only under Emergency Use Authorization (EUA). This test was developed, and its performance characteristics determined by [facility] which is certified under CLIA as qualified to perform high complexity clinical laboratory testing. Result Comment: This assay was performed using [employer] LIONEL RTPCR technology. Performed By: #### C OVID19 ####[facility] PATH[facility] [id number] [place], PHOSPHORUSon 02-07-2021 Phosphate [Mass/Vol] 2.5 mg/dL Normal 2.3-4.2 [facility] Comment on above: Performed By: #### P HOS, CH8, CK, MG ####[facility] PATHOLOGY [id number] [place], Procedureson 02-07-2021 [employer] Controller Authentication Interface Message Text Normal [facility] Progress Noteson 02-07-2021 [employer] Attack Controller Authentication Interface Message Text Normal [facility] [employer] Attack Controller Authentication Interface Message Text Normal [facility] [employer] Attack Controller Authentication Interface Message Text Normal [facility] [employer] Attack Controller Authentication Interface Message Text Normal [facility] [employer] Attack Controller Authentication Interface Message Text Normal [facility] TOXICOLOGY SCREEN, UNCONFIRM EDon 02-07-2021 AMPH Negative Normal Negative [facility] Comment on above: Order Comment: This [...] toxicology consultation please call the laboratory at [phone]. Performed By: #### T OX TN ####S PATHOLOGY [id number] [place] [address], [id number] BARBIT Negative Normal Negative [facility] Comment on above: Order Comment: This [...] toxicology consultation please call the laboratory at [phone]. Performed By: #### T OX TN ####S PATHOLOGY [id number] [place] [address], BENZO Positive Abnormal Negative [facility] Comment on above: Order Comment: This [...] toxicology consultation please call the laboratory at [phone]. Performed By: #### T OX TN ####S PATHOLOGY [id number] [place], COCAINE CL Negative Normal Negative [facility] Comment on above: Order Comment: This [...] toxicology consultation please call the laboratory at [phone]. Performed By: #### T OX TN ####S PATHOLOGY [id number] [place], Ethanol [Mass/Vol] Negative Normal Cutoff: 1 0 mg/dL [facility] Comment on above: Order Comment: This [...] toxicology consultation please call the laboratory at [phone]. Performed By: #### T OX TN ####S PATHOLOGY [id number] [place], FENTANYL Positive Abnormal Negative [facility] Comment on above: Order Comment: This [...] toxicology consultation please call the laboratory at [phone]. Performed By: #### T OX SC ####S PATHOLOGY [id number] [place], HYDROCODONE (PM) Negative Normal Negative [facility] Comment on above: Order Comment: This [...] toxicology consultation please call the laboratory at [phone]. Performed By: #### T OX SC ####S PATHOLOGY [id number] [place], Methadone Ql (U) Negative Normal Negative [facility] Comment on above: Order Comment: This [...] toxicology consultation please call the laboratory at [phone]. Performed By: #### T OX SC ####S PATHOLOGY [id number] [place], NORBUPRENORPHINE Negative Normal Cutoff: 10 ng/mL [facility] Comment on above: Order Comment: This [...] toxicology consultation please call the laboratory at [phone]. Performed By: #### T OX SC ####S PATHOLOGY [id number] [place], OPIATE Negative Normal Negative [facility] Comment on above: Order Comment: This toxicology [...] toxicology consultation please call the laboratory at [phone]. Performed By: #### T OX SC ####S PATHOLOGY [id number] [place], OXYCODONE Positive Abnormal Cutoff: 100 [facility] Comment on above: Order Comment: This [...] toxicology consultation please call the laboratory at [phone]. Result Comment: Oxyc odone and metabolites of Oxycodone (Oxymorphone, Noroxycodone, and Noroxymorphone) are measured/detected in this assay method. Performed By: #### T OX TN ####[facility] PATHOLOGY [id number] [place], PHENCYCL Negative Normal Negative [facility] Comment on above: Order Comment: This [...] toxicology consultation please call the laboratory at [phone]. Performed By: #### T OX TN ####[facility] PATHOLOGY [id number] [place], THC CL Negative Normal Negative [facility] Comment on above: Order Comment: This toxicology [...] toxicology consultation please call the laboratory at [phone]. Performed By: #### T OX TN ####S PATHOLOGY [id number] [place], AMPH Negative Normal Negative [facility] Comment on above: Order Comment: This toxicology [...] toxicology consultation please call the laboratory at [phone]. Performed By: #### T OX TN ####[facility] PATHOLOGY [id number] [place], BARBIT Negative Normal Negative [facility] Comment on above: Order Comment: This [...] toxicology consultation please call the laboratory at [phone]. Performed By: #### T OX TN ####[facility] PATHOLOGY [id number] [place], BENZO Positive Abnormal Negative [facility] Comment on above: Order Comment: This [...] toxicology consultation please call the laboratory at [phone]. Performed By: #### T OX SC ####S PATHOLOGY [id number] [place], COCAINE CL Negative Normal Negative [facility] Comment on above: Order Comment: This [...] toxicology consultation please call the laboratory at [phone]. Performed By: #### T OX SC ####S PATHOLOGY [id number] [place], Ethanol [Mass/Vol] Negative Normal Cutoff: 1 0 mg/dL [facility] Comment on above: Order Comment: This [...] toxicology consultation please call the laboratory at [phone]. Performed By: #### T OX SC ####S PATHOLOGY [id number] [place], FENTANYL Positive Abnormal Negative [facility] Comment on above: Order Comment: This toxicology [...] toxicology consultation please call the laboratory at [phone]. Performed By: #### T OX SC ####S PATHOLOGY [id number] [place], HYDROCODONE (PM) Negative Normal Negative [facility] Comment on above: Order Comment: This [...] toxicology consultation please call the laboratory at [phone]. Performed By: #### T OX SC ####S PATHOLOGY [id number] [place] [address], Methadone Ql (U) Negative Normal Negative [facility] Comment on above: Order Comment: This [...] toxicology consultation please call the laboratory at [phone]. Performed By: #### T OX SC ####S PATHOLOGY [id number] [place], NORBUPRENORPHINE Negative Normal Cutoff: 10 ng/mL [facility] Comment on above: Order Comment: This [...] toxicology consultation please call the laboratory at [phone]. Performed By: #### T OX TN ####[facility] PATHOLOGY [id number] [place], OPIATE Negative Normal Negative [facility] Comment on above: Order Comment: This [...] toxicology consultation please call the laboratory at [phone]. Performed By: #### T OX TN ####S PATHOLOGY [id number] [place], OXYCODONE Positive Abnormal Cutoff: 100 [facility] Comment on above: Order Comment: This [...] toxicology consultation please call the laboratory at [phone]. Result Comment: Oxyc odone and metabolites of Oxycodone (Oxymorphone, Noroxycodone, and Noroxymorphone) are measured/detected in this assay method. Performed By: #### T OX SC ####S PATHOLOGY [id number] [place], PHENCYCL Negative Normal Negative [facility] Comment on above: Order Comment: This [...] toxicology consultation please call the laboratory at [phone]. Performed By: #### T OX SC ####[facility] PATHOLOGY [id number] [place], THC CL Negative Normal Negative [facility] Comment on above: Order Comment: This [...] toxicology consultation please call the laboratory at [phone]. Performed By: #### T OX SC ####S PATHOLOGY [id number] [place], URINALYSISon 02-07-2021 Glucose Ql (U) Negative Normal Negative [facility] Comment on above: Order Comment: A [...] Performed By: #### u rinalysis ####S PATHOLOGY [id number] [place], Protein (U) [Mass/Vol] 30 mg/dL Abnormal Negative Th [facility] Comment on above: Order Comment: A [...] Performed By: #### u rinalysis ####S PATHOLOGY [id number] [place], SQUAMOUS EPITHELIAL 0-2 Normal 0-10 [facility] Comment on above: Order Comment: A [...] Performed By: #### u rinalysis ####S PATHOLOGY [id number] [place], [place] APPEAR Hazy Normal Clear [facility] Comment on above: Order Comment: A [...] rinalysis ####[facility] PATHOLOGY [id number] [place] [address], U BILI Negative Normal Negative [facility] Comment on above: Order Comment: A [...] rinalysis ####[facility] PATHOLOGY [id number] [place] [address], U BLOOD Moderate Abnormal Negative [facility] Comment on above: Order Comment: A [...] rinalysis ####[facility] PATHOLOGY [id number] [place] [address], U COLOR Yellow Normal Yellow [facility] Comment on above: Order Comment: A [...] Performed By: #### u rinalysis ####S PATHOLOGY [id number] [place], [place] KETONE Negative Normal Negative [facility] Comment on above: Order Comment: A [...] rinalysis ####[facility] PATHOLOGY [id number] [place] [address], U LEUK Negative Normal Negative [facility] Comment on above: Order Comment: A [...] Performed By: #### u rinalysis ####S PATHOLOGY [id number] [place] [address], U MUCOUS Present Normal [facility] Comment on above: Order Comment: A [...] rinalysis ####[facility] PATHOLOGY [id number] [place], [place] NITRITE Negative Normal Negative [facility] Comment on above: Order Comment: A [...] rinalysis ####[facility] PATHOLOGY [id number] [place], [place] PH 5.0 Normal 5.0-8.0 [facility] Comment on above: Order Comment: A [...] rinalysis ####[facility] PATHOLOGY [id number] [place], [place] RBC 31-100 Abnormal 0-2 [facility] Comment on above: Order Comment: A [...] rinalysis ####[facility] PATHOLOGY [id number] [place], [place] SG 1.045 High 1.005-1.030 [facility] Comment on above: Order Comment: A [...] rinalysis ####[facility] PATHOLOGY [id number] [place], [place] UROBILI Negative Normal 0.1 - 1.0 [facility] Comment on above: Order Comment: A [...] rinalysis ####[facility] PATHOLOGY [id number] [place], [place] WBC 3-5 Abnormal 0-2 [facility] Comment on above: Order Comment: A [...] Performed By: #### u rinalysis ####S PATHOLOGY [id number] [place], URINE MYOGLOBINon 02-07-2021 U CARLA Negative Normal Negative [facility] Comment on above: Performed By: #### U CARLA ####[facility] PATHOLOGY [id number] [place], XR ANKLE LEFTon 02-07-2021 XR ANKLE LEFT Normal [facility] XR ANKLE RIGHT 2 VIEWon 01-29 XR ANKLE RIGHT 2 VIEW Normal [facility] XR CHEST AP OR PA 1 VIEWon 0 02-07-2021 XR CHEST AP OR PA 1 VIEW Normal [facility] XR CHEST AP OR PA 1 VIEW Normal [facility] BASIC METABOLIC PANELon Anion gap [Moles/Vol] 9 mmol/L Normal 5-13 [facility] Comment on above: Performed By: #### C H8, CK, MG, HEPATIC, PHOS ####S PATHOLOGY [id number] [place], Calcium [Mass/Vol] 6.5 mg/dL Low 8.4-10.4 [facility] Comment on above: Performed By: #### C H8, CK, MG, HEPATIC, PHOS ####[facility] PATH[facility] [id number] [place], Chloride [Moles/Vol] 113 mmol/L High 97-111 [facility] Comment on above: Performed By: #### C H8, CK, MG, HEPATIC, PHOS ####[facility] PATH[facility] [id number] [place], CO2 [Moles/Vol] 18 mmol/L Low 21-30 [facility] Comment on above: Performed By: #### C H8, CK, MG, HEPATIC, PHOS ####S PATHOLOGY [id number] [place], Creatinine [Mass/Vol] 0.96 mg/dL Normal 0.80-1.30 The [facility] Comment on above: Performed By: #### C H8, CK, MG, HEPATIC, PHOS ####[facility] PATHOLOGY [id number] [place], ESTIMATED GFR (CKD-EPI) 78 mL/min/1.73sqm Normal >=60 [facility] Comment on above: Performed By: #### C H8, CK, MG, HEPATIC, PHOS ####S PATHOLOGY [id number] [place], Glucose [Mass/Vol] 87 mg/dL Normal 80-116 [facility] Comment on above: Performed By: #### C H8, CK, MG, HEPATIC, PHOS ####S PATHOLOGY [id number] [place] [address], Potassium [Moles/Vol] 4.2 mmol/L Normal 3.3-5.3 [facility] Comment on above: Result Comment: Hemo lysis present Performed By: #### C H8, CK, MG, HEPATIC, PHOS ####[facility] PATH[facility] [id number] [place], Sodium [Moles/Vol] 136 mmol/L Normal 135-148 [facility] Comment on above: Performed By: #### C H8, CK, MG, HEPATIC, PHOS ####S PATHOLOGY [id number] [place], Urea nitrogen [Mass/Vol] 26 mg/dL High 8-22 [facility] Comment on above: Performed By: #### C H8, CK, MG, HEPATIC, PHOS ####[facility] [id number] [place], BLOOD GAS, ARTERIALon 2020 CR MAYCOL -4.6 mmol/L Low -2.0-2.0 [facility] Comment on above: Performed By: #### C R BGA ####[facility] PATHOLOGY [id number] [place], CR PCO2 37.3 mm Hg Normal 35.0-45.0 [facility] Comment on above: Performed By: #### C R BGA ####[facility] PATHOLOGY [id number] [place], CR PHA 7.349 Low 7.35-7.45 [facility] Comment on above: Performed By: #### C R BGA ####[facility] PATHOLOGY [id number] [place] [address], CR PO2 113 mm Hg High 80-100 mm Hg [facility] Comment on above: Performed By: #### C R BGA ####[facility] PATHOLOGY [id number] [place] [address], FIO2 (CATEGORY) 40% Normal [facility] Comment on above: Performed By: #### C R BGA ####[facility] PATHOLOGY [id number] [place] [address], HCO3 (Bld) [Moles/Vol] 20 mmol/L Low 22-28 Th e [facility] Comment on above: Performed By: #### C R BGA ####[facility] PATHOLOGY [id number] [place] [address], MODE Vent Normal [facility] Comment on above: Result Comment: 500 x 16 +5 Performed By: #### C R BGA ####[facility] PATHOLOGY [id number] [place] [address], Oxygen saturation in Blood 98.2 % Normal >=95.1 The [facility] Comment on above: Performed By: #### C R BGA ####[facility] PATHOLOGY [id number] [place], CBC WITH DIFFERENTIALon 06-0 -2020 Basophils (Bld) [#/Vol] 0.02 10*3/uL Normal 0.00-0.20 [facility] Comment on above: Performed By: #### C BCDSAT ####[facility] PATHOLOGY [id number] [place] [address], Basophils/100 WBC (Bld) 0.2 % Normal <=1.9 [facility] Comment on above: Performed By: #### C BCDSAT ####[facility] PATHOLOGY [id number] [place], Eosinophils (Bld) [#/Vol] 0.00 10*3/uL Normal 0.00-0.70 [facility] Comment on above: Performed By: #### C BCDSAT ####[facility] PATHOLOGY [id number] [place] [address], Eosinophils/100 WBC (Bld) 0.0 % Low 0.1-4.0 [facility] Comment on above: Performed By: #### C BCDSAT ####[facility] PATHOLOGY [id number] [place] [address], Erythrocyte distribution width (RBC) [Ratio] 14.6 % High 11.5-14.5 [facility] Comment on above: Performed By: #### C BCDSAT ####[facility] PATHOLOGY [id number] [place] [address], Hematocrit (Bld) [Volume fraction] 37.5 % Low 41.0-53.0 [facility] Comment on above: Performed By: #### C BCDSAT ####[facility] PATHOLOGY [id number] [place] [address], Hemoglobin (Bld) [Mass/Vol] 12.2 g/dL Low 13.9-16.3 [facility] Comment on above: Performed By: #### C BCDSAT ####[facility] PATHOLOGY [id number] [place] [address], Lymphocytes (Bld) [#/Vol] 1.55 10*3/uL Normal 1.00-4.80 [facility] Comment on above: Performed By: #### C BCDSAT ####[facility] PATHOLOGY [id number] [place] [address], Lymphocytes/100 WBC (Bld) 12.9 % Low 24.0-44.0 [facility] Comment on above: Performed By: #### C BCDSAT ####[facility] PATHOLOGY GHRVJHJIQR7404 [place], MCH (RBC) [Entitic mass] 30.6 pg Normal 26.0-34.0 [facility] Comment on above: Performed By: #### Austyn ALLENAT ####[facility] PATHOLOGY [id number] [place], MCHC (RBC) [Mass/Vol] 32.5 g/dL Normal 32.0-35.9 The [facility] Comment on above: Performed By: #### Austyn ALLENAT ####[facility] PATHOLOGY [id number] [place], MCV (RBC) [Entitic vol] 94 fL Normal 80-100 The [facility] Comment on above: Performed By: #### Austyn ALLENAT ####[facility] PATHOLOGY PGFZYBYZHS5764 [place], MONOCYTE DISTRIBUTION WIDTH 22 High <=20 [facility] Comment on above: Performed By: #### Austyn ALLENAT ####[facility] PATHOLOGY [id number] [place], Monocytes (Bld) [#/Vol] 1.48 10*3/uL High 0.20-1.00 [facility] Comment on above: Performed By: #### Austyn ALLENAT ####[facility] PATHOLOGY [id number] [place], Monocytes/100 WBC (Bld) 12.4 % High 2.0-11.0 [facility] Comment on above: Performed By: #### Austyn ALLENAT ####[facility] PATHOLOGY [id number] [place], Neutrophils (Bld) [#/Vol] 8.92 10*3/uL High 1.50-8.00 [facility] Comment on above: Performed By: #### Austyn ALLENAT ####[facility] PATHOLOGY [id number] [place], Neutrophils/100 WBC (Bld) 74.5 % Normal 31.0-76.0 [facility] Comment on above: Performed By: #### C BCDSAT ####[facility] PATH[facility] [id number] [place], Platelet mean volume (Bld) [Entitic vol] 11.2 fL Normal 7.5-11.2 The [facility] Comment on above: Performed By: #### C BCDSAT ####[facility] PATHOLOGY [id number] [place], Platelets (Bld) [#/Vol] 96 10*3/uL Low 150-400 [facility] Comment on above: Performed By: #### C BCDSAT ####[facility] PATHOLOGY [id number] [place], RBC (Bld) [#/Vol] 3.98 10*6/uL Low 4.50-5.90 The [facility] Comment on above: Performed By: #### C BCDSAT ####[facility] PATHOLOGY [id number] [place], WBC (Bld) [#/Vol] 12.0 10*3/uL High 4.5-11.5 The [facility] Comment on above: Performed By: #### C BCDSAT ####[facility] PATHOLOGY [id number] [place], COMPLETE BLOOD COUNTon 02-06 Erythrocyte distribution width (RBC) [Ratio] 14.8 % High 11.5-14.5 The [facility] Comment on above: Performed By: #### C BC ####[facility] PATHOLOGY [id number] [place], Hematocrit (Bld) [Volume fraction] 36.9 % Low 41.0-53.0 The [facility] Comment on above: Performed By: #### C BC ####[facility] PATHOLOGY [id number] [place], Hemoglobin (Bld) [Mass/Vol] 12.0 g/dL Low 13.9-16.3 The [facility] Comment on above: Performed By: #### C BC ####[facility] PATHOLOGY [id number] [place], MCH (RBC) [Entitic mass] 30.5 pg Normal 26.0-34.0 The [facility] Comment on above: Performed By: #### C BC ####[facility] PATHOLOGY [id number] [place], MCHC (RBC) [Mass/Vol] 32.4 g/dL Normal 32.0-35.9 The [facility] Comment on above: Performed By: #### C BC ####[facility] PATHOLOGY [id number] [place], MCV (RBC) [Entitic vol] 94 fL Normal 80-100 The [facility] Comment on above: Performed By: #### C BC ####[facility] PATHOLOGY [id number] [place], Platelet mean volume (Bld) [Entitic vol] 10.5 fL Normal 7.5-11.2 The [facility] Comment on above: Performed By: #### C BC ####[facility] PATHOLOGY [id number] [place], Platelets (Bld) [#/Vol] 100 10*3/uL Low 150-400 The [facility] Comment on above: Performed By: #### C BC ####[facility] PATHOLOGY [id number] [place], RBC (Bld) [#/Vol] 3.92 10*6/uL Low 4.50-5.90 The [facility] Comment on above: Performed By: #### C BC ####[facility] PATHOLOGY [id number] [place], WBC (Bld) [#/Vol] 12.6 10*3/uL High 4.5-11.5 The [facility] Comment on above: Performed By: #### C BC ####[facility] PATHOLOGY [id number] [place], CREATINE KINASEon 02-06-2021 CK [Catalytic activity/Vol] 1957 U/L High 57-374 [facility] Comment on above: Performed By: #### C H8, CK, MG, HEPATIC, PHOS ####[facility] PATHOLOGY [id number] [place], [place], CT C-SPINE W/O CONTRASTon CT C-SPINE W/O CONTRAST Normal [facility] CTA HEAD/NECK W/+W/O CONTRAS Ton 02-06-2021 CTA HEAD/NECK W/+W/O CONTRAST Normal [facility] Consultson 02-06-2021 [employer] Authentication Interface Message Text Normal [facility] ED Provider Noteson 02-07-20 [employer] Authentication Interface Message Text Normal [facility] ED Triage Noteson 02-06-2021 [employer] Authentication Interface Message Text 75M, found down, unresponsive Normal [facility] ETHANOL, SERUMon 02-06-2021 ETHANOL Normal None Detected [facility] Comment on above: Result Comment: Karyna sly hemolyzed, result is invalid.This is a corrected result. Previous result on 02/06/2021 at 1508 EDT was <5 mg/dL Performed By: #### E TOMAS ####[facility] [id number] [place], GLUCOSE, FINGERSTICK-IN OFFI CEon 02-06-2021 Glucose [Mass/Vol] 97 mg/dL Normal 80-116 [facility] Comment on above: Performed By: #### 8 [id number] ####NURSING GLUCOSE [id number] [place], [address] Glucose [Mass/Vol] 108 mg/dL Normal 80-116 [facility] Comment on above: Performed By: #### 8 2948 ####NURSING GLUCOSE [id number] [place], [address] H AND Martin 02-06-2021 [employer] Controller Authentication Interface Message Text Normal [facility] HEPATIC FUNCTION PANELon Albumin [Mass/Vol] 2.4 g/dL Low 3.4-5.1 [facility] Comment on above: Performed By: #### C H8, CK, MG, HEPATIC, PHOS ####[facility] [id number] [place], ALK 27 IU/L Low 40-200 [facility] Comment on above: Performed By: #### C H8, CK, MG, HEPATIC, PHOS ####S PATHOLOGY [id number] [place], ALT [Catalytic activity/Vol] 20 U/L Normal 7-40 [facility] Comment on above: Performed By: #### C H8, CK, MG, HEPATIC, PHOS ####S PATHOLOGY [id number] [place], AST [Catalytic activity/Vol] 48 U/L High 7-40 [facility] Comment on above: Result Comment: Hemo lysis present Performed By: #### C H8, CK, MG, HEPATIC, PHOS ####[facility] PATHOLOGY [id number] [place], Bilirubin [Mass/Vol] 1.3 mg/dL Normal 0.1-1.5 [facility] Comment on above: Performed By: #### Austyn H8, CK, MG, HEPATIC, PHOS ####[facility] PATHOLOGY [id number] [place] [address], Bilirubin.direct [Mass/Vol] 0.20 mg/dL Normal 0.10-0.30 [facility] Comment on above: Performed By: #### C H8, CK, MG, HEPATIC, PHOS ####[facility] PATHOLOGY [id number] [place] [address], Protein [Mass/Vol] 3.8 g/dL Low 5.7-8.1 [facility] Comment on above: Performed By: #### C H8, CK, MG, HEPATIC, PHOS ####[facility] PATHOLOGY [id number] [place] [address], LACTIC ACIDon 02-06-2021 CR LACT 0.9 mmol/L Normal 0.5-2.0 [facility] Comment on above: Performed By: #### L ACT ####[facility] PATHOLOGY [id number] [place] [address], CR LACT 2.8 mmol/L High 0.5-2.0 [facility] Comment on above: Performed By: #### L ACT ####[facility] PATHOLOGY [id number] [place] [address], MAGNESIUMon 02-06-2021 Magnesium [Mass/Vol] 2.2 mg/dL Normal 1.6-2.8 [facility] Comment on above: Result Comment: Hemo lysis present Performed By: #### C H8, CK, MG, HEPATIC, PHOS ####[facility] PATHOLOGY [id number] [place], PARTIAL THROMBOPLASTIN TIMEo n 02-06-2021 aPTT Coag (Bld) [Time] 28 s Normal 25-37 [facility] Comment on above: Performed By: #### A PTT, PT ####[facility] PATHOLOGY [id number] [place], PHOSPHORUSon 02-06-2021 Phosphate [Mass/Vol] 2.4 mg/dL Normal 2.3-4.2 [facility] Comment on above: Performed By: #### C H8, CK, MG, HEPATIC, PHOS ####[facility] PATHOLOGY [id number] [place], PROTHROMBIN TIME AND INRon 0 02-06-2021 INR Coag (PPP) [Relative time] 1.27 {INR} High 0.90-1.10 [facility] Comment on above: Performed By: #### A PTT, PT ####S PATHOLOGY [id number] [place], PT Coag (PPP) [Time] 14.3 s High 9.7-12.9 [facility] Comment on above: Performed By: #### A PTT, PT ####[facility] PATHOLOGY [id number] [place], Progress Noteson 02-06-2021 [employer] Controller Authentication Interface Message Text Normal [facility] [employer] Authentication Interface Message Text Normal [facility] [employer] Authentication Interface Message Text Normal [facility] TROPONIN Ion 02-06-2021 TROP I 0.102 ng/mL Normal <0.120 [facility] Comment on above: Result Comment: Rang [...] By: #### T ROP I ####S PATHOLOGY [id number] [place], TYPE AND SCREENon 02-06-2021 ABO and Rh group Nom (Bld) Blood group A Rh(D) positive Normal [facility] Comment on above: Performed By: #### T S ####[facility] PATHOLOGY [id number] [place], ABO and Rh group Nom (Bld) No Previous Results Normal [facility] Comment on above: Performed By: #### T S ####S PATHOLOGY [id number] [place], ABSC INT Negative Normal [facility] Comment on above: Performed By: #### T S ####[facility] PATHOLOGY [id number] [place], XR ANKLE LEFTon 02-06-2021 XR ANKLE [...] RIGHT Normal [facility] Dermatopathologyon Dermatopathology [facility] [address] [place] [id number] DERMATOPATHOLOGY REPORT Name:CHOCO ACUNA [facility]. Rec #. [id number] Location: [facility] Date of Procedure: 04/05/2020 Race: Date Received: 04/09/2020 /Sex: 1945 (Age: 74) / M Date Reported: 04/10/2020 Other: Submitting Physician:VICTORINA WILKS MD FINAL DIAGNOSIS SKIN, L CHEEK, BIOPSY: ACTINIC KERATOSIS WITH ADNEXAL INVOLVEMENT, PRESENT ON THE DEEP AND PERIPHERAL MARGIN. Electronically Signed Out by BROCK OTT M.D. Electronically Signed Out By BROCK OTT MD/[facility] By the signature on this report, the individual or group listed as making the Final Interpretation/Diagn osis certifies that they have reviewed this case. Clinical History: 1.0x0.8cm AK vs. SCC. Biopsy. Specimens Submitted As: A: SKIN, L CHEEK Gross Description: Received in formalin is a huang piece of skin measuring [id number]. The specimen is inked and embedded in [...] The dermis shows elastotic actinic damage. Normal [facility] Comment on above: Performed By: #### D #### Dermatopathology Vital Signs Date Time Vital Sign Value Performing Clinician Faci lity 10-15-2023 13:16050 Body height 180.3 cm Gigi BARRIENTOSM Work Phone: [facility] 10-15-2023 13:16050 Body mass index (BMI) [Ratio] 29.57 kg/m2 Gigi Yu DPM Work Phone: [facility] 10-15-2023 13:16050 Body weight 96.16 kg Gigi Yu DPM Work Phone: [facility] 10-15-2023 13:16-0500 Diastolic blood pressure 81 mm[Hg] Gigi Yu DPM Work Phone: [facility] 10-15-2023 13:16-0500 Heart rate 88 /min Gigi Yu DPM Work Phone: [facility] 10-15-2023 13:16-0500 Systolic blood pressure 130 mm[Hg] Gigi Yu DPM Work Phone: [facility] Encounters Encounter Date Encounter Type Care [...] Start: 11-30-2023 End: 12-01-2023 ambulatory SWAPNA FONSECA Facility:[facility] Start: 11-30-2023 End: 11-30-2023 Patient encounter procedure Lincoln MATTHEWS [facility] Start: 10-15-2023 Chart abstracting Gigi husain DPM Work Phone: [facility] Start: 10-15-2023 End: 10-15-2023 Office outpatient visit 15 minutes Gigi Yu DPM Work Phone: [facility] Comment on above: Venous insufficiency (Primary Dx); Other polyneuropathy; Onychomycosis; Toe pain, right; Toe pain, left; DJD (degenerative joint disease), ankle and foot, left Start: 10-15-2023 End: 10-15-2023 ambulatory GIGI YU Not Available Start: 09-17-2023 ambulatory SWAPNA FONSECA Facility :[facility] Start: 09-10-2023 End: 09-10-2023 ambulatory KARTHIK IRELAND Not Available Start: 02-12-2023 End: 09-10-2023 Patient encounter procedure Gigi Yu DPRajiv Work Phone: [facility] Start: 11-10-2022 End: 11-11-[address] [...] Start: 02-06-2021 End: 02-06-2021 ambulatory UNKNOWN PROVIDER Facility:[facility] Procedures Date Procedure Procedure Detail Performing Clinician Start: 07-08-[address] RADHA IRELAND Comment on above: Performed By: #### P PEYTON VENTURA, RENEA #### [facility] [address] [place] [address] Dr. Karen Marie Colonoscopy Lincoln MATTHEWS Extraction [...] IM [address] [place] [address] Karthik Ireland, DO [address] [facility] [address] [place] [address] [facility] Start: 10-15-2023 End: 10-15-2023 Patient encounter procedure 10/15/2023 1:30 PM EST Procedure Visit [facility] [address] [facility] [address] [place] [address] Gigi Yu, DPM [address] [facility] [address] [place] [address] [facility] Immunizations Immunization Date Immunization Notes Care Provider Fa cility 08-18-2023 Pneumococcal Conjuga te PCV 20 Gigi Yu DPM Work Phone: [facility] 05-11-2023 Influenza, Seasonal, Quadrivalent, Adjuvanted Gigi Yu DPM Work Phone: [facility] Payers Date Payer Category Payer Medicare [facility] MED[facility] MEDIC[facility] ADV[facility]AGE [id number] 2019-Present [address] [place] [address] [id number] 2018 Medicaid [place] [facility] [id number] 2018-Present [phone] [address] [place] [address] Medicaid [id number] 1959 Medicaid [id number] 1959 Medicare [id number] 1945 Unknown [id number] 2.16.840.1.471668.3.579.2.732 1945 Unknown [id number] 2.16.840.1.625489.3.579.2.73 1945 Unknown [id number] 2.16.840.1.085339.3.579.2.732 1945 Unknown [id number] 2.16.840.1.805795.3.579.2.732 1945 Unknown [id number] 2.16.840.1.476867.3.579.2.732 1945 Unknown [id number] 2.16.840.1.595529.3.579.2.732 1945 Unknown [id number] 2.16.840.1.835758.3.579.2.732 1945 Unknown [id number] 2.16.840.1.452370.3.579.2.732 1946 Unknown [id number] 2.16.840.1.640239.3.579.2.732 1945 Unknown [id number] 2.16.840.1.929650.3.579.2.732 1945 Unknown [id number] 2.16.840.1.222172.3.579.2.732 1945 Unknown [id number] 2.16.840.1.790660.3.579.2.732 1945 Unknown [id number] 2.16.840.1.658805.3.579.2.73 1945 Unknown [id number] 2.16.840.1.870144.3.579.2. 1945 Unknown [id number] 2.16.840.1.787751.3.579.2. 1945 Unknown [id number] 2.16.840.1.068001.3.579.2. 1945 Unknown [id number] 2.16.840.1.460869.3.579.2. 1945 Unknown [id number] 2.16.840.1.365885.3.579.2 1945 Unknown [id number] 2.16.840.1.007352.3.579.2 1945 Unknown [id number] 2.16.840.1.041117.3.579.2 1945 Unknown [id number] 2.16.840.1.250731.3.579.2 1945 Unknown [id number] 2.16.840.1.686106.3.579.2 1945 Unknown [id number] 2.16.840.1.389885.3.579.2. 1945 Unknown [id number] 2.16.840.1.220025.3.579.2. 1945 Unknown [id number] 2.16.840.1.373978.3.579.2. 1945 Unknown [id number] 2.16.840.1.367524.3.579.2. 1945 Unknown [id number] 2.16.840.1.302473.3.579.2 1945 Unknown [id number] 2.16.840.1.885915.3.579.2.732 1945 Unknown [id number] 2.16.840.1.818302.3.579.2.732 1945 Unknown [id number] 2.16.840.1.677775.3.579.2.732 1945 Unknown [id number] 2.16.840.1.365137.3.579.2.73 1945 Unknown [id number] 2.16.840.1.027419.3.579.2.73 1946 Unknown [id number] 2.16.840.1.019716.3.579.2.73 1945 Unknown [id number] 2.16.840.1.866207.3.579.2.73 1945 Unknown [id number] 2.16.840.1.719155.3.579.2.73 1945 Unknown [id number] 2.16.840.1.831466.3.579.2.732 1946 Unknown [id number] 2.16.840.1.984726.3.579.2.732 1946 Unknown [id number] 2.16.840.1.376777.3.579.2.73 1946 Unknown [id number] 2.16.840.1.196223.3.579.2.73 1946 Unknown [id number] 2.16.840.1.534371.3.579.2.732 1945 Unknown [id number] 2.16.840.1.814730.3.579.2.73 1946 Unknown [id number] 2.16.840.1.683419.3.579.2.593 1945 Unknown [id number] 2.16.840.1.891737.3.579.2.593 1946 Unknown [id number] 2.16.840.1.112440.3.579.2.593 1945 Unknown [id number] 2.16.840.1.505515.3.579.2.727 1945 Unknown [id number] 2.16.840.1.693931.3.579.2.1259 1946 Unknown [id number] 2.16.840.1.031721.3.579.2.1259 1946 Unknown [id number] 2.16.840.1.444059.3.579.2.1259 1946 Unknown [id number] 2.16.840.1.728464.3.579.2.1259 1946 Unknown [id number] 2.16.840.1.520137.3.579.2.1259 1946 Unknown [id number] 2.16.840.1.093530.3.579.2.1259 1945 Unknown [id number] 2.16.840.1.246487.3.579.2.1259 1945 Unknown [id number] 2.16.840.1.113980.3.579.2.1259 Social History Date Type Detail Facility Start: 02-12-2023 Tobacco smoking stat [facility] Ex-smoker [facility] End: 07-11-2021 [...] Alcohol Comment Caffeine: 1-2 cups/day tea, 7up [facility] Start: 1945 Sex Assigned At Not on file [place] [facility] Start: 03-26-2020 Tobacco smoking status Never s moked tobacco (finding) [facility] Tobacco smoking status Never [facility] History of Present illness Narrative 10-15-2023 Gigi [...] edema. Discussed condition in detail. Recommendation for xppv-exl-swvojon compression stockings at this time and may consider prescription stockings in the future. Patient is to begin with zizf-hnp-hwtqzvr compression stockings and discussed where to purchase today Gigi Yu DPM documented in this encounter [facility] Discharge instructions 09-15-2023 Note Date & Type Note Facility 09-15-2023 Hospital Discharg e instructions Follow Up Care 09/15/2023 10:44:19 With:BYRON MCCLOUD, Lincoln Patricia, URL Address: [facility] [address] [place] [address] [phone] When: Unknown [facility] Discharge summary note 02-28-2021 Note Date & Type Note Facility 02-28-2021 Note [facility] Clinical Note 02-07-2021 Note Date & Type Note Facility 02-07-2021 Note Problem: Restraint: Goal: Remain safe while in restraints and once discontinued Outcome: Progressing Restraints needed to maintain safety/airway [facility] Evaluation + Plan note Note Date & Type Note Facility Evaluation + Plan note No data available for this section [facility] Evaluation note Note Date & Type [...] available for this section [facility] [place] Summary Purpose Family History No Family History [...] section and content) DATE CREATED AUTHOR 04/11/2020 [facility] DATE CREATED AUTHOR AUTHOR'S ORGANIZ ATION 09/23/2021 [facility] DATE CREATED AUTHOR AUTHOR'S ORGANIZ ATION 10/07/2021 [facility] DATE CREATED AUTHOR AUTHOR'S ORGANIZ ATION 10/18/2021 [facility] dical Specialist DATE CREATED AUTHOR AUTHOR'S ORGANIZ ATION 11/17/2022 [facility] DATE CREATED AUTHOR AUTHOR'S ORGANIZ ATION 12/01/2023 [facility] DATE CREATED AUTHOR AUTHOR'S ORGANIZ ATION 04/07/2024 [facility] dical Specialists [employer] Care Teams (unrecognized sec tion and content) Coffee Sampler Relationship Specialty Start Date End Date Karthik Ireland DO [address] [place] [address] PCP - General Internal Medicine 01/29/23 Karthik Ireland DO [address] [place] [address] PCP - Toña TELLEZ 05/01/23 Coffee Sampler Relationship Specialty Start Date End Date Karthik Ireland DO [address] [place] [address] PCP - General Internal Medicine 01/29/23 Karthik Ireland DO [address] [place] [address] PCP - Toña TELLEZ 05/01/23 Reason for [...] BE BASED ON THE PRIMARY CLINICAL RECORDS. [employer] provides no warranty or guarantee of the accuracy or completeness of information in this document.
--- NOTE | 2024-04-17 11:05 | P.HP_ITS ---
HPI H&P: HPI History of Present Illness Chief complaint: peripheral edema chf Narrative: 78-year-old male who lives with his presented to ER last night with worsening shortness of breath that is ongoing for a month and is associated with bilateral lower extremity edema. He was also noted to have bilateral lower extremity erythema/tenderness, swelling with up to +3 lower extremity edema that according to him has been ongoing for a month. Patient is a very poor historian and has little to no insight into his medical history. When inquired about made him come last night and why did he wait for a month, he responded by saying that his made him come to ER last night. Denies fever, nausea, vomiting. He reports orthopnea and paroxysmal nocturnal dyspnea. He denies cough, fever, chills, nausea, vomiting. Workup in ED was consistent with acute on chronic diastolic heart failure and possibly COPD exacerbation for which she was given one-time dose of IV Bumex and started on DuoNebs. On exam, he seems to have bilateral lower extremity cellulitis extending from his foot just below knee bilaterally. There is no drainage but there is significant edema up to +3, erythema along with tenderness. Patient denies any trauma to his lower extremities. He reports that he has history of chronic lower extremity edema but this is significantly worse from his baseline. Patient admitted as inpatient as he has bilateral lower extremity cellulitis and significant volume overload with shortness of breath/dyspnea on exertion due to acute on chronic congestive heart failure and will also require IV diuresis for it Opioid HPI Opioid Management Most Recent Pain and Opioid Data: Last Pain Scale 3 04/17/24 10:00 Last Pain Assessment 04/17/24 10:00 Last ORT Total Score 0 04/17/24 00:23 Last ORT Risk Category Low Risk 04/17/24 00:23 Review of Systems ROS Status of ROS 10 or more systems reviewed and unremark able except as noted in history and below [facility] Medical History (Updated 04/17/24 @ 11:20 by Shaikh Cate MD) H/O: CVA (cerebrovascular accident) ?Z86.73 - Personal history of transient ischemic attack (TIA), and cerebral infarction without residual deficits (ICD-10) Afib ?I48.91 - Unspecified atrial fibrillation (ICD-10) HLD (hyperlipidemia) ?E78.5 - Hyperlipidemia, unspecified (ICD-10) COPD (chronic obstructive pulmonary disease) ?J44.9 - Chronic obstructive pulmonary disease, unspecified (ICD-10) Social History (Updated 04/17/24 @ 11:12 by Shaikh Cate MD) Within the past year, how often did you have a drink containing alcohol: monthly or less Within the past year, how many standard drinks containing alcohol did you have on a typical day: 1 or 2 Total score: 0 Score interpretation: A score less than 4 is consistent with normal alcohol consumption. Non-prescribed substance use: denies use Highest level of school completed/degree received: high school graduate Meds Home Medications and Allergies Home Medications ?Medication ?Instructions ?Recorded ?Confirmed ?Type albuterol sulfate 90 mcg/actuation 2 inh inhalation Q8H PRN shortness 04/16/24 04/16/24 History aerosol inhaler of breath or wheezing apixaban 5 mg tablet (Eliquis) 5 mg PO BID 04/16/24 04/16/24 History aspirin 81 mg chewable tablet 1 tab PO DAILY 04/16/24 04/16/24 History calcium carbonate 600 mg PO DAILY 04/16/24 04/16/24 History cholecalciferol (vitamin D3) 25 1,000 unit PO DAILY 04/16/24 04/16/24 History mcg (1,000 unit) tablet furosemide 20 mg tablet 20 mg PO DAILY 04/16/24 04/16/24 History gabapentin 300 mg capsule 300 mg PO BID 04/16/24 04/16/24 History metoprolol tartrate 25 mg tablet 25 mg PO DAILY 04/16/24 04/16/24 History omeprazole 40 mg capsule,delayed 40 mg PO DAILY 04/16/24 04/16/24 History release oxycodone 10 mg tablet 5 mg PO TID 04/16/24 04/16/24 History simvastatin 40 mg tablet 40 mg PO DAILY 04/16/24 04/16/24 History tamsulosin 0.4 mg capsule 0.4 mg PO DAILY 04/16/24 04/16/24 History tiotropium bromide 18 mcg capsule 1 cap inhalation DAILY 04/16/24 04/16/24 History with inhalation device tizanidine 4 mg tablet 4 mg PO BID 04/16/24 04/16/24 History trazodone 100 mg tablet 100 mg PO BEDTIME PRN insomnia 04/16/24 04/16/24 History Allergies Allergy/AdvReac Type Severity Reaction Status Date / Time Sulfa (Sulfonamide AdvReac Mild Hives Verified 04/16/24 19:10 Antibiotics) Exam Constitutional Vital Signs, click to edit/add: Last Vital Signs Temp 97.7 F 04/17/24 07:58 Pulse 69 04/17/24 10:00 Resp 18 04/17/24 07:58 BP 112/75 04/17/24 07:58 Pulse Ox 90 L 04/17/24 07:58 O2 Del Method Room Air 04/17/24 07:58 Common normals: no apparent distress General appearance: cooperative and comfortable HENMT Common normals: normocephalic and head/scalp atraumatic Respiratory Common normals: no use of accessory muscles Effort & inspection: able to speak in complete sentences Auscultation: diminished lung sounds Other: conversational dyspnea noted Cardio Common normals: regular rate, regular rhythm, S1 normal heart sound and S2 normal heart sound Jugular venous distention: JVD GI Common normals: Normal to inspection, nondistended, normoactive bowel sounds present, soft to palpation, non-tender and no hepatosplenomegaly Extremity Other: b/l LE - erythema, induration, tenderness noted extending from feet b/l to just below knee joint. Warm to touch +3 LE edema Neuro Common normals: oriented x3, moves all extremities and no focal motor deficits Psych Common normals: mental status grossly normal, thought process normal, denies homicidal ideation and denies suicidal ideation Results Labs Labs: Short CBC 04/16/24 04/17/24 Range/Units 20:15 07:29 WBC 7.5 4.3 (4.0-11.0) 10^3/uL Hgb 13.3 L 12.1 L (14.0-18.0) g/dL Hct 40.7 L 37.9 L (42.0-54.0) % Plt Count 116 L 107 L (150-450) 10^3/uL BMP 04/16/24 04/17/24 20:15 07:29 Sodium 139 142 Potassium 3.5 3.1 L Chloride 101 105 Carbon Dioxide 35.3 H 30.6 BUN 15.0 13.0 Creatinine 1.68 H 1.30 Glucose 109 H 90 Calcium 9.4 9.0 Liver Function 04/17/24 Range/Units 07:29 Total Bilirubin 0.8 (0.2-1.0) mg/dL AST 17 (15-37) U/L ALT 16 (16-63) U/L Alkaline Phosphatase 58 (46-116) U/L Albumin 2.7 L (3.4-5.0) g/dL Assessment and Plan Assessment and Plan (1) Acute on chronic diastolic (congestive) heart failure: Assessment and Plan: Elevated BNP, clinically volume overload with +3 lower extremity edema along with shortness of breath at rest that is worse on exertion. Started on IV Lasix 40 twice daily. Monitor intake and output along with daily weights. Monitor serum electrolytes and renal function closely. Echocardiogram ordered (2) Bilateral cellulitis of lower leg: Assessment and Plan: Bilateral lower extremity cellulitis, ongoing for a month. Started patient on IV vancomycin. Continue with leg elevation. (3) COPD (chronic obstructive pulmonary disease): Assessment and Plan: No evidence of active bronchospasm. Continue with DuoNebs as needed. Qualifiers: COPD type: unspecified COPD Qualified Code(s): J44.9 - Chronic obstructive pulmonary disease, unspecified (4) H/O: CVA (cerebrovascular accident): Assessment and Plan: Poor historian and insight. Patient reports prior history of CVA but he is unsure about (5) Afib: Assessment and Plan: Patient is on Eliquis for stroke prophylaxis. Continue with same. Qualifiers: Atrial fibrillation type: paroxysmal Qualified Code(s): I48.0 - Paroxysmal atrial fibrillation (6) HLD (hyperlipidemia): Assessment and Plan: Continue with simvastatin. Qualifiers: Hyperlipidemia type: mixed hyperlipidemia Qualified Code(s): E78.2 - Mixed hyperlipidemia
--- NOTE | 2024-04-17 11:21 | CA_ITS ---
Patient Name: CHOCO WHITE MR#: [id number] : 1945 Exam Date: 04/18/2024 Ordering Doctor: SHAIKH Kamron WINSTON . ECHOCARDIOGRAM REPORT PROCEDURE: CA ECHO DOPPLER COMPLETE INDICATIONS: CHF, elevated BNP, atrial fibrillation, COPD, h/o CVA COMPARISON: None. DESCRIPTION: COMPLETE ECHOCARDIOGRAM Real-time transthoracic echocardiography with 2D, M-mode, spectral and color flow Doppler performed. QUALITY: Technical quality was good. LEFT VENTRICLE: Normal chamber size. Mildly Thickened septal wall. LV EF: Mildly reduced left ventricular ejection fraction globally, (40-50%). DIASTOLIC: Not adequately assessed due to heart rhythm. ATRIAL SEPTUM: LEFT ATRIUM: Severe dilatation. RIGHT ATRIUM: Moderate dilatation. RIGHT VENTRICLE: Normal size. Normal right ventricular systolic function. TRICUSPID VALVE: Normal mobility and thickness. No stenosis with trivial regurgitation. Doppler studies reveal normal right sided pressures. MITRAL VALVE: Normal mobility and thickness. No evidence of mitral valve stenosis. There is no mitral annular calcification. Trivial mitral regurgitation. AORTIC VALVE: Normal trileaflet appearance. No visible sclerosis. Normal leaflet mobility. No evidence of aortic valve stenosis. No aortic regurgitation. AORTIC ROOT: Normal diameter and appearance. Ascending aorta is normal in size PULMONIC VALVE: Normal thickness and mobility. No stenosis. Trivial regurgitation. PERICARDIUM: No evidence of pericardial effusion. IVC: Not well visualized. PLEURA: CONCLUSION: Mildly depressed systolic function with ejection fraction of 45-50%. Trace Mitral and tricuspid regurgitation Bi-atrial dilatation Adult Echocardiography Procedure Report Left Ventricle LVEDD (3.7 - 5.6 cm): 5.44 cm LVESD (2.2 - 4.0 cm): 4.12 cm LVIVS thickness (0.6 - 1.2 cm): 1.39 cm LVPW thickness (0.5 - 1.0 cm): 1.15 cm LVOT Max Gradient: 1.10 mm[Hg], 1.35 mm[Hg] LVOT Area (cm2): 0.55 m/s Peak Velocity (LVOT): 0.52 m/s, 0.58 m/s LVOT Diameter 2.42 cm Left Atrium LA Volume Index (2D A2C): 60.30 ml/m2 Left Atrium Systolic Dimension: 4.98 cm Mitral Valve Mitral Valve E-Wave Peak Velocity: 0.65 m/s Right Ventricle Aorta AO Root Diam: 3.74 cm Ascending Ao Diam: 2.84 cm Aortic Valve AoV Area (Peak Jean): 3.90 cm2, 3.48 cm2, 4.36 cm2 Peak Velocity(Antegrade Flow): 0.69 m/s, 0.61 m/s Peak Gradient(Antegrade Flow): 1.92 mm[Hg], 1.50 mm[Hg] Tricuspid Valve Peak Velocity (Regurgitant Flow): 2.56 m/s, 2.38 m/s Pulmonic Valve Mean Gradient: 1.56 mm[Hg] Mean Velocity: 0.59 m/s Peak Velocity: 0.87 m/s, 0.75 m/s Peak Gradient: 2.27 mm[Hg], 3.03 mm[Hg] Right Atrium Right Atrium Systolic Pressure: Dictated by: Dixon Joyce MD on 04/18/2024 at 13:42 Approved by: Dixon Joyce MD on 04/18/2024 at 13:51
[2024-04-17] MEDS: OXYCODONE HCL 5 MG TABLET PO ×2 (13:41→22:33)
[2024-04-17] MEDS: VANCOMYCIN HCL 1,000 MG in 0.9 % SODIUM CHLORIDE 250 ML 150 MG IV (22:35)
[2024-04-18] VITALS (11 sets, daily range): BP systolic 100–124; BP diastolic 63–74; PULSE 62–115; TEMP 36.7–36.9; O2SAT 90–94
[2024-04-18 06:06] LABS: Basophils Percent Auto 0.3 % (0.2-2.0); Eosinophils Absolute Auto 0.1 10^3/uL (0.0-0.7); Eosinophils Percent Auto 1.8 % (0.9-7.0); Hematocrit 37.2 % (42.0-54.0); Hemoglobin 12.1 g/dL (14.0-18.0); Immature Granulocytes Abs Auto 0.02 10^3/uL (0.00-0.03); Immature Granulocytes Pct Auto 0.3 % (0.0-0.5); Lymphocytes Absolute Auto 1.5 10^3/uL (1.2-3.8); Lymphocytes Percent Auto 23.4 % (20.5-60.0); Mean Corpuscular HGB Conc 32.5 g/dL (29.9-35.2); Mean Corpuscular Hemoglobin 30.9 pg (25.9-34.0); Mean Corpuscular Volume 94.9 fL (80.0-94.0); Monocytes Percent Auto 15.2 % (1.7-12.0); Neutrophils Absolute Auto 3.7 10^3/uL (1.4-6.5); Platelet Count 114 10^3/uL (150-450); Red Blood Count 3.92 10^6/uL (4.70-6.10); Red Cell Distribution Width 14.6 % (11.0-15.0); White Blood Count 6.2 10^3/uL (4.0-11.0)
[2024-04-18] MEDS: OXYCODONE HCL 5 MG TABLET PO (06:31)
[2024-04-18 06:36] LABS: Alanine Aminotransferase 15 U/L (16-63); Albumin Level 2.7 g/dL (3.4-5.0); Alkaline Phosphatase 60 U/L (46-116); Anion Gap 7.3; Aspartate Amino Transferase 14 U/L (15-37); BUN Creatinine Ratio 8.9; Bilirubin Total 0.4 mg/dL (0.2-1.0); Calcium 8.8 mg/dL (8.5-10.1); Carbon Dioxide 33.6 mmol/L (21.0-32.0); Chloride 103 mmol/L (98-107); Estimated GFR (African America >60 (>=60); Estimated GFR (Non-African Ame 51 (>=60); Globulin 2.6 g/dL; Glucose 137 mg/dL (74-106); Sodium 141 mmol/L (136-145); Total Protein 5.3 g/dL (6.4-8.2)
[2024-04-18 07:05] LABS: Potassium 2.9 mmol/L (3.5-5.1)
[2024-04-18] MEDS: CALCIUM CARBONATE 600 MG TABLET PO (08:08)
[2024-04-18] MEDS: CHOLECALCIFEROL (VITAMIN D3) 25 MCG/1,000 UNITS TABLET PO (08:08)
[2024-04-18] MEDS: TIZANIDINE HCL 4 MG TABLET PO (08:08)
[2024-04-18] MEDS: POTASSIUM CHLORIDE 40 MEQ in 0.9 % SODIUM CHLORIDE 250 ML 67.5 MEQ IV (08:08)
[2024-04-18] MEDS: 0.9 % SODIUM CHLORIDE 250 ML 10 ML IV (08:08)
[2024-04-18] MEDS: POTASSIUM CHLORIDE 10 MEQ ER TABLET 40 MEQ PO (08:08)
[2024-04-18] MEDS: ASPIRIN 81 MG TAB.CHEW PO (08:08)
[2024-04-18] MEDS: OMEPRAZOLE 40 MG CAPSULE.DR PO (08:09)
[2024-04-18] MEDS: METOPROLOL TARTRATE 25 MG TABLET PO (08:09)
[2024-04-18] MEDS: GABAPENTIN 300 MG CAPSULE PO (08:09)
[2024-04-18] MEDS: ATORVASTATIN CALCIUM 20 MG TABLET PO (08:09)
[2024-04-18] MEDS: APIXABAN 5 MG TABLET PO (08:09)
[2024-04-18] MEDS: TAMSULOSIN HCL 0.4 MG CAPSULE PO (08:09)
[2024-04-18] MEDS: FUROSEMIDE 40 MG/4 ML VIAL IVP (08:10)
--- NOTE | 2024-04-18 10:30 | CM.NOTE ---
Rounds made with Dr. Esposito, pt will discahrge to home today and f/u with primary care doctor.
--- NOTE | 2024-04-18 12:13 | CM.NOTE ---
Important Message From Medicare discussed with pt, pt verbalizes understanding and signs paper. Original given to pt and copy placed in pt's chart.
--- NOTE | 2024-04-18 14:27 | PM.DS1 ---
DS: Providers Provider Date of admission: 04/17/24 00:02 Primary care physician: KARTHIK SEGURA Admitting clinician: Shaikh Cate Attending physician on admission: Shaikh Cate Attending physician on discharge: Shaikh Cate Discharging clinician: Shaikh Cate Anticipated date of discharge: 04/18/24 DS: Diagnosis Discharge Diagnosis (1) Acute on chronic systolic (congestive) heart failure: Assessment and plan: Acute on chronic systolic heart failure. Improved volume status with IV Lasix. Will discharge patient on oral Lasix 40 daily. He was previously on 20 mg daily Lasix. Added Toprol and losartan for heart failure with reduced ejection fraction. His blood pressure is borderline low so his medications need to be carefully titrated. Recommend follow-up with cardiology as outpatient. (2) Bilateral cellulitis of lower leg: Assessment and plan: Improved with IV vancomycin. Will discharge on oral clindamycin. (3) COPD (chronic obstructive pulmonary disease): Assessment and plan: Continue with home medications. No active wheezing noted Qualifiers: COPD type: unspecified COPD Qualified Code(s): J44.9 - Chronic obstructive pulmonary disease, unspecified (4) H/O: CVA (cerebrovascular accident): Assessment and plan: Prior history of CVA. At baseline neurological function. Monitor. (5) Afib: Assessment and plan: On Eliquis for paroxysmal A-fib. Monitor as outpatient. Follow-up with Cardiology Qualifiers: Atrial fibrillation type: paroxysmal Qualified Code(s): I48.0 - Paroxysmal atrial fibrillation (6) HLD (hyperlipidemia): Assessment and plan: Continue with statin Qualifiers: Hyperlipidemia type: mixed hyperlipidemia Qualified Code(s): E78.2 - Mixed hyperlipidemia DS: Summary Hospital Course Hospital Course: 78-year-old male presented with worsening shortness of breath, orthopnea and PND along with lower extremity edema. He also reported bilateral lower extremity swelling, erythema, tenderness. He is a poor historian and has poor insight into his medical hx. Patient was admitted initially for obs then changed to inpatient for treatment of b/l cellulitis and acute on chronic systolic HF (new finding). He was treated with iv lasix, iv vancomycin for it. Patient improved sooner than anticipated and feels better today. Erythema/induration/pain has sig improved. Stable for d/c on oral clindamcycin and lasix. Added toprol and losartan for hfref. will need outpatient f/u with pcp and cardiology. Status at Discharge Functional status at discharge: uses cane/walker Overall status at discharge: patient is back to baseline Time Spent with Patient Time attestation: Total time spent providing and/or coordinating discharge services: Time spent: greater than 30 minutes Exam Constitutional Vital Signs, click to edit/add: Last Vital Signs Temp 98.0 F 04/18/24 12:01 Pulse 108 H 04/18/24 14:00 Resp 16 04/18/24 12:01 BP 100/63 04/18/24 12:01 Pulse Ox 90 L 04/18/24 12:01 O2 Del Method Room Air 04/18/24 12:01 Documenting provider has reviewed patient's vital signs: yes Common normals: no apparent distress and oriented x3 General appearance: cooperative Respiratory Common normals: normal respiratory effort and clear to auscultation bilaterally Effort & inspection: able to speak in complete sentences Auscultation: clear to auscultation bilaterally Cardio Common normals: regular rate, S1 normal heart sound and S2 normal heart sound Rate: regular rate Heart sounds: S1 normal and S2 normal Extremity Other: b/l erythema/tenderness improved from before. LE edema is also better Neuro Common normals: oriented x3, moves all extremities and no focal motor deficits Psych Common normals: mental status grossly normal, denies hallucinations, denies homicidal ideation and denies suicidal ideation DS: Data Data Completed and Pending Labs on day of discharge: Labs from last 24 hours 04/18/24 04:54 WBC 6.2 RBC 3.92 L Hgb 12.1 L Hct 37.2 L MCV 94.9 H MCH 30.9 MCHC 32.5 RDW 14.6 Plt Count 114 L MPV 13.0 Neut % (Auto) 59.0 Lymph % (Auto) 23.4 [place] % (Auto) 15.2 H Eos % (Auto) 1.8 Baso % (Auto) 0.3 Neut # (Auto) 3.7 Lymph # (Auto) 1.5 [place] # (Auto) 1.0 H Eos # (Auto) 0.1 Baso # (Auto) 0.0 Abs Immat Gran (auto) 0.02 Imm/Tot Granulo (auto) 0.3 Sodium 141 Potassium 2.9 L* Chloride 103 Carbon Dioxide 33.6 H Anion Gap 7.3 BUN 12.0 Creatinine 1.35 H Est GFR ( Amer) >60 Est GFR (Non-Af Amer) 51 L BUN/Creatinine Ratio 8.9 Glucose 137 H Calcium 8.8 Total Bilirubin 0.4 AST 14 L ALT 15 L Alkaline Phosphatase 60 NT-Pro-B Natriuret Pep 3157.0 H* Total Protein 5.3 L Albumin 2.7 L Globulin 2.6 Albumin/Globulin Ratio 1.0 Discharge Plan Discharge Disposition: Home, Self-Care Condition: Fair Discharge Medications: New losartan 25 mg tablet 25 mg PO DAILY Qty: 30 0RF metoprolol succinate [Toprol XL] 50 mg tablet extended release 24 hr 50 mg PO DAILY Qty: 30 0RF clindamycin HCl 300 mg capsule 300 mg PO Q6H 7 Days Qty: 28 0RF Continued tizanidine 4 mg tablet 4 mg PO BID omeprazole 40 mg capsule,delayed release(DR/EC) 40 mg PO DAILY simvastatin 40 mg tablet 40 mg PO DAILY calcium carbonate 600 mg calcium (1,500 mg) tablet 600 mg PO DAILY tamsulosin 0.4 mg capsule 0.4 mg PO DAILY trazodone 100 mg tablet 100 mg PO BEDTIME PRN (Reason: insomnia) gabapentin 300 mg capsule 300 mg PO BID aspirin 81 mg tablet,chewable 1 tab PO DAILY albuterol sulfate 90 mcg/actuation HFA aerosol inhaler 2 inh INHALATION Q8H PRN (Reason: shortness of breath or wheezing) tiotropium bromide 18 mcg capsule, w/inhalation device 1 cap INHALATION DAILY cholecalciferol (vitamin D3) 25 mcg (1,000 unit) tablet 1,000 unit PO DAILY oxycodone 10 mg tablet 5 mg PO TID Eliquis 5 mg tablet 5 mg PO BID Changed furosemide 20 mg tablet 40 mg PO DAILY Qty: 0 0RF Discontinued metoprolol tartrate 25 mg tablet 25 mg PO DAILY Activity: increase activity as tolerated Diet: low fat, low cholesterol and low salt diet Print Language: Slovak Patient Instructions: Heart Failure (DC), Cellulitis (ED), Edema (DC) Forms: Portal Instructions Follow Up Appointments: Schedule a follow up appt. with Dr. Segura for 5-7 days following discharge. [phone] Follow up with [facility] Cardiology in 2-3 weeks BMP in one week
[2024-04-18 15:10] LABS: Anion Gap 9.1; BUN Creatinine Ratio 8.5; Calcium 9.1 mg/dL (8.5-10.1); Carbon Dioxide 31.5 mmol/L (21.0-32.0); Chloride 103 mmol/L (98-107); Estimated GFR (African America 59 (>=60); Estimated GFR (Non-African Ame 49 (>=60); Glucose 132 mg/dL (74-106); Potassium 3.6 mmol/L (3.5-5.1); Sodium 140 mmol/L (136-145)
--- NOTE | 2024-04-19 14:14 | CM.DCFOLLOWU ---
Person spoke with: patient How are you feeling? well How is your pain? none Did you understand your discharge instructions? yes Do you have any questions about your discharge instructions? no Were you given any prescriptions at discharge? yes Were you able to get your prescriptions filled? yes Do you understand how to take your medications as ordered? yes Do you have any questions about your follow up appointment and do you plan to keep your follow up appointment? no questions, he voiced he call to schedule follow up Is there anything else that you would like to discuss? no Questions/Comments/Concerns/Other: none
== END 2024-04-18 15:47 | disposition home or self-care (01) | DRG 292 ==
LOC: ER 22:14 → MS 04-17 10:00
PROVIDERS: Registered Nurse; Admitting Provider Internal Medicine; Emergency Provider Emergency Medicine; PCP Internal Medicine; Visit Provider Internal Medicine
DX: I50.23 Acute on chronic systolic (congestive) heart failure (principal); L03.115 Cellulitis of right lower limb; L03.116 Cellulitis of left lower limb; J44.9 Chronic obstructive pulmonary disease, unspecified; Z86.73 Personal history of transient ischemic attack (TIA), and cerebral infarction without residual deficits; I48.0 Paroxysmal atrial fibrillation; Z79.01 Long term (current) use of anticoagulants; E78.2 Mixed hyperlipidemia
CPT/HCPCS: 36415; 71045; 80048; 80053; 80202; 83735; 83880; 84100; 84484; 85025; 85610; 85730; 93005; 93306; 94761; 96365; 96366; 96367; 96375; 96376; 99285; J1940; J3370; J3480

== ENCOUNTER 2024-05-04 18:10 | Emergency (ER) | payer MEDICARE, MEDICAID, SELFPAY ==
[2024-05-04] VITALS (24 sets, daily range): BP systolic 111–116; BP diastolic 64–79; PULSE 80–148; TEMP 36.8; O2SAT 90–97; BMI 29.0
--- NOTE | 2024-05-04 18:19 | ECG_ITS ---
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
--- NOTE | 2024-05-04 18:19 | XR_ITS ---
The [address] [address] Patient Name: CHOCO WHITE MRN: [id number] date: 1945 Sex: M Assigned Patient Location: ED.MAIN Current Patient Location: ER Accession/Order Number: [id number] Exam Date: 05/04/2024 18:30 Report Date: 05/04/2024 18:48 At the request of: PAYAL MCKINNEY Procedure: XR chest 1V Exam: Radiographs: XR chest 1V Reason for exam: shakiness Comparison: Plain films dated 04/16/2024 XR/XR chest 1V IMPRESSION: Minimal atelectasis or scarring in the lower lungs bilaterally. Pulmonary venous hypertension. Elevation of the left hemidiaphragm. Remainder the chest is unremarkable. Electronically authenticated by: JOAQUINA PRESSLEY Date: 05/04/2024 18:48
[2024-05-04] MEDS: 0.9 % SODIUM CHLORIDE 500 ML IV (18:25)
--- OUTSIDE RECORDS SUMMARY | 2024-05-04 18:27 | XMS_ITS | CCD ---
Author Organization [facility] Care Team Providers Care Corner Block Cutter Name Role Phone PROVIDER, UNKNOWN Attending Unavailable [...] SURGERY NEURO Consulting Unavai lable REQUEST, IP HOSPITALIST MEDICAL DIRECTOR SERVICE Consul ting Unavailable CONSULT, IP CARDIOLOGY ELECTROPHYSIOLOGY (EP) Co nsulting Unavailable REQUEST, IP QUARTER SECTION IRONER SERVICE Consulting Unavaila ble CONSULT, IP DENTISTRY [...] Unavailable Karthik Ireland DO Primary Care Provider [phone] Karthik Ireland DO Unavailable [phone] KARTHIK IRELAND Primary Care Physician Unavail able [...] YU Attending Unavailable SWAPNA FONSECA Attending Unavailable KARTHIK IRELAND Attending Unavailable KARTHIK IRELAND Referring Unavailable Allergies Allergy Classification Reported Allergen(s) Allergy Type Date of Onset Reaction(s) Facility (1 source) SULFA DRUGS CROSS REACTORS; Translations: [SULFA DRUGS CROSS REACTORS] Propensity to adverse reactions to drug (disorder) [address] [facility] (1 source) Sulfonamides (Antibiotic) Drug allergy (disorder) 4 [facility] (2 sources) Sulfonamides (Antibiotic) Drug Allergy 3 [facility] (2 sources) Sulfamethoxazole ; Translations: [sulfamethoxazol e] Drug Allergy Unknown (qualifier value) [facility] (2 sources) Unable to obtain; Translations: [Unable to obtain] Drug allergy [facility] Medications Current Medications Medication Drug Class(es) Dates Sig (Normalized) Sig (Original) [id number] 200 actuat albuterol 0.09 mg/actuat metered dose [...] MCG (1000 UT) tablet Indications: Mixed hyperlipidemia (CMS/HCC) TAKE 1 TABLET BY MOUTH DAILY DIRECTED [...] HMG-CoA Reductase Inhibitor St ar t: 06 take 1 tablet by mouth at bedtime [...] MINUTES AFTER THE SAME MEAL 30 capsule 10 03/05/2023 Active Start: 06-08-2019 tamsulosin mg Start [...] disease (4 sources) Atherosclerotic heart disease of [place] coronary artery without angina pectoris; Translations: [Coronary [...] 07-13-2022 Episodic Other aftercare (1 source) Other intermediate manager (current) drug therapy; Translations: [OTH [facility] CURRENT DRUG THERAPY] Onset: 07-13-2022 Episodic Other [...] 11-10-2022 BASO # 0.0 103/ul Normal 0.0-0.1 [facility] Comment on above: Performed By: #### C BC #### [facility] [address] [place] [address] Dr. Karen Marie Basophils/100 WBC (Bld) 0.4 % Normal 0.2-2.0 [facility] Comment on above: Performed By: #### C BC #### [facility] [address] [place] [address] Dr. Karen Marie EO # 0.1 103/ul Normal 0.0-0.7 [facility] Comment on above: Performed By: #### C BC #### [facility] [address] [address] [address] Karen Marie Eosinophils/100 WBC (Bld) 1.9 % Normal 0.9-7.0 [facility] Comment on above: Performed By: #### C BC #### [facility] [address] [place] [address] Dr. Karen Marie Erythrocyte distribution width (RBC) [Ratio] 16.1 % Critically high 11.0-15.0 [facility] Comment on above: Performed By: #### C BC #### [facility] [address] [place] [address] Dr. Karen Marie Hematocrit (Bld) [Volume fraction] 42.5 % Normal 42.0-54.0 [facility] Comment on above: Performed By: #### C BC #### [facility] [address] [place] [address] Dr. Karen Marie Hemoglobin (Bld) [Mass/Vol] 13.5 g/dL Critically low 14.0-18.0 [facility] Comment on above: Performed By: #### C BC #### [facility] [address] [place] [address] Dr. Karen Marie IG # 0.03 10e3/ul Normal 0.00-0.03 [facility] Comment on above: Performed By: #### C BC #### [facility] [address] [place] [address] Dr. Karen Marie IG % 0.4 % Normal 0.0-0.5 [facility] Comment on above: Performed By: #### C BC #### [facility] [address] [place] [address] Dr. Karen Marie LYMPH # 1.7 103/ul Normal 1.2-3.8 [facility] Comment on above: Performed By: #### C BC #### [facility] [address] [place] [address] Dr. Karen Marie Lymphocytes/100 WBC (Bld) 22.3 % Normal 20.5-60.0 [facility] Comment on above: Performed By: #### C BC #### [facility] [address] [place] [address] Dr. Karen Marie MANUAL DIFF REQ NO Normal [facility] Comment on above: Performed By: #### C BC #### [facility] [address] [place] [address] Dr. Karen Marie MCH (RBC) [Entitic mass] 27.8 pg Normal 25.9-34.0 [facility] Comment on above: Performed By: #### C BC #### [facility] [address] [address] [address] Karen Marie MCHC (RBC) [Mass/Vol] 31.8 g/dL Normal 29.9-35.2 [facility] Comment on above: Performed By: #### C BC #### [facility] [address] [address] [address] Karen Marie MCV (RBC) [Entitic vol] 87.4 fL Normal 80.0-94.0 [facility] Comment on above: Performed By: #### C BC #### [facility] [address] [address] [address] Karen Marie MONO # 0.9 103/ul Critically high 0.3-0.8 [facility] Comment on above: Performed By: #### C BC #### [facility] [address] [place] [address] Dr. Karen Marie Monocytes/100 WBC (Bld) 11.4 % Normal 1.7-12.0 [facility] Comment on above: Performed By: #### C BC #### [facility] [address] [address] [address] Karen Marie NEUT # 4.7 103/ul Normal 1.4-6.5 [facility] Comment on above: Performed By: #### C BC #### [facility] [address] [place] [address] Dr. Karen Marie Neutrophils/100 WBC (Bld) 63.6 % Normal 43.0-75.0 [facility] Comment on above: Performed By: #### C BC #### [facility] [address] [address] [address] Karen Marie Platelet mean volume (Bld) [Entitic vol] 11.9 fL Normal 9.5-13.5 [facility] Comment on above: Performed By: #### C BC #### [facility] [address] [place] [address] Dr. Karen Marie PLT 162 103/ul Normal 150-450 [facility] Comment on above: Performed By: #### C BC #### [facility] [address] [place] [address] Dr. Karen Marie RBC 4.86 106/ul Normal 4.70-6.10 [facility] Comment on above: Performed By: #### C BC #### [facility] [address] [place] [address] Dr. Karen Marie WBC 7.4 103/ul Normal 4.0-11.0 [facility] Comment on above: Performed By: #### C BC #### [facility] [address] [place] [address] Dr. Karen Marie PROF 14(COMP METB)on 023 Albumin [Mass/Vol] 3.8 g/dL Normal 3.4-5.[address] [facility] Comment on above: Performed By: #### P SAD, FERR, FETIBC #### [facility] [address] [place] [address] Dr. Karen Marie Albumin/Globulin [Mass ratio] 1.1 {ratio} Normal [facility] Comment on above: Performed By: #### P SAD, FERR, FETIBC #### [facility] [address] [place] [address] Dr. Karen Marie ALP [Catalytic activity/Vol] 79 U/L Normal 46-116 [facility] Comment on above: Performed By: #### P SAD, FERR, FETIBC #### [facility] [address] [place] [address] Dr. Karen Marie ALT [Catalytic activity/Vol] 15 U/L Critically low 16-63 [facility] Comment on above: Performed By: #### P SAD, FERR, FETIBC #### [facility] [address] [place] [address] Dr. Karen Marie Anion gap [Moles/Vol] 12.3 mmol/L Normal [facility] Comment on above: Performed By: #### P SAD, FERR, FETIBC #### [facility] [address] [place] [address] Dr. Karen Marie AST [Catalytic activity/Vol] 17 U/L Normal 15-37 [facility] Comment on above: Performed By: #### P SAD, FERR, FETIBC #### [facility] [address] [address] [address] Karen Marie Bilirubin [Mass/Vol] 0.9 mg/dL Normal 0.2-1.0 [facility] Comment on above: Performed By: #### P SAD, FERR, FETIBC #### [facility] [address] [place] [address] Dr. Karen Marie Calcium [Mass/Vol] 9.3 mg/dL Normal 8.5-10.[address] [facility] Comment on above: Performed By: #### P SAD, FERR, FETIBC #### [facility] [address] [place] [address] Dr. Karen Marie Chloride [Moles/Vol] 103 mmol/L Normal 98-107 [facility] Comment on above: Performed By: #### P SAD, FERR, FETIBC #### [facility] [address] [place] [address] Dr. Karen Marie CO2 [Moles/Vol] 30.7 mmol/L Normal 21.0-32.[address] [facility] Comment on above: Performed By: #### P SAD, FERR, FETIBC #### [facility] [address] [place] [address] Dr. Karen Marie Creatinine [Mass/Vol] 1.37 mg/dL Critically high 0.70-1.30 [facility] Comment on above: Performed By: #### P SAD, FERR, FETIBC #### [facility] [address] [place] [address] Dr. Karen Marie EGFR-AF [facility] >60 Normal >=60 [facility] Comment on above: Performed By: #### P SAD, FERR, FETIBC #### [facility] [address] [place] [address] Dr. Karen Marie EGFR-NON AF [facility] 51 mL/min/1.73m2 Critically low >=60 [facility] Comment on above: Performed By: #### P SAD, FERR, FETIBC #### [facility] [address] [place] [address] Dr. Karen Marie Globulin (S) [Mass/Vol] 3.5 g/dL Normal [facility] Comment on above: Performed By: #### P SAD FERR, FETIBC #### [facility] [address] [address] [address] Karen Marie Glucose [Mass/Vol] 102 mg/dL Normal 74-106 [facility] Comment on above: Performed By: #### P SAD FERR, FETIBC #### [facility] [address] [address] [address] Karen Marie Potassium [Moles/Vol] 4.0 mmol/L Normal 3.5-5.1 [facility] Comment on above: Performed By: #### P SAD FERR, FETIBC #### [facility] [address] [place] [address] Dr. Karen Marie Protein [Mass/Vol] 7.3 g/dL Normal 6.4-8.2 [facility] Comment on above: Performed By: #### P SAD, FERR, FETIBC #### [facility] [address] [place] [address] Dr. Karen Marie Sodium [Moles/Vol] 142 mmol/L Normal 136-145 [facility] Comment on above: Performed By: #### P SAD, FERR, FETIBC #### [facility] [address] [place] [address] Dr. Karen Marie Urea nitrogen [Mass/Vol] 16.0 mg/dL Normal 7.0-18.0 [facility] Comment on above: Performed By: #### P SAD, FERR, FETIBC #### [facility] [address] [place] [address] Dr. Karen Marie Urea nitrogen/Creatinine [Mass ratio] 11.7 mg/mg Normal [facility] Comment on above: Performed By: #### P SAD, FERR, FETIBC #### [facility] [address] [place] [address] Dr. Karen Marie URIC ACID SERUMon 11-10-2022 Urate [Mass/Vol] 8.9 mg/dL Critically high 3.5-7.2 [facility] Comment on above: Performed By: #### P SAD, FERR, FETIBC #### [facility] [address] [place] [address] Dr. Karen Marie CBC AUTO DIFFon 07-08-2022 BASO # 0.0 103/ul Normal 0.0-0.1 [facility] Comment on above: Performed By: #### P SAD, FERR, FETIBC #### [facility] [address] [place] [address] Dr. Karen Marie Basophils/100 WBC (Bld) 0.4 % Normal 0.2-2.0 [facility] Comment on above: Performed By: #### P SAD, FERR, FETIBC #### [facility] [address] [place] [address] Dr. Karen Marie EO # 0.1 103/ul Normal 0.0-0.7 [facility] Comment on above: Performed By: #### P SAD, FERR, FETIBC #### [facility] [address] [place] [address] Dr. Karen Marie Eosinophils/100 WBC (Bld) 1.7 % Normal 0.9-7.0 [facility] Comment on above: Performed By: #### P SAD, FERR, FETIBC #### [facility] [address] [place] [address] Dr. Karen Marie Erythrocyte distribution width (RBC) [Ratio] 13.6 % Normal 11.0-15.0 [facility] Comment on above: Performed By: #### P SAD, FERR, FETIBC #### [facility] [address] [place] [address] Dr. Karen Marie Hematocrit (Bld) [Volume fraction] 43.3 % Normal 42.0-54.0 [facility] Comment on above: Performed By: #### P SAD, FERR, FETIBC #### [facility] [address] [place] [address] Dr. Karen Marie Hemoglobin (Bld) [Mass/Vol] 14.3 g/dL Normal 14.0-18.0 [facility] Comment on above: Performed By: #### P SAD, FERR, FETIBC #### [facility] [address] [place] [address] Dr. Karen Marie IG # 0.01 10e3/ul Normal 0.00-0.03 [facility] Comment on above: Performed By: #### P SAD, FERR, FETIBC #### [facility] [address] [place] [address] Dr. Karen Marie IG % 0.1 % Normal 0.0-0.5 [facility] Comment on above: Performed By: #### P SAD, FERR, FETIBC #### [facility] [address] [place] [address] Dr. Karen Marie LYMPH # 1.9 103/ul Normal 1.2-3.8 [facility] Comment on above: Performed By: #### P SAD, FERR, FETIBC #### [facility] [address] [place] [address] Dr. Karen Marie Lymphocytes/100 WBC (Bld) 27.7 % Normal 20.5-60.0 [facility] Comment on above: Performed By: #### P SAD, FERR, FETIBC #### [facility] [address] [place] [address] Dr. Karen Marie MANUAL DIFF REQ NO Normal [facility] Comment on above: Performed By: #### P SAD, FERR, FETIBC #### [facility] [address] [place] [address] Dr. Karen Marie MCH (RBC) [Entitic mass] 29.9 pg Normal 25.9-34.0 [facility] Comment on above: Performed By: #### P SAD, FERR, FETIBC #### [facility] [address] [place] [address] Dr. Karen Marie MCHC (RBC) [Mass/Vol] 33.0 g/dL Normal 29.9-35.2 [facility] Comment on above: Performed By: #### P SAD, FERR, FETIBC #### [facility] [address] [place] [address] Dr. Karen Marie MCV (RBC) [Entitic vol] 90.6 fL Normal 80.0-94.0 [facility] Comment on above: Performed By: #### P SAD, FERR, FETIBC #### [facility] [address] [place] [address] Dr. Karen Marie MONO # 0.8 103/ul Normal 0.3-0.8 [facility] Comment on above: Performed By: #### P SAD, FERR, FETIBC #### [facility] [address] [place] [address] Dr. Karen Marie Monocytes/100 WBC (Bld) 11.1 % Normal 1.7-12.0 [facility] Comment on above: Performed By: #### P SAD, FERR, FETIBC #### [facility] [address] [place] [address] Dr. Karen Marie NEUT # 4.1 103/ul Normal 1.4-6.5 [facility] Comment on above: Performed By: #### P SAD, FERR, FETIBC #### [facility] [address] [place] [address] Dr. Karen Marie Neutrophils/100 WBC (Bld) 59.0 % Normal 43.0-75.0 [facility] Comment on above: Performed By: #### P SAD, FERR, FETIBC #### [facility] [address] [place] [address] Dr. Karen Marie Platelet mean volume (Bld) [Entitic vol] 11.3 fL Normal 9.5-13.5 [facility] Comment on above: Performed By: #### P SAD, FERR, FETIBC #### [facility] [address] [place] [address] Dr. Karen Marie PLT 175 103/ul Normal 150-450 [facility] Comment on above: Performed By: #### P SAD, FERR, FETIBC #### [facility] [address] [place] [address] Dr. Karen Marie RBC 4.78 106/ul Normal 4.70-6.10 [facility] Comment on above: Performed By: #### P SAD, FERR, FETIBC #### [facility] [address] [address] [address] Karen Marie WBC 7.0 103/ul Normal 4.0-11.0 [facility] Comment on above: Performed By: #### P SAD, FERR, FETIBC #### [facility] [address] [address] [address] Karen Marie FERRITINon 07-08-2022 Ferritin [Mass/Vol] 43.0 ng/mL Normal 26.0-388.0 [facility] Comment on above: Performed By: #### P SAD, FERR, FETIBC #### [facility] [address] [place] [address] Dr. Karen Marie IRON AND TIBCon 07-08-2022 % SATURATION 12.7 % Normal [facility] Comment on above: Performed By: #### P SAD, FERR, FETIBC #### [facility] [address] [address] [address] Karen Marie Iron [Mass/Vol] 46.0 ug/dL Critically low 65.0-175.0 [facility] Comment on above: Performed By: #### P SAD, FERR, FETIBC #### [facility] [address] [place] [address] Dr. Karen Marie TIBC DIRECT 363.0 ug/dL Normal 250.0-450.0 [facility] Comment on above: Performed By: #### P SAD, FERR, FETIBC #### [facility] [address] [place] [address] Dr. Karen Marie LIPID PROFILEon 07-08-2022 CHOL-HDL RATIO NORM SEE BELOW Normal [facility] Comment on above: Result Comment: 3.3 - 4.4 LOW RISK 4.4 - 7.1 AVERAGE RISK 7.1 - 11.0 MODERATE RISK >11.0 HIGH RISK Performed By: #### L IPID, CMP, URIC, TSH #### [facility] [address] [place] [address] Dr. Karen Marie Cholesterol [Mass/Vol] 131 mg/dL Normal <=200 [facility] Comment on above: Performed By: #### L IPID, CMP, URIC, TSH #### [facility] [address] [address] [address] Karen Marie Cholesterol in HDL [Mass/Vol] 52 mg/dL Normal 40-60 [facility] Comment on above: Performed By: #### L IPID, CMP, URIC, TSH #### [facility] [address] [address] [address] Karen Marie Cholesterol in LDL [Mass/Vol] 59.2 mg/dL Normal [facility] Comment on above: Performed By: #### L IPID, CMP, URIC, TSH #### [facility] [address] [address] [address] Karen Marie Cholesterol.total/Chol esterol in HDL [Mass ratio] 2.5 {ratio} Normal [facility] Comment on above: Performed By: #### L IPID, CMP, URIC, TSH #### [facility] [address] [address] [address] Karen Marie HDL NORMAL > or = 60 mg/dl - LOW CARDIOVASCULAR RISK <40 mg/dl - HIGH CARDIOVASCULAR RISK Normal [facility] Comment on above: Performed By: #### L IPID, CMP, URIC, TSH #### [facility] [address] [address] [address] Karen Marie LDL CALC NORMAL SEE BELOW Normal [facility] Comment on above: Result Comment: <100 mg/dl OPTIMAL 100 - 129 mg/dl NEAR OR ABOVE OPTIMAL 130 - 159 mg/dl BORDERLINE HIGH 160 - 189 mg/dl HIGH >190 mg/dl VERY HIGH Performed By: #### L IPID, CMP, URIC, TSH #### [facility] [address] [address] [address] Karen Marie Triglyceride [Mass/Vol] 99 mg/dL Normal <=150 [facility] Comment on above: Performed By: #### L IPID, CMP, URIC, TSH #### [facility] [address] [address] [address] Karen Marie VLDL CALC 19.8 mg/dL Normal [facility] Comment on above: Performed By: #### L IPID, CMP, URIC, TSH #### [facility] [address] [address] [address] Karen Marie PROF 14(COMP METB)on 022 Albumin [Mass/Vol] 3.5 g/dL Normal 3.4-5.[address] [facility] Comment on above: Performed By: #### L IPID, CMP, URIC, TSH #### [facility] [address] [address] [address] Karen Marie Albumin/Globulin [Mass ratio] 0.9 {ratio} Normal [facility] Comment on above: Performed By: #### L IPID, CMP, URIC, TSH #### [facility] [address] [place] [address] Dr. Karen Marie ALP [Catalytic activity/Vol] 83 U/L Normal 46-116 [facility] Comment on above: Performed By: #### L IPID, CMP, URIC, TSH #### [facility] [address] [place] [address] Dr. Karen Marie ALT [Catalytic activity/Vol] 13 U/L Critically low 16-63 [facility] Comment on above: Performed By: #### L IPID, CMP, URIC, TSH #### [facility] [address] [place] [address] Dr. Karen Marie Anion gap [Moles/Vol] 6.9 mmol/L Normal [facility] Comment on above: Performed By: #### L IPID, CMP, URIC, TSH #### [facility] [address] [place] [address] Dr. Karen Marie AST [Catalytic activity/Vol] 25 U/L Normal 15-37 [facility] Comment on above: Performed By: #### L IPID, CMP, URIC, TSH #### [facility] [address] [place] [address] Dr. Karen Marie Bilirubin [Mass/Vol] 0.5 mg/dL Normal 0.2-1.0 [facility] Comment on above: Performed By: #### L IPID, CMP, URIC, TSH #### [facility] [address] [address] [address] Karen Marie Calcium [Mass/Vol] 9.9 mg/dL Normal 8.5-10.[address] [facility] Comment on above: Performed By: #### L IPID, CMP, URIC, TSH #### [facility] [address] [address] [address] Karen Marie Chloride [Moles/Vol] 101 mmol/L Normal 98-107 [facility] Comment on above: Performed By: #### L IPID, CMP, URIC, TSH #### [facility] [address] [address] [address] Karen Marie CO2 [Moles/Vol] 31.5 mmol/L Normal 21.0-32.[address] [facility] Comment on above: Performed By: #### L IPID, CMP, URIC, TSH #### [facility] [address] [place] [address] Dr. Karen Marie Creatinine [Mass/Vol] 1.51 mg/dL Critically high 0.70-1.30 [facility] Comment on above: Performed By: #### L IPID, CMP, URIC, TSH #### [facility] [address] [place] [address] Dr. Karen Marie EGFR-AF [facility] 55 mL/min/1.73m2 Critically low >=60 [facility] Comment on above: Performed By: #### L IPID, CMP, URIC, TSH #### [facility] [address] [address] [address] Karen Marie EGFR-NON AF [facility] 45 mL/min/1.73m2 Critically low >=60 [facility] Comment on above: Performed By: #### L IPID, CMP, URIC, TSH #### [facility] [address] [address] [address] Karen Marie Globulin (S) [Mass/Vol] 3.9 g/dL Normal [facility] Comment on above: Performed By: #### L IPID, CMP, URIC, TSH #### [facility] [address] [address] [address] Karen Marie Glucose [Mass/Vol] 124 mg/dL Critically high 74-106 [facility] Comment on above: Performed By: #### L IPID, CMP, URIC, TSH #### [facility] [address] [place] [address] Dr. Karen Marie Potassium [Moles/Vol] 3.4 mmol/L Critically low 3.5-5.1 [facility] Comment on above: Performed By: #### L IPID, CMP, URIC, TSH #### [facility] [address] [place] [address] Dr. Karen Marie Protein [Mass/Vol] 7.4 g/dL Normal 6.4-8.[address] [facility] Comment on above: Performed By: #### L IPID, CMP, URIC, TSH #### [facility] [address] [place] [address] Dr. Karen Marie Sodium [Moles/Vol] 136 mmol/L Normal 136-[address] [facility] Comment on above: Performed By: #### L IPID, CMP, URIC, TSH #### [facility] [address] [place] [address] Dr. Karen Marie Urea nitrogen [Mass/Vol] 13.0 mg/dL Normal 7.0-18.0 [facility] Comment on above: Performed By: #### L IPID, CMP, URIC, TSH #### [facility] [address] [place] [address] Dr. Karen Marie Urea nitrogen/Creatinine [Mass ratio] 8.6 mg/mg Normal [facility] Comment on above: Performed By: #### L IPID, CMP, URIC, TSH #### [facility] [address] [place] [address] Dr. Karen Marie TSHon 07-08-2022 TSH 2.103 uIU/mL Normal 0.358-3.740 [facility] Comment on above: Performed By: #### L IPID, CMP, URIC, TSH #### [facility] [facility] [address] [place] [address] Dr. Karen Marie URIC ACID SERUMon 07-08-2022 Urate [Mass/Vol] 9.4 mg/dL Critically high 3.5-7.2 [facility] Comment on above: Performed By: #### L IPID, CMP, URIC, TSH #### [facility] [address] [place] [address] Dr. Karen Marie CBC AUTO DIFFon 02-19-2022 BASO # 0.0 103/ul Normal 0.0-0.1 [facility] Comment on above: Performed By: #### C BC #### [facility] [address] [place] [address] Dr. Karen Marie Basophils/100 WBC (Bld) 0.4 % Normal 0.2-2.0 [facility] Comment on above: Performed By: #### C BC #### [facility] [address] [place] [address] Dr. Karen Marie EO # 0.2 103/ul Normal 0.0-0.7 [facility] Comment on above: Performed By: #### C BC #### [facility] [address] [place] [address] Dr. Karen Marie Eosinophils/100 WBC (Bld) 3.2 % Normal 0.9-7.0 [facility] Comment on above: Performed By: #### C BC #### [facility] [address] [place] [address] Dr. Karen Marie Erythrocyte distribution width (RBC) [Ratio] 13.7 % Normal 11.0-15.0 [facility] Comment on above: Performed By: #### C BC #### [facility] [address] [place] [address] Dr. Karen Marie Hematocrit (Bld) [Volume fraction] 43.2 % Normal 42.0-54.0 [facility] Comment on above: Performed By: #### C BC #### [facility] [address] [place] [address] Dr. Karen Marie Hemoglobin (Bld) [Mass/Vol] 13.8 g/dL Critically low 14.0-18.0 [facility] Comment on above: Performed By: #### C BC #### [facility] [address] [place] [address] Dr. Karen Marie IG # 0.03 10e3/ul Normal 0.00-0.03 [facility] Comment on above: Performed By: #### C BC #### [facility] [address] [place] [address] Dr. Karen Marie IG % 0.4 % Normal 0.0-0.5 [facility] Comment on above: Performed By: #### C BC #### [facility] [address] [place] [address] Dr. Karen Marie LYMPH # 1.6 103/ul Normal 1.2-3.8 [facility] Comment on above: Performed By: #### C BC #### [facility] [address] [place] [address] Dr. Karen Marie Lymphocytes/100 WBC (Bld) 23.7 % Normal 20.5-60.0 [facility] Comment on above: Performed By: #### C BC #### [facility] [address] [place] [address] Dr. Karen Marie MANUAL DIFF REQ NO Normal [facility] Comment on above: Performed By: #### C BC #### [facility] [address] [place] [address] Dr. Karen Marie MCH (RBC) [Entitic mass] 30.1 pg Normal 25.9-34.0 [facility] Comment on above: Performed By: #### C BC #### [facility] [address] [place] [address] Dr. Karen Marie MCHC (RBC) [Mass/Vol] 31.9 g/dL Normal 29.9-35.2 [facility] Comment on above: Performed By: #### C BC #### [facility] [address] [place] [address] Dr. Karen Marie MCV (RBC) [Entitic vol] 94.3 fL Critically high 80.0-94.0 [facility] Comment on above: Performed By: #### C BC #### [facility] [address] [place] [address] Dr. Karen Marie MONO # 0.8 103/ul Normal 0.3-0.8 [facility] Comment on above: Performed By: #### C BC #### [facility] [address] [place] [address] Dr. Karen Marie Monocytes/100 WBC (Bld) 11.7 % Normal 1.7-12.0 [facility] Comment on above: Performed By: #### C BC #### [facility] [address] [place] [address] Dr. Karen Marie NEUT # 4.1 103/ul Normal 1.4-6.5 [facility] Comment on above: Performed By: #### C BC #### [facility] [address] [place] [address] Dr. Karen Marie Neutrophils/100 WBC (Bld) 60.6 % Normal 43.0-75.0 [facility] Comment on above: Performed By: #### C BC #### [facility] [address] [place] [address] Dr. Karen Marie Platelet mean volume (Bld) [Entitic vol] 11.9 fL Normal 9.5-13.5 [facility] Comment on above: Performed By: #### C BC #### [facility] [address] [place] [address] Dr. Karen Marie PLT 129 103/ul Critically low 150-450 [facility] Comment on above: Performed By: #### C BC #### [facility] [address] [place] [address] Dr. Karen Marie RBC 4.58 106/ul Critically low 4.70-6.10 [facility] Comment on above: Performed By: #### C BC #### [facility] [address] [place] [address] Dr. Karen Marie WBC 6.8 103/ul Normal 4.0-11.0 [facility] Comment on above: Performed By: #### C BC #### [facility] [address] [place] [address] Dr. Karen Marie PROF CHEM 8 (BAS METB)on Anion gap [Moles/Vol] 11.7 mmol/L Normal [facility] Comment on above: Performed By: #### B MP #### [facility] [address] [address] [address] Karen Marie Calcium [Mass/Vol] 9.3 mg/dL Normal 8.5-10.[address] [facility] Comment on above: Performed By: #### B MP #### [facility] [address] [address] [address] Karen Marie Chloride [Moles/Vol] 106 mmol/L Normal 98-107 [facility] Comment on above: Performed By: #### B MP #### [facility] [address] [address] [address] Karen Marie CO2 [Moles/Vol] 28.3 mmol/L Normal 21.0-32.[address] [facility] Comment on above: Performed By: #### B MP #### [facility] [address] [address] [address] Karen Marie Creatinine [Mass/Vol] 1.49 mg/dL Critically high 0.70-1.30 [facility] Comment on above: Performed By: #### B MP #### [facility] [address] [place] [address] Dr. Karen Marie EGFR-AF [facility] 56 mL/min/1.73m2 Critically low >=60 [facility] Comment on above: Performed By: #### B MP #### [facility] [address] [address] [address] Karen Marie EGFR-NON AF [facility] 46 mL/min/1.73m2 Critically low >=60 [facility] Comment on above: Performed By: #### B MP #### [facility] [address] [address] [address] Karen Marie Glucose [Mass/Vol] 101 mg/dL Normal 74-106 [facility] Comment on above: Performed By: #### B MP #### [facility] [address] [address] [address] Karen Marie Potassium [Moles/Vol] 5.0 mmol/L Normal 3.5-5.1 [facility] Comment on above: Performed By: #### B MP #### [facility] [address] [address] [address] Karen Marie Sodium [Moles/Vol] 141 mmol/L Normal 136-[address] [facility] Comment on above: Performed By: #### B MP #### [facility] [address] [address] [address] Karen Marie Urea nitrogen [Mass/Vol] 17.0 mg/dL Normal 7.0-18.0 [facility] Comment on above: Performed By: #### B MP #### [facility] [address] [address] [address] Karen Marie Urea nitrogen/Creatinine [Mass ratio] 11.4 mg/mg Normal [facility] Comment on above: Performed By: #### B MP #### [facility] [address] [address] [address] Karen Marie XR Foot Complete Left*on [...] by Wandy Lees on 10/17/2021 1252 Normal [facility] [employer] Progress Noteson 08-08-2021 Gas Analyst Authentication Interface Message Text Called pt Dec 6 as scheduled-no ans Called pt Dec 7-no ans Normal [facility] 06-04-2021 Gas Analyst Authentication Interface Message Text Normal [facility] Progress Noteson 06-03-2021 Gas Analyst Authentication Interface Message Text Patient at risk for falls:No Falls Risk protocol implemented: Yes wheelchair in locked position when not in use for transport Normal [facility] XR ANKLE LEFT 3 VIEWSon 10-0 XR ANKLE LEFT 3 VIEWS Normal [facility] Anesthesia Attestationon Gas Analyst Authentication Interface Message Text Normal [facility] Anesthesia Postprocedure Lucretia luationon 05-21-2021 Gas Analyst Authentication Interface Message Text Normal [facility] Anesthesia Preprocedure Eval uationon 05-21-2021 Gas Analyst Authentication Interface Message Text Normal [facility] Anesthesia Transfer Of Careo n 05-21-2021 Gas Analyst Authentication Interface Message Text Normal [facility] H AND Martin 05-21-2021 Gas Analyst Authentication Interface Message Text Normal [facility] OP Noteon 05-21-2021 Gas Analyst Authentication Interface Message Text Normal [facility] Procedureson 05-21-2021 Gas Analyst Authentication Interface Message Text Preop dx: L ankle fx Postop dx: same Proc; Removal pins L ankle ([id number]) Removal LLE ex fix () Comp:none Plan NWB LLE, rest, elevation RTC Jun 03 Normal [facility] Progress Noteson 04-29-2021 Gas Analyst Authentication Interface Message Text Patient was identified by name and date of . Mayra Trujillo Applied short leg cast and discussed cast care with patient. Normal [facility] Gas Analyst Authentication Interface Message Text Patient was identified by name and date of . Amy Gonzalez RN Patient at risk for falls:yes Falls Risk protocol implemented: Yes wheelchair in locked position when not in use for transport Normal [facility] Gas Analyst Authentication Interface Message Text Normal [facility] XR ANKLE LEFT 3 VIEWSon 08-3 XR ANKLE LEFT 3 VIEWS Normal [facility] Complete Blood Count Auto Di ffon 04-18-2021 Basophils (Bld) [#/Vol] 0.0 10*3/uL Normal 0.0-0.2 [facility] Comment on above: Order Comment: CAMDEN Souza FAX TO Result Comment: PERF ORMED BY: [facility] [place] [address] PATHOLOGIST DIRECTOR [employer] DAKOTAH SMITH M.D. Performed By: #### C MP, CBC #### [address] Basophils/100 WBC (Bld) 0.5 % Normal . [facility] Comment on above: Order Comment: PLEAS E FAX TO Performed By: #### C MP, CBC #### [address] Eosinophils (Bld) [#/Vol] 0.2 10*3/uL Normal 0.0-0.45 [facility] Comment on above: Order Comment: PLEAS E FAX TO Performed By: #### C MP, CBC #### [address] Eosinophils/100 WBC (Bld) 3.4 % Normal . [facility] Comment on above: Order Comment: PLEAS E FAX TO Performed By: #### C MP, CBC #### [address] Erythrocyte distribution width (RBC) [Ratio] 15.5 % High 12.0-14.8 [facility] Comment on above: Order Comment: PLEAS E FAX TO Performed By: #### C MP, CBC #### [address] Hematocrit (Bld) [Volume fraction] 36.7 % Low 38.8-50.0 [facility] Comment on above: Order Comment: PLEAS E FAX TO Performed By: #### C MP, CBC #### [address] Hemoglobin (Bld) [Mass/Vol] 12.0 g/dL Low 13.0-17.0 [facility] Comment on above: Order Comment: PLEAS E FAX TO Performed By: #### C MP, CBC #### [address] Lymphocytes (Bld) [#/Vol] 1.8 10*3/uL Normal 1.00-4.8 [facility] Comment on above: Order Comment: PLEAS E FAX TO Performed By: #### C MP, CBC #### [address] Lymphocytes/100 WBC (Bld) 35.6 % Normal . [facility] Comment on above: Order Comment: PLEAS E FAX TO Performed By: #### C MP, CBC #### [address] MCH (RBC) [Entitic mass] 30.5 pg Normal 27.5-35.2 [facility] Comment on above: Order Comment: PLEAS E FAX TO Performed By: #### C MP, CBC #### [address] MCV (RBC) [Entitic vol] 93.1 fL Normal 83.5-101 [facility] Comment on above: Order Comment: PLEAS E FAX TO Performed By: #### C MP, CBC #### [address] Mean Corpuscular HGB Conc 32.7 g/dL Normal 32.5-35.6 [facility] Comment on above: Order Comment: PLEAS E FAX TO Performed By: #### C MP, CBC #### [place] [address] [place] Monocytes (Bld) [#/Vol] 0.7 10*3/uL Normal 0.0-0.8 [facility] Comment on above: Order Comment: PLEAS E FAX TO Performed By: #### C MP, CBC #### [place] [address] [place] Monocytes/100 WBC (Bld) 14.1 % Normal . [facility] Comment on above: Order Comment: PLEAS E FAX TO Performed By: #### C MP, CBC #### [facility] [address] Neutrophils (Bld) [#/Vol] 2.3 10*3/uL Normal 1.8-7.7 [facility] Comment on above: Order Comment: PLEAS E FAX TO Performed By: #### C MP, CBC #### [facility] [address] Neutrophils/100 WBC (Bld) 46.4 % Normal . [facility] Comment on above: Order Comment: PLEAS E FAX TO Performed By: #### C MP, CBC #### [facility] [address] [place] [address] [place] Nucleated RBC/100 WBC (Bld) [Ratio] 0.2 % Normal 0-0.5 [facility] Comment on above: Order Comment: PLEAS E FAX TO Performed By: #### C MP, CBC #### [facility] [address] [place] [address] Platelet mean volume (Bld) [Entitic vol] 10.0 fL Normal 6.6-10.1 [facility] Comment on above: Order Comment: PLEAS E FAX TO Performed By: #### C MP, CBC #### [facility] [address] [place] [address] [place] Platelets (Bld) [#/Vol] 137 10*3/uL Low 150-450 [facility] Comment on above: Order Comment: PLEAS E FAX TO Performed By: #### C MP, CBC #### [facility] [address] [place] [address] [place] RBC (Bld) [#/Vol] 3.95 10*6/uL Normal 3.90-5.60 [facility] Comment on above: Order Comment: PLEAS E FAX TO Performed By: #### C MP, CBC #### [facility] [address] [place] [address] WBC (Bld) [#/Vol] 5.0 10*3/uL Normal 4.5-11.0 [facility] Comment on above: Order Comment: PLEAS E FAX TO Performed By: #### C MP, CBC #### [facility] [address] [place] [address] Comprehensive Metabolic Pane navin 04-18-2021 Albumin [Mass/Vol] 2.9 g/dL Low 3.2-5.5 [facility] Comment on above: Order Comment: PLEAS E FAX TO Performed By: #### C MP, CBC #### [facility] [address] [place] [address] Albumin/Globulin [Mass ratio] 1.2 {ratio} Normal [facility] Comment on above: Order Comment: PLEAS E FAX TO Performed By: #### C MP, CBC #### [address] ALP [Catalytic activity/Vol] 50 U/L Normal 32-92 [facility] Comment on above: Order Comment: PLEAS E FAX TO Result Comment: PERF ORMED BY: [place] [address] PATHOLOGIST DIRECTOR [employer] DAKOTAH SMITH M.D. Performed By: #### C MP, CBC #### [facility] [address] [place] [address] ALT [Catalytic activity/Vol] 12 U/L Normal 10-60 [facility] Comment on above: Order Comment: PLEAS E FAX TO Performed By: #### C MP, CBC #### [place] [id number] [facility] AST [Catalytic activity/Vol] 14 U/L Normal 10-42 [facility] Comment on above: Order Comment: PLEAS E FAX TO Performed By: #### C MP, CBC #### [facility] [address] [place] [id number] [facility] Bilirubin [Mass/Vol] 0.3 mg/dL Normal 0.3-1.2 [facility] Comment on above: Order Comment: PLEAS E FAX TO Performed By: #### C MP, CBC #### [facility] [address] Calcium [Mass/Vol] 8.8 mg/dL Normal 8.2-10.2 [facility] Comment on above: Order Comment: PLEAS E FAX TO Performed By: #### C MP, CBC #### [facility] [address] Chloride [Moles/Vol] 105 mmol/L Normal 95-114 [facility] Comment on above: Order Comment: PLEAS E FAX TO Performed By: #### C MP, CBC #### [facility] [address] [place] [id number] [facility] CO2 [Moles/Vol] 24.5 mmol/L Normal 22.0-30.0 [facility] Comment on above: Order Comment: PLEAS E FAX TO Performed By: #### C MP, CBC #### [facility] [address] [place] [id number] [place] Creatinine [Mass/Vol] 1.13 mg/dL Normal 0.64-1.27 [facility] Comment on above: Order Comment: PLEAS E FAX TO Performed By: #### C MP, CBC #### [facility] [address] [place] [id number] [place] Estimated GFR ( Mary Jo > 60 Normal [facility] Comment on above: Order Comment: PLEAS E FAX TO Result Comment: GFR estimated reference range: According to KDOQI guidelines, <60 ml/min/1.73m2 is sufficient to diagnose a patient with chronic kidney disease. Performed By: #### C MP, CBC #### [address] Estimated GFR (Non- Am > 60 Normal [facility] Comment on above: Order Comment: PLEAS E FAX TO Performed By: #### C MP, CBC #### [address] Globulin (S) [Mass/Vol] 2.5 g/dL [facility] Comment on above: Order Comment: PLEAS E FAX TO Performed By: #### C MP, CBC #### [address] Glucose [Mass/Vol] 108 mg/dL High 70-100 [facility] Comment on above: Order Comment: PLEAS E FAX TO Result Comment: Mchenry om Glucose Reference Range is dependent on time and content of last meal. Glucose of more than 200 mg/dL in a nonstressed, ambulatory subject supports the diagnosis of Diabetes Mellitus. ADA recommended reference range Performed By: #### C MP, CBC #### [address] Potassium [Moles/Vol] 3.8 mmol/L Normal 3.5-5.1 [facility] Comment on above: Order Comment: PLEAS E FAX TO Performed By: #### C MP, CBC #### [place] [address] [place] Protein [Mass/Vol] 5.4 g/dL Low 6.1-7.9 [facility] Comment on above: Order Comment: PLEAS E FAX TO Performed By: #### C MP, CBC #### [place] [address] [place] Sodium [Moles/Vol] 138 mmol/L Normal 136-146 [facility] Comment on above: Order Comment: PLEAS E FAX TO Performed By: #### C MP, CBC #### [facility] [address] Urea nitrogen [Mass/Vol] 16 mg/dL Normal 9-23 [facility] Comment on above: Order Comment: PLEAS E FAX TO Performed By: #### C MP, CBC #### [facility] [address] Progress Noteson 04-02-2021 Gas Analyst Authentication Interface Message Text Normal [facility] Progress Noteson 04-01-2021 Gas Analyst Authentication Interface Message Text Patient was identified by name and date of . Lennice Hampton Short leg cast applied. Pins care and extra gauze applied. Care and instructions provided. Normal [facility] Gas Analyst Authentication Interface Message Text Patient at risk for falls:Yes Falls Risk protocol implemented: Yes wheelchair in locked position when not in use for transport Normal [facility] Patient Instructionson 03-18 Gas Analyst Authentication Interface Message Text Normal [facility] Progress Noteson 03-18-2021 Gas Analyst Authentication Interface Message Text Normal [facility] Gas Analyst Authentication Interface Message Text Patient was identified by name and date of . Rehab Zoqash .Patient at risk for falls:No Falls Risk protocol implemented: No Normal [facility] Progress Noteson 03-12-2021 Gas Analyst Authentication Interface Message Text Normal [facility] Progress Noteson 03-11-2021 Gas Analyst Authentication Interface Message Text Patient was identified by name and date of . Lennice Hampton Suture removal. Short leg cast applied to LLE over fixator pins. Care and instructions provided. Normal [facility] Telephone Encounteron 2020 Gas Analyst Authentication Interface Message Text Normal [facility] BASIC METABOLIC PANELon 07-0 Anion gap [Moles/Vol] 13 mmol/L Normal - [facility] Comment on above: Performed By: #### C H8 ####[facility] [id number] [place], [place], Calcium [Mass/Vol] 8.9 mg/dL Normal 8.4-10.4 [facility] Comment on above: Performed By: #### C H8 ####[facility] [id number] [place], [place], Chloride [Moles/Vol] 104 mmol/L Normal 97-111 [facility] Comment on above: Performed By: #### Austyn H8 ####[facility] [id number] [place] [address], CO2 [Moles/Vol] 25 mmol/L Normal 21-30 [facility] Comment on above: Performed By: #### Austyn H8 ####[facility] [id number] [place] [address], Creatinine [Mass/Vol] 0.99 mg/dL Normal 0.80-1.30 [facility] Comment on above: Performed By: #### Austyn H8 ####[facility] [id number] [place] [address], ESTIMATED GFR (CKD-EPI) 75 mL/min/1.73sqm Normal >=60 [facility] Comment on above: Performed By: #### Austyn H8 ####[facility] [id number] [place], [place], Glucose [Mass/Vol] 101 mg/dL Normal 80-116 [facility] Comment on above: Performed By: #### Austyn H8 ####[facility] [id number] [place] [address], Potassium [Moles/Vol] 4.1 mmol/L Normal 3.3-5.3 [facility] Comment on above: Performed By: #### Austyn H8 ####S PATHOLOGY [id number] [place] [address], Sodium [Moles/Vol] 138 mmol/L Normal 135-148 [facility] Comment on above: Performed By: #### Austyn H8 ####S PATHOLOGY [id number] [place] [address], Urea nitrogen [Mass/Vol] 19 mg/dL Normal 8-22 [facility] Comment on above: Performed By: #### C H8 ####[facility] [id number] [place], [place], Care Plan Noteon 02-28-2021 Gas Analyst Authentication Interface Message Text Normal [facility] DIGOXINon 02-28-2021 DIG 0.78 ng/mL Low 0.80-2.00 [facility] Comment on above: Performed By: #### D IG ####[facility] [id number] [place], [place], Discharge Planning Noteon Gas Analyst Authentication Interface Message Text Normal [facility] Progress Noteson 02-28-2021 Gas Analyst Authentication Interface Message Text Report called to next facility to [facility]. Phone number provided to outside facility for any further questions. Reporting off to next shift. Normal [facility] Gas Analyst Authentication Interface Message Text Normal [facility] BASIC METABOLIC PANELon 06 Anion gap [Moles/Vol] 13 mmol/L Normal 5-13 [facility] Comment on above: Performed By: #### C H8, MG ####[facility] [id number] [place], [place], Calcium [Mass/Vol] 8.8 mg/dL Normal 8.4-10.4 [facility] Comment on above: Performed By: #### C H8, MG ####[facility] [id number] [place], [place], Chloride [Moles/Vol] 104 mmol/L Normal 97-111 [facility] Comment on above: Performed By: #### C H8, MG ####[facility] [id number] [place], [place], CO2 [Moles/Vol] 25 mmol/L Normal 21-30 [facility] Comment on above: Performed By: #### C H8, MG ####[facility] [id number] [place], [place], Creatinine [Mass/Vol] 1.00 mg/dL Normal 0.80-1.30 [facility] Comment on above: Performed By: #### C H8, MG ####[facility] [id number] [place], [place], ESTIMATED GFR (CKD-EPI) 74 mL/min/1.73sqm Normal >=60 [facility] Comment on above: Performed By: #### C H8, MG ####[facility] [id number] [place], [place], Glucose [Mass/Vol] 108 mg/dL Normal 80-116 [facility] Comment on above: Performed By: #### C H8, MG ####[facility] [id number] [place], [place], Potassium [Moles/Vol] 4.3 mmol/L Normal 3.3-5.3 [facility] Comment on above: Performed By: #### C H8, MG ####[facility] [id number] [place], Sodium [Moles/Vol] 138 mmol/L Normal 135-148 [facility] Comment on above: Performed By: #### C H8, MG ####[facility] [id number] [place], Urea nitrogen [Mass/Vol] 20 mg/dL Normal 8-22 [facility] Comment on above: Performed By: #### C H8, MG ####[facility] [id number] [place], COMPLETE BLOOD COUNTon 02-27 Erythrocyte distribution width (RBC) [Ratio] 15.1 % High 11.5-14.5 [facility] Comment on above: Performed By: #### C BC ####[facility] [id number] [place], Hematocrit (Bld) [Volume fraction] 30.9 % Low 41.0-53.0 [facility] Comment on above: Performed By: #### C BC ####[facility] [id number] [place], Hemoglobin (Bld) [Mass/Vol] 10.3 g/dL Low 13.9-16.3 [facility] Comment on above: Performed By: #### C BC ####S PATHOLOGY [id number] [place], MCH (RBC) [Entitic mass] 31.8 pg Normal 26.0-34.0 [facility] Comment on above: Performed By: #### C BC ####[facility] PATHOLOGY [id number] [place], MCHC (RBC) [Mass/Vol] 33.3 g/dL Normal 32.0-35.9 [facility] Comment on above: Performed By: #### C BC ####[facility] PATHOLOGY [id number] [place], MCV (RBC) [Entitic vol] 95 fL Normal 80-100 [facility] Comment on above: Performed By: #### C BC ####[facility] PATHOLOGY [id number] [place], Platelet mean volume (Bld) [Entitic vol] 10.2 fL Normal 7.5-11.2 [facility] Comment on above: Performed By: #### C BC ####[facility] PATHOLOGY [id number] [place], Platelets (Bld) [#/Vol] 209 10*3/uL Normal 150-400 [facility] Comment on above: Performed By: #### C BC ####[facility] PATHOLOGY [id number] [place], RBC (Bld) [#/Vol] 3.24 10*6/uL Low 4.50-5.90 [facility] Comment on above: Performed By: #### C BC ####S PATHOLOGY [id number] [place], WBC (Bld) [#/Vol] 5.2 10*3/uL Normal 4.5-11.5 [facility] Comment on above: Performed By: #### C BC ####S PATHOLOGY [id number] [place], Care Plan Noteon 02-27-2021 [employer] Analyst Authentication Interface Message Text Normal [facility] Consultson 02-27-2021 Gas Analyst Authentication Interface Message Text Normal [facility] Gas Analyst Authentication Interface Message Text Normal [facility] MAGNESIUMon 02-27-2021 Magnesium [Mass/Vol] 2.3 mg/dL Normal 1.6-2.8 [facility] Comment on above: Performed By: #### C H8, MG ####S PATHOLOGY [id number] [place], [place], Progress Noteson 02-27-2021 Gas Analyst Authentication Interface Message Text Normal [facility] Gas Analyst Authentication Interface Message Text Normal [facility] [employer] Analyst Authentication Interface Message Text Normal [facility] BASIC METABOLIC PANELon 01-30 Anion gap [Moles/Vol] 14 mmol/L High 5-13 [facility] Comment on above: Performed By: #### Rajiv Roque, CH8 ####S PATHOLOGY [id number] [place], Calcium [Mass/Vol] 9.0 mg/dL Normal 8.4-10.4 [facility] Comment on above: Performed By: #### Rajiv Roque, CH8 ####S PATHOLOGY [id number] [place], Chloride [Moles/Vol] 103 mmol/L Normal 97-111 [facility] Comment on above: Performed By: #### Rajiv Roque, CH8 ####S PATHOLOGY [id number] [place], CO2 [Moles/Vol] 24 mmol/L Normal 21-30 [facility] Comment on above: Performed By: #### Rajiv Roque, CH8 ####S PATHOLOGY [id number] [place], Creatinine [Mass/Vol] 1.00 mg/dL Normal 0.80-1.30 [facility] Comment on above: Performed By: #### Rajiv Roque, CH8 ####S PATHOLOGY [id number] [place], ESTIMATED GFR (CKD-EPI) 74 mL/min/1.73sqm Normal >=60 [facility] Comment on above: Performed By: #### Rajiv Roque, CH8 ####S PATHOLOGY [id number] [place], Glucose [Mass/Vol] 103 mg/dL Normal 80-116 [facility] Comment on above: Performed By: #### Rajiv Roque, ALESHA8 ####S PATHOLOGY [id number] [place], Potassium [Moles/Vol] 4.3 mmol/L Normal 3.3-5.3 [facility] Comment on above: Performed By: #### Rajiv Roque, ALESHA8 ####S PATHOLOGY [id number] [place], Sodium [Moles/Vol] 137 mmol/L Normal 135-148 [facility] Comment on above: Performed By: #### Rajiv Roque, ALESHA8 ####S PATHOLOGY [id number] [place], Urea nitrogen [Mass/Vol] 17 mg/dL Normal 8-22 [facility] Comment on above: Performed By: #### Rajiv Roque, ALESHA8 ####[facility] PATHOLOGY [id number] [place], COMPLETE BLOOD COUNTon 02-26 Erythrocyte distribution width (RBC) [Ratio] 14.6 % High 11.5-14.5 [facility] Comment on above: Performed By: #### C BC ####S PATHOLOGY [id number] [place], Hematocrit (Bld) [Volume fraction] 30.7 % Low 41.0-53.0 [facility] Comment on above: Performed By: #### C BC ####S PATHOLOGY [id number] [place], Hemoglobin (Bld) [Mass/Vol] 10.5 g/dL Low 13.9-16.[address] [facility] Comment on above: Performed By: #### C BC ####S PATHOLOGY [id number] [place], MCH (RBC) [Entitic mass] 31.7 pg Normal 26.0-34.0 [facility] Comment on above: Performed By: #### C BC ####S PATHOLOGY [id number] [place], MCHC (RBC) [Mass/Vol] 34.1 g/dL Normal 32.0-35.9 [facility] Comment on above: Performed By: #### C BC ####S PATHOLOGY [id number] [place], MCV (RBC) [Entitic vol] 93 fL Normal 80-100 [facility] Comment on above: Performed By: #### C BC ####S PATHOLOGY [id number] [place], Platelet mean volume (Bld) [Entitic vol] 10.3 fL Normal 7.5-11.2 [facility] Comment on above: Performed By: #### C BC ####S PATHOLOGY [id number] [place], Platelets (Bld) [#/Vol] 205 10*3/uL Normal 150-400 [facility] Comment on above: Performed By: #### C BC ####S PATHOLOGY [id number] [place], RBC (Bld) [#/Vol] 3.30 10*6/uL Low 4.50-5.90 [facility] Comment on above: Performed By: #### C BC ####S PATHOLOGY [id number] [place], WBC (Bld) [#/Vol] 5.3 10*3/uL Normal 4.5-11.5 [facility] Comment on above: Performed By: #### C BC ####[facility] [id number] [place], Care Plan Noteon 02-26-2021 Gas Analyst Authentication Interface Message Text Normal [facility] Consultson 02-26-2021 Gas Analyst Authentication Interface Message Text Normal [facility] Gas Analyst Authentication Interface Message Text Normal [facility] MAGNESIUMon 02-26-2021 Magnesium [Mass/Vol] 2.2 mg/dL Normal 1.6-2.8 [facility] Comment on above: Performed By: #### Rajiv Roque, CH8 ####S PATHOLOGY [id number] [place], Progress Noteson 02-26-2021 Gas Analyst Authentication Interface Message Text Normal [facility] Gas Analyst Authentication Interface Message Text Normal [facility] Gas Analyst Authentication Interface Message Text Normal [facility] Gas Analyst Authentication Interface Message Text Normal [facility] BASIC METABOLIC PANELon 01-30 Anion gap [Moles/Vol] 15 mmol/L High 5-13 [facility] Comment on above: Performed By: #### Rajiv Roque, ALESHA8 ####[facility] PATHOLOGY [id number] [place], Calcium [Mass/Vol] 9.7 mg/dL Normal 8.4-10.4 [facility] Comment on above: Performed By: #### Rajiv Roque, ALESHA8 ####[facility] PATHOLOGY [id number] [place], Chloride [Moles/Vol] 112 mmol/L High 97-111 [facility] Comment on above: Performed By: #### Rajiv Roque, ALESHA8 ####[facility] PATHOLOGY [id number] [place], CO2 [Moles/Vol] 27 mmol/L Normal 21-30 [facility] Comment on above: Performed By: #### Rajiv Roque, ALESHA8 ####S PATHOLOGY [id number] [place], Creatinine [Mass/Vol] 0.96 mg/dL Normal 0.80-1.30 [facility] Comment on above: Performed By: #### Rajiv Roque, CH8 ####S PATHOLOGY [id number] [place], ESTIMATED GFR (CKD-EPI) 78 mL/min/1.73sqm Normal >=60 [facility] Comment on above: Performed By: #### Rajiv Roque, ALESHA8 ####S PATHOLOGY [id number] [place], Glucose [Mass/Vol] 113 mg/dL Normal 80-116 [facility] Comment on above: Performed By: #### Rajiv Roque, CH8 ####[facility] PATHOLOGY [id number] [place], Potassium [Moles/Vol] 4.9 mmol/L Normal 3.3-5.3 [facility] Comment on above: Performed By: #### Rajiv Roque, CH8 ####[facility] PATHOLOGY [id number] [place], Sodium [Moles/Vol] 149 mmol/L High 135-148 [facility] Comment on above: Performed By: #### Rajiv Roque, CH8 ####[facility] PATHOLOGY [id number] [place], Urea nitrogen [Mass/Vol] 16 mg/dL Normal 8-22 [facility] Comment on above: Performed By: #### Rajiv Roque, CH8 ####[facility] PATHOLOGY [id number] [place] [address], COMPLETE BLOOD COUNTon 02-25 Erythrocyte distribution width (RBC) [Ratio] 14.5 % Normal 11.5-14.5 [facility] Comment on above: Performed By: #### C BC ####[facility] PATHOLOGY [id number] [place] [address], Hematocrit (Bld) [Volume fraction] 29.6 % Low 41.0-53.0 [facility] Comment on above: Performed By: #### C BC ####[facility] PATHOLOGY [id number] [place] [address], Hemoglobin (Bld) [Mass/Vol] 9.9 g/dL Low 13.9-16.3 [facility] Comment on above: Performed By: #### C BC ####[facility] PATHOLOGY [id number] [place] [address], MCH (RBC) [Entitic mass] 31.2 pg Normal 26.0-34.0 [facility] Comment on above: Performed By: #### C BC ####[facility] PATHOLOGY [id number] [place] [address], MCHC (RBC) [Mass/Vol] 33.6 g/dL Normal 32.0-35.9 [facility] Comment on above: Performed By: #### C BC ####S PATHOLOGY [id number] [place], MCV (RBC) [Entitic vol] 93 fL Normal 80-100 [facility] Comment on above: Performed By: #### C BC ####S PATHOLOGY [id number] [place], Platelet mean volume (Bld) [Entitic vol] 9.8 fL Normal 7.5-11.2 [facility] Comment on above: Performed By: #### C BC ####[facility] PATHOLOGY [id number] [place], Platelets (Bld) [#/Vol] 207 10*3/uL Normal 150-400 [facility] Comment on above: Performed By: #### C BC ####[facility] PATHOLOGY [id number] [place], RBC (Bld) [#/Vol] 3.19 10*6/uL Low 4.50-5.90 [facility] Comment on above: Performed By: #### C BC ####[facility] PATHOLOGY [id number] [place], WBC (Bld) [#/Vol] 5.6 10*3/uL Normal 4.5-11.5 [facility] Comment on above: Performed By: #### C BC ####[facility] PATHOLOGY [id number] [place], Care Plan Noteon 02-25-2021 Gas Analyst Authentication Interface Message Text Normal [facility] Consultson 02-25-2021 Gas Analyst Authentication Interface Message Text Normal [facility] Gas Analyst Authentication Interface Message Text Normal [facility] MAGNESIUMon 02-25-2021 Magnesium [Mass/Vol] 2.1 mg/dL Normal 1.6-2.8 [facility] Comment on above: Performed By: #### M Mya, CH8 ####S PATHOLOGY [id number] [place], Nursing Noteon 02-25-2021 Gas Analyst Authentication Interface Message Text Normal [facility] Progress Noteson 02-25-2021 Gas Analyst Authentication Interface Message Text Normal [facility] Gas Analyst Authentication Interface Message Text Normal [facility] BASIC METABOLIC PANELon 06- Anion gap [Moles/Vol] 14 mmol/L High 5-13 [facility] Comment on above: Performed By: #### Austyn H8, MG ####[facility] [id number] [place], Calcium [Mass/Vol] 9.0 mg/dL Normal 8.4-10.4 [facility] Comment on above: Performed By: #### Austyn Saleh8, MG ####[facility] [id number] [place], Chloride [Moles/Vol] 102 mmol/L Normal 97-111 [facility] Comment on above: Performed By: #### Austyn H8, MG ####[facility] [id number] [place], CO2 [Moles/Vol] 23 mmol/L Normal 21-30 [facility] Comment on above: Performed By: #### Austyn H8, MG ####[facility] [id number] [place], Creatinine [Mass/Vol] 0.94 mg/dL Normal 0.80-1.30 [facility] Comment on above: Performed By: #### Austyn H8, MG ####[facility] [id number] [place], ESTIMATED GFR (CKD-EPI) 80 mL/min/1.73sqm Normal >=60 [facility] Comment on above: Performed By: #### Austyn H8, MG ####[facility] [id number] [place], Glucose [Mass/Vol] 108 mg/dL Normal 80-116 [facility] Comment on above: Performed By: #### C H8, MG ####[facility] [id number] [place], Potassium [Moles/Vol] 4.3 mmol/L Normal 3.3-5.3 [facility] Comment on above: Performed By: #### C H8, MG ####[facility] PATHOLOGY [id number] [place], Sodium [Moles/Vol] 135 mmol/L Normal 135-148 [facility] Comment on above: Performed By: #### C H8, MG ####[facility] PATHOLOGY [id number] [place], Urea nitrogen [Mass/Vol] 15 mg/dL Normal 8-22 [facility] Comment on above: Performed By: #### C H8, MG ####[facility] PATHOLOGY [id number] [place] [address], COMPLETE BLOOD COUNTon 02-24 Erythrocyte distribution width (RBC) [Ratio] 14.9 % High 11.5-14.5 [facility] Comment on above: Performed By: #### C BC ####[facility] PATHOLOGY [id number] [place] [address], Hematocrit (Bld) [Volume fraction] 28.2 % Low 41.0-53.0 [facility] Comment on above: Performed By: #### C BC ####[facility] PATHOLOGY [id number] [place] [address], Hemoglobin (Bld) [Mass/Vol] 9.8 g/dL Low 13.9-16.3 [facility] Comment on above: Performed By: #### C BC ####[facility] PATHOLOGY [id number] [place], MCH (RBC) [Entitic mass] 33.0 pg Normal 26.0-34.0 [facility] Comment on above: Performed By: #### C BC ####[facility] PATHOLOGY [id number] [place] [address], MCHC (RBC) [Mass/Vol] 34.7 g/dL Normal 32.0-35.9 [facility] Comment on above: Performed By: #### C BC ####[facility] PATHOLOGY [id number] [place] [address], MCV (RBC) [Entitic vol] 95 fL Normal 80-100 [facility] Comment on above: Performed By: #### C BC ####[facility] PATHOLOGY [id number] [place], Platelet mean volume (Bld) [Entitic vol] 10.1 fL Normal 7.5-11.2 [facility] Comment on above: Performed By: #### C BC ####[facility] PATHOLOGY [id number] [place], Platelets (Bld) [#/Vol] 206 10*3/uL Normal 150-400 [facility] Comment on above: Performed By: #### C BC ####[facility] PATHOLOGY [id number] [place] [address], RBC (Bld) [#/Vol] 2.96 10*6/uL Low 4.50-5.90 [facility] Comment on above: Performed By: #### C BC ####[facility] PATHOLOGY [id number] [place] [address], WBC (Bld) [#/Vol] 5.8 10*3/uL Normal 4.5-11.5 [facility] Comment on above: Performed By: #### C BC ####[facility] PATHOLOGY [id number] [place], Care Plan Noteon 02-24-2021 Gas Analyst Authentication Interface Message Text Normal [facility] MAGNESIUMon 02-24-2021 Magnesium [Mass/Vol] 1.9 mg/dL Normal 1.6-2.8 [facility] Comment on above: Performed By: #### C H8, MG ####[facility] PATHOLOGY [id number] [place], Progress Noteson 02-24-2021 Gas Analyst Authentication Interface Message Text Normal [facility] BASIC METABOLIC PANELon 01-30 Anion gap [Moles/Vol] 15 mmol/L High 5-13 [facility] Comment on above: Performed By: #### M G, CH8 ####[facility] PATHOLOGY [id number] [place], Calcium [Mass/Vol] 8.9 mg/dL Normal 8.4-10.4 [facility] Comment on above: Performed By: ###Sabrina Roque, ALESHA8 ####S PATHOLOGY [id number] [place], Chloride [Moles/Vol] 105 mmol/L Normal 97-111 [facility] Comment on above: Performed By: #### Rajiv Roque, ALESHA8 ####S PATHOLOGY LTOIOHGCJZ6999 [place], CO2 [Moles/Vol] 22 mmol/L Normal 21-30 [facility] Comment on above: Performed By: #### Rajiv Roque, ALESHA8 ####[facility] PATHOLOGY [id number] [place] [address], Creatinine [Mass/Vol] 0.87 mg/dL Normal 0.80-1.30 [facility] Comment on above: Performed By: ###Sabrina Roque, ALESHA8 ####[facility] PATHOLOGY [id number] [place] [address], ESTIMATED GFR (CKD-EPI) 85 mL/min/1.73sqm Normal >=60 [facility] Comment on above: Performed By: ###Sabrina Roque, ALESHA8 ####[facility] PATHOLOGY [id number] [place] [address], Glucose [Mass/Vol] 103 mg/dL Normal 80-116 [facility] Comment on above: Performed By: ###Sabrina Rouqe, ALESHA8 ####[facility] PATHOLOGY [id number] [place], Potassium [Moles/Vol] 4.6 mmol/L Normal 3.3-5.3 [facility] Comment on above: Performed By: ###Sabrina Roque, ALESHA8 ####S PATHOLOGY [id number] [place] [address], Sodium [Moles/Vol] 137 mmol/L Normal 135-148 [facility] Comment on above: Performed By: #### Rajiv Roque, ALESHA8 ####S PATHOLOGY [id number] [place], Urea nitrogen [Mass/Vol] 20 mg/dL Normal 8-22 [facility] Comment on above: Performed By: #### Rajiv Roque CH8 ####[facility] PATHOLOGY [id number] [place] [address], COMPLETE BLOOD COUNTon 02-23 Erythrocyte distribution width (RBC) [Ratio] 15.1 % High 11.5-14.5 [facility] Comment on above: Performed By: #### C BC ####[facility] PATHOLOGY [id number] [place] [address], Hematocrit (Bld) [Volume fraction] 29.0 % Low 41.0-53.0 [facility] Comment on above: Performed By: #### C BC ####[facility] PATHOLOGY [id number] [place] [address], Hemoglobin (Bld) [Mass/Vol] 9.6 g/dL Low 13.9-16.3 [facility] Comment on above: Performed By: #### C BC ####[facility] PATHOLOGY [id number] [place] [address], MCH (RBC) [Entitic mass] 31.6 pg Normal 26.0-34.0 [facility] Comment on above: Performed By: #### C BC ####[facility] PATHOLOGY [id number] [place] [address], MCHC (RBC) [Mass/Vol] 33.1 g/dL Normal 32.0-35.9 [facility] Comment on above: Performed By: #### C BC ####[facility] PATHOLOGY [id number] [place] [address], MCV (RBC) [Entitic vol] 95 fL Normal 80-100 [facility] Comment on above: Performed By: #### C BC ####[facility] PATHOLOGY [id number] [place] [address], Platelet mean volume (Bld) [Entitic vol] 10.4 fL Normal 7.5-11.2 [facility] Comment on above: Performed By: #### C BC ####[facility] PATHOLOGY [id number] [place] [address], Platelets (Bld) [#/Vol] 212 10*3/uL Normal 150-400 [facility] Comment on above: Performed By: #### Austyn BC ####S PATHOLOGY [id number] [place], RBC (Bld) [#/Vol] 3.04 10*6/uL Low 4.50-5.90 [facility] Comment on above: Performed By: #### Austyn BC ####[facility] PATHOLOGY [id number] [place], WBC (Bld) [#/Vol] 6.8 10*3/uL Normal 4.5-11.5 [facility] Comment on above: Performed By: #### Austyn BC ####[facility] PATHOLOGY [id number] [place], Care Plan Noteon 02-23-2021 Gas Analyst Authentication Interface Message Text Normal [facility] MAGNESIUMon 02-23-2021 Magnesium [Mass/Vol] 2.0 mg/dL Normal 1.6-2.8 [facility] Comment on above: Performed By: #### Rajiv Roque, CH8 ####[facility] PATHOLOGY [id number] [place] [address], Progress Noteson 02-23-2021 Gas Analyst Authentication Interface Message Text Normal [facility] BASIC METABOLIC PANELon 01-30 Anion gap [Moles/Vol] 13 mmol/L Normal 5-13 [facility] Comment on above: Performed By: #### Austyn H8, MG ####[facility] PATHOLOGY [id number] [place], Calcium [Mass/Vol] 8.7 mg/dL Normal 8.4-10.4 [facility] Comment on above: Performed By: #### Austyn Saleh8, MG ####S PATHOLOGY [id number] [place], Chloride [Moles/Vol] 106 mmol/L Normal 97-111 [facility] Comment on above: Performed By: #### Austyn Saleh8, MG ####S PATHOLOGY [id number] [place] [address], CO2 [Moles/Vol] 22 mmol/L Normal 21-30 [facility] Comment on above: Performed By: #### Austyn Tamez, MG ####S PATHOLOGY [id number] [place] [address], Creatinine [Mass/Vol] 0.90 mg/dL Normal 0.80-1.30 [facility] Comment on above: Performed By: #### Austyn Tamez, MG ####[facility] PATHOLOGY [id number] [place] [address], ESTIMATED GFR (CKD-EPI) 84 mL/min/1.73sqm Normal >=60 [facility] Comment on above: Performed By: #### Austyn Tamez, MG ####[facility] PATHOLOGY [id number] [place] [address], Glucose [Mass/Vol] 97 mg/dL Normal 80-116 [facility] Comment on above: Performed By: #### Austyn Tamez, MG ####[facility] PATHOLOGY [id number] [place] [address], Potassium [Moles/Vol] 4.2 mmol/L Normal 3.3-5.3 [facility] Comment on above: Performed By: #### Austyn Tamez, MG ####[facility] PATHOLOGY [id number] [place] [address], Sodium [Moles/Vol] 137 mmol/L Normal 135-148 [facility] Comment on above: Performed By: #### Austyn Tamez, MG ####S PATHOLOGY [id number] [place] [address], Urea nitrogen [Mass/Vol] 17 mg/dL Normal 8-22 [facility] Comment on above: Performed By: #### Austyn Saleh8, MG ####S PATHOLOGY [id number] [place] [address], COMPLETE BLOOD COUNTon 02-22 Erythrocyte distribution width (RBC) [Ratio] 15.0 % High 11.5-14.5 [facility] Comment on above: Performed By: #### Austyn BC ####S PATHOLOGY [id number] [place] [address], [place], Hematocrit (Bld) [Volume fraction] 27.4 % Low 41.0-53.0 [facility] Comment on above: Performed By: #### C BC ####[facility] PATHOLOGY [id number] [place], [place], Hemoglobin (Bld) [Mass/Vol] 9.2 g/dL Low 13.9-16.3 [facility] Comment on above: Performed By: #### C BC ####[facility] PATHOLOGY [id number] [place] [address], MCH (RBC) [Entitic mass] 31.4 pg Normal 26.0-34.0 [facility] Comment on above: Performed By: #### C BC ####[facility] PATHOLOGY [id number] [place] [address], MCHC (RBC) [Mass/Vol] 33.6 g/dL Normal 32.0-35.9 [facility] Comment on above: Performed By: #### C BC ####[facility] PATHOLOGY [id number] [place] [address], MCV (RBC) [Entitic vol] 93 fL Normal 80-100 [facility] Comment on above: Performed By: #### C BC ####[facility] PATHOLOGY [id number] [place], [place], Platelet mean volume (Bld) [Entitic vol] 9.9 fL Normal 7.5-11.2 [facility] Comment on above: Performed By: #### C BC ####[facility] PATHOLOGY [id number] [place], [place], Platelets (Bld) [#/Vol] 204 10*3/uL Normal 150-400 [facility] Comment on above: Performed By: #### C BC ####[facility] PATHOLOGY [id number] [place], [place], RBC (Bld) [#/Vol] 2.94 10*6/uL Low 4.50-5.90 [facility] Comment on above: Performed By: #### C BC ####[facility] PATHOLOGY [id number] [place], [place], WBC (Bld) [#/Vol] 6.7 10*3/uL Normal 4.5-11.5 [facility] Comment on above: Performed By: #### C BC ####S PATHOLOGY [id number] [place], [place], Care Plan Noteon 02-22-2021 Gas Analyst Authentication Interface Message Text Normal [facility] Consultson 02-22-2021 Gas Analyst Authentication Interface Message Text Normal [facility] MAGNESIUMon 02-22-2021 Magnesium [Mass/Vol] 2.0 mg/dL Normal 1.6-2.8 [facility] Comment on above: Performed By: #### Austyn Tamez, MG ####[facility] [id number] [place], [place], Progress Noteson 02-22-2021 Gas Analyst Authentication Interface Message Text Normal [facility] Gas Analyst Authentication Interface Message Text Normal [facility] Gas Analyst Authentication Interface Message Text Normal [facility] BASIC METABOLIC PANELon 01-30 Anion gap [Moles/Vol] 13 mmol/L Normal 5-13 [facility] Comment on above: Performed By: #### Austyn Tamez, MG ####[facility] [id number] [place], [place], Calcium [Mass/Vol] 8.4 mg/dL Normal 8.4-10.4 [facility] Comment on above: Performed By: #### Austyn Tamez, MG ####[facility] [id number] [place], [place], Chloride [Moles/Vol] 107 mmol/L Normal 97-111 [facility] Comment on above: Performed By: #### Austyn HSajan, MG ####[facility] [id number] [place], [place], CO2 [Moles/Vol] 22 mmol/L Normal 21-30 [facility] Comment on above: Performed By: #### Austyn H8, MG ####[facility] [id number] [place], [place], Creatinine [Mass/Vol] 0.85 mg/dL Normal 0.80-1.30 [facility] Comment on above: Performed By: #### Austyn Saleh8, MG ####S PATHOLOGY [id number] [place], [place], ESTIMATED GFR (CKD-EPI) 86 mL/min/1.73sqm Normal >=60 [facility] Comment on above: Performed By: #### Austyn Saleh8, MG ####S PATHOLOGY [id number] [place], [place], Glucose [Mass/Vol] 107 mg/dL Normal 80-116 [facility] Comment on above: Performed By: #### Austyn Saleh8, MG ####S PATHOLOGY [id number] [place], [place], Potassium [Moles/Vol] 4.0 mmol/L Normal 3.3-5.3 [facility] Comment on above: Performed By: #### Austyn Tamez, MG ####S PATHOLOGY [id number] [place], [place], Sodium [Moles/Vol] 138 mmol/L Normal 135-148 [facility] Comment on above: Performed By: #### Austyn Saleh8, MG ####S PATHOLOGY [id number] [place] [address], Urea nitrogen [Mass/Vol] 16 mg/dL Normal 8-22 [facility] Comment on above: Performed By: #### Austyn H8, MG ####[facility] [id number] [place], [place], COMPLETE BLOOD COUNTon 02-21 Erythrocyte distribution width (RBC) [Ratio] 15.2 % High 11.5-14.5 [facility] Comment on above: Performed By: #### Austyn BC ####[facility] [id number] [place] [address], Hematocrit (Bld) [Volume fraction] 26.7 % Low 41.0-53.0 [facility] Comment on above: Performed By: #### Austyn BC ####[facility] [id number] [place], [place], Hemoglobin (Bld) [Mass/Vol] 9.2 g/dL Low 13.9-16.3 [facility] Comment on above: Performed By: #### C BC ####[facility] PATHOLOGY [id number] [place], [place], MCH (RBC) [Entitic mass] 32.3 pg Normal 26.0-34.0 [facility] Comment on above: Performed By: #### C BC ####[facility] PATHOLOGY TOPYLJZCTK3207 [place], [place], MCHC (RBC) [Mass/Vol] 34.2 g/dL Normal 32.0-35.9 [facility] Comment on above: Performed By: #### C BC ####[facility] PATHOLOGY [id number] [place], [place], MCV (RBC) [Entitic vol] 94 fL Normal 80-100 [facility] Comment on above: Performed By: #### C BC ####[facility] PATHOLOGY [id number] [place] [address], Platelet mean volume (Bld) [Entitic vol] 10.2 fL Normal 7.5-11.2 [facility] Comment on above: Performed By: #### C BC ####[facility] PATHOLOGY [id number] [place], [place], Platelets (Bld) [#/Vol] 204 10*3/uL Normal 150-400 [facility] Comment on above: Performed By: #### C BC ####[facility] PATHOLOGY [id number] [place], [place], RBC (Bld) [#/Vol] 2.83 10*6/uL Low 4.50-5.90 [facility] Comment on above: Performed By: #### C BC ####[facility] PATHOLOGY [id number] [place], WBC (Bld) [#/Vol] 7.8 10*3/uL Normal 4.5-11.5 [facility] Comment on above: Performed By: #### C BC ####[facility] PATHOLOGY [id number] [place], [place], Care Plan Noteon 02-21-2021 Gas Analyst Authentication Interface Message Text Normal [facility] Consultson 02-21-2021 Gas Analyst Authentication Interface Message Text Normal [facility] Gas Analyst Authentication Interface Message Text Normal [facility] Gas Analyst Authentication Interface Message Text Normal [facility] MAGNESIUMon 02-21-2021 Magnesium [Mass/Vol] 2.1 mg/dL Normal 1.6-2.8 [facility] Comment on above: Performed By: #### C H8, MG ####[facility] [id number] [place], [place], Progress Noteson 02-21-2021 Gas Analyst Authentication Interface Message Text Per Trauma, unclear when pt is ready for DC. Pt accepted to [facility]. Please alert SW when pt is nearing DC. Pt will require a precert. Amada Saul, [facility], [facility] [phone] Normal [facility] Gas Analyst Authentication Interface Message Text Normal [facility] Gas Analyst Authentication Interface Message Text Normal [facility] BASIC METABOLIC PANELon 01-30 Anion gap [Moles/Vol] 9 mmol/L Normal 5-13 [facility] Comment on above: Performed By: #### Rajiv Roque CH8 ####[facility] [id number] [place], [place], Calcium [Mass/Vol] 8.5 mg/dL Normal 8.4-10.4 [facility] Comment on above: Performed By: #### Rajiv Roque CH8 ####[facility] [id number] [place], [place], Chloride [Moles/Vol] 104 mmol/L Normal 97-111 [facility] Comment on above: Performed By: #### Rajiv Roque CH8 ####[facility] [id number] [place], CO2 [Moles/Vol] 24 mmol/L Normal 21-30 [facility] Comment on above: Performed By: #### Rajiv Roque CH8 ####[facility] [id number] [place], [place], Creatinine [Mass/Vol] 0.95 mg/dL Normal 0.80-1.30 [facility] Comment on above: Performed By: #### Rajiv Roque CH8 ####[facility] PATHOLOGY [id number] [place], ESTIMATED GFR (CKD-EPI) 79 mL/min/1.73sqm Normal >=60 [facility] Comment on above: Performed By: #### Rajiv Roque, ALESHA8 ####S PATHOLOGY [id number] [place], [place], Glucose [Mass/Vol] 112 mg/dL Normal 80-116 [facility] Comment on above: Performed By: #### Rajiv Roque CH8 ####[facility] PATHOLOGY [id number] [place], [place], Potassium [Moles/Vol] 4.3 mmol/L Normal 3.3-5.3 [facility] Comment on above: Performed By: #### Rajiv Roque, JENNIFER ####[facility] PATHOLOGY [id number] [place] [address], Sodium [Moles/Vol] 133 mmol/L Low 135-148 [facility] Comment on above: Performed By: #### Rajiv Roque CH8 ####[facility] PATHOLOGY [id number] [place] [address], Urea nitrogen [Mass/Vol] 16 mg/dL Normal 8-22 [facility] Comment on above: Performed By: #### Rajiv Roque CH8 ####[facility] PATHOLOGY [id number] [place], [place], COMPLETE BLOOD COUNTon 02-20 Erythrocyte distribution width (RBC) [Ratio] 14.9 % High 11.5-14.5 [facility] Comment on above: Performed By: #### Austyn BC ####S PATHOLOGY [id number] [place] [address], Hematocrit (Bld) [Volume fraction] 30.1 % Low 41.0-53.0 [facility] Comment on above: Performed By: #### Austyn BC ####S PATHOLOGY [id number] [place] [address], Hemoglobin (Bld) [Mass/Vol] 10.1 g/dL Low 13.9-16.3 [facility] Comment on above: Performed By: #### C BC ####[facility] PATHOLOGY [id number] [place], [place], MCH (RBC) [Entitic mass] 31.7 pg Normal 26.0-34.0 [facility] Comment on above: Performed By: #### C BC ####[facility] PATHOLOGY [id number] [place], MCHC (RBC) [Mass/Vol] 33.5 g/dL Normal 32.0-35.9 [facility] Comment on above: Performed By: #### C BC ####[facility] PATHOLOGY [id number] [place] [address], MCV (RBC) [Entitic vol] 95 fL Normal 80-100 [facility] Comment on above: Performed By: #### C BC ####[facility] PATHOLOGY [id number] [place] [address], Platelet mean volume (Bld) [Entitic vol] 10.1 fL Normal 7.5-11.2 [facility] Comment on above: Performed By: #### C BC ####[facility] PATHOLOGY [id number] [place] [address], Platelets (Bld) [#/Vol] 225 10*3/uL Normal 150-400 [facility] Comment on above: Performed By: #### C BC ####[facility] PATHOLOGY [id number] [place] [address], RBC (Bld) [#/Vol] 3.18 10*6/uL Low 4.50-5.90 [facility] Comment on above: Performed By: #### C BC ####[facility] PATHOLOGY [id number] [place] [address], WBC (Bld) [#/Vol] 8.3 10*3/uL Normal 4.5-11.5 [facility] Comment on above: Performed By: #### C BC ####[facility] PATHOLOGY [id number] [place], [place], Care Plan Noteon 02-20-2021 Gas Analyst Authentication Interface Message Text Normal [facility] Consultson 02-20-2021 Gas Analyst Authentication Interface Message Text Normal [facility] H AND Martin 02-20-2021 Gas Analyst Authentication Interface Message Text Normal [facility] MAGNESIUMon 02-20-2021 Magnesium [Mass/Vol] 1.8 mg/dL Normal 1.6-2.8 [facility] Comment on above: Performed By: #### Rajiv Roque CH8 ####[facility] [id number] [place], [place], Procedureson 02-20-2021 Gas Analyst Authentication Interface Message Text Normal [facility] Progress Noteson 02-20-2021 Gas Analyst Authentication Interface Message Text Normal [facility] Gas Analyst Authentication Interface Message Text Entered in error. Normal [facility] Gas Analyst Authentication Interface Message Text Normal [facility] Gas Analyst Authentication Interface Message Text Normal [facility] Anesthesia Acute Painon 01-30 Gas Analyst Authentication Interface Message Text Normal [facility] Anesthesia Attestationon Gas Analyst Authentication Interface Message Text Normal [facility] Anesthesia Postprocedure Lucretia luationon 02-19-2021 Gas Analyst Authentication Interface Message Text Normal [facility] Gas Analyst Authentication Interface Message Text Normal [facility] Anesthesia Procedure Noteson 02-19-2021 Gas Analyst Authentication Interface Message Text Normal [facility] Anesthesia Transfer Of Careo n 02-19-2021 Gas Analyst Authentication Interface Message Text Normal [facility] BASIC METABOLIC PANELon 01-30 Anion gap [Moles/Vol] 13 mmol/L Normal 5-13 [facility] Comment on above: Performed By: #### Rajiv Roque CH8 ####[facility] [id number] [place], Calcium [Mass/Vol] 8.9 mg/dL Normal 8.4-10.4 [facility] Comment on above: Performed By: #### Rajiv Roque CH8 ####[facility] [id number] [place], [place], Chloride [Moles/Vol] 107 mmol/L Normal 97-111 [facility] Comment on above: Performed By: #### Rajiv Roque, CH8 ####S PATHOLOGY [id number] [place], [place], CO2 [Moles/Vol] 21 mmol/L Normal 21-30 [facility] Comment on above: Performed By: #### Rajiv Roque, CH8 ####S PATHOLOGY [id number] [place], [place], Creatinine [Mass/Vol] 1.00 mg/dL Normal 0.80-1.30 [facility] Comment on above: Performed By: #### Rajiv Roque, CH8 ####[facility] PATHOLOGY [id number] [place], ESTIMATED GFR (CKD-EPI) 74 mL/min/1.73sqm Normal >=60 [facility] Comment on above: Performed By: #### Rajiv Roque, CH8 ####[facility] PATHOLOGY [id number] [place], Glucose [Mass/Vol] 102 mg/dL Normal 80-116 [facility] Comment on above: Performed By: #### Rajiv Roque, CH8 ####[facility] PATHOLOGY [id number] [place], [place], Potassium [Moles/Vol] 4.3 mmol/L Normal 3.3-5.3 [facility] Comment on above: Performed By: #### Rajiv Roque, CH8 ####S PATHOLOGY [id number] [place], Sodium [Moles/Vol] 137 mmol/L Normal 135-148 [facility] Comment on above: Performed By: #### Rajiv Roque, CH8 ####S PATHOLOGY MPELORTOED7321 [place], [place], Urea nitrogen [Mass/Vol] 23 mg/dL High 8-22 [facility] Comment on above: Performed By: #### Rajiv Roque, CH8 ####S PATHOLOGY [id number] [place], [place], BLOOD GAS, ARTERIALon 2020 CR % O2 SAT > 99.4 Normal >=95.1 [facility] Comment on above: Performed By: #### C R GLU, CR COOX, CR ICA, CR BGA, CR LYTES, LACT ####[facility] PATHOLOGY [id number] [place] [address], CR MAYCOL -2.1 mmol/L Low -2.0-2.0 [facility] Comment on above: Performed By: #### C R GLU, CR COOX, CR ICA, CR BGA, CR LYTES, LACT ####[facility] PATHOLOGY [id number] [place] [address], CR PCO2 32.5 mm Hg Low 35.0-45.0 [facility] Comment on above: Performed By: #### C R GLU, CR COOX, CR ICA, CR BGA, CR LYTES, LACT ####[facility] PATHOLOGY [id number] [place] [address], CR PHA 7.429 Normal 7.35-7.45 [facility] Comment on above: Performed By: #### C R GLU, CR COOX, CR ICA, CR BGA, CR LYTES, LACT ####[facility] PATHOLOGY [id number] [place] [address], CR PO2 190 mm Hg High 80-100 mm Hg [facility] Comment on above: Performed By: #### C R GLU, CR COOX, CR ICA, CR BGA, CR LYTES, LACT ####[facility] PATHOLOGY [id number] [place] [address], HCO3 (Bld) [Moles/Vol] 21 mmol/L Low 22-28 [facility] Comment on above: Performed By: #### C R GLU, CR COOX, CR ICA, CR BGA, CR LYTES, LACT ####[facility] PATHOLOGY [id number] [place] [address], Brief Operative Noteon 02-19 Gas Analyst Authentication Interface Message Text Normal [facility] CALCIUM, IONIZEDon CR ICA 1.12 mmol/L Normal 1.10-1.40 [facility] Comment on above: Performed By: #### C R GLU, CR COOX, CR ICA, CR BGA, CR LYTES, LACT ####[facility] PATHOLOGY [id number] [place] [address], CO-OXIMETERon 02-19-2021 CARBOXYHEMOGLOBIN 2.2 % Normal <3.0 [facility] Comment on above: Performed By: #### C R GLU, CR COOX, CR ICA, CR BGA, CR LYTES, LACT ####[facility] PATHOLOGY [id number] [place] [address], CR HBMET 1.4 % Normal <3.0 [facility] Comment on above: Performed By: #### C R GLU, CR COOX, CR ICA, CR BGA, CR LYTES, LACT ####[facility] PATHOLOGY [id number] [place] [address], Hematocrit (Bld) [Volume fraction] 31.1 % Low 42.0-52.0 [facility] Comment on above: Performed By: #### C R GLU, CR COOX, CR ICA, CR BGA, CR LYTES, LACT ####[facility] PATHOLOGY [id number] [place] [address], Hemoglobin (Bld) [Mass/Vol] 10.1 g/dL Low 14.0-18.0 [facility] Comment on above: Performed By: #### C R GLU, CR COOX, CR ICA, CR BGA, CR LYTES, LACT ####[facility] PATHOLOGY [id number] [place] [address], OXYHEMOGLOBIN 96.1 % Normal 95.0-100.0 [facility] Comment on above: Performed By: #### C R GLU, CR COOX, CR ICA, CR BGA, CR LYTES, LACT ####[facility] PATHOLOGY [id number] [place] [address], COMPLETE BLOOD COUNTon 02-19 Erythrocyte distribution width (RBC) [Ratio] 14.9 % High 11.5-14.5 [facility] Comment on above: Performed By: #### C BC ####[facility] PATHOLOGY [id number] [place] [address], Hematocrit (Bld) [Volume fraction] 31.8 % Low 41.0-53.0 [facility] Comment on above: Performed By: #### C BC ####[facility] PATHOLOGY [id number] [place], Hemoglobin (Bld) [Mass/Vol] 10.7 g/dL Low 13.9-16.3 [facility] Comment on above: Performed By: #### C BC ####[facility] PATHOLOGY [id number] [place] [address], MCH (RBC) [Entitic mass] 31.7 pg Normal 26.0-34.0 [facility] Comment on above: Performed By: #### C BC ####[facility] PATHOLOGY [id number] [place] [address], MCHC (RBC) [Mass/Vol] 33.8 g/dL Normal 32.0-35.9 [facility] Comment on above: Performed By: #### C BC ####[facility] PATHOLOGY [id number] [place] [address], MCV (RBC) [Entitic vol] 94 fL Normal 80-100 [facility] Comment on above: Performed By: #### C BC ####[facility] PATHOLOGY [id number] [place] [address], Platelet mean volume (Bld) [Entitic vol] 9.6 fL Normal 7.5-11.2 [facility] Comment on above: Performed By: #### C BC ####[facility] PATHOLOGY [id number] [place] [address], Platelets (Bld) [#/Vol] 235 10*3/uL Normal 150-400 [facility] Comment on above: Performed By: #### C BC ####[facility] PATHOLOGY [id number] [place] [address], RBC (Bld) [#/Vol] 3.38 10*6/uL Low 4.50-5.90 [facility] Comment on above: Performed By: #### C BC ####[facility] PATHOLOGY [id number] [place] [address] [place], WBC (Bld) [#/Vol] 6.3 10*3/uL Normal 4.5-11.5 [facility] Comment on above: Performed By: #### C BC ####[facility] PATHOLOG[facility] [id number] [place], [place], Care Plan Noteon 02-19-2021 Gas Analyst Authentication Interface Message Text Normal [facility] Consultson 02-19-2021 Gas Analyst Authentication Interface Message Text PHYSICAL THERAPY and OCCUPATIONAL THERAPY Attempt at Tx this AM is unsuccessful as Patient is off floor in OR with Orthopedics for definitive fixation of (L) ankle. Will f/u Maribell Ocasio, PT, MPT (B) [phone] Rosa Vick, OTR/L Normal [facility] ELECTROLYTESon 02-19-2021 Chloride [Moles/Vol] 109 mmol/L Normal 97-111 [facility] Comment on above: Performed By: #### C R GLU, CR COOX, CR ICA, CR BGA, CR LYTES, LACT ####[facility] PATHOLOG[facility] [id number] [place], [place], Potassium [Moles/Vol] 3.8 mmol/L Normal 3.3-5.3 [facility] Comment on above: Performed By: #### C R GLU, CR COOX, CR ICA, CR BGA, CR LYTES, LACT ####[facility] PATHOLOGY [id number] [place], Sodium [Moles/Vol] 134 mmol/L Low 135-148 [facility] Comment on above: Performed By: #### C R GLU, CR COOX, CR ICA, CR BGA, CR LYTES, LACT ####[facility] PATHOLOG[facility] [id number] [place], [place], GLUCOSE, WHOLE BLOODon 02-19 CR GLU 101 mg/dL High 68-98 [facility] Comment on above: Performed By: #### C R GLU, CR COOX, CR ICA, CR BGA, CR LYTES, LACT ####[facility] PATHOLOGY [id number] [place], [place], H AND Martin 02-19-2021 Gas Analyst Authentication Interface Message Text Normal [facility] LACTIC ACIDon 02-19-2021 CR LACT 0.7 mmol/L Normal 0.5-2.0 [facility] Comment on above: Performed By: #### C R GLU, CR COOX, CR ICA, CR BGA, CR LYTES, LACT ####[facility] PATHOLOGY [id number] [place], [place], MAGNESIUMon 02-19-2021 Magnesium [Mass/Vol] 2.0 mg/dL Normal 1.6-2.8 [facility] Comment on above: Performed By: #### Rajiv Roque PHOS ####[facility] PATHOLOGY [id number] [place], [place], Magnesium [Mass/Vol] 2.0 mg/dL Normal 1.6-2.8 [facility] Comment on above: Performed By: #### Rajiv Roque, CH8 ####[facility] PATHOLOGY [id number] [place] [address], OP Noteon 02-19-2021 Gas Analyst Authentication Interface Message Text Normal [facility] PARTIAL THROMBOPLASTIN TIMEo n 02-19-2021 aPTT Coag (Bld) [Time] 34 s Normal 25-37 [facility] Comment on above: Performed By: #### A PTT, PT ####[facility] PATHOLOGY [id number] [place], [place], PHOSPHORUSon 02-19-2021 Phosphate [Mass/Vol] 3.8 mg/dL Normal 2.3-4.2 [facility] Comment on above: Performed By: #### Rajiv Roque PHOS ####S PATHOLOGY [id number] [place], [place], PROTHROMBIN TIME AND INRon 0 02-19-2021 INR Coag (PPP) [Relative time] 1.09 {INR} Normal 0.90-1.10 [facility] Comment on above: Performed By: #### A PTT, PT ####[facility] PATHOLOGY [id number] [place] [address], PT Coag (PPP) [Time] 12.3 s Normal 9.7-12.9 [facility] Comment on above: Performed By: #### A PTT, PT ####S PATHOLOGY [id number] [place], [place], Progress Noteson 02-19-2021 Gas Analyst Authentication Interface Message Text Normal [facility] Gas Analyst Authentication Interface Message Text Peripheral nerve block has been completed at bedside by anesthesia; will maintain cardiac monitoring for at least 30 minutes. Normal [facility] Gas Analyst Authentication Interface Message Text OK for patient to get peripheral nerve block per Dr. Santos. Normal [facility] Gas Analyst Authentication Interface Message Text Normal [facility] TYPE AND SCREENon 02-19-2021 ABO and Rh group Nom (Bld) Blood group A Rh(D) positive Normal [facility] Comment on above: Performed By: #### T S ####S PATHOLOGY [id number] [place], [place], ABSC INT Negative Normal [facility] Comment on above: Performed By: #### T S ####S PATHOLOGY [id number] [place], [place], [place] GUIDANCE NEEDLE PLACEMENT on 02-19-2021 US GUIDANCE NEEDLE PLACEMENT Normal [facility] XR ANKLE LEFTon 02-19-2021 XR ANKLE LEFT Normal [facility] Anesthesia Preprocedure Eval uationon 02-18-2021 Gas Analyst Authentication Interface Message Text Normal [facility] Care Plan Noteon 02-18-2021 Gas Analyst Authentication Interface Message Text Normal [facility] Progress Noteson 02-18-2021 Gas Analyst Authentication Interface Message Text SW is aware pt to go to the OR tomorrow: 02/19/2021. Pt will need post-op PT/OT for SNF placement and precert. [facility] has accepted and following for placement. They were made aware of the above TRINIDAD Malcolm, VEHICLE MAINTENANCE TECHNICIAN [phone] Normal [facility] Gas Analyst Authentication Interface Message Text Normal [facility] Gas Analyst Authentication Interface Message Text Normal [facility] Gas Analyst Authentication Interface Message Text Normal [facility] BASIC METABOLIC PANELon -2 Anion gap [Moles/Vol] 12 mmol/L Normal 5-13 [facility] Comment on above: Performed By: #### Austyn HSajan, DIG, MG ####[facility] [id number] [place], [place], Calcium [Mass/Vol] 8.9 mg/dL Normal 8.4-10.4 [facility] Comment on above: Performed By: #### Austyn Tamez, DIG, MG ####[facility] [id number] [place], [place], Chloride [Moles/Vol] 106 mmol/L Normal 97-111 [facility] Comment on above: Performed By: #### Austyn HSajan, DIG, MG ####[facility] [id number] [place], CO2 [Moles/Vol] 22 mmol/L Normal 21-30 [facility] Comment on above: Performed By: #### Austyn Tamez DIG, MG ####[facility] [id number] [place], Creatinine [Mass/Vol] 1.17 mg/dL Normal 0.80-1.30 [facility] Comment on above: Performed By: #### Austyn Tamez DIG, MG ####[facility] [id number] [place] [address], ESTIMATED GFR (CKD-EPI) 61 mL/min/1.73sqm Normal >=60 [facility] Comment on above: Performed By: #### Austyn Tamez DIG, MG ####[facility] [id number] [place], Glucose [Mass/Vol] 104 mg/dL Normal 80-116 [facility] Comment on above: Performed By: #### Austyn HSajan, DIG, MG ####[facility] [id number] [place], Potassium [Moles/Vol] 4.4 mmol/L Normal 3.3-5.3 [facility] Comment on above: Performed By: #### Austyn HSajan, DIG, MG ####[facility] [id number] [place], Sodium [Moles/Vol] 136 mmol/L Normal 135-148 [facility] Comment on above: Performed By: #### C H8EDMOND, MG ####[facility] PATHOLOGY [id number] [place], Urea nitrogen [Mass/Vol] 33 mg/dL High 8-22 [facility] Comment on above: Performed By: #### C Delfino8EDMOND, MG ####[facility] PATHOLOGY [id number] [place], COMPLETE BLOOD COUNTon 02-17 Erythrocyte distribution width (RBC) [Ratio] 14.6 % High 11.5-14.5 [facility] Comment on above: Performed By: #### C BC ####[facility] PATHOLOGY [id number] [place], Hematocrit (Bld) [Volume fraction] 30.4 % Low 41.0-53.0 [facility] Comment on above: Performed By: #### C BC ####[facility] PATHOLOGY [id number] [place] [address], Hemoglobin (Bld) [Mass/Vol] 10.4 g/dL Low 13.9-16.3 [facility] Comment on above: Performed By: #### C BC ####[facility] PATHOLOGY [id number] [place], MCH (RBC) [Entitic mass] 32.4 pg Normal 26.0-34.0 [facility] Comment on above: Performed By: #### C BC ####[facility] PATHOLOGY [id number] [place] [address], MCHC (RBC) [Mass/Vol] 34.2 g/dL Normal 32.0-35.9 [facility] Comment on above: Performed By: #### C BC ####[facility] PATHOLOGY [id number] [place], MCV (RBC) [Entitic vol] 95 fL Normal 80-100 [facility] Comment on above: Performed By: #### C BC ####[facility] PATHOLOGY [id number] [place] [address], Platelet mean volume (Bld) [Entitic vol] 10.2 fL Normal 7.5-11.2 [facility] Comment on above: Performed By: #### C BC ####S PATHOLOGY [id number] [place], Platelets (Bld) [#/Vol] 207 10*3/uL Normal 150-400 [facility] Comment on above: Performed By: #### C BC ####[facility] PATHOLOGY [id number] [place], RBC (Bld) [#/Vol] 3.20 10*6/uL Low 4.50-5.90 [facility] Comment on above: Performed By: #### C BC ####[facility] PATHOLOGY [id number] [place], WBC (Bld) [#/Vol] 9.1 10*3/uL Normal 4.5-11.5 [facility] Comment on above: Performed By: #### C BC ####[facility] PATHOLOGY [id number] [place], [place], Care Plan Noteon 02-17-2021 Gas Analyst Authentication Interface Message Text Normal [facility] Consultson 02-17-2021 Gas Analyst Authentication Interface Message Text Normal [facility] Gas Analyst Authentication Interface Message Text Normal [facility] DIGOXINon 02-17-2021 DIG 0.91 ng/mL Normal 0.80-2.00 [facility] Comment on above: Performed By: #### C H8, DIG, MG ####S PATHOLOGY [id number] [place], MAGNESIUMon 02-17-2021 Magnesium [Mass/Vol] 2.0 mg/dL Normal 1.6-2.8 [facility] Comment on above: Performed By: #### uAstyn H8, DIG, MG ####[facility] [id number] [place], [place], Progress Noteson 02-17-2021 Gas Analyst Authentication Interface Message Text Normal [facility] Care Plan Noteon 02-16-2021 Gas Analyst Authentication Interface Message Text Normal [facility] Progress Noteson 02-16-2021 Gas Analyst Authentication Interface Message Text Normal [facility] 1:1 Interactionon 02-15-2021 Gas Analyst Authentication Interface Message Text Normal [facility] BASIC METABOLIC PANELon - Anion gap [Moles/Vol] 11 mmol/L Normal 5-13 [facility] Comment on above: Performed By: #### Rajiv Roque, CH8 ####S PATHOLOGY [id number] [place], Calcium [Mass/Vol] 8.8 mg/dL Normal 8.4-10.4 [facility] Comment on above: Performed By: #### Rajiv Roque, ALESHA8 ####S PATHOLOGY [id number] [place], Chloride [Moles/Vol] 108 mmol/L Normal 97-111 [facility] Comment on above: Performed By: #### Rajiv Roque, ALESHA8 ####S PATHOLOGY [id number] [place], CO2 [Moles/Vol] 23 mmol/L Normal 21-30 [facility] Comment on above: Performed By: #### Rajiv Roque, ALESHA8 ####S PATHOLOGY [id number] [place], Creatinine [Mass/Vol] 1.06 mg/dL Normal 0.80-1.30 [facility] Comment on above: Performed By: #### Rajiv Roque, ALESHA8 ####S PATHOLOGY [id number] [place], ESTIMATED GFR (CKD-EPI) 69 mL/min/1.73sqm Normal >=60 [facility] Comment on above: Performed By: #### Rajiv Roque, CH8 ####S PATHOLOGY [id number] [place], Glucose [Mass/Vol] 110 mg/dL Normal 80-116 [facility] Comment on above: Performed By: #### Rajiv Roque, CH8 ####S PATHOLOGY [id number] [place], Potassium [Moles/Vol] 4.3 mmol/L Normal 3.3-5.3 [facility] Comment on above: Performed By: #### Rajiv Roque, CH8 ####[facility] PATHOLOGY [id number] [place], Sodium [Moles/Vol] 138 mmol/L Normal 135-148 [facility] Comment on above: Performed By: #### Rajiv Roque, CH8 ####[facility] PATHOLOGY [id number] [place], Urea nitrogen [Mass/Vol] 34 mg/dL High 8-22 [facility] Comment on above: Performed By: #### Rajiv Roque, ALESHA8 ####[facility] PATHOLOGY [id number] [place], COMPLETE BLOOD COUNTon 02-15 Erythrocyte distribution width (RBC) [Ratio] 14.8 % High 11.5-14.5 [facility] Comment on above: Performed By: #### C BC ####[facility] PATHOLOGY [id number] [place] [address], Hematocrit (Bld) [Volume fraction] 30.1 % Low 41.0-53.0 [facility] Comment on above: Performed By: #### C BC ####[facility] PATHOLOGY [id number] [place] [address], Hemoglobin (Bld) [Mass/Vol] 10.1 g/dL Low 13.9-16.3 [facility] Comment on above: Performed By: #### C BC ####[facility] PATHOLOGY [id number] [place], MCH (RBC) [Entitic mass] 31.3 pg Normal 26.0-34.0 [facility] Comment on above: Performed By: #### C BC ####[facility] PATHOLOGY [id number] [place], MCHC (RBC) [Mass/Vol] 33.5 g/dL Normal 32.0-35.9 [facility] Comment on above: Performed By: #### C BC ####[facility] PATHOLOGY [id number] [place], MCV (RBC) [Entitic vol] 93 fL Normal 80-100 [facility] Comment on above: Performed By: #### C BC ####S PATHOLOGY [id number] [place], Platelet mean volume (Bld) [Entitic vol] 10.2 fL Normal 7.5-11.2 [facility] Comment on above: Performed By: #### C BC ####[facility] PATHOLOGY [id number] [place], Platelets (Bld) [#/Vol] 172 10*3/uL Normal 150-400 [facility] Comment on above: Performed By: #### C BC ####[facility] PATHOLOGY [id number] [place], RBC (Bld) [#/Vol] 3.23 10*6/uL Low 4.50-5.90 [facility] Comment on above: Performed By: #### C BC ####[facility] PATHOLOGY [id number] [place] [address], WBC (Bld) [#/Vol] 9.1 10*3/uL Normal 4.5-11.5 [facility] Comment on above: Performed By: #### C BC ####[facility] PATHOLOGY [id number] [place], Care Plan Noteon 02-15-2021 Gas Analyst Authentication Interface Message Text Normal [facility] Consultson 02-15-2021 Gas Analyst Authentication Interface Message Text Normal [facility] Gas Analyst Authentication Interface Message Text Normal [facility] MAGNESIUMon 02-15-2021 Magnesium [Mass/Vol] 2.0 mg/dL Normal 1.6-2.8 [facility] Comment on above: Performed By: #### Rajiv Roque CH8 ####[facility] PATHOLOGY [id number] [place] [address], Progress Noteson 02-15-2021 Gas Analyst Authentication Interface Message Text Labs and vitals stable, known current state of variable aflutter block causing HR variability from 70-140s. No acute issues since ICU transfer. Normal [facility] Gas Analyst Authentication Interface Message Text Normal [facility] Authentication Interface Message Text Normal [facility] Interactionon 02-14-2021 Gas Analyst Authentication Interface Message Text Normal [facility] BASIC METABOLIC PANELon 01-29 Anion gap [Moles/Vol] 11 mmol/L Normal 5-13 [facility] Comment on above: Performed By: #### Rajiv Roque, CH8 ####[facility] [id number] [place], Calcium [Mass/Vol] 8.6 mg/dL Normal 8.4-10.4 [facility] Comment on above: Performed By: #### Rajiv Roque, CH8 ####S PATHOLOGY [id number] [place], Chloride [Moles/Vol] 110 mmol/L Normal 97-111 [facility] Comment on above: Performed By: #### Rajiv Roque, ALESHA8 ####S PATHOLOGY [id number] [place], CO2 [Moles/Vol] 24 mmol/L Normal 21-30 [facility] Comment on above: Performed By: #### Rajiv Roque, ALESHA8 ####[facility] [id number] [place], Creatinine [Mass/Vol] 0.92 mg/dL Normal 0.80-1.30 [facility] Comment on above: Performed By: #### Rajiv Roque, CH8 ####S PATHOLOGY [id number] [place], ESTIMATED GFR (CKD-EPI) 82 mL/min/1.73sqm Normal >=60 [facility] Comment on above: Performed By: #### Rajiv Roque, CH8 ####[facility] [id number] [place], Glucose [Mass/Vol] 116 mg/dL Normal 80-116 [facility] Comment on above: Performed By: #### Rajiv Roque, CH8 ####[facility] [id number] [place], Potassium [Moles/Vol] 4.3 mmol/L Normal 3.3-5.3 [facility] Comment on above: Performed By: #### Rajiv Roque, CH8 ####[facility] PATHOLOGY [id number] [place], Sodium [Moles/Vol] 141 mmol/L Normal 135-148 [facility] Comment on above: Performed By: #### M Mya, CH8 ####[facility] PATHOLOGY [id number] [place], Urea nitrogen [Mass/Vol] 36 mg/dL High 8-22 [facility] Comment on above: Performed By: #### Rajiv Roque, ALESHA8 ####[facility] PATHOLOGY [id number] [place], COMPLETE BLOOD COUNTon 02-14 Erythrocyte distribution width (RBC) [Ratio] 14.8 % High 11.5-14.5 [facility] Comment on above: Performed By: #### C BC ####[facility] PATHOLOGY [id number] [place], Hematocrit (Bld) [Volume fraction] 29.5 % Low 41.0-53.0 [facility] Comment on above: Performed By: #### C BC ####[facility] PATHOLOGY [id number] [place], Hemoglobin (Bld) [Mass/Vol] 9.9 g/dL Low 13.9-16.3 [facility] Comment on above: Performed By: #### C BC ####[facility] PATHOLOGY [id number] [place], MCH (RBC) [Entitic mass] 31.9 pg Normal 26.0-34.0 [facility] Comment on above: Performed By: #### C BC ####[facility] PATHOLOGY [id number] [place], MCHC (RBC) [Mass/Vol] 33.5 g/dL Normal 32.0-35.9 [facility] Comment on above: Performed By: #### C BC ####[facility] PATHOLOGY [id number] [place], MCV (RBC) [Entitic vol] 95 fL Normal 80-100 [facility] Comment on above: Performed By: #### C BC ####S PATHOLOGY [id number] [place], Platelet mean volume (Bld) [Entitic vol] 10.8 fL Normal 7.5-11.2 [facility] Comment on above: Performed By: #### C BC ####S PATHOLOGY [id number] [place], Platelets (Bld) [#/Vol] 131 10*3/uL Low 150-400 [facility] Comment on above: Performed By: #### C BC ####S PATHOLOGY [id number] [place], RBC (Bld) [#/Vol] 3.09 10*6/uL Low 4.50-5.90 [facility] Comment on above: Performed By: #### C BC ####[facility] PATHOLOGY [id number] [place], WBC (Bld) [#/Vol] 6.8 10*3/uL Normal 4.5-11.5 [facility] Comment on above: Performed By: #### C BC ####[facility] PATHOLOGY [id number] [place], Care Plan Noteon 02-14-2021 Gas Analyst Authentication Interface Message Text Normal [facility] Gas Analyst Authentication Interface Message Text Normal [facility] Consultson 02-14-2021 Gas Analyst Authentication Interface Message Text Normal [facility] Gas Analyst Authentication Interface Message Text Normal [facility] Gas Analyst Authentication Interface Message Text Normal [facility] MAGNESIUMon 02-14-2021 Magnesium [Mass/Vol] 2.5 mg/dL Normal 1.6-2.8 [facility] Comment on above: Performed By: #### M ALESHA Roque8 ####S PATHOLOGY [id number] [place], Progress Noteson 02-14-2021 Gas Analyst Authentication Interface Message Text Normal [facility] Gas Analyst Authentication Interface Message Text Normal [facility] Gas Analyst Authentication Interface Message Text Normal [facility] BASIC METABOLIC PANELon 06- Anion gap [Moles/Vol] 9 mmol/L Normal 5-13 [facility] Comment on above: Performed By: #### Austyn Tamez, MG ####S PATHOLOGY [id number] [place], Calcium [Mass/Vol] 8.9 mg/dL Normal 8.4-10.4 [facility] Comment on above: Performed By: #### Austyn Tamez, MG ####S PATHOLOGY [id number] [place], Chloride [Moles/Vol] 108 mmol/L Normal 97-111 [facility] Comment on above: Performed By: #### Austyn Tamez, MG ####S PATHOLOGY [id number] [place], CO2 [Moles/Vol] 27 mmol/L Normal 21-30 [facility] Comment on above: Performed By: #### Austyn Tamez, MG ####S PATHOLOGY [id number] [place] [address], Creatinine [Mass/Vol] 0.89 mg/dL Normal 0.80-1.30 [facility] Comment on above: Performed By: #### Austyn Tamez, MG ####S PATHOLOGY [id number] [place], ESTIMATED GFR (CKD-EPI) 84 mL/min/1.73sqm Normal >=60 [facility] Comment on above: Performed By: #### Austyn Tamez, MG ####S PATHOLOGY [id number] [place], Glucose [Mass/Vol] 127 mg/dL High 80-[address] [facility] Comment on above: Performed By: #### Austyn Tamez, MG ####[facility] [id number] [place], Potassium [Moles/Vol] 3.9 mmol/L Normal 3.3-5.3 [facility] Comment on above: Performed By: #### Austyn Tamez, MG ####S PATHOLOGY [id number] [place] [address], Sodium [Moles/Vol] 140 mmol/L Normal 135-148 [facility] Comment on above: Performed By: #### C H8, MG ####[facility] PATHOLOG[facility] [id number] [place], Urea nitrogen [Mass/Vol] 29 mg/dL High 8-22 [facility] Comment on above: Performed By: #### C H8, MG ####[facility] PATHOLOGY [id number] [place], COMPLETE BLOOD COUNTon 02-13 Erythrocyte distribution width (RBC) [Ratio] 14.5 % Normal 11.5-14.5 [facility] Comment on above: Performed By: #### C BC ####[facility] PATHOLOGY [id number] [place], Hematocrit (Bld) [Volume fraction] 29.0 % Low 41.0-53.0 [facility] Comment on above: Performed By: #### C BC ####[facility] PATHOLOGY [id number] [place] [address], Hemoglobin (Bld) [Mass/Vol] 9.8 g/dL Low 13.9-16.3 [facility] Comment on above: Performed By: #### C BC ####[facility] PATHOLOGY [id number] [place], MCH (RBC) [Entitic mass] 31.6 pg Normal 26.0-34.0 [facility] Comment on above: Performed By: #### C BC ####[facility] PATHOLOGY [id number] [place], MCHC (RBC) [Mass/Vol] 33.9 g/dL Normal 32.0-35.9 [facility] Comment on above: Performed By: #### C BC ####[facility] PATHOLOGY [id number] [place], MCV (RBC) [Entitic vol] 93 fL Normal 80-100 [facility] Comment on above: Performed By: #### C BC ####[facility] PATHOLOGY [id number] [place] [address], Platelet mean volume (Bld) [Entitic vol] 10.8 fL Normal 7.5-11.2 [facility] Comment on above: Performed By: #### C BC ####S PATHOLOGY [id number] [place], Platelets (Bld) [#/Vol] 132 10*3/uL Low 150-400 [facility] Comment on above: Performed By: #### C BC ####[facility] PATHOLOGY [id number] [place], RBC (Bld) [#/Vol] 3.11 10*6/uL Low 4.50-5.90 [facility] Comment on above: Performed By: #### C BC ####[facility] PATHOLOG[facility] [id number] [place], WBC (Bld) [#/Vol] 7.1 10*3/uL Normal 4.5-11.5 [facility] Comment on above: Performed By: #### C BC ####[facility] PATHOLOGY [id number] [place], Consultson 02-13-2021 Gas Analyst Authentication Interface Message Text Normal [facility] Gas Analyst Authentication Interface Message Text Normal [facility] MAGNESIUMon 02-13-2021 Magnesium [Mass/Vol] 1.9 mg/dL Normal 1.6-2.8 [facility] Comment on above: Performed By: #### C H8, MG ####[facility] PATHOLOG[facility] [id number] [place], Progress Noteson 02-13-2021 Gas Analyst Authentication Interface Message Text Normal [facility] Gas Analyst Authentication Interface Message Text Normal [facility] 1:1 Interactionon 02-12-2021 Gas Analyst Authentication Interface Message Text Normal [facility] BASIC METABOLIC PANELon 01-29 Anion gap [Moles/Vol] 10 mmol/L Normal 5-13 [facility] Comment on above: Performed By: #### C H8, MG, DIG ####[facility] PATHOLOGY [id number] [place], [place], Calcium [Mass/Vol] 8.7 mg/dL Normal 8.4-10.4 [facility] Comment on above: Performed By: #### Austyn Tamez MG, DIG ####[facility] [id number] [place], [place], Chloride [Moles/Vol] 108 mmol/L Normal 97-111 [facility] Comment on above: Performed By: #### Austyn Tamez MG, DIG ####[facility] [id number] [place], [place], CO2 [Moles/Vol] 26 mmol/L Normal 21-30 [facility] Comment on above: Performed By: #### Austyn aTmez MG, DIG ####[facility] [id number] [place] [address], Creatinine [Mass/Vol] 1.10 mg/dL Normal 0.80-1.30 [facility] Comment on above: Performed By: #### MG Kiah, DIG ####S PATHOLOGY [id number] [place], [place], ESTIMATED GFR (CKD-EPI) 66 mL/min/1.73sqm Normal >=60 [facility] Comment on above: Performed By: #### Austyn Tamez MG, DIG ####[facility] [id number] [place] [address], Glucose [Mass/Vol] 116 mg/dL Normal 80-116 [facility] Comment on above: Performed By: #### Austyn Tamez MG, DIG ####[facility] [id number] [place], [place], Potassium [Moles/Vol] 4.2 mmol/L Normal 3.3-5.3 [facility] Comment on above: Performed By: #### Austyn Tamez MG, DIG ####[facility] [id number] [place] [address], Sodium [Moles/Vol] 140 mmol/L Normal 135-148 [facility] Comment on above: Performed By: #### Austyn Tamez MG, DIG ####[facility] [id number] [place] [address], Urea nitrogen [Mass/Vol] 33 mg/dL High 8-22 [facility] Comment on above: Performed By: #### C H8, MG, DIG ####[facility] PATHOLOGY [id number] [place] [address], COMPLETE BLOOD COUNTon 02-12 Erythrocyte distribution width (RBC) [Ratio] 14.5 % Normal 11.5-14.5 [facility] Comment on above: Performed By: #### C BC ####[facility] PATHOLOGY [id number] [place] [address], Hematocrit (Bld) [Volume fraction] 27.5 % Low 41.0-53.0 [facility] Comment on above: Performed By: #### C BC ####[facility] PATHOLOGY [id number] [place] [address], Hemoglobin (Bld) [Mass/Vol] 9.2 g/dL Low 13.9-16.3 [facility] Comment on above: Performed By: #### C BC ####[facility] PATHOLOGY [id number] [place] [address], MCH (RBC) [Entitic mass] 31.1 pg Normal 26.0-34.0 [facility] Comment on above: Performed By: #### C BC ####[facility] PATHOLOGY [id number] [place] [address], MCHC (RBC) [Mass/Vol] 33.4 g/dL Normal 32.0-35.9 [facility] Comment on above: Performed By: #### C BC ####[facility] PATHOLOGY [id number] [place], MCV (RBC) [Entitic vol] 93 fL Normal 80-100 [facility] Comment on above: Performed By: #### C BC ####S PATHOLOGY [id number] [place], Platelet mean volume (Bld) [Entitic vol] 10.8 fL Normal 7.5-11.2 [facility] Comment on above: Performed By: #### C BC ####[facility] PATHOLOGY [id number] [place], [place], Platelets (Bld) [#/Vol] 109 10*3/uL Low 150-400 [facility] Comment on above: Performed By: #### C BC ####[facility] PATHOLOGY [id number] [place], RBC (Bld) [#/Vol] 2.95 10*6/uL Low 4.50-5.90 [facility] Comment on above: Performed By: #### C BC ####[facility] PATHOLOGY [id number] [place], WBC (Bld) [#/Vol] 7.5 10*3/uL Normal 4.5-11.5 [facility] Comment on above: Performed By: #### C BC ####[facility] PATHOLOGY [id number] [place], [place], Care Plan Noteon 02-12-2021 Gas Analyst Authentication Interface Message Text Normal [facility] Consultson 02-12-2021 Gas Analyst Authentication Interface Message Text Normal [facility] Gas Analyst Authentication Interface Message Text Normal [facility] Gas Analyst Authentication Interface Message Text Normal [facility] DIGOXINon 02-12-2021 DIG 0.92 ng/mL Normal 0.80-2.00 [facility] Comment on above: Performed By: #### C H8, MG, DIG ####[facility] PATHOLOGY [id number] [place], [place], [place] MODIFIED BARIUM SWALLOWon 02-12-2021 [place] MODIFIED BARIUM SWALLOW Normal [facility] MAGNESIUMon 02-12-2021 Magnesium [Mass/Vol] 2.0 mg/dL Normal 1.6-2.8 [facility] Comment on above: Performed By: #### C H8, MG, DIG ####[facility] PATHOLOGY [id number] [place], [place], Progress Noteson 02-12-2021 Gas Analyst Authentication Interface Message Text Normal [facility] Gas Analyst Authentication Interface Message Text Normal [facility] BASIC METABOLIC PANELon 01-29 Anion gap [Moles/Vol] 10 mmol/L Normal 5-13 [facility] Comment on above: Performed By: #### C H8, MG ####[facility] [id number] [place], Calcium [Mass/Vol] 8.6 mg/dL Normal 8.4-10.4 [facility] Comment on above: Performed By: #### C H8, MG ####[facility] [id number] [place], Chloride [Moles/Vol] 106 mmol/L Normal 97-111 [facility] Comment on above: Performed By: #### C H8, MG ####[facility] [id number] [place], CO2 [Moles/Vol] 26 mmol/L Normal 21-30 [facility] Comment on above: Performed By: #### C H8, MG ####[facility] [id number] [place], Creatinine [Mass/Vol] 1.01 mg/dL Normal 0.80-1.30 [facility] Comment on above: Performed By: #### C H8, MG ####[facility] [id number] [place], ESTIMATED GFR (CKD-EPI) 73 mL/min/1.73sqm Normal >=60 [facility] Comment on above: Performed By: #### C H8, MG ####[facility] FOQEJMISAT9400 [place], Glucose [Mass/Vol] 121 mg/dL High 80-116 [facility] Comment on above: Performed By: #### C H8, MG ####[facility] [id number] [place], Potassium [Moles/Vol] 4.0 mmol/L Normal 3.3-5.3 [facility] Comment on above: Performed By: #### C H8, MG ####[facility] [id number] [place], Sodium [Moles/Vol] 138 mmol/L Normal 135-148 [facility] Comment on above: Performed By: #### C H8, MG ####[facility] PATHOLOGY [id number] [place], Urea nitrogen [Mass/Vol] 22 mg/dL Normal 8-22 [facility] Comment on above: Performed By: #### C H8, MG ####[facility] PATHOLOGY [id number] [place], COMPLETE BLOOD COUNTon 02-11 Erythrocyte distribution width (RBC) [Ratio] 14.1 % Normal 11.5-14.5 [facility] Comment on above: Performed By: #### C BC ####[facility] PATHOLOGY [id number] [place], Hematocrit (Bld) [Volume fraction] 29.6 % Low 41.0-53.0 [facility] Comment on above: Performed By: #### C BC ####[facility] PATHOLOGY [id number] [place], Hemoglobin (Bld) [Mass/Vol] 10.2 g/dL Low 13.9-16.3 [facility] Comment on above: Performed By: #### C BC ####[facility] PATHOLOGY [id number] [place], MCH (RBC) [Entitic mass] 32.3 pg Normal 26.0-34.0 [facility] Comment on above: Performed By: #### C BC ####[facility] PATHOLOGY [id number] [place], MCHC (RBC) [Mass/Vol] 34.4 g/dL Normal 32.0-35.9 [facility] Comment on above: Performed By: #### C BC ####[facility] PATHOLOGY [id number] [place], MCV (RBC) [Entitic vol] 94 fL Normal 80-[address] [facility] Comment on above: Performed By: #### C BC ####[facility] PATHOLOGY [id number] [place], Platelet mean volume (Bld) [Entitic vol] 10.3 fL Normal 7.5-11.2 [facility] Comment on above: Performed By: #### C BC ####[facility] [id number] [place], Platelets (Bld) [#/Vol] 101 10*3/uL Low 150-400 [facility] Comment on above: Performed By: #### C BC ####[facility] [id number] [place], RBC (Bld) [#/Vol] 3.15 10*6/uL Low 4.50-5.90 [facility] Comment on above: Performed By: #### C BC ####S PATHOLOGY [id number] [place], WBC (Bld) [#/Vol] 8.2 10*3/uL Normal 4.5-11.5 [facility] Comment on above: Performed By: #### C BC ####[facility] [id number] [place], Care Plan Noteon 02-11-2021 Gas Analyst Authentication Interface Message Text Normal [facility] Gas Analyst Authentication Interface Message Text Normal [facility] Consultson 02-11-2021 Gas Analyst Authentication Interface Message Text Normal [facility] DIGOXINon 02-11-2021 DIG 1.91 ng/mL Normal 0.80-2.00 [facility] Comment on above: Performed By: #### D IG ####[facility] [id number] [place], MAGNESIUMon 02-11-2021 Magnesium [Mass/Vol] 2.0 mg/dL Normal 1.6-2.8 [facility] Comment on above: Performed By: #### C H8, MG ####[facility] [id number] [place], Progress Noteson 02-11-2021 Gas Analyst Authentication Interface Message Text Normal [facility] Gas Analyst Authentication Interface Message Text Normal [facility] Gas Analyst Authentication Interface Message Text Normal [facility] Gas Analyst Authentication Interface Message Text Normal [facility] Gas Analyst Authentication Interface Message Text Normal [facility] 1:1 Interactionon 02-10-2021 Gas Analyst Authentication Interface Message Text Normal [facility] ANTI FXA-LMW HEPARINon 02-10 ANTI FXA-LMW HEPARIN ASSAY 1.35 IU/mL Normal [facility] Comment on above: Order Comment: The r ecommended therapeutic range for treatment of thrombosis with Low Molecular Weight Heparin is 0.5 - 1.0 IU/mLThe recommended range for VTE prophylaxis with Low Molecular Weight Heparin is 0.2 - 0.4 IU/mL. Performed By: #### A XL ####S PATHOLOGY [id number] [place], [place], BASIC METABOLIC PANELon 01-29 Anion gap [Moles/Vol] 9 mmol/L Normal 5-13 [facility] Comment on above: Performed By: #### Austyn Tamez, MG ####[facility] PATHOLOGY [id number] [place], Calcium [Mass/Vol] 8.9 mg/dL Normal 8.4-10.4 [facility] Comment on above: Performed By: #### Austyn Tamez, MG ####[facility] PATHOLOGY [id number] [place], Chloride [Moles/Vol] 110 mmol/L Normal 97-111 [facility] Comment on above: Performed By: #### Austyn Tamez, MG ####[facility] PATHOLOGY [id number] [place], CO2 [Moles/Vol] 26 mmol/L Normal 21-30 [facility] Comment on above: Performed By: #### Austyn H8, MG ####S PATHOLOGY [id number] [place], Creatinine [Mass/Vol] 1.10 mg/dL Normal 0.80-1.30 [facility] Comment on above: Performed By: #### Austyn H8, MG ####S PATHOLOGY [id number] [place], ESTIMATED GFR (CKD-EPI) 66 mL/min/1.73sqm Normal >=60 [facility] Comment on above: Performed By: #### Austyn H8, MG ####S PATHOLOGY [id number] [place], Glucose [Mass/Vol] 128 mg/dL High 80-116 [facility] Comment on above: Performed By: #### Austyn H8, MG ####S PATHOLOGY [id number] [place], Potassium [Moles/Vol] 3.7 mmol/L Normal 3.3-5.3 [facility] Comment on above: Performed By: #### C H8, MG ####S PATHOLOGY [id number] [place], Sodium [Moles/Vol] 141 mmol/L Normal 135-148 [facility] Comment on above: Performed By: #### Austyn H8, MG ####[facility] PATHOLOGY [id number] [place], Urea nitrogen [Mass/Vol] 17 mg/dL Normal 8-22 [facility] Comment on above: Performed By: #### Austyn H8, MG ####[facility] PATHOLOGY [id number] [place], COMPLETE BLOOD COUNTon 02-10 Erythrocyte distribution width (RBC) [Ratio] 14.0 % Normal 11.5-14.5 [facility] Comment on above: Performed By: #### C BC ####[facility] PATHOLOGY [id number] [place], Hematocrit (Bld) [Volume fraction] 29.7 % Low 41.0-53.0 [facility] Comment on above: Performed By: #### C BC ####S PATHOLOGY [id number] [place], Hemoglobin (Bld) [Mass/Vol] 10.1 g/dL Low 13.9-16.3 [facility] Comment on above: Performed By: #### C BC ####S PATHOLOGY [id number] [place], MCH (RBC) [Entitic mass] 31.5 pg Normal 26.0-34.0 [facility] Comment on above: Performed By: #### C BC ####S PATHOLOGY [id number] [place], MCHC (RBC) [Mass/Vol] 34.0 g/dL Normal 32.0-35.9 [facility] Comment on above: Performed By: #### C BC ####S PATHOLOGY [id number] [place], MCV (RBC) [Entitic vol] 93 fL Normal 80-100 [facility] Comment on above: Performed By: #### C BC ####S PATHOLOGY [id number] [place], Platelet mean volume (Bld) [Entitic vol] 10.6 fL Normal 7.5-11.2 [facility] Comment on above: Performed By: #### C BC ####[facility] PATHOLOGY [id number] [place], Platelets (Bld) [#/Vol] 90 10*3/uL Low 150-400 [facility] Comment on above: Performed By: #### C BC ####[facility] PATHOLOGY [id number] [place], RBC (Bld) [#/Vol] 3.20 10*6/uL Low 4.50-5.90 [facility] Comment on above: Performed By: #### C BC ####[facility] PATHOLOGY [id number] [place], WBC (Bld) [#/Vol] 6.9 10*3/uL Normal 4.5-11.5 [facility] Comment on above: Performed By: #### C BC ####S PATHOLOGY [id number] [place], Care Plan Noteon 02-10-2021 Gas Analyst Authentication Interface Message Text Normal [facility] Gas Analyst Authentication Interface Message Text Normal [facility] Consultson 02-10-2021 Gas Analyst Authentication Interface Message Text Normal [facility] ED US FOCUSED CARDIACon 01-29 ED US FOCUSED CARDIAC Normal [facility] MAGNESIUMon 02-10-2021 Magnesium [Mass/Vol] 1.7 mg/dL Normal 1.6-2.8 [facility] Comment on above: Performed By: #### Austyn Tamez, MG ####[facility] PATHOLOGY [id number] [place], Progress Noteson 02-10-2021 Gas Analyst Authentication Interface Message Text Normal [facility] Gas Analyst Authentication Interface Message Text Normal [facility] Gas Analyst Authentication Interface Message Text Normal [facility] Treatment Plan Noteon 2020 Gas Analyst Authentication Interface Message Text Normal [facility] XR CHEST AP OR PA 1 VIEWon 0 02-10-2021 XR CHEST AP OR PA 1 VIEW Normal [facility] ANTI FXA-LMW HEPARINon 02-09 ANTI FXA-LMW HEPARIN ASSAY 0.41 IU/mL Normal [facility] Comment on above: Order Comment: The r ecommended therapeutic range for treatment of thrombosis with Low Molecular Weight Heparin is 0.5 - 1.0 IU/mLThe recommended range for VTE prophylaxis with Low Molecular Weight Heparin is 0.2 - 0.4 IU/mL. Performed By: #### A XL ####[facility] PATHOLOGY [id number] [place], BASIC METABOLIC PANELon 01-29 Anion gap [Moles/Vol] 12 mmol/L Normal -13 [facility] Comment on above: Performed By: #### Austyn Tamez, MG ####[facility] PATHOLOGY [id number] [place], Calcium [Mass/Vol] 8.4 mg/dL Normal 8.4-10.4 [facility] Comment on above: Performed By: #### Austyn Tamez, MG ####S PATHOLOGY [id number] [place], Chloride [Moles/Vol] 114 mmol/L High 97-111 [facility] Comment on above: Performed By: #### Austyn Tamez, MG ####S PATHOLOGY [id number] [place], CO2 [Moles/Vol] 22 mmol/L Normal 21-30 [facility] Comment on above: Performed By: #### C H8, MG ####[facility] [id number] [place], Creatinine [Mass/Vol] 1.04 mg/dL Normal 0.80-1.30 [facility] Comment on above: Performed By: #### Austyn H8, MG ####[facility] [id number] [place], ESTIMATED GFR (CKD-EPI) 70 mL/min/1.73sqm Normal >=60 [facility] Comment on above: Performed By: #### Austyn H8, MG ####S PATHOLOGY [id number] [place], Glucose [Mass/Vol] 103 mg/dL Normal 80-116 [facility] Comment on above: Performed By: #### Austyn Saleh8, MG ####S PATHOLOGY [id number] [place], Potassium [Moles/Vol] 3.7 mmol/L Normal 3.3-5.3 [facility] Comment on above: Performed By: #### Austyn H8, MG ####S PATHOLOGY [id number] [place], Sodium [Moles/Vol] 144 mmol/L Normal 135-148 [facility] Comment on above: Performed By: #### Austyn H8, MG ####S PATHOLOGY [id number] [place], Urea nitrogen [Mass/Vol] 18 mg/dL Normal 8-22 [facility] Comment on above: Performed By: #### Austyn H8, MG ####S PATHOLOGY [id number] [place], COMPLETE BLOOD COUNTon 02-09 Erythrocyte distribution width (RBC) [Ratio] 14.0 % Normal 11.5-14.5 [facility] Comment on above: Performed By: #### C BC ####[facility] [id number] [place], Hematocrit (Bld) [Volume fraction] 29.9 % Low 41.0-53.0 [facility] Comment on above: Performed By: #### C BC ####[facility] PATHOLOG[facility] [id number] [place], Hemoglobin (Bld) [Mass/Vol] 10.1 g/dL Low 13.9-16.3 [facility] Comment on above: Performed By: #### C BC ####[facility] PATHOLOGY [id number] [place], MCH (RBC) [Entitic mass] 31.7 pg Normal 26.0-34.0 [facility] Comment on above: Performed By: #### C BC ####[facility] PATHOLOGY [id number] [place], MCHC (RBC) [Mass/Vol] 33.7 g/dL Normal 32.0-35.9 [facility] Comment on above: Performed By: #### C BC ####[facility] PATHOLOGY [id number] [place], MCV (RBC) [Entitic vol] 94 fL Normal 80-100 [facility] Comment on above: Performed By: #### C BC ####[facility] PATHOLOG[facility] [id number] [place], Platelet mean volume (Bld) [Entitic vol] 10.8 fL Normal 7.5-11.2 [facility] Comment on above: Performed By: #### C BC ####[facility] PATHOLOG[facility] [id number] [place], Platelets (Bld) [#/Vol] 92 10*3/uL Low 150-400 [facility] Comment on above: Performed By: #### C BC ####[facility] PATHOLOG[facility] [id number] [place], RBC (Bld) [#/Vol] 3.18 10*6/uL Low 4.50-5.90 [facility] Comment on above: Performed By: #### C BC ####[facility] PATHOLOGY [id number] [place], WBC (Bld) [#/Vol] 6.5 10*3/uL Normal 4.5-11.5 [facility] Comment on above: Performed By: #### C BC ####[facility] [id number] [place], Care Plan Noteon 02-09-2021 Gas Analyst Authentication Interface Message Text Normal [facility] Gas Analyst Authentication Interface Message Text Normal [facility] Consultson 02-09-2021 Gas Analyst Authentication Interface Message Text Normal [facility] MAGNESIUMon 02-09-2021 Magnesium [Mass/Vol] 2.0 mg/dL Normal 1.6-2.8 [facility] Comment on above: Performed By: #### C H8, MG ####[facility] [id number] [place], Progress Noteson 02-09-2021 Gas Analyst Authentication Interface Message Text Normal [facility] Gas Analyst Authentication Interface Message Text Normal [facility] XR CHEST AP OR PA 1 VIEWon 0 02-09-2021 XR CHEST AP OR PA 1 VIEW Normal [facility] 1:1 Interactionon 02-08-2021 Gas Analyst Authentication Interface Message Text Normal [facility] AMMONIAon 02-08-2021 AMMO 14 umol/L Normal 11-35 [facility] Comment on above: Performed By: #### A MMO ####[facility] [id number] [place], BASIC METABOLIC PANELon 01-29 Anion gap [Moles/Vol] 8 mmol/L Normal 5-13 [facility] Comment on above: Performed By: #### Austyn HSajan, MG, CK ####[facility] [id number] [place], Calcium [Mass/Vol] 8.2 mg/dL Low 8.4-10.4 [facility] Comment on above: Performed By: #### Austyn HSajan, MG, CK ####[facility] [id number] [place], Chloride [Moles/Vol] 117 mmol/L High 97-111 [facility] Comment on above: Performed By: #### Austyn HSajan, MG, CK ####[facility] [id number] [place], CO2 [Moles/Vol] 22 mmol/L Normal 21-30 [facility] Comment on above: Performed By: #### Austyn Tamez MG, CK ####S PATHOLOGY [id number] [place], Creatinine [Mass/Vol] 0.99 mg/dL Normal 0.80-1.30 [facility] Comment on above: Performed By: #### Austyn Tamez MG, CK ####[facility] PATHOLOG[facility] [id number] [place], ESTIMATED GFR (CKD-EPI) 75 mL/min/1.73sqm Normal >=60 [facility] Comment on above: Performed By: #### Austyn Tamez MG, CK ####S PATHOLOGY [id number] [place], Glucose [Mass/Vol] 93 mg/dL Normal 80-116 [facility] Comment on above: Performed By: #### Austyn Tamez MG, CK ####S PATHOLOGY [id number] [place], Potassium [Moles/Vol] 3.9 mmol/L Normal 3.3-5.3 [facility] Comment on above: Performed By: #### Austyn Tamez MG, CK ####S PATHOLOGY [id number] [place], Sodium [Moles/Vol] 143 mmol/L Normal 135-148 [facility] Comment on above: Performed By: #### Austyn Tamez MG, CK ####[facility] [id number] [place], Urea nitrogen [Mass/Vol] 17 mg/dL Normal 8-22 [facility] Comment on above: Performed By: #### Austyn Tamez MG, CK ####[facility] [id number] [place], [place], BLOOD GAS, ARTERIALon 2020 CR % O2 SAT > 99.4 Normal >=95.1 [facility] Comment on above: Performed By: #### Austyn R BGA ####[facility] [id number] [place], [place], CR MAYCOL -3.3 mmol/L Low -2.0-2.0 [facility] Comment on above: Performed By: #### C R BGA ####[facility] PATHOLOGY [id number] [place], [place], CR PCO2 30.3 mm Hg Low 35.0-45.0 [facility] Comment on above: Performed By: #### C R BGA ####[facility] PATHOLOGY [id number] [place], [place], CR PHA 7.430 Normal 7.35-7.45 [facility] Comment on above: Performed By: #### C R BGA ####[facility] PATHOLOGY [id number] [place] [address], CR PO2 179 mm Hg High 80-100 mm Hg [facility] Comment on above: Performed By: #### C R BGA ####[facility] PATHOLOGY [id number] [place] [address], FIO2 (CATEGORY) 5 LPM Normal [facility] Comment on above: Performed By: #### C R BGA ####[facility] PATHOLOGY [id number] [place] [address], HCO3 (Bld) [Moles/Vol] 20 mmol/L Low 22-28 [facility] Comment on above: Performed By: #### C R BGA ####[facility] PATHOLOGY [id number] [place], [place], MODE Nasal Canula Normal [facility] Comment on above: Performed By: #### C R BGA ####[facility] PATHOLOGY [id number] [place], [place], COMPLETE BLOOD COUNTon 02-08 Erythrocyte distribution width (RBC) [Ratio] 14.3 % Normal 11.5-14.5 [facility] Comment on above: Performed By: #### C BC ####[facility] PATHOLOGY [id number] [place] [address], Hematocrit (Bld) [Volume fraction] 31.5 % Low 41.0-53.0 [facility] Comment on above: Performed By: #### C BC ####[facility] PATHOLOGY [id number] [place], Hemoglobin (Bld) [Mass/Vol] 10.4 g/dL Low 13.9-16.3 [facility] Comment on above: Performed By: #### C BC ####[facility] PATHOLOGY [id number] [place], MCH (RBC) [Entitic mass] 31.1 pg Normal 26.0-34.0 [facility] Comment on above: Performed By: #### C BC ####[facility] PATHOLOGY [id number] [place], MCHC (RBC) [Mass/Vol] 33.1 g/dL Normal 32.0-35.9 [facility] Comment on above: Performed By: #### C BC ####[facility] PATHOLOGY [id number] [place], MCV (RBC) [Entitic vol] 94 fL Normal 80-100 [facility] Comment on above: Performed By: #### C BC ####[facility] PATHOLOGY [id number] [place], Platelet mean volume (Bld) [Entitic vol] 11.0 fL Normal 7.5-11.2 [facility] Comment on above: Performed By: #### C BC ####[facility] PATHOLOGY [id number] [place], Platelets (Bld) [#/Vol] 80 10*3/uL Low 150-400 [facility] Comment on above: Performed By: #### C BC ####[facility] PATHOLOGY [id number] [place], RBC (Bld) [#/Vol] 3.34 10*6/uL Low 4.50-5.90 [facility] Comment on above: Performed By: #### C BC ####[facility] PATHOLOGY [id number] [place], WBC (Bld) [#/Vol] 6.9 10*3/uL Normal 4.5-11.5 [facility] Comment on above: Performed By: #### C BC ####[facility] [id number] [place], CREATINE KINASEon 02-08-2021 CK [Catalytic activity/Vol] 1850 U/L High 57-374 [facility] Comment on above: Performed By: #### C H8, MG, CK ####[facility] PATHOLOGY [id number] [place], [place], CT CEREBRAL PERFUSION W/+W/O CONTRASTon 02-08-2021 CT CEREBRAL PERFUSION W/+W/O CONTRAST Normal [facility] Care Plan Noteon 02-08-2021 Gas Analyst Authentication Interface Message Text Normal [facility] Gas Analyst Authentication Interface Message Text Normal [facility] Consultson 02-08-2021 Gas Analyst Authentication Interface Message Text Normal [facility] Gas Analyst Authentication Interface Message Text Normal [facility] Gas Analyst Authentication Interface Message Text Normal [facility] Gas Analyst Authentication Interface Message Text Normal [facility] FULL LIPID PROFILEon 021 Cholesterol [Mass/Vol] 139 mg/dL Normal <181 [facility] Comment on above: Performed By: #### H DL ####[facility] PATHOLOGY [id number] [place], Cholesterol in LDL [Mass/Vol] 85 mg/dL Normal <111 [facility] Comment on above: Performed By: #### H DL ####[facility] [id number] [place], Cholesterol.total/Chol esterol in HDL [Mass ratio] 3.48 {ratio} Normal [facility] Comment on above: Performed By: #### H DL ####[facility] [id number] [place], HDL CHOL 40 mg/dL Low >44 [facility] Comment on above: Performed By: #### H DL ####[facility] [id number] [place], LDL/HDL 2.13 Normal <3.57 [facility] Comment on above: Performed By: #### H DL ####[facility] [id number] [place], NON-HDL CHOLESTEROL 99 mg/dL Normal <130 [facility] Comment on above: Performed By: #### H DL ####[facility] [id number] [place], Triglyceride [Mass/Vol] 108 mg/dL Normal <151 [facility] Comment on above: Performed By: #### H DL ####[facility] [id number] [place], MAGNESIUMon 02-08-2021 Magnesium [Mass/Vol] 1.8 mg/dL Normal 1.6-2.8 [facility] Comment on above: Performed By: #### M G ####[facility] PATHOLOGY [id number] [place], Magnesium [Mass/Vol] 1.7 mg/dL Normal 1.6-2.8 [facility] Comment on above: Performed By: #### C H8, MG, CK ####[facility] PATHOLOGY [id number] [place], Procedureson 02-08-2021 Gas Analyst Authentication Interface Message Text Normal [facility] Gas Analyst Authentication Interface Message Text Normal [facility] Gas Analyst Authentication Interface Message Text Normal [facility] Progress Noteson 02-08-2021 Gas Analyst Authentication Interface Message Text Normal [facility] Gas Analyst Authentication Interface Message Text Normal [facility] Gas Analyst Authentication Interface Message Text Normal [facility] Gas Analyst Authentication Interface Message Text Normal [facility] Gas Analyst Authentication Interface Message Text Normal [facility] XR ABDOMEN APon 02-08-2021 XR ABDOMEN AP Normal [facility] XR CHEST AP OR PA 1 VIEWon 0 02-08-2021 XR CHEST AP OR PA 1 VIEW Normal [facility] XR CHEST AP OR PA 1 VIEW Normal [facility] 1:1 Interactionon 02-07-2021 Gas Analyst Authentication Interface Message Text Normal [facility] BASIC METABOLIC PANELon 01-29 Anion gap [Moles/Vol] 11 mmol/L Normal 5-13 [facility] Comment on above: Performed By: #### P HOS, CH8, CK, MG ####[facility] [id number] [place], Calcium [Mass/Vol] 8.1 mg/dL Low 8.4-10.4 [facility] Comment on above: Performed By: #### P HOS, CH8, CK, MG ####[facility] [id number] [place], Chloride [Moles/Vol] 119 mmol/L High 97-111 [facility] Comment on above: Performed By: #### P HOS, CH8, CK, MG ####[facility] [id number] [place], CO2 [Moles/Vol] 21 mmol/L Normal 21-30 [facility] Comment on above: Performed By: #### P HOS, CH8, CK, MG ####S PATHOLOGY [id number] [place] [address], Creatinine [Mass/Vol] 1.05 mg/dL Normal 0.80-1.[address] [facility] Comment on above: Performed By: #### P HOS, CH8, CK, MG ####[facility] [id number] [place] [address], ESTIMATED GFR (CKD-EPI) 70 mL/min/1.73sqm Normal >=60 [facility] Comment on above: Performed By: #### P HOS, CH8, CK, MG ####S PATHOLOGY [id number] [place], Glucose [Mass/Vol] 98 mg/dL Normal 80-[address] [facility] Comment on above: Performed By: #### P HOS, CH8, CK, MG ####[facility] [id number] [place], Potassium [Moles/Vol] 4.0 mmol/L Normal 3.3-5.3 [facility] Comment on above: Performed By: #### P HOS, CH8, CK, MG ####[facility] [id number] [place], Sodium [Moles/Vol] 147 mmol/L Normal 135-148 [facility] Comment on above: Performed By: #### P HOS, CH8, CK, MG ####[facility] PATHOLOGY [id number] [place], Urea nitrogen [Mass/Vol] 26 mg/dL High 8-22 [facility] Comment on above: Performed By: #### P HOS, CH8, CK, MG ####[facility] PATHOLOGY [id number] [place], BLOOD CULTUREon 02-07-2021 Bacteria identified Cx Nom (Bld) C BLOOD: No Growth Normal [facility] Comment on above: Order Comment: The r esults may be compromised due to inadequate volume of fluid received. A negative result does not rule out an infectious process. Performed By: #### C BLOOD ####[facility] Kmspwvznz4368 [place], [place] BLOOD GAS, ARTERIALon 2020 CR MAYCOL -4.3 mmol/L Low -2.0-2.0 [facility] Comment on above: Performed By: #### C R BGA ####[facility] PATHOLOGY [id number] [place], CR PCO2 35.1 mm Hg Normal 35.0-45.0 [facility] Comment on above: Performed By: #### C R BGA ####S PATHOLOGY [id number] [place], [place], CR PHA 7.371 Normal 7.35-7.45 [facility] Comment on above: Performed By: #### C R BGA ####S PATHOLOGY [id number] [place], CR PO2 110 mm Hg High 80-100 mm Hg [facility] Comment on above: Performed By: #### C R BGA ####S PATHOLOGY [id number] [place], FIO2 (CATEGORY) 40% Normal [facility] Comment on above: Performed By: #### C R BGA ####[facility] [id number] [place], HCO3 (Bld) [Moles/Vol] 20 mmol/L Low 22-28 [facility] Comment on above: Performed By: #### C R BGA ####[facility] PATHOLOGY [id number] [place], MODE Vent Normal [facility] Comment on above: Performed By: #### C R BGA ####[facility] PATHOLOGY [id number] [place] [address], Oxygen saturation in Blood 98.0 % Normal >=95.1 [facility] Comment on above: Performed By: #### C R BGA ####[facility] PATHOLOGY [id number] [place] [address], CALCIUM, IONIZEDon CR ICA 1.17 mmol/L Normal 1.10-1.40 [facility] Comment on above: Performed By: #### C R ICA, LACT ####[facility] PATHOLOGY [id number] [place] [address], COMPLETE BLOOD COUNTon 02-07 Erythrocyte distribution width (RBC) [Ratio] 14.7 % High 11.5-14.5 [facility] Comment on above: Performed By: #### C BC ####[facility] PATHOLOGY [id number] [place] [address], Hematocrit (Bld) [Volume fraction] 33.4 % Low 41.0-53.0 [facility] Comment on above: Performed By: #### C BC ####[facility] PATHOLOGY [id number] [place] [address], Hemoglobin (Bld) [Mass/Vol] 10.7 g/dL Low 13.9-16.3 [facility] Comment on above: Performed By: #### C BC ####[facility] PATHOLOGY [id number] [place] [address], MCH (RBC) [Entitic mass] 30.2 pg Normal 26.0-34.0 [facility] Comment on above: Performed By: #### C BC ####[facility] PATHOLOGY [id number] [place], MCHC (RBC) [Mass/Vol] 32.0 g/dL Normal 32.0-35.9 [facility] Comment on above: Performed By: #### C BC ####[facility] PATHOLOGY [id number] [place], MCV (RBC) [Entitic vol] 94 fL Normal 80-100 [facility] Comment on above: Performed By: #### C BC ####[facility] PATHOLOGY [id number] [place], Platelet mean volume (Bld) [Entitic vol] 10.4 fL Normal 7.5-11.2 [facility] Comment on above: Performed By: #### C BC ####[facility] PATHOLOGY [id number] [place], Platelets (Bld) [#/Vol] 86 10*3/uL Low 150-400 [facility] Comment on above: Performed By: #### C BC ####[facility] PATHOLOGY [id number] [place] [address], RBC (Bld) [#/Vol] 3.54 10*6/uL Low 4.50-5.90 [facility] Comment on above: Performed By: #### C BC ####[facility] PATHOLOGY [id number] [place] [address], WBC (Bld) [#/Vol] 8.2 10*3/uL Normal 4.5-11.5 [facility] Comment on above: Performed By: #### C BC ####[facility] PATHOLOGY [id number] [place] [address], Erythrocyte distribution width (RBC) [Ratio] 14.9 % High 11.5-14.5 [facility] Comment on above: Performed By: #### C BC ####[facility] PATHOLOGY [id number] [place], Hematocrit (Bld) [Volume fraction] 34.6 % Low 41.0-53.0 [facility] Comment on above: Performed By: #### C BC ####[facility] PATHOLOGY [id number] [place], Hemoglobin (Bld) [Mass/Vol] 11.5 g/dL Low 13.9-16.3 [facility] Comment on above: Performed By: #### C BC ####[facility] PATHOLOGY [id number] [place], MCH (RBC) [Entitic mass] 31.8 pg Normal 26.0-34.0 [facility] Comment on above: Performed By: #### C BC ####[facility] PATHOLOGY [id number] [place], MCHC (RBC) [Mass/Vol] 33.2 g/dL Normal 32.0-35.9 [facility] Comment on above: Performed By: #### C BC ####[facility] PATHOLOGY [id number] [place], MCV (RBC) [Entitic vol] 96 fL Normal 80-100 [facility] Comment on above: Performed By: #### C BC ####[facility] PATHOLOGY [id number] [place], Platelet mean volume (Bld) [Entitic vol] 10.7 fL Normal 7.5-11.2 [facility] Comment on above: Performed By: #### C BC ####[facility] PATHOLOGY [id number] [place], Platelets (Bld) [#/Vol] 85 10*3/uL Low 150-400 [facility] Comment on above: Performed By: #### C BC ####[facility] PATHOLOGY [id number] [place], RBC (Bld) [#/Vol] 3.62 10*6/uL Low 4.50-5.90 [facility] Comment on above: Performed By: #### C BC ####[facility] PATHOLOGY [id number] [place], WBC (Bld) [#/Vol] 10.6 10*3/uL Normal 4.5-11.5 [facility] Comment on above: Performed By: #### C BC ####S PATHOLOGY [id number] [place], CREATINE KINASEon 02-07-2021 CK [Catalytic activity/Vol] 1944 U/L High 57-374 [facility] Comment on above: Performed By: #### C K ####S PATHOLOGY [id number] [place], CK [Catalytic activity/Vol] 1978 U/L High 57-374 [facility] Comment on above: Performed By: #### C K ####[facility] PATHOLOGY [id number] [place], CK [Catalytic activity/Vol] 2265 U/L High 57-374 [facility] Comment on above: Performed By: #### P HOS, CH8, CK, MG ####[facility] PATHOLOGY [id number] [place], CK [Catalytic activity/Vol] 2537 U/L High 57-374 [facility] Comment on above: Performed By: #### C K ####[facility] PATHOLOGY [id number] [place], Care Plan Noteon 02-07-2021 Gas Analyst Authentication Interface Message Text Normal [facility] Consultson 02-07-2021 Gas Analyst Authentication Interface Message Text Normal [facility] Gas Analyst Authentication Interface Message Text Normal [facility] Gas Analyst Authentication Interface Message Text Normal [facility] GLUCOSE, FINGERSTICK-IN OFFI CEon 02-07-2021 Glucose [Mass/Vol] 92 mg/dL Normal 80-116 [facility] Comment on above: Performed By: #### 8 2948 ####NURSING GLUCOSE [id number] [place], [address] Glucose [Mass/Vol] 82 mg/dL Normal 80-116 [facility] Comment on above: Performed By: #### 8 2948 ####NURSING GLUCOSE [id number] [place], [address] Glucose [Mass/Vol] 89 mg/dL Normal 80-116 [facility] Comment on above: Performed By: #### 8 2948 ####NURSING GLUCOSE [id number] [place], [address] LACTIC ACIDon 02-07-2021 CR LACT 1.0 mmol/L Normal 0.5-2.0 [facility] Comment on above: Performed By: #### C R ICA, LACT ####[facility] [id number] [place], MAGNESIUMon 02-07-2021 Magnesium [Mass/Vol] 2.0 mg/dL Normal 1.6-2.8 [facility] Comment on above: Performed By: #### P HOS, CH8, CK, MG ####[facility] [id number] [place], NOVEL CORONAVIRUS (COVID-19) on 02-07-2021 SARS-CoV-2 (COVID-19) RNA RICK+probe Ql (Unsp spec) Not detected Normal Not Detected [facility] Comment on above: Order Comment: This test is intended for use only under Emergency Use Authorization (EUA). This test was developed, and its performance characteristics determined by [facility] which is certified under CLIA as qualified to perform high complexity clinical laboratory testing. Result Comment: This assay was performed using [employer] RTPCR technology. Performed By: #### C OVID19 ####[facility] [id number] [place], PHOSPHORUSon 02-07-2021 Phosphate [Mass/Vol] 2.5 mg/dL Normal 2.3-4.2 [facility] Comment on above: Performed By: #### P HOS, CH8, CK, MG ####S PATHOLOGY [id number] [place], Procedureson 02-07-2021 Gas Analyst Authentication Interface Message Text Normal [facility] Progress Noteson 02-07-2021 Gas Analyst Authentication Interface Message Text Normal [facility] Gas Analyst Authentication Interface Message Text Normal [facility] Gas Analyst Authentication Interface Message Text Normal [facility] Gas Analyst Authentication Interface Message Text Normal [facility] Gas Analyst Authentication Interface Message Text Normal [facility] TOXICOLOGY SCREEN, UNCONFIRM EDon 02-07-2021 AMPH Negative Normal Negative [facility] Comment on above: Order Comment: This [...] toxicology consultation please call the laboratory at [phone]. Performed By: #### T OX [place] ####S PATHOLOGY [id number] [place], BARBIT Negative Normal Negative [facility] Comment on above: Order Comment: This [...] toxicology consultation please call the laboratory at [phone]. Performed By: #### T OX [place] ####S PATHOLOGY [id number] [place], BENZO Positive Abnormal Negative [facility] Comment on above: Order Comment: This toxicology [...] toxicology consultation please call the laboratory at [phone]. Performed By: #### T OX SC ####S PATHOLOGY [id number] [place], COCAINE CL Negative Normal Negative [facility] Comment on above: Order Comment: This [...] toxicology consultation please call the laboratory at [phone]. Performed By: #### T OX SC ####S PATHOLOGY [id number] [place], Ethanol [Mass/Vol] Negative Normal Cutoff: 1 0 mg/dL [facility] Comment on above: Order Comment: This [...] toxicology consultation please call the laboratory at [phone]. Performed By: #### T OX SC ####S PATHOLOGY PSEVBJEKDH8957 [place], FENTANYL Positive Abnormal Negative [facility] Comment on above: Order Comment: This toxicology [...] toxicology consultation please call the laboratory at [phone]. Performed By: #### T OX SC ####S PATHOLOGY [id number] [place], HYDROCODONE (PM) Negative Normal Negative [facility] Comment on above: Order Comment: This [...] toxicology consultation please call the laboratory at [phone]. Performed By: #### T OX SC ####S PATHOLOGY [id number] [place], Methadone Ql (U) Negative Normal Negative [facility] Comment on above: Order Comment: This [...] toxicology consultation please call the laboratory at [phone]. Performed By: #### T OX SC ####S PATHOLOGY ONSLSSDTVO8509 [place], NORBUPRENORPHINE Negative Normal Cutoff: 10 ng/mL [facility] Comment on above: Order Comment: This [...] toxicology consultation please call the laboratory at [phone]. Performed By: #### T OX [place] ####S PATHOLOGY [id number] [place], OPIATE Negative Normal Negative [facility] Comment on above: Order Comment: This [...] toxicology consultation please call the laboratory at [phone]. Performed By: #### T OX [place] ####S PATHOLOGY [id number] [place], OXYCODONE Positive Abnormal Cutoff: 100 [facility] Comment on above: Order Comment: This [...] toxicology consultation please call the laboratory at [phone]. Result Comment: Oxyc odone and metabolites of Oxycodone (Oxymorphone, Noroxycodone, and Noroxymorphone) are measured/detected in this assay method. Performed By: #### T OX SC ####S PATHOLOGY [id number] [place], PHENCYCL Negative Normal Negative [facility] Comment on above: Order Comment: This toxicology [...] toxicology consultation please call the laboratory at [phone]. Performed By: #### T OX SC ####S PATHOLOGY DFXE[address]AKSB[address] [place] [address], THC CL Negative Normal Negative [facility] Comment on above: Order Comment: This toxicology [...] toxicology consultation please call the laboratory at [phone]. Performed By: #### T OX SC ####S PATHOLOGY [id number] [place], AMPH Negative Normal Negative [facility] Comment on above: Order Comment: This [...] toxicology consultation please call the laboratory at [phone]. Performed By: #### T OX SC ####S PATHOLOGY [id number] [place], BARBIT Negative Normal Negative [facility] Comment on above: Order Comment: This toxicology [...] toxicology consultation please call the laboratory at [phone]. Performed By: #### T OX SC ####S PATHOLOGY [id number] [place], BENZO Positive Abnormal Negative [facility] [facility] Comment on above: Order Comment: This toxicology [...] toxicology consultation please call the laboratory at [phone]. Performed By: #### T OX SC ####[facility] PATHOLOGY [id number] [place], [place], COCAINE CL Negative Normal Negative [facility] Comment on above: Order Comment: This [...] toxicology consultation please call the laboratory at [phone]. Performed By: #### T OX SC ####[facility] PATHOLOGY [id number] [place], [place], Ethanol [Mass/Vol] Negative Normal Cutoff: 1 0 mg/dL [facility] Comment on above: Order Comment: This [...] toxicology consultation please call the laboratory at [phone]. Performed By: #### T OX SC ####[facility] PATHOLOGY [id number] [place], [place], FENTANYL Positive Abnormal Negative [facility] Comment on above: Order Comment: This [...] toxicology consultation please call the laboratory at [phone]. Performed By: #### T OX SC ####S PATHOLOGY [id number] [place], [place], HYDROCODONE (PM) Negative Normal Negative [facility] Comment on above: Order Comment: This [...] toxicology consultation please call the laboratory at [phone]. Performed By: #### T OX SC ####[facility] PATHOLOGY [id number] [place] [address], Methadone Ql (U) Negative Normal Negative [facility] Comment on above: Order Comment: This [...] toxicology consultation please call the laboratory at [phone]. Performed By: #### T OX SC ####S PATHOLOGY [id number] [place], [place], NORBUPRENORPHINE Negative Normal Cutoff: 10 ng/mL [facility] Comment on above: Order Comment: This [...] toxicology consultation please call the laboratory at [phone]. Performed By: #### T OX [place] ####[facility] PATHOLOGY [id number] [place], [place], OPIATE Negative Normal Negative [facility] Comment on above: Order Comment: This [...] toxicology consultation please call the laboratory at [phone]. Performed By: #### T OX [place] ####S PATHOLOGY [id number] [place], [place], OXYCODONE Positive Abnormal Cutoff: 100 [facility] Comment on above: Order Comment: This [...] toxicology consultation please call the laboratory at [phone]. Result Comment: Oxyc odone and metabolites of Oxycodone (Oxymorphone, Noroxycodone, and Noroxymorphone) are measured/detected in this assay method. Performed By: #### T OX SC ####[facility] PATHOLOGY [id number] [place], [place], PHENCYCL Negative Normal Negative [facility] Comment on above: Order Comment: This [...] toxicology consultation please call the laboratory at [phone]. Performed By: #### T OX SC ####S PATHOLOGY [id number] [place] [address], THC CL Negative Normal Negative [facility] Comment on above: Order Comment: This [...] toxicology consultation please call the laboratory at [phone]. Performed By: #### T OX SC ####S PATHOLOGY [id number] [place], [place], URINALYSISon 02-07-2021 Glucose Ql (U) Negative Normal Negative [facility] Comment on above: Order Comment: A [...] Performed By: #### u rinalysis ####S PATHOLOGY [id number] [place], [place], Protein (U) [Mass/Vol] 30 mg/dL Abnormal Negative [facility] Comment on above: Order Comment: A [...] Performed By: #### u rinalysis ####S PATHOLOGY [id number] [place], SQUAMOUS EPITHELIAL 0-2 Normal 0-10 [facility] Comment on above: Order Comment: A [...] Performed By: #### u rinalysis ####S PATHOLOGY [id number] [place] [address], U APPEAR Hazy Normal Clear [facility] Comment on above: Order Comment: A [...] around 50%) Performed By: #### u rinalysis ####[facility] PATHOLOGY [id number] [place] [address], U BILI Negative Normal Negative [facility] Comment on above: Order Comment: A [...] around 50%) Performed By: #### u rinalysis ####[facility] PATHOLOGY [id number] [place] [address], U BLOOD Moderate Abnormal Negative [facility] Comment on above: Order Comment: A [...] around 50%) Performed By: #### u rinalysis ####[facility] PATHOLOGY [id number] [place], [place], U COLOR Yellow Normal Yellow [facility] Comment on above: Order Comment: A [...] Performed By: #### u rinalysis ####S PATHOLOGY [id number] [place] [address], U KETONE Negative Normal Negative [facility] Comment on above: Order Comment: A [...] around 50%) Performed By: #### u rinalysis ####[facility] PATHOLOGY [id number] [place] [address], U LEUK Negative Normal Negative [facility] Comment on above: Order Comment: A [...] Performed By: #### u rinalysis ####S PATHOLOGY [id number] [place] [address], U MUCOUS Present Normal [facility] Comment on above: Order Comment: A [...] around 50%) Performed By: #### u rinalysis ####[facility] PATHOLOGY [id number] [place], [place], U NITRITE Negative Normal Negative [facility] Comment on above: Order Comment: A [...] around 50%) Performed By: #### u rinalysis ####[facility] PATHOLOGY [id number] [place], [place], U PH 5.0 Normal 5.0-8.0 [facility] Comment on above: Order Comment: A [...] around 50%) Performed By: #### u rinalysis ####[facility] PATHOLOGY [id number] [place], [place], U RBC 31-100 Abnormal 0-2 [facility] Comment on above: Order Comment: A [...] around 50%) Performed By: #### u rinalysis ####[facility] PATHOLOGY [id number] [place], [place], U SG 1.045 High 1.005-1.030 [facility] Comment on above: Order Comment: A [...] around 50%) Performed By: #### u rinalysis ####[facility] PATHOLOGY [id number] [place], [place], U UROBILI Negative Normal 0.1 - 1.0 [facility] Comment on above: Order Comment: A [...] around 50%) Performed By: #### u rinalysis ####[facility] PATHOLOGY [id number] [place], U WBC 3-5 Abnormal 0-2 [facility] Comment on above: Order Comment: A [...] Performed By: #### u rinalysis ####S PATHOLOGY [id number] [place], [place], URINE MYOGLOBINon 02-07-2021 U CARLA Negative Normal Negative [facility] Comment on above: Performed By: #### U CARLA ####[facility] PATHOLOGY [id number] [place], [place], XR ANKLE LEFTon 02-07-2021 XR ANKLE LEFT Normal [facility] XR ANKLE RIGHT 2 VIEWon 01-29 XR ANKLE RIGHT 2 VIEW Normal [facility] XR CHEST AP OR PA 1 VIEWon 0 02-07-2021 XR CHEST AP OR PA 1 VIEW Normal [facility] XR CHEST AP OR PA 1 VIEW Normal [facility] BASIC METABOLIC PANELon Anion gap [Moles/Vol] 9 mmol/L Normal 5-13 [facility] Comment on above: Performed By: #### C H8, CK, MG, HEPATIC, PHOS ####[facility] [id number] [place], Calcium [Mass/Vol] 6.5 mg/dL Low 8.4-10.4 [facility] Comment on above: Performed By: #### C H8, CK, MG, HEPATIC, PHOS ####[facility] [id number] [place], [place], Chloride [Moles/Vol] 113 mmol/L High 97-111 [facility] Comment on above: Performed By: #### C H8, CK, MG, HEPATIC, PHOS ####[facility] [id number] [place], CO2 [Moles/Vol] 18 mmol/L Low 21-30 [facility] Comment on above: Performed By: #### C H8, CK, MG, HEPATIC, PHOS ####[facility] [id number] [place], Creatinine [Mass/Vol] 0.96 mg/dL Normal 0.80-1.30 [facility] Comment on above: Performed By: #### C H8, CK, MG, HEPATIC, PHOS ####[facility] [id number] [place], ESTIMATED GFR (CKD-EPI) 78 mL/min/1.73sqm Normal >=60 [facility] Comment on above: Performed By: #### C H8, CK, MG, HEPATIC, PHOS ####[facility] [id number] [place] [address], Glucose [Mass/Vol] 87 mg/dL Normal 80-116 [facility] Comment on above: Performed By: #### C H8, CK, MG, HEPATIC, PHOS ####[facility] [id number] [place] [address], Potassium [Moles/Vol] 4.2 mmol/L Normal 3.3-5.3 [facility] Comment on above: Result Comment: Hemo lysis present Performed By: #### C H8, CK, MG, HEPATIC, PHOS ####[facility] [id number] [place], Sodium [Moles/Vol] 136 mmol/L Normal 135-148 [facility] Comment on above: Performed By: #### C H8, CK, MG, HEPATIC, PHOS ####[facility] [id number] [place], Urea nitrogen [Mass/Vol] 26 mg/dL High 8-22 [facility] Comment on above: Performed By: #### C H8, CK, MG, HEPATIC, PHOS ####[facility] [id number] [place], [place], BLOOD GAS, ARTERIALon 2020 CR MAYCOL -4.6 mmol/L Low -2.0-2.0 [facility] Comment on above: Performed By: #### C R BGA ####[facility] PATHOLOGY [id number] [place], [place], CR PCO2 37.3 mm Hg Normal 35.0-45.0 [facility] Comment on above: Performed By: #### C R BGA ####[facility] PATHOLOGY [id number] [place] [address], CR PHA 7.349 Low 7.35-7.45 [facility] Comment on above: Performed By: #### C R BGA ####[facility] PATHOLOGY [id number] [place] [address], CR PO2 113 mm Hg High 80-100 mm Hg [facility] Comment on above: Performed By: #### C R BGA ####[facility] PATHOLOGY [id number] [place] [address], FIO2 (CATEGORY) 40% Normal [facility] Comment on above: Performed By: #### C R BGA ####[facility] PATHOLOGY [id number] [place] [address], HCO3 (Bld) [Moles/Vol] 20 mmol/L Low 22-28 [facility] Comment on above: Performed By: #### C R BGA ####[facility] PATHOLOGY [id number] [place] [address], MODE Vent Normal [facility] Comment on above: Result Comment: 500 x 16 +5 Performed By: #### C R BGA ####[facility] PATHOLOGY [id number] [place] [address], Oxygen saturation in Blood 98.2 % Normal >=95.1 [facility] Comment on above: Performed By: #### C R BGA ####[facility] PATHOLOGY [id number] [place], [place], CBC WITH DIFFERENTIALon 06-0 Basophils (Bld) [#/Vol] 0.02 10*3/uL Normal 0.00-0.20 [facility] Comment on above: Performed By: #### C BCDSAT ####[facility] PATHOLOGY [id number] [place], Basophils/100 WBC (Bld) 0.2 % Normal <=1.9 [facility] Comment on above: Performed By: #### C BCDSAT ####[facility] PATHOLOGY [id number] [place], Eosinophils (Bld) [#/Vol] 0.00 10*3/uL Normal 0.00-0.70 [facility] Comment on above: Performed By: #### C BCDSAT ####[facility] PATHOLOGY [id number] [place] [address], Eosinophils/100 WBC (Bld) 0.0 % Low 0.1-4.0 [facility] Comment on above: Performed By: #### C BCDSAT ####[facility] PATHOLOGY [id number] [place] [address], Erythrocyte distribution width (RBC) [Ratio] 14.6 % High 11.5-14.5 [facility] Comment on above: Performed By: #### C BCDSAT ####[facility] PATHOLOGY [id number] [place] [address], Hematocrit (Bld) [Volume fraction] 37.5 % Low 41.0-53.0 [facility] Comment on above: Performed By: #### C BCDSAT ####[facility] PATHOLOGY [id number] [place], Hemoglobin (Bld) [Mass/Vol] 12.2 g/dL Low 13.9-16.3 [facility] Comment on above: Performed By: #### C BCDSAT ####[facility] PATHOLOGY [id number] [place], Lymphocytes (Bld) [#/Vol] 1.55 10*3/uL Normal 1.00-4.80 [facility] Comment on above: Performed By: #### C BCDSAT ####[facility] PATHOLOGY [id number] [place], Lymphocytes/100 WBC (Bld) 12.9 % Low 24.0-44.0 [facility] Comment on above: Performed By: #### C BCDSAT ####[facility] PATHOLOGY [id number] [place], MCH (RBC) [Entitic mass] 30.6 pg Normal 26.0-34.0 [facility] Comment on above: Performed By: #### C BCDSAT ####[facility] PATHOLOGY [id number] [place], MCHC (RBC) [Mass/Vol] 32.5 g/dL Normal 32.0-35.9 [facility] Comment on above: Performed By: #### C BCDSAT ####[facility] PATHOLOGY [id number] [place], MCV (RBC) [Entitic vol] 94 fL Normal 80-100 [facility] Comment on above: Performed By: #### C BCJEWELSAT ####[facility] PATHOLOGY [id number] [place], MONOCYTE DISTRIBUTION WIDTH 22 High <=20 [facility] Comment on above: Performed By: #### C ALEJANDROAT ####[facility] PATHOLOGY [id number] [place], Monocytes (Bld) [#/Vol] 1.48 10*3/uL High 0.20-1.00 [facility] Comment on above: Performed By: #### C BCDSAT ####[facility] PATHOLOGY [id number] [place], Monocytes/100 WBC (Bld) 12.4 % High 2.0-11.0 [facility] Comment on above: Performed By: #### C BCDSAT ####[facility] PATHOLOGY [id number] [place], Neutrophils (Bld) [#/Vol] 8.92 10*3/uL High 1.50-8.00 [facility] Comment on above: Performed By: #### C BCDSAT ####[facility] PATHOLOGY [id number] [place], Neutrophils/100 WBC (Bld) 74.5 % Normal 31.0-76.0 [facility] Comment on above: Performed By: #### C BCDSAT ####[facility] PATHOLOGY [id number] [place], Platelet mean volume (Bld) [Entitic vol] 11.2 fL Normal 7.5-11.2 [facility] Comment on above: Performed By: #### C BCDSAT ####[facility] PATHOLOGY [id number] [place], Platelets (Bld) [#/Vol] 96 10*3/uL Low 150-400 [facility] Comment on above: Performed By: #### C BCDSAT ####[facility] PATHOLOGY [id number] [place], RBC (Bld) [#/Vol] 3.98 10*6/uL Low 4.50-5.90 [facility] Comment on above: Performed By: #### C BCDSAT ####[facility] PATHOLOGY [id number] [place] [address], WBC (Bld) [#/Vol] 12.0 10*3/uL High 4.5-11.5 [facility] Comment on above: Performed By: #### C BCDSAT ####[facility] PATHOLOGY [id number] [place] [address], COMPLETE BLOOD COUNTon 02-06 Erythrocyte distribution width (RBC) [Ratio] 14.8 % High 11.5-14.5 [facility] Comment on above: Performed By: #### C BC ####[facility] PATHOLOGY [id number] [place] [address], Hematocrit (Bld) [Volume fraction] 36.9 % Low 41.0-53.0 [facility] Comment on above: Performed By: #### C BC ####S PATHOLOGY [id number] [place], Hemoglobin (Bld) [Mass/Vol] 12.0 g/dL Low 13.9-16.3 [facility] Comment on above: Performed By: #### C BC ####S PATHOLOGY [id number] [place] [address], MCH (RBC) [Entitic mass] 30.5 pg Normal 26.0-34.0 [facility] Comment on above: Performed By: #### C BC ####[facility] PATHOLOGY SEAWVXDCUT7294 [place], MCHC (RBC) [Mass/Vol] 32.4 g/dL Normal 32.0-35.9 [facility] Comment on above: Performed By: #### C BC ####[facility] PATHOLOGY [id number] [place], MCV (RBC) [Entitic vol] 94 fL Normal 80-100 [facility] Comment on above: Performed By: #### C BC ####[facility] PATHOLOGY [id number] [place] [address], Platelet mean volume (Bld) [Entitic vol] 10.5 fL Normal 7.5-11.2 [facility] Comment on above: Performed By: #### C BC ####[facility] PATHOLOGY [id number] [place] [address], Platelets (Bld) [#/Vol] 100 10*3/uL Low 150-400 [facility] Comment on above: Performed By: #### C BC ####[facility] PATHOLOGY [id number] [place], RBC (Bld) [#/Vol] 3.92 10*6/uL Low 4.50-5.90 [facility] Comment on above: Performed By: #### C BC ####[facility] PATHOLOGY [id number] [place], WBC (Bld) [#/Vol] 12.6 10*3/uL High 4.5-11.5 [facility] Comment on above: Performed By: #### C BC ####S PATHOLOGY [id number] [place], CREATINE KINASEon 02-06-2021 CK [Catalytic activity/Vol] 1957 U/L High 57-374 [facility] Comment on above: Performed By: #### C H8, CK, MG, HEPATIC, PHOS ####[facility] [id number] [place], [place], CT C-SPINE W/O CONTRASTon CT C-SPINE W/O CONTRAST Normal [facility] CTA HEAD/NECK W/+W/O CONTRAS Ton 02-06-2021 CTA HEAD/NECK W/+W/O CONTRAST Normal [facility] Consultson 02-06-2021 Gas Analyst Authentication Interface Message Text Normal [facility] ED Provider Noteson 02-07-20 [employer] Authentication Interface Message Text Normal [facility] ED Triage Noteson 02-06-2021 [employer] Authentication Interface Message Text 74M, found down, unresponsive Normal [facility] ETHANOL, SERUMon 02-06-2021 ETHANOL Normal None Detected [facility] Comment on above: Result Comment: Karyna sly hemolyzed, result is invalid.This is a corrected result. Previous result on 02/06/2021 at 1508 EDT was <5 mg/dL Performed By: #### E TOMAS ####[facility] [id number] [place], [place], GLUCOSE, FINGERSTICK-IN OFFI CEon 02-06-2021 Glucose [Mass/Vol] 97 mg/dL Normal 80-116 [facility] Comment on above: Performed By: #### 8 2948 ####NURSING GLUCOSE [id number] [place], [address] Glucose [Mass/Vol] 108 mg/dL Normal 80-116 [facility] Comment on above: Performed By: #### 8 2948 ####NURSING GLUCOSE [id number] [place], [address] H AND Martin 02-06-2021 [employer]st Authentication Interface Message Text Normal [facility] HEPATIC FUNCTION PANELon Albumin [Mass/Vol] 2.4 g/dL Low 3.4-5.1 [facility] Comment on above: Performed By: #### C H8, CK, MG, HEPATIC, PHOS ####[facility] [id number] [place], ALK 27 IU/L Low 40-200 [facility] Comment on above: Performed By: #### C H8, CK, MG, HEPATIC, PHOS ####S PATHOLOGY [id number] [place], ALT [Catalytic activity/Vol] 20 U/L Normal 7-40 [facility] Comment on above: Performed By: #### C H8, CK, MG, HEPATIC, PHOS ####S PATHOLOGY [id number] [place], AST [Catalytic activity/Vol] 48 U/L High 7-40 [facility] Comment on above: Result Comment: Hemo lysis present Performed By: #### C H8, CK, MG, HEPATIC, PHOS ####S PATHOLOGY [id number] [place], Bilirubin [Mass/Vol] 1.3 mg/dL Normal 0.1-1.5 [facility] Comment on above: Performed By: #### C H8, CK, MG, HEPATIC, PHOS ####S PATHOLOGY [id number] [place] [address], Bilirubin.direct [Mass/Vol] 0.20 mg/dL Normal 0.10-0.30 [facility] Comment on above: Performed By: #### C H8, CK, MG, HEPATIC, PHOS ####S PATHOLOGY [id number] [place] [address], Protein [Mass/Vol] 3.8 g/dL Low 5.7-8.1 [facility] Comment on above: Performed By: #### C H8, CK, MG, HEPATIC, PHOS ####S PATHOLOGY [id number] [place], LACTIC ACIDon 02-06-2021 CR LACT 0.9 mmol/L Normal 0.5-2.0 [facility] Comment on above: Performed By: #### L ACT ####S PATHOLOGY [id number] [place] [address], CR LACT 2.8 mmol/L High 0.5-2.0 [facility] Comment on above: Performed By: #### L ACT ####[facility] [id number] [place], MAGNESIUMon 02-06-2021 Magnesium [Mass/Vol] 2.2 mg/dL Normal 1.6-2.8 [facility] Comment on above: Result Comment: Hemo lysis present Performed By: #### C H8, CK, MG, HEPATIC, PHOS ####[facility] PATHOLOGY [id number] [place], PARTIAL THROMBOPLASTIN TIMEo n 02-06-2021 aPTT Coag (Bld) [Time] 28 s Normal 25-37 [facility] Comment on above: Performed By: #### A PTT, PT ####[facility] PATHOLOGY [id number] [place], PHOSPHORUSon 02-06-2021 Phosphate [Mass/Vol] 2.4 mg/dL Normal 2.3-4.2 [facility] Comment on above: Performed By: #### C H8, CK, MG, HEPATIC, PHOS ####[facility] PATHOLOGY [id number] [place], PROTHROMBIN TIME AND INRon 0 02-06-2021 INR Coag (PPP) [Relative time] 1.27 {INR} High 0.90-1.10 [facility] Comment on above: Performed By: #### A PTT, PT ####[facility] PATHOLOGY [id number] [place], PT Coag (PPP) [Time] 14.3 s High 9.7-12.9 [facility] Comment on above: Performed By: #### A PTT, PT ####[facility] PATHOLOGY [id number] [place] [address], Progress Noteson 02-06-2021 Gas Analyst Authentication Interface Message Text Normal [facility] Gas Analyst Authentication Interface Message Text Normal [facility] Gas Analyst Authentication Interface Message Text Normal [facility] TROPONIN Ion 02-06-2021 TROP I 0.102 ng/mL Normal <0.120 [facility] Comment on above: Result Comment: Rang [...] By: #### T ROP I ####S PATHOLOGY [id number] [place], [place], TYPE AND SCREENon 02-06-2021 ABO and Rh group Nom (Bld) Blood group A Rh(D) positive Normal [facility] Comment on above: Performed By: #### T S ####S PATHOLOGY [id number] [place], ABO and Rh group Nom (Bld) No Previous Results Normal [facility] Comment on above: Performed By: #### T S ####[facility] [id number] [place], [place], ABSC INT Negative Normal [facility] Comment on above: Performed By: #### T S ####S PATHOLOGY [id number] [place], XR ANKLE LEFTon 02-06-2021 XR ANKLE [...] RIGHT Normal [facility] Dermatopathologyon Dermatopathology [facility] Dermatopathology Laboratory [address] [place] [id number] DERMATOPATHOLOGY REPORT Name:CHRISTOPHER, CHOCO [facility]. Rec #. [id number] Location: [facility]M Date of Procedure: 04/05/2020 Race: Date Received: 04/09/2020 /Sex: 1945 (Age: 74) / M Date Reported: 04/10/2020 Other: Submitting Physician:VICTORINA WILKS MD FINAL DIAGNOSIS SKIN, L CHEEK, BIOPSY: ACTINIC KERATOSIS WITH ADNEXAL INVOLVEMENT, PRESENT ON THE DEEP AND PERIPHERAL MARGIN. Electronically Signed Out by BROCK OTT M.D. Electronically Signed Out By BROCK OTT MD/[facility] By the signature on this report, the individual or group listed as making the Final Interpretation/Diagn osis certifies that they have reviewed this case. Clinical History: 1.0x0.8cm AK vs. SCC. Biopsy. Specimens Submitted As: A: SKIN, L CHEEK Gross Description: Received in formalin is a huang piece of skin measuring [id number]. The specimen is inked and embedded in [...] The dermis shows elastotic actinic damage. Normal [facility] Comment on above: Performed By: #### D #### Dermatopathology Vital Signs Date Time Vital Sign Value Performing Clinician Faci lity 10-15-2023 13:16-0500 Body height 180.3 cm Gigi Yu DPM Work Phone: [facility] 10-15-2023 13:16-0500 Body mass index (BMI) [Ratio] 29.57 kg/m2 Gigi Yu DPM Work Phone: [facility] 10-15-2023 13:16-0500 Body weight 96.16 kg Gigi Yu DPM Work Phone: [facility] 10-15-2023 13:16-0500 Diastolic blood pressure 81 mm[Hg] Gigi Yu DPM Work Phone: [facility] 10-15-2023 13:16-0500 Heart rate 88 /min Gigi Yu DPM Work Phone: [facility] 10-15-2023 13:16-0500 Systolic blood pressure 130 mm[Hg] Gigi Yu DPM Work Phone: [facility] Encounters Encounter Date Encounter Type Care Provider Facility Start: 04-25-2024 ambulatory KARTHIK IRELAND Not Av ailable Start: 04-05-2024 End: 04-05-2024 ambulatory SWAPNA FONSECA Not Available Start: 03-10-2024 End: 03-10-2024 ambulatory GIGI YU Not Available Start: 02-24-2024 End: 02-24-2024 ambulatory JUAN RAMON FERRARA Not Available Start: 02-11-2024 End: 02-11-2024 ambulatory GIGI YU Not Available Start: 12-31-2023 End: 12-31-2023 ambulatory KARTHIK IRELAND Not Available Start: 12-24-2023 End: 12-24-2023 ambulatory GIGI YU Not Available Start: 11-30-2023 End: 12-01-2023 ambulatory SWAPNA FONSECA Facility:[facility] Start: 11-30-2023 End: 11-30-2023 Patient encounter procedure Lincoln MATTHEWS [facility] Start: 10-15-2023 Chart abstracting Gigi husain DPM Work Phone: [facility] Start: 10-15-2023 End: 10-15-2023 Office outpatient visit 15 minutes Gigi Yu DPM Work Phone: [facility] Comment on above: Venous insufficiency (Primary Dx); Other polyneuropathy; Onychomycosis; Toe pain, right; Toe pain, left; DJD (degenerative joint disease), ankle and foot, left Start: 10-15-2023 End: 10-15-2023 ambulatory GIGI YU Not Available Start: 09-17-2023 ambulatory SWAPNA FONSECA Facility :[facility] Start: 09-10-2023 End: 09-10-2023 ambulatory KARTHIK IRELAND Not Available Start: 02-12-2023 End: 09-10-2023 Patient encounter procedure Gigi Yu DPM Work Phone: [facility] Start: 11-10-2022 End: 11-11-[address] KARTHIK IRELAND Facility:[facility] Start: 07-08-2022 End: 07-09-[address] KARTHIK IRELAND Facility:[facility] Start: 02-19-2022 End: 02-20-[address] KARTHIK IRELAND Facility:[facility] Start: 08-08-2021 End: 08-08-2021 ambulatory UNKNOWN PROVIDER Facility:[facility] Start: 06-03-2021 End: 06-05-2021 ambulatory UNKNOWN PROVIDER Facility:[facility] Start: 05-21-2021 End: 05-21-2021 ambulatory DWAINE AHilda BRENTBRII Facility:[facility] Start: 04-29-2021 End: 04-30-2021 ambulatory UNKNOWN PROVIDER Facility:[facility] Start: 04-01-2021 End: 04-03-2021 ambulatory SELF PATIENT Facility:[facility] Start: 03-18-2021 End: 03-18-2021 ambulatory SELF PATIENT Facility:[facility] Start: 03-11-2021 End: 03-13-2021 ambulatory UNKNOWN PROVIDER Facility:[facility] Start: 02-19-2021 ambulatory UNKNOWN PROVIDER Facili ty:[facility] Start: 02-10-2021 ambulatory UNKNOWN PROVIDER Facili ty:[facility] Start: 02-08-2021 ambulatory ASTRIT HAREBECCAARI Facility :[facility] Start: 02-07-2021 ambulatory UNKNOWN PROVIDER Facili ty:[facility] Start: 02-06-2021 End: 03-01-2021 Evaluation and management of inpatient ASTRIT HAJDARI Facility:[facility] Start: 02-06-2021 End: 02-06-2021 ambulatory UNKNOWN PROVIDER [facility] Procedures Date Procedure Procedure Detail Performing Clinician Start: 07-08-[address] RADHA IRELAND Comment on above: Performed By: #### P LORENZO, PEYTON, FETIBC #### [facility] [address] [address] [address] Karen Marie Colonoscopy Lincoln MATTHEWS Extraction [...] Visit [facility] [address] [place] [id number] Karthik Ireland, DO [address] [facility] [address] [place] [address] [facility] Start: 10-15-2023 End: 10-15-2023 Patient encounter procedure 10/15/2023 1:30 PM EST Procedure Visit [facility] [address] [facility] [address] [place] [id number] Gigi Yu DPM [address] [facility] [address] [place] [address] [facility] Immunizations Immunization Date Immunization Notes Care Provider Fa cility 08-18-2023 Pneumococcal Conjuga te PCV 20 Gigi Yu DPM Work Phone: [facility] 05-11-2023 Influenza, Seasonal, Quadrivalent, Adjuvanted Gigi Yu DPM Work Phone: [facility] Payers Date Payer Category Payer Medicare ANTH MEDICARE ADVANTAGE [facility] MEDICARE ADVANTAGE [id number] 2019-Present [address] [place] [address] [id number] 2018 [place] [facility] [place] [id number] 2018-Present [phone] [address] [place] [address] Medicaid [id number] 1959 Medicaid [id number] 1959 Medicare [id number] 1945 Unknown [id number] 2.16.840.1.696998.3.579.2.732 1945 Unknown [id number] 2.16.840.1.465418.3.579.2.732 1945 Unknown [id number] 2.16.840.1.537929.3.579.2.732 1945 Unknown [id number] 2.16.840.1.362936.3.579.2.732 1945 Unknown [id number] 2.16.840.1.867329.3.579.2.732 1945 Unknown [id number] 2.16.840.1.584552.3.579.2.732 1945 Unknown [id number] 2.16.840.1.093784.3.579.2.732 1945 Unknown [id number] 2.16.840.1.625681.3.579.2.732 1945 Unknown [id number] 2.16.840.1.455475.3.579.2.732 1945 Unknown [id number] 2.16.840.1.381890.3.579.2.732 1945 Unknown [id number] 2.16.840.1.790172.3.579.2.732 1945 Unknown [id number] 2.16.840.1.725671.3.579.2.73 1945 Unknown [id number] 2.16.840.1.838809.3.579.2 1945 Unknown [id number] 2.16.840.1.265269.3.579.2. 1945 Unknown [id number] 2.16.840.1.115487.3.579.2 1945 Unknown [id number] 2.16.840.1.376507.3.579.2 1945 Unknown [id number] 2.16.840.1.536313.3.579.2 1945 Unknown [id number] 2.16.840.1.495130.3.579.2 1945 Unknown [id number] 2.16.840.1.372350.3.579.2 1945 Unknown [id number] 2.16.840.1.982638.3.579.2 1945 Unknown [id number] 2.16.840.1.832129.3.579.2 1945 Unknown [id number] 2.16.840.1.859457.3.579.2. 1945 Unknown [id number] 2.16.840.1.432828.3.579.2. 1945 Unknown [id number] 2.16.840.1.902805.3.579.2 1945 Unknown [id number] 2.16.840.1.508959.3.579.2. 1945 Unknown [id number] 2.16.840.1.359606.3.579.2 1945 Unknown [id number] 2.16.840.1.729260.3.579.2.732 1945 Unknown [id number] 2.16.840.1.494712.3.579.2.73 1945 Unknown [id number] 2.16.840.1.256175.3.579.2.73 1945 Unknown [id number] 2.16.840.1.978443.3.579.2. 1945 Unknown [id number] 2.16.840.1.915907.3.579.2. 1945 Unknown [id number] 2.16.840.1.701191.3.579.2 1945 Unknown [id number] 2.16.840.1.316287.3.579.2. 1945 Unknown [id number] 2.16.840.1.036940.3.579.2. 1945 Unknown [id number] 2.16.840.1.386713.3.579.2. 1945 Unknown [id number] 2.16.840.1.484335.3.579.2. 1945 Unknown [id number] 2.16.840.1.864745.3.579.2. 1945 Unknown [id number] 2.16.840.1.285747.3.579.2. 1945 Unknown [id number] 2.16.840.1.916493.3.579.2. 1945 Unknown [id number] 2.16.840.1.089683.3.579.2. 1945 Unknown [id number] 2.16.840.1.620989.3.579.2. 1945 Unknown [id number] 2.16.840.1.942714.3.579.2.593 1945 Unknown [id number] 2.16.840.1.261001.3.579.2.593 1945 Unknown [id number] 2.16.840.1.987673.3.579.2.593 1945 Unknown [id number] 2.16.840.1.527236.3.579.2.727 1945 Unknown [id number] 2.16.840.1.817597.3.579.2.1259 1945 Unknown [id number] 2.16.840.1.706283.3.579.2.1259 1945 Unknown [id number] 2.16.840.1.008134.3.579.2.1259 1946 Unknown [id number] 2.16.840.1.013455.3.579.2.1259 1945 Unknown [id number] 2.16.840.1.326617.3.579.2.1259 1946 Unknown [id number] 2.16.840.1.457475.3.579.2.1259 1946 Unknown [id number] 2.16.840.1.601693.3.579.2.1259 1945 Unknown [id number] 2.16.840.1.394370.3.579.2.1259 1945 Unknown [id number] 2.16.840.1.694485.3.579.2.1259 Social History Date Type Detail Facility Start: 02-12-[address] [facility]smoker [facility] End: 07-11-2021 History of tobacco use Current smoker [facility] End: 07-11-2021 History of tobacco use Cigarette Smoker [facility] History of tobacco use Passive smoker [facility] Start: 02-12-2023 Tobacco use and exposure Smokeless tobacco non-user [facility] Start: 09-10-2023 End: 10-15-2023 Alcohol intake Lifetime non-drinker (finding) [facility] Start: 02-12-2023 End: 09-10-2023 History of Social function [facility] Start: 02-12-2023 End: 09-10-2023 Tobacco use panel [facility] Start: 02-11-2023 Alcohol Comment Caffeine: 1-2 cups/day tea, 7up [facility] Start: 1945 Sex Assigned At Not on file N [facility] Start: 03-26-2020 Tobacco smoking status Never s moked tobacco (finding) [facility] Tobacco smoking status Never [facility] History of Present illness Narrative 10-15-2023 Gigi Yu DPM - 10/15/2023 1:30 PM EST Note Date [...] edema. Discussed condition in detail. Recommendation for kkyh-[id number]-[id number] compression stockings at this time and may consider prescription stockings in the future. Patient is to begin with qhql-[id number]-hpnjufc compression stockings and discussed where to purchase today Gigi Yu DPM documented in this encounter [facility] Discharge instructions 09-15-2023 Note Date & Type Note Facility 09-15-2023 Hospital Discharg e instructions Follow [facility] 09/15/2023 10:44:19 With:BYRON MCCLOUD, Lincoln Patricia, URL Address: [facility] [address] [place] [phone] When: Unknown [facility] Discharge summary note 02-28-2021 Note Date & Type Note Facility 02-28-2021 Note [facility] Clinical Note 02-07-2021 Note Date & Type Note Facility 02-07-2021 Note Problem: Restraint: Goal: Remain safe while in restraints and once discontinued Outcome: Progressing Restraints needed to maintain safety/airway [facility] Evaluation + Plan note Note Date & Type Note Facility Evaluation + Plan note No data available for this section [facility] Evaluation note Note Date & Type Note [...] available for this section [facility] Summary Purpose Family History No Family History [...] section and content) DATE CREATED AUTHOR 04/11/2020 [facility] DATE CREATED AUTHOR AUTHOR'S ORGANIZ ATION 09/23/2021 [facility] DATE CREATED AUTHOR AUTHOR'S ORGANIZ ATION 10/07/2021 [facility] DATE CREATED AUTHOR AUTHOR'S ORGANIZ ATION 10/18/2021 [facility] DATE CREATED AUTHOR AUTHOR'S ORGANIZ ATION 11/17/2022 [facility] DATE CREATED AUTHOR AUTHOR'S ORGANIZ ATION 12/01/[address] 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 [facility] [employer] [facility]. provides no warranty or guarantee of the accuracy or completeness of information in this document.
--- NOTE | 2024-05-04 18:40 | ED_ITS ---
HPI HPI - General Adult General Chief complaint: Weakness Stated complaint: Shaking, General Weakness Time Seen by Provider: 05/04/24 18:11 Source: patient Mode of arrival: ambulance Limitations: no limitations History of Present Illness HPI narrative: Patient presents to ED via EMS for shakiness. Apparently his called EMS because he was shaky and The said when she was shaky in the past she had had a stroke. She was concerned that this could be a stroke so she called EMS. The patient has no deficits and he states he is feeling pretty much normal and he told me he shakes every day. He said he thinks he took an extra muscle relaxer and it made him a little tired but other than that he has been feeling his normal self. He is alert and oriented x 3 in no acute distress. He has a history of A-fib and takes Eliquis. No shortness of breath he is does say that he has had a cough but he states he coughs all the time. He denies smoking. Vital signs are stable. Patient has lower extremity edema which she states is chronic for him. No abdominal pain nausea or vomiting. He denies chest pain. Related Data Home Medications ?Medication ?Instructions ?Recorded ?Confirmed albuterol sulfate 90 mcg/actuation 2 inh inhalation Q8H PRN shortness 04/16/24 05/04/24 aerosol inhaler of breath or wheezing apixaban 5 mg tablet (Eliquis) 5 mg PO BID 04/16/24 05/04/24 aspirin 81 mg chewable tablet 1 tab PO DAILY 04/16/24 05/04/24 calcium carbonate 600 mg PO DAILY 04/16/24 05/04/24 cholecalciferol (vitamin D3) 25 1,000 unit PO DAILY 04/16/24 05/04/24 mcg (1,000 unit) tablet gabapentin 300 mg capsule 300 mg PO BID 04/16/24 05/04/24 omeprazole 40 mg capsule,delayed 40 mg PO DAILY 04/16/24 05/04/24 release oxycodone 10 mg tablet 5 mg PO TID 04/16/24 05/04/24 simvastatin 40 mg tablet 40 mg PO DAILY 04/16/24 05/04/24 tamsulosin 0.4 mg capsule 0.4 mg PO DAILY 04/16/24 05/04/24 tiotropium bromide 18 mcg capsule 1 cap inhalation DAILY 04/16/24 05/04/24 with inhalation device tizanidine 4 mg tablet 4 mg PO BID 04/16/24 05/04/24 trazodone 100 mg tablet 100 mg PO BEDTIME PRN insomnia 04/16/24 05/04/24 diclofenac sodium 1 % topical gel topical 05/04/24 Previous Rx's ?Medication ?Instructions ?Recorded clindamycin HCl 300 mg capsule 300 mg PO Q6H 7 days #28 caps 04/18/24 furosemide 20 mg tablet 40 mg (2 x 20 mg) PO DAILY #0 tabs 04/18/24 losartan 25 mg tablet 25 mg PO DAILY #30 tabs 04/18/24 metoprolol succinate 50 mg 50 mg PO DAILY #30 tabs 04/18/24 tablet,extended release 24 hr (Toprol XL) Allergies Allergy/AdvReac Type Severity Reaction Status Date / Time Sulfa (Sulfonamide AdvReac Mild Hives Verified 05/04/24 18:17 Antibiotics) Opioid HPI Opioid Management Most Recent Opioid Data: Last Pain Scale 7 04/18/24 06:00 Last ORT Total Score 0 04/17/24 00:23 Last ORT Risk Category Low Risk 04/17/24 00:23 Review of Systems ROS Status of ROS 10 or more systems reviewed and unremark able except as noted in history and below [facility] Medical History (Updated 04/22/24 @ 00:00 by ) Bilateral cellulitis of lower leg ?L03.116 - Cellulitis of left lower limb (ICD-10) ?L03.115 - Cellulitis of right lower limb (ICD-10) Congestive heart failure ?I50.9 - Heart failure, unspecified (ICD-10) Peripheral edema ?R60.0 - Localized edema (ICD-10) H/O: CVA (cerebrovascular accident) ?Z86.73 - Personal history of transient ischemic attack (TIA), and cerebral infarction without residual deficits (ICD-10) Afib ?I48.91 - Unspecified atrial fibrillation (ICD-10) HLD (hyperlipidemia) ?E78.5 - Hyperlipidemia, unspecified (ICD-10) COPD (chronic obstructive pulmonary disease) ?J44.9 - Chronic obstructive pulmonary disease, unspecified (ICD-10) Social History (Updated 04/17/24 @ 11:12 by Shaikh Cate MD) Within the past year, how often did you have a drink containing alcohol: m onthly or less Within the past year, how many standard drinks containing alcohol did you have on a typical day: 1 or 2 Total score: 0 Score interpretation: A score less than 4 is consistent with normal alcohol consumption. Non-prescribed substance use: denies use Highest level of school completed/degree received: high school graduate Exam Narrative Exam Narrative: Time Seen: [] Vital Signs: [Per nurse's notes.] General: [Alert]Tremorous, patient reports this is chronic Skin: [Warm, dry, no rash.] Head: [Normocephalic, atraumatic.] Neck: [Supple, trachea midline.] Eye: [Pupils are equal, round and reactive to light, extraocular movements are intact, normal conjunctiva.] Ears, nose, mouth and throat: oral mucosa moist. Cardiovascular: [Regular rate and rhythm, no murmur.] Respiratory: [Lungs are clear to auscultation, respirations are non-labored, breath sounds are equal.] Chest wall: [No tenderness, no deformity.] Gastrointestinal: [Soft, nontender, non distended, normal bowel sounds.] MSK: 5 out of 5 muscle strength x 4 extremities no calf pain Patient has lower extremity edema bilaterally, worse on the left. Patient reports this is from an old injury Lymphatics: [No lymphadenopathy.] Psychiatric: [Cooperative, appropriate mood & affect.] Neurological: [Alert and oriented to person, place, time, and situation, no focal neurological deficit observed.] Constitutional Vital Signs, click to edit/add: Last Vital Signs Temp 98.3 F 05/04/24 18:13 Pulse 101 H 05/04/24 18:13 Resp 12 05/04/24 18:13 BP 111/64 05/04/24 18:13 Pulse Ox 97 05/04/24 18:13 O2 Del Method Room Air 05/04/24 18:13 Course Vital Signs Vital signs: Vital Signs Temperature 98.3 F 05/04/24 18:13 Pulse Rate 101 H 05/04/24 18:13 Respiratory Rate 12 05/04/24 18:13 Blood Pressure 111/64 05/04/24 18:13 Pulse Oximetry 97 05/04/24 18:13 Oxygen Delivery Method Room Air 05/04/24 18:13 Temperature 98.3 F 05/04/24 18:13 Pulse Rate 101 H 05/04/24 18:13 Respiratory Rate 12 05/04/24 18:13 Blood Pressure 111/64 05/04/24 18:13 Pulse Oximetry 97 05/04/24 18:13 Oxygen Delivery Method Room Air 05/04/24 18:13 Medical Decision Making ECG Data Attestation: I personally reviewed and interpreted this ECG as follows: Interpretation: EKG INTERPRETATION Time: []1818 Rate: []100 Rhythm: _ []Atrial fibrillation ST segments: _ []No evidence of ST elevation or depression T waves: _ [] Ectopy: _ [] P wave/[place] interval: _ [] QRS interval: _ [] QT interval: _ [] Comparison: _ [] Comparison EKG date: [] Performed by: [self]Incomplete right bundle branch block., Artifact Discharge Plan Discharge Chief Complaint: Weakness Prescriptions / Home Meds: No Action tizanidine 4 mg tablet 4 mg PO BID omeprazole 40 mg capsule,delayed release(DR/EC) 40 mg PO DAILY simvastatin 40 mg tablet 40 mg PO DAILY calcium carbonate 600 mg calcium (1,500 mg) tablet 600 mg PO DAILY tamsulosin 0.4 mg capsule 0.4 mg PO DAILY trazodone 100 mg tablet 100 mg PO BEDTIME PRN (Reason: insomnia) gabapentin 300 mg capsule 300 mg PO BID aspirin 81 mg tablet,chewable 1 tab PO DAILY albuterol sulfate 90 mcg/actuation HFA aerosol inhaler 2 inh INHALATION Q8H PRN (Reason: shortness of breath or wheezing) tiotropium bromide 18 mcg capsule, w/inhalation device 1 cap INHALATION DAILY cholecalciferol (vitamin D3) 25 mcg (1,000 unit) tablet 1,000 unit PO DAILY oxycodone 10 mg tablet 5 mg PO TID Eliquis 5 mg tablet 5 mg PO BID losartan 25 mg tablet 25 mg PO DAILY Qty: 30 0RF metoprolol succinate [Toprol XL] 50 mg tablet extended release 24 hr 50 mg PO DAILY Qty: 30 0RF clindamycin HCl 300 mg capsule 300 mg PO Q6H 7 Days Qty: 28 0RF furosemide 20 mg tablet 40 mg PO DAILY Qty: 0 0RF diclofenac sodium 1 % gel TOPICAL Print Language: Hong Konger Referrals: KARTHIK IRELAND [Primary Care Provider] - 1 week
[2024-05-04 18:50] LABS: Basophils Percent Auto 0.5 % (0.2-2.0); Eosinophils Absolute Auto 0.1 10^3/uL (0.0-0.7); Hematocrit 42.7 % (42.0-54.0); Hemoglobin 13.7 g/dL (14.0-18.0); Immature Granulocytes Abs Auto 0.03 10^3/uL (0.00-0.03); Immature Granulocytes Pct Auto 0.4 % (0.0-0.5); Lymphocytes Absolute Auto 1.2 10^3/uL (1.2-3.8); Lymphocytes Percent Auto 16.2 % (20.5-60.0); Mean Corpuscular HGB Conc 32.1 g/dL (29.9-35.2); Mean Corpuscular Hemoglobin 31.2 pg (25.9-34.0); Mean Corpuscular Volume 97.3 fL (80.0-94.0); Mean Platelet Volume 12.3 fL (9.5-13.5); Monocytes Absolute Auto 1.1 10^3/uL (0.3-0.8); Monocytes Percent Auto 13.8 % (1.7-12.0); Neutrophils Absolute Auto 5.2 10^3/uL (1.4-6.5); Neutrophils Percent Auto 68.1 % (43.0-75.0); Platelet Count 124 10^3/uL (150-450); Red Blood Count 4.39 10^6/uL (4.70-6.10); Red Cell Distribution Width 14.7 % (11.0-15.0); White Blood Count 7.7 10^3/uL (4.0-11.0)
[2024-05-04 19:09] LABS: Alanine Aminotransferase 20 U/L (16-63); Albumin Globulin Ratio 1.2; Albumin Level 3.5 g/dL (3.4-5.0); Alkaline Phosphatase 59 U/L (46-116); Aspartate Amino Transferase 19 U/L (15-37); BUN Creatinine Ratio 11.9; Bilirubin Total 0.5 mg/dL (0.2-1.0); Calcium 9.4 mg/dL (8.5-10.1); Estimated GFR (African America 48 (>=60); Estimated GFR (Non-African Ame 40 (>=60); Globulin 2.8 g/dL; Glucose 72 mg/dL (74-106); Total Protein 6.3 g/dL (6.4-8.2); Troponin I High Sensitivity 5.5 pg/mL (4.0-76.1)
[2024-05-04 19:34] LABS: Potassium 3.5 mmol/L (3.5-5.1); Sodium 136 mmol/L (136-145)
[2024-05-04 19:35] LABS: Anion Gap 13.2; Carbon Dioxide 28.3 mmol/L (21.0-32.0); Chloride 98 mmol/L (98-107)
[2024-05-04 21:35] LABS: Bilirubin Urine NEGATIVE (NEGATIVE); Blood Urine NEGATIVE (NEGATIVE); Clarity Urine CLEAR (CLEAR); Color Urine YELLOW (YELLOW); Glucose Urine UA NEGATIVE (NEGATIVE); Ketones Urine NEGATIVE (NEGATIVE); Leukocyte Esterase Urine NEGATIVE (NEGATIVE); Nitrite Urine NEGATIVE (NEGATIVE); Protein Urine NEGATIVE (NEG/TRACE); Specific Gravity Urine 1.015 (1.005-1.025); pH Urine 6.5 (5.0-9.0)
[2024-05-04 21:45] LABS: Urine Microscopic Indicated NO
--- NOTE | 2024-05-04 21:52 | ED.WEAKNESS1 ---
HPI - Weakness General Chief complaint: Weakness Stated complaint: Shaking, General Weakness Time Seen by Provider: 05/04/24 18:11 Source: patient and family Mode of arrival: ambulance Limitations: no limitations History of Present Illness HPI Narrative: This 78-year-old male was signed out to me at shift change. He was brought to the emergency department by EMS. He was evaluated by Dr. Kelly initially with no acute findings. Routine labs and urine were ordered. Patient was seen and evaluated. He is resting comfortably in the room. I did also speak with his who states that they were very busy today and he was sitting down watching television when she looked over at him and he was shaking. There was no loss of consciousness or fall. He has not had a fever. She did admit that they were very busy today and he may have not gotten to eat. I reviewed his labs. He has a normal white count and hemoglobin. Troponin is normal. His BUN is mildly elevated at 20 and his glucose was mildly low at 72 but his labs are otherwise normal. Chest x-ray was negative for acute findings. He admitted that he was hungry and had not had much to eat today and was given a cup of coffee and some cake which he enjoyed. He was ultimately able to produce a urine after being taken to the bathroom because he could not urinate in a urinal. His urine is negative for infection. He has been awake alert oriented, ambulatory without difficulty and at his baseline while in the emergency department and will be discharged home at this time. I encouraged his to monitor his medications closely as he may be having difficulty with his medications and also make sure that he eats several meals during the day. I suspect that may be an episode of hypoglycemia because his shaking although he is not diabetic. Besides that everything is normal and his neuroexam is normal. There are no findings for acute stroke. Related Data Home Medications ?Medication ?Instructions ?Recorded ?Confirmed albuterol sulfate 90 mcg/actuation 2 inh inhalation Q8H PRN shortness 04/16/24 05/04/24 aerosol inhaler of breath or wheezing apixaban 5 mg tablet (Eliquis) 5 mg PO BID 04/16/24 05/04/24 aspirin 81 mg chewable tablet 1 tab PO DAILY 04/16/24 05/04/24 calcium carbonate 600 mg PO DAILY 04/16/24 05/04/24 cholecalciferol (vitamin D3) 25 1,000 unit PO DAILY 04/16/24 05/04/24 mcg (1,000 unit) tablet gabapentin 300 mg capsule 300 mg PO BID 04/16/24 05/04/24 omeprazole 40 mg capsule,delayed 40 mg PO DAILY 04/16/24 05/04/24 release oxycodone 10 mg tablet 5 mg PO TID 04/16/24 05/04/24 simvastatin 40 mg tablet 40 mg PO DAILY 04/16/24 05/04/24 tamsulosin 0.4 mg capsule 0.4 mg PO DAILY 04/16/24 05/04/24 tiotropium bromide 18 mcg capsule 1 cap inhalation DAILY 04/16/24 05/04/24 with inhalation device tizanidine 4 mg tablet 4 mg PO BID PRN muscle spasticity 04/16/24 05/04/24 trazodone 100 mg tablet 100 mg PO BEDTIME PRN insomnia 04/16/24 05/04/24 diclofenac sodium 1 % topical gel 2 g topical QID 05/04/24 05/04/24 furosemide 40 mg tablet 40 mg PO DAILY 05/04/24 05/04/24 Previous Rx's ?Medication ?Instructions ?Recorded clindamycin HCl 300 mg capsule 300 mg PO Q6H 7 days #28 caps 04/18/24 losartan 25 mg tablet 25 mg PO DAILY #30 tabs 04/18/24 metoprolol succinate 50 mg 50 mg PO DAILY #30 tabs 04/18/24 tablet,extended release 24 hr (Toprol XL) Allergies Allergy/AdvReac Type Severity Reaction Status Date / Time Sulfa (Sulfonamide AdvReac Mild Hives Verified 05/04/24 18:17 Antibiotics) [facility] Medical History (Updated 05/04/24 @ 21:52 by Cami Chung MD) Bilateral cellulitis of lower leg ?L03.116 - Cellulitis of left lower limb (ICD-10) ?L03.115 - Cellulitis of right lower limb (ICD-10) Congestive heart failure ?I50.9 - Heart failure, unspecified (ICD-10) Peripheral edema ?R60.0 - Localized edema (ICD-10) H/O: CVA (cerebrovascular accident) ?Z86.73 - Personal history of transient ischemic attack (TIA), and cerebral infarction without residual deficits (ICD-10) Afib ?I48.91 - Unspecified atrial fibrillation (ICD-10) HLD (hyperlipidemia) ?E78.5 - Hyperlipidemia, unspecified (ICD-10) COPD (chronic obstructive pulmonary disease) ?J44.9 - Chronic obstructive pulmonary disease, unspecified (ICD-10) Social History (Updated 04/17/24 @ 11:12 by Shaikh Cate MD) Within the past year, how often did you have a drink containing alcohol: monthly or less Within the past year, how many standard drinks containing alcohol did you have on a typical day: 1 or 2 Total score: 0 Score interpretation: A score less than 4 is consistent with normal alcohol consumption. Non-prescribed substance use: denies use Highest level of school completed/degree received: high school graduate Exam Constitutional Vital Signs, click to edit/add: Last Vital Signs Temp 98.3 F 05/04/24 18:13 Pulse 90 05/04/24 21:10 Resp 21 H 05/04/24 21:10 BP 116/79 05/04/24 20:35 Pulse Ox 90 L 05/04/24 20:20 O2 Del Method Room Air 05/04/24 18:13 Course Vital Signs Vital signs: Vital Signs Blood Pressure 111/64 05/04/24 18:12 Temperature 98.3 F 05/04/24 18:13 Pulse Rate 90 05/04/24 21:10 Respiratory Rate 21 H 05/04/24 21:10 Blood Pressure 116/79 05/04/24 20:35 Pulse Oximetry 90 L 05/04/24 20:20 Oxygen Delivery Method Room Air 05/04/24 18:13 MDM - Weakness Lab Data Labs: Lab Results 05/04/24 05/04/24 Range/Units 18:40 21:27 WBC 7.7 (4.0-11.0) 10^3/uL RBC 4.39 L (4.70-6.10) 10^6/uL Hgb 13.7 L (14.0-18.0) g/dL Hct 42.7 (42.0-54.0) % MCV 97.3 H (80.0-94.0) fL MCH 31.2 (25.9-34.0) pg MCHC 32.1 (29.9-35.2) g/dL RDW 14.7 (11.0-15.0) % Plt Count 124 L (150-450) 10^3/uL MPV 12.3 (9.5-13.5) fL Neut % (Auto) 68.1 (43.0-75.0) % Lymph % (Auto) 16.2 L (20.5-60.0) % [place] % (Auto) 13.8 H (1.7-12.0) % Eos % (Auto) 1.0 (0.9-7.0) % Baso % (Auto) 0.5 (0.2-2.0) % Neut # (Auto) 5.2 (1.4-6.5) 10^3/uL Lymph # (Auto) 1.2 (1.2-3.8) 10^3/uL [place] # (Auto) 1.1 H (0.3-0.8) 10^3/uL Eos # (Auto) 0.1 (0.0-0.7) 10^3/uL Baso # (Auto) 0.0 (0.0-0.1) 10^3/uL Abs Immat Gran (auto) 0.03 (0.00-0.03) 10^3/uL Imm/Tot Granulo (auto) 0.4 (0.0-0.5) % Sodium 136 (136-145) mmol/L Potassium 3.5 (3.5-5.1) mmol/L Chloride 98 (98-107) mmol/L Carbon Dioxide 28.3 (21.0-32.0) mmol/L Anion Gap 13.2 BUN 20.0 H (7.0-18.0) mg/dL Creatinine 1.68 H (0.70-1.30) mg/dL Est GFR ( Amer) 48 L (>=60) Est GFR (Non-Af Amer) 40 L (>=60) BUN/Creatinine Ratio 11.9 Glucose 72 L (74-106) mg/dL Calcium 9.4 (8.5-10.1) mg/dL Total Bilirubin 0.5 (0.2-1.0) mg/dL AST 19 (15-37) U/L ALT 20 (16-63) U/L Alkaline Phosphatase 59 (46-116) U/L Troponin I High Sens 5.5 (4.0-76.1) pg/mL Total Protein 6.3 L (6.4-8.2) g/dL Albumin 3.5 (3.4-5.0) g/dL Globulin 2.8 g/dL Albumin/Globulin Ratio 1.2 Urine Color Yellow (YELLOW) Urine Clarity Clear (CLEAR) Urine pH 6.5 (5.0-9.0) Ur Specific [place] 1.015 (1.005-1.025) Urine Protein Negative (NEG/TRACE) mg/dL Urine Glucose (UA) Negative (NEGATIVE) mg/dL Urine Ketones Negative (NEGATIVE) mg/dL Urine Occult Blood Negative (NEGATIVE) Urine Nitrite Negative (NEGATIVE) Urine Bilirubin Negative (NEGATIVE) Urine Urobilinogen 1.0 (0.2-1.0) EU/dL Ur Leukocyte Esterase Negative (NEGATIVE) Discharge Plan Discharge Stand Alone Forms: Work/School Release, Portal Instructions Chief Complaint: Weakness Clinical Impression: Hypoglycemia, Episode of generalized weakness Patient Disposition: Home, Self-Care Time of Disposition Decision: 21:51 Condition: Good Prescriptions / Home Meds: No Action tizanidine 4 mg tablet 4 mg PO BID PRN (Reason: muscle spasticity) omeprazole 40 mg capsule,delayed release(DR/EC) 40 mg PO DAILY simvastatin 40 mg tablet 40 mg PO DAILY calcium carbonate 600 mg calcium (1,500 mg) tablet 600 mg PO DAILY tamsulosin 0.4 mg capsule 0.4 mg PO DAILY trazodone 100 mg tablet 100 mg PO BEDTIME PRN (Reason: insomnia) gabapentin 300 mg capsule 300 mg PO BID aspirin 81 mg tablet,chewable 1 tab PO DAILY albuterol sulfate 90 mcg/actuation HFA aerosol inhaler 2 inh INHALATION Q8H PRN (Reason: shortness of breath or wheezing) tiotropium bromide 18 mcg capsule, w/inhalation device 1 cap INHALATION DAILY cholecalciferol (vitamin D3) 25 mcg (1,000 unit) tablet 1,000 unit PO DAILY oxycodone 10 mg tablet 5 mg PO TID Eliquis 5 mg tablet 5 mg PO BID losartan 25 mg tablet 25 mg PO DAILY Qty: 30 0RF metoprolol succinate [Toprol XL] 50 mg tablet extended release 24 hr 50 mg PO DAILY Qty: 30 0RF clindamycin HCl 300 mg capsule 300 mg PO Q6H 7 Days Qty: 28 0RF Patient Comments: 04/28/24-05/04/24 diclofenac sodium 1 % gel 2 g TOPICAL QID Rx Instructions: apply to knee and back furosemide 40 mg tablet 40 mg PO DAILY Print Language: Latvian Instructions: Non-diabetic Hypoglycemia (ED), Weakness (ED) Referrals: KARTHIK IRELAND [Primary Care Provider] - 1 week
== END 2024-05-04 22:00 | disposition home or self-care (01) ==
PROVIDERS: Emergency Medicine; Emergency Provider Emergency Medicine; PCP Internal Medicine
DX: R53.1 Weakness (principal); E16.2 Hypoglycemia, unspecified; Z86.73 Personal history of transient ischemic attack (TIA), and cerebral infarction without residual deficits; I48.91 Unspecified atrial fibrillation; Z79.01 Long term (current) use of anticoagulants
CPT/HCPCS: 36415; 71045; 80053; 81003; 84484; 85025; 93005; 99285

== ENCOUNTER 2024-07-14 09:00 | Outpatient (OUT) | payer MEDICARE, MEDICAID, SELFPAY ==
[2024-07-14 09:19] LABS: Basophils Percent Auto 0.5 % (0.2-2.0); Eosinophils Absolute Auto 0.3 10^3/uL (0.0-0.7); Hematocrit 42.7 % (42.0-54.0); Hemoglobin 13.8 g/dL (14.0-18.0); Immature Granulocytes Abs Auto 0.03 10^3/uL (0.00-0.03); Immature Granulocytes Pct Auto 0.4 % (0.0-0.5); Lymphocytes Absolute Auto 1.1 10^3/uL (1.2-3.8); Lymphocytes Percent Auto 13.7 % (20.5-60.0); Mean Corpuscular HGB Conc 32.3 g/dL (29.9-35.2); Mean Corpuscular Hemoglobin 31.1 pg (25.9-34.0); Mean Corpuscular Volume 96.2 fL (80.0-94.0); Mean Platelet Volume 11.2 fL (9.5-13.5); Monocytes Absolute Auto 0.9 10^3/uL (0.3-0.8); Monocytes Percent Auto 11.9 % (1.7-12.0); Neutrophils Absolute Auto 5.5 10^3/uL (1.4-6.5); Neutrophils Percent Auto 69.5 % (43.0-75.0); Platelet Count 146 10^3/uL (150-450); Red Blood Count 4.44 10^6/uL (4.70-6.10); Red Cell Distribution Width 14.6 % (11.0-15.0); White Blood Count 7.9 10^3/uL (4.0-11.0)
--- OUTSIDE RECORDS SUMMARY | 2024-07-14 09:20 | XMS_ITS | CCD ---
Author Organization [facility] Care Team Providers Care Clarifier Name Role Phone PROVIDER, UNKNOWN Attending Unavailable [...] UNKNOWN Admitting Unavailable PROVIDER, UNKNOWN Attending Unavailable MEIR, ASTRJENNIFER Referring Unavailable CARLA MORSE Attending Unavailable CONSULT, IP ORTHOPAEDIC TRAUMA Consulting U navailable SEGOVIA, XAVIERITT Admitting Unavailable REQUEST, IP PHYSICAL THERAPY SERVICE Consulting Unavailable REQUEST, IP OCCUPATIONAL THERAPY SERVICE Consult ing Unavailable CONSULT, NEUROCRITICAL Consulting Unavailab le CONSULT, IP SURGERY VASCULAR Consulting Usha vailable CONSULT, IP SURGERY NEURO Consulting Unavai lable REQUEST, IP POWER SHOVEL ENGINEER SERVICE Consul ting Unavailable CONSULT, IP CARDIOLOGY ELECTROPHYSIOLOGY (EP) Co nsulting Unavailable REQUEST, IP ADMINISTRATIVE AIDE SERVICE Consulting Unavaila ble CONSULT, IP DENTISTRY ADULT Consulting Unav ailable MEIR, ASTRIT Referring Unavailable SEGOVIA, NIMITT Admitting Unavailable [...] UNKNOWN Admitting Unavailable PROVIDER, UNKNOWN Attending Unavailable SHU, DR ANGELES Admitting Unavailable SHU, DR ANGELES Attending Unavailable SHU, DR ANGELES Primary Care Unavailable SHU, DR ANGELES Consulting Unavailable SHU, DR ANGELES Admitting Unavailable SHU, DR ANGELES Attending Unavailable SHU, DR ANGELES Primary Care Unavailable SHU, DR ANGELES Consulting Unavailable SHU, DR ANGELES Admitting Unavailable SHU, DR ANGELES Attending Unavailable SHU, DR ANGELES Primary Care Unavailable DR JAKE IRELAND Consulting Unavailable Jake Ireland DO Primary Care Provider [phone] Jake Ireland DO Unavailable JAKE IRELAND Primary Care Physician Unavail able Cody Celeste Unavailable Unavailable SWAPNA FONSECA Referring Unavailable Lincoln MATTHEWS Attending Unavailable Scott MCCLOUD, Joe Souza Unavailable [phone] DORA, SAMAR Admitting Unavailable DORA, SAMAR Attending Unavailable DORA, SAMAR Referring Unavailable DORA, SAMAR Referring Unavailable DORA, SAMAR Attending Unavailable DORA, SAMAR Attending Unavailable DORA, SAMAR Referring Unavailable Lavon SANON, Anamaria Unavailable [phone] JAKE IRELAND Attending Unavailable JAKE IRELAND Referring Unavailable GIGI YU A Attending Unavailable GIGI YU A Referring Unavailable GIGI YU A Attending Unavailable JAKE IRELAND A Attending Unavailable JAKE IRELAND A Referring Unavailable GIGI YU A Attending Unavailable JUAN RAMON FERRARA Attending Unavailable GIGI YU A Attending Unavailable SWAPNA FONSECA Attending Unavailable JAKE IRELAND Attending Unavailable JAKE IRELAND A Referring Unavailable GIGI YU A Attending Unavailable JAKE IRELAND A Attending Unavailable JAKE IRELAND A Referring Unavailable Allergies Allergy Classification Reported Allergen(s) Allergy Type Date of Onset Reaction(s) Facility (1 source) SULFA DRUGS CROSS REACTORS; Translations: [SULFA DRUGS CROSS REACTORS] Propensity to adverse reactions to drug (disorder) [facility] ([facility] source) Sulfonamides (Antibiotic) Drug allergy (disorder) 4 [facility] Rep[facility] (5 sources) Sulfonamides (Antibiotic) Drug Allergy 3 [facility] (2 sources) Sulfamethoxazole ; Translations: [sulfamethoxazol e] Drug Allergy Unknown (qualifier value) [facility] (2 sources) Unable to obtain; Translations: [Unable to obtain] Drug allergy [facility] (1 source) ALLERGIES NOT ON FILE; Translations: [ALLERGIES NOT ON FILE] Propensity to adverse reactions (disorder) [facility] Repository Medications Current Medications Medication Drug Class(es) Dates Sig (Normalized) Sig (Original) [id number] 200 actuat albuterol 0.09 mg/actuat metered dose inhaler (5 sources) beta2-Adrenergic Agonist Start: 02-01-2024 take 1 puff(s) by inhalation every four hours as needed for wheezing albuterol HFA 90 mcg/act inhaler Indications: 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) ([facility]) INHALE 1 PUFF EVERY 4 HOURS NEEDED FOR SHORTNESS OF BREATH/WHEEZING 18 g 3 02/01/2024 Active Start: 09-10-2023 take 1 puff(s) by mo uth every four hours as needed for wheezing albuterol HFA 90 mcg/act inhaler Indications: 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) INHALE ONE (1) PUFF BY MOUTH EVERY 4 HOURS NEEDED FOR SHORTNESS OF BREATH/WHEEZING 18 g 10 09/10/2023 Active albuterol 0.833 mg/ml / ipratropium bromide 0.167 mg/ml inhalation solution (5 sources) Anticholinergic, beta2-Adrenergic Agonist Start: 07-22-2022 ipratropium-albuterol (Duo-Neb) 0.5-2.5 mg/3 mL nebulizer solution Take 3 mL by nebulization in the morning and 3 mL at noon and 3 mL in the evening and 3 mL before bedtime. 07/22/2022 Active amiodarone hydrochloride 200 mg oral tablet (2 sources) Antiarrhythmic Start: 06-03-2024 End: 11-30-2024 take 2 tablets by mouth in the morning amiodarone (Pacerone) 200 MG tablet Take 400 mg by mouth in the morning and 400 mg in the evening. 06/03/2024 11/30/2024 Active apixaban 5 mg oral tablet (6 sources) Factor Xa Inhibitor Start: 06-20-2019 take 1 tablet by mouth twice daily apixaban (Eliquis) 5 MG tablet Indications: Other pulmonary embolism with acute cor pulmonale, unspecified chronicity ([facility]) TAKE ONE (1) TABLET BY MOUTH TWICE DAILY 180 tablet 3 08/03/2023 Active aspirin 81 mg chewable tablet (5 sources) Platelet Aggregation Inhibitor, Nonsteroidal Anti-inflammatory Drug Start: 08-03-2023 take 1 tablet by mouth once daily aspirin (Aspirin Low Dose) 81 MG chewable tablet Indications: Other pulmonary embolism with acute cor pulmonale, unspecified chronicity ([facility]/HCC) CHEW AND SWALLOW 1 TABLET BY MOUTH ONCE DAILY 90 tablet 3 08/03/2023 Active Atenolol (1 source) beta-Adrenergic Dann Start: 06-08-2019 atenolol Start Date: 06/08/19 Status: Ordered calcium carbonate 1500 mg oral tablet (5 sources) Start: 08-03-2023 take 1 tablet by [...] 0 Active cholecalciferol 0.025 mg oral tablet (7 sources) Vitamin D Start: 03-21-2024 take 1 tablet by mouth once daily cholecalciferol (Vitamin D3) 25 MCG (1000 UT) tablet Indications: Mixed hyperlipidemia (CMS/HCC) Take 1 tablet (25 mcg) by mouth Daily as directed 90 tablet 3 03/21/2024 Active Start: 05-06-2023 take 1 tablet by gab th once daily cholecalciferol (Vitamin D3) 25 MCG (1000 UT) tablet Indications: Mixed hyperlipidemia (CMS/HCC) TAKE 1 TABLET BY MOUTH DAILY DIRECTED 30 tablet 10 05/06/2023 Active Start: 08-27-2022 cholecalcifero l (Vitamin D-3) 25 MCG (1000 UT) capsule Take by mouth Daily. as directed 0 08/27/2022 Active diclofenac sodium 0.01 mg/mg topical gel (6 sources) Nonsteroidal Anti-inflammatory Drug Start: 04-07-2024 diclofenac sodium 1 % gel Indications: Chronic pain syndrome APPLY TO AFFECTED AREA ON KNEE AND BACK 4 TIMES DAILY 100 g 5 04/07/2024 Active Start: 10-05-2023 diclofenac sod ium 1 % gel Indications: Chronic pain syndrome APPLY TO AFFECTED AREA ON KNEE AND BACK 4 TIMES DAILY 100 g 5 10/05/2023 Active Start: 06-20-2019 Voltaren Gel 1 % Gel gram, Topical, QID Start Date: 06/20/19 Status: Ordered fluticasone / vilanterol (6 sources) Corticosteroid, beta2-Adrenergic Agonist Start: 03-26-2020 Breo Ellipta Inhalation, Daily, Refill(s) 0 Start Date: 03/26/20 Status: Ordered Fluticasone Furo ate-Vilanterol (Breo Ellipta) 100-25 MCG/ACT aerosol powder 1 puff in the morning. Active furosemide 40 mg oral tablet (8 sources) Loop Diuretic Start: 06-16-2024 End: 06-16-2025 take 1 tablet by mouth once daily furosemide (Lasix) 40 MG tablet Indications: Chronic combined systolic and diastolic congestive heart failure, NYHA class 2 (CMS/HCC) Take 1 tablet (40 mg) by mouth Daily 30 tablet 5 06/16/2024 06/16/2025 Active Start: 05-28-2023 End: 05-27-2024 take 1 tablet [...] Status: Ordered gabapentin 300 mg oral capsule (5 sources) Anti-epileptic Agent Start: 01-19-2024 take 1 capsule by mouth twice daily gabapentin (Neurontin) 300 MG capsule Indications: Chronic pain syndrome TAKE ONE CAPSULE BY MOUTH TWICE DAILY 180 capsule 3 01/19/2024 Active Start: 03-05-2023 take 1 capsule by mo [facility] twice daily gabapentin (Neurontin) 300 MG capsule Indications: Chronic pain syndrome TAKE ONE (1) CAPSULE BY MOUTH TWICE DAILY 60 capsule 10 03/05/2023 Active HYDROcodone (1 source) Opioid Agonist Start: 06-08-2019 hydrocodone Refills(s) 0 Start Date: 06/08/19 Status: Ordered hydrocortisone 10 mg/ml rectal cream (5 sources) Corticosteroid hydrocortisone 1 % cream Apply topically 2 (two) times a day. Active ibuprofen 800 mg oral tablet (2 sources) Nonsteroidal Anti-inflammatory Drug Start: 06-25-2022 take 1 tablet by mouth every eight hours as needed ibuprofen 800 MG tablet Take 800 mg by mouth every 8 (eight) hours if needed. 0 06/25/2022 Active losartan potassium 25 mg oral tablet (1 source) Angiotensin 2 Receptor Dann Start: 05-19-2024 End: 08-17-2024 take 1 tablet by mouth once daily losartan (Cozaar) 25 MG tablet Indications: Essential hypertension (CMS/HCC) Take 1 tablet (25 mg) by mouth Daily 30 tablet 2 05/19/2024 08/17/2024 Active magnesium hydroxide 80 mg/ml oral suspension (2 sources) magnesium hydrox torey (Milk of Magnesia) 400 MG/5ML suspension Take by mouth every 6 (six) hours. 0 Active metoprolol tartrate 25 mg oral tablet (5 sources) beta-Adrenergic Dann Start: 06-29-2024 take 1 tablet by mouth in the morning, then take 1 tablet by mouth in the evening, then take 1 tablet by mouth at bedtime metoprolol tartrate (Lopressor) 25 MG tablet Take 1 tablet (25 mg) by mouth in the morning and 1 tablet (25 mg) in the evening and 1 tablet (25 mg) before bedtime. 06/29/2024 Active Start: 05-18-2024 take 1 tablet by gab th in the morning metoprolol tartrate (Lopressor) 25 MG tablet Take 25 mg by mouth in the morning and 25 mg before bedtime. 05/18/2024 Active Start: 05-06-2023 take 1 tablet by gab th twice daily at mealtime metoprolol tartrate (Lopressor) 25 MG tablet Indications: Mixed hyperlipidemia (CMS/HCC) TAKE ONE (1) TABLET BY MOUTH TWICE DAILY WITH FOOD 180 tablet 3 05/06/2023 Active omeprazole 40 mg delayed release oral capsule (6 sources) Proton Pump Inhibitor Start: 01-19-2024 take 1 capsule by mouth once daily omeprazole (PriLOSEC) [address] capsule Indications: Gastro-esophageal reflux disease without esophagitis TAKE 1 CAPSULE BY MOUTH ONCE DAILY 90 capsule 3 01/19/2024 Active Start: 06-20-2019 take 1 capsule by mo uth once daily omeprazole (PriLOSEC) [address] capsule Indications: Gastro-esophageal reflux disease without esophagitis TAKE ONE (1) CAPSULE BY MOUTH ONCE DAILY 30 capsule 10 03/06/2023 Active oxyCODONE hydrochloride 10 mg oral tablet (7 sources) Opioid Agonist Start: 05-19-2024 End: 06-22-2024 take 1 tablet by mouth in the morning, then take 1 tablet by mouth in the evening, then take 1 tablet by mouth at bedtime oxyCODONE (Roxicodone) 10 MG immediate release tablet Indications: Chronic pain syndrome Take 1 tablet (10 mg) by mouth in the morning and 1 tablet (10 mg) in the evening and 1 tablet (10 mg) before bedtime. 90 tablet 06/22/2024 Active Start: 10-05-2023 End: 11-04-2023 take 1 tablet [...] Status: Ordered Respiratory Therapy Supplies (Nebulizer/Tubing/Mouthpiece) kit (5 sources) Respiratory Ther apy Supplies (Nebulizer/Tubing/Mouthpiece) kit Active Respiratory Ther apy Supplies (Nebulizer/Tubing/Mouthpiece) kit Sertraline (1 source) Serotonin Reuptake Inhibitor Start: 06-08-2019 sertraline Start Date: 06/08/19 Status: Ordered simvastatin 40 mg oral tablet (6 sources) HMG-CoA Reductase Inhibitor Start: 12-21-2023 take 1 tablet by mouth at bedtime simvastatin (Zocor) 40 MG tablet Indications: Pure hypertriglyceridemia (CMS/HCC) TAKE 1 TABLET BY MOUTH AT BEDTIME 90 tablet 3 12/21/2023 Active Start: 02-05-2023 take 1 tablet by gab th at bedtime simvastatin (Zocor) 40 MG tablet Indications: Pure hypertriglyceridemia (CMS/HCC) Take 1 tablet (40 mg) by mouth at bedtime. 90 tablet 3 02/05/2023 Active Start: 06-08-[address] art Date: 06/08/19 Status: Ordered Spiriva HandiHaler (1 source) Start: 03-26-2020 Spiriva HandiH aler microgram, Inhalation, Daily, Refills(s) 0 Start Date: 03/26/20 Status: Ordered tamsulosin hydrochloride 0.4 mg oral capsule (6 sources) alpha-Adrenergic Dann Start: 01-19-2024 tamsulosin (Flomax) 0.4 MG 24 hr capsule Indications: BPH without obstruction/lower urinary tract symptoms TAKE 1 CAPSULE BY MOUTH ONCE DAILY 30 MINUTES AFTER THE SAME MEAL 90 capsule 3 01/19/2024 Active Start: 03-05-2023 tamsulosin (Fl omax) 0.4 MG 24 hr capsule Indications: BPH without obstruction/lower urinary tract symptoms TAKE ONE (1) CAPSULE BY MOUTH ONCE DAILY 30 MINUTES AFTER THE SAME MEAL 30 capsule 10 03/05/2023 Active Start: 06-08-2019 tamsulosin mg Start Date: 06/08/19 Status: Ordered tiotropium 0.018 mg inhalation powder (5 sources) Anticholinergic Start: 12-21-2023 take 1 capsule by inhalation in the morning tiotropium (Spiriva HandiHaler) 18 MCG inhalation capsule Indications: 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) (CMS/HCC) Place 1 capsule (18 mcg) into inhaler and inhale in the morning. 30 capsule 10 12/21/2023 Active Start: 02-05-2023 take 1 capsule by in halation in the morning Spiriva HandiHaler 18 MCG inhalation capsule Indications: 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) Place 1 capsule (18 mcg) into inhaler and inhale in the morning. 90 capsule 3 02/05/2023 Active tiZANidine 4 mg oral tablet (6 sources) Central alpha-2 Adrenergic Agonist Start: 01-19-2024 take 1 tablet by mouth twice daily as needed tiZANidine (Zanaflex) 4 MG tablet Indications: Chronic pain syndrome TAKE ONE TABLET BY MOUTH TWICE DAILY NEEDED 180 tablet 3 01/19/2024 Active Start: 03-05-2023 take 1 tablet by gab th twice daily as needed tiZANidine (Zanaflex) 4 MG tablet Indications: Chronic pain syndrome TAKE ONE (1) TABLET BY MOUTH TWICE DAILY NEEDED 60 tablet 10 03/05/2023 Active Start: 06-08-2019 Zanaflex Start Date: 06/08/19 Status: Ordered traZODone hydrochloride 100 mg oral tablet (5 sources) Serotonin Reuptake Inhibitor Start: 12-31-2023 take 1 tablet by mouth once daily at bedtime as needed traZODone (Desyrel) 100 MG tablet Indications: Essential hypertension, benign (CMS/HCC) TAKE 1 TABLET BY MOUTH EVERY DAY AT BEDTIME NEEDED 90 tablet 3 12/31/2023 Active Start: 07-10-2023 take 1 tablet by gab th once daily at bedtime as needed traZODone (Desyrel) 100 MG tablet Indications: Essential hypertension, benign (CMS/HCC) TAKE 1 TABLET BY MOUTH EVERY DAY AT BEDTIME NEEDED 90 tablet 3 07/10/2023 Active Ambien (1 source) gamma-Aminobutyric Acid-ergic Agonist Start: 06-08-2019 Ambien Start Date: 06/08/19 Status: Ordered Problems Active Problems Problem Classification Problem Date Documented Date Episodic/Chronic Acute myocardial infarction (1 source) Myocardial infarction 02-06-2021 Chronic Cardiac and circulatory congenital anomalies (4 sources) Atrial septal defect; Translations: [ASD (atrial septal defect)] Onset: 4 07-07-2024 Chronic Cardiac dysrhythmias (13 sources) Unspecified atrial fibrillation; Translations: [Paroxysmal atrial fibrillation] Onset: 2 02-09-2023 Chronic Cardiac dysrhythmias (2 sources) Tachycardia, unspecified; Translations: [Tachycardia, unspecified] Onset: 4 Episodic Chronic kidney disease (5 sources) Chronic kidney disease stage 3A ; Translations: [Stage 3a chronic kidney disease (HCC)] Onset: 3 Resolved: 4 02-09-2023 Chronic Chronic obstructive pulmonary disease and bronchiectasis (12 sources) Chronic obstructive pulmonary disease, unspecified; Translations: [Chronic obstructive lung disease] Onset: 2 Chronic Coagulation and hemorrhagic disorders (3 sources) Hypercoagulability state; Translations: [Other primary thrombophilia] Onset: 4 12-31-2023 Chronic Congestive heart failure; nonhypertensive (11 sources) Chronic combined systolic (congestive) and diastolic (congestive) heart failure; Translations: [Chronic combined systolic and diastolic heart failure] Onset: 2 02-09-2023 Chronic Coronary atherosclerosis and other heart disease (9 sources) Atherosclerotic heart disease of tribe coronary artery without angina pectoris; Translations: [Coronary atherosclerosis] Onset: 2 02-09-2023 Chronic Disorders of lipid metabolism (9 sources) Pure hypercholesterolemia, unspecified; Translations: [Mixed hyperlipidemia] Onset: 2 02-09-2023 Chronic Esophageal disorders (6 sources) Gastroesophageal reflux disease without esophagitis; Translations: [Gastro-esophageal reflux disease without esophagitis] Onset: 3 02-09-2023 Chronic Essential hypertension (16 sources) Essential (primary) hypertension; Translations: [Essential hypertension] Onset: 2 Chronic Genitourinary symptoms and ill-defined conditions (1 source) Post-micturition incontinence 02-06-2021 Chronic Genitourinary symptoms and ill-defined conditions (3 sources) Increased frequency of urination; Translations: [Microscopic hematuria] 02-06-2021 Episodic Hyperplasia of prostate (6 sources) Benign prostatic hyperplasia; Translations: [Benign prostatic hyperplasia without lower urinary tract symptoms] Onset: 3 02-09-2023 Chronic Hypertension with complications and secondary hypertension (1 source) Hypertensive heart disease with heart failure; Translations: [HTN HEART DISEASE W/HEART FAIL] Onset: 2 Chronic Mycoses (1 source) Onychomycosis; Translations: [Tinea unguium] 10-15-2023 Episodic Nutritional deficiencies (1 source) Vitamin D deficiency, unspecified; Translations: [VITAMIN D DEFICIENCY UNSPECIFIED] Onset: 2 Chronic Osteoarthritis (1 source) Degenerative joint disease [...] [CHRONIC PAIN SYNDROME] Onset: 2 Chronic Other nervous system disorders (8 sources) Chronic pain syndrome; Translations: [Chronic pain syndrome] Onset: 3 02-09-2023 Chronic Other nervous system disorders (5 sources) Peripheral nerve disease ; Translations: [Polyneuropathy, unspecified] Onset: 3 02-09-2023 Chronic Other nervous system disorders (1 source) Polyneuropathy; Translations: [Other specified polyneuropathies] 10-15-2023 Chronic Other nutritional; endocrine; and metabolic disorders (1 source) Hyperuricemia without signs of inflammatory arthritis and tophaceous disease; Translations: [HU W/O SIGNS IA AND TOPHACEOUS DZ] Onset: 3 Episodic Other nutritional; endocrine; and metabolic disorders (7 sources) Hyperuricemia; Translations: [Hyperuricemia without signs of inflammatory arthritis and tophaceous disease] Onset: 3 02-09-2023 Episodic Peripheral and visceral atherosclerosis (7 sources) Peripheral vascular disease; Translations: [Peripheral vascular disease, unspecified] Onset: 3 02-09-2023 Chronic Residual codes; unclassified (1 source) H/O: anticoagulant therapy 02-06-2021 Episodic Residual codes; unclassified (2 sources) Localized edema; Translations: [Localized edema] Onset: 4 Episodic Residual codes; unclassified (2 sources) Personal history of other drug therapy; Translations: [Personal history of other drug therapy] Onset: 4 Episodic Thyroid disorders (5 sources) Thyroid nodule; Translations: [Nontoxic single thyroid nodule] Onset: 3 02-09-2023 Chronic Unclassified (2 sources) Permanent atrial fibrillation; Translations: [Permanent atrial fibrillation] Onset: 4 Past or Other Problems Problem Classification Problem Date Documented Da te Episodic/Chronic Acute and unspecified renal failure (1 source) Acute kidney failure, unspecified; Translations: [ACUTE KIDNEY FAILURE UNSPECIFIED] Onset: 07-13-2022 Episodic Administrative/social admission (5 sources) Patient encounter status; Translations: [Other specified counseling] Onset: 02-12-2023 Resolved: 09-10-2023 09-10-2023 Episodic Deficiency and other anemia (1 source) Anemia, unspecified; Translations: [ANEMIA UNSPECIFIED] Onset: 07-13-2022 Episodic Mood disorders (3 sources) Mood disorders Onset: 04-05-2024 04-05-2024 Other aftercare (1 source) 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; Translations: [OTH TRAVEL RN CURRENT DRUG THERAPY] Onset: 07-13-2022 Episodic Other gastrointestinal disorders (5 sources) Constipation; Translations: [Constipation, unspecified] Onset: 02-09-2023 Resolved: 09-10-2023 09-10-2023 Episodic Other screening for suspected conditions (not mental disorders or infectious disease) (10 sources) Encounter for screening for malignant neoplasm of prostate; Translations: [Raised prostate specific antigen] Onset: 07-08-2022 Episodic Pulmonary heart disease (6 sources) Pulmonary embolism; Translations: [Other pulmonary embolism without acute cor pulmonale] Onset: 02-09-2023 02-09-2023 Episodic Residual codes; unclassified (1 source) Edema, unspecified; Translations: [EDEMA UNSPECIFIED] Onset: 02-21-2022 Episodic Residual codes; unclassified (5 sources) Insomnia; Translations: [Insomnia, unspecified] Onset: 02-09-2023 02-09-2023 Episodic Results Test Name Value Interpretation Reference Range Facility BASIC METABOLIC PANELon 11-0 Anion gap [Moles/Vol] 9 mmol/L Normal 7-20 [facility] Comment on above: Performed By: #### L [id number] ####[facility] ([facility])[address] [place] [address] Calcium [Mass/Vol] 9.0 mg/dL Normal 8.6-10.3 [facility] Comment on above: Performed By: #### L [id number] ####[facility] ([facility] [place] [address] Chloride [Moles/Vol] 103 mmol/L Normal 98-107 [facility] Comment on above: Performed By: #### L [id number] ####[facility] ([facility])[address] [place] [address] CO2 [Moles/Vol] 32 mmol/L High 21-31 [facility] Comment on above: Performed By: #### L [id number] ####[facility] ([facility])[address] [place] [address] Creatinine [Mass/Vol] 1.69 mg/dL High 0.70-1.30 [facility] Comment on above: Performed By: #### L [id number] ####[facility] ([facility])[address] [place] [address] GLOMERULAR FILTRATION RATE ML/MIN/1.73 SQ M.PREDICTED 41.3 mL/min/1.73m*2 Low >60.0 [facility] Comment on above: Result Comment: The [facility]???s estimated glomerular filtration rate (eGFR) will no longer include consideration of race in its calculation. The National Kid[employer] Foundation???s eGFR Task Force developed new recommendations for the estimation of the glomerular filtration rate in the [place] They recommend immediate implementation of the new equation refit without the race variable in all laboratories because the calculation does not include race. In addition to not including race in the calculation and reporting, it included diversity in its development, and has acceptable performance characteristics and potential consequences that do not disproportionately affect any one group of individuals. Performed By: #### L [id number] ####[facility] ([facility])[address] [place] [address] Glucose [Mass/Vol] 115 mg/dL High 70-100 [facility] Comment on above: Performed By: #### L [id number] ####[facility] ([facility])[address] [place] [address] Potassium [Moles/Vol] 3.9 mmol/L Normal 3.5-5.1 [facility] Comment on above: Performed By: #### L [id number] ####[facility] ([facility])[address] [place] [address] Sodium [Moles/Vol] 140 mmol/L Normal 136-145 [facility] Comment on above: Performed By: #### L [id number] ####[facility] ([facility])[address] [place] [address] Urea nitrogen [Mass/Vol] 19 mg/dL Normal 7-25 [facility] Comment on above: Performed By: #### L [id number] ####[facility] ([facility])[address] [place] [address] UREA NITROGEN/CREATININE (MASS RATIO) IN SER/PLAS 11.2 Normal [facility] Comment on above: Performed By: #### L [id number] ####[facility] ([facility] [address] CBCon 07-04-2024 Erythrocyte distribution width (RBC) [Ratio] 14.6 % Normal 11.5-15.0 [facility] Comment on above: Performed By: #### L [id number] ####[facility] ([facility])[address] [address] ERYTHROCYTE MEAN CORPUSCULAR HEMOGLOBIN CONCENTRATION (G/DL) BY AUTOMATED 31.8 g/dL Low 32.0-35.0 [facility] Comment on above: Performed By: #### L [id number] ####[facility] ([facility])[address] [address] Hematocrit (Bld) [Volume fraction] 39.6 % Normal 39.0-55.0 [facility] Comment on above: Performed By: #### L [id number] ####[facility] ([facility])[address] [place] [address] Hemoglobin (Bld) [Mass/Vol] 12.6 g/dL Low 13.0-17.0 [facility] Comment on above: Performed By: #### L [id number] ####[facility] ([facility])[address] [address] MCH (RBC) [Entitic mass] 30.6 pg Normal 27.0-33.0 [facility] Comment on above: Performed By: #### L [id number] ####[facility] ([facility])[address] [address] MCV (RBC) [Entitic vol] 96.1 fL Normal 82.0-98.0 [facility] Comment on above: Performed By: #### L [id number] ####[facility] ([facility])[address] [place] [address] PLATELETS (10*3/UL) IN BLOOD AUTOMATED COUNT 110 10*3/uL Low 150-400 [facility] Comment on above: Performed By: #### L [id number] ####[facility] ([facility])[address] [place] [address] RBC (Bld) [#/Vol] 4.12 10*6/uL Low 4.20-5.70 [facility] Comment on above: Performed By: #### L [id number] ####[facility])[address] [place] [address] WBC (Bld) [#/Vol] 5.43 10*3/uL Normal 4.00-10.60 [facility] Comment on above: Performed By: #### L [id number] ####[facility] [place] [address] HPon 07-04-2024 - Attestation signed by Seamus Joyce MD at 07/04/2024 12:55 PM I personally saw and examined the patient on the same date of service as resident/fellow Dr Estrada. I discussed the findings and therapeutic plan with the resident/fellow Dr estrada. I agree with the documentation, except for any edits/updates below. Teaching Physician's Revisions: None Seamus Joyce MD, LOCATED WITHIN [facility] History Of Present Illness Kei Acuna is a 78 y.o. male presenting for scheduled PAVAN guided DCCV. Patient with history of Chronic A-fib/Flutter, on metoprolol for rate control and on Eliquis for anticoagulation. Ventricular rate has been fast last visit on 3-day monitor. He did not tolerate higher dose of metoprolol. He has also a history of cardiomyopathy, ejection fraction 45 to 50% on echo March 2024, probably due to A-fib/flutter Chronic systolic congestive heart failure with recent admission with acute exacerbation. He was seen in the clinic in 06/03/24 and was started on amiodarone 400 mg p.o. twice daily and his metoprolol was increased to 25 mg 3 times daily and stop the losartan to reduce the ventricular rate leticia, in preparation to attempt to cardiovert him to sinus rhythm today Patient denies feeling any palpitation. He has exertional dyspnea but it did not change since last visit. He denies orthopnea or paroxysmal nocturnal dyspnea. He denies dizziness. He continues to have legs edema which is better in the morning. He is trying to sleep in the bed not in the recliner Past Medical History He has a past medical history of Atrial flutter (CMS/HCC), CAD (coronary artery disease), [place] (myocardial infarction) (CMS/HCC), and Pulmonary embolism (CMS/HCC). Surgical History He has a past surgical history that includes Ankle surgery (Left). Social History He reports that he has never smoked. He has never used smokeless tobacco. He reports that he does not drink alcohol. No history on file for drug use. Allergies Patient has no known allergies. Medications (Not in a hospital admission) ECG 12 lead 06/03/2024 [id number] Final Review of Systems 12 ROS negative except as in HPI Physical Exam 05/09/2024 2:11 PM 06/03/2024 9:56 AM 07/04/2024 10:59 AM Vitals Systolic 132 98 117 Diastolic 74 71 78 Heart Rate 105 116 69 Resp 16 Height (in) 1.88 m (6' 2 ) 1.88 m (6' 2 ) Weight (lb) 214 202 BMI 27.48 kg/m2 25.94 kg/m2 BSA (m2) 2.25 m2 2.19 m2 Visit Report Report Report GENERAL: alert and oriented x3, well developed, in no acute distress. HEAD: atraumatic, normocephalic. EYES: LARRY, EOMI. NECK: trachea midline, no JVD present, no carotid bruits present. CARDIAC: S1, S2 present. Mildly tachycardic, irregular irregularity, no murmur, rubs, or gallops. RESPIRATORY: CTAB, no increased effort of breathing, no rales, rhonchi, or wheezing. ABDOMEN: soft, nontender, nondistended. EXTREMITIES: +3 edema with skin discoloration consistent with venous stasis NEURO: strength/sensation equal and symmetric in bilateral upper and lower extremities. PSYCH: appropriate mood, affect, and judgement. Relevant Results Reviewed in EMR Encounter Date: 07/04/24 ECG 12 lead Result Value Ventricular Rate 72 QRS DURATION 150 QT Interval 456 QTC CALCULATION(BAZETT) 499 R-[place] -73 T Wave [place] 84 Impression Atrial fibrillation with premature ventricular or aberrantly conducted complexes Left axis deviation Non-specific intra-ventricular conduction block Minimal voltage criteria for LVH, may be normal variant ( [place] product ) Abnormal ECG No previous ECGs available Assessment/Plan Chronic A-fib/Flutter,History of cardiomyopathy, Chronic systolic congestive heart failure with recent admission with acute exacerbation. Legs edema, History of stroke in 2020 when he was found to have atrial flutter/fib Hypertension , Hyperlipidemia, Possible sleep apnea Chronic kidney disease COPD - will proceed with PAVAN guided DCCV as planned. Procedures' details, risks and benefits discussed with the patient and he's agreeable -continue home meds -further recs pending procedures' results [facility] NURSNOTEon 07-04-2024 NURSNOTE Bedside swallow stud y completed and passed. [facility] NURSNOTE RN educated pt on d/ c instructions. This included: site care, limited physical activity, resume normal diet, future appointments, medications, and moderate sedation instructions. RN educated pt on when to notify physician and when to go to the hospital. RN encouraged pt to voice any questions or concerns, and answered any questions or concerns if pt verbalized. Pt was wheeled off of unit with all of belongings. [facility] Orders Onlyon 06-27-2024 Orders Only [id number] Kei Acuna 1945 M Date Provider Department Center 06/27/2024 [facility] Family History Problem Relation Age of Onset No Known Problems Mother No Known Problems Father Family Status - Relation Status Age at Mother Father [facility] Office Visiton 06-03-2024 Follow-up visit [id number] Kei Acuna 1945 M Date Provider Department Center 06/03/2024 SEAMUS RAMON Family History Problem Relation Age of Onset No Known Problems Mother No Known Problems Father Family Status - Relation Status Age at Mother Father Level of Service:47676 MI OFFICE/OUTPATIENT ESTABLISHED MOD MDM 30 MIN Reason for Visit and Comments: Atrial Fibrillation [80] Hyperlipidemia [182] Hypertension [870029] - Pt is here for a one month follow up. Normal [facility] Orders Onlyon 06-03-2024 Orders Only [id number] KalpanaKei Barnes 1945 M Date Provider Department Center 06/03/2024 JEANNIE HENDRIX GORDON [place] Family History Problem Relation Age of Onset No Known Problems Mother No Known Problems Father Family Status - Relation Status Age at Mother Father [facility] 36on 05-31-2024 36 Patient called just now to make us aware that after taking 50mg of metoprolol this morning his BP dropped to 74/45, HR 83. He is lightheaded. I advised him to drink lots of water and eat a little salt. His said she will recheck his BP soon and then again in an hour or so. I told him to go back to metoprolol 25mg for now and to continue to monitor BP/HR. I asked that they call me back if BP doesn't improve. They both verbalized understanding. [facility] 36on 05-30-[address] Joyce, s/p 3 day Holter monitor- increase metoprolol to 50mg BID. Patient's made aware. They will continue to keep track of BP. She verbalized understanding. Normal [facility] Telephoneon 05-30-2024 Telephone [id number] KalpanaKei 1945 [facility] Provider Department Center 05/30/2024 DANNA FREEDMAN Family History Problem Relation Age of Onset No Known Problems Mother No Known Problems Father Family Status - Relation Status Age at Mother Father Normal [facility] Office Visiton 05-09-2024 Follow-up visit [id number] Kei Acuna 1945 [facility] Provider Department Center 05/09/2024 [id number]-LIHTDISEAMUS BHAT CARD [facility] Family History Problem Relation Age of Onset No Known Problems Mother No Known Problems Father Family Status - Relation Status Age at Mother Father Level of Service:35558 MI OFFICE/OUTPATIENT NEW MODERATE MDM 45 MINUTES Normal [facility] CBC AUTO DIFFon 11-10-2022 BASO # 0.0 103/ul Normal 0.0-0.1 [facility] Comment on above: Performed By: #### C BC #### [facility] [address] [address] [address] Karen Marie Basophils/100 WBC (Bld) 0.4 % Normal 0.2-2.0 [facility] Comment on above: Performed By: #### C BC #### [facility] [address] [place] [address] Dr. Karen Marie EO # 0.1 103/ul Normal 0.0-0.7 [facility] Comment on above: Performed By: #### C BC #### [facility] [address] [address] [address] Karen Marie Eosinophils/100 WBC (Bld) 1.9 % Normal 0.9-7.0 [facility] Comment on above: Performed By: #### C BC #### [facility] [address] [place] [address] Dr. Karen Marie Erythrocyte distribution width (RBC) [Ratio] 16.1 % Critically high 11.0-15.0 [facility] Comment on above: Performed By: #### C BC #### [facility] [address] [place] [address] Dr. Karen Marie Hematocrit (Bld) [Volume fraction] 42.5 % Normal 42.0-54.0 [facility] Comment on above: Performed By: #### C BC #### [facility] [address] [place] [address] Dr. Karen Marie Hemoglobin (Bld) [Mass/Vol] 13.5 g/dL Critically low 14.0-18.0 [facility] Comment on above: Performed By: #### C BC #### [facility] [address] [place] [address] Dr. Karen Marie IG # 0.03 10e3/ul Normal 0.00-0.03 [facility] Comment on above: Performed By: #### C BC #### [facility] [address] [place] [address] Dr. Karen Marie IG % 0.4 % Normal 0.0-0.5 [facility] Comment on above: Performed By: #### C BC #### [facility] [address] [place] [address] Dr. Karen Marie LYMPH # 1.7 103/ul Normal 1.2-3.8 [facility] Comment on above: Performed By: #### C BC #### [facility] [address] [place] [address] Dr. Karen Marie Lymphocytes/100 WBC (Bld) 22.3 % Normal 20.5-60.0 [facility] Comment on above: Performed By: #### C BC #### [facility] [address] [place] [address] Dr. Karen Marie MANUAL DIFF REQ NO Normal [facility] Comment on above: Performed By: #### C BC #### [facility] [address] [place] [address] Dr. Karen Marie MCH (RBC) [Entitic mass] 27.8 pg Normal 25.9-34.0 [facility] Comment on above: Performed By: #### C BC #### [facility] [address] [place] [address] Dr. Karen Marie MCHC (RBC) [Mass/Vol] 31.8 g/dL Normal 29.9-35.2 [facility] Comment on above: Performed By: #### C BC #### [facility] [address] [place] [address] Dr. Karen Marie MCV (RBC) [Entitic vol] 87.4 fL Normal 80.0-94.0 [facility] Comment on above: Performed By: #### C BC #### [facility] [address] [place] [address] Dr. Karen Marie MONO # 0.9 103/ul Critically high 0.3-0.8 [facility] Comment on above: Performed By: #### C BC #### [facility] [address] [place] [address] Dr. Karen Marie Monocytes/100 WBC (Bld) 11.4 % Normal 1.7-12.0 [facility] Comment on above: Performed By: #### C BC #### [facility] [address] [place] [address] Dr. Karen Marie NEUT # 4.7 103/ul Normal 1.4-6.5 [facility] Comment on above: Performed By: #### C BC #### [facility] [address] [place] [address] Dr. Karen Marie Neutrophils/100 WBC (Bld) 63.6 % Normal 43.0-75.0 [facility] Comment on above: Performed By: #### C BC #### [facility] [address] [place] [address] Dr. Karen Marie Platelet mean volume (Bld) [Entitic vol] 11.9 fL Normal 9.5-13.5 [facility] Comment on above: Performed By: #### C BC #### [facility] [address] [place] [address] Dr. Karen Marie PLT 162 103/ul Normal 150-450 [facility] Comment on above: Performed By: #### C BC #### [facility] [address] [place] [address] Dr. Karen Marie RBC 4.86 106/ul Normal 4.70-6.10 [facility] Comment on above: Performed By: #### C BC #### [facility] [address] [place] [address] Dr. Karen Marie WBC 7.4 103/ul Normal 4.0-11.0 [facility] Comment on above: Performed By: #### C BC #### [facility] [address] [place] [address] Dr. Karen Marie PROF 14(COMP METB)on 023 Albumin [Mass/Vol] 3.8 g/dL Normal 3.4-5.0 [facility] Comment on above: Performed By: #### P SAD, FERR, FETIBC #### [facility] [address] [place] [address] Dr. Karen Marie Albumin/Globulin [Mass ratio] 1.1 {ratio} Normal [facility] Comment on above: Performed By: #### P SAD, FERR, FETIBC #### [facility] [address] [address] [address] Karen Marie ALP [Catalytic activity/Vol] 79 U/L Normal 46-116 [facility] Comment on above: Performed By: #### P SAD, FERR, FETIBC #### [facility] [address] [place] [address] Dr. Karen Marie ALT [Catalytic activity/Vol] 15 U/L Critically low 16-63 [facility] Comment on above: Performed By: #### P SAD, FERR, FETIBC #### [facility] [address] [place] [address] Dr. Karen Marie Anion gap [Moles/Vol] 12.3 mmol/L Normal [facility] Comment on above: Performed By: #### P SAD, FERR, FETIBC #### [facility] [address] [place] [address] Dr. Karen Marie AST [Catalytic activity/Vol] 17 U/L Normal 15-37 [facility] Comment on above: Performed By: #### P SAD, FERR, FETIBC #### [facility] [address] [place] [address] Dr. Karen Marie Bilirubin [Mass/Vol] 0.9 mg/dL Normal 0.2-1.0 [facility] Comment on above: Performed By: #### P SAD, FERR, FETIBC #### [facility] [address] [place] [address] Dr. Karen Marie Calcium [Mass/Vol] 9.3 mg/dL Normal 8.5-10.1 [facility] Comment on above: Performed By: #### P SAD, FERR, FETIBC #### [facility] [address] [address] [address] Karen Marie Chloride [Moles/Vol] 103 mmol/L Normal 98-107 [facility] Comment on above: Performed By: #### P SAD, FERR, FETIBC #### [facility] [address] [address] [address] Karen Marie CO2 [Moles/Vol] 30.7 mmol/L Normal 21.0-32.0 [facility] Comment on above: Performed By: #### P SAD, FERR, FETIBC #### [facility] [address] [address] [address] Karen Marie Creatinine [Mass/Vol] 1.37 mg/dL Critically high 0.70-1.30 [facility] Comment on above: Performed By: #### P SAD, FERR, FETIBC #### [facility] [address] [address] [address] Karen Marie EGFR-AF CHINESE >60 Normal >=60 [facility] Comment on above: Performed By: #### P SAD, FERR, FETIBC #### [facility] [address] [address] [address] Karen Marie EGFR-NON AF CHINESE 51 mL/min/1.73m2 Critically low >=60 [facility] Comment on above: Performed By: #### P SAD, FERR, FETIBC #### [facility] [address] [address] [address] Karen Marie Globulin (S) [Mass/Vol] 3.5 g/dL Normal [facility] Comment on above: Performed By: #### P SAD, FERR, FETIBC #### [facility] [address] [address] [address] Karen Marie Glucose [Mass/Vol] 102 mg/dL Normal 74-106 [facility] Comment on above: Performed By: #### P SAD, FERR, FETIBC #### [facility] [address] [address] [address] Karen Marie Potassium [Moles/Vol] 4.0 mmol/L Normal 3.5-5.1 [facility] Comment on above: Performed By: #### P SAD, FERR, FETIBC #### [facility] [address] [place] [address] Dr. Karen Marie Protein [Mass/Vol] 7.3 g/dL Normal 6.4-8.2 [facility] Comment on above: Performed By: #### P SAD, FERR, FETIBC #### [facility] [address] [place] [address] Dr. Karen Marie Sodium [Moles/Vol] 142 mmol/L Normal 136-145 [facility] Comment on above: Performed By: #### P SAD, FERR, FETIBC #### [facility] [address] [place] [address] Dr. Karen Marie Urea nitrogen [Mass/Vol] 16.0 mg/dL Normal 7.0-18.0 [facility] Comment on above: Performed By: #### P SAD, FERR, FETIBC #### [facility] [address] [place] [address] Dr. Karen Marie Urea nitrogen/Creatinine [Mass ratio] 11.7 mg/mg Normal [facility] Comment on above: Performed By: #### P SAD, FERR, FETIBC #### [facility] [address] [place] [address] Dr. Karen Marie URIC ACID SERUMon 11-10-2022 Urate [Mass/Vol] 8.9 mg/dL Critically high 3.5-7.2 [facility] Comment on above: Performed By: #### P SAD, FERR, FETIBC #### [facility] [address] [place] [address] Dr. Karen Marie CBC AUTO DIFFon 07-08-2022 BASO # 0.0 103/ul Normal 0.0-0.1 [facility] Comment on above: Performed By: #### P SAD, FERR, FETIBC #### [facility] [address] [place] [address] Dr. Karen Marie Basophils/100 WBC (Bld) 0.4 % Normal 0.2-2.0 [facility] Comment on above: Performed By: #### P SAD, FERR, FETIBC #### [facility] [address] [place] [address] Dr. Karen Marie EO # 0.1 103/ul Normal 0.0-0.7 [facility] Comment on above: Performed By: #### P SAD, FERR, FETIBC #### [facility] [address] [place] [address] Dr. Karen Marie Eosinophils/100 WBC (Bld) 1.7 % Normal 0.9-7.0 [facility] Comment on above: Performed By: #### P SAD, FERR, FETIBC #### [facility] [address] [place] [address] Dr. Karen Marie Erythrocyte distribution width (RBC) [Ratio] 13.6 % Normal 11.0-15.0 [facility] Comment on above: Performed By: #### P SAD, FERR, FETIBC #### [facility] [address] [place] [address] Dr. Karen Marie Hematocrit (Bld) [Volume fraction] 43.3 % Normal 42.0-54.0 [facility] Comment on above: Performed By: #### P SAD, FERR, FETIBC #### [facility] [address] [place] [address] Dr. Karen Marie Hemoglobin (Bld) [Mass/Vol] 14.3 g/dL Normal 14.0-18.0 [facility] Comment on above: Performed By: #### P SAD, FERR, FETIBC #### [facility] [address] [place] [address] Dr. Karen Marie IG # 0.01 10e3/ul Normal 0.00-0.03 [facility] Comment on above: Performed By: #### P SAD, FERR, FETIBC #### [facility] [address] [place] [address] Dr. Karen Marie IG % 0.1 % Normal 0.0-0.5 [facility] Comment on above: Performed By: #### P SAD, FERR, FETIBC #### [facility] [address] [address] [address] Karen Marie LYMPH # 1.9 103/ul Normal 1.2-3.8 [facility] Comment on above: Performed By: #### P SAD, FERR, FETIBC #### [facility] [address] [place] [address] Dr. Karen Marie Lymphocytes/100 WBC (Bld) 27.7 % Normal 20.5-60.0 [facility] Comment on above: Performed By: #### P SAD, FERR, FETIBC #### [facility] [address] [place] [address] Dr. Karen Marie MANUAL DIFF REQ NO Normal [facility] Comment on above: Performed By: #### P SAD, FERR, FETIBC #### [facility] [address] [place] [address] Dr. Karen Marie MCH (RBC) [Entitic mass] 29.9 pg Normal 25.9-34.0 [facility] Comment on above: Performed By: #### P SAD, FERR, FETIBC #### [facility] [address] [place] [address] Dr. Karen Marie MCHC (RBC) [Mass/Vol] 33.0 g/dL Normal 29.9-35.2 [facility] Comment on above: Performed By: #### P SAD, FERR, FETIBC #### [facility] [address] [place] [address] Dr. Karen Marie MCV (RBC) [Entitic vol] 90.6 fL Normal 80.0-94.0 [facility] Comment on above: Performed By: #### P SAD, FERR, FETIBC #### [facility] [address] [place] [address] Dr. Karen aMrie MONO # 0.8 103/ul Normal 0.3-0.8 [facility] Comment on above: Performed By: #### P SAD, FERR, FETIBC #### [facility] [address] [place] [address] Dr. Karen Marie Monocytes/100 WBC (Bld) 11.1 % Normal 1.7-12.0 [facility] Comment on above: Performed By: #### P SAD, FERR, FETIBC #### [facility] [address] [place] [address] Dr. Karen Marie NEUT # 4.1 103/ul Normal 1.4-6.5 [facility] Comment on above: Performed By: #### P SAD, FERR, FETIBC #### [facility] [address] [place] [address] Dr. Karen Marie Neutrophils/100 WBC (Bld) 59.0 % Normal 43.0-75.0 [facility] Comment on above: Performed By: #### P SAD, FERR, FETIBC #### [facility] [address] [place] [address] Dr. Karen Marie Platelet mean volume (Bld) [Entitic vol] 11.3 fL Normal 9.5-13.5 [facility] Comment on above: Performed By: #### P SAD, FERR, FETIBC #### [facility] [address] [place] [address] Dr. Karen Marie PLT 175 103/ul Normal 150-450 [facility] Comment on above: Performed By: #### P SAD, FERR, FETIBC #### [facility] [address] [place] [address] Dr. Karen Marie RBC 4.78 106/ul Normal 4.70-6.10 [facility] Comment on above: Performed By: #### P SAD, FERR, FETIBC #### [facility] [address] [place] [address] Dr. Karen Marie WBC 7.0 103/ul Normal 4.0-11.0 [facility] Comment on above: Performed By: #### P SAD, FERR, FETIBC #### [facility] [address] [place] [address] Dr. Karen Marie FERRITINon 07-08-2022 Ferritin [Mass/Vol] 43.0 ng/mL Normal 26.0-388.0 [facility] Comment on above: Performed By: #### P SAD, FERR, FETIBC #### [facility] [address] [address] [address] Karen Marie IRON AND TIBCon 07-08-2022 % SATURATION 12.7 % Normal [facility] Comment on above: Performed By: #### P SAD, FERR, FETIBC #### [facility] [address] [address] [address] Karen Marie Iron [Mass/Vol] 46.0 ug/dL Critically low 65.0-175.0 [facility] Comment on above: Performed By: #### P SAD, FERR, FETIBC #### [facility] [address] [address] [address] Karen Marie TIBC DIRECT 363.0 ug/dL Normal 250.0-450.0 [facility] Comment on above: Performed By: #### P SAD, FERR, FETIBC #### [facility] [address] [place] [address] Dr. Karen Marie LIPID PROFILEon 07-08-2022 CHOL-HDL RATIO NORM SEE BELOW Normal [facility] Comment on above: Result Comment: 3.3 - 4.4 LOW RISK 4.4 - 7.1 AVERAGE RISK 7.1 - 11.0 MODERATE RISK >11.0 HIGH RISK Performed By: #### L IPID, CMP, URIC, TSH #### [facility] [address] [place] [address] Dr. Karen Marie Cholesterol [Mass/Vol] 131 mg/dL Normal <=200 [facility] Comment on above: Performed By: #### L IPID, CMP, URIC, TSH #### [facility] [address] [place] [address] Dr. Karen Marie Cholesterol in HDL [Mass/Vol] 52 mg/dL Normal 40-60 [facility] Comment on above: Performed By: #### L IPID, CMP, URIC, TSH #### [facility] [address] [address] [address] Karen Marie Cholesterol in LDL [Mass/Vol] 59.2 mg/dL Normal [facility] Comment on above: Performed By: #### L IPID, CMP, URIC, TSH #### [facility] [address] [address] [address] Karen Marie Cholesterol.total/Chol esterol in HDL [Mass ratio] 2.5 {ratio} Normal [facility] Comment on above: Performed By: #### L IPID, CMP, URIC, TSH #### [facility] [address] [address] [address] Karen Marie HDL NORMAL > or = 60 mg/dl - LO W CARDIOVASCULAR RISK <40 mg/dl - HIGH CARDIOVASCULAR RISK Normal [facility] Comment on above: Performed By: #### L IPID, CMP, URIC, TSH #### [facility] [address] [address] [address] Karen Marie LDL CALC NORMAL SEE BELOW Normal [facility] Comment on above: Result Comment: <100 mg/dl OPTIMAL 100 - 129 mg/dl NEAR OR ABOVE OPTIMAL 130 - 159 mg/dl BORDERLINE HIGH 160 - 189 mg/dl HIGH >190 mg/dl VERY HIGH Performed By: #### L IPID, CMP, URIC, TSH #### [facility] [address] [address] [address] Karen Marie Triglyceride [Mass/Vol] 99 mg/dL Normal <=150 [facility] Comment on above: Performed By: #### L IPID, CMP, URIC, TSH #### [facility] [address] [address] [address] Karen Marie VLDL CALC 19.8 mg/dL Normal [facility] Comment on above: Performed By: #### L IPID, CMP, URIC, TSH #### [facility] [address] [address] [address] Karen Marie PROF 14(COMP METB)on 022 Albumin [Mass/Vol] 3.5 g/dL Normal 3.4-5.0 [facility] Comment on above: Performed By: #### L IPID, CMP, URIC, TSH #### [facility] [address] [address] [address] Karen Marie Albumin/Globulin [Mass ratio] 0.9 {ratio} Normal [facility] Comment on above: Performed By: #### L IPID, CMP, URIC, TSH #### [facility] [address] [place] [address] Dr. Karen Marie ALP [Catalytic activity/Vol] 83 U/L Normal 46-116 [facility] Comment on above: Performed By: #### L IPID, CMP, URIC, TSH #### [facility] [address] [place] [address] Dr. Karen Marie ALT [Catalytic activity/Vol] 13 U/L Critically low 16-63 [facility] Comment on above: Performed By: #### L IPID, CMP, URIC, TSH #### [facility] [address] [place] [address] Dr. Karen Marie Anion gap [Moles/Vol] 6.9 mmol/L Normal [facility] Comment on above: Performed By: #### L IPID, CMP, URIC, TSH #### [facility] [address] [place] [address] Dr. Karen Marie AST [Catalytic activity/Vol] 25 U/L Normal 15-37 [facility] Comment on above: Performed By: #### L IPID, CMP, URIC, TSH #### [facility] [address] [place] [address] Dr. Karen Marie Bilirubin [Mass/Vol] 0.5 mg/dL Normal 0.2-1.0 [facility] Comment on above: Performed By: #### L IPID, CMP, URIC, TSH #### [facility] [address] [place] [address] Dr. Karen Marie Calcium [Mass/Vol] 9.9 mg/dL Normal 8.5-10.1 [facility] Comment on above: Performed By: #### L IPID, CMP, URIC, TSH #### [facility] [address] [place] [address] Dr. Karen Marie Chloride [Moles/Vol] 101 mmol/L Normal 98-107 [facility] Comment on above: Performed By: #### L IPID, CMP, URIC, TSH #### [facility] [address] [place] [address] Dr. Karen Marie CO2 [Moles/Vol] 31.5 mmol/L Normal 21.0-32.0 [facility] Comment on above: Performed By: #### L IPID, CMP, URIC, TSH #### [facility] [address] [place] [address] Dr. Karen Marie Creatinine [Mass/Vol] 1.51 mg/dL Critically high 0.70-1.30 [facility] Comment on above: Performed By: #### L IPID, CMP, URIC, TSH #### [facility] [address] [place] [address] Dr. Karen Marie EGFR-AF CHINESE 55 mL/min/1.73m2 Critically low >=60 [facility] Comment on above: Performed By: #### L IPID, CMP, URIC, TSH #### [facility] [address] [place] [address] Dr. Karen Marie EGFR-NON AF CHINESE 45 mL/min/1.73m2 Critically low >=60 [facility] Comment on above: Performed By: #### L IPID, CMP, URIC, TSH #### [facility] [address] [place] [address] Dr. Karen Marie Globulin (S) [Mass/Vol] 3.9 g/dL Normal [facility] Comment on above: Performed By: #### L IPID, CMP, URIC, TSH #### [facility] [address] [place] [address] Dr. Karen Marie Glucose [Mass/Vol] 124 mg/dL Critically high 74-106 [facility] Comment on above: Performed By: #### L IPID, CMP, URIC, TSH #### [facility] [address] [place] [address] Dr. Karen Marie Potassium [Moles/Vol] 3.4 mmol/L Critically low 3.5-5.1 [facility] Comment on above: Performed By: #### L IPID, CMP, URIC, TSH #### [facility] [address] [place] [address] Dr. Karen Marie Protein [Mass/Vol] 7.4 g/dL Normal 6.4-8.2 [facility] Comment on above: Performed By: #### L IPID, CMP, URIC, TSH #### [facility] [address] [place] [address] Dr. Karen Marie Sodium [Moles/Vol] 136 mmol/L Normal 136-145 [facility] Comment on above: Performed By: #### L IPID, CMP, URIC, TSH #### [facility] [address] [place] [address] Dr. Karen Marie Urea nitrogen [Mass/Vol] 13.0 mg/dL Normal 7.0-18.0 [facility] Comment on above: Performed By: #### L IPID, CMP, URIC, TSH #### [facility] [address] [place] [address] Dr. Karen Marie Urea nitrogen/Creatinine [Mass ratio] 8.6 mg/mg Normal [facility] Comment on above: Performed By: #### L IPID, CMP, URIC, TSH #### [facility] [address] [place] [address] Dr. Karen Marie TSHon 07-08-2022 TSH 2.103 uIU/mL Normal 0.358-3.740 [facility] Comment on above: Performed By: #### L IPID, CMP, URIC, TSH #### [facility] [address] [place] [address] Dr. Karen Marie URIC ACID SERUMon 07-08-2022 Urate [Mass/Vol] 9.4 mg/dL Critically high 3.5-7.2 [facility] Comment on above: Performed By: #### L IPID, CMP, URIC, TSH #### [facility] [address] [place] [address] Dr. Karen Marie CBC AUTO DIFFon 02-19-2022 BASO # 0.0 103/ul Normal 0.0-0.1 [facility] Comment on above: Performed By: #### C BC #### [facility] [address] [place] [address] Dr. Karen Marie Basophils/100 WBC (Bld) 0.4 % Normal 0.2-2.0 [facility] Comment on above: Performed By: #### C BC #### [facility] [address] [place] [address] Dr. Karen Marie EO # 0.2 103/ul Normal 0.0-0.7 [facility] Comment on above: Performed By: #### C BC #### [facility] [address] [place] [address] Dr. Karen Marie Eosinophils/100 WBC (Bld) 3.2 % Normal 0.9-7.0 [facility] Comment on above: Performed By: #### C BC #### [facility] [address] [place] [address] Dr. Karen Marie Erythrocyte distribution width (RBC) [Ratio] 13.7 % Normal 11.0-15.0 [facility] Comment on above: Performed By: #### C BC #### [facility] [address] [place] [address] Dr. Karen Marie Hematocrit (Bld) [Volume fraction] 43.2 % Normal 42.0-54.0 [facility] Comment on above: Performed By: #### C BC #### [facility] [address] [place] [address] Dr. Karen Marie Hemoglobin (Bld) [Mass/Vol] 13.8 g/dL Critically low 14.0-18.0 [facility] Comment on above: Performed By: #### C BC #### [facility] [address] [place] [address] Dr. Karen Marie IG # 0.03 10e3/ul Normal 0.00-0.03 [facility] Comment on above: Performed By: #### C BC #### [facility] [address] [place] [address] Dr. Karen Marie IG % 0.4 % Normal 0.0-0.5 [facility] Comment on above: Performed By: #### C BC #### [facility] [address] [place] [address] Dr. Karen Marie LYMPH # 1.6 103/ul Normal 1.2-3.8 [facility] Comment on above: Performed By: #### C BC #### [facility] [address] [place] [address] Dr. Karen Marie Lymphocytes/100 WBC (Bld) 23.7 % Normal 20.5-60.0 [facility] Comment on above: Performed By: #### C BC #### [facility] [address] [place] [address] Dr. Karen Marie MANUAL DIFF REQ NO Normal [facility] Comment on above: Performed By: #### C BC #### [facility] [address] [place] [address] Dr. Karen Marie MCH (RBC) [Entitic mass] 30.1 pg Normal 25.9-34.0 [facility] Comment on above: Performed By: #### C BC #### [facility] [address] [place] [address] Dr. Karen Marie MCHC (RBC) [Mass/Vol] 31.9 g/dL Normal 29.9-35.2 [facility] Comment on above: Performed By: #### C BC #### [facility] [address] [place] [address] Dr. Karen Marie MCV (RBC) [Entitic vol] 94.3 fL Critically high 80.0-94.0 [facility] Comment on above: Performed By: #### C BC #### [facility] [address] [place] [address] Dr. Karen Marie MONO # 0.8 103/ul Normal 0.3-0.8 [facility] Comment on above: Performed By: #### C BC #### [facility] [address] [place] [address] Dr. Karen Marie Monocytes/100 WBC (Bld) 11.7 % Normal 1.7-12.0 [facility] Comment on above: Performed By: #### C BC #### [facility] [address] [place] [address] Dr. Karen Marie NEUT # 4.1 103/ul Normal 1.4-6.5 [facility] Comment on above: Performed By: #### C BC #### [facility] [address] [address] [address] Karen Marie Neutrophils/100 WBC (Bld) 60.6 % Normal 43.0-75.0 [facility] Comment on above: Performed By: #### C BC #### [facility] [address] [address] [address] Karen Marie Platelet mean volume (Bld) [Entitic vol] 11.9 fL Normal 9.5-13.5 [facility] Comment on above: Performed By: #### C BC #### [facility] [address] [place] [address] Dr. Karen Marie PLT 129 103/ul Critically low 150-450 [facility] Comment on above: Performed By: #### C BC #### [facility] [address] [place] [address] Dr. Karen Marie RBC 4.58 106/ul Critically low 4.70-6.10 [facility] Comment on above: Performed By: #### C BC #### [facility] [address] [address] [address] Karen Marie WBC 6.8 103/ul Normal 4.0-11.0 [facility] Comment on above: Performed By: #### C BC #### [facility] [address] [place] [address] Dr. Karen Marie PROF CHEM 8 (BAS METB)on Anion gap [Moles/Vol] 11.7 mmol/L Normal [facility] Comment on above: Performed By: #### B MP #### [facility] [address] [place] [address] Dr. Karen Marie Calcium [Mass/Vol] 9.3 mg/dL Normal 8.5-10.1 [facility] Comment on above: Performed By: #### B MP #### [facility] [address] [place] [address] Dr. Karen Marie Chloride [Moles/Vol] 106 mmol/L Normal 98-107 [facility] Comment on above: Performed By: #### B MP #### [facility] [address] [address] [address] Karen Marie CO2 [Moles/Vol] 28.3 mmol/L Normal 21.0-32.0 [facility] Comment on above: Performed By: #### B MP #### [facility] [address] [address] [address] Karen Marie Creatinine [Mass/Vol] 1.49 mg/dL Critically high 0.70-1.30 [facility] Comment on above: Performed By: #### B MP #### [facility] [address] [address] [address] Karen Marie EGFR-AF CHINESE 56 mL/min/1.73m2 Critically low >=60 [facility] Comment on above: Performed By: #### B MP #### [facility] [address] [address] [address] Karen Marie EGFR-NON AF CHINESE 46 mL/min/1.73m2 Critically low >=60 [facility] Comment on above: Performed By: #### B MP #### [facility] [address] [address] [address] Karen Marie Glucose [Mass/Vol] 101 mg/dL Normal 74-106 [facility] Comment on above: Performed By: #### B MP #### [facility] [address] [address] [address] Karen Marie Potassium [Moles/Vol] 5.0 mmol/L Normal 3.5-5.1 [facility] Comment on above: Performed By: #### B MP #### [facility] [address] [address] [address] Karen Marie Sodium [Moles/Vol] 141 mmol/L Normal 136-145 [facility] Comment on above: Performed By: #### B MP #### [facility] [address] [address] [address] Karen Marie Urea nitrogen [Mass/Vol] 17.0 mg/dL Normal 7.0-18.0 [facility] Comment on above: Performed By: #### B MP #### [facility] [address] [place], [place] [address] Dr. Karen Marie Urea nitrogen/Creatinine [Mass ratio] 11.4 mg/mg Normal [facility] Comment on above: Performed By: #### B MP #### [facility] [address] [place], [place] [address] Dr. Karen Marie XR Foot Complete Left*on [...] by Wandy Lees on 10/17/2021 1252 Normal [facility] [employer] Work[employer] Progress Noteson 08-08-2021 Formal Waiter/Waitress Authentication Interface Message Text Called pt Jul 6 as scheduled-no ans Called pt Aug 06-no ans Normal [facility] Progress Noteson 06-04-2021 Formal Waiter/Waitress Authentication Interface Message Text Normal [facility] Progress Noteson 06-03-2021 Formal Waiter/Waitress Authentication Interface Message Text Patient at risk for falls:No Falls Risk protocol implemented: Yes wheelchair in locked position when not in use for transport Normal [facility] XR ANKLE LEFT 3 VIEWSon 10-0 XR ANKLE LEFT 3 VIEWS Normal [facility] Anesthesia Attestationon Formal Waiter/Waitress Authentication Interface Message Text Normal [facility] Anesthesia Postprocedure Lucretia luationon 05-21-2021 Formal Waiter/Waitress Authentication Interface Message Text Normal [facility] Anesthesia Preprocedure Eval uationon 05-21-2021 Formal Waiter/Waitress Authentication Interface Message Text Normal [facility] Anesthesia Transfer Of Careo n 05-21-2021 Formal Waiter/Waitress Authentication Interface Message Text Normal [facility] H AND Martin 05-21-2021 Formal Waiter/Waitress Authentication Interface Message Text Normal [facility] OP Noteon 05-21-2021 Formal Waiter/Waitress Authentication Interface Message Text Normal [facility] Procedureson 05-21-2021 Formal Waiter/Waitress Authentication Interface Message Text Preop dx: L ankle fx Postop dx: same Proc; Removal pins L ankle () Removal LLE ex fix () Comp:none Plan NWB LLE, rest, elevation RTC Jun 03 Normal [facility] Progress Noteson 04-29-2021 Formal Waiter/Waitress Authentication Interface Message Text Patient was identified by name and date of . Mayra Trujillo Applied short leg cast and discussed cast care with patient. Normal [facility] Formal Waiter/Waitress Authentication Interface Message Text Patient was identified by name and date of . Amy Gonzalez RN Patient at risk for falls:yes Falls Risk protocol implemented: Yes wheelchair in locked position when not in use for transport Normal [facility] Formal Waiter/Waitress Authentication Interface Message Text Normal [facility] XR ANKLE LEFT 3 VIEWSon 04-02 XR ANKLE LEFT 3 VIEWS Normal [facility] Complete Blood Count Auto Di ffon 04-18-2021 Basophils (Bld) [#/Vol] 0.0 10*3/uL Normal 0.0-0.2 [facility] Comment on above: Order Comment: CAMDEN Souza FAX TO Result Comment: PERF ORMED BY: [place] [address] PATHOLOGIST WHEELCHAIR DRIVER DAKOTAH SMITH M.D. Performed By: #### C MP, CBC #### [facility] [address] [place] [address] [place] Basophils/100 WBC (Bld) 0.5 % Normal . [facility] Comment on above: Order Comment: CAMDEN E FAX TO Performed By: #### C MP, CBC #### [facility] [address] [place] [address] [place] Eosinophils (Bld) [#/Vol] 0.2 10*3/uL Normal 0.0-0.45 [facility] Comment on above: Order Comment: PLEAS E FAX TO Performed By: #### C MP, CBC #### [facility] [address] [place] [address] [place] Eosinophils/100 WBC (Bld) 3.4 % Normal . [facility] Comment on above: Order Comment: PLEAS E FAX TO Performed By: #### C MP, CBC #### [address] Erythrocyte distribution width (RBC) [Ratio] 15.5 % High 12.0-14.8 [facility] Comment on above: Order Comment: PLEAS E FAX TO Performed By: #### C MP, CBC #### [address] Hematocrit (Bld) [Volume fraction] 36.7 % Low 38.8-50.0 [facility] Comment on above: Order Comment: PLEAS E FAX TO Performed By: #### C MP, CBC #### [facility] [address] [place] [address] Hemoglobin (Bld) [Mass/Vol] 12.0 g/dL Low 13.0-17.0 [facility] Comment on above: Order Comment: PLEAS E FAX TO Performed By: #### C MP, CBC #### [facility] [address] [place] [address] [place] Lymphocytes (Bld) [#/Vol] 1.8 10*3/uL Normal 1.00-4.8 [facility] Comment on above: Order Comment: PLEAS E FAX TO Performed By: #### C MP, CBC #### [address] Lymphocytes/100 WBC (Bld) 35.6 % Normal . [facility] Comment on above: Order Comment: PLEAS E FAX TO Performed By: #### C MP, CBC #### [address] MCH (RBC) [Entitic mass] 30.5 pg Normal 27.5-35.2 [facility] Comment on above: Order Comment: PLEAS E FAX TO Performed By: #### C MP, CBC #### [address] MCV (RBC) [Entitic vol] 93.1 fL Normal 83.5-101 [facility] Comment on above: Order Comment: PLEAS E FAX TO Performed By: #### C MP, CBC #### [address] Mean Corpuscular HGB Conc 32.7 g/dL Normal 32.5-35.6 [facility] Comment on above: Order Comment: PLEAS E FAX TO Performed By: #### C MP, CBC #### [address] Monocytes (Bld) [#/Vol] 0.7 10*3/uL Normal 0.0-0.8 [facility] Comment on above: Order Comment: PLEAS E FAX TO Performed By: #### C MP, CBC #### [address] Monocytes/100 WBC (Bld) 14.1 % Normal . [facility] Comment on above: Order Comment: PLEAS E FAX TO Performed By: #### C MP, CBC #### [place] [address] [place] Neutrophils (Bld) [#/Vol] 2.3 10*3/uL Normal 1.8-7.7 [facility] Comment on above: Order Comment: PLEAS E FAX TO Performed By: #### C MP, CBC #### [address] [place] [address] [place] Neutrophils/100 WBC (Bld) 46.4 % Normal . [facility] Comment on above: Order Comment: PLEAS E FAX TO Performed By: #### C MP, CBC #### [address] Nucleated RBC/100 WBC (Bld) [Ratio] 0.2 % Normal 0-0.5 [facility] Comment on above: Order Comment: PLEAS E FAX TO Performed By: #### C MP, CBC #### [address] Platelet mean volume (Bld) [Entitic vol] 10.0 fL Normal 6.6-10.1 [facility] Comment on above: Order Comment: PLEAS E FAX TO Performed By: #### C MP, CBC #### [address] Platelets (Bld) [#/Vol] 137 10*3/uL Low 150-450 [facility] Comment on above: Order Comment: PLEAS E FAX TO Performed By: #### C MP, CBC #### [address] RBC (Bld) [#/Vol] 3.95 10*6/uL Normal 3.90-5.60 [facility] Comment on above: Order Comment: PLEAS E FAX TO Performed By: #### C MP, CBC #### [address] WBC (Bld) [#/Vol] 5.0 10*3/uL Normal 4.5-11.0 [facility] Comment on above: Order Comment: PLEAS E FAX TO Performed By: #### C MP, CBC #### [address] Comprehensive Metabolic Pane navin 04-18-2021 Albumin [Mass/Vol] 2.9 g/dL Low 3.2-5.5 [facility] Comment on above: Order Comment: PLEAS E FAX TO Performed By: #### C MP, CBC #### [facility] [address] [place] [address] Albumin/Globulin [Mass ratio] 1.2 {ratio} Normal [facility] Comment on above: Order Comment: PLEAS E FAX TO Performed By: #### C MP, CBC #### [facility] [address] [place] [address] ALP [Catalytic activity/Vol] 50 U/L Normal 32-92 [facility] Comment on above: Order Comment: PLEAS E FAX TO Result Comment: PERF ORMED BY: [place] [address] PATHOLOGIST WHEELCHAIR DRIVER DAKOTAH SMITH M.D. Performed By: #### C MP, CBC #### [facility] [address] [place] [address] ALT [Catalytic activity/Vol] 12 U/L Normal 10-60 [facility] Comment on above: Order Comment: PLEAS E FAX TO Performed By: #### C MP, CBC #### [facility] [address] [place], [place] [id number] [place] AST [Catalytic activity/Vol] 14 U/L Normal 10-42 [facility] Comment on above: Order Comment: PLEAS E FAX TO Performed By: #### C MP, CBC #### [facility] [address] [place] [address] Bilirubin [Mass/Vol] 0.3 mg/dL Normal 0.3-1.2 [facility] Comment on above: Order Comment: PLEAS E FAX TO Performed By: #### C MP, CBC #### [facility] [address] Calcium [Mass/Vol] 8.8 mg/dL Normal 8.2-10.2 [facility] Comment on above: Order Comment: PLEAS E FAX TO Performed By: #### C MP, CBC #### [address] Chloride [Moles/Vol] 105 mmol/L Normal 95-114 [facility] Comment on above: Order Comment: PLEAS E FAX TO Performed By: #### C MP, CBC #### [address] CO2 [Moles/Vol] 24.5 mmol/L Normal 22.0-30.0 [facility] Comment on above: Order Comment: PLEAS E FAX TO Performed By: #### C MP, CBC #### [address] Creatinine [Mass/Vol] 1.13 mg/dL Normal 0.64-1.27 [facility] Comment on above: Order Comment: PLEAS E FAX TO Performed By: #### C MP, CBC #### [address] Estimated GFR ( Mary Jo > 60 [facility] Comment on above: Order Comment: PLEAS E FAX TO Result Comment: GFR estimated reference range: According to KDOQI guidelines, <60 ml/min/1.73m2 is sufficient to diagnose a patient with chronic kidney disease. Performed By: #### C MP, CBC #### [facility] [address] [place] [address] Estimated GFR (Non- Am > 60 [facility] Comment on above: Order Comment: PLEAS E FAX TO Performed By: #### C MP, CBC #### [facility] [address] [place] [address] Globulin (S) [Mass/Vol] 2.5 g/dL Normal [facility] Comment on above: Order Comment: PLEAS E FAX TO Performed By: #### C MP, CBC #### [facility] [address] [place] [id number] [facility] Glucose [Mass/Vol] 108 mg/dL High 70-100 [facility] Comment on above: Order Comment: PLEAS E FAX TO Result Comment: [place] Glucose Reference Range is dependent on time and content of last meal. Glucose of more than 200 mg/dL in a nonstressed, ambulatory subject supports the diagnosis of Diabetes Mellitus. ADA recommended reference range Performed By: #### C MP, CBC #### [facility] [address] [place] [address] Potassium [Moles/Vol] 3.8 mmol/L Normal 3.5-5.1 [facility] Comment on above: Order Comment: PLEAS E FAX TO Performed By: #### C MP, CBC #### [facility] [address] [place] [address] Protein [Mass/Vol] 5.4 g/dL Low 6.1-7.9 [facility] Comment on above: Order Comment: PLEAS E FAX TO Performed By: #### C MP, CBC #### [facility] [address] [place], [place] [id number] [place] Sodium [Moles/Vol] 138 mmol/L Normal 136-146 [facility] Comment on above: Order Comment: PLEAS E FAX TO Performed By: #### C MP, CBC #### [facility] [address] [place], [place] [address] [place] Urea nitrogen [Mass/Vol] 16 mg/dL Normal 9-23 [facility] Comment on above: Order Comment: PLEAS E FAX TO Performed By: #### C MP, CBC #### [facility] [address] [place], [place] [id number] [facility] Progress Noteson 04-02-2021 Formal Waiter/Waitress Authentication Interface Message Text Normal [facility] Progress Noteson 04-01-2021 Formal Waiter/Waitress Authentication Interface Message Text Patient was identified by name and date of . Lennice Hampton Short leg cast applied. Pins care and extra gauze applied. Care and instructions provided. Normal [facility] Formal Waiter/Waitress Authentication Interface Message Text Patient at risk for falls:Yes Falls Risk protocol implemented: Yes wheelchair in locked position when not in use for transport Normal [facility] Patient Instructionson 03-18 Formal Waiter/Waitress Authentication Interface Message Text Normal [facility] Progress Noteson 03-18-2021 Formal Waiter/Waitress Authentication Interface Message Text Normal [facility] Formal Waiter/Waitress Authentication Interface Message Text Patient was identified by name and date of . Rehab Zoqash .Patient at risk for falls:No Falls Risk protocol implemented: No Normal [facility] Progress Noteson 03-12-2021 Formal Waiter/Waitress Authentication Interface Message Text Normal [facility] Progress Noteson 03-11-2021 Formal Waiter/Waitress Authentication Interface Message Text Patient was identified by name and date of . Lennice Hampton Suture removal. Short leg cast applied to LLE over fixator pins. Care and instructions provided. Normal [facility] Telephone Encounteron 2020 Formal Waiter/Waitress Authentication Interface Message Text Normal [facility] BASIC METABOLIC PANELon 07-0 Anion gap [Moles/Vol] 13 mmol/L Normal 5-13 [facility] Comment on above: Performed By: #### C H8 ####[facility] [id number] [place], [place], Calcium [Mass/Vol] 8.9 mg/dL Normal 8.4-10.4 [facility] Comment on above: Performed By: #### C H8 ####[facility] [id number] [place], Chloride [Moles/Vol] 104 mmol/L Normal 97-111 [facility] Comment on above: Performed By: #### C H8 ####[facility] [id number] [place], CO2 [Moles/Vol] 25 mmol/L Normal 21-30 [facility] Comment on above: Performed By: #### C H8 ####S PATHOLOGY [id number] [place], Creatinine [Mass/Vol] 0.99 mg/dL Normal 0.80-1.30 [facility] Comment on above: Performed By: #### C H8 ####S PATHOLOGY [id number] [place], ESTIMATED GFR (CKD-EPI) 75 mL/min/1.73sqm Normal >=60 [facility] Comment on above: Performed By: #### C H8 ####S PATHOLOGY [id number] [place], Glucose [Mass/Vol] 101 mg/dL Normal 80-116 [facility] Comment on above: Performed By: #### C H8 ####S PATHOLOGY [id number] [place], Potassium [Moles/Vol] 4.1 mmol/L Normal 3.3-5.3 [facility] Comment on above: Performed By: #### C H8 ####S PATHOLOGY [id number] [place], Sodium [Moles/Vol] 138 mmol/L Normal 135-148 [facility] Comment on above: Performed By: #### C H8 ####S PATHOLOGY [id number] [place], Urea nitrogen [Mass/Vol] 19 mg/dL Normal 8-22 [facility] Comment on above: Performed By: #### C H8 ####[facility] [id number] [place], Care Plan Noteon 02-28-2021 Formal Waiter/Waitress Authentication Interface Message Text Normal [facility] DIGOXIN02-28-2021 DIG 0.78 ng/mL Low 0.80-2.00 [facility] Comment on above: Performed By: #### D IG ####[facility] [id number] [place], Discharge Planning Noteon Formal Waiter/Waitress Authentication Interface Message Text Normal [facility] Progress Noteson 02-28-2021 Formal Waiter/Waitress Authentication Interface Message Text Report called to next facility to [facility]. Phone number provided to outside facility for any further questions. Reporting off to next shift. Normal [facility] Formal Waiter/Waitress Authentication Interface Message Text Normal [facility] BASIC METABOLIC PANELon 06-3 Anion gap [Moles/Vol] 13 mmol/L Normal 5-13 [facility] Comment on above: Performed By: #### Austyn H8, MG ####[facility] [id number] [place], Calcium [Mass/Vol] 8.8 mg/dL Normal 8.4-10.4 [facility] Comment on above: Performed By: #### Austyn H8, MG ####[facility] [id number] [place], Chloride [Moles/Vol] 104 mmol/L Normal 97-111 [facility] Comment on above: Performed By: #### Austyn H8, MG ####[facility] [id number] [place], CO2 [Moles/Vol] 25 mmol/L Normal 21-30 [facility] Comment on above: Performed By: #### Austyn H8, MG ####[facility] [id number] [place], Creatinine [Mass/Vol] 1.00 mg/dL Normal 0.80-1.30 [facility] Comment on above: Performed By: #### Austyn H8, MG ####[facility] [id number] [place], ESTIMATED GFR (CKD-EPI) 74 mL/min/1.73sqm Normal >=60 [facility] Comment on above: Performed By: #### C H8, MG ####[facility] [id number] [place], Glucose [Mass/Vol] 108 mg/dL Normal 80-116 [facility] Comment on above: Performed By: #### C H8, MG ####[facility] [id number] [place], Potassium [Moles/Vol] 4.3 mmol/L Normal 3.3-5.3 [facility] Comment on above: Performed By: #### C H8, MG ####[facility] PATHOLOGY [id number] [place], Sodium [Moles/Vol] 138 mmol/L Normal 135-148 [facility] Comment on above: Performed By: #### C H8, MG ####[facility] PATHOLOGY [id number] [place], Urea nitrogen [Mass/Vol] 20 mg/dL Normal 8-22 [facility] Comment on above: Performed By: #### C H8, MG ####[facility] PATHOLOGY [id number] [place], COMPLETE BLOOD COUNTon 02-27 Erythrocyte distribution width (RBC) [Ratio] 15.1 % High 11.5-14.5 [facility] Comment on above: Performed By: #### C BC ####[facility] PATHOLOGY [id number] [place] [address], Hematocrit (Bld) [Volume fraction] 30.9 % Low 41.0-53.0 [facility] Comment on above: Performed By: #### C BC ####[facility] PATHOLOGY [id number] [place], Hemoglobin (Bld) [Mass/Vol] 10.3 g/dL Low 13.9-16.3 [facility] Comment on above: Performed By: #### C BC ####[facility] PATHOLOGY [id number] [place], MCH (RBC) [Entitic mass] 31.8 pg Normal 26.0-34.0 [facility] Comment on above: Performed By: #### C BC ####[facility] PATHOLOGY [id number] [place] [address], MCHC (RBC) [Mass/Vol] 33.3 g/dL Normal 32.0-35.9 [facility] Comment on above: Performed By: #### C BC ####S PATHOLOGY [id number] [place], MCV (RBC) [Entitic vol] 95 fL Normal 80-100 [facility] Comment on above: Performed By: #### C BC ####S PATHOLOGY [id number] [place], Platelet mean volume (Bld) [Entitic vol] 10.2 fL Normal 7.5-11.2 [facility] Comment on above: Performed By: #### C BC ####S PATHOLOGY [id number] [place], Platelets (Bld) [#/Vol] 209 10*3/uL Normal 150-400 [facility] Comment on above: Performed By: #### C BC ####[facility] PATHOLOGY [id number] [place], RBC (Bld) [#/Vol] 3.24 10*6/uL Low 4.50-5.90 [facility] Comment on above: Performed By: #### C BC ####[facility] PATHOLOGY [id number] [place], WBC (Bld) [#/Vol] 5.2 10*3/uL Normal 4.5-11.5 [facility] Comment on above: Performed By: #### C BC ####[facility] PATHOLOGY [id number] [place], Care Plan Noteon 02-27-2021 Formal Waiter/Waitress Authentication Interface Message Text Normal [facility] Consultson 02-27-2021 Formal Waiter/Waitress Authentication Interface Message Text Normal [facility] Formal Waiter/Waitress Authentication Interface Message Text Normal [facility] MAGNESIUMon 02-27-2021 Magnesium [Mass/Vol] 2.3 mg/dL Normal 1.6-2.8 [facility] Comment on above: Performed By: #### C H8, MG ####S PATHOLOGY [id number] [place], Progress Noteson 02-27-2021 Formal Waiter/Waitress Authentication Interface Message Text Normal [facility] Formal Waiter/Waitress Authentication Interface Message Text Normal [facility] Formal Waiter/Waitress Authentication Interface Message Text Normal [facility] BASIC METABOLIC PANELon 06-2 Anion gap [Moles/Vol] 14 mmol/L High 5-13 [facility] Comment on above: Performed By: #### Rajiv Roque, CH8 ####S PATHOLOGY [id number] [place], Calcium [Mass/Vol] 9.0 mg/dL Normal 8.4-10.4 [facility] Comment on above: Performed By: #### Rajiv Roque, CH8 ####S PATHOLOGY [id number] [place], Chloride [Moles/Vol] 103 mmol/L Normal 97-111 [facility] Comment on above: Performed By: #### Rajiv Roque, CH8 ####S PATHOLOGY [id number] [place], CO2 [Moles/Vol] 24 mmol/L Normal 21-30 [facility] Comment on above: Performed By: #### Rajiv Roque, ALESHA8 ####S PATHOLOGY [id number] [place], Creatinine [Mass/Vol] 1.00 mg/dL Normal 0.80-1.30 [facility] Comment on above: Performed By: #### Rajiv Roque, CH8 ####S PATHOLOGY [id number] [place], ESTIMATED GFR (CKD-EPI) 74 mL/min/1.73sqm Normal >=60 [facility] Comment on above: Performed By: #### Rajiv Roque, CH8 ####S PATHOLOGY [id number] [place], Glucose [Mass/Vol] 103 mg/dL Normal 80-116 [facility] Comment on above: Performed By: #### Rajiv Roque, CH8 ####S PATHOLOGY [id number] [place], Potassium [Moles/Vol] 4.3 mmol/L Normal 3.3-5.3 [facility] Comment on above: Performed By: #### Rajiv Roque, CH8 ####[facility] [id number] [place], Sodium [Moles/Vol] 137 mmol/L Normal 135-148 [facility] Comment on above: Performed By: #### Rajiv Roque CH8 ####[facility] PATHOLOGY [id number] [place], Urea nitrogen [Mass/Vol] 17 mg/dL Normal 8-22 [facility] Comment on above: Performed By: #### Rajiv Roque CH8 ####[facility] PATHOLOGY [id number] [place], COMPLETE BLOOD COUNTon 02-26 Erythrocyte distribution width (RBC) [Ratio] 14.6 % High 11.5-14.5 [facility] Comment on above: Performed By: #### C BC ####[facility] PATHOLOGY [id number] [place], Hematocrit (Bld) [Volume fraction] 30.7 % Low 41.0-53.0 [facility] Comment on above: Performed By: #### C BC ####[facility] PATHOLOGY [id number] [place], Hemoglobin (Bld) [Mass/Vol] 10.5 g/dL Low 13.9-16.3 [facility] Comment on above: Performed By: #### C BC ####[facility] PATHOLOGY [id number] [place], MCH (RBC) [Entitic mass] 31.7 pg Normal 26.0-34.0 [facility] Comment on above: Performed By: #### C BC ####[facility] PATHOLOGY [id number] [place], MCHC (RBC) [Mass/Vol] 34.1 g/dL Normal 32.0-35.9 [facility] Comment on above: Performed By: #### C BC ####[facility] PATHOLOGY [id number] [place], MCV (RBC) [Entitic vol] 93 fL Normal 80-100 [facility] Comment on above: Performed By: #### C BC ####[facility] PATHOLOGY [id number] [place], Platelet mean volume (Bld) [Entitic vol] 10.3 fL Normal 7.5-11.2 [facility] Comment on above: Performed By: #### C BC ####S PATHOLOGY [id number] [place], Platelets (Bld) [#/Vol] 205 10*3/uL Normal 150-400 [facility] Comment on above: Performed By: #### C BC ####[facility] PATHOLOGY [id number] [place], RBC (Bld) [#/Vol] 3.30 10*6/uL Low 4.50-5.90 [facility] Comment on above: Performed By: #### C BC ####[facility] PATHOLOGY [id number] [place], WBC (Bld) [#/Vol] 5.3 10*3/uL Normal 4.5-11.5 [facility] Comment on above: Performed By: #### C BC ####[facility] PATHOLOGY [id number] [place], Care Plan Noteon 02-26-2021 Formal Waiter/Waitress Authentication Interface Message Text Normal [facility] Consultson 02-26-2021 Formal Waiter/Waitress Authentication Interface Message Text Normal [facility] Formal Waiter/Waitress Authentication Interface Message Text Normal [facility] MAGNESIUMon 02-26-2021 Magnesium [Mass/Vol] 2.2 mg/dL Normal 1.6-2.8 [facility] Comment on above: Performed By: #### Rajiv G, CH8 ####[facility] PATHOLOGY [id number] [place], Progress Noteson 02-26-2021 Formal Waiter/Waitress Authentication Interface Message Text Normal [facility] Formal Waiter/Waitress Authentication Interface Message Text Normal [facility] Formal Waiter/Waitress Authentication Interface Message Text Normal [facility] Formal Waiter/Waitress Authentication Interface Message Text Normal [facility] BASIC METABOLIC PANELon - Anion gap [Moles/Vol] 15 mmol/L High 5-13 [facility] Comment on above: Performed By: #### M G, CH8 ####S PATHOLOGY [id number] [place], Calcium [Mass/Vol] 9.7 mg/dL Normal 8.4-10.4 [facility] Comment on above: Performed By: #### Rajiv Roque, CH8 ####S PATHOLOGY [id number] [place], Chloride [Moles/Vol] 112 mmol/L High 97-111 [facility] Comment on above: Performed By: #### Rajiv Roque, CH8 ####[facility] PATHOLOGY [id number] [place], CO2 [Moles/Vol] 27 mmol/L Normal 21-30 [facility] Comment on above: Performed By: #### Rajiv Roque, CH8 ####[facility] PATHOLOGY [id number] [place], Creatinine [Mass/Vol] 0.96 mg/dL Normal 0.80-1.30 [facility] Comment on above: Performed By: #### Rjaiv Roque, CH8 ####[facility] PATHOLOGY [id number] [place], ESTIMATED GFR (CKD-EPI) 78 mL/min/1.73sqm Normal >=60 [facility] Comment on above: Performed By: #### Rajiv Roque, CH8 ####[facility] PATHOLOGY [id number] [place], Glucose [Mass/Vol] 113 mg/dL Normal 80-116 [facility] Comment on above: Performed By: #### Rajiv Roque, CH8 ####[facility] PATHOLOGY [id number] [place], Potassium [Moles/Vol] 4.9 mmol/L Normal 3.3-5.3 [facility] Comment on above: Performed By: #### Rajiv Roque, CH8 ####S PATHOLOGY [id number] [place], Sodium [Moles/Vol] 149 mmol/L High 135-148 [facility] Comment on above: Performed By: #### Rajiv Roque, CH8 ####[facility] PATHOLOGY [id number] [place], Urea nitrogen [Mass/Vol] 16 mg/dL Normal 8-22 [facility] Comment on above: Performed By: #### Rajiv Roque, CH8 ####[facility] PATHOLOGY [id number] [place], COMPLETE BLOOD COUNTon 02-25 Erythrocyte distribution width (RBC) [Ratio] 14.5 % Normal 11.5-14.5 [facility] Comment on above: Performed By: #### C BC ####[facility] PATHOLOGY [id number] [place], Hematocrit (Bld) [Volume fraction] 29.6 % Low 41.0-53.0 [facility] Comment on above: Performed By: #### C BC ####[facility] PATHOLOGY [id number] [place], Hemoglobin (Bld) [Mass/Vol] 9.9 g/dL Low 13.9-16.3 [facility] Comment on above: Performed By: #### C BC ####[facility] PATHOLOGY [id number] [place], MCH (RBC) [Entitic mass] 31.2 pg Normal 26.0-34.0 [facility] Comment on above: Performed By: #### C BC ####[facility] PATHOLOGY [id number] [place], MCHC (RBC) [Mass/Vol] 33.6 g/dL Normal 32.0-35.9 [facility] Comment on above: Performed By: #### C BC ####[facility] PATHOLOGY [id number] [place], MCV (RBC) [Entitic vol] 93 fL Normal 80-100 [facility] [facility] Comment on above: Performed By: #### C BC ####[facility] PATHOLOGY [id number] [place], [place], Platelet mean volume (Bld) [Entitic vol] 9.8 fL Normal 7.5-11.2 [facility] Comment on above: Performed By: #### C BC ####[facility] [id number] [place], [place], Platelets (Bld) [#/Vol] 207 10*3/uL Normal 150-400 [facility] Comment on above: Performed By: #### C BC ####[facility] [id number] [place], RBC (Bld) [#/Vol] 3.19 10*6/uL Low 4.50-5.90 [facility] Comment on above: Performed By: #### C BC ####S PATHOLOGY [id number] [place], WBC (Bld) [#/Vol] 5.6 10*3/uL Normal 4.5-11.5 [facility] Comment on above: Performed By: #### C BC ####[facility] PATHOLOGY [id number] [place], [place], Care Plan Noteon 02-25-2021 Formal Waiter/Waitress Authentication Interface Message Text Normal [facility] Consultson 02-25-2021 Formal Waiter/Waitress Authentication Interface Message Text Normal [facility] Formal Waiter/Waitress Authentication Interface Message Text Normal [facility] MAGNESIUMon 02-25-2021 Magnesium [Mass/Vol] 2.1 mg/dL Normal 1.6-2.8 [facility] Comment on above: Performed By: #### M G, CH8 ####S PATHOLOGY [id number] [place], [place], Nursing Noteon 02-25-2021 Formal Waiter/Waitress Authentication Interface Message Text Normal [facility] Progress Noteson 02-25-2021 Formal Waiter/Waitress Authentication Interface Message Text Normal [facility] Formal Waiter/Waitress Authentication Interface Message Text Normal [facility] BASIC METABOLIC PANELon 01-30 Anion gap [Moles/Vol] 14 mmol/L High 5-13 [facility] Comment on above: Performed By: #### C H8, MG ####S PATHOLOGY [id number] [place], Calcium [Mass/Vol] 9.0 mg/dL Normal 8.4-10.4 [facility] Comment on above: Performed By: #### C H8, MG ####[facility] [id number] [place], Chloride [Moles/Vol] 102 mmol/L Normal 97-111 [facility] Comment on above: Performed By: #### C H8, MG ####[facility] [id number] [place], CO2 [Moles/Vol] 23 mmol/L Normal 21-30 [facility] Comment on above: Performed By: #### C H8, MG ####[facility] [id number] [place], Creatinine [Mass/Vol] 0.94 mg/dL Normal 0.80-1.30 [facility] Comment on above: Performed By: #### C H8, MG ####[facility] [id number] [place], ESTIMATED GFR (CKD-EPI) 80 mL/min/1.73sqm Normal >=60 [facility] Comment on above: Performed By: #### C H8, MG ####[facility] [id number] [place], Glucose [Mass/Vol] 108 mg/dL Normal 80-116 [facility] Comment on above: Performed By: #### C H8, MG ####[facility]Y [id number] [place], Potassium [Moles/Vol] 4.3 mmol/L Normal 3.3-5.3 [facility] Comment on above: Performed By: #### C H8, MG ####[facility] [id number] [place], Sodium [Moles/Vol] 135 mmol/L Normal 135-148 [facility] Comment on above: Performed By: #### C H8, MG ####[facility] PATH[facility]Y [id number] [place], Urea nitrogen [Mass/Vol] 15 mg/dL Normal 8-22 [facility] Comment on above: Performed By: #### C H8, MG ####S PATHOLOGY [id number] [place], COMPLETE BLOOD COUNTon 02-24 Erythrocyte distribution width (RBC) [Ratio] 14.9 % High 11.5-14.5 [facility] Comment on above: Performed By: #### C BC ####[facility] PATHOLOGY [id number] [place], Hematocrit (Bld) [Volume fraction] 28.2 % Low 41.0-53.0 [facility] Comment on above: Performed By: #### C BC ####[facility] PATHOLOGY [id number] [place], Hemoglobin (Bld) [Mass/Vol] 9.8 g/dL Low 13.9-16.3 [facility] Comment on above: Performed By: #### C BC ####[facility] PATHOLOGY [id number] [place], MCH (RBC) [Entitic mass] 33.0 pg Normal 26.0-34.0 [facility] Comment on above: Performed By: #### C BC ####[facility] PATHOLOGY [id number] [place], MCHC (RBC) [Mass/Vol] 34.7 g/dL Normal 32.0-35.9 [facility] Comment on above: Performed By: #### C BC ####[facility] PATHOLOGY [id number] [place], MCV (RBC) [Entitic vol] 95 fL Normal 80-100 [facility] Comment on above: Performed By: #### C BC ####[facility] PATHOLOGY [id number] [place], Plate[place] mean volume (Bld) [Entitic vol] 10.1 fL Normal 7.5-11.2 [facility] Comment on above: Performed By: #### C BC ####[facility] PATHOLOGY [id number] [place], Platelets (Bld) [#/Vol] 206 10*3/uL Normal 150-400 [facility] Comment on above: Performed By: #### C BC ####[facility] [id number] [place], RBC (Bld) [#/Vol] 2.96 10*6/uL Low 4.50-5.90 [facility] Comment on above: Performed By: #### C BC ####[facility] [id number] [place], WBC (Bld) [#/Vol] 5.8 10*3/uL Normal 4.5-11.5 [facility] Comment on above: Performed By: #### C BC ####S PATHOLOGY [id number] [place], Care Plan Noteon 02-24-2021 Formal Waiter/Waitress Authentication Interface Message Text Normal [facility] MAGNESIUMon 02-24-2021 Magnesium [Mass/Vol] 1.9 mg/dL Normal 1.6-2.8 [facility] Comment on above: Performed By: #### C H8, MG ####[facility] PATHOLOGY [id number] [place], Progress Noteson 02-24-2021 Formal Waiter/Waitress Authentication Interface Message Text Normal [facility] BASIC METABOLIC PANELon 01-30 Anion gap [Moles/Vol] 15 mmol/L High 5-13 [facility] Comment on above: Performed By: #### Rajiv Roque, CH8 ####S PATHOLOGY [id number] [place], Calcium [Mass/Vol] 8.9 mg/dL Normal 8.4-10.4 [facility] Comment on above: Performed By: #### Rajiv Roque, CH8 ####[facility] [id number] [place], Chloride [Moles/Vol] 105 mmol/L Normal 97-111 [facility] Comment on above: Performed By: #### Rajiv Roque, CH8 ####S PATHOLOGY [id number] [place], CO2 [Moles/Vol] 22 mmol/L Normal 21-30 [facility] Comment on above: Performed By: #### Rajiv Roque, CH8 ####S PATHOLOGY [id number] [place], Creatinine [Mass/Vol] 0.87 mg/dL Normal 0.80-1.30 [facility] Comment on above: Performed By: #### Rajiv Roque, CH8 ####S PATHOLOGY [id number] [place], ESTIMATED GFR (CKD-EPI) 85 mL/min/1.73sqm Normal >=60 [facility] Comment on above: Performed By: #### Rajiv Roque, CH8 ####S PATHOLOGY [id number] [place], Glucose [Mass/Vol] 103 mg/dL Normal 80-116 [facility] Comment on above: Performed By: #### Rajiv Roque, CH8 ####S PATHOLOGY [id number] [place], Potassium [Moles/Vol] 4.6 mmol/L Normal 3.3-5.3 [facility] Comment on above: Performed By: #### Rajiv Roque, CH8 ####S PATHOLOGY [id number] [place], Sodium [Moles/Vol] 137 mmol/L Normal 135-148 [facility] Comment on above: Performed By: #### Rajiv Roque, CH8 ####S PATHOLOGY [id number] [place], Urea nitrogen [Mass/Vol] 20 mg/dL Normal 8-22 [facility] Comment on above: Performed By: #### Rajiv Roque, CH8 ####S PATHOLOGY [id number] [place], COMPLETE BLOOD COUNTon 02-23 Erythrocyte distribution width (RBC) [Ratio] 15.1 % High 11.5-14.5 [facility] Comment on above: Performed By: #### C BC ####S PATHOLOGY [id number] [place], Hematocrit (Bld) [Volume fraction] 29.0 % Low 41.0-53.0 [facility] Comment on above: Performed By: #### C BC ####[facility] PATHOLOGY [id number] [place], Hemoglobin (Bld) [Mass/Vol] 9.6 g/dL Low 13.9-16.3 [facility] Comment on above: Performed By: #### C BC ####[facility] PATHOLOGY [id number] [place], MCH (RBC) [Entitic mass] 31.6 pg Normal 26.0-34.0 [facility] Comment on above: Performed By: #### C BC ####[facility] PATHOLOGY [id number] [place], MCHC (RBC) [Mass/Vol] 33.1 g/dL Normal 32.0-35.9 [facility] Comment on above: Performed By: #### C BC ####[facility] PATHOLOGY [id number] [place], MCV (RBC) [Entitic vol] 95 fL Normal 80-100 [facility] Comment on above: Performed By: #### C BC ####[facility] PATHOLOGY [id number] [place], Platelet mean volume (Bld) [Entitic vol] 10.4 fL Normal 7.5-11.2 [facility] Comment on above: Performed By: #### C BC ####[facility] PATHOLOGY [id number] [place], Platelets (Bld) [#/Vol] 212 10*3/uL Normal 150-400 [facility] Comment on above: Performed By: #### C BC ####[facility] PATHOLOGY [id number] [place], RBC (Bld) [#/Vol] 3.04 10*6/uL Low 4.50-5.90 [facility] Comment on above: Performed By: #### C BC ####[facility] PATHOLOGY [id number] [place], WBC (Bld) [#/Vol] 6.8 10*3/uL Normal 4.5-11.5 [facility] Comment on above: Performed By: #### C BC ####[facility] PATH[facility] [id number] [place], Care Plan Noteon 02-23-2021 Formal Waiter/Waitress Authentication Interface Message Text Normal [facility] MAGNESIUMon 02-23-2021 Magnesium [Mass/Vol] 2.0 mg/dL Normal 1.6-2.8 [facility] Comment on above: Performed By: #### M G, CH8 ####[facility] PATH[facility] [id number] [place], Progress Noteson 02-23-2021 Formal Waiter/Waitress Authentication Interface Message Text Normal [facility] BASIC METABOLIC PANELon 01-30 Anion gap [Moles/Vol] 13 mmol/L Normal 5-13 [facility] Comment on above: Performed By: #### Austyn H8, MG ####S PATHOLOGY [id number] [place], Calcium [Mass/Vol] 8.7 mg/dL Normal 8.4-10.4 [facility] Comment on above: Performed By: #### Austyn H8, MG ####S PATHOLOGY [id number] [place], Chloride [Moles/Vol] 106 mmol/L Normal 97-111 [facility] Comment on above: Performed By: #### C H8, MG ####[facility] PATH[facility] [id number] [place], CO2 [Moles/Vol] 22 mmol/L Normal 21-30 [facility] Comment on above: Performed By: #### C H8, MG ####[facility] PATH[facility]Y [id number] [place], Creatinine [Mass/Vol] 0.90 mg/dL Normal 0.80-1.30 [facility] Comment on above: Performed By: #### C H8, MG ####[facility] PATH[facility] [id number] [place], ESTIMATED GFR (CKD-EPI) 84 mL/min/1.73sqm Normal >=60 [facility] Comment on above: Performed By: #### C H8, MG ####S PATHOLOGY [id number] [place], Glucose [Mass/Vol] 97 mg/dL Normal 80-116 [facility] Comment on above: Performed By: #### C H8, MG ####S PATHOLOGY [id number] [place], Potassium [Moles/Vol] 4.2 mmol/L Normal 3.3-5.3 [facility] Comment on above: Performed By: #### C H8, MG ####S PATHOLOGY [id number] [place], Sodium [Moles/Vol] 137 mmol/L Normal 135-148 [facility] Comment on above: Performed By: #### C H8, MG ####S PATHOLOGY [id number] [place] [address], Urea nitrogen [Mass/Vol] 17 mg/dL Normal 8-22 [facility] Comment on above: Performed By: #### C H8, MG ####[facility] PATHOLOGY [id number] [place] [address], COMPLETE BLOOD COUNTon 02-22 Erythrocyte distribution width (RBC) [Ratio] 15.0 % High 11.5-14.5 [facility] Comment on above: Performed By: #### C BC ####[facility] [id number] [place], Hematocrit (Bld) [Volume fraction] 27.4 % Low 41.0-53.0 [facility] Comment on above: Performed By: #### C BC ####S PATHOLOGY [id number] [place], Hemoglobin (Bld) [Mass/Vol] 9.2 g/dL Low 13.9-16.3 [facility] Comment on above: Performed By: #### C BC ####[facility] PATH[facility] [id number] [place], MCH (RBC) [Entitic mass] 31.4 pg Normal 26.0-34.0 [facility] Comment on above: Performed By: #### C BC ####[facility] PATHOLOGY [id number] [place], MCHC (RBC) [Mass/Vol] 33.6 g/dL Normal 32.0-35.9 [facility] Comment on above: Performed By: #### C BC ####[facility] PATHOLOGY [id number] [place], MCV (RBC) [Entitic vol] 93 fL Normal 80-100 [facility] Comment on above: Performed By: #### C BC ####[facility] PATHOLOGY [id number] [place], Platelet mean volume (Bld) [Entitic vol] 9.9 fL Normal 7.5-11.2 [facility] Comment on above: Performed By: #### C BC ####[facility] PATHOLOGY [id number] [place], Platelets (Bld) [#/Vol] 204 10*3/uL Normal 150-400 [facility] Comment on above: Performed By: #### C BC ####[facility] PATHOLOGY [id number] [place], RBC (Bld) [#/Vol] 2.94 10*6/uL Low 4.50-5.90 [facility] Comment on above: Performed By: #### C BC ####[facility] PATHOLOGY [id number] [place], WBC (Bld) [#/Vol] 6.7 10*3/uL Normal 4.5-11.5 [facility] Comment on above: Performed By: #### C BC ####[facility] PATHOLOGY [id number] [place], Care Plan Noteon 02-22-2021 Formal Waiter/Waitress Authentication Interface Message Text Normal [facility] Consultson 02-22-2021 Formal Waiter/Waitress Authentication Interface Message Text Normal [facility] MAGNESIUMon 02-22-2021 Magnesium [Mass/Vol] 2.0 mg/dL Normal 1.6-2.8 [facility] Comment on above: Performed By: #### C H8, MG ####[facility] [id number] [place], Progress Noteson 02-22-2021 Formal Waiter/Waitress Authentication Interface Message Text Normal [facility] Formal Waiter/Waitress Authentication Interface Message Text Normal [facility] Formal Waiter/Waitress Authentication Interface Message Text Normal [facility] BASIC METABOLIC PANELon 01-30 Anion gap [Moles/Vol] 13 mmol/L Normal 5-13 [facility] Comment on above: Performed By: #### C H8, MG ####[facility] PATHOLOGY [id number] [place], Calcium [Mass/Vol] 8.4 mg/dL Normal 8.4-10.4 [facility] Comment on above: Performed By: #### C H8, MG ####[facility] PATH[facility] [id number] [place], Chloride [Moles/Vol] 107 mmol/L Normal 97-111 [facility] Comment on above: Performed By: #### C H8, MG ####[facility] PATH[facility] [id number] [place], CO2 [Moles/Vol] 22 mmol/L Normal 21-30 [facility] Comment on above: Performed By: #### C H8, MG ####[facility] PATH[facility] [id number] [place], Creatinine [Mass/Vol] 0.85 mg/dL Normal 0.80-1.30 [facility] Comment on above: Performed By: #### C H8, MG ####[facility] [id number] [place], ESTIMATED GFR (CKD-EPI) 86 mL/min/1.73sqm Normal >=60 [facility] Comment on above: Performed By: #### C H8, MG ####[facility] PATH[facility] [id number] [place], Glucose [Mass/Vol] 107 mg/dL Normal 80-116 [facility] Comment on above: Performed By: #### C H8, MG ####S PATHOLOGY [id number] [place], Potassium [Moles/Vol] 4.0 mmol/L Normal 3.3-5.3 [facility] Comment on above: Performed By: #### C H8, MG ####S PATHOLOGY [id number] [place], Sodium [Moles/Vol] 138 mmol/L Normal 135-148 [facility] Comment on above: Performed By: #### C H8, MG ####S PATHOLOGY [id number] [place], Urea nitrogen [Mass/Vol] 16 mg/dL Normal 8-22 [facility] Comment on above: Performed By: #### C H8, MG ####S PATHOLOGY [id number] [place], COMPLETE BLOOD COUNTon 02-21 Erythrocyte distribution width (RBC) [Ratio] 15.2 % High 11.5-14.5 [facility] Comment on above: Performed By: #### C BC ####[facility] PATHOLOGY [id number] [place], Hematocrit (Bld) [Volume fraction] 26.7 % Low 41.0-53.0 [facility] Comment on above: Performed By: #### C BC ####S PATHOLOGY [id number] [place], Hemoglobin (Bld) [Mass/Vol] 9.2 g/dL Low 13.9-16.3 [facility] Comment on above: Performed By: #### C BC ####S PATHOLOGY [id number] [place], MCH (RBC) [Entitic mass] 32.3 pg Normal 26.0-34.0 [facility] Comment on above: Performed By: #### C BC ####S PATHOLOGY [id number] [place], MCHC (RBC) [Mass/Vol] 34.2 g/dL Normal 32.0-35.9 [facility] Comment on above: Performed By: #### C BC ####S PATHOLOGY [id number] [place], MCV (RBC) [Entitic vol] 94 fL Normal 80-100 [facility] Comment on above: Performed By: #### C BC ####[facility] [id number] [place], Plate[place] mean volume (Bld) [Entitic vol] 10.2 fL Normal 7.5-11.2 [facility] Comment on above: Performed By: #### C BC ####[facility] PATHOLOGY [id number] [place], Platelets (Bld) [#/Vol] 204 10*3/uL Normal 150-400 [facility] Comment on above: Performed By: #### C BC ####[facility] PATHOLOGY [id number] [place], RBC (Bld) [#/Vol] 2.83 10*6/uL Low 4.50-5.90 [facility] Comment on above: Performed By: #### C BC ####[facility] PATHOLOGY [id number] [place], WBC (Bld) [#/Vol] 7.8 10*3/uL Normal 4.5-11.5 [facility] Comment on above: Performed By: #### C BC ####[facility] PATHOLOGY [id number] [place], [place] Plan Noteon 02-21-2021 Formal Waiter/Waitress Authentication Interface Message Text Normal [facility] Consultson 02-21-2021 Formal Waiter/Waitress Authentication Interface Message Text Normal [facility] Formal Waiter/Waitress Authentication Interface Message Text Normal [facility] Formal Waiter/Waitress Authentication Interface Message Text Normal [facility] MAGNESIUMon 02-21-2021 Magnesium [Mass/Vol] 2.1 mg/dL Normal 1.6-2.8 [facility] Comment on above: Performed By: #### C H8, MG ####S PATHOLOGY [id number] [place], Progress Noteson 02-21-2021 Formal Waiter/Waitress Authentication Interface Message Text Per Trauma, unclear when pt is ready for DC. Pt accepted to [facility]. Please alert SW when pt is nearing DC. Pt will require a precert. Amada Saul, [facility], GRANT WRITER [phone] Normal [facility] Formal Waiter/Waitress Authentication Interface Message Text Normal [facility] Formal Waiter/Waitress Authentication Interface Message Text Normal [facility] BASIC METABOLIC PANELon 01-30 Anion gap [Moles/Vol] 9 mmol/L Normal 5-13 [facility] Comment on above: Performed By: #### Rajiv Roque, CH8 ####S PATHOLOGY [id number] [place], Calcium [Mass/Vol] 8.5 mg/dL Normal 8.4-10.4 [facility] Comment on above: Performed By: #### Rajiv Roque, CH8 ####S PATHOLOGY [id number] [place], Chloride [Moles/Vol] 104 mmol/L Normal 97-111 [facility] Comment on above: Performed By: #### Rajiv Roque, CH8 ####S PATHOLOGY [id number] [place], CO2 [Moles/Vol] 24 mmol/L Normal 21-30 [facility] Comment on above: Performed By: #### Rajiv Roque, CH8 ####[facility] [id number] [place], Creatinine [Mass/Vol] 0.95 mg/dL Normal 0.80-1.30 [facility] Comment on above: Performed By: #### Rajiv Roque, CH8 ####[facility] PATH[facility] [id number] [place], ESTIMATED GFR (CKD-EPI) 79 mL/min/1.73sqm Normal >=60 [facility] Comment on above: Performed By: #### Rajiv Roque, CH8 ####[facility] [id number] [place], Glucose [Mass/Vol] 112 mg/dL Normal 80-116 [facility] Comment on above: Performed By: #### Rajiv Roque, CH8 ####S PATHOLOGY [id number] [place], Potassium [Moles/Vol] 4.3 mmol/L Normal 3.3-5.3 [facility] Comment on above: Performed By: #### Rajiv Roque, CH8 ####[facility] PATHOLOGY [id number] [place], Sodium [Moles/Vol] 133 mmol/L Low 135-148 [facility] Comment on above: Performed By: #### Rajiv Roque, CH8 ####[facility] PATHOLOGY [id number] [place], Urea nitrogen [Mass/Vol] 16 mg/dL Normal 8-22 [facility] Comment on above: Performed By: #### Rajiv Roque, CH8 ####[facility] PATHOLOGY [id number] [place], COMPLETE BLOOD COUNTon 02-20 Erythrocyte distribution width (RBC) [Ratio] 14.9 % High 11.5-14.5 [facility] Comment on above: Performed By: #### C BC ####[facility] PATHOLOGY [id number] [place], Hematocrit (Bld) [Volume fraction] 30.1 % Low 41.0-53.0 [facility] Comment on above: Performed By: #### C BC ####[facility] PATHOLOGY [id number] [place], Hemoglobin (Bld) [Mass/Vol] 10.1 g/dL Low 13.9-16.3 [facility] Comment on above: Performed By: #### C BC ####S PATHOLOGY [id number] [place], [place], MCH (RBC) [Entitic mass] 31.7 pg Normal 26.0-34.0 [facility] Comment on above: Performed By: #### C BC ####S PATHOLOGY [id number] [place], MCHC (RBC) [Mass/Vol] 33.5 g/dL Normal 32.0-35.9 [facility] Comment on above: Performed By: #### C BC ####[facility] PATHOLOGY [id number] [place], MCV (RBC) [Entitic vol] 95 fL Normal 80-100 [facility] Comment on above: Performed By: #### C BC ####[facility] PATHOLOGY [id number] [place], Platelet mean volume (Bld) [Entitic vol] 10.1 fL Normal 7.5-11.2 [facility] Comment on above: Performed By: #### C BC ####[facility] PATHOLOGY [id number] [place], Platelets (Bld) [#/Vol] 225 10*3/uL Normal 150-400 [facility] Comment on above: Performed By: #### C BC ####[facility] PATHOLOGY [id number] [place], RBC (Bld) [#/Vol] 3.18 10*6/uL Low 4.50-5.90 [facility] Comment on above: Performed By: #### C BC ####[facility] PATHOLOGY [id number] [place], WBC (Bld) [#/Vol] 8.3 10*3/uL Normal 4.5-11.5 [facility] Comment on above: Performed By: #### C BC ####[facility] PATHOLOGY [id number] [place], Care Plan Noteon 02-20-2021 Formal Waiter/Waitress Authentication Interface Message Text Normal [facility] Consultson 02-20-2021 Formal Waiter/Waitress Authentication Interface Message Text Normal [facility] H AND Martin 02-20-2021 Formal Waiter/Waitress Authentication Interface Message Text Normal [facility] MAGNESIUMon 02-20-2021 Magnesium [Mass/Vol] 1.8 mg/dL Normal 1.6-2.8 [facility] Comment on above: Performed By: #### M Mya, CH8 ####[facility] PATHOLOGY [id number] [place], Procedureson 02-20-2021 Formal Waiter/Waitress Authentication Interface Message Text Normal [facility] Progress Noteson 02-20-2021 Formal Waiter/Waitress Authentication Interface Message Text Normal [facility] Formal Waiter/Waitress Authentication Interface Message Text Entered in error. Normal [facility] Formal Waiter/Waitress Authentication Interface Message Text Normal [facility] Formal Waiter/Waitress Authentication Interface Message Text Normal [facility] Anesthesia Acute Painon 01-30 Formal Waiter/Waitress Authentication Interface Message Text Normal [facility] Anesthesia Attestationon Formal Waiter/Waitress Authentication Interface Message Text Normal [facility] Anesthesia Postprocedure Lucretia luationon 02-19-2021 Formal Waiter/Waitress Authentication Interface Message Text Normal [facility] Formal Waiter/Waitress Authentication Interface Message Text Normal [facility] Anesthesia Procedure Noteson 02-19-2021 Formal Waiter/Waitress Authentication Interface Message Text Normal [facility] Anesthesia Transfer Of Careo n 02-19-2021 Formal Waiter/Waitress Authentication Interface Message Text Normal [facility] BASIC METABOLIC PANELon 01-30 Anion gap [Moles/Vol] 13 mmol/L Normal 5-13 [facility] Comment on above: Performed By: #### Rajiv Roque, CH8 ####[facility] PATHOLOGY [id number] [place], Calcium [Mass/Vol] 8.9 mg/dL Normal 8.4-10.4 [facility] Comment on above: Performed By: #### Rajiv Roque, CH8 ####S PATHOLOGY [id number] [place], Chloride [Moles/Vol] 107 mmol/L Normal 97-111 [facility] Comment on above: Performed By: #### Rajiv Rouqe, CH8 ####S PATHOLOGY [id number] [place], CO2 [Moles/Vol] 21 mmol/L Normal 21-30 [facility] Comment on above: Performed By: #### Rajiv Roque, CH8 ####S PATHOLOGY [id number] [place], Creatinine [Mass/Vol] 1.00 mg/dL Normal 0.80-1.30 [facility] Comment on above: Performed By: #### Rajiv Roque, CH8 ####[facility] PATHOLOGY [id number] [place], ESTIMATED GFR (CKD-EPI) 74 mL/min/1.73sqm Normal >=60 [facility] Comment on above: Performed By: #### Rajiv Roque, CH8 ####[facility] PATHOLOGY [id number] [place], Glucose [Mass/Vol] 102 mg/dL Normal 80-116 [facility] Comment on above: Performed By: #### Rajiv Roque, CH8 ####[facility] PATHOLOGY [id number] [place], Potassium [Moles/Vol] 4.3 mmol/L Normal 3.3-5.3 [facility] Comment on above: Performed By: #### Rajiv Roque, CH8 ####[facility] PATHOLOGY [id number] [place], Sodium [Moles/Vol] 137 mmol/L Normal 135-148 [facility] Comment on above: Performed By: #### Rajiv Roque, CH8 ####[facility] PATHOLOGY [id number] [place], Urea nitrogen [Mass/Vol] 23 mg/dL High 8-22 [facility] Comment on above: Performed By: #### Rajiv Roque, CH8 ####[facility] PATHOLOGY [id number] [place] [address], BLOOD GAS, ARTERIALon 2020 CR % O2 SAT > 99.4 Normal >=95.1 [facility] Comment on above: Performed By: #### C R GLU, CR COOX, CR ICA, CR BGA, CR LYTES, LACT ####[facility] PATHOLOGY [id number] [place], CR MAYCOL -2.1 mmol/L Low -2.0-2.0 [facility] Comment on above: Performed By: #### C R GLU, CR COOX, CR ICA, CR BGA, CR LYTES, LACT ####[facility] PATHOLOGY [id number] [place], CR PCO2 32.5 mm Hg Low 35.0-45.0 [facility] Comment on above: Performed By: #### C R GLU, CR COOX, CR ICA, CR BGA, CR LYTES, LACT ####[facility] PATHOLOGY [id number] [place] [address], CR PHA 7.429 Normal 7.35-7.45 [facility] Comment on above: Performed By: #### C R GLU, CR COOX, CR ICA, CR BGA, CR LYTES, LACT ####[facility] PATHOLOGY [id number] [place] [address], CR PO2 190 mm Hg High 80-100 mm Hg [facility] Comment on above: Performed By: #### C R GLU, CR COOX, CR ICA, CR BGA, CR LYTES, LACT ####[facility] PATHOLOGY [id number] [place] [address], HCO3 (Bld) [Moles/Vol] 21 mmol/L Low - e [facility] Comment on above: Performed By: #### C R GLU, CR COOX, CR ICA, CR BGA, CR LYTES, LACT ####[facility] PATHOLOGY [id number] [place] [address], Brief Operative Noteon 02-19 Formal Waiter/Waitress Authentication Interface Message Text Normal [facility] CALCIUM, IONIZEDon CR ICA 1.12 mmol/L Normal 1.10-1.40 [facility] Comment on above: Performed By: #### C R GLU, CR COOX, CR ICA, CR BGA, CR LYTES, LACT ####[facility] PATHOLOGY [id number] [place] [address], CO-OXIMETERon 02-19-2021 CARBOXYHEMOGLOBIN 2.2 % Normal <3.0 [facility] Comment on above: Performed By: #### C R GLU, CR COOX, CR ICA, CR BGA, CR LYTES, LACT ####[facility] PATHOLOGY [id number] [place] [address], CR HBMET 1.4 % Normal <3.0 [facility] Comment on above: Performed By: #### C R GLU, CR COOX, CR ICA, CR BGA, CR LYTES, LACT ####[facility] PATHOLOGY [id number] [place] [address], Hematocrit (Bld) [Volume fraction] 31.1 % Low 42.0-52.0 [facility] Comment on above: Performed By: #### C R GLU, CR COOX, CR ICA, CR BGA, CR LYTES, LACT ####[facility] PATHOLOGY [id number] [place] [address], Hemoglobin (Bld) [Mass/Vol] 10.1 g/dL Low 14.0-18.0 [facility] Comment on above: Performed By: #### C R GLU, CR COOX, CR ICA, CR BGA, CR LYTES, LACT ####[facility] PATHOLOGY [id number] [place] [address], OXYHEMOGLOBIN 96.1 % Normal 95.0-100.0 [facility] Comment on above: Performed By: #### C R GLU, CR COOX, CR ICA, CR BGA, CR LYTES, LACT ####[facility] PATHOLOGY [id number] [place] [address], COMPLETE BLOOD COUNTon 02-19 Erythrocyte distribution width (RBC) [Ratio] 14.9 % High 11.5-14.5 [facility] Comment on above: Performed By: #### C BC ####[facility] PATHOLOGY [id number] [place] [address], Hematocrit (Bld) [Volume fraction] 31.8 % Low 41.0-53.0 [facility] Comment on above: Performed By: #### C BC ####[facility] PATHOLOGY [id number] [place] [address], Hemoglobin (Bld) [Mass/Vol] 10.7 g/dL Low 13.9-16.3 [facility] Comment on above: Performed By: #### C BC ####[facility] PATHOLOGY [id number] [place] [address], MCH (RBC) [Entitic mass] 31.7 pg Normal 26.0-34.0 [facility] Comment on above: Performed By: #### C BC ####S PATHOLOGY [id number] [place], MCHC (RBC) [Mass/Vol] 33.8 g/dL Normal 32.0-35.9 [facility] Comment on above: Performed By: #### C BC ####[facility] PATHOLOGY [id number] [place], MCV (RBC) [Entitic vol] 94 fL Normal 80-100 [facility] Comment on above: Performed By: #### C BC ####[facility] PATHOLOGY [id number] [place], Platelet mean volume (Bld) [Entitic vol] 9.6 fL Normal 7.5-11.2 [facility] Comment on above: Performed By: #### C BC ####[facility] PATHOLOGY [id number] [place], Platelets (Bld) [#/Vol] 235 10*3/uL Normal 150-400 [facility] Comment on above: Performed By: #### C BC ####[facility] PATHOLOGY [id number] [place], RBC (Bld) [#/Vol] 3.38 10*6/uL Low 4.50-5.90 [facility] Comment on above: Performed By: #### C BC ####[facility] PATHOLOGY [id number] [place], WBC (Bld) [#/Vol] 6.3 10*3/uL Normal 4.5-11.5 [facility] Comment on above: Performed By: #### C BC ####[facility] PATHOLOGY [id number] [place], Care Plan Noteon 02-19-2021 Formal Waiter/Waitress Authentication Interface Message Text Normal [facility] Consultson 02-19-2021 Formal Waiter/Waitress Authentication Interface Message Text PHYSICAL THERAPY and OCCUPATIONAL THERAPY Attempt at Tx this AM is unsuccessful as Patient is off floor in OR with Orthopedics for definitive fixation of (L) ankle. Stas f/u Mariblel Ocasio, PT, MPT (B) [phone] Rosa Vick, OTR/L Normal [facility] ELECTROLYTESon 02-19-2021 Chloride [Moles/Vol] 109 mmol/L Normal 97-111 [facility] Comment on above: Performed By: #### C R GLU, CR COOX, CR ICA, CR BGA, CR LYTES, LACT ####[facility] PATHOLOGY [id number] [place], Potassium [Moles/Vol] 3.8 mmol/L Normal 3.3-5.3 [facility] Comment on above: Performed By: #### C R GLU, CR COOX, CR ICA, CR BGA, CR LYTES, LACT ####[facility] PATHOLOGY [id number] [place], Sodium [Moles/Vol] 134 mmol/L Low 135-148 [facility] Comment on above: Performed By: #### C R GLU, CR COOX, CR ICA, CR BGA, CR LYTES, LACT ####[facility] PATHOLOGY [id number] [place], GLUCOSE, WHOLE BLOODon 02-19 CR GLU 101 mg/dL High 68-98 [facility] Comment on above: Performed By: #### C R GLU, CR COOX, CR ICA, CR BGA, CR LYTES, LACT ####[facility] PATHOLOGY [id number] [place], H AND Martin 02-19-2021 Formal Waiter/Waitress Authentication Interface Message Text Normal [facility] LACTIC ACIDon 02-19-2021 CR LACT 0.7 mmol/L Normal 0.5-2.0 [facility] Comment on above: Performed By: #### C R GLU, CR COOX, CR ICA, CR BGA, CR LYTES, LACT ####[facility] PATHOLOGY [id number] [place], MAGNESIUMon 02-19-2021 Magnesium [Mass/Vol] 2.0 mg/dL Normal 1.6-2.8 [facility] Comment on above: Performed By: #### UCHE BlumS ####S PATHOLOGY [id number] [place], Magnesium [Mass/Vol] 2.0 mg/dL Normal 1.6-2.8 [facility] Comment on above: Performed By: #### Rajiv Roque CH8 ####[facility] PATHOLOGY [id number] [place], OP Noteon 02-19-2021 Formal Waiter/Waitress Authentication Interface Message Text Normal [facility] PARTIAL THROMBOPLASTIN TIMEo n 02-19-2021 aPTT Coag (Bld) [Time] 34 s Normal 25-37 Th [facility] Comment on above: Performed By: #### A PTT, PT ####[facility] PATHOLOGY [id number] [place], PHOSPHORUSon 02-19-2021 Phosphate [Mass/Vol] 3.8 mg/dL Normal 2.3-4.2 [facility] Comment on above: Performed By: #### BRITTANI Blum ####[facility] PATHOLOGY [id number] [place], PROTHROMBIN TIME AND INRon 0 02-19-2021 INR Coag (PPP) [Relative time] 1.09 {INR} Normal 0.90-1.10 [facility] Comment on above: Performed By: #### A PTT, PT ####[facility] PATHOLOGY [id number] [place], PT Coag (PPP) [Time] 12.3 s Normal 9.7-12.9 [facility] Comment on above: Performed By: #### A PTT, PT ####[facility] PATHOLOGY [id number] [place], Progress Noteson 02-19-2021 Formal Waiter/Waitress Authentication Interface Message Text Normal [facility] Formal Waiter/Waitress Authentication Interface Message Text Peripheral nerve block has been completed at bedside by anesthesia; will maintain cardiac monitoring for at least 30 minutes. Normal [facility] Formal Waiter/Waitress Authentication Interface Message Text OK for patient to get peripheral nerve block per Dr. Santos. Normal [facility] Formal Waiter/Waitress Authentication Interface Message Text Normal [facility] TYPE AND SCREENon 02-19-2021 ABO and Rh group Nom (Bld) Blood group A Rh(D) positive Normal [facility] Comment on above: Performed By: #### T S ####[facility] [id number] [place], ABSC INT Negative Normal [facility] Comment on above: Performed By: #### T S ####[facility] PATH[facility]Y [id number] [place], [place] GUIDANCE NEEDLE PLACEMENT on 02-19-2021 US GUIDANCE NEEDLE PLACEMENT Normal [facility] XR ANKLE LEFTon 02-19-2021 XR ANKLE LEFT Normal [facility] Anesthesia Preprocedure Eval uationon 02-18-2021 Formal Waiter/Waitress Authentication Interface Message Text Normal [facility] Care Plan Noteon 02-18-2021 Formal Waiter/Waitress Authentication Interface Message Text Normal [facility] Progress Noteson 02-18-2021 Formal Waiter/Waitress Authentication Interface Message Text SW is aware pt to go to the OR tomorrow: 02/19/2021. Pt will need post-op PT/OT for SNF placement and precert. [facility] has accepted and following for placement. They were made aware of the above Amada Saul [facility] [phone] Normal [facility] Formal Waiter/Waitress Authentication Interface Message Text Normal [facility] Formal Waiter/Waitress Authentication Interface Message Text Normal [facility] Formal Waiter/Waitress Authentication Interface Message Text Normal [facility] BASIC METABOLIC PANELon 01-30 Anion gap [Moles/Vol] 12 mmol/L Normal 5-13 [facility] Comment on above: Performed By: #### C H8, DIG, MG ####[facility] PATH[facility] [id number] [place], Calcium [Mass/Vol] 8.9 mg/dL Normal 8.4-10.4 [facility] Comment on above: Performed By: #### Austyn HSajan DIG, MG ####[facility]Y [id number] [place], Chloride [Moles/Vol] 106 mmol/L Normal 97-111 [facility] Comment on above: Performed By: #### C H8, DIG, MG ####[facility] PATH[facility]Y [id number] [place], CO2 [Moles/Vol] 22 mmol/L Normal 21-30 [facility] Comment on above: Performed By: #### C H8, DIG, MG ####[facility] PATHOLOGY [id number] [place], Creatinine [Mass/Vol] 1.17 mg/dL Normal 0.80-1.30 [facility] Comment on above: Performed By: #### C HSajan, DIG, MG ####[facility] PATHOLOGY [id number] [place], ESTIMATED GFR (CKD-EPI) 61 mL/min/1.73sqm Normal >=60 [facility] Comment on above: Performed By: #### Austyn Tamez, DIG, MG ####S PATHOLOGY [id number] [place], Glucose [Mass/Vol] 104 mg/dL Normal 80-116 [facility] Comment on above: Performed By: #### Austyn HSajan, DIG, MG ####S PATHOLOGY [id number] [place], Potassium [Moles/Vol] 4.4 mmol/L Normal 3.3-5.3 [facility] Comment on above: Performed By: #### Austyn HSajan, DIG, MG ####[facility] PATHOLOGY [id number] [place], Sodium [Moles/Vol] 136 mmol/L Normal 135-148 [facility] Comment on above: Performed By: #### Austyn H8, DIG, MG ####[facility] PATHOLOGY [id number] [place], Urea nitrogen [Mass/Vol] 33 mg/dL High 8-22 [facility] Comment on above: Performed By: #### C H8, DIG, MG ####[facility] PATHOLOGY [id number] [place], COMPLETE BLOOD COUNTon 02-17 Erythrocyte distribution width (RBC) [Ratio] 14.6 % High 11.5-14.5 [facility] Comment on above: Performed By: #### C BC ####[facility] PATHOLOGY [id number] [place], Hematocrit (Bld) [Volume fraction] 30.4 % Low 41.0-53.0 [facility] Comment on above: Performed By: #### C BC ####[facility] PATHOLOGY [id number] [place], Hemoglobin (Bld) [Mass/Vol] 10.4 g/dL Low 13.9-16.3 [facility] Comment on above: Performed By: #### C BC ####[facility] PATHOLOGY [id number] [place], MCH (RBC) [Entitic mass] 32.4 pg Normal 26.0-34.0 [facility] Comment on above: Performed By: #### C BC ####[facility] PATHOLOGY [id number] [place], MCHC (RBC) [Mass/Vol] 34.2 g/dL Normal 32.0-35.9 [facility] Comment on above: Performed By: #### C BC ####[facility] PATHOLOGY [id number] [place], MCV (RBC) [Entitic vol] 95 fL Normal 80-100 [facility] Comment on above: Performed By: #### C BC ####[facility] PATHOLOGY [id number] [place], Platelet mean volume (Bld) [Entitic vol] 10.2 fL Normal 7.5-11.2 [facility] Comment on above: Performed By: #### C BC ####[facility] PATHOLOGY [id number] [place], Platelets (Bld) [#/Vol] 207 10*3/uL Normal 150-400 [facility] Comment on above: Performed By: #### C BC ####[facility] PATHOLOGY [id number] [place], RBC (Bld) [#/Vol] 3.20 10*6/uL Low 4.50-5.90 [facility] Comment on above: Performed By: #### C BC ####S PATHOLOGY [id number] [place], WBC (Bld) [#/Vol] 9.1 10*3/uL Normal 4.5-11.5 [facility] Comment on above: Performed By: #### C BC ####S PATHOLOGY [id number] [place], Care Plan Noteon 02-17-2021 Formal Waiter/Waitress Authentication Interface Message Text Normal [facility] Consultson 02-17-2021 Formal Waiter/Waitress Authentication Interface Message Text Normal [facility] Formal Waiter/Waitress Authentication Interface Message Text Normal [facility] DIGOXINon 02-17-2021 DIG 0.91 ng/mL Normal 0.80-2.00 [facility] Comment on above: Performed By: #### C H8, DIG, MG ####S PATHOLOGY [id number] [place], MAGNESIUMon 02-17-2021 Magnesium [Mass/Vol] 2.0 mg/dL Normal 1.6-2.8 [facility] Comment on above: Performed By: #### C H8, DIG, MG ####S PATHOLOGY [id number] [place], Progress Noteson 02-17-2021 Formal Waiter/Waitress Authentication Interface Message Text Normal [facility] Care Plan Noteon 02-16-2021 Formal Waiter/Waitress Authentication Interface Message Text Normal [facility] Progress Noteson 02-16-2021 Formal Waiter/Waitress Authentication Interface Message Text Normal [facility] 1:1 Interactionon 02-15-2021 Formal Waiter/Waitress Authentication Interface Message Text Normal [facility] BASIC METABOLIC PANELon 01-29 Anion gap [Moles/Vol] 11 mmol/L Normal 5-13 [facility] Comment on above: Performed By: #### M G, CH8 ####[facility] PATH[facility] [id number] [place], Calcium [Mass/Vol] 8.8 mg/dL Normal 8.4-10.4 [facility] Comment on above: Performed By: #### Rajiv Roque, CH8 ####S PATHOLOGY [id number] [place], Chloride [Moles/Vol] 108 mmol/L Normal 97-111 [facility] Comment on above: Performed By: #### Rajiv Roque, CH8 ####S PATHOLOGY [id number] [place], CO2 [Moles/Vol] 23 mmol/L Normal 21-30 [facility] Comment on above: Performed By: #### Rajiv Roque, CH8 ####S PATHOLOGY [id number] [place], Creatinine [Mass/Vol] 1.06 mg/dL Normal 0.80-1.30 [facility] Comment on above: Performed By: #### Rajiv Roque, ALESHA8 ####[facility] PATHOLOGY [id number] [place], ESTIMATED GFR (CKD-EPI) 69 mL/min/1.73sqm Normal >=60 [facility] Comment on above: Performed By: #### Rajiv Roque, ALESHA8 ####[facility] PATHOLOGY [id number] [place], Glucose [Mass/Vol] 110 mg/dL Normal 80-116 [facility] Comment on above: Performed By: #### Rajiv Roque, ALESHA8 ####S PATHOLOGY [id number] [place], Potassium [Moles/Vol] 4.3 mmol/L Normal 3.3-5.3 The [facility] Comment on above: Performed By: #### Rajiv Roque, CH8 ####S PATHOLOGY [id number] [place], [place], Sodium [Moles/Vol] 138 mmol/L Normal 135-148 [facility] Comment on above: Performed By: #### Rajiv Roque, CH8 ####S PATHOLOGY [id number] [place], [place], Urea nitrogen [Mass/Vol] 34 mg/dL High 8-22 [facility] Comment on above: Performed By: #### Rajiv Roque CH8 ####[facility] [id number] [place], [place], COMPLETE BLOOD COUNTon 02-15 Erythrocyte distribution width (RBC) [Ratio] 14.8 % High 11.5-14.5 [facility] Comment on above: Performed By: #### C BC ####[facility] PATHOLOGY [id number] [place], [place], Hematocrit (Bld) [Volume fraction] 30.1 % Low 41.0-53.0 [facility] Comment on above: Performed By: #### C BC ####[facility] PATHOLOGY [id number] [place], Hemoglobin (Bld) [Mass/Vol] 10.1 g/dL Low 13.9-16.3 [facility] Comment on above: Performed By: #### C BC ####[facility] PATHOLOGY [id number] [place], MCH (RBC) [Entitic mass] 31.3 pg Normal 26.0-34.0 [facility] Comment on above: Performed By: #### C BC ####[facility] PATHOLOGY [id number] [place], MCHC (RBC) [Mass/Vol] 33.5 g/dL Normal 32.0-35.9 [facility] Comment on above: Performed By: #### C BC ####[facility] PATHOLOGY [id number] [place], MCV (RBC) [Entitic vol] 93 fL Normal 80-100 [facility] Comment on above: Performed By: #### C BC ####[facility] PATHOLOGY [id number] [place], Platelet mean volume (Bld) [Entitic vol] 10.2 fL Normal 7.5-11.2 [facility] Comment on above: Performed By: #### C BC ####[facility] PATHOLOGY [id number] [place], Platelets (Bld) [#/Vol] 172 10*3/uL Normal 150-400 [facility] Comment on above: Performed By: #### C BC ####[facility] [id number] [place], RBC (Bld) [#/Vol] 3.23 10*6/uL Low 4.50-5.90 [facility] Comment on above: Performed By: #### C BC ####[facility] [id number] [place], WBC (Bld) [#/Vol] 9.1 10*3/uL Normal 4.5-11.5 [facility] Comment on above: Performed By: #### Austyn BC ####S PATHOLOGY [id number] [place], Care Plan Noteon 02-15-2021 Formal Waiter/Waitress Authentication Interface Message Text Normal [facility] Consultson 02-15-2021 Formal Waiter/Waitress Authentication Interface Message Text Normal [facility] Formal Waiter/Waitress Authentication Interface Message Text Normal [facility] MAGNESIUMon 02-15-2021 Magnesium [Mass/Vol] 2.0 mg/dL Normal 1.6-2.8 [facility] Comment on above: Performed By: #### JENNIFER Blum ####[facility] PATH[facility] [id number] [place], Progress Noteson 02-15-2021 Formal Waiter/Waitress Authentication Interface Message Text Labs and vitals stable, known current state of variable aflutter block causing HR variability from 70-140s. No acute issues since ICU transfer. Normal [facility] Formal Waiter/Waitress Authentication Interface Message Text Normal [facility] Formal Waiter/Waitress Authentication Interface Message Text Normal [facility] 1:1 Interactionon 02-14-2021 Formal Waiter/Waitress Authentication Interface Message Text Normal [facility] BASIC METABOLIC PANELon 01-29 Anion gap [Moles/Vol] 11 mmol/L Normal 5-13 [facility] Comment on above: Performed By: #### JENNIFER Blum ####[facility] PATH[facility]Y [id number] [place], Calcium [Mass/Vol] 8.6 mg/dL Normal 8.4-10.4 [facility] Comment on above: Performed By: #### M G, CH8 ####S PATHOLOGY [id number] [place], Chloride [Moles/Vol] 110 mmol/L Normal 97-111 [facility] Comment on above: Performed By: #### Rajiv Roque, CH8 ####S PATHOLOGY [id number] [place], CO2 [Moles/Vol] 24 mmol/L Normal 21-30 [facility] Comment on above: Performed By: #### Rajiv Roque, CH8 ####S PATHOLOGY [id number] [place], Creatinine [Mass/Vol] 0.92 mg/dL Normal 0.80-1.30 [facility] Comment on above: Performed By: #### Rajiv Roque, CH8 ####[facility] PATHOLOGY [id number] [place], ESTIMATED GFR (CKD-EPI) 82 mL/min/1.73sqm Normal >=60 [facility] Comment on above: Performed By: #### Rajiv Roque, CH8 ####[facility] PATHOLOGY [id number] [place], Glucose [Mass/Vol] 116 mg/dL Normal 80-116 [facility] Comment on above: Performed By: #### Rajiv Roque, CH8 ####[facility] PATHOLOGY [id number] [place], Potassium [Moles/Vol] 4.3 mmol/L Normal 3.3-5.3 [facility] Comment on above: Performed By: #### Rajiv Roque, CH8 ####S PATHOLOGY [id number] [place], Sodium [Moles/Vol] 141 mmol/L Normal 135-148 [facility] Comment on above: Performed By: #### Rajiv Roque, CH8 ####S PATHOLOGY [id number] [place], Urea nitrogen [Mass/Vol] 36 mg/dL High 8-22 [facility] Comment on above: Performed By: #### Rajiv Roque, ALESHA8 ####S PATHOLOGY [id number] [place], COMPLETE BLOOD COUNTon 02-14 Erythrocyte distribution width (RBC) [Ratio] 14.8 % High 11.5-14.5 [facility] Comment on above: Performed By: #### C BC ####[facility] PATHOLOGY [id number] [place], Hematocrit (Bld) [Volume fraction] 29.5 % Low 41.0-53.0 [facility] Comment on above: Performed By: #### C BC ####[facility] PATHOLOGY [id number] [place] [address], Hemoglobin (Bld) [Mass/Vol] 9.9 g/dL Low 13.9-16.3 [facility] Comment on above: Performed By: #### C BC ####[facility] PATHOLOGY [id number] [place], MCH (RBC) [Entitic mass] 31.9 pg Normal 26.0-34.0 [facility] Comment on above: Performed By: #### C BC ####[facility] PATHOLOGY [id number] [place], MCHC (RBC) [Mass/Vol] 33.5 g/dL Normal 32.0-35.9 [facility] Comment on above: Performed By: #### C BC ####[facility] PATHOLOGY [id number] [place], MCV (RBC) [Entitic vol] 95 fL Normal 80-100 [facility] Comment on above: Performed By: #### C BC ####[facility] PATHOLOGY [id number] [place], Platelet mean volume (Bld) [Entitic vol] 10.8 fL Normal 7.5-11.2 [facility] Comment on above: Performed By: #### C BC ####[facility] PATHOLOGY [id number] [place], Platelets (Bld) [#/Vol] 131 10*3/uL Low 150-400 [facility] Comment on above: Performed By: #### C BC ####S PATHOLOGY [id number] [place], RBC (Bld) [#/Vol] 3.09 10*6/uL Low 4.50-5.90 [facility] Comment on above: Performed By: #### C BC ####[facility] PATH[facility] [id number] [place], WBC (Bld) [#/Vol] 6.8 10*3/uL Normal 4.5-11.5 [facility] Comment on above: Performed By: #### C BC ####[facility] PATHOLOGY [id number] [place], Care Plan Noteon 02-14-2021 Formal Waiter/Waitress Authentication Interface Message Text Normal [facility] Formal Waiter/Waitress Authentication Interface Message Text Normal [facility] Consultson 02-14-2021 Formal Waiter/Waitress Authentication Interface Message Text Normal [facility] Formal Waiter/Waitress Authentication Interface Message Text Normal [facility] Formal Waiter/Waitress Authentication Interface Message Text Normal [facility] MAGNESIUMon 02-14-2021 Magnesium [Mass/Vol] 2.5 mg/dL Normal 1.6-2.8 [facility] Comment on above: Performed By: #### Rajiv G, CH8 ####S PATHOLOGY [id number] [place], Progress Noteson 02-14-2021 Formal Waiter/Waitress Authentication Interface Message Text Normal [facility] Formal Waiter/Waitress Authentication Interface Message Text Normal [facility] Formal Waiter/Waitress Authentication Interface Message Text Normal [facility] BASIC METABOLIC PANELon 01-29 Anion gap [Moles/Vol] 9 mmol/L Normal 5-13 [facility] Comment on above: Performed By: #### C H8, MG ####S PATHOLOGY [id number] [place], Calcium [Mass/Vol] 8.9 mg/dL Normal 8.4-10.4 [facility] Comment on above: Performed By: #### C H8, MG ####[facility] PATH[facility] [id number] [place], Chloride [Moles/Vol] 108 mmol/L Normal 97-111 [facility] Comment on above: Performed By: #### C H8, MG ####[facility] PATHOLOGY [id number] [place], CO2 [Moles/Vol] 27 mmol/L Normal 21-30 [facility] Comment on above: Performed By: #### C H8, MG ####[facility] PATHOLOGY [id number] [place], Creatinine [Mass/Vol] 0.89 mg/dL Normal 0.80-1.30 [facility] Comment on above: Performed By: #### C H8, MG ####[facility] PATHOLOG[facility] [id number] [place], ESTIMATED GFR (CKD-EPI) 84 mL/min/1.73sqm Normal >=60 [facility] Comment on above: Performed By: #### C H8, MG ####[facility] PATHOLOGY [id number] [place], Glucose [Mass/Vol] 127 mg/dL High 80-116 [facility] Comment on above: Performed By: #### C H8, MG ####[facility] PATHOLOGY [id number] [place], Potassium [Moles/Vol] 3.9 mmol/L Normal 3.3-5.3 [facility] Comment on above: Performed By: #### C H8, MG ####[facility] PATHOLOGY [id number] [place], Sodium [Moles/Vol] 140 mmol/L Normal 135-148 [facility] Comment on above: Performed By: #### C H8, MG ####[facility] PATHOLOGY [id number] [place], Urea nitrogen [Mass/Vol] 29 mg/dL High 8-22 [facility] Comment on above: Performed By: #### C H8, MG ####[facility] PATHOLOGY [id number] [place], COMPLETE BLOOD COUNTon 02-13 Erythrocyte distribution width (RBC) [Ratio] 14.5 % Normal 11.5-14.5 [facility] Comment on above: Performed By: #### C BC ####[facility] PATHOLOGY [id number] [place], Hematocrit (Bld) [Volume fraction] 29.0 % Low 41.0-53.0 [facility] Comment on above: Performed By: #### C BC ####[facility] PATHOLOGY [id number] [place], Hemoglobin (Bld) [Mass/Vol] 9.8 g/dL Low 13.9-16.3 [facility] Comment on above: Performed By: #### C BC ####[facility] PATHOLOGY [id number] [place], MCH (RBC) [Entitic mass] 31.6 pg Normal 26.0-34.0 [facility] Comment on above: Performed By: #### C BC ####[facility] PATHOLOGY [id number] [place], MCHC (RBC) [Mass/Vol] 33.9 g/dL Normal 32.0-35.9 [facility] Comment on above: Performed By: #### C BC ####[facility] PATHOLOGY [id number] [place], MCV (RBC) [Entitic vol] 93 fL Normal 80-100 [facility] Comment on above: Performed By: #### C BC ####[facility] PATHOLOGY [id number] [place], Platelet mean volume (Bld) [Entitic vol] 10.8 fL Normal 7.5-11.2 [facility] Comment on above: Performed By: #### C BC ####[facility] PATHOLOGY [id number] [place], Platelets (Bld) [#/Vol] 132 10*3/uL Low 150-400 [facility] Comment on above: Performed By: #### C BC ####[facility] PATHOLOGY [id number] [place], RBC (Bld) [#/Vol] 3.11 10*6/uL Low 4.50-5.90 [facility] Comment on above: Performed By: #### C BC ####[facility] PATHOLOGY [id number] [place], WBC (Bld) [#/Vol] 7.1 10*3/uL Normal 4.5-11.5 [facility] Comment on above: Performed By: #### C BC ####[facility] PATHOLOGY [id number] [place], Consultson 02-13-2021 Formal Waiter/Waitress Authentication Interface Message Text Normal [facility] Formal Waiter/Waitress Authentication Interface Message Text Normal [facility] MAGNESIUMon 02-13-2021 Magnesium [Mass/Vol] 1.9 mg/dL Normal 1.6-2.8 [facility] Comment on above: Performed By: #### Austyn H8, MG ####S PATHOLOGY [id number] [place], Progress Noteson 02-13-2021 Formal Waiter/Waitress Authentication Interface Message Text Normal [facility] Formal Waiter/Waitress Authentication Interface Message Text Normal [facility] 1:1 Interactionon 02-12-2021 Formal Waiter/Waitress Authentication Interface Message Text Normal [facility] BASIC METABOLIC PANELon 01-29 Anion gap [Moles/Vol] 10 mmol/L Normal 5-13 [facility] Comment on above: Performed By: #### Austyn H8, MG, DIG ####[facility] PATH[facility] [id number] [place], Calcium [Mass/Vol] 8.7 mg/dL Normal 8.4-10.4 [facility] Comment on above: Performed By: #### Austyn H8, MG, DIG ####[facility] PATHOLOGY [id number] [place], Chloride [Moles/Vol] 108 mmol/L Normal 97-111 [facility] Comment on above: Performed By: #### Austyn H8, MG, DIG ####[facility] PATHOLOGY [id number] [place], CO2 [Moles/Vol] 26 mmol/L Normal 21-30 [facility] Comment on above: Performed By: #### C H8, MG, DIG ####[facility] PATHOLOGY [id number] [place], Creatinine [Mass/Vol] 1.10 mg/dL Normal 0.80-1.30 [facility] Comment on above: Performed By: #### C H8, MG, DIG ####[facility] PATHOLOGY [id number] [place], ESTIMATED GFR (CKD-EPI) 66 mL/min/1.73sqm Normal >=60 [facility] Comment on above: Performed By: #### C H8, MG, DIG ####[facility] PATHOLOGY [id number] [place], Glucose [Mass/Vol] 116 mg/dL Normal 80-116 [facility] Comment on above: Performed By: #### Austyn H8, MG, DIG ####[facility] PATHOLOGY [id number] [place], Potassium [Moles/Vol] 4.2 mmol/L Normal 3.3-5.3 [facility] Comment on above: Performed By: #### C H8, MG, DIG ####[facility] PATHOLOGY [id number] [place], Sodium [Moles/Vol] 140 mmol/L Normal 135-148 [facility] Comment on above: Performed By: #### C H8, MG, DIG ####[facility] PATHOLOGY [id number] [place], Urea nitrogen [Mass/Vol] 33 mg/dL High 8-22 [facility] Comment on above: Performed By: #### C H8, MG, DIG ####[facility] PATHOLOGY [id number] [place], COMPLETE BLOOD COUNTon 02-12 Erythrocyte distribution width (RBC) [Ratio] 14.5 % Normal 11.5-14.5 [facility] Comment on above: Performed By: #### C BC ####[facility] PATHOLOGY [id number] [place], Hematocrit (Bld) [Volume fraction] 27.5 % Low 41.0-53.0 [facility] Comment on above: Performed By: #### C BC ####[facility] PATHOLOGY [id number] [place], Hemoglobin (Bld) [Mass/Vol] 9.2 g/dL Low 13.9-16.3 [facility] Comment on above: Performed By: #### C BC ####[facility] PATHOLOGY [id number] [place], MCH (RBC) [Entitic mass] 31.1 pg Normal 26.0-34.0 [facility] Comment on above: Performed By: #### C BC ####[facility] PATHOLOGY [id number] [place] [address], MCHC (RBC) [Mass/Vol] 33.4 g/dL Normal 32.0-35.9 [facility] Comment on above: Performed By: #### C BC ####[facility] PATHOLOGY [id number] [place] [address], MCV (RBC) [Entitic vol] 93 fL Normal 80-100 [facility] Comment on above: Performed By: #### C BC ####[facility] PATHOLOGY [id number] [place] [address], Platelet mean volume (Bld) [Entitic vol] 10.8 fL Normal 7.5-11.2 [facility] Comment on above: Performed By: #### C BC ####[facility] PATHOLOGY [id number] [place], Platelets (Bld) [#/Vol] 109 10*3/uL Low 150-400 [facility] Comment on above: Performed By: #### C BC ####[facility] PATHOLOGY [id number] [place], RBC (Bld) [#/Vol] 2.95 10*6/uL Low 4.50-5.90 [facility] Comment on above: Performed By: #### C BC ####[facility] PATHOLOGY [id number] [place], WBC (Bld) [#/Vol] 7.5 10*3/uL Normal 4.5-11.5 [facility] Comment on above: Performed By: #### Austyn BC ####[facility] PATH[facility] [id number] [place], Care Plan Noteon 02-12-2021 Formal Waiter/Waitress Authentication Interface Message Text Normal [facility] Consultson 02-12-2021 Formal Waiter/Waitress Authentication Interface Message Text Normal [facility] Formal Waiter/Waitress Authentication Interface Message Text Normal [facility] Formal Waiter/Waitress Authentication Interface Message Text Normal [facility] DIGOXINon 02-12-2021 DIG 0.92 ng/mL Normal 0.80-2.00 [facility] Comment on above: Performed By: #### Austyn Tamez, MG, DIG ####[facility] [id number] [place], [place] MODIFIED BARIUM SWALLOWon 02-12-2021 [place] MODIFIED BARIUM SWALLOW Normal [facility] MAGNESIUMon 02-12-2021 Magnesium [Mass/Vol] 2.0 mg/dL Normal 1.6-2.8 [facility] Comment on above: Performed By: #### Austyn Tamez, MG, DIG ####[facility] [id number] [place], Progress Noteson 02-12-2021 Formal Waiter/Waitress Authentication Interface Message Text Normal [facility] Formal Waiter/Waitress Authentication Interface Message Text Normal [facility] BASIC METABOLIC PANELon 01-29 Anion gap [Moles/Vol] 10 mmol/L Normal 5-13 [facility] Comment on above: Performed By: #### Austyn Tamez, MG ####[facility] PATH[facility] [id number] [place], Calcium [Mass/Vol] 8.6 mg/dL Normal 8.4-10.4 [facility] Comment on above: Performed By: #### Austyn Tamez, MG ####[facility] PATH[facility] [id number] [place], Chloride [Moles/Vol] 106 mmol/L Normal 97-111 [facility] Comment on above: Performed By: #### Austyn Tamez, MG ####[facility] PATH[facility]Y [id number] [place], CO2 [Moles/Vol] 26 mmol/L Normal 21-30 [facility] Comment on above: Performed By: #### Ausytn Saleh8, MG ####[facility] PATH[facility] [id number] [place], Creatinine [Mass/Vol] 1.01 mg/dL Normal 0.80-1.30 [facility] Comment on above: Performed By: #### Austyn Tamez, MG ####[facility] PATH[facility] [id number] [place], ESTIMATED GFR (CKD-EPI) 73 mL/min/1.73sqm Normal >=60 [facility] Comment on above: Performed By: #### Austyn Tamez, MG ####[facility] PATH[facility]Y [id number] [place], Glucose [Mass/Vol] 121 mg/dL High 80-116 [facility] Comment on above: Performed By: #### Austyn Tamez, MG ####[facility] PATHOLOGY [id number] [place], Potassium [Moles/Vol] 4.0 mmol/L Normal 3.3-5.3 [facility] Comment on above: Performed By: #### Austyn Tamez, MG ####[facility] PATH[facility] [id number] [place], Sodium [Moles/Vol] 138 mmol/L Normal 135-148 [facility] Comment on above: Performed By: #### Austyn Saleh8, MG ####[facility] PATHOLOGY [id number] [place], Urea nitrogen [Mass/Vol] 22 mg/dL Normal 8-22 [facility] Comment on above: Performed By: #### Austyn H8, MG ####[facility] PATH[facility] [id number] [place], COMPLETE BLOOD COUNTon 02-11 Erythrocyte distribution width (RBC) [Ratio] 14.1 % Normal 11.5-14.5 [facility] Comment on above: Performed By: #### Austyn BC ####[facility] PATH[facility] [id number] [place], Hematocrit (Bld) [Volume fraction] 29.6 % Low 41.0-53.0 [facility] Comment on above: Performed By: #### C BC ####[facility] PATHOLOGY [id number] [place], Hemoglobin (Bld) [Mass/Vol] 10.2 g/dL Low 13.9-16.3 [facility] Comment on above: Performed By: #### C BC ####[facility] PATHOLOGY [id number] [place], MCH (RBC) [Entitic mass] 32.3 pg Normal 26.0-34.0 [facility] Comment on above: Performed By: #### C BC ####[facility] PATHOLOGY [id number] [place], MCHC (RBC) [Mass/Vol] 34.4 g/dL Normal 32.0-35.9 [facility] Comment on above: Performed By: #### C BC ####[facility] PATHOLOGY [id number] [place], MCV (RBC) [Entitic vol] 94 fL Normal 80-100 [facility] Comment on above: Performed By: #### C BC ####[facility] PATHOLOGY [id number] [place], Platelet mean volume (Bld) [Entitic vol] 10.3 fL Normal 7.5-11.2 [facility] Comment on above: Performed By: #### C BC ####[facility] PATHOLOGY [id number] [place], Platelets (Bld) [#/Vol] 101 10*3/uL Low 150-400 [facility] Comment on above: Performed By: #### C BC ####[facility] PATHOLOGY [id number] [place], RBC (Bld) [#/Vol] 3.15 10*6/uL Low 4.50-5.90 [facility] Comment on above: Performed By: #### C BC ####[facility] PATHOLOGY [id number] [place], WBC (Bld) [#/Vol] 8.2 10*3/uL Normal 4.5-11.5 [facility] Comment on above: Performed By: #### C BC ####[facility] PATHOLOGY [id number] [place], [place], Care Plan Noteon 02-11-2021 Formal Waiter/Waitress Authentication Interface Message Text Normal [facility] Formal Waiter/Waitress Authentication Interface Message Text Normal [facility] Consultson 02-11-2021 Formal Waiter/Waitress Authentication Interface Message Text Normal [facility] DIGOXINon 02-11-2021 DIG 1.91 ng/mL Normal 0.80-2.00 [facility] Comment on above: Performed By: #### D IG ####[facility] PATHOLOGY [id number] [place], [place], MAGNESIUMon 02-11-2021 Magnesium [Mass/Vol] 2.0 mg/dL Normal 1.6-2.8 [facility] Comment on above: Performed By: #### C H8, MG ####[facility] PATHOLOGY [id number] [place], [place], Progress Noteson 02-11-2021 Formal Waiter/Waitress Authentication Interface Message Text Normal [facility] Formal Waiter/Waitress Authentication Interface Message Text Normal [facility] Formal Waiter/Waitress Authentication Interface Message Text Normal [facility] Formal Waiter/Waitress Authentication Interface Message Text Normal [facility] Formal Waiter/Waitress Authentication Interface Message Text Normal [facility] 1:1 Interactionon 02-10-2021 Formal Waiter/Waitress Authentication Interface Message Text Normal [facility] ANTI FXA-LMW HEPARINon 02-10 ANTI FXA-LMW HEPARIN ASSAY 1.35 IU/mL Normal [facility] Comment on above: Order Comment: The r ecommended therapeutic range for treatment of thrombosis with Low Molecular Weight Heparin is 0.5 - 1.0 IU/mLThe recommended range for VTE prophylaxis with Low Molecular Weight Heparin is 0.2 - 0.4 IU/mL. Performed By: #### A XL ####[facility] PATHOLOGY [id number] [place], [place], BASIC METABOLIC PANELon - Anion gap [Moles/Vol] 9 mmol/L Normal 5-13 [facility] Comment on above: Performed By: #### Austyn Tamez, MG ####S PATHOLOGY [id number] [place], [place], Calcium [Mass/Vol] 8.9 mg/dL Normal 8.4-10.4 [facility] Comment on above: Performed By: #### Austyn Tamez, MG ####S PATHOLOGY [id number] [place], [place], Chloride [Moles/Vol] 110 mmol/L Normal 97-111 [facility] Comment on above: Performed By: #### Austyn Tamez, MG ####[facility] [id number] [place], CO2 [Moles/Vol] 26 mmol/L Normal 21-30 [facility] Comment on above: Performed By: #### Austyn Tamez, MG ####S PATHOLOGY [id number] [place], Creatinine [Mass/Vol] 1.10 mg/dL Normal 0.80-1.30 [facility] Comment on above: Performed By: #### Austyn Tamez, MG ####S PATHOLOGY [id number] [place] [address], ESTIMATED GFR (CKD-EPI) 66 mL/min/1.73sqm Normal >=60 [facility] Comment on above: Performed By: #### Austyn Tamez, MG ####S PATHOLOGY [id number] [place], Glucose [Mass/Vol] 128 mg/dL High 80-116 [facility] Comment on above: Performed By: #### Austyn Tamez, MG ####[facility]Y [id number] [place], Potassium [Moles/Vol] 3.7 mmol/L Normal 3.3-5.3 [facility] Comment on above: Performed By: #### Austyn Tamez, MG ####[facility] [id number] [place], Sodium [Moles/Vol] 141 mmol/L Normal 135-148 [facility] Comment on above: Performed By: #### C H8, MG ####[facility] PATHOLOGY [id number] [place], Urea nitrogen [Mass/Vol] 17 mg/dL Normal 8-22 [facility] Comment on above: Performed By: #### C H8, MG ####[facility] PATHOLOGY [id number] [place] [address], COMPLETE BLOOD COUNTon 02-10 Erythrocyte distribution width (RBC) [Ratio] 14.0 % Normal 11.5-14.5 [facility] Comment on above: Performed By: #### C BC ####[facility] PATHOLOGY [id number] [place] [address], Hematocrit (Bld) [Volume fraction] 29.7 % Low 41.0-53.0 [facility] Comment on above: Performed By: #### C BC ####[facility] PATHOLOGY [id number] [place] [address], Hemoglobin (Bld) [Mass/Vol] 10.1 g/dL Low 13.9-16.3 [facility] Comment on above: Performed By: #### C BC ####[facility] PATHOLOGY [id number] [place] [address], MCH (RBC) [Entitic mass] 31.5 pg Normal 26.0-34.0 [facility] Comment on above: Performed By: #### C BC ####[facility] PATHOLOGY [id number] [place] [address], MCHC (RBC) [Mass/Vol] 34.0 g/dL Normal 32.0-35.9 [facility] Comment on above: Performed By: #### C BC ####[facility] PATHOLOGY [id number] [place] [address], MCV (RBC) [Entitic vol] 93 fL Normal 80-100 [facility] Comment on above: Performed By: #### C BC ####[facility] PATHOLOGY [id number] [place] [address], Platelet mean volume (Bld) [Entitic vol] 10.6 fL Normal 7.5-11.2 [facility] Comment on above: Performed By: #### C BC ####S PATHOLOGY [id number] [place], Platelets (Bld) [#/Vol] 90 10*3/uL Low 150-400 [facility] Comment on above: Performed By: #### C BC ####S PATHOLOGY [id number] [place], RBC (Bld) [#/Vol] 3.20 10*6/uL Low 4.50-5.90 [facility] Comment on above: Performed By: #### C BC ####S PATHOLOGY [id number] [place], WBC (Bld) [#/Vol] 6.9 10*3/uL Normal 4.5-11.5 [facility] Comment on above: Performed By: #### C BC ####[facility] PATHOLOGY [id number] [place], Care Plan Noteon 02-10-2021 Formal Waiter/Waitress Authentication Interface Message Text Normal [facility] Formal Waiter/Waitress Authentication Interface Message Text Normal [facility] Consultson 02-10-2021 Formal Waiter/Waitress Authentication Interface Message Text Normal [facility] ED US FOCUSED CARDIACon 01-29 ED US FOCUSED CARDIAC Normal [facility] MAGNESIUMon 02-10-2021 Magnesium [Mass/Vol] 1.7 mg/dL Normal 1.6-2.8 [facility] Comment on above: Performed By: #### C H8, MG ####[facility] PATHOLOGY [id number] [place], Progress Noteson 02-10-2021 Formal Waiter/Waitress Authentication Interface Message Text Normal [facility] Formal Waiter/Waitress Authentication Interface Message Text Normal [facility] Formal Waiter/Waitress Authentication Interface Message Text Normal [facility] Treatment Plan Noteon 2020 Formal Waiter/Waitress Authentication Interface Message Text Normal [facility] XR CHEST AP OR PA 1 VIEWon 0 02-10-2021 XR CHEST AP OR PA 1 VIEW Normal [facility] ANTI FXA-LMW HEPARINon 02-09 ANTI FXA-LMW HEPARIN ASSAY 0.41 IU/mL Normal [facility] Comment on above: Order Comment: The r ecommended therapeutic range for treatment of thrombosis with Low Molecular Weight Heparin is 0.5 - 1.0 IU/mLThe recommended range for VTE prophylaxis with Low Molecular Weight Heparin is 0.2 - 0.4 IU/mL. Performed By: #### A XL ####S PATHOLOGY [id number] [place] [address], BASIC METABOLIC PANELon 01-29 Anion gap [Moles/Vol] 12 mmol/L Normal 5-13 [facility] Comment on above: Performed By: #### Austyn Tamez, MG ####[facility] PATHOLOGY [id number] [place] [address], Calcium [Mass/Vol] 8.4 mg/dL Normal 8.4-10.4 [facility] Comment on above: Performed By: #### Austyn Tamez, MG ####[facility] PATHOLOGY [id number] [place] [address], Chloride [Moles/Vol] 114 mmol/L High 97-111 [facility] Comment on above: Performed By: #### Austyn Tamez, MG ####[facility] PATHOLOGY [id number] [place] [address], CO2 [Moles/Vol] 22 mmol/L Normal 21-30 [facility] Comment on above: Performed By: #### Austyn Tamez, MG ####[facility] PATHOLOGY [id number] [place] [address], Creatinine [Mass/Vol] 1.04 mg/dL Normal 0.80-1.30 [facility] Comment on above: Performed By: #### Austyn Tamez, MG ####S PATHOLOGY [id number] [place], ESTIMATED GFR (CKD-EPI) 70 mL/min/1.73sqm Normal >=60 [facility] Comment on above: Performed By: #### Austyn Tamez, MG ####[facility] PATHOLOGY [id number] [place] [address], Glucose [Mass/Vol] 103 mg/dL Normal 80-116 [facility] Comment on above: Performed By: #### Austyn H8, MG ####[facility] PATHOLOGY [id number] [place], Potassium [Moles/Vol] 3.7 mmol/L Normal 3.3-5.3 [facility] Comment on above: Performed By: #### Austyn H8, MG ####[facility] PATHOLOGY [id number] [place], Sodium [Moles/Vol] 144 mmol/L Normal 135-148 [facility] Comment on above: Performed By: #### Austyn H8, MG ####[facility] PATHOLOGY [id number] [place], Urea nitrogen [Mass/Vol] 18 mg/dL Normal 8-22 [facility] Comment on above: Performed By: #### Austyn H8, MG ####[facility] PATHOLOGY [id number] [place], COMPLETE BLOOD COUNTon 02-09 Erythrocyte distribution width (RBC) [Ratio] 14.0 % Normal 11.5-14.5 [facility] Comment on above: Performed By: #### C BC ####[facility] PATHOLOGY [id number] [place], Hematocrit (Bld) [Volume fraction] 29.9 % Low 41.0-53.0 [facility] Comment on above: Performed By: #### C BC ####[facility] PATHOLOGY [id number] [place], Hemoglobin (Bld) [Mass/Vol] 10.1 g/dL Low 13.9-16.3 [facility] Comment on above: Performed By: #### C BC ####[facility] PATHOLOGY [id number] [place], MCH (RBC) [Entitic mass] 31.7 pg Normal 26.0-34.0 [facility] Comment on above: Performed By: #### C BC ####S PATHOLOGY [id number] [place], MCHC (RBC) [Mass/Vol] 33.7 g/dL Normal 32.0-35.9 [facility] Comment on above: Performed By: #### C BC ####S PATHOLOGY [id number] [place], MCV (RBC) [Entitic vol] 94 fL Normal 80-100 [facility] Comment on above: Performed By: #### C BC ####S PATHOLOGY [id number] [place], Platelet mean volume (Bld) [Entitic vol] 10.8 fL Normal 7.5-11.2 [facility] Comment on above: Performed By: #### C BC ####[facility] PATHOLOGY [id number] [place] [address], Platelets (Bld) [#/Vol] 92 10*3/uL Low 150-400 [facility] Comment on above: Performed By: #### C BC ####[facility] PATHOLOGY [id number] [place] [address], RBC (Bld) [#/Vol] 3.18 10*6/uL Low 4.50-5.90 [facility] Comment on above: Performed By: #### C BC ####[facility] PATHOLOGY [id number] [place] [address], WBC (Bld) [#/Vol] 6.5 10*3/uL Normal 4.5-11.5 [facility] Comment on above: Performed By: #### C BC ####S PATHOLOGY [id number] [place], Care Plan Noteon 02-09-2021 Formal Waiter/Waitress Authentication Interface Message Text Normal [facility] Formal Waiter/Waitress Authentication Interface Message Text Normal [facility] Consultson 02-09-2021 Formal Waiter/Waitress Authentication Interface Message Text Normal [facility] MAGNESIUMon 02-09-2021 Magnesium [Mass/Vol] 2.0 mg/dL Normal 1.6-2.8 [facility] Comment on above: Performed By: #### C H8, MG ####S PATHOLOGY [id number] [place], Progress Noteson 02-09-2021 Formal Waiter/Waitress Authentication Interface Message Text Normal [facility] Formal Waiter/Waitress Authentication Interface Message Text Normal [facility] XR CHEST AP OR PA 1 VIEWon 0 02-09-2021 XR CHEST AP OR PA 1 VIEW Normal [facility] 1:1 Interactionon 02-08-2021 Formal Waiter/Waitress Authentication Interface Message Text Normal [facility] AMMONIAon 02-08-2021 AMMO 14 umol/L Normal 11-35 [facility] Comment on above: Performed By: #### A MMO ####[facility] PATHOLOGY [id number] [place], BASIC METABOLIC PANELon 01-29 Anion gap [Moles/Vol] 8 mmol/L Normal 5-13 [facility] Comment on above: Performed By: #### C H8, MG, CK ####[facility] PATHOLOGY [id number] [place], Calcium [Mass/Vol] 8.2 mg/dL Low 8.4-10.4 [facility] Comment on above: Performed By: #### C H8, MG, CK ####[facility] PATHOLOGY [id number] [place], Chloride [Moles/Vol] 117 mmol/L High 97-111 [facility] Comment on above: Performed By: #### C H8, MG, CK ####[facility] PATHOLOGY [id number] [place], CO2 [Moles/Vol] 22 mmol/L Normal 21-30 [facility] Comment on above: Performed By: #### C H8, MG, CK ####[facility] PATHOLOGY [id number] [place], Creatinine [Mass/Vol] 0.99 mg/dL Normal 0.80-1.30 [facility] Comment on above: Performed By: #### C H8, MG, CK ####[facility] PATHOLOGY [id number] [place], ESTIMATED GFR (CKD-EPI) 75 mL/min/1.73sqm Normal >=60 [facility] Comment on above: Performed By: #### Austyn H8, MG, CK ####[facility] PATHOLOGY [id number] [place], Glucose [Mass/Vol] 93 mg/dL Normal 80-116 [facility] Comment on above: Performed By: #### Austyn H8, MG, CK ####[facility] PATHOLOGY [id number] [place], Potassium [Moles/Vol] 3.9 mmol/L Normal 3.3-5.3 [facility] Comment on above: Performed By: #### Austyn H8, MG, CK ####[facility] PATHOLOGY [id number] [place], Sodium [Moles/Vol] 143 mmol/L Normal 135-148 [facility] Comment on above: Performed By: #### Austyn H8, MG, CK ####[facility] PATHOLOGY [id number] [place] [address], Urea nitrogen [Mass/Vol] 17 mg/dL Normal 8-22 [facility] Comment on above: Performed By: #### Austyn H8, MG, CK ####[facility] PATHOLOGY [id number] [place] [address], BLOOD GAS, ARTERIALon 2020 CR % O2 SAT > 99.4 Normal >=95.1 [facility] Comment on above: Performed By: #### C R BGA ####[facility] PATHOLOGY [id number] [place], CR MAYCOL -3.3 mmol/L Low -2.0-2.0 [facility] Comment on above: Performed By: #### C R BGA ####S PATHOLOGY [id number] [place], CR PCO2 30.3 mm Hg Low 35.0-45.0 [facility] Comment on above: Performed By: #### C R BGA ####[facility] PATHOLOGY [id number] [place] [address], CR PHA 7.430 Normal 7.35-7.45 [facility] Comment on above: Performed By: #### C R BGA ####[facility] PATHOLOGY [id number] [place], CR PO2 179 mm Hg High 80-100 mm Hg [facility] Comment on above: Performed By: #### C R BGA ####[facility] PATHOLOGY [id number] [place], FIO2 (CATEGORY) 5 LPM Normal [facility] Comment on above: Performed By: #### C R BGA ####[facility] PATHOLOGY [id number] [place], HCO3 (Bld) [Moles/Vol] 20 mmol/L Low 22-28 e [facility] Comment on above: Performed By: #### C R BGA ####[facility] PATHOLOGY [id number] [place], MODE Nasal Canula Normal [facility] Comment on above: Performed By: #### C R BGA ####[facility] PATHOLOGY [id number] [place] [address], COMPLETE BLOOD COUNTon 02-08 Erythrocyte distribution width (RBC) [Ratio] 14.3 % Normal 11.5-14.5 [facility] Comment on above: Performed By: #### C BC ####[facility] PATHOLOGY [id number] [place], Hematocrit (Bld) [Volume fraction] 31.5 % Low 41.0-53.0 [facility] Comment on above: Performed By: #### C BC ####[facility] PATHOLOGY [id number] [place] [address], Hemoglobin (Bld) [Mass/Vol] 10.4 g/dL Low 13.9-16.3 [facility] Comment on above: Performed By: #### C BC ####[facility] PATHOLOGY [id number] [place], MCH (RBC) [Entitic mass] 31.1 pg Normal 26.0-34.0 [facility] Comment on above: Performed By: #### C BC ####[facility] PATHOLOGY [id number] [place], MCHC (RBC) [Mass/Vol] 33.1 g/dL Normal 32.0-35.9 [facility] Comment on above: Performed By: #### C BC ####[facility] PATHOLOGY [id number] [place], MCV (RBC) [Entitic vol] 94 fL Normal 80-100 [facility] Comment on above: Performed By: #### C BC ####[facility] PATHOLOGY [id number] [place], Platelet mean volume (Bld) [Entitic vol] 11.0 fL Normal 7.5-11.2 [facility] Comment on above: Performed By: #### C BC ####[facility] PATHOLOGY [id number] [place], Platelets (Bld) [#/Vol] 80 10*3/uL Low 150-400 [facility] Comment on above: Performed By: #### C BC ####[facility] PATHOLOGY [id number] [place], RBC (Bld) [#/Vol] 3.34 10*6/uL Low 4.50-5.90 [facility] Comment on above: Performed By: #### C BC ####[facility] PATHOLOGY [id number] [place], WBC (Bld) [#/Vol] 6.9 10*3/uL Normal 4.5-11.5 [facility] Comment on above: Performed By: #### C BC ####[facility] PATHOLOGY [id number] [place], CREATINE KINASEon 02-08-2021 CK [Catalytic activity/Vol] 1850 U/L High 57-374 [facility] Comment on above: Performed By: #### C H8, MG, CK ####[facility] PATHOLOGY [id number] [place], [place] CEREBRAL PERFUSION W/+W/O CONTRASTon 02-08-2021 CT CEREBRAL PERFUSION W/+W/O CONTRAST Normal [facility] Care Plan Noteon 02-08-2021 Formal Waiter/Waitress Authentication Interface Message Text Normal [facility] Formal Waiter/Waitress Authentication Interface Message Text Normal [facility] Consultson 02-08-2021 Formal Waiter/Waitress Authentication Interface Message Text Normal [facility] Formal Waiter/Waitress Authentication Interface Message Text Normal [facility] Formal Waiter/Waitress Authentication Interface Message Text Normal [facility] Formal Waiter/Waitress Authentication Interface Message Text Normal [facility] FULL LIPID PROFILEon 021 Cholesterol [Mass/Vol] 139 mg/dL Normal <181 Th e [facility] Comment on above: Performed By: #### H DL ####[facility] PATHOLOGY [id number] [place], Cholesterol in LDL [Mass/Vol] 85 mg/dL Normal <111 [facility] Comment on above: Performed By: #### H DL ####[facility] PATHOLOGY [id number] [place], Cholesterol.total/Chol esterol in HDL [Mass ratio] 3.48 {ratio} Normal [facility] Comment on above: Performed By: #### H DL ####S PATHOLOGY [id number] [place], HDL CHOL 40 mg/dL Low >44 [facility] Comment on above: Performed By: #### H DL ####S PATHOLOGY [id number] [place], LDL/HDL 2.13 Normal <3.57 [facility] Comment on above: Performed By: #### H DL ####S PATHOLOGY [id number] [place], NON-HDL CHOLESTEROL 99 mg/dL Normal <130 [facility] Comment on above: Performed By: #### H DL ####S PATHOLOGY [id number] [place], Triglyceride [Mass/Vol] 108 mg/dL Normal <151 [facility] Comment on above: Performed By: #### H DL ####S PATHOLOGY [id number] [place], MAGNESIUMon 02-08-2021 Magnesium [Mass/Vol] 1.8 mg/dL Normal 1.6-2.8 [facility] Comment on above: Performed By: #### M G ####[facility] [id number] [place], Magnesium [Mass/Vol] 1.7 mg/dL Normal 1.6-2.8 [facility] Comment on above: Performed By: #### C H8, MG, CK ####[facility] [id number] [place], Procedureson 02-08-2021 Formal Waiter/Waitress Authentication Interface Message Text Normal [facility] Formal Waiter/Waitress Authentication Interface Message Text Normal [facility] Formal Waiter/Waitress Authentication Interface Message Text Normal [facility] Progress Noteson 02-08-2021 Formal Waiter/Waitress Authentication Interface Message Text Normal [facility] Formal Waiter/Waitress Authentication Interface Message Text Normal [facility] Formal Waiter/Waitress Authentication Interface Message Text Normal [facility] Formal Waiter/Waitress Authentication Interface Message Text Normal [facility] Formal Waiter/Waitress Authentication Interface Message Text Normal [facility] XR ABDOMEN APon 02-08-2021 XR ABDOMEN AP Normal The [facility] XR CHEST AP OR PA 1 VIEWon 0 02-08-2021 XR CHEST AP OR PA 1 VIEW Normal [facility] XR CHEST AP OR PA 1 VIEW Normal [facility] 1:1 Interactionon 02-07-2021 Formal Waiter/Waitress Authentication Interface Message Text Normal [facility] BASIC METABOLIC PANELon 06- Anion gap [Moles/Vol] 11 mmol/L Normal 5-13 [facility] Comment on above: Performed By: #### P HOS, CH8, CK, MG ####[facility] [id number] [place], [place], Calcium [Mass/Vol] 8.1 mg/dL Low 8.4-10.4 [facility] Comment on above: Performed By: #### P HOS, CH8, CK, MG ####[facility] [id number] [place], [place], Chloride [Moles/Vol] 119 mmol/L High 97-111 [facility] Comment on above: Performed By: #### P HOS, CH8, CK, MG ####[facility] [id number] [place], [place], CO2 [Moles/Vol] 21 mmol/L Normal 21-30 The [facility] Comment on above: Performed By: #### P HOS, CH8, CK, MG ####[facility] [id number] [place], Creatinine [Mass/Vol] 1.05 mg/dL Normal 0.80-1.30 [facility] Comment on above: Performed By: #### P HOS, CH8, CK, MG ####[facility] [id number] [place], ESTIMATED GFR (CKD-EPI) 70 mL/min/1.73sqm Normal >=60 [facility] Comment on above: Performed By: #### P HOS, CH8, CK, MG ####[facility] [id number] [place], Glucose [Mass/Vol] 98 mg/dL Normal 80-116 [facility] Comment on above: Performed By: #### P HOS, CH8, CK, MG ####[facility]Y [id number] [place], Potassium [Moles/Vol] 4.0 mmol/L Normal 3.3-5.3 [facility] Comment on above: Performed By: #### P HOS, CH8, CK, MG ####[facility] [id number] [place], Sodium [Moles/Vol] 147 mmol/L Normal 135-148 [facility] Comment on above: Performed By: #### P HOS, CH8, CK, MG ####[facility] PATH[facility]Y [id number] [place], Urea nitrogen [Mass/Vol] 26 mg/dL High 8-22 [facility] Comment on above: Performed By: #### P HOS, CH8, CK, MG ####[facility] PATH[facility]Y [id number] [place], BLOOD CULTUREon 02-07-2021 Bacteria identified Cx Nom (Bld) C BLOOD: No Growth Normal [facility] Comment on above: Order Comment: The r esults may be compromised due to inadequate volume of fluid received. A negative result does not rule out an infectious process. Performed By: #### C BLOOD ####[facility] [address] [place], [place] BLOOD GAS, ARTERIALon 2020 CR MAYCOL -4.3 mmol/L Low -2.0-2.0 [facility] Comment on above: Performed By: #### C R BGA ####[facility] PATHOLOGY [id number] [place], [place], CR PCO2 35.1 mm Hg Normal 35.0-45.0 [facility] Comment on above: Performed By: #### C R BGA ####[facility] PATHOLOGY [id number] [place] [address], CR PHA 7.371 Normal 7.35-7.45 [facility] Comment on above: Performed By: #### C R BGA ####[facility] PATHOLOGY [id number] [place] [address], CR PO2 110 mm Hg High 80-100 mm Hg [facility] Comment on above: Performed By: #### C R BGA ####[facility] PATHOLOGY [id number] [place], FIO2 (CATEGORY) 40% Normal [facility] Comment on above: Performed By: #### C R BGA ####[facility] PATHOLOGY [id number] [place], HCO3 (Bld) [Moles/Vol] 20 mmol/L Low 22-28 Th e [facility] Comment on above: Performed By: #### C R BGA ####S PATHOLOGY [id number] [place], MODE Vent Normal [facility] Comment on above: Performed By: #### C R BGA ####[facility] PATHOLOGY [id number] [place], Oxygen saturation in Blood 98.0 % Normal >=95.1 [facility] Comment on above: Performed By: #### C R BGA ####[facility] PATHOLOGY [id number] [place], CALCIUM, IONIZEDon CR ICA 1.17 mmol/L Normal 1.10-1.40 [facility] Comment on above: Performed By: #### C R ICA, LACT ####[facility] PATHOLOGY [id number] [place], COMPLETE BLOOD COUNTon 02-07 Erythrocyte distribution width (RBC) [Ratio] 14.7 % High 11.5-14.5 [facility] Comment on above: Performed By: #### C BC ####[facility] PATHOLOGY [id number] [place], Hematocrit (Bld) [Volume fraction] 33.4 % Low 41.0-53.0 [facility] Comment on above: Performed By: #### C BC ####[facility] PATHOLOGY [id number] [place], Hemoglobin (Bld) [Mass/Vol] 10.7 g/dL Low 13.9-16.3 [facility] Comment on above: Performed By: #### C BC ####[facility] PATHOLOGY [id number] [place], MCH (RBC) [Entitic mass] 30.2 pg Normal 26.0-34.0 [facility] Comment on above: Performed By: #### C BC ####[facility] PATHOLOGY [id number] [place], MCHC (RBC) [Mass/Vol] 32.0 g/dL Normal 32.0-35.9 [facility] Comment on above: Performed By: #### C BC ####[facility] PATHOLOGY [id number] [place], MCV (RBC) [Entitic vol] 94 fL Normal 80-100 [facility] Comment on above: Performed By: #### C BC ####[facility] PATHOLOGY [id number] [place], Platelet mean volume (Bld) [Entitic vol] 10.4 fL Normal 7.5-11.2 [facility] Comment on above: Performed By: #### C BC ####[facility] PATHOLOGY [id number] [place], Platelets (Bld) [#/Vol] 86 10*3/uL Low 150-400 [facility] Comment on above: Performed By: #### C BC ####[facility] PATHOLOGY [id number] [place], RBC (Bld) [#/Vol] 3.54 10*6/uL Low 4.50-5.90 [facility] Comment on above: Performed By: #### C BC ####[facility] PATHOLOGY [id number] [place], WBC (Bld) [#/Vol] 8.2 10*3/uL Normal 4.5-11.5 [facility] Comment on above: Performed By: #### C BC ####[facility] PATHOLOGY [id number] [place] [address], Erythrocyte distribution width (RBC) [Ratio] 14.9 % High 11.5-14.5 [facility] Comment on above: Performed By: #### C BC ####[facility] PATHOLOGY [id number] [place] [address], Hematocrit (Bld) [Volume fraction] 34.6 % Low 41.0-53.0 [facility] Comment on above: Performed By: #### C BC ####[facility] PATHOLOGY [id number] [place], Hemoglobin (Bld) [Mass/Vol] 11.5 g/dL Low 13.9-16.3 [facility] Comment on above: Performed By: #### C BC ####[facility] PATHOLOGY [id number] [place], MCH (RBC) [Entitic mass] 31.8 pg Normal 26.0-34.0 [facility] Comment on above: Performed By: #### C BC ####[facility] PATHOLOGY [id number] [place], MCHC (RBC) [Mass/Vol] 33.2 g/dL Normal 32.0-35.9 [facility] Comment on above: Performed By: #### C BC ####[facility] PATHOLOGY [id number] [place], MCV (RBC) [Entitic vol] 96 fL Normal 80-100 [facility] Comment on above: Performed By: #### C BC ####[facility] PATHOLOGY [id number] [place], Platelet mean volume (Bld) [Entitic vol] 10.7 fL Normal 7.5-11.2 [facility] Comment on above: Performed By: #### C BC ####[facility] PATHOLOGY [id number] [place] [address], Platelets (Bld) [#/Vol] 85 10*3/uL Low 150-400 [facility] Comment on above: Performed By: #### C BC ####[facility] PATHOLOGY [id number] [place] [address], RBC (Bld) [#/Vol] 3.62 10*6/uL Low 4.50-5.90 [facility] Comment on above: Performed By: #### C BC ####[facility] PATHOLOGY [id number] [place] [address], WBC (Bld) [#/Vol] 10.6 10*3/uL Normal 4.5-11.5 [facility] Comment on above: Performed By: #### C BC ####[facility] PATHOLOGY [id number] [place] [address], CREATINE KINASEon 02-07-2021 CK [Catalytic activity/Vol] 1944 U/L High 57-374 [facility] Comment on above: Performed By: #### C K ####[facility] PATHOLOGY [id number] [place], CK [Catalytic activity/Vol] 1978 U/L High 57-374 [facility] Comment on above: Performed By: #### C K ####[facility] PATHOLOGY [id number] [place] [address], CK [Catalytic activity/Vol] 2265 U/L High 57-374 [facility] Comment on above: Performed By: #### P HOS, CH8, CK, MG ####[facility] PATH[facility] [id number] [place], CK [Catalytic activity/Vol] 2537 U/L High 57-374 [facility] Comment on above: Performed By: #### C K ####[facility] PATHOLOGY [id number] [place], [place], Care Plan Noteon 02-07-2021 Formal Waiter/Waitress Authentication Interface Message Text Normal [facility] Consultson 02-07-2021 Formal Waiter/Waitress Authentication Interface Message Text Normal [facility] Formal Waiter/Waitress Authentication Interface Message Text Normal [facility] Formal Waiter/Waitress Authentication Interface Message Text Normal [facility] GLUCOSE, FINGERSTICK-IN OFFI CEon 02-07-2021 Glucose [Mass/Vol] 92 mg/dL Normal 80-116 [facility] Comment on above: Performed By: #### 8 2948 ####NURSING GLUCOSE [id number] [place], [address] Glucose [Mass/Vol] 82 mg/dL Normal 80-116 [facility] Comment on above: Performed By: #### 8 2948 ####NURSING GLUCOSE [id number] [place], [address] Glucose [Mass/Vol] 89 mg/dL Normal 80-116 [facility] Comment on above: Performed By: #### 8 2948 ####NURSING GLUCOSE [id number] [place], [address] LACTIC ACIDon 02-07-2021 CR LACT 1.0 mmol/L Normal 0.5-2.0 [facility] Comment on above: Performed By: #### C R ICA, LACT ####[facility] PATH[facility] [id number] [place], MAGNESIUMon 02-07-2021 Magnesium [Mass/Vol] 2.0 mg/dL Normal 1.6-2.8 [facility] Comment on above: Performed By: #### P HOS, CH8, CK, MG ####[facility] PATH[facility]Y [id number] [place], NOVEL CORONAVIRUS (COVID-19) on 02-07-2021 SARS-CoV-2 (COVID-19) RNA RICK+probe Ql (Unsp spec) Not detected Normal Not Detected [facility] Comment on above: Order Comment: This test is intended for use only under Emergency Use Authorization (EUA). This test was developed, and its performance characteristics determined by [facility] which is certified under CLIA as qualified to perform high complexity clinical laboratory testing. Result Comment: This assay was performed using [employer] RTPCR technology. Performed By: #### C OVID19 ####[facility] PATH[facility] [id number] [place], PHOSPHORUSon 02-07-2021 Phosphate [Mass/Vol] 2.5 mg/dL Normal 2.3-4.2 [facility] Comment on above: Performed By: #### P HOS, CH8, CK, MG ####[facility] PATHOLOGY [id number] [place], [place], Procedureson 02-07-2021 Formal Waiter/Waitress Authentication Interface Message Text Normal [facility] Progress Noteson 02-07-2021 Formal Waiter/Waitress Authentication Interface Message Text Normal [facility] Formal Waiter/Waitress Authentication Interface Message Text Normal [facility] Formal Waiter/Waitress Authentication Interface Message Text Normal [facility] Formal Waiter/Waitress Authentication Interface Message Text Normal [facility] Formal Waiter/Waitress Authentication Interface Message Text Normal [facility] TOXICOLOGY SCREEN, UNCONFIRM EDon 02-07-2021 AMPH Negative Normal Negative [facility] Comment on above: Order Comment: This [...] toxicology consultation please call the laboratory at [phone]. Performed By: #### T OX SC ####[facility] PATHOLOGY [id number] [place], BARBIT Negative Normal Negative [facility] Comment on above: Order Comment: This [...] toxicology consultation please call the laboratory at [phone]. Performed By: #### T OX MI ####[facility] PATHOLOGY [id number] [place], BENZO Positive Abnormal Negative [facility] Comment on above: Order Comment: This [...] toxicology consultation please call the laboratory at [phone]. Performed By: #### T OX MI ####[facility] PATHOLOGY [id number] [place], COCAINE CL Negative Normal Negative [facility] Comment on above: Order Comment: This [...] toxicology consultation please call the laboratory at [phone]. Performed By: #### T OX SC ####S PATHOLOGY [id number] [place], Ethanol [Mass/Vol] Negative Normal Cutoff: 1 0 mg/dL [facility] Comment on above: Order Comment: This [...] toxicology consultation please call the laboratory at [phone]. Performed By: #### T OX SC ####[facility] PATHOLOGY [id number] [place], FENTANYL Positive Abnormal Negative [facility] Comment on above: Order Comment: This [...] toxicology consultation please call the laboratory at [phone]. Performed By: #### T OX SC ####S PATHOLOGY [id number] [place], HYDROCODONE (PM) Negative Normal Negative [facility] Comment on above: Order Comment: This [...] toxicology consultation please call the laboratory at [phone]. Performed By: #### T OX MI ####[facility] PATHOLOGY [id number] [place], Methadone Ql (U) Negative Normal Negative [facility] Comment on above: Order Comment: This [...] toxicology consultation please call the laboratory at [phone]. Performed By: #### T OX MI ####S PATHOLOGY [id number] [place], NORBUPRENORPHINE Negative Normal Cutoff: 10 ng/mL [facility] Comment on above: Order Comment: This [...] toxicology consultation please call the laboratory at [phone]. Performed By: #### T OX SC ####S PATHOLOGY [id number] [place], OPIATE Negative Normal Negative [facility] Comment on above: Order Comment: This toxicology [...] toxicology consultation please call the laboratory at [phone]. Performed By: #### T OX SC ####S PATHOLOGY [id number] [place], OXYCODONE Positive Abnormal Cutoff: 100 [facility] Comment on above: Order Comment: This [...] toxicology consultation please call the laboratory at [phone]. Result Comment: Oxyc odone and metabolites of Oxycodone (Oxymorphone, Noroxycodone, and Noroxymorphone) are measured/detected in this assay method. Performed By: #### T OX SC ####S PATHOLOGY [id number] [place], PHENCYCL Negative Normal Negative [facility] Comment on above: Order Comment: This [...] toxicology consultation please call the laboratory at [phone]. Performed By: #### T OX MI ####[facility] PATHOLOGY [id number] [place], [address] THC CL Negative Normal Negative [facility] Comment on above: Order Comment: This [...] toxicology consultation please call the laboratory at [phone]. Performed By: #### T OX MI ####[facility] PATHOLOGY [id number] [place], [address] AMPH Negative Normal Negative [facility] Comment on above: Order Comment: This [...] toxicology consultation please call the laboratory at [phone]. Performed By: #### T OX MI ####[facility] PATHOLOGY [id number] [place], BARBIT Negative Normal Negative [facility] Comment on above: Order Comment: This [...] toxicology consultation please call the laboratory at [phone]. Performed By: #### T OX MI ####S PATHOLOGY [id number] [place], BENZO Positive Abnormal Negative [facility] Comment on above: Order Comment: This [...] toxicology consultation please call the laboratory at [phone]. Performed By: #### T OX MI ####S PATHOLOGY [id number] [place], COCAINE CL Negative Normal Negative [facility] Comment on above: Order Comment: This [...] toxicology consultation please call the laboratory at [phone]. Performed By: #### T OX SC ####S PATHOLOGY [id number] [place], Ethanol [Mass/Vol] Negative Normal Cutoff: 1 0 mg/dL [facility] Comment on above: Order Comment: This [...] toxicology consultation please call the laboratory at [phone]. Performed By: #### T OX SC ####S PATHOLOGY [id number] [place], FENTANYL Positive Abnormal Negative [facility] Comment on above: Order Comment: This [...] toxicology consultation please call the laboratory at [phone]. Performed By: #### T OX SC ####S PATHOLOGY [id number] [place], HYDROCODONE (PM) Negative Normal Negative [facility] Comment on above: Order Comment: This [...] toxicology consultation please call the laboratory at [phone]. Performed By: #### T OX SC ####[facility] PATHOLOGY [id number] [place] [address], Methadone Ql (U) Negative Normal Negative [facility] Comment on above: Order Comment: This [...] toxicology consultation please call the laboratory at [phone]. Performed By: #### T OX SC ####S PATHOLOGY [id number] [place], NORBUPRENORPHINE Negative Normal Cutoff: 10 ng/mL [facility] Comment on above: Order Comment: This [...] toxicology consultation please call the laboratory at [phone]. Performed By: #### T OX SC ####S PATHOLOGY [id number] [place], OPIATE Negative Normal Negative [facility] Comment on above: Order Comment: This toxicology [...] toxicology consultation please call the laboratory at [phone]. Performed By: #### T OX SC ####[facility] PATHOLOGY [id number] [place], OXYCODONE Positive Abnormal Cutoff: 100 [facility] Comment on above: Order Comment: This [...] toxicology consultation please call the laboratory at [phone]. Result Comment: Oxyc odone and metabolites of Oxycodone (Oxymorphone, Noroxycodone, and Noroxymorphone) are measured/detected in this assay method. Performed By: #### T OX SC ####S PATHOLOGY [id number] [place], PHENCYCL Negative Normal Negative [facility] Comment on above: Order Comment: This [...] toxicology consultation please call the laboratory at [phone]. Performed By: #### T OX MI ####S PATHOLOGY [id number] [place], THC CL Negative Normal Negative [facility] Comment on above: Order Comment: This [...] toxicology consultation please call the laboratory at [phone]. Performed By: #### T OX MI ####S PATHOLOGY [id number] [place], URINALYSISon 02-07-2021 Glucose Ql (U) Negative Normal Negative [facility] [employer] Comment on above: Order Comment: A neg [...] around 50%) Performed By: #### u rinalysis ####[facility] PATHOLOGY [id number] [place], Protein (U) [Mass/Vol] 30 mg/dL Abnormal Negative Th [facility] Comment on above: Order Comment: A [...] around 50%) Performed By: #### u rinalysis ####[facility] PATHOLOGY [id number] [place] [address], SQUAMOUS EPITHELIAL 0-2 Normal 0-10 [facility] Comment on above: Order Comment: A [...] around 50%) Performed By: #### u rinalysis ####[facility] PATHOLOGY [id number] [place], U APPEAR Hazy Normal Clear [facility] Comment on above: Order Comment: A [...] Performed By: #### u rinalysis ####S PATHOLOGY [id number] [place], [place] BILI Negative Normal Negative [facility] Comment on above: Order Comment: A [...] around 50%) Performed By: #### u rinalysis ####[facility] PATHOLOGY [id number] [place] [address], U BLOOD Moderate Abnormal Negative [facility] Comment on above: Order Comment: A [...] around 50%) Performed By: #### u rinalysis ####[facility] PATHOLOGY [id number] [place] [address], U COLOR Yellow Normal Yellow [facility] Comment on above: Order Comment: A [...] around 50%) Performed By: #### u rinalysis ####[facility] PATHOLOGY [id number] [place] [address], U KETONE Negative Normal Negative [facility] Comment on above: Order Comment: A [...] Performed By: #### u rinalysis ####S PATHOLOGY [id number] [place], [place] LEUK Negative Normal Negative [facility] Comment on above: Order Comment: A [...] Performed By: #### u rinalysis ####S PATHOLOGY [id number] [place], [place] MUCOUS Present Normal [facility] Comment on above: Order Comment: A [...] Performed By: #### u rinalysis ####S PATHOLOGY [id number] [place], [place] NITRITE Negative Normal Negative [facility] Comment on above: Order Comment: A [...] around 50%) Performed By: #### u rinalysis ####[facility] PATHOLOGY [id number] [place], U PH 5.0 Normal 5.0-8.0 [facility] Comment on above: Order Comment: A [...] around 50%) Performed By: #### u rinalysis ####[facility] PATHOLOGY [id number] [place], U RBC 31-100 Abnormal 0-2 [facility] Comment on above: Order Comment: A [...] around 50%) Performed By: #### u rinalysis ####[facility] PATHOLOGY [id number] [place], U SG 1.045 High 1.005-1.030 [facility] Comment on above: Order Comment: A [...] around 50%) Performed By: #### u rinalysis ####[facility] PATHOLOGY [id number] [place], [place], U UROBILI Negative Normal 0.1 - 1.0 [facility] Comment on above: Order Comment: A [...] around 50%) Performed By: #### u rinalysis ####[facility] PATHOLOGY [id number] [place], [place], U WBC 3-5 Abnormal 0-2 [facility] Comment on above: Order Comment: A [...] around 50%) Performed By: #### u rinalysis ####[facility] PATHOLOGY [id number] [place], URINE MYOGLOBINon 02-07-2021 U CARLA Negative Normal Negative [facility] Comment on above: Performed By: #### U CARLA ####[facility] [id number] [place], XR ANKLE LEFTon 02-07-2021 XR ANKLE LEFT Normal [facility] XR ANKLE RIGHT 2 VIEWon 01-29 XR ANKLE RIGHT 2 VIEW Normal [facility] XR CHEST AP OR PA 1 VIEWon 0 02-07-2021 XR CHEST AP OR PA 1 VIEW Normal [facility] XR CHEST AP OR PA 1 VIEW Normal [facility] BASIC METABOLIC PANELon Anion gap [Moles/Vol] 9 mmol/L Normal 5-13 [facility] Comment on above: Performed By: #### C H8, CK, MG, HEPATIC, PHOS ####[facility] [id number] [place], Calcium [Mass/Vol] 6.5 mg/dL Low 8.4-10.4 [facility] Comment on above: Performed By: #### C H8, CK, MG, HEPATIC, PHOS ####[facility] [id number] [place], Chloride [Moles/Vol] 113 mmol/L High 97-111 [facility] Comment on above: Performed By: #### C H8, CK, MG, HEPATIC, PHOS ####[facility] [id number] [place], CO2 [Moles/Vol] 18 mmol/L Low 21-30 [facility] Comment on above: Performed By: #### C H8, CK, MG, HEPATIC, PHOS ####[facility] [id number] [place], Creatinine [Mass/Vol] 0.96 mg/dL Normal 0.80-1.30 [facility] Comment on above: Performed By: #### C H8, CK, MG, HEPATIC, PHOS ####[facility] [id number] [place], ESTIMATED GFR (CKD-EPI) 78 mL/min/1.73sqm Normal >=60 [facility] Comment on above: Performed By: #### C H8, CK, MG, HEPATIC, PHOS ####S PATHOLOGY [id number] [place], Glucose [Mass/Vol] 87 mg/dL Normal 80-116 [facility] Comment on above: Performed By: #### C H8, CK, MG, HEPATIC, PHOS ####[facility] PATHOLOGY [id number] [place], Potassium [Moles/Vol] 4.2 mmol/L Normal 3.3-5.3 [facility] Comment on above: Result Comment: Hemo lysis present Performed By: #### C H8, CK, MG, HEPATIC, PHOS ####[facility] PATHOLOGY [id number] [place], Sodium [Moles/Vol] 136 mmol/L Normal 135-148 [facility] Comment on above: Performed By: #### C H8, CK, MG, HEPATIC, PHOS ####[facility] PATHOLOGY [id number] [place] [address], Urea nitrogen [Mass/Vol] 26 mg/dL High 8-22 [facility] Comment on above: Performed By: #### C H8, CK, MG, HEPATIC, PHOS ####[facility] PATHOLOGY [id number] [place] [address], BLOOD GAS, ARTERIALon 2020 CR MAYCOL -4.6 mmol/L Low -2.0-2.0 [facility] Comment on above: Performed By: #### C R BGA ####S PATHOLOGY [id number] [place] [address], CR PCO2 37.3 mm Hg Normal 35.0-45.0 [facility] Comment on above: Performed By: #### C R BGA ####[facility] [id number] [place] [address], CR PHA 7.349 Low 7.35-7.45 [facility] Comment on above: Performed By: #### C R BGA ####S PATHOLOGY [id number] [place] [address], CR PO2 113 mm Hg High 80-100 mm Hg [facility] Comment on above: Performed By: #### C R BGA ####[facility] PATHOLOGY [id number] [place] [address], FIO2 (CATEGORY) 40% Normal [facility] Comment on above: Performed By: #### C R BGA ####[facility] PATHOLOGY [id number] [place], HCO3 (Bld) [Moles/Vol] 20 mmol/L Low 22-28 e [facility] Comment on above: Performed By: #### C R BGA ####[facility] PATHOLOGY [id number] [place] [address], MODE Vent Normal [facility] Comment on above: Result Comment: 500 x 16 +5 Performed By: #### C R BGA ####[facility] PATHOLOGY [id number] [place] [address], Oxygen saturation in Blood 98.2 % Normal >=95.1 [facility] Comment on above: Performed By: #### C R BGA ####[facility] PATHOLOGY [id number] [place] [address], CBC WITH DIFFERENTIALon 06-0 -2020 Basophils (Bld) [#/Vol] 0.02 10*3/uL Normal 0.00-0.20 [facility] Comment on above: Performed By: #### C BCDSAT ####[facility] PATHOLOGY [id number] [place] [address], Basophils/100 WBC (Bld) 0.2 % Normal <=1.9 [facility] Comment on above: Performed By: #### C BCDSAT ####[facility] PATHOLOGY [id number] [place] [address], Eosinophils (Bld) [#/Vol] 0.00 10*3/uL Normal 0.00-0.70 [facility] Comment on above: Performed By: #### C BCDSAT ####[facility] PATHOLOGY [id number] [place] [address], Eosinophils/100 WBC (Bld) 0.0 % Low 0.1-4.0 [facility] Comment on above: Performed By: #### C ALEJANDROAT ####[facility] PATHOLOGY [id number] [place], Erythrocyte distribution width (RBC) [Ratio] 14.6 % High 11.5-14.5 [facility] Comment on above: Performed By: #### C ALEJANDROAT ####[facility] PATHOLOGY [id number] [place] [address], Hematocrit (Bld) [Volume fraction] 37.5 % Low 41.0-53.0 [facility] Comment on above: Performed By: #### C ALEJANDROAT ####[facility] PATHOLOGY [id number] [place] [address], Hemoglobin (Bld) [Mass/Vol] 12.2 g/dL Low 13.9-16.3 [facility] Comment on above: Performed By: #### C ALEJANDROAT ####[facility] PATHOLOGY [id number] [place] [address], Lymphocytes (Bld) [#/Vol] 1.55 10*3/uL Normal 1.00-4.80 [facility] Comment on above: Performed By: #### C ALEJANDROAT ####[facility] PATHOLOGY [id number] [place] [address], Lymphocytes/100 WBC (Bld) 12.9 % Low 24.0-44.0 [facility] Comment on above: Performed By: #### C ALEJANDROAT ####S PATHOLOGY [id number] [place], MCH (RBC) [Entitic mass] 30.6 pg Normal 26.0-34.0 [facility] Comment on above: Performed By: #### C ALEJANDROAT ####S PATHOLOGY [id number] [place], MCHC (RBC) [Mass/Vol] 32.5 g/dL Normal 32.0-35.9 [facility] Comment on above: Performed By: #### C ALEJANDROAT ####S PATHOLOGY [id number] [place], MCV (RBC) [Entitic vol] 94 fL Normal 80-100 [facility] Comment on above: Performed By: #### Austyn ALLENAT ####[facility] PATHOLOGY [id number] [place], MONOCYTE DISTRIBUTION WIDTH 22 High <=20 [facility] Comment on above: Performed By: #### Austyn ALLENAT ####[facility] PATHOLOGY [id number] [place], Monocytes (Bld) [#/Vol] 1.48 10*3/uL High 0.20-1.00 [facility] Comment on above: Performed By: #### Austyn ALLENAT ####[facility] PATHOLOGY [id number] [place], Monocytes/100 WBC (Bld) 12.4 % High 2.0-11.0 [facility] Comment on above: Performed By: #### Austyn ALLENAT ####[facility] PATHOLOGY [id number] [place] [address], Neutrophils (Bld) [#/Vol] 8.92 10*3/uL High 1.50-8.00 [facility] Comment on above: Performed By: #### Austyn ALLENAT ####[facility] PATHOLOGY [id number] [place], Neutrophils/100 WBC (Bld) 74.5 % Normal 31.0-76.0 [facility] Comment on above: Performed By: #### Austyn ALLENAT ####[facility] PATHOLOGY [id number] [place], Platelet mean volume (Bld) [Entitic vol] 11.2 fL Normal 7.5-11.2 [facility] Comment on above: Performed By: #### Austyn ALLENAT ####[facility] PATHOLOGY [id number] [place], Platelets (Bld) [#/Vol] 96 10*3/uL Low 150-400 [facility] Comment on above: Performed By: #### C BCDSAT ####[facility] [id number] [place], RBC (Bld) [#/Vol] 3.98 10*6/uL Low 4.50-5.90 [facility] Comment on above: Performed By: #### C BCDSAT ####[facility] PATHOLOGY [id number] [place], WBC (Bld) [#/Vol] 12.0 10*3/uL High 4.5-11.5 [facility] Comment on above: Performed By: #### C BCDSAT ####[facility] PATHOLOGY [id number] [place], COMPLETE BLOOD COUNTon 02-06 Erythrocyte distribution width (RBC) [Ratio] 14.8 % High 11.5-14.5 [facility] Comment on above: Performed By: #### C BC ####[facility] PATHOLOGY [id number] [place] [address], Hematocrit (Bld) [Volume fraction] 36.9 % Low 41.0-53.0 [facility] Comment on above: Performed By: #### C BC ####[facility] PATHOLOGY [id number] [place], Hemoglobin (Bld) [Mass/Vol] 12.0 g/dL Low 13.9-16.3 [facility] Comment on above: Performed By: #### C BC ####[facility] PATHOLOGY [id number] [place], MCH (RBC) [Entitic mass] 30.5 pg Normal 26.0-34.0 [facility] Comment on above: Performed By: #### C BC ####[facility] PATHOLOGY [id number] [place], MCHC (RBC) [Mass/Vol] 32.4 g/dL Normal 32.0-35.9 [facility] Comment on above: Performed By: #### C BC ####[facility] PATHOLOGY [id number] [place], MCV (RBC) [Entitic vol] 94 fL Normal 80-100 [facility] Comment on above: Performed By: #### C BC ####S PATHOLOGY [id number] [place], Platelet mean volume (Bld) [Entitic vol] 10.5 fL Normal 7.5-11.2 [facility] Comment on above: Performed By: #### C BC ####S PATHOLOGY [id number] [place], Platelets (Bld) [#/Vol] 100 10*3/uL Low 150-400 [facility] Comment on above: Performed By: #### C BC ####[facility] PATHOLOGY [id number] [place], RBC (Bld) [#/Vol] 3.92 10*6/uL Low 4.50-5.90 [facility] Comment on above: Performed By: #### C BC ####[facility] PATHOLOGY [id number] [place], WBC (Bld) [#/Vol] 12.6 10*3/uL High 4.5-11.5 [facility] Comment on above: Performed By: #### C BC ####S PATHOLOGY [id number] [place], CREATINE KINASEon 02-06-2021 CK [Catalytic activity/Vol] 1957 U/L High 57-374 [facility] Comment on above: Performed By: #### C H8, CK, MG, HEPATIC, PHOS ####[facility] PATHOLOGY [id number] [place], [place], CT C-SPINE W/O CONTRASTon CT C-SPINE W/O CONTRAST Normal [facility] CTA HEAD/NECK W/+W/O CONTRAS Ton 02-06-2021 CTA HEAD/NECK W/+W/O CONTRAST Normal [facility] Consultson 02-06-2021 Formal Waiter/Waitress Authentication Interface Message Text Normal [facility] ED Provider Noteson 02-07-20 Formal Waiter/Waitress Authentication Interface Message Text Normal [facility] ED Triage Noteson 02-06-2021 Formal Waiter/Waitress Authentication Interface Message Text 75M, found down, unresponsive Normal [facility] ETHANOL, SERUMon 02-06-2021 ETHANOL Normal None Detected [facility] Comment on above: Result Comment: Karyna sly hemolyzed, result is invalid.This is a corrected result. Previous result on 02/06/2021 at 1508 EDT was <5 mg/dL Performed By: #### E TOMAS ####[facility] [id number] [place], GLUCOSE, FINGERSTICK-IN OFFI CEon 02-06-2021 Glucose [Mass/Vol] 97 mg/dL Normal 80-116 [facility] Comment on above: Performed By: #### 8 2948 ####NURSING GLUCOSE [id number] [place], [address] Glucose [Mass/Vol] 108 mg/dL Normal 80-116 [facility] Comment on above: Performed By: #### 8 2948 ####NURSING GLUCOSE [id number] [place], [address] H AND Martin 02-06-2021 Formal Waiter/Waitress Authentication Interface Message Text Normal [facility] HEPATIC FUNCTION PANELon Albumin [Mass/Vol] 2.4 g/dL Low 3.4-5.1 [facility] Comment on above: Performed By: #### C H8, CK, MG, HEPATIC, PHOS ####[facility] [id number] [place], ALK 27 IU/L Low 40-200 [facility] Comment on above: Performed By: #### C H8, CK, MG, HEPATIC, PHOS ####[facility] [id number] [place], ALT [Catalytic activity/Vol] 20 U/L Normal 7-40 [facility] Comment on above: Performed By: #### C H8, CK, MG, HEPATIC, PHOS ####[facility] [id number] [place], AST [Catalytic activity/Vol] 48 U/L High 7-40 [facility] Comment on above: Result Comment: Hemo lysis present Performed By: #### C H8, CK, MG, HEPATIC, PHOS ####S PATHOLOGY [id number] [place], Bilirubin [Mass/Vol] 1.3 mg/dL Normal 0.1-1.5 [facility] Comment on above: Performed By: #### C H8, CK, MG, HEPATIC, PHOS ####[facility] PATHOLOGY [id number] [place], Bilirubin.direct [Mass/Vol] 0.20 mg/dL Normal 0.10-0.30 [facility] Comment on above: Performed By: #### C H8, CK, MG, HEPATIC, PHOS ####[facility] PATHOLOGY [id number] [place], Protein [Mass/Vol] 3.8 g/dL Low 5.7-8.1 [facility] Comment on above: Performed By: #### C H8, CK, MG, HEPATIC, PHOS ####[facility] PATHOLOGY [id number] [place] [address], LACTIC ACIDon 02-06-2021 CR LACT 0.9 mmol/L Normal 0.5-2.0 [facility] Comment on above: Performed By: #### L ACT ####[facility] PATHOLOGY [id number] [place] [address], CR LACT 2.8 mmol/L High 0.5-2.0 [facility] Comment on above: Performed By: #### L ACT ####[facility] PATHOLOGY [id number] [place] [address], MAGNESIUMon 02-06-2021 Magnesium [Mass/Vol] 2.2 mg/dL Normal 1.6-2.8 [facility] Comment on above: Result Comment: Hemo lysis present Performed By: #### C H8, CK, MG, HEPATIC, PHOS ####S PATHOLOGY [id number] [place], PARTIAL THROMBOPLASTIN TIMEo n 02-06-2021 aPTT Coag (Bld) [Time] 28 s Normal 25-37 Th e [facility] Comment on above: Performed By: #### A PTT, PT ####S PATHOLOGY [id number] [place], PHOSPHORUSon 02-06-2021 Phosphate [Mass/Vol] 2.4 mg/dL Normal 2.3-4.2 [facility] Comment on above: Performed By: #### C H8, CK, MG, HEPATIC, PHOS ####[facility] PATHOLOGY [id number] [place], PROTHROMBIN TIME AND INRon 0 02-06-2021 INR Coag (PPP) [Relative time] 1.27 {INR} High 0.90-1.10 [facility] Comment on above: Performed By: #### A PTT, PT ####S PATHOLOGY [id number] [place], PT Coag (PPP) [Time] 14.3 s High 9.7-12.9 [facility] Comment on above: Performed By: #### A PTT, PT ####[facility] PATHOLOGY [id number] [place], Progress Noteson 02-06-2021 Formal Waiter/Waitress Authentication Interface Message Text Normal [facility] Formal Waiter/Waitress Authentication Interface Message Text Normal [facility] Formal Waiter/Waitress Authentication Interface Message Text Normal [facility] TROPONIN Ion 02-06-2021 TROP I 0.102 ng/mL Normal <0.120 [facility] Comment on above: Result Comment: Rang [...] By: #### T ROP I ####S PATHOLOGY [id number] [place], TYPE AND SCREENon 02-06-2021 ABO and Rh group Nom (Bld) Blood group A Rh(D) positive Normal [facility] Comment on above: Performed By: #### T S ####[facility] [id number] [place], ABO and Rh group Nom (Bld) No Previous Results Normal [facility] Comment on above: Performed By: #### T S ####[facility] [id number] [place], ABSC INT Negative Normal [facility] Comment on above: Performed By: #### T S ####S PATHOLOGY [id number] [place], XR ANKLE LEFTon 02-06-2021 XR ANKLE [...] RIGHT Normal [facility] Dermatopathologyon Dermatopathology [facility] Dermatopathology Laboratory [address] [place] [id number] DERMATOPATHOLOGY REPORT Name:KEI ACUNA [facility]. Rec #. [id number] Location: [facility] Date of Procedure: 04/05/2020 Race: Date Received: 04/09/2020 /Sex: 1945 (Age: 74) / M Date Reported: 04/10/2020 Other: Submitting Physician:VICTORINA WILKS MD FINAL DIAGNOSIS SKIN, L CHEEK, BIOPSY: ACTINIC KERATOSIS WITH ADNEXAL INVOLVEMENT, PRESENT ON THE DEEP AND PERIPHERAL MARGIN. Electronically Signed Out by BROCK OTT M.D. Electronically Signed Out By BROCK OTT MD/[facility] By the signature on this report, the individual or group listed as making the Final Interpretation/Diagno sis certifies that they have reviewed this case. Clinical History: 1.0x0.8cm AK vs. SCC. Biopsy. Specimens Submitted As: A: SKIN, L CHEEK Gross Description: Received in formalin is a huang piece of skin measuring [id number]. The specimen is inked and embedded in toto. /04/09/2020 Microscopic Description: Microscopic analysis shows disordered keratinocyte proliferation with focal areas of parakeratosis and atrophy. Crowding of basal keratinocyte nuclei is present, and the atypia involves the lower one-third of the epidermis. The actinic keratosis lines adnexal epithelium, and the lesion may extend more deeply than apparent in these sections, via the adnexae. The dermis shows elastotic actinic damage. Normal [facility] Comment on above: Performed By: #### D #### Dermatopathology Vital Signs Date Time Vital Sign Value Performing Clinician Faci lity 07-07-2024 15:25-0500 Body height 180.3 cm Jake Ireland [employer] Phone: [facility] [place] 07-07-2024 15:25-0500 Body mass index (BMI) [Ratio] 30.68 kg/m2 Jake Ireland [employer] Phone: [facility] [place] 07-07-2024 15:25-0500 Body weight 99.79 kg Jake Ireland [employer] Phone: [facility] [place] 07-07-2024 15:25-0500 Diastolic blood pressure 80 mm[Hg] Jake Ireland [employer] Phone: [facility] [place] 07-07-2024 15:25-0500 Heart rate 68 /min Jake Ireland [employer] Phone: [facility] [place] 07-07-2024 15:25-0500 SaO2% (BldA) [Mass fraction] 95 % Jake Ireland [employer] Phone: [facility] [employer] 07-07-2024 15:25-0500 Systolic blood pressure 150 mm[Hg] Jake Ireland [employer] Phone: [facility] 10-15-2023 13:16-0500 Body height 180.3 cm Gigi Yu DPM Work Phone: [facility] 10-15-2023 13:16-0500 Body mass index (BMI) [Ratio] 29.57 kg/m2 Gigi Yu DPM Work Phone: [facility] 10-15-2023 13:16-0500 Body weight 96.16 kg Gigi Yu DPM Work Phone: [facility] 10-15-2023 13:16-0500 Diastolic blood pressure 81 mm[Hg] Gigi Yu DPM Work Phone: [facility] 10-15-2023 13:16-0500 Heart rate 88 /min Gigi Yu DPM Work Phone: [facility] 10-15-2023 13:16-0500 Systolic blood pressure 130 mm[Hg] Gigi Yu DPM Work Phone: [facility] Healthcare Encounters Encounter Date Encounter Type Care Provider Facility Start: 07-07-2024 End: 07-07-2024 Office outpatient visit 40 minutes Jake Ireland DO Work Phone: [facility] Comment on above: 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, NYHA class 2 (CMS/HCC) (Primary Dx); Atherosclerosis of coronary artery of tribe heart without angina pectoris, unspecified vessel or lesion type (CMS/HCC); Essential hypertension (CMS/HCC); Paroxysmal atrial fibrillation (CMS/HCC); Peripheral vascular disease (CMS/HCC); ASD (atrial septal defect); Hyperuricemia; Chronic obstructive pulmonary disease, unspecified COPD type (CMS/HCC); Chronic pain syndrome Start: 07-07-2024 End: 07-07-2024 ambulatory JAKE IRELAND Not Available Start: 07-04-2024 ambulatory [facility] Start: 07-04-2024 End: 07-04-2024 ambulatory [facility] Start: 06-22-2024 End: 06-22-2024 ambulatory Meghana Lees ARTIST [employer]NE[employer]OR[employer] Work Phone: [facility] Start: 06-03-2024 End: 06-03-2024 ambulatory [facility] Start: 05-19-2024 End: 05-19-2024 ambulatory GIGI YU Not Available Start: 05-09-2024 End: 05-09-2024 ambulatory [facility] Start: 04-25-2024 End: 04-25-2024 ambulatory JAKE IRELAND Not Available Start: 04-05-2024 End: 04-05-2024 ambulatory SWAPNA FONSECA Not Available Start: 03-10-2024 End: 03-10-2024 ambulatory GIGI YU Not Available Start: 02-24-2024 End: 02-24-2024 ambulatory JUAN RAMON FERRARA Not Available Start: 02-11-2024 End: 02-11-2024 ambulatory GIGI YU Not Available Start: 12-31-2023 End: 12-31-2023 ambulatory JAKE IRELAND Not Available Start: 12-24-2023 End: 12-24-2023 ambulatory GIGI UY Not Available Start: 11-30-2023 End: 12-01-2023 ambulatory SWAPNA FONSECA Facility:[facility] Start: 11-30-2023 End: 11-30-2023 Patient encounter procedure [place] MATTHEWS [facility] Start: 10-15-2023 Chart abstracting Gigi husain DPM Work Phone: [facility] Start: 10-15-2023 End: 10-15-2023 Office outpatient visit 15 minutes Gigi Yu DPM Work Phone: [facility] Comment on above: Venous insufficiency (Primary Dx); Other polyneuropathy; Onychomycosis; Toe pain, right; Toe pain, left; DJD (degenerative joint disease), ankle and foot, left Start: 10-15-2023 End: 10-15-2023 ambulatory GIGI YU Not Available Start: 09-17-2023 ambulatory SWAPNA FONSECA Facility :[facility] Start: 09-10-2023 End: 09-10-2023 ambulatory JAKE IRELAND Not Available Start: 02-12-2023 End: 09-10-2023 Patient encounter procedure Gigi Yu DPM Work Phone: [facility] Start: 11-10-2022 End: 11-11-[address] JAKE IRELAND Facility:[facility] Start: 07-08-2022 End: 07-09-[address] JAKE IRELAND Facility:[facility] Start: 02-19-2022 End: 02-20-[address] JAKE IRELAND Facility:[facility] Start: 08-08-2021 End: 08-08-2021 ambulatory [...] Start: 02-06-2021 End: 02-06-2021 ambulatory UNKNOWN [facility]ER [facility] Procedures Date Procedure Procedure Detail Performing Clinician Start: 07-08-[address] RADHA IRELAND Comment on above: Performed By: #### P PEYTON VENTURA, EVITAAustyn #### [facility] [address] [address] [address] Karen Marie Colonoscopy Lincoln MATTHEWS Extraction of cataract Adam MATTHEWS Comment on above: Bilateral Eye Surgery Lincoln MATTHEWS Hernia repair Lincoln MATTHEWS Tonsillectomy Lincoln MATTHEWS Plan of Treatment Date Care Activity Detail Author Start: 04-05-2025 Medicare Annual Well ness (AWV) Medicare Annual Wellness (AWV) [facility] Start: 08-04-2024 End: 08-04-2024 Patient encounter procedure 08/04/2024 1:30 PM EST Procedure Visit [facility] [address] [facility] [address] [place] [phone] Gigi Yu DPM [address] [facility] [address] [place] [address] [facility] Start: 07-07-2024 End: 07-07-2024 Patient encounter procedure 07/07/2024 3:00 PM EST Office Visit [facility] [address] [place] [phone] Jake Ireland, [address] [place] [address] [facility] Start: 02-13-2024 Medicare Annual Well ness (AWV) Medicare Annual Wellness (AWV) [facility] Start: 12-31-2023 End: 12-31-2023 Patient encounter procedure 12/31/2023 11:15 AM EDT Office Visit [facility] [address] [place] [phone] Jake Ireland, [address] [place] [address] [facility] Start: 10-15-2023 End: 10-15-2023 Patient encounter procedure 10/15/2023 1:30 PM EST Procedure Visit [facility] [address] [facility] [address] [place] [address] Gigi Yu, DPM [address] [facility] [address] [place] [address] [facility] Immunizations Immunization Date Immunization Notes Care Provider Fa cili 06-12-2024 influenza, high dose seasonal, preservative-free Jake Ireland DO Work Phone: [facility] 04-05-2024 Pneumococcal Conjuga te PCV 20 Meghana Lees [employer] Work Phone: [facility] 08-18-2023 Pneumococcal Conjuga te PCV 20 Gigi Yu DPM Work Phone: [facility] 05-11-2023 Influenza, Seasonal, Quadrivalent, Adjuvanted Gigi Yu DPM Work Phone: [facility] 10-03-2020 Pfizer Purple Cap SARS-CoV-2 Vaccination Meghana Lees ARTIST [employer] Work Phone: [facility] 05-06-2016 pneumococcal conjuga te vaccine, 13 valent Meghana Lees ARTIST [employer] Work Phone: [facility] 02-23-2015 pneumococcal polysaccharide vaccine, 23 valent Meghana Lees ARTIST [employer] Work Phone: [facility] Payers Date Payer Category Payer Medicare [facility] [employer] [facility] [facility] [employer] [id number] 2019-Present [address] [place] [address] [id number] 2019 Medicare (Managed Care) [employer] [id number] 2018 Medicaid [id number]. [id number] 1959 Medicaid [id number] 1959 Medicare [id number] 1945 Unknown [id number] 2.16.840.1.541716.3.579.2. 1945 Unknown [id number] 2.16840.1.920168.3.579.2. 73 1946 Unknown [id number] 2.16840.1.936915.3.579.2. 73 1946 Unknown [id number] 2.16840.1.399795.3.579.2. 73 1946 Unknown [id number] 2.16.840.1.483950.3.579.2. 73 1946 Unknown [id number] 2.16840.1.579376.3.579.2. 73 1946 Unknown [id number] 2.16.840.1.484262.3.579.2. 73 1946 Unknown [id number] 2.16.840.1.537878.3.579.2. 73 1946 Unknown [id number] 2.16840.1.314832.3.579.2. 73 1946 Unknown [id number] 2.16.840.1.366256.3.579.2. 73 1946 Unknown [id number] 2.16.840.1.664787.3.579.2. 732 1946 Unknown [id number] 2.16.840.1.021580.3.579.2. 73 1946 Unknown [id number] 2.16.840.1.783036.3.579.2. 732 1946 Unknown [id number] 2.16.840.1.812585.3.579.2. 1946 Unknown [id number] 2.16.840.1.952835.3.579.2. 73 1946 Unknown [id number] 2.16840.1.891752.3.579.2. 1946 Unknown [id number] 2.16840.1.002247.3.579.2. 1946 Unknown [id number] 2.840.1.108004.3.579.2. 1946 Unknown [id number] 2.16840.1.419427.3.579.2. 1946 Unknown [id number] 2.16840.1.366623.3.579.2 1946 Unknown [id number] 2.16840.1.057517.3.579.2. 1946 Unknown [id number] 2.16840.1.791700.3.579.2. 1946 Unknown [id number] 2.16840.1.621609.3.579.2. 1946 Unknown [id number] 2.16.840.1.910403.3.579.2. 1946 Unknown [id number] 2.16.840.1.324137.3.579.2. 1946 Unknown [id number] 2.16.840.1.002932.3.579.2. 732 1946 Unknown [id number] 2.16.840.1.840892.3.579.2. 732 1946 Unknown [id number] 2.16.840.1.009750.3.579.2. 732 1946 Unknown [id number] 2.16.840.1.098254.3.579.2. 1946 Unknown [id number] 2.16.840.1.823812.3.579.2. 1946 Unknown [id number] 2.16.840.1.610929.3.579.2. 1946 Unknown [id number] 2.16.840.1.739287.3.579.2. 1946 Unknown [id number] 2.16.840.1.630829.3.579.2 1946 Unknown [id number] 2.16.840.1.137387.3.579.2. 1946 Unknown [id number] 2.16.840.1.424196.3.579.2. 1946 Unknown [id number] 2.16.840.1.720262.3.579.2. 1946 Unknown [id number] 2.16.840.1.826401.3.579.2. 1946 Unknown [id number] 2.16.840.1.672392.3.579.2. 1946 Unknown [id number] 2.16.840.1.190077.3.579.2. 1946 Unknown [id number] 2.16.840.1.600284.3.579.2. 1946 Unknown [id number] 2.16.840.1.410743.3.579.2 1946 Unknown [id number] 2.16.840.1.984936.3.579.2. 593 1946 Unknown [id number] 2.16.840.1.597436.3.579.2. 593 1946 Unknown [id number] 2.16.840.1.130096.3.579.2. 593 1946 Unknown [id number] 2.16.840.1.288361.3.579.2. 727 1946 Unknown [id number] 2.16.840.1.802669.3.579.2. 1259 1946 Unknown [id number] 2.16.840.1.139173.3.579.2. 1259 1946 Unknown [id number] 2.16.840.1.976249.3.579.2. 1259 1946 Unknown [id number] 2.16.840.1.369355.3.579.2. 1259 1946 Unknown [id number] 2.16.840.1.932310.3.579.2. 1259 1946 Unknown [id number] 2.16.840.1.646817.3.579.2. 1259 1946 Unknown [id number] 2.16.840.1.470856.3.579.2. 1259 1946 Unknown [id number] 2.16.840.1.598531.3.579.2. 1259 1946 Unknown [id number] 2.16.840.1.274635.3.579.2. 1259 1946 Unknown [id number] 2.16.840.1.405621.3.579.2. 1259 1946 Unknown [id number] 2.16.840.1.931653.3.579.2. 1259 Social History Date Type Detail Facility Start: 02-12-2023 End: 02-11-2024 Tobacco smoking status NHIS Ex-smoker [facility] End: 07-11-2021 History of tobacco use Current smoker [facility] End: 07-11-2021 History of tobacco use Cigarette Smoker [facility] History of tobacco use Passive smoker [facility] Start: 02-12-2023 End: 02-11-2024 Tobacco use and exposure Smokeless tobacco non-user [facility] Start: 09-10-2023 End: 07-07-2024 Alcohol intake Lifetime non-drinker (finding) [facility] Start: 09-10-2023 End: 04-05-2024 History of Social function [facility] Start: 09-10-2023 End: 04-05-2024 Tobacco use panel [facility] Start: 02-11-2023 Alcohol Comment Caffeine: 1-2 cups/day tea, 7up [facility] Start: 1945 Sex Assigned At Not on file N [facility] Start: 03-26-2020 Tobacco smoking status Never s moked tobacco (finding) [facility] Tobacco smoking status Never [facility] How often to you hav e a drink containing alcohol? Never [facility] Clinical Notes 02-07-2021 to 07-04-2024 KHALIF Ortiz - 06/22/2024 1:32 PM Beni Yu DPM - 10/15/2023 1:30 PM EST Note Date & Type Note Facility 07-04-2024 Note Patient: Kei hallman Procedure Information Date/Time: 07/04/24 1000 Procedure: TRANSESOPHAGEAL ECHO (PAVAN) Location: [facility] Vascular [facility] Clinical information reviewed: Physical Exam Airway Mallampati: III TM distance: >3 FB Neck ROM: full Cardiovascular Rhythm: irregular Rate: abnormal Dental Pulmonary - normal exam Breath sounds clear to auscultation Abdominal Abdomen: soft Anesthesia Plan ASA 3 (Moderate sedation) Anesthetic plan and risks discussed with patient. Use of blood products discussed with patient who consented to blood products. Plan discussed with fellow. Additional Equipment Requests [facility] 06-22-2024 History of Present illness Narrative Message from pt requesting a refill on his pain medication. documented in this encounter [facility] 06-03-2024 Note [facility] Note Reason for cardiology Visit: F/U Congestive heart failure, atrial fibrillation Chief Complaint: legs edema HPI: 06/03/2024 Patient is here today for follow-up after his blood pressure dropped upon increasing metoprolol. Metoprolol was increased to 50 mg twice daily to control the ventricular rate however his blood pressure dropped and he returned back to 25 mg twice daily. Patient denies feeling any palpitation. He has exertional dyspnea but it did not change since last visit. He denies orthopnea or paroxysmal nocturnal dyspnea. He denies dizziness. He continues to have legs edema which is better in the morning. He is trying to sleep in the bed not in the recliner. He did not have the venous study or the sleep study done yet Patient reports that he had stress test in the past and cardiac catheterization probably in 2012 but he did not have enough blockages. He never had A-fib ablation or cardioversion. 05/09/2024 Kei Acuna is a 78 y.o. male with prior history of chronic atrial fibrillation, hypertension, hyperlipidemia, chronic kidney disease and benign prostate hypertrophy He was admitted recently on 04/16/2024 to [facility] with worsening legs edema and shortness of breath. He was felt that he was in congestive heart failure. His echo showed mildly reduced ejection fraction 45 to 50%. BNP initially was normal however it went up later to 3500. He was given Lasix IV and he was discharged home on increased Lasix dose 40 mg daily instead of the 20 mg he was on. Also he was discharged on Toprol-XL 50 mg daily and losartan 25 mg daily In general he feels better. He denies shortness of breath or chest pain at rest or with exertion. He denies orthopnea or paroxysmal nocturnal dyspnea. He denies dizziness or palpitations. He has significant legs edema however he has his legs down most of the time and sometimes he sleeps in a recliner. The legs edema is a chronic problem for 3 years or more. He reports being tired during the daytime. He does not know if he snores or stop breathing during the night. He never been a smoker. He denies alcohol or illicit drugs Cardiology ROS: GENERAL: Denies fever, chills, night sweats, weight loss. HEENT: Denies changes in vision, photophobia, changes in hearing, epistaxis, oral bleeding. CARDIOVASCULAR: Denies chest pain, exertional dyspnea, orthopnea/PND, palpitations, lightheadedness/dizziness. He admits chronic legs edema and it has been worse lately. RESPIRATORY: Denies SOB, coughing, wheezing GI: Denies abdominal pain, nausea/vomiting, heartburn, melena/hematochezia. RENAL: Denies dysuria, hematuria, flank pain. MSK: Denies muscle weakness/pain, arthralgias/joint pain. NEUROLOGIC: Denies LOC, weakness, numbness, headaches. SKIN: Denies abnormal rashes or bleeding. PSYCH: Denies significant anxiety, depression, sleep disturbances. Past Medical History He has a past medical history of Atrial flutter (CMS/HCC), CAD (coronary artery disease), [place] (myocardial infarction) (CMS/HCC), and Pulmonary embolism (CMS/HCC). Surgical History He has a past surgical history that includes Ankle surgery (Left). Social History He reports that he has never smoked. He has never used smokeless tobacco. He reports that he does not drink alcohol. No history on file for drug use. Family History Family History Problem Relation Name Age of Onset No Known Problems Mother No Known Problems Father Allergies Patient has no known allergies. Medications Current Outpatient Medications: aspirin 81 mg chewable tablet, CHEW AND SWALLOW 1 TABLET BY MOUTH ONCE DAILY, Disp: , Rfl: calcium carbonate 600 mg calcium (1,500 mg) tablet, TAKE ONE (1) TABLET BY MOUTH TWICE DAILY WITH MEALS, Disp: , Rfl: cholecalciferol (Vitamin D-3) 25 MCG (1000 units) tablet, Take 25 mcg by mouth in the morning., Disp: , Rfl: Eliquis 5 mg tablet, Take 5 mg by mouth twice a day., Disp: , Rfl: furosemide (Lasix) 20 mg tablet, Take 40 mg by mouth in the morning., Disp: , Rfl: gabapentin (Neurontin) 300 mg capsule, Take 300 mg by mouth twice a day., Disp: , Rfl: losartan (Cozaar) 25 mg tablet, Take 25 mg by mouth in the morning., Disp: , Rfl: metoprolol tartrate (Lopressor) 25 mg tablet, TAKE ONE (1) TABLET BY MOUTH TWICE DAILY WITH FOOD, Disp: , Rfl: omeprazole (PriLOSEC) [address] capsule, Take 40 mg by mouth in the morning., Disp: , Rfl: tiotropium (Spiriva) 18 mcg inhalation capsule, Place 18 mcg into inhaler and inhale in the morning., Disp: , Rfl: tiZANidine (Zanaflex) 4 mg tablet, Take 4 mg by mouth if needed in the morning and at bedtime., Disp: , Rfl: Last Recorded Vitals Visit Vitals BP 98/71 Pulse (!) 116 Ht 1.88 m (6' 2 ) Wt 91.6 kg (202 lb) SpO2 95% BMI 25.94 kg/m??? Smoking Status Never BSA 2.19 m??? Physical Examination: GENERAL: alert and oriented x3, well developed, in no acute distress (more content not included)... [facility] 05-09-2024 Note [facility] Note Reason for cardiology consult: Congestive heart failure, atrial fibrillation Chief Complaint: legs edema HPI: Kei Acuna is a 78 y.o. male with prior history of chronic atrial fibrillation, hypertension, hyperlipidemia, chronic kidney disease and benign prostate hypertrophy He was admitted recently on 04/16/2024 to [facility] with worsening legs edema and shortness of breath. He was felt that he was in congestive heart failure. His echo showed mildly reduced ejection fraction 45 to 50%. BNP initially was normal however it went up later to 3500. He was given Lasix IV and he was discharged home on increased Lasix dose 40 mg daily instead of the 20 mg he was on. Also he was discharged on Toprol-XL 50 mg daily and losartan 25 mg daily In general he feels better. He denies shortness of breath or chest pain at rest or with exertion. He denies orthopnea or paroxysmal nocturnal dyspnea. He denies dizziness or palpitations. He has significant legs edema however he has his legs down most of the time and sometimes he sleeps in a recliner. The legs edema is a chronic problem for 3 years or more. He reports being tired during the daytime. He does not know if he snores or stop breathing during the night. He never been a smoker. He denies alcohol or illicit drugs Cardiology ROS: GENERAL: Denies fever, chills, night sweats, weight loss. HEENT: Denies changes in vision, photophobia, changes in hearing, epistaxis, oral bleeding. CARDIOVASCULAR: Denies chest pain, exertional dyspnea, orthopnea/PND, palpitations, lightheadedness/dizziness. He admits chronic legs edema and it has been worse lately. RESPIRATORY: Denies SOB, coughing, wheezing GI: Denies abdominal pain, nausea/vomiting, heartburn, melena/hematochezia. RENAL: Denies dysuria, hematuria, flank pain. MSK: Denies muscle weakness/pain, arthralgias/joint pain. NEUROLOGIC: Denies LOC, weakness, numbness, headaches. SKIN: Denies abnormal rashes or bleeding. PSYCH: Denies significant anxiety, depression, sleep disturbances. Past Medical History He has a past medical history of Atrial flutter ([facility]), CAD (coronary artery disease), [place] (myocardial infarction) (CMS/HCC), and Pulmonary embolism ([facility]). Surgical History He has a past surgical history that includes Ankle surgery (Left). Social History He reports that he has never smoked. He has never used smokeless tobacco. He reports that he does not drink alcohol. No history on file for drug use. Family History Family History Problem Relation Name Age of Onset No Known Problems Mother No Known Problems Father Allergies Patient has no allergy information on record. Medications Current Outpatient Medications: aspirin 81 mg chewable tablet, CHEW AND SWALLOW 1 TABLET BY MOUTH ONCE DAILY, Disp: , Rfl: atorvastatin (Lipitor) 20 mg tablet, Take 1 tablet by mouth at bedtime., Disp: , Rfl: baclofen (Lioresal) 10 mg tablet, , Disp: , Rfl: benzonatate (Tessalon) 100 mg capsule, TAKE 1 CAPSULE BY MOUTH 3 TIMES A DAY NEEDED FOR COUGH *DO NOT CRUSH OR CHEW*, Disp: , Rfl: calcium carbonate 600 mg calcium (1,500 mg) tablet, TAKE ONE (1) TABLET BY MOUTH TWICE DAILY WITH MEALS, Disp: , Rfl: cholecalciferol (Vitamin D-3) 25 MCG (1000 units) tablet, Take 25 mcg by mouth in the morning., Disp: , Rfl: clindamycin (Cleocin) 300 mg capsule, TAKE 1 CAPSULE BY MOUTH IN THE MORNING, NOON, EVENING, AND BEFORE BEDTIME FOR 7 DAYS, Disp: , Rfl: docusate sodium (Colace) 100 mg capsule, Take 100 mg by mouth twice a day., Disp: , Rfl: Eliquis 5 mg tablet, Take 5 mg by mouth twice a day., Disp: , Rfl: furosemide (Lasix) 20 mg tablet, Take 20 mg by mouth in the morning., Disp: , Rfl: gabapentin (Neurontin) 300 mg capsule, Take 300 mg by mouth twice a day., Disp: , Rfl: losartan (Cozaar) 25 mg tablet, Take 25 mg by mouth in the morning., Disp: , Rfl: methocarbamol (Robaxin) 750 mg tablet, Take 750 mg by mouth., Disp: , Rfl: metoprolol tartrate (Lopressor) 25 mg tablet, TAKE ONE (1) TABLET BY MOUTH TWICE DAILY WITH FOOD, Disp: , Rfl: omeprazole (PriLOSEC) [address] capsule, Take 40 mg by mouth in the morning., Disp: , Rfl: tiotropium (Spiriva) 18 mcg inhalation capsule, Place 18 mcg into inhaler and inhale in the morning., Disp: , Rfl: tiZANidine (Zanaflex) 4 mg tablet, Take 4 mg by mouth if needed in the morning and at bedtime., Disp: , Rfl: tizanidine HCl (ZANAFLEX ORAL), Zanaflex Start Date: 06/08/19 Status: Ordered, Disp: , Rfl: Last Recorded Vitals Visit Vitals BP 132/74 (BP Location: Right arm, Patient Position: Sitting) Pulse 105 Ht 1.88 m (6' 2 ) Wt 97.1 kg (214 lb) SpO2 95% BMI 27.48 kg/m??? Smoking Status Never BSA 2.25 m??? Physical Examination: GENERAL: alert and oriented x3, well developed, in no acute distress. HEAD: atraumatic, normocephalic. EYES: LARRY, EOMI. NECK: trachea midline, no JVD pr (more content not included)... [facility] 10-15-2023 History of Present illness Narrative Patient: Kei Acuna : 1945 PCP: Jake Ireland, DO SUBJECTIVE This is a 78 y.o. male [...] edema. Discussed condition in detail. Recommendation for [id number] compression stockings at this time and may consider prescription stockings in the future. Patient is to begin with [id number] compression stockings and discussed where to purchase today Gigi Yu DPM documented in this encounter [facility] 09-15-2023 Hospital Discharge instructions Follow Up Care 09/15/2023 10:44:19 With:BYRON MCCLOUD, Lincoln Patricia, URL Address: [facility] [address] [place] [address] [phone] When: Unknown [facility] 02-28-2021 Note [facility] 02-07-2021 Note Problem: Restraint: Goal: Remain safe while in restraints and once discontinued Outcome: Progressing Restraints needed to maintain safety/airway [facility] Evaluation + Plan note No data available for this section [facility] Evaluation note Diagnosis Venous insufficiency- Primary Unspecified venous (peripheral) insufficiency Other polyneuropathy Onychomycosis Dermatophytosis of nail Toe pain, right Pain in soft tissues of limb Toe pain, left Pain in soft tissues of limb DJD (degenerative joint disease), ankle and foot, left documented in this encounter [facility] HealthcareEvaluation note* Diagnosis Chronic pain syndrome- Primary Chronic combined systolic and diastolic congestive heart failure, NYHA class 2 (CMS/HCC) Essential hypertension (CMS/HCC) Unspecified essential hypertension documented in this encounter [facility] Healthcare[facility] note* Diagnosis Chronic combined systolic and diastolic congestive heart failure, NYHA class 2 (CMS/HCC)- Primary Atherosclerosis of coronary artery of tribe heart without angina pectoris, unspecified vessel or lesion type (CMS/HCC) Essential hypertension (CMS/HCC) Unspecified essential hypertension Paroxysmal atrial fibrillation (CMS/HCC) Atrial fibrillation Peripheral vascular disease (CMS/HCC) Unspecified peripheral vascular disease ASD (atrial septal defect) Ostium secundum type atrial septal defect Hyperuricemia Other abnormal blood chemistry Chronic obstructive pulmonary disease, unspecified COPD type (CMS/HCC) Chronic pain syndrome documented in this encounter [facility] HealthcareProgress note No data available for this section [facility] Summary Purpose Family History No Family History Records FoundNo Family History Records FoundNo Family History Records FoundNo Family History Records FoundNo Family History Records Found No data available for this section No Family History Records FoundNo Family History Records FoundNo Family History Records Found Advance Directives No Advanced Directives Records Found Date Activated Date Inactivated Comments 04/05/2024 3:21 PM Additional Source Comments (unrecognized sect ion and content) No Status Records FoundNo Status Records FoundNo Status Records FoundNo Status Records FoundNo Status Records FoundNo Status Records FoundNo Status Records FoundNo Status Records Found INFORMATION SOURCE (unrecogn ized section and content) DATE CREATED AUTHOR 04/11/2020 [facility] DATE CREATED AUTHOR AUTHOR'S ORGANIZ ATION 09/23/2021 [facility] DATE CREATED AUTHOR AUTHOR'S ORGANIZ ATION 10/07/2021 [facility] DATE CREATED AUTHOR AUTHOR'S ORGANIZ ATION 10/18/2021 [facility] dical Specialist DATE CREATED AUTHOR AUTHOR'S ORGANIZ ATION 11/17/2022 [facility] DATE CREATED AUTHOR AUTHOR'S ORGANIZ ATION 12/01/2023 [facility] DATE CREATED AUTHOR AUTHOR'S ORGANIZ ATION 07/07/2024 [facility] DATE CREATED AUTHOR AUTHOR'S ORGANIZ ATION 07/09/2024 [facility] dical Specialists [employer] Care Teams (unrecognized sec tion and content) Clarifier Relationship Specialty Start Date End Date Jake Ireland DO [address] [place] [address] PCP - General Internal Medicine 01/29/23 Jake Ireland DO [address] [place] [address] PCP - Toña TELLEZ 05/01/23 Clarifier Relationship Specialty Start Date End Date Jake Ireland DO [address] [place] [address] PCP - General Internal Medicine 01/29/23 Jake Ireland DO [address] [place] [address] PCP - Toña TELLEZ 05/01/23 Clarifier Relationship Specialty Start Date End Date Jake Ireland DO [address] [place] [address] PCP - General Internal Medicine 01/29/23 Jake Ireland DO [address] [facility] [address] [place] [address] PCP - Toña TELLEZ 05/01/23 Joe Chavez MD [address] [id number] Referring Physician Ophthalmology 04/05/24 Clarifier Relationship Specialty Start Date End Date Jake Ireland DO [address] [facility] [address] [place] [address] PCP - General Internal Medicine 01/29/23 Jake Ireland DO [address] [facility] [address] [place] [address] PCP - Toña TELLEZ 05/01/23 Joe Chavez MD [address] [place] [address] Referring Physician Ophthalmology 04/05/24 Anamaria Doll, RN Registered Nurse Family Medicine 06/29/24 Reason for Visit (unrecogniz ed section and content) Reason Comments Toenail Care Non DM Nails Reason Comments 3 mos ov controlled Pt presents med refi lls at this time. Pt went to the ER yesterday at [facility] for irregular heart beat. They stopped him on losartan and metoprolol Leg Swelling Pt states he is havi ng the swelling of the legs, his RT lower leg/foot is swelling up and has some redness. Shaking Pt states he is delon le shaky at times. He states he notices more in his right hand, onset 2 months FOR RECORDS PERTAINING TO PATIENTS WHO ARE [...] BE BASED ON THE PRIMARY CLINICAL RECORDS. [facility]. provides no warranty or guarantee of the accuracy or completeness of information in this document.
[2024-07-14 10:02] LABS: Alanine Aminotransferase 28 U/L (16-63); Albumin Globulin Ratio 0.9; Albumin Level 3.2 g/dL (3.4-5.0); Alkaline Phosphatase 79 U/L (46-116); Anion Gap 12.8; Aspartate Amino Transferase 18 U/L (15-37); BUN Creatinine Ratio 9.7; Bilirubin Total 0.6 mg/dL (0.2-1.0); Calcium 9.2 mg/dL (8.5-10.1); Carbon Dioxide 30.2 mmol/L (21.0-32.0); Chloride 105 mmol/L (98-107); Estimated GFR (African America 49 (>=60 mL/min/1.73m^2); Estimated GFR (Non-African Ame 41 (>=60 mL/min/1.73m^2); Free T3 1.63 pg/mL (2.18-3.98); Globulin 3.6 g/dL; Glucose 105 mg/dL (74-106); Magnesium 2.3 mg/dL (1.8-2.4); Sodium 144 mmol/L (136-145); Thyroid Stimulating Hormone 5.401 uIU/mL (0.358-3.740); Total Protein 6.8 g/dL (6.4-8.2); Uric Acid 6.8 mg/dL (3.5-7.2)
[2024-07-14 10:48] LABS: Free T4 1.17 ng/dL (0.76-1.46)
== END 2024-07-14 09:01 | disposition home or self-care (01) ==
LOC: LAB 09:03
PROVIDERS: PCP Internal Medicine; Visit Provider Internal Medicine
DX: I50.42 Chronic combined systolic (congestive) and diastolic (congestive) heart failure (principal); I25.10 Atherosclerotic heart disease of native coronary artery without angina pectoris; I48.0 Paroxysmal atrial fibrillation; I73.9 Peripheral vascular disease, unspecified; Q21.10 Atrial septal defect, unspecified; E79.0 Hyperuricemia without signs of inflammatory arthritis and tophaceous disease; J44.9 Chronic obstructive pulmonary disease, unspecified; G89.4 Chronic pain syndrome; Z51.81 Encounter for therapeutic drug level monitoring; I11.0 Hypertensive heart disease with heart failure
CPT/HCPCS: 36415; 80053; 82043; 82570; 83735; 84439; 84443; 84481; 84550; 85025

== ENCOUNTER 2024-09-14 14:21 | Emergency (ER) | payer MEDICARE, MEDICAID, SELFPAY ==
[2024-09-14 14:36] VITALS: BP 111/61; PULSE 48; TEMP 36.4; O2SAT 96; BMI 26.1
--- NOTE | 2024-09-14 14:46 | ECG_ITS ---
The [facility] Test Date: 2024-09-14 Pat Name: CHOCO WHITE Department: Room: - Gender: Male Awning Maker: : 1945 Requested By: [id number] Order Number: [id number] Reading MD: MARCELLA DUTTA Measurements Intervals [place] Rate: 44 P: 56 SC: 270 QRS: -48 QRSD: 130 T: 43 QT: 476 QTc: 427 Interpretive Statements 1130 Sinus bradycardia 2231 First degree AV block 2320 Nonspecific intraventricular conduction delay Nonspecific ST/T wave changes 7300 Indeterminate axis 9150 abnormal ECG Electronically Signed On 09-14-2024 20:47:05 EST by MARCELLA DUTTA
--- NOTE | 2024-09-14 14:47 | ED_ITS ---
HPI HPI - General Adult General Chief complaint: Upper Respiratory Infection Stated complaint: urti complaints Time Seen by Provider: 09/14/24 14:22 Source: patient Mode of arrival: walk-in Limitations: no limitations History of Present Illness HPI narrative: Patient is a 79-year-old male brought to the emergency department by his for evaluation of cough for the last 3 days. Patient states he is coughing green sputum. He has had no fevers, chest pain or vomiting. He states he is short of breath. Patient and his are extremely poor historians, the patient's medication list shows that he is on Eliquis, they do not know why although patient alludes to an irregular heartbeat and possibly A-fib. He has a history of heart failure as well. Patient's medication list shows that he filled furosemide from his PCP yesterday although the patient denies this and denies seeing his physician recently. further complains of an injury yesterday to the left knee when the patient fell outside of [employer], he did not want to be evaluated for this. He is able to ambulate with his cane at baseline. He denies hitting his head or any other associated injuries. Related Data Home Medications ?Medication ?Instructions ?Recorded ?Confirmed albuterol sulfate 90 mcg/actuation 2 inh inhalation Q8H PRN shortness 04/16/24 05/04/24 aerosol inhaler of breath or wheezing apixaban 5 mg tablet (Eliquis) 5 mg PO BID 04/16/24 05/04/24 aspirin 81 mg chewable tablet 1 tab PO DAILY 04/16/24 05/04/24 calcium carbonate 600 mg PO DAILY 04/16/24 05/04/24 cholecalciferol (vitamin D3) 25 1,000 unit PO DAILY 04/16/24 05/04/24 mcg (1,000 unit) tablet gabapentin 300 mg capsule 300 mg PO BID 04/16/24 05/04/24 omeprazole 40 mg capsule,delayed 40 mg PO DAILY 04/16/24 05/04/24 release oxycodone 10 mg tablet 5 mg PO TID 04/16/24 05/04/24 simvastatin 40 mg tablet 40 mg PO DAILY 04/16/24 05/04/24 tamsulosin 0.4 mg capsule 0.4 mg PO DAILY 04/16/24 05/04/24 tiotropium bromide 18 mcg capsule 1 cap inhalation DAILY 04/16/24 05/04/24 with inhalation device tizanidine 4 mg tablet 4 mg PO BID PRN muscle spasticity 04/16/24 05/04/24 trazodone 100 mg tablet 100 mg PO BEDTIME PRN insomnia 04/16/24 05/04/24 diclofenac sodium 1 % topical gel 2 g topical QID 05/04/24 05/04/24 furosemide 40 mg tablet 40 mg PO DAILY 05/04/24 05/04/24 Previous Rx's ?Medication ?Instructions ?Recorded clindamycin HCl 300 mg capsule 300 mg PO Q6H 7 days #28 caps 04/18/24 losartan 25 mg tablet 25 mg PO DAILY #30 tabs 04/18/24 metoprolol succinate 50 mg 50 mg PO DAILY #30 tabs 04/18/24 tablet,extended release 24 hr (Toprol XL) cefdinir 300 mg capsule 300 mg PO BID 10 days #20 caps 09/14/24 methylprednisolone 4 mg tablets in See Rx Instructions .Route 09/14/24 a dose pack (Medrol ([place])) .COMPLEX #21 ea Allergies Allergy/AdvReac Type Severity Reaction Status Date / Time Sulfa (Sulfonamide AdvReac Mild Hives Verified 09/14/24 14:36 Antibiotics) Opioid HPI Opioid Management Most Recent Opioid Data: Last Pain Scale 7 04/18/24 06:00 04/18/24 Last ORT Total Score 0 04/17/24 00:23 04/17/24 Last ORT Risk Category Low Risk 04/17/24 00:23 04/17/24 Review of Systems ROS Constitutional Denies: fever or chills Ears, nose, mouth, and throat Denies: throat pain or nasal congestion Cardiovascular Denies: chest pain Respiratory Reports: shortness of breath and cough Gastrointestinal Denies: nausea or vomiting Musculoskeletal Reports: extremity pain; Denies: back pain Integumentary/Breast Denies: rash Neurological Denies: numbness in extremities or weakness in extremities Hematologic/Lymphatic Reports: easy bruising and easy bleeding [facility] Medical History (Updated 09/14/24 @ 16:15 by BETY Villa) Bilateral cellulitis of lower leg ?L03.116 - Cellulitis of left lower limb (ICD-10) ?L03.115 - Cellulitis of right lower limb (ICD-10) Congestive heart failure ?I50.9 - Heart failure, unspecified (ICD-10) Peripheral edema ?R60.0 - Localized edema (ICD-10) H/O: CVA (cerebrovascular accident) ?Z86.73 - Personal history of transient ischemic attack (TIA), and cerebral infarction without residual deficits (ICD-10) Afib ?I48.91 - Unspecified atrial fibrillation (ICD-10) HLD (hyperlipidemia) ?E78.5 - Hyperlipidemia, unspecified (ICD-10) COPD (chronic obstructive pulmonary disease) ?J44.9 - Chronic obstructive pulmonary disease, unspecified (ICD-10) Social History Within the past year, how often did you have a drink containing alcohol: monthly or less Within the past year, how many standard drinks containing alcohol did you have on a typical day: 1 or 2 Total score: 0 Score interpretation: A score less than 4 is consistent with normal alcohol consumption. Non-prescribed substance use: denies use Highest level of school completed/degree received: high school graduate Little interest or pleasure in doing things: not at all Feeling down, depressed, or hopeless: not at all Exam Narrative Exam Narrative: Gen.: Awake, alert, in no distress Head: Normocephalic, atraumatic ENT: Moist mucous membranes Respiratory: No respiratory distress, lungs clear bilaterally Cardio: Regular rate and rhythm Extremities: Moves extremities equally, mild swelling and ecchymosis noted to the left anterior knee, no obvious deformity. Old healed postsurgical changes to the left distal tibia and ankle. Psych: Normal mood and affect Neuro: No focal neuro deficit Skin: Warm, dry, intact Constitutional Vital Signs, click to edit/add: Last Vital Signs Temp 97.6 F 09/14/24 14:36 Pulse 42 L 09/14/24 15:03 Resp 20 09/14/24 14:36 BP 111/61 09/14/24 14:36 Pulse Ox 94 L 09/14/24 15:03 O2 Del Method Room Air 09/14/24 15:03 Course Vital Signs Vital signs: Vital Signs Temperature 97.6 F 09/14/24 14:36 Pulse Rate 48 L 09/14/24 14:36 Respiratory Rate 20 09/14/24 14:36 Blood Pressure 111/61 09/14/24 14:36 Pulse Oximetry 96 09/14/24 14:36 Oxygen Delivery Method Room Air 09/14/24 14:36 Temperature 97.6 F 09/14/24 14:36 Pulse Rate 42 L 09/14/24 15:03 Respiratory Rate 20 09/14/24 14:36 Blood Pressure 111/61 09/14/24 14:36 Pulse Oximetry 94 L 09/14/24 15:03 Oxygen Delivery Method Room Air 09/14/24 15:03 Medical Decision Making MDM Narrative Medical decision making narrative: Patient treated with breathing treatment and Solu-Medrol in the ER. He has no hypoxia or tachycardia. He was noted to have stable chronic kidney disease, normal troponin and BNP with chest x-ray showing no evidence of acute cardiopulmonary changes. X-rays of the left knee are also unremarkable. Respiratory swabs are negative. Based on the patient's age and other comorbidities he is placed on antibiotics, steroids for suspected upper respiratory infection with COPD exacerbation. Follow-up with PCP and return to the ER if symptoms change or worsen. Patient is eager for discharge on reevaluation, he has no complaints of chest pain in the ER. SUPERVISED APC VISIT, PHYSICIAN ATTESTATION: Based on the medical record the care appears appropriate. ? Medical Records Medical records reviewed: Yes I reviewed the patient's medical records Lab Data Lab results reviewed: Yes I reviewed the patient's lab results Labs: Lab Results 09/14/24 09/14/24 Range/Units 15:00 15:04 WBC 4.4 (4.0-11.0) 10^3/uL RBC 4.07 L (4.70-6.10) 10^6/uL Hgb 12.4 L (14.0-18.0) g/dL Hct 39.1 L (42.0-54.0) % MCV 96.1 H (80.0-94.0) fL MCH 30.5 (25.9-34.0) pg MCHC 31.7 (29.9-35.2) g/dL RDW 13.9 (11.0-15.0) % Plt Count 110 L (150-450) 10^3/uL MPV 12.0 (9.5-13.5) fL Neut % (Auto) 50.6 (43.0-75.0) % Lymph % (Auto) 24.4 (20.5-60.0) % [place] % (Auto) 20.0 H (1.7-12.0) % Eos % (Auto) 4.1 (0.9-7.0) % Baso % (Auto) 0.7 (0.2-2.0) % Neut # (Auto) 2.2 (1.4-6.5) 10^3/uL Lymph # (Auto) 1.1 L (1.2-3.8) 10^3/uL [place] # (Auto) 0.9 H (0.3-0.8) 10^3/uL Eos # (Auto) 0.2 (0.0-0.7) 10^3/uL Baso # (Auto) 0.0 (0.0-0.1) 10^3/uL Abs Immat Gran (auto) 0.01 (0.00-0.03) 10^3/uL Imm/Tot Granulo (auto) 0.2 (0.0-0.5) % PT 12.6 H (9.0-11.6) sec INR 1.21 VBG pH 7.394 (7.330-7.430) VBG pCO2 49.2 (40.0-52.0) mmHg Sodium 144 (136-145) mmol/L Potassium 4.4 (3.5-5.1) mmol/L Chloride 107 (98-107) mmol/L Carbon Dioxide 33.0 H (21.0-32.0) mmol/L Anion Gap 8.4 BUN 21.0 H (7.0-18.0) mg/dL Creatinine 2.07 H (0.70-1.30) mg/dL Est GFR ( Amer) 38 L (>=60 mL/min/1.73m^2) Est GFR (Non-Af Amer) 31 L (>=60 mL/min/1.73m^2) BUN/Creatinine Ratio 10.1 Glucose 81 (74-106) mg/dL Lactate 1.2 (0.4-2.0) mmol/L Calcium 8.5 (8.5-10.1) mg/dL Total Bilirubin 0.6 (0.2-1.0) mg/dL AST 75 H (15-37) U/L ALT 78 H (16-63) U/L Alkaline Phosphatase 98 (46-116) U/L Troponin I High Sens 15.1 (4.0-76.1) pg/mL NT-Pro-B Natriuret Pep 1606.0 (<=1800.0) pg/mL Total Protein 6.0 L (6.4-8.2) g/dL Albumin 2.9 L (3.4-5.0) g/dL Globulin 3.1 g/dL Albumin/Globulin Ratio 0.9 Influenza Type A Ag Negative Influenza Type B Ag Negative RSV Antigen Not detected (NOT DETECTE) SARS-CoV-2 Ag (CV2AG) Negative (NEGATIVE) Imaging Data Chest x-ray: Attestation: I have reviewed the pertinent imaging results. Radiologist's impression: ITS Impressions Knee X-Ray 09/14/24 15:17 IMPRESSION: Moderate to severe osteoarthritis Electronically authenticated by: SARAY DENTON Date: 09/14/2024 15:44 ECG Data Attestation: I personally reviewed and interpreted this ECG as follows: (Sinus bradycardia at a rate of 44 with a first-degree AV block, no acute ST elevation or ectopy. EKG reviewed by attending physician) Discharge Plan Discharge Chief Complaint: Upper Respiratory Infection Clinical Impression: Upper respiratory infection, Cough Patient Disposition: Home, Self-Care Time of Disposition Decision: 16:15 Condition: Good Prescriptions / Home Meds: New methylprednisolone [Medrol ([place])] 4 mg tablets,dose pack See Rx Instructions .ROUTE .COMPLEX Qty: 21 0RF Rx Instructions: Taper as directed cefdinir 300 mg capsule 300 mg PO BID 10 Days Qty: 20 0RF No Action tizanidine 4 mg tablet 4 mg PO BID PRN (Reason: muscle spasticity) omeprazole 40 mg capsule,delayed release(DR/EC) 40 mg PO DAILY simvastatin 40 mg tablet 40 mg PO DAILY calcium carbonate 600 mg calcium (1,500 mg) tablet 600 mg PO DAILY tamsulosin 0.4 mg capsule 0.4 mg PO DAILY trazodone 100 mg tablet 100 mg PO BEDTIME PRN (Reason: insomnia) gabapentin 300 mg capsule 300 mg PO BID aspirin 81 mg tablet,chewable 1 tab PO DAILY albuterol sulfate 90 mcg/actuation HFA aerosol inhaler 2 inh INHALATION Q8H PRN (Reason: shortness of breath or wheezing) tiotropium bromide 18 mcg capsule, w/inhalation device 1 cap INHALATION DAILY cholecalciferol (vitamin D3) 25 mcg (1,000 unit) tablet 1,000 unit PO DAILY oxycodone 10 mg tablet 5 mg PO TID Eliquis 5 mg tablet 5 mg PO BID losartan 25 mg tablet 25 mg PO DAILY Qty: 30 0RF metoprolol succinate [Toprol XL] 50 mg tablet extended release 24 hr 50 mg PO DAILY Qty: 30 0RF clindamycin HCl 300 mg capsule 300 mg PO Q6H 7 Days Qty: 28 0RF Patient Comments: 04/28/24-05/04/24 diclofenac sodium 1 % gel 2 g TOPICAL QID Rx Instructions: apply to knee and back furosemide 40 mg tablet 40 mg PO DAILY Print Language: Djib[place] Instructions: Upper Respiratory Infection (ED) Referrals: KARTHIK IRELAND [Primary Care Provider] - 1 week
[2024-09-14] MEDS: ALBUTEROL SULFATE 2.5 MG/3 ML VIAL NEB IH (15:00)
[2024-09-14 15:03] VITALS: PULSE 42; O2SAT 94
[2024-09-14] MEDS: METHYLPREDNISOLONE SOD SUCC PF 125 MG/2 ML VIAL IVP (15:08)
--- NOTE | 2024-09-14 15:17 | XR_ITS ---
The [address] [address] Patient Name: CHOCO WHITE MRN: [id number] date: 1945 Sex: M Assigned Patient Location: ER Current Patient Location: ER Accession/Order Number: [id number] Exam Date: 09/14/2024 15:05 Report Date: 09/14/2024 15:44 At the request of: DIEGO SANTIAGO Procedure: XR knee LT 3V PROCEDURE: XR knee LT 3V COMPARISON: None. HISTORY: fall FINDINGS: BONES:No acute fracture or dislocation. Moderate to severe tricompartmental osteoarthropathy with [id number] articulation the medial compartment and marginal osteophyte formation SOFT TISSUES:Negative. No visible soft tissue swelling. EFFUSION:None visible. OTHER: Vascular calcifications XR/XR knee LT 3V IMPRESSION: Moderate to severe osteoarthritis Electronically authenticated by: SARAY DENTON Date: 09/14/2024 15:44
--- NOTE | 2024-09-14 15:17 | XR_ITS ---
The [address] [address] Patient Name: CHOCO WHITE MRN: [id number] date: 1945 Sex: M Assigned Patient Location: ER Current Patient Location: ER Accession/Order Number: [id number] Exam Date: 09/14/2024 15:05 Report Date: 09/14/2024 15:36 At the request of: DIEGO SANTIAGO Procedure: XR chest 1V ONE-VIEW CHEST RADIOGRAPH, 09/14/2024 3:05 PM EST COMPARISON: Chest, 05/04/2024. CLINICAL HISTORY: Cough Findings and impression: 1. Patient is slightly rotated to the left accentuating cardiomediastinal silhouette left of midline. 2. Pulmonary venous hypertension/pulmonary vascular congestion. 3. Mild bibasilar atelectasis, left greater than right. 4. Stable heart size. 5. No acute osseous abnormality. No other interval change. Electronically authenticated by: Shade SPARKS Date: 09/14/2024 15:36
[2024-09-14 15:30] LABS: PCO2 VBG 49.2 mmHg (40.0-52.0); pH VBG 7.394 (7.330-7.430)
[2024-09-14 15:31] LABS: Basophils Percent Auto 0.7 % (0.2-2.0); Eosinophils Absolute Auto 0.2 10^3/uL (0.0-0.7); Eosinophils Percent Auto 4.1 % (0.9-7.0); Hematocrit 39.1 % (42.0-54.0); Hemoglobin 12.4 g/dL (14.0-18.0); Immature Granulocytes Abs Auto 0.01 10^3/uL (0.00-0.03); Immature Granulocytes Pct Auto 0.2 % (0.0-0.5); Lymphocytes Absolute Auto 1.1 10^3/uL (1.2-3.8); Lymphocytes Percent Auto 24.4 % (20.5-60.0); Mean Corpuscular HGB Conc 31.7 g/dL (29.9-35.2); Mean Corpuscular Hemoglobin 30.5 pg (25.9-34.0); Mean Corpuscular Volume 96.1 fL (80.0-94.0); Monocytes Absolute Auto 0.9 10^3/uL (0.3-0.8); Neutrophils Absolute Auto 2.2 10^3/uL (1.4-6.5); Neutrophils Percent Auto 50.6 % (43.0-75.0); Platelet Count 110 10^3/uL (150-450); Red Blood Count 4.07 10^6/uL (4.70-6.10); Red Cell Distribution Width 13.9 % (11.0-15.0); White Blood Count 4.4 10^3/uL (4.0-11.0)
[2024-09-14 15:40] LABS: Influenza Virus A Antigen Negative; Influenza Virus B Antigen Negative; Internal Control Within Normal Limits; Respiratory Syncytial Virus Not Detected (NOT DETECTE); SARS-CoV-2 Ag NEGATIVE (NEGATIVE)
[2024-09-14 15:42] LABS: INR 1.21; Prothrombin Time 12.6 sec (9.0-11.6)
[2024-09-14 15:47] LABS: Lactate/Lactic Acid 1.2 mmol/L (0.4-2.0)
[2024-09-14 15:50] LABS: Alanine Aminotransferase 78 U/L (16-63); Albumin Globulin Ratio 0.9; Albumin Level 2.9 g/dL (3.4-5.0); Alkaline Phosphatase 98 U/L (46-116); Anion Gap 8.4; Aspartate Amino Transferase 75 U/L (15-37); BUN Creatinine Ratio 10.1; Bilirubin Total 0.6 mg/dL (0.2-1.0); Calcium 8.5 mg/dL (8.5-10.1); Chloride 107 mmol/L (98-107); Estimated GFR (African America 38 (>=60 mL/min/1.73m^2); Estimated GFR (Non-African Ame 31 (>=60 mL/min/1.73m^2); Globulin 3.1 g/dL; Glucose 81 mg/dL (74-106); Potassium 4.4 mmol/L (3.5-5.1); Sodium 144 mmol/L (136-145)
[2024-09-14 15:58] LABS: Troponin I High Sensitivity 15.1 pg/mL (4.0-76.1)
== END 2024-09-14 16:30 | disposition home or self-care (01) ==
PROVIDERS: Physician Assistant; Emergency Provider Emergency Medicine; PCP Internal Medicine
DX: J06.9 Acute upper respiratory infection, unspecified (principal); Z79.01 Long term (current) use of anticoagulants; R06.02 Shortness of breath; N18.9 Chronic kidney disease, unspecified; M17.12 Unilateral primary osteoarthritis, left knee; R05.9 Cough, unspecified
CPT/HCPCS: 36415; 71045; 73562; 80053; 82800; 83605; 83880; 84484; 85025; 85610; 87420; 87804; 87811; 93005; 94640; 96374; 99285; J2919

== ENCOUNTER 2024-11-08 12:43 | Outpatient (OUT) | payer MEDICARE, MEDICAID, SELFPAY ==
[2024-11-08 13:16] LABS: Basophils Percent Auto 0.6 % (0.2-2.0); Eosinophils Absolute Auto 0.2 10^3/uL (0.0-0.7); Eosinophils Percent Auto 3.8 % (0.9-7.0); Hematocrit 40.9 % (42.0-54.0); Immature Granulocytes Abs Auto 0.02 10^3/uL (0.00-0.03); Immature Granulocytes Pct Auto 0.4 % (0.0-0.5); Lymphocytes Absolute Auto 1.3 10^3/uL (1.2-3.8); Lymphocytes Percent Auto 26.4 % (20.5-60.0); Mean Corpuscular HGB Conc 31.8 g/dL (29.9-35.2); Mean Corpuscular Volume 94.5 fL (80.0-94.0); Mean Platelet Volume 11.7 fL (9.5-13.5); Monocytes Absolute Auto 1.1 10^3/uL (0.3-0.8); Monocytes Percent Auto 21.1 % (1.7-12.0); Neutrophils Absolute Auto 2.4 10^3/uL (1.4-6.5); Neutrophils Percent Auto 47.7 % (43.0-75.0); Platelet Count 163 10^3/uL (150-450); Red Blood Count 4.33 10^6/uL (4.70-6.10); Red Cell Distribution Width 15.8 % (11.0-15.0)
[2024-11-08 13:45] LABS: Creatinine Urine Random 50.42 mg/dL (20.00-300.00); Microalbumin Urine Random <1.3 mg/dL (<=30.0)
[2024-11-08 14:39] LABS: Alanine Aminotransferase 32 U/L (16-63); Albumin Globulin Ratio 0.8; Albumin Level 3.2 g/dL (3.4-5.0); Alkaline Phosphatase 130 U/L (46-116); Anion Gap 8.8; Aspartate Amino Transferase 40 U/L (15-37); BUN Creatinine Ratio 12.8; Bilirubin Total 0.6 mg/dL (0.2-1.0); Calcium 10.2 mg/dL (8.5-10.1); Carbon Dioxide 33.4 mmol/L (21.0-32.0); Chloride 104 mmol/L (98-107); Chol HDL Ratio 2.8; Cholesterol 127 mg/dL (<=200); Estimated GFR (African America 40 (>=60 mL/min/1.73m^2); Estimated GFR (Non-African Ame 33 (>=60 mL/min/1.73m^2); Globulin 3.8 g/dL; Glucose 99 mg/dL (74-106); HDL Cholesterol 45 mg/dL (40-60); LDL Cholesterol Calculated 62.4 mg/dL; Potassium 4.2 mmol/L (3.5-5.1); Sodium 142 mmol/L (136-145); Triglycerides 98 mg/dL (<=150); VLDL CHOLESTEROL 19.6 mg/dL
== END 2024-11-08 12:44 | disposition home or self-care (01) ==
LOC: LAB 12:46
PROVIDERS: PCP Internal Medicine; Visit Provider Nurse Practitioner Adult Health
DX: E78.2 Mixed hyperlipidemia (principal); N18.31 Chronic kidney disease, stage 3a; E79.0 Hyperuricemia without signs of inflammatory arthritis and tophaceous disease; D69.6 Thrombocytopenia, unspecified; I12.9 Hypertensive chronic kidney disease with stage 1 through stage 4 chronic kidney disease, or unspecified chronic kidney disease
CPT/HCPCS: 36415; 80053; 80061; 82043; 82570; 84550; 85025

== ENCOUNTER 2024-11-12 23:04 | Emergency (ER) | payer MEDICARE, MEDICAID, SELFPAY ==
--- OUTSIDE RECORDS SUMMARY | 2024-11-12 23:09 | XMS_ITS | CCD ---
Author Organization [facility] Care Team Providers Care Teletype Mechanic Name Role Phone PROVIDER, UNKNOWN Attending Unavailable [...] Admitting Unavailable PROVIDER, UNKNOWN Attending Unavailable MEIR, ASTRIT Referring Unavailable CARLA MORSE Attending Unavailable CONSULT, IP ORTHOPAEDIC TRAUMA Consulting U navailable SEGOVIA, NIMITT Admitting Unavailable REQUEST, IP PHYSICAL THERAPY SERVICE Consulting Unavailable REQUEST, IP OCCUPATIONAL THERAPY SERVICE Consult ing Unavailable CONSULT, NEUROCRITICAL Consulting Unavailab le CONSULT, IP SURGERY VASCULAR Consulting Usha vailable CONSULT, IP SURGERY NEURO Consulting Unavai lable REQUEST, IP SAWMILL SUPERVISOR SERVICE Consul ting Unavailable CONSULT, IP CARDIOLOGY ELECTROPHYSIOLOGY (EP) Co nsulting Unavailable REQUEST, IP BARK PRESS OPERATOR SERVICE Consulting Unavaila ble CONSULT, IP DENTISTRY ADULT Consulting Unav ailable MEIR, ASTRIT Referring Unavailable SEGOVIA, NIMITT Admitting Unavailable PROVIDER, UNKNOWN Attending Unavailable PROVIDER, UNKNOWN Attending Unavailable PROVIDER, UNKNOWN Admitting Unavailable PATIENT, SELF Referring Unavailable PROVIDER, UNKNOWN Attending Unavailable PROVIDER, UNKNOWN Admitting Unavailable PROVIDER, UNKNOWN Attending Unavailable PROVIDER, UNKNOWN Admitting Unavailable DWAINE SANTOS AHilda Referring Unavailable DWAINE SANTOS Attending Unavailable DWAINE SANTOS Referring Unavailable DWAINE SANTOS AHilda Admitting Unavailable PROVIDER, UNKNOWN Admitting Unavailable PROVIDER, UNKNOWN Attending Unavailable PROVIDER, UNKNOWN Admitting Unavailable PROVIDER, UNKNOWN Attending Unavailable PROVIDER, UNKNOWN Admitting Unavailable PROVIDER, UNKNOWN Attending Unavailable DR JAKE IRELAND Admitting Unavailable DR JAKE IRELAND Attending Unavailable SHU, DR ANGELES Primary Care Unavailable DR JAKE IRELAND Consulting Unavailable SHU, DR ANGELES Admitting Unavailable DR JAKE IRELAND Attending Unavailable DR JAKE IRELAND Primary Care Unavailable DR JAKE IRELAND Consulting Unavailable SHU, DR ANGELES Admitting Unavailable DR JAKE IRELAND Attending Unavailable SHU, DR ANGELES Primary Care Unavailable DR JAKE IRELAND Consulting Unavailable Jake Ireland DO Primary Care Provider [phone] Jake Ireland DO Unavailable [phone] JAKE IRELAND Primary Care Physician Unavail able Cody Celeste Unavailable Unavailable THOMAS DAMICO Referring Unavailable Lincoln MATTHEWS Attending Unavailable Scott MCCLOUD, Joe Souza Unavailable Lavon SANON, Anamaria Unavailable [phone] DORA, SAMAR Attending Unavailable DORA, SAMAR Attending Unavailable DORA, SAMAR Referring Unavailable DORA, SAMAR Admitting Unavailable DORA, SAMAR Attending Unavailable DORA, SAMAR Referring Unavailable DORA, SAMAR Referring Unavailable DORA, SAMAR Attending Unavailable SHU, JAKE A Attending Unavailable SHU, JAKE A Referring Unavailable BROWN, GIGI A Attending Unavailable BROWN, GIGI A Referring Unavailable BROWN, GIGI A Attending Unavailable SHU, JAKE A Attending Unavailable SHU, JAKE A Referring Unavailable BROWN, GIGI A Attending Unavailable JUAN RAMON FERRARA Attending Unavailable BROWN, GIGI A Attending Unavailable THOMAS DAMICO Attending Unavailable SHU, JAKE A Attending Unavailable SHU, JAKE A Referring Unavailable BROWN, GIGI A Attending Unavailable SHU, JAKE A Attending Unavailable SHU, JAKE A Referring Unavailable SHU, JAKE A Attending Unavailable BROWN, GIGI A Attending Unavailable SHU, JAKE A Attending Unavailable Allergies Allergy Classification Reported Allergen(s) Allergy Type Date of Onset Reaction(s) Facility (1 source) SULFA DRUGS CROSS REACTORS; Translations: [SULFA DRUGS CROSS REACTORS] Propensity to adverse reactions to drug (disorder) 1 [facility] (1 source) Sulfonamides (Antibiotic) Drug allergy (disorder) 4 [facility] (20 sources) Sulfonamides (Antibiotic) Drug Allergy 3 [facility] (2 sources) Sulfamethoxazole ; Translations: [sulfamethoxazol e] Drug Allergy Unknown (qualifier value) [facility] (2 sources) Unable to obtain; Translations: [Unable to obtain] Drug allergy [facility] (1 source) ALLERGIES NOT ON FILE; Translations: [ALLERGIES NOT ON FILE] Propensity to adverse reactions (disorder) [facility] Repository Medications Current Medications Medication Drug Class(es) Dates Sig (Normalized) Sig (Original) [id number] 200 actuat albuterol 0.09 mg/actuat metered dose inhaler (20 sources) beta2-Adrenergic Agonist Start: 08-11-2024 End: 09-06-2024 take 1 puff(s) by mouth every four hours as needed for wheezing albuterol HFA 90 mcg/act inhaler Indications: 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) ([facility]) INHALE 1 PUFF BY MOUTH EVERY 4 HOURS NEEDED FOR SHORTNESS OF BREATH AND WHEEZING 8.5 g 10 09/06/2024 Active Start: 02-01-2024 take 1 puff(s) by in halation every four hours as needed for wheezing albuterol HFA 90 mcg/act inhaler Indications: 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) ([facility]) INHALE 1 PUFF EVERY 4 HOURS NEEDED [...] / ipratropium bromide 0.167 mg/ml inhalation solution (20 sources) Anticholinergic, beta2-Adrenergic Agonist Start: 07-22-2022 ipratropium-albuterol (Duo-Neb) 0.5-2.5 mg/3 mL nebulizer solution Take 3 mL by nebulization in the morning and 3 mL at noon and 3 mL in the evening and 3 mL before bedtime. 07/22/2022 Active amiodarone hydrochloride 200 mg oral tablet (20 sources) Antiarrhythmic Start: 06-03-2024 End: 11-30-2024 take 1 tablet by mouth once daily amiodarone (Pacerone) 200 MG tablet Indications: Atrial Fibrillation Take 200 mg by mouth Daily 06/03/2024 11/30/2024 Active Start: 06-03-2024 End: 11-30-2024 take 2 tablets by mouth in the morning amiodarone (Pacerone) 200 MG tablet Take 400 mg by mouth in the morning and 400 mg in the evening. 06/03/2024 11/30/2024 Active apixaban 5 mg oral tablet (20 sources) Factor Xa Inhibitor Start: 06-20-2019 End: 07-18-2024 take 1 tablet by mouth twice daily Eliquis 5 MG tablet Indications: Other pulmonary embolism with acute cor pulmonale, unspecified chronicity (CMS/HCC) TAKE ONE (1) TABLET BY MOUTH TWICE DAILY 60 tablet 10 07/18/2024 Active aspirin 81 mg chewable tablet (20 sources) Platelet Aggregation Inhibitor, Nonsteroidal Anti-inflammatory Drug Start: 08-03-2023 End: 07-18-2024 take 1 tablet by mouth once daily Aspirin Low Dose 81 MG chewable tablet Indications: Other pulmonary embolism with acute cor pulmonale, unspecified chronicity (CMS/HCC) CHEW AND SWALLOW 1 TABLET BY MOUTH ONCE DAILY 30 tablet 10 07/18/2024 Active Atenolol (1 source) beta-Adrenergic Dann Start: 06-08-2019 atenolol Start Date: 06/08/19 Status: Ordered calcium carbonate 1500 mg oral tablet (20 sources) Start: 08-03-2023 End: 07-18-2024 take 1 tablet by mouth twice daily at mealtime calcium carbonate 1500 (600 Ca) MG tablet Indications: Hypocalcemia TAKE ONE (1) TABLET BY MOUTH TWICE DAILY WITH MEALS 60 tablet 10 07/18/2024 Active calcium polycarbophil 625 mg oral tablet (2 sources) take 2 capsules by mouth once daily [facility] Laxative 625 MG tablet TAKE 2 CAPSULES BY MOUTH EVERY DAY for 14 0 Active cholecalciferol 0.025 mg oral tablet (20 sources) Vitamin D Start: 03-21-2024 take 1 [...] mouth Daily. as directed 0 08/27/2022 Active clindamycin 300 mg oral capsule (4 sources) Lincosamide Antibacterial Start: 04-18-2024 clindamycin (Cleocin ) 300 MG capsule Take 300 mg by mouth in the morning and 300 mg at noon and 300 mg in the evening and 300 mg before bedtime. 04/18/2024 Active diclofenac sodium 0.01 mg/mg topical gel (20 sources) Nonsteroidal Anti-inflammatory Drug Start: 04-07-2024 diclofenac [...] QID Start Date: 06/20/19 Status: Ordered fluticasone propionate 0.5 mg/ml topical cream (19 sources) Corticosteroid Start: 09-22-2024 fluticasone (C utivate) 0.05 % cream Indications: Dermatitis Apply topically 2 (two) times a day 60 g 1 09/22/2024 Active Start: 07-07-2024 fluticasone (C utivate) 0.05 % cream Indications: Dermatitis Apply topically 2 (two) times a day 60 g 1 07/07/2024 Active fluticasone / vilanterol (20 sources) Corticosteroid, beta2-Adrenergic Agonist Start: 03-26-2020 Breo Ellipta Inhalation, Daily, Refill(s) 0 Start Date: 03/26/20 Status: Ordered Fluticasone Furo ate-Vilanterol (Breo Ellipta) 100-25 MCG/ACT aerosol powder 1 puff in the morning. Active furosemide 40 mg oral tablet (20 sources) Loop Diuretic Start: 06-16-2024 End: 07-07-2025 take 1 tablet by mouth in the morning furosemide (Lasix) 40 MG tablet Indications: Chronic combined systolic and diastolic congestive heart failure, NYHA class 2 (CMS/HCC) TAKE 1 TABLET BY MOUTH IN THE MORNING *EMERGENCY REFILL* 30 tablet 10 08/11/2024 Active Start: 05-28-2023 End: 05-27-2024 take 1 tablet by mouth in the morning furosemide (Lasix) 40 MG tablet Indications: Acute on chronic combined systolic (congestive) and diastolic (congestive) heart failure (CMS/HCC) Take 1 tablet (40 mg) by mouth in the morning. 90 tablet 3 05/28/2023 05/27/2024 Active Start: 03-26-2020 take 1 mg by mouth once daily furosemide 20 mg Tab mg tab(s), Oral, Daily, Refills(s) 0 Start Date: 03/26/20 Status: Ordered gabapentin 300 mg oral capsule (20 sources) Anti-epileptic Agent Start: 01-19-2024 take 1 capsule by mouth twice daily gabapentin (Neurontin) 300 MG capsule Indications: Chronic pain syndrome TAKE ONE CAPSULE BY MOUTH TWICE DAILY 180 capsule 3 01/19/2024 Active Start: 03-05-2023 take 1 capsule by mo ut twice daily gabapentin (Neurontin) 300 MG capsule Indications: Chronic pain syndrome TAKE ONE (1) CAPSULE BY MOUTH TWICE DAILY 60 capsule 10 03/05/2023 Active HYDROcodone (1 source) Opioid Agonist Start: 06-08-2019 hydrocodone Re fills(s) 0 Start Date: 06/08/19 Status: Ordered hydrocortisone 10 mg/ml rectal cream (20 sources) Corticosteroid Start: 09-19-2024 hydrocortisone 1 % cream Indications: Dermatitis APPLY TOPICALLY TWICE DAILY 56.7 g 10 09/19/2024 Active Start: 07-14-2024 hydrocortisone 1 % cream Indications: Dermatitis Apply topically 2 (two) times a day 60 g 2 07/14/2024 Active End: 07-14-2024 hydrocortisone 1 % cream Carie ly topically 2 (two) times a day. 07/14/2024 Discontinued (Reorder) ibuprofen 800 mg oral tablet (2 sources) Nonsteroidal Anti-inflammatory Drug Start: 06-25-2022 take 1 tablet by mouth every eight hours as needed ibuprofen 800 MG tablet Take 800 mg by mouth every 8 (eight) hours if needed. 0 06/25/2022 Active levothyroxine sodium 0.05 mg oral tablet (20 sources) l-Thyroxine Start: 07-14-2024 End: 09-05-2024 take 1 tablet by mouth once daily levothyroxine (Synthroid, Levoxyl) 50 MCG tablet Indications: Hypothyroidism (acquired) (CMS/HCC) TAKE 1 TABLET BY MOUTH EVERY DAY 90 tablet 1 09/05/2024 Active losartan potassium 25 mg oral tablet (7 sources) Angiotensin 2 Receptor Dann Start: 05-19-2024 End: 08-17-2024 take 1 tablet by mouth once daily losartan (Cozaar) 25 MG tablet Indications: Essential hypertension (CMS/HCC) Take 1 tablet (25 mg) by mouth Daily 30 tablet 2 05/19/2024 08/17/2024 Active Start: 04-18-2024 take 1 tablet by gab th once daily losartan (Cozaar) 25 MG tablet Take 25 mg by mouth Daily 04/18/2024 Active magnesium hydroxide 80 mg/ml oral suspension (2 sources) magnesium hydrox torey (Milk of Magnesia) 400 MG/5ML suspension Take by mouth every 6 (six) hours. 0 Active metoprolol tartrate 25 mg oral tablet (20 sources) beta-Adrenergic Dann Start: 06-29-2024 take 1 [...] (25 mg) before bedtime. 06/29/2024 Active Start: 05-19-2024 End: 08-17-2024 take 1 tablet by mouth once daily metoprolol succinate XL (Toprol-XL) 50 MG 24 hr tablet Indications: Essential hypertension (CMS/HCC) Take 1 tablet (50 mg) by mouth Daily 30 tablet 2 05/19/2024 08/17/2024 Active Start: 05-18-2024 take 1 tablet by gab th in the morning metoprolol tartrate (Lopressor) 25 MG tablet Take 25 mg by mouth in the morning and 25 mg before bedtime. 05/18/2024 Active Start: 04-18-2024 take 1 tablet by gab th once daily metoprolol succinate XL (Toprol-XL) 50 MG 24 hr tablet Take 50 mg by mouth Daily 04/18/2024 Active Start: 05-06-2023 take 1 tablet by gab th twice daily at mealtime metoprolol tartrate (Lopressor) 25 MG tablet Indications: Mixed hyperlipidemia (CMS/HCC) TAKE ONE (1) TABLET BY MOUTH TWICE DAILY WITH FOOD 180 tablet 3 05/06/2023 Active omeprazole 40 mg delayed release oral capsule (20 sources) Proton Pump Inhibitor Start: 01-19-2024 take 1 capsule by mouth once daily omeprazole (PriLOSEC) [address] capsule Indications: Gastro-esophageal reflux disease without esophagitis TAKE 1 CAPSULE BY MOUTH ONCE DAILY 90 capsule 3 01/19/2024 Active Start: 06-20-2019 take 1 capsule by mo [facility] once daily omeprazole (PriLOSEC) [address] capsule Indications: Gastro-esophageal reflux disease without esophagitis TAKE ONE (1) CAPSULE BY MOUTH ONCE DAILY 30 capsule 10 03/06/2023 Active oxyCODONE hydrochloride 10 mg oral tablet (20 sources) Opioid Agonist Start: 11-10-2024 take 1 tablet by mouth in the morning, then take 1 tablet by mouth in the evening, then take 1 tablet by mouth at bedtime oxyCODONE (Roxicodone) 10 MG immediate release tablet Indications: Chronic pain syndrome Take 1 tablet (10 mg) by mouth in the morning and 1 tablet (10 mg) in the evening and 1 tablet (10 mg) before bedtime. 90 tablet 11/10/2024 Active Start: 11-10-2024 [facility], then take 1 tablet by mouth in the evening, then take 1 tablet by mouth at bedtime oxyCODONE (Roxicodone) 10 MG immediate release tablet Indications: Chronic pain syndrome Take 1 tablet (10 mg) by mouth in the morning and 1 tablet (10 mg) in the evening and 1 tablet (10 mg) before bedtime. 90 tablet 11/10/2024 Active Start: 03-28-2024 End: 11-10-2024 take 1 tablet by mouth in the morning, then take 1 tablet by mouth in the evening, then take 1 tablet by mouth at bedtime oxyCODONE (Roxicodone) 10 MG immediate release tablet Indications: Chronic pain syndrome Take 1 tablet (10 mg) by mouth in the morning and 1 tablet (10 mg) in the evening and 1 tablet (10 mg) before bedtime. 90 tablet 10/18/2024 11/10/2024 Discontinued (Reorder) Start: 10-05-2023 End: 11-04-2023 take 1 tablet [...] lls(s) 0 Start Date: 06/08/19 Status: Ordered microencapsulated potassium chloride 10 meq extended release oral tablet (19 sources) Start: 07-07-2024 End: 07-07-2025 take 1 tablet by mouth once daily potassium chloride CR (Klor-Con M10) 10 MEQ ER tablet Indications: Essential hypertension (CMS/HCC) Take 1 tablet (10 mEq) by mouth Daily Do not crush or chew. 90 tablet 1 07/07/2024 07/07/2025 Active Respiratory Therapy Supplies (Nebulizer/Tubing/Mouthpiec e) kit (20 sources) Start: 07-14-2024 Respiratory Th erapy Supplies (Nebulizer/Tubing/Mout hpiece) kit Indications: Chronic obstructive pulmonary disease, unspecified COPD type (CMS/HCC) 1 Package in the morning and 1 Package in the evening and 1 Package before bedtime. 1 kit 07/14/2024 Active End: 07-14-2024 Respiratory Therapy Supplies (Nebulizer/Tubing/Mouthpiece) kit 07/14/2024 Discontinued (Reorder) Respiratory Ther apy Supplies (Nebulizer/Tubing/Mouthpiece) kit Active Respiratory Ther apy Supplies (Nebulizer/Tubing/Mouthpiece) kit Sertraline (1 source) Serotonin Reuptake Inhibitor Start: 06-08-2019 sertraline Start Date: 06/08/19 Status: Ordered simvastatin 40 mg oral tablet (20 sources) HMG-CoA Reductase Inhibitor Start: 12-21-2023 take [...] Ordered tamsulosin hydrochloride 0.4 mg oral capsule (20 sources) alpha-Adrenergic Dann Start: 01-19-2024 tamsulosin (Flomax) [...] Status: Ordered tiotropium 0.018 mg inhalation powder (20 sources) Anticholinergic Start: 12-21-2023 take 1 capsule by inhalation in the morning tiotropium (Spiriva HandiHaler) 18 MCG inhalation capsule Indications: 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) ([facility]) Place 1 capsule (18 mcg) into inhaler [...] 02/05/2023 Active tiZANidine 4 mg oral tablet (20 sources) Central alpha-2 Adrenergic Agonist Start: 01-19-2024 [...] Ordered traZODone hydrochloride 100 mg oral tablet (20 sources) Serotonin Reuptake Inhibitor Start: 08-11-2024 take 1 tablet by mouth once daily at bedtime as needed traZODone (Desyrel) 100 MG tablet Indications: Essential hypertension, benign (CMS/HCC) TAKE 1 TABLET BY MOUTH EVERY DAY AT BEDTIME NEEDED 90 tablet 3 08/11/2024 Active Start: 12-31-2023 take 1 tablet by gab th once [...] infarction (1 source) Myocardial infarction 02-06-2021 Chronic Asthma (2 sources) Asthma-chronic obstructive pulmonary disease overlap syndrome; Translations: [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) (CMS/HCC)] 09-03-2024 Chronic Cardiac and circulatory congenital anomalies (20 sources) Atrial septal defect; Translations: [ASD (atrial septal defect)] Onset: 4 07-07-2024 Chronic Cardiac dysrhythmias (20 sources) Unspecified atrial fibrillation; Translations: [Paroxysmal atrial fibrillation] Onset: 2 02-09-2023 Chronic Cardiac dysrhythmias (2 sources) Tachycardia, unspecified; Translations: [Tachycardia, unspecified] Onset: 4 Episodic Chronic kidney disease (20 sources) Chronic kidney disease stage 3A ; Translations: [Stage 3a chronic kidney disease (HCC)] Onset: 3 Resolved: 4 02-09-2023 Chronic Chronic obstructive pulmonary disease and bronchiectasis (20 sources) Chronic obstructive pulmonary disease, unspecified; Translations: [Chronic obstructive lung disease] Onset: 2 Chronic Coagulation and hemorrhagic disorders (20 sources) Hypercoagulability state; Translations: [Other primary thrombophilia] Onset: 4 12-31-2023 Chronic Congestive heart failure; nonhypertensive (20 sources) Chronic combined systolic (congestive) and diastolic (congestive) heart failure; Translations: [Chronic combined systolic and diastolic heart failure] Onset: 2 02-09-2023 Chronic Coronary atherosclerosis and other heart disease (20 sources) Atherosclerotic heart disease of [place] coronary artery without angina pectoris; Translations: [Coronary atherosclerosis] Onset: 2 02-09-2023 Chronic Disorders of lipid metabolism (20 sources) Pure hypercholesterolemia, unspecified; Translations: [Mixed hyperlipidemia] Onset: 2 02-09-2023 Chronic Esophageal disorders (20 sources) Gastroesophageal reflux disease without esophagitis; Translations: [Gastro-esophageal reflux disease without esophagitis] Onset: 3 02-09-2023 Chronic Essential hypertension (20 sources) Essential (primary) hypertension; Translations: [Essential hypertension] Onset: 2 Chronic Genitourinary symptoms and ill-defined conditions (1 source) Post-micturition incontinence 02-06-2021 Chronic Genitourinary symptoms and ill-defined conditions (3 sources) Increased frequency of urination; Translations: [Microscopic hematuria] 02-06-2021 Episodic Hyperplasia of prostate (20 sources) Benign prostatic hyperplasia; Translations: [Benign prostatic hyperplasia without lower urinary tract symptoms] Onset: 3 02-09-2023 Chronic Hypertension with complications and secondary hypertension (1 source) Hypertensive heart disease with heart failure; Translations: [HTN HEART DISEASE W/HEART FAIL] Onset: 2 Chronic Mycoses (3 sources) Onychomycosis; Translations: [Tinea unguium] 10-15-2023 Episodic Nutritional deficiencies (1 source) Vitamin D deficiency, unspecified; Translations: [VITAMIN D DEFICIENCY UNSPECIFIED] Onset: 2 Chronic Osteoarthritis (3 sources) Degenerative joint disease of ankle AND/OR foot; Translations: [Primary osteoarthritis, left ankle and foot] 10-15-2023 Chronic Other aftercare (3 sources) Other care home (current) drug therapy; Translations: [OTH [facility] CURRENT DRUG THERAPY] Onset: 2 Episodic Other connective tissue disease (2 sources) Pain of toe of right foot; Translations: [Pain in right toe(s)] 10-15-2023 Episodic Other connective tissue disease (2 sources) Pain of toe of left foot; Translations: [Pain in left toe(s)] 10-15-2023 Episodic Other connective tissue disease (2 sources) Pain in left foot; Translations: [Pain in left foot] 08-04-2024 Episodic Other diseases of veins and lymphatics (1 source) Vascular insufficiency; Translations: [Venous insufficiency (chronic) (peripheral)] 10-15-2023 Episodic Other nervous system disorders (1 source) Chronic pain syndrome; Translations: [CHRONIC PAIN SYNDROME] Onset: 2 Chronic Other nervous system disorders (20 sources) Chronic pain syndrome; Translations: [Chronic pain syndrome] Onset: 3 02-09-2023 Chronic Other nervous system disorders (20 sources) Peripheral nerve disease ; Translations: [Polyneuropathy, unspecified] Onset: 3 02-09-2023 Chronic Other nervous system disorders (3 sources) Polyneuropathy; Translations: [Other specified polyneuropathies] 10-15-2023 Chronic Other nutritional; endocrine; and metabolic disorders (1 source) Hyperuricemia without signs of inflammatory arthritis and tophaceous disease; Translations: [HU W/O SIGNS IA AND TOPHACEOUS DZ] Onset: 3 Episodic Other nutritional; endocrine; and metabolic disorders (20 sources) Hyperuricemia; Translations: [Hyperuricemia without signs of inflammatory arthritis and tophaceous disease] Onset: 3 02-09-2023 Episodic Debbie-; endo-; and myocarditis; cardiomyopathy (except that caused by tuberculosis or sexually transmitted disease) (2 sources) Dilated cardiomyopathy; Translations: [Dilated cardiomyopathy] Onset: 4 Chronic Peripheral and visceral atherosclerosis (20 sources) Peripheral vascular disease; Translations: [Peripheral vascular disease, unspecified] Onset: 3 02-09-2023 Chronic Residual codes; unclassified (1 source) H/O: anticoagulant therapy 02-06-2021 Episodic Residual codes; unclassified (2 sources) Localized edema; Translations: [Localized edema] Onset: 4 Episodic Residual codes; unclassified (2 sources) Personal history of other drug therapy; Translations: [Personal history of other drug therapy] Onset: 4 Episodic Residual codes; unclassified (2 sources) Bilateral lower limb edema; Translations: [Localized edema] 07-14-2024 Episodic Superficial injury; contusion (2 sources) Contusion of left foot; Translations: [Contusion of left foot, initial encounter] 08-04-2024 Episodic Thyroid disorders (20 sources) Thyroid nodule; Translations: [Nontoxic single thyroid nodule] Onset: 3 02-09-2023 Chronic Unclassified (2 sources) Permanent atrial fibrillation; Translations: [Permanent atrial fibrillation] Onset: 4 Viral infection (2 sources) Verruca plantaris; Translations: [Plantar wart] 08-04-2024 Episodic Past or Other Problems Problem Classification Problem Date Documented Da te Episodic/Chronic Acute and unspecified renal failure (1 source) Acute kidney failure, unspecified; Translations: [ACUTE KIDNEY FAILURE UNSPECIFIED] Onset: 07-13-2022 Episodic Administrative/social admission (20 sources) Patient encounter status; Translations: [Other specified counseling] Onset: 02-12-2023 Resolved: 09-10-2023 09-10-2023 Episodic Allergic reactions (20 sources) Inflammatory dermatosis; Translations: [Dermatitis, unspecified] Onset: 07-14-2024 07-14-2024 Episodic Deficiency and other anemia (1 source) Anemia, unspecified; Translations: [ANEMIA UNSPECIFIED] Onset: 07-13-2022 Episodic Mood disorders (20 sources) Mood disorders Onset: 04-05-2024 04-05-2024 Other connective tissue disease (1 source) Pain of toes of bilateral feet; Translations: [Pain in right toe(s)] 05-12-2024 Episodic Other gastrointestinal disorders (20 sources) Constipation; Translations: [Constipation, unspecified] Onset: 02-09-2023 Resolved: 09-10-2023 09-10-2023 Episodic Other screening for suspected conditions (not mental disorders or infectious disease) (20 sources) Encounter for screening for malignant neoplasm of prostate; Translations: [Raised prostate specific antigen] Onset: 07-08-2022 Episodic Pulmonary heart disease (20 sources) Pulmonary embolism; Translations: [Other pulmonary embolism without acute cor pulmonale] Onset: 02-09-2023 02-09-2023 Episodic Residual codes; unclassified (1 source) Edema, unspecified; Translations: [EDEMA UNSPECIFIED] Onset: 02-21-2022 Episodic Residual codes; unclassified (20 sources) Insomnia; Translations: [Insomnia, unspecified] Onset: 02-09-2023 02-09-2023 Episodic Results Test Name Value Interpretation Reference Range Facility ALL CBC WITH AUTO DIFFon BASOPHILS ABSOLUTE AUTO 0 [facility] Basophils/100 WBC (Bld) 0.6 % 0.2 - 2.0 % [facility] Eosinophils/100 WBC (Bld) 3.8 % 0.9 - 7.0 % [facility] Erythrocyte distribution width (RBC) [Ratio] 15.8 % High 11.0 - 15.0 % [facility] Hematocrit (Bld) [Volume fraction] 40.9 % Low 42.0 - 54.0 % [facility] Hemoglobin (Bld) [Mass/Vol] 13 g/dL Low 14.0 - 18.0 g/dL [facility] IMMATURE GRANULOCYTES ABS AUTO 0.02 [facility] Immature granulocytes/100 WBC (Bld) 0.4 % 0.0 - 0.5 % [facility] Interpretation and review of laboratory results Abnormal [facility] LYMPHOCYTES ABSOLUTE AUTO 1.3 [facility] Lymphocytes/100 WBC (Bld) 26.4 % 20.5 - 60.0 % [facility] MCH (RBC) [Entitic mass] 30 pg 25.9 - 34.0 pg [facility] MCHC (RBC) [Mass/Vol] 31.8 g/dL 29.9 - 35.2 g/dL [facility] MCV (RBC) [Entitic vol] 94.5 fL High 80.0 - 94.0 fL [facility] MONOCYTES ABSOLUTE AUTO 1.1 High [facility] Monocytes/100 WBC (Bld) 21.1 % High 1.7 - 12.0 % [facility] NEUTROPHILS ABSOLUTE AUTO 2.4 [facility] Neutrophils/100 WBC (Bld) 47.7 % 43.0 - 75.0 % [facility] Platelet mean volume (Bld) [Entitic vol] 11.7 fL 9.5 - 13.5 fL [facility] TBH EO # 0.2 [facility] PLT 163 [facility] RBC 4.33 Low [facility] WBC 5 [facility] CBC panel Auto (Bld)on 08-12 Erythrocyte distribution width (RBC) [Ratio] 13.1 % 11.6 - 15.4 % [facility] Hematocrit (Bld) [Volume fraction] 42.8 % 37.5 - 51.0 % [facility] Hemoglobin (Bld) [Mass/Vol] 13.5 g/dL 13.0 - 17.7 g/dL [facility] MCH (RBC) [Entitic mass] 30.3 pg 26.6 - 33.0 pg [facility] MCHC (RBC) [Mass/Vol] 31.5 g/dL 31.5 - 35.7 g/dL [facility] MCV (RBC) [Entitic vol] 96 fL 79 - 97 fL [facility] Platelets (Bld) [#/Vol] 180 10*3/uL [facility] RBC (Bld) [#/Vol] 4.46 10*6/uL [facility] WBC (Bld) [#/Vol] 4.9 10*3/uL [facility] Laboratory - Chemistry and C hemistry - challengeon 08-12-2024 Albumin [Mass/Vol] 4.1 g/dL 3.8 - 4.8 g/dL [facility] ALP [Catalytic activity/Vol] 105 U/L [facility] ALT [Catalytic activity/Vol] 40 U/L [facility] AST [Catalytic activity/Vol] 43 U/L High [facility] Bilirubin [Mass/Vol] 0.5 mg/dL 0.0 - 1 .2 mg/dL [facility] Calcium [Mass/Vol] 9.8 mg/dL 8.6 - 10. 2 mg/dL [facility] Chloride [Moles/Vol] 101 mmol/L 96 - 10 6 mmol/L [facility] CO2 [Moles/Vol] 27 mmol/L 20 - 29 mmol/L [facility] Creatinine [Mass/Vol] 1.82 mg/dL High 0.76 - 1.27 mg/dL [facility] GFR/1.73 sq M.predicted among non-blacks MDRD (S/P/Bld) [Vol rate/Area] 38 mL/min/{1.73_m2} Low 59 - PINF mL/min/1.73 [facility] Globulin (S) [Mass/Vol] 2.6 g/dL 1.5 - 4.5 g/dL [facility] Glucose [Mass/Vol] 103 mg/dL High 70 - 99 mg/dL [facility] Magnesium [Mass/Vol] 2.3 mg/dL 1.6 - 2 .3 mg/dL [facility] Potassium [Moles/Vol] 4.1 mmol/L 3.5 - 5.2 mmol/L [facility] Prostate specific Ag [Mass/Vol] 6.7 ng/mL High 0.0 - 4.0 ng/mL [facility] Comment on above: Leno ECLIA methodol ogy. According to the [place] [employer], Serum PSA should decrease and remain at undetectable levels after radical prostatectomy. The AUA defines biochemical recurrence as an initial PSA value 0.2 ng/mL or greater followed by a subsequent confirmatory PSA value 0.2 ng/mL or greater. Values obtained with different assay methods or kits cannot be used interchangeably. Results cannot be interpreted as absolute evidence of the presence or absence of malignant disease. Protein [Mass/Vol] 6.7 g/dL 6.0 - 8.5 g/dL [facility] Sodium [Moles/Vol] 142 mmol/L 134 - 144 mmol/L [facility] TSH Qn 1.42 m[IU]/L [facility] Urea nitrogen [Mass/Vol] 21 mg/dL 8 - 27 mg/dL [facility] Urea nitrogen/Creatinine [Mass ratio] 12 mg/mg 10 - 24 [facility] Lipid 1996 panelon Cholesterol [Mass/Vol] 126 mg/dL 100 - 199 mg/dL [facility] Cholesterol in HDL [Mass/Vol] 41 mg/dL 39 - PINF mg/dL [facility] Cholesterol in LDL [Mass/Vol] 68 mg/dL 0 - 99 mg/dL [facility] Cholesterol in VLDL [Mass/Vol] 17 mg/dL 5 - 40 mg/dL [facility] Triglyceride [Mass/Vol] 87 mg/dL 0 - 149 mg/dL [facility] Microalbumin/Creatinine rati o panel (U)on 08-12-2024 Albumin DL <= 20 mg/L (U) [Mass/Vol] 9.9 ug/mL [facility] Albumin/Creatinine (U) [Mass ratio] 14 [facility] Comment on above: Normal: 0 - 29 Moderately increased: 30 - 300 Severely increased: >300 Creatinine (U) [Mass/Vol] 72.3 mg/dL Not Estab. [facility] No Panel Informationon 08-12 Interpretation and review of laboratory results Abnormal [facility] Healthcare Performed at: 01 - [address] [id number] [employer] Sales Representative: Silvestre Guadarrama PhD, Phone: [phone] [facility] Healthcare 29on 07-18-2024 29 Addended by: SEAMUS JOYCE on: 07/18/2024 11:32 AM Modules accepted: Orders Normal [facility] Office Visiton 07-18-2024 Follow-up visit [id number] KalpanaKei 1945 M Date Provider Department Center 07/18/2024 [id number] JOYCE CARD [facility] Family History Problem Relation Age of Onset No Known Problems Mother No Known Problems Father Family Status - Relation Status Age at Mother Father Level of Service:56202 [place] OFFICE/OUTPATIENT ESTABLISHED MOD MDM 30 MIN Reason for Visit and Comments: Atrial Fibrillation [80] Hyperlipidemia [182] Hypertension [253683] - Pt is here for a follow up for a cardioversion. Normal [facility] ALL CBC WITH AUTO DIFFon BASOPHILS ABSOLUTE AUTO 0 [facility] Basophils/100 WBC (Bld) 0.5 % 0.2 - 2.0 % [facility] Eosinophils/100 WBC (Bld) 4 % 0.9 - 7.0 % [facility] Erythrocyte distribution width (RBC) [Ratio] 14.6 % 11.0 - 15.0 % [facility] Hematocrit (Bld) [Volume fraction] 42.7 % 42.0 - 54.0 % [facility] Hemoglobin (Bld) [Mass/Vol] 13.8 g/dL Low 14.0 - 18.0 g/dL [facility] IMMATURE GRANULOCYTES ABS AUTO 0.03 [facility] Immature granulocytes/100 WBC (Bld) 0.4 % 0.0 - 0.5 % [facility] Interpretation and review of laboratory results Abnormal [facility] LYMPHOCYTES ABSOLUTE AUTO 1.1 Low [facility] Lymphocytes/100 WBC (Bld) 13.7 % Low 20.5 - 60.0 % [facility] MCH (RBC) [Entitic mass] 31.1 pg 25.9 - 34.0 pg [facility] MCHC (RBC) [Mass/Vol] 32.3 g/dL 29.9 - 35.2 g/dL [facility] MCV (RBC) [Entitic vol] 96.2 fL High 80.0 - 94.0 fL [facility] MONOCYTES ABSOLUTE AUTO 0.9 High [facility] Monocytes/100 WBC (Bld) 11.9 % 1.7 - 12.0 % [facility] NEUTROPHILS ABSOLUTE AUTO 5.5 [facility] Neutrophils/100 WBC (Bld) 69.5 % 43.0 - 75.0 % [facility] Platelet mean volume (Bld) [Entitic vol] 11.2 fL 9.5 - 13.5 fL [facility] TBH EO # 0.3 [facility] PLT 146 Low [facility] TB RBC 4.44 Low [facility] WBC 7.9 [facility] ALL MAGNESIUMon 07-14-2024 Magnesium [Mass/Vol] 2.3 mg/dL 1.8 - 2 .4 mg/dL [facility] ALL T3 FREEon 07-14-2024 Free T3 [Mass/Vol] 1.63 pg/mL Low 2.18 - 3. 98 pg/mL [facility] ALL THYROID STIM HORMONEon 1 09-13-2023 TSH Qn 5.401 m[IU]/L High [facility] ALL THYROXINE (T4) FREEon Free T4 [Mass/Vol] 1.17 ng/dL 0.76 - 1. 46 ng/dL [facility] ALL URIC ACIDon 07-14-2024 Urate [Mass/Vol] 6.8 mg/dL 3.5 - 7.2 mg/dL [facility] CMP (CMP) (FOR REMOTE FH C USE)on 07-14-2024 Albumin [Mass/Vol] 3.2 g/dL Low 3.4 - 5.0 g/dL [facility] ALBUMIN GLOBULIN RATIO 0.9 [facility] ALP [Catalytic activity/Vol] 79 U/L 46 - 116 U/L [facility] ALT [Catalytic activity/Vol] 28 U/L 16 - 63 U/L [facility] Anion gap [Moles/Vol] 12.8 mmol/L [facility] AST [Catalytic activity/Vol] 18 U/L 15 - 37 U/L [facility] Bilirubin [Mass/Vol] 0.6 mg/dL 0.2 - 1 .0 mg/dL [facility] Calcium [Mass/Vol] 9.2 mg/dL 8.5 - 10. 1 mg/dL [facility] Chloride [Moles/Vol] 105 mmol/L 98 - 10 7 mmol/L [facility] CO2 [Moles/Vol] 30.2 mmol/L 21.0 - 32.0 mmol/L [facility] Creatinine [Mass/Vol] 1.65 mg/dL High 0.70 - 1.30 mg/dL [facility] GFR/1.73 sq M.predicted CKD-EPI (S/P/Bld) [Vol rate/Area] 49 Low >=60 mL/min/1.73m 2 [facility] Globulin (S) [Mass/Vol] 3.6 g/dL [facility] Glucose [Mass/Vol] 105 mg/dL 74 - 106 mg/dL [facility] Potassium [Moles/Vol] 4 mmol/L 3.5 - 5.1 mmol/L [facility] Protein [Mass/Vol] 6.8 g/dL 6.4 - 8.2 g/dL [facility] Sodium [Moles/Vol] 144 mmol/L 136 - 145 mmol/L [facility] TBH EGFR-NON AF [place] 41 Low >=60 mL/min/1.73m 2 [facility] Urea nitrogen [Mass/Vol] 16 mg/dL 7.0 - 18.0 mg/dL [facility] Urea nitrogen/Creatinine [Mass ratio] 9.7 mg/mg [facility] No Panel Informationon 07-14 Interpretation and review of laboratory results Abnormal [facility] BASIC METABOLIC PANELon Anion gap [Moles/Vol] 9 mmol/L Normal 7-20 [facility] Comment on above: Performed By: #### L [id number] ####[facility] (BEAKER)[address] [place] [address] Calcium [Mass/Vol] 9.0 mg/dL Normal 8.6-10.3 [facility] Comment on above: Performed By: #### L AB15 ####[facility] (YEN)[address] [place] [address] Chloride [Moles/Vol] 103 mmol/L Normal 98-107 [facility] Comment on above: Performed By: #### L [id number] ####[facility] ([facility])[address] [place] [address] CO2 [Moles/Vol] 32 mmol/L High 21-[address] [facility] Comment on above: Performed By: #### L [id number] ####[facility] ([facility])[address] [place] [place] [address] Creatinine [Mass/Vol] 1.69 mg/dL High 0.70-1.30 [facility] Comment on above: Performed By: #### L [id number] ####[facility] ([facility])[address] [place] [address] GLOMERULAR FILTRATION RATE ML/MIN/1.73 SQ M.PREDICTED 41.3 mL/min/1.73m*2 Low >60.0 [facility] Comment on above: Result Comment: [facility]???s estimated glomerular filtration rate (eGFR) will [...] of individuals. Performed By: #### L AB15 ####[facility] ([facility] [facility] [place] [address] Glucose [Mass/Vol] 115 mg/dL High 70-100 [facility] Comment on above: Performed By: #### L AB15 ####[facility] (BEAKER)[address] [place] [address] Potassium [Moles/Vol] 3.9 mmol/L Normal 3.5-5.1 [facility] Comment on above: Performed By: #### L [id number] ####[facility] (BEAKER)[address] [place] [address] Sodium [Moles/Vol] 140 mmol/L Normal 136-145 [facility] Comment on above: Performed By: #### L [id number] ####[facility] (BEAKER)[address] [place] [address] Urea nitrogen [Mass/Vol] 19 mg/dL Normal 7-25 [facility] Comment on above: Performed By: #### L [id number] ####[facility] (BEAKER)[address] [place] [address] UREA NITROGEN/CREATININE (MASS RATIO) IN SER/PLAS 11.2 Normal [facility] Comment on above: Performed By: #### L [id number] ####[facility] (BEAKER)[address] [place] [address] CBCon 07-04-2024 Erythrocyte distribution width (RBC) [Ratio] 14.6 % Normal 11.5-15.0 [facility] Comment on above: Performed By: #### L [id number] ####[facility] (BEAKER)[address] [place] [address] ERYTHROCYTE MEAN CORPUSCULAR HEMOGLOBIN CONCENTRATION (G/DL) BY AUTOMATED 31.8 g/dL Low 32.0-35.0 [facility] Comment on above: Performed By: #### L [id number] ####[facility] (BEAKER)[address] [place] [address] Hematocrit (Bld) [Volume fraction] 39.6 % Normal 39.0-55.0 [facility] Comment on above: Performed By: #### L [id number] ####[facility] (BEAKER)[address] [place] [address] Hemoglobin (Bld) [Mass/Vol] 12.6 g/dL Low 13.0-17.0 [facility] Comment on above: Performed By: #### L [id number] ####[facility] ([facility] [place] [address] MCH (RBC) [Entitic mass] 30.6 pg Normal 27.0-33.0 [facility] Comment on above: Performed By: #### L [id number] ####[facility] ([facility])[address] [place] [address] MCV (RBC) [Entitic vol] 96.1 fL Normal 82.0-98.0 [facility] Comment on above: Performed By: #### L [id number] ####[facility] ([facility])[address] [place] [address] PLATELETS (10*3/UL) IN BLOOD AUTOMATED COUNT 110 10*3/uL Low 150-400 [facility] Comment on above: Performed By: #### L [id number] ####[facility] ([facility])[address] [place] [address] RBC (Bld) [#/Vol] 4.12 10*6/uL Low 4.20-5.70 [facility] Comment on above: Performed By: #### L [id number] ####[facility] ([facility] [place] [address] WBC (Bld) [#/Vol] 5.43 10*3/uL Normal 4.00-10.60 [facility] Comment on above: Performed By: #### L [id number] ####[facility] ([facility])[address] [place] [address] HPon 07-04-2024 HP Patient was seen and examined. No change from the note below. Labs were reviewed. The procedure was discussed with patient including risks and benefits and he is agreeable to proceed Seamus Joyce MD [place] [facility] Note Reason for [...] He was admitted recently on 04/16/2024 to [facility] with worsening legs edema and shortness of [...] Denies chest pain, exertional dyspnea, orthopnea/PND, palpitations, lightheadedness/dizzi ness. He admits chronic legs edema and it [...] Atrial flutter (CMS/HCC), CAD (coronary artery disease), PA (myocardial infarction) (CMS/HCC), and Pulmonary embolism (CMS/HCC). Surgical History He has a past surgical history that includes Ankle surgery (Left). Social History He reports that he has never smoked. He has never used smokeless tobacco. He reports that he does not drink alcohol. No history on file for drug use. Family History Family History Family History Problem Relation Name [...] Rfl: Last Recorded Vitals Visit Vitals BP 9 (more content not included)... Normal [facility] - Attestation signed by Seamus Joyce MD at 07/04/2024 12:55 PM I personally saw and examined the patient on the same date of service as resident/fellow Dr Estrada. I discussed the findings and therapeutic plan with the resident/fellow Dr estrada. I agree with the documentation, except for any edits/updates below. Teaching Physician's Revisions: None Seamus Joyce MD, [facility] History Of Present Illness Kei Acuna is [...] Atrial flutter (CMS/HCC), CAD (coronary artery disease), PA (myocardial infarction) (CMS/HCC), and Pulmonary embolism (CMS/HCC). [...] a hospital admission) ECG 12 lead 06/03/2024 [id number] Final Review of Systems 12 ROS negative [...] 150 QT Interval 456 QTC CALCULATION(BAZETT) 499 R-[place] -73 T Wave [place] 84 Impression Atrial fibrillation with premature ventricular or aberrantly conducted complexes Left axis deviation Non-specific intra-ventricular conduction block Minimal voltage criteria for LVH, may be normal variant ( [place] product ) Abnormal ECG No previous ECGs [...] home meds -further recs pending procedures' results [facility] NURSNOTEon 07-04-2024 NURSNOTE Bedside swallow stud y completed and passed. [facility] NURSNOTE RN educated pt on d/ c [...] off of unit with all of belongings. [facility] Orders Onlyon 06-27-2024 Orders Only [id number] Kei Acuna 1945 M Date Provider Department Center 06/27/2024 JULIANNA LAO [facility] Family History Problem Relation Age of Onset No Known Problems Mother No Known Problems Father Family Status - Relation Status Age at Mother Father [facility] Office Visiton 06-03-2024 Follow-up visit [id number] Kei Acuna 1945 M Date Provider Department Center 06/03/2024 [id number] BHAT GORDON [place] Family History Problem Relation Age of Onset No Known Problems Mother No Known Problems Father Family Status - Relation Status Age at Mother Father Level of Service:73596 [place] OFFICE/OUTPATIENT ESTABLISHED MOD MDM 30 MIN Reason for Visit and Comments: Atrial Fibrillation [80] Hyperlipidemia [182] Hypertension [084389] - Pt is here for a one month follow up. [facility] Orders Onlyon 06-03-2024 Orders Only [id number] Kei Acuna Cameron 1945 M Date Provider Department Center 06/03/2024 JEANNIE HENDRIX GORDON [place] Family History Problem Relation Age of Onset No Known Problems Mother No Known Problems Father Family Status - Relation Status Age at Mother Father Normal [facility] 36on 05-31-2024 36 Patient called just [...] BP doesn't improve. They both verbalized understanding. [facility] 36on 05-30-[address] Joyce, s/p 3 day Holter monitor- increase metoprolol to 50mg BID. Patient's made aware. They will continue to keep track of BP. She verbalized understanding. [facility] Telephoneon 05-30-2024 Telephone [id number] Jonel Acunamary Barnes 1945 Provider Department Center 05/30/2024 Piyush8-DANNA CASTRO GORDON [place] Family History Problem Relation Age of Onset No Known Problems Mother No Known Problems Father Family Status - Relation Status Age at Mother Father Normal [facility] Office Visiton 05-09-2024 Follow-up visit [id number] Jonel Acunamary Barnes 1945 M Counts Include [facility] Provider Department Center 05/09/2024 [id number] JOYCE Family History Problem Relation Age of Onset No Known Problems Mother No Known Problems Father Family Status - Relation Status Age at Mother Father Level of Service:56832 [place] OFFICE/OUTPATIENT NEW MODERATE MDM 45 MINUTES Normal [facility] CBC AUTO DIFFon 11-10-2022 BASO # 0.0 103/ul Normal 0.0-0.1 [facility] Comment on above: Performed By: #### C BC #### [facility] [address] [address] [address] Karen Marie Basophils/100 WBC (Bld) 0.4 % Normal 0.2-2.0 [facility] Comment on above: Performed By: #### C BC #### [facility] [address] [address] [address] Karen Marie EO # 0.1 103/ul Normal 0.0-0.7 [facility] Comment on above: Performed By: #### C BC #### [facility] [address] [place] [address] Dr. Karen Marie Eosinophils/100 WBC (Bld) 1.9 % Normal 0.9-7.0 [facility] Comment on above: Performed By: #### C BC #### [facility] [address] [place] [address] Dr. Karen Marie Erythrocyte distribution width (RBC) [Ratio] 16.1 % Critically high 11.0-15.0 [facility] Comment on above: Performed By: #### C BC #### [facility] [address] [place] [address] Dr. Karen Marie Hematocrit (Bld) [Volume fraction] 42.5 % Normal 42.0-54.0 [facility] Comment on above: Performed By: #### C BC #### [facility] [address] [place] [address] Dr. Karen Marie Hemoglobin (Bld) [Mass/Vol] 13.5 g/dL Critically low 14.0-18.0 [facility] Comment on above: Performed By: #### C BC #### [facility] [address] [place] [address] Dr. Karen Marie IG # 0.03 10e3/ul Normal 0.00-0.03 [facility] Comment on above: Performed By: #### C BC #### [facility] [address] [place] [address] Dr. Karen Marie IG % 0.4 % Normal 0.0-0.5 [facility] Comment on above: Performed By: #### C BC #### [facility] [address] [address] [address] Karen Marie LYMPH # 1.7 103/ul Normal 1.2-3.8 [facility] Comment on above: Performed By: #### C BC #### [facility] [address] [place] [address] Dr. Karen Marie Lymphocytes/100 WBC (Bld) 22.3 % Normal 20.5-60.0 [facility] Comment on above: Performed By: #### C BC #### [facility] [address] [place] [address] Dr. Karen Marie MANUAL DIFF REQ NO Normal [facility] Comment on above: Performed By: #### C BC #### [facility] [address] [place] [address] Dr. Karen Marie MCH (RBC) [Entitic mass] 27.8 pg Normal 25.9-34.0 [facility] Comment on above: Performed By: #### C BC #### [facility] [address] [place] [address] Dr. Karen Marie MCHC (RBC) [Mass/Vol] 31.8 g/dL Normal 29.9-35.2 [facility] Comment on above: Performed By: #### C BC #### [facility] [address] [place] [address] Dr. Karen Marie MCV (RBC) [Entitic vol] 87.4 fL Normal 80.0-94.0 [facility] Comment on above: Performed By: #### C BC #### [facility] [address] [place] [address] Dr. Karen Marie MONO # 0.9 103/ul Critically high 0.3-0.8 [facility] Comment on above: Performed By: #### C BC #### [facility] [address] [place] [address] Dr. Karen Marie Monocytes/100 WBC (Bld) 11.4 % Normal 1.7-12.0 [facility] Comment on above: Performed By: #### C BC #### [facility] [address] [place] [address] Dr. Karen Marie NEUT # 4.7 103/ul Normal 1.4-6.5 [facility] Comment on above: Performed By: #### C BC #### [facility] [address] [address] [address] Karen Marie Neutrophils/100 WBC (Bld) 63.6 % Normal 43.0-75.0 [facility] Comment on above: Performed By: #### C BC #### [facility] [address] [place] [address] Dr. Karen Marie Platelet mean volume (Bld) [Entitic vol] 11.9 fL Normal 9.5-13.5 [facility] Comment on above: Performed By: #### C BC #### [facility] [address] [place] [address] Dr. Karen Marie PLT 162 103/ul Normal 150-450 [facility] Comment on above: Performed By: #### C BC #### [facility] [address] [place] [address] Dr. Karen Marie RBC 4.86 106/ul Normal 4.70-6.10 [facility] Comment on above: Performed By: #### C BC #### [facility] [address] [place] [address] Dr. Karen Marie WBC 7.4 103/ul Normal 4.0-11.0 [facility] Comment on above: Performed By: #### C BC #### [facility] [address] [place] [address] Dr. Karen Marie PROF 14(COMP METB)on 023 Albumin [Mass/Vol] 3.8 g/dL Normal 3.4-5.0 [facility] Comment on above: Performed By: #### P SAD, FERR, FETIBC #### [facility] [address] [address] [place] [address] Dr. Karen Marie Albumin/Globulin [Mass ratio] 1.1 {ratio} Normal [facility] Comment on above: Performed By: #### P SAD, FERR, FETIBC #### [facility] [address] [address] [address] Karen Marie ALP [Catalytic activity/Vol] 79 U/L Normal 46-116 [facility] Comment on above: Performed By: #### P SAD, FERR, FETIBC #### [facility] [address] [address] [address] Karen Marie ALT [Catalytic activity/Vol] 15 U/L Critically low 16-63 [facility] Comment on above: Performed By: #### P SAD, FERR, FETIBC #### [facility] [address] [address] [address] Karen Marie Anion gap [Moles/Vol] 12.3 mmol/L Normal [facility] Comment on above: Performed By: #### P SAD, FERR, FETIBC #### [facility] [address] [place] [address] Dr. Karen Marie AST [Catalytic activity/Vol] 17 U/L Normal 15-37 [facility] Comment on above: Performed By: #### P SAD, FERR, FETIBC #### [facility] [address] [address] [address] Karen Marie Bilirubin [Mass/Vol] 0.9 mg/dL Normal 0.2-1.0 [facility] Comment on above: Performed By: #### P SAD, FERR, FETIBC #### [facility] [address] [address] [address] Karen Marie Calcium [Mass/Vol] 9.3 mg/dL Normal 8.5-10.1 [facility] Comment on above: Performed By: #### P SAD, FERR, FETIBC #### [facility] [address] [address] [address] Karen Marie Chloride [Moles/Vol] 103 mmol/L Normal 98-107 [facility] Comment on above: Performed By: #### P SAD, FERR, FETIBC #### [facility] [address] [address] [address] Karen Marie CO2 [Moles/Vol] 30.7 mmol/L Normal 21.0-32.0 [facility] Comment on above: Performed By: #### P SAD, FERR, FETIBC #### [facility] [address] [place] [address] Dr. Karen Marie Creatinine [Mass/Vol] 1.37 mg/dL Critically high 0.70-1.30 [facility] Comment on above: Performed By: #### P SAD, FERR, FETIBC #### [facility] [address] [address] [address] Karen Marie EGFR-AF SOUTH AFRICAN >60 Normal >=60 [facility] Comment on above: Performed By: #### P SAD, FERR, FETIBC #### [facility] [address] [place] [address] Dr. Karen Marie EGFR-NON AF SOUTH AFRICAN 51 mL/min/1.73m2 Critically low >=60 [facility] Comment on above: Performed By: #### P SAD, FERR, FETIBC #### [facility] [address] [place] [address] Dr. Karen Marie Globulin (S) [Mass/Vol] 3.5 g/dL Normal [facility] Comment on above: Performed By: #### P SAD, FERR, FETIBC #### [facility] [address] [place] [address] Dr. Karen Marie Glucose [Mass/Vol] 102 mg/dL Normal 74-106 [facility] Comment on above: Performed By: #### P SAD, FERR, FETIBC #### [facility] [address] [place] [address] Dr. Karen Marie Potassium [Moles/Vol] 4.0 mmol/L Normal 3.5-5.1 [facility] Comment on above: Performed By: #### P SAD, FERR, FETIBC #### [facility] [address] [place] [address] Dr. Karen Marie Protein [Mass/Vol] 7.3 g/dL Normal 6.4-8.2 [facility] Comment on above: Performed By: #### P SAD, FERR, FETIBC #### [facility] [address] [place] [address] Dr. Karen Marie Sodium [Moles/Vol] 142 mmol/L Normal 136-145 [facility] Comment on above: Performed By: #### P SAD, FERR, FETIBC #### [facility] [address] [place] [address] Dr. Karen Marie Urea nitrogen [Mass/Vol] 16.0 mg/dL Normal 7.0-18.0 [facility] Comment on above: Performed By: #### P SAD, FERR, FETIBC #### [facility] [address] [place] [address] Dr. Karen Marie Urea nitrogen/Creatinine [Mass ratio] 11.7 mg/mg Normal [facility] Comment on above: Performed By: #### P SAD, FERR, FETIBC #### [facility] [address] [place] [address] Dr. Karen Marie URIC ACID SERUMon 11-10-2022 Urate [Mass/Vol] 8.9 mg/dL Critically high 3.5-7.2 [facility] Comment on above: Performed By: #### P SAD, FERR, FETIBC #### [facility] [address] [place] [address] Dr. Karen Marie CBC AUTO DIFFon 07-08-2022 BASO # 0.0 103/ul Normal 0.0-0.1 [facility] Comment on above: Performed By: #### P SAD, FERR, FETIBC #### [facility] [address] [place] [address] Dr. Karen Marie Basophils/100 WBC (Bld) 0.4 % Normal 0.2-2.0 [facility] Comment on above: Performed By: #### P SAD, FERR, FETIBC #### [facility] [address] [place] [address] Dr. Karen Marie EO # 0.1 103/ul Normal 0.0-0.7 [facility] Comment on above: Performed By: #### P SAD, FERR, FETIBC #### [facility] [address] [place] [address] Dr. Karen Marie Eosinophils/100 WBC (Bld) 1.7 % Normal 0.9-7.0 [facility] Comment on above: Performed By: #### P SAD, FERR, FETIBC #### [facility] [address] [place] [address] Dr. Karen Marie Erythrocyte distribution width (RBC) [Ratio] 13.6 % Normal 11.0-15.0 [facility] Comment on above: Performed By: #### P SAD, FERR, FETIBC #### [facility] [address] [place] [address] Dr. Karen Marie Hematocrit (Bld) [Volume fraction] 43.3 % Normal 42.0-54.0 [facility] Comment on above: Performed By: #### P SAD, FERR, FETIBC #### [facility] [address] [place] [address] Dr. Karen Marie Hemoglobin (Bld) [Mass/Vol] 14.3 g/dL Normal 14.0-18.0 [facility] Comment on above: Performed By: #### P SAD, FERR, FETIBC #### [facility] [address] [place] [address] Dr. Karen Marie IG # 0.01 10e3/ul Normal 0.00-0.03 [facility] Comment on above: Performed By: #### P SAD, FERR, FETIBC #### [facility] [address] [place] [address] Dr. Karen Marie IG % 0.1 % Normal 0.0-0.5 [facility] Comment on above: Performed By: #### P SAD, FERR, FETIBC #### [facility] [address] [place] [address] Dr. Karen Marie LYMPH # 1.9 103/ul Normal 1.2-3.8 [facility] Comment on above: Performed By: #### P SAD, FERR, FETIBC #### [facility] [address] [place] [address] Dr. Karen Marie Lymphocytes/100 WBC (Bld) 27.7 % Normal 20.5-60.0 [facility] Comment on above: Performed By: #### P SAD, FERR, FETIBC #### [facility] [address] [place] [address] Dr. Karen Marie MANUAL DIFF REQ NO Normal [facility] Comment on above: Performed By: #### P SAD, FERR, FETIBC #### [facility] [address] [place] [address] Dr. Karen Marie MCH (RBC) [Entitic mass] 29.9 pg Normal 25.9-34.0 [facility] Comment on above: Performed By: #### P SAD, FERR, FETIBC #### [facility] [address] [place] [address] Dr. Karen Marie MCHC (RBC) [Mass/Vol] 33.0 g/dL Normal 29.9-35.2 [facility] Comment on above: Performed By: #### P SAD, FERR, FETIBC #### [facility] [address] [place] [address] Dr. Karen Marie MCV (RBC) [Entitic vol] 90.6 fL Normal 80.0-94.0 [facility] Comment on above: Performed By: #### P SAD, FERR, FETIBC #### [facility] [address] [place] [address] Dr. Karen Marie MONO # 0.8 103/ul Normal 0.3-0.8 [facility] Comment on above: Performed By: #### P SAD, FERR, FETIBC #### [facility] [address] [place] [address] Dr. Karen Marie Monocytes/100 WBC (Bld) 11.1 % Normal 1.7-12.0 [facility] Comment on above: Performed By: #### P SAD, FERR, FETIBC #### [facility] [address] [place] [address] Dr. Karen Marie NEUT # 4.1 103/ul Normal 1.4-6.5 [facility] Comment on above: Performed By: #### P SAD, FERR, FETIBC #### [facility] [address] [place] [address] Dr. Karen Marie Neutrophils/100 WBC (Bld) 59.0 % Normal 43.0-75.0 [facility] Comment on above: Performed By: #### P SAD, FERR, FETIBC #### [facility] [address] [place] [address] Dr. Karen Marie Platelet mean volume (Bld) [Entitic vol] 11.3 fL Normal 9.5-13.5 [facility] Comment on above: Performed By: #### P SAD, FERR, FETIBC #### [facility] [address] [place] [address] Dr. Karen Marie PLT 175 103/ul Normal 150-450 [facility] Comment on above: Performed By: #### P SAD, FERR, FETIBC #### [facility] [address] [place] [address] Dr. Karen Marie RBC 4.78 106/ul Normal 4.70-6.10 [facility] Comment on above: Performed By: #### P SAD, FERR, FETIBC #### [facility] [address] [place] [address] Dr. Karen Marie WBC 7.0 103/ul Normal 4.0-11.0 [facility] Comment on above: Performed By: #### P SAD, FERR, FETIBC #### [facility] [address] [place] [address] Dr. Karen Marie FERRITINon 07-08-2022 Ferritin [Mass/Vol] 43.0 ng/mL Normal 26.0-388.0 [facility] Comment on above: Performed By: #### P SAD, FERR, FETIBC #### [facility] [address] [place] [address] Dr. Karen Marie IRON AND TIBCon 07-08-2022 % SATURATION 12.7 % Normal [facility] Comment on above: Performed By: #### P SAD, FERR, FETIBC #### [facility] [address] [place] [address] Dr. Karen Marie Iron [Mass/Vol] 46.0 ug/dL Critically low 65.0-175.0 [facility] Comment on above: Performed By: #### P PEYTON VENTURA FETIBC #### [facility] [address] [address] [address] Karen Marie TIBC DIRECT 363.0 ug/dL Normal 250.0-450.0 [facility] Comment on above: Performed By: #### P PEYTON VENTURA FETIBC #### [facility] [address] [address] [address] Karen Marie LIPID PROFILEon 07-08-2022 CHOL-HDL RATIO NORM SEE BELOW Normal [facility] Comment on above: Result Comment: 3.3 - 4.4 LOW RISK 4.4 - 7.1 AVERAGE RISK 7.1 - 11.0 MODERATE RISK >11.0 HIGH RISK Performed By: #### L IPID, CMP, URIC, TSH #### [facility] [address] [address] [address] Karen Marie Cholesterol [Mass/Vol] 131 mg/dL Normal <=200 [facility] Comment on above: Performed By: #### L IPID, CMP, URIC, TSH #### [facility] [address] [address] [address] Karen Marie Cholesterol in HDL [Mass/Vol] 52 mg/dL Normal 40-60 [facility] Comment on above: Performed By: #### L IPID, CMP, URIC, TSH #### [facility] [address] [address] [address] Karen Marie Cholesterol in LDL [Mass/Vol] 59.2 mg/dL Normal [facility] Comment on above: Performed By: #### L IPID, CMP, URIC, TSH #### [facility] [address] [address] [address] Karen Marie Cholesterol.total/Chol esterol in HDL [Mass ratio] 2.5 {ratio} Normal [facility] Comment on above: Performed By: #### L IPID, CMP, URIC, TSH #### [facility] [address] [address] [address] Karen Marie HDL NORMAL > or = 60 mg/dl - LO W CARDIOVASCULAR RISK <40 mg/dl - HIGH CARDIOVASCULAR RISK Normal [facility] Comment on above: Performed By: #### L IPID, CMP, URIC, TSH #### [facility] [address] [address] [address] Karen Marie LDL CALC NORMAL SEE BELOW Normal [facility] Comment on above: Result Comment: <100 mg/dl OPTIMAL 100 - 129 mg/dl NEAR OR ABOVE OPTIMAL 130 - 159 mg/dl BORDERLINE HIGH 160 - 189 mg/dl HIGH >190 mg/dl VERY HIGH Performed By: #### L IPID, CMP, URIC, TSH #### [facility] [address] [address] [address] Karen Marie Triglyceride [Mass/Vol] 99 mg/dL Normal <=150 [facility] Comment on above: Performed By: #### L IPID, CMP, URIC, TSH #### [facility] [address] [address] [address] Karen Marie VLDL CALC 19.8 mg/dL Normal [facility] Comment on above: Performed By: #### L IPID, CMP, URIC, TSH #### [facility] [address] [address] [address] Karen Maire PROF 14(COMP METB)on 022 Albumin [Mass/Vol] 3.5 g/dL Normal 3.4-5.0 [facility] Comment on above: Performed By: #### L IPID, CMP, URIC, TSH #### [facility] [address] [address] [address] Karen Marie Albumin/Globulin [Mass ratio] 0.9 {ratio} Normal [facility] Comment on above: Performed By: #### L IPID, CMP, URIC, TSH #### [facility] [address] [address] [address] Karen Marie ALP [Catalytic activity/Vol] 83 U/L Normal 46-116 [facility] Comment on above: Performed By: #### L IPID, CMP, URIC, TSH #### [facility] [address] [address] [address] Karen Marie ALT [Catalytic activity/Vol] 13 U/L Critically low 16-63 [facility] Comment on above: Performed By: #### L IPID, CMP, URIC, TSH #### [facility] [address] [address] [address] Karen Marie Anion gap [Moles/Vol] 6.9 mmol/L Normal [facility] Comment on above: Performed By: #### L IPID, CMP, URIC, TSH #### [facility] [address] [address] [address] Karen Marie AST [Catalytic activity/Vol] 25 U/L Normal 15-37 [facility] Comment on above: Performed By: #### L IPID, CMP, URIC, TSH #### [facility] [address] [address] [address] Karen Marie Bilirubin [Mass/Vol] 0.5 mg/dL Normal 0.2-1.0 [facility] Comment on above: Performed By: #### L IPID, CMP, URIC, TSH #### [facility] [address] [address] [address] Karen Marie Calcium [Mass/Vol] 9.9 mg/dL Normal 8.5-10.1 [facility] Comment on above: Performed By: #### L IPID, CMP, URIC, TSH #### [facility] [address] [address] [address] Karen Marie Chloride [Moles/Vol] 101 mmol/L Normal 98-107 [facility] Comment on above: Performed By: #### L IPID, CMP, URIC, TSH #### [facility] [address] [address] [address] Karen Marie CO2 [Moles/Vol] 31.5 mmol/L Normal 21.0-32.0 [facility] Comment on above: Performed By: #### L IPID, CMP, URIC, TSH #### [facility] [address] [address] [address] Karen Marie Creatinine [Mass/Vol] 1.51 mg/dL Critically high 0.70-1.30 [facility] Comment on above: Performed By: #### L IPID, CMP, URIC, TSH #### [facility] [address] [address] [address] Karen Marie EGFR-AF S[place]FR[place] 55 mL/min/1.73m2 Critically low >=60 [facility] Comment on above: Performed By: #### L IPID, CMP, URIC, TSH #### [facility] [address] [address] [address] Karen Marie EGFR-NON AF [place] 45 mL/min/1.73m2 Critically low >=60 [facility] Comment on above: Performed By: #### L IPID, CMP, URIC, TSH #### [facility] [address] [place] [address] Dr. Karen Marie Globulin (S) [Mass/Vol] 3.9 g/dL Normal [facility] Comment on above: Performed By: #### L IPID, CMP, URIC, TSH #### [facility] [address] [place] [address] Dr. Karen Marie Glucose [Mass/Vol] 124 mg/dL Critically high 74-106 [facility] Comment on above: Performed By: #### L IPID, CMP, URIC, TSH #### [facility] [address] [place] [address] Dr. Karen Marie Potassium [Moles/Vol] 3.4 mmol/L Critically low 3.5-5.1 [facility] Comment on above: Performed By: #### L IPID, CMP, URIC, TSH #### [facility] [address] [place] [address] Dr. Karen Marie Protein [Mass/Vol] 7.4 g/dL Normal 6.4-8.2 [facility] Comment on above: Performed By: #### L IPID, CMP, URIC, TSH #### [facility] [address] [place] [address] Dr. Karen Marie Sodium [Moles/Vol] 136 mmol/L Normal 136-145 [facility] Comment on above: Performed By: #### L IPID, CMP, URIC, TSH #### [facility] [address] [place] [address] Dr. Karen Marie Urea nitrogen [Mass/Vol] 13.0 mg/dL Normal 7.0-18.0 [facility] Comment on above: Performed By: #### L IPID, CMP, URIC, TSH #### [facility] [address] [place] [address] Dr. Karen Marie Urea nitrogen/Creatinine [Mass ratio] 8.6 mg/mg Normal [facility] Comment on above: Performed By: #### L IPID, CMP, URIC, TSH #### [facility] [address] [place] [address] Dr. Karen Marie TSHon 07-08-2022 TSH 2.103 uIU/mL Normal 0.358-3.740 [facility] Comment on above: Performed By: #### L IPID, CMP, URIC, TSH #### [facility] [address] [place] [address] Dr. Karen Marie URIC ACID SERUMon 07-08-2022 Urate [Mass/Vol] 9.4 mg/dL Critically high 3.5-7.2 [facility] Comment on above: Performed By: #### L IPID, CMP, URIC, TSH #### [facility] [address] [place] [address] Dr. Karen Marie CBC AUTO DIFFon 02-19-2022 BASO # 0.0 103/ul Normal 0.0-0.1 [facility] Comment on above: Performed By: #### C BC #### [facility] [address] [place] [address] Dr. Karen Marie Basophils/100 WBC (Bld) 0.4 % Normal 0.2-2.0 [facility] Comment on above: Performed By: #### C BC #### [facility] [address] [place] [address] Dr. Karen Marie EO # 0.2 103/ul Normal 0.0-0.7 [facility] Comment on above: Performed By: #### C BC #### [facility] [address] [place] [address] Dr. Karen Marie Eosinophils/100 WBC (Bld) 3.2 % Normal 0.9-7.0 [facility] Comment on above: Performed By: #### C BC #### [facility] [address] [place] [address] Dr. Karen Marie Erythrocyte distribution width (RBC) [Ratio] 13.7 % Normal 11.0-15.0 [facility] Comment on above: Performed By: #### C BC #### [facility] [address] [place] [address] Dr. Karen Marie Hematocrit (Bld) [Volume fraction] 43.2 % Normal 42.0-54.0 [facility] Comment on above: Performed By: #### C BC #### [facility] [address] [place] [address] Dr. Karen Marie Hemoglobin (Bld) [Mass/Vol] 13.8 g/dL Critically low 14.0-18.0 [facility] Comment on above: Performed By: #### C BC #### [facility] [address] [place] [address] Dr. Karen Marie IG # 0.03 10e3/ul Normal 0.00-0.03 [facility] Comment on above: Performed By: #### C BC #### [facility] [address] [place] [address] Dr. Karen Marie IG % 0.4 % Normal 0.0-0.5 [facility] Comment on above: Performed By: #### C BC #### [facility] [address] [place] [address] Dr. Karen Marie LYMPH # 1.6 103/ul Normal 1.2-3.8 [facility] Comment on above: Performed By: #### C BC #### [facility] [address] [place] [address] Dr. Karen Marie Lymphocytes/100 WBC (Bld) 23.7 % Normal 20.5-60.0 [facility] Comment on above: Performed By: #### C BC #### [facility] [address] [place] [address] Dr. Karen Marie MANUAL DIFF REQ NO Normal [facility] Comment on above: Performed By: #### C BC #### [facility] [address] [place] [address] Dr. Karen Marie MCH (RBC) [Entitic mass] 30.1 pg Normal 25.9-34.0 [facility] Comment on above: Performed By: #### C BC #### [facility] [address] [place] [address] Dr. Karen Marie MCHC (RBC) [Mass/Vol] 31.9 g/dL Normal 29.9-35.2 [facility] Comment on above: Performed By: #### C BC #### [facility] [address] [place] [address] Dr. Karen Marie MCV (RBC) [Entitic vol] 94.3 fL Critically high 80.0-94.0 [facility] Comment on above: Performed By: #### C BC #### [facility] [address] [place] [address] Dr. Karen Marie MONO # 0.8 103/ul Normal 0.3-0.8 [facility] Comment on above: Performed By: #### C BC #### [facility] [address] [place] [address] Dr. Karen Marie Monocytes/100 WBC (Bld) 11.7 % Normal 1.7-12.0 [facility] Comment on above: Performed By: #### C BC #### [facility] [address] [place] [address] Dr. Karen Marie NEUT # 4.1 103/ul Normal 1.4-6.5 [facility] Comment on above: Performed By: #### C BC #### [facility] [address] [place] [address] Dr. Karen Maire Neutrophils/100 WBC (Bld) 60.6 % Normal 43.0-75.0 [facility] Comment on above: Performed By: #### C BC #### [facility] [address] [address] [address] Karen Marie Platelet mean volume (Bld) [Entitic vol] 11.9 fL Normal 9.5-13.5 [facility] Comment on above: Performed By: #### C BC #### [facility] [address] [address] [address] Karen Marie PLT 129 103/ul Critically low 150-450 [facility] Comment on above: Performed By: #### C BC #### [facility] [address] [address] [address] Karen Marie RBC 4.58 106/ul Critically low 4.70-6.10 [facility] Comment on above: Performed By: #### C BC #### [facility] [facility] [address] [address] [address] Karen Marie WBC 6.8 103/ul Normal 4.0-11.0 [facility] Comment on above: Performed By: #### C BC #### [facility] [address] [address] [address] Karen Marie PROF CHEM 8 (BAS METB)on Anion gap [Moles/Vol] 11.7 mmol/L Normal [facility] Comment on above: Performed By: #### B MP #### [facility] [address] [place] [address] Dr. Karen Marie Calcium [Mass/Vol] 9.3 mg/dL Normal 8.5-10.1 [facility] Comment on above: Performed By: #### B MP #### [facility] [address] [place] [address] Dr. Karen Marie Chloride [Moles/Vol] 106 mmol/L Normal 98-107 [facility] Comment on above: Performed By: #### B MP #### [facility] [address] [address] [address] Karen Marie CO2 [Moles/Vol] 28.3 mmol/L Normal 21.0-32.0 [facility] Comment on above: Performed By: #### B MP #### [facility] [address] [address] [address] Karen Marie Creatinine [Mass/Vol] 1.49 mg/dL Critically high 0.70-1.30 [facility] Comment on above: Performed By: #### B MP #### [facility] [address] [address] [address] Karen Marie EGFR-AF SOUTH AFRICAN 56 mL/min/1.73m2 Critically low >=60 [facility] Comment on above: Performed By: #### B MP #### [facility] [address] [address] [address] Karen Marie EGFR-NON AF SOUTH AFRICAN 46 mL/min/1.73m2 Critically low >=60 [facility] Comment on above: Performed By: #### B MP #### [facility] [address] [address] [address] Karen Marie Glucose [Mass/Vol] 101 mg/dL Normal 74-106 [facility] Comment on above: Performed By: #### B MP #### [facility] [address] [address] [address] Karen Marie Potassium [Moles/Vol] 5.0 mmol/L Normal 3.5-5.1 [facility] Comment on above: Performed By: #### B MP #### [facility] [address] [address] [address] Karen Marie Sodium [Moles/Vol] 141 mmol/L Normal 136-145 [facility] Comment on above: Performed By: #### B MP #### [facility] [address] [address] [address] Karen Marie Urea nitrogen [Mass/Vol] 17.0 mg/dL Normal 7.0-18.0 [facility] Comment on above: Performed By: #### B MP #### [facility] [address] [address] [address] Karen Marie Urea nitrogen/Creatinine [Mass ratio] 11.4 mg/mg Normal [facility] Comment on above: Performed By: #### B MP #### [facility] [address] [address] [address] Karen Marie XR Foot Complete Left*on [...] by Wandy Lees on 10/17/2021 1252 Normal [facility] [employer] Progress Noteson 08-08-2021 Med Specialist Authentication Interface Message Text Called pt Dec 6 as scheduled-no ans Called pt Dec 7-no ans Normal [facility] Progress Noteson 06-04-2021 Med Specialist Authentication Interface Message Text Normal [facility] Progress Noteson 06-03-2021 Med Specialist Authentication Interface Message Text Patient at risk for falls:No Falls Risk protocol implemented: Yes wheelchair in locked position when not in use for transport Normal [facility] XR ANKLE LEFT 3 VIEWSon XR ANKLE LEFT 3 VIEWS Normal [facility] Anesthesia Attestationon Med Specialist Authentication Interface Message Text Normal [facility] Anesthesia Postprocedure Lucretia luationon 05-21-2021 Med Specialist Authentication Interface Message Text Normal [facility] Anesthesia Preprocedure Eval uationon 05-21-2021 Med Specialist Authentication Interface Message Text Normal [facility] Anesthesia Transfer Of Careo n 05-21-2021 Med Specialist Authentication Interface Message Text Normal [facility] H AND Martin 05-21-2021 Med Specialist Authentication Interface Message Text Normal [facility] OP Noteon 05-21-2021 Med Specialist Authentication Interface Message Text Normal [facility] Procedureson 05-21-2021 Med Specialist Authentication Interface Message Text Preop dx: L ankle fx Postop dx: same Proc; Removal pins L ankle () Removal LLE ex fix () Comp:none Plan NWB LLE, rest, elevation RTC Oct 4 Normal [facility] Progress Noteson 04-29-2021 Med Specialist Authentication Interface Message Text Patient was identified by name and date of . Mayra Trujillo Applied short leg cast and discussed cast care with patient. Normal [facility] Med Specialist Authentication Interface Message Text Patient was identified by name and date of . Amy Gonzalez RN Patient at risk for falls:yes Falls Risk protocol implemented: Yes wheelchair in locked position when not in use for transport Normal [facility] Med Specialist Authentication Interface Message Text Normal [facility] XR ANKLE LEFT 3 VIEWSon 04-02 XR ANKLE LEFT 3 VIEWS Normal [facility] Complete Blood Count Auto Di ffon 04-18-2021 Basophils (Bld) [#/Vol] 0.0 10*3/uL Normal 0.0-0.2 [facility] Comment on above: Order Comment: PLEAS E FAX TO Result Comment: PERF ORMED BY: [place] [address] PATHOLOGIST WOOD GRINDER OPERATOR DAKOTAH SMITH M.D. Performed By: #### C MP, CBC #### [address] Basophils/100 WBC (Bld) 0.5 % Normal . [facility] Comment on above: Order Comment: PLEAS E FAX TO Performed By: #### C MP, CBC #### [facility] [address] [place] [address] [place] Eosinophils (Bld) [#/Vol] 0.2 10*3/uL Normal 0.0-0.45 [facility] Comment on above: Order Comment: PLEAS E FAX TO Performed By: #### C MP, CBC #### [place] [address] [place] Eosinophils/100 WBC (Bld) 3.4 % Normal . [facility] Comment on above: Order Comment: PLEAS E FAX TO Performed By: #### C MP, CBC #### [address] Erythrocyte distribution width (RBC) [Ratio] 15.5 % High 12.0-14.8 [facility] Comment on above: Order Comment: PLEAS E FAX TO Performed By: #### C MP, CBC #### [address] Hematocrit (Bld) [Volume fraction] 36.7 % Low 38.8-50.0 [facility] Comment on above: Order Comment: PLEAS E FAX TO Performed By: #### C MP, CBC #### [address] Hemoglobin (Bld) [Mass/Vol] 12.0 g/dL Low 13.0-17.0 [facility] Comment on above: Order Comment: PLEAS E FAX TO Performed By: #### C MP, CBC #### [address] Lymphocytes (Bld) [#/Vol] 1.8 10*3/uL Normal 1.00-4.8 [facility] Comment on above: Order Comment: PLEAS E FAX TO Performed By: #### C MP, CBC #### [address] Lymphocytes/100 WBC (Bld) 35.6 % Normal . [facility] Comment on above: Order Comment: PLEAS E FAX TO Performed By: #### C MP, CBC #### [address] MCH (RBC) [Entitic mass] 30.5 pg Normal 27.5-35.2 [facility] Comment on above: Order Comment: PLEAS E FAX TO Performed By: #### C MP, CBC #### [address] [place] [address] [place] MCV (RBC) [Entitic vol] 93.1 fL Normal 83.5-101 [facility] Comment on above: Order Comment: PLEAS E FAX TO Performed By: #### C MP, CBC #### [facility] [address] Mean Corpuscular HGB Conc 32.7 g/dL Normal 32.5-35.6 [facility] Comment on above: Order Comment: PLEAS E FAX TO Performed By: #### C MP, CBC #### [place] [address] [place] Monocytes (Bld) [#/Vol] 0.7 10*3/uL Normal 0.0-0.8 [facility] Comment on above: Order Comment: PLEAS E FAX TO Performed By: #### C MP, CBC #### [place] [address] [place] Monocytes/100 WBC (Bld) 14.1 % Normal . [facility] Comment on above: Order Comment: PLEAS E FAX TO Performed By: #### C MP, CBC #### [place] [address] [place] Neutrophils (Bld) [#/Vol] 2.3 10*3/uL Normal 1.8-7.7 [facility] Comment on above: Order Comment: PLEAS E FAX TO Performed By: #### C MP, CBC #### [place] [address] [place] Neutrophils/100 WBC (Bld) 46.4 % Normal . [facility] Comment on above: Order Comment: PLEAS E FAX TO Performed By: #### C MP, CBC #### [place] [address] [place] Nucleated RBC/100 WBC (Bld) [Ratio] 0.2 % Normal 0-0.5 [facility] Comment on above: Order Comment: PLEAS E FAX TO Performed By: #### C MP, CBC #### [facility] [address] Platelet mean volume (Bld) [Entitic vol] 10.0 fL Normal 6.6-10.1 [facility] Comment on above: Order Comment: PLEAS E FAX TO Performed By: #### C MP, CBC #### [facility] [address] Platelets (Bld) [#/Vol] 137 10*3/uL Low 150-450 [facility] Comment on above: Order Comment: PLEAS E FAX TO Performed By: #### C MP, CBC #### [facility] [address] RBC (Bld) [#/Vol] 3.95 10*6/uL Normal 3.90-5.60 [facility] Comment on above: Order Comment: PLEAS E FAX TO Performed By: #### C MP, CBC #### [address] WBC (Bld) [#/Vol] 5.0 10*3/uL Normal 4.5-11.0 [facility] Comment on above: Order Comment: PLEAS E FAX TO Performed By: #### C MP, CBC #### [address] Comprehensive Metabolic Pane navin 04-18-2021 Albumin [Mass/Vol] 2.9 g/dL Low 3.2-5.5 [facility] Comment on above: Order Comment: PLEAS E FAX TO Performed By: #### C MP, CBC #### [facility] [address] Albumin/Globulin [Mass ratio] 1.2 {ratio} Normal [facility] Comment on above: Order Comment: PLEAS E FAX TO Performed By: #### C MP, CBC #### [facility] [address] [place] [address] ALP [Catalytic activity/Vol] 50 U/L Normal 32-92 [facility] Comment on above: Order Comment: PLEAS E FAX TO Result Comment: PERF ORMED BY: [place] [address] PATHOLOGIST WOOD GRINDER OPERATOR DAKOTAH SMITH M.D. Performed By: #### C MP, CBC #### [facility] [address] [place] [address] ALT [Catalytic activity/Vol] 12 U/L Normal 10-60 [facility] Comment on above: Order Comment: PLEAS E FAX TO Performed By: #### C MP, CBC #### [facility] [address] [place] [address] AST [Catalytic activity/Vol] 14 U/L Normal 10-42 [facility] Comment on above: Order Comment: PLEAS E FAX TO Performed By: #### C MP, CBC #### [facility] [address] [place] [address] [place] Bilirubin [Mass/Vol] 0.3 mg/dL Normal 0.3-1.2 [facility] Comment on above: Order Comment: PLEAS E FAX TO Performed By: #### C MP, CBC #### [facility] [address] [place] [address] [place] Calcium [Mass/Vol] 8.8 mg/dL Normal 8.2-10.2 [facility] Comment on above: Order Comment: PLEAS E FAX TO Performed By: #### C MP, CBC #### [facility] [address] [place] [address] [place] Chloride [Moles/Vol] 105 mmol/L Normal 95-114 [facility] Comment on above: Order Comment: PLEAS E FAX TO Performed By: #### C MP, CBC #### [facility] [address] [id number] [facility] CO2 [Moles/Vol] 24.5 mmol/L Normal 22.0-30.0 [facility] Comment on above: Order Comment: PLEAS E FAX TO Performed By: #### C MP, CBC #### [facility] [address] Creatinine [Mass/Vol] 1.13 mg/dL Normal 0.64-1.27 [facility] Comment on above: Order Comment: PLEAS E FAX TO Performed By: #### C MP, CBC #### [facility] [address] [place] [address] Estimated GFR ( Mary Jo > 60 [facility] Comment on above: Order Comment: PLEAS E FAX TO Result Comment: GFR estimated reference range: According to KDOQI guidelines, <60 ml/min/1.73m2 is sufficient to diagnose a patient with chronic kidney disease. Performed By: #### C MP, CBC #### [facility] [address] [id number] [facility] Estimated GFR (Non- Am > 60 [facility] Comment on above: Order Comment: PLEAS E FAX TO Performed By: #### C MP, CBC #### [facility] [address] [id number] [place] Globulin (S) [Mass/Vol] 2.5 g/dL [facility] Comment on above: Order Comment: PLEAS E FAX TO Performed By: #### C MP, CBC #### [facility] [address] [phone] [place] Glucose [Mass/Vol] 108 mg/dL High 70-100 [facility] Comment on above: Order Comment: PLEAS E FAX TO Result Comment: [place] Glucose Reference Range is dependent on time and content of last meal. Glucose of more than 200 mg/dL in a nonstressed, ambulatory subject supports the diagnosis of Diabetes Mellitus. ADA recommended reference range Performed By: #### C MP, CBC #### [facility] [address] Potassium [Moles/Vol] 3.8 mmol/L Normal 3.5-5.1 [facility] Comment on above: Order Comment: PLEAS E FAX TO Performed By: #### C MP, CBC #### [address] Protein [Mass/Vol] 5.4 g/dL Low 6.1-7.9 [facility] Comment on above: Order Comment: PLEAS E FAX TO Performed By: #### C MP, CBC #### [address] Sodium [Moles/Vol] 138 mmol/L Normal 136-146 [facility] Comment on above: Order Comment: PLEAS E FAX TO Performed By: #### C MP, CBC #### [address] [id number] [facility] Urea nitrogen [Mass/Vol] 16 mg/dL Normal 9-23 [facility] Comment on above: Order Comment: PLEAS E FAX TO Performed By: #### C MP, CBC #### [facility] [address] [place] [address] Progress Noteson 04-02-2021 Med Specialist Authentication Interface Message Text Normal [facility] Progress Noteson 04-01-2021 Med Specialist Authentication Interface Message Text Patient was identified by name and date of . Lennice Hampton Short leg cast applied. Pins care and extra gauze applied. Care and instructions provided. Normal [facility] Med Specialist Authentication Interface Message Text Patient at risk for falls:Yes Falls Risk protocol implemented: Yes wheelchair in locked position when not in use for transport Normal [facility] Patient Instructionson 03-18 Med Specialist Authentication Interface Message Text Normal [facility] Progress Noteson 03-18-2021 Med Specialist Authentication Interface Message Text Normal [facility] Med Specialist Authentication Interface Message Text Patient was identified by name and date of . Rehab Zoqash .Patient at risk for falls:No Falls Risk protocol implemented: No Normal [facility] Progress Noteson 03-12-2021 Med Specialist Authentication Interface Message Text Normal [facility] Progress Noteson 03-11-2021 Med Specialist Authentication Interface Message Text Patient was identified by name and date of . Lennice Hampton Suture removal. Short leg cast applied to LLE over fixator pins. Care and instructions provided. Normal [facility] Telephone Encounteron 2020 Med Specialist Authentication Interface Message Text Normal [facility] BASIC METABOLIC PANELon 07- Anion gap [Moles/Vol] 13 mmol/L Normal 5-13 [facility] Comment on above: Performed By: #### C H8 ####[facility] [id number] [place], [place], Calcium [Mass/Vol] 8.9 mg/dL Normal 8.4-10.4 [facility] Comment on above: Performed By: #### C H8 ####[facility] [id number] [place], [place], Chloride [Moles/Vol] 104 mmol/L Normal 97-111 [facility] Comment on above: Performed By: #### C H8 ####S PATHOLOGY [id number] [place], CO2 [Moles/Vol] 25 mmol/L Normal 21-30 [facility] Comment on above: Performed By: #### C H8 ####S PATHOLOGY [id number] [place], Creatinine [Mass/Vol] 0.99 mg/dL Normal 0.80-1.30 [facility] Comment on above: Performed By: #### C H8 ####S PATHOLOGY [id number] [place] [address], [place], ESTIMATED GFR (CKD-EPI) 75 mL/min/1.73sqm Normal >=60 [facility] Comment on above: Performed By: #### C H8 ####S PATHOLOGY [id number] [place], Glucose [Mass/Vol] 101 mg/dL Normal 80-116 [facility] Comment on above: Performed By: #### C H8 ####S PATHOLOGY [id number] [place], Potassium [Moles/Vol] 4.1 mmol/L Normal 3.3-5.3 [facility] Comment on above: Performed By: #### C H8 ####S PATHOLOGY [id number] [place], Sodium [Moles/Vol] 138 mmol/L Normal 135-148 [facility] Comment on above: Performed By: #### C H8 ####S PATHOLOGY [id number] [place], Urea nitrogen [Mass/Vol] 19 mg/dL Normal 8-22 [facility] Comment on above: Performed By: #### C H8 ####S PATHOLOGY [id number] [place], [place], Care Plan Noteon 02-28-2021 Med Specialist Authentication Interface Message Text Normal [facility] DIGOXINon 02-28-2021 DIG 0.78 ng/mL Low 0.80-2.00 [facility] Comment on above: Performed By: #### D IG ####S PATHOLOGY [id number] [place] [address], Discharge Planning Noteon Med Specialist Authentication Interface Message Text Normal [facility] Progress Noteson 02-28-2021 Med Specialist Authentication Interface Message Text Report called to next facility to [facility]. Phone number provided to outside facility for any further questions. Reporting off to next shift. Normal [facility] Med Specialist Authentication Interface Message Text Normal [facility] BASIC METABOLIC PANELon 06-3 Anion gap [Moles/Vol] 13 mmol/L Normal 5-13 [facility] Comment on above: Performed By: #### C H8, MG ####[facility] [id number] [place], Calcium [Mass/Vol] 8.8 mg/dL Normal 8.4-10.4 [facility] Comment on above: Performed By: #### C H8, MG ####[facility] [id number] [place], Chloride [Moles/Vol] 104 mmol/L Normal 97-111 [facility] Comment on above: Performed By: #### C H8, MG ####[facility] [id number] [place], CO2 [Moles/Vol] 25 mmol/L Normal 21-30 [facility] Comment on above: Performed By: #### C H8, MG ####[facility] [id number] [place], Creatinine [Mass/Vol] 1.00 mg/dL Normal 0.80-1.30 [facility] Comment on above: Performed By: #### C H8, MG ####[facility] [id number] [place], ESTIMATED GFR (CKD-EPI) 74 mL/min/1.73sqm Normal >=60 [facility] Comment on above: Performed By: #### C H8, MG ####[facility] [id number] [place], Glucose [Mass/Vol] 108 mg/dL Normal 80-116 [facility] Comment on above: Performed By: #### C H8, MG ####[facility] [id number] [place], Potassium [Moles/Vol] 4.3 mmol/L Normal 3.3-5.3 [facility] Comment on above: Performed By: #### C H8, MG ####[facility] [id number] [place], Sodium [Moles/Vol] 138 mmol/L Normal 135-148 [facility] Comment on above: Performed By: #### C H8, MG ####S PATHOLOGY [id number] [place], Urea nitrogen [Mass/Vol] 20 mg/dL Normal 8-22 [facility] Comment on above: Performed By: #### C H8, MG ####[facility] [id number] [place], COMPLETE BLOOD COUNTon 02-27 Erythrocyte distribution width (RBC) [Ratio] 15.1 % High 11.5-14.5 [facility] Comment on above: Performed By: #### C BC ####[facility] [id number] [place], Hematocrit (Bld) [Volume fraction] 30.9 % Low 41.0-53.0 [facility] Comment on above: Performed By: #### C BC ####[facility] [id number] [place], Hemoglobin (Bld) [Mass/Vol] 10.3 g/dL Low 13.9-16.3 [facility] Comment on above: Performed By: #### C BC ####[facility] [id number] [place], MCH (RBC) [Entitic mass] 31.8 pg Normal 26.0-34.0 [facility] Comment on above: Performed By: #### C BC ####S PATHOLOGY [id number] [place], MCHC (RBC) [Mass/Vol] 33.3 g/dL Normal 32.0-35.9 [facility] Comment on above: Performed By: #### C BC ####S PATHOLOGY [id number] [place], MCV (RBC) [Entitic vol] 95 fL Normal 80-100 [facility] Comment on above: Performed By: #### C BC ####S PATHOLOGY [id number] [place], Platelet mean volume (Bld) [Entitic vol] 10.2 fL Normal 7.5-11.2 [facility] Comment on above: Performed By: #### C BC ####S PATHOLOGY [id number] [place], Platelets (Bld) [#/Vol] 209 10*3/uL Normal 150-400 [facility] Comment on above: Performed By: #### C BC ####S PATHOLOGY [id number] [place], RBC (Bld) [#/Vol] 3.24 10*6/uL Low 4.50-5.90 [facility] Comment on above: Performed By: #### C BC ####S PATHOLOGY [id number] [place], WBC (Bld) [#/Vol] 5.2 10*3/uL Normal 4.5-11.5 [facility] Comment on above: Performed By: #### C BC ####[facility] [id number] [place], Care Plan Noteon 02-27-2021 Med Specialist Authentication Interface Message Text Normal [facility] Consultson 02-27-2021 Med Specialist Authentication Interface Message Text Normal [facility] Med Specialist Authentication Interface Message Text Normal [facility] MAGNESIUMon 02-27-2021 Magnesium [Mass/Vol] 2.3 mg/dL Normal 1.6-2.8 [facility] Comment on above: Performed By: #### C H8, MG ####[facility] [id number] [place], Progress Noteson 02-27-2021 Med Specialist Authentication Interface Message Text Normal [facility] Med Specialist Authentication Interface Message Text Normal [facility] Med Specialist Authentication Interface Message Text Normal [facility] BASIC METABOLIC PANELon 01-30 Anion gap [Moles/Vol] 14 mmol/L High 5-13 [facility] Comment on above: Performed By: #### M G, CH8 ####S PATHOLOGY [id number] [place], Calcium [Mass/Vol] 9.0 mg/dL Normal 8.4-10.4 [facility] Comment on above: Performed By: #### Rajiv Roque, CH8 ####S PATHOLOGY [id number] [place], Chloride [Moles/Vol] 103 mmol/L Normal 97-111 [facility] Comment on above: Performed By: #### Rajiv Roque, CH8 ####S PATHOLOGY [id number] [place], CO2 [Moles/Vol] 24 mmol/L Normal 21-30 [facility] Comment on above: Performed By: #### Rajiv Roque, CH8 ####S PATHOLOGY [id number] [place], Creatinine [Mass/Vol] 1.00 mg/dL Normal 0.80-1.30 [facility] Comment on above: Performed By: #### Rajiv Roque, CH8 ####[facility] PATH[facility] [id number] [place], ESTIMATED GFR (CKD-EPI) 74 mL/min/1.73sqm Normal >=60 [facility] Comment on above: Performed By: #### Rajiv Roque, CH8 ####[facility] PATHOLOG[facility] [id number] [place], Glucose [Mass/Vol] 103 mg/dL Normal 80-116 [facility] Comment on above: Performed By: #### Rajiv Roque, CH8 ####S PATHOLOGY [id number] [place], Potassium [Moles/Vol] 4.3 mmol/L Normal 3.3-5.3 [facility] Comment on above: Performed By: #### Rajiv Roque, CH8 ####S PATHOLOGY [id number] [place], [place], Sodium [Moles/Vol] 137 mmol/L Normal 135-148 [facility] Comment on above: Performed By: #### Rajiv Roque, CH8 ####S PATHOLOGY [id number] [place], Urea nitrogen [Mass/Vol] 17 mg/dL Normal 8-22 [facility] Comment on above: Performed By: #### M G, CH8 ####[facility] PATHOLOGY [id number] [place], COMPLETE BLOOD COUNTon 02-26 Erythrocyte distribution width (RBC) [Ratio] 14.6 % High 11.5-14.5 [facility] Comment on above: Performed By: #### C BC ####[facility] PATHOLOGY [id number] [place], Hematocrit (Bld) [Volume fraction] 30.7 % Low 41.0-53.0 [facility] Comment on above: Performed By: #### C BC ####[facility] PATHOLOGY [id number] [place], Hemoglobin (Bld) [Mass/Vol] 10.5 g/dL Low 13.9-16.3 [facility] Comment on above: Performed By: #### C BC ####[facility] PATHOLOGY [id number] [place], MCH (RBC) [Entitic mass] 31.7 pg Normal 26.0-34.0 [facility] Comment on above: Performed By: #### C BC ####[facility] PATHOLOGY [id number] [place], MCHC (RBC) [Mass/Vol] 34.1 g/dL Normal 32.0-35.9 [facility] Comment on above: Performed By: #### C BC ####[facility] PATHOLOGY [id number] [place], MCV (RBC) [Entitic vol] 93 fL Normal 80-100 [facility] Comment on above: Performed By: #### C BC ####[facility] PATHOLOGY [id number] [place], Platelet mean volume (Bld) [Entitic vol] 10.3 fL Normal 7.5-11.2 [facility] Comment on above: Performed By: #### C BC ####[facility] PATHOLOGY [id number] [place], Platelets (Bld) [#/Vol] 205 10*3/uL Normal 150-400 [facility] Comment on above: Performed By: #### C BC ####[facility] [id number] [place], RBC (Bld) [#/Vol] 3.30 10*6/uL Low 4.50-5.90 [facility] Comment on above: Performed By: #### C BC ####[facility] [id number] [place], WBC (Bld) [#/Vol] 5.3 10*3/uL Normal 4.5-11.5 [facility] Comment on above: Performed By: #### C BC ####S PATHOLOGY [id number] [place], Care Plan Noteon 02-26-2021 Med Specialist Authentication Interface Message Text Normal [facility] Consultson 02-26-2021 Med Specialist Authentication Interface Message Text Normal [facility] Specialist Authentication Interface Message Text Normal [facility] MAGNESIUMon 02-26-2021 Magnesium [Mass/Vol] 2.2 mg/dL Normal 1.6-2.8 [facility] Comment on above: Performed By: #### JENNIFER Blum ####S PATHOLOGY [id number] [place], Progress Noteson 02-26-2021 Med Specialist Authentication Interface Message Text Normal [facility] Med Specialist Authentication Interface Message Text Normal [facility] Med Specialist Authentication Interface Message Text Normal [facility] Specialist Authentication Interface Message Text Normal [facility] BASIC METABOLIC PANELon - Anion gap [Moles/Vol] 15 mmol/L High 5-13 [facility] Comment on above: Performed By: #### JENNIFER Blum ####[facility] [id number] [place], Calcium [Mass/Vol] 9.7 mg/dL Normal 8.4-10.4 [facility] Comment on above: Performed By: #### JENNIFER Blum ####[facility] [id number] [place], Chloride [Moles/Vol] 112 mmol/L High 97-111 [facility] Comment on above: Performed By: #### Rajiv Roque, ALESHA8 ####S PATHOLOGY [id number] [place], CO2 [Moles/Vol] 27 mmol/L Normal 21-30 [facility] Comment on above: Performed By: #### Rajiv Roque, ALESHA8 ####S PATHOLOGY [id number] [place], Creatinine [Mass/Vol] 0.96 mg/dL Normal 0.80-1.30 [facility] Comment on above: Performed By: #### Rajiv Roque, ALESHA8 ####[facility] PATHOLOGY [id number] [place], ESTIMATED GFR (CKD-EPI) 78 mL/min/1.73sqm Normal >=60 [facility] Comment on above: Performed By: #### Rajiv Roque, ALESHA8 ####[facility] PATHOLOGY [id number] [place], Glucose [Mass/Vol] 113 mg/dL Normal 80-116 [facility] Comment on above: Performed By: #### Rajiv Roque, ALESHA8 ####[facility] PATHOLOGY [id number] [place] [address], Potassium [Moles/Vol] 4.9 mmol/L Normal 3.3-5.3 [facility] Comment on above: Performed By: #### Rajiv Roque, ALESHA8 ####S PATHOLOGY [id number] [place], Sodium [Moles/Vol] 149 mmol/L High 135-148 [facility] Comment on above: Performed By: #### Rajiv Roque, CH8 ####S PATHOLOGY [id number] [place], Urea nitrogen [Mass/Vol] 16 mg/dL Normal 8-22 [facility] Comment on above: Performed By: #### Rajiv Roque, ALESHA8 ####S PATHOLOGY [id number] [place], COMPLETE BLOOD COUNTon 02-25 Erythrocyte distribution width (RBC) [Ratio] 14.5 % Normal 11.5-14.5 [facility] Comment on above: Performed By: #### C BC ####[facility] PATHOLOGY [id number] [place], Hematocrit (Bld) [Volume fraction] 29.6 % Low 41.0-53.0 [facility] Comment on above: Performed By: #### C BC ####[facility] PATHOLOGY [id number] [place] [address], Hemoglobin (Bld) [Mass/Vol] 9.9 g/dL Low 13.9-16.3 [facility] Comment on above: Performed By: #### C BC ####[facility] PATHOLOGY [id number] [place] [address], MCH (RBC) [Entitic mass] 31.2 pg Normal 26.0-34.0 [facility] Comment on above: Performed By: #### C BC ####[facility] PATHOLOGY [id number] [place] [address], MCHC (RBC) [Mass/Vol] 33.6 g/dL Normal 32.0-35.9 [facility] Comment on above: Performed By: #### C BC ####[facility] PATHOLOGY [id number] [place] [address], MCV (RBC) [Entitic vol] 93 fL Normal 80-100 [facility] Comment on above: Performed By: #### C BC ####[facility] PATHOLOGY [id number] [place] [address], Platelet mean volume (Bld) [Entitic vol] 9.8 fL Normal 7.5-11.2 [facility] Comment on above: Performed By: #### C BC ####[facility] PATHOLOGY [id number] [place] [address], Platelets (Bld) [#/Vol] 207 10*3/uL Normal 150-400 [facility] Comment on above: Performed By: #### C BC ####[facility] PATHOLOGY [id number] [place] [address], RBC (Bld) [#/Vol] 3.19 10*6/uL Low 4.50-5.90 [facility] Comment on above: Performed By: #### C BC ####[facility] [id number] [place], WBC (Bld) [#/Vol] 5.6 10*3/uL Normal 4.5-11.5 [facility] Comment on above: Performed By: #### C BC ####[facility] [id number] [place], Care Plan Noteon 02-25-2021 Med Specialist Authentication Interface Message Text Normal [facility] Consultson 02-25-2021 Med Specialist Authentication Interface Message Text Normal [facility] Med Specialist Authentication Interface Message Text Normal [facility] MAGNESIUMon 02-25-2021 Magnesium [Mass/Vol] 2.1 mg/dL Normal 1.6-2.8 [facility] Comment on above: Performed By: #### Rajiv Roque CH8 ####[facility] PATHOLOGY [id number] [place], Nursing Noteon 02-25-2021 Med Specialist Authentication Interface Message Text Normal [facility] Progress Noteson 02-25-2021 Med Specialist Authentication Interface Message Text Normal [facility] Med Specialist Authentication Interface Message Text Normal [facility] BASIC METABOLIC PANELon 01-30 Anion gap [Moles/Vol] 14 mmol/L High 5-13 [facility] Comment on above: Performed By: #### Austyn H8, MG ####[facility] [id number] [place], Calcium [Mass/Vol] 9.0 mg/dL Normal 8.4-10.4 [facility] Comment on above: Performed By: #### Austyn H8, MG ####[facility] [id number] [place], Chloride [Moles/Vol] 102 mmol/L Normal 97-111 [facility] Comment on above: Performed By: #### Austyn H8, MG ####[facility] [id number] [place], CO2 [Moles/Vol] 23 mmol/L Normal 21-30 [facility] Comment on above: Performed By: #### Austyn Tamez, MG ####S PATHOLOGY [id number] [place], Creatinine [Mass/Vol] 0.94 mg/dL Normal 0.80-1.30 [facility] Comment on above: Performed By: #### Austyn Tamez, MG ####S PATHOLOGY [id number] [place], ESTIMATED GFR (CKD-EPI) 80 mL/min/1.73sqm Normal >=60 [facility] Comment on above: Performed By: #### Austyn Tamez, MG ####S PATHOLOGY [id number] [place] [address], Glucose [Mass/Vol] 108 mg/dL Normal 80-116 [facility] Comment on above: Performed By: #### Austyn Tamez, MG ####S PATHOLOGY [id number] [place], Potassium [Moles/Vol] 4.3 mmol/L Normal 3.3-5.3 [facility] Comment on above: Performed By: #### Austyn Tamez, MG ####S PATHOLOGY [id number] [place] [address], Sodium [Moles/Vol] 135 mmol/L Normal 135-148 [facility] Comment on above: Performed By: #### Austyn Tamez, MG ####S PATHOLOGY [id number] [place], Urea nitrogen [Mass/Vol] 15 mg/dL Normal 8-22 [facility] Comment on above: Performed By: #### Austyn Saleh8, MG ####[facility] [id number] [place], COMPLETE BLOOD COUNTon 02-24 Erythrocyte distribution width (RBC) [Ratio] 14.9 % High 11.5-14.5 [facility] Comment on above: Performed By: #### Austyn BC ####[facility] [id number] [place] [address], Hematocrit (Bld) [Volume fraction] 28.2 % Low 41.0-53.0 [facility] Comment on above: Performed By: #### C BC ####[facility] PATHOLOGY [id number] [place], Hemoglobin (Bld) [Mass/Vol] 9.8 g/dL Low 13.9-16.3 [facility] Comment on above: Performed By: #### C BC ####[facility] PATHOLOGY [id number] [place] [address], MCH (RBC) [Entitic mass] 33.0 pg Normal 26.0-34.0 [facility] Comment on above: Performed By: #### C BC ####[facility] PATHOLOGY [id number] [place] [address], MCHC (RBC) [Mass/Vol] 34.7 g/dL Normal 32.0-35.9 [facility] Comment on above: Performed By: #### C BC ####[facility] PATHOLOGY [id number] [place] [address], MCV (RBC) [Entitic vol] 95 fL Normal 80-100 [facility] Comment on above: Performed By: #### C BC ####[facility] PATHOLOGY [id number] [place], Platelet mean volume (Bld) [Entitic vol] 10.1 fL Normal 7.5-11.2 [facility] Comment on above: Performed By: #### C BC ####[facility] PATHOLOGY [id number] [place], Platelets (Bld) [#/Vol] 206 10*3/uL Normal 150-400 [facility] Comment on above: Performed By: #### C BC ####[facility] PATHOLOGY [id number] [place], RBC (Bld) [#/Vol] 2.96 10*6/uL Low 4.50-5.90 [facility] Comment on above: Performed By: #### C BC ####[facility] PATHOLOGY [id number] [place], WBC (Bld) [#/Vol] 5.8 10*3/uL Normal 4.5-11.5 [facility] Comment on above: Performed By: #### Austyn BC ####S PATHOLOGY [id number] [place], Care Plan Noteon 02-24-2021 Med Specialist Authentication Interface Message Text Normal [facility] MAGNESIUMon 02-24-2021 Magnesium [Mass/Vol] 1.9 mg/dL Normal 1.6-2.8 [facility] Comment on above: Performed By: #### C H8, MG ####S PATHOLOGY [id number] [place], Progress Noteson 02-24-2021 Med Specialist Authentication Interface Message Text Normal [facility] BASIC METABOLIC PANELon 01-30 Anion gap [Moles/Vol] 15 mmol/L High 5-13 [facility] Comment on above: Performed By: #### Rajiv Roque, ALESHA8 ####S PATHOLOGY [id number] [place], Calcium [Mass/Vol] 8.9 mg/dL Normal 8.4-10.4 [facility] Comment on above: Performed By: #### Rajiv Roque, CH8 ####S PATHOLOGY [id number] [place], Chloride [Moles/Vol] 105 mmol/L Normal 97-111 [facility] Comment on above: Performed By: #### Rajiv Roque, CH8 ####S PATHOLOGY [id number] [place], CO2 [Moles/Vol] 22 mmol/L Normal 21-30 [facility] Comment on above: Performed By: #### Rajiv Roque, CH8 ####S PATHOLOGY [id number] [place], Creatinine [Mass/Vol] 0.87 mg/dL Normal 0.80-1.30 [facility] Comment on above: Performed By: #### Rajiv Roque, ALESHA8 ####S PATHOLOGY [id number] [place], ESTIMATED GFR (CKD-EPI) 85 mL/min/1.73sqm Normal >=60 [facility] Comment on above: Performed By: #### Rajiv Roque, ALESHA8 ####S PATHOLOGY [id number] [place], Glucose [Mass/Vol] 103 mg/dL Normal 80-116 [facility] Comment on above: Performed By: #### Rajiv Roque, ALESHA8 ####S PATHOLOGY [id number] [place] [address], Potassium [Moles/Vol] 4.6 mmol/L Normal 3.3-5.3 [facility] Comment on above: Performed By: #### Rajiv Roque, ALESHA8 ####[facility] PATHOLOGY [id number] [place] [address], Sodium [Moles/Vol] 137 mmol/L Normal 135-148 [facility] Comment on above: Performed By: #### Rajiv Roque, ALESHA8 ####[facility] PATHOLOGY [id number] [place] [address], Urea nitrogen [Mass/Vol] 20 mg/dL Normal 8-22 [facility] Comment on above: Performed By: #### Rajiv Roque, ALESHA8 ####[facility] PATHOLOGY [id number] [place] [address], COMPLETE BLOOD COUNTon 02-23 Erythrocyte distribution width (RBC) [Ratio] 15.1 % High 11.5-14.5 [facility] Comment on above: Performed By: #### C BC ####S PATHOLOGY [id number] [place], Hematocrit (Bld) [Volume fraction] 29.0 % Low 41.0-53.0 [facility] Comment on above: Performed By: #### C BC ####S PATHOLOGY [id number] [place] [address], Hemoglobin (Bld) [Mass/Vol] 9.6 g/dL Low 13.9-16.3 [facility] Comment on above: Performed By: #### C BC ####[facility] [id number] [place], MCH (RBC) [Entitic mass] 31.6 pg Normal 26.0-34.0 [facility] Comment on above: Performed By: #### C BC ####[facility] PATHOLOGY [id number] [place], MCHC (RBC) [Mass/Vol] 33.1 g/dL Normal 32.0-35.9 [facility] Comment on above: Performed By: #### C BC ####[facility] PATHOLOGY [id number] [place], MCV (RBC) [Entitic vol] 95 fL Normal 80-100 [facility] Comment on above: Performed By: #### C BC ####[facility] PATHOLOG[facility] [id number] [place], Platelet mean volume (Bld) [Entitic vol] 10.4 fL Normal 7.5-11.2 [facility] Comment on above: Performed By: #### C BC ####[facility] PATHOLOGY [id number] [place] [address], Platelets (Bld) [#/Vol] 212 10*3/uL Normal 150-400 [facility] Comment on above: Performed By: #### C BC ####[facility] PATHOLOG[facility] [id number] [place], RBC (Bld) [#/Vol] 3.04 10*6/uL Low 4.50-5.90 [facility] Comment on above: Performed By: #### C BC ####[facility] PATHOLOGY [id number] [place], WBC (Bld) [#/Vol] 6.8 10*3/uL Normal 4.5-11.5 [facility] Comment on above: Performed By: #### C BC ####[facility] PATHOLOG[facility] [id number] [place], Care Plan Noteon 02-23-2021 Med Specialist Authentication Interface Message Text Normal [facility] MAGNESIUMon 02-23-2021 Magnesium [Mass/Vol] 2.0 mg/dL Normal 1.6-2.8 [facility] Comment on above: Performed By: ###Sabrina Roque, CH8 ####[facility] PATHOLOG[facility] [id number] [place], Progress Noteson 02-23-2021 Med Specialist Authentication Interface Message Text Normal [facility] BASIC METABOLIC PANELon 01-30 Anion gap [Moles/Vol] 13 mmol/L Normal -13 [facility] Comment on above: Performed By: #### Austyn Tamez, MG ####S PATHOLOGY [id number] [place], Calcium [Mass/Vol] 8.7 mg/dL Normal 8.4-10.4 [facility] Comment on above: Performed By: #### Austyn Tamez, MG ####[facility] PATHOLOG[facility] [id number] [place] [address], Chloride [Moles/Vol] 106 mmol/L Normal 97-111 [facility] Comment on above: Performed By: #### Austyn Tamez, MG ####S PATHOLOGY [id number] [place], CO2 [Moles/Vol] 22 mmol/L Normal 21-30 [facility] Comment on above: Performed By: #### Austyn Tamez, MG ####S PATHOLOGY [id number] [place], Creatinine [Mass/Vol] 0.90 mg/dL Normal 0.80-1.30 [facility] Comment on above: Performed By: #### Austyn Tamez, MG ####S PATHOLOGY [id number] [place], ESTIMATED GFR (CKD-EPI) 84 mL/min/1.73sqm Normal >=60 [facility] Comment on above: Performed By: #### Austyn Tamez, MG ####S PATHOLOGY [id number] [place], Glucose [Mass/Vol] 97 mg/dL Normal 80-116 [facility] Comment on above: Performed By: #### Austyn Tamez, MG ####S PATHOLOGY [id number] [place], Potassium [Moles/Vol] 4.2 mmol/L Normal 3.3-5.3 [facility] Comment on above: Performed By: #### C H8, MG ####S PATHOLOGY [id number] [place], Sodium [Moles/Vol] 137 mmol/L Normal 135-148 [facility] Comment on above: Performed By: #### C H8, MG ####S PATHOLOGY [id number] [place], Urea nitrogen [Mass/Vol] 17 mg/dL Normal 8-22 [facility] Comment on above: Performed By: #### C H8, MG ####[facility] PATHOLOG[facility] [id number] [place] [address], COMPLETE BLOOD COUNTon 02-22 Erythrocyte distribution width (RBC) [Ratio] 15.0 % High 11.5-14.5 [facility] Comment on above: Performed By: #### C BC ####[facility] PATHOLOG[facility] [id number] [place] [address], Hematocrit (Bld) [Volume fraction] 27.4 % Low 41.0-53.0 [facility] Comment on above: Performed By: #### C BC ####S PATHOLOGY [id number] [place], Hemoglobin (Bld) [Mass/Vol] 9.2 g/dL Low 13.9-16.3 [facility] Comment on above: Performed By: #### C BC ####S PATHOLOGY [id number] [place], MCH (RBC) [Entitic mass] 31.4 pg Normal 26.0-34.0 [facility] Comment on above: Performed By: #### C BC ####S PATHOLOGY [id number] [place], MCHC (RBC) [Mass/Vol] 33.6 g/dL Normal 32.0-35.9 [facility] Comment on above: Performed By: #### C BC ####[facility] [id number] [place], MCV (RBC) [Entitic vol] 93 fL Normal 80-100 [facility] Comment on above: Performed By: #### C BC ####S PATHOLOGY [id number] [place], Platelet mean volume (Bld) [Entitic vol] 9.9 fL Normal 7.5-11.2 [facility] Comment on above: Performed By: #### C BC ####[facility] PATHOLOG[facility] [id number] [place], Platelets (Bld) [#/Vol] 204 10*3/uL Normal 150-400 [facility] Comment on above: Performed By: #### C BC ####[facility] PATHOLOG[facility] [id number] [place], RBC (Bld) [#/Vol] 2.94 10*6/uL Low 4.50-5.90 [facility] Comment on above: Performed By: #### C BC ####[facility] PATHOLOG[facility] [id number] [place], WBC (Bld) [#/Vol] 6.7 10*3/uL Normal 4.5-11.5 [facility] Comment on above: Performed By: #### C BC ####[facility] PATHOLOG[facility] [id number] [place], Care Plan Noteon 02-22-2021 Med Specialist Authentication Interface Message Text Normal [facility] Consultson 02-22-2021 Med Specialist Authentication Interface Message Text Normal [facility] MAGNESIUMon 02-22-2021 Magnesium [Mass/Vol] 2.0 mg/dL Normal 1.6-2.8 [facility] Comment on above: Performed By: #### C H8, MG ####[facility] PATHOLOG[facility] [id number] [place] [address], Progress Noteson 02-22-2021 Med Specialist Authentication Interface Message Text Normal [facility] Specialist Authentication Interface Message Text Normal [facility] Specialist Authentication Interface Message Text Normal [facility] BASIC METABOLIC PANELon 06-2 Anion gap [Moles/Vol] 13 mmol/L Normal 5-13 [facility] Comment on above: Performed By: #### Austyn Tamez, MG ####[facility] [id number] [place], Calcium [Mass/Vol] 8.4 mg/dL Normal 8.4-10.4 [facility] [facility] Comment on above: Performed By: #### Austyn Tamez, MG ####S PATHOLOGY [id number] [place], [place], Chloride [Moles/Vol] 107 mmol/L Normal 97-111 [facility] Comment on above: Performed By: #### Austyn Tamez, MG ####S PATHOLOGY [id number] [place], CO2 [Moles/Vol] 22 mmol/L Normal 21-30 [facility] Comment on above: Performed By: #### Austyn Tamez, MG ####S PATHOLOGY [id number] [place] [address], Creatinine [Mass/Vol] 0.85 mg/dL Normal 0.80-1.30 [facility] Comment on above: Performed By: #### Austyn Tamez, MG ####S PATHOLOGY [id number] [place] [address], ESTIMATED GFR (CKD-EPI) 86 mL/min/1.73sqm Normal >=60 [facility] Comment on above: Performed By: #### Austyn Tamez, MG ####S PATHOLOGY [id number] [place], Glucose [Mass/Vol] 107 mg/dL Normal 80-116 [facility] Comment on above: Performed By: #### Austyn Tamez, MG ####[facility] PATHOLOGY [id number] [place], Potassium [Moles/Vol] 4.0 mmol/L Normal 3.3-5.3 [facility] Comment on above: Performed By: #### Austyn Tamez, MG ####S PATHOLOGY [id number] [place] [address], Sodium [Moles/Vol] 138 mmol/L Normal 135-148 [facility] Comment on above: Performed By: #### C H8, MG ####[facility] PATHOLOGY [id number] [place], Urea nitrogen [Mass/Vol] 16 mg/dL Normal 8-22 [facility] Comment on above: Performed By: #### C H8, MG ####[facility] PATHOLOGY [id number] [place], COMPLETE BLOOD COUNTon 02-21 Erythrocyte distribution width (RBC) [Ratio] 15.2 % High 11.5-14.5 [facility] Comment on above: Performed By: #### C BC ####[facility] PATHOLOGY [id number] [place] [address], Hematocrit (Bld) [Volume fraction] 26.7 % Low 41.0-53.0 [facility] Comment on above: Performed By: #### C BC ####[facility] PATHOLOGY [id number] [place] [address], Hemoglobin (Bld) [Mass/Vol] 9.2 g/dL Low 13.9-16.3 [facility] Comment on above: Performed By: #### C BC ####[facility] PATHOLOGY [id number] [place], MCH (RBC) [Entitic mass] 32.3 pg Normal 26.0-34.0 [facility] Comment on above: Performed By: #### C BC ####[facility] PATHOLOGY [id number] [place], MCHC (RBC) [Mass/Vol] 34.2 g/dL Normal 32.0-35.9 [facility] Comment on above: Performed By: #### C BC ####[facility] PATHOLOGY [id number] [place], MCV (RBC) [Entitic vol] 94 fL Normal 80-100 [facility] Comment on above: Performed By: #### C BC ####[facility] PATHOLOGY [id number] [place] [address], Platelet mean volume (Bld) [Entitic vol] 10.2 fL Normal 7.5-11.2 [facility] Comment on above: Performed By: #### C BC ####S PATHOLOGY [id number] [place], Platelets (Bld) [#/Vol] 204 10*3/uL Normal 150-400 [facility] Comment on above: Performed By: #### C BC ####S PATHOLOGY [id number] [place], RBC (Bld) [#/Vol] 2.83 10*6/uL Low 4.50-5.90 [facility] Comment on above: Performed By: #### C BC ####S PATHOLOGY [id number] [place], WBC (Bld) [#/Vol] 7.8 10*3/uL Normal 4.5-11.5 [facility] Comment on above: Performed By: #### C BC ####[facility] PATHOLOGY [id number] [place], Care Plan Noteon 02-21-2021 Med Specialist Authentication Interface Message Text Normal [facility] Consultson 02-21-2021 Med Specialist Authentication Interface Message Text Normal [facility] Med Specialist Authentication Interface Message Text Normal [facility] Med Specialist Authentication Interface Message Text Normal [facility] MAGNESIUMon 02-21-2021 Magnesium [Mass/Vol] 2.1 mg/dL Normal 1.6-2.8 [facility] Comment on above: Performed By: #### C H8, MG ####[facility] PATHOLOGY [id number] [place], Progress Noteson 02-21-2021 Med Specialist Authentication Interface Message Text Per Trauma, unclear when pt is ready for DC. Pt accepted to [facility]. Please alert SW when pt is nearing DC. Pt will require a precert. TRINIDAD Malcolm, [facility] [phone] Normal [facility] Med Specialist Authentication Interface Message Text Normal [facility] Med Specialist Authentication Interface Message Text Normal [facility] BASIC METABOLIC PANELon 06-2 Anion gap [Moles/Vol] 9 mmol/L Normal 5-13 [facility] Comment on above: Performed By: #### Rajiv Roque, CH8 ####S PATHOLOGY [id number] [place] [address], Calcium [Mass/Vol] 8.5 mg/dL Normal 8.4-10.4 [facility] Comment on above: Performed By: #### Rajiv Roque, CH8 ####[facility] PATHOLOGY [id number] [place] [address], Chloride [Moles/Vol] 104 mmol/L Normal 97-111 [facility] Comment on above: Performed By: ###Sabrina Roque, ALESHA8 ####[facility] PATHOLOGY [id number] [place] [address], CO2 [Moles/Vol] 24 mmol/L Normal 21-30 [facility] Comment on above: Performed By: ###Sabrina Roque, ALESHA8 ####[facility] PATHOLOGY [id number] [place] [address], Creatinine [Mass/Vol] 0.95 mg/dL Normal 0.80-1.30 [facility] Comment on above: Performed By: ###Sabrina Roque, CH8 ####[facility] PATHOLOGY [id number] [place] [address], ESTIMATED GFR (CKD-EPI) 79 mL/min/1.73sqm Normal >=60 [facility] Comment on above: Performed By: ###Sabrina Roque, CH8 ####[facility] PATHOLOGY [id number] [place] [address], Glucose [Mass/Vol] 112 mg/dL Normal 80-116 [facility] Comment on above: Performed By: ###Sabrina Roque, ALESHA8 ####S PATHOLOGY [id number] [place] [address], Potassium [Moles/Vol] 4.3 mmol/L Normal 3.3-5.3 [facility] Comment on above: Performed By: ###Sabrina Roque, ALESHA8 ####S PATHOLOGY [id number] [place] [address], Sodium [Moles/Vol] 133 mmol/L Low 135-148 [facility] Comment on above: Performed By: #### Rajiv Roque CH8 ####[facility] PATHOLOGY [id number] [place], Urea nitrogen [Mass/Vol] 16 mg/dL Normal 8-22 [facility] Comment on above: Performed By: #### Rajiv Roque CH8 ####[facility] PATHOLOGY [id number] [place] [address], COMPLETE BLOOD COUNTon 02-20 Erythrocyte distribution width (RBC) [Ratio] 14.9 % High 11.5-14.5 [facility] Comment on above: Performed By: #### C BC ####[facility] PATHOLOGY [id number] [place] [address], Hematocrit (Bld) [Volume fraction] 30.1 % Low 41.0-53.0 [facility] Comment on above: Performed By: #### C BC ####[facility] PATHOLOGY [id number] [place] [address], Hemoglobin (Bld) [Mass/Vol] 10.1 g/dL Low 13.9-16.3 [facility] Comment on above: Performed By: #### C BC ####[facility] PATHOLOGY [id number] [place], MCH (RBC) [Entitic mass] 31.7 pg Normal 26.0-34.0 [facility] Comment on above: Performed By: #### C BC ####[facility] PATHOLOGY [id number] [place], MCHC (RBC) [Mass/Vol] 33.5 g/dL Normal 32.0-35.9 [facility] Comment on above: Performed By: #### C BC ####[facility] PATHOLOGY [id number] [place], MCV (RBC) [Entitic vol] 95 fL Normal 80-100 [facility] Comment on above: Performed By: #### C BC ####[facility] PATHOLOGY [id number] [place] [address], Platelet mean volume (Bld) [Entitic vol] 10.1 fL Normal 7.5-11.2 [facility] Comment on above: Performed By: #### C BC ####S PATHOLOGY [id number] [place], Platelets (Bld) [#/Vol] 225 10*3/uL Normal 150-400 [facility] Comment on above: Performed By: #### C BC ####[facility] PATHOLOGY [id number] [place], RBC (Bld) [#/Vol] 3.18 10*6/uL Low 4.50-5.90 [facility] Comment on above: Performed By: #### C BC ####S PATHOLOGY [id number] [place], WBC (Bld) [#/Vol] 8.3 10*3/uL Normal 4.5-11.5 [facility] Comment on above: Performed By: #### C BC ####[facility] PATHOLOGY [id number] [place], Care Plan Noteon 02-20-2021 Med Specialist Authentication Interface Message Text Normal [facility] Consultson 02-20-2021 Med Specialist Authentication Interface Message Text Normal [facility] H AND Martin 02-20-2021 Med Specialist Authentication Interface Message Text Normal [facility] MAGNESIUMon 02-20-2021 Magnesium [Mass/Vol] 1.8 mg/dL Normal 1.6-2.8 [facility] Comment on above: Performed By: #### M Mya, CH8 ####[facility] PATHOLOGY [id number] [place], Procedureson 02-20-2021 Med Specialist Authentication Interface Message Text Normal [facility] Progress Noteson 02-20-2021 Med Specialist Authentication Interface Message Text Normal [facility] Med Specialist Authentication Interface Message Text Entered in error. Normal [facility] Med Specialist Authentication Interface Message Text Normal [facility] Med Specialist Authentication Interface Message Text Normal [facility] Anesthesia Acute Painon 01-30 Med Specialist Authentication Interface Message Text Normal [facility] Anesthesia Attestationon Med Specialist Authentication Interface Message Text Normal [facility] Anesthesia Postprocedure Lucretia luationon 02-19-2021 Med Specialist Authentication Interface Message Text Normal [facility] Med Specialist Authentication Interface Message Text Normal [facility] Procedure Noteson 02-19-2021 Med Specialist Authentication Interface Message Text Normal [facility] Anesthesia Transfer Of Careo n 02-19-2021 Med Specialist Authentication Interface Message Text Normal [facility] BASIC METABOLIC PANELon 01-30 Anion gap [Moles/Vol] 13 mmol/L Normal 5-13 [facility] Comment on above: Performed By: #### Rajiv Roque, CH8 ####S PATHOLOGY [id number] [place], Calcium [Mass/Vol] 8.9 mg/dL Normal 8.4-10.4 [facility] Comment on above: Performed By: #### Rajiv Roque, CH8 ####S PATHOLOGY [id number] [place], Chloride [Moles/Vol] 107 mmol/L Normal 97-111 [facility] Comment on above: Performed By: #### Rajiv Roque, CH8 ####S PATHOLOGY [id number] [place], CO2 [Moles/Vol] 21 mmol/L Normal 21-30 [facility] Comment on above: Performed By: #### Rajiv Roque, CH8 ####S PATHOLOGY [id number] [place], Creatinine [Mass/Vol] 1.00 mg/dL Normal 0.80-1.30 [facility] Comment on above: Performed By: #### Rajiv Roque, CH8 ####S PATHOLOGY [id number] [place], ESTIMATED GFR (CKD-EPI) 74 mL/min/1.73sqm Normal >=60 [facility] Comment on above: Performed By: #### Rajiv Roque, CH8 ####S PATHOLOGY [id number] [place], Glucose [Mass/Vol] 102 mg/dL Normal 80-116 [facility] Comment on above: Performed By: #### Rajiv Roque, CH8 ####[facility] PATHOLOG[facility] [id number] [place], Potassium [Moles/Vol] 4.3 mmol/L Normal 3.3-5.3 [facility] Comment on above: Performed By: #### Rajiv Roque, CH8 ####[facility] PATHOLOGY [id number] [place], Sodium [Moles/Vol] 137 mmol/L Normal 135-148 [facility] Comment on above: Performed By: #### Rajiv Roque, ALESHA8 ####[facility] PATHOLOGY [id number] [place] [address], Urea nitrogen [Mass/Vol] 23 mg/dL High 8-22 [facility] Comment on above: Performed By: #### Rajiv Roque CH8 ####[facility] PATHOLOGY [id number] [place] [address], BLOOD GAS, ARTERIALon 2020 CR % O2 SAT > 99.4 Normal >=95.1 [facility] Comment on above: Performed By: #### C R GLU, CR COOX, CR ICA, CR BGA, CR LYTES, LACT ####[facility] PATHOLOG[facility] [id number] [place] [address], CR MAYCOL -2.1 mmol/L Low -2.0-2.0 [facility] Comment on above: Performed By: #### C R GLU, CR COOX, CR ICA, CR BGA, CR LYTES, LACT ####[facility] PATHOLOGY [id number] [place] [address], CR PCO2 32.5 mm Hg Low 35.0-45.0 [facility] Comment on above: Performed By: #### C R GLU, CR COOX, CR ICA, CR BGA, CR LYTES, LACT ####[facility] PATHOLOG[facility] [id number] [place] [address], CR PHA 7.429 Normal 7.35-7.45 [facility] Comment on above: Performed By: #### C R GLU, CR COOX, CR ICA, CR BGA, CR LYTES, LACT ####[facility] PATHOLOG[facility] [id number] [place] [address], CR PO2 190 mm Hg High 80-100 mm Hg [facility] Comment on above: Performed By: #### C R GLU, CR COOX, CR ICA, CR BGA, CR LYTES, LACT ####[facility] PATHOLOG[facility] [id number] [place] [address], HCO3 (Bld) [Moles/Vol] 21 mmol/L Low - e [facility] Comment on above: Performed By: #### C R GLU, CR COOX, CR ICA, CR BGA, CR LYTES, LACT ####[facility] PATHOLOGY [id number] [place] [address], Brief Operative Noteon 02-19 Med Specialist Authentication Interface Message Text Normal [facility] CALCIUM, IONIZEDon CR ICA 1.12 mmol/L Normal 1.10-1.40 [facility] Comment on above: Performed By: #### C R GLU, CR COOX, CR ICA, CR BGA, CR LYTES, LACT ####[facility] PATHOLOG[facility] [id number] [place] [address], CO-OXIMETERon 02-19-2021 CARBOXYHEMOGLOBIN 2.2 % Normal <3.0 [facility] Comment on above: Performed By: #### C R GLU, CR COOX, CR ICA, CR BGA, CR LYTES, LACT ####[facility] PATHOLOG[facility] [id number] [place] [address], CR HBMET 1.4 % Normal <3.0 [facility] Comment on above: Performed By: #### C R GLU, CR COOX, CR ICA, CR BGA, CR LYTES, LACT ####[facility] PATHOLOG[facility] [id number] [place] [address], Hematocrit (Bld) [Volume fraction] 31.1 % Low 42.0-52.0 [facility] Comment on above: Performed By: #### C R GLU, CR COOX, CR ICA, CR BGA, CR LYTES, LACT ####[facility] PATHOLOG[facility] [id number] [place], Hemoglobin (Bld) [Mass/Vol] 10.1 g/dL Low 14.0-18.0 [facility] Comment on above: Performed By: #### C R GLU, CR COOX, CR ICA, CR BGA, CR LYTES, LACT ####[facility] PATHOLOG[facility] [id number] [place] [address], OXYHEMOGLOBIN 96.1 % Normal 95.0-100.0 [facility] Comment on above: Performed By: #### C R GLU, CR COOX, CR ICA, CR BGA, CR LYTES, LACT ####[facility] PATHOLOG[facility] [id number] [place] [address], COMPLETE BLOOD COUNTon 02-19 Erythrocyte distribution width (RBC) [Ratio] 14.9 % High 11.5-14.5 [facility] Comment on above: Performed By: #### C BC ####[facility] PATHOLOG[facility] [id number] [place] [address], Hematocrit (Bld) [Volume fraction] 31.8 % Low 41.0-53.0 [facility] Comment on above: Performed By: #### C BC ####[facility] PATHOLOG[facility] [id number] [place] [address], Hemoglobin (Bld) [Mass/Vol] 10.7 g/dL Low 13.9-16.3 [facility] Comment on above: Performed By: #### C BC ####[facility] PATHOLOGY [id number] [place] [address], MCH (RBC) [Entitic mass] 31.7 pg Normal 26.0-34.0 [facility] Comment on above: Performed By: #### C BC ####[facility] PATHOLOG[facility] [id number] [place] [address], MCHC (RBC) [Mass/Vol] 33.8 g/dL Normal 32.0-35.9 [facility] Comment on above: Performed By: #### C BC ####[facility] PATHOLOG[facility] [id number] [place], MCV (RBC) [Entitic vol] 94 fL Normal 80-100 [facility] Comment on above: Performed By: #### C BC ####[facility] PATHOLOG[facility] [id number] [place], Platelet mean volume (Bld) [Entitic vol] 9.6 fL Normal 7.5-11.2 [facility] Comment on above: Performed By: #### C BC ####[facility] PATHOLOG[facility] [id number] [place], Platelets (Bld) [#/Vol] 235 10*3/uL Normal 150-400 [facility] Comment on above: Performed By: #### C BC ####[facility] PATHOLOG[facility] [id number] [place], RBC (Bld) [#/Vol] 3.38 10*6/uL Low 4.50-5.90 [facility] Comment on above: Performed By: #### C BC ####[facility] PATHOLOG[facility] [id number] [place] [address], WBC (Bld) [#/Vol] 6.3 10*3/uL Normal 4.5-11.5 [facility] Comment on above: Performed By: #### C BC ####[facility] PATHOLOG[facility] [id number] [place] [address], Care Plan Noteon 02-19-2021 Med Specialist Authentication Interface Message Text Normal [facility] Consultson 02-19-2021 Med Specialist Authentication Interface Message Text PHYSICAL THERAPY and OCCUPATIONAL THERAPY Attempt at Tx this AM is unsuccessful as Patient is off floor in OR with Orthopedics for definitive fixation of (L) ankle. Will f/u Maribell Ocasio, PT, MPT (B) [phone] Rosa Vick, OTR/L Normal [facility] ELECTROLYTESon 02-19-2021 Chloride [Moles/Vol] 109 mmol/L Normal 97-111 [facility] Comment on above: Performed By: #### C R GLU, CR COOX, CR ICA, CR BGA, CR LYTES, LACT ####[facility] PATH[facility] [id number] [place], Potassium [Moles/Vol] 3.8 mmol/L Normal 3.3-5.3 [facility] Comment on above: Performed By: #### C R GLU, CR COOX, CR ICA, CR BGA, CR LYTES, LACT ####[facility] PATHOLOG[facility] [id number] [place], Sodium [Moles/Vol] 134 mmol/L Low 135-148 [facility] Comment on above: Performed By: #### C R GLU, CR COOX, CR ICA, CR BGA, CR LYTES, LACT ####[facility] PATHOLOG[facility] [id number] [place] [address], GLUCOSE, WHOLE BLOODon 02-19 CR GLU 101 mg/dL High 68-98 [facility] Comment on above: Performed By: #### C R GLU, CR COOX, CR ICA, CR BGA, CR LYTES, LACT ####[facility] PATHOLOG[facility] [id number] [place] [address], H AND Martin 02-19-2021 Med Specialist Authentication Interface Message Text Normal [facility] LACTIC ACIDon 02-19-2021 CR LACT 0.7 mmol/L Normal 0.5-2.0 [facility] Comment on above: Performed By: #### C R GLU, CR COOX, CR ICA, CR BGA, CR LYTES, LACT ####[facility] PATHOLOG[facility] [id number] [place] [address], MAGNESIUMon 02-19-2021 Magnesium [Mass/Vol] 2.0 mg/dL Normal 1.6-2.8 [facility] Comment on above: Performed By: #### UCHE BlumS ####[facility] PATHOLOG[facility] [id number] [place] [address], Magnesium [Mass/Vol] 2.0 mg/dL Normal 1.6-2.8 [facility] Comment on above: Performed By: #### Rajiv Roque CH8 ####[facility] PATHOLOG[facility] [id number] [place] [address], OP Noteon 02-19-2021 Med Specialist Authentication Interface Message Text Normal [facility] PARTIAL THROMBOPLASTIN TIMEo n 02-19-2021 aPTT Coag (Bld) [Time] 34 s Normal 25-37 Th [facility] Comment on above: Performed By: #### A PTT, PT ####S PATHOLOGY [id number] [place], PHOSPHORUSon 02-19-2021 Phosphate [Mass/Vol] 3.8 mg/dL Normal 2.3-4.2 [facility] Comment on above: Performed By: #### M G, PHOS ####[facility] PATH[facility] [id number] [place], PROTHROMBIN TIME AND INRon 0 02-19-2021 INR Coag (PPP) [Relative time] 1.09 {INR} Normal 0.90-1.10 [facility] Comment on above: Performed By: #### A PTT, PT ####[facility] [id number] [place], PT Coag (PPP) [Time] 12.3 s Normal 9.7-12.9 [facility] Comment on above: Performed By: #### A PTT, PT ####[facility] PATHOLOG[facility] [id number] [place] [address], Progress Noteson 02-19-2021 Med Specialist Authentication Interface Message Text Normal [facility] Med Specialist Authentication Interface Message Text Peripheral nerve block has been completed at bedside by anesthesia; will maintain cardiac monitoring for at least 30 minutes. Normal [facility] Med Specialist Authentication Interface Message Text OK for patient to get peripheral nerve block per Dr. Santos. Normal [facility] Med Specialist Authentication Interface Message Text Normal [facility] TYPE AND SCREENon 02-19-2021 ABO and Rh group Nom (Bld) Blood group A Rh(D) positive Normal [facility] Comment on above: Performed By: #### T S ####[facility] [id number] [place], ABSC INT Negative Normal [facility] Comment on above: Performed By: #### T S ####S PATHOLOGY [id number] [place], [place] GUIDANCE NEEDLE PLACEMENT on 02-19-2021 [place] GUIDANCE NEEDLE PLACEMENT Normal [facility] System XR ANKLE LEFTon 02-19-2021 XR ANKLE LEFT Normal [facility] Anesthesia Preprocedure Eval uationon 02-18-2021 Med Specialist Authentication Interface Message Text Normal [facility] Care Plan Noteon 02-18-2021 Med Specialist Authentication Interface Message Text Normal [facility] Progress Noteson 02-18-2021 Med Specialist Authentication Interface Message Text SW is aware pt to go to the OR tomorrow: 02/19/2021. Pt will need post-op PT/OT for SNF placement and precert. [facility] has accepted and following for placement. They were made aware of the above Amada Saul [facility], [employer] [phone] Normal [facility] Med Specialist Authentication Interface Message Text Normal [facility] Med Specialist Authentication Interface Message Text Normal [facility] Med Specialist Authentication Interface Message Text Normal [facility] BASIC METABOLIC PANELon 01-30 Anion gap [Moles/Vol] 12 mmol/L Normal 5-13 [facility] Comment on above: Performed By: #### C H8, DIG, MG ####[facility] [id number] [place], Calcium [Mass/Vol] 8.9 mg/dL Normal 8.4-10.4 [facility] Comment on above: Performed By: #### C H8, DIG, MG ####[facility] [id number] [place], Chloride [Moles/Vol] 106 mmol/L Normal 97-111 [facility] Comment on above: Performed By: #### C H8, DIG, MG ####[facility] [id number] [place], CO2 [Moles/Vol] 22 mmol/L Normal 21-30 [facility] Comment on above: Performed By: #### C H8, DIG, MG ####[facility] [id number] [place], Creatinine [Mass/Vol] 1.17 mg/dL Normal 0.80-1.30 [facility] Comment on above: Performed By: #### EDMOND Dupont, MG ####S PATHOLOGY [id number] [place], ESTIMATED GFR (CKD-EPI) 61 mL/min/1.73sqm Normal >=60 [facility] Comment on above: Performed By: #### EDMOND Dupont, MG ####S PATHOLOGY [id number] [place], Glucose [Mass/Vol] 104 mg/dL Normal 80-116 [facility] Comment on above: Performed By: #### EDMOND Dupont, MG ####[facility] [id number] [place], Potassium [Moles/Vol] 4.4 mmol/L Normal 3.3-5.3 [facility] Comment on above: Performed By: #### EDMOND Dupont, MG ####S PATHOLOGY [id number] [place], Sodium [Moles/Vol] 136 mmol/L Normal 135-148 [facility] Comment on above: Performed By: #### EDMOND Dupont MG ####S PATHOLOGY [id number] [place] [address], Urea nitrogen [Mass/Vol] 33 mg/dL High 8-22 [facility] Comment on above: Performed By: #### EDMOND Dupont, MG ####S PATHOLOGY [id number] [place], COMPLETE BLOOD COUNTon 02-17 Erythrocyte distribution width (RBC) [Ratio] 14.6 % High 11.5-14.5 [facility] Comment on above: Performed By: #### Austyn BC ####S PATHOLOGY [id number] [place], Hematocrit (Bld) [Volume fraction] 30.4 % Low 41.0-53.0 [facility] Comment on above: Performed By: #### Austyn FAJARDO ####S PATHOLOGY [id number] [place] [address], Hemoglobin (Bld) [Mass/Vol] 10.4 g/dL Low 13.9-16.3 [facility] Comment on above: Performed By: #### C BC ####[facility] PATHOLOGY [id number] [place], MCH (RBC) [Entitic mass] 32.4 pg Normal 26.0-34.0 [facility] Comment on above: Performed By: #### C BC ####[facility] PATHOLOGY [id number] [place] [address], MCHC (RBC) [Mass/Vol] 34.2 g/dL Normal 32.0-35.9 [facility] Comment on above: Performed By: #### C BC ####[facility] PATHOLOGY [id number] [place] [address], MCV (RBC) [Entitic vol] 95 fL Normal 80-100 [facility] Comment on above: Performed By: #### C BC ####[facility] PATHOLOGY [id number] [place] [address], Platelet mean volume (Bld) [Entitic vol] 10.2 fL Normal 7.5-11.2 [facility] Comment on above: Performed By: #### C BC ####[facility] PATHOLOGY [id number] [place] [address], Platelets (Bld) [#/Vol] 207 10*3/uL Normal 150-400 [facility] Comment on above: Performed By: #### C BC ####[facility] PATHOLOGY [id number] [place] [address], RBC (Bld) [#/Vol] 3.20 10*6/uL Low 4.50-5.90 [facility] Comment on above: Performed By: #### C BC ####[facility] PATHOLOGY [id number] [place] [address], WBC (Bld) [#/Vol] 9.1 10*3/uL Normal 4.5-11.5 [facility] Comment on above: Performed By: #### C BC ####[facility] [id number] [place], Care Plan Noteon 02-17-2021 Med Specialist Authentication Interface Message Text Normal [facility] Consultson 02-17-2021 Med Specialist Authentication Interface Message Text Normal [facility] Med Specialist Authentication Interface Message Text Normal [facility] DIGOXINon 02-17-2021 DIG 0.91 ng/mL Normal 0.80-2.00 [facility] Comment on above: Performed By: #### Austyn Tamez, DIG, MG ####S PATHOLOGY [id number] [place], MAGNESIUMon 02-17-2021 Magnesium [Mass/Vol] 2.0 mg/dL Normal 1.6-2.8 [facility] Comment on above: Performed By: #### Austyn Tamez, DIG, MG ####S PATHOLOGY [id number] [place], Progress Noteson 02-17-2021 Med Specialist Authentication Interface Message Text Normal [facility] Care Plan Noteon 02-16-2021 Med Specialist Authentication Interface Message Text Normal [facility] Progress Noteson 02-16-2021 Med Specialist Authentication Interface Message Text Normal [facility] 1:1 Interactionon 02-15-2021 Med Specialist Authentication Interface Message Text Normal [facility] BASIC METABOLIC PANELon 01-29 Anion gap [Moles/Vol] 11 mmol/L Normal 5-13 [facility] Comment on above: Performed By: #### JENNIFER Blum ####S PATHOLOGY [id number] [place], Calcium [Mass/Vol] 8.8 mg/dL Normal 8.4-10.4 [facility] Comment on above: Performed By: #### JENNIFER Blum ####S PATHOLOGY [id number] [place], Chloride [Moles/Vol] 108 mmol/L Normal 97-111 [facility] Comment on above: Performed By: #### JENNIFER Blum ####S PATHOLOGY [id number] [place], CO2 [Moles/Vol] 23 mmol/L Normal 21-30 [facility] Comment on above: Performed By: #### Rajiv Roque, CH8 ####S PATHOLOGY [id number] [place], Creatinine [Mass/Vol] 1.06 mg/dL Normal 0.80-1.30 [facility] Comment on above: Performed By: #### Rajiv Roque, CH8 ####S PATHOLOGY [id number] [place], ESTIMATED GFR (CKD-EPI) 69 mL/min/1.73sqm Normal >=60 [facility] Comment on above: Performed By: #### Rajiv Roque, ALESHA8 ####[facility] PATHOLOGY [id number] [place], Glucose [Mass/Vol] 110 mg/dL Normal 80-116 [facility] Comment on above: Performed By: #### Rajiv Roque, ALESHA8 ####[facility] PATHOLOGY [id number] [place], Potassium [Moles/Vol] 4.3 mmol/L Normal 3.3-5.3 [facility] Comment on above: Performed By: #### Rajiv Roque, ALESHA8 ####[facility] PATHOLOGY [id number] [place] [address], Sodium [Moles/Vol] 138 mmol/L Normal 135-148 [facility] Comment on above: Performed By: #### Rajiv Roque, ALESHA8 ####S PATHOLOGY [id number] [place], Urea nitrogen [Mass/Vol] 34 mg/dL High 8-22 [facility] Comment on above: Performed By: #### Rajiv Roque, CH8 ####S PATHOLOGY [id number] [place], COMPLETE BLOOD COUNTon 02-15 Erythrocyte distribution width (RBC) [Ratio] 14.8 % High 11.5-14.5 [facility] Comment on above: Performed By: #### C BC ####S PATHOLOGY [id number] [place] [address], Hematocrit (Bld) [Volume fraction] 30.1 % Low 41.0-53.0 [facility] Comment on above: Performed By: #### C BC ####[facility] PATHOLOGY [id number] [place], Hemoglobin (Bld) [Mass/Vol] 10.1 g/dL Low 13.9-16.3 [facility] Comment on above: Performed By: #### C BC ####[facility] PATHOLOGY [id number] [place], MCH (RBC) [Entitic mass] 31.3 pg Normal 26.0-34.0 [facility] Comment on above: Performed By: #### C BC ####[facility] PATHOLOGY [id number] [place] [address], MCHC (RBC) [Mass/Vol] 33.5 g/dL Normal 32.0-35.9 [facility] Comment on above: Performed By: #### C BC ####[facility] PATHOLOGY [id number] [place] [address], MCV (RBC) [Entitic vol] 93 fL Normal 80-100 [facility] Comment on above: Performed By: #### C BC ####[facility] PATHOLOGY [id number] [place] [address], Platelet mean volume (Bld) [Entitic vol] 10.2 fL Normal 7.5-11.2 [facility] Comment on above: Performed By: #### C BC ####[facility] PATHOLOGY [id number] [place], Platelets (Bld) [#/Vol] 172 10*3/uL Normal 150-400 [facility] Comment on above: Performed By: #### C BC ####[facility] PATHOLOGY [id number] [place], RBC (Bld) [#/Vol] 3.23 10*6/uL Low 4.50-5.90 [facility] Comment on above: Performed By: #### C BC ####[facility] PATHOLOGY [id number] [place], WBC (Bld) [#/Vol] 9.1 10*3/uL Normal 4.5-11.5 [facility] Comment on above: Performed By: #### C BC ####[facility] [id number] [place], Care Plan Noteon 02-15-2021 Med Specialist Authentication Interface Message Text Normal [facility] Consultson 02-15-2021 Med Specialist Authentication Interface Message Text Normal [facility] Med Specialist Authentication Interface Message Text Normal [facility] MAGNESIUMon 02-15-2021 Magnesium [Mass/Vol] 2.0 mg/dL Normal 1.6-2.8 [facility] Comment on above: Performed By: #### Rajiv Roque CH8 ####[facility] [id number] [place], Progress Noteson 02-15-2021 Med Specialist Authentication Interface Message Text Labs and vitals stable, known current state of variable aflutter block causing HR variability from 70-140s. No acute issues since ICU transfer. Normal [facility] Med Specialist Authentication Interface Message Text Normal [facility] Med Specialist Authentication Interface Message Text Normal [facility] 1:1 Interactionon 02-14-2021 Med Specialist Authentication Interface Message Text Normal [facility] BASIC METABOLIC PANELon 01-29 Anion gap [Moles/Vol] 11 mmol/L Normal 5-13 [facility] Comment on above: Performed By: #### Rajiv Roque, ALESHA8 ####[facility] [id number] [place], Calcium [Mass/Vol] 8.6 mg/dL Normal 8.4-10.4 [facility] Comment on above: Performed By: #### Rajiv Roque, ALESHA8 ####[facility] [id number] [place], Chloride [Moles/Vol] 110 mmol/L Normal 97-111 [facility] Comment on above: Performed By: #### Rajiv Roque, ALESHA8 ####[facility] [id number] [place], CO2 [Moles/Vol] 24 mmol/L Normal 21-30 [facility] Comment on above: Performed By: #### Rajiv Roque, CH8 ####S PATHOLOGY [id number] [place], Creatinine [Mass/Vol] 0.92 mg/dL Normal 0.80-1.30 [facility] Comment on above: Performed By: #### Rajiv Roque, CH8 ####S PATHOLOGY [id number] [place], ESTIMATED GFR (CKD-EPI) 82 mL/min/1.73sqm Normal >=60 [facility] Comment on above: Performed By: #### Rajiv Roque, CH8 ####S PATHOLOGY [id number] [place], Glucose [Mass/Vol] 116 mg/dL Normal 80-116 [facility] Comment on above: Performed By: #### Rajiv Roque, CH8 ####S PATHOLOGY [id number] [place], Potassium [Moles/Vol] 4.3 mmol/L Normal 3.3-5.3 [facility] Comment on above: Performed By: #### Rajiv Roque, CH8 ####[facility] PATHOLOGY [id number] [place], Sodium [Moles/Vol] 141 mmol/L Normal 135-148 [facility] Comment on above: Performed By: #### Rajiv Roque, CH8 ####S PATHOLOGY [id number] [place], Urea nitrogen [Mass/Vol] 36 mg/dL High 8-22 [facility] Comment on above: Performed By: #### Rajiv Roque, CH8 ####S PATHOLOGY [id number] [place], COMPLETE BLOOD COUNTon 02-14 Erythrocyte distribution width (RBC) [Ratio] 14.8 % High 11.5-14.5 [facility] Comment on above: Performed By: #### C BC ####S PATHOLOGY [id number] [place], Hematocrit (Bld) [Volume fraction] 29.5 % Low 41.0-53.0 [facility] Comment on above: Performed By: #### C BC ####[facility] PATHOLOGY [id number] [place], Hemoglobin (Bld) [Mass/Vol] 9.9 g/dL Low 13.9-16.3 [facility] Comment on above: Performed By: #### C BC ####[facility] PATHOLOGY [id number] [place], MCH (RBC) [Entitic mass] 31.9 pg Normal 26.0-34.0 [facility] Comment on above: Performed By: #### C BC ####[facility] PATHOLOGY [id number] [place], MCHC (RBC) [Mass/Vol] 33.5 g/dL Normal 32.0-35.9 [facility] Comment on above: Performed By: #### C BC ####[facility] PATHOLOGY [id number] [place] [address], MCV (RBC) [Entitic vol] 95 fL Normal 80-100 [facility] Comment on above: Performed By: #### C BC ####[facility] PATHOLOGY [id number] [place], Platelet mean volume (Bld) [Entitic vol] 10.8 fL Normal 7.5-11.2 [facility] Comment on above: Performed By: #### C BC ####[facility] PATHOLOGY [id number] [place], Platelets (Bld) [#/Vol] 131 10*3/uL Low 150-400 [facility] Comment on above: Performed By: #### C BC ####[facility] PATHOLOGY [id number] [place], RBC (Bld) [#/Vol] 3.09 10*6/uL Low 4.50-5.90 [facility] Comment on above: Performed By: #### C BC ####[facility] PATHOLOGY [id number] [place], WBC (Bld) [#/Vol] 6.8 10*3/uL Normal 4.5-11.5 [facility] Comment on above: Performed By: #### C BC ####[facility] [id number] [place], Care Plan Noteon 02-14-2021 Med Specialist Authentication Interface Message Text Normal [facility] Med Specialist Authentication Interface Message Text Normal [facility] Consultson 02-14-2021 Med Specialist Authentication Interface Message Text Normal [facility] Med Specialist Authentication Interface Message Text Normal [facility] Med Specialist Authentication Interface Message Text Normal [facility] MAGNESIUMon 02-14-2021 Magnesium [Mass/Vol] 2.5 mg/dL Normal 1.6-2.8 [facility] Comment on above: Performed By: #### Rajiv Roque, CH8 ####[facility] [id number] [place], Progress Noteson 02-14-2021 Med Specialist Authentication Interface Message Text Normal [facility] Med Specialist Authentication Interface Message Text Normal [facility] Med Specialist Authentication Interface Message Text Normal [facility] BASIC METABOLIC PANELon 01-29 Anion gap [Moles/Vol] 9 mmol/L Normal 5-13 [facility] Comment on above: Performed By: #### Austyn H8, MG ####[facility] HZABTERWIB2761 [place], Calcium [Mass/Vol] 8.9 mg/dL Normal 8.4-10.4 [facility] Comment on above: Performed By: #### Austyn H8, MG ####[facility] HIKSWYEULB1240 [place], Chloride [Moles/Vol] 108 mmol/L Normal 97-111 [facility] Comment on above: Performed By: #### Austyn H8, MG ####[facility] ZTNSMUCESO0083 [place], CO2 [Moles/Vol] 27 mmol/L Normal 21-30 [facility] Comment on above: Performed By: #### Austyn H8, MG ####[facility] [id number] [place], Creatinine [Mass/Vol] 0.89 mg/dL Normal 0.80-1.30 [facility] Comment on above: Performed By: ###Sabrina Tamez, MG ####[facility] PATHOLOGY [id number] [place] [address], ESTIMATED GFR (CKD-EPI) 84 mL/min/1.73sqm Normal >=60 [facility] Comment on above: Performed By: #### Austyn Tamez, MG ####[facility] PATHOLOGY [id number] [place], Glucose [Mass/Vol] 127 mg/dL High 80-116 [facility] Comment on above: Performed By: ###Sabrina Tamez, MG ####[facility] PATHOLOGY [id number] [place] [address], Potassium [Moles/Vol] 3.9 mmol/L Normal 3.3-5.3 [facility] Comment on above: Performed By: ###Sabrina Tamez, MG ####[facility] PATHOLOGY [id number] [place] [address], Sodium [Moles/Vol] 140 mmol/L Normal 135-148 [facility] Comment on above: Performed By: ###Sabrina Tamez, MG ####[facility] PATHOLOGY [id number] [place] [address], Urea nitrogen [Mass/Vol] 29 mg/dL High 8-22 [facility] Comment on above: Performed By: ###Sabrina Tamez, MG ####[facility] PATHOLOGY [id number] [place] [address], COMPLETE BLOOD COUNTon 02-13 Erythrocyte distribution width (RBC) [Ratio] 14.5 % Normal 11.5-14.5 [facility] Comment on above: Performed By: #### Austyn FAJARDO ####[facility] PATHOLOGY [id number] [place] [address], Hematocrit (Bld) [Volume fraction] 29.0 % Low 41.0-53.0 [facility] Comment on above: Performed By: ###Sabrina FAJARDO ####S PATHOLOGY [id number] [place] [address] [place], Hemoglobin (Bld) [Mass/Vol] 9.8 g/dL Low 13.9-16.3 [facility] Comment on above: Performed By: #### C BC ####[facility] PATHOLOG[facility] [id number] [place], MCH (RBC) [Entitic mass] 31.6 pg Normal 26.0-34.0 [facility] Comment on above: Performed By: #### C BC ####[facility] PATHOLOGY [id number] [place], MCHC (RBC) [Mass/Vol] 33.9 g/dL Normal 32.0-35.9 [facility] Comment on above: Performed By: #### C BC ####[facility] PATHOLOGY [id number] [place] [address], MCV (RBC) [Entitic vol] 93 fL Normal 80-100 [facility] Comment on above: Performed By: #### C BC ####[facility] PATHOLOGY [id number] [place] [address], Platelet mean volume (Bld) [Entitic vol] 10.8 fL Normal 7.5-11.2 [facility] Comment on above: Performed By: #### C BC ####[facility] PATHOLOGY [id number] [place], Platelets (Bld) [#/Vol] 132 10*3/uL Low 150-400 [facility] Comment on above: Performed By: #### C BC ####[facility] PATHOLOGY [id number] [place], RBC (Bld) [#/Vol] 3.11 10*6/uL Low 4.50-5.90 [facility] Comment on above: Performed By: #### C BC ####[facility] PATHOLOGY [id number] [place], WBC (Bld) [#/Vol] 7.1 10*3/uL Normal 4.5-11.5 [facility] Comment on above: Performed By: #### C BC ####[facility] PATHOLOG[facility] [id number] [place], Consultson 02-13-2021 Med Specialist Authentication Interface Message Text Normal [facility] Specialist Authentication Interface Message Text Normal [facility] MAGNESIUMon 02-13-2021 Magnesium [Mass/Vol] 1.9 mg/dL Normal 1.6-2.8 [facility] Comment on above: Performed By: #### Austyn Tamez MG ####[facility] [id number] [place], Progress Noteson 02-13-2021 Med Specialist Authentication Interface Message Text Normal [facility] Med Specialist Authentication Interface Message Text Normal [facility] 1:1 Interactionon 02-12-2021 Med Specialist Authentication Interface Message Text Normal [facility] BASIC METABOLIC PANELon 01-29 Anion gap [Moles/Vol] 10 mmol/L Normal 5-13 [facility] Comment on above: Performed By: #### Austyn Tamez MG, DIG ####S PATHOLOGY [id number] [place], Calcium [Mass/Vol] 8.7 mg/dL Normal 8.4-10.4 [facility] Comment on above: Performed By: #### Austyn Tamez MG, DIG ####[facility] [id number] [place], Chloride [Moles/Vol] 108 mmol/L Normal 97-111 [facility] Comment on above: Performed By: #### Austyn Tamez MG, DIG ####[facility] [id number] [place], CO2 [Moles/Vol] 26 mmol/L Normal 21-30 [facility] Comment on above: Performed By: #### Austyn Tamez MG, DIG ####[facility] [id number] [place], Creatinine [Mass/Vol] 1.10 mg/dL Normal 0.80-1.30 [facility] Comment on above: Performed By: #### Austyn Tamez MG, DIG ####[facility] [id number] [place], ESTIMATED GFR (CKD-EPI) 66 mL/min/1.73sqm Normal >=60 [facility] Comment on above: Performed By: #### MG Kiah, DIG ####S PATHOLOGY [id number] [place], Glucose [Mass/Vol] 116 mg/dL Normal 80-116 [facility] Comment on above: Performed By: #### MG Kiah, DIG ####S PATHOLOGY [id number] [place], Potassium [Moles/Vol] 4.2 mmol/L Normal 3.3-5.3 [facility] Comment on above: Performed By: #### MG Kiah, DIG ####[facility] [id number] [place], [place], Sodium [Moles/Vol] 140 mmol/L Normal 135-148 [facility] Comment on above: Performed By: #### MG Kiah, DIG ####S PATHOLOGY [id number] [place], Urea nitrogen [Mass/Vol] 33 mg/dL High 8-22 [facility] Comment on above: Performed By: #### MG Kiah, DIG ####[facility] [id number] [place], COMPLETE BLOOD COUNTon 02-12 Erythrocyte distribution width (RBC) [Ratio] 14.5 % Normal 11.5-14.5 [facility] Comment on above: Performed By: #### Austyn BC ####[facility] [id number] [place], Hematocrit (Bld) [Volume fraction] 27.5 % Low 41.0-53.0 [facility] Comment on above: Performed By: #### C BC ####[facility] [id number] [place], Hemoglobin (Bld) [Mass/Vol] 9.2 g/dL Low 13.9-16.3 [facility] Comment on above: Performed By: #### Austyn BC ####[facility] [id number] [place], MCH (RBC) [Entitic mass] 31.1 pg Normal 26.0-34.0 [facility] Comment on above: Performed By: #### C BC ####S PATHOLOGY [id number] [place], MCHC (RBC) [Mass/Vol] 33.4 g/dL Normal 32.0-35.9 [facility] Comment on above: Performed By: #### C BC ####[facility] PATHOLOGY [id number] [place], MCV (RBC) [Entitic vol] 93 fL Normal 80-100 [facility] Comment on above: Performed By: #### C BC ####[facility] PATHOLOGY [id number] [place], Platelet mean volume (Bld) [Entitic vol] 10.8 fL Normal 7.5-11.2 [facility] Comment on above: Performed By: #### C BC ####[facility] PATHOLOGY [id number] [place], Platelets (Bld) [#/Vol] 109 10*3/uL Low 150-400 [facility] Comment on above: Performed By: #### C BC ####[facility] PATHOLOGY [id number] [place], RBC (Bld) [#/Vol] 2.95 10*6/uL Low 4.50-5.90 [facility] Comment on above: Performed By: #### C BC ####S PATHOLOGY [id number] [place], WBC (Bld) [#/Vol] 7.5 10*3/uL Normal 4.5-11.5 [facility] Comment on above: Performed By: #### C BC ####S PATHOLOGY [id number] [place], Care Plan Noteon 02-12-2021 Med Specialist Authentication Interface Message Text Normal [facility]son 02-12-2021 Med Specialist Authentication Interface Message Text Normal [facility] Authentication Interface Message Text Normal [facility] Authentication Interface Message Text Normal [facility] DIGOXINon 02-12-2021 DIG 0.92 ng/mL Normal 0.80-2.00 [facility] Comment on above: Performed By: #### Austyn Tamez MG, DIG ####[facility] [id number] [place], [place] MODIFIED BARIUM SWALLOWon 02-12-2021 [place] MODIFIED BARIUM SWALLOW Normal [facility] MAGNESIUMon 02-12-2021 Magnesium [Mass/Vol] 2.0 mg/dL Normal 1.6-2.8 [facility] Comment on above: Performed By: #### Austyn Tamez MG, DIG ####[facility] [id number] [place], Progress Noteson 02-12-2021 Med Specialist Authentication Interface Message Text Normal [facility] Authentication Interface Message Text Normal [facility] BASIC METABOLIC PANELon 01-29 Anion gap [Moles/Vol] 10 mmol/L Normal 5-13 [facility] Comment on above: Performed By: #### Austyn H8, MG ####[facility] [id number] [place], Calcium [Mass/Vol] 8.6 mg/dL Normal 8.4-10.4 [facility] Comment on above: Performed By: #### Austyn H8, MG ####[facility] [id number] [place], Chloride [Moles/Vol] 106 mmol/L Normal 97-111 [facility] Comment on above: Performed By: #### Austyn H8, MG ####[facility] [id number] [place], CO2 [Moles/Vol] 26 mmol/L Normal 21-30 [facility] Comment on above: Performed By: #### Austyn H8, MG ####[facility] [id number] [place], Creatinine [Mass/Vol] 1.01 mg/dL Normal 0.80-1.30 [facility] Comment on above: Performed By: #### C H8, MG ####[facility] [id number] [place], ESTIMATED GFR (CKD-EPI) 73 mL/min/1.73sqm Normal >=60 [facility] Comment on above: Performed By: #### C H8, MG ####[facility] [id number] [place], Glucose [Mass/Vol] 121 mg/dL High 80-116 [facility] Comment on above: Performed By: #### C H8, MG ####[facility] [id number] [place], Potassium [Moles/Vol] 4.0 mmol/L Normal 3.3-5.3 [facility] Comment on above: Performed By: #### C H8, MG ####[facility] [id number] [place], Sodium [Moles/Vol] 138 mmol/L Normal 135-148 [facility] Comment on above: Performed By: #### C H8, MG ####S PATHOLOGY [id number] [place], Urea nitrogen [Mass/Vol] 22 mg/dL Normal 8-22 [facility] Comment on above: Performed By: #### C H8, MG ####[facility] [id number] [place], COMPLETE BLOOD COUNTon 02-11 Erythrocyte distribution width (RBC) [Ratio] 14.1 % Normal 11.5-14.5 [facility] Comment on above: Performed By: #### C BC ####[facility] [id number] [place], Hematocrit (Bld) [Volume fraction] 29.6 % Low 41.0-53.0 [facility] Comment on above: Performed By: #### C BC ####[facility] [id number] [place], Hemoglobin (Bld) [Mass/Vol] 10.2 g/dL Low 13.9-16.3 [facility] Comment on above: Performed By: #### C BC ####[facility] PATHOLOGY [id number] [place], MCH (RBC) [Entitic mass] 32.3 pg Normal 26.0-34.0 [facility] Comment on above: Performed By: #### C BC ####[facility] PATHOLOGY [id number] [place], MCHC (RBC) [Mass/Vol] 34.4 g/dL Normal 32.0-35.9 [facility] Comment on above: Performed By: #### C BC ####[facility] PATHOLOGY [id number] [place], MCV (RBC) [Entitic vol] 94 fL Normal 80-100 [facility] Comment on above: Performed By: #### C BC ####[facility] PATHOLOGY [id number] [place], Platelet mean volume (Bld) [Entitic vol] 10.3 fL Normal 7.5-11.2 [facility] Comment on above: Performed By: #### C BC ####[facility] PATHOLOGY [id number] [place], Platelets (Bld) [#/Vol] 101 10*3/uL Low 150-400 [facility] Comment on above: Performed By: #### C BC ####[facility] PATHOLOGY [id number] [place], RBC (Bld) [#/Vol] 3.15 10*6/uL Low 4.50-5.90 [facility] Comment on above: Performed By: #### C BC ####[facility] PATHOLOGY [id number] [place], WBC (Bld) [#/Vol] 8.2 10*3/uL Normal 4.5-11.5 [facility] Comment on above: Performed By: #### C BC ####[facility] PATHOLOGY [id number] [place], Care Plan Noteon 02-11-2021 Med Specialist Authentication Interface Message Text Normal [facility] Med Specialist Authentication Interface Message Text Normal [facility] Consultson 02-11-2021 Med Specialist Authentication Interface Message Text Normal [facility] DIGOXINon 02-11-2021 DIG 1.91 ng/mL Normal 0.80-2.00 [facility] Comment on above: Performed By: #### D IG ####[facility] PATHOLOGY [id number] [place], MAGNESIUMon 02-11-2021 Magnesium [Mass/Vol] 2.0 mg/dL Normal 1.6-2.8 [facility] Comment on above: Performed By: #### C H8, MG ####S PATHOLOGY [id number] [place], Progress Noteson 02-11-2021 Med Specialist Authentication Interface Message Text Normal [facility] Med Specialist Authentication Interface Message Text Normal [facility] Med Specialist Authentication Interface Message Text Normal [facility] Med Specialist Authentication Interface Message Text Normal [facility] Med Specialist Authentication Interface Message Text Normal [facility] 1:1 Interactionon 02-10-2021 Med Specialist Authentication Interface Message Text Normal [facility] ANTI FXA-LMW HEPARINon 02-10 ANTI FXA-LMW HEPARIN ASSAY 1.35 IU/mL Normal [facility] Comment on above: Order Comment: The r ecommended therapeutic range for treatment of thrombosis with Low Molecular Weight Heparin is 0.5 - 1.0 IU/mLThe recommended range for VTE prophylaxis with Low Molecular Weight Heparin is 0.2 - 0.4 IU/mL. Performed By: #### A XL ####S PATHOLOGY [id number] [place], BASIC METABOLIC PANELon 01-29 Anion gap [Moles/Vol] 9 mmol/L Normal 01-10 [facility] Comment on above: Performed By: #### C H8, MG ####[facility] [id number] [place], Calcium [Mass/Vol] 8.9 mg/dL Normal 8.4-10.4 [facility] Comment on above: Performed By: #### C H8, MG ####[facility] [id number] [place], Chloride [Moles/Vol] 110 mmol/L Normal 97-111 [facility] Comment on above: Performed By: #### Austyn H8, MG ####[facility] [id number] [place], CO2 [Moles/Vol] 26 mmol/L Normal 21-30 [facility] Comment on above: Performed By: #### Austyn H8, MG ####[facility] [id number] [place], Creatinine [Mass/Vol] 1.10 mg/dL Normal 0.80-1.30 [facility] Comment on above: Performed By: #### Austyn Tamez, MG ####[facility] [id number] [place], ESTIMATED GFR (CKD-EPI) 66 mL/min/1.73sqm Normal >=60 [facility] Comment on above: Performed By: #### Austyn HSajan, MG ####[facility] [id number] [place], Glucose [Mass/Vol] 128 mg/dL High 80-116 [facility] Comment on above: Performed By: #### Austyn H8, MG ####[facility] [id number] [place], Potassium [Moles/Vol] 3.7 mmol/L Normal 3.3-5.3 [facility] Comment on above: Performed By: #### Austyn H8, MG ####[facility] [id number] [place], Sodium [Moles/Vol] 141 mmol/L Normal 135-148 [facility] Comment on above: Performed By: #### Austyn H8, MG ####[facility] [id number] [place], Urea nitrogen [Mass/Vol] 17 mg/dL Normal 8-22 [facility] Comment on above: Performed By: #### Austyn H8, MG ####[facility] [id number] [place], COMPLETE BLOOD COUNTon 02-10 Erythrocyte distribution width (RBC) [Ratio] 14.0 % Normal 11.5-14.5 [facility] Comment on above: Performed By: #### C BC ####[facility] PATHOLOG[facility] [id number] [place], Hematocrit (Bld) [Volume fraction] 29.7 % Low 41.0-53.0 [facility] Comment on above: Performed By: #### C BC ####[facility] PATHOLOGY [id number] [place], Hemoglobin (Bld) [Mass/Vol] 10.1 g/dL Low 13.9-16.3 [facility] Comment on above: Performed By: #### C BC ####[facility] PATHOLOGY [id number] [place], MCH (RBC) [Entitic mass] 31.5 pg Normal 26.0-34.0 [facility] Comment on above: Performed By: #### C BC ####[facility] PATHOLOGY [id number] [place], MCHC (RBC) [Mass/Vol] 34.0 g/dL Normal 32.0-35.9 [facility] Comment on above: Performed By: #### C BC ####[facility] PATHOLOGY [id number] [place], MCV (RBC) [Entitic vol] 93 fL Normal 80-100 [facility] Comment on above: Performed By: #### C BC ####[facility] PATHOLOGY [id number] [place], Platelet mean volume (Bld) [Entitic vol] 10.6 fL Normal 7.5-11.2 [facility] Comment on above: Performed By: #### C BC ####[facility] PATHOLOGY [id number] [place], Platelets (Bld) [#/Vol] 90 10*3/uL Low 150-400 [facility] Comment on above: Performed By: #### C BC ####[facility] [id number] [place], RBC (Bld) [#/Vol] 3.20 10*6/uL Low 4.50-5.90 [facility] Comment on above: Performed By: #### C BC ####[facility] [id number] [place], WBC (Bld) [#/Vol] 6.9 10*3/uL Normal 4.5-11.5 [facility] Comment on above: Performed By: #### C BC ####S PATHOLOGY [id number] [place], Care Plan Noteon 02-10-2021 Med Specialist Authentication Interface Message Text Normal [facility] Med Specialist Authentication Interface Message Text Normal [facility] Consultson 02-10-2021 Med Specialist Authentication Interface Message Text Normal [facility] ED US FOCUSED CARDIACon 01-29 ED US FOCUSED CARDIAC Normal [facility] MAGNESIUMon 02-10-2021 Magnesium [Mass/Vol] 1.7 mg/dL Normal 1.6-2.8 [facility] Comment on above: Performed By: #### C H8, MG ####[facility] PATHOLOGY [id number] [place], Progress Noteson 02-10-2021 Med Specialist Authentication Interface Message Text Normal [facility] Med Specialist Authentication Interface Message Text Normal [facility] Med Specialist Authentication Interface Message Text Normal [facility] Treatment Plan Noteon 2020 Med Specialist Authentication Interface Message Text Normal [facility] XR CHEST AP OR PA 1 VIEWon 0 02-10-2021 XR CHEST AP OR PA 1 VIEW Normal [facility] ANTI FXA-LMW HEPARINon 02-09 ANTI FXA-LMW HEPARIN ASSAY 0.41 IU/mL Normal [facility] Comment on above: Order Comment: The r ecommended therapeutic range for treatment of thrombosis with Low Molecular Weight Heparin is 0.5 - 1.0 IU/mLThe recommended range for VTE prophylaxis with Low Molecular Weight Heparin is 0.2 - 0.4 IU/mL. Performed By: #### A XL ####[facility] [id number] [place], BASIC METABOLIC PANELon 01-29 Anion gap [Moles/Vol] 12 mmol/L Normal 5-13 [facility] Comment on above: Performed By: #### Austyn H8, MG ####[facility] [id number] [place], Calcium [Mass/Vol] 8.4 mg/dL Normal 8.4-10.4 [facility] Comment on above: Performed By: #### Austyn H8, MG ####S PATHOLOGY [id number] [place], Chloride [Moles/Vol] 114 mmol/L High 97-111 [facility] Comment on above: Performed By: #### Austyn HSajan, MG ####S PATHOLOGY [id number] [place], CO2 [Moles/Vol] 22 mmol/L Normal 21-30 [facility] Comment on above: Performed By: #### Austyn H8, MG ####S PATHOLOGY [id number] [place], Creatinine [Mass/Vol] 1.04 mg/dL Normal 0.80-1.30 [facility] Comment on above: Performed By: #### Austyn H8, MG ####S PATHOLOGY [id number] [place], ESTIMATED GFR (CKD-EPI) 70 mL/min/1.73sqm Normal >=60 [facility] Comment on above: Performed By: #### Austyn H8, MG ####S PATHOLOGY [id number] [place], Glucose [Mass/Vol] 103 mg/dL Normal 80-116 [facility] Comment on above: Performed By: #### C H8, MG ####[facility] [id number] [place], Potassium [Moles/Vol] 3.7 mmol/L Normal 3.3-5.3 [facility] Comment on above: Performed By: #### C H8, MG ####S PATHOLOGY EGUNHWVRXR7130 [place], Sodium [Moles/Vol] 144 mmol/L Normal 135-148 [facility] Comment on above: Performed By: #### C H8, MG ####S PATHOLOGY [id number] [place], Urea nitrogen [Mass/Vol] 18 mg/dL Normal 8-22 [facility] Comment on above: Performed By: #### C H8, MG ####[facility] PATHOLOG[facility] [id number] [place], COMPLETE BLOOD COUNTon 02-09 Erythrocyte distribution width (RBC) [Ratio] 14.0 % Normal 11.5-14.5 [facility] Comment on above: Performed By: #### C BC ####[facility] PATHOLOGY [id number] [place], Hematocrit (Bld) [Volume fraction] 29.9 % Low 41.0-53.0 [facility] Comment on above: Performed By: #### C BC ####[facility] PATHOLOGY [id number] [place], Hemoglobin (Bld) [Mass/Vol] 10.1 g/dL Low 13.9-16.3 [facility] Comment on above: Performed By: #### C BC ####[facility] PATHOLOGY [id number] [place], MCH (RBC) [Entitic mass] 31.7 pg Normal 26.0-34.0 [facility] Comment on above: Performed By: #### C BC ####[facility] PATHOLOGY [id number] [place], MCHC (RBC) [Mass/Vol] 33.7 g/dL Normal 32.0-35.9 [facility] Comment on above: Performed By: #### C BC ####S PATHOLOGY [id number] [place], MCV (RBC) [Entitic vol] 94 fL Normal 80-100 [facility] Comment on above: Performed By: #### C BC ####S PATHOLOGY [id number] [place], Platelet mean volume (Bld) [Entitic vol] 10.8 fL Normal 7.5-11.2 [facility] Comment on above: Performed By: #### C BC ####[facility] [id number] [place], Platelets (Bld) [#/Vol] 92 10*3/uL Low 150-400 [facility] Comment on above: Performed By: #### C BC ####S PATHOLOGY [id number] [place], RBC (Bld) [#/Vol] 3.18 10*6/uL Low 4.50-5.90 [facility] Comment on above: Performed By: #### C BC ####[facility] PATHOLOG[facility] [id number] [place], WBC (Bld) [#/Vol] 6.5 10*3/uL Normal 4.5-11.5 [facility] Comment on above: Performed By: #### C BC ####[facility] PATHOLOG[facility] [id number] [place], Care Plan Noteon 02-09-2021 Med Specialist Authentication Interface Message Text Normal [facility] Med Specialist Authentication Interface Message Text Normal [facility] Consultson 02-09-2021 Med Specialist Authentication Interface Message Text Normal [facility] MAGNESIUMon 02-09-2021 Magnesium [Mass/Vol] 2.0 mg/dL Normal 1.6-2.8 [facility] Comment on above: Performed By: #### C H8, MG ####[facility] PATHOLOG[facility] [id number] [place], Progress Noteson 02-09-2021 Med Specialist Authentication Interface Message Text Normal [facility] Med Specialist Authentication Interface Message Text Normal [facility] XR CHEST AP OR PA 1 VIEWon 0 02-09-2021 XR CHEST AP OR PA 1 VIEW Normal [facility] 1:1 Interactionon 02-08-2021 Med Specialist Authentication Interface Message Text Normal [facility] AMMONIAon 02-08-2021 AMMO 14 umol/L Normal 11-35 [facility] Comment on above: Performed By: #### A MMO ####[facility] [id number] [place], BASIC METABOLIC PANELon 01-29 Anion gap [Moles/Vol] 8 mmol/L Normal 5-13 [facility] Comment on above: Performed By: #### Austyn Tamez MG, CK ####[facility] [id number] [place], Calcium [Mass/Vol] 8.2 mg/dL Low 8.4-10.4 [facility] Comment on above: Performed By: #### Austyn Tamez MG, CK ####S PATHOLOGY [id number] [place], Chloride [Moles/Vol] 117 mmol/L High 97-111 [facility] Comment on above: Performed By: #### Austyn Tamez MG, CK ####S PATHOLOGY [id number] [place], CO2 [Moles/Vol] 22 mmol/L Normal 21-30 [facility] Comment on above: Performed By: #### Austyn Tamez MG, CK ####S PATHOLOGY [id number] [place], Creatinine [Mass/Vol] 0.99 mg/dL Normal 0.80-1.30 [facility] Comment on above: Performed By: #### Austyn Tamez, MG, CK ####[facility] [id number] [place], ESTIMATED GFR (CKD-EPI) 75 mL/min/1.73sqm Normal >=60 [facility] Comment on above: Performed By: #### Austyn Tamez MG, CK ####[facility] [id number] [place], Glucose [Mass/Vol] 93 mg/dL Normal 80-116 [facility] Comment on above: Performed By: #### Austyn Tamez MG, CK ####[facility] [id number] [place], Potassium [Moles/Vol] 3.9 mmol/L Normal 3.3-5.3 [facility] Comment on above: Performed By: #### C H8, MG, CK ####[facility] PATHOLOG[facility] [id number] [place], Sodium [Moles/Vol] 143 mmol/L Normal 135-148 [facility] Comment on above: Performed By: #### C H8, MG, CK ####[facility] PATHOLOG[facility] [id number] [place], Urea nitrogen [Mass/Vol] 17 mg/dL Normal 8-22 [facility] Comment on above: Performed By: #### C H8, MG, CK ####[facility] PATH[facility] [id number] [place], BLOOD GAS, ARTERIALon 2020 CR % O2 SAT > 99.4 Normal >=95.1 [facility] Comment on above: Performed By: #### C R BGA ####[facility] PATHOLOG[facility] [id number] [place], CR MAYCOL -3.3 mmol/L Low -2.0-2.0 [facility] Comment on above: Performed By: #### C R BGA ####[facility] PATHOLOG[facility] [id number] [place], [place] PCO2 30.3 mm Hg Low 35.0-45.0 [facility] Comment on above: Performed By: #### C R BGA ####[facility] PATHOLOG[facility] [id number] [place], [place] PHA 7.430 Normal 7.35-7.45 [facility] Comment on above: Performed By: #### C R BGA ####[facility] PATHOLOG[facility] [id number] [place], CR PO2 179 mm Hg High 80-100 mm Hg [facility] Comment on above: Performed By: #### C R BGA ####[facility] PATHOLOG[facility] [id number] [place] [address], FIO2 (CATEGORY) 5 LPM Normal [facility] Comment on above: Performed By: #### C R BGA ####[facility] [facility] [id number] [place], [place], HCO3 (Bld) [Moles/Vol] 20 mmol/L Low 22-28 Th e [facility] Comment on above: Performed By: #### C R BGA ####[facility] [id number] [place], MODE Nasal Canula Normal [facility] Comment on above: Performed By: #### C R BGA ####[facility] [id number] [place], COMPLETE BLOOD COUNTon 02-08 Erythrocyte distribution width (RBC) [Ratio] 14.3 % Normal 11.5-14.5 [facility] Comment on above: Performed By: #### C BC ####[facility] [id number] [place], Hematocrit (Bld) [Volume fraction] 31.5 % Low 41.0-53.0 [facility] Comment on above: Performed By: #### C BC ####[facility] [id number] [place], Hemoglobin (Bld) [Mass/Vol] 10.4 g/dL Low 13.9-16.3 [facility] Comment on above: Performed By: #### C BC ####[facility] [id number] [place] [address], MCH (RBC) [Entitic mass] 31.1 pg Normal 26.0-34.0 [facility] Comment on above: Performed By: #### C BC ####[facility] [id number] [place], MCHC (RBC) [Mass/Vol] 33.1 g/dL Normal 32.0-35.9 [facility] Comment on above: Performed By: #### C BC ####[facility] [id number] [place], MCV (RBC) [Entitic vol] 94 fL Normal 80-100 [facility] Comment on above: Performed By: #### C BC ####[facility] [id number] [place], Platelet mean volume (Bld) [Entitic vol] 11.0 fL Normal 7.5-11.2 [facility] Comment on above: Performed By: #### C BC ####[facility] [id number] [place], Platelets (Bld) [#/Vol] 80 10*3/uL Low 150-400 [facility] Comment on above: Performed By: #### C BC ####[facility] [id number] [place], RBC (Bld) [#/Vol] 3.34 10*6/uL Low 4.50-5.90 [facility] Comment on above: Performed By: #### C BC ####[facility] [id number] [place], WBC (Bld) [#/Vol] 6.9 10*3/uL Normal 4.5-11.5 [facility] Comment on above: Performed By: #### C BC ####[facility] [id number] [place], CREATINE KINASEon 02-08-2021 CK [Catalytic activity/Vol] 1850 U/L High 57-374 [facility] Comment on above: Performed By: #### C H8, MG, CK ####[facility] [id number] [place], CT CEREBRAL PERFUSION W/+W/O CONTRASTon 02-08-2021 CT CEREBRAL PERFUSION W/+W/O CONTRAST Normal [facility] Plan Noteon 02-08-2021 Med Specialist Authentication Interface Message Text Normal [facility] Authentication Interface Message Text Normal [facility] Consultson 02-08-2021 Med Specialist Authentication Interface Message Text Normal [facility] Specialist Authentication Interface Message Text Normal [facility] Specialist Authentication Interface Message Text Normal [facility] Med Specialist Authentication Interface Message Text Normal [facility] FULL LIPID PROFILEon 021 Cholesterol [Mass/Vol] 139 mg/dL Normal <181 Th e [facility] Comment on above: Performed By: #### H DL ####S PATHOLOGY [id number] [place], Cholesterol in LDL [Mass/Vol] 85 mg/dL Normal <111 [facility] Comment on above: Performed By: #### H DL ####S PATHOLOGY [id number] [place], Cholesterol.total/Chol esterol in HDL [Mass ratio] 3.48 {ratio} Normal [facility] Comment on above: Performed By: #### H DL ####S PATHOLOGY [id number] [place], HDL CHOL 40 mg/dL Low >44 [facility] Comment on above: Performed By: #### H DL ####S PATHOLOGY [id number] [place], LDL/HDL 2.13 Normal <3.57 [facility] Comment on above: Performed By: #### H DL ####S PATHOLOGY [id number] [place], NON-HDL CHOLESTEROL 99 mg/dL Normal <130 [facility] Comment on above: Performed By: #### H DL ####S PATHOLOGY [id number] [place], Triglyceride [Mass/Vol] 108 mg/dL Normal <151 [facility] Comment on above: Performed By: #### H DL ####S PATHOLOGY [id number] [place], MAGNESIUMon 02-08-2021 Magnesium [Mass/Vol] 1.8 mg/dL Normal 1.6-2.8 [facility] Comment on above: Performed By: #### M G ####S PATHOLOGY [id number] [place], Magnesium [Mass/Vol] 1.7 mg/dL Normal 1.6-2.8 [facility] Comment on above: Performed By: #### C H8, MG, CK ####[facility] [id number] [place], Procedureson 02-08-2021 Med Specialist Authentication Interface Message Text Normal [facility] Med Specialist Authentication Interface Message Text Normal [facility] Med Specialist Authentication Interface Message Text Normal [facility] Progress Noteson 02-08-2021 Med Specialist Authentication Interface Message Text Normal [facility] Med Specialist Authentication Interface Message Text Normal [facility] Med Specialist Authentication Interface Message Text Normal [facility] Med Specialist Authentication Interface Message Text Normal [facility] Med Specialist Authentication Interface Message Text Normal [facility] XR ABDOMEN APon 02-08-2021 XR ABDOMEN AP Normal [facility] XR CHEST AP OR PA 1 VIEWon 0 02-08-2021 XR CHEST AP OR PA 1 VIEW Normal [facility] XR CHEST AP OR PA 1 VIEW Normal [facility] 1:1 Interactionon 02-07-2021 Med Specialist Authentication Interface Message Text Normal [facility] BASIC METABOLIC PANELon 01-29 Anion gap [Moles/Vol] 11 mmol/L Normal 5-13 The [facility] Comment on above: Performed By: #### P HOS, CH8, CK, MG ####[facility] [id number] [place], Calcium [Mass/Vol] 8.1 mg/dL Low 8.4-10.4 [facility] Comment on above: Performed By: #### P HOS, CH8, CK, MG ####[facility] [id number] [place], Chloride [Moles/Vol] 119 mmol/L High 97-111 [facility] Comment on above: Performed By: #### P HOS, CH8, CK, MG ####[facility] [id number] [place], CO2 [Moles/Vol] 21 mmol/L Normal 21-30 [facility] Comment on above: Performed By: #### P HOS, CH8, CK, MG ####[facility] [id number] [place], Creatinine [Mass/Vol] 1.05 mg/dL Normal 0.80-1.30 [facility] Comment on above: Performed By: #### P HOS, CH8, CK, MG ####S PATHOLOGY [id number] [place], ESTIMATED GFR (CKD-EPI) 70 mL/min/1.73sqm Normal >=60 [facility] Comment on above: Performed By: #### P HOS, CH8, CK, MG ####S PATHOLOGY [id number] [place], Glucose [Mass/Vol] 98 mg/dL Normal 80-116 [facility] Comment on above: Performed By: #### P HOS, CH8, CK, MG ####[facility] [id number] [place], Potassium [Moles/Vol] 4.0 mmol/L Normal 3.3-5.3 [facility] Comment on above: Performed By: #### P HOS, CH8, CK, MG ####S PATHOLOGY [id number] [place], Sodium [Moles/Vol] 147 mmol/L Normal 135-148 [facility] Comment on above: Performed By: #### P HOS, CH8, CK, MG ####S PATHOLOGY [id number] [place], Urea nitrogen [Mass/Vol] 26 mg/dL High 8-22 [facility] Comment on above: Performed By: #### P HOS, CH8, CK, MG ####[facility] [id number] [place], BLOOD CULTUREon 02-07-2021 Bacteria identified Cx Nom (Bld) C BLOOD: No Growth Normal [facility] Comment on above: Order Comment: The r esults may be compromised due to inadequate volume of fluid received. A negative result does not rule out an infectious process. Performed By: #### C BLOOD ####[facility] Ezjwounkm8694 [place], [place] BLOOD GAS, ARTERIALon 2020 CR MAYCOL -4.3 mmol/L Low -2.0-2.0 [facility] Comment on above: Performed By: #### C R BGA ####[facility] [id number] [place], CR PCO2 35.1 mm Hg Normal 35.0-45.0 [facility] Comment on above: Performed By: #### C R BGA ####[facility] [id number] [place] [address], CR PHA 7.371 Normal 7.35-7.45 [facility] Comment on above: Performed By: #### C R BGA ####[facility] [id number] [place] [address], CR PO2 110 mm Hg High 80-100 mm Hg [facility] Comment on above: Performed By: #### C R BGA ####[facility] [id number] [place] [address], FIO2 (CATEGORY) 40% Normal [facility] Comment on above: Performed By: #### C R BGA ####[facility] [id number] [place] [address], HCO3 (Bld) [Moles/Vol] 20 mmol/L Low 22-28 e [facility] Comment on above: Performed By: #### C R BGA ####[facility] [id number] [place] [address], MODE Vent Normal [facility] Comment on above: Performed By: #### C R BGA ####[facility] [id number] [place] [address], Oxygen saturation in Blood 98.0 % Normal >=95.1 [facility] Comment on above: Performed By: #### C R BGA ####[facility] [id number] [place] [address], CALCIUM, IONIZEDon CR ICA 1.17 mmol/L Normal 1.10-1.40 [facility] Comment on above: Performed By: #### C R ICA, LACT ####[facility] [id number] [place] [address], COMPLETE BLOOD COUNTon 02-07 Erythrocyte distribution width (RBC) [Ratio] 14.7 % High 11.5-14.5 [facility] Comment on above: Performed By: #### C BC ####[facility] [id number] [place], Hematocrit (Bld) [Volume fraction] 33.4 % Low 41.0-53.0 [facility] Comment on above: Performed By: #### C BC ####[facility] [id number] [place] [address], Hemoglobin (Bld) [Mass/Vol] 10.7 g/dL Low 13.9-16.3 [facility] Comment on above: Performed By: #### C BC ####[facility] [id number] [place] [address], MCH (RBC) [Entitic mass] 30.2 pg Normal 26.0-34.0 [facility] Comment on above: Performed By: #### C BC ####[facility] [id number] [place] [address], MCHC (RBC) [Mass/Vol] 32.0 g/dL Normal 32.0-35.9 [facility] Comment on above: Performed By: #### C BC ####[facility] [id number] [place], MCV (RBC) [Entitic vol] 94 fL Normal 80-100 [facility] Comment on above: Performed By: #### C BC ####[facility] [id number] [place] [address], Platelet mean volume (Bld) [Entitic vol] 10.4 fL Normal 7.5-11.2 [facility] Comment on above: Performed By: #### C BC ####[facility] [id number] [place], Platelets (Bld) [#/Vol] 86 10*3/uL Low 150-400 [facility] Comment on above: Performed By: #### C BC ####[facility] [id number] [place], RBC (Bld) [#/Vol] 3.54 10*6/uL Low 4.50-5.90 [facility] Comment on above: Performed By: #### C BC ####[facility] [id number] [place], WBC (Bld) [#/Vol] 8.2 10*3/uL Normal 4.5-11.5 [facility] Comment on above: Performed By: #### C BC ####[facility] [id number] [place], Erythrocyte distribution width (RBC) [Ratio] 14.9 % High 11.5-14.5 [facility] Comment on above: Performed By: #### C BC ####[facility] [id number] [place], Hematocrit (Bld) [Volume fraction] 34.6 % Low 41.0-53.0 [facility] Comment on above: Performed By: #### C BC ####[facility] [id number] [place], Hemoglobin (Bld) [Mass/Vol] 11.5 g/dL Low 13.9-16.3 [facility] Comment on above: Performed By: #### C BC ####[facility] [id number] [place], MCH (RBC) [Entitic mass] 31.8 pg Normal 26.0-34.0 [facility] Comment on above: Performed By: #### C BC ####[facility] [id number] [place], MCHC (RBC) [Mass/Vol] 33.2 g/dL Normal 32.0-35.9 [facility] Comment on above: Performed By: #### C BC ####S PATHOLOGY [id number] [place], MCV (RBC) [Entitic vol] 96 fL Normal 80-100 [facility] Comment on above: Performed By: #### C BC ####[facility] [id number] [place], Platelet mean volume (Bld) [Entitic vol] 10.7 fL Normal 7.5-11.2 [facility] Comment on above: Performed By: #### C BC ####[facility] [id number] [place], Platelets (Bld) [#/Vol] 85 10*3/uL Low 150-400 [facility] Comment on above: Performed By: #### C BC ####[facility] [id number] [place], RBC (Bld) [#/Vol] 3.62 10*6/uL Low 4.50-5.90 [facility] Comment on above: Performed By: #### C BC ####[facility] [id number] [place], WBC (Bld) [#/Vol] 10.6 10*3/uL Normal 4.5-11.5 [facility] Comment on above: Performed By: #### C BC ####[facility] [id number] [place], CREATINE KINASEon 02-07-2021 CK [Catalytic activity/Vol] 1944 U/L High 57-374 [facility] Comment on above: Performed By: #### C K ####[facility] [id number] [place], CK [Catalytic activity/Vol] 1978 U/L High 57-374 [facility] Comment on above: Performed By: #### C K ####[facility] [id number] [place], CK [Catalytic activity/Vol] 2265 U/L High 57-374 [facility] Comment on above: Performed By: #### P HOS, CH8, CK, MG ####[facility] [id number] [place], CK [Catalytic activity/Vol] 2537 U/L High 57-374 [facility] Comment on above: Performed By: #### C K ####[facility] [id number] [place], Care Plan Noteon 02-07-2021 Med Specialist Authentication Interface Message Text Normal [facility] Consultson 02-07-2021 Med Specialist Authentication Interface Message Text Normal [facility] Med Specialist Authentication Interface Message Text Normal [facility] Med Specialist Authentication Interface Message Text Normal [facility] GLUCOSE, FINGERSTICK-IN OFFI CEon 02-07-2021 Glucose [Mass/Vol] 92 mg/dL Normal 80-116 [facility] Comment on above: Performed By: #### 8 2948 ####NURSING GLUCOSE [id number] [place], [address] Glucose [Mass/Vol] 82 mg/dL Normal 80-116 [facility] Comment on above: Performed By: #### 8 2948 ####NURSING GLUCOSE [id number] [place], [address] Glucose [Mass/Vol] 89 mg/dL Normal 80-116 [facility] Comment on above: Performed By: #### 8 2948 ####NURSING GLUCOSE JNNHLOJ1949 [place], [address] LACTIC ACIDon 02-07-2021 CR LACT 1.0 mmol/L Normal 0.5-2.0 [facility] Comment on above: Performed By: #### C R ICA, LACT ####S PATHOLOGY [id number] [place], MAGNESIUMon 02-07-2021 Magnesium [Mass/Vol] 2.0 mg/dL Normal 1.6-2.8 [facility] Comment on above: Performed By: #### P HOS, CH8, CK, MG ####S PATHOLOGY [id number] [place], NOVEL CORONAVIRUS (COVID-19) on 02-07-2021 SARS-CoV-2 (COVID-19) RNA RICK+probe Ql (Unsp spec) Not detected Normal Not Detected [facility] Comment on above: Order Comment: This test is intended for use only under Emergency Use Authorization (EUA). This test was developed, and its performance characteristics determined by [facility] which is certified under CLIA as qualified to perform high complexity clinical laboratory testing. Result Comment: This assay was performed using [employer] RTPCR technology. Performed By: #### C OVID19 ####S PATHOLOGY [id number] [place], PHOSPHORUSon 02-07-2021 Phosphate [Mass/Vol] 2.5 mg/dL Normal 2.3-4.2 [facility] Comment on above: Performed By: #### P HOS, CH8, CK, MG ####S PATHOLOGY [id number] [place], Procedureson 02-07-2021 Med Specialist Authentication Interface Message Text Normal [facility] Progress Noteson 02-07-2021 Med Specialist Authentication Interface Message Text Normal [facility] Specialist Authentication Interface Message Text Normal [facility] Med Specialist Authentication Interface Message Text Normal [facility] Med Specialist Authentication Interface Message Text Normal [facility] Med Specialist Authentication Interface Message Text Normal [facility] TOXICOLOGY SCREEN, UNCONFIRM EDon 02-07-2021 AMPH Negative Normal Negative [facility] Comment on above: Order Comment: This [...] toxicology consultation please call the laboratory at [phone]. Performed By: #### T OX SC ####[facility] [id number] [place], BARBIT Negative Normal Negative [facility] Comment on above: Order Comment: This [...] toxicology consultation please call the laboratory at [phone]. Performed By: #### T OX SC ####S PATHOLOGY [id number] [place], BENZO Positive Abnormal Negative [facility] Comment on above: Order Comment: This [...] toxicology consultation please call the laboratory at [phone]. Performed By: #### T OX SC ####S PATHOLOGY [id number] [place], COCAINE CL Negative Normal Negative [facility] Comment on above: Order Comment: This [...] toxicology consultation please call the laboratory at [phone]. Performed By: #### T OX SC ####S PATHOLOGY TAKKTDRIWL7066 [place], Ethanol [Mass/Vol] Negative Normal Cutoff: 1 0 mg/dL [facility] Comment on above: Order Comment: This [...] toxicology consultation please call the laboratory at [phone]. Performed By: #### T OX ND ####S PATHOLOGY [id number] [place], FENTANYL Positive Abnormal Negative [facility] Comment on above: Order Comment: This [...] toxicology consultation please call the laboratory at [phone]. Performed By: #### T OX ND ####S PATHOLOGY [id number] [place], HYDROCODONE (PM) Negative Normal Negative [facility] Comment on above: Order Comment: This [...] toxicology consultation please call the laboratory at [phone]. Performed By: #### T OX SC ####[facility] [id number] [place], Methadone Ql (U) Negative Normal Negative [facility] Comment on above: Order Comment: This [...] toxicology consultation please call the laboratory at [phone]. Performed By: #### T OX ND ####[facility] [id number] [place], NORBUPRENORPHINE Negative Normal Cutoff: 10 ng/mL [facility] Comment on above: Order Comment: This [...] toxicology consultation please call the laboratory at [phone]. Performed By: #### T OX ND ####[facility] [id number] [place], OPIATE Negative Normal Negative [facility] Comment on above: Order Comment: This [...] toxicology consultation please call the laboratory at [phone]. Performed By: #### T OX SC ####S PATHOLOGY [id number] [place], OXYCODONE Positive Abnormal Cutoff: 100 [facility] Comment on above: Order Comment: This [...] toxicology consultation please call the laboratory at [phone]. Result Comment: Oxyc odone and metabolites of Oxycodone (Oxymorphone, Noroxycodone, and Noroxymorphone) are measured/detected in this assay method. Performed By: #### T OX SC ####[facility] [id number] [place], PHENCYCL Negative Normal Negative [facility] Comment on above: Order Comment: This [...] toxicology consultation please call the laboratory at [phone]. Performed By: #### T OX SC ####[facility] [id number] [place], THC CL Negative Normal Negative [facility] Comment on above: Order Comment: This toxicology [...] toxicology consultation please call the laboratory at [phone]. Performed By: #### T OX ND ####[facility] [id number] [place], AMPH Negative Normal Negative [facility] Comment on above: Order Comment: This [...] toxicology consultation please call the laboratory at [phone]. Performed By: #### T OX SC ####[facility] [id number] [place], BARBIT Negative Normal Negative [facility] Comment on above: Order Comment: This [...] toxicology consultation please call the laboratory at [phone]. Performed By: #### T OX SC ####S PATHOLOGY VQSMFRIMIE9037 [place], BENZO Positive Abnormal Negative [facility] Comment on above: Order Comment: This [...] toxicology consultation please call the laboratory at [phone]. Performed By: #### T OX SC ####S PATHOLOGY [id number] [place], COCAINE CL Negative Normal Negative [facility] Comment on above: Order Comment: This [...] toxicology consultation please call the laboratory at [phone]. Performed By: #### T OX SC ####S PATHOLOGY [id number] [place], [place], Ethanol [Mass/Vol] Negative Normal Cutoff: 1 0 mg/dL [facility] Comment on above: Order Comment: This [...] toxicology consultation please call the laboratory at [phone]. Performed By: #### T OX SC ####S PATHOLOGY [id number] [place], [place], FENTANYL Positive Abnormal Negative [facility] Comment on above: Order Comment: This [...] toxicology consultation please call the laboratory at [phone]. Performed By: #### T OX SC ####S PATHOLOGY [id number] [place], HYDROCODONE (PM) Negative Normal Negative [facility] Comment on above: Order Comment: This [...] toxicology consultation please call the laboratory at [phone]. Performed By: #### T OX SC ####[facility] PATHOLOGY [id number] [place], Methadone Ql (U) Negative Normal Negative [facility] Comment on above: Order Comment: This [...] toxicology consultation please call the laboratory at [phone]. Performed By: #### T OX ND ####[facility] PATHOLOGY [id number] [place], NORBUPRENORPHINE Negative Normal Cutoff: 10 ng/mL [facility] Comment on above: Order Comment: This [...] toxicology consultation please call the laboratory at [phone]. Performed By: #### T OX ND ####[facility] PATHOLOGY [id number] [place], OPIATE Negative Normal Negative [facility] Comment on above: Order Comment: This [...] toxicology consultation please call the laboratory at [phone]. Performed By: #### T OX ND ####[facility] PATHOLOGY [id number] [place], OXYCODONE Positive Abnormal Cutoff: 100 [facility] Comment on above: Order Comment: This [...] toxicology consultation please call the laboratory at [phone]. Result Comment: Oxyc odone and metabolites of Oxycodone (Oxymorphone, Noroxycodone, and Noroxymorphone) are measured/detected in this assay method. Performed By: #### T OX SC ####[facility] PATHOLOGY [id number] [place], PHENCYCL Negative Normal Negative [facility] Comment on above: Order Comment: This [...] toxicology consultation please call the laboratory at [phone]. Performed By: #### T OX ND ####S PATHOLOGY [id number] [place], THC CL Negative Normal Negative [facility] Comment on above: Order Comment: This [...] toxicology consultation please call the laboratory at [phone]. Performed By: #### T OX SC ####[facility] PATHOLOGY [id number] [place], URINALYSISon 02-07-2021 Glucose Ql (U) Negative Normal Negative [facility] Comment on above: Order Comment: A [...] Performed By: #### u rinalysis ####S PATHOLOGY [id number] [place] [address], Protein (U) [Mass/Vol] 30 mg/dL Abnormal Negative Th [facility] Comment on above: Order Comment: A [...] around 50%) Performed By: #### u rinalysis ####[facility] PATHOLOGY [id number] [place], SQUAMOUS EPITHELIAL 0-2 Normal 0-10 [facility] Comment on above: Order Comment: A [...] around 50%) Performed By: #### u rinalysis ####[facility] PATHOLOGY [id number] [place], [place] APPEAR Hazy Normal Clear [facility] Comment on above: Order Comment: A [...] around 50%) Performed By: #### u rinalysis ####[facility] PATHOLOGY [id number] [place], [place] BILI Negative Normal Negative [facility] Comment on above: Order Comment: A [...] around 50%) Performed By: #### u rinalysis ####[facility] PATHOLOGY [id number] [place], [place] BLOOD Moderate Abnormal Negative [facility] Comment on above: Order Comment: A [...] around 50%) Performed By: #### u rinalysis ####[facility] PATHOLOGY [id number] [place], [place] COLOR Yellow Normal Yellow [facility] Comment on above: Order Comment: A [...] around 50%) Performed By: #### u rinalysis ####[facility] PATHOLOGY [id number] [place], [place] KETONE Negative Normal Negative [facility] Comment on above: Order Comment: A [...] around 50%) Performed By: #### u rinalysis ####[facility] PATHOLOGY [id number] [place], [place] LEUK Negative Normal Negative [facility] Comment on above: Order Comment: A [...] around 50%) Performed By: #### u rinalysis ####[facility] PATHOLOGY [id number] [place] [address], U MUCOUS Present Normal [facility] Comment on above: Order Comment: A [...] around 50%) Performed By: #### u rinalysis ####[facility] PATHOLOGY [id number] [place] [address], U NITRITE Negative Normal Negative [facility] Comment on above: Order Comment: A [...] around 50%) Performed By: #### u rinalysis ####[facility] PATHOLOGY [id number] [place], [place] PH 5.0 Normal 5.0-8.0 [facility] Comment on above: Order Comment: A [...] around 50%) Performed By: #### u rinalysis ####[facility] PATHOLOGY [id number] [place], U RBC 31-100 Abnormal 0-2 [facility] Comment on above: Order Comment: A [...] around 50%) Performed By: #### u rinalysis ####[facility] PATHOLOGY [id number] [place], U SG 1.045 High 1.005-1.030 [facility] Comment on above: Order Comment: A [...] around 50%) Performed By: #### u rinalysis ####[facility] PATHOLOGY [id number] [place], [place] UROBILI Negative Normal 0.1 - 1.0 [facility] Comment on above: Order Comment: A [...] around 50%) Performed By: #### u rinalysis ####[facility] PATHOLOGY [id number] [place], U WBC 3-5 Abnormal 0-2 [facility] Comment on above: Order Comment: A [...] around 50%) Performed By: #### u rinalysis ####[facility] PATHOLOGY [id number] [place], URINE MYOGLOBINon 02-07-2021 U CARLA Negative Normal Negative [facility] Comment on above: Performed By: #### U CARLA ####[facility] PATHOLOGY [id number] [place], XR ANKLE LEFTon 02-07-2021 XR ANKLE LEFT Normal [facility] XR ANKLE RIGHT 2 VIEWon 06- XR ANKLE RIGHT 2 VIEW Normal [facility] XR CHEST AP OR PA 1 VIEWon 0 02-07-2021 XR CHEST AP OR PA 1 VIEW Normal The [facility] XR CHEST AP OR PA 1 VIEW Normal [facility] BASIC METABOLIC PANELon 06-0 Anion gap [Moles/Vol] 9 mmol/L Normal 5-13 [facility] Comment on above: Performed By: #### C H8, CK, MG, HEPATIC, PHOS ####[facility] [id number] [place], Calcium [Mass/Vol] 6.5 mg/dL Low 8.4-10.4 [facility] Comment on above: Performed By: #### C H8, CK, MG, HEPATIC, PHOS ####[facility] [id number] [place], Chloride [Moles/Vol] 113 mmol/L High 97-111 [facility] Comment on above: Performed By: #### C H8, CK, MG, HEPATIC, PHOS ####[facility] [id number] [place], CO2 [Moles/Vol] 18 mmol/L Low 21-30 [facility] Comment on above: Performed By: #### C H8, CK, MG, HEPATIC, PHOS ####[facility] [id number] [place] [address], Creatinine [Mass/Vol] 0.96 mg/dL Normal 0.80-1.30 [facility] Comment on above: Performed By: #### C H8, CK, MG, HEPATIC, PHOS ####[facility] [id number] [place], ESTIMATED GFR (CKD-EPI) 78 mL/min/1.73sqm Normal >=60 [facility] Comment on above: Performed By: #### C H8, CK, MG, HEPATIC, PHOS ####[facility] [id number] [place], Glucose [Mass/Vol] 87 mg/dL Normal 80-116 [facility] Comment on above: Performed By: #### C H8, CK, MG, HEPATIC, PHOS ####[facility] [id number] [place], Potassium [Moles/Vol] 4.2 mmol/L Normal 3.3-5.3 [facility] Comment on above: Result Comment: Hemo lysis present Performed By: #### C H8, CK, MG, HEPATIC, PHOS ####[facility] PATHOLOG[facility] [id number] [place], Sodium [Moles/Vol] 136 mmol/L Normal 135-148 [facility] Comment on above: Performed By: #### C H8, CK, MG, HEPATIC, PHOS ####[facility] PATHOLOGY [id number] [place], Urea nitrogen [Mass/Vol] 26 mg/dL High 8-22 [facility] Comment on above: Performed By: #### C H8, CK, MG, HEPATIC, PHOS ####[facility] PATHOLOGY [id number] [place] [address], BLOOD GAS, ARTERIALon 2020 CR MAYCOL -4.6 mmol/L Low -2.0-2.0 [facility] Comment on above: Performed By: #### C R BGA ####[facility] PATHOLOGY [id number] [place], CR PCO2 37.3 mm Hg Normal 35.0-45.0 [facility] Comment on above: Performed By: #### C R BGA ####[facility] PATHOLOG[facility] [id number] [place], CR PHA 7.349 Low 7.35-7.45 [facility] Comment on above: Performed By: #### C R BGA ####[facility] PATHOLOGY [id number] [place], CR PO2 113 mm Hg High 80-100 mm Hg [facility] Comment on above: Performed By: #### C R BGA ####[facility] PATHOLOGY [id number] [place], FIO2 (CATEGORY) 40% Normal [facility] Comment on above: Performed By: #### C R BGA ####[facility] PATHOLOGY [id number] [place] [address], HCO3 (Bld) [Moles/Vol] 20 mmol/L Low 22-28 [facility] Comment on above: Performed By: #### C Harshad BGA ####[facility] PATHOLOGY [id number] [place] [address], MODE Vent Normal [facility] Comment on above: Result Comment: 500 x 16 +5 Performed By: #### C Harshad BGA ####[facility] PATHOLOGY [id number] [place] [address], Oxygen saturation in Blood 98.2 % Normal >=95.1 [facility] Comment on above: Performed By: #### C Harshad BGA ####[facility] PATHOLOG[facility] [id number] [place] [address], CBC WITH DIFFERENTIALon 06-0 -2020 Basophils (Bld) [#/Vol] 0.02 10*3/uL Normal 0.00-0.20 [facility] Comment on above: Performed By: #### C BCDSAT ####[facility] PATHOLOGY [id number] [place] [address], Basophils/100 WBC (Bld) 0.2 % Normal <=1.9 [facility] Comment on above: Performed By: #### C BCDSAT ####[facility] PATHOLOGY [id number] [place] [address], Eosinophils (Bld) [#/Vol] 0.00 10*3/uL Normal 0.00-0.70 [facility] Comment on above: Performed By: #### C BCDSAT ####[facility] PATHOLOGY [id number] [place] [address], Eosinophils/100 WBC (Bld) 0.0 % Low 0.1-4.0 [facility] Comment on above: Performed By: #### C BCDSAT ####[facility] PATHOLOGY [id number] [place] [address], Erythrocyte distribution width (RBC) [Ratio] 14.6 % High 11.5-14.5 [facility] Comment on above: Performed By: #### C BCDSAT ####[facility] PATHOLOGY [id number] [place], Hematocrit (Bld) [Volume fraction] 37.5 % Low 41.0-53.0 [facility] Comment on above: Performed By: #### C BCDSAT ####[facility] PATHOLOG[facility] [id number] [place], Hemoglobin (Bld) [Mass/Vol] 12.2 g/dL Low 13.9-16.3 [facility] Comment on above: Performed By: #### C BCDSAT ####[facility] PATHOLOGY [id number] [place], Lymphocytes (Bld) [#/Vol] 1.55 10*3/uL Normal 1.00-4.80 [facility] Comment on above: Performed By: #### C BCDSAT ####[facility] PATHOLOG[facility] [id number] [place], Lymphocytes/100 WBC (Bld) 12.9 % Low 24.0-44.0 [facility] Comment on above: Performed By: #### C BCDSAT ####[facility] PATHOLOG[facility] [id number] [place], MCH (RBC) [Entitic mass] 30.6 pg Normal 26.0-34.0 [facility] Comment on above: Performed By: #### C BCDSAT ####[facility] PATHOLOG[facility] [id number] [place], MCHC (RBC) [Mass/Vol] 32.5 g/dL Normal 32.0-35.9 [facility] Comment on above: Performed By: #### C BCDSAT ####[facility] PATHOLOG[facility] [id number] [place], MCV (RBC) [Entitic vol] 94 fL Normal 80-100 [facility] Comment on above: Performed By: #### C BCDSAT ####[facility] PATHOLOG[facility] [id number] [place], MONOCYTE DISTRIBUTION WIDTH 22 High <=20 [facility] Comment on above: Performed By: #### C ALEJANDROAT ####[facility] PATHOLOG[facility] [id number] [place], Monocytes (Bld) [#/Vol] 1.48 10*3/uL High 0.20-1.00 [facility] Comment on above: Performed By: #### C BCDSAT ####[facility] PATHOLOG[facility] [id number] [place], Monocytes/100 WBC (Bld) 12.4 % High 2.0-11.0 [facility] Comment on above: Performed By: #### C BCDSAT ####[facility] PATHOLOG[facility] [id number] [place], Neutrophils (Bld) [#/Vol] 8.92 10*3/uL High 1.50-8.00 [facility] Comment on above: Performed By: #### C BCDSAT ####[facility] PATHOLOG[facility] [id number] [place], Neutrophils/100 WBC (Bld) 74.5 % Normal 31.0-76.0 [facility] Comment on above: Performed By: #### C BCDSAT ####[facility] PATHOLOG[facility] [id number] [place], Platelet mean volume (Bld) [Entitic vol] 11.2 fL Normal 7.5-11.2 [facility] Comment on above: Performed By: #### C BCDSAT ####[facility] PATHOLOG[facility] [id number] [place], Platelets (Bld) [#/Vol] 96 10*3/uL Low 150-400 [facility] Comment on above: Performed By: #### C BCDSAT ####[facility] PATHOLOG[facility] [id number] [place], RBC (Bld) [#/Vol] 3.98 10*6/uL Low 4.50-5.90 [facility] Comment on above: Performed By: #### C BCDSAT ####[facility] PATHOLOG[facility] [id number] [place], WBC (Bld) [#/Vol] 12.0 10*3/uL High 4.5-11.5 [facility] Comment on above: Performed By: #### C BCDSAT ####[facility] PATHOLOGY [id number] [place] [address], COMPLETE BLOOD COUNTon 02-06 Erythrocyte distribution width (RBC) [Ratio] 14.8 % High 11.5-14.5 [facility] Comment on above: Performed By: #### C BC ####[facility] PATHOLOG[facility] [id number] [place] [address], Hematocrit (Bld) [Volume fraction] 36.9 % Low 41.0-53.0 [facility] Comment on above: Performed By: #### C BC ####[facility] PATHOLOGY [id number] [place] [address], Hemoglobin (Bld) [Mass/Vol] 12.0 g/dL Low 13.9-16.3 [facility] Comment on above: Performed By: #### C BC ####[facility] PATHOLOG[facility] [id number] [place] [address], MCH (RBC) [Entitic mass] 30.5 pg Normal 26.0-34.0 [facility] Comment on above: Performed By: #### C BC ####[facility] PATHOLOGY [id number] [place] [address], MCHC (RBC) [Mass/Vol] 32.4 g/dL Normal 32.0-35.9 [facility] Comment on above: Performed By: #### C BC ####[facility] PATHOLOGY [id number] [place] [address], MCV (RBC) [Entitic vol] 94 fL Normal 80-100 [facility] Comment on above: Performed By: #### C BC ####[facility] PATHOLOG[facility] [id number] [place] [address], Platelet mean volume (Bld) [Entitic vol] 10.5 fL Normal 7.5-11.2 [facility] Comment on above: Performed By: #### C BC ####[facility] PATHOLOG[facility] [id number] [place] [address], Platelets (Bld) [#/Vol] 100 10*3/uL Low 150-400 [facility] Comment on above: Performed By: #### C BC ####[facility] [id number] [place], RBC (Bld) [#/Vol] 3.92 10*6/uL Low 4.50-5.90 [facility] Comment on above: Performed By: #### C BC ####[facility] PATH[facility] [id number] [place], WBC (Bld) [#/Vol] 12.6 10*3/uL High 4.5-11.5 [facility] Comment on above: Performed By: #### C BC ####[facility] PATH[facility] [id number] [place], CREATINE KINASEon 02-06-2021 CK [Catalytic activity/Vol] 1957 U/L High 57-374 [facility] Comment on above: Performed By: #### C H8, CK, MG, HEPATIC, PHOS ####[facility] PATH[facility] [id number] [place], CT C-SPINE W/O CONTRASTon CT C-SPINE W/O CONTRAST Normal [facility] CTA HEAD/NECK W/+W/O CONTRAS Ton 02-06-2021 CTA HEAD/NECK W/+W/O CONTRAST Normal [facility] Consultson 02-06-2021 Med Specialist Authentication Interface Message Text Normal [facility] ED Provider Noteson 02-07-20 Med Specialist Authentication Interface Message Text Normal [facility] ED Triage Noteson 02-06-2021 Med Specialist Authentication Interface Message Text 75M, found down, unresponsive Normal [facility] ETHANOL, SERUMon 02-06-2021 ETHANOL Normal None Detected [facility] Comment on above: Result Comment: Karyna sly hemolyzed, result is invalid.This is a corrected result. Previous result on 02/06/2021 at 1508 EDT was <5 mg/dL Performed By: #### E TOMAS ####S PATHOLOGY [id number] [place], GLUCOSE, FINGERSTICK-IN OFFI CEon 02-06-2021 Glucose [Mass/Vol] 97 mg/dL Normal 80-116 [facility] Comment on above: Performed By: #### 8 2948 ####NURSING GLUCOSE [id number] [place], [address] Glucose [Mass/Vol] 108 mg/dL Normal 80-116 [facility] Comment on above: Performed By: #### 8 2948 ####NURSING GLUCOSE [id number] [place], [address] H AND Martin 02-06-2021 Med Specialist Authentication Interface Message Text Normal [facility] HEPATIC FUNCTION PANELon Albumin [Mass/Vol] 2.4 g/dL Low 3.4-5.1 [facility] Comment on above: Performed By: #### C H8, CK, MG, HEPATIC, PHOS ####[facility] [id number] [place] [address], ALK 27 IU/L Low 40-200 [facility] Comment on above: Performed By: #### C H8, CK, MG, HEPATIC, PHOS ####[facility] [id number] [place], ALT [Catalytic activity/Vol] 20 U/L Normal 7-40 [facility] Comment on above: Performed By: #### C H8, CK, MG, HEPATIC, PHOS ####[facility] [id number] [place], AST [Catalytic activity/Vol] 48 U/L High 7-40 [facility] Comment on above: Result Comment: Hemo lysis present Performed By: #### C H8, CK, MG, HEPATIC, PHOS ####[facility] [id number] [place], Bilirubin [Mass/Vol] 1.3 mg/dL Normal 0.1-1.5 [facility] Comment on above: Performed By: #### C H8, CK, MG, HEPATIC, PHOS ####[facility] [id number] [place], Bilirubin.direct [Mass/Vol] 0.20 mg/dL Normal 0.10-0.30 [facility] Comment on above: Performed By: #### C H8, CK, MG, HEPATIC, PHOS ####[facility] [id number] [place], Protein [Mass/Vol] 3.8 g/dL Low 5.7-8.1 [facility] Comment on above: Performed By: #### C H8, CK, MG, HEPATIC, PHOS ####[facility] [id number] [place], LACTIC ACIDon 02-06-2021 CR LACT 0.9 mmol/L Normal 0.5-2.0 [facility] Comment on above: Performed By: #### L ACT ####[facility] PATHOLOG[facility] [id number] [place] [address], CR LACT 2.8 mmol/L High 0.5-2.0 [facility] Comment on above: Performed By: #### L ACT ####[facility] PATHOLOG[facility] [id number] [place] [address], MAGNESIUMon 02-06-2021 Magnesium [Mass/Vol] 2.2 mg/dL Normal 1.6-2.8 [facility] Comment on above: Result Comment: Hemo lysis present Performed By: #### C H8, CK, MG, HEPATIC, PHOS ####[facility] [id number] [place], PARTIAL THROMBOPLASTIN TIMEo n 02-06-2021 aPTT Coag (Bld) [Time] 28 s Normal 25-37 Th e [facility] Comment on above: Performed By: #### A PTT, PT ####[facility] PATH[facility] [id number] [place] [address], PHOSPHORUSon 02-06-2021 Phosphate [Mass/Vol] 2.4 mg/dL Normal 2.3-4.2 [facility] Comment on above: Performed By: #### C H8, CK, MG, HEPATIC, PHOS ####[facility] [id number] [place], PROTHROMBIN TIME AND INRon 0 02-06-2021 INR Coag (PPP) [Relative time] 1.27 {INR} High 0.90-1.10 [facility] Comment on above: Performed By: #### A PTT, PT ####[facility] [id number] [place], PT Coag (PPP) [Time] 14.3 s High 9.7-12.9 [facility] Comment on above: Performed By: #### A PTT, PT ####[facility] [id number] [place] [address], Progress Noteson 02-06-2021 Med Specialist Authentication Interface Message Text Normal [facility] Specialist Authentication Interface Message Text Normal [facility] Med Specialist Authentication Interface Message Text Normal [facility] TROPONIN Ion 02-06-2021 TROP I 0.102 ng/mL Normal <0.120 [facility] Comment on above: Result Comment: Rang [...] By: #### T ROP I ####S PATHOLOGY [id number] [place], TYPE AND SCREENon 02-06-2021 ABO and Rh group Nom (Bld) Blood group A Rh(D) positive Normal [facility] Comment on above: Performed By: #### T S ####S PATHOLOGY [id number] [place], ABO and Rh group Nom (Bld) No Previous Results Normal [facility] Comment on above: Performed By: #### T S ####S PATHOLOGY [id number] [place] [address], ABSC INT Negative Normal [facility] Comment on above: Performed By: #### T S ####[facility] [id number] [facility] [place], [address] XR ANKLE LEFTon 02-06-2021 XR ANKLE LEFT [...] TIBIA RIGHT Normal [facility] Dermatopathologyon [address] [facility] Dermatopathology Laboratory [address] [place] [phone] DERMATOPATHOLOGY REPORT Name:KEI ACUNA [facility]. Rec #. [id number] Location: [facility] Date of Procedure: 04/05/2020 Race: Date Received: 04/09/2020 /Sex: 1945 (Age: 74) / M Date Reported: 04/10/2020 Other: Submitting Physician:VICTORINA WILKS MD FINAL DIAGNOSIS SKIN, L CHEEK, BIOPSY: ACTINIC KERATOSIS WITH ADNEXAL INVOLVEMENT, PRESENT ON THE DEEP AND PERIPHERAL MARGIN. Electronically Signed Out by BROCK OTT M.D. Electronically Signed Out By BROCK OTT MD/[facility] By the signature on this report, the individual or group listed as making the Final Interpretation/Diagno sis certifies that they have reviewed this case. Clinical History: 1.0x0.8cm AK vs. SCC. Biopsy. Specimens Submitted As: A: SKIN, L CHEEK Gross Description: Received in formalin is a huang piece of skin measuring [id number]. The specimen is inked and embedded in [...] The dermis shows elastotic actinic damage. Normal [facility] Comment on above: Performed By: #### D #### Dermatopathology Vital Signs Date Time Vital Sign Value Performing Clinician Faci lity 11-10-2024 13:07-0400 Body mass index (BMI) [Ratio] 29.01 kg/m2 Jake Ireland Triond Work Phone: [facility] 11-10-2024 13:07-0400 Body weight 94.35 kg Jake Ireland Triond Work Phone: [facility] 11-10-2024 13:07-0400 Diastolic blood pressure 68 mm[Hg] Jake Ireland Triond Work Phone: [facility] 11-10-2024 13:07-0400 Heart rate 54 /min Jake Ireland Triond Work Phone: [facility] 11-10-2024 13:07-0400 SaO2% (BldA) [Mass fraction] 94 % Jake Ireland Triond Work Phone: [facility] 11-10-2024 13:07-0400 Systolic blood pressure 124 mm[Hg] Jake Ireland Triond Work Phone: [facility] 08-11-2024 14:46-0500 Body mass index (BMI) [Ratio] 28.73 kg/m2 Jake Ireland Triond Work Phone: [facility] 08-11-2024 14:46-0500 Body weight 93.44 kg Jake Ireland Triond Work Phone: [facility] 08-11-2024 14:46-0500 Diastolic blood pressure 58 mm[Hg] Jake Ireland Triond Work Phone: [facility] 08-11-2024 14:46-0500 Heart rate 58 /min Jake Ireland DO Work Phone: [facility] 08-11-2024 14:46-0500 SaO2% (BldA) [Mass fraction] 94 % Jake Ireland DO Work Phone: [facility] 08-11-2024 14:46-0500 Systolic blood pressure 108 mm[Hg] Jake Ireland DO Work Phone: [facility] 08-04-2024 13:00-0500 Body height 180.3 cm Gigi Yu DPM Work Phone: [facility] 08-04-2024 13:00-0500 Body mass index (BMI) [Ratio] 29.99 kg/m2 Gigi Yu DPM Work Phone: [facility] 08-04-2024 13:00-0500 Body weight 97.52 kg Gigi Yu DPM Work Phone: [facility] 08-04-2024 13:00-0500 Respiratory rate 18 /min Gigi Yu DPM Work Phone: [facility] 07-14-2024 14:53-0500 Body mass index (BMI) [Ratio] 29.99 kg/m2 Thomas Damico MANUFACTURING INSPECTOR Work Phone: [facility] 07-14-2024 14:53-0500 Body weight 97.52 kg Thomas Damico MANUFACTURING INSPECTOR Work Phone: [facility] 07-14-2024 14:53-0500 Diastolic blood pressure 76 mm[Hg] Thomas Damico MANUFACTURING INSPECTOR Work Phone: [facility] 07-14-2024 14:53-0500 Heart rate 74 /min Thomas Damico MANUFACTURING INSPECTOR Work Phone: [facility] 07-14-2024 14:53-0500 SaO2% (BldA) [Mass fraction] 97 % Thomas Damico MANUFACTURING INSPECTOR Work Phone: [facility] 07-14-2024 14:53-0500 Systolic blood pressure 132 mm[Hg] Thomas Damico MANUFACTURING INSPECTOR Work Phone: [facility] 07-07-2024 15:25-0500 Body height 180.3 cm Jake Ireland DO Work Phone: [facility] 07-07-2024 15:25-0500 Body mass index (BMI) [Ratio] 30.68 kg/m2 Jake Ireland DO Work Phone: [facility] 07-07-2024 15:25-0500 Body weight 99.79 kg Jake Ireland DO Work Phone: [facility] 07-07-2024 15:25-0500 Diastolic blood pressure 80 mm[Hg] Jake Ireland DO Work Phone: [facility] 07-07-2024 15:25-0500 Heart rate 68 /min Jake Ireland DO Work Phone: [facility] 07-07-2024 15:25-0500 SaO2% (BldA) [Mass fraction] 95 % Jake Ireland DO Work Phone: [facility] 07-07-2024 15:25-0500 Systolic blood pressure 150 mm[Hg] Jake Ireland DO Work Phone: [facility] 05-19-2024 13:27-0400 Body height 180.3 cm Gigi Yu DPM Work Phone: [facility] 05-19-2024 13:27-0400 Body mass index (BMI) [Ratio] 29.43 kg/m2 Gigi Yu DPM Work Phone: [facility] 05-19-2024 13:27-0400 Body weight 95.71 kg Gigi Yu DPM Work Phone: [facility] 05-19-2024 13:27-0400 Diastolic blood pressure 80 mm[Hg] Gigi Yu DPM Work Phone: [facility] 05-19-2024 13:27-0400 Heart rate 75 /min Gigi Yu DPM Work Phone: [facility] 05-19-2024 13:27-0400 Respiratory rate 18 /min Gigi Yu DPM Work Phone: [facility] 05-19-2024 13:27-0400 Systolic blood pressure 120 mm[Hg] Gigi Yu DPM Work Phone: [facility] 04-25-2024 15:04-0400 Body mass index (BMI) [Ratio] 29.53 kg/m2 Jake Ireland DO Work Phone: [facility] 04-25-2024 15:04-0400 Body weight 96.03 kg Jake Ireland DO Work Phone: [facility] 04-25-2024 15:04-0400 Diastolic blood pressure 60 mm[Hg] Jake Ireland DO Work Phone: [facility] 04-25-2024 15:04-0400 Heart rate 103 /min Jake Ireland DO Work Phone: [facility] 04-25-2024 15:04-0400 SaO2% (BldA) [Mass fraction] 96 % Jake Ireland DO Work Phone: [facility] 04-25-2024 15:04-0400 Systolic blood pressure 100 mm[Hg] Jake Ireland DO Work Phone: [facility] 10-15-2023 13:16-0500 Body height 180.3 cm Gigi Yu DPM Work Phone: [facility] 10-15-2023 13:16-0500 Body mass index (BMI) [Ratio] 29.57 kg/m2 Gigi Yu DPM Work Phone: [facility] 10-15-2023 13:16-0500 Body weight 96.16 kg Gigi Yu DPM Work Phone: [facility] 10-15-2023 13:16-0500 Diastolic blood pressure 81 mm[Hg] Gigi Yu DPM Work Phone: [facility] 10-15-2023 13:16-0500 Heart rate 88 /min Gigi Yu DPM Work Phone: [facility] 10-15-2023 13:16-0500 Systolic blood pressure 130 mm[Hg] Gigi Yu DPM Work Phone: [facility] Encounters Encounter Date Encounter Type Care Provider Facility Start: 11-10-2024 End: 11-10-2024 Office outpatient visit 40 minutes Jake Ireland DO Work Phone: [facility] Comment on above: 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 (CMS/HCC) (Primary Dx); ASD (atrial septal defect); Atherosclerosis of coronary artery of [place] heart without angina pectoris, unspecified vessel or lesion type (CMS/HCC); Paroxysmal atrial fibrillation (CMS/HCC); Peripheral vascular disease ([facility]/HCC); Essential hypertension ([facility]/HCC); Hypothyroidism (acquired) ([facility]); Hypercoagulable state (CMS/HCC); Mixed hyperlipidemia ([facility]/HCC); Hyperuricemia; Chronic kidney disease, stage 3b (HCC) ([facility]); Chronic pain syndrome Start: 11-08-2024 End: 11-08-2024 Clinisync Result Encounter Thomas Damico NP Work Phone: [facility] External Department Unsolicited Start: 11-08-2024 End: 11-08-2024 Clinisync Result Encounter Thomas Damico NP Work Phone: [facility] External Department Unsolicited Start: 10-18-2024 End: 10-18-2024 ambulatory Meghana Lees CERAMIC MAKER DEMONSTRATOR Work Phone: [facility] Start: 09-20-2024 End: 09-20-2024 Refill Isa Pelaez LPN [facility] Comment on above: Chronic pain syndrom e Start: 09-05-2024 End: 09-06-2024 Refill Thomas Damico NP Work Phone: [facility] Comment on above: Hypothyroidism (acqu ired) ([facility]/HCC) 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) (CMS/HCC) Start: 09-03-2024 End: 09-05-2024 Refill Thomas Damico MANUFACTURING INSPECTOR Work Phone: [facility] Comment on above: 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) ([facility]/HCC) Start: 08-19-2024 End: 08-19-2024 Refill Denisse Knowles PEG [facility] Comment on above: Chronic pain syndrom e Start: 08-18-2024 End: 08-18-2024 Orders Only aJke Ireland DO Work Phone: [facility] Comment on above: Chronic pain syndrom e Start: 08-11-2024 End: 08-11-2024 Office outpatient visit 40 minutes Jake Ireland DO Work Phone: [facility] Comment on above: 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, NYHA class 2 ([facility]/HCC) (Primary Dx); Paroxysmal atrial fibrillation ([facility]/HCC); 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); Thrombocytopenia, unspecified ([facility]/HCC); Chronic pain syndrome; Essential hypertension ([facility]/HCC); Mixed hyperlipidemia ([facility]/HCC); Hypothyroidism (acquired) ([facility]); Prostate cancer screening Start: 08-11-2024 End: 08-11-2024 ambulatory JAKE IRELAND Not Available Start: 08-11-2024 End: 08-11-2024 Refill Thomas Damico MANUFACTURING INSPECTOR Work Phone: [facility] Comment on above: Hypothyroidism (acqu ired) ([facility]/HCC) Start: 08-04-2024 End: 08-04-2024 Bamboo flowsheet Gigi Yu DPM Work Phone: [facility] Start: 08-04-2024 End: 08-04-2024 Bamboo flowsheet Gigi Yu DPM Work Phone: [facility] Start: 08-04-2024 End: 08-04-2024 Office outpatient visit 10 minutes Gigi Yu DPM Work Phone: [facility] Comment on above: Contusion of left fo ot, initial encounter (Primary Dx); Verruca plantaris; Foot pain, left; Other polyneuropathy; Onychomycosis; Toe pain, right; Toe pain, left; DJD (degenerative joint disease), ankle and foot, left Start: 08-04-2024 End: 08-04-2024 ambulatory GIGI YU Not Available Start: 07-21-2024 End: 07-21-2024 Dougie Doll RN Work Phone: [facility] Comment on above: Chronic pain syndrom e Start: 07-18-2024 End: 07-18-2024 ambulatory [facility] Start: 07-14-2024 End: 07-14-2024 Office outpatient visit 25 minutes Thomas Damico NP Work Phone: [facility] Comment on above: Hypothyroidism (acqu ired) (CMS/HCC) (Primary Dx); Bilateral leg edema; Chronic combined systolic and diastolic congestive heart failure, NYHA class 2 (CMS/HCC); Essential hypertension (CMS/HCC); Paroxysmal atrial fibrillation (CMS/HCC); Chronic obstructive pulmonary disease, unspecified COPD type (CMS/HCC); Dermatitis Start: 07-14-2024 End: 07-14-2024 ambulatory JAKE IRELAND Not Available Start: 07-14-2024 End: 07-14-2024 Clinisync Result Encounter Jake Ireland DO Work Phone: [facility] External Department Unsolicited Start: 07-14-2024 End: 07-14-2024 Clinisync Result Encounter Jake Ireland DO Work Phone: [facility] External Department Unsolicited Start: 07-07-2024 End: 07-07-2024 Office outpatient visit 40 minutes Jake Ireland DO Work Phone: [facility] Comment on above: 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, NYHA class 2 (CMS/HCC) (Primary Dx); Atherosclerosis of coronary artery of [place] heart without angina pectoris, unspecified vessel or lesion type (CMS/HCC); Essential hypertension (CMS/HCC); Paroxysmal atrial fibrillation (CMS/HCC); Peripheral vascular disease (CMS/HCC); ASD (atrial septal defect); Hyperuricemia; Chronic obstructive pulmonary disease, unspecified COPD type ([facility]/HCC); Chronic pain syndrome Start: 07-07-2024 End: 07-07-2024 ambulatory JAKE IRELAND Not Available Start: 07-04-2024 ambulatory [facility] Start: 07-04-2024 End: 07-04-2024 [facility] Start: 06-22-2024 End: 06-22-2024 ambulatory Meghana Lees CERAMIC MAKER DEMONSTRATOR Work Phone: [facility] Start: 06-03-2024 End: 06-03-2024 ambulatory [facility] Start: 05-20-2024 End: 05-23-2024 Refill Jake Ireland DO Work Phone: [facility] Comment on above: Essential hypertensi on ([facility]/HCC) Start: 05-19-2024 End: 05-19-2024 Office outpatient visit 15 minutes Gigi Yu DPM Work Phone: [facility] Comment on above: Contusion of left fo ot, initial encounter (Primary Dx); DJD (degenerative joint disease), ankle and foot, left; Verruca plantaris; Foot pain, left; Onychomycosis; Toe pain, bilateral; Other polyneuropathy Start: 05-19-2024 End: 05-19-2024 ambulatory GIGI YU [facility] Comment on above: Chronic pain syndrom e Start: 05-09-2024 End: 05-09-2024 ambulatory [facility] Start: 04-25-2024 End: 04-25-2024 Office outpatient visit 25 minutes Jake Ireland DO Work Phone: [facility] Comment on above: Chronic pain syndrom e (Primary Dx); Chronic obstructive pulmonary disease, unspecified COPD type (CMS/HCC); Essential hypertension (CMS/HCC); Atherosclerosis of coronary artery of [place] heart without angina pectoris, unspecified vessel or lesion type (CMS/HCC); Chronic combined systolic and diastolic congestive heart failure, NYHA class 2 ([facility]); Elevated prostate specific antigen (PSA); Hypercoagulable state ([facility]); Mixed hyperlipidemia ([facility]); Hyperuricemia; Peripheral vascular disease ([facility]) Start: 04-25-2024 End: 04-25-2024 ambulatory JAKE IRELAND [facility] Comment on above: Chronic pain syndrom e Chronic pain syndrom e; Chronic obstructive pulmonary disease, unspecified COPD type ([facility]) Start: 04-05-2024 End: 04-05-2024 ambulatory THOMAS DAMICO Not Available Start: 03-10-2024 End: 03-10-2024 ambulatory GIGI YU Not Available Start: 02-24-2024 End: 02-24-2024 ambulatory JUAN RAMON FERRARA Not Available Start: 02-11-2024 End: 02-11-2024 ambulatory GIGI YU Not Available Start: 12-31-2023 End: 12-31-2023 ambulatory JAKE IRELAND Not Available Start: 12-24-2023 End: 12-24-2023 ambulatory GIGI YU Not Available Start: 11-30-2023 End: 12-01-2023 ambulatory THOMAS DAMICO Facility:[facility] Start: 11-30-2023 End: 11-30-2023 Patient encounter procedure Lincoln MATTHEWS [facility] Start: 10-15-2023 Chart abstracting Gigi husain DPM Work Phone: [facility] Start: 10-15-2023 End: 10-15-2023 Office outpatient visit 15 minutes Gigi Yu DPM Work Phone: [facility] Comment on above: Venous insufficiency (Primary Dx); Other polyneuropathy; Onychomycosis; Toe pain, right; Toe pain, left; DJD (degenerative joint disease), ankle and foot, left Start: 10-15-2023 End: 10-15-2023 ambulatory GIGI YU Not Available Start: 09-17-2023 ambulatory THOMAS DAMICO Facility :[facility] Start: 09-10-2023 End: 09-10-2023 ambulatory JAKE IRELAND Not Available Start: 02-12-2023 End: 09-10-2023 Patient encounter procedure Gigi Yu DPM Work Phone: [facility] Start: 11-10-2022 End: 11-11-[address] JAKE [...] Start: 02-06-2021 End: 02-06-2021 ambulatory UNKNOWN PROVIDER Facility:[facility] Procedures Date Procedure Procedure Detail Performing Clinician Start: 11-08-2024 ALL CBC WITH AUTO DIFF Thomas Damico MANUFACTURING INSPECTOR Work Phone: Start: 08-11-2024 Comprehensive metabo lic panel Thomas Damico MANUFACTURING INSPECTOR Work Phone: Start: 08-11-2024 Lipid panel Thomas Damico MANUFACTURING INSPECTOR Work Phone: Start: 08-11-2024 Urine albumin quantitative Thomas Damico MANUFACTURING INSPECTOR Work Phone: Start: 07-14-2024 ALL CBC WITH AUTO DIFF Jake Steph Shu DO Work Phone: Start: 07-14-2024 ALL MAGNESIUM Jake Steph VargasShu DO Work Phone: Start: 07-14-2024 ALL T3 FREE Jake Steph Shu DO Work Phone: Start: 07-14-2024 ALL THYROID STIM HORMONE Jake Ireland DO Work Phone: Start: 07-14-2024 ALL THYROXINE (T4) FREE Jake Steph Shu DO Work Phone: Start: 07-14-2024 ALL URIC ACID Jake Steph VargasShu DO Work Phone: Start: 07-14-2024 [facility] CMP (CMP) (FOR [facility] USE) Jake Choi Shu DO Work Phone: Start: 07-08-[address] RADHA IRELAND Comment on above: Performed By: #### P LORENZO, PEYTON, FETIBC #### [facility] [address] [place] [address] Dr. Karen Marie Colonoscopy Lincoln MATTHEWS Extraction of cataract Adam MATTHEWS Comment on above: Bilateral Eye Surgery Lincoln MATTHEWS Hernia repair Lincoln MATTHEWS Tonsillectomy Lincoln MATTHEWS Plan of Treatment Date Care Activity Detail Author Start: 04-05-2025 Medicare Annual Wellness (AWV) Medicare Annual Wellness (AWV) [facility] Start: 12-13-2024 End: 12-13-2024 Patient encounter procedure 12/13/2024 1:00 PM EDT Office Visit [facility] [address] [place] [phone] Aristides Garcia, DO [address] [place] [address] [facility] Start: 11-17-2024 End: 11-17-2024 Patient encounter procedure 11/17/2024 1:20 PM EDT Procedure Visit [facility] [address] [place] [address] Gigi Yu, DPM [address] [address] [facility] Start: 11-10-2024 End: 11-10-2024 Patient encounter procedure 11/10/2024 1:00 PM EDT Office Visit [facility] [address] [place] [phone] Jake Ireland, DO [address] [place] [address] [facility] Start: 10-27-2024 End: 10-27-2024 Patient encounter procedure 10/27/2024 1:20 PM EST Procedure Visit [facility] [address] [place] [address] Gigi Yu, DPM [address] [address] [facility] Start: 10-13-2024 End: 10-13-2024 Patient encounter procedure 10/13/2024 1:30 PM EST Procedure Visit [facility] [address] [place] [address] Gigi Yu DPM [address] [address] [facility] Start: 09-12-2024 End: 09-12-2024 Patient encounter procedure 09/12/2024 1:45 PM EST [facility] [address] [place] [phone] Jake Ireland, DO [address] [place] [address] [facility] Start: 08-11-2024 End: 08-11-2024 Patient encounter procedure 08/11/2024 3:00 PM EST Office Visit [facility] [address] [place] [phone] Jake Ireland, DO [address] [place] [address] [facility] Start: 08-04-2024 End: 07-14-2025 Basic metabolic 1998 panel - Serum or Plasma Basic metabolic panel Lab Routine Bilateral leg edema Chronic combined systolic and diastolic congestive heart failure, NYHA class 2 (CMS/HCC) Essential hypertension (CMS/HCC) Paroxysmal atrial fibrillation (CMS/HCC) Hypothyroidism (acquired) (CMS/HCC) Chronic obstructive pulmonary disease, unspecified COPD type (CMS/HCC) Expected: 08/04/2024 (Approximate), Expires: 07/14/2025 [facility] Work Phone: Comment on above: Expected: 08/04/2024 (Approximate), Expires: 07/14/2025 Start: 08-04-2024 End: 08-04-2024 Patient encounter procedure [facility] Comment on above: Verruca plantaris (P rimary Dx); Foot pain, left; Other polyneuropathy; Onychomycosis; Toe pain, right; Toe pain, left; DJD (degenerative joint disease), ankle and foot, left; Contusion of left foot, initial encounter Start: 07-26-2024 End: 10-26-2024 CBC panel - Blood by Automated count CBC Lab Routine Essential hypertension (CMS/HCC) Expected: 07/26/2024 (Approximate), Expires: 10/26/2024 [facility] Work Phone: Comment on above: Expected: 07/26/2024 (Approximate), Expires: 10/26/2024 Start: 07-26-2024 End: 10-26-2024 Comprehensive metabolic 2000 panel - Serum or Plasma Comprehensive metabolic panel Lab Routine Essential hypertension (CMS/HCC) Mixed hyperlipidemia (CMS/HCC) Hyperuricemia Peripheral vascular disease (CMS/HCC) Expected: 07/26/2024 (Approximate), Expires: 10/26/2024 [facility] Comment on above: Expected: 07/26/2024 (Approximate), Expires: 10/26/2024 Start: 07-26-2024 End: 10-26-2024 Lipid 1996 panel - Serum or Plasma Lipid panel Lab Routine Mixed hyperlipidemia (CMS/HCC) Expected: 07/26/2024 (Approximate), Expires: 10/26/2024 [facility] Comment on above: Expected: 07/26/2024 (Approximate), Expires: 10/26/2024 Start: 07-26-2024 End: 10-26-2024 Thyrotropin [Units/volume] in Serum or Plasma TSH Lab Routine Chronic pain syndrome Chronic obstructive pulmonary disease, unspecified COPD type (CMS/HCC) Essential hypertension (CMS/HCC) Atherosclerosis of coronary artery of [place] heart without angina pectoris, unspecified vessel or lesion type (CMS/HCC) Chronic combined systolic and diastolic congestive heart failure, NYHA class 2 (CMS/HCC) Elevated prostate specific antigen (PSA) Hypercoagulable state (CMS/HCC) Mixed hyperlipidemia (CMS/HCC) Hyperuricemia Peripheral vascular disease (CMS/HCC) Expected: 07/26/2024 (Approximate), Expires: 10/26/2024 [facility] Comment on above: Expected: 07/26/2024 (Approximate), Expires: 10/26/2024 Start: 07-07-2024 End: 07-07-2024 Patient encounter procedure 07/07/2024 3:00 PM EST Office Visit [facility] [address] [place] [address] Jake Ireland DO [address] [place] [address] [facility] Start: 05-19-2024 End: 05-19-2024 Patient encounter procedure 05/19/2024 1:50 PM EDT Procedure Visit [facility] [address] [place] [phone] Gigi Yu DPM [address] [facility] [address] [place] [address] [facility] Start: 05-01-2024 Influenza vaccination Influenza Vacc ine (#1) [facility] Start: 04-25-2024 End: 04-25-2024 Patient encounter procedure 04/25/2024 2:45 PM EDT Office Visit [facility] [address] [place] [address] Jake Ireland, [address] [place] [address] [facility] Start: 02-13-2024 Medicare Annual Wellness (AWV) Medicare Annual Wellness (AWV) [facility] Start: 12-31-2023 End: 12-31-2023 Patient encounter procedure 12/31/2023 11:15 AM EDT Office Visit [facility] [address] [place] [address] Jake Ireland, [address] [place] [address] [facility] Start: 10-15-2023 End: 10-15-2023 Patient encounter procedure 10/15/2023 1:30 PM EST Procedure Visit [facility] [address] [place] [id number] Gigi Yu DPM [address] [facility] [address] [place] [address] [facility] Basic metabolic 1998 panel - Serum or Plasma Basic metabolic panel Lab Routine Bilateral leg edema Essential hypertension (CMS/HCC) Ordered: 07/14/2024 [facility] Work Phone: Comment on above: Ordered: 07/14/2024 Immunizations Immunization Date Immunization Notes Care Provider Carlita butt 06-12-2024 influenza, high dose seasonal, preservative-free Jake Ireland DO Work Phone: [facility] 04-05-2024 Pneumococcal Conjuga te PCV 20 Anamaria Doll RN Work Phone: [facility] 08-18-2023 Pneumococcal Conjuga te PCV 20 Gigi Yu DPM Work Phone: [facility] 05-11-2023 Influenza, Seasonal, Quadrivalent, Adjuvanted Gigi Yu DPM Work Phone: [facility] 05-11-2023 influenza virus vacc ine, unspecified formulation Anamaria Doll RN Work Phone: [facility] 10-03-2020 Pfizer Purple Cap SARS-CoV-2 Vaccination Anamaria Doll RN Work Phone: [facility] 05-06-2016 pneumococcal conjuga te vaccine, 13 valent Anamaria Doll RN Work Phone: [facility] 02-23-2015 pneumococcal polysaccharide vaccine, 23 valent Anamaria Doll RN Work Phone: [facility] Payers Date Payer Category Payer Medicare [employer] ADVANTAGE [employer]AGE [id number] 2019-Present [address] [place] [address] [id number] 2019 Medicare (Managed Care) [facility] [id number] 2018 Medicaid [id number]. [id number] 1959 Medicaid [id number] 1959 Medicare [id number] 1945 Unknown [id number] 2.16.840.1.066996.3.579.2. 73 1946 Unknown [id number] 2.16.840.1.419819.3.579.2. 73 1946 Unknown [id number] 2.16.840.1.374506.3.579.2. 73 1946 Unknown [id number] 2.16.840.1.420596.3.579.2. 73 1946 Unknown [id number] 2.16.840.1.156018.3.579.2. 73 1946 Unknown [id number] 2.16.840.1.051089.3.579.2. 73 1946 Unknown [id number] 2.16.840.1.790280.3.579.2. 73 1946 Unknown [id number] 2.16.840.1.270450.3.579.2. 73 1946 Unknown [id number] 2.16.840.1.472328.3.579.2. 73 1946 Unknown [id number] 2.16.840.1.671158.3.579.2. 73 1946 Unknown [id number] 2.16.840.1.504221.3.579.2. 73 1946 Unknown [id number] 2.16.840.1.511281.3.579.2. 732 1946 Unknown [id number] 2.16.840.1.850393.3.579.2. 73 1946 Unknown [id number] 2.16.840.1.166404.3.579.2. 732 1946 Unknown [id number] 2.16.840.1.721792.3.579.2. 1946 Unknown [id number] 2.16.840.1.302976.3.579.2. 73 1946 Unknown [id number] 2.16840.1.042488.3.579.2. 1946 Unknown [id number] 2.16.840.1.806055.3.579.2. 1946 Unknown [id number] 2.16840.1.970730.3.579.2. 1946 Unknown [id number] 2.16840.1.715406.3.579.2. 1946 Unknown [id number] 2.16840.1.099421.3.579.2. 1946 Unknown [id number] 2.16.840.1.213617.3.579.2. 1946 Unknown [id number] 2.16.840.1.331158.3.579.2. 1946 Unknown [id number] 2.16.840.1.106133.3.579.2. 73 1946 Unknown [id number] 2.16.840.1.631790.3.579.2. 1946 Unknown [id number] 2.16.840.1.479129.3.579.2. 73 1946 Unknown [id number] 2.16.840.1.031392.3.579.2. 732 1946 Unknown [id number] 2.16.840.1.179632.3.579.2. 732 1946 Unknown [id number] 2.16.840.1.040280.3.579.2. 732 1946 Unknown [id number] 2.16.840.1.985609.3.579.2. 732 1946 Unknown [id number] 2.16.840.1.801854.3.579.2. 732 1946 Unknown [id number] 2.16.840.1.033206.3.579.2. 73 1946 Unknown [id number] 2.16.840.1.204053.3.579.2. 732 1946 Unknown [id number] 2.16.840.1.984531.3.579.2. 73 1946 Unknown [id number] 2.16.840.1.216810.3.579.2. 732 1946 Unknown [id number] 2.16.840.1.347300.3.579.2. 732 1946 Unknown [id number] 2.16.840.1.534608.3.579.2. 732 1946 Unknown [id number] 2.16.840.1.254661.3.579.2. 73 1946 Unknown [id number] 2.16.840.1.195813.3.579.2. 732 1946 Unknown [id number] 2.16.840.1.559617.3.579.2. 732 1946 Unknown [id number] 2.16.840.1.867299.3.579.2. 732 1946 Unknown [id number] 2.16.840.1.283305.3.579.2. 593 1946 Unknown [id number] 2.16.840.1.666317.3.579.2. 593 1946 Unknown [id number] 2.16.840.1.607887.3.579.2. 593 1946 Unknown [id number] 2.16.840.1.412855.3.579.2. 727 1946 Unknown [id number] 2.16.840.1.160787.3.579.2. 1259 1946 Unknown [id number] 2.16.840.1.562125.3.579.2. 1259 1946 Unknown [id number] 2.16.840.1.323658.3.579.2. 1259 1946 Unknown [id number] 2.16.840.1.885027.3.579.2. 1259 1946 Unknown [id number] 2.16.840.1.578875.3.579.2. 125 1946 Unknown [id number] 2.16.840.1.456891.3.579.2. 125 1946 Unknown [id number] 2.16.840.1.272314.3.579.2. 1259 1946 Unknown [id number] 2.16.840.1.186625.3.579.2. 1259 1946 Unknown [id number] 2.16.840.1.954279.3.579.2. 1259 1946 Unknown [id number] 2.16.840.1.981655.3.579.2. 125 1946 Unknown [id number] 2.16.840.1.203904.3.579.2. 125 1946 Unknown [id number] 2.16.840.1.470906.3.579.2. 1259 1946 Unknown [id number] 2.16.840.1.568046.3.579.2. 1259 1946 Unknown [id number] 2.16.840.1.843048.3.579.2. 1259 Social History Date Type Detail Facility Start: 02-12-2023 End: 02-11-2024 Tobacco smoking status NHIS Ex-smoker [facility] End: 07-11-2021 History of tobacco use Current smoker [facility] End: 07-11-2021 History of tobacco use Cigarette Smoker [facility] History of tobacco use Passive smoker [facility] Start: 02-12-2023 End: 02-11-2024 Tobacco use and exposure Smokeless tobacco non-user [facility] Start: 09-10-2023 End: 11-10-2024 Alcohol intake Lifetime non-drinker (finding) [facility] Start: 09-10-2023 End: 04-05-2024 History of Social function [facility] Start: 09-10-2023 End: 04-05-2024 Tobacco use panel [facility] Start: 02-11-2023 Alcohol Comment Caffeine: 1-2 cups/day tea, 7up [facility] Start: 1945 Sex Assigned At Not on file [facility] Start: 03-26-2020 Tobacco smoking status Never s moked tobacco (finding) [facility] Tobacco smoking status Never [facility] How often to you hav e a drink containing alcohol? Never [facility] Clinical Notes 02-07-2021 to 10-18-2024 KHALIF Ortiz - 10/18/2024 1:22 PM ESTTelephone Encounter - Isa Pelaez LPN - 09/20/2024 11:52 AM ESTTelephone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 present in office suite today and is supervising patient care and available for consult. I'm following his plan of care for the above problems. Previous notes and plan were reviewed and followed. documented in this encounter [facility] 07-04-2024 Note Patient: Kei hallman Procedure Information Date/Time: 07/04/24 1000 Procedure: TRANSESOPHAGEAL ECHO (PAVAN) Location: [facility] Vascular Lab Clinical [...] Plan discussed with fellow. Additional Equipment Requests [facility] 06-22-2024 History of Presen t illness Narrative Message from pt requesting a refill on his pain medication. documented in this encounter [facility] 06-03-2024 Note [place] [facility] Note Reason for [...] He was admitted recently on 04/16/2024 to [facility] with worsening legs edema and shortness of [...] Atrial flutter (CMS/HCC), CAD (coronary artery disease), PA (myocardial infarction) (CMS/HCC), and Pulmonary embolism (CMS/HCC). [...] no acute distress (more content not included)... [facility] 05-23-2024 Telephone encounter Note Refill sent [facility] Work Phone: 05-23-2024 Miscellaneous Notes Refill sent documented in this encounter [facility] 05-09-2024 Note [place] [facility] Note Reason for cardiology consult: Congestive heart failure, atrial fibrillation Chief Complaint: legs edema HPI: Kei Acuna is a 78 y.o. male with prior history of chronic atrial fibrillation, hypertension, hyperlipidemia, chronic kidney disease and benign prostate hypertrophy He was admitted recently on 04/16/2024 to [facility] with worsening legs edema and shortness of [...] Atrial flutter (CMS/HCC), CAD (coronary artery disease), PA (myocardial infarction) (CMS/HCC), and Pulmonary embolism (CMS/HCC). [...] no JVD pr (more content not included)... [facility] 10-15-2023 History of Presen t illness Narrative Patient: Kei Acuna : 1945 [...] edema. Discussed condition in detail. Recommendation for [id number] compression stockings at this time and may consider prescription stockings in the future. Patient is to begin with [id number] compression stockings and discussed where to purchase today Gigi Yu DPM documented in this encounter [facility] 09-15-2023 Hospital Discharg e instructions Follow Up Care 09/15/2023 10:44:19 With:BYRON MCCLOUD, Lincoln Patricia, URL Address: [facility] [address], [place] [address] [phone] When: Unknown [facility] [place] 02-28-2021 Note [facility] 02-07-2021 Note Problem: Restraint: Goal: Remain safe while in restraints and once discontinued Outcome: Progressing Restraints needed to maintain safety/airway [facility] Evaluation + Plan note No data available for this section [facility] [place] Evaluation note Diagnosis Venous insufficiency- Primary Unspecified venous (peripheral) insufficiency Other polyneuropathy Onychomycosis Dermatophytosis of nail Toe pain, right Pain in soft tissues of limb Toe pain, left Pain in soft tissues of limb DJD (degenerative joint disease), ankle and foot, left documented in this encounter [facility]* Diagnosis Chronic pain syndrome- Primary Chronic combined systolic and diastolic congestive heart failure, NYHA class 2 (CMS/HCC) Essential hypertension ([facility]/HCC) Unspecified essential hypertension documented in this encounter [facility] note* Diagnosis Chronic combined systolic and diastolic congestive heart failure, NYHA class 2 (CMS/HCC)- Primary Atherosclerosis of coronary artery of [place] heart without angina pectoris, unspecified vessel or lesion type (CMS/HCC) Essential hypertension (CMS/HCC) Unspecified essential hypertension Paroxysmal atrial fibrillation (CMS/HCC) Atrial fibrillation Peripheral vascular disease (CMS/HCC) Unspecified peripheral vascular disease ASD (atrial septal defect) Ostium secundum type atrial septal defect Hyperuricemia Other abnormal blood chemistry Chronic obstructive pulmonary disease, unspecified COPD type ([facility]/HCC) Chronic pain syndrome documented in this encounter [facility] Healthcare[facility] note* Diagnosis Chronic pain syndrome documented in this encounter [facility] note* Diagnosis Hypothyroidism (acquired) (CMS/HCC)- Primary Unspecified hypothyroidism Bilateral leg edema Edema Chronic combined systolic and diastolic congestive heart failure, NYHA class 2 (CMS/HCC) Essential hypertension (CMS/HCC) Unspecified essential hypertension Paroxysmal atrial fibrillation (CMS/HCC) Atrial fibrillation Chronic obstructive pulmonary disease, unspecified COPD type (CMS/HCC) Dermatitis Contact dermatitis and other eczema, due to unspecified cause documented [facility] encounter [facility]* Diagnosis Contusion of left foot, initial encounter- Primary Verruca plantaris Plantar wart Foot pain, left Pain in soft tissues of limb Other polyneuropathy Onychomycosis Dermatophytosis of nail Toe pain, right Pain in soft tissues of limb Toe pain, left Pain in soft tissues of limb DJD (degenerative joint disease), ankle and foot, left documented [facility] this encounter [facility]* Diagnosis Hypothyroidism (acquired) (CMS/HCC) Unspecified hypothyroidism documented [facility] this encounter [facility]* Diagnosis Chronic combined systolic and diastolic congestive heart failure, NYHA class 2 (CMS/HCC)- Primary Paroxysmal atrial fibrillation (CMS/HCC) Atrial fibrillation Other thrombophilia (CMS/HCC) Thrombocytopenia, unspecified (CMS/HCC) Thrombocytopenia, unspecified Chronic pain syndrome Essential hypertension (CMS/HCC) Unspecified essential hypertension Mixed hyperlipidemia (CMS/HCC) Mixed hyperlipidemia Hypothyroidism (acquired) (CMS/HCC) Unspecified hypothyroidism Prostate cancer screening Special screening for malignant neoplasm of prostate documented in this encounter [facility]* Diagnosis Chronic pain syndrome documented in this encounter [facility]* Diagnosis Chronic pain syndrome- Primary Chronic obstructive pulmonary disease, unspecified COPD type (CMS/HCC) Essential hypertension (CMS/HCC) Unspecified essential hypertension Atherosclerosis of coronary artery of [place] heart without angina pectoris, unspecified vessel or lesion type (CMS/HCC) Chronic combined systolic and diastolic congestive heart failure, NYHA class 2 (CMS/HCC) Elevated prostate specific antigen (PSA) Hypercoagulable state (CMS/HCC) Primary hypercoagulable state Mixed hyperlipidemia (CMS/HCC) Mixed hyperlipidemia Hyperuricemia Other abnormal blood chemistry Peripheral vascular disease (CMS/HCC) Unspecified peripheral vascular disease documented [facility]* Diagnosis Chronic pain syndrome Chronic obstructive pulmonary disease, unspecified COPD type (CMS/HCC) documented in this encounter [facility]* Diagnosis Contusion of left foot, initial encounter- Primary DJD (degenerative joint disease), ankle and foot, left Verruca plantaris Plantar wart Foot pain, left Pain in soft tissues of limb Onychomycosis Dermatophytosis of nail Toe pain, bilateral Other polyneuropathy documented in this [facility]* Diagnosis Essential hypertension (CMS/HCC) Unspecified essential hypertension documented in this encounter [facility]* Diagnosis Contusion of left foot, initial encounter- Primary DJD (degenerative joint disease), ankle and foot, left Verruca plantaris Plantar wart Foot pain, left Pain in soft tissues of limb Onychomycosis Dermatophytosis of nail Toe pain, bilateral Other polyneuropathy Chronic pain syndrome documented in this encounter [facility]* Diagnosis Chronic pain syndrome documented in this encounter [facility]* Diagnosis Chronic pain syndrome documented in this encounter [facility]* Diagnosis 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) (CMS/HCC) Chronic obstructive asthma, unspecified documented [facility]* Diagnosis Essential hypertension (CMS/HCC)- Primary Unspecified essential hypertension Chronic pain syndrome Atherosclerosis of coronary artery of [place] heart without angina pectoris, unspecified vessel or lesion type (CMS/HCC) documented in this encounter [facility]* Diagnosis Chronic combined systolic (congestive) and diastolic (congestive) heart failure (CMS/HCC)- Primary ASD (atrial septal defect) Ostium secundum type atrial septal defect Atherosclerosis of coronary artery of [place] heart without angina pectoris, unspecified vessel or lesion type (CMS/HCC) Paroxysmal atrial fibrillation (CMS/HCC) Atrial fibrillation Peripheral vascular disease (CMS/HCC) Unspecified peripheral vascular disease Essential hypertension (CMS/HCC) Unspecified essential hypertension Hypothyroidism (acquired) (CMS/HCC) Unspecified hypothyroidism Hypercoagulable state (CMS/HCC) Primary hypercoagulable state Mixed hyperlipidemia (CMS/HCC) Mixed hyperlipidemia Hyperuricemia Other abnormal blood chemistry Chronic kidney disease, stage 3b (HCC) (CMS/HCC) Chronic pain syndrome documented [facility] encounter [facility]* Gigi Yu DPM - 05/19/2024 1:50 PM EDT Patient: Kei Barnes Kalpana : 1945 PCP: Jake A Shu, DO SUBJECTIVE Patient presents today for follow up of skin lesion/neoplasm of unknown origin to the left foot Pt states that previous treatment of acid tx with some improvement Pt rates pain the pain on a 1-10 scale an intensity of 3 Pt presents today for followup. Patient also has history of degenerative joint disease to left ankle as well as fracture in the past. Previous appointment discussed [id number] inserts and patient has AFO but is unable to wear Patient also has black spot to left second digit nail with negative pain or drainage and was present on prior visit . Some pain to the nail from time to time but denies any lifting of the nail Patient presents today with a CC of elongated, thick nails. Pt states nails have been elongated and thick for many years and cause pain with ambulation in shoegear. Pt has tried previous treatment with minimal relief. Pt presents today for nail care and treatment. Patient has positive history of peripheral neuropathy Patient states recent hospitalization due to possible infection and cellulitis to legs but denies any issues today and denies nausea vomiting chills Allergies: Allergies Allergen Reactions Sulfa Antibiotics Rash [...] Medications: albuterol HFA 90 mcg/act inhaler, INHALE 1 PUFF EVERY 4 HOURS NEEDED FOR SHORTNESS OF BREATH/WHEEZING, Disp: 18 g, Rfl: 3 apixaban (Eliquis) 5 MG tablet, TAKE ONE [...] Disp: 180 tablet, Rfl: 3 cholecalciferol (Vitamin D3) 25 MCG (1000 UT) tablet, Take 1 tablet (25 mcg) by mouth Daily as directed, Disp: 90 tablet, Rfl: 3 diclofenac sodium 1 % gel, APPLY TO AFFECTED AREA ON KNEE AND BACK 4 TIMES DAILY, Disp: 100 g, Rfl:5 Fluticasone Furoate-Vilanterol (Breo Ellipta) 100-25 MCG/ACT aerosol powder , 1 puff in the morning., Disp: , Rfl: furosemide (Lasix) 40 MG tablet, Take 1 tablet (40 mg) by mouth in the morning., Disp: 90 tablet, Rfl: 3 gabapentin (Neurontin) 300 MG capsule, TAKE ONE CAPSULE BY MOUTH TWICE DAILY, Disp: 180 capsule, Rfl: 3 hydrocortisone 1 % cream, Apply topically 2 (two) times a day., Disp: , Rfl: ipratropium-albuterol (Duo-Neb) 0.5-2.5 mg/3 mL nebulizer solution, Take 3 mL by nebulization in the morning and 3 mL at noon and 3 mL in the evening and 3 mL before bedtime., Disp: , Rfl: losartan (Cozaar) 25 MG tablet, Take 25 mg by mouth Daily, Disp: , Rfl: metoprolol succinate XL (Toprol-XL) 50 MG 24 hr tablet, Take 50 mg by mouth Daily, Disp: , Rfl: omeprazole (PriLOSEC) [address] capsule, TAKE 1 CAPSULE BY MOUTH ONCE DAILY, Disp: 90 capsule, Rfl: 3 oxyCODONE (Roxicodone) 10 MG immediate release tablet, Take 1 tablet (10 mg) by mouth in the morning and 1 tablet (10 mg) in the evening and 1 tablet (10 mg) before bedtime., Disp: 90 tablet, Rfl: 0 Respiratory Therapy Supplies (Nebulizer/Tubing/Mouthpiece) kit, , Disp: , Rfl: simvastatin (Zocor) 40 MG tablet, TAKE 1 TABLET BY MOUTH AT BEDTIME, Disp: 90 tablet, Rfl: 3 tamsulosin (Flomax) 0.4 MG 24 hr capsule, TAKE 1 CAPSULE BY MOUTH ONCE DAILY 30 MINUTES AFTER THE SAME MEAL, Disp: 90 capsule, Rfl: 3 tiotropium (Spiriva HandiHaler) 18 MCG inhalation capsule, Place 1 capsule (18 mcg) into inhaler and inhale in the morning., Disp: 30 capsule, Rfl: 10 tiZANidine (Zanaflex) 4 MG tablet, TAKE ONE TABLET BY MOUTH TWICE DAILY NEEDED, Disp: 180 tablet, Rfl: 3 traZODone (Desyrel) 100 MG tablet, TAKE 1 TABLET BY MOUTH EVERY DAY AT BEDTIME NEEDED, Disp: 90 tablet, Rfl: 3 Social History: Social History Socioeconomic History Marital status: Spouse name: Not on file Number of children: Not on file Years of education: Not on file Highest education level: Not on file Occupational History Not on file Tobacco Use Smoking status: Former Current packs/day: 0.00 Types: Cigarettes Quit date: 07/11/2021 Years since quittin.8 Passive exposure: Past Smokeless tobacco: Never Vaping Use Vaping status: Unknown Substance and Sexual Activity Alcohol use: [...] through 10. Positive hair growth b/l feet. Plusone pitting edema to bilateral ankles Large black area underneath the left 2nd digit nail with negative drainage and negative erythema with no lifting to the nail. Dry black specks underneath the nail with negative drainage or erythema Nummular lesion measuring at the left heel measuring 0.1m x 0.1cm. VASC: Positive palpable pedal pulses bilaterally NEURO: Gross sensation diminished to bilateral feet ORTHO: Positive pain on palpation to nails 1 through 10 Deformity to left ankle with pes planovalgus left secondary to the ankle fracture in past Minimal pain on palpation left tibiotalar joint Positive pain on palpation to left heel lesion Negative pain on palpation left 2nd digit nail ASSESSMENT 1. Contusion of left foot, initial encounter 2. DJD (degenerative joint disease), ankle and foot, left 3. Verruca plantaris 4. Foot pain, left 5. Onychomycosis 6. Toe pain, bilateral 7. Other polyneuropathy PLAN Patient to continue with oral anti - inflammatories as needed for pain and recommended OTC medications such as tylenol or Ibuprofen Patient observe for any changes left 2nd toenail has any issues as far as drainage lifting nail to contact Podiatry for further treatment. Application of salinocaine acid medication to lesion/lesions located at left foot Informed pt of risks and benefits of procedure including high reoccurence rate, infection, pain andconsent given. Application of DSD post procedure. Discussed proper foot care with patient today. Debride nails in length and thickness digits 1 through 10 Gigi Yu DPM [facility] No data available for this section [facility] Thu Summary Purpose Family History No Family History Records FoundNo Family History Records FoundNo Family History Records FoundNo Family History Records FoundNo Family History Records Found No data available for this section No Family History Records FoundNo Family History Records FoundNo Family History Records Found Advance Directives Date Activated Date Inactivated Comments 04/05/2024 3:21 PM Additional Source Comments (unrecognized sect ion and content) No Status Records FoundNo Status Records FoundNo Status Records FoundNo Status Records FoundNo Status Records FoundNo Status Records FoundNo Status Records FoundNo Status Records Found INFORMATION SOURCE (unrecogn ized section and content) DATE CREATED AUTHOR 04/11/2020 [facility] DATE CREATED AUTHOR AUTHOR'S ORGANIZ ATION 09/23/2021 [facility] DATE CREATED AUTHOR AUTHOR'S ORGANIZ ATION 10/07/2021 [facility] DATE CREATED AUTHOR AUTHOR'S ORGANIZ ATION 10/18/2021 [facility] dical Specialist DATE CREATED AUTHOR AUTHOR'S ORGANIZ ATION 11/17/2022 [facility] DATE CREATED AUTHOR AUTHOR'S ORGANIZ ATION 12/01/2023 [facility] DATE CREATED AUTHOR AUTHOR'S ORGANIZ ATION 07/19/2024 [facility] DATE CREATED AUTHOR AUTHOR'S ORGANIZ ATION 08/14/2024 [facility] dical Specialists EPIC Care Teams (unrecognized sec tion and content) Teletype Mechanic Relationship Specialty Start Date End Date Jake Ireland DO [address] [place] [address] PCP - General Internal Medicine 01/29/23 Jake Ireland DO [address] [place] [address] PCP - Toña TELLEZ 05/01/23 Teletype Mechanic Relationship Specialty Start Date End Date Jake Ireland DO [address] [place] [address] PCP - General Internal Medicine 01/29/23 Jake Ireland DO [address] [place] [address] PCP - Toña TELLEZ 05/01/23 Teletype Mechanic Relationship Specialty Start Date End Date Jake Ireland DO [address] [place] [address] PCP - General Internal Medicine 01/29/23 Jake Ireland DO [address] [place] [address] PCP - Toña TELLEZ 05/01/23 Joe Chavez MD [address] [place] [id number] Referring Physician Ophthalmology 04/05/24 Teletype Mechanic Relationship Specialty Start Date End Date Jake Ireland DO [address] [place] [address] PCP - General Internal Medicine 01/29/23 Jake Ireland DO [address] [place] [address] PCP - Toña TELLEZ 05/01/23 Joe Chavez MD [address] [place] [address] Referring Physician Ophthalmology 04/05/24 Anamaria Doll, FAB Registered Nurse Family Medicine 06/29/24 Teletype Mechanic Relationship Specialty Start Date End Date Jake Ireland DO [address] [place] [address] PCP - General Internal Medicine 01/29/23 Jake Ireland DO [address] [facility] [address] [place] [address] PCP - Toña TELLEZ 05/01/23 Joe Chavez MD [address] [place] [address] Referring Physician Ophthalmology 04/05/24 Anamaria Doll, FAB Registered Nurse Family Medicine 06/29/24 Teletype Mechanic Relationship Specialty Start Date End Date Jake Ireland DO [address] [facility] [address] [place] [address] PCP - General Internal Medicine 01/29/23 Jake Ireland DO [address] [place] [address] [place] [address] PCP Fuentes Ding MA 05/01/23 Joe Chavez MD [address] [place] [address] Referring Physician Ophthalmology 04/05/24 Anamaria Doll, FAB Registered Nurse Family Medicine 06/29/24 Teletype Mechanic Relationship Specialty Start Date End Date Jake Ireland DO [address] [place] [address] [place] [address] PCP - General Internal Medicine 01/29/23 Jake Ireland DO [address] [place] [address] [place] [address] PCP - Toña TELLEZ 05/01/23 Joe Chavez MD [facility] [place] [address] Referring Physician Ophthalmology 04/05/24 Anamaria Doll RN Registered Nurse Family Medicine 06/29/24 Teletype Mechanic Relationship Specialty Start Date End Date Jake Ireland DO [address] [place] [address] [place] [address] PCP - General Internal Medicine 01/29/23 Jake Ireland DO [address] [place] [address] [place] [address] PCP - Toña TELLEZ 05/01/23 Joe Chavez MD [address] [place] [address] Referring Physician Ophthalmology 04/05/24 Anamaria Doll RN Registered Nurse Family Medicine 06/29/24 Teletype Mechanic Relationship Specialty Start Date End Date Jake Ireland DO [address] [place] [address] [place] [address] PCP - General Internal Medicine 01/29/23 Jake Ireland DO [address] [place] [address] [place] [address] PCP - Toña TELLEZ 05/01/23 Joe Chavez MD [address] [place] [address] Referring Physician Ophthalmology 04/05/24 Anamaria Doll, FAB Registered Nurse Family Medicine 06/29/24 Teletype Mechanic Relationship Specialty Start Date End Date Jake Ireland DO [address] [place] [address] [place] [address] PCP - General Internal Medicine 01/29/23 Jake Ireland DO [address] [place] [address] [place] [address] PCP - Toña TELLEZ 05/01/23 Joe Chavez MD [address] [place] [address] Referring Physician Ophthalmology 04/05/24 Anamaria Doll, FAB Registered Nurse Family Medicine 06/29/24 Teletype Mechanic Relationship Specialty Start Date End Date Jake Ireland DO [address] [place] [address] [place] [address] PCP - General Internal Medicine 01/29/23 Jake Ireland DO [address] [place] [address] [place] [address] PCP Fuentes Ding MA 05/01/23 Joe Chavez MD [address] [place] [address] Referring Physician Ophthalmology 04/05/24 Teletype Mechanic Relationship Specialty Start Date End Date Jake Ireland DO [address] [place] [address] [place] [address] PCP - General Internal Medicine 01/29/23 Jake Ireland DO [address] [place] [address] [place] [address] PCP - Toña TELLEZ 05/01/23 Joe Chavez MD [address] [place] [address] Referring Physician Ophthalmology 04/05/24 Teletype Mechanic Relationship Specialty Start Date End Date Jake Ireland DO [address] [place] [address] [place] [address] PCP - General Internal Medicine 01/29/23 Jake Ireland DO [address] [place] [address] [place] [address] PCP Fuentes Ding MA 05/01/23 Joe Chavez MD [address] [place] [address] Referring Physician Ophthalmology 04/05/24 Teletype Mechanic Relationship Specialty Start Date End Date Jake Ireland DO [address] [place] [address] [place] [address] PCP - General Internal Medicine 01/29/23 Jake Ireland, DO [address] [place] [address] [place] [address] PCP - Toña TELLEZ 05/01/23 Joe Chavez MD [address] [place] [address] Referring Physician Ophthalmology 04/05/24 Teletype Mechanic Relationship Specialty Start Date End Date Jake Ireland, DO [address] [place] [address] [place] [address] PCP - General Internal Medicine 01/29/23 Jake Ireland, DO [address] [place] [address] [place] [address] PCP - Toña TELLEZ 05/01/23 Joe Chavez MD [address] [place] [address] Referring Physician Ophthalmology 04/05/24 Teletype Mechanic Relationship Specialty Start Date End Date Jake Ireland, DO [address] [facility] [address] [place] [address] PCP - General Internal Medicine 01/29/23 Jake Ireland, DO [address] [place] [address] [place] [address] PCP - Toña TELLEZ 05/01/23 Joe Chavez MD [address] [place] [address] Referring Physician Ophthalmology 04/05/24 Anamaria Doll, RN Registered Nurse Family Medicine 06/29/24 Teletype Mechanic Relationship Specialty Start Date End Date Jake Ireland DO [address] [place] [address] [place] [address] PCP - General Internal Medicine 01/29/23 Joe Chavez MD [facility] [place] [address] Referring Physician Ophthalmology 04/05/24 Anamaria Doll, FAB Registered Nurse Family Medicine 06/29/24 Teletype Mechanic Relationship Specialty Start Date End Date Jake Ireland DO [address] [place] [address] PCP - General Internal Medicine 01/29/23 Jake Ireland DO [address] [place] [address] [place] [address] PCP - Toña TELLEZ 05/01/23 Joe Chavez MD [facility] [place] [address] Referring Physician Ophthalmology 04/05/24 Anamaria Doll, FAB Registered Nurse Family Medicine 06/29/24 Teletype Mechanic Relationship Specialty Start Date End Date Jake Ireland DO [address] [place] [address] PCP - General Internal Medicine 01/29/23 Jake Ireland DO [address] [place] [address] PCP Fuentes Ding MA 05/01/23 Joe Chavez MD [address] [place] [address] Referring Physician Ophthalmology 04/05/24 Anamaria Doll, RN Registered Nurse Family Medicine 06/29/24 Reason for Visit (unrecogniz ed section and content) Reason Comments Toenail Care Non DM Nails Reason Comments 3 mos ov controlled Pt presents med refi lls at this time. Pt went to the ER yesterday at [facility] for irregular heart beat. They stopped him on losartan and metoprolol Leg Swelling Pt states he is havi ng the swelling of the legs, his RT lower leg/foot is swelling up and has some redness. Shaking Pt states he is delon le shaky at times. He states he notices more in his right hand, onset 2 months Reason Comments 1 week follow up Pt presents 1 week f ollow up, pt had labs done to review. Pt was seen last feel for bilateral lower extremity edema. Started on new medication, will see if he started it. states she has been applying the twice a day and has been looking better. Although today, they forget to apply the cream. Reason Comments Toenail Problem Non dm nail care Reason Comments Med Refill Reason Comments 3 week follow-up Pt is here for 3 wee k follow up to check on edema on his lower extremities. Reason Onset Date Comments Med Refill 04/25/2024 Reason Comments Hospital Follow-up Patient presents [facility] for a [facility] ER follow up 04/18/24 for heart failure. Bilateral lower leg edema and redness. States he has pain in both legs. Reason Comments Toenail Care Non dm nail care Reason Onset Date Comments Med Refill 05/19/2024 Reason Onset Date Comments Med Refill 08/19/2024 Reason Comments Med Change Request Reason Onset Date Comments Med Refill 09/20/2024 Reason Comments 3 month follow up Pt is being seen [facility] for his/her month follow up and managment of his/her chronic conditions. Pt had lab work done in preparations for todays visit, results and recommendations will be reviewed with them. left shoulder pain Edema FOR RECORDS PERTAINING TO PATIENTS WHO ARE [...] BE BASED ON THE PRIMARY CLINICAL RECORDS. [facility] EHR [facility]. provides no warranty or guarantee of the accuracy or completeness of information in this document.
--- NOTE | 2024-11-12 23:15 | ECG_ITS ---
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 Measurements Intervals [place] Rate: -[id number] P: -70224 [place]: -93367 QRS: -19796 QRSD: -82626 T: -51896 QT: -32052 QTc: -22516 Interpretive Statements Asystole Abnormal ECG Compared to ECG 09/14/2024 14:42:53 Significant changes have occurred Electronically Signed On 11-13-2024 7:18:09 EDT by ROMMEL RUSSO M.D.
--- NOTE | 2024-11-12 23:18 | ED_ITS ---
HPI HPI - General Adult General Stated complaint: CARDIAC ARREST Time Seen by Provider: 11/12/24 23:17 History of Present Illness HPI narrative: 79 male with reported history of heart disease. Family her a fall in the bathroom and found him unresponsive and started CPR. Squad pulled him out of the bathroom and continued CPR. they also placed airway and established IO left mayo and IV left arm. He was given 1mg epi x 2 via IO and 1mg x2 via IV prior to arrival. He remained in asystole. He was shocked once for possible fine V. fib without response. Arrives here 30-40 minutes later in full arrest. Monitor with continued asystole. CPR continued. patient given extra 1mg epi IV x2 4 minutes apart and remained in asystole and no pulse ever felt. code called at 11:15PM still waiting for family to show up Related Data Home Medications ?Medication ?Instructions ?Recorded ?Confirmed albuterol sulfate 90 mcg/actuation 2 inh inhalation Q8H PRN shortness 04/16/24 05/04/24 aerosol inhaler of breath or wheezing apixaban 5 mg tablet (Eliquis) 5 mg PO BID 04/16/24 05/04/24 aspirin 81 mg chewable tablet 1 tab PO DAILY 04/16/24 05/04/24 calcium carbonate 600 mg PO DAILY 04/16/24 05/04/24 cholecalciferol (vitamin D3) 25 1,000 unit PO DAILY 04/16/24 05/04/24 mcg (1,000 unit) tablet gabapentin 300 mg capsule 300 mg PO BID 04/16/24 05/04/24 omeprazole 40 mg capsule,delayed 40 mg PO DAILY 04/16/24 05/04/24 release oxycodone 10 mg tablet 5 mg PO TID 04/16/24 05/04/24 simvastatin 40 mg tablet 40 mg PO DAILY 04/16/24 05/04/24 tamsulosin 0.4 mg capsule 0.4 mg PO DAILY 04/16/24 05/04/24 tiotropium bromide 18 mcg capsule 1 cap inhalation DAILY 04/16/24 05/04/24 with inhalation device tizanidine 4 mg tablet 4 mg PO BID PRN muscle spasticity 04/16/24 05/04/24 trazodone 100 mg tablet 100 mg PO BEDTIME PRN insomnia 04/16/24 05/04/24 diclofenac sodium 1 % topical gel 2 g topical QID 05/04/24 05/04/24 furosemide 40 mg tablet 40 mg PO DAILY 05/04/24 05/04/24 Previous Rx's ?Medication ?Instructions ?Recorded clindamycin HCl 300 mg capsule 300 mg PO Q6H 7 days #28 caps 04/18/24 losartan 25 mg tablet 25 mg PO DAILY #30 tabs 04/18/24 metoprolol succinate 50 mg 50 mg PO DAILY #30 tabs 04/18/24 tablet,extended release 24 hr (Toprol XL) cefdinir 300 mg capsule 300 mg PO BID 10 days #20 caps 09/14/24 methylprednisolone 4 mg tablets in See Rx Instructions .Route 09/14/24 a dose pack (Medrol ([place])) .COMPLEX #21 ea Allergies Allergy/AdvReac Type Severity Reaction Status Date / Time Sulfa (Sulfonamide AdvReac Mild Hives Verified 09/14/24 14:36 Antibiotics) Opioid HPI Opioid Management Most Recent Opioid Data: Last Pain Scale 7 04/18/24 06:00 04/18/24 Last ORT Total Score 0 04/17/24 00:23 04/17/24 Last ORT Risk Category Low Risk 04/17/24 00:23 04/17/24 Review of Systems ROS Status of ROS other (full code) [facility] Medical History (Updated 11/13/24 @ 00:04 by Darrell Mcnally MD) Bilateral cellulitis of lower leg ?L03.116 - Cellulitis of left lower limb (ICD-10) ?L03.115 - Cellulitis of right lower limb (ICD-10) Congestive heart failure ?I50.9 - Heart failure, unspecified (ICD-10) Peripheral edema ?R60.0 - Localized edema (ICD-10) H/O: CVA (cerebrovascular accident) ?Z86.73 - Personal history of transient ischemic attack (TIA), and cerebral infarction without residual deficits (ICD-10) Afib ?I48.91 - Unspecified atrial fibrillation (ICD-10) HLD (hyperlipidemia) ?E78.5 - Hyperlipidemia, unspecified (ICD-10) COPD (chronic obstructive pulmonary disease) ?J44.9 - Chronic obstructive pulmonary disease, unspecified (ICD-10) Social History Within the past year, how often did you have a drink containing alcohol: monthly or less Within the past year, how many standard drinks containing alcohol did you have on a typical day: 1 or 2 Total score: 0 Score interpretation: A score less than 4 is consistent with normal alcohol consumption. Non-prescribed substance use: denies use Highest level of school completed/degree received: high school graduate Little interest or pleasure in doing things: not at all Feeling down, depressed, or hopeless: not at all Exam Constitutional Other: IGEL airway in place. bagging easily HENMT Other: no obvious head trauma Cardio Other: no cardia tones GI Common normals: soft to palpation Extremity Other: bilat lower ext edema. IO left superior mayo Neuro Other: full code Medical Decision Making MDM Narrative Medical decision making narrative: patient arrives in full code status with IGEL airway in place. no response to ACLS protocol including epi x 4 prior to arrival and defibrillated once for possible find V. fib without response. ACLS protocol continued in the department . given extra 1mg of epi x 2 . No response and continue rhythm of A. Systole. Code called at 11:15m Discussed with his and his son who were at the scene. states he has had past TN. also history of CHF. They did not want to see his body. 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 case Discharge Plan Discharge Clinical Impression: Cardiac arrest due to underlying cardiac condition Patient Disposition: Prescriptions / Home Meds: No Action tizanidine 4 mg tablet 4 mg PO BID PRN (Reason: muscle spasticity) omeprazole 40 mg capsule,delayed release(DR/EC) 40 mg PO DAILY simvastatin 40 mg tablet 40 mg PO DAILY calcium carbonate 600 mg calcium (1,500 mg) tablet 600 mg PO DAILY tamsulosin 0.4 mg capsule 0.4 mg PO DAILY trazodone 100 mg tablet 100 mg PO BEDTIME PRN (Reason: insomnia) gabapentin 300 mg capsule 300 mg PO BID aspirin 81 mg tablet,chewable 1 tab PO DAILY albuterol sulfate 90 mcg/actuation HFA aerosol inhaler 2 inh INHALATION Q8H PRN (Reason: shortness of breath or wheezing) tiotropium bromide 18 mcg capsule, w/inhalation device 1 cap INHALATION DAILY cholecalciferol (vitamin D3) 25 mcg (1,000 unit) tablet 1,000 unit PO DAILY oxycodone 10 mg tablet 5 mg PO TID Eliquis 5 mg tablet 5 mg PO BID losartan 25 mg tablet 25 mg PO DAILY Qty: 30 0RF metoprolol succinate [Toprol XL] 50 mg tablet extended release 24 hr 50 mg PO DAILY Qty: 30 0RF clindamycin HCl 300 mg capsule 300 mg PO Q6H 7 Days Qty: 28 0RF Patient Comments: 04/28/24-05/04/24 diclofenac sodium 1 % gel 2 g TOPICAL QID Rx Instructions: apply to knee and back furosemide 40 mg tablet 40 mg PO DAILY methylprednisolone [Medrol ([place])] 4 mg tablets,dose pack See Rx Instructions .ROUTE .COMPLEX Qty: 21 0RF Rx Instructions: Taper as directed cefdinir 300 mg capsule 300 mg PO BID 10 Days Qty: 20 0RF Print Language: Ukrainian Referrals: KARTHIK IRELAND [Primary Care Provider] - 1 week Probable Cause of Probable Cause of : Cardiac arrest due to underlying cardiac condition
--- NOTE | 2024-11-13 00:17 | PC.NURSE ---
8236: [facility] called. referral #[id number]
== END 2024-11-13 01:44 | disposition expired ==
PROVIDERS: Emergency Provider Internal Medicine; PCP Internal Medicine
DX: I51.9 Heart disease, unspecified (principal); I46.2 Cardiac arrest due to underlying cardiac condition; I50.9 Heart failure, unspecified; I25.2 Old myocardial infarction
CPT/HCPCS: 92950; 93005; 99285; J0171